=== PATIENT | female | born 1930 | race Hispanic/Latino ===

== ENCOUNTER 2016-10-10 06:30 | Emergency (ER) | payer MEDICARE ==
[2016-10-10 06:30] VITALS: BMI 17.2
[2016-10-10 06:54] VITALS: TEMP 98; O2SAT 96
[2016-10-10] MEDS ORDERED: Iohexol 240 (50 ml) ONE (07:42)
--- NOTE | 2016-10-10 07:53 | C.PDOC ---
History Of Present Illness 86-year-old female, presents to the emergency department with complaints of dysfunctional peg tube. Patient reports her peg tube came out at 02:00 this morning. Last use late evening. No other associated symptoms. All other Hx limited due to dementia. POOR HISTORIAN DUE TO DEMENTIA PS TUBE CAME OUT @ 0200, LAST USE LATE EVENING. NO OTHER ASSOC SX EXAM NAD NONTOXIC ABD +PEG OS, NO FLUID DC NONTEND. ABD NONTEND SOFT NO R/G NEURO AO2, DEMENTIA Time Seen by Provider: 10/10/16 07:11 Chief Complaint (Nursing): Medical Clearance History Per: Patient History/Exam Limitations: no limitations Onset/Duration Of Symptoms: Days Current Symptoms Are (Timing): Still Present Severity: Moderate Past Medical History Reviewed: Historical Data, Nursing Documentation, Vital Signs Vital Signs: Last Vital Signs Temp 98 F 10/10/16 06:48 Pulse 94 H 10/10/16 06:48 Resp 14 10/10/16 06:48 BP 166/81 H 10/10/16 06:48 Pulse Ox 96 10/10/16 08:08 - Medical History PMH: Anxiety, Arthritis, Bronchitis, CAD, Cardia Arrhythmia, CHF, COPD, Diabetes , GERD (esophageal stricture), HTN, Hypercholesterolemia, Osteoporosis, Pneumonia, Rheumatoid Arthritis Denies: Hepatitis, HIV, Chronic Kidney Disease, Seizures, Sexually Transmitted Disease Surgical History: CABG (12/16/1991), Carotid Endarterectomy (06/13/05), Coronary Stent, Pacemaker - [facility] Procedures CHANGE OTHER DEVICE IN ABDOMINAL WALL, EXTERNAL APPROACH (08/03/15) CONTR CEREBR ARTERIOGRAM (06/13/05) CONTRAST AORTOGRAM (06/13/05) CONTRAST ARTERIOGRAM NEC (05/23/12) CORONAR ARTERIOGR-2 CATH (05/23/12) ENDOSC POLYPECTOMY OF LG INTEST (06/28/14) ENTERAL INFUSION OF CONCENTRATED NUT. SUBSTANCES (10/01/14) HEAD & NECK ENDARTER NEC (06/13/05) INJECT ANTICOAGULANT (06/13/05) INSERT PACE, SINGL HAYLEY IN CHEST SUBCU/FASCIA, OPEN (03/05/16) INSERTION OF ENDOTRACHEAL AIRWAY INTO TRACHEA, VIA OPENING (03/05/16) INSERTION OF INFUSION DEV INTO SUP VENA CAVA, PERC APPROACH (03/05/16) INSERTION OF ONE VASCULAR STENT (05/23/12) INSERTION OF PACEMAKER LEAD INTO R VENTRICLE, PERC APPROACH (03/05/16) INSRT OF DRUG-ELUTING CORON ARTERY STENTS(S) (05/23/12) INTRODUCTION OF NUTRITIONAL INTO UP GI, VIA OPENING (03/05/16) INTRODUCTION OF VASOPRESSOR INTO CENTRAL VEIN, PERC APPROACH (03/05/16) LEFT HEART CARDIAC CATH (05/23/12) LT HEART ANGIOCARDIOGRAM (05/23/12) PACKED CELL TRANSFUSION (06/28/14) PERCUTANEOUS TRANSLUMINAL CORONARY ANGIOPLASTY [PTCA] (05/23/12) PERCUTANEOUS [ENDOSCOPIC] GASTROSTOMY [PEG] (10/01/14) PERFORMANCE OF CARDIAC PACING, CONTINUOUS (03/05/16) PROCEDURE ON SINGLE VESSEL (05/23/12) REPLACE GASTROSTOMY TUBE (02/09/15) RESPIRATORY VENTILATION, 24-96 CONSECUTIVE HOURS (03/05/16) Family History: States: Unknown Family Hx - Social History Hx Tobacco Use: No Hx Alcohol Use: No Hx Substance Use: No - Immunization History Hx Tetanus Toxoid Vaccination: No Hx Influenza Vaccination: No Hx Pneumococcal Vaccination: No Review Of Systems Except As Marked, All Systems Reviewed And Found Negative. Constitutional: Negative for: Fever, Chills Respiratory: Negative for: Shortness of Breath Gastrointestinal: Negative for: Vomiting Skin: Negative for: Rash Neurological: Negative for: Headache Physical Exam - Physical Exam Appears: Non-toxic, No Acute Distress Skin: Warm, Dry, No Rash Head: Atraumatic, Normacephalic Eye(s): bilateral: Normal Inspection, PERRL Nose: Normal Oral Mucosa: Moist Lips: Normal Appearing Neck: Normal ROM Cardiovascular: Rhythm Regular Respiratory: Normal Breath Sounds, No Accessory Muscle Use Gastrointestinal/Abdominal: No Tenderness, No Guarding, No Rebound, Other (+PEG OS, NO FLUID DC NONTEND. ABD NONTEND SOFT NO R/G) Extremity: Normal ROM Neurological/Psych: Other (DEMENTIA. AOX2) ED Course And Treatment O2 Sat by Pulse Oximetry: 96 - Other Rad ABD X-Ray: Interpreted by Me (+GASTROGRAFFIN IN STOMACH) Progress - Re-Evaluation Re-evaluation Note: 10/10/16 08:08 PER OLD ER RECORDS, REPLACED W TONYA 20F IN 05/2016 - Data Reviewed Data Reviewed: Diagnostic imaging, Old records Disposition Counseled Patient/Family Regarding: Studies Performed, Diagnosis, Need For Followup - Disposition Referrals: Luis Manuel Patel MD [Staff Provider] - Disposition: HOME/ ROUTINE Disposition Time: 08:07 Condition: IMPROVED Instructions: How to Use and Care for Your PEG Tube (ED) - Clinical Impression Clinical Impression: PEG tube malfunction - Scribe Statement The provider has reviewed the documentation as recorded by the Scribe Christiana Lorenzo All medical record entries made by the Scribe were at my direction and personally dictated by me. I have reviewed the chart and agree that the record accurately reflects my personal performance of the history, physical exam, medical decision making, and the department course for this patient. I have also personally directed, reviewed, and agree with the discharge instructions and disposition. PROCEDURES - Feeding Tube Replacement Type of Tube: gastrostomy Insertion Site Prior to Procedure: clean Tube Used for Reinsertion: Gregory (20) Armenian Tube Size (F): 20 Balloon Size (mis): 10 Verification of Placement: KUB, gastrografin injection Tube Secured by: tape/dressing Patient Tolerated Procedure: well
[2016-10-10 08:27] VITALS: BP 160/78; PULSE 84; RESP 18
[2016-10-10] MEDS ORDERED: Iohexol 240 (50 ml) PO ONE (08:32)
--- NOTE | 2016-10-10 09:17 | RAD ---
HISTORY: peg replace COMPARISON: No prior. FINDINGS: BOWEL: The gastrostomy tube terminates in the gastric antrum. Contrast material is noted in the stomach. No evidence of extraluminal contrast. Bowel gas pattern is nonspecific. BONES: There is diffuse bone demineralization. 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 OTHER FINDINGS: Atherosclerotic vascular calcifications are present. IMPRESSION: Optimal position of the gastrostomy tube terminating in the gastric antrum.
== END 2016-10-10 09:14 | disposition home or self-care (01) ==
LOC: C.ER 06:30
DX: K94.23 Gastrostomy malfunction (principal); Y83.8 Other surgical procedures as the cause of abnormal reaction of the patient, or of later complication, without mention of misadventure at the time of the procedure

== ENCOUNTER 2016-10-11 22:00 | Emergency (ER) | payer MEDICARE ==
[2016-10-11 22:00] VITALS: BMI 17.2
[2016-10-11 22:26] VITALS: TEMP 97.7
--- NOTE | 2016-10-11 23:15 | C.PDOC ---
Time Seen by Provider: 10/11/16 23:05 Chief Complaint (Nursing): Medical Clearance Past Medical History Vital Signs: Last Vital Signs Temp 97.7 F 10/11/16 22:24 Pulse 80 10/11/16 22:24 Resp 18 10/11/16 22:24 BP 148/73 10/11/16 22:24 Pulse Ox 98 10/11/16 22:24 - Medical History PMH: Anxiety, Arthritis, Bronchitis, CAD, Cardia Arrhythmia, CHF, COPD, Diabetes , GERD (esophageal stricture), HTN, Hypercholesterolemia, Osteoporosis, Pneumonia, Rheumatoid Arthritis Denies: Hepatitis, HIV, Chronic Kidney Disease, Seizures, Sexually Transmitted Disease Surgical History: CABG (12/16/1991), Carotid Endarterectomy (06/13/05), Coronary Stent, Pacemaker - [facility] Procedures CHANGE OTHER DEVICE IN ABDOMINAL WALL, EXTERNAL APPROACH (08/03/15) CONTR CEREBR ARTERIOGRAM (06/13/05) CONTRAST AORTOGRAM (06/13/05) CONTRAST ARTERIOGRAM NEC (05/23/12) CORONAR ARTERIOGR-2 CATH (05/23/12) ENDOSC POLYPECTOMY OF LG INTEST (06/28/14) ENTERAL INFUSION OF CONCENTRATED NUT. SUBSTANCES (10/01/14) HEAD & NECK ENDARTER NEC (06/13/05) INJECT ANTICOAGULANT (06/13/05) INSERT PACE, SINGL HAYLEY IN CHEST SUBCU/FASCIA, OPEN (03/05/16) INSERTION OF ENDOTRACHEAL AIRWAY INTO TRACHEA, VIA OPENING (03/05/16) INSERTION OF INFUSION DEV INTO SUP VENA CAVA, PERC APPROACH (03/05/16) INSERTION OF ONE VASCULAR STENT (05/23/12) INSERTION OF PACEMAKER LEAD INTO R VENTRICLE, PERC APPROACH (03/05/16) INSRT OF DRUG-ELUTING CORON ARTERY STENTS(S) (05/23/12) INTRODUCTION OF NUTRITIONAL INTO UP GI, VIA OPENING (03/05/16) INTRODUCTION OF VASOPRESSOR INTO CENTRAL VEIN, PERC APPROACH (03/05/16) LEFT HEART CARDIAC CATH (05/23/12) LT HEART ANGIOCARDIOGRAM (05/23/12) PACKED CELL TRANSFUSION (06/28/14) PERCUTANEOUS TRANSLUMINAL CORONARY ANGIOPLASTY [PTCA] (05/23/12) PERCUTANEOUS [ENDOSCOPIC] GASTROSTOMY [PEG] (10/01/14) PERFORMANCE OF CARDIAC PACING, CONTINUOUS (03/05/16) PROCEDURE ON SINGLE VESSEL (05/23/12) REPLACE GASTROSTOMY TUBE (02/09/15) RESPIRATORY VENTILATION, 24-96 CONSECUTIVE HOURS (03/05/16) Family History: States: Unknown Family Hx - Social History Hx Tobacco Use: No Hx Alcohol Use: No Hx Substance Use: No - Immunization History Hx Tetanus Toxoid Vaccination: No Hx Influenza Vaccination: No Hx Pneumococcal Vaccination: No ED Course And Treatment O2 Sat by Pulse Oximetry: 98
--- NOTE | 2016-10-11 23:16 | C.PDOC ---
History Of Present Illness Patient is a 86 year old female who presented to the ER with complaints of dysfunctional PEG tube. Patient states she visited the ER yesterday for similar complaint and peg tube was replaced. Denies nausea, vomiting, diarrhea, or any other associated symptoms. The tube remains in place with leaking around it. Time Seen by Provider: 10/11/16 23:05 Chief Complaint (Nursing): Medical Clearance History Per: Patient History/Exam Limitations: no limitations Onset/Duration Of Symptoms: Hrs Current Symptoms Are (Timing): Still Present Reports Recently: Seen In ED (Peg tube replacement) Past Medical History Reviewed: Historical Data, Nursing Documentation, Vital Signs Vital Signs: Last Vital Signs Temp 97.7 F 10/11/16 22:24 Pulse 80 10/11/16 22:24 Resp 18 10/11/16 22:24 BP 148/73 10/11/16 22:24 Pulse Ox 98 10/11/16 23:34 - Medical History PMH: Anxiety, Arthritis, Bronchitis, CAD, Cardia Arrhythmia, CHF, COPD, Diabetes , GERD (esophageal stricture), HTN, Hypercholesterolemia, Osteoporosis, Pneumonia, Rheumatoid Arthritis Denies: Hepatitis, HIV, Chronic Kidney Disease, Seizures, Sexually Transmitted Disease Surgical History: CABG (12/16/1991), Carotid Endarterectomy (06/13/05), Coronary Stent, Pacemaker - [facility] Procedures CHANGE OTHER DEVICE IN ABDOMINAL WALL, EXTERNAL APPROACH (08/03/15) CONTR CEREBR ARTERIOGRAM (06/13/05) CONTRAST AORTOGRAM (06/13/05) CONTRAST ARTERIOGRAM NEC (05/23/12) CORONAR ARTERIOGR-2 CATH (05/23/12) ENDOSC POLYPECTOMY OF LG INTEST (06/28/14) ENTERAL INFUSION OF CONCENTRATED NUT. SUBSTANCES (10/01/14) HEAD & NECK ENDARTER NEC (06/13/05) INJECT ANTICOAGULANT (06/13/05) INSERT PACE, SINGL HAYLEY IN CHEST SUBCU/FASCIA, OPEN (03/05/16) INSERTION OF ENDOTRACHEAL AIRWAY INTO TRACHEA, VIA OPENING (03/05/16) INSERTION OF INFUSION DEV INTO SUP VENA CAVA, PERC APPROACH (03/05/16) INSERTION OF ONE VASCULAR STENT (05/23/12) INSERTION OF PACEMAKER LEAD INTO R VENTRICLE, PERC APPROACH (03/05/16) INSRT OF DRUG-ELUTING CORON ARTERY STENTS(S) (05/23/12) INTRODUCTION OF NUTRITIONAL INTO UP GI, VIA OPENING (03/05/16) INTRODUCTION OF VASOPRESSOR INTO CENTRAL VEIN, PERC APPROACH (03/05/16) LEFT HEART CARDIAC CATH (05/23/12) LT HEART ANGIOCARDIOGRAM (05/23/12) PACKED CELL TRANSFUSION (06/28/14) PERCUTANEOUS TRANSLUMINAL CORONARY ANGIOPLASTY [PTCA] (05/23/12) PERCUTANEOUS [ENDOSCOPIC] GASTROSTOMY [PEG] (10/01/14) PERFORMANCE OF CARDIAC PACING, CONTINUOUS (03/05/16) PROCEDURE ON SINGLE VESSEL (05/23/12) REPLACE GASTROSTOMY TUBE (02/09/15) RESPIRATORY VENTILATION, 24-96 CONSECUTIVE HOURS (03/05/16) Family History: States: Unknown Family Hx - Social History Hx Tobacco Use: No Hx Alcohol Use: No Hx Substance Use: No - Immunization History Hx Tetanus Toxoid Vaccination: No Hx Influenza Vaccination: No Hx Pneumococcal Vaccination: No Review Of Systems Constitutional: Negative for: Fever, Chills Cardiovascular: Negative for: Chest Pain Respiratory: Negative for: Cough, Shortness of Breath, Wheezing Gastrointestinal: Negative for: Nausea, Vomiting, Diarrhea Physical Exam - Physical Exam Appears: Well, Non-toxic Skin: Normal Color, Warm, Dry Head: Atraumatic, Normacephalic Oral Mucosa: Moist Cardiovascular: Rhythm Regular Respiratory: Normal Breath Sounds, No Rales, No Rhonchi, No Wheezing Gastrointestinal/Abdominal: Soft, No Tenderness, No Guarding, No Rebound, Other ((+) PEG tube) Neurological/Psych: Oriented x3, Normal Speech, Normal Cognition ED Course And Treatment O2 Sat by Pulse Oximetry: 98 Progress Note: Peg tube removed easily and balloon present without sufficient air. Tube reinserted and 10 ml of sterile water instilled. Tube now secure without significant drainage around it. Disposition - Disposition Disposition: HOME/ ROUTINE Disposition Time: 23:15 Condition: IMPROVED Instructions: How to Use and Care for Your PEG Tube (ED) - Clinical Impression Clinical Impression: Gastrostomy tube dysfunction - Scribe Statement The provider has reviewed the documentation as recorded by the Scribe Alonzo Hinton All medical record entries made by the Scribe were at my direction and personally dictated by me. I have reviewed the chart and agree that the record accurately reflects my personal performance of the history, physical exam, medical decision making, and the department course for this patient. I have also personally directed, reviewed, and agree with the discharge instructions and disposition.
[2016-10-12 00:33] VITALS: BP 175/84; PULSE 100; RESP 20; O2SAT 97
== END 2016-10-12 00:59 | disposition home or self-care (01) ==
LOC: C.ER 22:00
DX: K94.23 Gastrostomy malfunction (principal)

== ENCOUNTER 2016-10-24 01:12 | Emergency (ER) | payer MEDICARE ==
[2016-10-24 01:12] VITALS: BMI 17.2
[2016-10-24 01:40] VITALS: BP 172/80; PULSE 86; TEMP 98; O2SAT 99
--- NOTE | 2016-10-24 01:58 | C.PDOC ---
History Of Present Illness 86 year old patient is brought to the ED from a custodial for gtube not functioning. Patient has been here prior to the same complaint. Patient denies any pain or other complaints at this time. Time Seen by Provider: 10/24/16 01:46 Chief Complaint (Nursing): GI Problem History Per: Patient History/Exam Limitations: no limitations Onset/Duration Of Symptoms: Other Current Symptoms Are (Timing): Still Present Severity: None Pain Scale Rating Of: 0 Recent travel outside of the [place]: No Additional History Per: Prior Records Past Medical History Reviewed: Historical Data, Nursing Documentation, Vital Signs Vital Signs: Last Vital Signs Temp 98 F 10/24/16 01:35 Pulse 86 10/24/16 01:35 Resp 16 10/24/16 02:42 BP 172/80 H 10/24/16 01:35 Pulse Ox 99 10/24/16 04:37 - Medical History PMH: Anxiety, Arthritis, Bronchitis, CAD, Cardia Arrhythmia, CHF, COPD, Diabetes , GERD (esophageal stricture), HTN, Hypercholesterolemia, Osteoporosis, Pneumonia, Rheumatoid Arthritis Surgical History: CABG (12/16/1991), Carotid Endarterectomy (06/13/05), Coronary Stent, Pacemaker - [facility] Procedures CHANGE OTHER DEVICE IN ABDOMINAL WALL, EXTERNAL APPROACH (08/03/15) CONTR CEREBR ARTERIOGRAM (06/13/05) CONTRAST AORTOGRAM (06/13/05) CONTRAST ARTERIOGRAM NEC (05/23/12) CORONAR ARTERIOGR-2 CATH (05/23/12) ENDOSC POLYPECTOMY OF LG INTEST (06/28/14) ENTERAL INFUSION OF CONCENTRATED NUT. SUBSTANCES (10/01/14) HEAD & NECK ENDARTER NEC (06/13/05) INJECT ANTICOAGULANT (06/13/05) INSERT PACE, SINGL HAYLEY IN CHEST SUBCU/FASCIA, OPEN (03/05/16) INSERTION OF ENDOTRACHEAL AIRWAY INTO TRACHEA, VIA OPENING (03/05/16) INSERTION OF INFUSION DEV INTO SUP VENA CAVA, PERC APPROACH (03/05/16) INSERTION OF ONE VASCULAR STENT (05/23/12) INSERTION OF PACEMAKER LEAD INTO R VENTRICLE, PERC APPROACH (03/05/16) INSRT OF DRUG-ELUTING CORON ARTERY STENTS(S) (05/23/12) INTRODUCTION OF NUTRITIONAL INTO UP GI, VIA OPENING (03/05/16) INTRODUCTION OF VASOPRESSOR INTO CENTRAL VEIN, PERC APPROACH (03/05/16) LEFT HEART CARDIAC CATH (05/23/12) LT HEART ANGIOCARDIOGRAM (05/23/12) PACKED CELL TRANSFUSION (06/28/14) PERCUTANEOUS TRANSLUMINAL CORONARY ANGIOPLASTY [PTCA] (05/23/12) PERCUTANEOUS [ENDOSCOPIC] GASTROSTOMY [PEG] (10/01/14) PERFORMANCE OF CARDIAC PACING, CONTINUOUS (03/05/16) PROCEDURE ON SINGLE VESSEL (05/23/12) REPLACE GASTROSTOMY TUBE (02/09/15) RESPIRATORY VENTILATION, 24-96 CONSECUTIVE HOURS (03/05/16) Family History: States: Unknown Family Hx - Social History Hx Tobacco Use: No Hx Alcohol Use: No Hx Substance Use: No - Immunization History Hx Tetanus Toxoid Vaccination: No Hx Influenza Vaccination: No Hx Pneumococcal Vaccination: No Review Of Systems Except As Marked, All Systems Reviewed And Found Negative. Constitutional: Negative for: Fever Gastrointestinal: Negative for: Vomiting, Abdominal Pain, Diarrhea Physical Exam - Physical Exam Appears: Non-toxic, No Acute Distress, Other (pleasant, inappropriate) Skin: Warm, Dry Head: Atraumatic, Normacephalic Eye(s): bilateral: Normal Inspection, PERRL, EOMI Neck: Normal ROM, Supple Chest: Symmetrical Cardiovascular: Rhythm Regular Respiratory: Normal Breath Sounds, No Rales, No Rhonchi, No Wheezing Gastrointestinal/Abdominal: Soft, No Tenderness, No Guarding, No Rebound, No Other (Gtube (genao) in LUQ which flushes normally) Back: Normal Inspection, No CVA Tenderness Extremity: Normal ROM Neurological/Psych: Oriented x3, Normal Speech, Normal Cognition Gait: Steady ED Course And Treatment O2 Sat by Pulse Oximetry: 99 (RA) Pulse Ox Interpretation: Normal Medical Decision Making Medical Decision Making: many prior evals for same. There is a genao cath in the gastrostomy tube location- pending PEG tube replacement. PEG tube functioning normally- no acute intervention needed. Disposition Doctor Will See Patient In The: Office Counseled Patient/Family Regarding: Studies Performed, Diagnosis - Disposition Referrals: Luis Manuel Patel MD [Staff Provider] - Disposition: HOME/ ROUTINE Disposition Time: 01:57 Condition: GOOD Additional Instructions: a proper feeding tube should be swapped for the genao catheter as per GI normally functioning feeding tube in place. Instructions: Tube Feeding (GEN) - Clinical Impression Clinical Impression: Complication of feeding tube - Scribe Statement The provider has reviewed the documentation as recorded by the Scribe Nadiya Dennis Provider Attestation: All medical record entries made by the Scribe were at my direction and personally dictated by me. I have reviewed the chart and agree that the record accurately reflects my personal performance of the history, physical exam, medical decision making, and the department course for this patient. I have also personally directed, reviewed, and agree with the discharge instructions and disposition.
[2016-10-24 02:47] VITALS: RESP 16
== END 2016-10-24 03:18 | disposition home or self-care (01) ==
LOC: C.ER 01:12
DX: K94.23 Gastrostomy malfunction (principal); Y84.8 Other medical procedures as the cause of abnormal reaction of the patient, or of later complication, without mention of misadventure at the time of the procedure

== ENCOUNTER 2016-11-17 15:45 | Emergency (ER) | payer MEDICARE ==
[2016-11-17 15:47] VITALS: BMI 17.2
[2016-11-17 15:56] VITALS: TEMP 98
--- NOTE | 2016-11-17 16:49 | C.PDOC ---
History Of Present Illness 86 year old female presents to the ED with complaints of leaking around her G- tube since yesterday. Patient states the G-tube was recently placed by Dr. Washington and denies abdominal pain, fever, or any other complaints at this time. Time Seen by Provider: 11/17/16 16:01 Chief Complaint (Nursing): GI Problem History Per: Patient History/Exam Limitations: no limitations Onset/Duration Of Symptoms: Days Current Symptoms Are (Timing): Still Present Severity: Mild Past Medical History Reviewed: Historical Data, Nursing Documentation, Vital Signs Vital Signs: Last Vital Signs Temp 98 F 11/17/16 15:53 Pulse 82 11/17/16 17:58 Resp 18 11/17/16 17:58 BP 168/86 H 11/17/16 17:58 Pulse Ox 99 11/17/16 17:58 - Medical History PMH: Anxiety, Arthritis, Bronchitis, CAD, Cardia Arrhythmia, CHF, COPD, Diabetes , GERD (esophageal stricture), HTN, Hypercholesterolemia, Osteoporosis, Pneumonia, Rheumatoid Arthritis Surgical History: CABG (12/16/1991), Carotid Endarterectomy (06/13/05), Coronary Stent, Pacemaker - [facility] Procedures CHANGE OTHER DEVICE IN ABDOMINAL WALL, EXTERNAL APPROACH (08/03/15) CONTR CEREBR ARTERIOGRAM (06/13/05) CONTRAST AORTOGRAM (06/13/05) CONTRAST ARTERIOGRAM NEC (05/23/12) CORONAR ARTERIOGR-2 CATH (05/23/12) ENDOSC POLYPECTOMY OF LG INTEST (06/28/14) ENTERAL INFUSION OF CONCENTRATED NUT. SUBSTANCES (10/01/14) HEAD & NECK ENDARTER NEC (06/13/05) INJECT ANTICOAGULANT (06/13/05) INSERT PACE, SINGL HAYLEY IN CHEST SUBCU/FASCIA, OPEN (03/05/16) INSERTION OF ENDOTRACHEAL AIRWAY INTO TRACHEA, VIA OPENING (03/05/16) INSERTION OF INFUSION DEV INTO SUP VENA CAVA, PERC APPROACH (03/05/16) INSERTION OF ONE VASCULAR STENT (05/23/12) INSERTION OF PACEMAKER LEAD INTO R VENTRICLE, PERC APPROACH (03/05/16) INSRT OF DRUG-ELUTING CORON ARTERY STENTS(S) (05/23/12) INTRODUCTION OF NUTRITIONAL INTO UP GI, VIA OPENING (03/05/16) INTRODUCTION OF VASOPRESSOR INTO CENTRAL VEIN, PERC APPROACH (03/05/16) LEFT HEART CARDIAC CATH (05/23/12) LT HEART ANGIOCARDIOGRAM (05/23/12) PACKED CELL TRANSFUSION (06/28/14) PERCUTANEOUS TRANSLUMINAL CORONARY ANGIOPLASTY [PTCA] (05/23/12) PERCUTANEOUS [ENDOSCOPIC] GASTROSTOMY [PEG] (10/01/14) PERFORMANCE OF CARDIAC PACING, CONTINUOUS (03/05/16) PROCEDURE ON SINGLE VESSEL (05/23/12) REPLACE GASTROSTOMY TUBE (02/09/15) RESPIRATORY VENTILATION, 24-96 CONSECUTIVE HOURS (03/05/16) Family History: States: Unknown Family Hx - Social History Hx Tobacco Use: No Hx Alcohol Use: No Hx Substance Use: No - Immunization History Hx Tetanus Toxoid Vaccination: No Hx Influenza Vaccination: No Hx Pneumococcal Vaccination: No Review Of Systems Except As Marked, All Systems Reviewed And Found Negative. Constitutional: Negative for: Fever, Chills Gastrointestinal: Positive for: Other (+Leaking around g-tube). Negative for: Nausea, Vomiting, Abdominal Pain Skin: Negative for: Rash Physical Exam - Physical Exam Appears: Non-toxic, No Acute Distress Skin: Normal Color, Warm, Dry Head: Atraumatic, Normacephalic Eye(s): bilateral: Normal Inspection Oral Mucosa: Moist Chest: Symmetrical, No Deformity Cardiovascular: Rhythm Regular, No Murmur Respiratory: Normal Breath Sounds, No Accessory Muscle Use, No Rales, No Rhonchi , No Wheezing Gastrointestinal/Abdominal: Soft, No Tenderness, No Distention, No Guarding, No Rebound, Other (+Mild leaking around g-tube. + Erythema around the stoma.) Extremity: Normal ROM Neurological/Psych: Oriented x3, Normal Speech, Normal Cognition ED Course And Treatment O2 Sat by Pulse Oximetry: 96 (Room air) Pulse Ox Interpretation: Normal Medical Decision Making Medical Decision Making: normal G-tube fxn, flushes properly, no leak d/w Dr. Renetta Rollins: tube placed by Dr. Rafy Washington- MACK due to achalasia but Dr. Mercado is following GI Many prior evals for same- Disposition Doctor Will See Patient In The: Office Counseled Patient/Family Regarding: Studies Performed, Diagnosis - Disposition Referrals: Luis Manuel Patel MD [Staff Provider] - Chris العلي MD [Staff Provider] - Disposition: HOME/ ROUTINE Disposition Time: 16:49 Condition: GOOD Additional Instructions: your G-tube is functioning normally. Please follow-up with Dr. Patel or Dr. العلي as needed. Instructions: Percutaneous Endoscopic Gastrostomy Insertion (GEN), How to Use and Care for Your PEG Tube (ED) - Clinical Impression Clinical Impression: Gastrostomy tube dysfunction - Scribe Statement The provider has reviewed the documentation as recorded by the Scribe Tomas Oneill. Provider Attestation: All medical record entries made by the Scribe were at my direction and personally dictated by me. I have reviewed the chart and agree that the record accurately reflects my personal performance of the history, physical exam, medical decision making, and the department course for this patient. I have also personally directed, reviewed, and agree with the discharge instructions and disposition.
[2016-11-17 17:59] VITALS: BP 168/86; PULSE 82; RESP 18
[2016-11-17 18:25] VITALS: O2SAT 96
== END 2016-11-17 18:14 | disposition home or self-care (01) ==
LOC: C.ER 15:45
DX: K94.23 Gastrostomy malfunction (principal)

== ENCOUNTER 2017-01-24 21:19 | Inpatient (IN) | payer MEDICARE ==
[2017-01-24 21:19] VITALS: BMI 17.2
--- NOTE | 2017-01-24 21:30 | C.PDOC ---
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 Patient denies SOB, nausea, or vomiting. Chief Complaint (Nursing): Chest Pain History Per: Patient History/Exam Limitations: no limitations Onset/Duration Of Symptoms: Hrs (1) Current Symptoms Are (Timing): Still Present Associated Symptoms: denies: Nausea, Other (SOB, Vomiting) Modifying Factors: None Exacerbating Factors: None Alleviating Factors: None Recent travel outside of the [place]: No Past Medical History Reviewed: Historical Data, Nursing Documentation, Vital Signs Vital Signs: Last Vital Signs Temp 98 F 01/24/17 21:25 Pulse 84 01/24/17 21:25 Resp 20 01/24/17 21:25 BP 122/59 L 01/24/17 21:25 Pulse Ox 97 01/24/17 22:43 - Medical History PMH: Anxiety, Arthritis, Bronchitis, CAD, Cardia Arrhythmia, CHF, COPD, Diabetes , GERD (esophageal stricture), HTN, Hypercholesterolemia, Osteoporosis, Pneumonia, Rheumatoid Arthritis Surgical History: CABG (12/16/1991), Carotid Endarterectomy (06/13/05), Coronary Stent, Pacemaker - [facility] Procedures CHANGE OTHER DEVICE IN ABDOMINAL WALL, EXTERNAL APPROACH (08/03/15) CONTR CEREBR ARTERIOGRAM (06/13/05) CONTRAST AORTOGRAM (06/13/05) CONTRAST ARTERIOGRAM NEC (05/23/12) CORONAR ARTERIOGR-2 CATH (05/23/12) ENDOSC POLYPECTOMY OF LG INTEST (06/28/14) ENTERAL INFUSION OF CONCENTRATED NUT. SUBSTANCES (10/01/14) HEAD & NECK ENDARTER NEC (06/13/05) INJECT ANTICOAGULANT (06/13/05) INSERT PACE, SINGL HAYLEY IN CHEST SUBCU/FASCIA, OPEN (03/05/16) INSERTION OF ENDOTRACHEAL AIRWAY INTO TRACHEA, VIA OPENING (03/05/16) INSERTION OF INFUSION DEV INTO SUP VENA CAVA, PERC APPROACH (03/05/16) INSERTION OF ONE VASCULAR STENT (05/23/12) INSERTION OF PACEMAKER LEAD INTO R VENTRICLE, PERC APPROACH (03/05/16) INSRT OF DRUG-ELUTING CORON ARTERY STENTS(S) (05/23/12) INTRODUCTION OF NUTRITIONAL INTO UP GI, VIA OPENING (03/05/16) INTRODUCTION OF VASOPRESSOR INTO CENTRAL VEIN, PERC APPROACH (03/05/16) LEFT HEART CARDIAC CATH (05/23/12) LT HEART ANGIOCARDIOGRAM (05/23/12) PACKED CELL TRANSFUSION (06/28/14) PERCUTANEOUS TRANSLUMINAL CORONARY ANGIOPLASTY [PTCA] (05/23/12) PERCUTANEOUS [ENDOSCOPIC] GASTROSTOMY [PEG] (10/01/14) PERFORMANCE OF CARDIAC PACING, CONTINUOUS (03/05/16) PROCEDURE ON SINGLE VESSEL (05/23/12) REPLACE GASTROSTOMY TUBE (02/09/15) RESPIRATORY VENTILATION, 24-96 CONSECUTIVE HOURS (03/05/16) Family History: States: Unknown Family Hx - Social History Hx Tobacco Use: No Hx Alcohol Use: No Hx Substance Use: No - Immunization History Hx Tetanus Toxoid Vaccination: No Hx Influenza Vaccination: No Hx Pneumococcal Vaccination: No Review Of Systems Cardiovascular: Positive for: Chest Pain Respiratory: Negative for: Shortness of Breath Gastrointestinal: Negative for: Nausea, Vomiting Physical Exam - Physical Exam Appears: Non-toxic, No Acute Distress Skin: Normal Color, Warm, Dry Head: Atraumatic, Normacephalic Oral Mucosa: Moist Chest: Symmetrical, No Tenderness Cardiovascular: Rhythm Regular, No Murmur Respiratory: Normal Breath Sounds, No Rales, No Rhonchi, No Wheezing Gastrointestinal/Abdominal: Soft, No Tenderness, Other (Gastrostomy feeding tube in place on left side with redness around opening) Neurological/Psych: Oriented x3, Normal Speech, Normal Cognition ED Course And Treatment - Laboratory Results Result Diagrams: 01/24/17 22:08 01/24/17 22:08 ECG: Interpreted By Me, Viewed By Me ECG Rhythm: Sinus Rhythm, R BBB ECG Interpretation: Abnormal Interpretation Of ECG: NSR, CRBBB with secondary ST-T changes, no sifnificant change from old tracings of 06/28/2016 Rate From EC O2 Sat by Pulse Oximetry: 97 (Room air) Pulse Ox Interpretation: Normal - Radiology CXR: Interpreted by Me, Viewed By Me CXR Interpretation: Yes: No Acute Disease. No: Infiltrates Progress Note: Blood work, CXR, and EKG ordered. Disposition Discussed With : Luis Manuel Patel Counseled Patient/Family Regarding: Diagnosis - Disposition Disposition: HOSPITALIZED Disposition Time: 23:19 Condition: STABLE - POA Present On Arrival: None - Clinical Impression Clinical Impression: Chest pain - Scribe Statement The provider has reviewed the documentation as recorded by the Scribe Alonzo Hinton All medical record entries made by the Scribe were at my direction and personally dictated by me. I have reviewed the chart and agree that the record accurately reflects my personal performance of the history, physical exam, medical decision making, and the department course for this patient. I have also personally directed, reviewed, and agree with the discharge instructions and disposition.
[2017-01-24 22:10] LABS: BASO # 0.1 K/uL (0.0-0.2); BASO % 0.8 % (0.0-2.0); EOS # 0.2 K/uL (0.0-0.7); EOS % 1.5 % (0.0-4.0); LYMPH # 1.5 K/uL (1.0-4.3); LYMPH % 9.6 % (20.0-40.0); MEAN CELL VOLUME 89.8 fL (81.0-99.0); MEAN CORPUSCULAR HEMOGLOBIN 29.5 pg (27.0-31.0); MEAN CORPUSCULAR HGB CONC 32.9 g/dL (33.0-37.0); MEAN PLATELET VOLUME 7.5 fL (7.2-11.7); MONO # 1.1 K/uL (0.0-0.8); MONO % 6.8 % (0.0-10.0); PLATELET COUNT 288 K/uL (130-400); RED CELL DISTRIBUTION WIDTH 13.4 % (11.5-14.5); WHITE BLOOD COUNT 15.6 K/uL (4.8-10.8)
[2017-01-24 22:20] LABS: CHLORIDE 87 mmol/L (98-107)
[2017-01-24 22:21] LABS: POTASSIUM 3.9 mmol/L (3.6-5.2); SODIUM 128 mmol/L (132-148)
[2017-01-24 22:23] LABS: ALKALINE PHOSPHATASE 65 U/L (38-126); ALT/SGPT 23 U/L (9-52); AST/SGOT 17 U/L (14-36); BILIRUBIN,TOTAL 0.6 mg/dL (0.2-1.3); BLOOD UREA NITROGEN 33 mg/dL (7-17); CARBON DIOXIDE 27 mmol/L (22-30); GFR AFRICAN-AMERICAN > 60; TOTAL PROTEIN 7.3 g/dL (6.3-8.3)
[2017-01-24 22:24] LABS: CALCIUM 9.8 mg/dl (8.6-10.4); GLUCOSE,RANDOM 224 mg/dL (65-105)
[2017-01-24 22:55] LABS: NEUTROPHIL 88 % (50-75); TOTAL CELLS COUNTED 100
[2017-01-25 04:39] LABS: RBC URINE 1 /hpf (0-3); URINE BACTERIA OCC (<OCC); URINE BILIRUBIN NEGATIVE (NEGATIVE); URINE BLOOD NEGATIVE (NEGATIVE); URINE COLOR Yellow (YELLOW); URINE GLUCOSE (UA) 2+ mg/dL (Normal); URINE KETONE NEGATIVE (NEGATIVE); URINE LEUKOCYTE ESTERASE 1+ Leu/uL (Negative); URINE PROTEIN NEGATIVE (NEGATIVE); URINE UROBILINOGEN NORMAL mg/dL (0.2-1.0); WBC URINE 18 /hpf (0-5)
[2017-01-25] MEDS ORDERED: Sodium Chloride 0.9% 1,000 ML IV SCH (07:15)
[2017-01-25] MEDS ORDERED: Sodium Chloride 0.9% 1,000 ML ONE (07:49)
[2017-01-25] MEDS ORDERED: (Novolin R) Insulin Human Regular 100 units/ml vial ONE (07:49)
[2017-01-25] MEDS: (Novolin R) Insulin Human Regular 100 units/ml vial SC SCH ×4 (07:50→22:13)
--- NOTE | 2017-01-25 10:37 | RAD ---
PROCEDURE: CHEST RADIOGRAPH, 1 VIEW HISTORY: chest pain COMPARISON: 06/28/2016 FINDINGS: LUNGS: Diffuse increased interstitial lung markings. Right hilar prominence. Patchy consolidative changes at the left lung base. PLEURA: No pneumothorax or pleural fluid seen. CARDIOVASCULAR: Status post median sternotomy and CABG. Left-sided pacemaker. Calcification at the aortic knob. OSSEOUS STRUCTURES: Degenerative changes in the spine and shoulders. VISUALIZED UPPER ABDOMEN: Normal. OTHER FINDINGS: None. IMPRESSION: Diffuse increased interstitial lung markings. Right hilar prominence. Patchy consolidative changes at the left lung base.
[2017-01-25] MEDS: Miconazole 2% Cream(30 gm) TOP SCH ×2 (15:00→19:34)
--- NOTE | 2017-01-25 15:57 | CP.PCM.CON ---
<Gabriel Mosqueda - Last Filed: 01/25/17 15:48> History of Present Illness - History of Present Illness History of Present Illness: Consult Note for Dr. Nova Reason for Consult: Janna chest pain 85 y/o F with PMH of CAD s/p CABG, HTN, HLD, and COPD presented to the ED initially on 01/24/17 for chest pain x 1 hour. Pt states she felt a pain in the upper left side of her chest into her left shoulder and immediately came to the hospital. Pt describes the pain as a dull pressure and did not take any medication for it at the time. Upon admission, EKG showed NSR with RBBB. Troponins negative on admission. Currently, patient is resting comfortably in her bed. Pt is accompanied by her daughter at bedside. Pt states she has no chest pain at this time and pain went away by itself. Pt states she had been compliant with home medications. Pt denies any recent trauma or falls. Pt denies chest pain, shortness of breath, nausea, vomiting, diarrhea, constipation , dysuria, fevers, chills, syncope, numbness, tingling. PMH: CAD, HTN, HLD, and COPD Surgical Hx: CABG Medication: See MAR Allergies: macrolides, fluroquinolones, fish oil, benadryl. See Chart. Review of Systems - Constitutional Constitutional: absent: Fatigue, Fever - EENT Eyes: absent: Blurred Vision, Change in Vision - Cardiovascular Cardiovascular: Chest Pain. absent: Irregular Heart Rhythm - Respiratory Respiratory: absent: Cough, Dyspnea - Gastrointestinal Gastrointestinal: absent: Abdominal Pain, Diarrhea, Vomiting - Genitourinary Genitourinary: absent: Dysuria, Hematuria - Integumentary Integumentary: absent: Changing Lesions, New Lesions - Neurological Neurological: absent: Numbness, Syncope, Tingling Past Patient History - Infectious Disease Hx of Infectious Diseases: None - Past Medical History & Family History Past Medical History?: Yes - Past Social History Smoking Status: Former Smoker - CARDIAC Hx Cardia Arrhythmia: Yes Hx Congestive Heart Failure: Yes Hx Hypercholesterolemia: Yes Hx Hypertension: Yes Hx Pacemaker: Yes - PULMONARY Hx Bronchitis: Yes Hx Chronic Obstructive Pulmonary Disease (COPD): Yes Hx Pneumonia: Yes - NEUROLOGICAL Hx Seizures: No - HEENT Hx HEENT Problems: Yes Hx Cataracts: Yes (2000 Rt.Eye,2009Left Eye) - RENAL Hx Chronic Kidney Disease: No - ENDOCRINE/METABOLIC Hx Endocrine Disorders: Yes Hx Diabetes Mellitus Type 2: Yes - HEMATOLOGICAL/ONCOLOGICAL Hx Human Immunodeficiency Virus (HIV): No - INTEGUMENTARY Hx Dermatological Problems: No - MUSCULOSKELETAL/RHEUMATOLOGICAL Hx Arthritis: Yes Hx Falls: Yes Hx Osteoporosis: Yes Hx Rheumatoid Arthritis: Yes - GASTROINTESTINAL Hx Gastrointestinal Disorders: Yes Hx Colitis: Yes Hx Gastroesophageal Reflux: Yes HX Swallowing Problems: Yes (Achalasia. 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) Hx Coronary Stent: Yes - ANESTHESIA Hx Anesthesia: Yes Hx Anesthesia Reactions: Yes Hx Malignant Hyperthermia: No Meds Allergies/Adverse Reactions: Allergies Allergy/AdvReac Type Severity Reaction Status Date / Time azithromycin [From Zithromax] Allergy Verified 01/24/17 21:31 ciprofloxacin HCl Allergy Verified 01/24/17 21:31 [From Cipro] diphenhydramine HCl Allergy Verified 01/24/17 21:31 [From Benadryl] fish oil Allergy Verified 01/24/17 21:31 iodine Allergy Verified 01/24/17 21:31 losartan potassium Allergy Verified 01/24/17 21:31 [From Cozaar] metronidazole [From Flagyl] Allergy Verified 01/24/17 21:31 nitroglycerin Allergy Verified 01/24/17 21:31 Penicillins Allergy Verified 01/24/17 21:31 sulfamethoxazole Allergy Verified 01/24/17 21:31 [From Bactrim] trimethoprim [From Bactrim] Allergy Verified 11/17/16 15:58 zolpidem Allergy Verified 11/17/16 15:58 clopidogrel bisulfate AdvReac Verified 11/17/16 15:58 [From Plavix] - Medications Medications: Current Medications Famotidine (Pepcid) 20 mg PO BID [facility] Last Admin: 01/25/17 11:46 Dose: 20 mg Sodium Chloride (Sodium Chloride 0.9%) 1,000 mls @ 75 mls/hr IV .[id number] JUDY Stop: 01/25/17 20:34 Last Admin: 01/25/17 07:55 Dose: 75 mls/hr Insulin Human Regular (Novolin R) 0 unit SC ACHS [facility] PRN Reason: Protocol Last Admin: 01/25/17 07:50 Dose: 2 unit Metoprolol Tartrate (Lopressor) 50 mg PEG BID [facility] Last Admin: 01/25/17 11:46 Dose: 50 mg Miconazole Nitrate (Miconazole 2% Cream) 0 ea TOP BID [facility] Mirtazapine (Remeron) 15 mg PO HS [facility] Quetiapine Fumarate (Seroquel) 25 mg JT BID [facility] Rosuvastatin Calcium (Crestor) 20 mg PEG HS [facility] Sitagliptin Phosphate (Januvia) 25 mg PEG DAILY [facility] Last Admin: 01/25/17 11:46 Dose: 25 mg Physical Exam - Constitutional Appears: Non-toxic, No Acute Distress - Head Exam Head Exam: ATRAUMATIC, NORMAL INSPECTION, NORMOCEPHALIC - ENT Exam ENT Exam: Mucous Membranes Moist - Respiratory Exam Respiratory Exam: Clear to Auscultation Bilateral, NORMAL BREATHING PATTERN - Cardiovascular Exam Cardiovascular Exam: RRR, +S1, +S2 - GI/Abdominal Exam GI & Abdominal Exam: Normal Bowel Sounds, Soft. absent: Tenderness - Extremities Exam Extremities exam: Negative for: calf tenderness, pedal edema - Neurological Exam Neurological exam: Alert, Oriented x3 - Skin Skin Exam: Intact, Normal Color, Warm Results - Vital Signs Recent Vital Signs: Last Vital Signs Temp 98.2 F 01/25/17 10:05 Pulse 101 H 01/25/17 10:05 Resp 20 01/25/17 10:05 BP 172/82 H 01/25/17 10:05 Pulse Ox 95 01/25/17 10:05 - Labs Result Diagrams: 01/24/17 22:08 01/24/17 22:08 Labs: Laboratory Results - last 24 hr 01/25/17 01/25/17 01/25/17 02:34 04:30 07:34 POC Glucose (mg/dL) 248 H Total Creatine Kinase < 20 L CK-MB (Mass) 0.86 Troponin I, Quant < 0.0120 Urine Color Yellow Urine Clarity Hazy Urine pH 7.0 Ur Specific Purcell 1.012 Urine Protein Negative Urine Glucose (UA) 2+ H Urine Ketones Negative Urine Blood Negative Urine Nitrate Negative Urine Bilirubin Negative Urine Urobilinogen Normal Ur Leukocyte Esterase 1+ H Urine WBC (Auto) 18 H Urine RBC (Auto) 1 Ur Squamous Epith Cells < 1 Urine Bacteria Occ H Assessment & Plan (1) Chest pain Assessment and Plan: Troponins negative x 2 EKG NSR with RBBB Currently asymptomatic Pacemaker will be interrogated Continue current medical management Status: Acute <Tabby Nova - Last Filed: 03/02/17 07:38> Results - Vital Signs Recent Vital Signs: Last Vital Signs Temp 98.0 F 01/29/17 15:30 Pulse 82 01/29/17 15:30 Resp 20 01/29/17 15:30 BP 158/84 H 01/29/17 15:30 Pulse Ox 95 01/29/17 15:30 - Labs Result Diagrams: 01/27/17 14:07 01/27/17 14:07 Attending/Attestation - Attestation I have personally seen and examined this patient.: Yes I have fully participated in the care of the patient.: Yes I have reviewed all pertinent clinical information: Yes Notes (Text): 03/02/17 07:38 pt asymptomatic will interrogate ppm
--- NOTE | 2017-01-26 06:36 | CARD ---
APPROVED REPORT EKG Measurement Heart [id number] MA [id number] <Conclusion> Normal sinus rhythm Right bundle branch block Left ventricular hypertrophy with repolarization abnormality Inferior infarct, age undetermined Abnormal ECG
[2017-01-26] MEDS: (Novolin R) Insulin Human Regular 100 units/ml vial SC SCH ×4 (08:39→21:35)
[2017-01-26] MEDS: Miconazole 2% Cream(30 gm) TOP SCH ×2 (11:12→17:54)
--- NOTE | 2017-01-26 12:10 | CP.PCM.PN ---
<Gabriel Mosqueda - Last Filed: 01/26/17 12:08> Subjective - Date & Time of Evaluation Date of Evaluation: 01/26/17 Time of Evaluation: 12:08 - Subjective Subjective: Progress Note for Dr. Nova Pt seen and examined at bedside. Pt doing well overnight with no acute events. This morning pt states she feels well with no complaints. Denies CP, SOB, N/V/ D. Objective - Vital Signs/Intake and Output Vital Signs (last 24 hours): Temp Pulse Resp BP Pulse Ox 97.7 F 99 H 18 152/76 H 97 01/26/17 07:05 01/26/17 11:09 01/26/17 07:05 01/26/17 11:09 01/26/17 07:05 Intake and Output: 01/26/17 01/26/17 06:59 18:59 Intake Total 810 Balance 810 - Medications Medications: Current Medications Famotidine (Pepcid) 20 mg PO BID [facility] Last Admin: 01/26/17 11:14 Dose: 20 mg Heparin Sodium (Porcine) (Heparin) 5,000 units SC Q12 [facility] Last Admin: 01/26/17 11:11 Dose: 5,000 units Insulin Human Regular (Novolin R) 0 unit SC ACHS [facility] PRN Reason: Protocol Last Admin: 01/26/17 08:39 Dose: 1 unit Metoprolol Tartrate (Lopressor) 50 mg PEG BID [facility] Last Admin: 01/26/17 11:10 Dose: 50 mg Miconazole Nitrate (Miconazole 2% Cream) 0 ea TOP BID [facility] Last Admin: 01/26/17 11:12 Dose: 1 applic Mirtazapine (Remeron) 15 mg PO HS [facility] Last Admin: 01/25/17 21:29 Dose: 15 mg Quetiapine Fumarate (Seroquel) 25 mg JT BID [facility] Last Admin: 01/26/17 11:10 Dose: 25 mg Rosuvastatin Calcium (Crestor) 20 mg PEG HS [facility] Last Admin: 01/25/17 21:29 Dose: 20 mg Sitagliptin Phosphate (Januvia) 25 mg PEG DAILY [facility] Last Admin: 01/26/17 11:10 Dose: 25 mg - Constitutional Appears: Well, No Acute Distress - Head Exam Head Exam: ATRAUMATIC, NORMAL INSPECTION, NORMOCEPHALIC - Respiratory Exam Respiratory Exam: Clear to Ausculation Bilateral, NORMAL BREATHING PATTERN - Cardiovascular Exam Cardiovascular Exam: RRR, +S1, +S2 - GI/Abdominal Exam GI & Abdominal Exam: Soft, Normal Bowel Sounds. absent: Tenderness - Extremities Exam Extremities Exam: absent: Calf Tenderness, Pedal Edema - Neurological Exam Neurological Exam: Alert, Awake, Oriented x3 - Skin Skin Exam: Intact, Normal Color, Warm Assessment and Plan (1) Chest pain Assessment & Plan: Pacemaker interrogated No abnormal events, pacemaker working appropriately Continue current medical management Will sign off at this time Status: Acute <Tabby Nova - Last Filed: 03/02/17 07:39> Objective - Vital Signs/Intake and Output Vital Signs (last 24 hours): Temp Pulse Resp BP Pulse Ox 98.0 F 82 20 158/84 H 95 01/29/17 15:30 01/29/17 15:30 01/29/17 15:30 01/29/17 15:30 01/29/17 15:30 - Labs Labs: 01/27/17 14:07 01/27/17 14:07 Attending/Attestation - Attestation I have personally seen and examined this patient.: Yes I have fully participated in the care of the patient.: Yes I have reviewed all pertinent clinical information, including history, physical exam and plan: Yes Notes (Text): 03/02/17 07:39 ppm appr function no events will sign off call if needed
[2017-01-27 07:06] LABS: BASO # 0.1 K/uL (0.0-0.2); BASO % 0.6 % (0.0-2.0); EOS # 0.3 K/uL (0.0-0.7); EOS % 2.3 % (0.0-4.0); HEMATOCRIT 41.1 % (34.0-47.0); LYMPH # 1.1 K/uL (1.0-4.3); LYMPH % 9.4 % (20.0-40.0); MEAN CELL VOLUME 90.5 fL (81.0-99.0); MEAN CORPUSCULAR HEMOGLOBIN 29.9 pg (27.0-31.0); MEAN PLATELET VOLUME 7.5 fL (7.2-11.7); MONO # 0.9 K/uL (0.0-0.8); MONO % 8.2 % (0.0-10.0); PLATELET COUNT 346 K/uL (130-400); RED CELL DISTRIBUTION WIDTH 13.1 % (11.5-14.5); WHITE BLOOD COUNT 11.3 K/uL (4.8-10.8)
[2017-01-27 08:08] LABS: CHLORIDE 92 mmol/L (98-107); POTASSIUM 4.6 mmol/L (3.6-5.2); SODIUM 133 mmol/L (132-148)
[2017-01-27 08:10] LABS: ALB/GLOB RATIO 0.9 (1.0-2.1); AST/SGOT 20 U/L (14-36); BILIRUBIN,TOTAL 0.5 mg/dL (0.2-1.3); CARBON DIOXIDE 28 mmol/L (22-30); GFR AFRICAN-AMERICAN > 60; TOTAL PROTEIN 8.2 g/dL (6.3-8.3)
[2017-01-27 08:11] LABS: ALKALINE PHOSPHATASE 88 U/L (38-126); ALT/SGPT 22 U/L (9-52); BLOOD UREA NITROGEN 27 mg/dL (7-17); CALCIUM 10.4 mg/dl (8.6-10.4); GLUCOSE,RANDOM 214 mg/dL (65-105)
[2017-01-27] MEDS: (Novolin R) Insulin Human Regular 100 units/ml vial SC SCH ×3 (08:29→21:43)
[2017-01-27 09:42] LABS: EOSINOPHIL 1 % (0-4); NEUTROPHIL 89 % (50-75); TOTAL CELLS COUNTED 100
[2017-01-27] MEDS: Miconazole 2% Cream(30 gm) TOP SCH (10:30)
--- NOTE | 2017-01-27 11:23 | RAD ---
PROCEDURE: Radiographs of the pelvis. HISTORY: left hip pain, possible fracture COMPARISON: 10/10/2016. FINDINGS: BONES: The pelvic ring is intact. There is no acute displaced fracture. There is diffuse bone demineralization. . JOINTS: There is severe degenerative osteoarthrosis in the left hip joint with complete loss of joint space and marginal osteophytes. There is mild degenerative osteoarthrosis in the right hip joint. The sacroiliac joints are normal. OTHER FINDINGS: There atherosclerotic vascular calcifications. IMPRESSION: No acute displaced fracture or dislocation. Please note occult fractures cannot be excluded on plain radiographs. If there is a persistent clinical concern, an MRI of the hip may be performed for further evaluation. . 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
[2017-01-27 14:20] LABS: BASO # 0.1 K/uL (0.0-0.2); BASO % 0.9 % (0.0-2.0); EOS # 0.3 K/uL (0.0-0.7); EOS % 2.4 % (0.0-4.0); HEMATOCRIT 38.1 % (34.0-47.0); LYMPH # 1.7 K/uL (1.0-4.3); LYMPH % 15.9 % (20.0-40.0); MEAN CELL VOLUME 89.7 fL (81.0-99.0); MEAN CORPUSCULAR HEMOGLOBIN 29.8 pg (27.0-31.0); MEAN CORPUSCULAR HGB CONC 33.2 g/dL (33.0-37.0); MEAN PLATELET VOLUME 7.7 fL (7.2-11.7); MONO % 9.4 % (0.0-10.0); NRBC % 0.1 % (0.0-2.0); RED CELL DISTRIBUTION WIDTH 13.1 % (11.5-14.5); WHITE BLOOD COUNT 10.9 K/uL (4.8-10.8)
[2017-01-27 14:33] LABS: CHLORIDE 92 mmol/L (98-107); POTASSIUM 4.3 mmol/L (3.6-5.2); SODIUM 131 mmol/L (132-148)
[2017-01-27 14:36] LABS: BLOOD UREA NITROGEN 28 mg/dL (7-17); CALCIUM 10.1 mg/dl (8.6-10.4); CARBON DIOXIDE 27 mmol/L (22-30); GFR AFRICAN-AMERICAN > 60; GLUCOSE,RANDOM 192 mg/dL (65-105)
[2017-01-28] MEDS: (Novolin R) Insulin Human Regular 100 units/ml vial SC SCH ×4 (08:04→21:03)
[2017-01-28] MEDS: Miconazole 2% Cream(30 gm) TOP SCH ×2 (10:16→17:50)
--- NOTE | 2017-01-28 10:23 | CT ---
PROCEDURE: CT scan of the left hip without intravenous contrast. HISTORY: Possible occult fracture, left hip pain COMPARISON: Plain radiographs from 01/26/2017 TECHNIQUE: CT scan of the left hip was performed with contiguous 2.5 mm axial slices without administration of intravenous contrast. Coronal and sagittal reformatted images were obtained. FINDINGS: There is no acute displaced fracture or bone destruction. Bone alignment is normal. There is diffuse bone demineralization. There is severe degenerative osteoarthrosis in the left hip joint with near complete loss of joint space and extensive subarticular cystic changes with marginal osteophytes. The periarticular muscles are normal. The subcutaneous tissues are normal. Limited evaluation of the pelvis reveals sigmoid diverticulosis without CT evidence for acute diverticulitis. IMPRESSION: 1. No acute displaced fracture or dislocation. 2. 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
[2017-01-28] MEDS ORDERED: Sodium Chloride 0.9% 1,000 ML IV SCH (22:15)
--- NOTE | 2017-01-28 23:21 | CP.PCM.HP ---
History of Present Illness - History of Present Illness History of Present Illness: Chief complaint: Chest pain History present illness: 86-year-old female with history of hypertension, hypercholesterolemia, CAD, cardiac to bypass grafting, diabetes, dysphagia, achalasia cardia, status post leg sepsis, bradycardia status post pacemaker. Patient came to the emergency room with a sudden onset of chest pain. The chest pain started an hour ago. To the arrival to the emergency room. Patient started noticing symptoms of chest discomfort, patient's daughter called immediately the eminence, and brought to the emergency room. In emergency room patient did not have much symptoms, the pain was subsiding, patient needed hospitalization. Past medical history: Anxiety, arthritis, bronchitis, CAD, pacemaker, congestive heart failure, COPD, diabetes, heart disease. Surgical history: Corrected bypass grafting in in 1991, carotid endarterectomy, cardiac stenting and pacemaker. Allergy: Multiple allergies including azithromycin, Cipro. Personal history: Former smoker, nonalcoholic. Family history noncontributory. Review of systems: Denies any headache, complaining of abdominal symptoms, nausea noted, status post a PEG, chest pain is improving. On examination: HEENT PERRLA, neck supple No thyromegaly was noted and no cervical adenopathy noted Chest bilateral good air entry, no wheezing or rales noted CVS regular heart sound, no murmur Abdomen soft and no organomegaly Extremities no pedal edema, no leg swelling, pedal pulses are good. Patient somewhat confused, and ileum. Labs reviewed. EKG reviewed. Assessment and recommendation: 85-year-old female with history of hypertension, hypercholesteremia, CAD, status post a cardiac to bypass grafting, diabetes, dysphagia pressure cardiac status post stent placement, bradycardia and pacemaker. Patient admitted with the acute chest pain, nonspecific. Patient will be closely monitored. Delimited. Weakness noted. Generalized. Will follow the patient Present on Admission - Present on Admission Any Indicators Present on Admission: No History of DVT/PE: No History of Uncontrolled Diabetes: No Urinary Catheter: No Decubitus Ulcer Present: No Past Patient History - Infectious Disease Hx of Infectious Diseases: None - Past Medical History & Family History Past Medical History?: Yes - Past Social History Smoking Status: Former Smoker - CARDIAC Hx Cardia Arrhythmia: Yes Hx Congestive Heart Failure: Yes Hx Hypercholesterolemia: Yes Hx Hypertension: Yes Hx Pacemaker: Yes - PULMONARY Hx Bronchitis: Yes Hx Chronic Obstructive Pulmonary Disease (COPD): Yes Hx Pneumonia: Yes - NEUROLOGICAL Hx Seizures: No - HEENT Hx HEENT Problems: Yes Hx Cataracts: Yes (2000 Rt.Eye,2009Left Eye) - RENAL Hx Chronic Kidney Disease: No - ENDOCRINE/METABOLIC Hx Endocrine Disorders: Yes Hx Diabetes Mellitus Type 2: Yes - HEMATOLOGICAL/ONCOLOGICAL Hx Human Immunodeficiency Virus (HIV): No - INTEGUMENTARY Hx Dermatological Problems: No - MUSCULOSKELETAL/RHEUMATOLOGICAL Hx Arthritis: Yes Hx Falls: Yes Hx Osteoporosis: Yes Hx Rheumatoid Arthritis: Yes - GASTROINTESTINAL Hx Gastrointestinal Disorders: Yes Hx Colitis: Yes Hx Gastroesophageal Reflux: Yes HX Swallowing Problems: Yes (Achalasia. 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) Hx Coronary Stent: Yes - ANESTHESIA Hx Anesthesia: Yes Hx Anesthesia Reactions: Yes Hx Malignant Hyperthermia: No Meds Home Medications: Home Medication List Medication Instructions Recorded Confirmed Type Heparin 5,000 units SC Q12 vial 01/29/17 Rx Allergies/Adverse Reactions: Allergies Allergy/AdvReac Type Severity Reaction Status Date / Time azithromycin [From Zithromax] Allergy Verified 01/24/17 21:31 ciprofloxacin HCl Allergy Verified 01/24/17 21:31 [From Cipro] diphenhydramine HCl Allergy Verified 01/24/17 21:31 [From Benadryl] fish oil Allergy Verified 01/24/17 21:31 iodine Allergy Verified 01/24/17 21:31 losartan potassium Allergy Verified 01/24/17 21:31 [From Cozaar] metronidazole [From Flagyl] Allergy Verified 01/24/17 21:31 nitroglycerin Allergy Verified 01/24/17 21:31 Penicillins Allergy Verified 01/24/17 21:31 sulfamethoxazole Allergy Verified 01/24/17 21:31 [From Bactrim] trimethoprim [From Bactrim] Allergy Verified 11/17/16 15:58 zolpidem Allergy Verified 11/17/16 15:58 clopidogrel bisulfate AdvReac Verified 11/17/16 15:58 [From Plavix] Results - Vital Signs Recent Vital Signs: Last Vital Signs Temp 97.6 F 01/28/17 21:17 Pulse 85 01/28/17 21:17 Resp 18 01/28/17 21:17 BP 195/91 H 01/28/17 21:17 Pulse Ox 94 L 01/28/17 16:52 - Labs Result Diagrams: 01/27/17 14:07 01/27/17 14:07 Labs: Laboratory Results - last 24 hr 01/28/17 01/28/17 01/28/17 05:31 11:40 16:12 POC Glucose (mg/dL) 230 H 186 H 205 H 01/28/17 20:56 POC Glucose (mg/dL) 185 H
--- NOTE | 2017-01-28 23:21 | CP.PCM.PN ---
Subjective - Date & Time of Evaluation Date of Evaluation: 01/26/17 Time of Evaluation: 23:21 - Subjective Subjective: Patient is currently feeling slightly better, still having some epigastric discomfort. PEG tube is on, patient is getting the feeding through that. Sugar is somewhat elevated. Leg swelling is negative. Because noted. Clinically very stable. Patient to close to monitor, physical therapy and will follow the patient Objective - Vital Signs/Intake and Output Vital Signs (last 24 hours): Temp Pulse Resp BP Pulse Ox 97.6 F 85 18 195/91 H 94 L 01/28/17 21:17 01/28/17 21:17 01/28/17 21:17 01/28/17 21:17 01/28/17 16:52 Intake and Output: 01/28/17 01/29/17 18:59 06:59 Intake Total 900 300 Balance 900 300 - Medications Medications: Current Medications Famotidine (Pepcid) 20 mg PO BID [facility] Last Admin: 01/28/17 17:40 Dose: 20 mg Insulin Human Regular (Novolin R) 0 unit SC ACHS [facility] PRN Reason: Protocol Last Admin: 01/28/17 21:03 Dose: Not Given Metoprolol Tartrate (Lopressor) 50 mg PEG BID [facility] Last Admin: 01/28/17 17:41 Dose: 50 mg Miconazole Nitrate (Miconazole 2% Cream) 0 ea TOP BID [facility] Last Admin: 01/28/17 17:50 Dose: 1 applic Mirtazapine (Remeron) 15 mg PO HS [facility] Last Admin: 01/28/17 21:03 Dose: 15 mg Quetiapine Fumarate (Seroquel) 25 mg JT BID [facility] Last Admin: 01/28/17 17:40 Dose: 25 mg Rosuvastatin Calcium (Crestor) 20 mg PEG HS [facility] Last Admin: 01/28/17 21:03 Dose: 20 mg Sitagliptin Phosphate (Januvia) 25 mg PEG DAILY [facility] Last Admin: 01/28/17 10:15 Dose: 25 mg - Labs Labs: 01/27/17 14:07 01/27/17 14:07
--- NOTE | 2017-01-28 23:22 | CP.PCM.PN ---
Subjective - Date & Time of Evaluation Date of Evaluation: 01/27/17 Time of Evaluation: 23:21 - Subjective Subjective: Patient is currently feeling slightly better, still having some epigastric discomfort. PEG tube is on, patient is getting the feeding through that. Sugar is somewhat elevated. Leg swelling is negative. Because noted. Clinically very stable. Patient to close to monitor, physical therapy and will follow the patient Objective - Vital Signs/Intake and Output Vital Signs (last 24 hours): Temp Pulse Resp BP Pulse Ox 97.6 F 85 18 195/91 H 94 L 01/28/17 21:17 01/28/17 21:17 01/28/17 21:17 01/28/17 21:17 01/28/17 16:52 Intake and Output: 01/28/17 01/29/17 18:59 06:59 Intake Total 900 300 Balance 900 300 - Medications Medications: Current Medications Famotidine (Pepcid) 20 mg PO BID [facility] Last Admin: 01/28/17 17:40 Dose: 20 mg Insulin Human Regular (Novolin R) 0 unit SC ACHS [facility] PRN Reason: Protocol Last Admin: 01/28/17 21:03 Dose: Not Given Metoprolol Tartrate (Lopressor) 50 mg PEG BID [facility] Last Admin: 01/28/17 17:41 Dose: 50 mg Miconazole Nitrate (Miconazole 2% Cream) 0 ea TOP BID [facility] Last Admin: 01/28/17 17:50 Dose: 1 applic Mirtazapine (Remeron) 15 mg PO HS [facility] Last Admin: 01/28/17 21:03 Dose: 15 mg Quetiapine Fumarate (Seroquel) 25 mg JT BID [facility] Last Admin: 01/28/17 17:40 Dose: 25 mg Rosuvastatin Calcium (Crestor) 20 mg PEG HS [facility] Last Admin: 01/28/17 21:03 Dose: 20 mg Sitagliptin Phosphate (Januvia) 25 mg PEG DAILY [facility] Last Admin: 01/28/17 10:15 Dose: 25 mg - Labs Labs: 01/27/17 14:07 01/27/17 14:07
--- NOTE | 2017-01-28 23:22 | CP.PCM.PN ---
Subjective - Date & Time of Evaluation Date of Evaluation: 01/28/17 Time of Evaluation: 23:22 - Subjective Subjective: Patient is currently feeling slightly better. Spoke to the patient's daughter today. Feeding tube is on, patient is tolerating the feeding, no chest pain. Vital signs stable. Patient is currently stable, she will be discharged tomorrow for the rehabitation possibly. Will follow the patient Objective - Vital Signs/Intake and Output Vital Signs (last 24 hours): Temp Pulse Resp BP Pulse Ox 97.6 F 85 18 195/91 H 94 L 01/28/17 21:17 01/28/17 21:17 01/28/17 21:17 01/28/17 21:17 01/28/17 16:52 Intake and Output: 01/28/17 01/29/17 18:59 06:59 Intake Total 900 300 Balance 900 300 - Medications Medications: Current Medications Famotidine (Pepcid) 20 mg PO BID [facility] Last Admin: 01/28/17 17:40 Dose: 20 mg Insulin Human Regular (Novolin R) 0 unit SC ACHS [facility] PRN Reason: Protocol Last Admin: 01/28/17 21:03 Dose: Not Given Metoprolol Tartrate (Lopressor) 50 mg PEG BID [facility] Last Admin: 01/28/17 17:41 Dose: 50 mg Miconazole Nitrate (Miconazole 2% Cream) 0 ea TOP BID [facility] Last Admin: 01/28/17 17:50 Dose: 1 applic Mirtazapine (Remeron) 15 mg PO HS [facility] Last Admin: 01/28/17 21:03 Dose: 15 mg Quetiapine Fumarate (Seroquel) 25 mg JT BID [facility] Last Admin: 01/28/17 17:40 Dose: 25 mg Rosuvastatin Calcium (Crestor) 20 mg PEG HS [facility] Last Admin: 01/28/17 21:03 Dose: 20 mg Sitagliptin Phosphate (Januvia) 25 mg PEG DAILY [facility] Last Admin: 01/28/17 10:15 Dose: 25 mg - Labs Labs: 01/27/17 14:07 01/27/17 14:07
[2017-01-29] MEDS: (Novolin R) Insulin Human Regular 100 units/ml vial SC SCH ×4 (09:10→18:28)
[2017-01-29] MEDS: Miconazole 2% Cream(30 gm) TOP SCH ×2 (11:25→18:29)
[2017-01-29 17:44] VITALS: BP 158/84; PULSE 82; RESP 20; TEMP 98; O2SAT 95
--- NOTE | 2017-01-29 19:54 | CP.PCM.DIS ---
Provider - Provider Date of Admission: 01/27/17 14:04 Attending physician: Luis Manuel Patel MD Time Spent in preparation of Discharge (in minutes): 45 Hospital Course - Lab Results Lab Results: Most Recent Lab Values WBC 10.9 K/uL (4.8-10.8) H 01/27/17 14:07 RBC 4.25 Mil/uL (3.80-5.20) 01/27/17 14:07 Hgb 12.6 g/dL (11.0-16.0) 01/27/17 14:07 Hct 38.1 % (34.0-47.0) 01/27/17 14:07 MCV 89.7 fL (81.0-99.0) 01/27/17 14:07 MCH 29.8 pg (27.0-31.0) 01/27/17 14:07 MCHC 33.2 g/dL (33.0-37.0) 01/27/17 14:07 RDW 13.1 % (11.5-14.5) 01/27/17 14:07 Plt Count 337 K/uL (130-400) 01/27/17 14:07 MPV 7.7 fL (7.2-11.7) 01/27/17 14:07 Neut % (Auto) 71.4 % (50.0-75.0) 01/27/17 14:07 Lymph % (Auto) 15.9 % (20.0-40.0) L 01/27/17 14:07 [place] % (Auto) 9.4 % (0.0-10.0) 01/27/17 14:07 Eos % (Auto) 2.4 % (0.0-4.0) 01/27/17 14:07 Baso % (Auto) 0.9 % (0.0-2.0) 01/27/17 14:07 Neut # 7.8 K/uL (1.8-7.0) H 01/27/17 14:07 Lymph # 1.7 K/uL (1.0-4.3) 01/27/17 14:07 [place] # 1.0 K/uL (0.0-0.8) H 01/27/17 14:07 Eos # 0.3 K/uL (0.0-0.7) 01/27/17 14:07 Baso # 0.1 K/uL (0.0-0.2) 01/27/17 14:07 Neutrophils % (Manual) 89 % (50-75) H 01/27/17 07:01 Lymphocytes % (Manual) 5 % (20-40) L 01/27/17 07:01 Monocytes % (Manual) 5 % (0-10) 01/27/17 07:01 Eosinophils % (Manual) 1 % (0-4) 01/27/17 07:01 Platelet Estimate Normal (NORMAL) 01/27/17 07:01 RBC Morphology Normal 01/27/17 07:01 Sodium 131 mmol/L (132-148) L 01/27/17 14:07 Potassium 4.3 mmol/L (3.6-5.2) 01/27/17 14:07 Chloride 92 mmol/L (98-107) L 01/27/17 14:07 Carbon Dioxide 27 mmol/L (22-30) 01/27/17 14:07 Anion Gap 16 (10-20) 01/27/17 14:07 BUN 28 mg/dL (7-17) H 01/27/17 14:07 Creatinine 0.7 MG/DL (0.7-1.2) 01/27/17 14:07 Est GFR ( Amer) > 60 01/27/17 14:07 Est GFR (Non-Af Amer) > 60 01/27/17 14:07 POC Glucose (mg/dL) 187 mg/dL (65-110) H 01/29/17 17:40 Random Glucose 192 mg/dL (65-105) H 01/27/17 14:07 Calcium 10.1 mg/dl (8.6-10.4) 01/27/17 14:07 Total Bilirubin 0.5 mg/dL (0.2-1.3) 01/27/17 07:01 AST 20 U/L (14-36) 01/27/17 07:01 ALT 22 U/L (9-52) 01/27/17 07:01 Alkaline Phosphatase 88 U/L (38-126) 01/27/17 07:01 Total Creatine Kinase < 20 U/L (30-135) L 01/25/17 02:34 CK-MB (Mass) 0.86 ng/mL (0.0-3.38) 01/25/17 02:34 Troponin I < 0.0120 ng/mL (0.00-0.120) 01/24/17 22:08 Troponin I, Quant < 0.0120 ng/mL (0.00-0.120) 01/25/17 02:34 Total Protein 8.2 g/dL (6.3-8.3) 01/27/17 07:01 Albumin 3.9 g/dL (3.5-5.0) 01/27/17 07:01 Globulin 4.3 gm/dL (2.2-3.9) H 01/27/17 07:01 Albumin/Globulin Ratio 0.9 (1.0-2.1) L 01/27/17 07:01 Urine Color Yellow (YELLOW) 01/25/17 04:30 Urine Clarity Hazy (Clear) 01/25/17 04:30 Urine pH 7.0 (5.0-8.0) 01/25/17 04:30 Ur Specific Igo 1.012 (1.003-1.030) 01/25/17 04:30 Urine Protein Negative mg/dL (NEGATIVE) 01/25/17 04:30 Urine Glucose (UA) 2+ mg/dL (Normal) H 01/25/17 04:30 Urine Ketones Negative mg/dL (NEGATIVE) 01/25/17 04:30 Urine Blood Negative (NEGATIVE) 01/25/17 04:30 Urine Nitrate Negative (NEGATIVE) 01/25/17 04:30 Urine Bilirubin Negative (NEGATIVE) 01/25/17 04:30 Urine Urobilinogen Normal mg/dL (0.2-1.0) 01/25/17 04:30 Ur Leukocyte Esterase 1+ Sylvie/uL (Negative) H 01/25/17 04:30 Urine WBC (Auto) 18 /hpf (0-5) H 01/25/17 04:30 Urine RBC (Auto) 1 /hpf (0-3) 01/25/17 04:30 Ur Squamous Epith Cells < 1 /hpf (0-5) 01/25/17 04:30 Urine Bacteria Occ (<OCC) H 01/25/17 04:30 - Hospital Course Hospital Course: Chief complaint: Chest pain History present illness: 81-year-old female with history of hypertension, hypercholesterolemia, CAD, cardiac to bypass grafting, diabetes, dysphagia, achalasia cardia, status post leg sepsis, bradycardia status post pacemaker. Patient came to the emergency room with a sudden onset. The chest pain started an hour ago. To the arrival to the emergency room. Patient started noticing symptoms of chest discomfort, patient's daughter called immediately the eminence , and brought to the emergency room. In emergency room patient did not have much symptoms, the pain was subsiding, patient needed hospitalization. Past medical history: Anxiety, arthritis, bronchitis, CAD, pacemaker, congestive heart failure, COPD, diabetes, heart disease. Surgical history: Corrected bypass grafting in in 1991, carotid endarterectomy, cardiac stenting and pacemaker. Allergy: Multiple allergies including azithromycin, Cipro. Personal history: Former smoker, nonalcoholic. Family history noncontributory. Review of systems: Denies any headache, complaining of abdominal symptoms, nausea noted, status post a PEG, chest pain is improving. On examination: HEENT PERRLA, neck supple No thyromegaly was noted and no cervical adenopathy noted Chest bilateral good air entry, no wheezing or rales noted CVS regular heart sound, no murmur Abdomen soft and no organomegaly Extremities no pedal edema, no leg swelling, pedal pulses are good. Patient somewhat confused, and ileum. Labs reviewed. EKG reviewed. Assessment and recommendation: 85-year-old female with history of hypertension, hypercholesteremia, CAD, status post a cardiac to bypass grafting, diabetes, dysphagia pressure cardiac status post stent placement, bradycardia and pacemaker. Patient admitted with the acute chest pain, nonspecific. Patient will be closely monitored. Delimited. Weakness noted. Generalized. Will follow the patient Patient was seen by heat treat technician. Cardiology evaluation was done. Nonspecific chest pain. Clinically patient stable. Because of the weakness and the debility, family agreed to send her to the rehabitation. Patient will be transferred to the rehabilitation today. Follow up as an outpatient. Discharge Exam - Head Exam Head Exam: ATRAUMATIC, NORMAL INSPECTION, NORMOCEPHALIC Discharge Plan - Follow Up Plan Condition: STABLE [facility] Instructions: Heart Failure (DC), Chest Pain (DC), How to Use and Care for Your PEG Tube (DC), Osteoarthritis (GEN) Additional Instructions: Discharge patient to Sub-acute rehab as per dr. Patel. pt stable.
== END 2017-01-29 21:20 | DRG 313 ==
LOC: C.ER 21:19 → C.9E 23:19 → C.5T 01-25 09:32 → OBSVTOIN 01-27 14:04
PROVIDERS: ADMIT Internal Medicine; ATTEND Internal Medicine
PROC: 4B02XSZ Measurement of Cardiac Pacemaker, External Approach (ICD-10-PCS; principal; 2017-01-26)
DX: R07.89 Other chest pain (principal); I25.10 Atherosclerotic heart disease of native coronary artery without angina pectoris; I11.0 Hypertensive heart disease with heart failure; I50.9 Heart failure, unspecified; J44.9 Chronic obstructive pulmonary disease, unspecified; E11.9 Type 2 diabetes mellitus without complications; M16.12 Unilateral primary osteoarthritis, left hip; I45.10 Unspecified right bundle-branch block; M06.9 Rheumatoid arthritis, unspecified; K21.9 Gastro-esophageal reflux disease without esophagitis; M81.0 Age-related osteoporosis without current pathological fracture; E78.5 Hyperlipidemia, unspecified; E78.00 Pure hypercholesterolemia, unspecified; Z95.0 Presence of cardiac pacemaker; Z87.01 Personal history of pneumonia (recurrent); Z87.891 Personal history of nicotine dependence; Z95.1 Presence of aortocoronary bypass graft; Z79.4 Long term (current) use of insulin; Z93.1 Gastrostomy status; Z98.42 Cataract extraction status, left eye; Z98.41 Cataract extraction status, right eye

== ENCOUNTER 2017-04-20 23:18 | Inpatient (IN) | payer MEDICARE, SELFPAY ==
[2017-04-20 23:18] VITALS: BMI 17.2
[2017-04-21] MEDS ORDERED: Morphine 4 MG/ML VIAL IV STA (00:10)
--- NOTE | 2017-04-21 00:13 | C.PDOC ---
History Of Present Illness The patient presents to the ED for evaluation of left hip pain which began after she sustained a fall at home earlier today. Patient states she was recently discharged from a rehab facility. Patient denies head injury, LOC, chest pain, palpitations, and shortness of breath. Time Seen by Provider: 04/20/17 23:40 Chief Complaint (Nursing): Lower Extremity Problem/Injury History Per: Patient History/Exam Limitations: no limitations Onset/Duration Of Symptoms: Hrs Current Symptoms Are (Timing): Still Present Severity: Moderate Pain Scale Rating Of: 5 Recent travel outside of the [place]: No Additional History Per: Patient - Hip Description Of Injury: Fell Past Medical History Reviewed: Historical Data, Nursing Documentation, Vital Signs Vital Signs: Last Vital Signs Temp 97.9 F 04/20/17 23:31 Pulse 105 H 04/21/17 01:54 Resp 20 04/21/17 01:54 BP 114/66 04/21/17 01:54 Pulse Ox 92 L 04/21/17 03:41 - Medical History PMH: Anxiety, Arthritis, Bronchitis, CAD, Cardia Arrhythmia, CHF, COPD, Diabetes , GERD (esophageal stricture), HTN, Hypercholesterolemia, Osteoporosis, Pneumonia, Rheumatoid Arthritis Surgical History: CABG (12/16/1991), Carotid Endarterectomy (06/13/05), Coronary Stent, Pacemaker - [employer] [facility] Procedures CHANGE OTHER DEVICE IN ABDOMINAL WALL, EXTERNAL APPROACH (08/03/15) CONTR CEREBR ARTERIOGRAM (06/13/05) CONTRAST AORTOGRAM (06/13/05) CONTRAST ARTERIOGRAM NEC (05/23/12) CORONAR ARTERIOGR-2 CATH (05/23/12) ENDOSC POLYPECTOMY OF LG INTEST (06/28/14) ENTERAL INFUSION OF CONCENTRATED NUT. SUBSTANCES (10/01/14) HEAD & NECK ENDARTER NEC (06/13/05) INJECT ANTICOAGULANT (06/13/05) INSERT PACE, SINGL HAYLEY IN CHEST SUBCU/FASCIA, OPEN (03/05/16) INSERTION OF ENDOTRACHEAL AIRWAY INTO TRACHEA, VIA OPENING (03/05/16) INSERTION OF INFUSION DEV INTO SUP VENA CAVA, PERC APPROACH (03/05/16) INSERTION OF ONE VASCULAR STENT (05/23/12) INSERTION OF PACEMAKER LEAD INTO R VENTRICLE, PERC APPROACH (03/05/16) INSRT OF DRUG-ELUTING CORON ARTERY STENTS(S) (05/23/12) INTRODUCTION OF NUTRITIONAL INTO UP GI, VIA OPENING (03/05/16) INTRODUCTION OF VASOPRESSOR INTO CENTRAL VEIN, PERC APPROACH (03/05/16) LEFT HEART CARDIAC CATH (05/23/12) LT HEART ANGIOCARDIOGRAM (05/23/12) MEASUREMENT OF CARDIAC PACEMAKER, EXTERNAL APPROACH (01/27/17) PACKED CELL TRANSFUSION (06/28/14) PERCUTANEOUS TRANSLUMINAL CORONARY ANGIOPLASTY [PTCA] (05/23/12) PERCUTANEOUS [ENDOSCOPIC] GASTROSTOMY [PEG] (10/01/14) PERFORMANCE OF CARDIAC PACING, CONTINUOUS (03/05/16) PROCEDURE ON SINGLE VESSEL (05/23/12) REPLACE GASTROSTOMY TUBE (02/09/15) RESPIRATORY VENTILATION, 24-96 CONSECUTIVE HOURS (03/05/16) Family History: States: Unknown Family Hx - Social History Hx Tobacco Use: No Hx Alcohol Use: No Hx Substance Use: No - Immunization History Hx Tetanus Toxoid Vaccination: No Hx Influenza Vaccination: No Hx Pneumococcal Vaccination: No Review Of Systems Cardiovascular: Negative for: Chest Pain, Palpitations Respiratory: Negative for: Cough, Shortness of Breath Gastrointestinal: Negative for: Nausea, Vomiting, Abdominal Pain Musculoskeletal: Positive for: Other (left hip pain ). Negative for: Leg Pain Skin: Negative for: Rash, Lesions, Jaundice, Bruising Neurological: Negative for: Weakness, Numbness Physical Exam - Physical Exam Appears: Non-toxic, No Acute Distress, Other (tearful) Skin: Warm, Dry Head: Normacephalic Eye(s): bilateral: Normal Inspection Oral Mucosa: Moist Neck: Supple Chest: Symmetrical, No Deformity, No Tenderness Cardiovascular: Rhythm Regular, No Murmur Respiratory: No Rales, No Rhonchi, No Wheezing Gastrointestinal/Abdominal: Soft, No Tenderness, No Guarding, No Rebound, Other (PEG tube in place ) Back: No CVA Tenderness, No Vertebral Tenderness, No Paraspinal Tenderness Extremity: Tenderness (to left hip on palpation ), Capillary Refill (less than 2 seconds ), Other (left lower extremity is mildly externally rotated ) Extremity: Left: Bony Point Tenderness (hip), Limited ROM To Joint, Bilateral: Normal Color And Temperature Pulses: Left Femoral: Normal, Left Dorsalis Pedis: Normal, Right Dorsalis Pedis : Normal Neurological/Psych: Oriented x3, Normal Speech Gait: Unable To Assess ED Course And Treatment - Laboratory Results Result Diagrams: 04/21/17 01:17 04/21/17 01:17 ECG: Interpreted By Me, Viewed By Me O2 Sat by Pulse Oximetry: 92 Pulse Ox Interpretation: Normal - Other Rad hip X-Ray: Interpreted by Me, Viewed By Me Interpretation: djd,? fx r femur neck. left no obvious fx, pelvis no fx Progress Note: labs, CXR, Left Hip XR ordered and reviewed. Patient received Morphine IV. Disposition Discussed With Dr.: Luis Manuel Patel Comment: took over the care at 5:21 AM Doctor Will See Patient In The: Hospital Counseled Patient/Family Regarding: Studies Performed, Diagnosis - Disposition Disposition: HOSPITALIZED Disposition Time: 00:10 Condition: FAIR Forms: [employer] (Chinese) - POA Present On Arrival: Falls Or Trauma, Poor Glycemic Control - Clinical Impression Clinical Impression: Uncontrolled diabetes mellitus, Left hip pain, Fall, Ambulatory dysfunction, Hyperglycemia - Scribe Statement The provider has reviewed the documentation as recorded by the Scribe (Juani Dennis) Provider Attestation: All medical record entries made by the Scribe were at my direction and personally dictated by me. I have reviewed the chart and agree that the record accurately reflects my personal performance of the history, physical exam, medical decision making, and the department course for this patient. I have also personally directed, reviewed, and agree with the discharge instructions and disposition. Decision To Admit - Pt Status Changed To: Hospital Disposition Of: Inpatient - Admit Certification Admit to Inpatient:: After my assessment, the patient will require hospitalization for at least two midnights. This is because of the severity of symptoms shown, intensity of services needed, and/or the medical risk in this patient being treated as an outpatient. - InPatient: Physician Admission Certification: I certify that this patient requires 2 or more midnights of care for the following reason:: After my assessment, the patient will require hospitalization for at least two midnights. This is because of the severity of symptoms shown, intensity of services needed, and/or the medical risk in this patient being treated as an outpatient. - . Bed Request Type: Regular Admitting Physician: Luis Manuel Patel Patient Diagnosis: Uncontrolled diabetes mellitus, Left hip pain, Fall, Ambulatory dysfunction, Hyperglycemia
[2017-04-21 01:21] LABS: BASO % 0.3 % (0.0-2.0); EOS # 0.2 K/uL (0.0-0.7); EOS % 1.3 % (0.0-4.0); HEMATOCRIT 35.2 % (34.0-47.0); LYMPH # 1.3 K/uL (1.0-4.3); LYMPH % 9.2 % (20.0-40.0); MEAN CELL VOLUME 94.4 fL (81.0-99.0); MEAN CORPUSCULAR HEMOGLOBIN 31.5 pg (27.0-31.0); MEAN CORPUSCULAR HGB CONC 33.3 g/dL (33.0-37.0); MEAN PLATELET VOLUME 8.1 fL (7.2-11.7); MONO # 1.1 K/uL (0.0-0.8); MONO % 8.1 % (0.0-10.0); NRBC % 0.1 % (0.0-2.0); PLATELET COUNT 391 K/uL (130-400); RED CELL DISTRIBUTION WIDTH 14.3 % (11.5-14.5); WHITE BLOOD COUNT 14.2 K/uL (4.8-10.8)
[2017-04-21 01:27] LABS: INR 1.1
[2017-04-21 01:30] LABS: CHLORIDE 93 mmol/L (98-107); POTASSIUM 4.8 mmol/L (3.6-5.2); SODIUM 139 mmol/L (132-148)
[2017-04-21 01:33] LABS: CARBON DIOXIDE 25 mmol/L (22-30); GFR AFRICAN-AMERICAN > 60
[2017-04-21 01:34] LABS: BLOOD UREA NITROGEN 44 mg/dL (7-17); CALCIUM 11.2 mg/dl (8.6-10.4)
[2017-04-21 01:53] LABS: GLUCOSE,RANDOM 501 mg/dL (65-105)
[2017-04-21 02:15] LABS: EOSINOPHIL 1 % (0-4); NEUTROPHIL 75 % (50-75); TOTAL CELLS COUNTED 100
[2017-04-21] MEDS ORDERED: (Novolin R) Insulin Human Regular 100 units/ml vial IV ONE (02:16)
[2017-04-21] MEDS ORDERED: Sodium Chloride 0.9% 1,000 ML IV ONE (02:16)
[2017-04-21] MEDS ORDERED: (Novolin R) Insulin Human Regular 100 units/ml vial ONE (02:30)
--- NOTE | 2017-04-21 02:32 | CT ---
EXAM: CT Pelvis Without Intravenous Contrast EXAM DATE/TIME: 04/21/2017 12:57 AM CLINICAL HISTORY: 86 years old, female; Pain; Hip pain and pelvic pain; Bilateral; Patient HX: 7-117; Additional info: Fall TECHNIQUE: Axial computed tomography images of the pelvis without intravenous contrast. All CT scans at this facility use one or more dose reduction techniques, viz.: automated exposure control; ma/kV adjustment per patient size (including targeted exams where dose is matched to indication; i.e. head); or iterative reconstruction technique. Coronal and sagittal reformatted images were created and reviewed. COMPARISON: CT - CHEST,ABDOMEN,PELVIS W/O CONT 12/20/2015 10:26:31 AM FINDINGS: There are degenerative changes in the osseous structures. Again seen are severe arthritic changes of the left hip with joint space narrowing as well as heterogeneity of the superior femoral head. The arthritic changes have worsened. There are areas of cortical irregularity in the left greater trochanter however they are unchanged. There is no acute appearing cortical disruption. No acute fractures identified. No dislocation. Vascular calcifications. Colonic diverticulosis is present. A normal appendix is identified. Tiny hyper attenuating objects in the subcutaneous fat of the medial left thigh. IMPRESSION: Chronic degenerative and arthritic changes however no evidence of acute fracture or dislocation.
--- NOTE | 2017-04-21 07:42 | RAD ---
Pelvis and bilateral hips three views History: Fall. Left hip pain. Comparison: None available. Findings: Left hip: Severe degenerative changes noted at the left hip joint space with joint space narrowing, subchondral sclerosis, and osteophytosis. Bony remodeling at the articular surface of the superior aspect of the left femoral head. No evidence for acute displaced fracture or dislocation. Prominent osteopenia. Limited evaluation of the remainder of the bony pelvis demonstrates prominent degenerative changes in the lower lumbar spine. Moderate to severe degenerative changes of the right hip with joint space narrowing and subchondral sclerosis. Prominent vascular calcifications bilaterally. Osteitis pubis. Impression: Severe degenerative changes. If pain persists, further evaluation with MRI is recommended to exclude radio occult fracture.
--- NOTE | 2017-04-21 07:53 | RAD ---
PROCEDURE: CHEST RADIOGRAPH, 1 VIEW HISTORY: Shortness of breath COMPARISON: 01/24/2017 FINDINGS: LUNGS: Moderate left pleural effusion. Moderate to severe venous congestion. Prominent confluent airspace opacity in the left mid to lower lung zone. Biapical pleural thickening with upper lobe granulomatous changes. PLEURA: As above. CARDIOVASCULAR: Status post median sternotomy and CABG. Cardiomegaly. Left-sided pacemaker. OSSEOUS STRUCTURES: No significant abnormalities. VISUALIZED UPPER ABDOMEN: Normal. OTHER FINDINGS: None. Impression: Moderate left pleural effusion. Moderate to severe venous congestion. Prominent confluent airspace opacity in the left mid to lower lung zone. Biapical pleural thickening with upper lobe granulomatous changes. Cardiomegaly.
[2017-04-21] MEDS: (Novolin R) Insulin Human Regular 100 units/ml vial SC SCH ×4 (12:34→21:16)
[2017-04-21 13:24] LABS: RBC URINE 4 /hpf (0-3); URINE BACTERIA FEW (<OCC); URINE BILIRUBIN NEGATIVE (NEGATIVE); URINE BLOOD NEGATIVE (NEGATIVE); URINE COLOR Yellow (YELLOW); URINE GLUCOSE (UA) 3+ mg/dL (Normal); URINE KETONE NEGATIVE (NEGATIVE); URINE LEUKOCYTE ESTERASE NEG Leu/uL (Negative); URINE PROTEIN NEGATIVE (NEGATIVE); URINE UROBILINOGEN NORMAL mg/dL (0.2-1.0); WBC URINE 5 /hpf (0-5)
[2017-04-21] MEDS: Lactobacillus Acidophilus 500 MU Cap PEG SCH (17:42)
[2017-04-21] MEDS ORDERED: Lactobacillus Acidophilus 500 MU Cap PEG SCH (18:00)
[2017-04-22] MEDS ORDERED: Acetaminophen 650mg/20.3ml solution UD PEG PRN (05:45)
[2017-04-22] MEDS: (Novolin R) Insulin Human Regular 100 units/ml vial SC SCH ×4 (07:41→22:24)
[2017-04-22] MEDS: Lactobacillus Acidophilus 500 MU Cap PEG SCH ×2 (10:12→18:54)
[2017-04-22] MEDS: Lidocaine 5% Patch TD SCH (13:34)
[2017-04-23] MEDS: (Novolin R) Insulin Human Regular 100 units/ml vial SC SCH ×4 (08:41→22:21)
[2017-04-23] MEDS: Lidocaine 5% Patch TD SCH (10:17)
[2017-04-23] MEDS: Lactobacillus Acidophilus 500 MU Cap PEG SCH ×2 (12:32→17:03)
[2017-04-23] MEDS: Vancomycin 125 MG/5 ML SOLN (ORAL/RECTAL) PO SCH ×3 (14:11→22:22)
--- NOTE | 2017-04-23 21:45 | CP.PCM.PN ---
Subjective - Date & Time of Evaluation Date of Evaluation: 04/23/17 Time of Evaluation: 21:45 - Subjective Subjective: History of having episodes of diarrhea today. 2 times diarrhea I started the patient on vancomycin by mouth. No pain. But confused. Vitals stable. Continue the treatment. Discussed with the family regarding the discharge plan Objective - Vital Signs/Intake and Output Vital Signs (last 24 hours): Temp Pulse Resp BP Pulse Ox 97.8 F 88 20 162/59 H 96 04/23/17 15:01 04/23/17 15:01 04/23/17 15:01 04/23/17 15:01 04/23/17 15:01 Intake and Output: 04/23/17 04/24/17 18:59 06:59 Intake Total 570 Balance 570 - Medications Medications: Current Medications Acetaminophen (Tylenol 650mg/20.3ml Solution Ud) 650 mg PEG Q6H PRN PRN Reason: Pain, Mild (1-3) Last Admin: 04/22/17 05:40 Dose: 650 mg Diltiazem HCl (Cardizem) 60 mg GT BID [facility] Last Admin: 04/23/17 17:01 Dose: 60 mg Famotidine (Pepcid) 20 mg PO BID [facility] Last Admin: 04/23/17 17:00 Dose: 20 mg Heparin Sodium (Porcine) (Heparin) 5,000 units SC Q8 [facility] Last Admin: 04/23/17 21:16 Dose: 5,000 units Insulin Human Regular (Novolin R) 0 unit SC ACHS [facility] PRN Reason: Protocol Last Admin: 04/23/17 16:58 Dose: 3 unit Isosorbide Mononitrate (Ismo) 20 mg PEG BID [facility] Last Admin: 04/22/17 10:13 Dose: 20 mg Lactobacillus Acidophilus (Bacid Acidophilus) 1 cap PEG BID [facility] Last Admin: 04/23/17 17:03 Dose: 1 cap Lidocaine (Lidoderm) 1 ea TD DAILY [facility] Last Admin: 04/23/17 10:17 Dose: 1 ea Metformin HCl (Glucophage) 500 mg PEG BID [facility] Last Admin: 04/23/17 17:01 Dose: 500 mg Metoprolol Tartrate (Lopressor) 50 mg PEG BID [facility] Last Admin: 04/23/17 17:01 Dose: 50 mg Mirtazapine (Remeron) 7.5 mg PO HS [facility] Last Admin: 04/23/17 21:30 Dose: 7.5 mg Quetiapine Fumarate (Seroquel) 25 mg PO BID [facility] Last Admin: 04/23/17 17:01 Dose: 25 mg Rosuvastatin Calcium (Crestor) 20 mg PEG HS [facility] Last Admin: 04/23/17 21:16 Dose: 20 mg Sitagliptin Phosphate (Januvia) 25 mg PEG DAILY [facility] Last Admin: 04/23/17 10:18 Dose: 25 mg Vancomycin HCl (Vancocin (Oral Or Rectal Use)) 125 mg PO QID [facility] Last Admin: 04/23/17 14:11 Dose: Not Given - Labs Labs: 04/21/17 01:17 04/21/17 01:17 PT 11.9 SECONDS (9.7-12.2) 04/21/17 01:17 INR 1.1 04/21/17 01:17 APTT 22 SECONDS (21-34) 04/21/17 01:17
--- NOTE | 2017-04-23 21:45 | CP.PCM.HP ---
History of Present Illness - History of Present Illness History of Present Illness: Chief complaint: Fall History present illness: 85-year-old female with multiple medical history admitted to the hospital after a fall. Patient was in the rehabilitation for long time. 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 Patient in the emergency room was evaluated for any fractures. No fractures was identified. Patient was admitted because of the safety Past medical history Patient has a PEG tube. Achalasia cardia. CAD COPD hypertension diabetes hypercholesteremia pacemaker placement Surgical history included coronary artery bypass grafting multiple esophageal dilatation, feeding tube Allergy unclear Medications reviewed No external bruises noted Vital signs reviewed No neck vein distention noted Chest good air entry bilaterally, no wheezing or rales noted CVS regular heart sound, no murmur noted Abdomen soft, nontender. Extremities no pedal edema Patient confused and agitated at times Labs reviewed Imaging studies reviewed Assessment and recommendation: 85-year-old female admitted to the hospital following a fall. Stable clinically. Multiple medical history reviewed Medications reviewed Physical therapy order. Patient has a bilateral knee arthritis. We'll continue the medical management. Spoke to the patient's daughter in detail Present on Admission - Present on Admission Any Indicators Present on Admission: No History of DVT/PE: No History of Uncontrolled Diabetes: No Urinary Catheter: No Decubitus Ulcer Present: No Past Patient History - Infectious Disease Hx of Infectious Diseases: None - Past Medical History & Family History Past Medical History?: Yes - Past Social History Smoking Status: Former Smoker - CARDIAC Hx Cardiac Disorders: Yes (CAD) Hx Congestive Heart Failure: Yes Hx Hypercholesterolemia: Yes Hx Hypertension: Yes - PULMONARY Hx Chronic Obstructive Pulmonary Disease (COPD): Yes - NEUROLOGICAL Hx Neurological Disorder: No Hx Seizures: No - HEENT Hx HEENT Problems: Yes Hx Cataracts: Yes (2000 Rt.Eye,2010Left Eye) - RENAL Hx Chronic Kidney Disease: No - ENDOCRINE/METABOLIC Hx Diabetes Mellitus Type 2: Yes - HEMATOLOGICAL/ONCOLOGICAL Hx Blood Disorders: No Hx Human Immunodeficiency Virus (HIV): No - INTEGUMENTARY Hx Dermatological Problems: No - MUSCULOSKELETAL/RHEUMATOLOGICAL Hx Rheumatoid Arthritis: Yes - GASTROINTESTINAL Hx Gastrointestinal Disorders: Yes Hx Colitis: Yes Hx Gastroesophageal Reflux: Yes HX Swallowing Problems: Yes (Achalasia. See HPI) Other/Comment: peg tube 2014 - GENITOURINARY/GYNECOLOGICAL Hx Genitourinary Disorders: No Hx Sexually Transmitted Disorders: No - PSYCHIATRIC Hx Psychophysiologic Disorder: Yes Hx Anxiety: Yes Hx Substance Use: No - SURGICAL HISTORY Hx Surgeries: Yes Hx Carotid Endarterectomy: Yes (06/13/05) Hx Coronary Artery Bypass Graft: Yes (12/16/1991) Hx Coronary Stent: Yes - ANESTHESIA Hx Anesthesia: Yes Hx Anesthesia Reactions: No Hx Malignant Hyperthermia: No Meds Allergies/Adverse Reactions: Allergies Allergy/AdvReac Type Severity Reaction Status Date / Time azithromycin [From Zithromax] Allergy Verified 04/20/17 23:39 ciprofloxacin HCl Allergy Verified 04/20/17 23:39 [From Cipro] diphenhydramine HCl Allergy Verified 04/20/17 23:39 [From Benadryl] fish oil Allergy Verified 04/20/17 23:39 iodine Allergy Verified 04/20/17 23:39 losartan potassium Allergy Verified 04/20/17 23:39 [From Cozaar] metronidazole [From Flagyl] Allergy Verified 04/20/17 23:39 nitroglycerin Allergy Verified 04/20/17 23:39 Penicillins Allergy Verified 04/20/17 23:39 sulfamethoxazole Allergy Verified 04/20/17 23:39 [From Bactrim] trimethoprim [From Bactrim] Allergy Verified 04/20/17 23:39 zolpidem Allergy Verified 04/20/17 23:39 clopidogrel bisulfate AdvReac Verified 04/20/17 23:39 [From Plavix] Results - Vital Signs Recent Vital Signs: Last Vital Signs Temp 97.8 F 04/23/17 15:01 Pulse 88 04/23/17 15:01 Resp 20 04/23/17 15:01 BP 162/59 H 04/23/17 15:01 Pulse Ox 96 04/23/17 15:01 - Labs Result Diagrams: 04/21/17 01:17 04/21/17 01:17 Labs: Laboratory Results - last 24 hr 04/23/17 04/23/17 04/23/17 06:41 11:12 11:58 POC Glucose (mg/dL) 247 H 345 H C. difficile Ag & Toxin 04/23/17 04/23/17 16:32 21:25 POC Glucose (mg/dL) 235 H 179 H C. difficile Ag & Toxin
[2017-04-24] MEDS: (Novolin R) Insulin Human Regular 100 units/ml vial SC SCH ×4 (08:09→22:38)
[2017-04-24] MEDS: Lidocaine 5% Patch TD SCH (10:54)
[2017-04-24] MEDS: Lactobacillus Acidophilus 500 MU Cap PEG SCH ×2 (10:54→17:33)
[2017-04-24] MEDS: Vancomycin 125 MG/5 ML SOLN (ORAL/RECTAL) PO SCH ×4 (10:57→21:23)
[2017-04-24] MEDS: Bacitracin 500 Units/gm Oint Foilpak UD TOP SCH (17:39)
--- NOTE | 2017-04-24 19:14 | CP.PCM.PN ---
Subjective - Date & Time of Evaluation Date of Evaluation: 04/24/17 Time of Evaluation: 19:14 - Subjective Subjective: pt has less diarrhea no chest pain tolereting the feeding blood sugar high continue PT Objective - Vital Signs/Intake and Output Vital Signs (last 24 hours): Temp Pulse Resp BP Pulse Ox 97.7 F 90 20 156/83 H 96 04/24/17 15:53 04/24/17 15:53 04/24/17 15:53 04/24/17 15:53 04/24/17 15:53 Intake and Output: 04/24/17 04/25/17 18:59 06:59 Intake Total 540 Balance 540 - Medications Medications: Current Medications Acetaminophen (Tylenol 650mg/20.3ml Solution Ud) 650 mg PEG Q6H PRN PRN Reason: Pain, Mild (1-3) Last Admin: 04/22/17 05:40 Dose: 650 mg Bacitracin (Bacitracin) 1 ea TOP BID [facility] Last Admin: 04/24/17 17:39 Dose: 1 ea Diltiazem HCl (Cardizem) 60 mg GT BID [facility] Last Admin: 04/24/17 17:32 Dose: 60 mg Famotidine (Pepcid) 20 mg PO BID [facility] Last Admin: 04/24/17 17:32 Dose: 20 mg Heparin Sodium (Porcine) (Heparin) 5,000 units SC Q8 [facility] Insulin Human Regular (Novolin R) 0 unit SC ACHS [facility] PRN Reason: Protocol Last Admin: 04/24/17 16:51 Dose: 3 unit Isosorbide Mononitrate (Ismo) 20 mg PEG BID [facility] Last Admin: 04/22/17 10:13 Dose: 20 mg Lactobacillus Acidophilus (Bacid Acidophilus) 1 cap PEG BID [facility] Last Admin: 04/24/17 17:33 Dose: 1 cap Lidocaine (Lidoderm) 1 ea TD DAILY [facility] Last Admin: 04/24/17 10:54 Dose: 1 ea Metformin HCl (Glucophage) 500 mg PEG BID [facility] Last Admin: 04/24/17 17:32 Dose: 500 mg Metoprolol Tartrate (Lopressor) 50 mg PEG BID [facility] Last Admin: 04/24/17 17:32 Dose: 50 mg Mirtazapine (Remeron) 7.5 mg PO HS [facility] Last Admin: 04/23/17 21:30 Dose: 7.5 mg Quetiapine Fumarate (Seroquel) 25 mg PO BID [facility] Last Admin: 04/24/17 17:32 Dose: 25 mg Rosuvastatin Calcium (Crestor) 20 mg PEG HS [facility] Last Admin: 04/23/17 21:16 Dose: 20 mg Sitagliptin Phosphate (Januvia) 25 mg PEG DAILY [facility] Last Admin: 04/24/17 10:54 Dose: 25 mg Vancomycin HCl (Vancocin (Oral Or Rectal Use)) 125 mg PO QID [facility] Last Admin: 04/24/17 17:31 Dose: 125 mg - Labs Labs: 04/21/17 01:17 04/21/17 01:17 PT 11.9 SECONDS (9.7-12.2) 04/21/17 01:17 INR 1.1 04/21/17 01:17 APTT 22 SECONDS (21-34) 04/21/17 01:17
[2017-04-25] MEDS: (Novolin R) Insulin Human Regular 100 units/ml vial SC SCH ×4 (08:45→21:55)
[2017-04-25] MEDS: Lidocaine 5% Patch TD SCH (10:21)
[2017-04-25] MEDS: Lactobacillus Acidophilus 500 MU Cap PEG SCH ×2 (10:21→18:25)
[2017-04-25] MEDS: Bacitracin 500 Units/gm Oint Foilpak UD TOP SCH ×2 (10:21→18:25)
[2017-04-25] MEDS: Vancomycin 125 MG/5 ML SOLN (ORAL/RECTAL) PO SCH ×4 (14:14→22:28)
[2017-04-25 15:24] VITALS: RESP 20
[2017-04-26] MEDS: (Novolin R) Insulin Human Regular 100 units/ml vial SC SCH ×2 (08:15→12:58)
[2017-04-26] MEDS: Vancomycin 125 MG/5 ML SOLN (ORAL/RECTAL) PO SCH (10:00)
--- NOTE | 2017-04-26 10:31 | CP.PCM.PN ---
Subjective - Date & Time of Evaluation Date of Evaluation: 04/26/17 Time of Evaluation: 10:28 - Subjective Subjective: DISCUSSED DISPO PLAN WITH DR. PORRAS. PT TO BE D/C HOME TODAY. DAUGHTER TO PICK HER UP; CM TO NOTIFY DAUGHTER OF D/C AND P/U. NO NEW RX; BACITRACIN OTC TO PEG SITE BID. TO F/U WITH DR. RAMIREZ IN THE OFFICE NEXT WEEK SOMETIME. CM ATTEMPTED TO REFER PT FOR HOME VNA AND HOME PHY THER HOWEVER THE PT BECAME VERY VULGAR AND BELIGERANT WITH STAFF AND KICKED THEM OUT OF HER ROOM WITHOUT WANTING INFORMATION FROM THE HOME CARE COMPANY. IF PT HAS A CHANGE OF HEART REGARDING HOME SERVICES, SHE CAN CONTACT DR. PORRAS'S OFFICE FOR REFERRAL. NO FURTHER ORDERS. Objective - Vital Signs/Intake and Output Vital Signs (last 24 hours): Temp Pulse Resp BP Pulse Ox 98.6 F 92 H 20 143/61 96 04/25/17 23:40 04/25/17 23:40 04/25/17 23:40 04/25/17 23:40 04/25/17 23:40 Intake and Output: 04/26/17 04/26/17 06:59 18:59 Intake Total 1286 Output Total 400 Balance 886 - Medications Medications: Current Medications Acetaminophen (Tylenol 650mg/20.3ml Solution Ud) 650 mg PEG Q6H PRN PRN Reason: Pain, Mild (1-3) Last Admin: 04/22/17 05:40 Dose: 650 mg Bacitracin (Bacitracin) 1 ea TOP BID [facility] Last Admin: 04/25/17 18:25 Dose: 1 ea Diltiazem HCl (Cardizem) 60 mg GT BID [facility] Last Admin: 04/25/17 18:25 Dose: 60 mg Famotidine (Pepcid) 20 mg PO BID [facility] Last Admin: 04/25/17 18:25 Dose: 20 mg Heparin Sodium (Porcine) (Heparin) 5,000 units SC Q8 [facility] Last Admin: 04/26/17 06:12 Dose: 5,000 units Insulin Human Regular (Novolin R) 0 unit SC ACHS [facility] PRN Reason: Protocol Last Admin: 04/25/17 21:55 Dose: Not Given Isosorbide Mononitrate (Ismo) 20 mg PEG BID [facility] Last Admin: 04/22/17 10:13 Dose: 20 mg Lactobacillus Acidophilus (Bacid Acidophilus) 1 cap PEG BID [facility] Last Admin: 04/25/17 18:25 Dose: 1 cap Lidocaine (Lidoderm) 1 ea TD DAILY [facility] Last Admin: 04/25/17 10:21 Dose: 1 ea Metformin HCl (Glucophage) 500 mg PEG BID [facility] Last Admin: 04/25/17 18:25 Dose: 500 mg Metoprolol Tartrate (Lopressor) 50 mg PEG BID [facility] Last Admin: 04/25/17 18:25 Dose: 50 mg Mirtazapine (Remeron) 7.5 mg PO HS [facility] Last Admin: 04/25/17 22:05 Dose: 7.5 mg Quetiapine Fumarate (Seroquel) 25 mg PO BID [facility] Last Admin: 04/25/17 18:25 Dose: 25 mg Rosuvastatin Calcium (Crestor) 20 mg PEG HS [facility] Last Admin: 04/25/17 22:05 Dose: 20 mg Sitagliptin Phosphate (Januvia) 25 mg PEG DAILY [facility] Last Admin: 04/25/17 10:21 Dose: 25 mg Vancomycin HCl (Vancocin (Oral Or Rectal Use)) 125 mg PO QID [facility] Last Admin: 04/25/17 22:28 Dose: 125 mg - Labs Labs: 04/21/17 01:17 04/21/17 01:17 PT 11.9 SECONDS (9.7-12.2) 04/21/17 01:17 INR 1.1 04/21/17 01:17 APTT 22 SECONDS (21-34) 04/21/17 01:17
--- NOTE | 2017-04-26 10:41 | PCM.HF ---
Heart Failure Core Measure - Heart Failure Ejection Fraction: 40 % or Greater KORINA Inhibitor Prescribed: No Contraindication/Reason for not providing: EF > 40 Beta-Rey Prescribed: None Contraindication/Reason for not providing: ON LOPRESSOR 50 MG PO BID Angiotensin II Receptor Rey Prescribed: No Contraindication/Reason for not providing: EF > 40 AnticoagulationTherapy for Atrial Fibrillation/Atrialflutter: No Contraindication/Reason for not providing: HIGH RISK FOR BLEEDING Aldosterone Antagonist Prescribed: No Contraindication/Reason for not providing: EF > 40 Hydralazine Nitrate Prescribed: No Contraindication/Reason for not providing: EF > 40 Implantable Cardioverter Defibrillator Therapy: No Contraindication/Reason for not providing: ALREADY HAS PACEMAKER; EF > 40 Cardiac Resynchronization Therapy Prescribed: No Contraindication/Reason for not providing: HAS PACEMAKER; EF > 40 - Follow up Will be discharged to: Home Follow Up Date (must be within 7 days from discharge): 05/03/17 Follow Up Time: 09:00
[2017-04-26] MEDS: Lactobacillus Acidophilus 500 MU Cap PEG SCH (11:20)
[2017-04-26] MEDS: Lidocaine 5% Patch TD SCH (11:21)
[2017-04-26] MEDS: Bacitracin 500 Units/gm Oint Foilpak UD TOP SCH (12:12)
[2017-04-26 12:15] VITALS: BP 155/73; PULSE 108; TEMP 98.1; O2SAT 95
== END 2017-04-26 13:10 | disposition home or self-care (01) | DRG 639 ==
LOC: C.ER 23:18 → C.9E 04-21 05:12 → C.6T 04-21 06:27
PROVIDERS: ADMIT Internal Medicine; ATTEND Internal Medicine
DX: E11.65 Type 2 diabetes mellitus with hyperglycemia (principal); M25.552 Pain in left hip; I11.0 Hypertensive heart disease with heart failure; I50.9 Heart failure, unspecified; J44.9 Chronic obstructive pulmonary disease, unspecified; M17.0 Bilateral primary osteoarthritis of knee; M06.9 Rheumatoid arthritis, unspecified; I25.10 Atherosclerotic heart disease of native coronary artery without angina pectoris; K21.9 Gastro-esophageal reflux disease without esophagitis; R19.7 Diarrhea, unspecified; M81.0 Age-related osteoporosis without current pathological fracture; W19.XXXA Unspecified fall, initial encounter; E78.00 Pure hypercholesterolemia, unspecified; Y92.009 Unspecified place in unspecified non-institutional (private) residence as the place of occurrence of the external cause; Z87.891 Personal history of nicotine dependence; Z93.1 Gastrostomy status; Z95.0 Presence of cardiac pacemaker; Z95.1 Presence of aortocoronary bypass graft; Z95.5 Presence of coronary angioplasty implant and graft

== ENCOUNTER 2017-07-20 13:36 | Emergency (ER) | payer MEDICARE ==
[2017-07-20 13:36] VITALS: BMI 17.2
--- NOTE | 2017-07-20 14:28 | C.PDOC ---
History Of Present Illness 86 y/o F presents with feeding tube malfunction. Patient states her daughter accidentally cut the tube. She denies pain, fever, vomiting. Patient in this ED multiple times for feeding tube replacements. Time Seen by Provider: 07/20/17 14:23 Chief Complaint (Nursing): Medical Clearance History Per: Patient History/Exam Limitations: no limitations Onset/Duration Of Symptoms: Hrs Current Symptoms Are (Timing): Still Present Recent travel outside of the [place]: No Past Medical History Reviewed: Historical Data, Nursing Documentation, Vital Signs Vital Signs: Last Vital Signs Temp 98.5 F 07/20/17 13:48 Pulse 111 H 07/20/17 13:48 Resp 18 07/20/17 13:48 BP 114/77 07/20/17 13:48 Pulse Ox 97 07/20/17 14:35 - Medical History PMH: Anxiety, Arthritis, Bronchitis, CAD, Cardia Arrhythmia, CHF, COPD, Diabetes , GERD (esophageal stricture), HTN, Hypercholesterolemia, Osteoporosis, Pneumonia, Rheumatoid Arthritis Denies: Hepatitis, HIV, Chronic Kidney Disease, Seizures, Sexually Transmitted Disease Surgical History: CABG (12/16/1991), Carotid Endarterectomy (06/13/05), Coronary Stent, Pacemaker - [facility] Procedures CHANGE OTHER DEVICE IN ABDOMINAL WALL, EXTERNAL APPROACH (08/03/15) CONTR CEREBR ARTERIOGRAM (06/13/05) CONTRAST AORTOGRAM (06/13/05) CONTRAST ARTERIOGRAM NEC (05/23/12) CORONAR ARTERIOGR-2 CATH (05/23/12) ENDOSC POLYPECTOMY OF LG INTEST (06/28/14) ENTERAL INFUSION OF CONCENTRATED NUT. SUBSTANCES (10/01/14) HEAD & NECK ENDARTER NEC (06/13/05) INJECT ANTICOAGULANT (06/13/05) INSERT PACE, SINGL HAYLEY IN CHEST SUBCU/FASCIA, OPEN (03/05/16) INSERTION OF ENDOTRACHEAL AIRWAY INTO TRACHEA, VIA OPENING (03/05/16) INSERTION OF INFUSION DEV INTO SUP VENA CAVA, PERC APPROACH (03/05/16) INSERTION OF ONE VASCULAR STENT (05/23/12) INSERTION OF PACEMAKER LEAD INTO R VENTRICLE, PERC APPROACH (03/05/16) INSRT OF DRUG-ELUTING CORON ARTERY STENTS(S) (05/23/12) INTRODUCTION OF NUTRITIONAL INTO UP GI, VIA OPENING (03/05/16) INTRODUCTION OF VASOPRESSOR INTO CENTRAL VEIN, PERC APPROACH (03/05/16) LEFT HEART CARDIAC CATH (05/23/12) LT HEART ANGIOCARDIOGRAM (05/23/12) MEASUREMENT OF CARDIAC PACEMAKER, EXTERNAL APPROACH (01/27/17) PACKED CELL TRANSFUSION (06/28/14) PERCUTANEOUS TRANSLUMINAL CORONARY ANGIOPLASTY [PTCA] (05/23/12) PERCUTANEOUS [ENDOSCOPIC] GASTROSTOMY [PEG] (10/01/14) PERFORMANCE OF CARDIAC PACING, CONTINUOUS (03/05/16) PROCEDURE ON SINGLE VESSEL (05/23/12) REPLACE GASTROSTOMY TUBE (02/09/15) RESPIRATORY VENTILATION, 24-96 CONSECUTIVE HOURS (03/05/16) Family History: States: Unknown Family Hx - Social History Hx Tobacco Use: No Hx Alcohol Use: No Hx Substance Use: No - Immunization History Hx Tetanus Toxoid Vaccination: No Hx Influenza Vaccination: No Hx Pneumococcal Vaccination: No Review Of Systems Except As Marked, All Systems Reviewed And Found Negative. Constitutional: Negative for: Fever Cardiovascular: Negative for: Chest Pain Physical Exam - Physical Exam Additional Physical Exam Comments: Constitutional: No acute distress. Head: Normocephalic. Atraumatic. Eyes: PERRL. ENT: Moist mucous membranes. Neck: Supple. Cardiovascular: Regular rate. Radial pulse 2+ bilaterally. Chest: No tenderness. Respiratory: Clear to auscultation bilaterally. GI: Soft. Nontender. Nondistended. Cut genao remains in patent ostomy. Back: No CVA tenderness. Musculoskeletal: No tenderness or swelling of extremities. Skin: No rash. Neurologic: Alert, no focal deficit. ED Course And Treatment O2 Sat by Pulse Oximetry: 97 Medical Decision Making Medical Decision Making: Genao removed, new genao inserted easily and balloon inflated. Stomach contents emerging from newly inserted tube. Jevity administered. Will discharge home. Disposition - Disposition Disposition: HOME/ ROUTINE Disposition Time: 16:16 Condition: STABLE Instructions: How to Use and Care for Your PEG Tube (ED) Forms: [facility] (Divehi) - Clinical Impression Clinical Impression: Gastrostomy tube dysfunction - Scribe Statement The provider has reviewed the documentation as recorded by the Scribe Blessing Coyle All medical record entries made by the Scribe were at my direction and personally dictated by me. I have reviewed the chart and agree that the record accurately reflects my personal performance of the history, physical exam, medical decision making, and the department course for this patient. I have also personally directed, reviewed, and agree with the discharge instructions and disposition.
[2017-07-20 17:44] VITALS: BP 113/69; PULSE 89; RESP 20; TEMP 97.9; O2SAT 96
== END 2017-07-20 17:44 | disposition home or self-care (01) ==
LOC: C.ER 13:36
DX: K94.23 Gastrostomy malfunction (principal); I10 Essential (primary) hypertension; M81.0 Age-related osteoporosis without current pathological fracture; M06.9 Rheumatoid arthritis, unspecified; I50.9 Heart failure, unspecified; I25.10 Atherosclerotic heart disease of native coronary artery without angina pectoris; J44.9 Chronic obstructive pulmonary disease, unspecified; E11.9 Type 2 diabetes mellitus without complications; E78.00 Pure hypercholesterolemia, unspecified

== ENCOUNTER 2017-07-22 10:16 | Emergency (ER) | payer MEDICARE ==
[2017-07-22 10:16] VITALS: BMI 17.2
[2017-07-22 10:39] VITALS: RESP 20
--- NOTE | 2017-07-22 10:53 | C.PDOC ---
History Of Present Illness 86 yr old female brought in via BLS, presents to the ER stating the peg tube fell out last night. Patient was seen 2 days ago for same complaint, had a genao catheter placed in the peg tube stoma. Denies nausea, vomiting, abdominal pain, weakness or numbness. Time Seen by Provider: 07/22/17 10:45 Chief Complaint (Nursing): Medical Clearance History Per: Patient History/Exam Limitations: no limitations Onset/Duration Of Symptoms: Sudden Onset (Last night) Past Medical History Reviewed: Historical Data, Nursing Documentation, Vital Signs Vital Signs: Last Vital Signs Temp 98.6 F 07/22/17 10:28 Pulse 115 H 07/22/17 10:28 Resp 20 07/22/17 10:28 BP 190/96 H 07/22/17 10:28 Pulse Ox 95 07/22/17 11:05 - Medical History PMH: Anxiety, Arthritis, Bronchitis, CAD, Cardia Arrhythmia, CHF, COPD, Diabetes , GERD (esophageal stricture), HTN, Hypercholesterolemia, Osteoporosis, Pneumonia, Rheumatoid Arthritis Surgical History: CABG (12/16/1991), Carotid Endarterectomy (06/13/05), Coronary Stent, Pacemaker - [facility] Procedures CHANGE OTHER DEVICE IN ABDOMINAL WALL, EXTERNAL APPROACH (08/03/15) CONTR CEREBR ARTERIOGRAM (06/13/05) CONTRAST AORTOGRAM (06/13/05) CONTRAST ARTERIOGRAM NEC (05/23/12) CORONAR ARTERIOGR-2 CATH (05/23/12) ENDOSC POLYPECTOMY OF LG INTEST (06/28/14) ENTERAL INFUSION OF CONCENTRATED NUT. SUBSTANCES (10/01/14) HEAD & NECK ENDARTER NEC (06/13/05) INJECT ANTICOAGULANT (06/13/05) INSERT PACE, SINGL HAYLEY IN CHEST SUBCU/FASCIA, OPEN (03/05/16) INSERTION OF ENDOTRACHEAL AIRWAY INTO TRACHEA, VIA OPENING (03/05/16) INSERTION OF INFUSION DEV INTO SUP VENA CAVA, PERC APPROACH (03/05/16) INSERTION OF ONE VASCULAR STENT (05/23/12) INSERTION OF PACEMAKER LEAD INTO R VENTRICLE, PERC APPROACH (03/05/16) INSRT OF DRUG-ELUTING CORON ARTERY STENTS(S) (05/23/12) INTRODUCTION OF NUTRITIONAL INTO UP GI, VIA OPENING (03/05/16) INTRODUCTION OF VASOPRESSOR INTO CENTRAL VEIN, PERC APPROACH (03/05/16) LEFT HEART CARDIAC CATH (05/23/12) LT HEART ANGIOCARDIOGRAM (05/23/12) MEASUREMENT OF CARDIAC PACEMAKER, EXTERNAL APPROACH (01/27/17) PACKED CELL TRANSFUSION (06/28/14) PERCUTANEOUS TRANSLUMINAL CORONARY ANGIOPLASTY [PTCA] (05/23/12) PERCUTANEOUS [ENDOSCOPIC] GASTROSTOMY [PEG] (10/01/14) PERFORMANCE OF CARDIAC PACING, CONTINUOUS (03/05/16) PROCEDURE ON SINGLE VESSEL (05/23/12) REPLACE GASTROSTOMY TUBE (02/09/15) RESPIRATORY VENTILATION, 24-96 CONSECUTIVE HOURS (03/05/16) Family History: States: No Known Family Hx - Social History Hx Tobacco Use: No Hx Alcohol Use: No Hx Substance Use: No - Immunization History Hx Tetanus Toxoid Vaccination: No Hx Influenza Vaccination: No Hx Pneumococcal Vaccination: No Review Of Systems Except As Marked, All Systems Reviewed And Found Negative. Gastrointestinal: Negative for: Nausea, Vomiting, Abdominal Pain Neurological: Negative for: Weakness, Numbness Physical Exam - Physical Exam Appears: Non-toxic, No Acute Distress Skin: Warm, Dry, No Rash Head: Atraumatic, Normacephalic Oral Mucosa: Moist Cardiovascular: Rhythm Regular, No Murmur Respiratory: Normal Breath Sounds, No Rales, No Rhonchi, No Stridor, No Wheezing Gastrointestinal/Abdominal: Soft, Other ((+) Peg tube stoma in upper abdominal. Gastric contents coming through. No surrounding erythema.) Neurological/Psych: Oriented x3, Normal Speech ED Course And Treatment O2 Sat by Pulse Oximetry: 95 (RA) Pulse Ox Interpretation: Normal Medical Decision Making Medical Decision Makinnd visit in 3 days, genao catheter placed 06/20 when PEG tube displaced. Now replaced with PEG tube. Excellent placement. no complications. Disposition Doctor Will See Patient In The: Office Counseled Patient/Family Regarding: Studies Performed, Diagnosis - Disposition Referrals: [facility] [Outside] [facility] [Outside] Disposition: HOME/ ROUTINE Disposition Time: 11:04 Condition: GOOD Additional Instructions: NEW PEG tube placed today Ready for normal function may be taped to the abdominal wall to prevent accidentally pulling it out. Follow-up with your GI specialist as usual. Instructions: How to Use and Care for Your PEG Tube (ED), Tube Feeding (GEN) Forms: [employer] (Irish) - Clinical Impression Clinical Impression: PEG tube malfunction - Scribe Statement The provider has reviewed the documentation as recorded by the Scribe Rozina Murrell Provider Attestation: All medical record entries made by the Scribe were at my direction and personally dictated by me. I have reviewed the chart and agree that the record accurately reflects my personal performance of the history, physical exam, medical decision making, and the department course for this patient. I have also personally directed, reviewed, and agree with the discharge instructions and disposition.
[2017-07-22 11:38] VITALS: BP 163/99; PULSE 114; TEMP 98.5; O2SAT 95
== END 2017-07-22 11:35 | disposition home or self-care (01) ==
LOC: C.ER 10:16
DX: K94.23 Gastrostomy malfunction (principal); Y84.8 Other medical procedures as the cause of abnormal reaction of the patient, or of later complication, without mention of misadventure at the time of the procedure

== ENCOUNTER 2017-10-11 06:20 | Observation (INO) | payer MEDICARE ==
[2017-10-11 06:20] VITALS: BMI 17.2
--- NOTE | 2017-10-11 07:20 | C.PDOC ---
History Of Present Illness 87 year old female with PMHx of DM, PEG tube and CAD presents to the ED c/o several hours of generalized weakness as well as lightheadedness. Patient states she has noticed increase frequency urinating and thirst. Patient live with her daughter who supervises her PEG tube feedings. Patient has been admitted to Dr. Dennis in the past. Patient has an overall poor hygiene. Patient denies fever, chills, cough, CP, SOB, nausea, vomit, diarrhea. Chief Complaint (Nursing): Dizziness/Lightheaded History Per: Patient History/Exam Limitations: no limitations Onset/Duration Of Symptoms: Days Current Symptoms Are (Timing): Still Present Associated Symptoms Preceding Syncopal Episode: Lightheadedness Seizure Or Post-ictal Symptoms: None Fall Associated With With Symptoms: No Recent travel outside of the [place]: No Additional History Per: Patient Past Medical History Reviewed: Historical Data, Nursing Documentation, Vital Signs Vital Signs: Last Vital Signs Temp 97 F L 10/11/17 06:27 Pulse 112 H 10/11/17 12:22 Resp 16 10/11/17 12:22 BP 136/91 H 10/11/17 12:22 Pulse Ox 96 10/11/17 13:07 - Medical History PMH: Anxiety, Arthritis, Bronchitis, CAD, Cardia Arrhythmia, CHF, COPD, Diabetes , GERD (esophageal stricture), HTN, Hypercholesterolemia, Osteoporosis, Pneumonia, Rheumatoid Arthritis Denies: Hepatitis, HIV, Chronic Kidney Disease, Seizures, Sexually Transmitted Disease Surgical History: CABG (12/16/1991), Carotid Endarterectomy (06/13/05), Coronary Stent, Pacemaker - [facility] Procedures CHANGE OTHER DEVICE IN ABDOMINAL WALL, EXTERNAL APPROACH (08/03/15) CONTR CEREBR ARTERIOGRAM (06/13/05) CONTRAST AORTOGRAM (06/13/05) CONTRAST ARTERIOGRAM NEC (05/23/12) CORONAR ARTERIOGR-2 CATH (05/23/12) ENDOSC POLYPECTOMY OF LG INTEST (06/28/14) ENTERAL INFUSION OF CONCENTRATED NUT. SUBSTANCES (10/01/14) HEAD & NECK ENDARTER NEC (06/13/05) INJECT ANTICOAGULANT (06/13/05) INSERT PACE, SINGL HAYLEY IN CHEST SUBCU/FASCIA, OPEN (03/05/16) INSERTION OF ENDOTRACHEAL AIRWAY INTO TRACHEA, VIA OPENING (03/05/16) INSERTION OF INFUSION DEV INTO SUP VENA CAVA, PERC APPROACH (03/05/16) INSERTION OF ONE VASCULAR STENT (05/23/12) INSERTION OF PACEMAKER LEAD INTO R VENTRICLE, PERC APPROACH (03/05/16) INSRT OF DRUG-ELUTING CORON ARTERY STENTS(S) (05/23/12) INTRODUCTION OF NUTRITIONAL INTO UP GI, VIA OPENING (03/05/16) INTRODUCTION OF VASOPRESSOR INTO CENTRAL VEIN, PERC APPROACH (03/05/16) LEFT HEART CARDIAC CATH (05/23/12) LT HEART ANGIOCARDIOGRAM (05/23/12) MEASUREMENT OF CARDIAC PACEMAKER, EXTERNAL APPROACH (01/27/17) PACKED CELL TRANSFUSION (06/28/14) PERCUTANEOUS TRANSLUMINAL CORONARY ANGIOPLASTY [PTCA] (05/23/12) PERCUTANEOUS [ENDOSCOPIC] GASTROSTOMY [PEG] (10/01/14) PERFORMANCE OF CARDIAC PACING, CONTINUOUS (03/05/16) PROCEDURE ON SINGLE VESSEL (05/23/12) REPLACE GASTROSTOMY TUBE (02/09/15) RESPIRATORY VENTILATION, 24-96 CONSECUTIVE HOURS (03/05/16) Family History: States: Unknown Family Hx - Social History Hx Tobacco Use: No Hx Alcohol Use: No Hx Substance Use: No - Immunization History Hx Tetanus Toxoid Vaccination: No Hx Influenza Vaccination: No Hx Pneumococcal Vaccination: No Review Of Systems Constitutional: Positive for: Weakness. Negative for: Fever, Chills Cardiovascular: Negative for: Chest Pain Respiratory: Negative for: Cough, Shortness of Breath Gastrointestinal: Negative for: Nausea, Vomiting, Abdominal Pain Genitourinary: Positive for: Frequency. Negative for: Dysuria Skin: Negative for: Rash Neurological: Positive for: Weakness. Negative for: Numbness, Headache Physical Exam - Physical Exam Appears: Non-toxic, No Acute Distress, Other (poor hygiene) Skin: Warm, Dry, Pale, Other (decreased skin turgor) Head: Atraumatic, Normacephalic Eye(s): bilateral: Normal Inspection Nose: No Discharge Oral Mucosa: Moist Neck: Normal ROM, Supple Chest: Symmetrical Cardiovascular: Rhythm Regular, No Murmur Respiratory: No Rales, No Rhonchi, Other (B/L bibasilar crackles) Gastrointestinal/Abdominal: Soft, No Tenderness, No Guarding, No Rebound, Other (PEG tube on LUQ) Extremity: Normal ROM, No Tenderness, No Swelling, Other (Extremely overgrown fingernails and toenails ) Pulses: Left Dorsalis Pedis: Normal, Right Dorsalis Pedis: Normal Neurological/Psych: Oriented x3 ED Course And Treatment - Laboratory Results Result Diagrams: 10/11/17 07:36 10/11/17 07:36 ECG: Interpreted By Me, Viewed By Me ECG Rhythm: Sinus Tachycardia, R BBB Interpretation Of ECG: Old inferior wall W[place] with Q wave on III and aVF. No old EKG for comparisson Rate From EC O2 Sat by Pulse Oximetry: 96 (ON RA) Pulse Ox Interpretation: Normal - Other Rad CXR X-Ray: Viewed By Me, Read By Radiologist Interpretation: Chest x-ray single frontal view. History: Shortness of breath. Comparison: 04/21/2017. Findings: Left-sided pacemaker. Status post median sternotomy and CABG. Cardiomegaly with calcification at the aortic knob. Biapical pleural thickening with upper lobe granulomatous changes. Right hilar prominence. Surgical clips in the left upper abdomen. Degenerative changes in the spine and shoulders. Impression: Left-sided pacemaker. Status post median sternotomy and CABG. Cardiomegaly with calcification at the aortic knob. Biapical pleural thickening with upper lobe granulomatous changes. Right hilar prominence. Surgical clips in the left upper abdomen. - CT Scan/US CT head Other Rad Studies (CT/US): Read By Radiologist, Radiology Report Reviewed CT/US Interpretation: FINDINGS: HEMORRHAGE: No intracranial hemorrhage. BRAIN : No mass effect or edema. Scattered focal lucencies in the subcortical and periventricular white matter suggestive for chronic microvascular ischemic change. Small hypodensity seen at the level of the anterior limb of the left internal capsule on series 4, image 25 which may represent a small lacunar infarct. VENTRICLES: Moderate central volume loss evidenced by disproportionate enlargement of the ventricles as compared to the sulci. CALVARIUM: Unremarkable. PARANASAL SINUSES: Unremarkable as visualized. No significant inflammatory changes. MASTOID AIR CELLS: Unremarkable as visualized. No inflammatory changes. OTHER FINDINGS: Intracranial arterial calcifications. IMPRESSION: No acute intracranial abnormality. Chronic microvascular ischemic change. Moderate central volume loss. Small hypodensity seen at the level of the anterior limb of the left internal capsule on series 4, image 25 which may represent a small lacunar infarct. If symptoms persist, consider further evaluation with MRI. VQ Scan Other Rad Studies (CT/US): Read By Radiologist, Radiology Report Reviewed CT/US Interpretation: FINDINGS: VENTILATION COMPONENT: Normal. PERFUSION COMPONENT: Heterogeneous distribution of radionuclide. No geographic, segmental , lobar abnormalities apparent on the present examination. Photon deficient lesion corresponds to the battery pack of the pacemaker. IMPRESSION: Low probability ventilation perfusion scan for pulmonary embolism. Progress Note: Upon attempted discharge of pt,she states she cannot even shrimp picker her head off the pillow,began screaming incoherently.Daughter states "how can you send her home like this".Discussed case with Dr Mai who agrees to admit pt to hospitalist service for observation Medical Decision Making Medical Decision Making: Impression: dehydration Plan: * CT head * Labs * CXR * Blood culture * Urine culture * UA On attempted D/C after speaking with Dr. Patel patient became combative and aggressive. Disposition Discussed With : Luis Manuel Patel - Disposition Disposition: HOME/ ROUTINE - Scribe Statement The provider has reviewed the documentation as recorded by the Scribe Roberto Sherwood All medical record entries made by the Scribe were at my direction and personally dictated by me. I have reviewed the chart and agree that the record accurately reflects my personal performance of the history, physical exam, medical decision making, and the department course for this patient. I have also personally directed, reviewed, and agree with the discharge instructions and disposition.
[2017-10-11 07:49] LABS: BASO # 0.1 K/uL (0.0-0.2); BASO % 0.9 % (0.0-2.0); EOS # 0.2 K/uL (0.0-0.7); EOS % 2.3 % (0.0-4.0); HEMOGLOBIN 12.2 g/dL (11.0-16.0); LYMPH # 2.5 K/uL (1.0-4.3); LYMPH % 24.2 % (20.0-40.0); MEAN CELL VOLUME 92.2 fL (81.0-99.0); MEAN CORPUSCULAR HEMOGLOBIN 31.8 pg (27.0-31.0); MEAN CORPUSCULAR HGB CONC 34.5 g/dL (33.0-37.0); MEAN PLATELET VOLUME 8.2 fL (7.2-11.7); MONO # 0.7 K/uL (0.0-0.8); MONO % 7.2 % (0.0-10.0); NEUT # 6.6 K/uL (1.8-7.0); NEUT % 65.4 % (50.0-75.0); NRBC % 0.2 % (0.0-2.0); RBC 3.84 Mil/uL (3.80-5.20); WHITE BLOOD COUNT 10.1 K/uL (4.8-10.8)
[2017-10-11 07:58] LABS: ALBUMIN 4.4 g/dL (3.5-5.0); CALCIUM 10.1 mg/dl (8.6-10.4); GFR AFRICAN-AMERICAN > 60; GFR NON-AFRICAN AMERICAN > 60; LIPASE 146 U/L (23-300)
[2017-10-11 08:01] LABS: ALT/SGPT 18 U/L (9-52); AST/SGOT 29 U/L (14-36); BLOOD UREA NITROGEN 31 mg/dL (7-17)
[2017-10-11 08:07] LABS: B-TYPE NATRIURETIC PEPTIDE 66.7 pg/mL (0-900)
[2017-10-11] MEDS ORDERED: (Novolin R) Insulin Human Regular 100 units/ml vial IV ONE (08:13)
[2017-10-11 08:15] LABS: SQUAMOUS EPITHIAL 1 /hpf (0-5); URINE BACTERIA RARE (<OCC); URINE BILIRUBIN NEGATIVE (NEGATIVE); URINE BLOOD NEGATIVE (NEGATIVE); URINE CLARITY Clear (Clear); URINE COLOR Yellow (YELLOW); URINE GLUCOSE (UA) 3+ mg/dL (Normal); URINE HYALINE CAST 0-2 /lpf (0-2); URINE LEUKOCYTE ESTERASE NEG Leu/uL (Negative); URINE PROTEIN 2+ mg/dL (NEGATIVE); URINE UROBILINOGEN NORMAL mg/dL (0.2-1.0)
[2017-10-11] MEDS ORDERED: Sodium Chloride 0.9% 500 ML IV SCH (08:15)
[2017-10-11 08:30] LABS: INR 0.9; PROTHROMBIN TIME 10.4 SECONDS (9.7-12.2)
[2017-10-11] MEDS ORDERED: Sodium Chloride 0.9% 500 ML IV ONE (08:33)
--- NOTE | 2017-10-11 08:38 | CT ---
PROCEDURE: CT HEAD WITHOUT CONTRAST. HISTORY: R/O Bleed. Altered mental status. COMPARISON: 06/10/2016 TECHNIQUE: Axial computed tomography images were obtained through the head/brain without intravenous contrast. Radiation dose: Total exam DLP = 957 mGy-cm. This CT exam was performed using one or more of the following dose reduction techniques: Automated exposure control, adjustment of the mA and/or kV according to patient size, and/or use of iterative reconstruction technique. FINDINGS: HEMORRHAGE: No intracranial hemorrhage. BRAIN: No mass effect or edema. Scattered focal lucencies in the subcortical and periventricular white matter suggestive for chronic microvascular ischemic change. Small hypodensity seen at the level of the anterior limb of the left internal capsule on series 4, image 25 which may represent a small lacunar infarct. VENTRICLES: Moderate central volume loss evidenced by disproportionate enlargement of the ventricles as compared to the sulci. CALVARIUM: Unremarkable. PARANASAL SINUSES: Unremarkable as visualized. No significant inflammatory changes. MASTOID AIR CELLS: Unremarkable as visualized. No inflammatory changes. OTHER FINDINGS: Intracranial arterial calcifications. IMPRESSION: No acute intracranial abnormality. Chronic microvascular ischemic change. Moderate central volume loss. Small hypodensity seen at the level of the anterior limb of the left internal capsule on series 4, image 25 which may represent a small lacunar infarct. If symptoms persist, consider further evaluation with MRI.
[2017-10-11] MEDS ORDERED: (Novolin R) Insulin Human Regular 100 units/ml vial ONE (08:42)
--- NOTE | 2017-10-11 09:01 | RAD ---
Chest x-ray single frontal view History: Shortness of breath. Comparison: 04/21/2017 Findings: Left-sided pacemaker. Status post median sternotomy and CABG. Cardiomegaly with calcification at the aortic knob. Biapical pleural thickening with upper lobe granulomatous changes. Right hilar prominence. Surgical clips in the left upper abdomen. Degenerative changes in the spine and shoulders. Impression: Left-sided pacemaker. Status post median sternotomy and CABG. Cardiomegaly with calcification at the aortic knob. Biapical pleural thickening with upper lobe granulomatous changes. Right hilar prominence. Surgical clips in the left upper abdomen.
[2017-10-11] MEDS: Sodium Chloride 0.9% 500 ML IV SCH ×2 (09:35→12:50)
--- NOTE | 2017-10-11 11:08 | NM ---
COMPARISON: October 11, 2017. TECHNIQUE: 9.3 mCi technetium 99-m Xe-133 Gas. mCI technetium 99-m MAA administered intravenously. FINDINGS: VENTILATION COMPONENT: Normal. PERFUSION COMPONENT: Heterogeneous distribution of radionuclide. No geographic, segmental, lobar abnormalities apparent on the present examination. Photon deficient lesion corresponds to the battery pack of the pacemaker. IMPRESSION: Low probability ventilation perfusion scan for pulmonary embolism.
--- NOTE | 2017-10-11 14:26 | CP.PCM.HP ---
<Henry Lee - Last Filed: 10/11/17 15:32> History of Present Illness - History of Present Illness History of Present Illness: This is an 87 year old female with PMHx chronic vertigo, achalasia, DM, CAD, COPD, osteoarthritis who presented to the ED with complaints of dizziness over the last 2 weeks. She states that she has had vertigo for years, but it has worsened recently. She describes it as the "room is spinning." It is associated with generalized weakness and nausea. Patient takes Meclizine for her vertigo without relief. Due to her achalasia, the patient gets Jevity tube feedings and medications through her PEG tube. Patient gets feedings every 4 hours. Last February, she was admitted for an infected PEG tube and discharged to a intermediate. Since then, she has been living in a senior facility, but her daughter lives nearby and cares for her. Her daughter is responsible for all of the patients ADL's aside from toileting. The patient is also frail and does not ambulate; she has refused PT in the home and outpatient setting. She denies any history of recent falls. PMHx: DM, vertigo, CAD, Arrhythmia, COPD, Osteoarthritis, Achalasia PSHx: CABG, pacemaker insertion, endocardectomy, coronary stenting, PEG tube placement Allergies: Extensive list including sublingual nitroglycerin, cozaar, penicillin , diphenylhydramine, ciprofloxacin, azithromycin, fish oil, metronidazole, sulfamethoxazole, trimethoprim, zolpidem, clopidogrel bisulfate Social Hx: 40 pack years, denies alcohol, retired Family Hx: Father from CVD, mother from liver disease, brother from lung cancer PMD: Dr. Patel Home Medications: Metformin 500 mg PEG BID Diltiazem 60 mg GT BID Quetiapine 25 mg PEG BID Motoprolol Tartrate 75 mg PEG BED Lactobacillus Acidophilus 200 mg PEG BID Meclizine 12.5 mg PO PRN Isosorbide Mononitrate 20 mg PEG BID Famotidine 20 mg PO BID Acetaminophen 500 mg PEG Q6 PRN Crestor 5 mg daily Present on Admission - Present on Admission Any Indicators Present on Admission: No Review of Systems - Constitutional Constitutional: Weakness. absent: Chills, Fever - EENT Eyes: absent: Change in Vision Ears: absent: Decreased Hearing Nose/Mouth/Throat: absent: Nasal Congestion - Cardiovascular Cardiovascular: absent: Chest Pain - Respiratory Respiratory: absent: Dyspnea - Gastrointestinal Gastrointestinal: Nausea. absent: Abdominal Pain, Vomiting - Genitourinary Genitourinary: absent: Dysuria - Musculoskeletal Musculoskeletal: Muscle Weakness - Integumentary Integumentary: absent: Rash - Neurological Neurological: Dizziness, Weakness - Endocrine Endocrine: absent: Palpitations Past Patient History - Infectious Disease Hx of Infectious Diseases: None - Past Medical History & Family History Past Medical History?: Yes - Past Social History Smoking Status: Former Smoker - CARDIAC Hx Cardia Arrhythmia: Yes Hx Congestive Heart Failure: Yes Hx Hypercholesterolemia: Yes Hx Hypertension: Yes Hx Pacemaker: Yes - PULMONARY Hx Bronchitis: Yes Hx Chronic Obstructive Pulmonary Disease (COPD): Yes Hx Pneumonia: Yes - NEUROLOGICAL Hx Seizures: No - HEENT Hx HEENT Problems: Yes Hx Cataracts: Yes (2000 Rt.Eye,2009Left Eye) - RENAL Hx Chronic Kidney Disease: No - ENDOCRINE/METABOLIC Hx Endocrine Disorders: Yes Hx Diabetes Mellitus Type 2: Yes - HEMATOLOGICAL/ONCOLOGICAL Hx Human Immunodeficiency Virus (HIV): No - INTEGUMENTARY Hx Dermatological Problems: No - MUSCULOSKELETAL/RHEUMATOLOGICAL Hx Arthritis: Yes Hx Osteoporosis: Yes Hx Rheumatoid Arthritis: Yes - GASTROINTESTINAL Hx Gastrointestinal Disorders: Yes Hx Colitis: Yes Hx Gastroesophageal Reflux: Yes HX Swallowing Problems: Yes (Achalasia. 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) Hx Coronary Stent: Yes - ANESTHESIA Hx Anesthesia: Yes Hx Anesthesia Reactions: No Hx Malignant Hyperthermia: No Meds Allergies/Adverse Reactions: Allergies Allergy/AdvReac Type Severity Reaction Status Date / Time azithromycin [From Zithromax] Allergy Verified 04/20/17 23:39 ciprofloxacin HCl Allergy Verified 04/20/17 23:39 [From Cipro] diphenhydramine HCl Allergy Verified 04/20/17 23:39 [From Benadryl] fish oil Allergy Verified 04/20/17 23:39 iodine Allergy Verified 04/20/17 23:39 losartan potassium Allergy Verified 04/20/17 23:39 [From Cozaar] metronidazole [From Flagyl] Allergy Verified 04/20/17 23:39 nitroglycerin Allergy Verified 04/20/17 23:39 Penicillins Allergy Verified 04/20/17 23:39 sulfamethoxazole Allergy Verified 04/20/17 23:39 [From Bactrim] trimethoprim [From Bactrim] Allergy Verified 04/20/17 23:39 zolpidem Allergy Verified 04/20/17 23:39 clopidogrel bisulfate AdvReac Verified 04/20/17 23:39 [From Plavix] Physical Exam - Constitutional Appears: No Acute Distress, Chronically Ill - Head Exam Head Exam: ATRAUMATIC, NORMOCEPHALIC - Eye Exam Eye Exam: EOMI. absent: Normal appearance (pterygium left eye), PERRL - ENT Exam ENT Exam: Mucous Membranes Dry - Respiratory Exam Respiratory Exam: Clear to Auscultation Bilateral, NORMAL BREATHING PATTERN. absent: Rales, Rhonchi, Wheezes - Cardiovascular Exam Cardiovascular Exam: Tachycardia, +S1, +S2 - GI/Abdominal Exam GI & Abdominal Exam: Normal Bowel Sounds, Soft. absent: Tenderness Additional comments: PEG tube in place - Extremities Exam Extremities exam: Positive for: pedal pulses present. Negative for: pedal edema , tenderness - Neurological Exam Neurological exam: Alert, CN II-XII Intact, Oriented x3 Additional comments: Moving all four extremities. Good muscular endurance in all extremities except for the left leg, but this is chronic per patient due to deconditioning in the past. Sensations intact. - Psychiatric Exam Additional comments: Delusional type of affect - Skin Skin Exam: Dry, Pallor, Warm Results - Vital Signs Recent Vital Signs: Last Vital Signs Temp 97 F L 10/11/17 06:27 Pulse 109 H 10/11/17 14:10 Resp 16 10/11/17 14:10 BP 166/105 H 10/11/17 14:10 Pulse Ox 100 10/11/17 14:10 - Labs Result Diagrams: 10/11/17 07:36 10/11/17 07:36 Labs: Laboratory Results - last 24 hr 10/11/17 10/11/17 10/11/17 07:36 07:36 07:36 WBC 10.1 RBC 3.84 Hgb 12.2 Hct 35.4 MCV 92.2 D MCH 31.8 H MCHC 34.5 RDW 13.0 Plt Count 355 MPV 8.2 Neut % (Auto) 65.4 Lymph % (Auto) 24.2 Starr % (Auto) 7.2 Eos % (Auto) 2.3 Baso % (Auto) 0.9 Neut # (Auto) 6.6 Lymph # (Auto) 2.5 Starr # (Auto) 0.7 Eos # (Auto) 0.2 Baso # (Auto) 0.1 PT INR APTT D-Dimer, Quantitative Sodium 137 Potassium 4.6 Chloride 96 L Carbon Dioxide 25 Anion Gap 22 H BUN 31 H Creatinine 0.8 Est GFR ( Amer) > 60 Est GFR (Non-Af Amer) > 60 POC Glucose (mg/dL) Random Glucose 282 H Lactic Acid Calcium 10.1 Total Bilirubin 0.8 AST 29 ALT 18 Alkaline Phosphatase 55 Troponin I < 0.0120 NT-Pro-B Natriuret Pep 66.7 Total Protein 8.8 H Albumin 4.4 Globulin 4.3 H Albumin/Globulin Ratio 1.0 Lipase 146 Urine Color Yellow Urine Clarity Clear Urine pH 7.0 Ur Specific Mentcle 1.016 Urine Protein 2+ H Urine Glucose (UA) 3+ H Urine Ketones Negative Urine Blood Negative Urine Nitrate Negative Urine Bilirubin Negative Urine Urobilinogen Normal Ur Leukocyte Esterase Neg Urine WBC (Auto) 1 Urine RBC (Auto) 1 Ur Squamous Epith Cells 1 Urine Bacteria Rare Hyaline Casts 0-2 Serum Ketones Negative 10/11/17 10/11/17 10/11/17 07:56 08:04 08:42 WBC RBC Hgb Hct MCV MCH MCHC RDW Plt Count MPV Neut % (Auto) Lymph % (Auto) Starr % (Auto) Eos % (Auto) Baso % (Auto) Neut # (Auto) Lymph # (Auto) Starr # (Auto) Eos # (Auto) Baso # (Auto) PT 10.4 INR 0.9 APTT 26 D-Dimer, Quantitative 388 H Sodium Potassium Chloride Carbon Dioxide Anion Gap BUN Creatinine Est GFR ( Amer) Est GFR (Non-Af Amer) POC Glucose (mg/dL) 240 H Random Glucose Lactic Acid 3.2 H Calcium Total Bilirubin AST ALT Alkaline Phosphatase Troponin I NT-Pro-B Natriuret Pep Total Protein Albumin Globulin Albumin/Globulin Ratio Lipase Urine Color Urine Clarity Urine pH Ur Specific Mentcle Urine Protein Urine Glucose (UA) Urine Ketones Urine Blood Urine Nitrate Urine Bilirubin Urine Urobilinogen Ur Leukocyte Esterase Urine WBC (Auto) Urine RBC (Auto) Ur Squamous Epith Cells Urine Bacteria Hyaline Casts Serum Ketones 10/11/17 09:45 WBC RBC Hgb Hct MCV MCH MCHC RDW Plt Count MPV Neut % (Auto) Lymph % (Auto) Starr % (Auto) Eos % (Auto) Baso % (Auto) Neut # (Auto) Lymph # (Auto) Starr # (Auto) Eos # (Auto) Baso # (Auto) PT INR APTT D-Dimer, Quantitative Sodium Potassium Chloride Carbon Dioxide Anion Gap BUN Creatinine Est GFR ( Amer) Est GFR (Non-Af Amer) POC Glucose (mg/dL) 166 H Random Glucose Lactic Acid Calcium Total Bilirubin AST ALT Alkaline Phosphatase Troponin I NT-Pro-B Natriuret Pep Total Protein Albumin Globulin Albumin/Globulin Ratio Lipase Urine Color Urine Clarity Urine pH Ur Specific Mentcle Urine Protein Urine Glucose (UA) Urine Ketones Urine Blood Urine Nitrate Urine Bilirubin Urine Urobilinogen Ur Leukocyte Esterase Urine WBC (Auto) Urine RBC (Auto) Ur Squamous Epith Cells Urine Bacteria Hyaline Casts Serum Ketones Assessment & Plan - Assessment and Plan (Free Text) Plan: Vertigo Failed therapy with Meclizine Started Valium 2 mg PEG BID Dehydration Given her previous medical history, started Half NS 75 cc/hr History of CAD Resumed home Lopressor 75 mg PEG BID Resumed home Cardizem 60 mg GT BID Resumed home Isosorbide Mononitrate 20 mg PEG BID History of DM Resumed home Metformin 500 mg PEG BID Regular ISS-low dose Accuchecks ACHS History of Psychosis Resumed home Seroquel 25 mg PEG BID History of Achalasia Resumed home Jevity tube feedings 6 per day Oral medications given through PEG tube Prophylactic Measure 1:1 obs for fall prevention Heparin SC Q8 Pepcid 20 mg PEG daily Resumed home Bacid PT/OT evaluation, though patient seems to be refusing rehab options as well as outpatient and home PT Discussed with Dr. Robert Lee PGY-1 <Kofi Jones - Last Filed: 10/11/17 16:52> Results - Vital Signs Recent Vital Signs: Last Vital Signs Temp 97 F L 10/11/17 06:27 Pulse 109 H 10/11/17 14:10 Resp 16 10/11/17 14:10 BP 166/105 H 10/11/17 14:10 Pulse Ox 100 10/11/17 14:10 - Labs Result Diagrams: 10/11/17 07:36 10/11/17 07:36 Labs: Laboratory Results - last 24 hr 10/11/17 10/11/17 10/11/17 07:36 07:36 07:36 WBC 10.1 RBC 3.84 Hgb 12.2 Hct 35.4 MCV 92.2 D MCH 31.8 H MCHC 34.5 RDW 13.0 Plt Count 355 MPV 8.2 Neut % (Auto) 65.4 Lymph % (Auto) 24.2 Starr % (Auto) 7.2 Eos % (Auto) 2.3 Baso % (Auto) 0.9 Neut # (Auto) 6.6 Lymph # (Auto) 2.5 Starr # (Auto) 0.7 Eos # (Auto) 0.2 Baso # (Auto) 0.1 PT INR APTT D-Dimer, Quantitative Sodium 137 Potassium 4.6 Chloride 96 L Carbon Dioxide 25 Anion Gap 22 H BUN 31 H Creatinine 0.8 Est GFR ( Amer) > 60 Est GFR (Non-Af Amer) > 60 POC Glucose (mg/dL) Random Glucose 282 H Lactic Acid Calcium 10.1 Total Bilirubin 0.8 AST 29 ALT 18 Alkaline Phosphatase 55 Troponin I < 0.0120 NT-Pro-B Natriuret Pep 66.7 Total Protein 8.8 H Albumin 4.4 Globulin 4.3 H Albumin/Globulin Ratio 1.0 Lipase 146 Urine Color Yellow Urine Clarity Clear Urine pH 7.0 Ur Specific Mentcle 1.016 Urine Protein 2+ H Urine Glucose (UA) 3+ H Urine Ketones Negative Urine Blood Negative Urine Nitrate Negative Urine Bilirubin Negative Urine Urobilinogen Normal Ur Leukocyte Esterase Neg Urine WBC (Auto) 1 Urine RBC (Auto) 1 Ur Squamous Epith Cells 1 Urine Bacteria Rare Hyaline Casts 0-2 Serum Ketones Negative 10/11/17 10/11/17 10/11/17 07:56 08:04 08:42 WBC RBC Hgb Hct MCV MCH MCHC RDW Plt Count MPV Neut % (Auto) Lymph % (Auto) Starr % (Auto) Eos % (Auto) Baso % (Auto) Neut # (Auto) Lymph # (Auto) Starr # (Auto) Eos # (Auto) Baso # (Auto) PT 10.4 INR 0.9 APTT 26 D-Dimer, Quantitative 388 H Sodium Potassium Chloride Carbon Dioxide Anion Gap BUN Creatinine Est GFR ( Amer) Est GFR (Non-Af Amer) POC Glucose (mg/dL) 240 H Random Glucose Lactic Acid 3.2 H Calcium Total Bilirubin AST ALT Alkaline Phosphatase Troponin I NT-Pro-B Natriuret Pep Total Protein Albumin Globulin Albumin/Globulin Ratio Lipase Urine Color Urine Clarity Urine pH Ur Specific Mentcle Urine Protein Urine Glucose (UA) Urine Ketones Urine Blood Urine Nitrate Urine Bilirubin Urine Urobilinogen Ur Leukocyte Esterase Urine WBC (Auto) Urine RBC (Auto) Ur Squamous Epith Cells Urine Bacteria Hyaline Casts Serum Ketones 10/11/17 09:45 WBC RBC Hgb Hct MCV MCH MCHC RDW Plt Count MPV Neut % (Auto) Lymph % (Auto) Starr % (Auto) Eos % (Auto) Baso % (Auto) Neut # (Auto) Lymph # (Auto) Starr # (Auto) Eos # (Auto) Baso # (Auto) PT INR APTT D-Dimer, Quantitative Sodium Potassium Chloride Carbon Dioxide Anion Gap BUN Creatinine Est GFR ( Amer) Est GFR (Non-Af Amer) POC Glucose (mg/dL) 166 H Random Glucose Lactic Acid Calcium Total Bilirubin AST ALT Alkaline Phosphatase Troponin I NT-Pro-B Natriuret Pep Total Protein Albumin Globulin Albumin/Globulin Ratio Lipase Urine Color Urine Clarity Urine pH Ur Specific [place]cle Urine Protein Urine Glucose (UA) Urine Ketones Urine Blood Urine Nitrate Urine Bilirubin Urine Urobilinogen Ur Leukocyte Esterase Urine WBC (Auto) Urine RBC (Auto) Ur Squamous Epith Cells Urine Bacteria Hyaline Casts Serum Ketones Attending/Attestation - Attestation I have personally seen and examined this patient.: Yes I have fully participated in the care of the patient.: Yes I have reviewed all pertinent clinical information: Yes Notes (Text): Patient was seen and examined. History reviewed from previous admissions . spoke to the patient and her daughter at ER. patient is complaining of dizziness. She has history of vertigo on meclizine without much help. As per her daughter patient has difficulty in ambulating.Patient and her daughter was refused to get discharge from ER due to dizziness. Discussed with her primary care physician Dr Patel who recommend to admit for observation to manage her severe dizziness.We will try Valium for her Vertigo Patient refuses rehab placement. She is also not want to have home PT. We will ask for PT evaluation Discussed with the resident. i agree with the documentation of the resident's assessment and the plan
[2017-10-11] MEDS: Sodium Chloride 0.45% 1,000 ML IV SCH (16:20)
[2017-10-11] MEDS: (Novolin R) Insulin Human Regular 100 units/ml vial SC SCH ×2 (17:10→22:39)
[2017-10-11 17:21] VITALS: RESP 20
[2017-10-11] MEDS: Lactobacillus Acidophilus 500 MU Cap PEG SCH (18:55)
[2017-10-12] MEDS: Sodium Chloride 0.45% 1,000 ML IV SCH ×2 (05:44→12:01)
[2017-10-12] MEDS: (Novolin R) Insulin Human Regular 100 units/ml vial SC SCH ×3 (08:22→17:24)
[2017-10-12 08:45] LABS: BASO # 0.1 K/uL (0.0-0.2); EOS # 0.1 K/uL (0.0-0.7); HEMOGLOBIN 11.5 g/dL (11.0-16.0); LYMPH # 2.7 K/uL (1.0-4.3); LYMPH % 22.2 % (20.0-40.0); MEAN CELL VOLUME 92.4 fL (81.0-99.0); MEAN CORPUSCULAR HEMOGLOBIN 31.4 pg (27.0-31.0); MONO # 0.8 K/uL (0.0-0.8); MONO % 6.6 % (0.0-10.0); NEUT # 8.4 K/uL (1.8-7.0); NEUT % 69.2 % (50.0-75.0); RBC 3.67 Mil/uL (3.80-5.20); RED CELL DISTRIBUTION WIDTH 13.1 % (11.5-14.5); WHITE BLOOD COUNT 12.2 K/uL (4.8-10.8)
[2017-10-12 09:24] LABS: ALBUMIN 3.9 g/dL (3.5-5.0); CALCIUM 9.4 mg/dl (8.6-10.4)
--- NOTE | 2017-10-12 09:59 | CP.PCM.DIS ---
<Henry Lee S - Last Filed: 10/12/17 15:16> Provider - Provider Date of Admission: 10/11/17 12:59 Attending physician: Kofi Jones MD Primary care physician: Dr. Patel Time Spent in preparation of Discharge (in minutes): 40 Diagnosis - Discharge Diagnosis (1) Chronic vertigo Status: Acute Priority: High (2) Dehydration Status: Acute Priority: High (3) History of coronary artery disease Status: Chronic Priority: Medium (4) History of diabetes mellitus Status: Chronic Priority: Medium (5) History of psychosis Status: Chronic Priority: Medium (6) Achalasia Status: Chronic Priority: Medium Hospital Course - Lab Results Lab Results: Most Recent Lab Values WBC 12.2 K/uL (4.8-10.8) H 10/12/17 08:35 RBC 3.67 Mil/uL (3.80-5.20) L 10/12/17 08:35 Hgb 11.5 g/dL (11.0-16.0) 10/12/17 08:35 Hct 33.9 % (34.0-47.0) L 10/12/17 08:35 MCV 92.4 fL (81.0-99.0) 10/12/17 08:35 MCH 31.4 pg (27.0-31.0) H 10/12/17 08:35 MCHC 34.0 g/dL (33.0-37.0) 10/12/17 08:35 RDW 13.1 % (11.5-14.5) 10/12/17 08:35 Plt Count 339 K/uL (130-400) 10/12/17 08:35 MPV 8.0 fL (7.2-11.7) 10/12/17 08:35 Neut % (Auto) 69.2 % (50.0-75.0) 10/12/17 08:35 Lymph % (Auto) 22.2 % (20.0-40.0) 10/12/17 08:35 [place] % (Auto) 6.6 % (0.0-10.0) 10/12/17 08:35 Eos % (Auto) 1.0 % (0.0-4.0) 10/12/17 08:35 Baso % (Auto) 1.0 % (0.0-2.0) 10/12/17 08:35 Neut # (Auto) 8.4 K/uL (1.8-7.0) H 10/12/17 08:35 Lymph # (Auto) 2.7 K/uL (1.0-4.3) 10/12/17 08:35 [place] # (Auto) 0.8 K/uL (0.0-0.8) 10/12/17 08:35 Eos # (Auto) 0.1 K/uL (0.0-0.7) 10/12/17 08:35 Baso # (Auto) 0.1 K/uL (0.0-0.2) 10/12/17 08:35 PT 10.4 SECONDS (9.7-12.2) 10/11/17 08:04 INR 0.9 10/11/17 08:04 APTT 37 SECONDS (21-34) H D 10/12/17 08:35 D-Dimer, Quantitative 388 ng/mlDDU (0-243) H 10/11/17 08:04 Sodium 133 mmol/L (132-148) 10/12/17 08:35 Potassium 4.6 mmol/L (3.6-5.2) 10/12/17 08:35 Chloride 95 mmol/L (98-107) L 10/12/17 08:35 Carbon Dioxide 21 mmol/L (22-30) L 10/12/17 08:35 Anion Gap 21 (10-20) H 10/12/17 08:35 BUN 36 mg/dL (7-17) H 10/12/17 08:35 Creatinine 1.2 mg/dL (0.7-1.2) 10/12/17 08:35 Est GFR ( Amer) 52 10/12/17 08:35 Est GFR (Non-Af Amer) 43 10/12/17 08:35 POC Glucose (mg/dL) 351 mg/dL (65-110) H 10/12/17 07:31 Random Glucose 386 mg/dL (65-105) H 10/12/17 08:35 Lactic Acid 3.2 mmol/L (0.7-2.1) H 10/11/17 07:56 Calcium 9.4 mg/dl (8.6-10.4) 10/12/17 08:35 Total Bilirubin 0.8 mg/dL (0.2-1.3) 10/12/17 08:35 AST 32 U/L (14-36) 10/12/17 08:35 ALT 21 U/L (9-52) 10/12/17 08:35 Alkaline Phosphatase 66 U/L (38-126) 10/12/17 08:35 Troponin I < 0.0120 ng/mL (0.00-0.120) 10/11/17 07:36 NT-Pro-B Natriuret Pep 66.7 pg/mL (0-900) 10/11/17 07:36 Total Protein 7.6 g/dL (6.3-8.3) 10/12/17 08:35 Albumin 3.9 g/dL (3.5-5.0) 10/12/17 08:35 Globulin 3.7 gm/dL (2.2-3.9) 10/12/17 08:35 Albumin/Globulin Ratio 1.0 (1.0-2.1) 10/12/17 08:35 Lipase 146 U/L (23-300) 10/11/17 07:36 Urine Color Yellow (YELLOW) 10/11/17 07:36 Urine Clarity Clear (Clear) 10/11/17 07:36 Urine pH 7.0 (5.0-8.0) 10/11/17 07:36 Ur Specific [place] 1.016 (1.003-1.030) 10/11/17 07:36 Urine Protein 2+ mg/dL (NEGATIVE) H 10/11/17 07:36 Urine Glucose (UA) 3+ mg/dL (Normal) H 10/11/17 07:36 Urine Ketones Negative mg/dL (NEGATIVE) 10/11/17 07:36 Urine Blood Negative (NEGATIVE) 10/11/17 07:36 Urine Nitrate Negative (NEGATIVE) 10/11/17 07:36 Urine Bilirubin Negative (NEGATIVE) 10/11/17 07:36 Urine Urobilinogen Normal mg/dL (0.2-1.0) 10/11/17 07:36 Ur Leukocyte Esterase Neg Sylvie/uL (Negative) 10/11/17 07:36 Urine WBC (Auto) 1 /hpf (0-5) 10/11/17 07:36 Urine RBC (Auto) 1 /hpf (0-3) 10/11/17 07:36 Ur Squamous Epith Cells 1 /hpf (0-5) 10/11/17 07:36 Urine Bacteria Rare (<OCC) 10/11/17 07:36 Hyaline Casts 0-2 /lpf (0-2) 10/11/17 07:36 Serum Ketones Negative (NEGATIVE) 10/11/17 07:36 - Hospital Course Hospital Course: Initial note: "This is an 87 year old female with PMHx chronic vertigo, achalasia, DM, CAD, COPD, osteoarthritis who presented to the ED with complaints of dizziness over the last 2 weeks. She states that she has had vertigo for years, but it has worsened recently. She describes it as the "room is spinning." It is associated with generalized weakness and nausea. Patient takes Meclizine for her vertigo without relief. Due to her achalasia, the patient gets Jevity tube feedings and medications through her PEG tube. Patient gets feedings every 4 hours. Last February, she was admitted for an infected PEG tube and discharged to a [facility]. Since then, she has been living in a senior facility, but her daughter lives nearby and cares for her. Her daughter is responsible for all of the patients ADL's aside from toileting. The patient is also frail and does not ambulate; she has refused PT in the home and outpatient setting. She denies any history of recent falls." Hospital Course: Patient admitted under observation for dizziness due to chronic vertigo. Patient treated with Valium and dizziness has resolved on the date of discharge. Patient discharged to [facility] per daughter's ([employer] Host/Hostess) wishes with instructions to follow up with primary. This is a summary of the hospital course. For more information, refer to the medical records. Discharge Exam - Additional Findings Additional findings: - Constitutional Appears: No Acute Distress, Chronically Ill - Head Exam Head Exam: ATRAUMATIC, NORMOCEPHALIC - Eye Exam Eye Exam: EOMI. absent: Normal appearance (pterygium left eye), PERRL - ENT Exam ENT Exam: Mucous Membranes Dry - Respiratory Exam Respiratory Exam: Clear to Auscultation Bilateral, NORMAL BREATHING PATTERN. absent: Rales, Rhonchi, Wheezes - Cardiovascular Exam Cardiovascular Exam: Tachycardia, +S1, +S2 - GI/Abdominal Exam GI & Abdominal Exam: Normal Bowel Sounds, Soft. absent: Tenderness Additional comments: PEG tube in place with some excoriation over the site of insertion - Extremities Exam Extremities exam: Positive for: pedal pulses present. Negative for: pedal edema , tenderness - Back Exam Back exam: Positive for: small excoriation on the left of the sacrum - Neurological Exam Neurological exam: Alert, CN II-XII Intact Additional comments: Moving all four extremities. Good muscular endurance in all extremities except for the left leg, but this is chronic per patient due to deconditioning in the past. Sensations intact. - Psychiatric Exam Additional comments: Delusional type of affect - Skin Skin Exam: Dry, Pallor, Warm Discharge Plan - Discharge Medications Prescriptions: Bacitracin 1 ea EXT Q8H 30 Days fp - Follow Up Plan Condition: STABLE Disposition: REHAB FACILITY/REHAB UNIT Instructions: Dehydration, Adult (DC) Additional Instructions: Please follow up with your primary care physician within 1 week. Make sure to stay hydrated with plenty of water. Make sure that you change your position every 2 hours to alleviate tension off of your tailbone. Apply Bacitracin that you can purchase over the counter to the area around your PEG tube site and make sure to keep the area clean. If there are any new or worsening symptoms, please go to the nearest emergency room. Referrals: Luis Manuel Patel MD [Staff Provider] - <Kofi Jones - Last Filed: 10/12/17 15:41> Provider - Provider Date of Admission: 10/11/17 12:59 Attending physician: Kofi Jones MD Hospital Course - Lab Results Lab Results: Most Recent Lab Values WBC 12.2 K/uL (4.8-10.8) H 10/12/17 08:35 RBC 3.67 Mil/uL (3.80-5.20) L 10/12/17 08:35 Hgb 11.5 g/dL (11.0-16.0) 10/12/17 08:35 Hct 33.9 % (34.0-47.0) L 10/12/17 08:35 MCV 92.4 fL (81.0-99.0) 10/12/17 08:35 MCH 31.4 pg (27.0-31.0) H 10/12/17 08:35 MCHC 34.0 g/dL (33.0-37.0) 10/12/17 08:35 RDW 13.1 % (11.5-14.5) 10/12/17 08:35 Plt Count 339 K/uL (130-400) 10/12/17 08:35 MPV 8.0 fL (7.2-11.7) 10/12/17 08:35 Neut % (Auto) 69.2 % (50.0-75.0) 10/12/17 08:35 Lymph % (Auto) 22.2 % (20.0-40.0) 10/12/17 08:35 [place] % (Auto) 6.6 % (0.0-10.0) 10/12/17 08:35 Eos % (Auto) 1.0 % (0.0-4.0) 10/12/17 08:35 Baso % (Auto) 1.0 % (0.0-2.0) 10/12/17 08:35 Neut # (Auto) 8.4 K/uL (1.8-7.0) H 10/12/17 08:35 Lymph # (Auto) 2.7 K/uL (1.0-4.3) 10/12/17 08:35 [place] # (Auto) 0.8 K/uL (0.0-0.8) 10/12/17 08:35 Eos # (Auto) 0.1 K/uL (0.0-0.7) 10/12/17 08:35 Baso # (Auto) 0.1 K/uL (0.0-0.2) 10/12/17 08:35 PT 10.4 SECONDS (9.7-12.2) 10/11/17 08:04 INR 0.9 10/11/17 08:04 APTT 37 SECONDS (21-34) H D 10/12/17 08:35 D-Dimer, Quantitative 388 ng/mlDDU (0-243) H 10/11/17 08:04 Sodium 133 mmol/L (132-148) 10/12/17 08:35 Potassium 4.6 mmol/L (3.6-5.2) 10/12/17 08:35 Chloride 95 mmol/L (98-107) L 10/12/17 08:35 Carbon Dioxide 21 mmol/L (22-30) L 10/12/17 08:35 Anion Gap 21 (10-20) H 10/12/17 08:35 BUN 36 mg/dL (7-17) H 10/12/17 08:35 Creatinine 1.2 mg/dL (0.7-1.2) 10/12/17 08:35 Est GFR ( Amer) 52 10/12/17 08:35 Est GFR (Non-Af Amer) 43 10/12/17 08:35 POC Glucose (mg/dL) 181 mg/dL (65-110) H 10/12/17 11:23 Random Glucose 386 mg/dL (65-105) H 10/12/17 08:35 Lactic Acid 3.2 mmol/L (0.7-2.1) H 10/11/17 07:56 Calcium 9.4 mg/dl (8.6-10.4) 10/12/17 08:35 Total Bilirubin 0.8 mg/dL (0.2-1.3) 10/12/17 08:35 AST 32 U/L (14-36) 10/12/17 08:35 ALT 21 U/L (9-52) 10/12/17 08:35 Alkaline Phosphatase 66 U/L (38-126) 10/12/17 08:35 Troponin I < 0.0120 ng/mL (0.00-0.120) 10/11/17 07:36 NT-Pro-B Natriuret Pep 66.7 pg/mL (0-900) 10/11/17 07:36 Total Protein 7.6 g/dL (6.3-8.3) 10/12/17 08:35 Albumin 3.9 g/dL (3.5-5.0) 10/12/17 08:35 Globulin 3.7 gm/dL (2.2-3.9) 10/12/17 08:35 Albumin/Globulin Ratio 1.0 (1.0-2.1) 10/12/17 08:35 Lipase 146 U/L (23-300) 10/11/17 07:36 Urine Color Yellow (YELLOW) 10/11/17 07:36 Urine Clarity Clear (Clear) 10/11/17 07:36 Urine pH 7.0 (5.0-8.0) 10/11/17 07:36 Ur Specific [place] 1.016 (1.003-1.030) 10/11/17 07:36 Urine Protein 2+ mg/dL (NEGATIVE) H 10/11/17 07:36 Urine Glucose (UA) 3+ mg/dL (Normal) H 10/11/17 07:36 Urine Ketones Negative mg/dL (NEGATIVE) 10/11/17 07:36 Urine Blood Negative (NEGATIVE) 10/11/17 07:36 Urine Nitrate Negative (NEGATIVE) 10/11/17 07:36 Urine Bilirubin Negative (NEGATIVE) 10/11/17 07:36 Urine Urobilinogen Normal mg/dL (0.2-1.0) 10/11/17 07:36 Ur Leukocyte Esterase Neg [place]/uL (Negative) 10/11/17 07:36 Urine WBC (Auto) 1 /hpf (0-5) 10/11/17 07:36 Urine RBC (Auto) 1 /hpf (0-3) 10/11/17 07:36 Ur Squamous Epith Cells 1 /hpf (0-5) 10/11/17 07:36 Urine Bacteria Rare (<OCC) 10/11/17 07:36 Hyaline Casts 0-2 /lpf (0-2) 10/11/17 07:36 Serum Ketones Negative (NEGATIVE) 10/11/17 07:36 Attending/Attestation - Attestation I have personally seen and examined this patient.: Yes I have fully participated in the care of the patient.: Yes I have reviewed all pertinent clinical information, including history, physical exam and plan: Yes Notes (Text): Patient was seen and examined this morning. She states that her dizziness is better. patient was lying comfortable on bed bed during examination. Patient's daughter wanted her to go to rehab due to her decline in ambulation. patient has redness around Peg site need to be taken care at rehab. Patient came with sacral ulcer/redness stage 1 . Nursing staff should continue to turn and reposition pt q2hrs. Wound care at rehab. Patient will get benefit from rehab placement I agree with the resident's documentation of the assessment and the plan
[2017-10-12] MEDS: Lactobacillus Acidophilus 500 MU Cap PEG SCH ×2 (10:03→17:20)
[2017-10-12 16:02] VITALS: BP 128/75; PULSE 95; TEMP 98.1; O2SAT 95
== END 2017-10-12 18:07 ==
LOC: C.ER 06:20 → C.9E 12:59 → C.5S 14:15 → C.3T 15:56
PROVIDERS: ADMIT Internal Medicine; ATTEND Internal Medicine
DX: E86.0 Dehydration (principal); E11.9 Type 2 diabetes mellitus without complications; I11.0 Hypertensive heart disease with heart failure; I25.10 Atherosclerotic heart disease of native coronary artery without angina pectoris; I50.9 Heart failure, unspecified; J44.9 Chronic obstructive pulmonary disease, unspecified; K22.0 Achalasia of cardia; M06.9 Rheumatoid arthritis, unspecified; Z79.84 Long term (current) use of oral hypoglycemic drugs; Z87.891 Personal history of nicotine dependence; Z95.0 Presence of cardiac pacemaker; Z95.1 Presence of aortocoronary bypass graft; Z95.5 Presence of coronary angioplasty implant and graft
CPT/HCPCS: 36415; 70450; 71045; 78582; 80053; 81001; 82009; 82948; 83605; 83690; 83880; 84484; 85025; 85378; 85610; 85730; 87040; 87086; 97163; 97166; 97530; 99285; A9524; A9558; G0378; G8978; G8979; G8987; G8988; J1644; J7030; J7040

== ENCOUNTER 2017-11-09 20:43 | Inpatient (IN) | payer MEDICARE ==
[2017-11-09 20:55] VITALS: BMI 20.6
[2017-11-09] MEDS ORDERED: Sodium Chloride 0.9% 1,000 ML IV ONE (21:02)
--- NOTE | 2017-11-09 21:02 | C.PDOC ---
History Of Present Illness Patient sent from [facility] for increased lethargy and blood sugar. As per EMS, Patient was recently diagnosed by pneumonia. Patient has fever but no chills or diarrhea. Time Seen by Provider: 11/09/17 21:02 Chief Complaint (Nursing): High Blood Sugar History Per: EMS History/Exam Limitations: clinical condition Onset/Duration Of Symptoms: Hrs Current Symptoms Are (Timing): Still Present Severity: Severe Pain Scale Rating Of: 8 Current Diabetic Medications: Insulin Causative (Exacerbating) Factor(s): denies: Missed A Meal, Ate Less Than Normal , Accidentially Took To Much Medication, Missed Taking Medication, Recent Steroids, Recent Change In Diet Associated Infectious Symptoms: denies: Nausea, Vomiting, Diarrhea Treatment Prior To Provider Evaluation: Other (Insulin) Response To Treatment: No Response Recent travel outside of the [place]: No Additional History Per: [facility] Past Medical History Reviewed: Historical Data, Nursing Documentation, Vital Signs Vital Signs: Last Vital Signs Temp 100.6 F H 11/09/17 22:35 Pulse 104 H 11/09/17 22:35 Resp 24 11/09/17 22:35 BP 135/75 11/09/17 22:35 Pulse Ox 97 11/09/17 22:35 - Medical History PMH: Anxiety, Arthritis, Bronchitis, CAD, Cardia Arrhythmia, CHF, COPD, Diabetes , GERD (esophageal stricture), HTN, Hypercholesterolemia, Osteoporosis, Pneumonia, Rheumatoid Arthritis Surgical History: CABG (12/16/1991), Carotid Endarterectomy (06/13/05), Coronary Stent, Pacemaker - [facility] Procedures CHANGE OTHER DEVICE IN ABDOMINAL WALL, EXTERNAL APPROACH (08/03/15) CONTR CEREBR ARTERIOGRAM (06/13/05) CONTRAST AORTOGRAM (06/13/05) CONTRAST ARTERIOGRAM NEC (05/23/12) CORONAR ARTERIOGR-2 CATH (05/23/12) ENDOSC POLYPECTOMY OF LG INTEST (06/28/14) ENTERAL INFUSION OF CONCENTRATED NUT. SUBSTANCES (10/01/14) HEAD & NECK ENDARTER NEC (06/13/05) INJECT ANTICOAGULANT (06/13/05) INSERT PACE, SINGL HAYLEY IN CHEST SUBCU/FASCIA, OPEN (03/05/16) INSERTION OF ENDOTRACHEAL AIRWAY INTO TRACHEA, VIA OPENING (03/05/16) INSERTION OF INFUSION DEV INTO SUP VENA CAVA, PERC APPROACH (03/05/16) INSERTION OF ONE VASCULAR STENT (05/23/12) INSERTION OF PACEMAKER LEAD INTO R VENTRICLE, PERC APPROACH (03/05/16) INSRT OF DRUG-ELUTING CORON ARTERY STENTS(S) (05/23/12) INTRODUCTION OF NUTRITIONAL INTO UP GI, VIA OPENING (03/05/16) INTRODUCTION OF VASOPRESSOR INTO CENTRAL VEIN, PERC APPROACH (03/05/16) LEFT HEART CARDIAC CATH (05/23/12) LT HEART ANGIOCARDIOGRAM (05/23/12) MEASUREMENT OF CARDIAC PACEMAKER, EXTERNAL APPROACH (01/27/17) PACKED CELL TRANSFUSION (06/28/14) PERCUTANEOUS TRANSLUMINAL CORONARY ANGIOPLASTY [PTCA] (05/23/12) PERCUTANEOUS [ENDOSCOPIC] GASTROSTOMY [PEG] (10/01/14) PERFORMANCE OF CARDIAC PACING, CONTINUOUS (03/05/16) PROCEDURE ON SINGLE VESSEL (05/23/12) REPLACE GASTROSTOMY TUBE (02/09/15) RESPIRATORY VENTILATION, 24-96 CONSECUTIVE HOURS (03/05/16) Family History: States: No Known Family Hx - Social History Hx Tobacco Use: No Hx Alcohol Use: No Hx Substance Use: No - Immunization History Hx Tetanus Toxoid Vaccination: No Hx Influenza Vaccination: No Hx Pneumococcal Vaccination: No Review Of Systems Review Of Systems: ROS cannot be obtained secondary to pt's inabilty to answer questions. (Due to clinical condition) Physical Exam - Physical Exam Appears: Non-toxic, Other (lethargic; responds to pain ) Skin: Warm, Dry Head: Normacephalic Eye(s): bilateral: Normal Inspection Oral Mucosa: Dry Teeth: Other (Poor dentition) Neck: Trachea Midline, Supple Chest: Symmetrical, No Tenderness, Other (cabg scar, pacer in left chest) Cardiovascular: Rhythm Regular Respiratory: No Decreased Breath Sounds, No Rales, Rhonchi (Scattered), No Wheezing Gastrointestinal/Abdominal: Soft, No Tenderness, No Distention, No Guarding, No Rebound, Other (peg in place) Back: No CVA Tenderness Extremity: Normal ROM, No Tenderness, No Pedal Edema, No Deformity, No Swelling Extremity: Bilateral: Atraumatic, Normal Color And Temperature Pulses: Left Dorsalis Pedis: Normal, Right Dorsalis Pedis: Normal Neurological/Psych: Eyes Open With Command, Slow To Respond With Command Gait: Unable To Assess ED Course And Treatment - Laboratory Results Result Diagrams: 11/09/17 21:07 11/09/17 21:07 ECG: Interpreted By Me, Viewed By Me ECG Rhythm: Sinus Rhythm (102), R BBB, Nonspecific Changes (lvh) O2 Sat by Pulse Oximetry: 97 (RA) Pulse Ox Interpretation: Normal (inf lat ischemic changes) - Radiology CXR Interpretation: Yes: Infiltrates, Cardiomegaly, Other (pacer left, cabg). No: Fracture, Pnemothorax Progress Note: Administered IV fluids and Tylenol. Ordered CXR, EKG, blood work , urinalysis, and blood and urine culture. Critical Care Time - Critical Care Note Total Time (in mins): 30 Documented critical care: time excludes all time spent performing seperately billable procedures. Disposition Discussed With : Luis Manuel Patel Comment: accepted the pt on his service and took over the care at 11:14 PM Doctor Will See Patient In The: ED Counseled Patient/Family Regarding: Studies Performed, Diagnosis - Disposition Disposition: HOSPITALIZED Disposition Time: 21:02 Condition: GUARDED Forms: [employer] (Bengali) - POA Present On Arrival: Poor Glycemic Control - Clinical Impression Clinical Impression: Hyperglycemia, Sepsis, Bandemia, Pneumonia - Scribe Statement The provider has reviewed the documentation as recorded by the Scribe Aurora Cabrera All medical record entries made by the Scribe were at my direction and personally dictated by me. I have reviewed the chart and agree that the record accurately reflects my personal performance of the history, physical exam, medical decision making, and the department course for this patient. I have also personally directed, reviewed, and agree with the discharge instructions and disposition. Decision To Admit - Pt Status Changed To: Hospital Disposition Of: Inpatient - Admit Certification Admit to Inpatient:: After my assessment, the patient will require hospitalization for at least two midnights. This is because of the severity of symptoms shown, intensity of services needed, and/or the medical risk in this patient being treated as an outpatient. - InPatient: Physician Admission Certification: I certify that this patient requires 2 or more midnights of care for the following reason:: After my assessment, the patient will require hospitalization for at least two midnights. This is because of the severity of symptoms shown, intensity of services needed, and/or the medical risk in this patient being treated as an outpatient. - . Bed Request Type: Telemetry Admitting Physician: Luis Manuel Patel Patient Diagnosis: Hyperglycemia, Sepsis, Bandemia, Pneumonia
[2017-11-09 21:10] LABS: BASO % 0.2 % (0.0-2.0); LYMPH # 0.7 K/uL (1.0-4.3); LYMPH % 6.1 % (20.0-40.0); MEAN CELL VOLUME 93.3 fL (81.0-99.0); MEAN CORPUSCULAR HEMOGLOBIN 31.2 pg (27.0-31.0); MEAN CORPUSCULAR HGB CONC 33.4 g/dL (33.0-37.0); MEAN PLATELET VOLUME 8.5 fL (7.2-11.7); MONO # 0.9 K/uL (0.0-0.8); MONO % 7.3 % (0.0-10.0); NEUT # 10.2 K/uL (1.8-7.0); NEUT % 86.4 % (50.0-75.0); NRBC % 0.1 % (0.0-2.0); PLATELET COUNT 337 K/uL (130-400); RBC 4.17 Mil/uL (3.80-5.20); RED CELL DISTRIBUTION WIDTH 13.7 % (11.5-14.5); WHITE BLOOD COUNT 11.9 K/uL (4.8-10.8)
[2017-11-09] MEDS ORDERED: Gentamicin 80 mg/2mL Inj. IVPB STA (21:39)
[2017-11-09 21:49] LABS: ALB/GLOB RATIO 0.9 (1.0-2.1); ALBUMIN 4.7 g/dL (3.5-5.0); ALT/SGPT < 6 U/L (9-52); AST/SGOT 33 U/L (14-36); BLOOD UREA NITROGEN 47 mg/dL (7-17); CALCIUM 11.4 mg/dl (8.6-10.4); GFR AFRICAN-AMERICAN 57; GFR NON-AFRICAN AMERICAN 47; LIPASE 104 U/L (23-300)
[2017-11-09 21:57] LABS: ABG ALLEN TEST POS; ARTERIAL BLOOD GAS HCO3 28.5 mmol/L (21-28); ARTERIAL BLOOD GAS PCO2 41 mm/Hg (35-45); ARTERIAL BLOOD GAS PH 7.46 (7.35-7.45); ARTERIAL BLOOD GAS PO2 53 mm/Hg (80-100); ARTERIAL BLOOD GAS TCO2 30.5 mmol/L (22-28)
[2017-11-09] MEDS ORDERED: Vancomycin 1 gm/NS 200 ml 1 GM/200 ML BAG IVPB STA (21:57)
[2017-11-09] MEDS ORDERED: GENTAMICIN IVPB ONE (22:00)
[2017-11-09] MEDS ORDERED: SODIUM CHLORIDE 0.9% IVPB ONE (22:00)
[2017-11-09 22:12] LABS: SQUAMOUS EPITHIAL 22 /hpf (0-5); URINE AMORPHOUS SEDIMENT RARE /ul (<OCC); URINE BACTERIA RARE (<OCC); URINE BILIRUBIN NEGATIVE (NEGATIVE); URINE BLOOD 3+ (NEGATIVE); URINE CLARITY Hazy (Clear); URINE COLOR Yellow (YELLOW); URINE GLUCOSE (UA) 3+ mg/dL (Normal); URINE LEUKOCYTE ESTERASE NEG Leu/uL (Negative); URINE PROTEIN 1+ mg/dL (NEGATIVE); URINE UROBILINOGEN NORMAL mg/dL (0.2-1.0)
[2017-11-09 22:19] LABS: BANDS 5 % (0-2); LYMPHOCYTE 8 % (20-40); MONOCYTE 4 % (0-10); NEUTROPHIL 83 % (50-75); PLATELET ESTIMATE NORMAL (NORMAL); TOTAL CELLS COUNTED 100
--- NOTE | 2017-11-09 23:07 | CT ---
EXAM: CT Head Without Intravenous Contrast CLINICAL HISTORY: 87 years old, female; Signs and symptoms; Altered mental status/memory loss; Additional info: Change ms, lethargy TECHNIQUE: Axial computed tomography images of the head/brain without intravenous contrast. All CT scans at this facility use one or more dose reduction techniques, viz.: automated exposure control; ma/kV adjustment per patient size (including targeted exams where dose is matched to indication; i.e. head); or iterative reconstruction technique. COMPARISON: CT - HEAD W/O CONTRAST 2015-10-12 21:28 FINDINGS: Brain: Prominence of the sulci and ventricular system consistent with atrophy. Hypodensity in the white matter consistent with chronic small vessel disease. No intracranial mass, mass effect, or midline shift. No hemorrhage. Ventricles: Unremarkable. No ventriculomegaly. Bones/joints: Unremarkable. No acute fracture. Soft tissues: Unremarkable. Sinuses: Sphenoid sinus mucosal thickening. Mastoid air cells: Unremarkable as visualized. No mastoid effusion. Orbits: The patient is obliquely positioned in the gantry. IMPRESSION: No acute intracranial abnormality.
[2017-11-09] MEDS: Sodium Chloride 0.9% 1,000 ML IV SCH (23:58)
--- NOTE | 2017-11-10 08:44 | CP.PCM.HP ---
Past Patient History - Infectious Disease Hx of Infectious Diseases: None - Past Medical History & Family History Past Medical History?: Yes - Past Social History Smoking Status: Unknown If Ever Smoked - CARDIAC Hx Cardia Arrhythmia: Yes Hx Congestive Heart Failure: Yes Hx Hypercholesterolemia: Yes Hx Hypertension: Yes Hx Pacemaker: Yes - PULMONARY Hx Bronchitis: Yes Hx Chronic Obstructive Pulmonary Disease (COPD): Yes Hx Pneumonia: Yes - NEUROLOGICAL Hx Seizures: No - HEENT Hx HEENT Problems: Yes Hx Cataracts: Yes (2000 Rt.Eye,2009Left Eye) - RENAL Hx Chronic Kidney Disease: No - ENDOCRINE/METABOLIC Hx Diabetes Mellitus Type 2: Yes - HEMATOLOGICAL/ONCOLOGICAL Hx Human Immunodeficiency Virus (HIV): No - INTEGUMENTARY Hx Dermatological Problems: No - MUSCULOSKELETAL/RHEUMATOLOGICAL Hx Falls: Yes - GASTROINTESTINAL Hx Gastrointestinal Disorders: Yes Hx Colitis: Yes Hx Gastroesophageal Reflux: Yes HX Swallowing Problems: Yes (Achalasia. 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) Hx Coronary Stent: Yes - ANESTHESIA Hx Anesthesia: Yes Hx Anesthesia Reactions: No Hx Malignant Hyperthermia: No Meds Allergies/Adverse Reactions: Allergies Allergy/AdvReac Type Severity Reaction Status Date / Time azithromycin [From Zithromax] Allergy Verified 11/09/17 20:54 ciprofloxacin HCl Allergy Verified 11/09/17 20:54 [From Cipro] diphenhydramine HCl Allergy Verified 11/09/17 20:54 [From Benadryl] fish oil Allergy Verified 11/09/17 20:54 iodine Allergy Verified 11/09/17 20:54 losartan potassium Allergy Verified 11/09/17 20:54 [From Cozaar] metronidazole [From Flagyl] Allergy Verified 11/09/17 20:54 nitroglycerin Allergy Verified 11/09/17 20:54 Penicillins Allergy Verified 11/09/17 20:54 sulfamethoxazole Allergy Verified 11/09/17 20:54 [From Bactrim] trimethoprim [From Bactrim] Allergy Verified 11/09/17 20:54 zolpidem Allergy Verified 11/09/17 20:54 clopidogrel bisulfate AdvReac Verified 11/09/17 20:54 [From Plavix] Results - Vital Signs Recent Vital Signs: Last Vital Signs Temp 97.3 F L 11/10/17 07:30 Pulse 110 H 11/10/17 07:30 Resp 24 11/10/17 07:30 BP 109/76 11/10/17 07:30 Pulse Ox 96 11/10/17 07:30 - Labs Result Diagrams: 11/09/17 21:07 11/09/17 21:07 Labs: Laboratory Results - last 24 hr 11/09/17 11/09/17 11/09/17 20:49 21:07 21:07 WBC 11.9 H RBC 4.17 Hgb 13.0 Hct 38.9 MCV 93.3 MCH 31.2 H MCHC 33.4 RDW 13.7 Plt Count 337 MPV 8.5 Neut % (Auto) 86.4 H Lymph % (Auto) 6.1 L [place] % (Auto) 7.3 Eos % (Auto) 0.0 Baso % (Auto) 0.2 Neut # (Auto) 10.2 H Lymph # (Auto) 0.7 L [place] # (Auto) 0.9 H Eos # (Auto) 0.0 Baso # (Auto) 0.0 Neutrophils % (Manual) 83 H Band Neutrophils % 5 H Lymphocytes % (Manual) 8 L Monocytes % (Manual) 4 Platelet Estimate Normal Puncture Site pCO2 pO2 HCO3 ABG pH ABG Total CO2 ABG O2 Saturation ABG Base Excess Scout Test ABG Potassium A-a O2 Difference Respiratory Index Glucose Lactate Liter Flow FiO2 Crit Value Called To Crit Value Called By Crit Value Read Back Blood Gas Notified Time Sodium 146 Potassium 4.5 Chloride 97 L Carbon Dioxide 25 Anion Gap 28 H BUN 47 H Creatinine 1.1 Est GFR ( Amer) 57 Est GFR (Non-Af Amer) 47 POC Glucose (mg/dL) 418 H* Random Glucose 543 H* D Lactic Acid Calcium 11.4 H Total Bilirubin 0.7 AST 33 ALT < 6 L D Alkaline Phosphatase 70 Total Protein 10.0 H Albumin 4.7 Globulin 5.3 H Albumin/Globulin Ratio 0.9 L Lipase 104 Arterial Blood Potassium Urine Color Urine Clarity Urine pH Ur Specific [place] Urine Protein Urine Glucose (UA) Urine Ketones Urine Blood Urine Nitrate Urine Bilirubin Urine Urobilinogen Ur Leukocyte Esterase Urine WBC (Auto) Urine RBC (Auto) Ur Squamous Epith Cells Amorphous Sediment Urine Bacteria Serum Ketones Negative 11/09/17 11/09/17 11/10/17 21:50 21:57 02:46 WBC RBC Hgb Hct MCV MCH MCHC RDW Plt Count MPV Neut % (Auto) Lymph % (Auto) [place] % (Auto) Eos % (Auto) Baso % (Auto) Neut # (Auto) Lymph # (Auto) [place] # (Auto) Eos # (Auto) Baso # (Auto) Neutrophils % (Manual) Band Neutrophils % Lymphocytes % (Manual) Monocytes % (Manual) Platelet Estimate Puncture Site Rr pCO2 41 pO2 53 L HCO3 28.5 H ABG pH 7.46 H ABG Total CO2 30.5 H ABG O2 Saturation 93.0 L ABG Base Excess 4.9 H Scout Test Pos ABG Potassium 3.9 A-a O2 Difference 131.0 Respiratory Index 2.5 Glucose 443 H* D Lactate 4.5 H* Liter Flow 3.0 FiO2 33.0 Crit Value Called To Kristie gil Crit Value Called By Mr Crit Value Read Back Y Blood Gas Notified Time 2154 Sodium 146.0 Potassium Chloride 103.0 Carbon Dioxide Anion Gap BUN Creatinine Est GFR ( Amer) Est GFR (Non-Af Amer) POC Glucose (mg/dL) 194 H Random Glucose Lactic Acid Calcium Total Bilirubin AST ALT Alkaline Phosphatase Total Protein Albumin Globulin Albumin/Globulin Ratio Lipase Arterial Blood Potassium 3.9 Urine Color Yellow Urine Clarity Hazy Urine pH 5.0 Ur Specific [place] 1.029 Urine Protein 1+ H Urine Glucose (UA) 3+ H Urine Ketones Negative Urine Blood 3+ H Urine Nitrate Negative Urine Bilirubin Negative Urine Urobilinogen Normal Ur Leukocyte Esterase Neg Urine WBC (Auto) 4 Urine RBC (Auto) 10 H Ur Squamous Epith Cells 22 H Amorphous Sediment Rare H Urine Bacteria Rare Serum Ketones 11/10/17 11/10/17 04:04 06:13 WBC RBC Hgb Hct MCV MCH MCHC RDW Plt Count MPV Neut % (Auto) Lymph % (Auto) [place] % (Auto) Eos % (Auto) Baso % (Auto) Neut # (Auto) Lymph # (Auto) [place] # (Auto) Eos # (Auto) Baso # (Auto) Neutrophils % (Manual) Band Neutrophils % Lymphocytes % (Manual) Monocytes % (Manual) Platelet Estimate Puncture Site pCO2 pO2 HCO3 ABG pH ABG Total CO2 ABG O2 Saturation ABG Base Excess Scout Test ABG Potassium A-a O2 Difference Respiratory Index Glucose Lactate Liter Flow FiO2 Crit Value Called To Crit Value Called By Crit Value Read Back Blood Gas Notified Time Sodium Potassium Chloride Carbon Dioxide Anion Gap BUN Creatinine Est GFR ( Amer) Est GFR (Non-Af Amer) POC Glucose (mg/dL) 239 H Random Glucose Lactic Acid 1.8 Calcium Total Bilirubin AST ALT Alkaline Phosphatase Total Protein Albumin Globulin Albumin/Globulin Ratio Lipase Arterial Blood Potassium Urine Color Urine Clarity Urine pH Ur Specific [place] Urine Protein Urine Glucose (UA) Urine Ketones Urine Blood Urine Nitrate Urine Bilirubin Urine Urobilinogen Ur Leukocyte Esterase Urine WBC (Auto) Urine RBC (Auto) Ur Squamous Epith Cells Amorphous Sediment Urine Bacteria Serum Ketones
--- NOTE | 2017-11-10 08:46 | CP.CCUPN ---
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 Patient transferred to snf with acute respiratory distress. CODE sepsis is called in the emergency room. Patient was in severe respiratory distress in the sixth floor, immediately patient was transferred to ICU. I spoke to the patient's daughter and explained the patient's condition. Currently patient isn't tachypneic, not recorded. Hypoxia noted. Currently on FiO2 of 100% Chest bilateral diffuse rhonchi and wheezing noted. Irregular heartbeat noted. Abdominal PEG tube discharge noted Peter edema Patient is somewhat lethargic Patient's labs noted, severe hypercalcemia noted, possible dehydration percent, also elevated blood sugar, lactate is improving Assessment/recommendation: 87-year-old female with multiple medical history now admitted with a possible acute respiratory distress secondary to possible aspiration pneumonia Patient may need mechanical ventilatory support Central line Discussed with the patient's daughter in detail Condition is critical. will follow the patient. Full support CCU Objective - Vital Signs / Intake & Output Vital Signs (Last 4 hours): Vital Signs Temp Pulse Resp BP Pulse Ox 11/10/17 07:30 97.3 F L 110 H 24 109/76 96 11/10/17 06:40 114 H 20 134/84 11/10/17 06:24 184/102 H 11/10/17 05:50 139 H 20 184/102 H 100 Intake and Output (Last 8hrs): Intake & Output 11/09/17 11/10/17 11/10/17 22:59 06:59 14:59 Intake Total 510 Output Total 950 Balance -440 Weight 102 lb Intake: Intake, IV Amount 450 Left Wrist 450 Tube Feeding 60 Output: Urine 950 Urethral (Gregory) 950 Other: Voiding Method Indwelling Catheter - Medications Active Medications: Active Medications Generic Name Dose Route Start Last Admin Trade Name Freq PRN Reason Stop Dose Admin Heparin Sodium (Porcine) 5,000 units 11/10/17 06:00 11/10/17 05:21 Heparin SC 5,000 units Q8 JUDY Administration Sodium Chloride 1,000 mls @ 100 mls/hr 11/09/17 23:45 11/09/17 23:58 Sodium Chloride 0.9% IV 100 mls/hr .Q10H JUDY Administration Insulin Human Regular 0 unit 11/10/17 07:30 Novolin R SC ACHS JUDY Protocol Metoprolol Tartrate 75 mg 11/10/17 07:00 11/10/17 06:24 Lopressor PEG 75 mg Q12H JUDY Administration - Patient Studies Lab Studies: Lab Studies 11/10/17 11/10/17 11/10/17 Range/Units 06:13 04:04 02:46 WBC (4.8-10.8) K/uL RBC (3.80-5.20) Mil/uL Hgb (11.0-16.0) g/dL Hct (34.0-47.0) % MCV (81.0-99.0) fL MCH (27.0-31.0) pg MCHC (33.0-37.0) g/dL RDW (11.5-14.5) % Plt Count (130-400) K/uL MPV (7.2-11.7) fL Neut % (Auto) (50.0-75.0) % Lymph % (Auto) (20.0-40.0) % [place] % (Auto) (0.0-10.0) % Eos % (Auto) (0.0-4.0) % Baso % (Auto) (0.0-2.0) % Neut # (Auto) (1.8-7.0) K/uL Lymph # (Auto) (1.0-4.3) K/uL [place] # (Auto) (0.0-0.8) K/uL Eos # (Auto) (0.0-0.7) K/uL Baso # (Auto) (0.0-0.2) K/uL Neutrophils % (Manual) (50-75) % Band Neutrophils % (0-2) % Lymphocytes % (Manual) (20-40) % Monocytes % (Manual) (0-10) % Platelet Estimate (NORMAL) Puncture Site pCO2 (35-45) mm/Hg pO2 (80-100) mm/Hg HCO3 (21-28) mmol/L ABG pH (7.35-7.45) ABG Total CO2 (22-28) mmol/L ABG O2 Saturation (95-98) % ABG Base Excess (-2.0-3.0) mmol/L Scout Test ABG Potassium (3.6-5.2) mmol/L A-a O2 Difference mm/Hg Respiratory Index Glucose (65-105) mg/dl Lactate (0.7-2.1) mmol/L Liter Flow FiO2 % Crit Value Called To Crit Value Called By Crit Value Read Back Blood Gas Notified Time Sodium (132-148) mmol/L Potassium (3.6-5.2) mmol/L Chloride (98-107) mmol/L Carbon Dioxide (22-30) mmol/L Anion Gap (10-20) BUN (7-17) mg/dL Creatinine (0.7-1.2) mg/dL Est GFR ( Amer) Est GFR (Non-Af Amer) POC Glucose (mg/dL) 239 H 194 H (65-110) mg/dL Random Glucose (65-105) mg/dL Lactic Acid 1.8 (0.7-2.1) mmol/L Calcium (8.6-10.4) mg/dl Total Bilirubin (0.2-1.3) mg/dL AST (14-36) U/L ALT (9-52) U/L Alkaline Phosphatase (38-126) U/L Total Protein (6.3-8.3) g/dL Albumin (3.5-5.0) g/dL Globulin (2.2-3.9) gm/dL Albumin/Globulin Ratio (1.0-2.1) Lipase (23-300) U/L Arterial Blood Potassium (3.6-5.2) mmol/L Urine Color (YELLOW) Urine Clarity (Clear) Urine pH (5.0-8.0) Ur Specific [place] (1.003-1.030) Urine Protein (NEGATIVE) mg/dL Urine Glucose (UA) (Normal) mg/dL Urine Ketones (NEGATIVE) mg/dL Urine Blood (NEGATIVE) Urine Nitrate (NEGATIVE) Urine Bilirubin (NEGATIVE) Urine Urobilinogen (0.2-1.0) mg/dL Ur Leukocyte Esterase (Negative) Sylvie/uL Urine WBC (Auto) (0-5) /hpf Urine RBC (Auto) (0-3) /hpf Ur Squamous Epith Cells (0-5) /hpf Amorphous Sediment (<OCC) /ul Urine Bacteria (<OCC) Serum Ketones (NEGATIVE) 11/09/17 11/09/17 11/09/17 Range/Units 21:57 21:50 21:07 WBC (4.8-10.8) K/uL RBC (3.80-5.20) Mil/uL Hgb (11.0-16.0) g/dL Hct (34.0-47.0) % MCV (81.0-99.0) fL MCH (27.0-31.0) pg MCHC (33.0-37.0) g/dL RDW (11.5-14.5) % Plt Count (130-400) K/uL MPV (7.2-11.7) fL Neut % (Auto) (50.0-75.0) % Lymph % (Auto) (20.0-40.0) % [place] % (Auto) (0.0-10.0) % Eos % (Auto) (0.0-4.0) % Baso % (Auto) (0.0-2.0) % Neut # (Auto) (1.8-7.0) K/uL Lymph # (Auto) (1.0-4.3) K/uL [place] # (Auto) (0.0-0.8) K/uL Eos # (Auto) (0.0-0.7) K/uL Baso # (Auto) (0.0-0.2) K/uL Neutrophils % (Manual) (50-75) % Band Neutrophils % (0-2) % Lymphocytes % (Manual) (20-40) % Monocytes % (Manual) (0-10) % Platelet Estimate (NORMAL) Puncture Site Rr pCO2 41 (35-45) mm/Hg pO2 53 L (80-100) mm/Hg HCO3 28.5 H (21-28) mmol/L ABG pH 7.46 H (7.35-7.45) ABG Total CO2 30.5 H (22-28) mmol/L ABG O2 Saturation 93.0 L (95-98) % ABG Base Excess 4.9 H (-2.0-3.0) mmol/L Scout Test Pos ABG Potassium 3.9 (3.6-5.2) mmol/L A-a O2 Difference 131.0 mm/Hg Respiratory Index 2.5 Glucose 443 H* D (65-105) mg/dl Lactate 4.5 H* (0.7-2.1) mmol/L Liter Flow 3.0 FiO2 33.0 % Crit Value Called To Kristie gil Crit Value Called By Crit Value Read Back Y Blood Gas Notified Time 2154 Sodium 146.0 146 (132-148) mmol/L Potassium 4.5 (3.6-5.2) mmol/L Chloride 103.0 97 L (98-107) mmol/L Carbon Dioxide 25 (22-30) mmol/L Anion Gap 28 H (10-20) BUN 47 H (7-17) mg/dL Creatinine 1.1 (0.7-1.2) mg/dL Est GFR ( Amer) 57 Est GFR (Non-Af Amer) 47 POC Glucose (mg/dL) (65-110) mg/dL Random Glucose 543 H* D (65-105) mg/dL Lactic Acid (0.7-2.1) mmol/L Calcium 11.4 H (8.6-10.4) mg/dl Total Bilirubin 0.7 (0.2-1.3) mg/dL AST 33 (14-36) U/L ALT < 6 L D (9-52) U/L Alkaline Phosphatase 70 (38-126) U/L Total Protein 10.0 H (6.3-8.3) g/dL Albumin 4.7 (3.5-5.0) g/dL Globulin 5.3 H (2.2-3.9) gm/dL Albumin/Globulin Ratio 0.9 L (1.0-2.1) Lipase 104 (23-300) U/L Arterial Blood Potassium 3.9 (3.6-5.2) mmol/L Urine Color Yellow (YELLOW) Urine Clarity Hazy (Clear) Urine pH 5.0 (5.0-8.0) Ur Specific [place] 1.029 (1.003-1.030) Urine Protein 1+ H (NEGATIVE) mg/dL Urine Glucose (UA) 3+ H (Normal) mg/dL Urine Ketones Negative (NEGATIVE) mg/dL Urine Blood 3+ H (NEGATIVE) Urine Nitrate Negative (NEGATIVE) Urine Bilirubin Negative (NEGATIVE) Urine Urobilinogen Normal (0.2-1.0) mg/dL Ur Leukocyte Esterase Neg (Negative) Sylvie/uL Urine WBC (Auto) 4 (0-5) /hpf Urine RBC (Auto) 10 H (0-3) /hpf Ur Squamous Epith Cells 22 H (0-5) /hpf Amorphous Sediment Rare H (<OCC) /ul Urine Bacteria Rare (<OCC) Serum Ketones Negative (NEGATIVE) 11/09/17 11/09/17 Range/Units 21:07 20:49 WBC 11.9 H (4.8-10.8) K/uL RBC 4.17 (3.80-5.20) Mil/uL Hgb 13.0 (11.0-16.0) g/dL Hct 38.9 (34.0-47.0) % MCV 93.3 (81.0-99.0) fL MCH 31.2 H (27.0-31.0) pg MCHC 33.4 (33.0-37.0) g/dL RDW 13.7 (11.5-14.5) % Plt Count 337 (130-400) K/uL MPV 8.5 (7.2-11.7) fL Neut % (Auto) 86.4 H (50.0-75.0) % Lymph % (Auto) 6.1 L (20.0-40.0) % [place] % (Auto) 7.3 (0.0-10.0) % Eos % (Auto) 0.0 (0.0-4.0) % Baso % (Auto) 0.2 (0.0-2.0) % Neut # (Auto) 10.2 H (1.8-7.0) K/uL Lymph # (Auto) 0.7 L (1.0-4.3) K/uL [place] # (Auto) 0.9 H (0.0-0.8) K/uL Eos # (Auto) 0.0 (0.0-0.7) K/uL Baso # (Auto) 0.0 (0.0-0.2) K/uL Neutrophils % (Manual) 83 H (50-75) % Band Neutrophils % 5 H (0-2) % Lymphocytes % (Manual) 8 L (20-40) % Monocytes % (Manual) 4 (0-10) % Platelet Estimate Normal (NORMAL) Puncture Site pCO2 (35-45) mm/Hg pO2 (80-100) mm/Hg HCO3 (21-28) mmol/L ABG pH (7.35-7.45) ABG Total CO2 (22-28) mmol/L ABG O2 Saturation (95-98) % ABG Base Excess (-2.0-3.0) mmol/L Scout Test ABG Potassium (3.6-5.2) mmol/L A-a O2 Difference mm/Hg Respiratory Index Glucose (65-105) mg/dl Lactate (0.7-2.1) mmol/L Liter Flow FiO2 % Crit Value Called To Crit Value Called By Crit Value Read Back Blood Gas Notified Time Sodium (132-148) mmol/L Potassium (3.6-5.2) mmol/L Chloride (98-107) mmol/L Carbon Dioxide (22-30) mmol/L Anion Gap (10-20) BUN (7-17) mg/dL Creatinine (0.7-1.2) mg/dL Est GFR ( Amer) Est GFR (Non-Af Amer) POC Glucose (mg/dL) 418 H* (65-110) mg/dL Random Glucose (65-105) mg/dL Lactic Acid (0.7-2.1) mmol/L Calcium (8.6-10.4) mg/dl Total Bilirubin (0.2-1.3) mg/dL AST (14-36) U/L ALT (9-52) U/L Alkaline Phosphatase (38-126) U/L Total Protein (6.3-8.3) g/dL Albumin (3.5-5.0) g/dL Globulin (2.2-3.9) gm/dL Albumin/Globulin Ratio (1.0-2.1) Lipase (23-300) U/L Arterial Blood Potassium (3.6-5.2) mmol/L Urine Color (YELLOW) Urine Clarity (Clear) Urine pH (5.0-8.0) Ur Specific [place] (1.003-1.030) Urine Protein (NEGATIVE) mg/dL Urine Glucose (UA) (Normal) mg/dL Urine Ketones (NEGATIVE) mg/dL Urine Blood (NEGATIVE) Urine Nitrate (NEGATIVE) Urine Bilirubin (NEGATIVE) Urine Urobilinogen (0.2-1.0) mg/dL Ur Leukocyte Esterase (Negative) Sylvie/uL Urine WBC (Auto) (0-5) /hpf Urine RBC (Auto) (0-3) /hpf Ur Squamous Epith Cells (0-5) /hpf Amorphous Sediment (<OCC) /ul Urine Bacteria (<OCC) Serum Ketones (NEGATIVE) Laboratory Results - last 24 hr 11/09/17 11/09/17 11/09/17 20:49 21:07 21:07 WBC 11.9 H RBC 4.17 Hgb 13.0 Hct 38.9 MCV 93.3 MCH 31.2 H MCHC 33.4 RDW 13.7 Plt Count 337 MPV 8.5 Neut % (Auto) 86.4 H Lymph % (Auto) 6.1 L [place] % (Auto) 7.3 Eos % (Auto) 0.0 Baso % (Auto) 0.2 Neut # (Auto) 10.2 H Lymph # (Auto) 0.7 L [place] # (Auto) 0.9 H Eos # (Auto) 0.0 Baso # (Auto) 0.0 Neutrophils % (Manual) 83 H Band Neutrophils % 5 H Lymphocytes % (Manual) 8 L Monocytes % (Manual) 4 Platelet Estimate Normal Puncture Site pCO2 pO2 HCO3 ABG pH ABG Total CO2 ABG O2 Saturation ABG Base Excess Scout Test ABG Potassium A-a O2 Difference Respiratory Index Glucose Lactate Liter Flow FiO2 Crit Value Called To Crit Value Called By Crit Value Read Back Blood Gas Notified Time Sodium 146 Potassium 4.5 Chloride 97 L Carbon Dioxide 25 Anion Gap 28 H BUN 47 H Creatinine 1.1 Est GFR ( Amer) 57 Est GFR (Non-Af Amer) 47 POC Glucose (mg/dL) 418 H* Random Glucose 543 H* D Lactic Acid Calcium 11.4 H Total Bilirubin 0.7 AST 33 ALT < 6 L D Alkaline Phosphatase 70 Total Protein 10.0 H Albumin 4.7 Globulin 5.3 H Albumin/Globulin Ratio 0.9 L Lipase 104 Arterial Blood Potassium Urine Color Urine Clarity Urine pH Ur Specific [place] Urine Protein Urine Glucose (UA) Urine Ketones Urine Blood Urine Nitrate Urine Bilirubin Urine Urobilinogen Ur Leukocyte Esterase Urine WBC (Auto) Urine RBC (Auto) Ur Squamous Epith Cells Amorphous Sediment Urine Bacteria Serum Ketones Negative 11/09/17 11/09/1718 21:50 21:57 02:46 WBC RBC Hgb Hct MCV MCH MCHC RDW Plt Count MPV Neut % (Auto) Lymph % (Auto) [place] % (Auto) Eos % (Auto) Baso % (Auto) Neut # (Auto) Lymph # (Auto) [place] # (Auto) Eos # (Auto) Baso # (Auto) Neutrophils % (Manual) Band Neutrophils % Lymphocytes % (Manual) Monocytes % (Manual) Platelet Estimate Puncture Site Rr pCO2 41 pO2 53 L HCO3 28.5 H ABG pH 7.46 H ABG Total CO2 30.5 H ABG O2 Saturation 93.0 L ABG Base Excess 4.9 H Scout Test Pos ABG Potassium 3.9 A-a O2 Difference 131.0 Respiratory Index 2.5 Glucose 443 H* D Lactate 4.5 H* Liter Flow 3.0 FiO2 33.0 Crit Value Called To Kristie gil Crit Value Called By Mr Crit Value Read Back Y Blood Gas Notified Time 2155 Sodium 146.0 Potassium Chloride 103.0 Carbon Dioxide Anion Gap BUN Creatinine Est GFR ( Amer) Est GFR (Non-Af Amer) POC Glucose (mg/dL) 194 H Random Glucose Lactic Acid Calcium Total Bilirubin AST ALT Alkaline Phosphatase Total Protein Albumin Globulin Albumin/Globulin Ratio Lipase Arterial Blood Potassium 3.9 Urine Color Yellow Urine Clarity Hazy Urine pH 5.0 Ur Specific [place] 1.029 Urine Protein 1+ H Urine Glucose (UA) 3+ H Urine Ketones Negative Urine Blood 3+ H Urine Nitrate Negative Urine Bilirubin Negative Urine Urobilinogen Normal Ur Leukocyte Esterase Neg Urine WBC (Auto) 4 Urine RBC (Auto) 10 H Ur Squamous Epith Cells 22 H Amorphous Sediment Rare H Urine Bacteria Rare Serum Ketones 11/10/17 11/10/17 04:04 06:13 WBC RBC Hgb Hct MCV MCH MCHC RDW Plt Count MPV Neut % (Auto) Lymph % (Auto) [place] % (Auto) Eos % (Auto) Baso % (Auto) Neut # (Auto) Lymph # (Auto) [place] # (Auto) Eos # (Auto) Baso # (Auto) Neutrophils % (Manual) Band Neutrophils % Lymphocytes % (Manual) Monocytes % (Manual) Platelet Estimate Puncture Site pCO2 pO2 HCO3 ABG pH ABG Total CO2 ABG O2 Saturation ABG Base Excess Scout Test ABG Potassium A-a O2 Difference Respiratory Index Glucose Lactate Liter Flow FiO2 Crit Value Called To Crit Value Called By Crit Value Read Back Blood Gas Notified Time Sodium Potassium Chloride Carbon Dioxide Anion Gap BUN Creatinine Est GFR ( Amer) Est GFR (Non-Af Amer) POC Glucose (mg/dL) 239 H Random Glucose Lactic Acid 1.8 Calcium Total Bilirubin AST ALT Alkaline Phosphatase Total Protein Albumin Globulin Albumin/Globulin Ratio Lipase Arterial Blood Potassium Urine Color Urine Clarity Urine pH Ur Specific [place] Urine Protein Urine Glucose (UA) Urine Ketones Urine Blood Urine Nitrate Urine Bilirubin Urine Urobilinogen Ur Leukocyte Esterase Urine WBC (Auto) Urine RBC (Auto) Ur Squamous Epith Cells Amorphous Sediment Urine Bacteria Serum Ketones EKG/Cardiology Studies: Cardiology / EKG Studies 11/09/17 21:02 ELECTROCARDIOGRAM Stat Comment: Mode Of Transportation: BED Reason For Exam: Diabetic Isolation: Contact Fingerstick Blood Sugar Results: 293 Critical Care Progress Note - Nutrition Nutrition: Nutrition Category Date Time Status NPO Diet [DIET] Diets 11/09/17 Breakfast Active
[2017-11-10] MEDS ORDERED: Etomidate 20 mg/10ml Inj IV ONE (09:15)
[2017-11-10] MEDS: (Novolin R) Insulin Human Regular 100 units/ml vial SC SCH ×4 (09:28→17:34)
--- NOTE | 2017-11-10 09:39 | CP.PCM.PN ---
Subjective - Date & Time of Evaluation Date of Evaluation: 11/10/17 Time of Evaluation: 09:37 - Subjective Subjective: Patient become more lethargic, respiratory distress noted, decided to intubate. Spoke to the patient's a daughter already. Procedure intubation. Etomidate 10 mg IV injection given, vocal cord visualized through the laryngoscope, 7.5 size tube inserted, placed at 22 and the lips. Postintubation saturation is 100%, mild hypotension noted fluid bolus given. Hemodynamically otherwise stable now. Also for venous access and emergent triple-lumen catheter was inserted through the right internal jugular vein under sonogram guidance. Patient tolerated the procedure. X-ray ordered to follow the patient Objective - Vital Signs/Intake and Output Vital Signs (last 24 hours): Temp Pulse Resp BP Pulse Ox 97.3 F L 112 H 24 109/76 96 11/10/17 07:30 11/10/17 07:45 11/10/17 07:30 11/10/17 07:30 11/10/17 07:30 Intake and Output: 11/10/17 11/10/17 06:59 18:59 Intake Total 510 Output Total 950 Balance -440 - Medications Medications: Current Medications Albuterol/Ipratropium (Duoneb 3 Mg/0.5 Mg (3 Ml) Ud) 3 ml INH RQ6 [facility] Heparin Sodium (Porcine) (Heparin) 5,000 units SC Q8 [facility] Last Admin: 11/10/17 05:21 Dose: 5,000 units Sodium Chloride (Sodium Chloride 0.9%) 1,000 mls @ 100 mls/hr IV .Q10H [facility] Last Admin: 11/09/17 23:58 Dose: 100 mls/hr Aztreonam 1 gm/ Sodium (Chloride) 100 mls @ 200 mls/hr IVPB Q8H [facility]Y PRN Reason: Protocol Propofol (Diprivan) 1,000 mg in 100 mls @ 1.388 mls/hr IV .Q24H PRN; Protocol; 5 MCG/KG/MIN PRN Reason: TITRATE PER MD ORDER Insulin Human Regular (Novolin R) 0 unit SC ACHS [facility] PRN Reason: Protocol Last Admin: 11/10/17 09:28 Dose: Not Given Metoprolol Tartrate (Lopressor) 75 mg PEG Q12H [facility] Last Admin: 11/10/17 06:24 Dose: 75 mg - Labs Labs: 11/09/17 21:07 11/09/17 21:07
[2017-11-10] MEDS ORDERED: Sodium Chloride 0.9% 250 ML IV ONE (09:41)
[2017-11-10] MEDS: Sodium Chloride 0.9% 1,000 ML IV SCH ×3 (09:46→23:11)
[2017-11-10] MEDS: Aztreonam 1 GM in Sodium Chloride 0.9% 100 ML IVPB SCH ×2 (09:47→17:27)
[2017-11-10 10:10] LABS: ABG ALLEN TEST PO; ARTERIAL BLOOD GAS HCO3 27.7 mmol/L (21-28); ARTERIAL BLOOD GAS HEMOGLOBIN 11.8 g/dL (11.7-17.4); ARTERIAL BLOOD GAS O2 SAT 100.1 % (95-98); ARTERIAL BLOOD GAS PCO2 34 mm/Hg (35-45); ARTERIAL BLOOD GAS PO2 474 mm/Hg (80-100); ARTERIAL BLOOD GAS TCO2 27.5 mmol/L (22-28)
[2017-11-10 10:42] LABS: BASO # 0.1 K/uL (0.0-0.2); BASO % 0.3 % (0.0-2.0); HEMOGLOBIN 10.6 g/dL (11.0-16.0); LYMPH % 5.9 % (20.0-40.0); MEAN CELL VOLUME 92.6 fL (81.0-99.0); MEAN CORPUSCULAR HEMOGLOBIN 31.1 pg (27.0-31.0); MEAN CORPUSCULAR HGB CONC 33.6 g/dL (33.0-37.0); MEAN PLATELET VOLUME 8.4 fL (7.2-11.7); MONO # 1.2 K/uL (0.0-0.8); MONO % 7.3 % (0.0-10.0); NEUT # 14.1 K/uL (1.8-7.0); NEUT % 86.5 % (50.0-75.0); PLATELET COUNT 236 K/uL (130-400); RBC 3.42 Mil/uL (3.80-5.20); RED CELL DISTRIBUTION WIDTH 13.3 % (11.5-14.5); WHITE BLOOD COUNT 16.3 K/uL (4.8-10.8)
--- NOTE | 2017-11-10 10:51 | RAD ---
PROCEDURE: CHEST RADIOGRAPH, 1 VIEW HISTORY: Diabetic COMPARISON: Comparison is made to 10/11/2017 FINDINGS: LUNGS: No evidence of new infiltrate or consolidation in the lungs. PLEURA: No pneumothorax or pleural fluid seen. CARDIOVASCULAR: The cardiac silhouette is normal in size. Post cardiac surgery changes and sternotomy are again noted. Left sided single wire pacemaker or AICD is again noted in place OSSEOUS STRUCTURES: No significant abnormalities. VISUALIZED UPPER ABDOMEN: Normal. OTHER FINDINGS: None. IMPRESSION: No evidence of acute pulmonary disease or significant interval change since the previous exam.
[2017-11-10 11:00] LABS: ALBUMIN 3.5 g/dL (3.5-5.0); ALT/SGPT 20 U/L (9-52); AST/SGOT 30 U/L (14-36); BLOOD UREA NITROGEN 33 mg/dL (7-17); CALCIUM 8.8 mg/dl (8.6-10.4); GFR AFRICAN-AMERICAN > 60; GFR NON-AFRICAN AMERICAN > 60
[2017-11-10 11:29] LABS: BANDS 3 % (0-2); LYMPHOCYTE 6 % (20-40); MONOCYTE 7 % (0-10); NEUTROPHIL 84 % (50-75); PLATELET ESTIMATE NORMAL (NORMAL); TOTAL CELLS COUNTED 100
--- NOTE | 2017-11-10 12:03 | CP.PCM.CON ---
History of Present Illness - History of Present Illness History of Present Illness: INFECTIOUS DISEASE CONSULT: HPI; 87 [facility] [place] [facility] admitted for increasing lethargy and hyperglycemia. As per EMS, Patient was recently diagnosed with pneumonia. Patient has fever of 101.5 on admission on 11/09/17 but no chills or diarrhea. PT WAS TREATED FOR CODE-SEPSIS ON ADMISSION FOUND TO HAVE INCREASED LACTATE LEVEL OF 4.5 AND VANCO/GENTAMYCIN GIVEN. PRESENTLY ON IV AZACTAM AND TOLERATING.INITIAL CT HEAD -VE. PT INTUBATED THIS AM FOR INCREASING LETHARGY. INFECTIOUS DISEASE CONSULT REQUESTED BY PMD FOR SEPSIS HX OBTAINED FROM STAFF. PT HAS MULTIPLE ALLERGIES.-PCN,SULFA,FLAGYL,AZITHROMYCIN,CIPRO -[place]. PMH: Anxiety, Arthritis, Bronchitis, CAD, Cardia Arrhythmia, CHF, COPD, Diabetes , GERD (esophageal stricture), HTN, Hypercholesterolemia, Osteoporosis, Pneumonia, Rheumatoid Arthritis Surgical History: CABG (12/16/1991), Carotid Endarterectomy (06/13/05), Coronary Stent, Pacemaker - [facility] Procedures CHANGE OTHER DEVICE IN ABDOMINAL WALL, EXTERNAL APPROACH (08/03/15) CONTR CEREBR ARTERIOGRAM (06/13/05) CONTRAST AORTOGRAM (06/13/05) CONTRAST ARTERIOGRAM NEC (05/23/12) CORONAR ARTERIOGR-2 CATH (05/23/12) ENDOSC POLYPECTOMY OF LG INTEST (06/28/14) ENTERAL INFUSION OF CONCENTRATED NUT. SUBSTANCES (10/01/14) HEAD & NECK ENDARTER NEC (06/13/05) INJECT ANTICOAGULANT (06/13/05) INSERT PACE, SINGL HAYLEY IN CHEST SUBCU/FASCIA, OPEN (03/05/16) INSERTION OF ENDOTRACHEAL AIRWAY INTO TRACHEA, VIA OPENING (03/05/16) INSERTION OF INFUSION DEV INTO SUP VENA CAVA, PERC APPROACH (03/05/16) INSERTION OF ONE VASCULAR STENT (05/23/12) INSERTION OF PACEMAKER LEAD INTO R VENTRICLE, PERC APPROACH (03/05/16) INSRT OF DRUG-ELUTING CORON ARTERY STENTS(S) (05/23/12) INTRODUCTION OF NUTRITIONAL INTO UP GI, VIA OPENING (03/05/16) INTRODUCTION OF VASOPRESSOR INTO CENTRAL VEIN, PERC APPROACH (03/05/16) LEFT HEART CARDIAC CATH (05/23/12) LT HEART ANGIOCARDIOGRAM (05/23/12) MEASUREMENT OF CARDIAC PACEMAKER, EXTERNAL APPROACH (01/27/17) PACKED CELL TRANSFUSION (06/28/14) PERCUTANEOUS TRANSLUMINAL CORONARY ANGIOPLASTY [PTCA] (05/23/12) PERCUTANEOUS [ENDOSCOPIC] GASTROSTOMY [PEG] (10/01/14) PERFORMANCE OF CARDIAC PACING, CONTINUOUS (03/05/16) PROCEDURE ON SINGLE VESSEL (05/23/12) REPLACE GASTROSTOMY TUBE (02/09/15) RESPIRATORY VENTILATION, 24-96 CONSECUTIVE HOURS (03/05/16) Family History: States: No Known Family Hx - Social History Hx Tobacco Use: No Hx Alcohol Use: No Hx Substance Use: No - Immunization History Hx Tetanus Toxoid Vaccination: No Hx Influenza Vaccination: No Hx Pneumococcal Vaccination: No Review of Systems - Review of Systems Systems not reviewed;Unavailable: Intubated Past Patient History - Infectious Disease Hx of Infectious Diseases: None - Past Medical History & Family History Past Medical History?: Yes - Past Social History Smoking Status: Unknown If Ever Smoked - CARDIAC Hx Cardia Arrhythmia: Yes Hx Congestive Heart Failure: Yes Hx Hypercholesterolemia: Yes Hx Hypertension: Yes Hx Pacemaker: Yes - PULMONARY Hx Bronchitis: Yes Hx Chronic Obstructive Pulmonary Disease (COPD): Yes Hx Pneumonia: Yes - NEUROLOGICAL Hx Seizures: No - HEENT Hx HEENT Problems: Yes Hx Cataracts: Yes (2000 Rt.Eye,2009Left Eye) - RENAL Hx Chronic Kidney Disease: No - ENDOCRINE/METABOLIC Hx Diabetes Mellitus Type 2: Yes - HEMATOLOGICAL/ONCOLOGICAL Hx Human Immunodeficiency Virus (HIV): No - INTEGUMENTARY Hx Dermatological Problems: No - MUSCULOSKELETAL/RHEUMATOLOGICAL Hx Falls: Yes - GASTROINTESTINAL Hx Gastrointestinal Disorders: Yes Hx Colitis: Yes Hx Gastroesophageal Reflux: Yes HX Swallowing Problems: Yes (Achalasia. 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) Hx Coronary Stent: Yes - ANESTHESIA Hx Anesthesia: Yes Hx Anesthesia Reactions: No Hx Malignant Hyperthermia: No Meds Allergies/Adverse Reactions: Allergies Allergy/AdvReac Type Severity Reaction Status Date / Time azithromycin [From Zithromax] Allergy Verified 11/09/17 20:54 ciprofloxacin HCl Allergy Verified 11/09/17 20:54 [From Cipro] diphenhydramine HCl Allergy Verified 11/09/17 20:54 [From Benadryl] fish oil Allergy Verified 11/09/17 20:54 iodine Allergy Verified 11/09/17 20:54 losartan potassium Allergy Verified 11/09/17 20:54 [From Cozaar] metronidazole [From Flagyl] Allergy Verified 11/09/17 20:54 nitroglycerin Allergy Verified 11/09/17 20:54 Penicillins Allergy Verified 11/09/17 20:54 sulfamethoxazole Allergy Verified 11/09/17 20:54 [From Bactrim] trimethoprim [From Bactrim] Allergy Verified 11/09/17 20:54 zolpidem Allergy Verified 11/09/17 20:54 clopidogrel bisulfate AdvReac Verified 11/09/17 20:54 [From Plavix] - Medications Medications: Current Medications Acetaminophen (Tylenol 650 Mg Supp) 650 mg VA Q6 PRN PRN Reason: Fever >100.4 F Last Admin: 11/10/17 11:44 Dose: 650 mg Albuterol/Ipratropium (Duoneb 3 Mg/0.5 Mg (3 Ml) Ud) 3 ml INH RQ6 JUDY Heparin Sodium (Porcine) (Heparin) 5,000 units SC Q8 [facility] Last Admin: 11/10/17 05:21 Dose: 5,000 units Sodium Chloride (Sodium Chloride 0.9%) 1,000 mls @ 100 mls/hr IV .Q10H [facility] Last Admin: 11/10/17 09:46 Dose: 100 mls/hr Aztreonam 1 gm/ Sodium (Chloride) 100 mls @ 200 mls/hr IVPB Q8H JUDY PRN Reason: Protocol Last Admin: 11/10/17 09:47 Dose: 200 mls/hr Propofol (Diprivan) 1,000 mg in 100 mls @ 1.388 mls/hr IV .Q24H PRN; Protocol; 5 MCG/KG/MIN PRN Reason: TITRATE PER MD ORDER Vancomycin HCl 1 gm/ Sodium (Chloride) 250 mls @ 166.7 mls/hr IVPB Q24H [facility] PRN Reason: Protocol Insulin Human Regular (Novolin R) 0 unit SC ACHS JUDY PRN Reason: Protocol Last Admin: 11/10/17 11:49 Dose: 4 unit Metoprolol Tartrate (Lopressor) 75 mg PEG Q12H [facility] Last Admin: 11/10/17 06:24 Dose: 75 mg Physical Exam - Constitutional Appears: Cachectic Additional comments: ON VENTILATOR -ORALLY INTUBATED. SEDATED - Head Exam Head Exam: NORMAL INSPECTION - Eye Exam Eye Exam: PERRL - ENT Exam ENT Exam: Normal Exam - Neck Exam Neck exam: Positive for: Normal Inspection. Negative for: Lymphadenopathy - Respiratory Exam Respiratory Exam: Rhonchi (BASILAR RHONCHI RT>LT.) - Cardiovascular Exam Cardiovascular Exam: REGULAR RHYTHM, +S1, +S2 - GI/Abdominal Exam GI & Abdominal Exam: Normal Bowel Sounds, Soft. absent: Organomegaly, Tenderness (+VE GT TUBE.) - Extremities Exam Extremities exam: Positive for: pedal edema (B/L VENODYNE). Negative for: calf tenderness - Neurological Exam Neurological exam: Altered (SEDATED/INTUBATED.) - Skin Skin Exam: Dry, Normal Color, Warm Results - Vital Signs Recent Vital Signs: Last Vital Signs Temp 101.5 F H 11/10/17 10:00 Pulse 112 H 11/10/17 07:45 Resp 24 11/10/17 07:30 BP 109/76 11/10/17 07:30 Pulse Ox 96 11/10/17 07:30 - Labs Result Diagrams: 11/11/17 06:10 11/11/17 06:10 Labs: Laboratory Results - last 24 hr 11/09/17 11/09/17 11/09/17 20:49 21:07 21:07 WBC 11.9 H RBC 4.17 Hgb 13.0 Hct 38.9 MCV 93.3 MCH 31.2 H MCHC 33.4 RDW 13.7 Plt Count 337 MPV 8.5 Neut % (Auto) 86.4 H Lymph % (Auto) 6.1 L [place] % (Auto) 7.3 Eos % (Auto) 0.0 Baso % (Auto) 0.2 Neut # (Auto) 10.2 H Lymph # (Auto) 0.7 L [place] # (Auto) 0.9 H Eos # (Auto) 0.0 Baso # (Auto) 0.0 Neutrophils % (Manual) 83 H Band Neutrophils % 5 H Lymphocytes % (Manual) 8 L Monocytes % (Manual) 4 Platelet Estimate Normal RBC Morphology Puncture Site pCO2 pO2 HCO3 ABG pH ABG Total CO2 ABG O2 Saturation ABG Base Excess ABG Hemoglobin ABG Carboxyhemoglobin POC ABG HHb (Measured) ABG Methemoglobin Scout Test ABG Potassium A-a O2 Difference Respiratory Index Hgb O2 Saturation Glucose Lactate Liter Flow Vent Mode Mechanical Rate FiO2 Tidal Volume PEEP Crit Value Called To Crit Value Called By Crit Value Read Back Blood Gas Notified Time Sodium 146 Potassium 4.5 Chloride 97 L Carbon Dioxide 25 Anion Gap 28 H BUN 47 H Creatinine 1.1 Est GFR ( Amer) 57 Est GFR (Non-Af Amer) 47 POC Glucose (mg/dL) 418 H* Random Glucose 543 H* D Lactic Acid Calcium 11.4 H Phosphorus Magnesium Total Bilirubin 0.7 AST 33 ALT < 6 L D Alkaline Phosphatase 70 Total Protein 10.0 H Albumin 4.7 Globulin 5.3 H Albumin/Globulin Ratio 0.9 L Lipase 104 Arterial Blood Potassium Urine Color Urine Clarity Urine pH Ur Specific [place] Urine Protein Urine Glucose (UA) Urine Ketones Urine Blood Urine Nitrate Urine Bilirubin Urine Urobilinogen Ur Leukocyte Esterase Urine WBC (Auto) Urine RBC (Auto) Ur Squamous Epith Cells Amorphous Sediment Urine Bacteria Serum Ketones Negative 11/09/17 11/09/17 11/10/17 21:50 21:57 02:46 WBC RBC Hgb Hct MCV MCH MCHC RDW Plt Count MPV Neut % (Auto) Lymph % (Auto) [place] % (Auto) Eos % (Auto) Baso % (Auto) Neut # (Auto) Lymph # (Auto) [place] # (Auto) Eos # (Auto) Baso # (Auto) Neutrophils % (Manual) Band Neutrophils % Lymphocytes % (Manual) Monocytes % (Manual) Platelet Estimate RBC Morphology Puncture Site Rr pCO2 41 pO2 53 L HCO3 28.5 H ABG pH 7.46 H ABG Total CO2 30.5 H ABG O2 Saturation 93.0 L ABG Base Excess 4.9 H ABG Hemoglobin ABG Carboxyhemoglobin POC ABG HHb (Measured) ABG Methemoglobin Scout Test Pos ABG Potassium 3.9 A-a O2 Difference 131.0 Respiratory Index 2.5 Hgb O2 Saturation Glucose 443 H* D Lactate 4.5 H* Liter Flow 3.0 Vent Mode Mechanical Rate FiO2 33.0 Tidal Volume PEEP Crit Value Called To Kristie gil Crit Value Called By Mr Crit Value Read Back Y Blood Gas Notified Time 2155 Sodium 146.0 Potassium Chloride 103.0 Carbon Dioxide Anion Gap BUN Creatinine Est GFR ( Amer) Est GFR (Non-Af Amer) POC Glucose (mg/dL) 194 H Random Glucose Lactic Acid Calcium Phosphorus Magnesium Total Bilirubin AST ALT Alkaline Phosphatase Total Protein Albumin Globulin Albumin/Globulin Ratio Lipase Arterial Blood Potassium 3.9 Urine Color Yellow Urine Clarity Hazy Urine pH 5.0 Ur Specific [place] 1.029 Urine Protein 1+ H Urine Glucose (UA) 3+ H Urine Ketones Negative Urine Blood 3+ H Urine Nitrate Negative Urine Bilirubin Negative Urine Urobilinogen Normal Ur Leukocyte Esterase Neg Urine WBC (Auto) 4 Urine RBC (Auto) 10 H Ur Squamous Epith Cells 22 H Amorphous Sediment Rare H Urine Bacteria Rare Serum Ketones 11/10/17 11/10/17 11/10/17 04:04 06:13 10:06 WBC RBC Hgb Hct MCV MCH MCHC RDW Plt Count MPV Neut % (Auto) Lymph % (Auto) [place] % (Auto) Eos % (Auto) Baso % (Auto) Neut # (Auto) Lymph # (Auto) [place] # (Auto) Eos # (Auto) Baso # (Auto) Neutrophils % (Manual) Band Neutrophils % Lymphocytes % (Manual) Monocytes % (Manual) Platelet Estimate RBC Morphology Puncture Site Rra pCO2 34 L pO2 474 H HCO3 27.7 ABG pH 7.50 H ABG Total CO2 27.5 ABG O2 Saturation 100.1 H ABG Base Excess 3.5 H ABG Hemoglobin 11.8 ABG Carboxyhemoglobin 1.4 POC ABG HHb (Measured) -0.1 L ABG Methemoglobin 1.3 Scout Test Po ABG Potassium A-a O2 Difference 197.0 Respiratory Index 0.4 Hgb O2 Saturation 97.4 Glucose Lactate Liter Flow Vent Mode Prvc Mechanical Rate 14 FiO2 100.0 Tidal Volume 400 PEEP 5 Crit Value Called To Crit Value Called By Crit Value Read Back Blood Gas Notified Time Sodium Potassium Chloride Carbon Dioxide Anion Gap BUN Creatinine Est GFR ( Amer) Est GFR (Non-Af Amer) POC Glucose (mg/dL) 239 H Random Glucose Lactic Acid 1.8 Calcium Phosphorus Magnesium Total Bilirubin AST ALT Alkaline Phosphatase Total Protein Albumin Globulin Albumin/Globulin Ratio Lipase Arterial Blood Potassium Urine Color Urine Clarity Urine pH Ur Specific [place] Urine Protein Urine Glucose (UA) Urine Ketones Urine Blood Urine Nitrate Urine Bilirubin Urine Urobilinogen Ur Leukocyte Esterase Urine WBC (Auto) Urine RBC (Auto) Ur Squamous Epith Cells Amorphous Sediment Urine Bacteria Serum Ketones 11/10/17 11/10/17 11/10/17 10:38 10:38 11:31 WBC 16.3 H RBC 3.42 L Hgb 10.6 L D Hct 31.7 L MCV 92.6 MCH 31.1 H MCHC 33.6 RDW 13.3 Plt Count 236 D MPV 8.4 Neut % (Auto) 86.5 H Lymph % (Auto) 5.9 L [place] % (Auto) 7.3 Eos % (Auto) 0.0 Baso % (Auto) 0.3 Neut # (Auto) 14.1 H Lymph # (Auto) 1.0 [place] # (Auto) 1.2 H Eos # (Auto) 0.0 Baso # (Auto) 0.1 Neutrophils % (Manual) 84 H Band Neutrophils % 3 H Lymphocytes % (Manual) 6 L Monocytes % (Manual) 7 Platelet Estimate Normal RBC Morphology Normal Puncture Site pCO2 pO2 HCO3 ABG pH ABG Total CO2 ABG O2 Saturation ABG Base Excess ABG Hemoglobin ABG Carboxyhemoglobin POC ABG HHb (Measured) ABG Methemoglobin Scout Test ABG Potassium A-a O2 Difference Respiratory Index Hgb O2 Saturation Glucose Lactate Liter Flow Vent Mode Mechanical Rate FiO2 Tidal Volume PEEP Crit Value Called To Crit Value Called By Crit Value Read Back Blood Gas Notified Time Sodium 145 Potassium 3.9 Chloride 104 Carbon Dioxide 26 Anion Gap 19 BUN 33 H Creatinine 0.8 Est GFR ( Amer) > 60 Est GFR (Non-Af Amer) > 60 POC Glucose (mg/dL) 349 H Random Glucose 364 H Lactic Acid Calcium 8.8 Phosphorus 3.2 Magnesium 1.4 L Total Bilirubin 1.0 AST 30 ALT 20 Alkaline Phosphatase 47 Total Protein 7.1 Albumin 3.5 D Globulin 3.6 Albumin/Globulin Ratio 1.0 Lipase Arterial Blood Potassium Urine Color Urine Clarity Urine pH Ur Specific [place] Urine Protein Urine Glucose (UA) Urine Ketones Urine Blood Urine Nitrate Urine Bilirubin Urine Urobilinogen Ur Leukocyte Esterase Urine WBC (Auto) Urine RBC (Auto) Ur Squamous Epith Cells Amorphous Sediment Urine Bacteria Serum Ketones - Imaging and Cardiology CT scan - head Status: Report reviewed by me (-VE.) Assessment & Plan (1) Sepsis Status: Acute (2) Respiratory failure with hypoxia Status: Acute (3) Pneumonia Status: Acute (4) Leukocytosis Status: Acute (5) Gastrostomy tube in place Status: Acute (6) CAD (coronary artery disease) Status: Acute (7) Uncontrolled diabetes mellitus Status: Acute (8) Hx of CABG Status: Acute - Assessment and Plan (Free Text) Plan: PANCULTURE. UA/ URINE CULTURE. ESR. CRP. SPUTUM GRAM STAIN AND CULTURE. MRSA SCREEN. CONTINUE iv AZACTAM 1 G EVERY 8 HOURLY. 11/09/17. CONTINUE iv VANCOMYCIN 1 G EVERY 24 HOURLY. 11/10/17. FOLLOW-UP VANCO TROUGH LEVEL IN A.M. AND KEEP BETWEEN 10 AND 20. MONITOR RENAL FUNCTIONS CLOSELY. IV FLUIDS PER LOG SKIDDER. WILL FOLLOW ALONG WITH YOU AND MAKE FURTHER RECOMMENDATIONS NEEDED.
[2017-11-10] MEDS: Albuterol-Ipratrop 3 mg / 0.5 (3 ml) UD INH SCH ×2 (13:14→20:03)
[2017-11-10] MEDS: Vancomycin 1 gm/NS 200 ml 1 GM/200 ML BAG IVPB SCH (13:53)
[2017-11-10] MEDS ORDERED: Piperacill/Tazo 2.25gm in Dex 2.25 GM/50 ML BAG IVPB SCH (14:00)
--- NOTE | 2017-11-10 15:55 | RAD ---
HISTORY: pneumonia COMPARISON: Comparison is made to 11/10/2027 FINDINGS: LUNGS: No evidence of new infiltrate or consolidation in the lungs. PLEURA: No significant pleural effusion identified, no pneumothorax apparent. CARDIOVASCULAR: Normal. OSSEOUS STRUCTURES: No significant abnormalities. VISUALIZED UPPER ABDOMEN: Normal. OTHER FINDINGS: None. IMPRESSION: No significant interval change noted since the previous study.
[2017-11-10] MEDS: Propofol 10 mg/ml 1,000 MG/100 ML VIAL IV PRN (16:13)
[2017-11-10] MEDS: Magnesium Sulfate 1 gm in D5W 1 GM/100 ML BAG IVPB SCH ×2 (16:15→17:26)
--- NOTE | 2017-11-10 18:09 | RAD ---
HISTORY: post intubation TLC COMPARISON: Comparison is made to previous same-day exam FINDINGS: LUNGS: The patient is status post intubation. The ET tube is seen at appropriate position. Interval improvement in the lungs since the previous study. PLEURA: No significant pleural effusion identified, no pneumothorax apparent. CARDIOVASCULAR: Post cardiac surgery changes are again noted. Interval insertion of right jugular central line. OSSEOUS STRUCTURES: No significant abnormalities. VISUALIZED UPPER ABDOMEN: Normal. OTHER FINDINGS: None. IMPRESSION: Status post intubation. Appropriate position of the ETT. Status post right jugular central line insertion.
[2017-11-11] MEDS: (Novolin R) Insulin Human Regular 100 units/ml vial SC SCH ×4 (00:05→18:02)
[2017-11-11] MEDS: Aztreonam 1 GM in Sodium Chloride 0.9% 100 ML IVPB SCH ×3 (00:38→17:58)
[2017-11-11] MEDS: Albuterol-Ipratrop 3 mg / 0.5 (3 ml) UD INH SCH ×4 (02:57→20:48)
[2017-11-11] MEDS: Sodium Chloride 0.9% 1,000 ML IV SCH ×3 (05:17→16:29)
[2017-11-11 05:47] LABS: ABG ALLEN TEST POS; ARTERIAL BLOOD GAS HCO3 24.7 mmol/L (21-28); ARTERIAL BLOOD GAS HEMOGLOBIN 10.4 g/dL (11.7-17.4); ARTERIAL BLOOD GAS O2 SAT 99.5 % (95-98); ARTERIAL BLOOD GAS PCO2 37 mm/Hg (35-45); ARTERIAL BLOOD GAS PH 7.42 (7.35-7.45); ARTERIAL BLOOD GAS PO2 151 mm/Hg (80-100); ARTERIAL BLOOD GAS TCO2 25.1 mmol/L (22-28)
[2017-11-11 06:25] LABS: BASO % 0.2 % (0.0-2.0); EOS % 0.3 % (0.0-4.0); HEMOGLOBIN 9.8 g/dL (11.0-16.0); LYMPH # 1.7 K/uL (1.0-4.3); LYMPH % 11.6 % (20.0-40.0); MEAN CELL VOLUME 91.9 fL (81.0-99.0); MEAN CORPUSCULAR HGB CONC 33.7 g/dL (33.0-37.0); MEAN PLATELET VOLUME 8.2 fL (7.2-11.7); MONO # 0.8 K/uL (0.0-0.8); MONO % 5.4 % (0.0-10.0); NEUT # 11.8 K/uL (1.8-7.0); NEUT % 82.5 % (50.0-75.0); RBC 3.16 Mil/uL (3.80-5.20); RED CELL DISTRIBUTION WIDTH 13.2 % (11.5-14.5); WHITE BLOOD COUNT 14.4 K/uL (4.8-10.8)
[2017-11-11 06:30] LABS: ALB/GLOB RATIO 0.9 (1.0-2.1); ALBUMIN 3.3 g/dL (3.5-5.0); ALT/SGPT 11 U/L (9-52); AST/SGOT 29 U/L (14-36); BLOOD UREA NITROGEN 31 mg/dL (7-17); CALCIUM 8.2 mg/dl (8.6-10.4); GFR AFRICAN-AMERICAN > 60; GFR NON-AFRICAN AMERICAN > 60
--- NOTE | 2017-11-11 08:12 | CP.CCUPN ---
CCU Subjective - Physician Review Events Since Last Encounter (Free Text): 11/11/17 08:10 Events: Patient was in severe respiratory distress, intubated yesterday, placed on ventilator. Currently patient is more calm She is responding. On low-dose propofol Thick endotracheal secretions noted The culture is pending Patient again had a fever last night. Episode of tachycardia noted Today patient is more awake. She is following simple commands On examination: Vital signs stable. Fever noted Chest good air entry, wheezing noted irregular heart sounds nontender abdomen no pedal edema PEG tube around secretions thick Labs reviewed Chest x-ray and clear lungs Cultures pending Assessment and recommendation: 87-year-old female with a history of CAD, status post CABG, hypertension, diabetes, high cholesterol, COPD pacemaker. Achalasia cardia Status post PEG Admitted to the hospital with acute respiratory distress, aspiration pneumonia. Acute respiratory failure, on ventilator support Continue the bronchodilators, antibiotic, culture pending DVT GI prophylaxis Infectious disease evaluation and will follow the patient CCU Objective - Vital Signs / Intake & Output Vital Signs (Last 4 hours): Vital Signs Temp Pulse Resp BP Pulse Ox 11/11/17 08:00 88 17 99 11/11/17 07:49 88 15 155/83 H 100 11/11/17 07:43 97.7 F 11/11/17 07:00 78 14 97 11/11/17 06:51 167/81 H 11/11/17 06:49 189/72 H 11/11/17 06:22 180/78 H 11/11/17 06:00 99 H 15 89 L 11/11/17 05:50 180/78 H 11/11/17 05:00 99 H 14 95 11/11/17 04:51 164/103 H Intake and Output (Last 8hrs): Intake & Output 11/10/17 11/11/17 11/11/17 22:59 06:59 14:59 Intake Total 719.6 981.7 104.1 Output Total 285 340 45 Balance 434.6 641.7 59.1 Weight 98 lb 1.6 oz Intake: IV 50 Intake, IV Amount 719.6 931.7 104.1 Left Forearm 0 Right Medial Port 19.6 31.7 4.1 Internal Jugular Right Proximal Port 700 900 100 Internal Jugular Oral 0 Output: Urine 285 340 45 Urethral (Gregory) 285 340 45 Other: # Bowel Movements 1 - Medications Active Medications: Active Medications Generic Name Dose Route Start Last Admin Trade Name Freq PRN Reason Stop Dose Admin Acetaminophen 650 mg 11/10/17 10:52 11/10/17 11:44 Tylenol 650 Mg Supp UT 650 mg Q6 PRN Administration Fever >100.4 F Albuterol/Ipratropium 3 ml 11/10/17 14:00 11/11/17 07:31 Duoneb 3 Mg/0.5 Mg (3 Ml) Ud INH 3 ml RQ6 JUDY Administration Diltiazem HCl 30 mg 11/10/17 18:00 11/10/17 21:40 Cardizem PO 30 mg QID JUDY Administration Heparin Sodium (Porcine) 5,000 units 11/10/17 06:00 11/11/17 05:16 Heparin SC 5,000 units Q8 JUDY Administration Sodium Chloride 1,000 mls @ 100 mls/hr 11/09/17 23:45 11/11/17 05:17 Sodium Chloride 0.9% IV Not Given .Q10H JUDY Aztreonam 1 gm/ Sodium 100 mls @ 200 mls/hr 11/10/17 09:30 11/11/17 00:38 Chloride IVPB 200 mls/hr Q8H JUDY Administration Protocol Propofol 1,000 mg in 100 mls @ 1.388 mls/hr 11/10/17 09:16 11/11/17 02:00 Diprivan IV 15 mcg/kg/min .Q24H PRN 4.164 mls/hr TITRATE PER MD ORDER Titration Protocol 5 MCG/KG/MIN Vancomycin/Sodium Chloride 1 gm in 200 mls @ 133.333 mls/hr 11/10/17 13:30 13:53 Vancomycin 1 Gm/Ns 200 Ml IVPB 11/15/17 13:31 133.333 mls/hr Q24H JUDY Administration Protocol Insulin Human Regular 0 unit 11/10/17 18:00 11/11/17 06:23 Novolin R SC 2 unit Q6H JUDY Administration Protocol Metoprolol Tartrate 75 mg 11/10/17 07:00 11/11/17 06:22 Lopressor PEG 75 mg Q12H JUDY Administration - Patient Studies Lab Studies: Microbiology Studies 11/10/17 Unknown Gram Stain - Final Trachasp 11/10/17 Unknown Gram Stain - Final Peg Site Lab Studies 11/11/17 11/11/17 11/11/17 Range/Units 06:10 06:10 06:10 WBC 14.4 H (4.8-10.8) K/uL RBC 3.16 L (3.80-5.20) Mil/uL Hgb 9.8 L (11.0-16.0) g/dL Hct 29.1 L (34.0-47.0) % MCV 91.9 (81.0-99.0) fL MCH 31.0 (27.0-31.0) pg MCHC 33.7 (33.0-37.0) g/dL RDW 13.2 (11.5-14.5) % Plt Count 250 (130-400) K/uL MPV 8.2 (7.2-11.7) fL Neut % (Auto) 82.5 H (50.0-75.0) % Lymph % (Auto) 11.6 L (20.0-40.0) % Ada % (Auto) 5.4 (0.0-10.0) % Eos % (Auto) 0.3 (0.0-4.0) % Baso % (Auto) 0.2 (0.0-2.0) % Neut # (Auto) 11.8 H (1.8-7.0) K/uL Lymph # (Auto) 1.7 (1.0-4.3) K/uL Ada # (Auto) 0.8 (0.0-0.8) K/uL Eos # (Auto) 0.0 (0.0-0.7) K/uL Baso # (Auto) 0.0 (0.0-0.2) K/uL Neutrophils % (Manual) (50-75) % Band Neutrophils % (0-2) % Lymphocytes % (Manual) (20-40) % Monocytes % (Manual) (0-10) % Platelet Estimate (NORMAL) RBC Morphology Puncture Site pCO2 (35-45) mm/Hg pO2 (80-100) mm/Hg HCO3 (21-28) mmol/L ABG pH (7.35-7.45) ABG Total CO2 (22-28) mmol/L ABG O2 Saturation (95-98) % ABG Base Excess (-2.0-3.0) mmol/L ABG Hemoglobin (11.7-17.4) g/dL ABG Carboxyhemoglobin (0.5-1.5) % POC ABG HHb (Measured) (0.0-5.0) % ABG Methemoglobin (0.0-3.0) % Scout Test A-a O2 Difference mm/Hg Respiratory Index Hgb O2 Saturation (95.0-98.0) % Vent Mode Mechanical Rate FiO2 % Tidal Volume PEEP Sodium 145 (132-148) mmol/L Potassium 3.0 L (3.6-5.2) mmol/L Chloride 109 H (98-107) mmol/L Carbon Dioxide 25 (22-30) mmol/L Anion Gap 14 (10-20) BUN 31 H (7-17) mg/dL Creatinine 0.8 (0.7-1.2) mg/dL Est GFR ( Amer) > 60 Est GFR (Non-Af Amer) > 60 POC Glucose (mg/dL) (65-110) mg/dL Random Glucose 155 H (65-105) mg/dL Calcium 8.2 L (8.6-10.4) mg/dl Phosphorus 2.9 (2.5-4.5) mg/dL Magnesium 2.1 (1.6-2.3) mg/dL Total Bilirubin 0.4 (0.2-1.3) mg/dL AST 29 (14-36) U/L ALT 11 (9-52) U/L Alkaline Phosphatase 55 (38-126) U/L C-React Prot High Sens > 15.00 H (1.00-3.00) mg/L Total Protein 6.7 (6.3-8.3) g/dL Albumin 3.3 L (3.5-5.0) g/dL Globulin 3.5 (2.2-3.9) gm/dL Albumin/Globulin Ratio 0.9 L (1.0-2.1) Vancomycin Trough (5.0-10.0) ug/mL 11/11/17 11/11/17 11/11/17 Range/Units 06:10 05:59 05:18 WBC (4.8-10.8) K/uL RBC (3.80-5.20) Mil/uL Hgb (11.0-16.0) g/dL Hct (34.0-47.0) % MCV (81.0-99.0) fL MCH (27.0-31.0) pg MCHC (33.0-37.0) g/dL RDW (11.5-14.5) % Plt Count (130-400) K/uL MPV (7.2-11.7) fL Neut % (Auto) (50.0-75.0) % Lymph % (Auto) (20.0-40.0) % Ada % (Auto) (0.0-10.0) % Eos % (Auto) (0.0-4.0) % Baso % (Auto) (0.0-2.0) % Neut # (Auto) (1.8-7.0) K/uL Lymph # (Auto) (1.0-4.3) K/uL Ada # (Auto) (0.0-0.8) K/uL Eos # (Auto) (0.0-0.7) K/uL Baso # (Auto) (0.0-0.2) K/uL Neutrophils % (Manual) (50-75) % Band Neutrophils % (0-2) % Lymphocytes % (Manual) (20-40) % Monocytes % (Manual) (0-10) % Platelet Estimate (NORMAL) RBC Morphology Puncture Site R rad pCO2 37 (35-45) mm/Hg pO2 151 H (80-100) mm/Hg HCO3 24.7 (21-28) mmol/L ABG pH 7.42 (7.35-7.45) ABG Total CO2 25.1 (22-28) mmol/L ABG O2 Saturation 99.5 H (95-98) % ABG Base Excess -0.3 (-2.0-3.0) mmol/L ABG Hemoglobin 10.4 L (11.7-17.4) g/dL ABG Carboxyhemoglobin 1.5 (0.5-1.5) % POC ABG HHb (Measured) 0.5 (0.0-5.0) % ABG Methemoglobin 1.0 (0.0-3.0) % Scout Test Pos A-a O2 Difference 88.0 mm/Hg Respiratory Index 0.6 Hgb O2 Saturation 96.9 (95.0-98.0) % Vent Mode Prvc Mechanical Rate 14 FiO2 40.0 % Tidal Volume 400 PEEP 5 Sodium (132-148) mmol/L Potassium (3.6-5.2) mmol/L Chloride (98-107) mmol/L Carbon Dioxide (22-30) mmol/L Anion Gap (10-20) BUN (7-17) mg/dL Creatinine (0.7-1.2) mg/dL Est GFR ( Amer) Est GFR (Non-Af Amer) POC Glucose (mg/dL) 167 H (65-110) mg/dL Random Glucose (65-105) mg/dL Calcium (8.6-10.4) mg/dl Phosphorus (2.5-4.5) mg/dL Magnesium (1.6-2.3) mg/dL Total Bilirubin (0.2-1.3) mg/dL AST (14-36) U/L ALT (9-52) U/L Alkaline Phosphatase (38-126) U/L C-React Prot High Sens (1.00-3.00) mg/L Total Protein (6.3-8.3) g/dL Albumin (3.5-5.0) g/dL Globulin (2.2-3.9) gm/dL Albumin/Globulin Ratio (1.0-2.1) Vancomycin Trough 14.9 H (5.0-10.0) ug/mL 11/10/17 11/10/17 11/10/17 Range/Units 23:36 17:31 11:31 WBC (4.8-10.8) K/uL RBC (3.80-5.20) Mil/uL Hgb (11.0-16.0) g/dL Hct (34.0-47.0) % MCV (81.0-99.0) fL MCH (27.0-31.0) pg MCHC (33.0-37.0) g/dL RDW (11.5-14.5) % Plt Count (130-400) K/uL MPV (7.2-11.7) fL Neut % (Auto) (50.0-75.0) % Lymph % (Auto) (20.0-40.0) % Ada % (Auto) (0.0-10.0) % Eos % (Auto) (0.0-4.0) % Baso % (Auto) (0.0-2.0) % Neut # (Auto) (1.8-7.0) K/uL Lymph # (Auto) (1.0-4.3) K/uL Ada # (Auto) (0.0-0.8) K/uL Eos # (Auto) (0.0-0.7) K/uL Baso # (Auto) (0.0-0.2) K/uL Neutrophils % (Manual) (50-75) % Band Neutrophils % (0-2) % Lymphocytes % (Manual) (20-40) % Monocytes % (Manual) (0-10) % Platelet Estimate (NORMAL) RBC Morphology Puncture Site pCO2 (35-45) mm/Hg pO2 (80-100) mm/Hg HCO3 (21-28) mmol/L ABG pH (7.35-7.45) ABG Total CO2 (22-28) mmol/L ABG O2 Saturation (95-98) % ABG Base Excess (-2.0-3.0) mmol/L ABG Hemoglobin (11.7-17.4) g/dL ABG Carboxyhemoglobin (0.5-1.5) % POC ABG HHb (Measured) (0.0-5.0) % ABG Methemoglobin (0.0-3.0) % Scout Test A-a O2 Difference mm/Hg Respiratory Index Hgb O2 Saturation (95.0-98.0) % Vent Mode Mechanical Rate FiO2 % Tidal Volume PEEP Sodium (132-148) mmol/L Potassium (3.6-5.2) mmol/L Chloride (98-107) mmol/L Carbon Dioxide (22-30) mmol/L Anion Gap (10-20) BUN (7-17) mg/dL Creatinine (0.7-1.2) mg/dL Est GFR ( Amer) Est GFR (Non-Af Amer) POC Glucose (mg/dL) 147 H 280 H 349 H (65-110) mg/dL Random Glucose (65-105) mg/dL Calcium (8.6-10.4) mg/dl Phosphorus (2.5-4.5) mg/dL Magnesium (1.6-2.3) mg/dL Total Bilirubin (0.2-1.3) mg/dL AST (14-36) U/L ALT (9-52) U/L Alkaline Phosphatase (38-126) U/L C-React Prot High Sens (1.00-3.00) mg/L Total Protein (6.3-8.3) g/dL Albumin (3.5-5.0) g/dL Globulin (2.2-3.9) gm/dL Albumin/Globulin Ratio (1.0-2.1) Vancomycin Trough (5.0-10.0) ug/mL 11/10/17 11/10/17 11/10/17 Range/Units 10:38 10:38 10:06 WBC 16.3 H (4.8-10.8) K/uL RBC 3.42 L (3.80-5.20) Mil/uL Hgb 10.6 L D (11.0-16.0) g/dL Hct 31.7 L (34.0-47.0) % MCV 92.6 (81.0-99.0) fL MCH 31.1 H (27.0-31.0) pg MCHC 33.6 (33.0-37.0) g/dL RDW 13.3 (11.5-14.5) % Plt Count 236 D (130-400) K/uL MPV 8.4 (7.2-11.7) fL Neut % (Auto) 86.5 H (50.0-75.0) % Lymph % (Auto) 5.9 L (20.0-40.0) % Ada % (Auto) 7.3 (0.0-10.0) % Eos % (Auto) 0.0 (0.0-4.0) % Baso % (Auto) 0.3 (0.0-2.0) % Neut # (Auto) 14.1 H (1.8-7.0) K/uL Lymph # (Auto) 1.0 (1.0-4.3) K/uL Ada # (Auto) 1.2 H (0.0-0.8) K/uL Eos # (Auto) 0.0 (0.0-0.7) K/uL Baso # (Auto) 0.1 (0.0-0.2) K/uL Neutrophils % (Manual) 84 H (50-75) % Band Neutrophils % 3 H (0-2) % Lymphocytes % (Manual) 6 L (20-40) % Monocytes % (Manual) 7 (0-10) % Platelet Estimate Normal (NORMAL) RBC Morphology Normal Puncture Site Rra pCO2 34 L (35-45) mm/Hg pO2 474 H (80-100) mm/Hg HCO3 27.7 (21-28) mmol/L ABG pH 7.50 H (7.35-7.45) ABG Total CO2 27.5 (22-28) mmol/L ABG O2 Saturation 100.1 H (95-98) % ABG Base Excess 3.5 H (-2.0-3.0) mmol/L ABG Hemoglobin 11.8 (11.7-17.4) g/dL ABG Carboxyhemoglobin 1.4 (0.5-1.5) % POC ABG HHb (Measured) -0.1 L (0.0-5.0) % ABG Methemoglobin 1.3 (0.0-3.0) % Scout Test Po A-a O2 Difference 197.0 mm/Hg Respiratory Index 0.4 Hgb O2 Saturation 97.4 (95.0-98.0) % Vent Mode Prvc Mechanical Rate 14 FiO2 100.0 % Tidal Volume 400 PEEP 5 Sodium 145 (132-148) mmol/L Potassium 3.9 (3.6-5.2) mmol/L Chloride 104 (98-107) mmol/L Carbon Dioxide 26 (22-30) mmol/L Anion Gap 19 (10-20) BUN 33 H (7-17) mg/dL Creatinine 0.8 (0.7-1.2) mg/dL Est GFR ( Amer) > 60 Est GFR (Non-Af Amer) > 60 POC Glucose (mg/dL) (65-110) mg/dL Random Glucose 364 H (65-105) mg/dL Calcium 8.8 (8.6-10.4) mg/dl Phosphorus 3.2 (2.5-4.5) mg/dL Magnesium 1.4 L (1.6-2.3) mg/dL Total Bilirubin 1.0 (0.2-1.3) mg/dL AST 30 (14-36) U/L ALT 20 (9-52) U/L Alkaline Phosphatase 47 (38-126) U/L C-React Prot High Sens (1.00-3.00) mg/L Total Protein 7.1 (6.3-8.3) g/dL Albumin 3.5 D (3.5-5.0) g/dL Globulin 3.6 (2.2-3.9) gm/dL Albumin/Globulin Ratio 1.0 (1.0-2.1) Vancomycin Trough (5.0-10.0) ug/mL Laboratory Results - last 24 hr 11/10/17 11/10/17 11/10/17 10:06 10:38 10:38 WBC 16.3 H RBC 3.42 L Hgb 10.6 L D Hct 31.7 L MCV 92.6 MCH 31.1 H MCHC 33.6 RDW 13.3 Plt Count 236 D MPV 8.4 Neut % (Auto) 86.5 H Lymph % (Auto) 5.9 L Ada % (Auto) 7.3 Eos % (Auto) 0.0 Baso % (Auto) 0.3 Neut # (Auto) 14.1 H Lymph # (Auto) 1.0 Ada # (Auto) 1.2 H Eos # (Auto) 0.0 Baso # (Auto) 0.1 Neutrophils % (Manual) 84 H Band Neutrophils % 3 H Lymphocytes % (Manual) 6 L Monocytes % (Manual) 7 Platelet Estimate Normal RBC Morphology Normal Puncture Site Rra pCO2 34 L pO2 474 H HCO3 27.7 ABG pH 7.50 H ABG Total CO2 27.5 ABG O2 Saturation 100.1 H ABG Base Excess 3.5 H ABG Hemoglobin 11.8 ABG Carboxyhemoglobin 1.4 POC ABG HHb (Measured) -0.1 L ABG Methemoglobin 1.3 Scout Test Po A-a O2 Difference 197.0 Respiratory Index 0.4 Hgb O2 Saturation 97.4 Vent Mode Prvc Mechanical Rate 14 FiO2 100.0 Tidal Volume 400 PEEP 5 Sodium 145 Potassium 3.9 Chloride 104 Carbon Dioxide 26 Anion Gap 19 BUN 33 H Creatinine 0.8 Est GFR ( Amer) > 60 Est GFR (Non-Af Amer) > 60 POC Glucose (mg/dL) Random Glucose 364 H Calcium 8.8 Phosphorus 3.2 Magnesium 1.4 L Total Bilirubin 1.0 AST 30 ALT 20 Alkaline Phosphatase 47 C-React Prot High Sens Total Protein 7.1 Albumin 3.5 D Globulin 3.6 Albumin/Globulin Ratio 1.0 Vancomycin Trough 11/10/17 11/10/17 11/10/17 11:31 17:31 23:36 WBC RBC Hgb Hct MCV MCH MCHC RDW Plt Count MPV Neut % (Auto) Lymph % (Auto) Ada % (Auto) Eos % (Auto) Baso % (Auto) Neut # (Auto) Lymph # (Auto) Ada # (Auto) Eos # (Auto) Baso # (Auto) Neutrophils % (Manual) Band Neutrophils % Lymphocytes % (Manual) Monocytes % (Manual) Platelet Estimate RBC Morphology Puncture Site pCO2 pO2 HCO3 ABG pH ABG Total CO2 ABG O2 Saturation ABG Base Excess ABG Hemoglobin ABG Carboxyhemoglobin POC ABG HHb (Measured) ABG Methemoglobin Scout Test A-a O2 Difference Respiratory Index Hgb O2 Saturation Vent Mode Mechanical Rate FiO2 Tidal Volume PEEP Sodium Potassium Chloride Carbon Dioxide Anion Gap BUN Creatinine Est GFR ( Amer) Est GFR (Non-Af Amer) POC Glucose (mg/dL) 349 H 280 H 147 H Random Glucose Calcium Phosphorus Magnesium Total Bilirubin AST ALT Alkaline Phosphatase C-React Prot High Sens Total Protein Albumin Globulin Albumin/Globulin Ratio Vancomycin Trough 11/11/17 11/11/17 11/11/17 05:18 05:59 06:10 WBC RBC Hgb Hct MCV MCH MCHC RDW Plt Count MPV Neut % (Auto) Lymph % (Auto) Ada % (Auto) Eos % (Auto) Baso % (Auto) Neut # (Auto) Lymph # (Auto) Ada # (Auto) Eos # (Auto) Baso # (Auto) Neutrophils % (Manual) Band Neutrophils % Lymphocytes % (Manual) Monocytes % (Manual) Platelet Estimate RBC Morphology Puncture Site R rad pCO2 37 pO2 151 H HCO3 24.7 ABG pH 7.42 ABG Total CO2 25.1 ABG O2 Saturation 99.5 H ABG Base Excess -0.3 ABG Hemoglobin 10.4 L ABG Carboxyhemoglobin 1.5 POC ABG HHb (Measured) 0.5 ABG Methemoglobin 1.0 Scout Test Pos A-a O2 Difference 88.0 Respiratory Index 0.6 Hgb O2 Saturation 96.9 Vent Mode Prvc Mechanical Rate 14 FiO2 40.0 Tidal Volume 400 PEEP 5 Sodium Potassium Chloride Carbon Dioxide Anion Gap BUN Creatinine Est GFR ( Amer) Est GFR (Non-Af Amer) POC Glucose (mg/dL) 167 H Random Glucose Calcium Phosphorus Magnesium Total Bilirubin AST ALT Alkaline Phosphatase C-React Prot High Sens Total Protein Albumin Globulin Albumin/Globulin Ratio Vancomycin Trough 14.9 H 11/11/17 11/11/17 11/11/17 06:10 06:10 06:10 WBC 14.4 H RBC 3.16 L Hgb 9.8 L Hct 29.1 L MCV 91.9 MCH 31.0 MCHC 33.7 RDW 13.2 Plt Count 250 MPV 8.2 Neut % (Auto) 82.5 H Lymph % (Auto) 11.6 L Ada % (Auto) 5.4 Eos % (Auto) 0.3 Baso % (Auto) 0.2 Neut # (Auto) 11.8 H Lymph # (Auto) 1.7 Ada # (Auto) 0.8 Eos # (Auto) 0.0 Baso # (Auto) 0.0 Neutrophils % (Manual) Band Neutrophils % Lymphocytes % (Manual) Monocytes % (Manual) Platelet Estimate RBC Morphology Puncture Site pCO2 pO2 HCO3 ABG pH ABG Total CO2 ABG O2 Saturation ABG Base Excess ABG Hemoglobin ABG Carboxyhemoglobin POC ABG HHb (Measured) ABG Methemoglobin Scout Test A-a O2 Difference Respiratory Index Hgb O2 Saturation Vent Mode Mechanical Rate FiO2 Tidal Volume PEEP Sodium 145 Potassium 3.0 L Chloride 109 H Carbon Dioxide 25 Anion Gap 14 BUN 31 H Creatinine 0.8 Est GFR ( Amer) > 60 Est GFR (Non-Af Amer) > 60 POC Glucose (mg/dL) Random Glucose 155 H Calcium 8.2 L Phosphorus 2.9 Magnesium 2.1 Total Bilirubin 0.4 AST 29 ALT 11 Alkaline Phosphatase 55 C-React Prot High Sens > 15.00 H Total Protein 6.7 Albumin 3.3 L Globulin 3.5 Albumin/Globulin Ratio 0.9 L Vancomycin Trough Fingerstick Blood Sugar Results: 167 Critical Care Progress Note - Nutrition Nutrition: Nutrition Category Date Time Status NPO Diet [DIET] Diets 11/09/17 Breakfast Active
--- NOTE | 2017-11-11 09:56 | RAD ---
HISTORY: vent COMPARISON: Comparison is made to 11/10/2017 FINDINGS: LUNGS: The ET tube tip is noted 1.8 centimeter above the renata. No significant interval change in the lungs noted since the previous exam. PLEURA: No significant pleural effusion identified, no pneumothorax apparent. CARDIOVASCULAR: The cardiac silhouette is normal in size. Post cardiac surgery changes are again noted. Single wire left-sided pacemaker/ AICD is seen in place P OSSEOUS STRUCTURES: No significant abnormalities. VISUALIZED UPPER ABDOMEN: Normal. OTHER FINDINGS: Right jugular central line is noted in place P IMPRESSION: The ET tube tip is 1.8 centimeter above the renata. No significant interval change in the lungs noted since the previous study.
[2017-11-11] MEDS: Vancomycin 1 gm/NS 200 ml 1 GM/200 ML BAG IVPB SCH (13:50)
[2017-11-11] MEDS: Propofol 10 mg/ml 1,000 MG/100 ML VIAL IV PRN (14:24)
[2017-11-11] MEDS ORDERED: Fluconazole IV 200mg/100 ml NS 100 ML IVPB ONE (16:31)
[2017-11-12] MEDS: Sodium Chloride 0.9% 1,000 ML IV SCH ×4 (00:33→21:21)
[2017-11-12] MEDS: (Novolin R) Insulin Human Regular 100 units/ml vial SC SCH ×4 (00:34→18:57)
[2017-11-12] MEDS: Aztreonam 1 GM in Sodium Chloride 0.9% 100 ML IVPB SCH ×3 (00:34→17:30)
[2017-11-12] MEDS: Albuterol-Ipratrop 3 mg / 0.5 (3 ml) UD INH SCH ×4 (01:04→20:08)
[2017-11-12 05:54] LABS: ABG ALLEN TEST POS; ARTERIAL BLOOD GAS HCO3 24.9 mmol/L (21-28); ARTERIAL BLOOD GAS HEMOGLOBIN 11.1 g/dL (11.7-17.4); ARTERIAL BLOOD GAS O2 SAT 99.5 % (95-98); ARTERIAL BLOOD GAS PCO2 34 mm/Hg (35-45); ARTERIAL BLOOD GAS PH 7.45 (7.35-7.45); ARTERIAL BLOOD GAS PO2 171 mm/Hg (80-100); ARTERIAL BLOOD GAS TCO2 24.6 mmol/L (22-28)
[2017-11-12 06:04] LABS: BASO % 0.3 % (0.0-2.0); EOS % 0.1 % (0.0-4.0); HEMOGLOBIN 8.7 g/dL (11.0-16.0); LYMPH % 11.9 % (20.0-40.0); MEAN CELL VOLUME 91.6 fL (81.0-99.0); MEAN CORPUSCULAR HEMOGLOBIN 31.5 pg (27.0-31.0); MEAN CORPUSCULAR HGB CONC 34.4 g/dL (33.0-37.0); MEAN PLATELET VOLUME 8.1 fL (7.2-11.7); MONO # 0.7 K/uL (0.0-0.8); NEUT # 6.8 K/uL (1.8-7.0); NEUT % 79.7 % (50.0-75.0); NRBC % 0.1 % (0.0-2.0); RBC 2.76 Mil/uL (3.80-5.20); WHITE BLOOD COUNT 8.6 K/uL (4.8-10.8)
[2017-11-12 06:29] LABS: ALB/GLOB RATIO 0.9 (1.0-2.1); ALBUMIN 2.9 g/dL (3.5-5.0); ALT/SGPT 20 U/L (9-52); AST/SGOT 32 U/L (14-36); BLOOD UREA NITROGEN 14 mg/dL (7-17); CALCIUM 7.6 mg/dl (8.6-10.4); GFR AFRICAN-AMERICAN > 60; GFR NON-AFRICAN AMERICAN > 60
--- NOTE | 2017-11-12 08:25 | RAD ---
HISTORY: vent COMPARISON: 11/11/2017 FINDINGS: LUNGS: No active pulmonary disease. PLEURA: No significant pleural effusion identified, no pneumothorax apparent. CARDIOVASCULAR: CABG. Permanent pacemaker. ET tube unchanged. Right IJ multi lumen central venous catheter. OSSEOUS STRUCTURES: No significant abnormalities. VISUALIZED UPPER ABDOMEN: Normal. OTHER FINDINGS: None. IMPRESSION: No active disease.
[2017-11-12] MEDS: Magnesium Sulfate 1 gm in D5W 1 GM/100 ML BAG IVPB SCH ×2 (08:27→09:27)
[2017-11-12 10:35] LABS: CK-MB 0.56 ng/mL (0.0-3.38)
--- NOTE | 2017-11-12 11:56 | CP.PCM.PN ---
Subjective - Date & Time of Evaluation Date of Evaluation: 11/12/17 Time of Evaluation: 11:56 - Subjective Subjective: CHIEF COMPLAINTS TODAY : TMAX 102*, intubated arousable. secretions+ve thick greyish as per RN +VE FOLYS-output 100cc/hrly ROS. ON OBSERVATION. HEENT : N. Resp : No SOB wheezing, cough +VE THICK SECRETIONS. Cardio : No CP, PND orthopnea GI : No abd. 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 Musculoskel : N Ext. : Pedal pulses intact, no edema or calf pain Derm : N Psych : N. PE. Pt. is awake, INTUBATED, in no distress. V.S As noted in the chart Head ,ear nose,throat and eyes : Normal. Neck : Supple with normal carotids. Lungs: B/L RHONCHI Heart : S1 & S2 normal . . No murmur. S4 + Abd : Soft non tender with normal bowel sounds. Neuro : Moves all ext. with no localized deficit. Ext : No edema with intact pulses. Neg. calf tenderness Derm : No rashes or decubitus ulcer. Radiology/Labs . SPUTUM +VE staph aureus GT-EXIT SITE SECRETIONS +VE GNR/YEAST pOTASSIUM 2.7 cREATININE 0.6/bun 14. LFTS N. VANCO TROUGH 14.6 OK Asssessment : SEPSIS/LEUKOCYTOSIS ACUTE RESPIRATORY FAILURE /ASPIRATION PNEUMONIA. GT-EXIT SITE DRAINAGE. dIABETES MELLITUS. CAD/S/P CABG Plan: CONTINUE iv AZACTAM 1 G EVERY 8 HOURLY. 11/09/17. CONTINUE iv VANCOMYCIN 1 G EVERY 24 HOURLY. 11/10/17. ON iv dIFLUCAN 100 MG ONCE A DAY DAILY iv PIGGYBACK.-2DAY lOADING DOSE dIFLUCAN 200 MG GIVEN . F/U K/LFTS POTASSIUM SUPPLEMENT PER pmd. MONITOR RENAL FUNCTIONS CLOSELY. PULMONARY TOILET WEANING PER PMD. Objective - Vital Signs/Intake and Output Vital Signs (last 24 hours): Temp Pulse Resp BP Pulse Ox 99.4 F 87 14 96/44 L 99 11/12/17 04:00 11/12/17 10:53 11/12/17 10:53 11/12/17 10:53 11/12/17 10:53 Intake and Output: 11/12/17 11/12/17 06:59 18:59 Intake Total 1408.9 647.7 Output Total 1245 330 Balance 163.9 317.7 - Medications Medications: Current Medications Acetaminophen (Tylenol 650 Mg Supp) 650 mg IA Q6 PRN PRN Reason: Fever >100.4 F Last Admin: 11/11/17 16:28 Dose: 650 mg Albuterol/Ipratropium (Duoneb 3 Mg/0.5 Mg (3 Ml) Ud) 3 ml INH RQ6 [facility] Last Admin: 11/12/17 07:45 Dose: 3 ml Diltiazem HCl (Cardizem) 30 mg PO QID [facility] Last Admin: 11/12/17 10:20 Dose: 30 mg Famotidine (Pepcid) 20 mg IVP DAILY [facility] Last Admin: 11/12/17 10:20 Dose: 20 mg Heparin Sodium (Porcine) (Heparin) 5,000 units SC Q8 [facility] Last Admin: 11/12/17 05:03 Dose: 5,000 units Sodium Chloride (Sodium Chloride 0.9%) 1,000 mls @ 100 mls/hr IV .Q10H [facility] Last Admin: 11/12/17 04:24 Dose: Not Given Aztreonam 1 gm/ Sodium (Chloride) 100 mls @ 200 mls/hr IVPB Q8H [facility] PRN Reason: Protocol Last Admin: 11/12/17 09:41 Dose: 200 mls/hr Propofol (Diprivan) 1,000 mg in 100 mls @ 1.388 mls/hr IV .Q24H PRN; Protocol; 5 MCG/KG/MIN PRN Reason: TITRATE PER MD ORDER Last Titration: 11/12/17 10:45 Dose: 10 mcg/kg/min, 2.776 mls/hr Vancomycin/Sodium Chloride (Vancomycin 1 Gm/Ns 200 Ml) 1 gm in 200 mls @ 133.333 mls/hr IVPB Q24H [facility] PRN Reason: Protocol Stop: 11/15/17 13:31 Last Admin: 11/11/17 13:50 Dose: 133.333 mls/hr Potassium Chloride (Potassium Chloride 20 Meq/100 Ml) 20 meq in 100 mls @ 50 mls/hr IVPB ONCE ONE Stop: 11/12/17 13:29 Last Admin: 11/12/17 10:33 Dose: 50 mls/hr Potassium Chloride (Potassium Chloride 20 Meq/100 Ml) 20 meq in 100 mls @ 50 mls/hr IVPB ONCE ONE Stop: 11/12/17 15:29 Fluconazole 100 mg/ (Miscellaneous) 50 mls @ 100 mls/hr IVPB DAILY [facility] PRN Reason: Protocol Insulin Human Regular (Novolin R) 0 unit SC Q6H [facility] PRN Reason: Protocol Last Admin: 11/12/17 06:13 Dose: Not Given Metoprolol Tartrate (Lopressor) 75 mg PEG Q12H [facility] Last Admin: 11/12/17 06:03 Dose: 75 mg Mupirocin (Bactroban Ointment) 0 gm TOP BID [facility] Last Admin: 11/12/17 11:53 Dose: 1 applic Nystatin (Nystop Topical Powder) 0 gm TOP TID [facility] - Labs Labs: 11/12/17 05:56 11/12/17 05:56 Assessment and Plan (1) Sepsis Status: Acute (2) Respiratory failure with hypoxia Status: Acute (3) Pneumonia Status: Acute (4) Leukocytosis Status: Acute (5) Gastrostomy tube in place Status: Acute (6) CAD (coronary artery disease) Status: Acute (7) Uncontrolled diabetes mellitus Status: Acute (8) Hx of CABG Status: Acute
[2017-11-12] MEDS: Nystatin 100,000 Units/gm Topical Pow(15 gm) TOP SCH ×2 (13:42→18:59)
[2017-11-12] MEDS: Vancomycin 1 gm/NS 200 ml 1 GM/200 ML BAG IVPB SCH (13:43)
[2017-11-12] MEDS: Propofol 10 mg/ml 1,000 MG/100 ML VIAL IV PRN (13:57)
[2017-11-12] MEDS: Fluconazole IV 100mg/50 ml NS 50 ML IVPB SCH (14:14)
--- NOTE | 2017-11-12 18:50 | CP.CCUPN ---
CCU Subjective - Physician Review Subjective (Free Text): 11/12/17 18:43 Patient seen and examined. Patient is intubated and sedated. Failed CPAP trial this morning. CCU Objective - Vital Signs / Intake & Output Intake and Output (Last 8hrs): Intake & Output 11/12/17 11/12/17 11/12/17 06:59 14:59 22:59 Intake Total 992.5 662.7 Output Total 970 330 Balance 22.5 332.7 Weight 208 lb Intake: IV 50 50 Intake, IV Amount 942.5 612.7 Left Hand 400 Right Medial Port 42.5 12.7 Internal Jugular Right Proximal Port 900 200 Internal Jugular Output: Urine 970 330 Urethral (Gregory) 970 330 - Physical Exam Physical Exam Limitations: Positive for: Altered Mental Status Head: Positive for: Atraumatic, Normocephalic Pupils: Positive for: PERRL Conjunctiva: Positive for: Normal Mouth: Positive for: Dry Respiratory/Chest: Positive for: Decreased Breath Sounds Cardiovascular: Positive for: Normal S1, S2, Tachycardic Abdomen: Positive for: Distention, Normal Bowel Sounds, Feeding Tubes (PEG tube) , Other (excoriations around PEG tube) Upper Extremity: Positive for: Normal Inspection Lower Extremity: Positive for: Normal Inspection Skin: Positive for: Warm, Dry - Medications Active Medications: Active Medications Generic Name Dose Route Start Last Admin Trade Name Freq PRN Reason Stop Dose Admin Acetaminophen 650 mg 11/10/17 10:52 11/11/17 16:28 Tylenol 650 Mg Supp HI 650 mg Q6 PRN Administration Fever >100.4 F Albuterol/Ipratropium 3 ml 11/10/17 14:00 11/12/17 13:40 Duoneb 3 Mg/0.5 Mg (3 Ml) Ud INH 3 ml RQ6 JUDY Administration Diltiazem HCl 30 mg 11/10/17 18:00 11/12/17 13:57 Cardizem PO 30 mg QID JUDY Administration Famotidine 20 mg 11/12/17 10:15 11/12/17 10:20 Pepcid IVP 20 mg DAILY JUDY Administration Heparin Sodium (Porcine) 5,000 units 11/10/17 06:00 11/12/17 13:52 Heparin SC 5,000 units Q8 JUDY Administration Sodium Chloride 1,000 mls @ 100 mls/hr 11/09/17 23:45 11/12/17 13:41 Sodium Chloride 0.9% IV 100 mls/hr .Q10H JUDY Administration Aztreonam 1 gm/ Sodium 100 mls @ 200 mls/hr 11/10/17 09:30 11/12/17 09:41 Chloride IVPB 200 mls/hr Q8H JUDY Administration Protocol Propofol 1,000 mg in 100 mls @ 1.388 mls/hr 11/10/17 09:16 11/12/17 13:57 Diprivan IV 10 mcg/kg/min .Q24H PRN 2.776 mls/hr TITRATE PER MD ORDER Administration Protocol 5 MCG/KG/MIN Vancomycin/Sodium Chloride 1 gm in 200 mls @ 133.333 mls/hr 11/10/17 13:30 13:43 Vancomycin 1 Gm/Ns 200 Ml IVPB 11/15/17 13:31 133.333 mls/hr Q24H JUDY Administration Protocol Fluconazole 50 mls @ 100 mls/hr 11/12/17 13:00 11/12/17 14:14 Diflucan Iv 100 Mg/50 Ml Ns IVPB 100 mls/hr DAILY JUDY Administration Protocol Insulin Human Regular 0 unit 11/10/17 18:00 11/12/17 13:15 Novolin R SC 2 unit Q6H JUDY Administration Protocol Metoprolol Tartrate 75 mg 11/10/17 07:00 11/12/17 06:03 Lopressor PEG 75 mg Q12H JUDY Administration Mupirocin 0 gm 11/12/17 10:15 11/12/17 11:53 Bactroban Ointment TOP 1 applic BID JUDY Administration Nystatin 0 gm 11/12/17 14:00 11/12/17 13:42 Nystop Topical Powder TOP 1 applic TID JUDY Administration - Patient Studies Lab Studies: Microbiology Studies 11/11/17 16:45 Blood Culture - Preliminary Blood-Thru Central Line NO GROWTH AFTER 24 HOURS 11/11/17 17:00 Blood Culture - Preliminary Blood-Thru Central Line NO GROWTH AFTER 24 HOURS 11/10/17 Unknown Gram Stain - Final Peg Site Wound Culture - Preliminary Gram Negative Sal Yeast Species 11/11/17 Unknown Urine Culture - Final Urine,Gregory No Growth (<1,000 CFU/ML) 11/11/17 17:00 Gram Stain - Final Trachasp Sputum Culture - Preliminary Gram Positive Cocci 11/09/17 21:00 Blood Culture - Preliminary Blood NO GROWTH AFTER 48 HOURS 11/09/17 21:30 Blood Culture - Preliminary Blood NO GROWTH AFTER 48 HOURS 11/10/17 Unknown Gram Stain - Final Trachasp Sputum Culture - Final Staphylococcus Aureus 11/10/17 17:22 MRSA Culture (Admit) - Final Naris MRSA NOT DETECTED Lab Studies 11/12/17 11/12/17 11/12/17 Range/Units 18:01 11:35 05:56 WBC (4.8-10.8) K/uL RBC (3.80-5.20) Mil/uL Hgb (11.0-16.0) g/dL Hct (34.0-47.0) % MCV (81.0-99.0) fL MCH (27.0-31.0) pg MCHC (33.0-37.0) g/dL RDW (11.5-14.5) % Plt Count (130-400) K/uL MPV (7.2-11.7) fL Neut % (Auto) (50.0-75.0) % Lymph % (Auto) (20.0-40.0) % [place] % (Auto) (0.0-10.0) % Eos % (Auto) (0.0-4.0) % Baso % (Auto) (0.0-2.0) % Neut # (Auto) (1.8-7.0) K/uL Lymph # (Auto) (1.0-4.3) K/uL [place] # (Auto) (0.0-0.8) K/uL Eos # (Auto) (0.0-0.7) K/uL Baso # (Auto) (0.0-0.2) K/uL Puncture Site pCO2 (35-45) mm/Hg pO2 (80-100) mm/Hg HCO3 (21-28) mmol/L ABG pH (7.35-7.45) ABG Total CO2 (22-28) mmol/L ABG O2 Saturation (95-98) % ABG Base Excess (-2.0-3.0) mmol/L ABG Hemoglobin (11.7-17.4) g/dL ABG Carboxyhemoglobin (0.5-1.5) % POC ABG HHb (Measured) (0.0-5.0) % ABG Methemoglobin (0.0-3.0) % Scout Test A-a O2 Difference mm/Hg Respiratory Index Hgb O2 Saturation (95.0-98.0) % Vent Mode Mechanical Rate FiO2 % Tidal Volume PEEP Sodium 138 (132-148) mmol/L Potassium 2.7 L (3.6-5.2) mmol/L Chloride 101 (98-107) mmol/L Carbon Dioxide 23 (22-30) mmol/L Anion Gap 17 (10-20) BUN 14 (7-17) mg/dL Creatinine 0.6 L (0.7-1.2) mg/dL Est GFR ( Amer) > 60 Est GFR (Non-Af Amer) > 60 POC Glucose (mg/dL) 184 H 186 H (65-110) mg/dL Random Glucose 107 H (65-105) mg/dL Calcium 7.6 L (8.6-10.4) mg/dl Phosphorus 2.4 L (2.5-4.5) mg/dL Magnesium 1.4 L (1.6-2.3) mg/dL Total Bilirubin 0.5 (0.2-1.3) mg/dL AST 32 (14-36) U/L ALT 20 (9-52) U/L Alkaline Phosphatase 47 (38-126) U/L Total Creatine Kinase 152 H (30-135) U/L CK-MB (Mass) 0.56 (0.0-3.38) ng/mL Troponin I 0.0870 (0.00-0.120) ng/mL Total Protein 6.1 L (6.3-8.3) g/dL Albumin 2.9 L (3.5-5.0) g/dL Globulin 3.2 (2.2-3.9) gm/dL Albumin/Globulin Ratio 0.9 L (1.0-2.1) 11/12/17 11/12/17 11/12/17 Range/Units 05:56 05:42 05:21 WBC 8.6 (4.8-10.8) K/uL RBC 2.76 L (3.80-5.20) Mil/uL Hgb 8.7 L (11.0-16.0) g/dL Hct 25.3 L (34.0-47.0) % MCV 91.6 (81.0-99.0) fL MCH 31.5 H (27.0-31.0) pg MCHC 34.4 (33.0-37.0) g/dL RDW 13.0 (11.5-14.5) % Plt Count 208 (130-400) K/uL MPV 8.1 (7.2-11.7) fL Neut % (Auto) 79.7 H (50.0-75.0) % Lymph % (Auto) 11.9 L (20.0-40.0) % [place] % (Auto) 8.0 (0.0-10.0) % Eos % (Auto) 0.1 (0.0-4.0) % Baso % (Auto) 0.3 (0.0-2.0) % Neut # (Auto) 6.8 (1.8-7.0) K/uL Lymph # (Auto) 1.0 (1.0-4.3) K/uL [place] # (Auto) 0.7 (0.0-0.8) K/uL Eos # (Auto) 0.0 (0.0-0.7) K/uL Baso # (Auto) 0.0 (0.0-0.2) K/uL Puncture Site R rad pCO2 34 L (35-45) mm/Hg pO2 171 H (80-100) mm/Hg HCO3 24.9 (21-28) mmol/L ABG pH 7.45 (7.35-7.45) ABG Total CO2 24.6 (22-28) mmol/L ABG O2 Saturation 99.5 H (95-98) % ABG Base Excess 0 (-2.0-3.0) mmol/L ABG Hemoglobin 11.1 L (11.7-17.4) g/dL ABG Carboxyhemoglobin 1.5 (0.5-1.5) % POC ABG HHb (Measured) 0.5 (0.0-5.0) % ABG Methemoglobin 1.3 (0.0-3.0) % Scout Test Pos A-a O2 Difference 72.0 mm/Hg Respiratory Index 0.4 Hgb O2 Saturation 96.7 (95.0-98.0) % Vent Mode Prvc Mechanical Rate 14 FiO2 40.0 % Tidal Volume 400 PEEP 5 Sodium (132-148) mmol/L Potassium (3.6-5.2) mmol/L Chloride (98-107) mmol/L Carbon Dioxide (22-30) mmol/L Anion Gap (10-20) BUN (7-17) mg/dL Creatinine (0.7-1.2) mg/dL Est GFR ( Amer) Est GFR (Non-Af Amer) POC Glucose (mg/dL) 122 H (65-110) mg/dL Random Glucose (65-105) mg/dL Calcium (8.6-10.4) mg/dl Phosphorus (2.5-4.5) mg/dL Magnesium (1.6-2.3) mg/dL Total Bilirubin (0.2-1.3) mg/dL AST (14-36) U/L ALT (9-52) U/L Alkaline Phosphatase (38-126) U/L Total Creatine Kinase (30-135) U/L CK-MB (Mass) (0.0-3.38) ng/mL Troponin I (0.00-0.120) ng/mL Total Protein (6.3-8.3) g/dL Albumin (3.5-5.0) g/dL Globulin (2.2-3.9) gm/dL Albumin/Globulin Ratio (1.0-2.1) 11/11/17 11/09/17 Range/Units 23:39 23:52 WBC (4.8-10.8) K/uL RBC (3.80-5.20) Mil/uL Hgb (11.0-16.0) g/dL Hct (34.0-47.0) % MCV (81.0-99.0) fL MCH (27.0-31.0) pg MCHC (33.0-37.0) g/dL RDW (11.5-14.5) % Plt Count (130-400) K/uL MPV (7.2-11.7) fL Neut % (Auto) (50.0-75.0) % Lymph % (Auto) (20.0-40.0) % [place] % (Auto) (0.0-10.0) % Eos % (Auto) (0.0-4.0) % Baso % (Auto) (0.0-2.0) % Neut # (Auto) (1.8-7.0) K/uL Lymph # (Auto) (1.0-4.3) K/uL [place] # (Auto) (0.0-0.8) K/uL Eos # (Auto) (0.0-0.7) K/uL Baso # (Auto) (0.0-0.2) K/uL Puncture Site pCO2 (35-45) mm/Hg pO2 (80-100) mm/Hg HCO3 (21-28) mmol/L ABG pH (7.35-7.45) ABG Total CO2 (22-28) mmol/L ABG O2 Saturation (95-98) % ABG Base Excess (-2.0-3.0) mmol/L ABG Hemoglobin (11.7-17.4) g/dL ABG Carboxyhemoglobin (0.5-1.5) % POC ABG HHb (Measured) (0.0-5.0) % ABG Methemoglobin (0.0-3.0) % Scout Test A-a O2 Difference mm/Hg Respiratory Index Hgb O2 Saturation (95.0-98.0) % Vent Mode Mechanical Rate FiO2 % Tidal Volume PEEP Sodium (132-148) mmol/L Potassium (3.6-5.2) mmol/L Chloride (98-107) mmol/L Carbon Dioxide (22-30) mmol/L Anion Gap (10-20) BUN (7-17) mg/dL Creatinine (0.7-1.2) mg/dL Est GFR ( Amer) Est GFR (Non-Af Amer) POC Glucose (mg/dL) 130 H 293 H (65-110) mg/dL Random Glucose (65-105) mg/dL Calcium (8.6-10.4) mg/dl Phosphorus (2.5-4.5) mg/dL Magnesium (1.6-2.3) mg/dL Total Bilirubin (0.2-1.3) mg/dL AST (14-36) U/L ALT (9-52) U/L Alkaline Phosphatase (38-126) U/L Total Creatine Kinase (30-135) U/L CK-MB (Mass) (0.0-3.38) ng/mL Troponin I (0.00-0.120) ng/mL Total Protein (6.3-8.3) g/dL Albumin (3.5-5.0) g/dL Globulin (2.2-3.9) gm/dL Albumin/Globulin Ratio (1.0-2.1) Laboratory Results - last 24 hr 11/09/17 11/11/17 11/12/17 23:52 23:39 05:21 WBC RBC Hgb Hct MCV MCH MCHC RDW Plt Count MPV Neut % (Auto) Lymph % (Auto) [place] % (Auto) Eos % (Auto) Baso % (Auto) Neut # (Auto) Lymph # (Auto) [place] # (Auto) Eos # (Auto) Baso # (Auto) Puncture Site pCO2 pO2 HCO3 ABG pH ABG Total CO2 ABG O2 Saturation ABG Base Excess ABG Hemoglobin ABG Carboxyhemoglobin POC ABG HHb (Measured) ABG Methemoglobin Scout Test A-a O2 Difference Respiratory Index Hgb O2 Saturation Vent Mode Mechanical Rate FiO2 Tidal Volume PEEP Sodium Potassium Chloride Carbon Dioxide Anion Gap BUN Creatinine Est GFR ( Amer) Est GFR (Non-Af Amer) POC Glucose (mg/dL) 293 H 130 H 122 H Random Glucose Calcium Phosphorus Magnesium Total Bilirubin AST ALT Alkaline Phosphatase Total Creatine Kinase CK-MB (Mass) Troponin I Total Protein Albumin Globulin Albumin/Globulin Ratio 11/12/17 11/12/17 11/12/17 05:42 05:56 05:56 WBC 8.6 RBC 2.76 L Hgb 8.7 L Hct 25.3 L MCV 91.6 MCH 31.5 H MCHC 34.4 RDW 13.0 Plt Count 208 MPV 8.1 Neut % (Auto) 79.7 H Lymph % (Auto) 11.9 L [place] % (Auto) 8.0 Eos % (Auto) 0.1 Baso % (Auto) 0.3 Neut # (Auto) 6.8 Lymph # (Auto) 1.0 [place] # (Auto) 0.7 Eos # (Auto) 0.0 Baso # (Auto) 0.0 Puncture Site R rad pCO2 34 L pO2 171 H HCO3 24.9 ABG pH 7.45 ABG Total CO2 24.6 ABG O2 Saturation 99.5 H ABG Base Excess 0 ABG Hemoglobin 11.1 L ABG Carboxyhemoglobin 1.5 POC ABG HHb (Measured) 0.5 ABG Methemoglobin 1.3 Scout Test Pos A-a O2 Difference 72.0 Respiratory Index 0.4 Hgb O2 Saturation 96.7 Vent Mode Prvc Mechanical Rate 14 FiO2 40.0 Tidal Volume 400 PEEP 5 Sodium 138 Potassium 2.7 L Chloride 101 Carbon Dioxide 23 Anion Gap 17 BUN 14 Creatinine 0.6 L Est GFR ( Amer) > 60 Est GFR (Non-Af Amer) > 60 POC Glucose (mg/dL) Random Glucose 107 H Calcium 7.6 L Phosphorus 2.4 L Magnesium 1.4 L Total Bilirubin 0.5 AST 32 ALT 20 Alkaline Phosphatase 47 Total Creatine Kinase 152 H CK-MB (Mass) 0.56 Troponin I 0.0870 Total Protein 6.1 L Albumin 2.9 L Globulin 3.2 Albumin/Globulin Ratio 0.9 L 11/12/17 11/12/17 11:35 18:01 WBC RBC Hgb Hct MCV MCH MCHC RDW Plt Count MPV Neut % (Auto) Lymph % (Auto) [place] % (Auto) Eos % (Auto) Baso % (Auto) Neut # (Auto) Lymph # (Auto) [place] # (Auto) Eos # (Auto) Baso # (Auto) Puncture Site pCO2 pO2 HCO3 ABG pH ABG Total CO2 ABG O2 Saturation ABG Base Excess ABG Hemoglobin ABG Carboxyhemoglobin POC ABG HHb (Measured) ABG Methemoglobin Scout Test A-a O2 Difference Respiratory Index Hgb O2 Saturation Vent Mode Mechanical Rate FiO2 Tidal Volume PEEP Sodium Potassium Chloride Carbon Dioxide Anion Gap BUN Creatinine Est GFR ( Amer) Est GFR (Non-Af Amer) POC Glucose (mg/dL) 186 H 184 H Random Glucose Calcium Phosphorus Magnesium Total Bilirubin AST ALT Alkaline Phosphatase Total Creatine Kinase CK-MB (Mass) Troponin I Total Protein Albumin Globulin Albumin/Globulin Ratio Fingerstick Blood Sugar Results: 186 Critical Care Progress Note - Nutrition Nutrition: Nutrition Category Date Time Status NPO Diet [DIET] Diets 11/09/17 Breakfast Active Assessment/Plan - Assessment and Plan (Free Text) Assessment: This is an 87 year old female with PMHx achalasia, DM, CAD, COPD, osteoarthritis who presented from the intermediate for altered mental status and shortness of breath. Patient intubated and sedated. Neuro Intubated and sedated on Diprivan Cardio Cardizem 30 mg PEG QID Lopressor 75 mg PEG Q12H Pulm Vented GI Tube feeds Infectious Diseases Vancomycin 1 gm Q24H Aztreonam 1 gm Q8H Fluconazole IV daily Bactroban for PEG site excoriations Nystatin topical Prophylaxis Heparin SC Q8 Pepcid 20 mg IV daily Discussed with Dr. Patel
--- NOTE | 2017-11-12 20:36 | CARD ---
APPROVED REPORT EKG Measurement Heart [id number] <Conclusion> Sinus tachycardia Possible Left atrial enlargement Right bundle branch block Left ventricular hypertrophy Inferior infarct, age undetermined T wave abnormality, consider lateral ischemia Abnormal ECG
--- NOTE | 2017-11-12 22:19 | CP.PCM.CON ---
History of Present Illness - History of Present Illness History of Present Illness: Patient seen and evaluated On Mechanical ventilation for Respiratory failure Review Of Systems Review Of Systems: ROS cannot be obtained secondary to pt's inabilty to answer questions. (Due to clinical condition) Physical Exam - Physical Exam Appears: Non-toxic, Other (lethargic; responds to pain ) Skin: Warm, Dry Head: Normacephalic Eye(s): bilateral: Normal Inspection Oral Mucosa: Dry Teeth: Other (Poor dentition) Neck: Trachea Midline, Supple Chest: Symmetrical, No Tenderness, Other (cabg scar, pacer in left chest) Cardiovascular: Rhythm Regular Respiratory: No Decreased Breath Sounds, No Rales, Rhonchi (Scattered), No Wheezing Gastrointestinal/Abdominal: Soft, No Tenderness, No Distention, No Guarding, No Rebound, Other (peg in place) Back: No CVA Tenderness Extremity: Normal ROM, No Tenderness, No Pedal Edema, No Deformity, No Swelling Extremity: Bilateral: Atraumatic, Normal Color And Temperature Pulses: Left Dorsalis Pedis: Normal, Right Dorsalis Pedis: Normal Neurological/Psych: Eyes Open With Command, Slow To Respond With Command Gait: Unable To Assess Past Patient History - Infectious Disease Hx of Infectious Diseases: None - Past Medical History & Family History Past Medical History?: Yes - Past Social History Smoking Status: Unknown If Ever Smoked - CARDIAC Hx Cardia Arrhythmia: Yes Hx Congestive Heart Failure: Yes Hx Hypercholesterolemia: Yes Hx Hypertension: Yes Hx Pacemaker: Yes - PULMONARY Hx Bronchitis: Yes Hx Chronic Obstructive Pulmonary Disease (COPD): Yes Hx Pneumonia: Yes - NEUROLOGICAL Hx Seizures: No - HEENT Hx HEENT Problems: Yes Hx Cataracts: Yes (2000 Rt.Eye,2009Left Eye) - RENAL Hx Chronic Kidney Disease: No - ENDOCRINE/METABOLIC Hx Diabetes Mellitus Type 2: Yes - HEMATOLOGICAL/ONCOLOGICAL Hx Human Immunodeficiency Virus (HIV): No - INTEGUMENTARY Hx Dermatological Problems: No - MUSCULOSKELETAL/RHEUMATOLOGICAL Hx Falls: Yes - GASTROINTESTINAL Hx Gastrointestinal Disorders: Yes Hx Colitis: Yes Hx Gastroesophageal Reflux: Yes HX Swallowing Problems: Yes (Achalasia. 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) Hx Coronary Stent: Yes - ANESTHESIA Hx Anesthesia: Yes Hx Anesthesia Reactions: No Hx Malignant Hyperthermia: No Meds Allergies/Adverse Reactions: Allergies Allergy/AdvReac Type Severity Reaction Status Date / Time azithromycin [From Zithromax] Allergy Verified 11/09/17 20:54 ciprofloxacin HCl Allergy Verified 11/09/17 20:54 [From Cipro] diphenhydramine HCl Allergy Verified 11/09/17 20:54 [From Benadryl] fish oil Allergy Verified 11/09/17 20:54 iodine Allergy Verified 11/09/17 20:54 losartan potassium Allergy Verified 11/09/17 20:54 [From Cozaar] metronidazole [From Flagyl] Allergy Verified 11/09/17 20:54 nitroglycerin Allergy Verified 11/09/17 20:54 Penicillins Allergy Verified 11/09/17 20:54 sulfamethoxazole Allergy Verified 11/09/17 20:54 [From Bactrim] trimethoprim [From Bactrim] Allergy Verified 11/09/17 20:54 zolpidem Allergy Verified 11/09/17 20:54 clopidogrel bisulfate AdvReac Verified 11/09/17 20:54 [From Plavix] - Medications Medications: Current Medications Acetaminophen (Tylenol 650 Mg Supp) 650 mg WI Q6 PRN PRN Reason: Fever >100.4 F Last Admin: 11/11/17 16:28 Dose: 650 mg Albuterol/Ipratropium (Duoneb 3 Mg/0.5 Mg (3 Ml) Ud) 3 ml INH RQ6 [facility] Last Admin: 11/12/17 20:08 Dose: 3 ml Diltiazem HCl (Cardizem) 30 mg PO QID [facility] Last Admin: 11/12/17 21:20 Dose: 30 mg Famotidine (Pepcid) 20 mg IVP DAILY [facility] Last Admin: 11/12/17 10:20 Dose: 20 mg Heparin Sodium (Porcine) (Heparin) 5,000 units SC Q8 [facility] Last Admin: 11/12/17 21:21 Dose: 5,000 units Sodium Chloride (Sodium Chloride 0.9%) 1,000 mls @ 100 mls/hr IV .Q10H [facility] Last Admin: 11/12/17 21:21 Dose: Not Given Aztreonam 1 gm/ Sodium (Chloride) 100 mls @ 200 mls/hr IVPB Q8H JUDY PRN Reason: Protocol Last Admin: 11/12/17 17:30 Dose: 200 mls/hr Propofol (Diprivan) 1,000 mg in 100 mls @ 1.388 mls/hr IV .Q24H PRN; Protocol; 5 MCG/KG/MIN PRN Reason: TITRATE PER MD ORDER Last Titration: 11/12/17 19:28 Dose: 15 mcg/kg/min, 4.164 mls/hr Vancomycin/Sodium Chloride (Vancomycin 1 Gm/Ns 200 Ml) 1 gm in 200 mls @ 133.333 mls/hr IVPB Q24H JUDY PRN Reason: Protocol Stop: 11/15/17 13:31 Last Admin: 11/12/17 13:43 Dose: 133.333 mls/hr Fluconazole (Diflucan Iv 100 Mg/50 Ml Ns) 50 mls @ 100 mls/hr IVPB DAILY JUDY PRN Reason: Protocol Last Admin: 11/12/17 14:14 Dose: 100 mls/hr Insulin Human Regular (Novolin R) 0 unit SC Q6H JUDY PRN Reason: Protocol Last Admin: 11/12/17 18:57 Dose: 2 unit Metoprolol Tartrate (Lopressor) 75 mg PEG Q12H JUDY Last Admin: 11/12/17 18:59 Dose: 75 mg Mupirocin (Bactroban Ointment) 0 gm TOP BID [facility] Last Admin: 11/12/17 18:53 Dose: 1 applic Nystatin (Nystop Topical Powder) 0 gm TOP TID [facility] Last Admin: 11/12/17 18:59 Dose: 1 applic Results - Vital Signs Recent Vital Signs: Last Vital Signs Temp 97.9 F 11/12/17 20:00 Pulse 91 H 11/12/17 21:00 Resp 14 11/12/17 21:00 BP 176/70 H 11/12/17 20:55 Pulse Ox 97 11/12/17 21:00 - Labs Result Diagrams: 11/12/17 05:56 11/12/17 05:56 Labs: Laboratory Results - last 24 hr 11/09/17 11/11/17 11/12/17 23:52 23:39 05:21 WBC RBC Hgb Hct MCV MCH MCHC RDW Plt Count MPV Neut % (Auto) Lymph % (Auto) [place] % (Auto) Eos % (Auto) Baso % (Auto) Neut # (Auto) Lymph # (Auto) [place] # (Auto) Eos # (Auto) Baso # (Auto) Puncture Site pCO2 pO2 HCO3 ABG pH ABG Total CO2 ABG O2 Saturation ABG Base Excess ABG Hemoglobin ABG Carboxyhemoglobin POC ABG HHb (Measured) ABG Methemoglobin Scout Test A-a O2 Difference Respiratory Index Hgb O2 Saturation Vent Mode Mechanical Rate FiO2 Tidal Volume PEEP Sodium Potassium Chloride Carbon Dioxide Anion Gap BUN Creatinine Est GFR ( Amer) Est GFR (Non-Af Amer) POC Glucose (mg/dL) 293 H 130 H 122 H Random Glucose Calcium Phosphorus Magnesium Total Bilirubin AST ALT Alkaline Phosphatase Total Creatine Kinase CK-MB (Mass) Troponin I Total Protein Albumin Globulin Albumin/Globulin Ratio 11/12/17 11/12/17 11/12/17 05:42 05:56 05:56 WBC 8.6 RBC 2.76 L Hgb 8.7 L Hct 25.3 L MCV 91.6 MCH 31.5 H MCHC 34.4 RDW 13.0 Plt Count 208 MPV 8.1 Neut % (Auto) 79.7 H Lymph % (Auto) 11.9 L [place] % (Auto) 8.0 Eos % (Auto) 0.1 Baso % (Auto) 0.3 Neut # (Auto) 6.8 Lymph # (Auto) 1.0 [place] # (Auto) 0.7 Eos # (Auto) 0.0 Baso # (Auto) 0.0 Puncture Site R rad pCO2 34 L pO2 171 H HCO3 24.9 ABG pH 7.45 ABG Total CO2 24.6 ABG O2 Saturation 99.5 H ABG Base Excess 0 ABG Hemoglobin 11.1 L ABG Carboxyhemoglobin 1.5 POC ABG HHb (Measured) 0.5 ABG Methemoglobin 1.3 Scout Test Pos A-a O2 Difference 72.0 Respiratory Index 0.4 Hgb O2 Saturation 96.7 Vent Mode Prvc Mechanical Rate 14 FiO2 40.0 Tidal Volume 400 PEEP 5 Sodium 138 Potassium 2.7 L Chloride 101 Carbon Dioxide 23 Anion Gap 17 BUN 14 Creatinine 0.6 L Est GFR ( Amer) > 60 Est GFR (Non-Af Amer) > 60 POC Glucose (mg/dL) Random Glucose 107 H Calcium 7.6 L Phosphorus 2.4 L Magnesium 1.4 L Total Bilirubin 0.5 AST 32 ALT 20 Alkaline Phosphatase 47 Total Creatine Kinase 152 H CK-MB (Mass) 0.56 Troponin I 0.0870 Total Protein 6.1 L Albumin 2.9 L Globulin 3.2 Albumin/Globulin Ratio 0.9 L 11/12/17 11/12/17 11:35 18:01 WBC RBC Hgb Hct MCV MCH MCHC RDW Plt Count MPV Neut % (Auto) Lymph % (Auto) [place] % (Auto) Eos % (Auto) Baso % (Auto) Neut # (Auto) Lymph # (Auto) [place] # (Auto) Eos # (Auto) Baso # (Auto) Puncture Site pCO2 pO2 HCO3 ABG pH ABG Total CO2 ABG O2 Saturation ABG Base Excess ABG Hemoglobin ABG Carboxyhemoglobin POC ABG HHb (Measured) ABG Methemoglobin Scout Test A-a O2 Difference Respiratory Index Hgb O2 Saturation Vent Mode Mechanical Rate FiO2 Tidal Volume PEEP Sodium Potassium Chloride Carbon Dioxide Anion Gap BUN Creatinine Est GFR ( Amer) Est GFR (Non-Af Amer) POC Glucose (mg/dL) 186 H 184 H Random Glucose Calcium Phosphorus Magnesium Total Bilirubin AST ALT Alkaline Phosphatase Total Creatine Kinase CK-MB (Mass) Troponin I Total Protein Albumin Globulin Albumin/Globulin Ratio Assessment & Plan - Assessment and Plan (Free Text) Assessment: This is an 87 year old female with PMHx achalasia, DM, CAD, COPD, osteoarthritis who presented from the intermediate for altered mental status and shortness of breath. Patient intubated and sedated. Neuro Intubated and sedated on Diprivan Cardio Hx of CAD Cardizem 30 mg PEG QID Lopressor 75 mg PEG Q12H Pulm Vented GI Tube feeds Infectious Diseases Vancomycin 1 gm Q24H Aztreonam 1 gm Q8H Fluconazole IV daily Bactroban for PEG site excoriations Nystatin topical Prophylaxis Heparin SC Q8 Pepcid 20 mg IV daily
[2017-11-13] MEDS: Aztreonam 1 GM in Sodium Chloride 0.9% 100 ML IVPB SCH ×3 (00:33→16:45)
[2017-11-13] MEDS: (Novolin R) Insulin Human Regular 100 units/ml vial SC SCH ×4 (00:34→17:57)
[2017-11-13] MEDS: Albuterol-Ipratrop 3 mg / 0.5 (3 ml) UD INH SCH ×4 (01:38→20:22)
[2017-11-13] MEDS: Sodium Chloride 0.9% 1,000 ML IV SCH ×2 (03:23→07:46)
[2017-11-13 05:08] LABS: ABG ALLEN TEST POS; ARTERIAL BLOOD GAS HCO3 22.8 mmol/L (21-28); ARTERIAL BLOOD GAS HEMOGLOBIN 8.4 g/dL (11.7-17.4); ARTERIAL BLOOD GAS O2 SAT 99.5 % (95-98); ARTERIAL BLOOD GAS PCO2 36 mm/Hg (35-45); ARTERIAL BLOOD GAS PH 7.39 (7.35-7.45); ARTERIAL BLOOD GAS PO2 174 mm/Hg (80-100); ARTERIAL BLOOD GAS TCO2 22.9 mmol/L (22-28)
[2017-11-13 06:23] LABS: BASO % 0.4 % (0.0-2.0); EOS # 0.1 K/uL (0.0-0.7); HEMOGLOBIN 8.3 g/dL (11.0-16.0); LYMPH # 1.1 K/uL (1.0-4.3); LYMPH % 17.4 % (20.0-40.0); MEAN CELL VOLUME 91.6 fL (81.0-99.0); MEAN CORPUSCULAR HEMOGLOBIN 31.3 pg (27.0-31.0); MEAN CORPUSCULAR HGB CONC 34.2 g/dL (33.0-37.0); MEAN PLATELET VOLUME 8.3 fL (7.2-11.7); MONO # 0.5 K/uL (0.0-0.8); MONO % 7.9 % (0.0-10.0); NEUT # 4.5 K/uL (1.8-7.0); NEUT % 73.3 % (50.0-75.0); RBC 2.65 Mil/uL (3.80-5.20); RED CELL DISTRIBUTION WIDTH 13.1 % (11.5-14.5); WHITE BLOOD COUNT 6.2 K/uL (4.8-10.8)
[2017-11-13 06:47] LABS: CK-MB 0.47 ng/mL (0.0-3.38)
[2017-11-13 06:51] LABS: ALB/GLOB RATIO 0.8 (1.0-2.1); ALBUMIN 2.7 g/dL (3.5-5.0); ALT/SGPT 43 U/L (9-52); AST/SGOT 78 U/L (14-36); BLOOD UREA NITROGEN 12 mg/dL (7-17); CALCIUM 7.7 mg/dl (8.6-10.4); GFR AFRICAN-AMERICAN > 60; GFR NON-AFRICAN AMERICAN > 60
[2017-11-13] MEDS: Nystatin 100,000 Units/gm Topical Pow(15 gm) TOP SCH ×3 (09:08→17:56)
[2017-11-13] MEDS: Fluconazole IV 100mg/50 ml NS 50 ML IVPB SCH (09:08)
[2017-11-13] MEDS: Propofol 10 mg/ml 1,000 MG/100 ML VIAL IV PRN ×2 (09:10→22:35)
[2017-11-13] MEDS ORDERED: Potassium & Sodium Phosphate PEG ONE (10:18)
--- NOTE | 2017-11-13 10:30 | RAD ---
Chest x-ray single frontal view History: Ventilator. Comparison: 11/12/2017 Findings: Low lying endotracheal tube approximately 6 millimeters above the renata. Retraction approximately 1 centimeter would be helpful. Right-sided central venous catheter tip extending to the right atrium. Left-sided pacemaker. Biapical pleural thickening with upper lobe granulomatous changes. Status post median sternotomy and CABG. Coronary stent in place. Right hilar prominence. Patchy consolidative changes in the right infrahilar region and left suprahilar region. Diffuse increased interstitial lung markings. Scattered nodular densities in both lung driscoll. More confluent nodular density at the right costophrenic angle. Calcification at the aortic knob. Degenerative changes in the spine and shoulders. Impression: Low lying endotracheal tube approximately 6 millimeters above the renata. Retraction approximately 1 centimeter would be helpful. Right-sided central venous catheter tip extending to the right atrium. Left-sided pacemaker. Biapical pleural thickening with upper lobe granulomatous changes. Status post median sternotomy and CABG. Coronary stent in place. Right hilar prominence. Patchy consolidative changes in the right infrahilar region and left suprahilar region. Diffuse increased interstitial lung markings. Scattered nodular densities in both lung driscoll. More confluent nodular density at the right costophrenic angle. Calcification at the aortic knob.
--- NOTE | 2017-11-13 12:42 | CP.CCUPN ---
<Henry Lee - Last Filed: 11/13/17 12:39> CCU Subjective - Physician Review Subjective (Free Text): 11/12/17 18:43 Patient seen and examined. Patient is intubated and sedated. Failed CPAP trial this morning. 11/13/17 12:40 Patient seen and examined. Intubated and sedated. Tolerated CPAP for almost two hours today however was breathing rapidly soon after. CCU Objective - Vital Signs / Intake & Output Vital Signs (Last 4 hours): Vital Signs Pulse Resp BP Pulse Ox 11/13/17 11:00 90 30 H 100 11/13/17 10:49 84 28 H 143/68 100 11/13/17 10:00 84 14 100 11/13/17 09:49 86 14 140/66 100 11/13/17 09:00 88 14 99 11/13/17 08:49 88 14 143/68 100 Intake and Output (Last 8hrs): Intake & Output 11/12/17 11/13/17 11/13/17 22:59 06:59 14:59 Intake Total 688.2 1251.9 676.4 Output Total 740 940 290 Balance -51.8 311.9 386.4 Weight 101 lb Intake: IV 60 40 Intake, IV Amount 438.2 936.9 366.4 Right Distal Port 400 900 350 Internal Jugular Right Medial Port 38.2 36.9 16.4 Internal Jugular Right Proximal Port 0 Internal Jugular Oral 130 Tube Feeding 190 315 140 Output: Urine 740 940 290 Urethral (Gregory) 740 940 290 Other: # Bowel Movements 1 0 - Physical Exam Head: Positive for: Atraumatic, Normocephalic Pupils: Positive for: PERRL Conjunctiva: Positive for: Normal Mouth: Positive for: Dry Respiratory/Chest: Positive for: Decreased Breath Sounds Cardiovascular: Positive for: Normal S1, S2, Tachycardic Abdomen: Positive for: Distention, Normal Bowel Sounds, Feeding Tubes (PEG tube) , Other (excoriations around PEG tube) Upper Extremity: Positive for: Normal Inspection Lower Extremity: Positive for: Normal Inspection Skin: Positive for: Warm, Dry - Medications Active Medications: Active Medications Generic Name Dose Route Start Last Admin Trade Name Freq PRN Reason Stop Dose Admin Acetaminophen 650 mg 11/10/17 10:52 11/11/17 16:28 Tylenol 650 Mg Supp [place] 650 mg Q6 PRN Administration Fever >100.4 F Albuterol/Ipratropium 3 ml 11/10/17 14:00 11/13/17 07:34 Duoneb 3 Mg/0.5 Mg (3 Ml) Ud INH 3 ml RQ6 JUDY Administration Diltiazem HCl 30 mg 11/10/17 18:00 11/13/17 09:08 Cardizem PO 30 mg QID JUDY Administration Famotidine 20 mg 11/12/17 10:15 11/13/17 09:08 Pepcid IVP 20 mg DAILY JUDY Administration Heparin Sodium (Porcine) 5,000 units 11/10/17 06:00 11/13/17 05:18 Heparin SC 5,000 units Q8 JUDY Administration Sodium Chloride 1,000 mls @ 100 mls/hr 11/09/17 23:45 11/13/17 07:46 Sodium Chloride 0.9% IV Not Given .Q10H JUDY Aztreonam 1 gm/ Sodium 100 mls @ 200 mls/hr 11/10/17 09:30 11/13/17 09:09 Chloride IVPB 200 mls/hr Q8H JUDY Administration Protocol Propofol 1,000 mg in 100 mls @ 1.388 mls/hr 11/10/17 09:16 11/13/17 09:10 Diprivan IV 15 mcg/kg/min .Q24H PRN 4.164 mls/hr TITRATE PER MD ORDER Administration Protocol 5 MCG/KG/MIN Vancomycin/Sodium Chloride 1 gm in 200 mls @ 133.333 mls/hr 11/10/17 13:30 13:43 Vancomycin 1 Gm/Ns 200 Ml IVPB 11/15/17 13:31 133.333 mls/hr Q24H JUDY Administration Protocol Fluconazole 50 mls @ 100 mls/hr 11/12/17 13:00 11/13/17 09:08 Diflucan Iv 100 Mg/50 Ml Ns IVPB 100 mls/hr DAILY JUDY Administration Protocol Insulin Human Regular 0 unit 11/10/17 18:00 11/13/17 11:45 Novolin R SC 4 unit Q6H JUDY Administration Protocol Metoprolol Tartrate 75 mg 11/10/17 07:00 11/13/17 06:09 Lopressor PEG 75 mg Q12H JUDY Administration Mupirocin 0 gm 11/12/17 10:15 11/13/17 09:08 Bactroban Ointment TOP 1 applic BID JUDY Administration Nystatin 0 gm 11/12/17 14:00 11/13/17 09:08 Nystop Topical Powder TOP 1 applic TID JUDY Administration - Patient Studies Lab Studies: Microbiology Studies 11/11/17 17:00 Gram Stain - Final Trachasp Sputum Culture - Final Staphylococcus Aureus 11/10/17 Unknown Gram Stain - Final Peg Site Wound Culture - Final Klebsiella Pneumoniae Ssp Pneu Yamile Albicans 11/09/17 21:00 Blood Culture - Preliminary Blood NO GROWTH AFTER 3 DAYS 11/09/17 21:30 Blood Culture - Preliminary Blood NO GROWTH AFTER 3 DAYS 11/11/17 16:45 Blood Culture - Preliminary Blood-Thru Central Line NO GROWTH AFTER 24 HOURS 11/11/17 17:00 Blood Culture - Preliminary Blood-Thru Central Line NO GROWTH AFTER 24 HOURS 11/11/17 Unknown Urine Culture - Final Urine,Gregory No Growth (<1,000 CFU/ML) 11/10/17 Unknown Gram Stain - Final Trachasp Sputum Culture - Final Staphylococcus Aureus Lab Studies 11/13/17 11/13/17 11/13/17 Range/Units 11:37 06:14 06:12 WBC 6.2 (4.8-10.8) K/uL RBC 2.65 L (3.80-5.20) Mil/uL Hgb 8.3 L (11.0-16.0) g/dL Hct 24.3 L (34.0-47.0) % MCV 91.6 (81.0-99.0) fL MCH 31.3 H (27.0-31.0) pg MCHC 34.2 (33.0-37.0) g/dL RDW 13.1 (11.5-14.5) % Plt Count 225 (130-400) K/uL MPV 8.3 (7.2-11.7) fL Neut % (Auto) 73.3 (50.0-75.0) % Lymph % (Auto) 17.4 L (20.0-40.0) % Banner % (Auto) 7.9 (0.0-10.0) % Eos % (Auto) 1.0 (0.0-4.0) % Baso % (Auto) 0.4 (0.0-2.0) % Neut # (Auto) 4.5 (1.8-7.0) K/uL Lymph # (Auto) 1.1 (1.0-4.3) K/uL Banner # (Auto) 0.5 (0.0-0.8) K/uL Eos # (Auto) 0.1 (0.0-0.7) K/uL Baso # (Auto) 0.0 (0.0-0.2) K/uL Puncture Site pCO2 (35-45) mm/Hg pO2 (80-100) mm/Hg HCO3 (21-28) mmol/L ABG pH (7.35-7.45) ABG Total CO2 (22-28) mmol/L ABG O2 Saturation (95-98) % ABG Base Excess (-2.0-3.0) mmol/L ABG Hemoglobin (11.7-17.4) g/dL ABG Carboxyhemoglobin (0.5-1.5) % POC ABG HHb (Measured) (0.0-5.0) % ABG Methemoglobin (0.0-3.0) % Scout Test A-a O2 Difference mm/Hg Respiratory Index Hgb O2 Saturation (95.0-98.0) % Vent Mode Mechanical Rate FiO2 % Tidal Volume PEEP Sodium 141 (132-148) mmol/L Potassium 3.7 (3.6-5.2) mmol/L Chloride 108 H (98-107) mmol/L Carbon Dioxide 23 (22-30) mmol/L Anion Gap 13 (10-20) BUN 12 (7-17) mg/dL Creatinine 0.6 L (0.7-1.2) mg/dL Est GFR ( Amer) > 60 Est GFR (Non-Af Amer) > 60 POC Glucose (mg/dL) 221 H (65-110) mg/dL Random Glucose 124 H (65-105) mg/dL Calcium 7.7 L (8.6-10.4) mg/dl Phosphorus 1.8 L (2.5-4.5) mg/dL Magnesium 2.1 (1.6-2.3) mg/dL Total Bilirubin 0.2 (0.2-1.3) mg/dL AST 78 H D (14-36) U/L ALT 43 (9-52) U/L Alkaline Phosphatase 56 (38-126) U/L Total Creatine Kinase 80 (30-135) U/L CK-MB (Mass) 0.47 (0.0-3.38) ng/mL Troponin I 0.0400 (0.00-0.120) ng/mL Total Protein 6.1 L (6.3-8.3) g/dL Albumin 2.7 L (3.5-5.0) g/dL Globulin 3.4 (2.2-3.9) gm/dL Albumin/Globulin Ratio 0.8 L (1.0-2.1) 11/13/17 11/13/17 11/13/17 Range/Units 04:59 04:40 00:26 WBC (4.8-10.8) K/uL RBC (3.80-5.20) Mil/uL Hgb (11.0-16.0) g/dL Hct (34.0-47.0) % MCV (81.0-99.0) fL MCH (27.0-31.0) pg MCHC (33.0-37.0) g/dL RDW (11.5-14.5) % Plt Count (130-400) K/uL MPV (7.2-11.7) fL Neut % (Auto) (50.0-75.0) % Lymph % (Auto) (20.0-40.0) % Banner % (Auto) (0.0-10.0) % Eos % (Auto) (0.0-4.0) % Baso % (Auto) (0.0-2.0) % Neut # (Auto) (1.8-7.0) K/uL Lymph # (Auto) (1.0-4.3) K/uL Banner # (Auto) (0.0-0.8) K/uL Eos # (Auto) (0.0-0.7) K/uL Baso # (Auto) (0.0-0.2) K/uL Puncture Site Rr pCO2 36 (35-45) mm/Hg pO2 174 H (80-100) mm/Hg HCO3 22.8 (21-28) mmol/L ABG pH 7.39 (7.35-7.45) ABG Total CO2 22.9 (22-28) mmol/L ABG O2 Saturation 99.5 H (95-98) % ABG Base Excess -2.8 L (-2.0-3.0) mmol/L ABG Hemoglobin 8.4 L (11.7-17.4) g/dL ABG Carboxyhemoglobin 1.4 (0.5-1.5) % POC ABG HHb (Measured) 0.5 (0.0-5.0) % ABG Methemoglobin 1.2 (0.0-3.0) % Scout Test Pos A-a O2 Difference 66.0 mm/Hg Respiratory Index 0.4 Hgb O2 Saturation 97.0 (95.0-98.0) % Vent Mode Prvc Mechanical Rate 14 FiO2 40.0 % Tidal Volume 400 PEEP 5 Sodium (132-148) mmol/L Potassium (3.6-5.2) mmol/L Chloride (98-107) mmol/L Carbon Dioxide (22-30) mmol/L Anion Gap (10-20) BUN (7-17) mg/dL Creatinine (0.7-1.2) mg/dL Est GFR ( Amer) Est GFR (Non-Af Amer) POC Glucose (mg/dL) 140 H 214 H (65-110) mg/dL Random Glucose (65-105) mg/dL Calcium (8.6-10.4) mg/dl Phosphorus (2.5-4.5) mg/dL Magnesium (1.6-2.3) mg/dL Total Bilirubin (0.2-1.3) mg/dL AST (14-36) U/L ALT (9-52) U/L Alkaline Phosphatase (38-126) U/L Total Creatine Kinase (30-135) U/L CK-MB (Mass) (0.0-3.38) ng/mL Troponin I (0.00-0.120) ng/mL Total Protein (6.3-8.3) g/dL Albumin (3.5-5.0) g/dL Globulin (2.2-3.9) gm/dL Albumin/Globulin Ratio (1.0-2.1) 04/16/18 Range/Units 18:01 WBC (4.8-10.8) K/uL RBC (3.80-5.20) Mil/uL Hgb (11.0-16.0) g/dL Hct (34.0-47.0) % MCV (81.0-99.0) fL MCH (27.0-31.0) pg MCHC (33.0-37.0) g/dL RDW (11.5-14.5) % Plt Count (130-400) K/uL MPV (7.2-11.7) fL Neut % (Auto) (50.0-75.0) % Lymph % (Auto) (20.0-40.0) % Banner % (Auto) (0.0-10.0) % Eos % (Auto) (0.0-4.0) % Baso % (Auto) (0.0-2.0) % Neut # (Auto) (1.8-7.0) K/uL Lymph # (Auto) (1.0-4.3) K/uL Banner # (Auto) (0.0-0.8) K/uL Eos # (Auto) (0.0-0.7) K/uL Baso # (Auto) (0.0-0.2) K/uL Puncture Site pCO2 (35-45) mm/Hg pO2 (80-100) mm/Hg HCO3 (21-28) mmol/L ABG pH (7.35-7.45) ABG Total CO2 (22-28) mmol/L ABG O2 Saturation (95-98) % ABG Base Excess (-2.0-3.0) mmol/L ABG Hemoglobin (11.7-17.4) g/dL ABG Carboxyhemoglobin (0.5-1.5) % POC ABG HHb (Measured) (0.0-5.0) % ABG Methemoglobin (0.0-3.0) % Scout Test A-a O2 Difference mm/Hg Respiratory Index Hgb O2 Saturation (95.0-98.0) % Vent Mode Mechanical Rate FiO2 % Tidal Volume PEEP Sodium (132-148) mmol/L Potassium (3.6-5.2) mmol/L Chloride (98-107) mmol/L Carbon Dioxide (22-30) mmol/L Anion Gap (10-20) BUN (7-17) mg/dL Creatinine (0.7-1.2) mg/dL Est GFR ( Amer) Est GFR (Non-Af Amer) POC Glucose (mg/dL) 184 H (65-110) mg/dL Random Glucose (65-105) mg/dL Calcium (8.6-10.4) mg/dl Phosphorus (2.5-4.5) mg/dL Magnesium (1.6-2.3) mg/dL Total Bilirubin (0.2-1.3) mg/dL AST (14-36) U/L ALT (9-52) U/L Alkaline Phosphatase (38-126) U/L Total Creatine Kinase (30-135) U/L CK-MB (Mass) (0.0-3.38) ng/mL Troponin I (0.00-0.120) ng/mL Total Protein (6.3-8.3) g/dL Albumin (3.5-5.0) g/dL Globulin (2.2-3.9) gm/dL Albumin/Globulin Ratio (1.0-2.1) Laboratory Results - last 24 hr 11/12/17 11/13/17 11/13/17 18:01 00:26 04:40 WBC RBC Hgb Hct MCV MCH MCHC RDW Plt Count MPV Neut % (Auto) Lymph % (Auto) Banner % (Auto) Eos % (Auto) Baso % (Auto) Neut # (Auto) Lymph # (Auto) Banner # (Auto) Eos # (Auto) Baso # (Auto) Puncture Site pCO2 pO2 HCO3 ABG pH ABG Total CO2 ABG O2 Saturation ABG Base Excess ABG Hemoglobin ABG Carboxyhemoglobin POC ABG HHb (Measured) ABG Methemoglobin Scout Test A-a O2 Difference Respiratory Index Hgb O2 Saturation Vent Mode Mechanical Rate FiO2 Tidal Volume PEEP Sodium Potassium Chloride Carbon Dioxide Anion Gap BUN Creatinine Est GFR ( Amer) Est GFR (Non-Af Amer) POC Glucose (mg/dL) 184 H 214 H 140 H Random Glucose Calcium Phosphorus Magnesium Total Bilirubin AST ALT Alkaline Phosphatase Total Creatine Kinase CK-MB (Mass) Troponin I Total Protein Albumin Globulin Albumin/Globulin Ratio 11/13/17 11/13/17 11/13/17 04:59 06:12 06:14 WBC 6.2 RBC 2.65 L Hgb 8.3 L Hct 24.3 L MCV 91.6 MCH 31.3 H MCHC 34.2 RDW 13.1 Plt Count 225 MPV 8.3 Neut % (Auto) 73.3 Lymph % (Auto) 17.4 L Banner % (Auto) 7.9 Eos % (Auto) 1.0 Baso % (Auto) 0.4 Neut # (Auto) 4.5 Lymph # (Auto) 1.1 Banner # (Auto) 0.5 Eos # (Auto) 0.1 Baso # (Auto) 0.0 Puncture Site Rr pCO2 36 pO2 174 H HCO3 22.8 ABG pH 7.39 ABG Total CO2 22.9 ABG O2 Saturation 99.5 H ABG Base Excess -2.8 L ABG Hemoglobin 8.4 L ABG Carboxyhemoglobin 1.4 POC ABG HHb (Measured) 0.5 ABG Methemoglobin 1.2 Scout Test Pos A-a O2 Difference 66.0 Respiratory Index 0.4 Hgb O2 Saturation 97.0 Vent Mode Prvc Mechanical Rate 14 FiO2 40.0 Tidal Volume 400 PEEP 5 Sodium 141 Potassium 3.7 Chloride 108 H Carbon Dioxide 23 Anion Gap 13 BUN 12 Creatinine 0.6 L Est GFR ( Amer) > 60 Est GFR (Non-Af Amer) > 60 POC Glucose (mg/dL) Random Glucose 124 H Calcium 7.7 L Phosphorus 1.8 L Magnesium 2.1 Total Bilirubin 0.2 AST 78 H D ALT 43 Alkaline Phosphatase 56 Total Creatine Kinase 80 CK-MB (Mass) 0.47 Troponin I 0.0400 Total Protein 6.1 L Albumin 2.7 L Globulin 3.4 Albumin/Globulin Ratio 0.8 L 11/13/17 11:37 WBC RBC Hgb Hct MCV MCH MCHC RDW Plt Count MPV Neut % (Auto) Lymph % (Auto) Banner % (Auto) Eos % (Auto) Baso % (Auto) Neut # (Auto) Lymph # (Auto) Banner # (Auto) Eos # (Auto) Baso # (Auto) Puncture Site pCO2 pO2 HCO3 ABG pH ABG Total CO2 ABG O2 Saturation ABG Base Excess ABG Hemoglobin ABG Carboxyhemoglobin POC ABG HHb (Measured) ABG Methemoglobin Scout Test A-a O2 Difference Respiratory Index Hgb O2 Saturation Vent Mode Mechanical Rate FiO2 Tidal Volume PEEP Sodium Potassium Chloride Carbon Dioxide Anion Gap BUN Creatinine Est GFR ( Amer) Est GFR (Non-Af Amer) POC Glucose (mg/dL) 221 H Random Glucose Calcium Phosphorus Magnesium Total Bilirubin AST ALT Alkaline Phosphatase Total Creatine Kinase CK-MB (Mass) Troponin I Total Protein Albumin Globulin Albumin/Globulin Ratio Fingerstick Blood Sugar Results: 221 Critical Care Progress Note - Nutrition Nutrition: Nutrition Category Date Time Status NPO Diet [DIET] Diets 11/09/17 Breakfast Active Assessment/Plan - Assessment and Plan (Free Text) Assessment: This is an 87 year old female with PMHx achalasia, DM, CAD, COPD, osteoarthritis who [facility] from [facility] for altered mental status and shortness of breath. Patient intubated and sedated. Neuro Intubated and sedated on Diprivan Cardio Cardizem 30 mg PEG QID Lopressor 75 mg PEG Q12H Pulm Vented Will continue to try to wean the patient off of ventilation GI Tube feeds Infectious Diseases Vancomycin 1 gm Q24H Aztreonam 1 gm Q8H Fluconazole IV daily Bactroban for PEG site excoriations Nystatin topical Prophylaxis Heparin SC Q8 Pepcid 20 mg IV daily Discussed with Dr. Watt <Christopher Watt S - Last Filed: 11/13/17 16:40> CCU Objective - Vital Signs / Intake & Output Vital Signs (Last 4 hours): Vital Signs Temp Pulse Resp BP Pulse Ox 11/13/17 16:00 99.4 F 100 H 18 88 L 11/13/17 15:49 102 H 17 127/67 94 L 11/13/17 15:00 101 H 15 100 11/13/17 14:49 95 H 16 129/69 94 L 11/13/17 14:00 86 14 93 L 11/13/17 13:49 79 14 140/65 95 11/13/17 13:00 83 15 95 11/13/17 12:49 91 H 19 134/68 97 Intake and Output (Last 8hrs): Intake & Output 11/13/17 11/13/17 11/13/17 06:59 14:59 22:59 Intake Total 1251.9 1228.7 183.8 Output Total 940 510 130 Balance 311.9 718.7 53.8 Weight 101 lb Intake: IV 95 Intake, IV Amount 936.9 678.7 113.8 Right Distal Port 900 650 100 Internal Jugular Right Medial Port 36.9 28.7 13.8 Internal Jugular Right Proximal Port 0 Internal Jugular Oral 210 Tube Feeding 315 245 70 Output: Urine 940 510 130 Urethral (Gregory) 940 510 130 Other: # Bowel Movements 1 0 1 - Medications Active Medications: Active Medications Generic Name Dose Route Start Last Admin Trade Name Freq PRN Reason Stop Dose Admin Acetaminophen 650 mg 11/10/17 10:52 11/11/17 16:28 Tylenol 650 Mg Supp [place] 650 mg Q6 PRN Administration Fever >100.4 F Albuterol/Ipratropium 3 ml 11/10/17 14:00 11/13/17 13:45 Duoneb 3 Mg/0.5 Mg (3 Ml) Ud INH 3 ml RQ6 JUDY Administration Diltiazem HCl 30 mg 11/10/17 18:00 11/13/17 13:23 Cardizem PO 30 mg QID JUDY Administration Famotidine 20 mg 11/12/17 10:15 11/13/17 09:08 Pepcid IVP 20 mg DAILY JUDY Administration Heparin Sodium (Porcine) 5,000 units 11/10/17 06:00 11/13/17 13:23 Heparin SC 5,000 units Q8 JUDY Administration Aztreonam 1 gm/ Sodium 100 mls @ 200 mls/hr 11/10/17 09:30 11/13/17 09:09 Chloride IVPB 200 mls/hr Q8H JUDY Administration Protocol Propofol 1,000 mg in 100 mls @ 1.388 mls/hr 11/10/17 09:16 11/13/17 14:45 Diprivan IV 35 mcg/kg/min .Q24H PRN 9.716 mls/hr TITRATE PER MD ORDER Titration Protocol 5 MCG/KG/MIN Vancomycin/Sodium Chloride 1 gm in 200 mls @ 133.333 mls/hr 11/10/17 13:30 12:43 Vancomycin 1 Gm/Ns 200 Ml IVPB 11/15/17 13:31 133.333 mls/hr Q24H JUDY Administration Protocol Fluconazole 50 mls @ 100 mls/hr 11/12/17 13:00 11/13/17 09:08 Diflucan Iv 100 Mg/50 Ml Ns IVPB 100 mls/hr DAILY JUDY Administration Protocol Insulin Human Regular 0 unit 04/14/18 18:00 11/13/17 11:45 Novolin R SC 4 unit Q6H JUDY Administration Protocol Lorazepam 1 mg 11/13/17 16:06 Ativan IVP Q3H PRN Anxiety Metoprolol Tartrate 75 mg 11/10/17 07:00 11/13/17 06:09 Lopressor PEG 75 mg Q12H JUDY Administration Mupirocin 0 gm 11/12/17 10:15 11/13/17 09:08 Bactroban Ointment TOP 1 applic BID JUDY Administration Nystatin 0 gm 11/12/17 14:00 11/13/17 13:24 Nystop Topical Powder TOP 1 applic TID JUDY Administration - Patient Studies Lab Studies: Microbiology Studies 11/11/17 17:00 Gram Stain - Final Trachasp Sputum Culture - Final Staphylococcus Aureus 11/10/17 Unknown Gram Stain - Final Peg Site Wound Culture - Final Klebsiella Pneumoniae Ssp Pneu Yamile Albicans 11/09/17 21:00 Blood Culture - Preliminary Blood NO GROWTH AFTER 3 DAYS 11/09/17 21:30 Blood Culture - Preliminary Blood NO GROWTH AFTER 3 DAYS 11/11/17 16:45 Blood Culture - Preliminary Blood-Thru Central Line NO GROWTH AFTER 24 HOURS 11/11/17 17:00 Blood Culture - Preliminary Blood-Thru Central Line NO GROWTH AFTER 24 HOURS 11/11/17 Unknown Urine Culture - Final Urine,Gregory No Growth (<1,000 CFU/ML) Lab Studies 11/13/17 11/13/17 11/13/17 Range/Units 11:37 06:14 06:12 WBC 6.2 (4.8-10.8) K/uL RBC 2.65 L (3.80-5.20) Mil/uL Hgb 8.3 L (11.0-16.0) g/dL Hct 24.3 L (34.0-47.0) % MCV 91.6 (81.0-99.0) fL MCH 31.3 H (27.0-31.0) pg MCHC 34.2 (33.0-37.0) g/dL RDW 13.1 (11.5-14.5) % Plt Count 225 (130-400) K/uL MPV 8.3 (7.2-11.7) fL Neut % (Auto) 73.3 (50.0-75.0) % Lymph % (Auto) 17.4 L (20.0-40.0) % Banner % (Auto) 7.9 (0.0-10.0) % Eos % (Auto) 1.0 (0.0-4.0) % Baso % (Auto) 0.4 (0.0-2.0) % Neut # (Auto) 4.5 (1.8-7.0) K/uL Lymph # (Auto) 1.1 (1.0-4.3) K/uL Banner # (Auto) 0.5 (0.0-0.8) K/uL Eos # (Auto) 0.1 (0.0-0.7) K/uL Baso # (Auto) 0.0 (0.0-0.2) K/uL Puncture Site pCO2 (35-45) mm/Hg pO2 (80-100) mm/Hg HCO3 (21-28) mmol/L ABG pH (7.35-7.45) ABG Total CO2 (22-28) mmol/L ABG O2 Saturation (95-98) % ABG Base Excess (-2.0-3.0) mmol/L ABG Hemoglobin (11.7-17.4) g/dL ABG Carboxyhemoglobin (0.5-1.5) % POC ABG HHb (Measured) (0.0-5.0) % ABG Methemoglobin (0.0-3.0) % Scout Test A-a O2 Difference mm/Hg Respiratory Index Hgb O2 Saturation (95.0-98.0) % Vent Mode Mechanical Rate FiO2 % Tidal Volume PEEP Sodium 141 (132-148) mmol/L Potassium 3.7 (3.6-5.2) mmol/L Chloride 108 H (98-107) mmol/L Carbon Dioxide 23 (22-30) mmol/L Anion Gap 13 (10-20) BUN 12 (7-17) mg/dL Creatinine 0.6 L (0.7-1.2) mg/dL Est GFR ( Amer) > 60 Est GFR (Non-Af Amer) > 60 POC Glucose (mg/dL) 221 H (65-110) mg/dL Random Glucose 124 H (65-105) mg/dL Calcium 7.7 L (8.6-10.4) mg/dl Phosphorus 1.8 L (2.5-4.5) mg/dL Magnesium 2.1 (1.6-2.3) mg/dL Total Bilirubin 0.2 (0.2-1.3) mg/dL AST 78 H D (14-36) U/L ALT 43 (9-52) U/L Alkaline Phosphatase 56 (38-126) U/L Total Creatine Kinase 80 (30-135) U/L CK-MB (Mass) 0.47 (0.0-3.38) ng/mL Troponin I 0.0400 (0.00-0.120) ng/mL Total Protein 6.1 L (6.3-8.3) g/dL Albumin 2.7 L (3.5-5.0) g/dL Globulin 3.4 (2.2-3.9) gm/dL Albumin/Globulin Ratio 0.8 L (1.0-2.1) 11/13/17 11/13/17 11/13/17 Range/Units 04:59 04:40 00:26 WBC (4.8-10.8) K/uL RBC (3.80-5.20) Mil/uL Hgb (11.0-16.0) g/dL Hct (34.0-47.0) % MCV (81.0-99.0) fL MCH (27.0-31.0) pg MCHC (33.0-37.0) g/dL RDW (11.5-14.5) % Plt Count (130-400) K/uL MPV (7.2-11.7) fL Neut % (Auto) (50.0-75.0) % Lymph % (Auto) (20.0-40.0) % Banner % (Auto) (0.0-10.0) % Eos % (Auto) (0.0-4.0) % Baso % (Auto) (0.0-2.0) % Neut # (Auto) (1.8-7.0) K/uL Lymph # (Auto) (1.0-4.3) K/uL Banner # (Auto) (0.0-0.8) K/uL Eos # (Auto) (0.0-0.7) K/uL Baso # (Auto) (0.0-0.2) K/uL Puncture Site Rr pCO2 36 (35-45) mm/Hg pO2 174 H (80-100) mm/Hg HCO3 22.8 (21-28) mmol/L ABG pH 7.39 (7.35-7.45) ABG Total CO2 22.9 (22-28) mmol/L ABG O2 Saturation 99.5 H (95-98) % ABG Base Excess -2.8 L (-2.0-3.0) mmol/L ABG Hemoglobin 8.4 L (11.7-17.4) g/dL ABG Carboxyhemoglobin 1.4 (0.5-1.5) % POC ABG HHb (Measured) 0.5 (0.0-5.0) % ABG Methemoglobin 1.2 (0.0-3.0) % Scout Test Pos A-a O2 Difference 66.0 mm/Hg Respiratory Index 0.4 Hgb O2 Saturation 97.0 (95.0-98.0) % Vent Mode Prvc Mechanical Rate 14 FiO2 40.0 % Tidal Volume 400 PEEP 5 Sodium (132-148) mmol/L Potassium (3.6-5.2) mmol/L Chloride (98-107) mmol/L Carbon Dioxide (22-30) mmol/L Anion Gap (10-20) BUN (7-17) mg/dL Creatinine (0.7-1.2) mg/dL Est GFR ( Amer) Est GFR (Non-Af Amer) POC Glucose (mg/dL) 140 H 214 H (65-110) mg/dL Random Glucose (65-105) mg/dL Calcium (8.6-10.4) mg/dl Phosphorus (2.5-4.5) mg/dL Magnesium (1.6-2.3) mg/dL Total Bilirubin (0.2-1.3) mg/dL AST (14-36) U/L ALT (9-52) U/L Alkaline Phosphatase (38-126) U/L Total Creatine Kinase (30-135) U/L CK-MB (Mass) (0.0-3.38) ng/mL Troponin I (0.00-0.120) ng/mL Total Protein (6.3-8.3) g/dL Albumin (3.5-5.0) g/dL Globulin (2.2-3.9) gm/dL Albumin/Globulin Ratio (1.0-2.1) / Range/Units 18:01 WBC (4.8-10.8) K/uL RBC (3.80-5.20) Mil/uL Hgb (11.0-16.0) g/dL Hct (34.0-47.0) % MCV (81.0-99.0) fL MCH (27.0-31.0) pg MCHC (33.0-37.0) g/dL RDW (11.5-14.5) % Plt Count (130-400) K/uL MPV (7.2-11.7) fL Neut % (Auto) (50.0-75.0) % Lymph % (Auto) (20.0-40.0) % Banner % (Auto) (0.0-10.0) % Eos % (Auto) (0.0-4.0) % Baso % (Auto) (0.0-2.0) % Neut # (Auto) (1.8-7.0) K/uL Lymph # (Auto) (1.0-4.3) K/uL Banner # (Auto) (0.0-0.8) K/uL Eos # (Auto) (0.0-0.7) K/uL Baso # (Auto) (0.0-0.2) K/uL Puncture Site pCO2 (35-45) mm/Hg pO2 (80-100) mm/Hg HCO3 (21-28) mmol/L ABG pH (7.35-7.45) ABG Total CO2 (22-28) mmol/L ABG O2 Saturation (95-98) % ABG Base Excess (-2.0-3.0) mmol/L ABG Hemoglobin (11.7-17.4) g/dL ABG Carboxyhemoglobin (0.5-1.5) % POC ABG HHb (Measured) (0.0-5.0) % ABG Methemoglobin (0.0-3.0) % Scout Test A-a O2 Difference mm/Hg Respiratory Index Hgb O2 Saturation (95.0-98.0) % Vent Mode Mechanical Rate FiO2 % Tidal Volume PEEP Sodium (132-148) mmol/L Potassium (3.6-5.2) mmol/L Chloride (98-107) mmol/L Carbon Dioxide (22-30) mmol/L Anion Gap (10-20) BUN (7-17) mg/dL Creatinine (0.7-1.2) mg/dL Est GFR ( Amer) Est GFR (Non-Af Amer) POC Glucose (mg/dL) 184 H (65-110) mg/dL Random Glucose (65-105) mg/dL Calcium (8.6-10.4) mg/dl Phosphorus (2.5-4.5) mg/dL Magnesium (1.6-2.3) mg/dL Total Bilirubin (0.2-1.3) mg/dL AST (14-36) U/L ALT (9-52) U/L Alkaline Phosphatase (38-126) U/L Total Creatine Kinase (30-135) U/L CK-MB (Mass) (0.0-3.38) ng/mL Troponin I (0.00-0.120) ng/mL Total Protein (6.3-8.3) g/dL Albumin (3.5-5.0) g/dL Globulin (2.2-3.9) gm/dL Albumin/Globulin Ratio (1.0-2.1) Laboratory Results - last 24 hr 11/12/17 11/13/17 11/13/17 18:01 00:26 04:40 WBC RBC Hgb Hct MCV MCH MCHC RDW Plt Count MPV Neut % (Auto) Lymph % (Auto) Banner % (Auto) Eos % (Auto) Baso % (Auto) Neut # (Auto) Lymph # (Auto) Banner # (Auto) Eos # (Auto) Baso # (Auto) Puncture Site pCO2 pO2 HCO3 ABG pH ABG Total CO2 ABG O2 Saturation ABG Base Excess ABG Hemoglobin ABG Carboxyhemoglobin POC ABG HHb (Measured) ABG Methemoglobin Scout Test A-a O2 Difference Respiratory Index Hgb O2 Saturation Vent Mode Mechanical Rate FiO2 Tidal Volume PEEP Sodium Potassium Chloride Carbon Dioxide Anion Gap BUN Creatinine Est GFR ( Amer) Est GFR (Non-Af Amer) POC Glucose (mg/dL) 184 H 214 H 140 H Random Glucose Calcium Phosphorus Magnesium Total Bilirubin AST ALT Alkaline Phosphatase Total Creatine Kinase CK-MB (Mass) Troponin I Total Protein Albumin Globulin Albumin/Globulin Ratio 11/13/17 11/13/17 11/13/17 04:59 06:12 06:14 WBC 6.2 RBC 2.65 L Hgb 8.3 L Hct 24.3 L MCV 91.6 MCH 31.3 H MCHC 34.2 RDW 13.1 Plt Count 225 MPV 8.3 Neut % (Auto) 73.3 Lymph % (Auto) 17.4 L Banner % (Auto) 7.9 Eos % (Auto) 1.0 Baso % (Auto) 0.4 Neut # (Auto) 4.5 Lymph # (Auto) 1.1 Banner # (Auto) 0.5 Eos # (Auto) 0.1 Baso # (Auto) 0.0 Puncture Site Rr pCO2 36 pO2 174 H HCO3 22.8 ABG pH 7.39 ABG Total CO2 22.9 ABG O2 Saturation 99.5 H ABG Base Excess -2.8 L ABG Hemoglobin 8.4 L ABG Carboxyhemoglobin 1.4 POC ABG HHb (Measured) 0.5 ABG Methemoglobin 1.2 Scout Test Pos A-a O2 Difference 66.0 Respiratory Index 0.4 Hgb O2 Saturation 97.0 Vent Mode Prvc Mechanical Rate 14 FiO2 40.0 Tidal Volume 400 PEEP 5 Sodium 141 Potassium 3.7 Chloride 108 H Carbon Dioxide 23 Anion Gap 13 BUN 12 Creatinine 0.6 L Est GFR ( Amer) > 60 Est GFR (Non-Af Amer) > 60 POC Glucose (mg/dL) Random Glucose 124 H Calcium 7.7 L Phosphorus 1.8 L Magnesium 2.1 Total Bilirubin 0.2 AST 78 H D ALT 43 Alkaline Phosphatase 56 Total Creatine Kinase 80 CK-MB (Mass) 0.47 Troponin I 0.0400 Total Protein 6.1 L Albumin 2.7 L Globulin 3.4 Albumin/Globulin Ratio 0.8 L 11/13/17 11:37 WBC RBC Hgb Hct MCV MCH MCHC RDW Plt Count MPV Neut % (Auto) Lymph % (Auto) Banner % (Auto) Eos % (Auto) Baso % (Auto) Neut # (Auto) Lymph # (Auto) Banner # (Auto) Eos # (Auto) Baso # (Auto) Puncture Site pCO2 pO2 HCO3 ABG pH ABG Total CO2 ABG O2 Saturation ABG Base Excess ABG Hemoglobin ABG Carboxyhemoglobin POC ABG HHb (Measured) ABG Methemoglobin Scout Test A-a O2 Difference Respiratory Index Hgb O2 Saturation Vent Mode Mechanical Rate FiO2 Tidal Volume PEEP Sodium Potassium Chloride Carbon Dioxide Anion Gap BUN Creatinine Est GFR ( Amer) Est GFR (Non-Af Amer) POC Glucose (mg/dL) 221 H Random Glucose Calcium Phosphorus Magnesium Total Bilirubin AST ALT Alkaline Phosphatase Total Creatine Kinase CK-MB (Mass) Troponin I Total Protein Albumin Globulin Albumin/Globulin Ratio Critical Care Progress Note - Nutrition Nutrition: Nutrition Category Date Time Status NPO Diet [DIET] Diets 11/09/17 Breakfast Active Attending/Attestation - Attestation I have personally seen and examined this patient.: Yes I have fully participated in the care of the patient.: Yes I have reviewed all pertinent clinical information: Yes Notes (Text): 11/13/17 16:11 patient seen and examined in the intensive care unit. Case discussed with house staff in the morning rounds. Patient tolerated CPAP for 2 hours and then became tachypneic Continue steroids and nebulizer treatment Continue antibiotics Continue weaning
[2017-11-13] MEDS: Vancomycin 1 gm/NS 200 ml 1 GM/200 ML BAG IVPB SCH (12:43)
--- NOTE | 2017-11-13 12:54 | CP.PCM.CON ---
History of Present Illness - History of Present Illness History of Present Illness: Palliative consult requested by Doctor Shukri for goals of care discussion Patient is a 87 yo lady, known to me from previous multiple admissions. Patient was transferred from [place] where she was found to be lethargc and with elevated blood sugar. On admission to ED patient underwent severe acute respiratory distress and was intubated and transferred to ICU for further care. Patient was found to have sputum infection, Gram + Cocci and Staph. IV antibiotics initialed. PMH: recent pneumonia, anxiety, CAD, multiple MIs, dysphagia, PEG. Soc. Hx: , [place] resident, has a daughter who is very close to her Fam. Hx; unobtainable from the patient. Review of Systems - Review of Systems All systems: reviewed and no additional remarkable complaints except Review of Systems: ROS obtained from nursing. Per nursing, patient remained on FiO2 100 % Past Patient History - Infectious Disease Hx of Infectious Diseases: None - Past Medical History & Family History Past Medical History?: Yes - Past Social History Smoking Status: Unknown If Ever Smoked - CARDIAC Hx Cardia Arrhythmia: Yes Hx Congestive Heart Failure: Yes Hx Hypercholesterolemia: Yes Hx Hypertension: Yes Hx Pacemaker: Yes - PULMONARY Hx Bronchitis: Yes Hx Chronic Obstructive Pulmonary Disease (COPD): Yes Hx Pneumonia: Yes - NEUROLOGICAL Hx Seizures: No - HEENT Hx HEENT Problems: Yes Hx Cataracts: Yes (2000 Rt.Eye,2009Left Eye) - RENAL Hx Chronic Kidney Disease: No - ENDOCRINE/METABOLIC Hx Diabetes Mellitus Type 2: Yes - HEMATOLOGICAL/ONCOLOGICAL Hx Human Immunodeficiency Virus (HIV): No - INTEGUMENTARY Hx Dermatological Problems: No - MUSCULOSKELETAL/RHEUMATOLOGICAL Hx Falls: Yes - GASTROINTESTINAL Hx Gastrointestinal Disorders: Yes Hx Colitis: Yes Hx Gastroesophageal Reflux: Yes HX Swallowing Problems: Yes (Achalasia. 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) Hx Coronary Stent: Yes - ANESTHESIA Hx Anesthesia: Yes Hx Anesthesia Reactions: No Hx Malignant Hyperthermia: No Meds Allergies/Adverse Reactions: Allergies Allergy/AdvReac Type Severity Reaction Status Date / Time azithromycin [From Zithromax] Allergy Verified 11/09/17 20:54 ciprofloxacin HCl Allergy Verified 11/09/17 20:54 [From Cipro] diphenhydramine HCl Allergy Verified 11/09/17 20:54 [From Benadryl] fish oil Allergy Verified 11/09/17 20:54 iodine Allergy Verified 11/09/17 20:54 losartan potassium Allergy Verified 11/09/17 20:54 [From Cozaar] metronidazole [From Flagyl] Allergy Verified 11/09/17 20:54 nitroglycerin Allergy Verified 11/09/17 20:54 Penicillins Allergy Verified 11/09/17 20:54 sulfamethoxazole Allergy Verified 11/09/17 20:54 [From Bactrim] trimethoprim [From Bactrim] Allergy Verified 11/09/17 20:54 zolpidem Allergy Verified 11/09/17 20:54 clopidogrel bisulfate AdvReac Verified 11/09/17 20:54 [From Plavix] - Medications Medications: Current Medications Acetaminophen (Tylenol 650 Mg Supp) [address] Q6 PRN PRN Reason: Fever >100.4 F Last Admin: 11/11/17 16:28 Dose: 650 mg Albuterol/Ipratropium (Duoneb 3 Mg/0.5 Mg (3 Ml) Ud) 3 ml INH RQ6 [facility] Last Admin: 11/13/17 07:34 Dose: 3 ml Diltiazem HCl (Cardizem) 30 mg PO QID [facility] Last Admin: 11/13/17 09:08 Dose: 30 mg Famotidine (Pepcid) 20 mg IVP DAILY [facility] Last Admin: 11/13/17 09:08 Dose: 20 mg Heparin Sodium (Porcine) (Heparin) 5,000 units SC Q8 [facility] Last Admin: 11/13/17 05:18 Dose: 5,000 units Sodium Chloride (Sodium Chloride 0.9%) 1,000 mls @ 100 mls/hr IV .Q10H [facility] Last Admin: 11/13/17 07:46 Dose: Not Given Aztreonam 1 gm/ Sodium (Chloride) 100 mls @ 200 mls/hr IVPB Q8H [facility] PRN Reason: Protocol Last Admin: 11/13/17 09:09 Dose: 200 mls/hr Propofol (Diprivan) 1,000 mg in 100 mls @ 1.388 mls/hr IV .Q24H PRN; Protocol; 5 MCG/KG/MIN PRN Reason: TITRATE PER MD ORDER Last Admin: 11/13/17 09:10 Dose: 15 mcg/kg/min, 4.164 mls/hr Vancomycin/Sodium Chloride (Vancomycin 1 Gm/Ns 200 Ml) 1 gm in 200 mls @ 133.333 mls/hr IVPB Q24H [facility] PRN Reason: Protocol Stop: 11/15/17 13:31 Last Admin: 11/13/17 12:43 Dose: 133.333 mls/hr Fluconazole (Diflucan Iv 100 Mg/50 Ml Ns) 50 mls @ 100 mls/hr IVPB DAILY [facility] PRN Reason: Protocol Last Admin: 11/13/17 09:08 Dose: 100 mls/hr Insulin Human Regular (Novolin R) 0 unit SC Q6H [facility] PRN Reason: Protocol Last Admin: 11/13/17 11:45 Dose: 4 unit Metoprolol Tartrate (Lopressor) 75 mg PEG Q12H [facility] Last Admin: 11/13/17 06:09 Dose: 75 mg Mupirocin (Bactroban Ointment) 0 gm TOP BID [facility] Last Admin: 11/13/17 09:08 Dose: 1 applic Nystatin (Nystop Topical Powder) 0 gm TOP TID [facility] Last Admin: 11/13/17 09:08 Dose: 1 applic Physical Exam - Constitutional Appears: In Acute Distress, Chronically Ill - Head Exam Head Exam: ATRAUMATIC, NORMAL INSPECTION, NORMOCEPHALIC - Eye Exam Eye Exam: Normal appearance Pupil Exam: PERRL - ENT Exam ENT Exam: Mucous Membranes Dry Additional comments: ETT - Neck Exam Neck exam: Positive for: Normal Inspection - Respiratory Exam Respiratory Exam: Decreased Breath Sounds Additional comments: On MV support - Cardiovascular Exam Cardiovascular Exam: Tachycardia, REGULAR RHYTHM - GI/Abdominal Exam GI & Abdominal Exam: Normal Bowel Sounds Additional comments: PEG - Rectal Exam Rectal Exam: Deferred - Extremities Exam Extremities exam: Positive for: normal inspection - Back Exam Additional comments: sacral wound - Neurological Exam Neurological exam: Motor Sensory Deficit - Psychiatric Exam Psychiatric exam: Flat Affect - Skin Skin Exam: Pallor Results - Vital Signs Recent Vital Signs: Last Vital Signs Temp 98.6 F 11/13/17 12:00 Pulse 87 11/13/17 12:00 Resp 14 11/13/17 12:00 BP 132/75 11/13/17 11:49 Pulse Ox 95 11/13/17 12:00 - Labs Result Diagrams: 11/13/17 06:12 11/13/17 06:14 Labs: Laboratory Results - last 24 hr 11/12/17 11/13/17 11/13/17 18:01 00:26 04:40 WBC RBC Hgb Hct MCV MCH MCHC RDW Plt Count MPV Neut % (Auto) Lymph % (Auto) [place] % (Auto) Eos % (Auto) Baso % (Auto) Neut # (Auto) Lymph # (Auto) [place] # (Auto) Eos # (Auto) Baso # (Auto) Puncture Site pCO2 pO2 HCO3 ABG pH ABG Total CO2 ABG O2 Saturation ABG Base Excess ABG Hemoglobin ABG Carboxyhemoglobin POC ABG HHb (Measured) ABG Methemoglobin Scout Test A-a O2 Difference Respiratory Index Hgb O2 Saturation Vent Mode Mechanical Rate FiO2 Tidal Volume PEEP Sodium Potassium Chloride Carbon Dioxide Anion Gap BUN Creatinine Est GFR ( Amer) Est GFR (Non-Af Amer) POC Glucose (mg/dL) 184 H 214 H 140 H Random Glucose Calcium Phosphorus Magnesium Total Bilirubin AST ALT Alkaline Phosphatase Total Creatine Kinase CK-MB (Mass) Troponin I Total Protein Albumin Globulin Albumin/Globulin Ratio 11/13/17 11/13/17 11/13/17 04:59 06:12 06:14 WBC 6.2 RBC 2.65 L Hgb 8.3 L Hct 24.3 L MCV 91.6 MCH 31.3 H MCHC 34.2 RDW 13.1 Plt Count 225 MPV 8.3 Neut % (Auto) 73.3 Lymph % (Auto) 17.4 L [place] % (Auto) 7.9 Eos % (Auto) 1.0 Baso % (Auto) 0.4 Neut # (Auto) 4.5 Lymph # (Auto) 1.1 [place] # (Auto) 0.5 Eos # (Auto) 0.1 Baso # (Auto) 0.0 Puncture Site Rr pCO2 36 pO2 174 H HCO3 22.8 ABG pH 7.39 ABG Total CO2 22.9 ABG O2 Saturation 99.5 H ABG Base Excess -2.8 L ABG Hemoglobin 8.4 L ABG Carboxyhemoglobin 1.4 POC ABG HHb (Measured) 0.5 ABG Methemoglobin 1.2 Scout Test Pos A-a O2 Difference 66.0 Respiratory Index 0.4 Hgb O2 Saturation 97.0 Vent Mode Prvc Mechanical Rate 14 FiO2 40.0 Tidal Volume 400 PEEP 5 Sodium 141 Potassium 3.7 Chloride 108 H Carbon Dioxide 23 Anion Gap 13 BUN 12 Creatinine 0.6 L Est GFR ( Amer) > 60 Est GFR (Non-Af Amer) > 60 POC Glucose (mg/dL) Random Glucose 124 H Calcium 7.7 L Phosphorus 1.8 L Magnesium 2.1 Total Bilirubin 0.2 AST 78 H D ALT 43 Alkaline Phosphatase 56 Total Creatine Kinase 80 CK-MB (Mass) 0.47 Troponin I 0.0400 Total Protein 6.1 L Albumin 2.7 L Globulin 3.4 Albumin/Globulin Ratio 0.8 L 11/13/17 11:37 WBC RBC Hgb Hct MCV MCH MCHC RDW Plt Count MPV Neut % (Auto) Lymph % (Auto) [place] % (Auto) Eos % (Auto) Baso % (Auto) Neut # (Auto) Lymph # (Auto) [place] # (Auto) Eos # (Auto) Baso # (Auto) Puncture Site pCO2 pO2 HCO3 ABG pH ABG Total CO2 ABG O2 Saturation ABG Base Excess ABG Hemoglobin ABG Carboxyhemoglobin POC ABG HHb (Measured) ABG Methemoglobin Scout Test A-a O2 Difference Respiratory Index Hgb O2 Saturation Vent Mode Mechanical Rate FiO2 Tidal Volume PEEP Sodium Potassium Chloride Carbon Dioxide Anion Gap BUN Creatinine Est GFR ( Amer) Est GFR (Non-Af Amer) POC Glucose (mg/dL) 221 H Random Glucose Calcium Phosphorus Magnesium Total Bilirubin AST ALT Alkaline Phosphatase Total Creatine Kinase CK-MB (Mass) Troponin I Total Protein Albumin Globulin Albumin/Globulin Ratio Assessment & Plan - Assessment and Plan (Free Text) Assessment: Full Code, there is no advance directive on chart, PPS 10% I reviewed medical records, all diagnostic studies, examined patient in the bed. Patient is sedated and intubated, unresponsive to stimuli. CT head negative. Skin is pale, Hb 8.3, down from 8.7. Left buttock pressure sore, Wound care on board. FiO2 100 %, breath sounds diminished, mild secretion from the trach. CXR negative. Sputum C&S positive, IV antibiotics on board. PEG in place. There is excoriaton around PEG, Bactroban on board topically.Novolin for blood sugar control. BP 140 / 66, afebrile. K tigist to 3.7 from 2.7. Total protein and Albumin low I have seen this patient many times in the past due to her fragile health and multiple readmission. The Code status was always brought as a subject and each time patient was determined to have her life prolonged regardess of quality of life and possible suffering. Her daughter was supportive of patient. Patient has not signed any Advance Directive /POLST with me. I called patient's daughter today and left voicemail, asking for family meeting. Impression * This is acutely ill patient with very complex PMH * S/P intubation due to severe acute respiratory distress * Moderate Hypokalemia * Sputum infection * Anemia * Infected pressure sore * Patient unable to advocate for herself, has no Advance Directive and had requested Full Code in the past. Suggestion * Correct electrolyte imbalance; protein supplement to assist with wound healing ; correct Albumin * Monitor H&H * IV antibiotics for sputum and wound infection * Promote skin integrity, turn and reposition * Full Code This will be very difficult discussion about Advance Care planing as patient was always determined to undergo all possible agressive interventions to support life, regardless of quality of life issues. I will meet with daughter and revisit the same topic.
--- NOTE | 2017-11-13 16:16 | CP.PCM.PN ---
Subjective - Date & Time of Evaluation Date of Evaluation: 11/13/17 Time of Evaluation: 16:16 - Subjective Subjective: CHIEF COMPLAINTS TODAY : intubated, tmax 99.4 sedated secretions+ve thick +VE FOLYS- ROS. ON OBSERVATION. HEENT : N. Resp : No SOB wheezing, cough +VE THICK SECRETIONS. Cardio : No CP, PND orthopnea GI : No abd. Pain, n/v [employer] : No headache , focal deficit. Musculoskel : N Ext. : Pedal pulses intact, no edema or calf pain Derm : N Psych : N. PE. Pt. is awake, INTUBATED, in no distress. V.S As noted in the chart Head ,ear nose,throat and eyes : Normal. Neck : Supple with normal carotids. Lungs: B/L RHONCHI Heart : S1 & S2 normal . . No murmur. S4 + Abd : Soft non tender with normal bowel sounds. Neuro : Moves all ext. with no localized deficit. Ext : No edema with intact pulses. Neg. calf tenderness Derm : No rashes or decubitus ulcer. Radiology/Labs . SPUTUM +VE staph aureus MSSA GT-EXIT SITE SECRETIONS +VE kLEBSIELLA PNEUMONIAE/Farheen ALBICANS. LFTS N. VANCO TROUGH 14.6 OK Asssessment : SEPSIS/LEUKOCYTOSIS ACUTE RESPIRATORY FAILURE /ASPIRATION PNEUMONIA. GT-EXIT SITE DRAINAGE. dIABETES MELLITUS. CAD/S/P CABG Plan: CONTINUE iv AZACTAM 1 G EVERY 8 HOURLY. 11/09/17. CONTINUE iv VANCOMYCIN 1 G EVERY 24 HOURLY. 11/10/17. ON iv dIFLUCAN 100 MG ONCE A DAY DAILY iv PIGGYBACK.-2DAY lOADING DOSE dIFLUCAN 200 MG GIVEN . F/U K/LFTS POTASSIUM SUPPLEMENT PER pmd. MONITOR RENAL FUNCTIONS CLOSELY. PULMONARY TOILET WEANING PER PMD. Objective - Vital Signs/Intake and Output Vital Signs (last 24 hours): Temp Pulse Resp BP Pulse Ox 99.4 F 100 H 18 127/67 95 11/13/17 16:00 11/13/17 16:00 11/13/17 16:00 11/13/17 15:49 11/13/17 16:00 Intake and Output: 11/13/17 11/13/17 06:59 18:59 Intake Total 1705.1 1412.5 Output Total 1380 640 Balance 325.1 772.5 - Medications Medications: Current Medications Acetaminophen (Tylenol 650 Mg Supp) 650 mg [place] Q6 PRN PRN Reason: Fever >100.4 F Last Admin: 11/11/17 16:28 Dose: 650 mg Albuterol/Ipratropium (Duoneb 3 Mg/0.5 Mg (3 Ml) Ud) 3 ml INH RQ6 [facility] Last Admin: 11/13/17 13:45 Dose: 3 ml Diltiazem HCl (Cardizem) 30 mg PO QID [facility] Last Admin: 11/13/17 13:23 Dose: 30 mg Famotidine (Pepcid) 20 mg IVP DAILY [facility] Last Admin: 11/13/17 09:08 Dose: 20 mg Heparin Sodium (Porcine) (Heparin) 5,000 units SC Q8 [facility] Last Admin: 11/13/17 13:23 Dose: 5,000 units Aztreonam 1 gm/ Sodium (Chloride) 100 mls @ 200 mls/hr IVPB Q8H [facility] PRN Reason: Protocol Last Admin: 11/13/17 09:09 Dose: 200 mls/hr Propofol (Diprivan) 1,000 mg in 100 mls @ 1.388 mls/hr IV .Q24H PRN; Protocol; 5 MCG/KG/MIN PRN Reason: TITRATE PER MD ORDER Last Titration: 11/13/17 14:45 Dose: 35 mcg/kg/min, 9.716 mls/hr Vancomycin/Sodium Chloride (Vancomycin 1 Gm/Ns 200 Ml) 1 gm in 200 mls @ 133.333 mls/hr IVPB Q24H [facility] PRN Reason: Protocol Stop: 11/15/17 13:31 Last Admin: 11/13/17 12:43 Dose: 133.333 mls/hr Fluconazole (Diflucan Iv 100 Mg/50 Ml Ns) 50 mls @ 100 mls/hr IVPB DAILY [facility] PRN Reason: Protocol Last Admin: 11/13/17 09:08 Dose: 100 mls/hr Insulin Human Regular (Novolin R) 0 unit SC Q6H [facility] PRN Reason: Protocol Last Admin: 11/13/17 11:45 Dose: 4 unit Lorazepam (Ativan) 1 mg IVP Q3H PRN PRN Reason: Anxiety Last Admin: 11/13/17 16:15 Dose: 1 mg Metoprolol Tartrate (Lopressor) 75 mg PEG Q12H [facility] Last Admin: 11/13/17 06:09 Dose: 75 mg Mupirocin (Bactroban Ointment) 0 gm TOP BID [facility] Last Admin: 11/13/17 09:08 Dose: 1 applic Nystatin (Nystop Topical Powder) 0 gm TOP TID [facility] Last Admin: 11/13/17 13:24 Dose: 1 applic - Labs Labs: 11/13/17 06:12 11/13/17 06:14 Assessment and Plan (1) Sepsis Status: Acute (2) Respiratory failure with hypoxia Status: Acute (3) Pneumonia Status: Acute (4) Leukocytosis Status: Acute (5) Gastrostomy tube in place Status: Acute (6) CAD (coronary artery disease) Status: Acute (7) Uncontrolled diabetes mellitus Status: Acute (8) Hx of CABG Status: Acute
--- NOTE | 2017-11-13 23:03 | CP.PCM.PN ---
Subjective - Date & Time of Evaluation Date of Evaluation: 11/13/17 Time of Evaluation: 22:14 - Subjective Subjective: pt is on vent unable to extubate no distress no new fever vitals stable labs noted spoke to pt daughter will continue current treatment Objective - Vital Signs/Intake and Output Vital Signs (last 24 hours): Temp Pulse Resp BP Pulse Ox 98.4 F 88 13 103/49 L 100 11/13/17 20:00 11/13/17 22:49 11/13/17 22:49 11/13/17 22:49 11/13/17 22:49 Intake and Output: 11/13/17 11/14/17 18:59 06:59 Intake Total 1719.9 272.0 Output Total 1000 380 Balance 719.9 -108.0 - Medications Medications: Current Medications Acetaminophen (Tylenol 650 Mg Supp) 650 mg [place] Q6 PRN PRN Reason: Fever >100.4 F Last Admin: 11/11/17 16:28 Dose: 650 mg Albuterol/Ipratropium (Duoneb 3 Mg/0.5 Mg (3 Ml) Ud) 3 ml INH RQ6 [facility] Last Admin: 11/13/17 20:22 Dose: 3 ml Diltiazem HCl (Cardizem) 30 mg PO QID [facility] Last Admin: 11/13/17 21:56 Dose: 30 mg Famotidine (Pepcid) 20 mg IVP DAILY [facility] Last Admin: 11/13/17 09:08 Dose: 20 mg Heparin Sodium (Porcine) (Heparin) 5,000 units SC Q8 [facility] Last Admin: 11/13/17 21:56 Dose: 5,000 units Aztreonam 1 gm/ Sodium (Chloride) 100 mls @ 200 mls/hr IVPB Q8H [facility] PRN Reason: Protocol Last Admin: 11/13/17 16:45 Dose: 200 mls/hr Propofol (Diprivan) 1,000 mg in 100 mls @ 1.388 mls/hr IV .Q24H PRN; Protocol; 5 MCG/KG/MIN PRN Reason: TITRATE PER MD ORDER Last Admin: 11/13/17 22:35 Dose: 20 mcg/kg/min, 5.552 mls/hr Vancomycin/Sodium Chloride (Vancomycin 1 Gm/Ns 200 Ml) 1 gm in 200 mls @ 133.333 mls/hr IVPB Q24H [facility] PRN Reason: Protocol Stop: 11/15/17 13:31 Last Admin: 11/13/17 12:43 Dose: 133.333 mls/hr Fluconazole (Diflucan Iv 100 Mg/50 Ml Ns) 50 mls @ 100 mls/hr IVPB DAILY [facility] PRN Reason: Protocol Last Admin: 11/13/17 09:08 Dose: 100 mls/hr Insulin Human Regular (Novolin R) 0 unit SC Q6H [facility] PRN Reason: Protocol Last Admin: 11/13/17 17:57 Dose: 2 unit Lorazepam (Ativan) 1 mg IVP Q3H PRN PRN Reason: Anxiety Last Admin: 11/13/17 16:15 Dose: 1 mg Metoprolol Tartrate (Lopressor) 75 mg PEG Q12H [facility] Last Admin: 11/13/17 18:00 Dose: 75 mg Mupirocin (Bactroban Ointment) 0 gm TOP BID [facility] Last Admin: 11/13/17 17:57 Dose: 1 applic Nystatin (Nystop Topical Powder) 0 gm TOP TID [facility] Last Admin: 11/13/17 17:56 Dose: 1 applic - Labs Labs: 11/13/17 06:12 11/13/17 06:14
--- NOTE | 2017-11-13 23:37 | CP.PCM.PN ---
Subjective - Date & Time of Evaluation Date of Evaluation: 11/13/17 Time of Evaluation: 13:05 - Subjective Subjective: Patient seen and evaluated No new cardiac events noted Objective - Vital Signs/Intake and Output Vital Signs (last 24 hours): Temp Pulse Resp BP Pulse Ox 98.4 F 93 H 17 103/49 L 92 L 11/13/17 20:00 11/13/17 23:00 11/13/17 23:00 11/13/17 22:49 11/13/17 23:00 Intake and Output: 11/13/17 11/14/17 18:59 06:59 Intake Total 1719.9 312.5 Output Total 1000 460 Balance 719.9 -147.5 - Medications Medications: Current Medications Acetaminophen (Tylenol 650 Mg Supp) 650 mg [place] Q6 PRN PRN Reason: Fever >100.4 F Last Admin: 11/11/17 16:28 Dose: 650 mg Albuterol/Ipratropium (Duoneb 3 Mg/0.5 Mg (3 Ml) Ud) 3 ml INH RQ6 [facility] Last Admin: 11/13/17 20:22 Dose: 3 ml Diltiazem HCl (Cardizem) 30 mg PO QID [facility] Last Admin: 11/13/17 21:56 Dose: 30 mg Famotidine (Pepcid) 20 mg IVP DAILY [facility] Last Admin: 11/13/17 09:08 Dose: 20 mg Heparin Sodium (Porcine) (Heparin) 5,000 units SC Q8 [facility] Last Admin: 11/13/17 21:56 Dose: 5,000 units Aztreonam 1 gm/ Sodium (Chloride) 100 mls @ 200 mls/hr IVPB Q8H [facility] PRN Reason: Protocol Last Admin: 11/13/17 16:45 Dose: 200 mls/hr Propofol (Diprivan) 1,000 mg in 100 mls @ 1.388 mls/hr IV .Q24H PRN; Protocol; 5 MCG/KG/MIN PRN Reason: TITRATE PER MD ORDER Last Admin: 11/13/17 22:35 Dose: 20 mcg/kg/min, 5.552 mls/hr Vancomycin/Sodium Chloride (Vancomycin 1 Gm/Ns 200 Ml) 1 gm in 200 mls @ 133.333 mls/hr IVPB Q24H [facility] PRN Reason: Protocol Stop: 11/15/17 13:31 Last Admin: 11/13/17 12:43 Dose: 133.333 mls/hr Fluconazole (Diflucan Iv 100 Mg/50 Ml Ns) 50 mls @ 100 mls/hr IVPB DAILY [facility] PRN Reason: Protocol Last Admin: 11/13/17 09:08 Dose: 100 mls/hr Insulin Human Regular (Novolin R) 0 unit SC Q6H [facility] PRN Reason: Protocol Last Admin: 11/13/17 17:57 Dose: 2 unit Lorazepam (Ativan) 1 mg IVP Q3H PRN PRN Reason: Anxiety Last Admin: 11/13/17 16:15 Dose: 1 mg Metoprolol Tartrate (Lopressor) 75 mg PEG Q12H [facility] Last Admin: 11/13/17 18:00 Dose: 75 mg Mupirocin (Bactroban Ointment) 0 gm TOP BID [facility] Last Admin: 11/13/17 17:57 Dose: 1 applic Nystatin (Nystop Topical Powder) 0 gm TOP TID [facility] Last Admin: 11/13/17 17:56 Dose: 1 applic - Labs Labs: 11/13/17 06:12 11/13/17 06:14
[2017-11-14] MEDS: Aztreonam 1 GM in Sodium Chloride 0.9% 100 ML IVPB SCH ×3 (01:11→17:54)
[2017-11-14] MEDS: Albuterol-Ipratrop 3 mg / 0.5 (3 ml) UD INH SCH ×4 (01:32→19:45)
[2017-11-14] MEDS ORDERED: Metoprolol 1 mg/ml Inj IVP ONE (01:39)
[2017-11-14 06:07] LABS: ARTERIAL BLOOD GAS HCO3 16.8 mmol/L (21-28); ARTERIAL BLOOD GAS HEMOGLOBIN 12.3 g/dL (11.7-17.4); ARTERIAL BLOOD GAS O2 SAT 98.9 % (95-98); ARTERIAL BLOOD GAS PCO2 31 mm/Hg (35-45); ARTERIAL BLOOD GAS PH 7.29 (7.35-7.45); ARTERIAL BLOOD GAS PO2 281 mm/Hg (80-100); ARTERIAL BLOOD GAS TCO2 15.9 mmol/L (22-28)
[2017-11-14] MEDS: (Novolin R) Insulin Human Regular 100 units/ml vial SC SCH ×4 (06:08→17:55)
[2017-11-14 06:14] LABS: BASO # 0.1 K/uL (0.0-0.2); BASO % 0.6 % (0.0-2.0); EOS # 0.2 K/uL (0.0-0.7); EOS % 2.3 % (0.0-4.0); HEMOGLOBIN 9.2 g/dL (11.0-16.0); LYMPH # 1.5 K/uL (1.0-4.3); LYMPH % 17.5 % (20.0-40.0); MEAN CELL VOLUME 91.2 fL (81.0-99.0); MEAN CORPUSCULAR HEMOGLOBIN 32.4 pg (27.0-31.0); MEAN CORPUSCULAR HGB CONC 35.5 g/dL (33.0-37.0); MONO # 1.1 K/uL (0.0-0.8); MONO % 13.1 % (0.0-10.0); NEUT # 5.8 K/uL (1.8-7.0); NEUT % 66.5 % (50.0-75.0); NRBC % 0.1 % (0.0-2.0); PLATELET COUNT 262 K/uL (130-400); RBC 2.84 Mil/uL (3.80-5.20); RED CELL DISTRIBUTION WIDTH 13.1 % (11.5-14.5); WHITE BLOOD COUNT 8.7 K/uL (4.8-10.8)
[2017-11-14 06:40] LABS: ALB/GLOB RATIO 0.9 (1.0-2.1); ALT/SGPT 63 U/L (9-52); AST/SGOT 74 U/L (14-36); BLOOD UREA NITROGEN 10 mg/dL (7-17); CALCIUM 8.2 mg/dl (8.6-10.4); GFR AFRICAN-AMERICAN > 60; GFR NON-AFRICAN AMERICAN > 60
[2017-11-14] MEDS ORDERED: Magnesium Sulfate 1 gm in D5W 1 GM/100 ML BAG IVPB ONE (08:00)
--- NOTE | 2017-11-14 08:42 | RAD ---
PROCEDURE: CHEST RADIOGRAPH, 1 VIEW HISTORY: R/o Pneumonia COMPARISON: None available. FINDINGS: LUNGS: Low lung volumes. Stable chronic prominence of the bilateral interstitial markings with superimposed pulmonary vascular congestion outside. Bibasilar atelectasis. PLEURA: No pneumothorax or pleural fluid seen. CARDIOVASCULAR: Left subclavian access pacemaker redemonstrated. Prior sternotomy with sternal wires and surgical clips redemonstrated. Atherosclerotic aortic calcifications. Cardiomediastinal silhouette within normal limits. OSSEOUS STRUCTURES: Unchanged. VISUALIZED UPPER ABDOMEN: Normal. OTHER FINDINGS: Right internal jugular access central venous catheter, unchanged. Endotracheal tube, unchanged. . IMPRESSION: Low lung volumes. Bibasilar atelectasis. Stable tubes and lines. No significant interval change.
[2017-11-14] MEDS: Nystatin 100,000 Units/gm Topical Pow(15 gm) TOP SCH ×3 (09:04→17:55)
[2017-11-14 09:19] LABS: ANISOCYTOSIS SLIGHT; BANDS 2 % (0-2); BASOPHIL 1 % (0-2); EOSINOPHIL 1 % (0-4); HYPOCHROMIC SLIGHT; LYMPHOCYTE 15 % (20-40); MONOCYTE 7 % (0-10); MYELOCYTE 4 % (0-0); NEUTROPHIL 70 % (50-75); PLATELET ESTIMATE NORMAL (NORMAL); POIKILOCYTOSIS SLIGHT; TOTAL CELLS COUNTED 100
[2017-11-14 09:22] LABS: POLYCHROMIC SLIGHT; TARGET CELLS SLIGHT
[2017-11-14] MEDS: Propofol 10 mg/ml 1,000 MG/100 ML VIAL IV PRN ×2 (09:22→23:09)
[2017-11-14] MEDS ORDERED: Potassium & Sodium Phosphate PEG ONE (10:30)
[2017-11-14] MEDS: Fluconazole IV 100mg/50 ml NS 50 ML IVPB SCH (10:41)
--- NOTE | 2017-11-14 11:05 | CP.CCUPN ---
<Henry Lee S - Last Filed: 11/14/17 10:59> CCU Subjective - Physician Review Subjective (Free Text): 11/12/17 18:43 Patient seen and examined. Patient is intubated and sedated. Failed CPAP trial this morning. 11/13/17 12:40 Patient seen and examined. Intubated and sedated. Tolerated CPAP for almost two hours today however was breathing rapidly soon after. 11/14/17 10:59 Patient seen and examined. She is intubated and sedated. Patient was unable to tolerate CPAP trial today. CCU Objective - Vital Signs / Intake & Output Vital Signs (Last 4 hours): Vital Signs Temp Pulse Resp BP Pulse Ox 11/14/17 10:15 86 14 176/92 H 92 L 11/14/17 10:00 82 14 100 11/14/17 09:02 79 14 161/68 H 98 11/14/17 09:01 83 18 153/68 H 11/14/17 09:00 83 14 156/70 H 100 11/14/17 08:59 82 14 134/65 100 11/14/17 08:58 82 14 113/62 100 11/14/17 08:49 83 14 138/65 100 11/14/17 08:00 98.2 F 90 14 96 11/14/17 07:49 90 14 95/41 L 100 11/14/17 07:45 137/59 L 11/14/17 07:00 92 H 14 100 Intake and Output (Last 8hrs): Intake & Output 11/13/17 11/14/17 11/14/17 22:59 06:59 14:59 Intake Total 763.2 539.7 728.9 Output Total 740 790 230 Balance 23.2 -250.3 498.9 Weight 101 lb 10.13 oz Intake: IV 45 74.3 55.7 Intake, IV Amount 248.2 185.4 333.2 Right Distal Port 200 100 300 Internal Jugular Right Medial Port 48.2 85.4 33.2 Internal Jugular Oral 100 200 Tube Feeding 280 280 140 Other 90 Output: Urine 740 790 230 Urethral (Gregory) 740 790 230 Other: # Bowel Movements 1 0 - Physical Exam Head: Positive for: Atraumatic, Normocephalic Pupils: Positive for: PERRL Conjunctiva: Positive for: Normal Mouth: Positive for: Dry Respiratory/Chest: Positive for: Decreased Breath Sounds, Other (vented) Cardiovascular: Positive for: Normal S1, S2, Tachycardic Abdomen: Positive for: Distention, Normal Bowel Sounds, Feeding Tubes (PEG tube) , Other (excoriations around PEG tube) Upper Extremity: Positive for: Normal Inspection Lower Extremity: Positive for: Normal Inspection Skin: Positive for: Warm, Dry Psychiatric: Positive for: Other (intubated/sedated) - Medications Active Medications: Active Medications Generic Name Dose Route Start Last Admin Trade Name Freq PRN Reason Stop Dose Admin Acetaminophen 650 mg 11/10/17 10:52 11/11/17 16:28 Tylenol 650 Mg Supp SD 650 mg Q6 PRN Administration Fever >100.4 F Albuterol/Ipratropium 3 ml 11/10/17 14:00 11/14/17 08:16 Duoneb 3 Mg/0.5 Mg (3 Ml) Ud INH 3 ml RQ6 JUDY Administration Diltiazem HCl 30 mg 11/10/17 18:00 11/14/17 09:03 Cardizem PO 30 mg QID JUDY Administration Famotidine 20 mg 11/12/17 10:15 11/14/17 09:21 Pepcid IVP 20 mg DAILY JUDY Administration Heparin Sodium (Porcine) 5,000 units 11/10/17 06:00 11/14/17 05:04 Heparin SC 5,000 units Q8 JUDY Administration Aztreonam 1 gm/ Sodium 100 mls @ 200 mls/hr 11/10/17 09:30 11/14/17 08:52 Chloride IVPB 200 mls/hr Q8H JUDY Administration Protocol Propofol 1,000 mg in 100 mls @ 1.388 mls/hr 11/10/17 09:16 11/14/17 10:12 Diprivan IV 20 mcg/kg/min .Q24H PRN 5.552 mls/hr TITRATE PER MD ORDER Titration Protocol 5 MCG/KG/MIN Vancomycin/Sodium Chloride 1 gm in 200 mls @ 133.333 mls/hr 11/10/17 13:30 12:43 Vancomycin 1 Gm/Ns 200 Ml IVPB 11/15/17 13:31 133.333 mls/hr Q24H JUDY Administration Protocol Fluconazole 50 mls @ 100 mls/hr 11/12/17 13:00 11/14/17 10:41 Diflucan Iv 100 Mg/50 Ml Ns IVPB 100 mls/hr DAILY JUDY Administration Protocol Insulin Human Regular 0 unit 11/10/17 18:00 11/14/17 06:08 Novolin R SC 4 unit Q6H JUDY Administration Protocol Lorazepam 1 mg 11/13/17 16:06 11/14/17 00:10 Ativan IVP 1 mg Q3H PRN Administration Anxiety Metoprolol Tartrate 75 mg 11/10/17 07:00 11/14/17 07:45 Lopressor PEG 75 mg Q12H JUDY Administration Mupirocin 0 gm 11/12/17 10:15 11/14/17 09:04 Bactroban Ointment TOP 1 applic BID JUDY Administration Nystatin 0 gm 11/12/17 14:00 11/14/17 09:04 Nystop Topical Powder TOP 1 applic TID JUDY Administration - Patient Studies Lab Studies: Microbiology Studies 11/09/17 21:00 Blood Culture - Preliminary Blood NO GROWTH AFTER 4 DAYS 11/09/17 21:30 Blood Culture - Preliminary Blood NO GROWTH AFTER 4 DAYS 11/11/17 16:45 Blood Culture - Preliminary Blood-Thru Central Line NO GROWTH AFTER 48 HOURS 11/11/17 17:00 Blood Culture - Preliminary Blood-Thru Central Line NO GROWTH AFTER 48 HOURS 11/11/17 17:00 Gram Stain - Final Trachasp Sputum Culture - Final Staphylococcus Aureus 11/10/17 Unknown Gram Stain - Final Peg Site Wound Culture - Final Klebsiella Pneumoniae Ssp Pneu Yamile Albicans Lab Studies 11/14/17 11/14/17 11/14/17 Range/Units 06:04 06:04 06:04 WBC 8.7 (4.8-10.8) K/uL RBC 2.84 L (3.80-5.20) Mil/uL Hgb 9.2 L (11.0-16.0) g/dL Hct 25.9 L (34.0-47.0) % MCV 91.2 (81.0-99.0) fL MCH 32.4 H (27.0-31.0) pg MCHC 35.5 (33.0-37.0) g/dL RDW 13.1 (11.5-14.5) % Plt Count 262 (130-400) K/uL MPV 8.0 (7.2-11.7) fL Neut % (Auto) 66.5 (50.0-75.0) % Lymph % (Auto) 17.5 L (20.0-40.0) % [place] % (Auto) 13.1 H (0.0-10.0) % Eos % (Auto) 2.3 (0.0-4.0) % Baso % (Auto) 0.6 (0.0-2.0) % Neut # (Auto) 5.8 (1.8-7.0) K/uL Lymph # (Auto) 1.5 (1.0-4.3) K/uL [place] # (Auto) 1.1 H (0.0-0.8) K/uL Eos # (Auto) 0.2 (0.0-0.7) K/uL Baso # (Auto) 0.1 (0.0-0.2) K/uL Neutrophils % (Manual) 70 (50-75) % Band Neutrophils % 2 (0-2) % Lymphocytes % (Manual) 15 L (20-40) % Monocytes % (Manual) 7 (0-10) % Eosinophils % (Manual) 1 (0-4) % Basophils % (Manual) 1 (0-2) % Myelocytes % 4 H (0-0) % Platelet Estimate Normal (NORMAL) Polychromasia Slight Hypochromasia (manual) Slight Poikilocytosis (manual Slight Anisocytosis (manual) Slight Target Cells Slight Puncture Site pCO2 (35-45) mm/Hg pO2 (80-100) mm/Hg HCO3 (21-28) mmol/L ABG pH (7.35-7.45) ABG Total CO2 (22-28) mmol/L ABG O2 Saturation (95-98) % ABG Base Excess (-2.0-3.0) mmol/L ABG Hemoglobin (11.7-17.4) g/dL ABG Carboxyhemoglobin (0.5-1.5) % POC ABG HHb (Measured) (0.0-5.0) % ABG Methemoglobin (0.0-3.0) % Scout Test A-a O2 Difference mm/Hg Respiratory Index Hgb O2 Saturation (95.0-98.0) % Vent Mode Mechanical Rate FiO2 % Tidal Volume PEEP Sodium 142 (132-148) mmol/L Potassium 3.4 L (3.6-5.2) mmol/L Chloride 104 (98-107) mmol/L Carbon Dioxide 24 (22-30) mmol/L Anion Gap 17 (10-20) BUN 10 (7-17) mg/dL Creatinine 0.6 L (0.7-1.2) mg/dL Est GFR ( Amer) > 60 Est GFR (Non-Af Amer) > 60 POC Glucose (mg/dL) 239 H (65-110) mg/dL Random Glucose 202 H (65-105) mg/dL Calcium 8.2 L (8.6-10.4) mg/dl Phosphorus 2.3 L (2.5-4.5) mg/dL Magnesium 1.7 (1.6-2.3) mg/dL Total Bilirubin 0.4 (0.2-1.3) mg/dL AST 74 H (14-36) U/L ALT 63 H D (9-52) U/L Alkaline Phosphatase 70 (38-126) U/L Total Protein 6.5 (6.3-8.3) g/dL Albumin 3.0 L (3.5-5.0) g/dL Globulin 3.5 (2.2-3.9) gm/dL Albumin/Globulin Ratio 0.9 L (1.0-2.1) 11/14/17 11/13/17 11/13/17 Range/Units 05:19 23:49 17:39 WBC (4.8-10.8) K/uL RBC (3.80-5.20) Mil/uL Hgb (11.0-16.0) g/dL Hct (34.0-47.0) % MCV (81.0-99.0) fL MCH (27.0-31.0) pg MCHC (33.0-37.0) g/dL RDW (11.5-14.5) % Plt Count (130-400) K/uL MPV (7.2-11.7) fL Neut % (Auto) (50.0-75.0) % Lymph % (Auto) (20.0-40.0) % [place] % (Auto) (0.0-10.0) % Eos % (Auto) (0.0-4.0) % Baso % (Auto) (0.0-2.0) % Neut # (Auto) (1.8-7.0) K/uL Lymph # (Auto) (1.0-4.3) K/uL [place] # (Auto) (0.0-0.8) K/uL Eos # (Auto) (0.0-0.7) K/uL Baso # (Auto) (0.0-0.2) K/uL Neutrophils % (Manual) (50-75) % Band Neutrophils % (0-2) % Lymphocytes % (Manual) (20-40) % Monocytes % (Manual) (0-10) % Eosinophils % (Manual) (0-4) % Basophils % (Manual) (0-2) % Myelocytes % (0-0) % Platelet Estimate (NORMAL) Polychromasia Hypochromasia (manual) Poikilocytosis (manual Anisocytosis (manual) Target Cells Puncture Site R brac pCO2 31 L (35-45) mm/Hg pO2 281 H (80-100) mm/Hg HCO3 16.8 L (21-28) mmol/L ABG pH 7.29 L (7.35-7.45) ABG Total CO2 15.9 L (22-28) mmol/L ABG O2 Saturation 98.9 H (95-98) % ABG Base Excess -10.5 L (-2.0-3.0) mmol/L ABG Hemoglobin 12.3 (11.7-17.4) g/dL ABG Carboxyhemoglobin 0.7 (0.5-1.5) % POC ABG HHb (Measured) 1.1 (0.0-5.0) % ABG Methemoglobin 0.5 (0.0-3.0) % Scout Test Na A-a O2 Difference -35.0 mm/Hg Respiratory Index -0.1 Hgb O2 Saturation 97.8 (95.0-98.0) % Vent Mode Prvc Mechanical Rate 14 FiO2 40.0 % Tidal Volume 40 PEEP 5 Sodium (132-148) mmol/L Potassium (3.6-5.2) mmol/L Chloride (98-107) mmol/L Carbon Dioxide (22-30) mmol/L Anion Gap (10-20) BUN (7-17) mg/dL Creatinine (0.7-1.2) mg/dL Est GFR ( Amer) Est GFR (Non-Af Amer) POC Glucose (mg/dL) 190 H 184 H (65-110) mg/dL Random Glucose (65-105) mg/dL Calcium (8.6-10.4) mg/dl Phosphorus (2.5-4.5) mg/dL Magnesium (1.6-2.3) mg/dL Total Bilirubin (0.2-1.3) mg/dL AST (14-36) U/L ALT (9-52) U/L Alkaline Phosphatase (38-126) U/L Total Protein (6.3-8.3) g/dL Albumin (3.5-5.0) g/dL Globulin (2.2-3.9) gm/dL Albumin/Globulin Ratio (1.0-2.1) //18 Range/Units 11:37 WBC (4.8-10.8) K/uL RBC (3.80-5.20) Mil/uL Hgb (11.0-16.0) g/dL Hct (34.0-47.0) % MCV (81.0-99.0) fL MCH (27.0-31.0) pg MCHC (33.0-37.0) g/dL RDW (11.5-14.5) % Plt Count (130-400) K/uL MPV (7.2-11.7) fL Neut % (Auto) (50.0-75.0) % Lymph % (Auto) (20.0-40.0) % [place] % (Auto) (0.0-10.0) % Eos % (Auto) (0.0-4.0) % Baso % (Auto) (0.0-2.0) % Neut # (Auto) (1.8-7.0) K/uL Lymph # (Auto) (1.0-4.3) K/uL [place] # (Auto) (0.0-0.8) K/uL Eos # (Auto) (0.0-0.7) K/uL Baso # (Auto) (0.0-0.2) K/uL Neutrophils % (Manual) (50-75) % Band Neutrophils % (0-2) % Lymphocytes % (Manual) (20-40) % Monocytes % (Manual) (0-10) % Eosinophils % (Manual) (0-4) % Basophils % (Manual) (0-2) % Myelocytes % (0-0) % Platelet Estimate (NORMAL) Polychromasia Hypochromasia (manual) Poikilocytosis (manual Anisocytosis (manual) Target Cells Puncture Site pCO2 (35-45) mm/Hg pO2 (80-100) mm/Hg HCO3 (21-28) mmol/L ABG pH (7.35-7.45) ABG Total CO2 (22-28) mmol/L ABG O2 Saturation (95-98) % ABG Base Excess (-2.0-3.0) mmol/L ABG Hemoglobin (11.7-17.4) g/dL ABG Carboxyhemoglobin (0.5-1.5) % POC ABG HHb (Measured) (0.0-5.0) % ABG Methemoglobin (0.0-3.0) % Scout Test A-a O2 Difference mm/Hg Respiratory Index Hgb O2 Saturation (95.0-98.0) % Vent Mode Mechanical Rate FiO2 % Tidal Volume PEEP Sodium (132-148) mmol/L Potassium (3.6-5.2) mmol/L Chloride (98-107) mmol/L Carbon Dioxide (22-30) mmol/L Anion Gap (10-20) BUN (7-17) mg/dL Creatinine (0.7-1.2) mg/dL Est GFR ( Amer) Est GFR (Non-Af Amer) POC Glucose (mg/dL) 221 H (65-110) mg/dL Random Glucose (65-105) mg/dL Calcium (8.6-10.4) mg/dl Phosphorus (2.5-4.5) mg/dL Magnesium (1.6-2.3) mg/dL Total Bilirubin (0.2-1.3) mg/dL AST (14-36) U/L ALT (9-52) U/L Alkaline Phosphatase (38-126) U/L Total Protein (6.3-8.3) g/dL Albumin (3.5-5.0) g/dL Globulin (2.2-3.9) gm/dL Albumin/Globulin Ratio (1.0-2.1) Laboratory Results - last 24 hr 11/13/17 11/13/17 11/13/17 11:37 17:39 23:49 WBC RBC Hgb Hct MCV MCH MCHC RDW Plt Count MPV Neut % (Auto) Lymph % (Auto) [place] % (Auto) Eos % (Auto) Baso % (Auto) Neut # (Auto) Lymph # (Auto) [place] # (Auto) Eos # (Auto) Baso # (Auto) Neutrophils % (Manual) Band Neutrophils % Lymphocytes % (Manual) Monocytes % (Manual) Eosinophils % (Manual) Basophils % (Manual) Myelocytes % Platelet Estimate Polychromasia Hypochromasia (manual) Poikilocytosis (manual Anisocytosis (manual) Target Cells Puncture Site pCO2 pO2 HCO3 ABG pH ABG Total CO2 ABG O2 Saturation ABG Base Excess ABG Hemoglobin ABG Carboxyhemoglobin POC ABG HHb (Measured) ABG Methemoglobin Scout Test A-a O2 Difference Respiratory Index Hgb O2 Saturation Vent Mode Mechanical Rate FiO2 Tidal Volume PEEP Sodium Potassium Chloride Carbon Dioxide Anion Gap BUN Creatinine Est GFR ( Amer) Est GFR (Non-Af Amer) POC Glucose (mg/dL) 221 H 184 H 190 H Random Glucose Calcium Phosphorus Magnesium Total Bilirubin AST ALT Alkaline Phosphatase Total Protein Albumin Globulin Albumin/Globulin Ratio 11/14/17 11/14/17 11/14/17 05:19 06:04 06:04 WBC 8.7 RBC 2.84 L Hgb 9.2 L Hct 25.9 L MCV 91.2 MCH 32.4 H MCHC 35.5 RDW 13.1 Plt Count 262 MPV 8.0 Neut % (Auto) 66.5 Lymph % (Auto) 17.5 L [place] % (Auto) 13.1 H Eos % (Auto) 2.3 Baso % (Auto) 0.6 Neut # (Auto) 5.8 Lymph # (Auto) 1.5 [place] # (Auto) 1.1 H Eos # (Auto) 0.2 Baso # (Auto) 0.1 Neutrophils % (Manual) 70 Band Neutrophils % 2 Lymphocytes % (Manual) 15 L Monocytes % (Manual) 7 Eosinophils % (Manual) 1 Basophils % (Manual) 1 Myelocytes % 4 H Platelet Estimate Normal Polychromasia Slight Hypochromasia (manual) Slight Poikilocytosis (manual Slight Anisocytosis (manual) Slight Target Cells Slight Puncture Site R brac pCO2 31 L pO2 281 H HCO3 16.8 L ABG pH 7.29 L ABG Total CO2 15.9 L ABG O2 Saturation 98.9 H ABG Base Excess -10.5 L ABG Hemoglobin 12.3 ABG Carboxyhemoglobin 0.7 POC ABG HHb (Measured) 1.1 ABG Methemoglobin 0.5 Scout Test Na A-a O2 Difference -35.0 Respiratory Index -0.1 Hgb O2 Saturation 97.8 Vent Mode Prvc Mechanical Rate 14 FiO2 40.0 Tidal Volume 40 PEEP 5 Sodium 142 Potassium 3.4 L Chloride 104 Carbon Dioxide 24 Anion Gap 17 BUN 10 Creatinine 0.6 L Est GFR ( Amer) > 60 Est GFR (Non-Af Amer) > 60 POC Glucose (mg/dL) Random Glucose 202 H Calcium 8.2 L Phosphorus 2.3 L Magnesium 1.7 Total Bilirubin 0.4 AST 74 H ALT 63 H D Alkaline Phosphatase 70 Total Protein 6.5 Albumin 3.0 L Globulin 3.5 Albumin/Globulin Ratio 0.9 L 11/14/17 06:04 WBC RBC Hgb Hct MCV MCH MCHC RDW Plt Count MPV Neut % (Auto) Lymph % (Auto) [place] % (Auto) Eos % (Auto) Baso % (Auto) Neut # (Auto) Lymph # (Auto) [place] # (Auto) Eos # (Auto) Baso # (Auto) Neutrophils % (Manual) Band Neutrophils % Lymphocytes % (Manual) Monocytes % (Manual) Eosinophils % (Manual) Basophils % (Manual) Myelocytes % Platelet Estimate Polychromasia Hypochromasia (manual) Poikilocytosis (manual Anisocytosis (manual) Target Cells Puncture Site pCO2 pO2 HCO3 ABG pH ABG Total CO2 ABG O2 Saturation ABG Base Excess ABG Hemoglobin ABG Carboxyhemoglobin POC ABG HHb (Measured) ABG Methemoglobin Scout Test A-a O2 Difference Respiratory Index Hgb O2 Saturation Vent Mode Mechanical Rate FiO2 Tidal Volume PEEP Sodium Potassium Chloride Carbon Dioxide Anion Gap BUN Creatinine Est GFR ( Amer) Est GFR (Non-Af Amer) POC Glucose (mg/dL) 239 H Random Glucose Calcium Phosphorus Magnesium Total Bilirubin AST ALT Alkaline Phosphatase Total Protein Albumin Globulin Albumin/Globulin Ratio Fingerstick Blood Sugar Results: 190 Critical Care Progress Note - Nutrition Nutrition: Nutrition Category Date Time Status NPO Diet [DIET] Diets 11/09/17 Breakfast Active Assessment/Plan - Assessment and Plan (Free Text) Assessment: This is an 87 year old female with PMHx achalasia, DM, CAD, COPD, osteoarthritis [facility] altered [facility] status and shortness of breath. Patient intubated and sedated. Neuro Intubated and sedated on Diprivan Cardio Cardizem 30 mg PEG QID Lopressor 75 mg PEG Q12H Pulm Vented Failed weaning trial today Will continue to try to wean the patient off of ventilation GI Tube feeds Endocrine Regular ISS Q6H Accuchecks Q6H Infectious Diseases Vancomycin 1 gm Q24H Aztreonam 1 gm Q8H Fluconazole IV daily Bactroban for PEG site excoriations Nystatin topical Prophylaxis Heparin SC Q8 Pepcid 20 mg IV daily Disposition: Failed CPAP trial. Discussed with Dr. Watt <Christopher Watt - Last Filed: 11/14/17 18:03> CCU Objective - Vital Signs / Intake & Output Vital Signs (Last 4 hours): Vital Signs Temp Pulse Resp BP Pulse Ox 11/14/17 17:00 108 H 19 95 11/14/17 16:49 112 H 18 161/86 H 96 11/14/17 16:22 103 H 15 149/77 100 11/14/17 16:00 98.0 F 100 11/14/17 15:19 98 H 14 147/65 100 11/14/17 15:09 107 H 14 92 L 11/14/17 14:27 88 13 158/78 H 100 Intake and Output (Last 8hrs): Intake & Output 11/14/17 11/14/17 11/14/17 06:59 14:59 22:59 Intake Total 539.7 1090.9 271.5 Output Total 790 400 130 Balance -250.3 690.9 141.5 Weight 101 lb 10.13 oz Intake: IV 74.3 55.7 Intake, IV Amount 185.4 555.2 16.5 Right Distal Port 100 500 0 Internal Jugular Right Medial Port 85.4 55.2 16.5 Internal Jugular Oral 200 150 Tube Feeding 280 280 105 Output: Urine 790 400 130 Urethral (Gregory) 790 400 130 Other: # Bowel Movements 0 0 - Medications Active Medications: Active Medications Generic Name Dose Route Start Last Admin Trade Name Freq PRN Reason Stop Dose Admin Acetaminophen 650 mg 11/10/17 10:52 11/11/17 16:28 Tylenol 650 Mg Supp SD 650 mg Q6 PRN Administration Fever >100.4 F Albuterol/Ipratropium 3 ml 11/10/17 14:00 11/14/17 13:21 Duoneb 3 Mg/0.5 Mg (3 Ml) Ud INH 3 ml RQ6 JUDY Administration Diltiazem HCl 30 mg 11/10/17 18:00 11/14/17 17:54 Cardizem PO 30 mg QID JUDY Administration Famotidine 20 mg 11/12/17 10:15 11/14/17 09:21 Pepcid IVP 20 mg DAILY JUDY Administration Heparin Sodium (Porcine) 5,000 units 11/10/17 06:00 11/14/17 14:48 Heparin SC 5,000 units Q8 JUDY Administration Aztreonam 1 gm/ Sodium 100 mls @ 200 mls/hr 11/10/17 09:30 11/14/17 17:54 Chloride IVPB 200 mls/hr Q8H JUDY Administration Protocol Propofol 1,000 mg in 100 mls @ 1.388 mls/hr 11/10/17 09:16 11/14/17 10:12 Diprivan IV 20 mcg/kg/min .Q24H PRN 5.552 mls/hr TITRATE PER MD ORDER Titration Protocol 5 MCG/KG/MIN Vancomycin/Sodium Chloride 1 gm in 200 mls @ 133.333 mls/hr 11/10/17 13:30 13:30 Vancomycin 1 Gm/Ns 200 Ml IVPB 11/15/17 13:31 133.333 mls/hr Q24H JUDY Administration Protocol Fluconazole 50 mls @ 100 mls/hr 11/12/17 13:00 11/14/17 10:41 Diflucan Iv 100 Mg/50 Ml Ns IVPB 100 mls/hr DAILY JUDY Administration Protocol Insulin Human Regular 0 unit 11/10/17 18:00 11/14/17 17:55 Novolin R SC 4 unit Q6H JUDY Administration Protocol Lorazepam 1 mg 11/13/17 16:06 11/14/17 15:47 Ativan IVP 1 mg Q3H PRN Administration Anxiety Metoprolol Tartrate 75 mg 11/10/17 07:00 11/14/17 07:45 Lopressor PEG 75 mg Q12H JUDY Administration Mupirocin 0 gm 11/12/17 10:15 11/14/17 17:55 Bactroban Ointment TOP 1 applic BID JUDY Administration Nystatin 0 gm 11/12/17 14:00 11/14/17 17:55 Nystop Topical Powder TOP 1 applic TID JUDY Administration - Patient Studies Lab Studies: Microbiology Studies 11/11/17 16:45 Blood Culture - Preliminary Blood-Thru Central Line NO GROWTH AFTER 3 DAYS 11/11/17 17:00 Blood Culture - Preliminary Blood-Thru Central Line NO GROWTH AFTER 3 DAYS 11/09/17 21:00 Blood Culture - Preliminary Blood NO GROWTH AFTER 4 DAYS 11/09/17 21:30 Blood Culture - Preliminary Blood NO GROWTH AFTER 4 DAYS Lab Studies 11/14/17 11/14/17 11/14/17 Range/Units 17:37 15:56 12:08 WBC (4.8-10.8) K/uL RBC (3.80-5.20) Mil/uL Hgb (11.0-16.0) g/dL Hct (34.0-47.0) % MCV (81.0-99.0) fL MCH (27.0-31.0) pg MCHC (33.0-37.0) g/dL RDW (11.5-14.5) % Plt Count (130-400) K/uL MPV (7.2-11.7) fL Neut % (Auto) (50.0-75.0) % Lymph % (Auto) (20.0-40.0) % [place] % (Auto) (0.0-10.0) % Eos % (Auto) (0.0-4.0) % Baso % (Auto) (0.0-2.0) % Neut # (Auto) (1.8-7.0) K/uL Lymph # (Auto) (1.0-4.3) K/uL [place] # (Auto) (0.0-0.8) K/uL Eos # (Auto) (0.0-0.7) K/uL Baso # (Auto) (0.0-0.2) K/uL Neutrophils % (Manual) (50-75) % Band Neutrophils % (0-2) % Lymphocytes % (Manual) (20-40) % Monocytes % (Manual) (0-10) % Eosinophils % (Manual) (0-4) % Basophils % (Manual) (0-2) % Myelocytes % (0-0) % Platelet Estimate (NORMAL) Polychromasia Hypochromasia (manual) Poikilocytosis (manual Anisocytosis (manual) Target Cells Puncture Site pCO2 (35-45) mm/Hg pO2 (80-100) mm/Hg HCO3 (21-28) mmol/L ABG pH (7.35-7.45) ABG Total CO2 (22-28) mmol/L ABG O2 Saturation (95-98) % ABG Base Excess (-2.0-3.0) mmol/L ABG Hemoglobin (11.7-17.4) g/dL ABG Carboxyhemoglobin (0.5-1.5) % POC ABG HHb (Measured) (0.0-5.0) % ABG Methemoglobin (0.0-3.0) % Scout Test A-a O2 Difference mm/Hg Respiratory Index Hgb O2 Saturation (95.0-98.0) % Vent Mode Mechanical Rate FiO2 % Tidal Volume PEEP Sodium (132-148) mmol/L Potassium (3.6-5.2) mmol/L Chloride (98-107) mmol/L Carbon Dioxide (22-30) mmol/L Anion Gap (10-20) BUN (7-17) mg/dL Creatinine (0.7-1.2) mg/dL Est GFR ( Amer) Est GFR (Non-Af Amer) POC Glucose (mg/dL) 218 H (65-110) mg/dL Random Glucose (65-105) mg/dL Calcium (8.6-10.4) mg/dl Phosphorus (2.5-4.5) mg/dL Magnesium (1.6-2.3) mg/dL Total Bilirubin (0.2-1.3) mg/dL AST (14-36) U/L ALT (9-52) U/L Alkaline Phosphatase (38-126) U/L Total Protein (6.3-8.3) g/dL Albumin (3.5-5.0) g/dL Globulin (2.2-3.9) gm/dL Albumin/Globulin Ratio (1.0-2.1) Vancomycin Peak 29.7 L (30.0-40.0) ug/mL Vancomycin Trough 10.7 H (5.0-10.0) ug/mL 11/14/17 11/14/17 11/14/17 Range/Units 11:13 06:04 06:04 WBC (4.8-10.8) K/uL RBC (3.80-5.20) Mil/uL Hgb (11.0-16.0) g/dL Hct (34.0-47.0) % MCV (81.0-99.0) fL MCH (27.0-31.0) pg MCHC (33.0-37.0) g/dL RDW (11.5-14.5) % Plt Count (130-400) K/uL MPV (7.2-11.7) fL Neut % (Auto) (50.0-75.0) % Lymph % (Auto) (20.0-40.0) % [place] % (Auto) (0.0-10.0) % Eos % (Auto) (0.0-4.0) % Baso % (Auto) (0.0-2.0) % Neut # (Auto) (1.8-7.0) K/uL Lymph # (Auto) (1.0-4.3) K/uL [place] # (Auto) (0.0-0.8) K/uL Eos # (Auto) (0.0-0.7) K/uL Baso # (Auto) (0.0-0.2) K/uL Neutrophils % (Manual) (50-75) % Band Neutrophils % (0-2) % Lymphocytes % (Manual) (20-40) % Monocytes % (Manual) (0-10) % Eosinophils % (Manual) (0-4) % Basophils % (Manual) (0-2) % Myelocytes % (0-0) % Platelet Estimate (NORMAL) Polychromasia Hypochromasia (manual) Poikilocytosis (manual Anisocytosis (manual) Target Cells Puncture Site pCO2 (35-45) mm/Hg pO2 (80-100) mm/Hg HCO3 (21-28) mmol/L ABG pH (7.35-7.45) ABG Total CO2 (22-28) mmol/L ABG O2 Saturation (95-98) % ABG Base Excess (-2.0-3.0) mmol/L ABG Hemoglobin (11.7-17.4) g/dL ABG Carboxyhemoglobin (0.5-1.5) % POC ABG HHb (Measured) (0.0-5.0) % ABG Methemoglobin (0.0-3.0) % Scout Test A-a O2 Difference mm/Hg Respiratory Index Hgb O2 Saturation (95.0-98.0) % Vent Mode Mechanical Rate FiO2 % Tidal Volume PEEP Sodium 142 (132-148) mmol/L Potassium 3.4 L (3.6-5.2) mmol/L Chloride 104 (98-107) mmol/L Carbon Dioxide 24 (22-30) mmol/L Anion Gap 17 (10-20) BUN 10 (7-17) mg/dL Creatinine 0.6 L (0.7-1.2) mg/dL Est GFR ( Amer) > 60 Est GFR (Non-Af Amer) > 60 POC Glucose (mg/dL) 218 H 239 H (65-110) mg/dL Random Glucose 202 H (65-105) mg/dL Calcium 8.2 L (8.6-10.4) mg/dl Phosphorus 2.3 L (2.5-4.5) mg/dL Magnesium 1.7 (1.6-2.3) mg/dL Total Bilirubin 0.4 (0.2-1.3) mg/dL AST 74 H (14-36) U/L ALT 63 H D (9-52) U/L Alkaline Phosphatase 70 (38-126) U/L Total Protein 6.5 (6.3-8.3) g/dL Albumin 3.0 L (3.5-5.0) g/dL Globulin 3.5 (2.2-3.9) gm/dL Albumin/Globulin Ratio 0.9 L (1.0-2.1) Vancomycin Peak (30.0-40.0) ug/mL Vancomycin Trough (5.0-10.0) ug/mL 11/14/17 11/14/17 11/13/17 Range/Units 06:04 05:19 23:49 WBC 8.7 (4.8-10.8) K/uL RBC 2.84 L (3.80-5.20) Mil/uL Hgb 9.2 L (11.0-16.0) g/dL Hct 25.9 L (34.0-47.0) % MCV 91.2 (81.0-99.0) fL MCH 32.4 H (27.0-31.0) pg MCHC 35.5 (33.0-37.0) g/dL RDW 13.1 (11.5-14.5) % Plt Count 262 (130-400) K/uL MPV 8.0 (7.2-11.7) fL Neut % (Auto) 66.5 (50.0-75.0) % Lymph % (Auto) 17.5 L (20.0-40.0) % [place] % (Auto) 13.1 H (0.0-10.0) % Eos % (Auto) 2.3 (0.0-4.0) % Baso % (Auto) 0.6 (0.0-2.0) % Neut # (Auto) 5.8 (1.8-7.0) K/uL Lymph # (Auto) 1.5 (1.0-4.3) K/uL [place] # (Auto) 1.1 H (0.0-0.8) K/uL Eos # (Auto) 0.2 (0.0-0.7) K/uL Baso # (Auto) 0.1 (0.0-0.2) K/uL Neutrophils % (Manual) 70 (50-75) % Band Neutrophils % 2 (0-2) % Lymphocytes % (Manual) 15 L (20-40) % Monocytes % (Manual) 7 (0-10) % Eosinophils % (Manual) 1 (0-4) % Basophils % (Manual) 1 (0-2) % Myelocytes % 4 H (0-0) % Platelet Estimate Normal (NORMAL) Polychromasia Slight Hypochromasia (manual) Slight Poikilocytosis (manual Slight Anisocytosis (manual) Slight Target Cells Slight Puncture Site R brac pCO2 31 L (35-45) mm/Hg pO2 281 H (80-100) mm/Hg HCO3 16.8 L (21-28) mmol/L ABG pH 7.29 L (7.35-7.45) ABG Total CO2 15.9 L (22-28) mmol/L ABG O2 Saturation 98.9 H (95-98) % ABG Base Excess -10.5 L (-2.0-3.0) mmol/L ABG Hemoglobin 12.3 (11.7-17.4) g/dL ABG Carboxyhemoglobin 0.7 (0.5-1.5) % POC ABG HHb (Measured) 1.1 (0.0-5.0) % ABG Methemoglobin 0.5 (0.0-3.0) % Scout Test Na A-a O2 Difference -35.0 mm/Hg Respiratory Index -0.1 Hgb O2 Saturation 97.8 (95.0-98.0) % Vent Mode Prvc Mechanical Rate 14 FiO2 40.0 % Tidal Volume 40 PEEP 5 Sodium (132-148) mmol/L Potassium (3.6-5.2) mmol/L Chloride (98-107) mmol/L Carbon Dioxide (22-30) mmol/L Anion Gap (10-20) BUN (7-17) mg/dL Creatinine (0.7-1.2) mg/dL Est GFR ( Amer) Est GFR (Non-Af Amer) POC Glucose (mg/dL) 190 H (65-110) mg/dL Random Glucose (65-105) mg/dL Calcium (8.6-10.4) mg/dl Phosphorus (2.5-4.5) mg/dL Magnesium (1.6-2.3) mg/dL Total Bilirubin (0.2-1.3) mg/dL AST (14-36) U/L ALT (9-52) U/L Alkaline Phosphatase (38-126) U/L Total Protein (6.3-8.3) g/dL Albumin (3.5-5.0) g/dL Globulin (2.2-3.9) gm/dL Albumin/Globulin Ratio (1.0-2.1) Vancomycin Peak (30.0-40.0) ug/mL Vancomycin Trough (5.0-10.0) ug/mL Laboratory Results - last 24 hr 11/13/17 11/14/17 11/14/17 23:49 05:19 06:04 WBC 8.7 RBC 2.84 L Hgb 9.2 L Hct 25.9 L MCV 91.2 MCH 32.4 H MCHC 35.5 RDW 13.1 Plt Count 262 MPV 8.0 Neut % (Auto) 66.5 Lymph % (Auto) 17.5 L [place] % (Auto) 13.1 H Eos % (Auto) 2.3 Baso % (Auto) 0.6 Neut # (Auto) 5.8 Lymph # (Auto) 1.5 [place] # (Auto) 1.1 H Eos # (Auto) 0.2 Baso # (Auto) 0.1 Neutrophils % (Manual) 70 Band Neutrophils % 2 Lymphocytes % (Manual) 15 L Monocytes % (Manual) 7 Eosinophils % (Manual) 1 Basophils % (Manual) 1 Myelocytes % 4 H Platelet Estimate Normal Polychromasia Slight Hypochromasia (manual) Slight Poikilocytosis (manual Slight Anisocytosis (manual) Slight Target Cells Slight Puncture Site R brac pCO2 31 L pO2 281 H HCO3 16.8 L ABG pH 7.29 L ABG Total CO2 15.9 L ABG O2 Saturation 98.9 H ABG Base Excess -10.5 L ABG Hemoglobin 12.3 ABG Carboxyhemoglobin 0.7 POC ABG HHb (Measured) 1.1 ABG Methemoglobin 0.5 Scout Test Na A-a O2 Difference -35.0 Respiratory Index -0.1 Hgb O2 Saturation 97.8 Vent Mode Prvc Mechanical Rate 14 FiO2 40.0 Tidal Volume 40 PEEP 5 Sodium Potassium Chloride Carbon Dioxide Anion Gap BUN Creatinine Est GFR ( Amer) Est GFR (Non-Af Amer) POC Glucose (mg/dL) 190 H Random Glucose Calcium Phosphorus Magnesium Total Bilirubin AST ALT Alkaline Phosphatase Total Protein Albumin Globulin Albumin/Globulin Ratio Vancomycin Peak Vancomycin Trough 11/14/17 11/14/17 11/14/17 06:04 06:04 11:13 WBC RBC Hgb Hct MCV MCH MCHC RDW Plt Count MPV Neut % (Auto) Lymph % (Auto) [place] % (Auto) Eos % (Auto) Baso % (Auto) Neut # (Auto) Lymph # (Auto) [place] # (Auto) Eos # (Auto) Baso # (Auto) Neutrophils % (Manual) Band Neutrophils % Lymphocytes % (Manual) Monocytes % (Manual) Eosinophils % (Manual) Basophils % (Manual) Myelocytes % Platelet Estimate Polychromasia Hypochromasia (manual) Poikilocytosis (manual Anisocytosis (manual) Target Cells Puncture Site pCO2 pO2 HCO3 ABG pH ABG Total CO2 ABG O2 Saturation ABG Base Excess ABG Hemoglobin ABG Carboxyhemoglobin POC ABG HHb (Measured) ABG Methemoglobin Scout Test A-a O2 Difference Respiratory Index Hgb O2 Saturation Vent Mode Mechanical Rate FiO2 Tidal Volume PEEP Sodium 142 Potassium 3.4 L Chloride 104 Carbon Dioxide 24 Anion Gap 17 BUN 10 Creatinine 0.6 L Est GFR ( Amer) > 60 Est GFR (Non-Af Amer) > 60 POC Glucose (mg/dL) 239 H 218 H Random Glucose 202 H Calcium 8.2 L Phosphorus 2.3 L Magnesium 1.7 Total Bilirubin 0.4 AST 74 H ALT 63 H D Alkaline Phosphatase 70 Total Protein 6.5 Albumin 3.0 L Globulin 3.5 Albumin/Globulin Ratio 0.9 L Vancomycin Peak Vancomycin Trough 11/14/17 11/14/17 11/14/17 12:08 15:56 17:37 WBC RBC Hgb Hct MCV MCH MCHC RDW Plt Count MPV Neut % (Auto) Lymph % (Auto) [place] % (Auto) Eos % (Auto) Baso % (Auto) Neut # (Auto) Lymph # (Auto) [place] # (Auto) Eos # (Auto) Baso # (Auto) Neutrophils % (Manual) Band Neutrophils % Lymphocytes % (Manual) Monocytes % (Manual) Eosinophils % (Manual) Basophils % (Manual) Myelocytes % Platelet Estimate Polychromasia Hypochromasia (manual) Poikilocytosis (manual Anisocytosis (manual) Target Cells Puncture Site pCO2 pO2 HCO3 ABG pH ABG Total CO2 ABG O2 Saturation ABG Base Excess ABG Hemoglobin ABG Carboxyhemoglobin POC ABG HHb (Measured) ABG Methemoglobin Scout Test A-a O2 Difference Respiratory Index Hgb O2 Saturation Vent Mode Mechanical Rate FiO2 Tidal Volume PEEP Sodium Potassium Chloride Carbon Dioxide Anion Gap BUN Creatinine Est GFR ( Amer) Est GFR (Non-Af Amer) POC Glucose (mg/dL) 218 H Random Glucose Calcium Phosphorus Magnesium Total Bilirubin AST ALT Alkaline Phosphatase Total Protein Albumin Globulin Albumin/Globulin Ratio Vancomycin Peak 29.7 L Vancomycin Trough 10.7 H Critical Care Progress Note - Nutrition Nutrition: Nutrition Category Date Time Status NPO Diet [DIET] Diets 11/09/17 Breakfast Active Attending/Attestation - Attestation I have personally seen and examined this patient.: Yes I have fully participated in the care of the patient.: Yes I have reviewed all pertinent clinical information: Yes Notes (Text): 11/14/17 18:01 patient seen and examined in the intensive care unit. Patient did not tolerate CPAP trial Continue ventilatory support Continue IV steroids Continue feeding Possible trach
--- NOTE | 2017-11-14 12:18 | CP.PCM.PN ---
<Leonard Lopez - Last Filed: 11/14/17 17:48> Subjective - Date & Time of Evaluation Date of Evaluation: 11/14/17 Time of Evaluation: 12:15 - Subjective Subjective: PGY-[address] Fernandez's Cardiology service Pt seen and examined at bedside. Nursing reports no acute events overnight. Pt on Mechanical ventilation for Respiratory failure. ROS cannot be obtained secondary to pt's inabilty to answer questions. Objective - Vital Signs/Intake and Output Vital Signs (last 24 hours): Temp Pulse Resp BP Pulse Ox 98.2 F 84 14 135/59 L 100 11/14/17 08:00 11/14/17 11:37 11/14/17 11:37 11/14/17 11:37 11/14/17 11:37 Intake and Output: 11/14/17 11/14/17 06:59 18:59 Intake Total 811.7 769.4 Output Total 1170 270 Balance -358.3 499.4 - Medications Medications: Current Medications Acetaminophen (Tylenol 650 Mg Supp) 650 mg MN Q6 PRN PRN Reason: Fever >100.4 F Last Admin: 11/11/17 16:28 Dose: 650 mg Albuterol/Ipratropium (Duoneb 3 Mg/0.5 Mg (3 Ml) Ud) 3 ml INH RQ6 [facility] Last Admin: 11/14/17 08:16 Dose: 3 ml Diltiazem HCl (Cardizem) 30 mg PO QID [facility] Last Admin: 11/14/17 09:03 Dose: 30 mg Famotidine (Pepcid) 20 mg IVP DAILY [facility] Last Admin: 11/14/17 09:21 Dose: 20 mg Heparin Sodium (Porcine) (Heparin) 5,000 units SC Q8 [facility] Last Admin: 11/14/17 05:04 Dose: 5,000 units Aztreonam 1 gm/ Sodium (Chloride) 100 mls @ 200 mls/hr IVPB Q8H [facility] PRN Reason: Protocol Last Admin: 11/14/17 08:52 Dose: 200 mls/hr Propofol (Diprivan) 1,000 mg in 100 mls @ 1.388 mls/hr IV .Q24H PRN; Protocol; 5 MCG/KG/MIN PRN Reason: TITRATE PER MD ORDER Last Titration: 11/14/17 10:12 Dose: 20 mcg/kg/min, 5.552 mls/hr Vancomycin/Sodium Chloride (Vancomycin 1 Gm/Ns 200 Ml) 1 gm in 200 mls @ 133.333 mls/hr IVPB Q24H [facility] PRN Reason: Protocol Stop: 11/15/17 13:31 Last Admin: 11/13/17 12:43 Dose: 133.333 mls/hr Fluconazole (Diflucan Iv 100 Mg/50 Ml Ns) 50 mls @ 100 mls/hr IVPB DAILY [facility] PRN Reason: Protocol Last Admin: 11/14/17 10:41 Dose: 100 mls/hr Insulin Human Regular (Novolin R) 0 unit SC Q6H [facility] PRN Reason: Protocol Last Admin: 11/14/17 11:24 Dose: 4 unit Lorazepam (Ativan) 1 mg IVP Q3H PRN PRN Reason: Anxiety Last Admin: 11/14/17 00:10 Dose: 1 mg Metoprolol Tartrate (Lopressor) 75 mg PEG Q12H [facility] Last Admin: 11/14/17 07:45 Dose: 75 mg Mupirocin (Bactroban Ointment) 0 gm TOP BID [facility] Last Admin: 11/14/17 09:04 Dose: 1 applic Nystatin (Nystop Topical Powder) 0 gm TOP TID [facility] Last Admin: 11/14/17 09:04 Dose: 1 applic - Labs Labs: 11/14/17 06:04 11/14/17 06:04 - Constitutional Appears: Chronically Ill - Head Exam Head Exam: ATRAUMATIC, NORMAL INSPECTION - Eye Exam Eye Exam: EOMI, PERRL - ENT Exam ENT Exam: Mucous Membranes Dry - Respiratory Exam Respiratory Exam: Clear to Ausculation Bilateral Additional comments: ON MV - Cardiovascular Exam Cardiovascular Exam: REGULAR RHYTHM, +S1, +S2 - GI/Abdominal Exam GI & Abdominal Exam: Soft, Normal Bowel Sounds Additional comments: PEG tube - Extremities Exam Extremities Exam: Normal Capillary Refill, Normal Inspection - Back Exam Back Exam: absent: CVA tenderness (L), CVA tenderness (R) - Neurological Exam Neurological Exam: Altered Additional comments: intubated/sedated - Skin Skin Exam: Intact Assessment and Plan - Assessment and Plan (Free Text) Plan: Hx of CAD/HTN SVT/afib on this admission Hx coronary artery bypass grafting Cardizem 30 mg PEG QID Lopressor 75 mg PEG Q12H No cardiac events. RSR on cardiac monitoring. Will continue to monitor Leonard Lopez PGY-[address] Fernandez <Loc Fernandez - Last Filed: 11/14/17 22:04> Objective - Vital Signs/Intake and Output Vital Signs (last 24 hours): Temp Pulse Resp BP Pulse Ox 99.2 F 116 H 21 195/93 H 94 L 11/14/17 20:00 11/14/17 21:00 11/14/17 21:00 11/14/17 20:55 11/14/17 21:00 Intake and Output: 11/14/17 11/15/17 18:59 06:59 Intake Total 1602.9 121.5 Output Total 900 500 Balance 702.9 -378.5 - Medications Medications: Current Medications Acetaminophen (Tylenol 650 Mg Supp) 650 mg MN Q6 PRN PRN Reason: Fever >100.4 F Last Admin: 11/11/17 16:28 Dose: 650 mg Albuterol/Ipratropium (Duoneb 3 Mg/0.5 Mg (3 Ml) Ud) 3 ml INH RQ6 [facility] Last Admin: 11/14/17 19:45 Dose: 3 ml Diltiazem HCl (Cardizem) 30 mg PO QID [facility] Last Admin: 11/14/17 21:59 Dose: 30 mg Famotidine (Pepcid) 20 mg IVP DAILY [facility] Last Admin: 11/14/17 09:21 Dose: 20 mg Heparin Sodium (Porcine) (Heparin) 5,000 units SC Q8 [facility] Last Admin: 11/14/17 21:58 Dose: 5,000 units Aztreonam 1 gm/ Sodium (Chloride) 100 mls @ 200 mls/hr IVPB Q8H [facility] PRN Reason: Protocol Last Admin: 11/14/17 17:54 Dose: 200 mls/hr Propofol (Diprivan) 1,000 mg in 100 mls @ 1.388 mls/hr IV .Q24H PRN; Protocol; 5 MCG/KG/MIN PRN Reason: TITRATE PER MD ORDER Last Titration: 11/14/17 10:12 Dose: 20 mcg/kg/min, 5.552 mls/hr Vancomycin/Sodium Chloride (Vancomycin 1 Gm/Ns 200 Ml) 1 gm in 200 mls @ 133.333 mls/hr IVPB Q24H [facility] PRN Reason: Protocol Stop: 11/15/17 13:31 Last Admin: 11/14/17 13:30 Dose: 133.333 mls/hr Fluconazole (Diflucan Iv 100 Mg/50 Ml Ns) 50 mls @ 100 mls/hr IVPB DAILY [facility] PRN Reason: Protocol Last Admin: 11/14/17 10:41 Dose: 100 mls/hr Insulin Human Regular (Novolin R) 0 unit SC Q6H [facility] PRN Reason: Protocol Last Admin: 11/14/17 17:55 Dose: 4 unit Lorazepam (Ativan) 1 mg IVP Q3H PRN PRN Reason: Anxiety Last Admin: 11/14/17 15:47 Dose: 1 mg Metoprolol Tartrate (Lopressor) 75 mg PEG Q12H [facility] Last Admin: 11/14/17 18:05 Dose: 75 mg Mupirocin (Bactroban Ointment) 0 gm TOP BID [facility] Last Admin: 11/14/17 17:55 Dose: 1 applic Nystatin (Nystop Topical Powder) 0 gm TOP TID [facility] Last Admin: 11/14/17 17:55 Dose: 1 applic - Labs Labs: 11/14/17 06:04 11/14/17 06:04 Assessment and Plan - Assessment and Plan (Free Text) Plan: Patient seen and evaluated personally by me Plan of care d/w the medical bill processor and as documented
[2017-11-14] MEDS: Vancomycin 1 gm/NS 200 ml 1 GM/200 ML BAG IVPB SCH (13:30)
--- NOTE | 2017-11-14 13:41 | CARD ---
APPROVED REPORT EXAM: Two-dimensional and M-mode echocardiogram with Doppler and color Doppler. Other Information Quality : GoodRhythm : INDICATION Atrial Fibrillation Cardiac Disease: CAD RISK FACTORS Hypertension Diabetes 2D DIMENSIONS IVSd1.2 (0.7-1.1cm)LVDd3.3 (3.9-5.9cm) PWd1.4 (0.7-1.1cm)LVDs1.7 (2.5-4.0cm) FS (%) 47.8 %LVEF (%)75.0 (>50%) M-Mode DIMENSIONS Left Atrium (MM)3.52 (2.5-4.0cm)Aortic Root3.11 (2.2-3.7cm) Aortic Cusp Exc.1.39 (1.5-2.0cm) Mitral Valve MV E Qyuyekit197.8cm/sMV A Tcrpcxvy633.6cm/sE/A ratio0.8 TDI E/Lateral E'0.0E/Medial E'0.0 Tricuspid Valve TR Peak Amncrlmv355mm/sTR Peak Gr.27mmHg LEFT VENTRICLE The left ventricle is normal size. There is mild concentric left ventricular hypertrophy. The left ventricular function is normal. The left ventricular ejection fraction is within the normal range. No regional wall motion abnormalities noted. 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 There is no ventricular septal defect visualized. There is no left ventricular aneurysm. There is no mass noted in the left ventricle. RIGHT VENTRICLE The right ventricle is normal size. There is normal right ventricular wall thickness. The right ventricular systolic function is normal. ATRIA The left atrium size is normal. The right atrium size is normal. The interatrial septum is intact with no evidence for an atrial septal defect. AORTIC VALVE The aortic valve is normal in structure and function. No aortic regurgitation is present. There is no aortic valvular stenosis. There is no aortic valvular vegetation. MITRAL VALVE The mitral valve is normal in structure and function. Mitral annular calcification is moderate. There is no evidence of mitral valve prolapse. There is no mitral valve stenosis. Mitral regurgitation is mild. TRICUSPID VALVE The tricuspid valve is normal in structure and function. There is mild tricuspid regurgitation. Right ventricular systolic pressure is estimated at less than 30 mmHg. There is no tricuspid valve prolapse or vegetation. There is no tricuspid valve stenosis. PULMONIC VALVE The pulmonary valve is normal in structure and function. There is no pulmonic valvular regurgitation. There is no pulmonic valvular stenosis. GREAT VESSELS The aortic root is normal in size. The ascending aorta is normal in size. The pulmonary artery is normal. The IVC is normal in size and collapses >50% with inspiration. PERICARDIAL EFFUSION The pericardium appears normal. There is no pleural effusion. <Conclusion> There is mild concentric left ventricular hypertrophy. The left ventricular function is normal. The left ventricular ejection fraction is within the normal range. No regional wall motion abnormalities noted. Mitral regurgitation is mild.
--- NOTE | 2017-11-14 14:07 | CP.PCM.PN ---
Subjective - Date & Time of Evaluation Date of Evaluation: 11/14/17 Time of Evaluation: 14:06 - Subjective Subjective: CHIEF COMPLAINTS TODAY : intubated, tmax 99.4 sedated. unable to tolerate CPAP today secretions+ve thick +VE FOLYS- ROS. ON OBSERVATION. HEENT : N. Resp : No SOB wheezing, cough +VE THICK SECRETIONS. Cardio : No CP, PND orthopnea GI : No abd. 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 Musculoskel : N Ext. : Pedal pulses intact, no edema or calf pain Derm : N Psych : N. PE. Pt. is, INTUBATED, in no distress. V.S As noted in the chart Head ,ear nose,throat and eyes : Normal. Neck : Supple with normal carotids. Lungs: B/L RHONCHI Heart : S1 & S2 normal . . No murmur. S4 + Abd : Soft non tender with normal bowel sounds. Neuro : Moves all ext. with no localized deficit. Ext : No edema with intact pulses. Neg. calf tenderness Derm : No rashes or decubitus ulcer. Radiology/Labs . SPUTUM +VE staph aureus MSSA GT-EXIT SITE SECRETIONS +VE kLEBSIELLA PNEUMONIAE/Farheen ALBICANS. LFTS N. VANCO TROUGH 14.6 OK Asssessment : SEPSIS/LEUKOCYTOSIS ACUTE RESPIRATORY FAILURE /ASPIRATION PNEUMONIA. GT-EXIT SITE DRAINAGE. dIABETES MELLITUS. CAD/S/P CABG Plan: CONTINUE iv AZACTAM 1 G EVERY 8 HOURLY. 11/09/17. CONTINUE iv VANCOMYCIN 1 G EVERY 24 HOURLY. 11/10/17. ON iv dIFLUCAN 100 MG ONCE A DAY DAILY iv PIGGYBACK.-2DAY lOADING DOSE dIFLUCAN 200 MG GIVEN . F/U K/LFTS POTASSIUM SUPPLEMENT PER pmd. MONITOR RENAL FUNCTIONS CLOSELY. PULMONARY TOILET WEANING PER PMD. Objective - Vital Signs/Intake and Output Vital Signs (last 24 hours): Temp Pulse Resp BP Pulse Ox 97.4 F L 76 14 128/53 L 100 11/14/17 12:00 11/14/17 12:49 11/14/17 12:49 11/14/17 12:49 11/14/17 12:49 Intake and Output: 11/14/17 11/14/17 06:59 18:59 Intake Total 811.7 809.9 Output Total 1170 310 Balance -358.3 499.9 - Medications Medications: Current Medications Acetaminophen (Tylenol 650 Mg Supp) 650 mg IN Q6 PRN PRN Reason: Fever >100.4 F Last Admin: 11/11/17 16:28 Dose: 650 mg Albuterol/Ipratropium (Duoneb 3 Mg/0.5 Mg (3 Ml) Ud) 3 ml INH RQ6 [facility] Last Admin: 11/14/17 13:21 Dose: 3 ml Diltiazem HCl (Cardizem) 30 mg PO QID [facility] Last Admin: 11/14/17 09:03 Dose: 30 mg Famotidine (Pepcid) 20 mg IVP DAILY [facility] Last Admin: 11/14/17 09:21 Dose: 20 mg Heparin Sodium (Porcine) (Heparin) 5,000 units SC Q8 [facility] Last Admin: 11/14/17 05:04 Dose: 5,000 units Aztreonam 1 gm/ Sodium (Chloride) 100 mls @ 200 mls/hr IVPB Q8H [facility] PRN Reason: Protocol Last Admin: 11/14/17 08:52 Dose: 200 mls/hr Propofol (Diprivan) 1,000 mg in 100 mls @ 1.388 mls/hr IV .Q24H PRN; Protocol; 5 MCG/KG/MIN PRN Reason: TITRATE PER MD ORDER Last Titration: 11/14/17 10:12 Dose: 20 mcg/kg/min, 5.552 mls/hr Vancomycin/Sodium Chloride (Vancomycin 1 Gm/Ns 200 Ml) 1 gm in 200 mls @ 133.333 mls/hr IVPB Q24H [facility] PRN Reason: Protocol Stop: 11/15/17 13:31 Last Admin: 11/14/17 13:30 Dose: 133.333 mls/hr Fluconazole (Diflucan Iv 100 Mg/50 Ml Ns) 50 mls @ 100 mls/hr IVPB DAILY [facility] PRN Reason: Protocol Last Admin: 11/14/17 10:41 Dose: 100 mls/hr Insulin Human Regular (Novolin R) 0 unit SC Q6H [facility] PRN Reason: Protocol Last Admin: 11/14/17 11:24 Dose: 4 unit Lorazepam (Ativan) 1 mg IVP Q3H PRN PRN Reason: Anxiety Last Admin: 11/14/17 00:10 Dose: 1 mg Metoprolol Tartrate (Lopressor) 75 mg PEG Q12H [facility] Last Admin: 11/14/17 07:45 Dose: 75 mg Mupirocin (Bactroban Ointment) 0 gm TOP BID [facility] Last Admin: 11/14/17 09:04 Dose: 1 applic Nystatin (Nystop Topical Powder) 0 gm TOP TID [facility] Last Admin: 11/14/17 09:04 Dose: 1 applic - Labs Labs: 11/14/17 06:04 11/14/17 06:04 Assessment and Plan (1) Sepsis Status: Acute (2) Respiratory failure with hypoxia Status: Acute (3) Pneumonia Status: Acute (4) Leukocytosis Status: Acute (5) Gastrostomy tube in place Status: Acute (6) CAD (coronary artery disease) Status: Acute (7) Uncontrolled diabetes mellitus Status: Acute (8) Hx of CABG Status: Acute
[2017-11-15] MEDS: (Novolin R) Insulin Human Regular 100 units/ml vial SC SCH ×4 (00:15→18:35)
[2017-11-15] MEDS: Aztreonam 1 GM in Sodium Chloride 0.9% 100 ML IVPB SCH ×3 (00:40→17:18)
[2017-11-15] MEDS: Albuterol-Ipratrop 3 mg / 0.5 (3 ml) UD INH SCH ×3 (02:00→20:01)
[2017-11-15 05:16] LABS: ABG ALLEN TEST POS; ARTERIAL BLOOD GAS HCO3 27.7 mmol/L (21-28); ARTERIAL BLOOD GAS HEMOGLOBIN 8.8 g/dL (11.7-17.4); ARTERIAL BLOOD GAS O2 SAT 99.5 % (95-98); ARTERIAL BLOOD GAS PCO2 39 mm/Hg (35-45); ARTERIAL BLOOD GAS PH 7.46 (7.35-7.45); ARTERIAL BLOOD GAS PO2 155 mm/Hg (80-100); ARTERIAL BLOOD GAS TCO2 28.9 mmol/L (22-28)
[2017-11-15 06:03] LABS: BASO # 0.1 K/uL (0.0-0.2); BASO % 0.5 % (0.0-2.0); EOS # 0.2 K/uL (0.0-0.7); EOS % 1.5 % (0.0-4.0); LYMPH # 1.6 K/uL (1.0-4.3); LYMPH % 12.6 % (20.0-40.0); MEAN CELL VOLUME 90.7 fL (81.0-99.0); MEAN CORPUSCULAR HEMOGLOBIN 31.5 pg (27.0-31.0); MEAN CORPUSCULAR HGB CONC 34.7 g/dL (33.0-37.0); MEAN PLATELET VOLUME 7.7 fL (7.2-11.7); MONO # 1.4 K/uL (0.0-0.8); NEUT # 9.2 K/uL (1.8-7.0); NEUT % 74.4 % (50.0-75.0); NRBC % 0.2 % (0.0-2.0); RBC 2.85 Mil/uL (3.80-5.20); RED CELL DISTRIBUTION WIDTH 13.1 % (11.5-14.5); WHITE BLOOD COUNT 12.4 K/uL (4.8-10.8)
[2017-11-15 06:20] LABS: ALB/GLOB RATIO 0.8 (1.0-2.1); ALBUMIN 3.3 g/dL (3.5-5.0); ALT/SGPT 66 U/L (9-52); AST/SGOT 67 U/L (14-36); BLOOD UREA NITROGEN 11 mg/dL (7-17); CALCIUM 8.7 mg/dl (8.6-10.4); GFR AFRICAN-AMERICAN > 60; GFR NON-AFRICAN AMERICAN > 60
[2017-11-15] MEDS ORDERED: Potassium Chloride 20 mEq/15 ml LIQ UD PEG ONE (08:30)
--- NOTE | 2017-11-15 09:20 | RAD ---
HISTORY: Pt vented COMPARISON: Chest x-ray 11/14/2017 TECHNIQUE: Chest one view . FINDINGS: LUNGS: Stable appearance of chronic bilateral interstitial markings. Endotracheal tube tip is 1.6 cm above the renata, consider repositioning. PLEURA: No pleural effusion is identified. CARDIOVASCULAR: Heart size is within normal limits. Coronary vascular stent noted.Atherosclerotic calcifications noted of the aorta.There is a single lead left-sided pacemaker/AICD with lead tip overlying the region of the right ventricle. Mediastinal surgical clips noted. Stable right-sided central venous line with tip overlying the region of the distal SVC/right atrium. OSSEOUS STRUCTURES: There are median sternotomy wires. VISUALIZED UPPER ABDOMEN: Unremarkable. OTHER FINDINGS: None. IMPRESSION: Endotracheal tube tip 1.6 cm above the renata, consider repositioning. Additional findings as above.
[2017-11-15] MEDS: Fluconazole IV 100mg/50 ml NS 50 ML IVPB SCH (09:47)
[2017-11-15] MEDS: Nystatin 100,000 Units/gm Topical Pow(15 gm) TOP SCH ×3 (09:48→17:18)
[2017-11-15] MEDS: Pantoprazole 40 mg EC Tab PO SCH (11:56)
--- NOTE | 2017-11-15 12:43 | CP.CCUPN ---
<Henry Lee - Last Filed: 11/15/17 12:40> CCU Subjective - Physician Review Subjective (Free Text): 11/12/17 18:43 Patient seen and examined. Patient is intubated and sedated. Failed CPAP trial this morning. 11/13/17 12:40 Patient seen and examined. Intubated and sedated. Tolerated CPAP for almost two hours today however was breathing rapidly soon after. 11/14/17 10:59 Patient seen and examined. She is intubated and sedated. Patient was unable to tolerate CPAP trial today. 11/15/17 12:40 Patient seen and examined. Patient still intubated and sedated. Sedation was removed. Diuretics started in order to assist in weaning the patient off of ventilation. CCU Objective - Vital Signs / Intake & Output Vital Signs (Last 4 hours): Vital Signs Pulse Resp BP Pulse Ox 11/15/17 12:11 125/70 11/15/17 10:36 90 14 81/42 L 99 11/15/17 10:10 104 H 14 191/79 H 100 11/15/17 09:15 103 H 14 189/81 H 100 11/15/17 08:49 94 H 14 96/50 L 100 Intake and Output (Last 8hrs): Intake & Output 11/14/17 11/15/17 11/15/17 22:59 06:59 14:59 Intake Total 794.0 420.1 288.7 Output Total 1040 960 145 Balance -246.0 -539.9 143.7 Weight 102 lb Intake: IV 70 50 20 Intake, IV Amount 144.0 55.1 163.7 Right Distal Port 100 150 Internal Jugular Right Medial Port 44.0 55.1 13.7 Internal Jugular Oral 250 Tube Feeding 280 315 105 Other 50 Output: Urine 1040 960 145 Urethral (Gregory) 1040 960 145 Other: # Bowel Movements 1 - Physical Exam Physical Exam Limitations: Positive for: Altered Mental Status (intubated/ sedated) Head: Positive for: Atraumatic, Normocephalic Pupils: Positive for: PERRL Conjunctiva: Positive for: Normal Mouth: Positive for: Dry, Other (endotracheal tube in place) Neck: Positive for: Other (Right IJ TLC in place) Respiratory/Chest: Positive for: Decreased Breath Sounds, Other (vented) Cardiovascular: Positive for: Normal S1, S2, Tachycardic Abdomen: Positive for: Distention (but soft), Normal Bowel Sounds, Feeding Tubes (PEG tube), Other (excoriations around PEG tube) Upper Extremity: Positive for: Normal Inspection Lower Extremity: Positive for: Normal Inspection Skin: Positive for: Warm, Dry - Medications Active Medications: Active Medications Generic Name Dose Route Start Last Admin Trade Name Freq PRN Reason Stop Dose Admin Acetaminophen 650 mg 11/10/17 10:52 11/11/17 16:28 Tylenol 650 Mg Supp AL 650 mg Q6 PRN Administration Fever >100.4 F Albuterol/Ipratropium 3 ml 11/10/17 14:00 11/15/17 07:15 Duoneb 3 Mg/0.5 Mg (3 Ml) Ud INH 3 ml RQ6 JUDY Administration Furosemide 40 mg 11/15/17 11:15 11/15/17 12:11 Lasix IVP 40 mg Q12 JUDY Administration Heparin Sodium (Porcine) 5,000 units 11/10/17 06:00 11/15/17 05:49 Heparin SC 5,000 units Q8 JUDY Administration Aztreonam 1 gm/ Sodium 100 mls @ 200 mls/hr 11/10/17 09:30 11/15/17 09:02 Chloride IVPB 200 mls/hr Q8H JUDY Administration Protocol Vancomycin/Sodium Chloride 1 gm in 200 mls @ 133.333 mls/hr 11/10/17 13:30 13:30 Vancomycin 1 Gm/Ns 200 Ml IVPB 11/15/17 13:31 133.333 mls/hr Q24H JUDY Administration Protocol Fluconazole 50 mls @ 100 mls/hr 11/12/17 13:00 11/15/17 09:47 Diflucan Iv 100 Mg/50 Ml Ns IVPB 100 mls/hr DAILY JUDY Administration Protocol Insulin Human Regular 0 unit 11/10/17 18:00 11/15/17 12:06 Novolin R SC 4 unit Q6H JUDY Administration Protocol Lorazepam 1 mg 11/13/17 16:06 11/15/17 06:13 Ativan IVP 1 mg Q3H PRN Administration Anxiety Mupirocin 0 gm 11/12/17 10:15 11/15/17 09:47 Bactroban Ointment TOP 1 applic BID JUDY Administration Nystatin 0 gm 11/12/17 14:00 11/15/17 09:48 Nystop Topical Powder TOP 1 applic TID JUDY Administration Pantoprazole Sodium 40 mg 11/15/17 11:15 11/15/17 11:56 Protonix Ec Tab PO Not Given DAILY JUDY - Patient Studies Lab Studies: Microbiology Studies 11/09/17 21:00 Blood Culture - Final Blood NO GROWTH AFTER 5 DAYS Gram Stain - Final TEST NOT PERFORMED 11/09/17 21:30 Blood Culture - Final Blood NO GROWTH AFTER 5 DAYS Gram Stain - Final TEST NOT PERFORMED 11/11/17 16:45 Blood Culture - Preliminary Blood-Thru Central Line NO GROWTH AFTER 3 DAYS 11/11/17 17:00 Blood Culture - Preliminary Blood-Thru Central Line NO GROWTH AFTER 3 DAYS Lab Studies 11/15/17 11/15/17 11/15/17 Range/Units 11:21 05:53 05:53 WBC 12.4 H (4.8-10.8) K/uL RBC 2.85 L (3.80-5.20) Mil/uL Hgb 9.0 L (11.0-16.0) g/dL Hct 25.9 L (34.0-47.0) % MCV 90.7 (81.0-99.0) fL MCH 31.5 H (27.0-31.0) pg MCHC 34.7 (33.0-37.0) g/dL RDW 13.1 (11.5-14.5) % Plt Count 335 (130-400) K/uL MPV 7.7 (7.2-11.7) fL Neut % (Auto) 74.4 (50.0-75.0) % Lymph % (Auto) 12.6 L (20.0-40.0) % Taylor % (Auto) 11.0 H (0.0-10.0) % Eos % (Auto) 1.5 (0.0-4.0) % Baso % (Auto) 0.5 (0.0-2.0) % Neut # (Auto) 9.2 H (1.8-7.0) K/uL Lymph # (Auto) 1.6 (1.0-4.3) K/uL Taylor # (Auto) 1.4 H (0.0-0.8) K/uL Eos # (Auto) 0.2 (0.0-0.7) K/uL Baso # (Auto) 0.1 (0.0-0.2) K/uL Puncture Site pCO2 (35-45) mm/Hg pO2 (80-100) mm/Hg HCO3 (21-28) mmol/L ABG pH (7.35-7.45) ABG Total CO2 (22-28) mmol/L ABG O2 Saturation (95-98) % ABG Base Excess (-2.0-3.0) mmol/L ABG Hemoglobin (11.7-17.4) g/dL ABG Carboxyhemoglobin (0.5-1.5) % POC ABG HHb (Measured) (0.0-5.0) % ABG Methemoglobin (0.0-3.0) % Scout Test A-a O2 Difference mm/Hg Respiratory Index Hgb O2 Saturation (95.0-98.0) % Vent Mode Mechanical Rate FiO2 % Tidal Volume PEEP Sodium 141 (132-148) mmol/L Potassium 3.4 L (3.6-5.2) mmol/L Chloride 100 (98-107) mmol/L Carbon Dioxide 28 (22-30) mmol/L Anion Gap 16 (10-20) BUN 11 (7-17) mg/dL Creatinine 0.6 L (0.7-1.2) mg/dL Est GFR ( Amer) > 60 Est GFR (Non-Af Amer) > 60 POC Glucose (mg/dL) 245 H (65-110) mg/dL Random Glucose 218 H (65-105) mg/dL Calcium 8.7 (8.6-10.4) mg/dl Phosphorus 3.0 (2.5-4.5) mg/dL Magnesium 1.8 (1.6-2.3) mg/dL Total Bilirubin 0.5 (0.2-1.3) mg/dL AST 67 H (14-36) U/L ALT 66 H (9-52) U/L Alkaline Phosphatase 80 (38-126) U/L Total Protein 7.4 (6.3-8.3) g/dL Albumin 3.3 L (3.5-5.0) g/dL Globulin 4.0 H (2.2-3.9) gm/dL Albumin/Globulin Ratio 0.8 L (1.0-2.1) Vancomycin Peak (30.0-40.0) ug/mL Vancomycin Trough (5.0-10.0) ug/mL 11/15/17 11/15/17 11/14/17 Range/Units 05:33 05:08 23:30 WBC (4.8-10.8) K/uL RBC (3.80-5.20) Mil/uL Hgb (11.0-16.0) g/dL Hct (34.0-47.0) % MCV (81.0-99.0) fL MCH (27.0-31.0) pg MCHC (33.0-37.0) g/dL RDW (11.5-14.5) % Plt Count (130-400) K/uL MPV (7.2-11.7) fL Neut % (Auto) (50.0-75.0) % Lymph % (Auto) (20.0-40.0) % Taylor % (Auto) (0.0-10.0) % Eos % (Auto) (0.0-4.0) % Baso % (Auto) (0.0-2.0) % Neut # (Auto) (1.8-7.0) K/uL Lymph # (Auto) (1.0-4.3) K/uL Taylor # (Auto) (0.0-0.8) K/uL Eos # (Auto) (0.0-0.7) K/uL Baso # (Auto) (0.0-0.2) K/uL Puncture Site Rr pCO2 39 (35-45) mm/Hg pO2 155 H (80-100) mm/Hg HCO3 27.7 (21-28) mmol/L ABG pH 7.46 H (7.35-7.45) ABG Total CO2 28.9 H (22-28) mmol/L ABG O2 Saturation 99.5 H (95-98) % ABG Base Excess 3.6 H (-2.0-3.0) mmol/L ABG Hemoglobin 8.8 L (11.7-17.4) g/dL ABG Carboxyhemoglobin 1.5 (0.5-1.5) % POC ABG HHb (Measured) 0.5 (0.0-5.0) % ABG Methemoglobin 1.4 (0.0-3.0) % Scout Test Pos A-a O2 Difference 81.0 mm/Hg Respiratory Index 0.5 Hgb O2 Saturation 96.6 (95.0-98.0) % Vent Mode Prvc Mechanical Rate 14 FiO2 40.0 % Tidal Volume 400 PEEP 5 Sodium (132-148) mmol/L Potassium (3.6-5.2) mmol/L Chloride (98-107) mmol/L Carbon Dioxide (22-30) mmol/L Anion Gap (10-20) BUN (7-17) mg/dL Creatinine (0.7-1.2) mg/dL Est GFR ( Amer) Est GFR (Non-Af Amer) POC Glucose (mg/dL) 245 H 237 H (65-110) mg/dL Random Glucose (65-105) mg/dL Calcium (8.6-10.4) mg/dl Phosphorus (2.5-4.5) mg/dL Magnesium (1.6-2.3) mg/dL Total Bilirubin (0.2-1.3) mg/dL AST (14-36) U/L ALT (9-52) U/L Alkaline Phosphatase (38-126) U/L Total Protein (6.3-8.3) g/dL Albumin (3.5-5.0) g/dL Globulin (2.2-3.9) gm/dL Albumin/Globulin Ratio (1.0-2.1) Vancomycin Peak (30.0-40.0) ug/mL Vancomycin Trough (5.0-10.0) ug/mL 11/14/17 11/14/17 11/14/17 Range/Units 17:37 15:56 12:08 WBC (4.8-10.8) K/uL RBC (3.80-5.20) Mil/uL Hgb (11.0-16.0) g/dL Hct (34.0-47.0) % MCV (81.0-99.0) fL MCH (27.0-31.0) pg MCHC (33.0-37.0) g/dL RDW (11.5-14.5) % Plt Count (130-400) K/uL MPV (7.2-11.7) fL Neut % (Auto) (50.0-75.0) % Lymph % (Auto) (20.0-40.0) % Taylor % (Auto) (0.0-10.0) % Eos % (Auto) (0.0-4.0) % Baso % (Auto) (0.0-2.0) % Neut # (Auto) (1.8-7.0) K/uL Lymph # (Auto) (1.0-4.3) K/uL Taylor # (Auto) (0.0-0.8) K/uL Eos # (Auto) (0.0-0.7) K/uL Baso # (Auto) (0.0-0.2) K/uL Puncture Site pCO2 (35-45) mm/Hg pO2 (80-100) mm/Hg HCO3 (21-28) mmol/L ABG pH (7.35-7.45) ABG Total CO2 (22-28) mmol/L ABG O2 Saturation (95-98) % ABG Base Excess (-2.0-3.0) mmol/L ABG Hemoglobin (11.7-17.4) g/dL ABG Carboxyhemoglobin (0.5-1.5) % POC ABG HHb (Measured) (0.0-5.0) % ABG Methemoglobin (0.0-3.0) % Scout Test A-a O2 Difference mm/Hg Respiratory Index Hgb O2 Saturation (95.0-98.0) % Vent Mode Mechanical Rate FiO2 % Tidal Volume PEEP Sodium (132-148) mmol/L Potassium (3.6-5.2) mmol/L Chloride (98-107) mmol/L Carbon Dioxide (22-30) mmol/L Anion Gap (10-20) BUN (7-17) mg/dL Creatinine (0.7-1.2) mg/dL Est GFR ( Amer) Est GFR (Non-Af Amer) POC Glucose (mg/dL) 218 H (65-110) mg/dL Random Glucose (65-105) mg/dL Calcium (8.6-10.4) mg/dl Phosphorus (2.5-4.5) mg/dL Magnesium (1.6-2.3) mg/dL Total Bilirubin (0.2-1.3) mg/dL AST (14-36) U/L ALT (9-52) U/L Alkaline Phosphatase (38-126) U/L Total Protein (6.3-8.3) g/dL Albumin (3.5-5.0) g/dL Globulin (2.2-3.9) gm/dL Albumin/Globulin Ratio (1.0-2.1) Vancomycin Peak 29.7 L (30.0-40.0) ug/mL Vancomycin Trough 10.7 H (5.0-10.0) ug/mL Laboratory Results - last 24 hr 11/14/17 11/14/17 11/14/17 12:08 15:56 17:37 WBC RBC Hgb Hct MCV MCH MCHC RDW Plt Count MPV Neut % (Auto) Lymph % (Auto) Taylor % (Auto) Eos % (Auto) Baso % (Auto) Neut # (Auto) Lymph # (Auto) Taylor # (Auto) Eos # (Auto) Baso # (Auto) Puncture Site pCO2 pO2 HCO3 ABG pH ABG Total CO2 ABG O2 Saturation ABG Base Excess ABG Hemoglobin ABG Carboxyhemoglobin POC ABG HHb (Measured) ABG Methemoglobin Scout Test A-a O2 Difference Respiratory Index Hgb O2 Saturation Vent Mode Mechanical Rate FiO2 Tidal Volume PEEP Sodium Potassium Chloride Carbon Dioxide Anion Gap BUN Creatinine Est GFR ( Amer) Est GFR (Non-Af Amer) POC Glucose (mg/dL) 218 H Random Glucose Calcium Phosphorus Magnesium Total Bilirubin AST ALT Alkaline Phosphatase Total Protein Albumin Globulin Albumin/Globulin Ratio Vancomycin Peak 29.7 L Vancomycin Trough 10.7 H 11/14/17 11/15/17 11/15/17 23:30 05:08 05:33 WBC RBC Hgb Hct MCV MCH MCHC RDW Plt Count MPV Neut % (Auto) Lymph % (Auto) Taylor % (Auto) Eos % (Auto) Baso % (Auto) Neut # (Auto) Lymph # (Auto) Taylor # (Auto) Eos # (Auto) Baso # (Auto) Puncture Site Rr pCO2 39 pO2 155 H HCO3 27.7 ABG pH 7.46 H ABG Total CO2 28.9 H ABG O2 Saturation 99.5 H ABG Base Excess 3.6 H ABG Hemoglobin 8.8 L ABG Carboxyhemoglobin 1.5 POC ABG HHb (Measured) 0.5 ABG Methemoglobin 1.4 Scout Test Pos A-a O2 Difference 81.0 Respiratory Index 0.5 Hgb O2 Saturation 96.6 Vent Mode Prvc Mechanical Rate 14 FiO2 40.0 Tidal Volume 400 PEEP 5 Sodium Potassium Chloride Carbon Dioxide Anion Gap BUN Creatinine Est GFR ( Amer) Est GFR (Non-Af Amer) POC Glucose (mg/dL) 237 H 245 H Random Glucose Calcium Phosphorus Magnesium Total Bilirubin AST ALT Alkaline Phosphatase Total Protein Albumin Globulin Albumin/Globulin Ratio Vancomycin Peak Vancomycin Trough 11/15/17 11/15/17 11/15/17 05:53 05:53 11:21 WBC 12.4 H RBC 2.85 L Hgb 9.0 L Hct 25.9 L MCV 90.7 MCH 31.5 H MCHC 34.7 RDW 13.1 Plt Count 335 MPV 7.7 Neut % (Auto) 74.4 Lymph % (Auto) 12.6 L Taylor % (Auto) 11.0 H Eos % (Auto) 1.5 Baso % (Auto) 0.5 Neut # (Auto) 9.2 H Lymph # (Auto) 1.6 Taylor # (Auto) 1.4 H Eos # (Auto) 0.2 Baso # (Auto) 0.1 Puncture Site pCO2 pO2 HCO3 ABG pH ABG Total CO2 ABG O2 Saturation ABG Base Excess ABG Hemoglobin ABG Carboxyhemoglobin POC ABG HHb (Measured) ABG Methemoglobin Scout Test A-a O2 Difference Respiratory Index Hgb O2 Saturation Vent Mode Mechanical Rate FiO2 Tidal Volume PEEP Sodium 141 Potassium 3.4 L Chloride 100 Carbon Dioxide 28 Anion Gap 16 BUN 11 Creatinine 0.6 L Est GFR ( Amer) > 60 Est GFR (Non-Af Amer) > 60 POC Glucose (mg/dL) 245 H Random Glucose 218 H Calcium 8.7 Phosphorus 3.0 Magnesium 1.8 Total Bilirubin 0.5 AST 67 H ALT 66 H Alkaline Phosphatase 80 Total Protein 7.4 Albumin 3.3 L Globulin 4.0 H Albumin/Globulin Ratio 0.8 L Vancomycin Peak Vancomycin Trough Fingerstick Blood Sugar Results: 245 Critical Care Progress Note - Nutrition Nutrition: Nutrition Category Date Time Status NPO Diet [DIET] Diets 11/09/17 Breakfast Active Assessment/Plan - Assessment and Plan (Free Text) Assessment: This is an 87 year old female with PMHx achalasia, DM, CAD, COPD, osteoarthritis who presented from the correction for altered mental status and shortness of breath. Patient intubated and sedated. Neuro Intubated and sedated however Diprivan now discontinued Cardio Patient is off of her home medications while she is sedated If heart rate increases, IV rate control agent will be implemented as needed Pulm Vented Will continue to try to wean the patient off of ventilation Will diurese with IV Lasix 40 mg Q12H to assist in weaning the patient GI Tube feeds at goal rate Endocrine Regular ISS Q6H Accuchecks Q6H Renal Positive fluid balance Good urine output Infectious Diseases Vancomycin 1 gm Q24H Aztreonam 1 gm Q8H Fluconazole IV daily Bactroban for PEG site excoriations Nystatin topical Prophylaxis Heparin SC Q8 Pepcid 20 mg PEG daily Discussed with Dr. Anderson <Travon Anderson - Last Filed: 11/15/17 15:47> CCU Objective - Vital Signs / Intake & Output Vital Signs (Last 4 hours): Vital Signs BP 11/15/17 12:11 125/70 Intake and Output (Last 8hrs): Intake & Output 11/15/17 11/15/17 11/15/17 06:59 14:59 22:59 Intake Total 420.1 288.7 Output Total 960 145 Balance -539.9 143.7 Weight 102 lb Intake: IV 50 20 Intake, IV Amount 55.1 163.7 Right Distal Port 150 Internal Jugular Right Medial Port 55.1 13.7 Internal Jugular Tube Feeding 315 105 Output: Urine 960 145 Urethral (Gregory) 960 145 - Medications Active Medications: Active Medications Generic Name Dose Route Start Last Admin Trade Name Freq PRN Reason Stop Dose Admin Acetaminophen 650 mg 11/10/17 10:52 11/11/17 16:28 Tylenol 650 Mg Supp AL 650 mg Q6 PRN Administration Fever >100.4 F Albuterol/Ipratropium 3 ml 11/10/17 14:00 11/15/17 07:15 Duoneb 3 Mg/0.5 Mg (3 Ml) Ud INH 3 ml RQ6 JUDY Administration Heparin Sodium (Porcine) 5,000 units 11/10/17 06:00 11/15/17 13:31 Heparin SC 5,000 units Q8 JUDY Administration Aztreonam 1 gm/ Sodium 100 mls @ 200 mls/hr 11/10/17 09:30 11/15/17 09:02 Chloride IVPB 200 mls/hr Q8H JUDY Administration Protocol Fluconazole 50 mls @ 100 mls/hr 11/12/17 13:00 11/15/17 09:47 Diflucan Iv 100 Mg/50 Ml Ns IVPB 100 mls/hr DAILY JUDY Administration Protocol Insulin Glargine 10 unit 11/15/17 22:00 Lantus SC HS JUDY Insulin Human Regular 0 unit 11/10/17 18:00 11/15/17 12:06 Novolin R SC 4 unit Q6H [facility] Administration Protocol Lorazepam 0.5 mg 11/16/17 07:00 Ativan IVP Q12 JUDY Mupirocin 0 gm 11/12/17 10:15 11/15/17 09:47 Bactroban Ointment TOP 1 applic BID JUDY Administration Nystatin 0 gm 11/12/17 14:00 11/15/17 13:44 Nystop Topical Powder TOP 1 applic TID JUDY Administration Pantoprazole Sodium 40 mg 11/15/17 11:15 11/15/17 11:56 Protonix Ec Tab PO Not Given DAILY [facility] - Patient Studies Lab Studies: Microbiology Studies 11/09/17 21:00 Blood Culture - Final Blood NO GROWTH AFTER 5 DAYS Gram Stain - Final TEST NOT PERFORMED 11/09/17 21:30 Blood Culture - Final Blood NO GROWTH AFTER 5 DAYS Gram Stain - Final TEST NOT PERFORMED 11/11/17 16:45 Blood Culture - Preliminary Blood-Thru Central Line NO GROWTH AFTER 3 DAYS 11/11/17 17:00 Blood Culture - Preliminary Blood-Thru Central Line NO GROWTH AFTER 3 DAYS Lab Studies 11/15/17 11/15/17 11/15/17 Range/Units 11:21 05:53 05:53 WBC 12.4 H (4.8-10.8) K/uL RBC 2.85 L (3.80-5.20) Mil/uL Hgb 9.0 L (11.0-16.0) g/dL Hct 25.9 L (34.0-47.0) % MCV 90.7 (81.0-99.0) fL MCH 31.5 H (27.0-31.0) pg MCHC 34.7 (33.0-37.0) g/dL RDW 13.1 (11.5-14.5) % Plt Count 335 (130-400) K/uL MPV 7.7 (7.2-11.7) fL Neut % (Auto) 74.4 (50.0-75.0) % Lymph % (Auto) 12.6 L (20.0-40.0) % Taylor % (Auto) 11.0 H (0.0-10.0) % Eos % (Auto) 1.5 (0.0-4.0) % Baso % (Auto) 0.5 (0.0-2.0) % Neut # (Auto) 9.2 H (1.8-7.0) K/uL Lymph # (Auto) 1.6 (1.0-4.3) K/uL Taylor # (Auto) 1.4 H (0.0-0.8) K/uL Eos # (Auto) 0.2 (0.0-0.7) K/uL Baso # (Auto) 0.1 (0.0-0.2) K/uL Puncture Site pCO2 (35-45) mm/Hg pO2 (80-100) mm/Hg HCO3 (21-28) mmol/L ABG pH (7.35-7.45) ABG Total CO2 (22-28) mmol/L ABG O2 Saturation (95-98) % ABG Base Excess (-2.0-3.0) mmol/L ABG Hemoglobin (11.7-17.4) g/dL ABG Carboxyhemoglobin (0.5-1.5) % POC ABG HHb (Measured) (0.0-5.0) % ABG Methemoglobin (0.0-3.0) % Scout Test A-a O2 Difference mm/Hg Respiratory Index Hgb O2 Saturation (95.0-98.0) % Vent Mode Mechanical Rate FiO2 % Tidal Volume PEEP Sodium 141 (132-148) mmol/L Potassium 3.4 L (3.6-5.2) mmol/L Chloride 100 (98-107) mmol/L Carbon Dioxide 28 (22-30) mmol/L Anion Gap 16 (10-20) BUN 11 (7-17) mg/dL Creatinine 0.6 L (0.7-1.2) mg/dL Est GFR ( Amer) > 60 Est GFR (Non-Af Amer) > 60 POC Glucose (mg/dL) 245 H (65-110) mg/dL Random Glucose 218 H (65-105) mg/dL Calcium 8.7 (8.6-10.4) mg/dl Phosphorus 3.0 (2.5-4.5) mg/dL Magnesium 1.8 (1.6-2.3) mg/dL Total Bilirubin 0.5 (0.2-1.3) mg/dL AST 67 H (14-36) U/L ALT 66 H (9-52) U/L Alkaline Phosphatase 80 (38-126) U/L Total Protein 7.4 (6.3-8.3) g/dL Albumin 3.3 L (3.5-5.0) g/dL Globulin 4.0 H (2.2-3.9) gm/dL Albumin/Globulin Ratio 0.8 L (1.0-2.1) Vancomycin Peak (30.0-40.0) ug/mL 11/15/17 11/15/17 11/14/17 Range/Units 05:33 05:08 23:30 WBC (4.8-10.8) K/uL RBC (3.80-5.20) Mil/uL Hgb (11.0-16.0) g/dL Hct (34.0-47.0) % MCV (81.0-99.0) fL MCH (27.0-31.0) pg MCHC (33.0-37.0) g/dL RDW (11.5-14.5) % Plt Count (130-400) K/uL MPV (7.2-11.7) fL Neut % (Auto) (50.0-75.0) % Lymph % (Auto) (20.0-40.0) % Taylor % (Auto) (0.0-10.0) % Eos % (Auto) (0.0-4.0) % Baso % (Auto) (0.0-2.0) % Neut # (Auto) (1.8-7.0) K/uL Lymph # (Auto) (1.0-4.3) K/uL Taylor # (Auto) (0.0-0.8) K/uL Eos # (Auto) (0.0-0.7) K/uL Baso # (Auto) (0.0-0.2) K/uL Puncture Site Rr pCO2 39 (35-45) mm/Hg pO2 155 H (80-100) mm/Hg HCO3 27.7 (21-28) mmol/L ABG pH 7.46 H (7.35-7.45) ABG Total CO2 28.9 H (22-28) mmol/L ABG O2 Saturation 99.5 H (95-98) % ABG Base Excess 3.6 H (-2.0-3.0) mmol/L ABG Hemoglobin 8.8 L (11.7-17.4) g/dL ABG Carboxyhemoglobin 1.5 (0.5-1.5) % POC ABG HHb (Measured) 0.5 (0.0-5.0) % ABG Methemoglobin 1.4 (0.0-3.0) % Scout Test Pos A-a O2 Difference 81.0 mm/Hg Respiratory Index 0.5 Hgb O2 Saturation 96.6 (95.0-98.0) % Vent Mode Prvc Mechanical Rate 14 FiO2 40.0 % Tidal Volume 400 PEEP 5 Sodium (132-148) mmol/L Potassium (3.6-5.2) mmol/L Chloride (98-107) mmol/L Carbon Dioxide (22-30) mmol/L Anion Gap (10-20) BUN (7-17) mg/dL Creatinine (0.7-1.2) mg/dL Est GFR ( Amer) Est GFR (Non-Af Amer) POC Glucose (mg/dL) 245 H 237 H (65-110) mg/dL Random Glucose (65-105) mg/dL Calcium (8.6-10.4) mg/dl Phosphorus (2.5-4.5) mg/dL Magnesium (1.6-2.3) mg/dL Total Bilirubin (0.2-1.3) mg/dL AST (14-36) U/L ALT (9-52) U/L Alkaline Phosphatase (38-126) U/L Total Protein (6.3-8.3) g/dL Albumin (3.5-5.0) g/dL Globulin (2.2-3.9) gm/dL Albumin/Globulin Ratio (1.0-2.1) Vancomycin Peak (30.0-40.0) ug/mL 11/14/17 11/14/17 Range/Units 17:37 15:56 WBC (4.8-10.8) K/uL RBC (3.80-5.20) Mil/uL Hgb (11.0-16.0) g/dL Hct (34.0-47.0) % MCV (81.0-99.0) fL MCH (27.0-31.0) pg MCHC (33.0-37.0) g/dL RDW (11.5-14.5) % Plt Count (130-400) K/uL MPV (7.2-11.7) fL Neut % (Auto) (50.0-75.0) % Lymph % (Auto) (20.0-40.0) % Taylor % (Auto) (0.0-10.0) % Eos % (Auto) (0.0-4.0) % Baso % (Auto) (0.0-2.0) % Neut # (Auto) (1.8-7.0) K/uL Lymph # (Auto) (1.0-4.3) K/uL Taylor # (Auto) (0.0-0.8) K/uL Eos # (Auto) (0.0-0.7) K/uL Baso # (Auto) (0.0-0.2) K/uL Puncture Site pCO2 (35-45) mm/Hg pO2 (80-100) mm/Hg HCO3 (21-28) mmol/L ABG pH (7.35-7.45) ABG Total CO2 (22-28) mmol/L ABG O2 Saturation (95-98) % ABG Base Excess (-2.0-3.0) mmol/L ABG Hemoglobin (11.7-17.4) g/dL ABG Carboxyhemoglobin (0.5-1.5) % POC ABG HHb (Measured) (0.0-5.0) % ABG Methemoglobin (0.0-3.0) % Scout Test A-a O2 Difference mm/Hg Respiratory Index Hgb O2 Saturation (95.0-98.0) % Vent Mode Mechanical Rate FiO2 % Tidal Volume PEEP Sodium (132-148) mmol/L Potassium (3.6-5.2) mmol/L Chloride (98-107) mmol/L Carbon Dioxide (22-30) mmol/L Anion Gap (10-20) BUN (7-17) mg/dL Creatinine (0.7-1.2) mg/dL Est GFR ( Amer) Est GFR (Non-Af Amer) POC Glucose (mg/dL) 218 H (65-110) mg/dL Random Glucose (65-105) mg/dL Calcium (8.6-10.4) mg/dl Phosphorus (2.5-4.5) mg/dL Magnesium (1.6-2.3) mg/dL Total Bilirubin (0.2-1.3) mg/dL AST (14-36) U/L ALT (9-52) U/L Alkaline Phosphatase (38-126) U/L Total Protein (6.3-8.3) g/dL Albumin (3.5-5.0) g/dL Globulin (2.2-3.9) gm/dL Albumin/Globulin Ratio (1.0-2.1) Vancomycin Peak 29.7 L (30.0-40.0) ug/mL Laboratory Results - last 24 hr 11/14/17 11/14/17 11/14/17 15:56 17:37 23:30 WBC RBC Hgb Hct MCV MCH MCHC RDW Plt Count MPV Neut % (Auto) Lymph % (Auto) Taylor % (Auto) Eos % (Auto) Baso % (Auto) Neut # (Auto) Lymph # (Auto) Taylor # (Auto) Eos # (Auto) Baso # (Auto) Puncture Site pCO2 pO2 HCO3 ABG pH ABG Total CO2 ABG O2 Saturation ABG Base Excess ABG Hemoglobin ABG Carboxyhemoglobin POC ABG HHb (Measured) ABG Methemoglobin Scout Test A-a O2 Difference Respiratory Index Hgb O2 Saturation Vent Mode Mechanical Rate FiO2 Tidal Volume PEEP Sodium Potassium Chloride Carbon Dioxide Anion Gap BUN Creatinine Est GFR ( Amer) Est GFR (Non-Af Amer) POC Glucose (mg/dL) 218 H 237 H Random Glucose Calcium Phosphorus Magnesium Total Bilirubin AST ALT Alkaline Phosphatase Total Protein Albumin Globulin Albumin/Globulin Ratio Vancomycin Peak 29.7 L 11/15/17 11/15/17 11/15/17 05:08 05:33 05:53 WBC 12.4 H RBC 2.85 L Hgb 9.0 L Hct 25.9 L MCV 90.7 MCH 31.5 H MCHC 34.7 RDW 13.1 Plt Count 335 MPV 7.7 Neut % (Auto) 74.4 Lymph % (Auto) 12.6 L Taylor % (Auto) 11.0 H Eos % (Auto) 1.5 Baso % (Auto) 0.5 Neut # (Auto) 9.2 H Lymph # (Auto) 1.6 Taylor # (Auto) 1.4 H Eos # (Auto) 0.2 Baso # (Auto) 0.1 Puncture Site Rr pCO2 39 pO2 155 H HCO3 27.7 ABG pH 7.46 H ABG Total CO2 28.9 H ABG O2 Saturation 99.5 H ABG Base Excess 3.6 H ABG Hemoglobin 8.8 L ABG Carboxyhemoglobin 1.5 POC ABG HHb (Measured) 0.5 ABG Methemoglobin 1.4 Scout Test Pos A-a O2 Difference 81.0 Respiratory Index 0.5 Hgb O2 Saturation 96.6 Vent Mode Prvc Mechanical Rate 14 FiO2 40.0 Tidal Volume 400 PEEP 5 Sodium Potassium Chloride Carbon Dioxide Anion Gap BUN Creatinine Est GFR ( Amer) Est GFR (Non-Af Amer) POC Glucose (mg/dL) 245 H Random Glucose Calcium Phosphorus Magnesium Total Bilirubin AST ALT Alkaline Phosphatase Total Protein Albumin Globulin Albumin/Globulin Ratio Vancomycin Peak 11/15/17 11/15/17 05:53 11:21 WBC RBC Hgb Hct MCV MCH MCHC RDW Plt Count MPV Neut % (Auto) Lymph % (Auto) Taylor % (Auto) Eos % (Auto) Baso % (Auto) Neut # (Auto) Lymph # (Auto) Taylor # (Auto) Eos # (Auto) Baso # (Auto) Puncture Site pCO2 pO2 HCO3 ABG pH ABG Total CO2 ABG O2 Saturation ABG Base Excess ABG Hemoglobin ABG Carboxyhemoglobin POC ABG HHb (Measured) ABG Methemoglobin Scout Test A-a O2 Difference Respiratory Index Hgb O2 Saturation Vent Mode Mechanical Rate FiO2 Tidal Volume PEEP Sodium 141 Potassium 3.4 L Chloride 100 Carbon Dioxide 28 Anion Gap 16 BUN 11 Creatinine 0.6 L Est GFR ( Amer) > 60 Est GFR (Non-Af Amer) > 60 POC Glucose (mg/dL) 245 H Random Glucose 218 H Calcium 8.7 Phosphorus 3.0 Magnesium 1.8 Total Bilirubin 0.5 AST 67 H ALT 66 H Alkaline Phosphatase 80 Total Protein 7.4 Albumin 3.3 L Globulin 4.0 H Albumin/Globulin Ratio 0.8 L Vancomycin Peak Critical Care Progress Note - Nutrition Nutrition: Nutrition Category Date Time Status NPO Diet [DIET] Diets 11/09/17 Breakfast Active Attending/Attestation - Attestation I have personally seen and examined this patient.: Yes I have fully participated in the care of the patient.: Yes I have reviewed all pertinent clinical information: Yes Notes (Text): 11/15/17 15:32 I have seen and examined the patient. Medical records, lab studies, and imaging were reviewed by me and a management plan was formulated on multidisciplinary rounds with resident Dr. Lee. I agree with their documented assessment and plan. Patient is critically ill and has a guarded prognosis. She has been failing PS trials. Will aggressively diurese to improve pulmonary mechanics and hopefully improve chances of extubation. Stopping oral anti-hypertensives as she is having periods of hypotension. Will use short acting IV lopressor prn. Critical Care Time 35 minutes. Multi-disciplinary rounds were performed with house staff, nursing, speech therapy, respiratory therapy, pharmacy and nutrition with integrated input from the primary team/attending and other consulting services. The documented time is cumulative and includes review of patient data/exams/labs/chart review and examination of the patient on rounds and throughout the day; time is exclusive of any procedures or teaching time.
[2017-11-15] MEDS: Vancomycin 1 gm/NS 200 ml 1 GM/200 ML BAG IVPB SCH (13:32)
[2017-11-15] MEDS ORDERED: Metoprolol 1 mg/ml Inj IVP PRN (16:42)
[2017-11-15] MEDS ORDERED: Enalaprilat 2.5 MG/2 ML IV ONE (18:23)
[2017-11-15] MEDS ORDERED: Labetalol 25mg/5ml Syringe IVP STA ×2 (18:50→18:51)
--- NOTE | 2017-11-15 20:22 | CP.PCM.CON ---
History of Present Illness - History of Present Illness History of Present Illness: General Surgery - 87yo F w/ hx of HTN, HL, CAD, CABG, COPD, Achalasia s/p PEG, who was [facility] for [facility] distress. She was admitted to the ICU with concerns for aspiration pneumonia. She was intubated and has been unable to be weaned of the vent as of yet. Her PEG tube has been functioning well with her tube feeds since admission, however today nursing noted some drainage coming from around the site and stopped the tube feeds. Surgery was consulted for the leaking PEG tube. Review of Systems - Review of Systems Systems not reviewed;Unavailable: Intubated Past Patient History - Infectious Disease Hx of Infectious Diseases: None - Past Medical History & Family History Past Medical History?: Yes - Past Social History Smoking Status: Unknown If Ever Smoked - CARDIAC Hx Cardia Arrhythmia: Yes Hx Congestive Heart Failure: Yes Hx Hypercholesterolemia: Yes Hx Hypertension: Yes Hx Pacemaker: Yes - PULMONARY Hx Bronchitis: Yes Hx Chronic Obstructive Pulmonary Disease (COPD): Yes Hx Pneumonia: Yes - NEUROLOGICAL Hx Seizures: No - HEENT Hx HEENT Problems: Yes Hx Cataracts: Yes (2000 Rt.Eye,2009Le Eye) - RENAL Hx Chronic Kidney Disease: No - ENDOCRINE/METABOLIC Hx Diabetes Mellitus Type 2: Yes - HEMATOLOGICAL/ONCOLOGICAL Hx Human Immunodeficiency Virus (HIV): No - INTEGUMENTARY Hx Dermatological Problems: No - MUSCULOSKELETAL/RHEUMATOLOGICAL Hx Falls: Yes - GASTROINTESTINAL Hx Gastrointestinal Disorders: Yes Hx Colitis: Yes Hx Gastroesophageal Reflux: Yes HX Swallowing Problems: Yes (Achalasia. 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) Hx Coronary Stent: Yes - ANESTHESIA Hx Anesthesia: Yes Hx Anesthesia Reactions: No Hx Malignant Hyperthermia: No Meds Allergies/Adverse Reactions: Allergies Allergy/AdvReac Type Severity Reaction Status Date / Time azithromycin [From Zithromax] Allergy Verified 11/09/17 20:54 ciprofloxacin HCl Allergy Verified 11/09/17 20:54 [From Cipro] diphenhydramine HCl Allergy Verified 11/09/17 20:54 [From Benadryl] fish oil Allergy Verified 11/09/17 20:54 iodine Allergy Verified 11/09/17 20:54 losartan potassium Allergy Verified 11/09/17 20:54 [From Cozaar] metronidazole [From Flagyl] Allergy Verified 11/09/17 20:54 nitroglycerin Allergy Verified 11/09/17 20:54 Penicillins Allergy Verified 11/09/17 20:54 sulfamethoxazole Allergy Verified 11/09/17 20:54 [From Bactrim] trimethoprim [From Bactrim] Allergy Verified 11/09/17 20:54 zolpidem Allergy Verified 11/09/17 20:54 clopidogrel bisulfate AdvReac Verified 11/09/17 20:54 [From Plavix] - Medications Medications: Current Medications Acetaminophen (Tylenol 650 Mg Supp) 650 mg [place] Q6 PRN PRN Reason: Fever >100.4 F Last Admin: 11/11/17 16:28 Dose: 650 mg Albuterol/Ipratropium (Duoneb 3 Mg/0.5 Mg (3 Ml) Ud) 3 ml INH RQ6 [facility] Last Admin: 11/15/17 20:01 Dose: 3 ml Diltiazem HCl (Cardizem) 30 mg PO QID [facility] Heparin Sodium (Porcine) (Heparin) 5,000 units SC Q8 [facility] Last Admin: 11/15/17 13:31 Dose: 5,000 units Aztreonam 1 gm/ Sodium (Chloride) 100 mls @ 200 mls/hr IVPB Q8H [facility] PRN Reason: Protocol Last Admin: 11/15/17 17:18 Dose: 200 mls/hr Fluconazole (Diflucan Iv 100 Mg/50 Ml Ns) 50 mls @ 100 mls/hr IVPB DAILY [facility] PRN Reason: Protocol Last Admin: 11/15/17 09:47 Dose: 100 mls/hr Insulin Glargine (Lantus) 10 unit SC HS [facility] Insulin Human Regular (Novolin R) 0 unit SC Q6H [facility] PRN Reason: Protocol Last Admin: 11/15/17 18:35 Dose: 6 unit Isosorbide Mononitrate (Ismo) 10 mg PO BID [facility] Lorazepam (Ativan) 0.5 mg IVP Q12 [facility] Losartan Potassium (Cozaar) 50 mg PO DAILY [facility] Metoprolol Tartrate (Lopressor) 5 mg IVP Q6H PRN PRN Reason: Heart Rate <100 Last Admin: 11/15/17 16:54 Dose: 5 mg Mupirocin (Bactroban Ointment) 0 gm TOP BID [facility] Last Admin: 11/15/17 17:18 Dose: 1 applic Nystatin (Nystop Topical Powder) 0 gm TOP TID [facility] Last Admin: 11/15/17 17:18 Dose: 1 applic Pantoprazole Sodium (Protonix Ec Tab) 40 mg PO DAILY [facility] Last Admin: 11/15/17 11:56 Dose: Not Given Physical Exam - Constitutional Appears: No Acute Distress - Head Exam Head Exam: ATRAUMATIC, NORMOCEPHALIC - Respiratory Exam Additional comments: Intubated, on Vent - GI/Abdominal Exam GI & Abdominal Exam: Soft. absent: Distended, Guarding, Rebound, Tenderness Additional comments: PEG tube in good position with some erythema and excoriation around the tube, Bumper replaced into position against the skin and clean dressing applied. No drainage noted at time of exam. - Neurological Exam Additional comments: sedated - Skin Skin Exam: Dry, Intact Results - Vital Signs Recent Vital Signs: Last Vital Signs Temp 98.5 F 11/15/17 16:00 Pulse 103 H 11/15/17 19:11 Resp 15 11/15/17 19:11 BP 169/100 H 11/15/17 19:11 Pulse Ox 99 11/15/17 19:11 - Labs Result Diagrams: 11/15/17 05:53 11/15/17 05:53 Labs: Laboratory Results - last 24 hr 11/14/17 11/15/17 11/15/17 23:30 05:08 05:33 WBC RBC Hgb Hct MCV MCH MCHC RDW Plt Count MPV Neut % (Auto) Lymph % (Auto) Rose[place] % (Auto) Eos % (Auto) Baso % (Auto) Neut # (Auto) Lymph # (Auto) [place] # (Auto) Eos # (Auto) Baso # (Auto) Puncture Site Rr pCO2 39 pO2 155 H HCO3 27.7 ABG pH 7.46 H ABG Total CO2 28.9 H ABG O2 Saturation 99.5 H ABG Base Excess 3.6 H ABG Hemoglobin 8.8 L ABG Carboxyhemoglobin 1.5 POC ABG HHb (Measured) 0.5 ABG Methemoglobin 1.4 Scout Test Pos A-a O2 Difference 81.0 Respiratory Index 0.5 Hgb O2 Saturation 96.6 Vent Mode Prvc Mechanical Rate 14 FiO2 40.0 Tidal Volume 400 PEEP 5 Sodium Potassium Chloride Carbon Dioxide Anion Gap BUN Creatinine Est GFR ( Amer) Est GFR (Non-Af Amer) POC Glucose (mg/dL) 237 H 245 H Random Glucose Calcium Phosphorus Magnesium Total Bilirubin AST ALT Alkaline Phosphatase Total Protein Albumin Globulin Albumin/Globulin Ratio 11/15/17 11/15/17 11/15/17 05:53 05:53 11:21 WBC 12.4 H RBC 2.85 L Hgb 9.0 L Hct 25.9 L MCV 90.7 MCH 31.5 H MCHC 34.7 RDW 13.1 Plt Count 335 MPV 7.7 Neut % (Auto) 74.4 Lymph % (Auto) 12.6 L Rosebud % (Auto) 11.0 H Eos % (Auto) 1.5 Baso % (Auto) 0.5 Neut # (Auto) 9.2 H Lymph # (Auto) 1.6 Rosebud # (Auto) 1.4 H Eos # (Auto) 0.2 Baso # (Auto) 0.1 Puncture Site pCO2 pO2 HCO3 ABG pH ABG Total CO2 ABG O2 Saturation ABG Base Excess ABG Hemoglobin ABG Carboxyhemoglobin POC ABG HHb (Measured) ABG Methemoglobin Scout Test A-a O2 Difference Respiratory Index Hgb O2 Saturation Vent Mode Mechanical Rate FiO2 Tidal Volume PEEP Sodium 141 Potassium 3.4 L Chloride 100 Carbon Dioxide 28 Anion Gap 16 BUN 11 Creatinine 0.6 L Est GFR ( Amer) > 60 Est GFR (Non-Af Amer) > 60 POC Glucose (mg/dL) 245 H Random Glucose 218 H Calcium 8.7 Phosphorus 3.0 Magnesium 1.8 Total Bilirubin 0.5 AST 67 H ALT 66 H Alkaline Phosphatase 80 Total Protein 7.4 Albumin 3.3 L Globulin 4.0 H Albumin/Globulin Ratio 0.8 L 11/15/17 17:53 WBC RBC Hgb Hct MCV MCH MCHC RDW Plt Count MPV Neut % (Auto) Lymph % (Auto) Rosebud % (Auto) Eos % (Auto) Baso % (Auto) Neut # (Auto) Lymph # (Auto) Rosebud # (Auto) Eos # (Auto) Baso # (Auto) Puncture Site pCO2 pO2 HCO3 ABG pH ABG Total CO2 ABG O2 Saturation ABG Base Excess ABG Hemoglobin ABG Carboxyhemoglobin POC ABG HHb (Measured) ABG Methemoglobin Scout Test A-a O2 Difference Respiratory Index Hgb O2 Saturation Vent Mode Mechanical Rate FiO2 Tidal Volume PEEP Sodium Potassium Chloride Carbon Dioxide Anion Gap BUN Creatinine Est GFR ( Amer) Est GFR (Non-Af Amer) POC Glucose (mg/dL) 278 H Random Glucose Calcium Phosphorus Magnesium Total Bilirubin AST ALT Alkaline Phosphatase Total Protein Albumin Globulin Albumin/Globulin Ratio Assessment & Plan - Assessment and Plan (Free Text) Assessment: 87 yo F w/ extensive medical hx including Achalasia, admitted for Respiratory distress, Surgery consulted for leaking PEG tube -No leakage noted at this time -Re-start tube feeds -If leakage reoccurs can place colostomy bag around the site -Wound care referral for excoriation around the tube -Will monitor DW
[2017-11-15] MEDS ORDERED: Dexmedetomidine Hydrochloride 200 MCG in Sodium Chloride 0.9% 48 ML IV PRN (20:56)
[2017-11-15] MEDS: (Lantus) Insulin Glargine, Recombinant SC SCH (21:47)
--- NOTE | 2017-11-15 22:03 | CP.PCM.PN ---
Subjective - Date & Time of Evaluation Date of Evaluation: 11/15/17 Time of Evaluation: 10:05 - Subjective Subjective: Pt seen and examined at bedside. Nursing reports no acute events overnight. Pt on Mechanical ventilation for Respiratory failure. ROS cannot be obtained secondary to pt's inabilty to answer questions. Physical Examination - Constitutional Appears: Chronically Ill - Head Exam Head Exam: ATRAUMATIC, NORMAL INSPECTION - Eye Exam Eye Exam: EOMI, PERRL - ENT Exam ENT Exam: Mucous Membranes Dry - Respiratory Exam Respiratory Exam: Clear to Ausculation Bilateral Additional comments: ON MV - Cardiovascular Exam Cardiovascular Exam: REGULAR RHYTHM, +S1, +S2 - GI/Abdominal Exam GI & Abdominal Exam: Soft, Normal Bowel Sounds Additional comments: PEG tube - Extremities Exam Extremities Exam: Normal Capillary Refill, Normal Inspection - Back Exam Back Exam: absent: CVA tenderness (L), CVA tenderness (R) - Neurological Exam Neurological Exam: Altered Additional comments: intubated/sedated - Skin Skin Exam: Intact Objective - Vital Signs/Intake and Output Vital Signs (last 24 hours): Temp Pulse Resp BP Pulse Ox 98.5 F 115 H 14 167/81 H 99 11/15/17 20:00 11/15/17 21:36 11/15/17 21:36 11/15/17 21:37 11/15/17 21:36 Intake and Output: 11/15/17 11/16/17 18:59 06:59 Intake Total 871.5 35 Output Total 1649 300 Balance -777.5 -265 - Medications Medications: Current Medications Acetaminophen (Tylenol 650 Mg Supp) 650 mg [place] Q6 PRN PRN Reason: Fever >100.4 F Last Admin: 11/11/17 16:28 Dose: 650 mg Albuterol/Ipratropium (Duoneb 3 Mg/0.5 Mg (3 Ml) Ud) 3 ml INH RQ6 [facility] Last Admin: 11/15/17 20:01 Dose: 3 ml Diltiazem HCl (Cardizem) 30 mg PO QID [facility] Last Admin: 11/15/17 21:46 Dose: 30 mg Heparin Sodium (Porcine) (Heparin) 5,000 units SC Q8 [facility] Last Admin: 11/15/17 21:46 Dose: 5,000 units Aztreonam 1 gm/ Sodium (Chloride) 100 mls @ 200 mls/hr IVPB Q8H [facility] PRN Reason: Protocol Last Admin: 11/15/17 17:18 Dose: 200 mls/hr Fluconazole (Diflucan Iv 100 Mg/50 Ml Ns) 50 mls @ 100 mls/hr IVPB DAILY [facility] PRN Reason: Protocol Last Admin: 11/15/17 09:47 Dose: 100 mls/hr Dexmedetomidine HCl 200 mcg/ (Sodium Chloride) 50 mls @ 2.31 mls/hr IV TITR PRN ; Protocol; 0.2 MCG/KG/HR PRN Reason: Agitation Last Admin: 11/15/17 21:46 Dose: 0.2 mcg/kg/hr, 2.31 mls/hr Insulin Glargine (Lantus) 10 unit SC HS [facility] Last Admin: 11/15/17 21:47 Dose: 10 units Insulin Human Regular (Novolin R) 0 unit SC Q6H [facility] PRN Reason: Protocol Last Admin: 11/15/17 18:35 Dose: 6 unit Isosorbide Mononitrate (Ismo) 10 mg PO BID [facility] Last Admin: 11/15/17 21:46 Dose: 10 mg Losartan Potassium (Cozaar) 50 mg PO DAILY [facility] Metoprolol Tartrate (Lopressor) 5 mg IVP Q6H PRN PRN Reason: Heart Rate <100 Last Admin: 11/15/17 16:54 Dose: 5 mg Mupirocin (Bactroban Ointment) 0 gm TOP BID [facility] Last Admin: 11/15/17 17:18 Dose: 1 applic Nystatin (Nystop Topical Powder) 0 gm TOP TID [facility] Last Admin: 11/15/17 17:18 Dose: 1 applic Pantoprazole Sodium (Protonix Ec Tab) 40 mg PO DAILY [facility] Last Admin: 11/15/17 11:56 Dose: Not Given - Labs Labs: 11/15/17 05:53 11/15/17 05:53 Assessment and Plan - Assessment and Plan (Free Text) Assessment: This is an 87 year old female with PMHx achalasia, DM, CAD, COPD, osteoarthritis who presented from the shelter for altered mental status and shortness of breath. Patient intubated and sedated. Neuro Intubated and sedated however Diprivan now discontinued Cardio Patient is off of her home medications while she is sedated If heart rate increases, IV rate control agent will be implemented as needed Pulm Vented Will continue to try to wean the patient off of ventilation Will diurese with IV Lasix 40 mg Q12H to assist in weaning the patient GI Tube feeds at goal rate Endocrine Regular ISS Q6H Accuchecks Q6H Renal Positive fluid balance Good urine output Infectious Diseases Vancomycin 1 gm Q24H Aztreonam 1 gm Q8H Fluconazole IV daily Bactroban for PEG site excoriations Nystatin topical Prophylaxis Heparin SC Q8 Pepcid 20 mg PEG daily
--- NOTE | 2017-11-15 22:20 | CP.PCM.PN ---
Subjective - Date & Time of Evaluation Date of Evaluation: 11/14/17 Time of Evaluation: 22:15 - Subjective Subjective: pt is continue on vent unable to tolerate on cpap spoke family no fever thick mucous noted continue supportive care on antibiotic on vent Objective - Vital Signs/Intake and Output Vital Signs (last 24 hours): Temp Pulse Resp BP Pulse Ox 98.5 F 115 H 14 167/81 H 99 11/15/17 20:00 11/15/17 21:36 11/15/17 21:36 11/15/17 21:37 11/15/17 21:36 Intake and Output: 11/15/17 11/16/17 18:59 06:59 Intake Total 871.5 35 Output Total 1649 300 Balance -777.5 -265 - Medications Medications: Current Medications Acetaminophen (Tylenol 650 Mg Supp) 650 mg [place] Q6 PRN PRN Reason: Fever >100.4 F Last Admin: 11/11/17 16:28 Dose: 650 mg Albuterol/Ipratropium (Duoneb 3 Mg/0.5 Mg (3 Ml) Ud) 3 ml INH RQ6 [facility] Last Admin: 11/15/17 20:01 Dose: 3 ml Diltiazem HCl (Cardizem) 30 mg PO QID [facility] Last Admin: 11/15/17 21:46 Dose: 30 mg Heparin Sodium (Porcine) (Heparin) 5,000 units SC Q8 [facility] Last Admin: 11/15/17 21:46 Dose: 5,000 units Aztreonam 1 gm/ Sodium (Chloride) 100 mls @ 200 mls/hr IVPB Q8H [facility] PRN Reason: Protocol Last Admin: 11/15/17 17:18 Dose: 200 mls/hr Fluconazole (Diflucan Iv 100 Mg/50 Ml Ns) 50 mls @ 100 mls/hr IVPB DAILY [facility] PRN Reason: Protocol Last Admin: 11/15/17 09:47 Dose: 100 mls/hr Dexmedetomidine HCl 200 mcg/ (Sodium Chloride) 50 mls @ 2.31 mls/hr IV TITR PRN ; Protocol; 0.2 MCG/KG/HR PRN Reason: Agitation Last Admin: 11/15/17 21:46 Dose: 0.2 mcg/kg/hr, 2.31 mls/hr Insulin Glargine (Lantus) 10 unit SC HS [facility] Last Admin: 11/15/17 21:47 Dose: 10 units Insulin Human Regular (Novolin R) 0 unit SC Q6H [facility] PRN Reason: Protocol Last Admin: 11/15/17 18:35 Dose: 6 unit Isosorbide Mononitrate (Ismo) 10 mg PO BID [facility] Last Admin: 11/15/17 21:46 Dose: 10 mg Losartan Potassium (Cozaar) 50 mg PO DAILY [facility] Metoprolol Tartrate (Lopressor) 5 mg IVP Q6H PRN PRN Reason: Heart Rate <100 Last Admin: 11/15/17 16:54 Dose: 5 mg Mupirocin (Bactroban Ointment) 0 gm TOP BID [facility] Last Admin: 11/15/17 17:18 Dose: 1 applic Nystatin (Nystop Topical Powder) 0 gm TOP TID [facility] Last Admin: 11/15/17 17:18 Dose: 1 applic Pantoprazole Sodium (Protonix Ec Tab) 40 mg PO DAILY [facility] Last Admin: 11/15/17 11:56 Dose: Not Given - Labs Labs: 11/15/17 05:53 11/15/17 05:53
--- NOTE | 2017-11-15 22:27 | CP.PCM.PN ---
Subjective - Date & Time of Evaluation Date of Evaluation: 11/15/17 Time of Evaluation: 22:25 - Subjective Subjective: pt is responding to stimuli on vent more drowsy and unable to do weaning good will start on precedex and plan to wean in am culture negative on antibiotic will f/u ct chest will f/u spoke to pt daughter and explained pt condition Objective - Vital Signs/Intake and Output Vital Signs (last 24 hours): Temp Pulse Resp BP Pulse Ox 98.5 F 115 H 14 167/81 H 99 11/15/17 20:00 11/15/17 21:36 11/15/17 21:36 11/15/17 21:37 11/15/17 21:36 Intake and Output: 11/15/17 11/16/17 18:59 06:59 Intake Total 871.5 35 Output Total 1649 300 Balance -777.5 -265 - Medications Medications: Current Medications Acetaminophen (Tylenol 650 Mg Supp) 650 mg [place] Q6 PRN PRN Reason: Fever >100.4 F Last Admin: 11/11/17 16:28 Dose: 650 mg Albuterol/Ipratropium (Duoneb 3 Mg/0.5 Mg (3 Ml) Ud) 3 ml INH RQ6 [facility] Last Admin: 11/15/17 20:01 Dose: 3 ml Diltiazem HCl (Cardizem) 30 mg PO QID [facility] Last Admin: 11/15/17 21:46 Dose: 30 mg Heparin Sodium (Porcine) (Heparin) 5,000 units SC Q8 [facility] Last Admin: 11/15/17 21:46 Dose: 5,000 units Aztreonam 1 gm/ Sodium (Chloride) 100 mls @ 200 mls/hr IVPB Q8H [facility] PRN Reason: Protocol Last Admin: 11/15/17 17:18 Dose: 200 mls/hr Fluconazole (Diflucan Iv 100 Mg/50 Ml Ns) 50 mls @ 100 mls/hr IVPB DAILY [facility] PRN Reason: Protocol Last Admin: 11/15/17 09:47 Dose: 100 mls/hr Dexmedetomidine HCl 200 mcg/ (Sodium Chloride) 50 mls @ 2.31 mls/hr IV TITR PRN ; Protocol; 0.2 MCG/KG/HR PRN Reason: Agitation Last Admin: 11/15/17 21:46 Dose: 0.2 mcg/kg/hr, 2.31 mls/hr Insulin Glargine (Lantus) 10 unit SC [facility] Last Admin: 11/15/17 21:47 Dose: 10 units Insulin Human Regular (Novolin R) 0 unit SC Q6H [facility] PRN Reason: Protocol Last Admin: 11/15/17 18:35 Dose: 6 unit Isosorbide Mononitrate (Ismo) 20 mg PO BID [facility] Losartan Potassium (Cozaar) 50 mg PO DAILY [facility] Metoprolol Tartrate (Lopressor) 5 mg IVP Q6H PRN PRN Reason: Heart Rate <100 Last Admin: 11/15/17 16:54 Dose: 5 mg Mupirocin (Bactroban Ointment) 0 gm TOP BID [facility] Last Admin: 11/15/17 17:18 Dose: 1 applic Nystatin (Nystop Topical Powder) 0 gm TOP TID [facility] Last Admin: 11/15/17 17:18 Dose: 1 applic Pantoprazole Sodium (Protonix Ec Tab) 40 mg PO DAILY [facility] Last Admin: 11/15/17 11:56 Dose: Not Given - Labs Labs: 11/15/17 05:53 11/15/17 05:53
[2017-11-16] MEDS: (Novolin R) Insulin Human Regular 100 units/ml vial SC SCH ×4 (00:03→17:59)
[2017-11-16] MEDS: Aztreonam 1 GM in Sodium Chloride 0.9% 100 ML IVPB SCH ×3 (01:15→18:02)
[2017-11-16] MEDS: Albuterol-Ipratrop 3 mg / 0.5 (3 ml) UD INH SCH ×4 (01:58→20:42)
[2017-11-16 05:55] LABS: ABG ALLEN TEST POS; ARTERIAL BLOOD GAS HCO3 30.1 mmol/L (21-28); ARTERIAL BLOOD GAS HEMOGLOBIN 8.1 g/dL (11.7-17.4); ARTERIAL BLOOD GAS O2 SAT 99.5 % (95-98); ARTERIAL BLOOD GAS PCO2 40 mm/Hg (35-45); ARTERIAL BLOOD GAS PH 7.49 (7.35-7.45); ARTERIAL BLOOD GAS PO2 136 mm/Hg (80-100); ARTERIAL BLOOD GAS TCO2 31.7 mmol/L (22-28)
[2017-11-16 06:23] LABS: BASO % 0.4 % (0.0-2.0); EOS # 0.2 K/uL (0.0-0.7); EOS % 1.8 % (0.0-4.0); LYMPH # 1.5 K/uL (1.0-4.3); LYMPH % 13.4 % (20.0-40.0); MEAN CELL VOLUME 90.5 fL (81.0-99.0); MEAN CORPUSCULAR HEMOGLOBIN 30.8 pg (27.0-31.0); MEAN CORPUSCULAR HGB CONC 34.1 g/dL (33.0-37.0); MEAN PLATELET VOLUME 7.7 fL (7.2-11.7); MONO # 0.9 K/uL (0.0-0.8); MONO % 7.9 % (0.0-10.0); NEUT # 8.7 K/uL (1.8-7.0); NEUT % 76.5 % (50.0-75.0); NRBC % 0.4 % (0.0-2.0); RBC 2.58 Mil/uL (3.80-5.20); WHITE BLOOD COUNT 11.4 K/uL (4.8-10.8)
[2017-11-16 06:42] LABS: ALB/GLOB RATIO 0.9 (1.0-2.1); ALBUMIN 3.2 g/dL (3.5-5.0); ALT/SGPT 47 U/L (9-52); AST/SGOT 36 U/L (14-36); BLOOD UREA NITROGEN 21 mg/dL (7-17); CALCIUM 8.1 mg/dl (8.6-10.4); GFR AFRICAN-AMERICAN > 60; GFR NON-AFRICAN AMERICAN 59
[2017-11-16] MEDS ORDERED: Magnesium Sulfate 1 gm in D5W 1 GM/100 ML BAG IVPB ONE (08:00)
--- NOTE | 2017-11-16 08:37 | CT ---
PROCEDURE: CT Chest without contrast HISTORY: lung collapse and pneumonia COMPARISON: 05/23/2016 CT thorax 11/14/2017, 11/15/2017 serial chest radiographs TECHNIQUE: Contiguous axial images were obtained through the chest without intravenous contrast enhancement. Sagittal and coronal reconstructions were performed. Radiation dose (DLP): 0.5 0.61 mGy-cm. This CT exam was performed using one or more of the following dose reduction techniques: Automated exposure control, adjustment of the mA and/or kV according to patient size, and/or use of iterative reconstruction technique. FINDINGS: LUNGS: Clear lungs. Visualized airway clear. MEDIASTINUM: Unremarkable thoracic aorta. No aneurysm. Normal sized heart. Main pulmonary artery unremarkable. No vascular congestion. No lymphadenopathy. PLEURA: No pleural fluid. No pneumothorax. BONES: No fracture. No destructive lesion. UPPER ABDOMEN: Grossly unremarkable. OTHER FINDINGS: It esophagus similar to that seen previously. Endotracheal tube in satisfactory position. Venous access catheter in satisfactory position. IMPRESSION: No active pulmonary disease. Chronic changes identified
--- NOTE | 2017-11-16 09:15 | CP.PCM.PN ---
Subjective - Date & Time of Evaluation Date of Evaluation: 11/16/17 Time of Evaluation: 07:00 - Subjective Subjective: General surgery progress note for Dr. Augusto Kelsey, PGY-1 Pt S & E at bedside. Pt intubated, sedated, not arousable to verbal or tactile stimuli. PEG tube with tube feeds running. Objective - Vital Signs/Intake and Output Vital Signs (last 24 hours): Temp Pulse Resp BP Pulse Ox 97.6 F 118 H 19 165/93 H 100 11/16/17 08:00 11/16/17 08:45 11/16/17 08:45 11/16/17 08:45 11/16/17 08:45 Intake and Output: 11/16/17 11/16/17 06:59 18:59 Intake Total 732.3 206 Output Total 1000 51 Balance -267.7 155 - Medications Medications: Current Medications Acetaminophen (Tylenol 650 Mg Supp) 650 mg [place] Q6 PRN PRN Reason: Fever >100.4 F Last Admin: 11/11/17 16:28 Dose: 650 mg Albuterol/Ipratropium (Duoneb 3 Mg/0.5 Mg (3 Ml) Ud) 3 ml INH RQ6 [facility] Last Admin: 11/16/17 07:18 Dose: 3 ml Carvedilol (Coreg) 3.125 mg PO BID [facility] Diltiazem HCl (Cardizem) 30 mg PO QID [facility] Last Admin: 11/15/17 21:46 Dose: 30 mg Heparin Sodium (Porcine) (Heparin) 5,000 units SC Q8 [facility] Last Admin: 11/16/17 06:09 Dose: 5,000 units Aztreonam 1 gm/ Sodium (Chloride) 100 mls @ 200 mls/hr IVPB Q8H [facility] PRN Reason: Protocol Last Admin: 11/16/17 01:15 Dose: 200 mls/hr Fluconazole (Diflucan Iv 100 Mg/50 Ml Ns) 50 mls @ 100 mls/hr IVPB DAILY [facility] PRN Reason: Protocol Last Admin: 11/15/17 09:47 Dose: 100 mls/hr Dexmedetomidine HCl 200 mcg/ (Sodium Chloride) 50 mls @ 2.31 mls/hr IV TITR PRN ; Protocol; 0.2 MCG/KG/HR PRN Reason: Agitation Last Titration: 11/16/17 07:08 Dose: 0 mcg/kg/hr, 0 mls/hr Insulin Glargine (Lantus) 10 unit SC HS [facility] Last Admin: 11/15/17 21:47 Dose: 10 units Insulin Human Regular (Novolin R) 0 unit SC Q6H [facility] PRN Reason: Protocol Last Admin: 11/16/17 06:09 Dose: 6 unit Isosorbide Mononitrate (Ismo) 20 mg PO BID [facility] Losartan Potassium (Cozaar) 50 mg PO DAILY [facility] Metoprolol Tartrate (Lopressor) 5 mg IVP Q6H PRN PRN Reason: Heart Rate <100 Last Admin: 11/15/17 16:54 Dose: 5 mg Mupirocin (Bactroban Ointment) 0 gm TOP BID [facility] Last Admin: 11/15/17 17:18 Dose: 1 applic Nystatin (Nystop Topical Powder) 0 gm TOP TID [facility] Last Admin: 11/15/17 17:18 Dose: 1 applic Pantoprazole Sodium (Protonix Ec Tab) 40 mg PO DAILY [facility] Last Admin: 11/15/17 11:56 Dose: Not Given - Labs Labs: 11/16/17 06:15 11/16/17 06:15 - Constitutional Appears: Non-toxic, No Acute Distress - Head Exam Head Exam: ATRAUMATIC, NORMAL INSPECTION, NORMOCEPHALIC - Eye Exam Eye Exam: absent: EOMI (does not open eyes to stimuli) - ENT Exam ENT Exam: Mucous Membranes Dry (poor dentition) Additional comments: ET tube in place - Neck Exam Additional comments: RIJ in place - Respiratory Exam Respiratory Exam: NORMAL BREATHING PATTERN (on mech vent) - Cardiovascular Exam Cardiovascular Exam: REGULAR RHYTHM, +S1, +S2 - GI/Abdominal Exam GI & Abdominal Exam: Soft. absent: Distended, Firm, Guarding Additional comments: PEG tube in place- tube feeds running. PEG tube insertion site with minimal feed leak, erythema surrounding insertion site - Extremities Exam Extremities Exam: Normal Inspection - Neurological Exam Neurological Exam: absent: Alert, Awake, Oriented x3 Additional comments: intubated - Psychiatric Exam Additional comments: intubated, not sedated, unarousable - Skin Skin Exam: Dry, Intact, Normal Color, Warm Assessment and Plan - Assessment and Plan (Free Text) Assessment: 87F w/extensive PMH including achalasia in ICU for respiratory failure, consulted for leaking PEG tube Plan: Ok to continue tube feeds Wound care nurse for ostomy care No surgical intervention at this time Maalox to PEG tube insertion site of skin Secure flange close to skin Further mgmt as per primary, ICU and consult teams Please re-consult if trach needed CR[facility] attending Laure, PGY-1
--- NOTE | 2017-11-16 09:30 | RAD ---
Chest x-ray single frontal view History: Ventilator. Comparison: 11/15/2017 Findings: Low lying endotracheal tube approximately 5 millimeters above the renata. Retraction approximately 1.5 centimeters is recommended. Right-sided venous catheter tip extending to the right atrium. Biapical pleural thickening with upper lobe granulomatous changes. Prominent diffuse increased interstitial lung markings. Right hilar prominence. Status post median sternotomy and CABG. Left-sided pacemaker. Calcification at the aortic knob. Degenerative changes in the spine and shoulders. Trace bilateral pleural effusions. Surgical clips in the upper abdomen. Impression: Low lying endotracheal tube approximately 5 millimeters above the renata. Retraction approximately 1.5 centimeters is recommended. Right-sided venous catheter tip extending to the right atrium. Biapical pleural thickening with upper lobe granulomatous changes. Prominent diffuse increased interstitial lung markings. Right hilar prominence. Status post median sternotomy and CABG. Left-sided pacemaker. Calcification at the aortic knob. Degenerative changes in the spine and shoulders. Trace bilateral pleural effusions. Surgical clips in the upper abdomen.
[2017-11-16] MEDS ORDERED: Aluminum Hydroxide/Magnesium Hydroxide Susp (30 mL) PO PRN (10:04)
[2017-11-16] MEDS: Nystatin 100,000 Units/gm Topical Pow(15 gm) TOP SCH ×3 (10:05→18:01)
[2017-11-16] MEDS ORDERED: Aluminum Hydroxide/Magnesium Hydroxide Susp (30 mL) TOP PRN (10:15)
[2017-11-16] MEDS ORDERED: Labetalol 25mg/5ml Syringe IV PRN (10:15)
[2017-11-16] MEDS: Pantoprazole 40 mg Susp UD PO SCH (10:40)
[2017-11-16] MEDS: Fluconazole IV 100mg/50 ml NS 50 ML IVPB SCH (10:41)
[2017-11-16] MEDS: MethylPREDNISolone 40 mg Vial IV SCH ×2 (10:47→17:59)
--- NOTE | 2017-11-16 13:15 | CP.CCUPN ---
<Henry Lee S - Last Filed: 11/16/17 13:10> CCU Subjective - Physician Review Subjective (Free Text): 11/12/17 18:43 Patient seen and examined. Patient is intubated and sedated. Failed CPAP trial this morning. 11/13/17 12:40 Patient seen and examined. Intubated and sedated. Tolerated CPAP for almost two hours today however was breathing rapidly soon after. 11/14/17 10:59 Patient seen and examined. She is intubated and sedated. Patient was unable to tolerate CPAP trial today. 11/15/17 12:40 Patient seen and examined. Patient still intubated and sedated. Sedation was removed. Diuretics started in order to assist in weaning the patient off of ventilation. 11/16/17 13:10 Patient seen and examined. Intubated. Failed weaning trial this morning. Reviewing the I/O, patient has negative fluid balance at the moment. Continuing diuresis to aid in extubation. CCU Objective - Vital Signs / Intake & Output Vital Signs (Last 4 hours): Vital Signs Pulse Resp BP Pulse Ox 11/16/17 11:41 97 H 16 101/57 L 100 11/16/17 11:10 93 H 16 93/52 L 11/16/17 10:40 92 H 16 89/46 L 11/16/17 10:10 91 H 16 89/46 L 100 11/16/17 09:57 110 H 20 108/56 L 100 11/16/17 09:50 96 H 14 75/34 L 100 Intake and Output (Last 8hrs): Intake & Output 11/15/17 11/16/17 11/16/17 22:59 06:59 14:59 Intake Total 372.3 600.0 426 Output Total 1152 600 83 Balance -779.7 0 343 Weight 102 lb Intake: IV 25 1 Intake, IV Amount 102.3 115.0 250 Right Distal Port 100 Internal Jugular Right Medial Port 100 250 Internal Jugular Right Proximal Port 2.3 15.0 Internal Jugular Tube Feeding 210 280 175 Other 60 180 Output: Urine 1152 600 83 Urethral (Gregory) 1152 600 83 Other: # Bowel Movements 0 - Physical Exam Head: Positive for: Atraumatic, Normocephalic Pupils: Positive for: PERRL Conjunctiva: Positive for: Normal Mouth: Positive for: Dry, Other (endotracheal tube in place) Neck: Positive for: Other (Right IJ TLC in place) Respiratory/Chest: Positive for: Decreased Breath Sounds, Other (vented) Cardiovascular: Positive for: Normal S1, S2, Tachycardic Abdomen: Positive for: Distention (but soft), Normal Bowel Sounds, Feeding Tubes (PEG tube), Other (excoriations around PEG tube) Upper Extremity: Positive for: Normal Inspection Lower Extremity: Positive for: Normal Inspection Skin: Positive for: Warm, Dry Psychiatric: Positive for: Other (intubated/sedated) - Medications Active Medications: Active Medications Generic Name Dose Route Start Last Admin Trade Name Freq PRN Reason Stop Dose Admin Acetaminophen 650 mg 11/10/17 10:52 11/11/17 16:28 Tylenol 650 Mg Supp UT 650 mg Q6 PRN Administration Fever >100.4 F Al Hydrox/Mg Hydrox/Simethicone 30 ml 11/16/17 10:15 Maalox 30 Ml TOP Q6H PRN Other Albuterol/Ipratropium 3 ml 11/10/17 14:00 11/16/17 07:18 Duoneb 3 Mg/0.5 Mg (3 Ml) Ud INH 3 ml RQ6 JUDY Administration Furosemide 40 mg 11/16/17 10:30 11/16/17 10:40 Lasix IVP 40 mg Q12H JUDY Administration Heparin Sodium (Porcine) 5,000 units 11/10/17 06:00 11/16/17 06:09 Heparin SC 5,000 units Q8 JUDY Administration Aztreonam 1 gm/ Sodium 100 mls @ 200 mls/hr 11/10/17 09:30 11/16/17 10:03 Chloride IVPB 200 mls/hr Q8H JUDY Administration Protocol Fluconazole 50 mls @ 100 mls/hr 11/12/17 13:00 11/16/17 10:41 Diflucan Iv 100 Mg/50 Ml Ns IVPB 100 mls/hr DAILY JUDY Administration Protocol Vancomycin/Sodium Chloride 1 gm in 200 mls @ 133 mls/hr 11/16/17 13:00 Vancomycin 1 Gm/Ns 200 Ml IVPB 11/21/17 13:01 Q12H JUDY Protocol Insulin Glargine 10 unit 11/15/17 22:00 11/15/17 21:47 Lantus SC 10 units HS JUDY Administration Insulin Human Regular 0 unit 11/10/17 18:00 11/16/17 11:46 Novolin R SC 8 unit Q6H JUDY Administration Protocol Labetalol HCl 20 mg 11/16/17 10:15 Trandate IV Q6H PRN SBP>160 or HR>110 Methylprednisolone 40 mg 11/16/17 10:30 11/16/17 10:47 Solu-Medrol IV 40 mg Q8H JUDY Administration Mupirocin 0 gm 11/12/17 10:15 11/16/17 10:05 Bactroban Ointment TOP 1 applic BID JUDY Administration Nystatin 0 gm 11/12/17 14:00 11/16/17 10:05 Nystop Topical Powder TOP 1 applic TID JUDY Administration Pantoprazole Sodium 40 mg 11/16/17 10:45 11/16/17 10:40 Protonix Susp PO 40 mg 0600 JUDY Administration - Patient Studies Lab Studies: Microbiology Studies 11/15/17 Unknown Gram Stain - Final Trachasp 11/11/17 16:45 Blood Culture - Preliminary Blood-Thru Central Line NO GROWTH AFTER 4 DAYS 11/11/17 17:00 Blood Culture - Preliminary Blood-Thru Central Line NO GROWTH AFTER 4 DAYS 11/09/17 21:00 Blood Culture - Final Blood NO GROWTH AFTER 5 DAYS Gram Stain - Final TEST NOT PERFORMED 11/09/17 21:30 Blood Culture - Final Blood NO GROWTH AFTER 5 DAYS Gram Stain - Final TEST NOT PERFORMED Lab Studies 11/16/17 11/16/17 11/16/17 Range/Units 12:26 11:22 06:15 WBC (4.8-10.8) K/uL RBC (3.80-5.20) Mil/uL Hgb (11.0-16.0) g/dL Hct (34.0-47.0) % MCV (81.0-99.0) fL MCH (27.0-31.0) pg MCHC (33.0-37.0) g/dL RDW (11.5-14.5) % Plt Count (130-400) K/uL MPV (7.2-11.7) fL Neut % (Auto) (50.0-75.0) % Lymph % (Auto) (20.0-40.0) % Mclean % (Auto) (0.0-10.0) % Eos % (Auto) (0.0-4.0) % Baso % (Auto) (0.0-2.0) % Neut # (Auto) (1.8-7.0) K/uL Lymph # (Auto) (1.0-4.3) K/uL Mclean # (Auto) (0.0-0.8) K/uL Eos # (Auto) (0.0-0.7) K/uL Baso # (Auto) (0.0-0.2) K/uL Puncture Site pCO2 (35-45) mm/Hg pO2 (80-100) mm/Hg HCO3 (21-28) mmol/L ABG pH (7.35-7.45) ABG Total CO2 (22-28) mmol/L ABG O2 Saturation (95-98) % ABG Base Excess (-2.0-3.0) mmol/L ABG Hemoglobin (11.7-17.4) g/dL ABG Carboxyhemoglobin (0.5-1.5) % POC ABG HHb (Measured) (0.0-5.0) % ABG Methemoglobin (0.0-3.0) % Scout Test A-a O2 Difference mm/Hg Respiratory Index Hgb O2 Saturation (95.0-98.0) % Vent Mode Mechanical Rate FiO2 % Tidal Volume PEEP Sodium 141 (132-148) mmol/L Potassium 3.7 (3.6-5.2) mmol/L Chloride 97 L (98-107) mmol/L Carbon Dioxide 29 (22-30) mmol/L Anion Gap 19 (10-20) BUN 21 H (7-17) mg/dL Creatinine 0.9 (0.7-1.2) mg/dL Est GFR ( Amer) > 60 Est GFR (Non-Af Amer) 59 POC Glucose (mg/dL) 302 H (65-110) mg/dL Random Glucose 260 H (65-105) mg/dL Calcium 8.1 L (8.6-10.4) mg/dl Phosphorus 3.6 (2.5-4.5) mg/dL Magnesium 1.6 (1.6-2.3) mg/dL Total Bilirubin 0.4 (0.2-1.3) mg/dL AST 36 D (14-36) U/L ALT 47 (9-52) U/L Alkaline Phosphatase 64 (38-126) U/L Total Protein 6.7 (6.3-8.3) g/dL Albumin 3.2 L (3.5-5.0) g/dL Globulin 3.6 (2.2-3.9) gm/dL Albumin/Globulin Ratio 0.9 L (1.0-2.1) Vancomycin Trough 17.1 H (5.0-10.0) ug/mL 11/16/17 11/16/17 11/16/17 Range/Units 06:15 06:04 05:25 WBC 11.4 H (4.8-10.8) K/uL RBC 2.58 L (3.80-5.20) Mil/uL Hgb 8.0 L (11.0-16.0) g/dL Hct 23.4 L (34.0-47.0) % MCV 90.5 (81.0-99.0) fL MCH 30.8 (27.0-31.0) pg MCHC 34.1 (33.0-37.0) g/dL RDW 13.0 (11.5-14.5) % Plt Count 363 (130-400) K/uL MPV 7.7 (7.2-11.7) fL Neut % (Auto) 76.5 H (50.0-75.0) % Lymph % (Auto) 13.4 L (20.0-40.0) % Mclean % (Auto) 7.9 (0.0-10.0) % Eos % (Auto) 1.8 (0.0-4.0) % Baso % (Auto) 0.4 (0.0-2.0) % Neut # (Auto) 8.7 H (1.8-7.0) K/uL Lymph # (Auto) 1.5 (1.0-4.3) K/uL Mclean # (Auto) 0.9 H (0.0-0.8) K/uL Eos # (Auto) 0.2 (0.0-0.7) K/uL Baso # (Auto) 0.0 (0.0-0.2) K/uL Puncture Site Rr pCO2 40 (35-45) mm/Hg pO2 136 H (80-100) mm/Hg HCO3 30.1 H (21-28) mmol/L ABG pH 7.49 H (7.35-7.45) ABG Total CO2 31.7 H (22-28) mmol/L ABG O2 Saturation 99.5 H (95-98) % ABG Base Excess 6.6 H (-2.0-3.0) mmol/L ABG Hemoglobin 8.1 L (11.7-17.4) g/dL ABG Carboxyhemoglobin 1.6 H (0.5-1.5) % POC ABG HHb (Measured) 0.5 (0.0-5.0) % ABG Methemoglobin 0.9 (0.0-3.0) % Scout Test Pos A-a O2 Difference 99.0 mm/Hg Respiratory Index 0.7 Hgb O2 Saturation 97.0 (95.0-98.0) % Vent Mode Prvc Mechanical Rate 14 FiO2 40.0 % Tidal Volume 400 PEEP 5 Sodium (132-148) mmol/L Potassium (3.6-5.2) mmol/L Chloride (98-107) mmol/L Carbon Dioxide (22-30) mmol/L Anion Gap (10-20) BUN (7-17) mg/dL Creatinine (0.7-1.2) mg/dL Est GFR ( Amer) Est GFR (Non-Af Amer) POC Glucose (mg/dL) 299 H (65-110) mg/dL Random Glucose (65-105) mg/dL Calcium (8.6-10.4) mg/dl Phosphorus (2.5-4.5) mg/dL Magnesium (1.6-2.3) mg/dL Total Bilirubin (0.2-1.3) mg/dL AST (14-36) U/L ALT (9-52) U/L Alkaline Phosphatase (38-126) U/L Total Protein (6.3-8.3) g/dL Albumin (3.5-5.0) g/dL Globulin (2.2-3.9) gm/dL Albumin/Globulin Ratio (1.0-2.1) Vancomycin Trough (5.0-10.0) ug/mL 11/15/17 11/15/17 Range/Units 23:47 17:53 WBC (4.8-10.8) K/uL RBC (3.80-5.20) Mil/uL Hgb (11.0-16.0) g/dL Hct (34.0-47.0) % MCV (81.0-99.0) fL MCH (27.0-31.0) pg MCHC (33.0-37.0) g/dL RDW (11.5-14.5) % Plt Count (130-400) K/uL MPV (7.2-11.7) fL Neut % (Auto) (50.0-75.0) % Lymph % (Auto) (20.0-40.0) % Mclean % (Auto) (0.0-10.0) % Eos % (Auto) (0.0-4.0) % Baso % (Auto) (0.0-2.0) % Neut # (Auto) (1.8-7.0) K/uL Lymph # (Auto) (1.0-4.3) K/uL Mclean # (Auto) (0.0-0.8) K/uL Eos # (Auto) (0.0-0.7) K/uL Baso # (Auto) (0.0-0.2) K/uL Puncture Site pCO2 (35-45) mm/Hg pO2 (80-100) mm/Hg HCO3 (21-28) mmol/L ABG pH (7.35-7.45) ABG Total CO2 (22-28) mmol/L ABG O2 Saturation (95-98) % ABG Base Excess (-2.0-3.0) mmol/L ABG Hemoglobin (11.7-17.4) g/dL ABG Carboxyhemoglobin (0.5-1.5) % POC ABG HHb (Measured) (0.0-5.0) % ABG Methemoglobin (0.0-3.0) % Scout Test A-a O2 Difference mm/Hg Respiratory Index Hgb O2 Saturation (95.0-98.0) % Vent Mode Mechanical Rate FiO2 % Tidal Volume PEEP Sodium (132-148) mmol/L Potassium (3.6-5.2) mmol/L Chloride (98-107) mmol/L Carbon Dioxide (22-30) mmol/L Anion Gap (10-20) BUN (7-17) mg/dL Creatinine (0.7-1.2) mg/dL Est GFR ( Amer) Est GFR (Non-Af Amer) POC Glucose (mg/dL) 199 H 278 H (65-110) mg/dL Random Glucose (65-105) mg/dL Calcium (8.6-10.4) mg/dl Phosphorus (2.5-4.5) mg/dL Magnesium (1.6-2.3) mg/dL Total Bilirubin (0.2-1.3) mg/dL AST (14-36) U/L ALT (9-52) U/L Alkaline Phosphatase (38-126) U/L Total Protein (6.3-8.3) g/dL Albumin (3.5-5.0) g/dL Globulin (2.2-3.9) gm/dL Albumin/Globulin Ratio (1.0-2.1) Vancomycin Trough (5.0-10.0) ug/mL Laboratory Results - last 24 hr 11/15/17 11/15/17 11/16/17 17:53 23:47 05:25 WBC RBC Hgb Hct MCV MCH MCHC RDW Plt Count MPV Neut % (Auto) Lymph % (Auto) Mclean % (Auto) Eos % (Auto) Baso % (Auto) Neut # (Auto) Lymph # (Auto) Mclean # (Auto) Eos # (Auto) Baso # (Auto) Puncture Site Rr pCO2 40 pO2 136 H HCO3 30.1 H ABG pH 7.49 H ABG Total CO2 31.7 H ABG O2 Saturation 99.5 H ABG Base Excess 6.6 H ABG Hemoglobin 8.1 L ABG Carboxyhemoglobin 1.6 H POC ABG HHb (Measured) 0.5 ABG Methemoglobin 0.9 Scout Test Pos A-a O2 Difference 99.0 Respiratory Index 0.7 Hgb O2 Saturation 97.0 Vent Mode Prvc Mechanical Rate 14 FiO2 40.0 Tidal Volume 400 PEEP 5 Sodium Potassium Chloride Carbon Dioxide Anion Gap BUN Creatinine Est GFR ( Amer) Est GFR (Non-Af Amer) POC Glucose (mg/dL) 278 H 199 H Random Glucose Calcium Phosphorus Magnesium Total Bilirubin AST ALT Alkaline Phosphatase Total Protein Albumin Globulin Albumin/Globulin Ratio Vancomycin Trough 11/16/17 11/16/17 11/16/17 06:04 06:15 06:15 WBC 11.4 H RBC 2.58 L Hgb 8.0 L Hct 23.4 L MCV 90.5 MCH 30.8 MCHC 34.1 RDW 13.0 Plt Count 363 MPV 7.7 Neut % (Auto) 76.5 H Lymph % (Auto) 13.4 L Mclean % (Auto) 7.9 Eos % (Auto) 1.8 Baso % (Auto) 0.4 Neut # (Auto) 8.7 H Lymph # (Auto) 1.5 Mclean # (Auto) 0.9 H Eos # (Auto) 0.2 Baso # (Auto) 0.0 Puncture Site pCO2 pO2 HCO3 ABG pH ABG Total CO2 ABG O2 Saturation ABG Base Excess ABG Hemoglobin ABG Carboxyhemoglobin POC ABG HHb (Measured) ABG Methemoglobin Scout Test A-a O2 Difference Respiratory Index Hgb O2 Saturation Vent Mode Mechanical Rate FiO2 Tidal Volume PEEP Sodium 141 Potassium 3.7 Chloride 97 L Carbon Dioxide 29 Anion Gap 19 BUN 21 H Creatinine 0.9 Est GFR ( Amer) > 60 Est GFR (Non-Af Amer) 59 POC Glucose (mg/dL) 299 H Random Glucose 260 H Calcium 8.1 L Phosphorus 3.6 Magnesium 1.6 Total Bilirubin 0.4 AST 36 D ALT 47 Alkaline Phosphatase 64 Total Protein 6.7 Albumin 3.2 L Globulin 3.6 Albumin/Globulin Ratio 0.9 L Vancomycin Trough 11/16/17 11/16/17 11:22 12:26 WBC RBC Hgb Hct MCV MCH MCHC RDW Plt Count MPV Neut % (Auto) Lymph % (Auto) Mclean % (Auto) Eos % (Auto) Baso % (Auto) Neut # (Auto) Lymph # (Auto) Mclean # (Auto) Eos # (Auto) Baso # (Auto) Puncture Site pCO2 pO2 HCO3 ABG pH ABG Total CO2 ABG O2 Saturation ABG Base Excess ABG Hemoglobin ABG Carboxyhemoglobin POC ABG HHb (Measured) ABG Methemoglobin Scout Test A-a O2 Difference Respiratory Index Hgb O2 Saturation Vent Mode Mechanical Rate FiO2 Tidal Volume PEEP Sodium Potassium Chloride Carbon Dioxide Anion Gap BUN Creatinine Est GFR ( Amer) Est GFR (Non-Af Amer) POC Glucose (mg/dL) 302 H Random Glucose Calcium Phosphorus Magnesium Total Bilirubin AST ALT Alkaline Phosphatase Total Protein Albumin Globulin Albumin/Globulin Ratio Vancomycin Trough 17.1 H Fingerstick Blood Sugar Results: 302 Critical Care Progress Note - Nutrition Nutrition: Nutrition Category Date Time Status NPO Diet [DIET] Diets 11/09/17 Breakfast Active Assessment/Plan - Assessment and Plan (Free Text) Assessment: This is an 87 year old female with PMHx achalasia, DM, CAD, COPD, osteoarthritis who presented from the residential for altered mental status and shortness of breath. Patient intubated and sedated. Patient being treated for MSSA pneumonia and Klebsiella PEG site infection. Patient has failed multiple weaning trials. Diuresing patient to aid in weaning. If weaning continues failing, tracheostomy will need to be considered. Neuro Intubated and now off of sedation Cardio Assessments: Labile blood pressure and heart rate, History of CAD Patient is off of her home medications while she is sedated Labetalol 20 mg IV prn SBP>160 or HR>110 Pulm Assessment: MSSA pneumonia, ventilator dependent respiratory failure, History of COPD Vented Will continue to try to wean the patient off of ventilation Lasix 40 mg IV Q12H to assist in weaning the patient Solumedrol 40 mg IV Q8H GI Tube feeds at goal rate Endocrine Assessment: DM Regular ISS Q6H Accuchecks Q6H Renal Negative fluid balance Good urine output Continue diuresis Infectious Diseases Assessments: MSSA pneumonia and Klebsiella PEG site infection Vancomycin 1 gm Q24H Aztreonam 1 gm Q8H Fluconazole IV daily Bactroban for PEG site excoriations Nystatin topical Prophylaxis Heparin SC Q8 Protonix 40 mg suspension PEG daily Per surgery, no need for intervention for PEG site leak--secure flange close to skin Discussed with Dr. Anderson <Travon Anderson - Last Filed: 11/16/17 15:48> CCU Objective - Vital Signs / Intake & Output Vital Signs (Last 4 hours): Vital Signs Temp Pulse Resp BP Pulse Ox 11/16/17 13:11 109 H 17 155/73 H 96 11/16/17 12:40 94 H 16 85/44 L 99 11/16/17 12:11 112 H 14 99/56 L 99 11/16/17 12:00 97.4 F L 11/16/17 11:41 97 H 16 101/57 L 100 11/16/17 11:10 93 H 16 93/52 L Intake and Output (Last 8hrs): Intake & Output 11/16/17 11/16/17 11/16/17 06:59 14:59 22:59 Intake Total 600.0 496 Output Total 600 449 Balance 0 47 Weight 102 lb Intake: IV 25 1 Intake, IV Amount 115.0 250 Right Medial Port 100 250 Internal Jugular Right Proximal Port 15.0 Internal Jugular Tube Feeding 280 245 Other 180 Output: Urine 600 449 Urethral (Gregory) 600 449 - Medications Active Medications: Active Medications Generic Name Dose Route Start Last Admin Trade Name Freq PRN Reason Stop Dose Admin Acetaminophen 650 mg 11/10/17 10:52 11/11/17 16:28 Tylenol 650 Mg Supp UT 650 mg Q6 PRN Administration Fever >100.4 F Al Hydrox/Mg Hydrox/Simethicone 30 ml 11/16/17 10:15 Maalox 30 Ml TOP Q6H PRN Other Albuterol/Ipratropium 3 ml 11/10/17 14:00 11/16/17 13:24 Duoneb 3 Mg/0.5 Mg (3 Ml) Ud INH 3 ml RQ6 JUDY Administration Furosemide 40 mg 11/16/17 10:30 11/16/17 10:40 Lasix IVP 40 mg Q12H JUDY Administration Heparin Sodium (Porcine) 5,000 units 11/10/17 06:00 11/16/17 14:15 Heparin SC 5,000 units Q8 JUDY Administration Aztreonam 1 gm/ Sodium 100 mls @ 200 mls/hr 11/10/17 09:30 11/16/17 10:03 Chloride IVPB 200 mls/hr Q8H JUDY Administration Protocol Fluconazole 50 mls @ 100 mls/hr 11/12/17 13:00 11/16/17 10:41 Diflucan Iv 100 Mg/50 Ml Ns IVPB 100 mls/hr DAILY JUDY Administration Protocol Vancomycin/Sodium Chloride 1 gm in 200 mls @ 133 mls/hr 11/16/17 13:00 14:55 Vancomycin 1 Gm/Ns 200 Ml IVPB 11/21/17 13:01 Not Given Q12H JUDY Protocol Insulin Glargine 10 unit 11/15/17 22:00 11/15/17 21:47 Lantus SC 10 units HS JUDY Administration Insulin Human Regular 0 unit 11/10/17 18:00 11/16/17 11:46 Novolin R SC 8 unit Q6H JUDY Administration Protocol Labetalol HCl 20 mg 11/16/17 10:15 11/16/17 14:39 Trandate IV 20 mg Q6H PRN Administration SBP>160 or HR>110 Methylprednisolone 40 mg 11/16/17 10:30 11/16/17 10:47 Solu-Medrol IV 40 mg Q8H JUDY Administration Mupirocin 0 gm 11/12/17 10:15 11/16/17 10:05 Bactroban Ointment TOP 1 applic BID JUDY Administration Nystatin 0 gm 11/12/17 14:00 11/16/17 14:30 Nystop Topical Powder TOP 1 applic TID JUDY Administration Pantoprazole Sodium 40 mg 11/16/17 10:45 11/16/17 10:40 Protonix Susp PO 40 mg 0600 JUDY Administration - Patient Studies Lab Studies: Microbiology Studies 11/15/17 Unknown Gram Stain - Final Trachasp Sputum Culture - Preliminary Gram Positive Cocci 11/11/17 16:45 Blood Culture - Preliminary Blood-Thru Central Line NO GROWTH AFTER 4 DAYS 11/11/17 17:00 Blood Culture - Preliminary Blood-Thru Central Line NO GROWTH AFTER 4 DAYS Lab Studies 11/16/17 11/16/17 11/16/17 Range/Units 12:26 11:22 06:15 WBC (4.8-10.8) K/uL RBC (3.80-5.20) Mil/uL Hgb (11.0-16.0) g/dL Hct (34.0-47.0) % MCV (81.0-99.0) fL MCH (27.0-31.0) pg MCHC (33.0-37.0) g/dL RDW (11.5-14.5) % Plt Count (130-400) K/uL MPV (7.2-11.7) fL Neut % (Auto) (50.0-75.0) % Lymph % (Auto) (20.0-40.0) % Mclean % (Auto) (0.0-10.0) % Eos % (Auto) (0.0-4.0) % Baso % (Auto) (0.0-2.0) % Neut # (Auto) (1.8-7.0) K/uL Lymph # (Auto) (1.0-4.3) K/uL Mclean # (Auto) (0.0-0.8) K/uL Eos # (Auto) (0.0-0.7) K/uL Baso # (Auto) (0.0-0.2) K/uL Puncture Site pCO2 (35-45) mm/Hg pO2 (80-100) mm/Hg HCO3 (21-28) mmol/L ABG pH (7.35-7.45) ABG Total CO2 (22-28) mmol/L ABG O2 Saturation (95-98) % ABG Base Excess (-2.0-3.0) mmol/L ABG Hemoglobin (11.7-17.4) g/dL ABG Carboxyhemoglobin (0.5-1.5) % POC ABG HHb (Measured) (0.0-5.0) % ABG Methemoglobin (0.0-3.0) % Scout Test A-a O2 Difference mm/Hg Respiratory Index Hgb O2 Saturation (95.0-98.0) % Vent Mode Mechanical Rate FiO2 % Tidal Volume PEEP Sodium 141 (132-148) mmol/L Potassium 3.7 (3.6-5.2) mmol/L Chloride 97 L (98-107) mmol/L Carbon Dioxide 29 (22-30) mmol/L Anion Gap 19 (10-20) BUN 21 H (7-17) mg/dL Creatinine 0.9 (0.7-1.2) mg/dL Est GFR ( Amer) > 60 Est GFR (Non-Af Amer) 59 POC Glucose (mg/dL) 302 H (65-110) mg/dL Random Glucose 260 H (65-105) mg/dL Calcium 8.1 L (8.6-10.4) mg/dl Phosphorus 3.6 (2.5-4.5) mg/dL Magnesium 1.6 (1.6-2.3) mg/dL Total Bilirubin 0.4 (0.2-1.3) mg/dL AST 36 D (14-36) U/L ALT 47 (9-52) U/L Alkaline Phosphatase 64 (38-126) U/L Total Protein 6.7 (6.3-8.3) g/dL Albumin 3.2 L (3.5-5.0) g/dL Globulin 3.6 (2.2-3.9) gm/dL Albumin/Globulin Ratio 0.9 L (1.0-2.1) Vancomycin Trough 17.1 H (5.0-10.0) ug/mL 11/16/17 11/16/17 11/16/17 Range/Units 06:15 06:04 05:25 WBC 11.4 H (4.8-10.8) K/uL RBC 2.58 L (3.80-5.20) Mil/uL Hgb 8.0 L (11.0-16.0) g/dL Hct 23.4 L (34.0-47.0) % MCV 90.5 (81.0-99.0) fL MCH 30.8 (27.0-31.0) pg MCHC 34.1 (33.0-37.0) g/dL RDW 13.0 (11.5-14.5) % Plt Count 363 (130-400) K/uL MPV 7.7 (7.2-11.7) fL Neut % (Auto) 76.5 H (50.0-75.0) % Lymph % (Auto) 13.4 L (20.0-40.0) % Mclean % (Auto) 7.9 (0.0-10.0) % Eos % (Auto) 1.8 (0.0-4.0) % Baso % (Auto) 0.4 (0.0-2.0) % Neut # (Auto) 8.7 H (1.8-7.0) K/uL Lymph # (Auto) 1.5 (1.0-4.3) K/uL Mclean # (Auto) 0.9 H (0.0-0.8) K/uL Eos # (Auto) 0.2 (0.0-0.7) K/uL Baso # (Auto) 0.0 (0.0-0.2) K/uL Puncture Site Rr pCO2 40 (35-45) mm/Hg pO2 136 H (80-100) mm/Hg HCO3 30.1 H (21-28) mmol/L ABG pH 7.49 H (7.35-7.45) ABG Total CO2 31.7 H (22-28) mmol/L ABG O2 Saturation 99.5 H (95-98) % ABG Base Excess 6.6 H (-2.0-3.0) mmol/L ABG Hemoglobin 8.1 L (11.7-17.4) g/dL ABG Carboxyhemoglobin 1.6 H (0.5-1.5) % POC ABG HHb (Measured) 0.5 (0.0-5.0) % ABG Methemoglobin 0.9 (0.0-3.0) % Scout Test Pos A-a O2 Difference 99.0 mm/Hg Respiratory Index 0.7 Hgb O2 Saturation 97.0 (95.0-98.0) % Vent Mode Prvc Mechanical Rate 14 FiO2 40.0 % Tidal Volume 400 PEEP 5 Sodium (132-148) mmol/L Potassium (3.6-5.2) mmol/L Chloride (98-107) mmol/L Carbon Dioxide (22-30) mmol/L Anion Gap (10-20) BUN (7-17) mg/dL Creatinine (0.7-1.2) mg/dL Est GFR ( Amer) Est GFR (Non-Af Amer) POC Glucose (mg/dL) 299 H (65-110) mg/dL Random Glucose (65-105) mg/dL Calcium (8.6-10.4) mg/dl Phosphorus (2.5-4.5) mg/dL Magnesium (1.6-2.3) mg/dL Total Bilirubin (0.2-1.3) mg/dL AST (14-36) U/L ALT (9-52) U/L Alkaline Phosphatase (38-126) U/L Total Protein (6.3-8.3) g/dL Albumin (3.5-5.0) g/dL Globulin (2.2-3.9) gm/dL Albumin/Globulin Ratio (1.0-2.1) Vancomycin Trough (5.0-10.0) ug/mL 11/15/17 11/15/17 Range/Units 23:47 17:53 WBC (4.8-10.8) K/uL RBC (3.80-5.20) Mil/uL Hgb (11.0-16.0) g/dL Hct (34.0-47.0) % MCV (81.0-99.0) fL MCH (27.0-31.0) pg MCHC (33.0-37.0) g/dL RDW (11.5-14.5) % Plt Count (130-400) K/uL MPV (7.2-11.7) fL Neut % (Auto) (50.0-75.0) % Lymph % (Auto) (20.0-40.0) % Mclean % (Auto) (0.0-10.0) % Eos % (Auto) (0.0-4.0) % Baso % (Auto) (0.0-2.0) % Neut # (Auto) (1.8-7.0) K/uL Lymph # (Auto) (1.0-4.3) K/uL Mclean # (Auto) (0.0-0.8) K/uL Eos # (Auto) (0.0-0.7) K/uL Baso # (Auto) (0.0-0.2) K/uL Puncture Site pCO2 (35-45) mm/Hg pO2 (80-100) mm/Hg HCO3 (21-28) mmol/L ABG pH (7.35-7.45) ABG Total CO2 (22-28) mmol/L ABG O2 Saturation (95-98) % ABG Base Excess (-2.0-3.0) mmol/L ABG Hemoglobin (11.7-17.4) g/dL ABG Carboxyhemoglobin (0.5-1.5) % POC ABG HHb (Measured) (0.0-5.0) % ABG Methemoglobin (0.0-3.0) % Scout Test A-a O2 Difference mm/Hg Respiratory Index Hgb O2 Saturation (95.0-98.0) % Vent Mode Mechanical Rate FiO2 % Tidal Volume PEEP Sodium (132-148) mmol/L Potassium (3.6-5.2) mmol/L Chloride (98-107) mmol/L Carbon Dioxide (22-30) mmol/L Anion Gap (10-20) BUN (7-17) mg/dL Creatinine (0.7-1.2) mg/dL Est GFR ( Amer) Est GFR (Non-Af Amer) POC Glucose (mg/dL) 199 H 278 H (65-110) mg/dL Random Glucose (65-105) mg/dL Calcium (8.6-10.4) mg/dl Phosphorus (2.5-4.5) mg/dL Magnesium (1.6-2.3) mg/dL Total Bilirubin (0.2-1.3) mg/dL AST (14-36) U/L ALT (9-52) U/L Alkaline Phosphatase (38-126) U/L Total Protein (6.3-8.3) g/dL Albumin (3.5-5.0) g/dL Globulin (2.2-3.9) gm/dL Albumin/Globulin Ratio (1.0-2.1) Vancomycin Trough (5.0-10.0) ug/mL Laboratory Results - last 24 hr 11/15/17 11/15/17 11/16/17 17:53 23:47 05:25 WBC RBC Hgb Hct MCV MCH MCHC RDW Plt Count MPV Neut % (Auto) Lymph % (Auto) Mclean % (Auto) Eos % (Auto) Baso % (Auto) Neut # (Auto) Lymph # (Auto) Mclean # (Auto) Eos # (Auto) Baso # (Auto) Puncture Site Rr pCO2 40 pO2 136 H HCO3 30.1 H ABG pH 7.49 H ABG Total CO2 31.7 H ABG O2 Saturation 99.5 H ABG Base Excess 6.6 H ABG Hemoglobin 8.1 L ABG Carboxyhemoglobin 1.6 H POC ABG HHb (Measured) 0.5 ABG Methemoglobin 0.9 Scout Test Pos A-a O2 Difference 99.0 Respiratory Index 0.7 Hgb O2 Saturation 97.0 Vent Mode Prvc Mechanical Rate 14 FiO2 40.0 Tidal Volume 400 PEEP 5 Sodium Potassium Chloride Carbon Dioxide Anion Gap BUN Creatinine Est GFR ( Amer) Est GFR (Non-Af Amer) POC Glucose (mg/dL) 278 H 199 H Random Glucose Calcium Phosphorus Magnesium Total Bilirubin AST ALT Alkaline Phosphatase Total Protein Albumin Globulin Albumin/Globulin Ratio Vancomycin Trough 11/16/17 11/16/17 11/16/17 06:04 06:15 06:15 WBC 11.4 H RBC 2.58 L Hgb 8.0 L Hct 23.4 L MCV 90.5 MCH 30.8 MCHC 34.1 RDW 13.0 Plt Count 363 MPV 7.7 Neut % (Auto) 76.5 H Lymph % (Auto) 13.4 L Mclean % (Auto) 7.9 Eos % (Auto) 1.8 Baso % (Auto) 0.4 Neut # (Auto) 8.7 H Lymph # (Auto) 1.5 Mclean # (Auto) 0.9 H Eos # (Auto) 0.2 Baso # (Auto) 0.0 Puncture Site pCO2 pO2 HCO3 ABG pH ABG Total CO2 ABG O2 Saturation ABG Base Excess ABG Hemoglobin ABG Carboxyhemoglobin POC ABG HHb (Measured) ABG Methemoglobin Scout Test A-a O2 Difference Respiratory Index Hgb O2 Saturation Vent Mode Mechanical Rate FiO2 Tidal Volume PEEP Sodium 141 Potassium 3.7 Chloride 97 L Carbon Dioxide 29 Anion Gap 19 BUN 21 H Creatinine 0.9 Est GFR ( Amer) > 60 Est GFR (Non-Af Amer) 59 POC Glucose (mg/dL) 299 H Random Glucose 260 H Calcium 8.1 L Phosphorus 3.6 Magnesium 1.6 Total Bilirubin 0.4 AST 36 D ALT 47 Alkaline Phosphatase 64 Total Protein 6.7 Albumin 3.2 L Globulin 3.6 Albumin/Globulin Ratio 0.9 L Vancomycin Trough 11/16/17 11/16/17 11:22 12:26 WBC RBC Hgb Hct MCV M[facility] RDW Plt Count MPV Neut % (Auto) Lymph % (Auto) Mclean % (Auto) Eos % (Auto) Baso % (Auto) Neut # (Auto) Lymph # (Auto) Mclean # (Auto) Eos # (Auto) Baso # (Auto) Puncture Site pCO2 pO2 HCO3 ABG pH ABG Total CO2 ABG O2 Saturation ABG Base Excess ABG Hemoglobin ABG Carboxyhemoglobin POC ABG HHb (Measured) ABG Methemoglobin Scout Test A-a O2 Difference Respiratory Index Hgb O2 Saturation Vent Mode Mechanical Rate FiO2 Tidal Volume PEEP Sodium Potassium Chloride Carbon Dioxide Anion Gap BUN Creatinine Est GFR ( Amer) Est GFR (Non-Af Amer) POC Glucose (mg/dL) 302 H Random Glucose Calcium Phosphorus Magnesium Total Bilirubin AST ALT Alkaline Phosphatase Total Protein Albumin Globulin Albumin/Globulin Ratio Vancomycin Trough 17.1 H Critical Care Progress Note - Nutrition Nutrition: Nutrition Category Date Time Status NPO Diet [DIET] Diets 11/09/17 Breakfast Active Attending/Attestation - Attestation I have personally seen and examined this patient.: Yes I have fully participated in the care of the patient.: Yes I have reviewed all pertinent clinical information: Yes Notes (Text): 11/16/17 15:00 I have seen and examined the patient. Medical records, lab studies, and imaging were reviewed by me and a management plan was formulated on multidisciplinary rounds with resident Dr. Lee. I agree with their documented assessment and plan. Patient is still failing PS trials, continue diuresis. all sedation held. patient very weak and deconditioned. Will continue weaning trials, but there is a high probability she will need a trach. Critical Care Time 35 minutes. Multi-disciplinary rounds were performed with house staff, nursing, speech therapy, respiratory therapy, pharmacy and nutrition with integrated input from the primary team/attending and other consulting services. The documented time is cumulative and includes review of patient data/exams/labs/chart review and examination of the patient on rounds and throughout the day; time is exclusive of any procedures or teaching time.
[2017-11-16] MEDS: Vancomycin 1 gm/NS 200 ml 1 GM/200 ML BAG IVPB SCH (14:55)
[2017-11-16] MEDS ORDERED: Labetalol 25mg/5ml Syringe IVP ONE (17:15)
[2017-11-16] MEDS: Pantoprazole 40 mg EC Tab PO SCH (19:47)
--- NOTE | 2017-11-16 19:54 | CP.PCM.PN ---
Subjective - Date & Time of Evaluation Date of Evaluation: 11/16/17 Time of Evaluation: 19:54 - Subjective Subjective: CHIEF COMPLAINTS TODAY : intubated, tmax 98.4 sedated. unable to tolerate CPAP today secretions+ve thick +VE FOLYS- ROS. ON OBSERVATION. HEENT : N. Resp : No SOB wheezing, cough +VE THICK SECRETIONS. Cardio : No CP, PND orthopnea GI : No abd. Pain, n/v ESTIMATION MANAGER : No headache , focal deficit. Musculoskel : N Ext. : Pedal pulses intact, no edema or calf pain Derm : N Psych : N. PE. Pt. is, INTUBATED, in no distress. V.S As noted in the chart Head ,ear nose,throat and eyes : Normal. Neck : Supple with normal carotids. Lungs: B/L RHONCHI Heart : S1 & S2 normal . . No murmur. S4 + Abd : Soft non tender with normal bowel sounds.+VE PEG FEEDS Neuro : Moves all ext. with no localized deficit. Ext : No edema with intact pulses. Neg. calf tenderness Derm : No rashes or decubitus ulcer. Radiology/Labs . SPUTUM +VE staph aureus MSSA GT-EXIT SITE SECRETIONS +VE kLEBSIELLA PNEUMONIAE/Farheen ALBICANS. LFTS N. VANCO TROUGH 14.6 OK Asssessment : SEPSIS/LEUKOCYTOSIS ACUTE RESPIRATORY FAILURE /ASPIRATION PNEUMONIA. GT-EXIT SITE DRAINAGE. dIABETES MELLITUS. CAD/S/P CABG Plan: CONTINUE iv AZACTAM 1 G EVERY 8 HOURLY. 11/09/17. CONTINUE iv VANCOMYCIN 1 G EVERY 24 HOURLY. 11/10/17. ON iv dIFLUCAN 100 MG ONCE A DAY DAILY iv PIGGYBACK.-DAY 5 lOADING DOSE dIFLUCAN 200 MG GIVEN . F/U K/LFTS POTASSIUM SUPPLEMENT PER pmd. MONITOR RENAL FUNCTIONS CLOSELY. PULMONARY TOILET WEANING PER PMD. Objective - Vital Signs/Intake and Output Vital Signs (last 24 hours): Temp Pulse Resp BP Pulse Ox 97.4 F L 124 H 19 146/81 98 11/16/17 12:00 11/16/17 19:41 11/16/17 19:41 11/16/17 19:41 11/16/17 19:41 Intake and Output: 11/16/17 11/17/17 18:59 06:59 Intake Total 771 Output Total 1299 Balance -528 - Medications Medications: Current Medications Acetaminophen (Tylenol 650 Mg Supp) 650 mg ID Q6 PRN PRN Reason: Fever >100.4 F Last Admin: 11/11/17 16:28 Dose: 650 mg Al Hydrox/Mg Hydrox/Simethicone (Maalox 30 Ml) 30 ml TOP Q6H PRN PRN Reason: Other Albuterol/Ipratropium (Duoneb 3 Mg/0.5 Mg (3 Ml) Ud) 3 ml INH RQ6 [facility] Last Admin: 11/16/17 13:24 Dose: 3 ml Furosemide (Lasix) 40 mg IVP Q12H [facility] Last Admin: 11/16/17 10:40 Dose: 40 mg Heparin Sodium (Porcine) (Heparin) 5,000 units SC Q8 [facility] Last Admin: 11/16/17 14:15 Dose: 5,000 units Hydralazine HCl (Apresoline) 10 mg IVP Q6H PRN PRN Reason: Systolic Blood Pressure Aztreonam 1 gm/ Sodium (Chloride) 100 mls @ 200 mls/hr IVPB Q8H [facility] PRN Reason: Protocol Last Admin: 11/16/17 18:02 Dose: 200 mls/hr Fluconazole (Diflucan Iv 100 Mg/50 Ml Ns) 50 mls @ 100 mls/hr IVPB DAILY [facility] PRN Reason: Protocol Last Admin: 11/16/17 10:41 Dose: 100 mls/hr Vancomycin/Sodium Chloride (Vancomycin 1 Gm/Ns 200 Ml) 1 gm in 200 mls @ 133 mls/hr IVPB Q12H [facility] PRN Reason: Protocol Stop: 11/21/17 13:01 Last Admin: 11/16/17 14:55 Dose: Not Given Insulin Glargine (Lantus) 10 unit SC HS [facility] Last Admin: 11/15/17 21:47 Dose: 10 units Insulin Human Regular (Novolin R) 0 unit SC Q6H [facility] PRN Reason: Protocol Last Admin: 11/16/17 17:59 Dose: 8 unit Methylprednisolone (Solu-Medrol) 40 mg IV Q8H [facility] Last Admin: 11/16/17 17:59 Dose: 40 mg Metoprolol Tartrate (Lopressor) 5 mg IVP Q6H [facility] Mupirocin (Bactroban Ointment) 0 gm TOP BID [facility] Last Admin: 11/16/17 18:00 Dose: 1 applic Nystatin (Nystop Topical Powder) 0 gm TOP TID [facility] Last Admin: 11/16/17 18:01 Dose: 1 applic Pantoprazole Sodium (Protonix Susp) 40 mg PO 0600 [facility] Last Admin: 11/16/17 10:40 Dose: 40 mg - Labs Labs: 11/16/17 06:15 11/16/17 06:15 Assessment and Plan (1) Sepsis Status: Acute (2) Respiratory failure with hypoxia Status: Acute (3) Pneumonia Status: Acute (4) Leukocytosis Status: Acute (5) Gastrostomy tube in place Status: Acute (6) CAD (coronary artery disease) Status: Acute (7) Uncontrolled diabetes mellitus Status: Acute (8) Hx of CABG Status: Acute
[2017-11-16] MEDS: Metoprolol 1 mg/ml Inj IVP SCH (20:00)
[2017-11-16] MEDS: (Lantus) Insulin Glargine, Recombinant SC SCH (21:42)
[2017-11-16] MEDS ORDERED: MethylPREDNISolone 40 mg Vial IV SCH ×2 (22:00→23:15)
--- NOTE | 2017-11-16 22:00 | CP.PCM.PN ---
Subjective - Date & Time of Evaluation Date of Evaluation: 11/16/17 Time of Evaluation: 21:57 - Subjective Subjective: attempted to wean today but not ready still tachy spoke to pt daughter will f/u Objective - Vital Signs/Intake and Output Vital Signs (last 24 hours): Temp Pulse Resp BP Pulse Ox 98.5 F 124 H 19 146/81 98 11/16/17 16:00 11/16/17 19:41 11/16/17 19:41 11/16/17 19:41 11/16/17 19:41 Intake and Output: 11/16/17 11/17/17 18:59 06:59 Intake Total 771 35 Output Total 1299 Balance -528 35 - Medications Medications: Current Medications Acetaminophen (Tylenol 650 Mg Supp) 650 mg NM Q6 PRN PRN Reason: Fever >100.4 F Last Admin: 11/11/17 16:28 Dose: 650 mg Al Hydrox/Mg Hydrox/Simethicone (Maalox 30 Ml) 30 ml TOP Q6H PRN PRN Reason: Other Albuterol/Ipratropium (Duoneb 3 Mg/0.5 Mg (3 Ml) Ud) 3 ml INH RQ6 [facility] Last Admin: 11/16/17 20:42 Dose: 3 ml Furosemide (Lasix) 40 mg IVP Q12H [facility] Last Admin: 11/16/17 10:40 Dose: 40 mg Heparin Sodium (Porcine) (Heparin) 5,000 units SC Q8 [facility] Last Admin: 11/16/17 14:15 Dose: 5,000 units Hydralazine HCl (Apresoline) 10 mg IVP Q6H PRN PRN Reason: Systolic Blood Pressure Aztreonam 1 gm/ Sodium (Chloride) 100 mls @ 200 mls/hr IVPB Q8H [facility] PRN Reason: Protocol Last Admin: 11/16/17 18:02 Dose: 200 mls/hr Fluconazole (Diflucan Iv 100 Mg/50 Ml Ns) 50 mls @ 100 mls/hr IVPB DAILY [facility] PRN Reason: Protocol Last Admin: 11/16/17 10:41 Dose: 100 mls/hr Vancomycin/Sodium Chloride (Vancomycin 1 Gm/Ns 200 Ml) 1 gm in 200 mls @ 133 mls/hr IVPB Q12H [facility] PRN Reason: Protocol Stop: 11/21/17 13:01 Last Admin: 11/16/17 14:55 Dose: Not Given Insulin Glargine (Lantus) 10 unit SC HS [facility] Last Admin: 11/15/17 21:47 Dose: 10 units Insulin Human Regular (Novolin R) 0 unit SC Q6H [facility] PRN Reason: Protocol Last Admin: 11/16/17 17:59 Dose: 8 unit Methylprednisolone (Solu-Medrol) 40 mg IV Q8H [facility] Last Admin: 11/16/17 17:59 Dose: 40 mg Metoprolol Tartrate (Lopressor) 5 mg IVP Q6H [facility] Last Admin: 11/16/17 20:00 Dose: 5 mg Mupirocin (Bactroban Ointment) 0 gm TOP BID [facility] Last Admin: 11/16/17 18:00 Dose: 1 applic Nystatin (Nystop Topical Powder) 0 gm TOP TID [facility] Last Admin: 11/16/17 18:01 Dose: 1 applic Pantoprazole Sodium (Protonix Susp) 40 mg PO 0600 [facility] Last Admin: 11/16/17 10:40 Dose: 40 mg - Labs Labs: 11/16/17 06:15 11/16/17 06:15
[2017-11-16] MEDS ORDERED: Dexmedetomidine Hydrochloride 200 MCG in Sodium Chloride 0.9% 48 ML IV PRN (23:08)
[2017-11-17] MEDS: Vancomycin 1 gm/NS 200 ml 1 GM/200 ML BAG IVPB SCH (00:02)
[2017-11-17] MEDS: Albuterol-Ipratrop 3 mg / 0.5 (3 ml) UD INH SCH ×4 (01:10→19:38)
[2017-11-17] MEDS: Aztreonam 1 GM in Sodium Chloride 0.9% 100 ML IVPB SCH ×3 (01:45→17:06)
[2017-11-17] MEDS: Metoprolol 1 mg/ml Inj IVP SCH ×4 (01:46→20:31)
[2017-11-17 04:38] LABS: ARTERIAL BLOOD GAS HCO3 29.2 mmol/L (21-28); ARTERIAL BLOOD GAS HEMOGLOBIN 8.8 g/dL (11.7-17.4); ARTERIAL BLOOD GAS O2 SAT 99.5 % (95-98); ARTERIAL BLOOD GAS PCO2 32 mm/Hg (35-45); ARTERIAL BLOOD GAS PH 7.55 (7.35-7.45); ARTERIAL BLOOD GAS PO2 168 mm/Hg (80-100)
[2017-11-17] MEDS: (Novolin R) Insulin Human Regular 100 units/ml vial SC SCH ×4 (06:01→18:22)
[2017-11-17] MEDS: MethylPREDNISolone 40 mg Vial IV SCH ×2 (06:02→17:06)
[2017-11-17] MEDS: Pantoprazole 40 mg Susp UD PO SCH (06:05)
[2017-11-17 06:28] LABS: BASO % 0.2 % (0.0-2.0); HEMOGLOBIN 8.2 g/dL (11.0-16.0); LYMPH # 0.9 K/uL (1.0-4.3); MEAN CELL VOLUME 91.1 fL (81.0-99.0); MEAN CORPUSCULAR HEMOGLOBIN 31.4 pg (27.0-31.0); MEAN CORPUSCULAR HGB CONC 34.5 g/dL (33.0-37.0); MEAN PLATELET VOLUME 7.4 fL (7.2-11.7); MONO # 0.7 K/uL (0.0-0.8); MONO % 6.1 % (0.0-10.0); NEUT # 10.1 K/uL (1.8-7.0); NEUT % 85.7 % (50.0-75.0); NRBC % 0.2 % (0.0-2.0); PLATELET COUNT 427 K/uL (130-400); RBC 2.61 Mil/uL (3.80-5.20); RED CELL DISTRIBUTION WIDTH 12.9 % (11.5-14.5); WHITE BLOOD COUNT 11.8 K/uL (4.8-10.8)
[2017-11-17 06:54] LABS: ALB/GLOB RATIO 0.9 (1.0-2.1); ALBUMIN 3.5 g/dL (3.5-5.0); ALT/SGPT 34 U/L (9-52); AST/SGOT 26 U/L (14-36); BLOOD UREA NITROGEN 39 mg/dL (7-17); CALCIUM 8.9 mg/dl (8.6-10.4); GFR AFRICAN-AMERICAN > 60; GFR NON-AFRICAN AMERICAN 59
--- NOTE | 2017-11-17 08:28 | RAD ---
HISTORY: Respiratory insufficiency COMPARISON: Portable chest 11/16/2017. FINDINGS: Endotracheal tube appears somewhat retracted now terminating proxy 1.5 cm above the renata. Right center venous line is unchanged in position with unipolar pacemaker again evident. LUNGS: Interstitial pattern remains somewhat diffusely increased. Borderline left infrahilar patchy atelectasis or infiltrate. . PLEURA: No significant pleural effusion identified, no pneumothorax apparent. CARDIOVASCULAR: Cardiomediastinal silhouette is stable with sternotomy again noted, coronary stent and post CABG changes as well. No pulmonary vascular congestion. OSSEOUS STRUCTURES: No significant abnormalities. VISUALIZED UPPER ABDOMEN: Left ophelia abdominal tubing, possible gastrostomy or jejunostomy tube. OTHER FINDINGS: None. IMPRESSION: Borderline left infrahilar patchy atelectasis or infiltrate. Bilateral pulmonary reticular changes appear stable.
[2017-11-17 09:12] LABS: BANDS 7 % (0-2); BASOPHIL 1 % (0-2); LYMPHOCYTE 7 % (20-40); METAMYELOCYTE 5 % (0-0); MONOCYTE 4 % (0-10); MYELOCYTE 3 % (0-0); NEUTROPHIL 73 % (50-75); NUCLEATED RED BLOOD CELL 1 % (0-0); PLATELET ESTIMATE SLIGHTLY INCREASED (NORMAL); TOTAL CELLS COUNTED 100
[2017-11-17 09:13] LABS: ANISOCYTOSIS SLIGHT; GIANT PLATELETS PRESENT; HYPOCHROMIC SLIGHT; LARGE PLATELETS PRESENT; POLYCHROMIC SLIGHT; TOXIC GRANULATION PRESENT
--- NOTE | 2017-11-17 10:15 | CP.PCM.PN ---
Subjective - Date & Time of Evaluation Date of Evaluation: 11/16/17 Time of Evaluation: 17:05 - Subjective Subjective: Patient seen and evaluated Intubated and sedated Physical Examination - Constitutional Appears: Non-toxic, No Acute Distress - Head Exam Head Exam: ATRAUMATIC, NORMAL INSPECTION, NORMOCEPHALIC - Eye Exam Eye Exam: absent: EOMI (does not open eyes to stimuli) - ENT Exam ENT Exam: Mucous Membranes Dry (poor dentition) Additional comments: ET tube in place - Neck Exam Additional comments: RIJ in place - Respiratory Exam Respiratory Exam: NORMAL BREATHING PATTERN (on mech vent) - Cardiovascular Exam Cardiovascular Exam: REGULAR RHYTHM, +S1, +S2 - GI/Abdominal Exam GI & Abdominal Exam: Soft. absent: Distended, Firm, Guarding Additional comments: PEG tube in place- tube feeds running. PEG tube insertion site with minimal feed leak, erythema surrounding insertion site - Extremities Exam Extremities Exam: Normal Inspection - Neurological Exam Neurological Exam: absent: Alert, Awake, Oriented x3 Additional comments: intubated - Psychiatric Exam Additional comments: intubated, not sedated, unarousable - Skin Skin Exam: Dry, Intact, Normal Color, Warm Objective - Vital Signs/Intake and Output Vital Signs (last 24 hours): Temp Pulse Resp BP Pulse Ox 97.6 F 108 H 16 95/45 L 99 11/17/17 04:00 11/17/17 08:11 11/17/17 08:11 11/17/17 08:11 11/17/17 08:11 Intake and Output: 11/17/17 11/17/17 06:59 18:59 Intake Total 785.4 76.8 Output Total 1765 115 Balance -979.6 -38.2 - Medications Medications: Current Medications Acetaminophen (Tylenol 650 Mg Supp) 650 mg [place] Q6 PRN PRN Reason: Fever >100.4 F Last Admin: 11/11/17 16:28 Dose: 650 mg Al Hydrox/Mg Hydrox/Simethicone (Maalox 30 Ml) 30 ml TOP Q6H PRN PRN Reason: Other Albuterol/Ipratropium (Duoneb 3 Mg/0.5 Mg (3 Ml) Ud) 3 ml INH RQ6 [facility] Last Admin: 11/17/17 07:20 Dose: 3 ml Furosemide (Lasix) 40 mg IVP Q12H [facility] Last Admin: 11/16/17 21:41 Dose: 40 mg Heparin Sodium (Porcine) (Heparin) 5,000 units SC Q8 [facility] Last Admin: 11/17/17 06:06 Dose: 5,000 units Hydralazine HCl (Apresoline) 10 mg IVP Q6H PRN PRN Reason: Systolic Blood Pressure Last Admin: 11/16/17 22:40 Dose: 10 mg Aztreonam 1 gm/ Sodium (Chloride) 100 mls @ 200 mls/hr IVPB Q8H [facility] PRN Reason: Protocol Last Admin: 11/17/17 08:44 Dose: 200 mls/hr Fluconazole (Diflucan Iv 100 Mg/50 Ml Ns) 50 mls @ 100 mls/hr IVPB DAILY [facility] PRN Reason: Protocol Last Admin: 11/16/17 10:41 Dose: 100 mls/hr Vancomycin/Sodium Chloride (Vancomycin 1 Gm/Ns 200 Ml) 1 gm in 200 mls @ 133 mls/hr IVPB Q12H [facility] PRN Reason: Protocol Stop: 11/21/17 13:01 Last Admin: 11/17/17 00:02 Dose: 133 mls/hr Dexmedetomidine HCl 200 mcg/ (Sodium Chloride) 50 mls @ 2.31 mls/hr IV TITR PRN ; Protocol; 0.2 MCG/KG/HR PRN Reason: Sedation Last Titration: 11/17/17 07:00 Dose: 0 mcg/kg/hr, 0 mls/hr Insulin Glargine (Lantus) 10 unit SC HS [facility] Last Admin: 11/16/17 21:42 Dose: 10 units Insulin Human Regular (Novolin R) 0 unit SC Q6H [facility] PRN Reason: Protocol Last Admin: 11/17/17 06:01 Dose: 8 unit Methylprednisolone (Solu-Medrol) 20 mg IV Q12H [facility] Last Admin: 11/17/17 06:02 Dose: 20 mg Metoprolol Tartrate (Lopressor) 5 mg IVP Q6H [facility] Last Admin: 11/17/17 08:44 Dose: 5 mg Mupirocin (Bactroban Ointment) 0 gm TOP BID [facility] Last Admin: 11/16/17 18:00 Dose: 1 applic Nystatin (Nystop Topical Powder) 0 gm TOP TID [facility] Last Admin: 11/16/17 18:01 Dose: 1 applic Pantoprazole Sodium (Protonix Susp) 40 mg PO 0600 [facility] Last Admin: 11/17/17 06:05 Dose: 40 mg - Labs Labs: 11/17/17 06:18 11/17/17 06:18 Assessment and Plan - Assessment and Plan (Free Text) Assessment: This is an 87 year old female with PMHx achalasia, DM, CAD, COPD, osteoarthritis who presented from the intermediate for altered mental status and shortness of breath. Patient intubated and sedated. Patient being treated for MSSA pneumonia and Klebsiella PEG site infection. Patient has failed multiple weaning trials. Diuresing patient to aid in weaning. If weaning continues failing, tracheostomy will need to be considered. Neuro Intubated and now off of sedation Cardio Assessments: Labile blood pressure and heart rate, History of CAD Patient is off of her home medications while she is sedated Labetalol 20 mg IV prn SBP>160 or HR>110 Pulm Assessment: MSSA pneumonia, ventilator dependent respiratory failure, History of COPD Vented Will continue to try to wean the patient off of ventilation Lasix 40 mg IV Q12H to assist in weaning the patient Solumedrol 40 mg IV Q8H GI Tube feeds at goal rate Endocrine Assessment: DM Regular ISS Q6H Accuchecks Q6H Renal Negative fluid balance Good urine output Continue diuresis Infectious Diseases Assessments: MSSA pneumonia and Klebsiella PEG site infection Vancomycin 1 gm Q24H Aztreonam 1 gm Q8H Fluconazole IV daily Bactroban for PEG site excoriations Nystatin topical Prophylaxis Heparin SC Q8 Protonix 40 mg suspension PEG daily Per surgery, no need for intervention for PEG site leak--secure flange close to skin
[2017-11-17] MEDS: Fluconazole IV 100mg/50 ml NS 50 ML IVPB SCH (10:20)
[2017-11-17] MEDS: Nystatin 100,000 Units/gm Topical Pow(15 gm) TOP SCH ×3 (10:21→17:05)
--- NOTE | 2017-11-17 15:12 | CP.CCUPN ---
CCU Subjective - Physician Review Events Since Last Encounter (Free Text): 11/17/17 15:11 very weak, barely responsive. CCU Objective - Vital Signs / Intake & Output Vital Signs (Last 4 hours): Vital Signs Pulse Resp BP Pulse Ox 11/17/17 11:41 128 H 22 136/63 99 Intake and Output (Last 8hrs): Intake & Output 11/17/17 11/17/17 11/17/17 06:59 14:59 22:59 Intake Total 645.4 76.8 Output Total 1390 115 Balance -744.6 -38.2 Weight 101 lb 13.6 oz Intake: IV 33.5 4.5 Intake, IV Amount 331.9 2.3 Right Distal Port 31.9 2.3 Internal Jugular Right Medial Port 300 Internal Jugular Tube Feeding 280 70 Output: Urine 1390 115 Urethral (Genao) 1390 115 Other: # Bowel Movements 0 0 - Physical Exam Head: Positive for: Atraumatic, Normocephalic Pupils: Positive for: PERRL Conjunctiva: Positive for: Normal Mouth: Positive for: Dry, Other (endotracheal tube in place) Neck: Positive for: Other (Right IJ TLC in place) Respiratory/Chest: Positive for: Decreased Breath Sounds, Other (vented) Cardiovascular: Positive for: Normal S1, S2, Tachycardic Abdomen: Positive for: Distention (but soft), Normal Bowel Sounds, Feeding Tubes (PEG tube), Other (excoriations around PEG tube) Upper Extremity: Positive for: Normal Inspection Lower Extremity: Positive for: Normal Inspection Skin: Positive for: Warm, Dry Psychiatric: Positive for: Alert, Other (intubated/sedated) - Medications Active Medications: Active Medications Generic Name Dose Route Start Last Admin Trade Name Freq PRN Reason Stop Dose Admin Acetaminophen 650 mg 11/10/17 10:52 11/11/17 16:28 Tylenol 650 Mg Supp NV 650 mg Q6 PRN Administration Fever >100.4 F Al Hydrox/Mg Hydrox/Simethicone 30 ml 11/16/17 10:15 Maalox 30 Ml TOP Q6H PRN Other Albuterol/Ipratropium 3 ml 11/10/17 14:00 11/17/17 07:20 Duoneb 3 Mg/0.5 Mg (3 Ml) Ud INH 3 ml RQ6 JUDY Administration Heparin Sodium (Porcine) 5,000 units 04/14/18 06:00 11/17/17 13:19 Heparin SC 5,000 units Q8 JUDY Administration Hydralazine HCl 10 mg 11/16/17 18:54 11/17/17 10:46 Apresoline IVP 10 mg Q6H PRN Administration Systolic Blood Pressure Aztreonam 1 gm/ Sodium 100 mls @ 200 mls/hr 11/10/17 09:30 11/17/17 08:44 Chloride IVPB 200 mls/hr Q8H JUDY Administration Protocol Fluconazole 50 mls @ 100 mls/hr 11/12/17 13:00 11/17/17 10:20 Diflucan Iv 100 Mg/50 Ml Ns IVPB 100 mls/hr DAILY [facility] Administration Protocol Vancomycin/Sodium Chloride 1 gm in 200 mls @ 133 mls/hr 11/16/17 13:00 00:02 Vancomycin 1 Gm/Ns 200 Ml IVPB 11/21/17 13:01 133 mls/hr Q12H JUDY Administration Protocol Insulin Glargine 15 unit 11/17/17 22:00 Lantus SC HS JUDY Insulin Human Regular 0 unit 11/10/17 18:00 11/17/17 13:18 Novolin R SC 10 unit Q6H [facility] Administration Protocol Methylprednisolone 20 mg 11/17/17 06:00 11/17/17 06:02 Solu-Medrol IV 20 mg Q12H JUDY Administration Metoprolol Tartrate 5 mg 11/16/17 20:00 11/17/17 13:19 Lopressor IVP 5 mg Q6H JUDY Administration Mupirocin 0 gm 11/12/17 10:15 11/17/17 10:21 Bactroban Ointment TOP 1 applic BID JUDY Administration Nystatin 0 gm 11/12/17 14:00 11/17/17 14:42 Nystop Topical Powder TOP 1 applic TID JUDY Administration Pantoprazole Sodium 40 mg 11/16/17 10:45 11/17/17 06:05 Protonix Susp PO 40 mg 0600 JUDY Administration - Patient Studies Lab Studies: Microbiology Studies 11/15/17 Unknown Gram Stain - Final Trachasp Sputum Culture - Final Staphylococcus Aureus 11/11/17 16:45 Blood Culture - Final Blood-Thru Central Line NO GROWTH AFTER 5 DAYS Gram Stain - Final TEST NOT PERFORMED 11/11/17 17:00 Blood Culture - Final Blood-Thru Central Line NO GROWTH AFTER 5 DAYS Gram Stain - Final TEST NOT PERFORMED Lab Studies 11/17/17 11/17/17 11/17/17 Range/Units 11:54 06:18 06:18 WBC 11.8 H (4.8-10.8) K/uL RBC 2.61 L (3.80-5.20) Mil/uL Hgb 8.2 L (11.0-16.0) g/dL Hct 23.7 L (34.0-47.0) % MCV 91.1 (81.0-99.0) fL MCH 31.4 H (27.0-31.0) pg MCHC 34.5 (33.0-37.0) g/dL RDW 12.9 (11.5-14.5) % Plt Count 427 H (130-400) K/uL MPV 7.4 (7.2-11.7) fL Neut % (Auto) 85.7 H (50.0-75.0) % Lymph % (Auto) 8.0 L (20.0-40.0) % [place] % (Auto) 6.1 (0.0-10.0) % Eos % (Auto) 0.0 (0.0-4.0) % Baso % (Auto) 0.2 (0.0-2.0) % Neut # (Auto) 10.1 H (1.8-7.0) K/uL Lymph # (Auto) 0.9 L (1.0-4.3) K/uL [place] # (Auto) 0.7 (0.0-0.8) K/uL Eos # (Auto) 0.0 (0.0-0.7) K/uL Baso # (Auto) 0.0 (0.0-0.2) K/uL Neutrophils % (Manual) 73 (50-75) % Band Neutrophils % 7 H (0-2) % Lymphocytes % (Manual) 7 L (20-40) % Monocytes % (Manual) 4 (0-10) % Basophils % (Manual) 1 (0-2) % Metamyelocytes % 5 H (0-0) % Myelocytes % 3 H (0-0) % Nucleated RBC % 1 H (0-0) % Toxic Granulation Present Platelet Estimate Slightly increased H (NORMAL) Large Platelets Present Giant Platelets Present Polychromasia Slight Hypochromasia (manual) Slight Anisocytosis (manual) Slight Puncture Site pCO2 (35-45) mm/Hg pO2 (80-100) mm/Hg HCO3 (21-28) mmol/L ABG pH (7.35-7.45) ABG Total CO2 (22-28) mmol/L ABG O2 Saturation (95-98) % ABG Base Excess (-2.0-3.0) mmol/L ABG Hemoglobin (11.7-17.4) g/dL ABG Carboxyhemoglobin (0.5-1.5) % POC ABG HHb (Measured) (0.0-5.0) % ABG Methemoglobin (0.0-3.0) % Scout Test A-a O2 Difference mm/Hg Respiratory Index Hgb O2 Saturation (95.0-98.0) % Vent Mode Mechanical Rate FiO2 % Tidal Volume PEEP Sodium 143 (132-148) mmol/L Potassium 3.8 (3.6-5.2) mmol/L Chloride 99 (98-107) mmol/L Carbon Dioxide 28 (22-30) mmol/L Anion Gap 19 (10-20) BUN 39 H (7-17) mg/dL Creatinine 0.9 (0.7-1.2) mg/dL Est GFR ( Amer) > 60 Est GFR (Non-Af Amer) 59 POC Glucose (mg/dL) 359 H (65-110) mg/dL Random Glucose 316 H (65-105) mg/dL Calcium 8.9 (8.6-10.4) mg/dl Phosphorus 2.7 (2.5-4.5) mg/dL Magnesium 2.2 (1.6-2.3) mg/dL Total Bilirubin 0.4 (0.2-1.3) mg/dL AST 26 (14-36) U/L ALT 34 (9-52) U/L Alkaline Phosphatase 69 (38-126) U/L Total Protein 7.3 (6.3-8.3) g/dL Albumin 3.5 (3.5-5.0) g/dL Globulin 3.8 (2.2-3.9) gm/dL Albumin/Globulin Ratio 0.9 L (1.0-2.1) 11/17/17 11/17/17 11/16/17 Range/Units 05:41 04:30 23:41 WBC (4.8-10.8) K/uL RBC (3.80-5.20) Mil/uL Hgb (11.0-16.0) g/dL Hct (34.0-47.0) % MCV (81.0-99.0) fL MCH (27.0-31.0) pg MCHC (33.0-37.0) g/dL RDW (11.5-14.5) % Plt Count (130-400) K/uL MPV (7.2-11.7) fL Neut % (Auto) (50.0-75.0) % Lymph % (Auto) (20.0-40.0) % [place] % (Auto) (0.0-10.0) % Eos % (Auto) (0.0-4.0) % Baso % (Auto) (0.0-2.0) % Neut # (Auto) (1.8-7.0) K/uL Lymph # (Auto) (1.0-4.3) K/uL [place] # (Auto) (0.0-0.8) K/uL Eos # (Auto) (0.0-0.7) K/uL Baso # (Auto) (0.0-0.2) K/uL Neutrophils % (Manual) (50-75) % Band Neutrophils % (0-2) % Lymphocytes % (Manual) (20-40) % Monocytes % (Manual) (0-10) % Basophils % (Manual) (0-2) % Metamyelocytes % (0-0) % Myelocytes % (0-0) % Nucleated RBC % (0-0) % Toxic Granulation Platelet Estimate (NORMAL) Large Platelets Giant Platelets Polychromasia Hypochromasia (manual) Anisocytosis (manual) Puncture Site Rb pCO2 32 L (35-45) mm/Hg pO2 168 H (80-100) mm/Hg HCO3 29.2 H (21-28) mmol/L ABG pH 7.55 H (7.35-7.45) ABG Total CO2 29.0 H (22-28) mmol/L ABG O2 Saturation 99.5 H (95-98) % ABG Base Excess 5.5 H (-2.0-3.0) mmol/L ABG Hemoglobin 8.8 L (11.7-17.4) g/dL ABG Carboxyhemoglobin 1.6 H (0.5-1.5) % POC ABG HHb (Measured) 0.5 (0.0-5.0) % ABG Methemoglobin 1.0 (0.0-3.0) % Scout Test Na A-a O2 Difference 77.0 mm/Hg Respiratory Index 0.5 Hgb O2 Saturation 96.8 (95.0-98.0) % Vent Mode Prvc Mechanical Rate 16 FiO2 40.0 % Tidal Volume 400 PEEP 5 Sodium (132-148) mmol/L Potassium (3.6-5.2) mmol/L Chloride (98-107) mmol/L Carbon Dioxide (22-30) mmol/L Anion Gap (10-20) BUN (7-17) mg/dL Creatinine (0.7-1.2) mg/dL Est GFR ( Amer) Est GFR (Non-Af Amer) POC Glucose (mg/dL) 348 H 357 H (65-110) mg/dL Random Glucose (65-105) mg/dL Calcium (8.6-10.4) mg/dl Phosphorus (2.5-4.5) mg/dL Magnesium (1.6-2.3) mg/dL Total Bilirubin (0.2-1.3) mg/dL AST (14-36) U/L ALT (9-52) U/L Alkaline Phosphatase (38-126) U/L Total Protein (6.3-8.3) g/dL Albumin (3.5-5.0) g/dL Globulin (2.2-3.9) gm/dL Albumin/Globulin Ratio (1.0-2.1) 11/16/17 Range/Units 17:53 WBC (4.8-10.8) K/uL RBC (3.80-5.20) Mil/uL Hgb (11.0-16.0) g/dL Hct (34.0-47.0) % MCV (81.0-99.0) fL MCH (27.0-31.0) pg MCHC (33.0-37.0) g/dL RDW (11.5-14.5) % Plt Count (130-400) K/uL MPV (7.2-11.7) fL Neut % (Auto) (50.0-75.0) % Lymph % (Auto) (20.0-40.0) % [place] % (Auto) (0.0-10.0) % Eos % (Auto) (0.0-4.0) % Baso % (Auto) (0.0-2.0) % Neut # (Auto) (1.8-7.0) K/uL Lymph # (Auto) (1.0-4.3) K/uL [place] # (Auto) (0.0-0.8) K/uL Eos # (Auto) (0.0-0.7) K/uL Baso # (Auto) (0.0-0.2) K/uL Neutrophils % (Manual) (50-75) % Band Neutrophils % (0-2) % Lymphocytes % (Manual) (20-40) % Monocytes % (Manual) (0-10) % Basophils % (Manual) (0-2) % Metamyelocytes % (0-0) % Myelocytes % (0-0) % Nucleated RBC % (0-0) % Toxic Granulation Platelet Estimate (NORMAL) Large Platelets Giant Platelets Polychromasia Hypochromasia (manual) Anisocytosis (manual) Puncture Site pCO2 (35-45) mm/Hg pO2 (80-100) mm/Hg HCO3 (21-28) mmol/L ABG pH (7.35-7.45) ABG Total CO2 (22-28) mmol/L ABG O2 Saturation (95-98) % ABG Base Excess (-2.0-3.0) mmol/L ABG Hemoglobin (11.7-17.4) g/dL ABG Carboxyhemoglobin (0.5-1.5) % POC ABG HHb (Measured) (0.0-5.0) % ABG Methemoglobin (0.0-3.0) % Scout Test A-a O2 Difference mm/Hg Respiratory Index Hgb O2 Saturation (95.0-98.0) % Vent Mode Mechanical Rate FiO2 % Tidal Volume PEEP Sodium (132-148) mmol/L Potassium (3.6-5.2) mmol/L Chloride (98-107) mmol/L Carbon Dioxide (22-30) mmol/L Anion Gap (10-20) BUN (7-17) mg/dL Creatinine (0.7-1.2) mg/dL Est GFR ( Amer) Est GFR (Non-Af Amer) POC Glucose (mg/dL) 325 H (65-110) mg/dL Random Glucose (65-105) mg/dL Calcium (8.6-10.4) mg/dl Phosphorus (2.5-4.5) mg/dL Magnesium (1.6-2.3) mg/dL Total Bilirubin (0.2-1.3) mg/dL AST (14-36) U/L ALT (9-52) U/L Alkaline Phosphatase (38-126) U/L Total Protein (6.3-8.3) g/dL Albumin (3.5-5.0) g/dL Globulin (2.2-3.9) gm/dL Albumin/Globulin Ratio (1.0-2.1) Laboratory Results - last 24 hr 11/16/17 11/16/17 11/17/17 17:53 23:41 04:30 WBC RBC Hgb Hct MCV MCH MCHC RDW Plt Count MPV Neut % (Auto) Lymph % (Auto) [place] % (Auto) Eos % (Auto) Baso % (Auto) Neut # (Auto) Lymph # (Auto) [place] # (Auto) Eos # (Auto) Baso # (Auto) Neutrophils % (Manual) Band Neutrophils % Lymphocytes % (Manual) Monocytes % (Manual) Basophils % (Manual) Metamyelocytes % Myelocytes % Nucleated RBC % Toxic Granulation Platelet Estimate Large Platelets Giant Platelets Polychromasia Hypochromasia (manual) Anisocytosis (manual) Puncture Site Rb pCO2 32 L pO2 168 H HCO3 29.2 H ABG pH 7.55 H ABG Total CO2 29.0 H ABG O2 Saturation 99.5 H ABG Base Excess 5.5 H ABG Hemoglobin 8.8 L ABG Carboxyhemoglobin 1.6 H POC ABG HHb (Measured) 0.5 ABG Methemoglobin 1.0 Scout Test Na A-a O2 Difference 77.0 Respiratory Index 0.5 Hgb O2 Saturation 96.8 Vent Mode Prvc Mechanical Rate 16 FiO2 40.0 Tidal Volume 400 PEEP 5 Sodium Potassium Chloride Carbon Dioxide Anion Gap BUN Creatinine Est GFR ( Amer) Est GFR (Non-Af Amer) POC Glucose (mg/dL) 325 H 357 H Random Glucose Calcium Phosphorus Magnesium Total Bilirubin AST ALT Alkaline Phosphatase Total Protein Albumin Globulin Albumin/Globulin Ratio 11/17/17 11/17/17 11/17/17 05:41 06:18 06:18 WBC 11.8 H RBC 2.61 L Hgb 8.2 L Hct 23.7 L MCV 91.1 MCH 31.4 H MCHC 34.5 RDW 12.9 Plt Count 427 H MPV 7.4 Neut % (Auto) 85.7 H Lymph % (Auto) 8.0 L [place] % (Auto) 6.1 Eos % (Auto) 0.0 Baso % (Auto) 0.2 Neut # (Auto) 10.1 H Lymph # (Auto) 0.9 L [place] # (Auto) 0.7 Eos # (Auto) 0.0 Baso # (Auto) 0.0 Neutrophils % (Manual) 73 Band Neutrophils % 7 H Lymphocytes % (Manual) 7 L Monocytes % (Manual) 4 Basophils % (Manual) 1 Metamyelocytes % 5 H Myelocytes % 3 H Nucleated RBC % 1 H Toxic Granulation Present Platelet Estimate Slightly increased H Large Platelets Present Giant Platelets Present Polychromasia Slight Hypochromasia (manual) Slight Anisocytosis (manual) Slight Puncture Site pCO2 pO2 HCO3 ABG pH ABG Total CO2 ABG O2 Saturation ABG Base Excess ABG Hemoglobin ABG Carboxyhemoglobin POC ABG HHb (Measured) ABG Methemoglobin Scout Test A-a O2 Difference Respiratory Index Hgb O2 Saturation Vent Mode Mechanical Rate FiO2 Tidal Volume PEEP Sodium 143 Potassium 3.8 Chloride 99 Carbon Dioxide 28 Anion Gap 19 BUN 39 H Creatinine 0.9 Est GFR ( Amer) > 60 Est GFR (Non-Af Amer) 59 POC Glucose (mg/dL) 348 H Random Glucose 316 H Calcium 8.9 Phosphorus 2.7 Magnesium 2.2 Total Bilirubin 0.4 AST 26 ALT 34 Alkaline Phosphatase 69 Total Protein 7.3 Albumin 3.5 Globulin 3.8 Albumin/Globulin Ratio 0.9 L 11/17/17 11:54 WBC RBC Hgb Hct MCV MCH MCHC RDW Plt Count MPV Neut % (Auto) Lymph % (Auto) [place] % (Auto) Eos % (Auto) Baso % (Auto) Neut # (Auto) Lymph # (Auto) [place] # (Auto) Eos # (Auto) Baso # (Auto) Neutrophils % (Manual) Band Neutrophils % Lymphocytes % (Manual) Monocytes % (Manual) Basophils % (Manual) Metamyelocytes % Myelocytes % Nucleated RBC % Toxic Granulation Platelet Estimate Large Platelets Giant Platelets Polychromasia Hypochromasia (manual) Anisocytosis (manual) Puncture Site pCO2 pO2 HCO3 ABG pH ABG Total CO2 ABG O2 Saturation ABG Base Excess ABG Hemoglobin ABG Carboxyhemoglobin POC ABG HHb (Measured) ABG Methemoglobin Scout Test A-a O2 Difference Respiratory Index Hgb O2 Saturation Vent Mode Mechanical Rate FiO2 Tidal Volume PEEP Sodium Potassium Chloride Carbon Dioxide Anion Gap BUN Creatinine Est GFR ( Amer) Est GFR (Non-Af Amer) POC Glucose (mg/dL) 359 H Random Glucose Calcium Phosphorus Magnesium Total Bilirubin AST ALT Alkaline Phosphatase Total Protein Albumin Globulin Albumin/Globulin Ratio EKG/Cardiology Studies: Cardiology / EKG Studies 11/16/17 18:18 EKG [ELECTROCARDIOGRAM] Stat Comment: Mode Of Transportation: Reason For Exam: Tachycardia Isolation: Contact Fingerstick Blood Sugar Results: 359 Review of Systems - Review of Systems Systems not reviewed;Unavailable: Intubated Critical Care Progress Note - Nutrition Nutrition: Nutrition Category Date Time Status NPO Diet [DIET] Diets 11/09/17 Breakfast Active Assessment/Plan (1) Respiratory failure with hypoxia Assessment and plan: 87yo F. PMHx achalasia, DM, CAD, COPD, osteoarthritis p/w acute respiratory failure secondary to suspected aspiration pneumonia requiring intubation. Neuro: alert, but weak and barely responsive. Pulm: acute respiratory failure, secondary to COPD exacerbation with initially suspected aspiration. Patient has now been intubated for a prolonged time period and is failing PS trials. Will most likely need a trach. COPD continue methylprednisolone. CV: hemodynamically labile, with overall high blood pressures, but occasional drop in blood pressure to systolic 70's. Using prn IV hydralazine pushes and IV lopressor RTC for tachycardia. Hem: anemia of chronic disease. Renal: no acute issues, urine output wnl. stopped diuresis. Endo: DM type 2, RISS for coverage. GI: NPO, [email or web address] ID: [email or web address] from infected PEG site, continue Aztreonam (Klebsiella pneumonia), Vancomycin (MRSA +), and Fluconazole (Yamile). DVT proph - heparin sq GI proph - protonix genao for strict I/O's during acute illness Code status - full code Critical Care Time spent 35 minutes Multi-disciplinary rounds were performed with house staff, nursing, speech therapy, respiratory therapy, pharmacy and nutrition with integrated input from the primary team/attending and other consulting services. The documented time is cumulative and includes review of patient data/exams/labs/chart review and examination of the patient on rounds and throughout the day; time is exclusive of any procedures or teaching time. Current Visit: Yes Status: Acute
[2017-11-17] MEDS: (Lantus) Insulin Glargine, Recombinant SC SCH (21:14)
[2017-11-17] MEDS ORDERED: (Lantus) Insulin Glargine, Recombinant SC ONE (22:16)
--- NOTE | 2017-11-17 23:31 | CP.PCM.PN ---
Subjective - Date & Time of Evaluation Date of Evaluation: 11/17/17 Time of Evaluation: 13:05 - Subjective Subjective: Patient seen and evaluated Intubated and sedated Physical Examination - Constitutional Appears: Non-toxic, No Acute Distress - Head Exam Head Exam: ATRAUMATIC, NORMAL INSPECTION, NORMOCEPHALIC - Eye Exam Eye Exam: absent: EOMI (does not open eyes to stimuli) - ENT Exam ENT Exam: Mucous Membranes Dry (poor dentition) Additional comments: ET tube in place - Neck Exam Additional comments: RIJ in place - Respiratory Exam Respiratory Exam: NORMAL BREATHING PATTERN (on mech vent) - Cardiovascular Exam Cardiovascular Exam: REGULAR RHYTHM, +S1, +S2 - GI/Abdominal Exam GI & Abdominal Exam: Soft. absent: Distended, Firm, Guarding Additional comments: PEG tube in place- tube feeds running. PEG tube insertion site with minimal feed leak, erythema surrounding insertion site - Extremities Exam Extremities Exam: Normal Inspection - Neurological Exam Neurological Exam: absent: Alert, Awake, Oriented x3 Additional comments: intubated - Psychiatric Exam Additional comments: intubated, not sedated, unarousable - Skin Skin Exam: Dry, Intact, Normal Color, Warm Objective - Vital Signs/Intake and Output Vital Signs (last 24 hours): Temp Pulse Resp BP Pulse Ox 99 F 119 H 21 150/81 99 11/17/17 21:43 11/17/17 20:42 11/17/17 20:42 11/17/17 20:11 11/17/17 20:42 Intake and Output: 11/17/17 11/18/17 18:59 06:59 Intake Total 676.8 35 Output Total 595 Balance 81.8 35 - Medications Medications: Current Medications Acetaminophen (Tylenol 650 Mg Supp) 650 mg DC Q6 PRN PRN Reason: Fever >100.4 F Last Admin: 11/17/17 20:43 Dose: 650 mg Al Hydrox/Mg Hydrox/Simethicone (Maalox 30 Ml) 30 ml TOP Q6H PRN PRN Reason: Other Albuterol/Ipratropium (Duoneb 3 Mg/0.5 Mg (3 Ml) Ud) 3 ml INH RQ6 JUDY Last Admin: 11/17/17 19:38 Dose: 3 ml Heparin Sodium (Porcine) (Heparin) 5,000 units SC Q8 JUDY Last Admin: 11/17/17 21:14 Dose: 5,000 units Hydralazine HCl (Apresoline) 10 mg IVP Q6H PRN PRN Reason: Systolic Blood Pressure Last Admin: 11/17/17 17:14 Dose: 10 mg Aztreonam 1 gm/ Sodium (Chloride) 100 mls @ 200 mls/hr IVPB Q8H JUDY PRN Reason: Protocol Last Admin: 11/17/17 17:06 Dose: 200 mls/hr Fluconazole (Diflucan Iv 100 Mg/50 Ml Ns) 50 mls @ 100 mls/hr IVPB DAILY JUDY PRN Reason: Protocol Last Admin: 11/17/17 10:20 Dose: 100 mls/hr Vancomycin/Sodium Chloride (Vancomycin 1 Gm/Ns 200 Ml) 1 gm in 200 mls @ 133 mls/hr IVPB Q12H JUDY PRN Reason: Protocol Stop: 11/21/17 13:01 Last Admin: 11/17/17 00:02 Dose: 133 mls/hr Insulin Glargine (Lantus) 15 unit SC [facility] Last Admin: 11/17/17 21:14 Dose: 15 units Insulin Human Regular (Novolin R) 0 unit SC Q6H JUDY PRN Reason: Protocol Last Admin: 11/17/17 18:22 Dose: 6 unit Methylprednisolone (Solu-Medrol) 20 mg IV Q12H [facility] Last Admin: 11/17/17 17:06 Dose: 20 mg Metoprolol Tartrate (Lopressor) 5 mg IVP Q6H [facility] Last Admin: 11/17/17 20:31 Dose: 5 mg Mupirocin (Bactroban Ointment) 0 gm TOP BID [facility] Last Admin: 11/17/17 17:05 Dose: 1 applic Nystatin (Nystop Topical Powder) 0 gm TOP TID [facility] Last Admin: 11/17/17 17:05 Dose: 1 applic Pantoprazole Sodium (Protonix Susp) 40 mg PO 0600 [facility] Last Admin: 11/17/17 06:05 Dose: 40 mg Verapamil HCl (Verapamil Inj) 2.5 mg IVP Q4H PRN PRN Reason: Heart rate Last Admin: 11/17/17 22:57 Dose: 2.5 mg - Labs Labs: 11/17/17 06:18 11/17/17 06:18 Assessment and Plan - Assessment and Plan (Free Text) Assessment: This is an 87 year old female with PMHx achalasia, DM, CAD, COPD, osteoarthritis who presented from the care home for altered mental status and shortness of breath. Patient intubated and sedated. Patient being treated for MSSA pneumonia and Klebsiella PEG site infection. Patient has failed multiple weaning trials. Diuresing patient to aid in weaning. If weaning continues failing, tracheostomy will need to be considered. Neuro Intubated and now off of sedation Cardio Assessments: Labile blood pressure and heart rate, History of CAD Patient is off of her home medications while she is sedated Labetalol 20 mg IV prn SBP>160 or HR>110 Pulm Assessment: MSSA pneumonia, ventilator dependent respiratory failure, History of COPD Vented Will continue to try to wean the patient off of ventilation Lasix 40 mg IV Q12H to assist in weaning the patient Solumedrol 40 mg IV Q8H GI Tube feeds at goal rate Endocrine Assessment: DM Regular ISS Q6H Accuchecks Q6H Renal Negative fluid balance Good urine output Continue diuresis Infectious Diseases Assessments: MSSA pneumonia and Klebsiella PEG site infection Vancomycin 1 gm Q24H Aztreonam 1 gm Q8H Fluconazole IV daily Bactroban for PEG site excoriations Nystatin topical Prophylaxis Heparin SC Q8 Protonix 40 mg suspension PEG daily Per surgery, no need for intervention for PEG site leak--secure flange close to skin
--- NOTE | 2017-11-17 23:53 | CP.PCM.PN ---
Subjective - Date & Time of Evaluation Date of Evaluation: 11/17/17 Time of Evaluation: 23:53 - Subjective Subjective: CHIEF COMPLAINTS TODAY : intubated, LOW GRADE TEMP sedated. unable to tolerate CPAP today secretions+ve thick +VE FOLYS- ROS. ON OBSERVATION. HEENT : N. Resp : No SOB wheezing, cough +VE THICK SECRETIONS. Cardio : No CP, PND orthopnea GI : No abd. 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 Musculoskel : N Ext. : Pedal pulses intact, no edema or calf pain Derm : N Psych : N. PE. Pt. is, INTUBATED, in no distress. V.S As noted in the chart Head ,ear nose,throat and eyes : Normal. Neck : Supple with normal carotids. Lungs: B/L RHONCHI Heart : S1 & S2 normal . . No murmur. S4 + Abd : Soft non tender with normal bowel sounds.+VE PEG FEEDS Neuro : Moves all ext. with no localized deficit. Ext : No edema with intact pulses. Neg. calf tenderness Derm : No rashes or decubitus ulcer. Radiology/Labs . SPUTUM +VE staph aureus MSSA GT-EXIT SITE SECRETIONS +VE kLEBSIELLA PNEUMONIAE/Farheen ALBICANS. LFTS N. VANCO TROUGH 17.1 ON 11/16 Asssessment : SEPSIS/LEUKOCYTOSIS ACUTE RESPIRATORY FAILURE /ASPIRATION PNEUMONIA. GT-EXIT SITE DRAINAGE. dIABETES MELLITUS. CAD/S/P CABG Plan: CONTINUE iv AZACTAM 1 G EVERY 8 HOURLY. 11/09/17. CONTINUE iv VANCOMYCIN 1 G EVERY 24 HOURLY. 11/10/17. ON iv dIFLUCAN 100 MG ONCE A DAY DAILY iv PIGGYBACK.-DAY 5 lOADING DOSE dIFLUCAN 200 MG GIVEN . F/U K/LFTS POTASSIUM SUPPLEMENT PER pmd. MONITOR RENAL FUNCTIONS CLOSELY. PULMONARY TOILET WEANING PER PMD. Objective - Vital Signs/Intake and Output Vital Signs (last 24 hours): Temp Pulse Resp BP Pulse Ox 99 F 119 H 21 150/81 99 11/17/17 21:43 11/17/17 20:42 11/17/17 20:42 11/17/17 20:11 11/17/17 20:42 Intake and Output: 11/17/17 11/18/17 18:59 06:59 Intake Total 676.8 35 Output Total 595 Balance 81.8 35 - Medications Medications: Current Medications Acetaminophen (Tylenol 650 Mg Supp) 650 mg VT Q6 PRN PRN Reason: Fever >100.4 F Last Admin: 11/17/17 20:43 Dose: 650 mg Al Hydrox/Mg Hydrox/Simethicone (Maalox 30 Ml) 30 ml TOP Q6H PRN PRN Reason: Other Albuterol/Ipratropium (Duoneb 3 Mg/0.5 Mg (3 Ml) Ud) 3 ml INH RQ6 [facility] Last Admin: 11/17/17 19:38 Dose: 3 ml Heparin Sodium (Porcine) (Heparin) 5,000 units SC Q8 JUDY Last Admin: 11/17/17 21:14 Dose: 5,000 units Hydralazine HCl (Apresoline) 10 mg IVP Q6H PRN PRN Reason: Systolic Blood Pressure Last Admin: 11/17/17 17:14 Dose: 10 mg Aztreonam 1 gm/ Sodium (Chloride) 100 mls @ 200 mls/hr IVPB Q8H JUDY PRN Reason: Protocol Last Admin: 11/17/17 17:06 Dose: 200 mls/hr Fluconazole (Diflucan Iv 100 Mg/50 Ml Ns) 50 mls @ 100 mls/hr IVPB DAILY JUDY PRN Reason: Protocol Last Admin: 11/17/17 10:20 Dose: 100 mls/hr Vancomycin/Sodium Chloride (Vancomycin 1 Gm/Ns 200 Ml) 1 gm in 200 mls @ 133 mls/hr IVPB Q12H JUDY PRN Reason: Protocol Stop: 11/21/17 13:01 Last Admin: 11/17/17 00:02 Dose: 133 mls/hr Insulin Glargine (Lantus) 15 unit SC HS [facility] Last Admin: 11/17/17 21:14 Dose: 15 units Insulin Human Regular (Novolin R) 0 unit SC Q6H JUDY PRN Reason: Protocol Last Admin: 11/17/17 18:22 Dose: 6 unit Methylprednisolone (Solu-Medrol) 20 mg IV Q12H [facility] Last Admin: 11/17/17 17:06 Dose: 20 mg Metoprolol Tartrate (Lopressor) 5 mg IVP Q6H [facility] Last Admin: 11/17/17 20:31 Dose: 5 mg Mupirocin (Bactroban Ointment) 0 gm TOP BID [facility] Last Admin: 11/17/17 17:05 Dose: 1 applic Nystatin (Nystop Topical Powder) 0 gm TOP TID [facility] Last Admin: 11/17/17 17:05 Dose: 1 applic Pantoprazole Sodium (Protonix Susp) 40 mg PO 0600 [facility] Last Admin: 11/17/17 06:05 Dose: 40 mg Verapamil HCl (Verapamil Inj) 2.5 mg IVP Q4H PRN PRN Reason: Heart rate Last Admin: 11/17/17 22:57 Dose: 2.5 mg - Labs Labs: 11/17/17 06:18 11/17/17 06:18 Assessment and Plan (1) Sepsis Status: Acute (2) Respiratory failure with hypoxia Status: Acute (3) Pneumonia Status: Acute (4) Leukocytosis Status: Acute (5) Gastrostomy tube in place Status: Acute (6) CAD (coronary artery disease) Status: Acute (7) Uncontrolled diabetes mellitus Status: Acute (8) Hx of CABG Status: Acute
[2017-11-18] MEDS: (Novolin R) Insulin Human Regular 100 units/ml vial SC SCH ×5 (00:48→23:40)
[2017-11-18] MEDS: Aztreonam 1 GM in Sodium Chloride 0.9% 100 ML IVPB SCH ×3 (01:01→18:21)
[2017-11-18] MEDS: Metoprolol 1 mg/ml Inj IVP SCH ×4 (01:04→20:36)
[2017-11-18] MEDS: Albuterol-Ipratrop 3 mg / 0.5 (3 ml) UD INH SCH ×4 (01:13→19:38)
[2017-11-18 06:01] LABS: ABG ALLEN TEST POS; ARTERIAL BLOOD GAS HCO3 33.8 mmol/L (21-28); ARTERIAL BLOOD GAS HEMOGLOBIN 8.4 g/dL (11.7-17.4); ARTERIAL BLOOD GAS O2 SAT 99.8 % (95-98); ARTERIAL BLOOD GAS PCO2 42 mm/Hg (35-45); ARTERIAL BLOOD GAS PH 7.53 (7.35-7.45); ARTERIAL BLOOD GAS PO2 180 mm/Hg (80-100); ARTERIAL BLOOD GAS TCO2 36.4 mmol/L (22-28)
[2017-11-18] MEDS: Pantoprazole 40 mg Susp UD PO SCH (06:24)
[2017-11-18] MEDS: MethylPREDNISolone 40 mg Vial IV SCH ×2 (06:24→18:26)
[2017-11-18 07:28] LABS: BASO # 0.1 K/uL (0.0-0.2); BASO % 0.3 % (0.0-2.0); HEMOGLOBIN 8.7 g/dL (11.0-16.0); LYMPH # 1.6 K/uL (1.0-4.3); LYMPH % 9.2 % (20.0-40.0); MEAN CELL VOLUME 92.8 fL (81.0-99.0); MEAN CORPUSCULAR HEMOGLOBIN 31.2 pg (27.0-31.0); MEAN CORPUSCULAR HGB CONC 33.6 g/dL (33.0-37.0); MEAN PLATELET VOLUME 7.5 fL (7.2-11.7); MONO % 11.5 % (0.0-10.0); NEUT # 13.5 K/uL (1.8-7.0); NRBC % 0.2 % (0.0-2.0); RED CELL DISTRIBUTION WIDTH 13.6 % (11.5-14.5); WHITE BLOOD COUNT 17.2 K/uL (4.8-10.8)
[2017-11-18 07:43] LABS: BLOOD UREA NITROGEN 51 mg/dL (7-17); GFR AFRICAN-AMERICAN > 60; GFR NON-AFRICAN AMERICAN 59
[2017-11-18 07:44] LABS: ALB/GLOB RATIO 0.9 (1.0-2.1); ALT/SGPT 26 U/L (9-52); AST/SGOT 30 U/L (14-36)
[2017-11-18 07:45] LABS: PLATELET COUNT 542 K/uL (130-400)
--- NOTE | 2017-11-18 08:15 | RAD ---
HISTORY: intubated COMPARISON: Portable chest 11/17/2017. FINDINGS: Endotracheal tube, right central venous line and pacemaker again identified. LUNGS: Trace patchy atelectasis or infiltrate is again seen the left infrahilar space. Interstitial markings less apparent bilaterally. PLEURA: No significant pleural effusion identified, no pneumothorax apparent. CARDIOVASCULAR: Normal. OSSEOUS STRUCTURES: No significant abnormalities. VISUALIZED UPPER ABDOMEN: Normal. OTHER FINDINGS: None. IMPRESSION: Limited left infrahilar patchy density unchanged with diminishing interstitial pattern bilaterally.
[2017-11-18] MEDS: Nystatin 100,000 Units/gm Topical Pow(15 gm) TOP SCH ×3 (09:39→18:29)
[2017-11-18] MEDS: Fluconazole IV 100mg/50 ml NS 50 ML IVPB SCH (09:45)
[2017-11-18] MEDS: Vancomycin 1 GM in Sodium Chloride 0.9% 200 ML IVPB SCH (10:54)
[2017-11-18 11:33] LABS: BANDS 1 % (0-2); LYMPHOCYTE 7 % (20-40); METAMYELOCYTE 3 % (0-0); MONOCYTE 12 % (0-10); MYELOCYTE 3 % (0-0); NEUTROPHIL 74 % (50-75); TOTAL CELLS COUNTED 100
[2017-11-18 11:34] LABS: ANISOCYTOSIS SLIGHT; LARGE PLATELETS PRESENT; PLATELET ESTIMATE INCREASED (NORMAL)
[2017-11-18 11:35] LABS: HYPOCHROMIC SLIGHT; POLYCHROMIC SLIGHT
[2017-11-18 11:36] LABS: TOXIC GRANULATION PRESENT
--- NOTE | 2017-11-18 14:23 | CP.CCUPN ---
CCU Subjective - Physician Review Events Since Last Encounter (Free Text): 11/18/17 14:19 alert, weak, deconditioned, barely follows commands. CCU Objective - Vital Signs / Intake & Output Intake and Output (Last 8hrs): Intake & Output 11/17/17 11/18/17 11/18/17 22:59 06:59 14:59 Intake Total 380 440 695 Output Total 580 450 488 Balance -200 -10 207 Weight 101 lb 3.2 oz Intake: Intake, IV Amount 100 100 450 Right Distal Port 100 100 350 Internal Jugular Right Medial Port 100 Internal Jugular Tube Feeding 280 280 245 Other 60 Output: Urine 580 450 488 Urethral (Genao) 580 450 488 Other: # Bowel Movements 0 0 0 - Physical Exam Head: Positive for: Atraumatic, Normocephalic Pupils: Positive for: PERRL Conjunctiva: Positive for: Normal Mouth: Positive for: Dry, Other (endotracheal tube in place) Neck: Positive for: Other (Right IJ TLC in place) Respiratory/Chest: Positive for: Decreased Breath Sounds, Other (vented) Cardiovascular: Positive for: Normal S1, S2, Tachycardic Abdomen: Positive for: Distention (but soft), Normal Bowel Sounds, Feeding Tubes (PEG tube), Other (excoriations around PEG tube) Upper Extremity: Positive for: Normal Inspection Lower Extremity: Positive for: Normal Inspection Skin: Positive for: Warm, Dry Psychiatric: Positive for: Alert, Other (intubated/sedated) - Medications Active Medications: Active Medications Generic Name Dose Route Start Last Admin Trade Name Freq PRN Reason Stop Dose Admin Acetaminophen 650 mg 11/10/17 10:52 11/17/17 20:43 Tylenol 650 Mg Supp [place] 650 mg Q6 PRN Administration Fever >100.4 F Acetazolamide 500 mg 11/18/17 11:30 11/18/17 12:24 Diamox 500 Mg Inj IV 11/18/17 23:31 500 mg Q12H JUDY Administration Al Hydrox/Mg Hydrox/Simethicone 30 ml 11/16/17 10:15 Maalox 30 Ml TOP Q6H PRN Other Albuterol/Ipratropium 3 ml 11/10/17 14:00 11/18/17 08:05 Duoneb 3 Mg/0.5 Mg (3 Ml) Ud INH 3 ml RQ6 JUDY Administration Heparin Sodium (Porcine) 5,000 units 11/10/17 06:00 11/18/17 06:24 Heparin SC 5,000 units Q8 JUDY Administration Hydralazine HCl 10 mg 11/16/17 18:54 11/18/17 10:59 Apresoline IVP 10 mg Q6H PRN Administration Systolic Blood Pressure Aztreonam 1 gm/ Sodium 100 mls @ 200 mls/hr 11/10/17 09:30 11/18/17 08:49 Chloride IVPB 200 mls/hr Q8H JUDY Administration Protocol Fluconazole 50 mls @ 100 mls/hr 11/12/17 13:00 11/18/17 09:45 Diflucan Iv 100 Mg/50 Ml Ns IVPB 100 mls/hr DAILY JUDY Administration Protocol Vancomycin HCl 1 gm/ Sodium 200 mls @ 166.7 mls/hr 11/18/17 10:00 11/18/17 10 :54 Chloride IVPB 166.7 mls/hr Q24H JUDY Administration Protocol Insulin Glargine 15 unit 11/17/17 22:00 11/17/17 21:14 Lantus SC 15 units HS JUDY Administration Insulin Human Regular 0 unit 11/10/17 18:00 11/18/17 12:02 Novolin R SC 10 unit Q6H JUDY Administration Protocol Isosorbide Mononitrate 20 mg 11/18/17 12:00 11/18/17 12:27 Ismo PO 20 mg DAILY JUDY Administration Methylprednisolone 20 mg 11/17/17 06:00 11/18/17 06:24 Solu-Medrol IV 20 mg Q12H JUDY Administration Metoprolol Tartrate 5 mg 11/16/17 20:00 11/18/17 08:49 Lopressor IVP 5 mg Q6H JUDY Administration Mupirocin 0 gm 11/12/17 10:15 11/18/17 09:39 Bactroban Ointment TOP 1 applic BID JUDY Administration Nystatin 0 gm 11/12/17 14:00 11/18/17 09:39 Nystop Topical Powder TOP 1 applic TID JUDY Administration Pantoprazole Sodium 40 mg 11/16/17 10:45 11/18/17 06:24 Protonix Susp PO 40 mg 0600 JUDY Administration Verapamil HCl 2.5 mg 11/17/17 22:19 11/18/17 09:40 Verapamil Inj IVP 2.5 mg Q4H PRN Administration Heart rate - Patient Studies Lab Studies: Microbiology Studies 11/15/17 Unknown Gram Stain - Final Trachasp Sputum Culture - Final Staphylococcus Aureus Lab Studies 11/18/17 11/18/17 11/18/17 Range/Units 11:30 07:25 07:25 WBC 17.2 H (4.8-10.8) K/uL RBC 2.80 L (3.80-5.20) Mil/uL Hgb 8.7 L (11.0-16.0) g/dL Hct 25.9 L (34.0-47.0) % MCV 92.8 (81.0-99.0) fL MCH 31.2 H (27.0-31.0) pg MCHC 33.6 (33.0-37.0) g/dL RDW 13.6 (11.5-14.5) % Plt Count 542 H D (130-400) K/uL MPV 7.5 (7.2-11.7) fL Neut % (Auto) 79.0 H (50.0-75.0) % Lymph % (Auto) 9.2 L (20.0-40.0) % [place] % (Auto) 11.5 H (0.0-10.0) % Eos % (Auto) 0.0 (0.0-4.0) % Baso % (Auto) 0.3 (0.0-2.0) % Neut # (Auto) 13.5 H (1.8-7.0) K/uL Lymph # (Auto) 1.6 (1.0-4.3) K/uL [place] # (Auto) 2.0 H (0.0-0.8) K/uL Eos # (Auto) 0.0 (0.0-0.7) K/uL Baso # (Auto) 0.1 (0.0-0.2) K/uL Neutrophils % (Manual) 74 (50-75) % Band Neutrophils % 1 (0-2) % Lymphocytes % (Manual) 7 L (20-40) % Monocytes % (Manual) 12 H (0-10) % Metamyelocytes % 3 H (0-0) % Myelocytes % 3 H (0-0) % Toxic Granulation Present Platelet Estimate Increased H (NORMAL) Large Platelets Present Polychromasia Slight Hypochromasia (manual) Slight Basophilic Stippling Slight Anisocytosis (manual) Slight Puncture Site pCO2 (35-45) mm/Hg pO2 (80-100) mm/Hg HCO3 (21-28) mmol/L ABG pH (7.35-7.45) ABG Total CO2 (22-28) mmol/L ABG O2 Saturation (95-98) % ABG Base Excess (-2.0-3.0) mmol/L ABG Hemoglobin (11.7-17.4) g/dL ABG Carboxyhemoglobin (0.5-1.5) % POC ABG HHb (Measured) (0.0-5.0) % ABG Methemoglobin (0.0-3.0) % Scout Test A-a O2 Difference mm/Hg Respiratory Index Hgb O2 Saturation (95.0-98.0) % Vent Mode Mechanical Rate FiO2 % Tidal Volume PEEP Pressure Support Sodium 152 H (132-148) mmol/L Potassium 3.3 L (3.6-5.2) mmol/L Chloride 106 (98-107) mmol/L Carbon Dioxide 30 (22-30) mmol/L Anion Gap 19 (10-20) BUN 51 H (7-17) mg/dL Creatinine 0.9 (0.7-1.2) mg/dL Est GFR ( Amer) > 60 Est GFR (Non-Af Amer) 59 POC Glucose (mg/dL) 365 H (65-110) mg/dL Random Glucose 216 H (65-105) mg/dL Calcium 10.0 (8.6-10.4) mg/dl Phosphorus 2.9 (2.5-4.5) mg/dL Magnesium 2.7 H (1.6-2.3) mg/dL Total Bilirubin 0.5 (0.2-1.3) mg/dL AST 30 (14-36) U/L ALT 26 (9-52) U/L Alkaline Phosphatase 77 (38-126) U/L Total Protein 8.3 (6.3-8.3) g/dL Albumin 4.0 (3.5-5.0) g/dL Globulin 4.3 H (2.2-3.9) gm/dL Albumin/Globulin Ratio 0.9 L (1.0-2.1) 11/18/17 11/18/17 11/18/17 Range/Units 06:44 05:45 00:11 WBC (4.8-10.8) K/uL RBC (3.80-5.20) Mil/uL Hgb (11.0-16.0) g/dL Hct (34.0-47.0) % MCV (81.0-99.0) fL MCH (27.0-31.0) pg MCHC (33.0-37.0) g/dL RDW (11.5-14.5) % Plt Count (130-400) K/uL MPV (7.2-11.7) fL Neut % (Auto) (50.0-75.0) % Lymph % (Auto) (20.0-40.0) % [place] % (Auto) (0.0-10.0) % Eos % (Auto) (0.0-4.0) % Baso % (Auto) (0.0-2.0) % Neut # (Auto) (1.8-7.0) K/uL Lymph # (Auto) (1.0-4.3) K/uL [place] # (Auto) (0.0-0.8) K/uL Eos # (Auto) (0.0-0.7) K/uL Baso # (Auto) (0.0-0.2) K/uL Neutrophils % (Manual) (50-75) % Band Neutrophils % (0-2) % Lymphocytes % (Manual) (20-40) % Monocytes % (Manual) (0-10) % Metamyelocytes % (0-0) % Myelocytes % (0-0) % Toxic Granulation Platelet Estimate (NORMAL) Large Platelets Polychromasia Hypochromasia (manual) Basophilic Stippling Anisocytosis (manual) Puncture Site Rradial pCO2 42 (35-45) mm/Hg pO2 180 H (80-100) mm/Hg HCO3 33.8 H (21-28) mmol/L ABG pH 7.53 H (7.35-7.45) ABG Total CO2 36.4 H (22-28) mmol/L ABG O2 Saturation 99.8 H (95-98) % ABG Base Excess 11.3 H (-2.0-3.0) mmol/L ABG Hemoglobin 8.4 L (11.7-17.4) g/dL ABG Carboxyhemoglobin 1.9 H (0.5-1.5) % POC ABG HHb (Measured) 0.2 (0.0-5.0) % ABG Methemoglobin 1.0 (0.0-3.0) % Scout Test Pos A-a O2 Difference 53.0 mm/Hg Respiratory Index 0.3 Hgb O2 Saturation 96.9 (95.0-98.0) % Vent Mode Simv/ps Mechanical Rate 10 FiO2 40.0 % Tidal Volume 400 PEEP 5 Pressure Support 15 Sodium (132-148) mmol/L Potassium (3.6-5.2) mmol/L Chloride (98-107) mmol/L Carbon Dioxide (22-30) mmol/L Anion Gap (10-20) BUN (7-17) mg/dL Creatinine (0.7-1.2) mg/dL Est GFR ( Amer) Est GFR (Non-Af Amer) POC Glucose (mg/dL) 196 H 355 H (65-110) mg/dL Random Glucose (65-105) mg/dL Calcium (8.6-10.4) mg/dl Phosphorus (2.5-4.5) mg/dL Magnesium (1.6-2.3) mg/dL Total Bilirubin (0.2-1.3) mg/dL AST (14-36) U/L ALT (9-52) U/L Alkaline Phosphatase (38-126) U/L Total Protein (6.3-8.3) g/dL Albumin (3.5-5.0) g/dL Globulin (2.2-3.9) gm/dL Albumin/Globulin Ratio (1.0-2.1) 11/17/17 Range/Units 17:45 WBC (4.8-10.8) K/uL RBC (3.80-5.20) Mil/uL Hgb (11.0-16.0) g/dL Hct (34.0-47.0) % MCV (81.0-99.0) fL MCH (27.0-31.0) pg MCHC (33.0-37.0) g/dL RDW (11.5-14.5) % Plt Count (130-400) K/uL MPV (7.2-11.7) fL Neut % (Auto) (50.0-75.0) % Lymph % (Auto) (20.0-40.0) % [place] % (Auto) (0.0-10.0) % Eos % (Auto) (0.0-4.0) % Baso % (Auto) (0.0-2.0) % Neut # (Auto) (1.8-7.0) K/uL Lymph # (Auto) (1.0-4.3) K/uL [place] # (Auto) (0.0-0.8) K/uL Eos # (Auto) (0.0-0.7) K/uL Baso # (Auto) (0.0-0.2) K/uL Neutrophils % (Manual) (50-75) % Band Neutrophils % (0-2) % Lymphocytes % (Manual) (20-40) % Monocytes % (Manual) (0-10) % Metamyelocytes % (0-0) % Myelocytes % (0-0) % Toxic Granulation Platelet Estimate (NORMAL) Large Platelets Polychromasia Hypochromasia (manual) Basophilic Stippling Anisocytosis (manual) Puncture Site pCO2 (35-45) mm/Hg pO2 (80-100) mm/Hg HCO3 (21-28) mmol/L ABG pH (7.35-7.45) ABG Total CO2 (22-28) mmol/L ABG O2 Saturation (95-98) % ABG Base Excess (-2.0-3.0) mmol/L ABG Hemoglobin (11.7-17.4) g/dL ABG Carboxyhemoglobin (0.5-1.5) % POC ABG HHb (Measured) (0.0-5.0) % ABG Methemoglobin (0.0-3.0) % Scout Test A-a O2 Difference mm/Hg Respiratory Index Hgb O2 Saturation (95.0-98.0) % Vent Mode Mechanical Rate FiO2 % Tidal Volume PEEP Pressure Support Sodium (132-148) mmol/L Potassium (3.6-5.2) mmol/L Chloride (98-107) mmol/L Carbon Dioxide (22-30) mmol/L Anion Gap (10-20) BUN (7-17) mg/dL Creatinine (0.7-1.2) mg/dL Est GFR ( Amer) Est GFR (Non-Af Amer) POC Glucose (mg/dL) 299 H (65-110) mg/dL Random Glucose (65-105) mg/dL Calcium (8.6-10.4) mg/dl Phosphorus (2.5-4.5) mg/dL Magnesium (1.6-2.3) mg/dL Total Bilirubin (0.2-1.3) mg/dL AST (14-36) U/L ALT (9-52) U/L Alkaline Phosphatase (38-126) U/L Total Protein (6.3-8.3) g/dL Albumin (3.5-5.0) g/dL Globulin (2.2-3.9) gm/dL Albumin/Globulin Ratio (1.0-2.1) Laboratory Results - last 24 hr 11/17/17 11/18/17 11/18/17 17:45 00:11 05:45 WBC RBC Hgb Hct MCV MCH MCHC RDW Plt Count MPV Neut % (Auto) Lymph % (Auto) [place] % (Auto) Eos % (Auto) Baso % (Auto) Neut # (Auto) Lymph # (Auto) [place] # (Auto) Eos # (Auto) Baso # (Auto) Neutrophils % (Manual) Band Neutrophils % Lymphocytes % (Manual) Monocytes % (Manual) Metamyelocytes % Myelocytes % Toxic Granulation Platelet Estimate Large Platelets Polychromasia Hypochromasia (manual) Basophilic Stippling Anisocytosis (manual) Puncture Site Rradial pCO2 42 pO2 180 H HCO3 33.8 H ABG pH 7.53 H ABG Total CO2 36.4 H ABG O2 Saturation 99.8 H ABG Base Excess 11.3 H ABG Hemoglobin 8.4 L ABG Carboxyhemoglobin 1.9 H POC ABG HHb (Measured) 0.2 ABG Methemoglobin 1.0 Scout Test Pos A-a O2 Difference 53.0 Respiratory Index 0.3 Hgb O2 Saturation 96.9 Vent Mode Simv/ps Mechanical Rate 10 FiO2 40.0 Tidal Volume 400 PEEP 5 Pressure Support 15 Sodium Potassium Chloride Carbon Dioxide Anion Gap BUN Creatinine Est GFR ( Amer) Est GFR (Non-Af Amer) POC Glucose (mg/dL) 299 H 355 H Random Glucose Calcium Phosphorus Magnesium Total Bilirubin AST ALT Alkaline Phosphatase Total Protein Albumin Globulin Albumin/Globulin Ratio 11/18/17 11/18/17 11/18/17 06:44 07:25 07:25 WBC 17.2 H RBC 2.80 L Hgb 8.7 L Hct 25.9 L MCV 92.8 MCH 31.2 H MCHC 33.6 RDW 13.6 Plt Count 542 H D MPV 7.5 Neut % (Auto) 79.0 H Lymph % (Auto) 9.2 L [place] % (Auto) 11.5 H Eos % (Auto) 0.0 Baso % (Auto) 0.3 Neut # (Auto) 13.5 H Lymph # (Auto) 1.6 [place] # (Auto) 2.0 H Eos # (Auto) 0.0 Baso # (Auto) 0.1 Neutrophils % (Manual) 74 Band Neutrophils % 1 Lymphocytes % (Manual) 7 L Monocytes % (Manual) 12 H Metamyelocytes % 3 H Myelocytes % 3 H Toxic Granulation Present Platelet Estimate Increased H Large Platelets Present Polychromasia Slight Hypochromasia (manual) Slight Basophilic Stippling Slight Anisocytosis (manual) Slight Puncture Site pCO2 pO2 HCO3 ABG pH ABG Total CO2 ABG O2 Saturation ABG Base Excess ABG Hemoglobin ABG Carboxyhemoglobin POC ABG HHb (Measured) ABG Methemoglobin Scout Test A-a O2 Difference Respiratory Index Hgb O2 Saturation Vent Mode Mechanical Rate FiO2 Tidal Volume PEEP Pressure Support Sodium 152 H Potassium 3.3 L Chloride 106 Carbon Dioxide 30 Anion Gap 19 BUN 51 H Creatinine 0.9 Est GFR ( Amer) > 60 Est GFR (Non-Af Amer) 59 POC Glucose (mg/dL) 196 H Random Glucose 216 H Calcium 10.0 Phosphorus 2.9 Magnesium 2.7 H Total Bilirubin 0.5 AST 30 ALT 26 Alkaline Phosphatase 77 Total Protein 8.3 Albumin 4.0 Globulin 4.3 H Albumin/Globulin Ratio 0.9 L 11/18/17 11:30 WBC RBC Hgb Hct MCV MCH MCHC RDW Plt Count MPV Neut % (Auto) Lymph % (Auto) [place] % (Auto) Eos % (Auto) Baso % (Auto) Neut # (Auto) Lymph # (Auto) [place] # (Auto) Eos # (Auto) Baso # (Auto) Neutrophils % (Manual) Band Neutrophils % Lymphocytes % (Manual) Monocytes % (Manual) Metamyelocytes % Myelocytes % Toxic Granulation Platelet Estimate Large Platelets Polychromasia Hypochromasia (manual) Basophilic Stippling Anisocytosis (manual) Puncture Site pCO2 pO2 HCO3 ABG pH ABG Total CO2 ABG O2 Saturation ABG Base Excess ABG Hemoglobin ABG Carboxyhemoglobin POC ABG HHb (Measured) ABG Methemoglobin Scout Test A-a O2 Difference Respiratory Index Hgb O2 Saturation Vent Mode Mechanical Rate FiO2 Tidal Volume PEEP Pressure Support Sodium Potassium Chloride Carbon Dioxide Anion Gap BUN Creatinine Est GFR ( Amer) Est GFR (Non-Af Amer) POC Glucose (mg/dL) 365 H Random Glucose Calcium Phosphorus Magnesium Total Bilirubin AST ALT Alkaline Phosphatase Total Protein Albumin Globulin Albumin/Globulin Ratio EKG/Cardiology Studies: Cardiology / EKG Studies 11/18/17 13:22 EKG [ELECTROCARDIOGRAM] Stat Comment: Mode Of Transportation: Reason For Exam: Pacemaker abnormality Isolation: Contact 11/18/17 13:33 EKG [ELECTROCARDIOGRAM] Stat Comment: Mode Of Transportation: Reason For Exam: Pacemaker abnormality Isolation: Contact Fingerstick Blood Sugar Results: 365 Review of Systems - Review of Systems Systems not reviewed;Unavailable: Intubated Critical Care Progress Note - Nutrition Nutrition: Nutrition Category Date Time Status NPO Diet [DIET] Diets 11/09/17 Breakfast Active Assessment/Plan (1) Respiratory failure with hypoxia Assessment and plan: 87yo F. PMHx achalasia, DM, CAD, COPD, osteoarthritis p/w acute respiratory failure secondary to suspected aspiration pneumonia requiring intubation. Neuro: alert, but weak and barely responsive. Pulm: acute respiratory failure, secondary to COPD exacerbation with initially suspected aspiration. Patient has now been intubated for a prolonged time period tolerated PS for 3 hours today, with many periods of apnea in between. Will most likely need a trach. COPD continue methylprednisolone. CV: HTN, no longer having severe episodes of hypotension, restarting oral Isosorbide Mononitrate daily. Using prn IV hydralazine pushes and IV lopressor RTC for tachycardia. Hem: anemia of chronic disease. Renal: no acute issues, urine output wnl. metabolic alkalosis from diuresis, Acetazolamide x 2 doses. Hypernatremia from diuresis, 1 dose of HCTZ. Endo: DM type 2, RISS for coverage. GI: NPO, [email or web address] ID: sepsis from infected PEG site, continue Aztreonam (Klebsiella pneumonia), Vancomycin (MRSA +), and Fluconazole ([place]amile). DVT proph - heparin sq GI proph - protonix genao for strict I/O's during acute illness Code status - full code Critical Care Time spent 35 minutes Multi-disciplinary rounds were performed with house staff, nursing, speech therapy, respiratory therapy, pharmacy and nutrition with integrated input from the primary team/attending and other consulting services. The documented time is cumulative and includes review of patient data/exams/labs/chart review and examination of the patient on rounds and throughout the day; time is exclusive of any procedures or teaching time. Current Visit: Yes Status: Acute
--- NOTE | 2017-11-18 20:49 | CP.PCM.PN ---
Subjective - Date & Time of Evaluation Date of Evaluation: 11/18/17 Time of Evaluation: 18:00 - Subjective Subjective: Pt seen and evaluated Intubated. Earlier telemetry events noted. Not in distress. Objective - Vital Signs/Intake and Output Vital Signs (last 24 hours): Temp Pulse Resp BP Pulse Ox 98.6 F 129 H 24 135/77 99 11/18/17 16:00 11/18/17 19:43 11/18/17 19:43 11/18/17 19:43 11/18/17 19:43 Intake and Output: 11/18/17 11/19/17 18:59 06:59 Intake Total 970 35 Output Total 848 Balance 122 35 - Medications Medications: Current Medications Acetaminophen (Tylenol 650 Mg Supp) 650 mg MD Q6 PRN PRN Reason: Fever >100.4 F Last Admin: 11/17/17 20:43 Dose: 650 mg Acetazolamide (Diamox 500 Mg Inj) 500 mg IV Q12H [facility] Stop: 11/18/17 23:31 Last Admin: 11/18/17 12:24 Dose: 500 mg Al Hydrox/Mg Hydrox/Simethicone (Maalox 30 Ml) 30 ml TOP Q6H PRN PRN Reason: Other Albuterol/Ipratropium (Duoneb 3 Mg/0.5 Mg (3 Ml) Ud) 3 ml INH RQ6 JDUY Last Admin: 11/18/17 19:38 Dose: 3 ml Heparin Sodium (Porcine) (Heparin) 5,000 units SC Q8 JUDY Last Admin: 11/18/17 15:22 Dose: 5,000 units Hydralazine HCl (Apresoline) 10 mg IVP Q6H PRN PRN Reason: Systolic Blood Pressure Last Admin: 11/18/17 10:59 Dose: 10 mg Aztreonam 1 gm/ Sodium (Chloride) 100 mls @ 200 mls/hr IVPB Q8H JUDY PRN Reason: Protocol Last Admin: 11/18/17 18:21 Dose: 200 mls/hr Fluconazole (Diflucan Iv 100 Mg/50 Ml Ns) 50 mls @ 100 mls/hr IVPB DAILY JUDY PRN Reason: Protocol Last Admin: 11/18/17 09:45 Dose: 100 mls/hr Vancomycin HCl 1 gm/ Sodium (Chloride) 200 mls @ 166.7 mls/hr IVPB Q24H [facility] PRN Reason: Protocol Last Admin: 11/18/17 10:54 Dose: 166.7 mls/hr Insulin Glargine (Lantus) 15 unit SC HS [facility] Last Admin: 11/17/17 21:14 Dose: 15 units Insulin Human Regular (Novolin R) 0 unit SC Q6H [facility] PRN Reason: Protocol Last Admin: 11/18/17 18:23 Dose: 8 unit Isosorbide Mononitrate (Ismo) 20 mg PO DAILY [facility] Last Admin: 11/18/17 12:27 Dose: 20 mg Methylprednisolone (Solu-Medrol) 20 mg IV Q12H [facility] Last Admin: 11/18/17 18:26 Dose: 20 mg Metoprolol Tartrate (Lopressor) 5 mg IVP Q6H [facility] Last Admin: 11/18/17 20:36 Dose: 5 mg Modafinil (Provigil) 100 mg PO DAILY [facility] Last Admin: 11/18/17 15:22 Dose: 100 mg Mupirocin (Bactroban Ointment) 0 gm TOP BID [facility] Last Admin: 11/18/17 18:29 Dose: 1 applic Nystatin (Nystop Topical Powder) 0 gm TOP TID [facility] Last Admin: 11/18/17 18:29 Dose: 1 applic Pantoprazole Sodium (Protonix Susp) 40 mg PO 0600 [facility] Last Admin: 11/18/17 06:24 Dose: 40 mg Verapamil HCl (Verapamil Inj) 2.5 mg IVP Q4H PRN PRN Reason: Heart rate Last Admin: 11/18/17 18:29 Dose: 2.5 mg - Labs Labs: 11/18/17 07:25 11/18/17 07:25 - Constitutional Appears: Non-toxic - Head Exam Head Exam: ATRAUMATIC - Eye Exam Additional comments: unable is intubated . - ENT Exam ENT Exam: Mucous Membranes Moist - Neck Exam Neck Exam: Normal Inspection - Respiratory Exam Respiratory Exam: Decreased Breath Sounds - Cardiovascular Exam Cardiovascular Exam: REGULAR RHYTHM, +S1, +S2 - GI/Abdominal Exam GI & Abdominal Exam: Soft, Normal Bowel Sounds - Extremities Exam Extremities Exam: absent: Pedal Edema - Neurological Exam Additional comments: intubated - Skin Skin Exam: Dry, Warm Assessment and Plan - Assessment and Plan (Free Text) Assessment: 1. Respiratory failure. 2. History of CAD. 3. HTN 4. Pneumonia 5. Cardiac arrythmias Plan: 1. Cardiac point of view continue Metoprolol, Aspirin and Heparin subcu. 2. No further recommendation at this time.
[2017-11-18] MEDS: (Lantus) Insulin Glargine, Recombinant SC SCH (22:30)
[2017-11-19] MEDS ORDERED: metroNIDAZOLE IV 250mg/50 ml 250 MG/50 ML BAG IVPB SCH
[2017-11-19] MEDS: Aztreonam 1 GM in Sodium Chloride 0.9% 100 ML IVPB SCH ×3 (01:30→17:15)
[2017-11-19] MEDS: Albuterol-Ipratrop 3 mg / 0.5 (3 ml) UD INH SCH ×4 (01:41→21:07)
[2017-11-19] MEDS: Metoprolol 1 mg/ml Inj IVP SCH ×2 (02:00→07:54)
[2017-11-19] MEDS: MethylPREDNISolone 40 mg Vial IV SCH (05:45)
[2017-11-19] MEDS: Pantoprazole 40 mg Susp UD PO SCH (05:48)
[2017-11-19 05:55] LABS: ABG ALLEN TEST POS; ARTERIAL BLOOD GAS HCO3 29.2 mmol/L (21-28); ARTERIAL BLOOD GAS HEMOGLOBIN 8.8 g/dL (11.7-17.4); ARTERIAL BLOOD GAS O2 SAT 99.4 % (95-98); ARTERIAL BLOOD GAS PCO2 46 mm/Hg (35-45); ARTERIAL BLOOD GAS PH 7.43 (7.35-7.45); ARTERIAL BLOOD GAS PO2 187 mm/Hg (80-100); ARTERIAL BLOOD GAS TCO2 31.9 mmol/L (22-28)
[2017-11-19 06:28] LABS: BASO % 0.1 % (0.0-2.0); HEMOGLOBIN 8.7 g/dL (11.0-16.0); LYMPH # 1.2 K/uL (1.0-4.3); LYMPH % 8.7 % (20.0-40.0); MEAN CELL VOLUME 96.1 fL (81.0-99.0); MEAN CORPUSCULAR HEMOGLOBIN 31.5 pg (27.0-31.0); MEAN CORPUSCULAR HGB CONC 32.8 g/dL (33.0-37.0); MEAN PLATELET VOLUME 7.9 fL (7.2-11.7); MONO # 1.7 K/uL (0.0-0.8); NEUT % 79.2 % (50.0-75.0); NRBC % 0.1 % (0.0-2.0); PLATELET COUNT 562 K/uL (130-400); RBC 2.75 Mil/uL (3.80-5.20); RED CELL DISTRIBUTION WIDTH 14.3 % (11.5-14.5); WHITE BLOOD COUNT 13.9 K/uL (4.8-10.8)
[2017-11-19] MEDS: (Novolin R) Insulin Human Regular 100 units/ml vial SC SCH ×3 (06:42→17:35)
[2017-11-19 06:46] LABS: ALB/GLOB RATIO 0.9 (1.0-2.1); ALBUMIN 3.8 g/dL (3.5-5.0); CALCIUM 9.6 mg/dl (8.6-10.4)
--- NOTE | 2017-11-19 07:59 | RAD ---
Chest x-ray single frontal view History: Follow-up. Comparison: 11/18/2017 Findings: Endotracheal tube extending into midthoracic trachea. Other lines and tubes stable. Left-sided pacemaker. Status post median sternotomy CABG. Calcification at the aortic knob. Surgical clips the left upper abdomen. Mild venous congestion. Biapical pleural thickening with upper lobe granulomatous changes. Right hilar prominence. Degenerative changes spine and shoulders. Impression: Mild venous congestion. Biapical pleural thickening with upper lobe granulomatous changes. Right hilar prominence.
[2017-11-19] MEDS ORDERED: Potassium Chloride 20 mEq/15 ml LIQ UD PEG ONE (08:00)
[2017-11-19 08:17] LABS: BANDS 5 % (0-2); HYPOCHROMIC SLIGHT; LYMPHOCYTE 4 % (20-40); MONOCYTE 5 % (0-10); NEUTROPHIL 86 % (50-75); NUCLEATED RED BLOOD CELL 1 % (0-0); PLATELET ESTIMATE INCREASED (NORMAL); TOTAL CELLS COUNTED 100
[2017-11-19 08:18] LABS: POLYCHROMIC SLIGHT; TEARDROP CELLS SLIGHT
[2017-11-19] MEDS: Fluconazole IV 100mg/50 ml NS 50 ML IVPB SCH (09:35)
[2017-11-19] MEDS: Vancomycin 1 GM in Sodium Chloride 0.9% 200 ML IVPB SCH (09:39)
[2017-11-19] MEDS: Nystatin 100,000 Units/gm Topical Pow(15 gm) TOP SCH ×3 (09:46→17:17)
--- NOTE | 2017-11-19 11:53 | CP.CCUPN ---
CCU Subjective - Physician Review Subjective (Free Text): 11/19/17 11:43 Patient seen and examined. Patient is intubated but off of sedation. She is very lethargic and unable to follow commands. CCU Objective - Vital Signs / Intake & Output Vital Signs (Last 4 hours): Vital Signs Temp Pulse Resp BP Pulse Ox 11/19/17 11:00 102 H 16 100 11/19/17 10:00 110 H 11 L 100 11/19/17 09:00 118 H 19 100 11/19/17 08:00 100.1 F H 105 H 10 L 164/84 H 100 11/19/17 07:55 120 H 10 L 164/84 H 100 Intake and Output (Last 8hrs): Intake & Output 11/18/17 11/19/17 11/19/17 22:59 06:59 14:59 Intake Total 380 430 390 Output Total 413 415 40 Balance -33 15 350 Weight 103 lb Intake: Intake, IV Amount 100 100 250 Right Distal Port 100 100 250 Internal Jugular Tube Feeding 280 280 140 Other 50 Output: Urine 413 415 40 Urethral (Gregory) 413 415 40 Other: # Bowel Movements 0 - Physical Exam Head: Positive for: Atraumatic, Normocephalic Pupils: Positive for: PERRL Conjunctiva: Positive for: Normal Mouth: Positive for: Dry, Other (endotracheal tube in place) Neck: Positive for: Other (Right IJ TLC in place) Respiratory/Chest: Positive for: Decreased Breath Sounds, Other (vented) Cardiovascular: Positive for: Normal S1, S2, Tachycardic Abdomen: Positive for: Distention (but soft), Normal Bowel Sounds, Feeding Tubes (PEG tube), Other (excoriations around PEG tube) Upper Extremity: Positive for: Normal Inspection Lower Extremity: Positive for: Normal Inspection Skin: Positive for: Warm, Dry Psychiatric: Positive for: Lethargic - Medications Active Medications: Active Medications Generic Name Dose Route Start Last Admin Trade Name Freq PRN Reason Stop Dose Admin Acetaminophen 650 mg 11/10/17 10:52 11/17/17 20:43 Tylenol 650 Mg Supp CO 650 mg Q6 PRN Administration Fever >100.4 F Al Hydrox/Mg Hydrox/Simethicone 30 ml 11/16/17 10:15 Maalox 30 Ml TOP Q6H PRN Other Albuterol/Ipratropium 3 ml 11/10/17 14:00 11/19/17 08:21 Duoneb 3 Mg/0.5 Mg (3 Ml) Ud INH 3 ml RQ6 JUDY Administration Heparin Sodium (Porcine) 5,000 units 11/10/17 06:00 11/19/17 05:46 Heparin SC 5,000 units Q8 JUDY Administration Hydralazine HCl 10 mg 11/16/17 18:54 11/18/17 10:59 Apresoline IVP 10 mg Q6H PRN Administration Systolic Blood Pressure Aztreonam 1 gm/ Sodium 100 mls @ 200 mls/hr 11/10/17 09:30 11/19/17 09:38 Chloride IVPB 200 mls/hr Q8H JUDY Administration Protocol Fluconazole 50 mls @ 100 mls/hr 11/12/17 13:00 11/19/17 09:35 Diflucan Iv 100 Mg/50 Ml Ns IVPB 100 mls/hr DAILY JUDY Administration Protocol Vancomycin HCl 1 gm/ Sodium 200 mls @ 166.7 mls/hr 11/18/17 10:00 11/19/17 09 :39 Chloride IVPB 166.7 mls/hr Q24H JUDY Administration Protocol Insulin Glargine 15 unit 11/17/17 22:00 11/18/17 22:30 Lantus SC 15 units HS JUDY Administration Insulin Human Regular 0 unit 11/10/17 18:00 11/19/17 06:42 Novolin R SC 8 unit Q6H JUDY Administration Protocol Isosorbide Mononitrate 20 mg 11/18/17 12:00 11/19/17 09:45 Ismo PO 20 mg DAILY JUDY Administration Methylprednisolone 20 mg 11/20/17 10:00 Solu-Medrol IV 11/22/17 10:01 DAILY [facility] Metoprolol Tartrate 50 mg 11/19/17 18:00 Lopressor PO BID JUDY Modafinil 100 mg 11/18/17 15:00 11/19/17 09:43 Provigil PO 100 mg DAILY [facility] Administration Mupirocin 0 gm 11/12/17 10:15 11/19/17 09:46 Bactroban Ointment TOP 1 applic BID JUDY Administration Nystatin 0 gm 11/12/17 14:00 11/19/17 09:46 Nystop Topical Powder TOP 1 applic TID JUDY Administration Pantoprazole Sodium 40 mg 11/16/17 10:45 11/19/17 05:48 Protonix Susp PO 40 mg 0600 JUDY Administration Verapamil HCl 2.5 mg 11/17/17 22:19 11/18/17 18:29 Verapamil Inj IVP 2.5 mg Q4H PRN Administration Heart rate - Patient Studies Lab Studies: Lab Studies 11/19/17 11/19/17 11/19/17 Range/Units 11:21 06:30 06:01 WBC (4.8-10.8) K/uL RBC (3.80-5.20) Mil/uL Hgb (11.0-16.0) g/dL Hct (34.0-47.0) % MCV (81.0-99.0) fL MCH (27.0-31.0) pg MCHC (33.0-37.0) g/dL RDW (11.5-14.5) % Plt Count (130-400) K/uL MPV (7.2-11.7) fL Neut % (Auto) (50.0-75.0) % Lymph % (Auto) (20.0-40.0) % Foster % (Auto) (0.0-10.0) % Eos % (Auto) (0.0-4.0) % Baso % (Auto) (0.0-2.0) % Neut # (Auto) (1.8-7.0) K/uL Lymph # (Auto) (1.0-4.3) K/uL Foster # (Auto) (0.0-0.8) K/uL Eos # (Auto) (0.0-0.7) K/uL Baso # (Auto) (0.0-0.2) K/uL Neutrophils % (Manual) (50-75) % Band Neutrophils % (0-2) % Lymphocytes % (Manual) (20-40) % Monocytes % (Manual) (0-10) % Nucleated RBC % (0-0) % Platelet Estimate (NORMAL) Polychromasia Hypochromasia (manual) Tear Drop Cells Puncture Site pCO2 (35-45) mm/Hg pO2 (80-100) mm/Hg HCO3 (21-28) mmol/L ABG pH (7.35-7.45) ABG Total CO2 (22-28) mmol/L ABG O2 Saturation (95-98) % ABG Base Excess (-2.0-3.0) mmol/L ABG Hemoglobin (11.7-17.4) g/dL ABG Carboxyhemoglobin (0.5-1.5) % POC ABG HHb (Measured) (0.0-5.0) % ABG Methemoglobin (0.0-3.0) % Scout Test A-a O2 Difference mm/Hg Respiratory Index Hgb O2 Saturation (95.0-98.0) % Vent Mode Mechanical Rate FiO2 % Tidal Volume PEEP Sodium 153 H (132-148) mmol/L Potassium 3.5 L (3.6-5.2) mmol/L Chloride 112 H (98-107) mmol/L Carbon Dioxide 26 (22-30) mmol/L Anion Gap 20 (10-20) BUN 53 H (7-17) mg/dL Creatinine 1.2 (0.7-1.2) mg/dL Est GFR ( Amer) 52 Est GFR (Non-Af Amer) 43 POC Glucose (mg/dL) 291 H 321 H (65-110) mg/dL Random Glucose 335 H (65-105) mg/dL Calcium 9.6 (8.6-10.4) mg/dl Phosphorus 3.6 (2.5-4.5) mg/dL Magnesium 2.7 H (1.6-2.3) mg/dL Total Bilirubin 0.6 (0.2-1.3) mg/dL AST 35 (14-36) U/L ALT 26 (9-52) U/L Alkaline Phosphatase 73 (38-126) U/L Total Protein 7.9 (6.3-8.3) g/dL Albumin 3.8 (3.5-5.0) g/dL Globulin 4.1 H (2.2-3.9) gm/dL Albumin/Globulin Ratio 0.9 L (1.0-2.1) 11/19/17 11/19/17 11/18/17 Range/Units 06:01 05:40 23:33 WBC 13.9 H (4.8-10.8) K/uL RBC 2.75 L (3.80-5.20) Mil/uL Hgb 8.7 L (11.0-16.0) g/dL Hct 26.5 L (34.0-47.0) % MCV 96.1 D (81.0-99.0) fL MCH 31.5 H (27.0-31.0) pg MCHC 32.8 L (33.0-37.0) g/dL RDW 14.3 (11.5-14.5) % Plt Count 562 H (130-400) K/uL MPV 7.9 (7.2-11.7) fL Neut % (Auto) 79.2 H (50.0-75.0) % Lymph % (Auto) 8.7 L (20.0-40.0) % Foster % (Auto) 12.0 H (0.0-10.0) % Eos % (Auto) 0.0 (0.0-4.0) % Baso % (Auto) 0.1 (0.0-2.0) % Neut # (Auto) 11.0 H (1.8-7.0) K/uL Lymph # (Auto) 1.2 (1.0-4.3) K/uL Foster # (Auto) 1.7 H (0.0-0.8) K/uL Eos # (Auto) 0.0 (0.0-0.7) K/uL Baso # (Auto) 0.0 (0.0-0.2) K/uL Neutrophils % (Manual) 86 H (50-75) % Band Neutrophils % 5 H (0-2) % Lymphocytes % (Manual) 4 L (20-40) % Monocytes % (Manual) 5 (0-10) % Nucleated RBC % 1 H (0-0) % Platelet Estimate Increased H (NORMAL) Polychromasia Slight Hypochromasia (manual) Slight Tear Drop Cells Slight Puncture Site R rad pCO2 46 H (35-45) mm/Hg pO2 187 H (80-100) mm/Hg HCO3 29.2 H (21-28) mmol/L ABG pH 7.43 (7.35-7.45) ABG Total CO2 31.9 H (22-28) mmol/L ABG O2 Saturation 99.4 H (95-98) % ABG Base Excess 5.5 H (-2.0-3.0) mmol/L ABG Hemoglobin 8.8 L (11.7-17.4) g/dL ABG Carboxyhemoglobin 1.8 H (0.5-1.5) % POC ABG HHb (Measured) 0.6 (0.0-5.0) % ABG Methemoglobin 2.0 (0.0-3.0) % Scout Test Pos A-a O2 Difference 41.0 mm/Hg Respiratory Index 0.2 Hgb O2 Saturation 95.6 (95.0-98.0) % Vent Mode Prvc Mechanical Rate 10 FiO2 40.0 % Tidal Volume 400 PEEP 5 Sodium (132-148) mmol/L Potassium (3.6-5.2) mmol/L Chloride (98-107) mmol/L Carbon Dioxide (22-30) mmol/L Anion Gap (10-20) BUN (7-17) mg/dL Creatinine (0.7-1.2) mg/dL Est GFR ( Amer) Est GFR (Non-Af Amer) POC Glucose (mg/dL) 361 H (65-110) mg/dL Random Glucose (65-105) mg/dL Calcium (8.6-10.4) mg/dl Phosphorus (2.5-4.5) mg/dL Magnesium (1.6-2.3) mg/dL Total Bilirubin (0.2-1.3) mg/dL AST (14-36) U/L ALT (9-52) U/L Alkaline Phosphatase (38-126) U/L Total Protein (6.3-8.3) g/dL Albumin (3.5-5.0) g/dL Globulin (2.2-3.9) gm/dL Albumin/Globulin Ratio (1.0-2.1) 11/18/17 Range/Units 17:40 WBC (4.8-10.8) K/uL RBC (3.80-5.20) Mil/uL Hgb (11.0-16.0) g/dL Hct (34.0-47.0) % MCV (81.0-99.0) fL MCH (27.0-31.0) pg MCHC (33.0-37.0) g/dL RDW (11.5-14.5) % Plt Count (130-400) K/uL MPV (7.2-11.7) fL Neut % (Auto) (50.0-75.0) % Lymph % (Auto) (20.0-40.0) % Foster % (Auto) (0.0-10.0) % Eos % (Auto) (0.0-4.0) % Baso % (Auto) (0.0-2.0) % Neut # (Auto) (1.8-7.0) K/uL Lymph # (Auto) (1.0-4.3) K/uL Foster # (Auto) (0.0-0.8) K/uL Eos # (Auto) (0.0-0.7) K/uL Baso # (Auto) (0.0-0.2) K/uL Neutrophils % (Manual) (50-75) % Band Neutrophils % (0-2) % Lymphocytes % (Manual) (20-40) % Monocytes % (Manual) (0-10) % Nucleated RBC % (0-0) % Platelet Estimate (NORMAL) Polychromasia Hypochromasia (manual) Tear Drop Cells Puncture Site pCO2 (35-45) mm/Hg pO2 (80-100) mm/Hg HCO3 (21-28) mmol/L ABG pH (7.35-7.45) ABG Total CO2 (22-28) mmol/L ABG O2 Saturation (95-98) % ABG Base Excess (-2.0-3.0) mmol/L ABG Hemoglobin (11.7-17.4) g/dL ABG Carboxyhemoglobin (0.5-1.5) % POC ABG HHb (Measured) (0.0-5.0) % ABG Methemoglobin (0.0-3.0) % Scout Test A-a O2 Difference mm/Hg Respiratory Index Hgb O2 Saturation (95.0-98.0) % Vent Mode Mechanical Rate FiO2 % Tidal Volume PEEP Sodium (132-148) mmol/L Potassium (3.6-5.2) mmol/L Chloride (98-107) mmol/L Carbon Dioxide (22-30) mmol/L Anion Gap (10-20) BUN (7-17) mg/dL Creatinine (0.7-1.2) mg/dL Est GFR ( Amer) Est GFR (Non-Af Amer) POC Glucose (mg/dL) 321 H (65-110) mg/dL Random Glucose (65-105) mg/dL Calcium (8.6-10.4) mg/dl Phosphorus (2.5-4.5) mg/dL Magnesium (1.6-2.3) mg/dL Total Bilirubin (0.2-1.3) mg/dL AST (14-36) U/L ALT (9-52) U/L Alkaline Phosphatase (38-126) U/L Total Protein (6.3-8.3) g/dL Albumin (3.5-5.0) g/dL Globulin (2.2-3.9) gm/dL Albumin/Globulin Ratio (1.0-2.1) Laboratory Results - last 24 hr 11/18/17 11/18/17 11/19/17 17:40 23:33 05:40 WBC RBC Hgb Hct MCV MCH MCHC RDW Plt Count MPV Neut % (Auto) Lymph % (Auto) Foster % (Auto) Eos % (Auto) Baso % (Auto) Neut # (Auto) Lymph # (Auto) Foster # (Auto) Eos # (Auto) Baso # (Auto) Neutrophils % (Manual) Band Neutrophils % Lymphocytes % (Manual) Monocytes % (Manual) Nucleated RBC % Platelet Estimate Polychromasia Hypochromasia (manual) Tear Drop Cells Puncture Site R rad pCO2 46 H pO2 187 H HCO3 29.2 H ABG pH 7.43 ABG Total CO2 31.9 H ABG O2 Saturation 99.4 H ABG Base Excess 5.5 H ABG Hemoglobin 8.8 L ABG Carboxyhemoglobin 1.8 H POC ABG HHb (Measured) 0.6 ABG Methemoglobin 2.0 Scout Test Pos A-a O2 Difference 41.0 Respiratory Index 0.2 Hgb O2 Saturation 95.6 Vent Mode Prvc Mechanical Rate 10 FiO2 40.0 Tidal Volume 400 PEEP 5 Sodium Potassium Chloride Carbon Dioxide Anion Gap BUN Creatinine Est GFR ( Amer) Est GFR (Non-Af Amer) POC Glucose (mg/dL) 321 H 361 H Random Glucose Calcium Phosphorus Magnesium Total Bilirubin AST ALT Alkaline Phosphatase Total Protein Albumin Globulin Albumin/Globulin Ratio 11/19/17 11/19/17 11/19/17 06:01 06:01 06:30 WBC 13.9 H RBC 2.75 L Hgb 8.7 L Hct 26.5 L MCV 96.1 D MCH 31.5 H MCHC 32.8 L RDW 14.3 Plt Count 562 H MPV 7.9 Neut % (Auto) 79.2 H Lymph % (Auto) 8.7 L Foster % (Auto) 12.0 H Eos % (Auto) 0.0 Baso % (Auto) 0.1 Neut # (Auto) 11.0 H Lymph # (Auto) 1.2 Foster # (Auto) 1.7 H Eos # (Auto) 0.0 Baso # (Auto) 0.0 Neutrophils % (Manual) 86 H Band Neutrophils % 5 H Lymphocytes % (Manual) 4 L Monocytes % (Manual) 5 Nucleated RBC % 1 H Platelet Estimate Increased H Polychromasia Slight Hypochromasia (manual) Slight Tear Drop Cells Slight Puncture Site pCO2 pO2 HCO3 ABG pH ABG Total CO2 ABG O2 Saturation ABG Base Excess ABG Hemoglobin ABG Carboxyhemoglobin POC ABG HHb (Measured) ABG Methemoglobin Scout Test A-a O2 Difference Respiratory Index Hgb O2 Saturation Vent Mode Mechanical Rate FiO2 Tidal Volume PEEP Sodium 153 H Potassium 3.5 L Chloride 112 H Carbon Dioxide 26 Anion Gap 20 BUN 53 H Creatinine 1.2 Est GFR ( Amer) 52 Est GFR (Non-Af Amer) 43 POC Glucose (mg/dL) 321 H Random Glucose 335 H Calcium 9.6 Phosphorus 3.6 Magnesium 2.7 H Total Bilirubin 0.6 AST 35 ALT 26 Alkaline Phosphatase 73 Total Protein 7.9 Albumin 3.8 Globulin 4.1 H Albumin/Globulin Ratio 0.9 L 11/19/17 11:21 WBC RBC Hgb Hct MCV MCH MCHC RDW Plt Count MPV Neut % (Auto) Lymph % (Auto) Foster % (Auto) Eos % (Auto) Baso % (Auto) Neut # (Auto) Lymph # (Auto) Foster # (Auto) Eos # (Auto) Baso # (Auto) Neutrophils % (Manual) Band Neutrophils % Lymphocytes % (Manual) Monocytes % (Manual) Nucleated RBC % Platelet Estimate Polychromasia Hypochromasia (manual) Tear Drop Cells Puncture Site pCO2 pO2 HCO3 ABG pH ABG Total CO2 ABG O2 Saturation ABG Base Excess ABG Hemoglobin ABG Carboxyhemoglobin POC ABG HHb (Measured) ABG Methemoglobin Scout Test A-a O2 Difference Respiratory Index Hgb O2 Saturation Vent Mode Mechanical Rate FiO2 Tidal Volume PEEP Sodium Potassium Chloride Carbon Dioxide Anion Gap BUN Creatinine Est GFR ( Amer) Est GFR (Non-Af Amer) POC Glucose (mg/dL) 291 H Random Glucose Calcium Phosphorus Magnesium Total Bilirubin AST ALT Alkaline Phosphatase Total Protein Albumin Globulin Albumin/Globulin Ratio EKG/Cardiology Studies: Cardiology / EKG Studies 11/18/17 13:22 EKG [ELECTROCARDIOGRAM] Stat Comment: Mode Of Transportation: Reason For Exam: Pacemaker abnormality Isolation: Contact 11/18/17 13:33 EKG [ELECTROCARDIOGRAM] Stat Comment: Mode Of Transportation: Reason For Exam: Pacemaker abnormality Isolation: Contact Fingerstick Blood Sugar Results: 321 Critical Care Progress Note - Nutrition Nutrition: Nutrition Category Date Time Status NPO Diet [DIET] Diets 11/09/17 Breakfast Active Assessment/Plan - Assessment and Plan (Free Text) Assessment: This is an 87 year old female with PMHx achalasia, DM, CAD, COPD, osteoarthritis who presented from the long-term for altered mental status and shortness of breath. Patient intubated and sedated. Patient being treated for MSSA pneumonia and Klebsiella PEG site infection. Patient has failed multiple weaning trials. Diuresing patient to aid in weaning. Since she keeps failing weaning trials, tracheostomy will need to be considered. Neuro Intubated and now off of sedation Cardio Assessments: Labile blood pressure and heart rate, History of CAD Patient is off of her home medications while she is sedated Lopressor 50 mg PO BID Verapamil 2.5 mg IV Q4 prn elevated HR Hydralazine 10 mg IV Q6 prn elevated SBP Pulm Assessment: MSSA pneumonia, ventilator dependent respiratory failure, History of COPD Vented Continually fails weaning trials Solumedrol 20 mg IV daily Duoneb Q6H Plan for eventual trach GI Tube feeds at goal rate Endocrine Assessment: DM Regular ISS Q6H Accuchecks Q6H Lantus 15 units SC HS Renal Good urine output Infectious Diseases Assessments: MSSA pneumonia and Klebsiella PEG site infection Vancomycin 1 gm Q24H Aztreonam 1 gm Q8H Fluconazole IV daily Bactroban for PEG site excoriations Nystatin topical Prophylaxis Heparin SC Q8 Protonix 40 mg suspension PEG daily Per surgery, no need for intervention for PEG site leak--secure flange close to skin Discussed with Dr. Patel
--- NOTE | 2017-11-19 18:21 | CARD ---
APPROVED REPORT EKG Measurement Heart [id number] <Conclusion> Sinus tachycardia with frequent premature ventricular complexes Right bundle branch block T wave abnormality, consider lateral ischemia Abnormal ECG
--- NOTE | 2017-11-19 18:22 | CARD ---
APPROVED REPORT EKG Measurement Heart [id number] <Conclusion> Sinus tachycardia with frequent ventricular-paced complexes Marked ST abnormality, possible septal subendocardial injury Abnormal ECG
--- NOTE | 2017-11-19 18:43 | CP.PCM.PN ---
Subjective - Date & Time of Evaluation Date of Evaluation: 11/19/17 Time of Evaluation: 18:43 - Subjective Subjective: CHIEF COMPLAINTS TODAY : SPIKED A FEVER 102.3, STILL intubated, LETHARGIC OFF SEDATION +VE FOLYS- ROS. ON OBSERVATION.DOES NOT FOLLOW COMMANDS HEENT : N. Resp : No SOB wheezing, cough +VE THICK SECRETIONS. Cardio : No CP, PND orthopnea GI : No abd. 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 Musculoskel : N Ext. : Pedal pulses intact, no edema or calf pain Derm : N Psych : N. PE. Pt. is, INTUBATED, in no distress. V.S As noted in the chart Head ,ear nose,throat and eyes : Normal. Neck : Supple with normal carotids. Lungs: B/L RHONCHI Heart : S1 & S2 normal . . No murmur. S4 + Abd : Soft non tender with normal bowel sounds.+VE PEG FEEDS +VE GT EXIT SITE DRAINAGE. Neuro : Moves all ext. with no localized deficit. Ext : No edema with intact pulses. Neg. calf tenderness Derm : No rashes or decubitus ulcer. Radiology/Labs . SPUTUM +VE staph aureus MSSA GT-EXIT SITE SECRETIONS +VE kLEBSIELLA PNEUMONIAE/Farheen ALBICANS. wbc 13.9-IMPROVING CREAT 1.2/bun 53 LFTS N. VANCO TROUGH 17.1 ON 11/16 Asssessment : SEPSIS/FEVER SOURCE R/O GT EXIT SITE INFECTION R/O UTI ACUTE RESPIRATORY FAILURE /ASPIRATION PNEUMONIA. GT-EXIT SITE DRAINAGE. dIABETES MELLITUS. CAD/S/P CABG Plan: PANCULTURES ADD iv fLAGYL 250 EVERY 8 HOURLY 11/19/17 CONTINUE iv AZACTAM 1 G EVERY 8 HOURLY. 11/09/17. CONTINUE iv VANCOMYCIN 1 G EVERY 24 HOURLY. 11/10/17. ON iv dIFLUCAN 100 MG ONCE A DAY DAILY iv PIGGYBACK.-DAY 5 lOADING DOSE dIFLUCAN 200 MG GIVEN . MONITOR RENAL FUNCTIONS CLOSELY. PULMONARY TOILET WEANING PER PMD. Objective - Vital Signs/Intake and Output Vital Signs (last 24 hours): Temp Pulse Resp BP Pulse Ox 100.5 F H 112 H 15 156/71 H 99 11/19/17 16:00 11/19/17 18:00 11/19/17 18:00 11/19/17 18:00 11/19/17 18:00 Intake and Output: 11/19/17 11/19/17 06:59 18:59 Intake Total 570 1070 Output Total 540 470 Balance 30 600 - Medications Medications: Current Medications Acetaminophen (Tylenol 650 Mg Supp) 650 mg OR Q6 PRN PRN Reason: Fever >100.4 F Last Admin: 11/17/17 20:43 Dose: 650 mg Al Hydrox/Mg Hydrox/Simethicone (Maalox 30 Ml) 30 ml TOP Q6H PRN PRN Reason: Other Albuterol/Ipratropium (Duoneb 3 Mg/0.5 Mg (3 Ml) Ud) 3 ml INH RQ6 REPLACED BY [facility] Last Admin: 11/19/17 13:33 Dose: 3 ml Heparin Sodium (Porcine) (Heparin) 5,000 units SC Q8 REPLACED BY [facility] Last Admin: 11/19/17 14:00 Dose: 5,000 units Aztreonam 1 gm/ Sodium (Chloride) 100 mls @ 200 mls/hr IVPB Q8H JUDY PRN Reason: Protocol Last Admin: 11/19/17 17:15 Dose: 200 mls/hr Fluconazole (Diflucan Iv 100 Mg/50 Ml Ns) 50 mls @ 100 mls/hr IVPB DAILY JUDY PRN Reason: Protocol Last Admin: 11/19/17 09:35 Dose: 100 mls/hr Vancomycin HCl 1 gm/ Sodium (Chloride) 200 mls @ 166.7 mls/hr IVPB Q24H JUDY PRN Reason: Protocol Last Admin: 11/19/17 09:39 Dose: 166.7 mls/hr Insulin Glargine (Lantus) 15 unit SC HS REPLACED BY [facility] Last Admin: 11/18/17 22:30 Dose: 15 units Insulin Human Regular (Novolin R) 0 unit SC Q6H JUDY PRN Reason: Protocol Last Admin: 11/19/17 17:35 Dose: 10 unit Isosorbide Mononitrate (Ismo) 20 mg PO DAILY REPLACED BY [facility] Last Admin: 11/19/17 09:45 Dose: 20 mg Methylprednisolone (Solu-Medrol) 20 mg IV DAILY REPLACED BY [facility] Stop: 11/22/17 10:01 Metoprolol Tartrate (Lopressor) 50 mg PO BID REPLACED BY [facility] Last Admin: 11/19/17 17:16 Dose: 50 mg Modafinil (Provigil) 100 mg PO DAILY REPLACED BY [facility] Last Admin: 11/19/17 09:43 Dose: 100 mg Mupirocin (Bactroban Ointment) 0 gm TOP BID REPLACED BY [facility] Last Admin: 11/19/17 17:14 Dose: Not Given Nystatin (Nystop Topical Powder) 0 gm TOP TID REPLACED BY [facility] Last Admin: 11/19/17 17:17 Dose: 1 applic Pantoprazole Sodium (Protonix Susp) 40 mg PO 0600 REPLACED BY [facility] Last Admin: 11/19/17 05:48 Dose: 40 mg Verapamil HCl (Verapamil Inj) 2.5 mg IVP Q4H PRN PRN Reason: Heart rate Last Admin: 11/19/17 15:29 Dose: 2.5 mg - Labs Labs: 11/19/17 06:01 11/19/17 06:01 Assessment and Plan (1) Sepsis Status: Acute (2) Respiratory failure with hypoxia Status: Acute (3) Pneumonia Status: Acute (4) Leukocytosis Status: Acute (5) Gastrostomy tube in place Status: Acute (6) CAD (coronary artery disease) Status: Acute (7) Uncontrolled diabetes mellitus Status: Acute (8) Hx of CABG Status: Acute
[2017-11-19] MEDS: (Lantus) Insulin Glargine, Recombinant SC SCH (21:47)
--- NOTE | 2017-11-19 23:47 | CP.PCM.PN ---
Subjective - Date & Time of Evaluation Date of Evaluation: 11/19/17 Time of Evaluation: 07:20 Objective - Vital Signs/Intake and Output Vital Signs (last 24 hours): Temp Pulse Resp BP Pulse Ox 102.3 F H 107 H 16 164/76 H 100 11/19/17 21:33 11/19/17 23:00 11/19/17 23:00 11/19/17 23:00 11/19/17 23:00 Intake and Output: 11/19/17 11/20/17 18:59 06:59 Intake Total 1070 210 Output Total 470 240 Balance 600 -30 - Medications Medications: Current Medications Acetaminophen (Tylenol 650 Mg Supp) 650 mg AL Q6 PRN PRN Reason: Fever >100.4 F Last Admin: 11/19/17 21:33 Dose: 650 mg Al Hydrox/Mg Hydrox/Simethicone (Maalox 30 Ml) 30 ml TOP Q6H PRN PRN Reason: Other Albuterol/Ipratropium (Duoneb 3 Mg/0.5 Mg (3 Ml) Ud) 3 ml INH RQ6 JUDY Last Admin: 11/19/17 21:07 Dose: 3 ml Heparin Sodium (Porcine) (Heparin) 5,000 units SC Q8 JUDY Last Admin: 11/19/17 21:47 Dose: 5,000 units Aztreonam 1 gm/ Sodium (Chloride) 100 mls @ 200 mls/hr IVPB Q8H JUDY PRN Reason: Protocol Last Admin: 11/19/17 17:15 Dose: 200 mls/hr Fluconazole (Diflucan Iv 100 Mg/50 Ml Ns) 50 mls @ 100 mls/hr IVPB DAILY JUDY PRN Reason: Protocol Last Admin: 11/19/17 09:35 Dose: 100 mls/hr Vancomycin HCl 1 gm/ Sodium (Chloride) 200 mls @ 166.7 mls/hr IVPB Q24H JUDY PRN Reason: Protocol Last Admin: 11/19/17 09:39 Dose: 166.7 mls/hr Metronidazole (Flagyl) 250 mg in 50 mls @ 100 mls/hr IVPB Q8H JUDY PRN Reason: Protocol Stop: 11/25/17 00:01 Insulin Glargine (Lantus) 15 unit SC HS [facility] Last Admin: 11/19/17 21:47 Dose: 15 units Insulin Human Regular (Novolin R) 0 unit SC Q6H JDUY PRN Reason: Protocol Last Admin: 11/19/17 17:35 Dose: 10 unit Isosorbide Mononitrate (Ismo) 20 mg PO DAILY [facility] Last Admin: 11/19/17 09:45 Dose: 20 mg Methylprednisolone (Solu-Medrol) 20 mg IV DAILY [facility] Stop: 11/22/17 10:01 Metoprolol Tartrate (Lopressor) 50 mg PO BID [facility] Last Admin: 11/19/17 17:16 Dose: 50 mg Modafinil (Provigil) 100 mg PO DAILY [facility] Last Admin: 11/19/17 09:43 Dose: 100 mg Mupirocin (Bactroban Ointment) 0 gm TOP BID [facility] Last Admin: 11/19/17 17:14 Dose: Not Given Nystatin (Nystop Topical Powder) 0 gm TOP TID [facility] Last Admin: 11/19/17 17:17 Dose: 1 applic Pantoprazole Sodium (Protonix Susp) 40 mg PO 0600 [facility] Last Admin: 11/19/17 05:48 Dose: 40 mg Verapamil HCl (Verapamil Inj) 2.5 mg IVP Q4H PRN PRN Reason: Heart rate Last Admin: 11/19/17 19:53 Dose: 2.5 mg - Labs Labs: 11/19/17 06:01 11/19/17 06:01
[2017-11-20] MEDS: (Novolin R) Insulin Human Regular 100 units/ml vial SC SCH ×4 (00:25→18:16)
[2017-11-20] MEDS ORDERED: (Novolin R) Insulin Human Regular 100 units/ml vial SC SCH (00:28)
[2017-11-20] MEDS: Aztreonam 1 GM in Sodium Chloride 0.9% 100 ML IVPB SCH ×3 (00:37→16:33)
[2017-11-20] MEDS: Albuterol-Ipratrop 3 mg / 0.5 (3 ml) UD INH SCH ×4 (02:58→20:09)
[2017-11-20] MEDS: Pantoprazole 40 mg Susp UD PO SCH (05:23)
[2017-11-20 05:55] LABS: ABG ALLEN TEST POS; ARTERIAL BLOOD GAS HCO3 27.7 mmol/L (21-28); ARTERIAL BLOOD GAS HEMOGLOBIN 8.4 g/dL (11.7-17.4); ARTERIAL BLOOD GAS O2 SAT 99.6 % (95-98); ARTERIAL BLOOD GAS PCO2 40 mm/Hg (35-45); ARTERIAL BLOOD GAS PH 7.45 (7.35-7.45); ARTERIAL BLOOD GAS PO2 165 mm/Hg (80-100)
[2017-11-20 06:13] LABS: BASO # 0.1 K/uL (0.0-0.2); BASO % 0.4 % (0.0-2.0); HEMOGLOBIN 8.6 g/dL (11.0-16.0); LYMPH # 1.9 K/uL (1.0-4.3); LYMPH % 13.2 % (20.0-40.0); MEAN CELL VOLUME 96.1 fL (81.0-99.0); MEAN CORPUSCULAR HEMOGLOBIN 32.4 pg (27.0-31.0); MEAN CORPUSCULAR HGB CONC 33.8 g/dL (33.0-37.0); MEAN PLATELET VOLUME 7.9 fL (7.2-11.7); MONO # 1.4 K/uL (0.0-0.8); MONO % 9.7 % (0.0-10.0); NEUT # 11.2 K/uL (1.8-7.0); NEUT % 76.7 % (50.0-75.0); NRBC % 0.3 % (0.0-2.0); RBC 2.64 Mil/uL (3.80-5.20); RED CELL DISTRIBUTION WIDTH 14.1 % (11.5-14.5); WHITE BLOOD COUNT 14.6 K/uL (4.8-10.8)
[2017-11-20 06:39] LABS: ALBUMIN 3.4 g/dL (3.5-5.0); CALCIUM 9.7 mg/dl (8.6-10.4)
[2017-11-20] MEDS ORDERED: Potassium Chloride 20 mEq/15 ml LIQ UD PEG ONE (08:00)
--- NOTE | 2017-11-20 08:51 | CP.CCUPN ---
<Henry Lee - Last Filed: 11/20/17 10:34> CCU Subjective - Physician Review Subjective (Free Text): 11/19/17 11:43 Patient seen and examined. Patient is intubated but off of sedation. She is very lethargic and unable to follow commands. 11/20/17 08:48 Patient seen and examined. Patient is still lethargic and unable to follow commands. CCU Objective - Vital Signs / Intake & Output Vital Signs (Last 4 hours): Vital Signs Temp Pulse Resp BP Pulse Ox 11/20/17 08:00 99.1 F 94 H 4 L 158/74 H 99 11/20/17 07:00 109 H 14 126/60 99 Intake and Output (Last 8hrs): Intake & Output 11/19/17 11/20/17 11/20/17 22:59 06:59 14:59 Intake Total 415 530 70 Output Total 350 480 Balance 65 50 70 Weight 96 lb 6.4 oz Intake: Intake, IV Amount 150 Right Distal Port 150 Internal Jugular Tube Feeding 315 280 70 Other 100 100 Output: Urine 350 480 Urethral (Gregory) 350 480 Other: # Bowel Movements 1 1 - Physical Exam Head: Positive for: Atraumatic, Normocephalic Pupils: Positive for: PERRL Conjunctiva: Positive for: Normal Mouth: Positive for: Dry, Other (endotracheal tube in place) Neck: Positive for: Other (Right IJ TLC in place) Respiratory/Chest: Positive for: Decreased Breath Sounds, Other (vented) Cardiovascular: Positive for: Normal S1, S2, Tachycardic Abdomen: Positive for: Distention (but soft), Normal Bowel Sounds, Feeding Tubes (PEG tube), Other (excoriations around PEG tube) Upper Extremity: Positive for: Normal Inspection Lower Extremity: Positive for: Normal Inspection Skin: Positive for: Warm, Dry Psychiatric: Positive for: Lethargic - Medications Active Medications: Active Medications Generic Name Dose Route Start Last Admin Trade Name Freq PRN Reason Stop Dose Admin Acetaminophen 650 mg 11/10/17 10:52 11/19/17 21:33 Tylenol 650 Mg Supp OR 650 mg Q6 PRN Administration Fever >100.4 F Al Hydrox/Mg Hydrox/Simethicone 30 ml 11/16/17 10:15 Maalox 30 Ml TOP Q6H PRN Other Albuterol/Ipratropium 3 ml 04/14/18 14:00 11/20/17 07:26 Duoneb 3 Mg/0.5 Mg (3 Ml) Ud INH 3 ml RQ6 JUDY Administration Heparin Sodium (Porcine) 5,000 units 11/10/17 06:00 11/20/17 05:23 Heparin SC 5,000 units Q8 JUDY Administration Aztreonam 1 gm/ Sodium 100 mls @ 200 mls/hr 11/10/17 09:30 11/20/17 08:42 Chloride IVPB 200 mls/hr Q8H JUDY Administration Protocol Fluconazole 50 mls @ 100 mls/hr 11/12/17 13:00 11/19/17 09:35 Diflucan Iv 100 Mg/50 Ml Ns IVPB 100 mls/hr DAILY JUDY Administration Protocol Vancomycin HCl 1 gm/ Sodium 200 mls @ 166.7 mls/hr 11/18/17 10:00 11/19/17 09 :39 Chloride IVPB 166.7 mls/hr Q24H JUDY Administration Protocol Metronidazole 250 mg in 50 mls @ 100 mls/hr 11/20/17 00:00 11/20/17 00:00 Flagyl IVPB 11/25/17 00:01 100 mls/hr Q8H JUDY Administration Protocol Insulin Glargine 15 unit 11/17/17 22:00 11/19/17 21:47 Lantus SC 15 units HS JUDY Administration Insulin Human Regular 0 unit 11/20/17 06:00 11/20/17 06:17 Novolin R SC 8 unit Q6H JUDY Administration Protocol Isosorbide Mononitrate 20 mg 11/18/17 12:00 11/19/17 09:45 Ismo PO 20 mg DAILY JUDY Administration Methylprednisolone 20 mg 11/20/17 10:00 Solu-Medrol IV 11/22/17 10:01 DAILY [facility] Metoprolol Tartrate 50 mg 11/19/17 18:00 11/19/17 17:16 Lopressor PO 50 mg BID JUDY Administration Modafinil 100 mg 11/18/17 15:00 11/19/17 09:43 Provigil PO 100 mg DAILY JUDY Administration Mupirocin 0 gm 11/12/17 10:15 11/19/17 17:14 Bactroban Ointment TOP Not Given BID [facility] Nystatin 0 gm 11/12/17 14:00 11/19/17 17:17 Nystop Topical Powder TOP 1 applic TID JUDY Administration Pantoprazole Sodium 40 mg 11/16/17 10:45 11/20/17 05:23 Protonix Susp PO 40 mg 0600 JUDY Administration Verapamil HCl 2.5 mg 11/17/17 22:19 11/19/17 19:53 Verapamil Inj IVP 2.5 mg Q4H PRN Administration Heart rate - Patient Studies Lab Studies: Lab Studies 11/20/17 11/20/17 11/20/17 Range/Units 06:07 06:06 05:26 WBC 14.6 H (4.8-10.8) K/uL RBC 2.64 L (3.80-5.20) Mil/uL Hgb 8.6 L (11.0-16.0) g/dL Hct 25.4 L (34.0-47.0) % MCV 96.1 (81.0-99.0) fL MCH 32.4 H (27.0-31.0) pg MCHC 33.8 (33.0-37.0) g/dL RDW 14.1 (11.5-14.5) % Plt Count 530 H (130-400) K/uL MPV 7.9 (7.2-11.7) fL Neut % (Auto) 76.7 H (50.0-75.0) % Lymph % (Auto) 13.2 L (20.0-40.0) % [place] % (Auto) 9.7 (0.0-10.0) % Eos % (Auto) 0.0 (0.0-4.0) % Baso % (Auto) 0.4 (0.0-2.0) % Neut # (Auto) 11.2 H (1.8-7.0) K/uL Lymph # (Auto) 1.9 (1.0-4.3) K/uL [place] # (Auto) 1.4 H (0.0-0.8) K/uL Eos # (Auto) 0.0 (0.0-0.7) K/uL Baso # (Auto) 0.1 (0.0-0.2) K/uL Puncture Site R rad pCO2 40 (35-45) mm/Hg pO2 165 H (80-100) mm/Hg HCO3 27.7 (21-28) mmol/L ABG pH 7.45 (7.35-7.45) ABG Total CO2 29.0 H (22-28) mmol/L ABG O2 Saturation 99.6 H (95-98) % ABG Base Excess 3.5 H (-2.0-3.0) mmol/L ABG Hemoglobin 8.4 L (11.7-17.4) g/dL ABG Carboxyhemoglobin 1.8 H (0.5-1.5) % POC ABG HHb (Measured) 0.4 (0.0-5.0) % ABG Methemoglobin 1.3 (0.0-3.0) % Scout Test Pos A-a O2 Difference 70.0 mm/Hg Respiratory Index 0.4 Hgb O2 Saturation 96.6 (95.0-98.0) % Vent Mode Prvc Mechanical Rate 16 FiO2 40.0 % Tidal Volume 400 PEEP 5 Sodium 156 H (132-148) mmol/L Potassium 3.2 L (3.6-5.2) mmol/L Chloride 118 H (98-107) mmol/L Carbon Dioxide 25 (22-30) mmol/L Anion Gap 16 (10-20) BUN 60 H (7-17) mg/dL Creatinine 1.1 (0.7-1.2) mg/dL Est GFR ( Amer) 57 Est GFR (Non-Af Amer) 47 POC Glucose (mg/dL) (65-110) mg/dL Random Glucose 304 H (65-105) mg/dL Calcium 9.7 (8.6-10.4) mg/dl Phosphorus 2.6 (2.5-4.5) mg/dL Magnesium 2.7 H (1.6-2.3) mg/dL Total Bilirubin 0.4 (0.2-1.3) mg/dL AST 51 H D (14-36) U/L ALT 45 (9-52) U/L Alkaline Phosphatase 70 (38-126) U/L Total Protein 7.1 (6.3-8.3) g/dL Albumin 3.4 L (3.5-5.0) g/dL Globulin 3.6 (2.2-3.9) gm/dL Albumin/Globulin Ratio 1.0 (1.0-2.1) 11/20/17 11/19/17 11/19/17 Range/Units 05:18 23:40 17:33 WBC (4.8-10.8) K/uL RBC (3.80-5.20) Mil/uL Hgb (11.0-16.0) g/dL Hct (34.0-47.0) % MCV (81.0-99.0) fL MCH (27.0-31.0) pg MCHC (33.0-37.0) g/dL RDW (11.5-14.5) % Plt Count (130-400) K/uL MPV (7.2-11.7) fL Neut % (Auto) (50.0-75.0) % Lymph % (Auto) (20.0-40.0) % [place] % (Auto) (0.0-10.0) % Eos % (Auto) (0.0-4.0) % Baso % (Auto) (0.0-2.0) % Neut # (Auto) (1.8-7.0) K/uL Lymph # (Auto) (1.0-4.3) K/uL [place] # (Auto) (0.0-0.8) K/uL Eos # (Auto) (0.0-0.7) K/uL Baso # (Auto) (0.0-0.2) K/uL Puncture Site pCO2 (35-45) mm/Hg pO2 (80-100) mm/Hg HCO3 (21-28) mmol/L ABG pH (7.35-7.45) ABG Total CO2 (22-28) mmol/L ABG O2 Saturation (95-98) % ABG Base Excess (-2.0-3.0) mmol/L ABG Hemoglobin (11.7-17.4) g/dL ABG Carboxyhemoglobin (0.5-1.5) % POC ABG HHb (Measured) (0.0-5.0) % ABG Methemoglobin (0.0-3.0) % Scout Test A-a O2 Difference mm/Hg Respiratory Index Hgb O2 Saturation (95.0-98.0) % Vent Mode Mechanical Rate FiO2 % Tidal Volume PEEP Sodium (132-148) mmol/L Potassium (3.6-5.2) mmol/L Chloride (98-107) mmol/L Carbon Dioxide (22-30) mmol/L Anion Gap (10-20) BUN (7-17) mg/dL Creatinine (0.7-1.2) mg/dL Est GFR ( Amer) Est GFR (Non-Af Amer) POC Glucose (mg/dL) 342 H 293 H 355 H (65-110) mg/dL Random Glucose (65-105) mg/dL Calcium (8.6-10.4) mg/dl Phosphorus (2.5-4.5) mg/dL Magnesium (1.6-2.3) mg/dL Total Bilirubin (0.2-1.3) mg/dL AST (14-36) U/L ALT (9-52) U/L Alkaline Phosphatase (38-126) U/L Total Protein (6.3-8.3) g/dL Albumin (3.5-5.0) g/dL Globulin (2.2-3.9) gm/dL Albumin/Globulin Ratio (1.0-2.1) 11/19/17 Range/Units 11:21 WBC (4.8-10.8) K/uL RBC (3.80-5.20) Mil/uL Hgb (11.0-16.0) g/dL Hct (34.0-47.0) % MCV (81.0-99.0) fL MCH (27.0-31.0) pg MCHC (33.0-37.0) g/dL RDW (11.5-14.5) % Plt Count (130-400) K/uL MPV (7.2-11.7) fL Neut % (Auto) (50.0-75.0) % Lymph % (Auto) (20.0-40.0) % [place] % (Auto) (0.0-10.0) % Eos % (Auto) (0.0-4.0) % Baso % (Auto) (0.0-2.0) % Neut # (Auto) (1.8-7.0) K/uL Lymph # (Auto) (1.0-4.3) K/uL [place] # (Auto) (0.0-0.8) K/uL Eos # (Auto) (0.0-0.7) K/uL Baso # (Auto) (0.0-0.2) K/uL Puncture Site pCO2 (35-45) mm/Hg pO2 (80-100) mm/Hg HCO3 (21-28) mmol/L ABG pH (7.35-7.45) ABG Total CO2 (22-28) mmol/L ABG O2 Saturation (95-98) % ABG Base Excess (-2.0-3.0) mmol/L ABG Hemoglobin (11.7-17.4) g/dL ABG Carboxyhemoglobin (0.5-1.5) % POC ABG HHb (Measured) (0.0-5.0) % ABG Methemoglobin (0.0-3.0) % Scout Test A-a O2 Difference mm/Hg Respiratory Index Hgb O2 Saturation (95.0-98.0) % Vent Mode Mechanical Rate FiO2 % Tidal Volume PEEP Sodium (132-148) mmol/L Potassium (3.6-5.2) mmol/L Chloride (98-107) mmol/L Carbon Dioxide (22-30) mmol/L Anion Gap (10-20) BUN (7-17) mg/dL Creatinine (0.7-1.2) mg/dL Est GFR ( Amer) Est GFR (Non-Af Amer) POC Glucose (mg/dL) 291 H (65-110) mg/dL Random Glucose (65-105) mg/dL Calcium (8.6-10.4) mg/dl Phosphorus (2.5-4.5) mg/dL Magnesium (1.6-2.3) mg/dL Total Bilirubin (0.2-1.3) mg/dL AST (14-36) U/L ALT (9-52) U/L Alkaline Phosphatase (38-126) U/L Total Protein (6.3-8.3) g/dL Albumin (3.5-5.0) g/dL Globulin (2.2-3.9) gm/dL Albumin/Globulin Ratio (1.0-2.1) Laboratory Results - last 24 hr 11/19/17 11/19/17 11/19/17 11:21 17:33 23:40 WBC RBC Hgb Hct MCV MCH MCHC RDW Plt Count MPV Neut % (Auto) Lymph % (Auto) [place] % (Auto) Eos % (Auto) Baso % (Auto) Neut # (Auto) Lymph # (Auto) [place] # (Auto) Eos # (Auto) Baso # (Auto) Puncture Site pCO2 pO2 HCO3 ABG pH ABG Total CO2 ABG O2 Saturation ABG Base Excess ABG Hemoglobin ABG Carboxyhemoglobin POC ABG HHb (Measured) ABG Methemoglobin Scout Test A-a O2 Difference Respiratory Index Hgb O2 Saturation Vent Mode Mechanical Rate FiO2 Tidal Volume PEEP Sodium Potassium Chloride Carbon Dioxide Anion Gap BUN Creatinine Est GFR ( Amer) Est GFR (Non-Af Amer) POC Glucose (mg/dL) 291 H 355 H 293 H Random Glucose Calcium Phosphorus Magnesium Total Bilirubin AST ALT Alkaline Phosphatase Total Protein Albumin Globulin Albumin/Globulin Ratio 11/20/17 11/20/17 11/20/17 05:18 05:26 06:06 WBC 14.6 H RBC 2.64 L Hgb 8.6 L Hct 25.4 L MCV 96.1 MCH 32.4 H MCHC 33.8 RDW 14.1 Plt Count 530 H MPV 7.9 Neut % (Auto) 76.7 H Lymph % (Auto) 13.2 L [place] % (Auto) 9.7 Eos % (Auto) 0.0 Baso % (Auto) 0.4 Neut # (Auto) 11.2 H Lymph # (Auto) 1.9 [place] # (Auto) 1.4 H Eos # (Auto) 0.0 Baso # (Auto) 0.1 Puncture Site R rad pCO2 40 pO2 165 H HCO3 27.7 ABG pH 7.45 ABG Total CO2 29.0 H ABG O2 Saturation 99.6 H ABG Base Excess 3.5 H ABG Hemoglobin 8.4 L ABG Carboxyhemoglobin 1.8 H POC ABG HHb (Measured) 0.4 ABG Methemoglobin 1.3 Scout Test Pos A-a O2 Difference 70.0 Respiratory Index 0.4 Hgb O2 Saturation 96.6 Vent Mode Prvc Mechanical Rate 16 FiO2 40.0 Tidal Volume 400 PEEP 5 Sodium Potassium Chloride Carbon Dioxide Anion Gap BUN Creatinine Est GFR ( Amer) Est GFR (Non-Af Amer) POC Glucose (mg/dL) 342 H Random Glucose Calcium Phosphorus Magnesium Total Bilirubin AST ALT Alkaline Phosphatase Total Protein Albumin Globulin Albumin/Globulin Ratio 11/20/17 06:07 WBC RBC Hgb Hct MCV MCH MCHC RDW Plt Count MPV Neut % (Auto) Lymph % (Auto) [place] % (Auto) Eos % (Auto) Baso % (Auto) Neut # (Auto) Lymph # (Auto) [place] # (Auto) Eos # (Auto) Baso # (Auto) Puncture Site pCO2 pO2 HCO3 ABG pH ABG Total CO2 ABG O2 Saturation ABG Base Excess ABG Hemoglobin ABG Carboxyhemoglobin POC ABG HHb (Measured) ABG Methemoglobin Scout Test A-a O2 Difference Respiratory Index Hgb O2 Saturation Vent Mode Mechanical Rate FiO2 Tidal Volume PEEP Sodium 156 H Potassium 3.2 L Chloride 118 H Carbon Dioxide 25 Anion Gap 16 BUN 60 H Creatinine 1.1 Est GFR ( Amer) 57 Est GFR (Non-Af Amer) 47 POC Glucose (mg/dL) Random Glucose 304 H Calcium 9.7 Phosphorus 2.6 Magnesium 2.7 H Total Bilirubin 0.4 AST 51 H D ALT 45 Alkaline Phosphatase 70 Total Protein 7.1 Albumin 3.4 L Globulin 3.6 Albumin/Globulin Ratio 1.0 Fingerstick Blood Sugar Results: 342 Critical Care Progress Note - Nutrition Nutrition: Nutrition Category Date Time Status NPO Diet [DIET] Diets 11/09/17 Breakfast Active Assessment/Plan - Assessment and Plan (Free Text) Assessment: This is an 87 year old female with PMHx achalasia, DM, CAD, COPD, osteoarthritis who presented from the intermediate for altered mental status and shortness of breath. Patient intubated and sedated. Patient being treated for MSSA pneumonia and Klebsiella PEG site infection. Patient has failed multiple weaning trials. Diuresing patient to aid in weaning. Since she keeps failing weaning trials, tracheostomy planned for tomorrow. Neuro Intubated and now off of sedation Cardio Assessments: Labile blood pressure and heart rate, History of CAD Patient is off of her home medications while she is sedated Lopressor 50 mg PO BID Verapamil 2.5 mg IV Q4 prn elevated HR Pulm Assessment: MSSA pneumonia, ventilator dependent respiratory failure, History of COPD Vented Continually fails weaning trials Solumedrol 20 mg IV daily Duoneb Q6H Plan for eventual trach GI Tube feeds at goal rate Endocrine Assessment: DM Regular ISS Q6H Accuchecks Q6H Lantus 15 units SC HS Renal Good urine output Infectious Diseases Assessments: MSSA pneumonia and Klebsiella PEG site infection Vancomycin 1 gm Q24H Aztreonam 1 gm Q8H Fluconazole IV daily Bactroban for PEG site excoriations Nystatin topical Prophylaxis Heparin SC Q8 Protonix 40 mg suspension PEG daily Per surgery, no need for intervention for PEG site leak--secure flange close to skin Discussed with Dr. Watt <Christopher Watt - Last Filed: 11/20/17 14:49> CCU Objective - Vital Signs / Intake & Output Vital Signs (Last 4 hours): Vital Signs Temp Pulse Resp BP Pulse Ox 11/20/17 13:00 115 H 13 149/84 99 11/20/17 12:00 98.8 F 116 H 15 144/78 99 11/20/17 11:00 114 H 15 144/78 98 Intake and Output (Last 8hrs): Intake & Output 11/19/17 11/20/17 11/20/17 22:59 06:59 14:59 Intake Total 415 530 895 Output Total 350 480 Balance 65 50 895 Weight 96 lb 6.4 oz Intake: Intake, IV Amount 150 450 Right Distal Port 150 450 Internal Jugular Tube Feeding 315 280 245 Other 100 100 200 Output: Urine 350 480 Urethral (Gregory) 350 480 Other: # Bowel Movements 1 1 - Medications Active Medications: Active Medications Generic Name Dose Route Start Last Admin Trade Name Freq PRN Reason Stop Dose Admin Acetaminophen 650 mg 11/10/17 10:52 11/19/17 21:33 Tylenol 650 Mg Supp OR 650 mg Q6 PRN Administration Fever >100.4 F Al Hydrox/Mg Hydrox/Simethicone 30 ml 11/16/17 10:15 Maalox 30 Ml TOP Q6H PRN Other Albuterol/Ipratropium 3 ml 11/10/17 14:00 11/20/17 13:53 Duoneb 3 Mg/0.5 Mg (3 Ml) Ud INH 3 ml RQ6 JUDY Administration Heparin Sodium (Porcine) 5,000 units 11/10/17 06:00 11/20/17 13:18 Heparin SC 5,000 units Q8 JUDY Administration Aztreonam 1 gm/ Sodium 100 mls @ 200 mls/hr 11/10/17 09:30 11/20/17 08:42 Chloride IVPB 200 mls/hr Q8H JUDY Administration Protocol Fluconazole 50 mls @ 100 mls/hr 11/12/17 13:00 11/20/17 09:17 Diflucan Iv 100 Mg/50 Ml Ns IVPB 100 mls/hr DAILY JUDY Administration Protocol Vancomycin HCl 1 gm/ Sodium 200 mls @ 166.7 mls/hr 11/18/17 10:00 11/20/17 09 :15 Chloride IVPB 166.7 mls/hr Q24H JUDY Administration Protocol Metronidazole 250 mg in 50 mls @ 100 mls/hr 11/20/17 00:00 11/20/17 09:00 Flagyl IVPB 11/25/17 00:01 100 mls/hr Q8H JUDY Administration Protocol Insulin Glargine 15 unit 11/17/17 22:00 11/19/17 21:47 Lantus SC 15 units HS JUDY Administration Insulin Human Regular 0 unit 11/20/17 06:00 11/20/17 13:00 Novolin R SC 4 unit Q6H JUDY Administration Protocol Isosorbide Mononitrate 20 mg 11/18/17 12:00 11/20/17 09:21 Ismo PO 20 mg DAILY JUDY Administration Methylprednisolone 20 mg 11/20/17 10:00 11/20/17 09:20 Solu-Medrol IV 11/22/17 10:01 20 mg DAILY JUDY Administration Metoprolol Tartrate 50 mg 11/19/17 18:00 11/20/17 09:22 Lopressor PO 50 mg BID JUDY Administration Modafinil 100 mg 11/18/17 15:00 11/20/17 09:20 Provigil PO 100 mg DAILY JUDY Administration Mupirocin 0 gm 11/12/17 10:15 11/20/17 09:16 Bactroban Ointment TOP 1 applic BID JUDY Administration Nystatin 0 gm 11/12/17 14:00 11/20/17 13:19 Nystop Topical Powder TOP 1 applic TID JUDY Administration Pantoprazole Sodium 40 mg 11/16/17 10:45 11/20/17 05:23 Protonix Susp PO 40 mg 0600 JUDY Administration Verapamil HCl 2.5 mg 11/17/17 22:19 11/19/17 19:53 Verapamil Inj IVP 2.5 mg Q4H PRN Administration Heart rate - Patient Studies Lab Studies: Lab Studies 11/20/17 11/20/17 11/20/17 Range/Units 11:42 06:07 06:06 WBC 14.6 H (4.8-10.8) K/uL RBC 2.64 L (3.80-5.20) Mil/uL Hgb 8.6 L (11.0-16.0) g/dL Hct 25.4 L (34.0-47.0) % MCV 96.1 (81.0-99.0) fL MCH 32.4 H (27.0-31.0) pg MCHC 33.8 (33.0-37.0) g/dL RDW 14.1 (11.5-14.5) % Plt Count 530 H (130-400) K/uL MPV 7.9 (7.2-11.7) fL Neut % (Auto) 76.7 H (50.0-75.0) % Lymph % (Auto) 13.2 L (20.0-40.0) % [place] % (Auto) 9.7 (0.0-10.0) % Eos % (Auto) 0.0 (0.0-4.0) % Baso % (Auto) 0.4 (0.0-2.0) % Neut # (Auto) 11.2 H (1.8-7.0) K/uL Lymph # (Auto) 1.9 (1.0-4.3) K/uL [place] # (Auto) 1.4 H (0.0-0.8) K/uL Eos # (Auto) 0.0 (0.0-0.7) K/uL Baso # (Auto) 0.1 (0.0-0.2) K/uL Puncture Site pCO2 (35-45) mm/Hg pO2 (80-100) mm/Hg HCO3 (21-28) mmol/L ABG pH (7.35-7.45) ABG Total CO2 (22-28) mmol/L ABG O2 Saturation (95-98) % ABG Base Excess (-2.0-3.0) mmol/L ABG Hemoglobin (11.7-17.4) g/dL ABG Carboxyhemoglobin (0.5-1.5) % POC ABG HHb (Measured) (0.0-5.0) % ABG Methemoglobin (0.0-3.0) % Scout Test A-a O2 Difference mm/Hg Respiratory Index Hgb O2 Saturation (95.0-98.0) % Vent Mode Mechanical Rate FiO2 % Tidal Volume PEEP Sodium 156 H (132-148) mmol/L Potassium 3.2 L (3.6-5.2) mmol/L Chloride 118 H (98-107) mmol/L Carbon Dioxide 25 (22-30) mmol/L Anion Gap 16 (10-20) BUN 60 H (7-17) mg/dL Creatinine 1.1 (0.7-1.2) mg/dL Est GFR ( Amer) 57 Est GFR (Non-Af Amer) 47 POC Glucose (mg/dL) 235 H (65-110) mg/dL Random Glucose 304 H (65-105) mg/dL Calcium 9.7 (8.6-10.4) mg/dl Phosphorus 2.6 (2.5-4.5) mg/dL Magnesium 2.7 H (1.6-2.3) mg/dL Total Bilirubin 0.4 (0.2-1.3) mg/dL AST 51 H D (14-36) U/L ALT 45 (9-52) U/L Alkaline Phosphatase 70 (38-126) U/L Total Protein 7.1 (6.3-8.3) g/dL Albumin 3.4 L (3.5-5.0) g/dL Globulin 3.6 (2.2-3.9) gm/dL Albumin/Globulin Ratio 1.0 (1.0-2.1) 11/20/17 11/20/17 11/19/17 Range/Units 05:26 05:18 23:40 WBC (4.8-10.8) K/uL RBC (3.80-5.20) Mil/uL Hgb (11.0-16.0) g/dL Hct (34.0-47.0) % MCV (81.0-99.0) fL MCH (27.0-31.0) pg MCHC (33.0-37.0) g/dL RDW (11.5-14.5) % Plt Count (130-400) K/uL MPV (7.2-11.7) fL Neut % (Auto) (50.0-75.0) % Lymph % (Auto) (20.0-40.0) % [place] % (Auto) (0.0-10.0) % Eos % (Auto) (0.0-4.0) % Baso % (Auto) (0.0-2.0) % Neut # (Auto) (1.8-7.0) K/uL Lymph # (Auto) (1.0-4.3) K/uL [place] # (Auto) (0.0-0.8) K/uL Eos # (Auto) (0.0-0.7) K/uL Baso # (Auto) (0.0-0.2) K/uL Puncture Site R rad pCO2 40 (35-45) mm/Hg pO2 165 H (80-100) mm/Hg HCO3 27.7 (21-28) mmol/L ABG pH 7.45 (7.35-7.45) ABG Total CO2 29.0 H (22-28) mmol/L ABG O2 Saturation 99.6 H (95-98) % ABG Base Excess 3.5 H (-2.0-3.0) mmol/L ABG Hemoglobin 8.4 L (11.7-17.4) g/dL ABG Carboxyhemoglobin 1.8 H (0.5-1.5) % POC ABG HHb (Measured) 0.4 (0.0-5.0) % ABG Methemoglobin 1.3 (0.0-3.0) % Scout Test Pos A-a O2 Difference 70.0 mm/Hg Respiratory Index 0.4 Hgb O2 Saturation 96.6 (95.0-98.0) % Vent Mode Prvc Mechanical Rate 16 FiO2 40.0 % Tidal Volume 400 PEEP 5 Sodium (132-148) mmol/L Potassium (3.6-5.2) mmol/L Chloride (98-107) mmol/L Carbon Dioxide (22-30) mmol/L Anion Gap (10-20) BUN (7-17) mg/dL Creatinine (0.7-1.2) mg/dL Est GFR ( Amer) Est GFR (Non-Af Amer) POC Glucose (mg/dL) 342 H 293 H (65-110) mg/dL Random Glucose (65-105) mg/dL Calcium (8.6-10.4) mg/dl Phosphorus (2.5-4.5) mg/dL Magnesium (1.6-2.3) mg/dL Total Bilirubin (0.2-1.3) mg/dL AST (14-36) U/L ALT (9-52) U/L Alkaline Phosphatase (38-126) U/L Total Protein (6.3-8.3) g/dL Albumin (3.5-5.0) g/dL Globulin (2.2-3.9) gm/dL Albumin/Globulin Ratio (1.0-2.1) 11/19/17 Range/Units 17:33 WBC (4.8-10.8) K/uL RBC (3.80-5.20) Mil/uL Hgb (11.0-16.0) g/dL Hct (34.0-47.0) % MCV (81.0-99.0) fL MCH (27.0-31.0) pg MCHC (33.0-37.0) g/dL RDW (11.5-14.5) % Plt Count (130-400) K/uL MPV (7.2-11.7) fL Neut % (Auto) (50.0-75.0) % Lymph % (Auto) (20.0-40.0) % [place] % (Auto) (0.0-10.0) % Eos % (Auto) (0.0-4.0) % Baso % (Auto) (0.0-2.0) % Neut # (Auto) (1.8-7.0) K/uL Lymph # (Auto) (1.0-4.3) K/uL [place] # (Auto) (0.0-0.8) K/uL Eos # (Auto) (0.0-0.7) K/uL Baso # (Auto) (0.0-0.2) K/uL Puncture Site pCO2 (35-45) mm/Hg pO2 (80-100) mm/Hg HCO3 (21-28) mmol/L ABG pH (7.35-7.45) ABG Total CO2 (22-28) mmol/L ABG O2 Saturation (95-98) % ABG Base Excess (-2.0-3.0) mmol/L ABG Hemoglobin (11.7-17.4) g/dL ABG Carboxyhemoglobin (0.5-1.5) % POC ABG HHb (Measured) (0.0-5.0) % ABG Methemoglobin (0.0-3.0) % Scout Test A-a O2 Difference mm/Hg Respiratory Index Hgb O2 Saturation (95.0-98.0) % Vent Mode Mechanical Rate FiO2 % Tidal Volume PEEP Sodium (132-148) mmol/L Potassium (3.6-5.2) mmol/L Chloride (98-107) mmol/L Carbon Dioxide (22-30) mmol/L Anion Gap (10-20) BUN (7-17) mg/dL Creatinine (0.7-1.2) mg/dL Est GFR ( Amer) Est GFR (Non-Af Amer) POC Glucose (mg/dL) 355 H (65-110) mg/dL Random Glucose (65-105) mg/dL Calcium (8.6-10.4) mg/dl Phosphorus (2.5-4.5) mg/dL Magnesium (1.6-2.3) mg/dL Total Bilirubin (0.2-1.3) mg/dL AST (14-36) U/L ALT (9-52) U/L Alkaline Phosphatase (38-126) U/L Total Protein (6.3-8.3) g/dL Albumin (3.5-5.0) g/dL Globulin (2.2-3.9) gm/dL Albumin/Globulin Ratio (1.0-2.1) Laboratory Results - last 24 hr 11/19/17 11/19/17 11/20/17 17:33 23:40 05:18 WBC RBC Hgb Hct MCV MCH MCHC RDW Plt Count MPV Neut % (Auto) Lymph % (Auto) [place] % (Auto) Eos % (Auto) Baso % (Auto) Neut # (Auto) Lymph # (Auto) [place] # (Auto) Eos # (Auto) Baso # (Auto) Puncture Site pCO2 pO2 HCO3 ABG pH ABG Total CO2 ABG O2 Saturation ABG Base Excess ABG Hemoglobin ABG Carboxyhemoglobin POC ABG HHb (Measured) ABG Methemoglobin Scout Test A-a O2 Difference Respiratory Index Hgb O2 Saturation Vent Mode Mechanical Rate FiO2 Tidal Volume PEEP Sodium Potassium Chloride Carbon Dioxide Anion Gap BUN Creatinine Est GFR ( Amer) Est GFR (Non-Af Amer) POC Glucose (mg/dL) 355 H 293 H 342 H Random Glucose Calcium Phosphorus Magnesium Total Bilirubin AST ALT Alkaline Phosphatase Total Protein Albumin Globulin Albumin/Globulin Ratio 11/20/17 11/20/17 11/20/17 05:26 06:06 06:07 WBC 14.6 H RBC 2.64 L Hgb 8.6 L Hct 25.4 L MCV 96.1 MCH 32.4 H MCHC 33.8 RDW 14.1 Plt Count 530 H MPV 7.9 Neut % (Auto) 76.7 H Lymph % (Auto) 13.2 L [place] % (Auto) 9.7 Eos % (Auto) 0.0 Baso % (Auto) 0.4 Neut # (Auto) 11.2 H Lymph # (Auto) 1.9 [place] # (Auto) 1.4 H Eos # (Auto) 0.0 Baso # (Auto) 0.1 Puncture Site R rad pCO2 40 pO2 165 H HCO3 27.7 ABG pH 7.45 ABG Total CO2 29.0 H ABG O2 Saturation 99.6 H ABG Base Excess 3.5 H ABG Hemoglobin 8.4 L ABG Carboxyhemoglobin 1.8 H POC ABG HHb (Measured) 0.4 ABG Methemoglobin 1.3 Scout Test Pos A-a O2 Difference 70.0 Respiratory Index 0.4 Hgb O2 Saturation 96.6 Vent Mode Prvc Mechanical Rate 16 FiO2 40.0 Tidal Volume 400 PEEP 5 Sodium 156 H Potassium 3.2 L Chloride 118 H Carbon Dioxide 25 Anion Gap 16 BUN 60 H Creatinine 1.1 Est GFR ( Amer) 57 Est GFR (Non-Af Amer) 47 POC Glucose (mg/dL) Random Glucose 304 H Calcium 9.7 Phosphorus 2.6 Magnesium 2.7 H Total Bilirubin 0.4 AST 51 H D ALT 45 Alkaline Phosphatase 70 Total Protein 7.1 Albumin 3.4 L Globulin 3.6 Albumin/Globulin Ratio 1.0 11/20/17 11:42 WBC RBC Hgb Hct MCV MCH MCHC RDW Plt Count MPV Neut % (Auto) Lymph % (Auto) [place] % (Auto) Eos % (Auto) Baso % (Auto) Neut # (Auto) Lymph # (Auto) [place] # (Auto) Eos # (Auto) Baso # (Auto) Puncture Site pCO2 pO2 HCO3 ABG pH ABG Total CO2 ABG O2 Saturation ABG Base Excess ABG Hemoglobin ABG Carboxyhemoglobin POC ABG HHb (Measured) ABG Methemoglobin Scout Test A-a O2 Difference Respiratory Index Hgb O2 Saturation Vent Mode Mechanical Rate FiO2 Tidal Volume PEEP Sodium Potassium Chloride Carbon Dioxide Anion Gap BUN Creatinine Est GFR ( Amer) Est GFR (Non-Af Amer) POC Glucose (mg/dL) 235 H Random Glucose Calcium Phosphorus Magnesium Total Bilirubin AST ALT Alkaline Phosphatase Total Protein Albumin Globulin Albumin/Globulin Ratio Critical Care Progress Note - Nutrition Nutrition: Nutrition Category Date Time Status NPO Diet [DIET] Diets 11/09/17 Breakfast Active Attending/Attestation - Attestation I have personally seen and examined this patient.: Yes I have fully participated in the care of the patient.: Yes I have reviewed all pertinent clinical information: Yes Notes (Text): 11/20/17 14:48 patient seen and examined in the intensive care unit. Case discussed with house staff in the morning around Tolerating IMV mode Continue steroids and nebulizer treatment Continue antibiotics Possible trach tomorrow
[2017-11-20] MEDS: metroNIDAZOLE IV 250mg/50 ml 250 MG/50 ML BAG IVPB SCH ×3 (09:00→15:06)
[2017-11-20] MEDS: Vancomycin 1 GM in Sodium Chloride 0.9% 200 ML IVPB SCH (09:15)
[2017-11-20] MEDS: Nystatin 100,000 Units/gm Topical Pow(15 gm) TOP SCH ×3 (09:16→17:11)
[2017-11-20] MEDS: Fluconazole IV 100mg/50 ml NS 50 ML IVPB SCH (09:17)
[2017-11-20] MEDS ORDERED: MethylPREDNISolone 40 mg Vial IV SCH (10:00)
--- NOTE | 2017-11-20 10:25 | RAD ---
HISTORY: intubated COMPARISON: Portable chest 11/19/2017. FINDINGS: Endotracheal tube and right center venous line unchanged in position with permanent pacemaker again evident. LUNGS: No acute infiltrate identified bilaterally. Limited biapical pleural thickening with a right sided granulomatous changes again evident. PLEURA: Trace right pleural effusion noted. None is seen at the left. There is no pneumothorax identified bilaterally. CARDIOVASCULAR: Post CABG pattern again evident with cardiac size remaining normal. Borderline pulmonary venous congestion. OSSEOUS STRUCTURES: No significant abnormalities. VISUALIZED UPPER ABDOMEN: Surgical clips left upper quadrant abdomen again evident. OTHER FINDINGS: None IMPRESSION: Borderline pulmonary venous congestion. No acute infiltrate bilaterally. Trace right pleural effusion identified.
--- NOTE | 2017-11-20 13:15 | CP.PCM.PN ---
Subjective - Date & Time of Evaluation Date of Evaluation: 11/20/17 Time of Evaluation: 13:13 - Subjective Subjective: General surgery consult note for Dr. Tye Kelsey, PGY-1 Pt S & E at bedside. ROS unobtainable due to acuity of situation, history as per EMR. Pt intubated, not sedated. Originally admitted from shelter with sepsis 2/ 2 pneumonia as code sepsis. Pt intubated for respiratory failure, unable to meet criteria for extubation. Pt continuing to require mechanical ventilation. Pt's family desires all interventions to be done for patient. On Mechanical vent : PRVC TV 400 RR 10 PEEP 5 FiO2 40%. PMH: HTN, HL, CAD, CABG, COPD, Achalasia s/p PEG PSH: PEG tube, CABG, pace maker, CEA, cardiac stents All: Azithromycin, Cipro, Benadryl, Fish oil, PCN, Nitroglycerin, Bactrim, Zlpidem, Plavix, Flagyl, Cozaar SH: lives at shelter Objective - Vital Signs/Intake and Output Vital Signs (last 24 hours): Temp Pulse Resp BP Pulse Ox 99.1 F 114 H 15 144/78 98 11/20/17 08:00 11/20/17 11:00 11/20/17 11:00 11/20/17 11:00 11/20/17 11:00 Intake and Output: 11/20/17 11/20/17 06:59 18:59 Intake Total 705 525 Output Total 660 Balance 45 525 - Medications Medications: Current Medications Acetaminophen (Tylenol 650 Mg Supp) 650 mg FL Q6 PRN PRN Reason: Fever >100.4 F Last Admin: 11/19/17 21:33 Dose: 650 mg Al Hydrox/Mg Hydrox/Simethicone (Maalox 30 Ml) 30 ml TOP Q6H PRN PRN Reason: Other Albuterol/Ipratropium (Duoneb 3 Mg/0.5 Mg (3 Ml) Ud) 3 ml INH RQ6 [facility] Last Admin: 11/20/17 07:26 Dose: 3 ml Heparin Sodium (Porcine) (Heparin) 5,000 units SC Q8 [facility] Last Admin: 11/20/17 05:23 Dose: 5,000 units Aztreonam 1 gm/ Sodium (Chloride) 100 mls @ 200 mls/hr IVPB Q8H [facility] PRN Reason: Protocol Last Admin: 11/20/17 08:42 Dose: 200 mls/hr Fluconazole (Diflucan Iv 100 Mg/50 Ml Ns) 50 mls @ 100 mls/hr IVPB DAILY [facility] PRN Reason: Protocol Last Admin: 11/20/17 09:17 Dose: 100 mls/hr Vancomycin HCl 1 gm/ Sodium (Chloride) 200 mls @ 166.7 mls/hr IVPB Q24H [facility] PRN Reason: Protocol Last Admin: 11/20/17 09:15 Dose: 166.7 mls/hr Metronidazole (Flagyl) 250 mg in 50 mls @ 100 mls/hr IVPB Q8H [facility] PRN Reason: Protocol Stop: 11/25/17 00:01 Last Admin: 11/20/17 09:00 Dose: 100 mls/hr Insulin Glargine (Lantus) 15 unit SC [facility] Last Admin: 11/19/17 21:47 Dose: 15 units Insulin Human Regular (Novolin R) 0 unit SC Q6H [facility] PRN Reason: Protocol Last Admin: 11/20/17 06:17 Dose: 8 unit Isosorbide Mononitrate (Ismo) 20 mg PO DAILY [facility] Last Admin: 11/20/17 09:21 Dose: 20 mg Methylprednisolone (Solu-Medrol) 20 mg IV DAILY [facility] Stop: 11/22/17 10:01 Last Admin: 11/20/17 09:20 Dose: 20 mg Metoprolol Tartrate (Lopressor) 50 mg PO BID [facility] Last Admin: 11/20/17 09:22 Dose: 50 mg Modafinil (Provigil) 100 mg PO DAILY [facility] Last Admin: 11/20/17 09:20 Dose: 100 mg Mupirocin (Bactroban Ointment) 0 gm TOP BID [facility] Last Admin: 11/20/17 09:16 Dose: 1 applic Nystatin (Nystop Topical Powder) 0 gm TOP TID [facility] Last Admin: 11/20/17 09:16 Dose: 1 applic Pantoprazole Sodium (Protonix Susp) 40 mg PO 0600 [facility] Last Admin: 11/20/17 05:23 Dose: 40 mg Verapamil HCl (Verapamil Inj) 2.5 mg IVP Q4H PRN PRN Reason: Heart rate Last Admin: 11/19/17 19:53 Dose: 2.5 mg - Labs Labs: 11/20/17 06:06 11/20/17 06:07 - Constitutional Appears: Non-toxic, No Acute Distress - Head Exam Head Exam: ATRAUMATIC, NORMAL INSPECTION, NORMOCEPHALIC - Eye Exam Eye Exam: absent: EOMI - ENT Exam ENT Exam: Mucous Membranes Dry Additional comments: ET in place - Respiratory Exam Respiratory Exam: NORMAL BREATHING PATTERN (on mech vent) - Cardiovascular Exam Cardiovascular Exam: REGULAR RHYTHM, +S1, +S2 - GI/Abdominal Exam GI & Abdominal Exam: Soft (PEG tube in place). absent: Distended, Firm, Guarding, Rigid - Extremities Exam Additional comments: airboots in place - Neurological Exam Neurological Exam: absent: Alert, Awake, Oriented x3 Additional comments: intubated - Skin Skin Exam: Dry, Intact, Normal Color, Warm
--- NOTE | 2017-11-20 15:14 | CP.PCM.CON ---
<Bree Kelsey - Last Filed: 11/20/17 17:34> History of Present Illness - History of Present Illness History of Present Illness: General surgery consult note for Dr. Tye Kelsey, PGY-1 Pt S & E at bedside. ROS unobtainable due to acuity of situation, history as per EMR. Pt intubated, not sedated. Originally admitted from shelter with sepsis 2/ 2 pneumonia as code sepsis. Pt intubated for respiratory failure, unable to meet criteria for extubation. Pt continuing to require mechanical ventilation. Pt's family desires all interventions to be done for patient. On Mechanical vent : PRVC TV 400 RR 10 PEEP 5 FiO2 40%. PMH: HTN, HL, CAD, CABG, COPD, Achalasia s/p PEG PSH: PEG tube, CABG, pace maker, CEA, cardiac stents All: Azithromycin, Cipro, Benadryl, Fish oil, PCN, Nitroglycerin, Bactrim, Zlpidem, Plavix, Flagyl, Cozaar SH: lives at shelter Review of Systems - Review of Systems Systems not reviewed;Unavailable: Intubated All systems: reviewed and no additional remarkable complaints except Past Patient History - Infectious Disease Hx of Infectious Diseases: None - Past Medical History & Family History Past Medical History?: Yes - Past Social History Smoking Status: Unknown If Ever Smoked - CARDIAC Hx Cardia Arrhythmia: Yes Hx Congestive Heart Failure: Yes Hx Hypercholesterolemia: Yes Hx Hypertension: Yes Hx Pacemaker: Yes - PULMONARY Hx Bronchitis: Yes Hx Chronic Obstructive Pulmonary Disease (COPD): Yes Hx Pneumonia: Yes - NEUROLOGICAL Hx Seizures: No - HEENT Hx HEENT Problems: Yes Hx Cataracts: Yes (2000 Rt.Eye,2009Left Eye) - RENAL Hx Chronic Kidney Disease: No - ENDOCRINE/METABOLIC Hx Diabetes Mellitus Type 2: Yes - HEMATOLOGICAL/ONCOLOGICAL Hx Human Immunodeficiency Virus (HIV): No - INTEGUMENTARY Hx Dermatological Problems: No - MUSCULOSKELETAL/RHEUMATOLOGICAL Hx Falls: Yes - GASTROINTESTINAL Hx Gastrointestinal Disorders: Yes Hx Colitis: Yes Hx Gastroesophageal Reflux: Yes HX Swallowing Problems: Yes (Achalasia. 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) Hx Coronary Stent: Yes - ANESTHESIA Hx Anesthesia: Yes Hx Anesthesia Reactions: No Hx Malignant Hyperthermia: No Meds Home Medications: Home Medication List Medication Instructions Recorded Confirmed Type Acetaminophen [Tylenol 650 mg Supp] 650 mg SD Q6 PRN sup 11/23/17 Rx Albuterol/Ipratropium [Duoneb 3 3 ml INH RQ6 neb 11/23/17 Rx mg/0.5 mg (3 ml) UD] Aztreonam [Azactam] 1 gm IVPB Q8H vial 11/23/17 Rx Heparin 5,000 units SC Q8 vial 11/23/17 Rx Insulin Glargine, Recombina 15 unit SC HS unit 11/23/17 Rx [Lantus] Insulin Human Regular [Novolin R] 0 unit SC Q6H unit 11/23/17 Rx Isosorbide Mononitrate [Ismo] 20 mg PO DAILY tab 11/23/17 Rx Metoprolol Tartrate [Lopressor] 50 mg PO BID tab 11/23/17 Rx Mupirocin 2% Ointment [Bactroban 1 bu TOP BID tube 11/23/17 Rx Ointment] Pantoprazole [Protonix Susp] 40 mg PO 0600 packet 11/23/17 Rx Saccharomyces Boulardi [Florastor] 250 mg PO TID cap 11/23/17 Rx Vancomycin [Vancomycin Inj] 1 gm IVPB Q24H vial 11/23/17 Rx Allergies/Adverse Reactions: Allergies Allergy/AdvReac Type Severity Reaction Status Date / Time iodine Allergy REDNESS Verified 11/21/17 15:22 Penicillins Allergy ANGIOEDEMA Verified 11/21/17 15:22 clopidogrel [From Plavix] AdvReac HEADACHE Verified 11/21/17 15:22 losartan [From Cozaar] AdvReac DIZZINESS Verified 11/21/17 15:22 nitroglycerin AdvReac DIZZINESS Verified 11/21/17 15:22 - Medications Medications: Current Medications Acetaminophen (Tylenol 650 Mg Supp) 650 mg SD Q6 PRN PRN Reason: Fever >100.4 F Last Admin: 11/19/17 21:33 Dose: 650 mg Al Hydrox/Mg Hydrox/Simethicone (Maalox 30 Ml) 30 ml TOP Q6H PRN PRN Reason: Other Albuterol/Ipratropium (Duoneb 3 Mg/0.5 Mg (3 Ml) Ud) 3 ml INH RQ6 [facility] Last Admin: 11/20/17 13:53 Dose: 3 ml Heparin Sodium (Porcine) (Heparin) 5,000 units SC Q8 [facility] Last Admin: 11/20/17 13:18 Dose: 5,000 units Aztreonam 1 gm/ Sodium (Chloride) 100 mls @ 200 mls/hr IVPB Q8H [facility] PRN Reason: Protocol Last Admin: 11/20/17 08:42 Dose: 200 mls/hr Fluconazole (Diflucan Iv 100 Mg/50 Ml Ns) 50 mls @ 100 mls/hr IVPB DAILY [facility] PRN Reason: Protocol Last Admin: 11/20/17 09:17 Dose: 100 mls/hr Vancomycin HCl 1 gm/ Sodium (Chloride) 200 mls @ 166.7 mls/hr IVPB Q24H [facility] PRN Reason: Protocol Last Admin: 11/20/17 09:15 Dose: 166.7 mls/hr Metronidazole (Flagyl) 250 mg in 50 mls @ 100 mls/hr IVPB Q8H [facility] PRN Reason: Protocol Stop: 11/25/17 00:01 Last Admin: 11/20/17 15:06 Dose: 100 mls/hr Insulin Glargine (Lantus) 15 unit SC HS [facility] Last Admin: 11/19/17 21:47 Dose: 15 units Insulin Human Regular (Novolin R) 0 unit SC Q6H [facility] PRN Reason: Protocol Last Admin: 11/20/17 13:00 Dose: 4 unit Isosorbide Mononitrate (Ismo) 20 mg PO DAILY [facility] Last Admin: 11/20/17 09:21 Dose: 20 mg Methylprednisolone (Solu-Medrol) 20 mg IV DAILY [facility] Stop: 11/22/17 10:01 Last Admin: 11/20/17 09:20 Dose: 20 mg Metoprolol Tartrate (Lopressor) 50 mg PO BID [facility] Last Admin: 11/20/17 09:22 Dose: 50 mg Modafinil (Provigil) 100 mg PO DAILY [facility] Last Admin: 11/20/17 09:20 Dose: 100 mg Mupirocin (Bactroban Ointment) 0 gm TOP BID [facility] Last Admin: 11/20/17 09:16 Dose: 1 applic Nystatin (Nystop Topical Powder) 0 gm TOP TID [facility] Last Admin: 11/20/17 13:19 Dose: 1 applic Pantoprazole Sodium (Protonix Susp) 40 mg PO 0600 [facility] Last Admin: 11/20/17 05:23 Dose: 40 mg Verapamil HCl (Verapamil Inj) 2.5 mg IVP Q4H PRN PRN Reason: Heart rate Last Admin: 11/20/17 15:03 Dose: 2.5 mg Physical Exam - Constitutional Appears: Non-toxic, No Acute Distress, Chronically Ill - Head Exam Head Exam: ATRAUMATIC, NORMAL INSPECTION, NORMOCEPHALIC - Eye Exam Eye Exam: EOMI - ENT Exam ENT Exam: Mucous Membranes Dry. absent: Normal Exam (poor dentition) - Neck Exam Additional comments: RIJ TLC in place - Respiratory Exam Respiratory Exam: NORMAL BREATHING PATTERN (on mech vent) - Cardiovascular Exam Cardiovascular Exam: Tachycardia, +S1, +S2 - GI/Abdominal Exam GI & Abdominal Exam: Soft. absent: Distended Additional comments: PEG tube in place, no drainage, dressing clean/dry/intact - Extremities Exam Extremities exam: Positive for: normal inspection (airboots in place, SCDs in place) - Neurological Exam Additional comments: Intubated, does not follow simple commands, withdraws to toxic stimuli - Psychiatric Exam Additional comments: unable to assess- intubated - Skin Skin Exam: Dry, Intact, Normal Color, Warm Results - Vital Signs Recent Vital Signs: Last Vital Signs Temp 98.8 F 11/20/17 12:00 Pulse 115 H 11/20/17 13:00 Resp 13 11/20/17 13:00 BP 149/84 11/20/17 13:00 Pulse Ox 99 11/20/17 13:00 - Labs Result Diagrams: 11/20/17 06:06 11/20/17 06:07 Labs: Laboratory Results - last 24 hr 11/19/17 11/19/17 11/20/17 17:33 23:40 05:18 WBC RBC Hgb Hct MCV MCH MCHC RDW Plt Count MPV Neut % (Auto) Lymph % (Auto) Mckean % (Auto) Eos % (Auto) Baso % (Auto) Neut # (Auto) Lymph # (Auto) Mckean # (Auto) Eos # (Auto) Baso # (Auto) Puncture Site pCO2 pO2 HCO3 ABG pH ABG Total CO2 ABG O2 Saturation ABG Base Excess ABG Hemoglobin ABG Carboxyhemoglobin POC ABG HHb (Measured) ABG Methemoglobin Scout Test A-a O2 Difference Respiratory Index Hgb O2 Saturation Vent Mode Mechanical Rate FiO2 Tidal Volume PEEP Sodium Potassium Chloride Carbon Dioxide Anion Gap BUN Creatinine Est GFR ( Amer) Est GFR (Non-Af Amer) POC Glucose (mg/dL) 355 H 293 H 342 H Random Glucose Calcium Phosphorus Magnesium Total Bilirubin AST ALT Alkaline Phosphatase Total Protein Albumin Globulin Albumin/Globulin Ratio 11/20/17 11/20/17 11/20/17 05:26 06:06 06:07 WBC 14.6 H RBC 2.64 L Hgb 8.6 L Hct 25.4 L MCV 96.1 MCH 32.4 H MCHC 33.8 RDW 14.1 Plt Count 530 H MPV 7.9 Neut % (Auto) 76.7 H Lymph % (Auto) 13.2 L Mckean % (Auto) 9.7 Eos % (Auto) 0.0 Baso % (Auto) 0.4 Neut # (Auto) 11.2 H Lymph # (Auto) 1.9 Mckean # (Auto) 1.4 H Eos # (Auto) 0.0 Baso # (Auto) 0.1 Puncture Site R rad pCO2 40 pO2 165 H HCO3 27.7 ABG pH 7.45 ABG Total CO2 29.0 H ABG O2 Saturation 99.6 H ABG Base Excess 3.5 H ABG Hemoglobin 8.4 L ABG Carboxyhemoglobin 1.8 H POC ABG HHb (Measured) 0.4 ABG Methemoglobin 1.3 Scout Test Pos A-a O2 Difference 70.0 Respiratory Index 0.4 Hgb O2 Saturation 96.6 Vent Mode Prvc Mechanical Rate 16 FiO2 40.0 Tidal Volume 400 PEEP 5 Sodium 156 H Potassium 3.2 L Chloride 118 H Carbon Dioxide 25 Anion Gap 16 BUN 60 H Creatinine 1.1 Est GFR ( Amer) 57 Est GFR (Non-Af Amer) 47 POC Glucose (mg/dL) Random Glucose 304 H Calcium 9.7 Phosphorus 2.6 Magnesium 2.7 H Total Bilirubin 0.4 AST 51 H D ALT 45 Alkaline Phosphatase 70 Total Protein 7.1 Albumin 3.4 L Globulin 3.6 Albumin/Globulin Ratio 1.0 11/20/17 11:42 WBC RBC Hgb Hct MCV MCH MCHC RDW Plt Count MPV Neut % (Auto) Lymph % (Auto) Mckean % (Auto) Eos % (Auto) Baso % (Auto) Neut # (Auto) Lymph # (Auto) Mckean # (Auto) Eos # (Auto) Baso # (Auto) Puncture Site pCO2 pO2 HCO3 ABG pH ABG Total CO2 ABG O2 Saturation ABG Base Excess ABG Hemoglobin ABG Carboxyhemoglobin POC ABG HHb (Measured) ABG Methemoglobin Scout Test A-a O2 Difference Respiratory Index Hgb O2 Saturation Vent Mode Mechanical Rate FiO2 Tidal Volume PEEP Sodium Potassium Chloride Carbon Dioxide Anion Gap BUN Creatinine Est GFR ( Amer) Est GFR (Non-Af Amer) POC Glucose (mg/dL) 235 H Random Glucose Calcium Phosphorus Magnesium Total Bilirubin AST ALT Alkaline Phosphatase Total Protein Albumin Globulin Albumin/Globulin Ratio Assessment & Plan - Assessment and Plan (Free Text) Assessment: 87F w/PMH sig for HTN, HL, CAD, CABG, COPD, Achalasia s/p PEG consulted for respiratory failure requiring detention mechanical ventilation Plan: Plan for OR for percutaneous trach tomorrow Hold Anticoagulation at MN Hold Tube feeds at MN Consent in chart Further mgmt as per primary team DW attending Laure, PGY-1 - Date & Time Date: 11/20/17 Time: 13:30 <Guilherme Kidd - Last Filed: 11/24/17 19:22> Results - Vital Signs Recent Vital Signs: Last Vital Signs Temp 98.7 F 11/23/17 16:00 Pulse 99 H 11/23/17 19:02 Resp 14 11/23/17 19:02 BP 151/63 H 11/23/17 19:02 Pulse Ox 99 11/23/17 19:02 - Labs Result Diagrams: 11/23/17 05:48 11/23/17 05:49 Attending/Attestation - Attestation I have personally seen and examined this patient.: Yes I have fully participated in the care of the patient.: Yes I have reviewed all pertinent clinical information: Yes Notes (Text): Pt was seen and examined at bedside Agree with above note and assessment Pt with VDRF and Pneumonia Unable to wean from ventilator Vent setting reviewed OR for Perc trach tomorrow Consent IV antibiotics c/w current mx Plan d.w primary team in detail
[2017-11-20] MEDS ORDERED: Potassium Phosphate 15 MMOLE in Sodium Chloride 0.9% 250 ML IVPB ONE (15:50)
[2017-11-20] MEDS ORDERED: Potassium Phosphate 15 MMOLE in Dextrose 5% In Water 250 ML IVPB ONE (16:00)
--- NOTE | 2017-11-20 20:45 | CP.PCM.PN ---
Subjective - Date & Time of Evaluation Date of Evaluation: 11/20/17 Time of Evaluation: 16:10 - Subjective Subjective: Patient seen and examined. Patient is still lethargic and unable to follow commands. Physical Examination - Physical Exam Head: Positive for: Atraumatic, Normocephalic Pupils: Positive for: PERRL Conjunctiva: Positive for: Normal Mouth: Positive for: Dry, Other (endotracheal tube in place) Neck: Positive for: Other (Right IJ TLC in place) Respiratory/Chest: Positive for: Decreased Breath Sounds, Other (vented) Cardiovascular: Positive for: Normal S1, S2, Tachycardic Abdomen: Positive for: Distention (but soft), Normal Bowel Sounds, Feeding Tubes (PEG tube), Other (excoriations around PEG tube) Upper Extremity: Positive for: Normal Inspection Lower Extremity: Positive for: Normal Inspection Skin: Positive for: Warm, Dry Psychiatric: Positive for: Lethargic Objective - Vital Signs/Intake and Output Vital Signs (last 24 hours): Temp Pulse Resp BP Pulse Ox 98.7 F 113 H 18 173/87 H 99 11/20/17 16:00 11/20/17 19:00 11/20/17 19:00 11/20/17 19:00 11/20/17 19:00 Intake and Output: 11/20/17 11/21/17 18:59 06:59 Intake Total 1520 70 Output Total 530 90 Balance 990 -20 - Medications Medications: Current Medications Acetaminophen (Tylenol 650 Mg Supp) 650 mg [place] Q6 PRN PRN Reason: Fever >100.4 F Last Admin: 11/19/17 21:33 Dose: 650 mg Al Hydrox/Mg Hydrox/Simethicone (Maalox 30 Ml) 30 ml TOP Q6H PRN PRN Reason: Other Albuterol/Ipratropium (Duoneb 3 Mg/0.5 Mg (3 Ml) Ud) 3 ml INH RQ6 [facility] Last Admin: 11/20/17 20:09 Dose: 3 ml Heparin Sodium (Porcine) (Heparin) 5,000 units SC Q8 [facility] Last Admin: 11/20/17 13:18 Dose: 5,000 units Aztreonam 1 gm/ Sodium (Chloride) 100 mls @ 200 mls/hr IVPB Q8H [facility] PRN Reason: Protocol Last Admin: 11/20/17 16:33 Dose: 200 mls/hr Fluconazole (Diflucan Iv 100 Mg/50 Ml Ns) 50 mls @ 100 mls/hr IVPB DAILY [facility] PRN Reason: Protocol Last Admin: 11/20/17 09:17 Dose: 100 mls/hr Vancomycin HCl 1 gm/ Sodium (Chloride) 200 mls @ 166.7 mls/hr IVPB Q24H [facility] PRN Reason: Protocol Last Admin: 11/20/17 09:15 Dose: 166.7 mls/hr Metronidazole (Flagyl) 250 mg in 50 mls @ 100 mls/hr IVPB Q8H [facility] PRN Reason: Protocol Stop: 11/25/17 00:01 Last Admin: 11/20/17 15:06 Dose: 100 mls/hr Potassium Phosphate 15 mmole/ (Dextrose) 255 mls @ 42.5 mls/hr IVPB ONCE ONE Stop: 11/20/17 21:59 Last Admin: 11/20/17 16:39 Dose: 42.5 mls/hr Insulin Glargine (Lantus) 15 unit SC [facility] Last Admin: 11/19/17 21:47 Dose: 15 units Insulin Human Regular (Novolin R) 0 unit SC Q6H [facility] PRN Reason: Protocol Last Admin: 11/20/17 18:16 Dose: 8 unit Isosorbide Mononitrate (Ismo) 20 mg PO DAILY [facility] Last Admin: 11/20/17 09:21 Dose: 20 mg Methylprednisolone (Solu-Medrol) 20 mg IV DAILY [facility] Stop: 11/22/17 10:01 Last Admin: 11/20/17 09:20 Dose: 20 mg Metoprolol Tartrate (Lopressor) 50 mg PO BID [facility] Last Admin: 11/20/17 17:13 Dose: 50 mg Modafinil (Provigil) 100 mg PO DAILY [facility] Last Admin: 11/20/17 09:20 Dose: 100 mg Mupirocin (Bactroban Ointment) 0 gm TOP BID [facility] Last Admin: 11/20/17 17:11 Dose: 1 applic Nystatin (Nystop Topical Powder) 0 gm TOP TID [facility] Last Admin: 11/20/17 17:11 Dose: 1 applic Pantoprazole Sodium (Protonix Susp) 40 mg PO 0600 [facility] Last Admin: 11/20/17 05:23 Dose: 40 mg Verapamil HCl (Verapamil Inj) 2.5 mg IVP Q4H PRN PRN Reason: Heart rate Last Admin: 11/20/17 15:03 Dose: 2.5 mg - Labs Labs: 11/20/17 06:06 11/20/17 06:07 Assessment and Plan - Assessment and Plan (Free Text) Assessment: This is an 87 year old female with PMHx achalasia, DM, CAD, COPD, osteoarthritis who presented from the custodial for altered mental status and shortness of breath. Patient intubated and sedated. Patient being treated for MSSA pneumonia and Klebsiella PEG site infection. Patient has failed multiple weaning trials. Diuresing patient to aid in weaning. Since she keeps failing weaning trials, tracheostomy planned for tomorrow. Neuro Intubated and now off of sedation Cardio Assessments: Labile blood pressure and heart rate, History of CAD Patient is off of her home medications while she is sedated Lopressor 50 mg PO BID Verapamil 2.5 mg IV Q4 prn elevated HR Pulm Assessment: MSSA pneumonia, ventilator dependent respiratory failure, History of COPD Vented Continually fails weaning trials Solumedrol 20 mg IV daily Duoneb Q6H Plan for eventual trach GI Tube feeds at goal rate Endocrine Assessment: DM Regular ISS Q6H Accuchecks Q6H Lantus 15 units SC HS Renal Good urine output Infectious Diseases Assessments: MSSA pneumonia and Klebsiella PEG site infection Vancomycin 1 gm Q24H Aztreonam 1 gm Q8H Fluconazole IV daily Bactroban for PEG site excoriations Nystatin topical Prophylaxis Heparin SC Q8 Protonix 40 mg suspension PEG daily Per surgery, no need for intervention for PEG site leak--secure flange close to skin
--- NOTE | 2017-11-20 21:42 | CP.PCM.PN ---
Subjective - Date & Time of Evaluation Date of Evaluation: 11/20/17 Time of Evaluation: 21:41 - Subjective Subjective: pt is doing ok unable to extubate needed trach planned spoke to pt daughter vitals stable labs showing high Na free water on vanco will f/u Objective - Vital Signs/Intake and Output Vital Signs (last 24 hours): Temp Pulse Resp BP Pulse Ox 98.7 F 113 H 18 173/87 H 99 11/20/17 16:00 11/20/17 19:00 11/20/17 19:00 11/20/17 19:00 11/20/17 19:00 Intake and Output: 11/20/17 11/21/17 18:59 06:59 Intake Total 1520 70 Output Total 530 90 Balance 990 -20 - Medications Medications: Current Medications Acetaminophen (Tylenol 650 Mg Supp) 650 mg DE Q6 PRN PRN Reason: Fever >100.4 F Last Admin: 11/19/17 21:33 Dose: 650 mg Al Hydrox/Mg Hydrox/Simethicone (Maalox 30 Ml) 30 ml TOP Q6H PRN PRN Reason: Other Albuterol/Ipratropium (Duoneb 3 Mg/0.5 Mg (3 Ml) Ud) 3 ml INH RQ6 [facility] Last Admin: 11/20/17 20:09 Dose: 3 ml Heparin Sodium (Porcine) (Heparin) 5,000 units SC Q8 [facility] Last Admin: 11/20/17 13:18 Dose: 5,000 units Aztreonam 1 gm/ Sodium (Chloride) 100 mls @ 200 mls/hr IVPB Q8H [facility] PRN Reason: Protocol Last Admin: 11/20/17 16:33 Dose: 200 mls/hr Fluconazole (Diflucan Iv 100 Mg/50 Ml Ns) 50 mls @ 100 mls/hr IVPB DAILY [facility] PRN Reason: Protocol Last Admin: 11/20/17 09:17 Dose: 100 mls/hr Vancomycin HCl 1 gm/ Sodium (Chloride) 200 mls @ 166.7 mls/hr IVPB Q24H [facility] PRN Reason: Protocol Last Admin: 11/20/17 09:15 Dose: 166.7 mls/hr Metronidazole (Flagyl) 250 mg in 50 mls @ 100 mls/hr IVPB Q8H [facility] PRN Reason: Protocol Stop: 11/25/17 00:01 Last Admin: 11/20/17 15:06 Dose: 100 mls/hr Potassium Phosphate 15 mmole/ (Dextrose) 255 mls @ 42.5 mls/hr IVPB ONCE ONE Stop: 11/20/17 21:59 Last Admin: 11/20/17 16:39 Dose: 42.5 mls/hr Insulin Glargine (Lantus) 15 unit SC HS [facility] Last Admin: 11/19/17 21:47 Dose: 15 units Insulin Human Regular (Novolin R) 0 unit SC Q6H [facility] PRN Reason: Protocol Last Admin: 11/20/17 18:16 Dose: 8 unit Isosorbide Mononitrate (Ismo) 20 mg PO DAILY [facility] Last Admin: 11/20/17 09:21 Dose: 20 mg Metoprolol Tartrate (Lopressor) 50 mg PO BID [facility] Last Admin: 11/20/17 17:13 Dose: 50 mg Mupirocin (Bactroban Ointment) 0 gm TOP BID [facility] Last Admin: 11/20/17 17:11 Dose: 1 applic Nystatin (Nystop Topical Powder) 0 gm TOP TID [facility] Last Admin: 11/20/17 17:11 Dose: 1 applic Pantoprazole Sodium (Protonix Susp) 40 mg PO 0600 [facility] Last Admin: 11/20/17 05:23 Dose: 40 mg - Labs Labs: 11/20/17 06:06 11/20/17 06:07
[2017-11-20] MEDS: (Lantus) Insulin Glargine, Recombinant SC SCH ×2 (21:53→22:00)
[2017-11-20] MEDS ORDERED: (Lantus) Insulin Glargine, Recombinant SC ONE (22:38)
--- NOTE | 2017-11-20 22:58 | CARD ---
APPROVED REPORT EKG Measurement Heart [id number] <Conclusion> Sinus tachycardia Inferior-posterior infarct, age undetermined ST & T wave abnormality, consider lateral ischemia Abnormal ECG
[2017-11-21] MEDS: (Novolin R) Insulin Human Regular 100 units/ml vial SC SCH ×4 (00:37→17:46)
[2017-11-21] MEDS: Aztreonam 1 GM in Sodium Chloride 0.9% 100 ML IVPB SCH ×3 (00:38→17:44)
[2017-11-21] MEDS: Albuterol-Ipratrop 3 mg / 0.5 (3 ml) UD INH SCH ×4 (01:31→19:42)
[2017-11-21 05:13] LABS: ABG ALLEN TEST POS; ARTERIAL BLOOD GAS HCO3 27.5 mmol/L (21-28); ARTERIAL BLOOD GAS HEMOGLOBIN 9.1 g/dL (11.7-17.4); ARTERIAL BLOOD GAS O2 SAT 99.9 % (95-98); ARTERIAL BLOOD GAS PCO2 35 mm/Hg (35-45); ARTERIAL BLOOD GAS PH 7.49 (7.35-7.45); ARTERIAL BLOOD GAS PO2 188 mm/Hg (80-100); ARTERIAL BLOOD GAS TCO2 27.8 mmol/L (22-28)
[2017-11-21] MEDS: Pantoprazole 40 mg Susp UD PO SCH (06:00)
[2017-11-21 06:39] LABS: BASO # 0.1 K/uL (0.0-0.2); BASO % 0.4 % (0.0-2.0); EOS % 0.2 % (0.0-4.0); HEMOGLOBIN 9.3 g/dL (11.0-16.0); LYMPH # 2.5 K/uL (1.0-4.3); LYMPH % 16.4 % (20.0-40.0); MEAN CELL VOLUME 95.9 fL (81.0-99.0); MEAN CORPUSCULAR HEMOGLOBIN 31.4 pg (27.0-31.0); MEAN CORPUSCULAR HGB CONC 32.8 g/dL (33.0-37.0); MEAN PLATELET VOLUME 7.9 fL (7.2-11.7); MONO # 1.4 K/uL (0.0-0.8); MONO % 9.2 % (0.0-10.0); NEUT # 11.4 K/uL (1.8-7.0); NEUT % 73.8 % (50.0-75.0); NRBC % 0.4 % (0.0-2.0); RBC 2.95 Mil/uL (3.80-5.20); RED CELL DISTRIBUTION WIDTH 14.7 % (11.5-14.5); WHITE BLOOD COUNT 15.5 K/uL (4.8-10.8)
[2017-11-21 06:51] LABS: ALBUMIN 3.6 g/dL (3.5-5.0); ALT/SGPT 32 U/L (9-52); AST/SGOT 24 U/L (14-36); BLOOD UREA NITROGEN 51 mg/dL (7-17); CALCIUM 9.7 mg/dl (8.6-10.4); GFR AFRICAN-AMERICAN > 60; GFR NON-AFRICAN AMERICAN 59
[2017-11-21 06:54] LABS: INR 1.1; PROTHROMBIN TIME 12.8 SECONDS (9.7-12.2)
--- NOTE | 2017-11-21 08:52 | CP.CCUPN ---
<Henry Lee - Last Filed: 11/21/17 15:24> CCU Subjective - Physician Review Subjective (Free Text): 11/19/17 11:43 Patient seen and examined. Patient is intubated but off of sedation. She is very lethargic and unable to follow commands. 11/20/17 08:48 Patient seen and examined. Patient is still lethargic and unable to follow commands. 11/21/17 08:50 Patient seen and examined. Patient remains lethargic. She is for tracheostomy placement later today. CCU Objective - Vital Signs / Intake & Output Vital Signs (Last 4 hours): Vital Signs Pulse Resp BP Pulse Ox 11/21/17 07:00 102 H 11 L 122/66 98 11/21/17 06:00 99 H 12 165/60 H 97 11/21/17 05:00 113 H 16 143/71 99 Intake and Output (Last 8hrs): Intake & Output 11/20/17 11/21/17 11/21/17 22:59 06:59 14:59 Intake Total 930 220 0 Output Total 555 735 100 Balance 375 -515 -100 Intake: Intake, IV Amount 250 150 Right Distal Port 250 150 Internal Jugular Tube Feeding 280 70 0 Other 400 Output: Urine 555 735 100 Urethral (Gregory) 555 735 100 - Physical Exam Head: Positive for: Atraumatic, Normocephalic Pupils: Positive for: PERRL Conjunctiva: Positive for: Normal Mouth: Positive for: Dry, Other (endotracheal tube in place) Neck: Positive for: Other (Right IJ TLC in place) Respiratory/Chest: Positive for: Decreased Breath Sounds, Other (vented) Cardiovascular: Positive for: Normal S1, S2, Tachycardic Abdomen: Positive for: Distention (but soft), Normal Bowel Sounds, Feeding Tubes (PEG tube), Other (excoriations around PEG tube) Upper Extremity: Positive for: Normal Inspection Lower Extremity: Positive for: Normal Inspection Skin: Positive for: Warm, Dry Psychiatric: Positive for: Lethargic - Medications Active Medications: Active Medications Generic Name Dose Route Start Last Admin Trade Name Freq PRN Reason Stop Dose Admin Acetaminophen 650 mg 11/10/17 10:52 11/19/17 21:33 Tylenol 650 Mg Supp NC 650 mg Q6 PRN Administration Fever >100.4 F Al Hydrox/Mg Hydrox/Simethicone 30 ml 11/16/17 10:15 Maalox 30 Ml TOP Q6H PRN Other Albuterol/Ipratropium 3 ml 11/10/17 14:00 11/21/17 07:27 Duoneb 3 Mg/0.5 Mg (3 Ml) Ud INH 3 ml RQ6 JUDY Administration Heparin Sodium (Porcine) 5,000 units 11/10/17 06:00 11/20/17 21:52 Heparin SC 5,000 units Q8 JUDY Administration Aztreonam 1 gm/ Sodium 100 mls @ 200 mls/hr 11/10/17 09:30 11/21/17 00:38 Chloride IVPB 200 mls/hr Q8H JUDY Administration Protocol Fluconazole 50 mls @ 100 mls/hr 11/12/17 13:00 11/20/17 09:17 Diflucan Iv 100 Mg/50 Ml Ns IVPB 100 mls/hr DAILY JUDY Administration Protocol Vancomycin HCl 1 gm/ Sodium 200 mls @ 166.7 mls/hr 11/18/17 10:00 11/20/17 09 :15 Chloride IVPB 166.7 mls/hr Q24H JUDY Administration Protocol Metronidazole 250 mg in 50 mls @ 100 mls/hr 11/20/17 00:00 11/21/17 00:00 Flagyl IVPB 11/25/17 00:01 100 mls/hr Q8H JUDY Administration Protocol Insulin Glargine 15 unit 11/21/17 22:00 Lantus SC HS [facility] Insulin Human Regular 0 unit 11/20/17 06:00 11/21/17 00:37 Novolin R SC 1 unit Q6H JUDY Administration Protocol Isosorbide Mononitrate 20 mg 11/18/17 12:00 11/20/17 09:21 Ismo PO 20 mg DAILY JUDY Administration Metoprolol Tartrate 50 mg 11/19/17 18:00 11/20/17 17:13 Lopressor PO 50 mg BID JUDY Administration Mupirocin 0 gm 11/12/17 10:15 11/20/17 17:11 Bactroban Ointment TOP 1 applic BID JUDY Administration Nystatin 0 gm 11/12/17 14:00 11/20/17 17:11 Nystop Topical Powder TOP 1 applic TID JUDY Administration Pantoprazole Sodium 40 mg 11/16/17 10:45 11/21/17 06:00 Protonix Susp PO Not Given 0600 [facility] Saccharomyces Boulardii 250 mg 11/21/17 10:00 Florastor PO TID [facility] - Patient Studies Lab Studies: Microbiology Studies 11/19/17 23:07 Gram Stain - Preliminary Abdomen 11/19/17 22:00 Blood Culture - Preliminary Blood-Venous NO GROWTH AFTER 24 HOURS 11/19/17 21:30 Blood Culture - Preliminary Blood-Venous NO GROWTH AFTER 24 HOURS Lab Studies 11/21/17 11/21/17 11/21/17 Range/Units 06:28 06:28 06:28 WBC 15.5 H (4.8-10.8) K/uL RBC 2.95 L (3.80-5.20) Mil/uL Hgb 9.3 L (11.0-16.0) g/dL Hct 28.3 L (34.0-47.0) % MCV 95.9 (81.0-99.0) fL MCH 31.4 H (27.0-31.0) pg MCHC 32.8 L (33.0-37.0) g/dL RDW 14.7 H (11.5-14.5) % Plt Count 594 H (130-400) K/uL MPV 7.9 (7.2-11.7) fL Neut % (Auto) 73.8 (50.0-75.0) % Lymph % (Auto) 16.4 L (20.0-40.0) % [place] % (Auto) 9.2 (0.0-10.0) % Eos % (Auto) 0.2 (0.0-4.0) % Baso % (Auto) 0.4 (0.0-2.0) % Neut # (Auto) 11.4 H (1.8-7.0) K/uL Lymph # (Auto) 2.5 (1.0-4.3) K/uL [place] # (Auto) 1.4 H (0.0-0.8) K/uL Eos # (Auto) 0.0 (0.0-0.7) K/uL Baso # (Auto) 0.1 (0.0-0.2) K/uL PT 12.8 H (9.7-12.2) SECONDS INR 1.1 APTT 25 (21-34) SECONDS Puncture Site pCO2 (35-45) mm/Hg pO2 (80-100) mm/Hg HCO3 (21-28) mmol/L ABG pH (7.35-7.45) ABG Total CO2 (22-28) mmol/L ABG O2 Saturation (95-98) % ABG Base Excess (-2.0-3.0) mmol/L ABG Hemoglobin (11.7-17.4) g/dL ABG Carboxyhemoglobin (0.5-1.5) % POC ABG HHb (Measured) (0.0-5.0) % ABG Methemoglobin (0.0-3.0) % Scout Test A-a O2 Difference mm/Hg Respiratory Index Hgb O2 Saturation (95.0-98.0) % Vent Mode Mechanical Rate FiO2 % Tidal Volume PEEP Pressure Support Sodium 158 H (132-148) mmol/L Potassium 4.6 (3.6-5.2) mmol/L Chloride 119 H (98-107) mmol/L Carbon Dioxide 24 (22-30) mmol/L Anion Gap 20 (10-20) BUN 51 H (7-17) mg/dL Creatinine 0.9 (0.7-1.2) mg/dL Est GFR ( Amer) > 60 Est GFR (Non-Af Amer) 59 POC Glucose (mg/dL) (65-110) mg/dL Random Glucose 238 H (65-105) mg/dL Calcium 9.7 (8.6-10.4) mg/dl Phosphorus 3.2 (2.5-4.5) mg/dL Magnesium 2.5 H (1.6-2.3) mg/dL Total Bilirubin 0.6 (0.2-1.3) mg/dL AST 24 (14-36) U/L ALT 32 (9-52) U/L Alkaline Phosphatase 70 (38-126) U/L Total Protein 7.4 (6.3-8.3) g/dL Albumin 3.6 (3.5-5.0) g/dL Globulin 3.8 (2.2-3.9) gm/dL Albumin/Globulin Ratio 1.0 (1.0-2.1) 04/25/18 04/25/18 04/24/18 Range/Units 05:43 05:00 23:37 WBC (4.8-10.8) K/uL RBC (3.80-5.20) Mil/uL Hgb (11.0-16.0) g/dL Hct (34.0-47.0) % MCV (81.0-99.0) fL MCH (27.0-31.0) pg MCHC (33.0-37.0) g/dL RDW (11.5-14.5) % Plt Count (130-400) K/uL MPV (7.2-11.7) fL Neut % (Auto) (50.0-75.0) % Lymph % (Auto) (20.0-40.0) % [place] % (Auto) (0.0-10.0) % Eos % (Auto) (0.0-4.0) % Baso % (Auto) (0.0-2.0) % Neut # (Auto) (1.8-7.0) K/uL Lymph # (Auto) (1.0-4.3) K/uL [place] # (Auto) (0.0-0.8) K/uL Eos # (Auto) (0.0-0.7) K/uL Baso # (Auto) (0.0-0.2) K/uL PT (9.7-12.2) SECONDS INR APTT (21-34) SECONDS Puncture Site Rr pCO2 35 (35-45) mm/Hg pO2 188 H (80-100) mm/Hg HCO3 27.5 (21-28) mmol/L ABG pH 7.49 H (7.35-7.45) ABG Total CO2 27.8 (22-28) mmol/L ABG O2 Saturation 99.9 H (95-98) % ABG Base Excess 3.3 H (-2.0-3.0) mmol/L ABG Hemoglobin 9.1 L (11.7-17.4) g/dL ABG Carboxyhemoglobin 2.0 H (0.5-1.5) % POC ABG HHb (Measured) 0.1 (0.0-5.0) % ABG Methemoglobin 1.4 (0.0-3.0) % Scout Test Pos A-a O2 Difference 53.0 mm/Hg Respiratory Index 0.3 Hgb O2 Saturation 96.5 (95.0-98.0) % Vent Mode Simv/ps Mechanical Rate 12 FiO2 40.0 % Tidal Volume 400 PEEP 5 Pressure Support 15 Sodium (132-148) mmol/L Potassium (3.6-5.2) mmol/L Chloride (98-107) mmol/L Carbon Dioxide (22-30) mmol/L Anion Gap (10-20) BUN (7-17) mg/dL Creatinine (0.7-1.2) mg/dL Est GFR ( Amer) Est GFR (Non-Af Amer) POC Glucose (mg/dL) 249 H 371 H (65-110) mg/dL Random Glucose (65-105) mg/dL Calcium (8.6-10.4) mg/dl Phosphorus (2.5-4.5) mg/dL Magnesium (1.6-2.3) mg/dL Total Bilirubin (0.2-1.3) mg/dL AST (14-36) U/L ALT (9-52) U/L Alkaline Phosphatase (38-126) U/L Total Protein (6.3-8.3) g/dL Albumin (3.5-5.0) g/dL Globulin (2.2-3.9) gm/dL Albumin/Globulin Ratio (1.0-2.1) 11/20/17 11/20/17 Range/Units 17:35 11:42 WBC (4.8-10.8) K/uL RBC (3.80-5.20) Mil/uL Hgb (11.0-16.0) g/dL Hct (34.0-47.0) % MCV (81.0-99.0) fL MCH (27.0-31.0) pg MCHC (33.0-37.0) g/dL RDW (11.5-14.5) % Plt Count (130-400) K/uL MPV (7.2-11.7) fL Neut % (Auto) (50.0-75.0) % Lymph % (Auto) (20.0-40.0) % [place] % (Auto) (0.0-10.0) % Eos % (Auto) (0.0-4.0) % Baso % (Auto) (0.0-2.0) % Neut # (Auto) (1.8-7.0) K/uL Lymph # (Auto) (1.0-4.3) K/uL [place] # (Auto) (0.0-0.8) K/uL Eos # (Auto) (0.0-0.7) K/uL Baso # (Auto) (0.0-0.2) K/uL PT (9.7-12.2) SECONDS INR APTT (21-34) SECONDS Puncture Site pCO2 (35-45) mm/Hg pO2 (80-100) mm/Hg HCO3 (21-28) mmol/L ABG pH (7.35-7.45) ABG Total CO2 (22-28) mmol/L ABG O2 Saturation (95-98) % ABG Base Excess (-2.0-3.0) mmol/L ABG Hemoglobin (11.7-17.4) g/dL ABG Carboxyhemoglobin (0.5-1.5) % POC ABG HHb (Measured) (0.0-5.0) % ABG Methemoglobin (0.0-3.0) % Scout Test A-a O2 Difference mm/Hg Respiratory Index Hgb O2 Saturation (95.0-98.0) % Vent Mode Mechanical Rate FiO2 % Tidal Volume PEEP Pressure Support Sodium (132-148) mmol/L Potassium (3.6-5.2) mmol/L Chloride (98-107) mmol/L Carbon Dioxide (22-30) mmol/L Anion Gap (10-20) BUN (7-17) mg/dL Creatinine (0.7-1.2) mg/dL Est GFR ( Amer) Est GFR (Non-Af Amer) POC Glucose (mg/dL) 328 H 235 H (65-110) mg/dL Random Glucose (65-105) mg/dL Calcium (8.6-10.4) mg/dl Phosphorus (2.5-4.5) mg/dL Magnesium (1.6-2.3) mg/dL Total Bilirubin (0.2-1.3) mg/dL AST (14-36) U/L ALT (9-52) U/L Alkaline Phosphatase (38-126) U/L Total Protein (6.3-8.3) g/dL Albumin (3.5-5.0) g/dL Globulin (2.2-3.9) gm/dL Albumin/Globulin Ratio (1.0-2.1) Laboratory Results - last 24 hr 11/20/17 11/20/17 11/20/17 11:42 17:35 23:37 WBC RBC Hgb Hct MCV MCH MCHC RDW Plt Count MPV Neut % (Auto) Lymph % (Auto) [place] % (Auto) Eos % (Auto) Baso % (Auto) Neut # (Auto) Lymph # (Auto) [place] # (Auto) Eos # (Auto) Baso # (Auto) PT INR APTT Puncture Site pCO2 pO2 HCO3 ABG pH ABG Total CO2 ABG O2 Saturation ABG Base Excess ABG Hemoglobin ABG Carboxyhemoglobin POC ABG HHb (Measured) ABG Methemoglobin Scout Test A-a O2 Difference Respiratory Index Hgb O2 Saturation Vent Mode Mechanical Rate FiO2 Tidal Volume PEEP Pressure Support Sodium Potassium Chloride Carbon Dioxide Anion Gap BUN Creatinine Est GFR ( Amer) Est GFR (Non-Af Amer) POC Glucose (mg/dL) 235 H 328 H 371 H Random Glucose Calcium Phosphorus Magnesium Total Bilirubin AST ALT Alkaline Phosphatase Total Protein Albumin Globulin Albumin/Globulin Ratio 11/21/17 11/21/17 11/21/17 05:00 05:43 06:28 WBC 15.5 H RBC 2.95 L Hgb 9.3 L Hct 28.3 L MCV 95.9 MCH 31.4 H MCHC 32.8 L RDW 14.7 H Plt Count 594 H MPV 7.9 Neut % (Auto) 73.8 Lymph % (Auto) 16.4 L [place] % (Auto) 9.2 Eos % (Auto) 0.2 Baso % (Auto) 0.4 Neut # (Auto) 11.4 H Lymph # (Auto) 2.5 [place] # (Auto) 1.4 H Eos # (Auto) 0.0 Baso # (Auto) 0.1 PT INR APTT Puncture Site Rr pCO2 35 pO2 188 H HCO3 27.5 ABG pH 7.49 H ABG Total CO2 27.8 ABG O2 Saturation 99.9 H ABG Base Excess 3.3 H ABG Hemoglobin 9.1 L ABG Carboxyhemoglobin 2.0 H POC ABG HHb (Measured) 0.1 ABG Methemoglobin 1.4 Scout Test Pos A-a O2 Difference 53.0 Respiratory Index 0.3 Hgb O2 Saturation 96.5 Vent Mode Simv/ps Mechanical Rate 12 FiO2 40.0 Tidal Volume 400 PEEP 5 Pressure Support 15 Sodium Potassium Chloride Carbon Dioxide Anion Gap BUN Creatinine Est GFR ( Amer) Est GFR (Non-Af Amer) POC Glucose (mg/dL) 249 H Random Glucose Calcium Phosphorus Magnesium Total Bilirubin AST ALT Alkaline Phosphatase Total Protein Albumin Globulin Albumin/Globulin Ratio 11/21/17 11/21/17 06:28 06:28 WBC RBC Hgb Hct MCV MCH MCHC RDW Plt Count MPV Neut % (Auto) Lymph % (Auto) [place] % (Auto) Eos % (Auto) Baso % (Auto) Neut # (Auto) Lymph # (Auto) [place] # (Auto) Eos # (Auto) Baso # (Auto) PT 12.8 H INR 1.1 APTT 25 Puncture Site pCO2 pO2 HCO3 ABG pH ABG Total CO2 ABG O2 Saturation ABG Base Excess ABG Hemoglobin ABG Carboxyhemoglobin POC ABG HHb (Measured) ABG Methemoglobin Scout Test A-a O2 Difference Respiratory Index Hgb O2 Saturation Vent Mode Mechanical Rate FiO2 Tidal Volume PEEP Pressure Support Sodium 158 H Potassium 4.6 Chloride 119 H Carbon Dioxide 24 Anion Gap 20 BUN 51 H Creatinine 0.9 Est GFR ( Amer) > 60 Est GFR (Non-Af Amer) 59 POC Glucose (mg/dL) Random Glucose 238 H Calcium 9.7 Phosphorus 3.2 Magnesium 2.5 H Total Bilirubin 0.6 AST 24 ALT 32 Alkaline Phosphatase 70 Total Protein 7.4 Albumin 3.6 Globulin 3.8 Albumin/Globulin Ratio 1.0 Fingerstick Blood Sugar Results: 371 Critical Care Progress Note - Nutrition Nutrition: Nutrition Category Date Time Status NPO Diet [DIET] Diets 11/21/17 Breakfast Active Assessment/Plan - Assessment and Plan (Free Text) Assessment: This is an 87 year old female with PMHx achalasia, DM, CAD, COPD, osteoarthritis who presented from the half-way for altered mental status and shortness of breath. Patient intubated and sedated. Patient being treated for MSSA pneumonia and Klebsiella PEG site infection. Patient has failed multiple weaning trials. Since she keeps failing weaning trials, tracheostomy planned for today. Patient initially hypotensive post procedure but responded to fluid boluses Neuro Intubated and now off of sedation Cardio Assessments: Labile blood pressure and heart rate, History of CAD Patient is off of her home medications while she is sedated Lopressor 50 mg PO BID Verapamil 2.5 mg IV Q4 prn elevated HR Pulm Assessment: MSSA pneumonia, ventilator dependent respiratory failure, History of COPD Vented Continually fails weaning trials Solumedrol 20 mg IV daily Duoneb Q6H Trach placed on 11/21/17 GI Tube feeds at goal rate Endocrine Assessment: DM Regular ISS Q6H Accuchecks Q6H Lantus 15 units SC HS Renal Good urine output Infectious Diseases Assessments: MSSA pneumonia and Klebsiella PEG site infection Vancomycin 1 gm Q24H Aztreonam 1 gm Q8H Fluconazole IV daily Bactroban for PEG site excoriations Nystatin topical Prophylaxis Heparin SC Q8 Protonix 40 mg suspension PEG daily Per surgery, no need for intervention for PEG site leak--secure flange close to skin Discussed with Dr. Watt <Christopher Watt S - Last Filed: 11/21/17 15:45> CCU Objective - Vital Signs / Intake & Output Vital Signs (Last 4 hours): Vital Signs Pulse Resp BP Pulse Ox 11/21/17 15:18 99 H 10 L 111/78 98 11/21/17 15:03 97 H 17 141/68 100 11/21/17 15:00 98 H 12 100 11/21/17 14:48 97 H 10 L 169/74 H 100 11/21/17 14:44 96 H 12 167/75 H 100 11/21/17 14:33 86 12 85/38 L 100 11/21/17 14:18 88 12 110/46 L 100 11/21/17 14:04 92 H 11 L 160/77 H 100 11/21/17 14:00 87 11 L 100 11/21/17 13:49 80 12 121/51 L 100 11/21/17 13:33 78 12 100/41 L 100 11/21/17 13:18 77 12 117/47 L 100 11/21/17 13:03 80 12 110/44 L 100 11/21/17 13:00 77 12 100 11/21/17 12:48 77 12 116/54 L 100 11/21/17 12:46 87 10 L 133/61 100 11/21/17 12:40 77 12 69/45 L 99 11/21/17 12:33 75 12 72/36 L 99 11/21/17 12:18 77 12 88/40 L 99 11/21/17 12:09 79 12 96/44 L 99 11/21/17 12:03 78 12 74/38 L 99 11/21/17 12:00 80 12 99 11/21/17 11:49 77 13 76/34 L 98 11/21/17 11:47 77 12 74/36 L 99 Intake and Output (Last 8hrs): Intake & Output 11/21/17 11/21/17 11/21/17 06:59 14:59 22:59 Intake Total 220 1320 35 Output Total 735 250 50 Balance -515 1070 -15 Intake: IV 50 Intake, IV Amount 150 1200 Right Distal Port 150 200 Internal Jugular Right Medial Port 1000 Internal Jugular Oral 0 Tube Feeding 70 70 35 Output: Urine 735 250 50 Urethral (Gregory) 735 250 50 - Medications Active Medications: Active Medications Generic Name Dose Route Start Last Admin Trade Name Freq PRN Reason Stop Dose Admin Acetaminophen 650 mg 11/10/17 10:52 11/19/17 21:33 Tylenol 650 Mg Supp NC 650 mg Q6 PRN Administration Fever >100.4 F Al Hydrox/Mg Hydrox/Simethicone 30 ml 11/16/17 10:15 Maalox 30 Ml TOP Q6H PRN Other Albuterol/Ipratropium 3 ml 11/10/17 14:00 11/21/17 13:45 Duoneb 3 Mg/0.5 Mg (3 Ml) Ud INH 3 ml RQ6 JUDY Administration Heparin Sodium (Porcine) 5,000 units 11/10/17 06:00 11/20/17 21:52 Heparin SC 5,000 units Q8 JUDY Administration Aztreonam 1 gm/ Sodium 100 mls @ 200 mls/hr 11/10/17 09:30 11/21/17 09:21 Chloride IVPB 200 mls/hr Q8H JUDY Administration Protocol Fluconazole 50 mls @ 100 mls/hr 11/12/17 13:00 11/21/17 10:35 Diflucan Iv 100 Mg/50 Ml Ns IVPB 100 mls/hr DAILY JUDY Administration Protocol Vancomycin HCl 1 gm/ Sodium 200 mls @ 166.7 mls/hr 11/18/17 10:00 11/21/17 10 :36 Chloride IVPB 166.7 mls/hr Q24H [facility] Administration Protocol Metronidazole 250 mg in 50 mls @ 100 mls/hr 11/20/17 00:00 11/21/17 12:04 Flagyl IVPB 11/25/17 00:01 Not Given Q8H [facility] Protocol Insulin Glargine 15 unit 11/21/17 22:00 Lantus SC HS [facility] Insulin Human Regular 0 unit 11/20/17 06:00 11/21/17 12:02 Novolin R SC Not Given Q6H [facility] Protocol Isosorbide Mononitrate 20 mg 11/18/17 12:00 11/21/17 09:24 Ismo PO Not Given DAILY [facility] Metoprolol Tartrate 50 mg 11/19/17 18:00 11/21/17 09:23 Lopressor PO 50 mg BID [facility] Administration Mupirocin 0 gm 11/12/17 10:15 11/21/17 09:26 Bactroban Ointment TOP 1 applic BID [facility] Administration Nystatin 0 gm 11/12/17 14:00 11/21/17 09:25 Nystop Topical Powder TOP 1 applic TID [facility] Administration Pantoprazole Sodium 40 mg 11/16/17 10:45 11/21/17 06:00 Protonix Susp PO Not Given 0600 [facility] Saccharomyces Boulardii 250 mg 11/21/17 10:00 11/21/17 09:24 Florastor PO Not Given TID [facility] - Patient Studies Lab Studies: Microbiology Studies 11/19/17 23:07 Gram Stain - Final Abdomen Wound Culture - Preliminary Gram Negative Sal 11/19/17 22:00 Blood Culture - Preliminary Blood-Venous NO GROWTH AFTER 24 HOURS 11/19/17 21:30 Blood Culture - Preliminary Blood-Venous NO GROWTH AFTER 24 HOURS Lab Studies 11/21/17 11/21/17 11/21/17 Range/Units 06:28 06:28 06:28 WBC 15.5 H (4.8-10.8) K/uL RBC 2.95 L (3.80-5.20) Mil/uL Hgb 9.3 L (11.0-16.0) g/dL Hct 28.3 L (34.0-47.0) % MCV 95.9 (81.0-99.0) fL MCH 31.4 H (27.0-31.0) pg MCHC 32.8 L (33.0-37.0) g/dL RDW 14.7 H (11.5-14.5) % Plt Count 594 H (130-400) K/uL MPV 7.9 (7.2-11.7) fL Neut % (Auto) 73.8 (50.0-75.0) % Lymph % (Auto) 16.4 L (20.0-40.0) % [place] % (Auto) 9.2 (0.0-10.0) % Eos % (Auto) 0.2 (0.0-4.0) % Baso % (Auto) 0.4 (0.0-2.0) % Neut # (Auto) 11.4 H (1.8-7.0) K/uL Lymph # (Auto) 2.5 (1.0-4.3) K/uL [place] # (Auto) 1.4 H (0.0-0.8) K/uL Eos # (Auto) 0.0 (0.0-0.7) K/uL Baso # (Auto) 0.1 (0.0-0.2) K/uL PT 12.8 H (9.7-12.2) SECONDS INR 1.1 APTT 25 (21-34) SECONDS Puncture Site pCO2 (35-45) mm/Hg pO2 (80-100) mm/Hg HCO3 (21-28) mmol/L ABG pH (7.35-7.45) ABG Total CO2 (22-28) mmol/L ABG O2 Saturation (95-98) % ABG Base Excess (-2.0-3.0) mmol/L ABG Hemoglobin (11.7-17.4) g/dL ABG Carboxyhemoglobin (0.5-1.5) % POC ABG HHb (Measured) (0.0-5.0) % ABG Methemoglobin (0.0-3.0) % Scout Test A-a O2 Difference mm/Hg Respiratory Index Hgb O2 Saturation (95.0-98.0) % Vent Mode Mechanical Rate FiO2 % Tidal Volume PEEP Pressure Support Sodium 158 H (132-148) mmol/L Potassium 4.6 (3.6-5.2) mmol/L Chloride 119 H (98-107) mmol/L Carbon Dioxide 24 (22-30) mmol/L Anion Gap 20 (10-20) BUN 51 H (7-17) mg/dL Creatinine 0.9 (0.7-1.2) mg/dL Est GFR ( Amer) > 60 Est GFR (Non-Af Amer) 59 POC Glucose (mg/dL) (65-110) mg/dL Random Glucose 238 H (65-105) mg/dL Calcium 9.7 (8.6-10.4) mg/dl Phosphorus 3.2 (2.5-4.5) mg/dL Magnesium 2.5 H (1.6-2.3) mg/dL Total Bilirubin 0.6 (0.2-1.3) mg/dL AST 24 (14-36) U/L ALT 32 (9-52) U/L Alkaline Phosphatase 70 (38-126) U/L Total Protein 7.4 (6.3-8.3) g/dL Albumin 3.6 (3.5-5.0) g/dL Globulin 3.8 (2.2-3.9) gm/dL Albumin/Globulin Ratio 1.0 (1.0-2.1) 11/21/17 11/21/17 11/20/17 Range/Units 05:43 05:00 23:37 WBC (4.8-10.8) K/uL RBC (3.80-5.20) Mil/uL Hgb (11.0-16.0) g/dL Hct (34.0-47.0) % MCV (81.0-99.0) fL MCH (27.0-31.0) pg MCHC (33.0-37.0) g/dL RDW (11.5-14.5) % Plt Count (130-400) K/uL MPV (7.2-11.7) fL Neut % (Auto) (50.0-75.0) % Lymph % (Auto) (20.0-40.0) % [place] % (Auto) (0.0-10.0) % Eos % (Auto) (0.0-4.0) % Baso % (Auto) (0.0-2.0) % Neut # (Auto) (1.8-7.0) K/uL Lymph # (Auto) (1.0-4.3) K/uL [place] # (Auto) (0.0-0.8) K/uL Eos # (Auto) (0.0-0.7) K/uL Baso # (Auto) (0.0-0.2) K/uL PT (9.7-12.2) SECONDS INR APTT (21-34) SECONDS Puncture Site Rr pCO2 35 (35-45) mm/Hg pO2 188 H (80-100) mm/Hg HCO3 27.5 (21-28) mmol/L ABG pH 7.49 H (7.35-7.45) ABG Total CO2 27.8 (22-28) mmol/L ABG O2 Saturation 99.9 H (95-98) % ABG Base Excess 3.3 H (-2.0-3.0) mmol/L ABG Hemoglobin 9.1 L (11.7-17.4) g/dL ABG Carboxyhemoglobin 2.0 H (0.5-1.5) % POC ABG HHb (Measured) 0.1 (0.0-5.0) % ABG Methemoglobin 1.4 (0.0-3.0) % Scout Test Pos A-a O2 Difference 53.0 mm/Hg Respiratory Index 0.3 Hgb O2 Saturation 96.5 (95.0-98.0) % Vent Mode Simv/ps Mechanical Rate 12 FiO2 40.0 % Tidal Volume 400 PEEP 5 Pressure Support 15 Sodium (132-148) mmol/L Potassium (3.6-5.2) mmol/L Chloride (98-107) mmol/L Carbon Dioxide (22-30) mmol/L Anion Gap (10-20) BUN (7-17) mg/dL Creatinine (0.7-1.2) mg/dL Est GFR ( Amer) Est GFR (Non-Af Amer) POC Glucose (mg/dL) 249 H 371 H (65-110) mg/dL Random Glucose (65-105) mg/dL Calcium (8.6-10.4) mg/dl Phosphorus (2.5-4.5) mg/dL Magnesium (1.6-2.3) mg/dL Total Bilirubin (0.2-1.3) mg/dL AST (14-36) U/L ALT (9-52) U/L Alkaline Phosphatase (38-126) U/L Total Protein (6.3-8.3) g/dL Albumin (3.5-5.0) g/dL Globulin (2.2-3.9) gm/dL Albumin/Globulin Ratio (1.0-2.1) //18 Range/Units 17:35 WBC (4.8-10.8) K/uL RBC (3.80-5.20) Mil/uL Hgb (11.0-16.0) g/dL Hct (34.0-47.0) % MCV (81.0-99.0) fL MCH (27.0-31.0) pg MCHC (33.0-37.0) g/dL RDW (11.5-14.5) % Plt Count (130-400) K/uL MPV (7.2-11.7) fL Neut % (Auto) (50.0-75.0) % Lymph % (Auto) (20.0-40.0) % [place] % (Auto) (0.0-10.0) % Eos % (Auto) (0.0-4.0) % Baso % (Auto) (0.0-2.0) % Neut # (Auto) (1.8-7.0) K/uL Lymph # (Auto) (1.0-4.3) K/uL [place] # (Auto) (0.0-0.8) K/uL Eos # (Auto) (0.0-0.7) K/uL Baso # (Auto) (0.0-0.2) K/uL PT (9.7-12.2) SECONDS INR APTT (21-34) SECONDS Puncture Site pCO2 (35-45) mm/Hg pO2 (80-100) mm/Hg HCO3 (21-28) mmol/L ABG pH (7.35-7.45) ABG Total CO2 (22-28) mmol/L ABG O2 Saturation (95-98) % ABG Base Excess (-2.0-3.0) mmol/L ABG Hemoglobin (11.7-17.4) g/dL ABG Carboxyhemoglobin (0.5-1.5) % POC ABG HHb (Measured) (0.0-5.0) % ABG Methemoglobin (0.0-3.0) % Scout Test A-a O2 Difference mm/Hg Respiratory Index Hgb O2 Saturation (95.0-98.0) % Vent Mode Mechanical Rate FiO2 % Tidal Volume PEEP Pressure Support Sodium (132-148) mmol/L Potassium (3.6-5.2) mmol/L Chloride (98-107) mmol/L Carbon Dioxide (22-30) mmol/L Anion Gap (10-20) BUN (7-17) mg/dL Creatinine (0.7-1.2) mg/dL Est GFR ( Amer) Est GFR (Non-Af Amer) POC Glucose (mg/dL) 328 H (65-110) mg/dL Random Glucose (65-105) mg/dL Calcium (8.6-10.4) mg/dl Phosphorus (2.5-4.5) mg/dL Magnesium (1.6-2.3) mg/dL Total Bilirubin (0.2-1.3) mg/dL AST (14-36) U/L ALT (9-52) U/L Alkaline Phosphatase (38-126) U/L Total Protein (6.3-8.3) g/dL Albumin (3.5-5.0) g/dL Globulin (2.2-3.9) gm/dL Albumin/Globulin Ratio (1.0-2.1) Laboratory Results - last 24 hr 11/20/17 11/20/17 11/21/17 17:35 23:37 05:00 WBC RBC Hgb Hct MCV MCH MCHC RDW Plt Count MPV Neut % (Auto) Lymph % (Auto) [place] % (Auto) Eos % (Auto) Baso % (Auto) Neut # (Auto) Lymph # (Auto) [place] # (Auto) Eos # (Auto) Baso # (Auto) PT INR APTT Puncture Site Rr pCO2 35 pO2 188 H HCO3 27.5 ABG pH 7.49 H ABG Total CO2 27.8 ABG O2 Saturation 99.9 H ABG Base Excess 3.3 H ABG Hemoglobin 9.1 L ABG Carboxyhemoglobin 2.0 H POC ABG HHb (Measured) 0.1 ABG Methemoglobin 1.4 Scout Test Pos A-a O2 Difference 53.0 Respiratory Index 0.3 Hgb O2 Saturation 96.5 Vent Mode Simv/ps Mechanical Rate 12 FiO2 40.0 Tidal Volume 400 PEEP 5 Pressure Support 15 Sodium Potassium Chloride Carbon Dioxide Anion Gap BUN Creatinine Est GFR ( Amer) Est GFR (Non-Af Amer) POC Glucose (mg/dL) 328 H 371 H Random Glucose Calcium Phosphorus Magnesium Total Bilirubin AST ALT Alkaline Phosphatase Total Protein Albumin Globulin Albumin/Globulin Ratio 11/21/17 11/21/17 11/21/17 05:43 06:28 06:28 WBC 15.5 H RBC 2.95 L Hgb 9.3 L Hct 28.3 L MCV 95.9 MCH 31.4 H MCHC 32.8 L RDW 14.7 H Plt Count 594 H MPV 7.9 Neut % (Auto) 73.8 Lymph % (Auto) 16.4 L [place] % (Auto) 9.2 Eos % (Auto) 0.2 Baso % (Auto) 0.4 Neut # (Auto) 11.4 H Lymph # (Auto) 2.5 [place] # (Auto) 1.4 H Eos # (Auto) 0.0 Baso # (Auto) 0.1 PT INR APTT Puncture Site pCO2 pO2 HCO3 ABG pH ABG Total CO2 ABG O2 Saturation ABG Base Excess ABG Hemoglobin ABG Carboxyhemoglobin POC ABG HHb (Measured) ABG Methemoglobin Scout Test A-a O2 Difference Respiratory Index Hgb O2 Saturation Vent Mode Mechanical Rate FiO2 Tidal Volume PEEP Pressure Support Sodium 158 H Potassium 4.6 Chloride 119 H Carbon Dioxide 24 Anion Gap 20 BUN 51 H Creatinine 0.9 Est GFR ( Amer) > 60 Est GFR (Non-Af Amer) 59 POC Glucose (mg/dL) 249 H Random Glucose 238 H Calcium 9.7 Phosphorus 3.2 Magnesium 2.5 H Total Bilirubin 0.6 AST 24 ALT 32 Alkaline Phosphatase 70 Total Protein 7.4 Albumin 3.6 Globulin 3.8 Albumin/Globulin Ratio 1.0 11/21/17 06:28 WBC RBC Hgb Hct MCV MCH MCHC RDW Plt Count MPV Neut % (Auto) Lymph % (Auto) [place] % (Auto) Eos % (Auto) Baso % (Auto) Neut # (Auto) Lymph # (Auto) [place] # (Auto) Eos # (Auto) Baso # (Auto) PT 12.8 H INR 1.1 APTT 25 Puncture Site pCO2 pO2 HCO3 ABG pH ABG Total CO2 ABG O2 Saturation ABG Base Excess ABG Hemoglobin ABG Carboxyhemoglobin POC ABG HHb (Measured) ABG Methemoglobin Scout Test A-a O2 Difference Respiratory Index Hgb O2 Saturation Vent Mode Mechanical Rate FiO2 Tidal Volume PEEP Pressure Support Sodium Potassium Chloride Carbon Dioxide Anion Gap BUN Creatinine Est GFR ( Amer) Est GFR (Non-Af Amer) POC Glucose (mg/dL) Random Glucose Calcium Phosphorus Magnesium Total Bilirubin AST ALT Alkaline Phosphatase Total Protein Albumin Globulin Albumin/Globulin Ratio Critical Care Progress Note - Nutrition Nutrition: Nutrition Category Date Time Status NPO Diet [DIET] Diets 11/21/17 Breakfast Active Attending/Attestation - Attestation I have personally seen and examined this patient.: Yes I have fully participated in the care of the patient.: Yes I have reviewed all pertinent clinical information: Yes Notes (Text): 11/21/17 15:44 patient seen and examined in the intensive care unit. Case discussed with house staff in the morning around Status post tracheostomy after patient failed CPAP trial multiple times Continue steroids and nebulizer treat Continue antibiotics Continue weaning
[2017-11-21] MEDS: Saccharomyces Boulardi 250 mg Cap PO SCH ×3 (09:24→17:44)
[2017-11-21] MEDS: Nystatin 100,000 Units/gm Topical Pow(15 gm) TOP SCH ×3 (09:25→17:49)
--- NOTE | 2017-11-21 10:24 | RAD ---
PROCEDURE: CHEST RADIOGRAPH, 1 VIEW HISTORY: Follow-up COMPARISON: 11/20/2017. FINDINGS: The endotracheal tube terminates 3 cm proximal to the renata. The right IJV line terminates at the cavoatrial junction. LUNGS: The lungs are well inflated and clear. There is mild pulmonary venous congestion. PLEURA: No pneumothorax or pleural fluid seen. CARDIOVASCULAR: The heart is normal in size. Status post CABG. There is stable position of left-sided unipolar transvenous permanent pacing device. OSSEOUS STRUCTURES: No significant abnormalities. VISUALIZED UPPER ABDOMEN: Normal. OTHER FINDINGS: None. IMPRESSION: No acute findings. Stable position of support line and tube.
[2017-11-21] MEDS: Fluconazole IV 100mg/50 ml NS 50 ML IVPB SCH (10:35)
[2017-11-21] MEDS: Vancomycin 1 GM in Sodium Chloride 0.9% 200 ML IVPB SCH (10:36)
[2017-11-21] MEDS ORDERED: Bupivacaine HCl 0.25% PF (30 ml) Inj ONE (10:40)
[2017-11-21] MEDS ORDERED: Lidocaine/Epinephrine 1% 1:100000 10 ML IJ ONE (10:42)
--- NOTE | 2017-11-21 11:59 | PCM.SURG1 ---
Surgeon's Initial Post Op Note - Surgeon's Notes Surgeon: Dr. Kidd Stone Derrickman And Rigger: RADHA Yang; Sabrina Osorio, PGY2 Pre-Operative Diagnosis: Respiratory distress requiring mechanical ventilation Operative Findings: normal anatomy, tracheostomy tube in appropriate position with end tidal CO2 return Post-Operative Diagnosis: same Operation Performed: percutaneous tracheostomy tube placement Specimen/Specimens Removed: none Estimated Blood Loss: EBL {In ML}: 1 Date of Surgery/Procedure: 11/21/17 Time of Surgery/Procedure: 11:00
[2017-11-21] MEDS: metroNIDAZOLE IV 250mg/50 ml 250 MG/50 ML BAG IVPB SCH ×3 (12:04→16:00)
--- NOTE | 2017-11-21 12:41 | RAD ---
HISTORY: s/p tracheostomy insertion COMPARISON: 11/21/2017. FINDINGS: There has been interval tracheostomy. The right IJV line terminates in the SVC. LUNGS: No active pulmonary disease. PLEURA: No significant pleural effusion identified, no pneumothorax apparent. CARDIOVASCULAR: The heart is normal in size. There is stable position of left-sided unipolar permanent pacing device. Status post CABG. Atherosclerotic aortic arch calcifications are present. OSSEOUS STRUCTURES: No significant abnormalities. VISUALIZED UPPER ABDOMEN: Normal. OTHER FINDINGS: None. IMPRESSION: Interval tracheostomy. No acute findings.
[2017-11-21] MEDS ORDERED: Sodium Chloride 0.9% 500 ML IV ONE (14:38)
--- NOTE | 2017-11-21 19:51 | CP.PCM.PN ---
<Leonard Lopez - Last Filed: 11/21/17 19:45> Subjective - Date & Time of Evaluation Date of Evaluation: 11/21/17 Time of Evaluation: 19:46 - Subjective Subjective: PGY-[address] Fernandez's cardiology service: Pt seen and examined at bedside. Nursing reports no acute events overnight. Pt for tracheostomy placement today. Objective - Vital Signs/Intake and Output Vital Signs (last 24 hours): Temp Pulse Resp BP Pulse Ox 99.0 F 83 12 77/41 L 99 11/21/17 16:00 11/21/17 17:03 11/21/17 17:03 11/21/17 17:03 11/21/17 17:03 Intake and Output: 11/21/17 11/22/17 18:59 06:59 Intake Total 1610 Output Total 450 Balance 1160 - Medications Medications: Current Medications Acetaminophen (Tylenol 650 Mg Supp) 650 mg [place] Q6 PRN PRN Reason: Fever >100.4 F Last Admin: 11/19/17 21:33 Dose: 650 mg Al Hydrox/Mg Hydrox/Simethicone (Maalox 30 Ml) 30 ml TOP Q6H PRN PRN Reason: Other Albuterol/Ipratropium (Duoneb 3 Mg/0.5 Mg (3 Ml) Ud) 3 ml INH RQ6 [facility] Last Admin: 11/21/17 19:42 Dose: 3 ml Heparin Sodium (Porcine) (Heparin) 5,000 units SC Q8 [facility] Last Admin: 11/21/17 13:43 Dose: 5,000 units Aztreonam 1 gm/ Sodium (Chloride) 100 mls @ 200 mls/hr IVPB Q8H [facility] PRN Reason: Protocol Last Admin: 11/21/17 17:44 Dose: 200 mls/hr Fluconazole (Diflucan Iv 100 Mg/50 Ml Ns) 50 mls @ 100 mls/hr IVPB DAILY [facility] PRN Reason: Protocol Last Admin: 11/21/17 10:35 Dose: 100 mls/hr Vancomycin HCl 1 gm/ Sodium (Chloride) 200 mls @ 166.7 mls/hr IVPB Q24H [facility] PRN Reason: Protocol Last Admin: 11/21/17 10:36 Dose: 166.7 mls/hr Metronidazole (Flagyl) 250 mg in 50 mls @ 100 mls/hr IVPB Q8H [facility] PRN Reason: Protocol Stop: 11/25/17 00:01 Last Admin: 11/21/17 16:00 Dose: 100 mls/hr Insulin Glargine (Lantus) 15 unit SC HS [facility] Insulin Human Regular (Novolin R) 0 unit SC Q6H [facility] PRN Reason: Protocol Last Admin: 11/21/17 17:46 Dose: 6 unit Isosorbide Mononitrate (Ismo) 20 mg PO DAILY [facility] Last Admin: 11/21/17 09:24 Dose: Not Given Metoprolol Tartrate (Lopressor) 50 mg PO BID [facility] Last Admin: 11/21/17 17:44 Dose: 50 mg Mupirocin (Bactroban Ointment) 0 gm TOP BID [facility] Last Admin: 11/21/17 17:47 Dose: Not Given Nystatin (Nystop Topical Powder) 0 gm TOP TID [facility] Last Admin: 11/21/17 17:49 Dose: 1 applic Pantoprazole Sodium (Protonix Susp) 40 mg PO 0600 [facility] Last Admin: 11/21/17 06:00 Dose: Not Given Saccharomyces Boulardii (Florastor) 250 mg PO TID [facility] Last Admin: 11/21/17 17:44 Dose: 250 mg - Labs Labs: 11/21/17 06:28 11/21/17 06:28 PT 12.8 SECONDS (9.7-12.2) H 11/21/17 06:28 INR 1.1 11/21/17 06:28 APTT 25 SECONDS (21-34) 11/21/17 06:28 - Additional Findings Additional findings: - Constitutional Appears: Chronically Ill - Head Exam Head Exam: ATRAUMATIC, NORMAL INSPECTION - Eye Exam Eye Exam: EOMI, PERRL - ENT Exam ENT Exam: Mucous Membranes Dry - Rt IJ TLC in place, ET tube - Respiratory Exam Respiratory Exam: Clear to Ausculation Bilateral Additional comments: ON MV - Cardiovascular Exam Cardiovascular Exam: REGULAR RHYTHM, +S1, +S2 - GI/Abdominal Exam GI & Abdominal Exam: Soft, Normal Bowel Sounds Additional comments: PEG tube - erythema around tube, no discharge - Extremities Exam Extremities Exam: Normal Capillary Refill, Normal Inspection - Back Exam Back Exam: absent: CVA tenderness (L), CVA tenderness (R) - Neurological Exam Neurological Exam: Altered Additional comments: intubated - Skin Skin Exam: Intact Assessment and Plan - Assessment and Plan (Free Text) Plan: Hx of CAD/HTN Labile BP today SVT/afib on this admission Hx coronary artery bypass grafting Lopressor 50 mg PO BID Isosorbide Mononitrate 20mg PO daily Verapamil 2.5 mg IV Q4 prn elevated HR No cardiac events. RSR on cardiac monitoring. Will continue to monitor Leonard Lopez PGY-[address] Fernandez <Loc Fernandez - Last Filed: 11/21/17 22:23> Objective - Vital Signs/Intake and Output Vital Signs (last 24 hours): Temp Pulse Resp BP Pulse Ox 99.2 F 115 H 12 143/85 99 11/21/17 20:00 11/21/17 21:19 11/21/17 21:19 11/21/17 21:19 11/21/17 21:19 Intake and Output: 11/21/17 11/22/17 18:59 06:59 Intake Total 1610 105 Output Total 450 300 Balance 1160 -195 - Medications Medications: Current Medications Acetaminophen (Tylenol 650 Mg Supp) 650 mg [place] Q6 PRN PRN Reason: Fever >100.4 F Last Admin: 11/19/17 21:33 Dose: 650 mg Al Hydrox/Mg Hydrox/Simethicone (Maalox 30 Ml) 30 ml TOP Q6H PRN PRN Reason: Other Albuterol/Ipratropium (Duoneb 3 Mg/0.5 Mg (3 Ml) Ud) 3 ml INH RQ6 [facility] Last Admin: 11/21/17 19:42 Dose: 3 ml Heparin Sodium (Porcine) (Heparin) 5,000 units SC Q8 [facility] Last Admin: 11/21/17 21:49 Dose: Not Given Aztreonam 1 gm/ Sodium (Chloride) 100 mls @ 200 mls/hr IVPB Q8H [facility] PRN Reason: Protocol Last Admin: 11/21/17 17:44 Dose: 200 mls/hr Fluconazole (Diflucan Iv 100 Mg/50 Ml Ns) 50 mls @ 100 mls/hr IVPB DAILY [facility] PRN Reason: Protocol Last Admin: 11/21/17 10:35 Dose: 100 mls/hr Vancomycin HCl 1 gm/ Sodium (Chloride) 200 mls @ 166.7 mls/hr IVPB Q24H [facility] PRN Reason: Protocol Last Admin: 11/21/17 10:36 Dose: 166.7 mls/hr Metronidazole (Flagyl) 250 mg in 50 mls @ 100 mls/hr IVPB Q8H [facility] PRN Reason: Protocol Stop: 11/25/17 00:01 Last Admin: 11/21/17 16:00 Dose: 100 mls/hr Insulin Glargine (Lantus) 15 unit SC HS [facility] Last Admin: 11/21/17 21:56 Dose: 15 units Insulin Human Regular (Novolin R) 0 unit SC Q6H [facility] PRN Reason: Protocol Last Admin: 11/21/17 17:46 Dose: 6 unit Isosorbide Mononitrate (Ismo) 20 mg PO DAILY [facility] Last Admin: 11/21/17 09:24 Dose: Not Given Metoprolol Tartrate (Lopressor) 50 mg PO BID [facility] Last Admin: 11/21/17 17:44 Dose: 50 mg Mupirocin (Bactroban Ointment) 0 gm TOP BID [facility] Last Admin: 11/21/17 17:47 Dose: Not Given Nystatin (Nystop Topical Powder) 0 gm TOP TID [facility] Last Admin: 11/21/17 17:49 Dose: 1 applic Pantoprazole Sodium (Protonix Susp) 40 mg PO 0600 [facility] Last Admin: 11/21/17 06:00 Dose: Not Given Saccharomyces Boulardii (Florastor) 250 mg PO TID [facility] Last Admin: 11/21/17 17:44 Dose: 250 mg - Labs Labs: 11/21/17 06:28 11/21/17 06:28 PT 12.8 SECONDS (9.7-12.2) H 11/21/17 06:28 INR 1.1 11/21/17 06:28 APTT 25 SECONDS (21-34) 11/21/17 06:28 Assessment and Plan - Assessment and Plan (Free Text) Plan: Patient seen and evaluated personally by me Plan of care d/w the medical clerical assistant and as documented
[2017-11-21] MEDS: (Lantus) Insulin Glargine, Recombinant SC SCH (21:56)
--- NOTE | 2017-11-21 22:22 | CP.PCM.PN ---
Subjective - Date & Time of Evaluation Date of Evaluation: 11/21/17 Time of Evaluation: 22:22 - Subjective Subjective: CHIEF COMPLAINTS TODAY : S/P TRACHEOSTOMY TODAY. MORE AWAKE ROS. ON OBSERVATION.DOES NOT FOLLOW COMMANDS HEENT : N. Resp : No SOB wheezing, cough +VE THICK SECRETIONS. Cardio : No CP, PND orthopnea GI : No abd. Pain, n/v INCIDENT RESPONSE COORDINATOR : No headache , focal deficit. Musculoskel : N Ext. : Pedal pulses intact, no edema or calf pain Derm : N Psych : N. PE. Pt. is, INTUBATED, in no distress.S/P TRACH TODAY 11/21/17 V.S As noted in the chart Head ,ear nose,throat and eyes : Normal. Neck : Supple with normal carotids. Lungs: B/L RHONCHI Heart : S1 & S2 normal . . No murmur. S4 + Abd : Soft non tender with normal bowel sounds.+VE PEG FEEDS +VE GT EXIT SITE DRAINAGE. Neuro : Moves all ext. with no localized deficit. Ext : No edema with intact pulses. Neg. calf tenderness Derm : No rashes or decubitus ulcer. Radiology/Labs . SPUTUM +VE staph aureus MSSA GT-EXIT SITE SECRETIONS +VE kLEBSIELLA PNEUMONIAE/Farheen ALBICANS. wbc 15.6 CREAT 0.6 LFTS N. VANCO TROUGH 17.1 ON 11/16 Asssessment : SEPSIS/FEVER SOURCE R/O GT EXIT SITE INFECTION R/O UTI ACUTE RESPIRATORY FAILURE /ASPIRATION PNEUMONIA. GT-EXIT SITE DRAINAGE. dIABETES MELLITUS. CAD/S/P CABG Plan: PANCULTURES ADD iv fLAGYL 250 EVERY 8 HOURLY 11/19/17 CONTINUE iv AZACTAM 1 G EVERY 8 HOURLY. 11/09/17. CONTINUE iv VANCOMYCIN 1 G EVERY 24 HOURLY. 11/10/17. ON iv dIFLUCAN 100 MG ONCE A DAY DAILY iv PIGGYBACK.-DAY 5 lOADING DOSE dIFLUCAN 200 MG GIVEN . MONITOR RENAL FUNCTIONS CLOSELY. PULMONARY TOILET Objective - Vital Signs/Intake and Output Vital Signs (last 24 hours): Temp Pulse Resp BP Pulse Ox 99.2 F 115 H 12 143/85 99 11/21/17 20:00 11/21/17 21:19 11/21/17 21:19 11/21/17 21:19 11/21/17 21:19 Intake and Output: 11/21/17 11/22/17 18:59 06:59 Intake Total 1610 105 Output Total 450 300 Balance 1160 -195 - Medications Medications: Current Medications Acetaminophen (Tylenol 650 Mg Supp) 650 mg [place] Q6 PRN PRN Reason: Fever >100.4 F Last Admin: 11/19/17 21:33 Dose: 650 mg Al Hydrox/Mg Hydrox/Simethicone (Maalox 30 Ml) 30 ml TOP Q6H PRN PRN Reason: Other Albuterol/Ipratropium (Duoneb 3 Mg/0.5 Mg (3 Ml) Ud) 3 ml INH RQ6 [facility] Last Admin: 11/21/17 19:42 Dose: 3 ml Heparin Sodium (Porcine) (Heparin) 5,000 units SC Q8 [facility] Last Admin: 11/21/17 21:49 Dose: Not Given Aztreonam 1 gm/ Sodium (Chloride) 100 mls @ 200 mls/hr IVPB Q8H [facility] PRN Reason: Protocol Last Admin: 11/21/17 17:44 Dose: 200 mls/hr Fluconazole (Diflucan Iv 100 Mg/50 Ml Ns) 50 mls @ 100 mls/hr IVPB DAILY [facility] PRN Reason: Protocol Last Admin: 11/21/17 10:35 Dose: 100 mls/hr Vancomycin HCl 1 gm/ Sodium (Chloride) 200 mls @ 166.7 mls/hr IVPB Q24H [facility] PRN Reason: Protocol Last Admin: 11/21/17 10:36 Dose: 166.7 mls/hr Metronidazole (Flagyl) 250 mg in 50 mls @ 100 mls/hr IVPB Q8H [facility] PRN Reason: Protocol Stop: 11/25/17 00:01 Last Admin: 11/21/17 16:00 Dose: 100 mls/hr Insulin Glargine (Lantus) 15 unit SC HS [facility] Last Admin: 11/21/17 21:56 Dose: 15 units Insulin Human Regular (Novolin R) 0 unit SC Q6H [facility] PRN Reason: Protocol Last Admin: 11/21/17 17:46 Dose: 6 unit Isosorbide Mononitrate (Ismo) 20 mg PO DAILY [facility] Last Admin: 11/21/17 09:24 Dose: Not Given Metoprolol Tartrate (Lopressor) 50 mg PO BID [facility] Last Admin: 11/21/17 17:44 Dose: 50 mg Mupirocin (Bactroban Ointment) 0 gm TOP BID [facility] Last Admin: 11/21/17 17:47 Dose: Not Given Nystatin (Nystop Topical Powder) 0 gm TOP TID [facility] Last Admin: 11/21/17 17:49 Dose: 1 applic Pantoprazole Sodium (Protonix Susp) 40 mg PO 0600 [facility] Last Admin: 11/21/17 06:00 Dose: Not Given Saccharomyces Boulardii (Florastor) 250 mg PO TID [facility] Last Admin: 11/21/17 17:44 Dose: 250 mg - Labs Labs: 11/21/17 06:28 11/21/17 06:28 PT 12.8 SECONDS (9.7-12.2) H 11/21/17 06:28 INR 1.1 11/21/17 06:28 APTT 25 SECONDS (21-34) 11/21/17 06:28 Assessment and Plan (1) Sepsis Status: Acute (2) Respiratory failure with hypoxia Status: Acute (3) Pneumonia Status: Acute (4) Leukocytosis Status: Acute (5) Gastrostomy tube in place Status: Acute (6) CAD (coronary artery disease) Status: Acute (7) Uncontrolled diabetes mellitus Status: Acute (8) Hx of CABG Status: Acute
--- NOTE | 2017-11-21 22:24 | OP ---
PROCEDURE DATE: 11/21/2017 PREOPERATIVE DIAGNOSES: 1. Ventilator-dependent respiratory failure. 2. Pneumonia. 3. Unable to wean from the ventilator. POSTOPERATIVE DIAGNOSES: 1. Ventilator-dependent respiratory failure. 2. Pneumonia. 3. Unable to wean from the ventilator. PROCEDURE DONE: 1. Percutaneous tracheostomy. 2. Bronchoscopy intraoperative. SURGEON: The procedure was done by Guilherme alejandre MD. MANAGER SURGERY: RADHA Beasley; and Sabrina Osorio, PGY-2 resident. ANESTHESIA: General endotracheal tube anesthesia. ESTIMATED BLOOD LOSS: Around 10 mL. DRAINS: None. PATHOLOGY: None. COMPLICATIONS: None. INTRAOPERATIVE FINDINGS: The patient had some mucous secretion of the trachea as well as right main bronchus that was suctioned out. DESCRIPTION OF PROCEDURE: On intraoperative steps, this is an 87-year-old female who was diagnosed with vent-dependent respiratory failure, and the patient was intubated, and the patient's family was consented for percutaneous tracheostomy. The patient was brought to the OR, placed supine on the operating table. After induction of the anesthesia, the neck was prepped and draped in usual sterile fashion. The first bronchoscopy was done and the suctioning of the trachea as well as the ET tube was done, and then under bronchoscopy guidance, the small incision was made in the lower part of the neck, and the trachea was identified. The needle was introduced under bronchoscopy guidance, and a guide wire was placed. The trach was dilated with gradual dilatation and #8 tracheostomy tube was placed, and after that, the tube was connected to the ventilator machine and the end tidal CO2 was identified, and the tracheostomy tube was secured to the skin, and the balloon was inflated and dry sterile dressing was applied. The patient tolerated the procedure well. The patient was extubated, and the patient was sent to the ICU for further treatment. Extubated means, the ET tube was taken out, the tracheostomy tube was kept in, and the patient tolerated the procedure well. Count of instrument and gauze was correct. There was no apparent complication. Guilherme Kidd MD [facility] # [id number] MTDD
[2017-11-22] MEDS: (Novolin R) Insulin Human Regular 100 units/ml vial SC SCH ×4 (00:45→18:15)
[2017-11-22] MEDS: Aztreonam 1 GM in Sodium Chloride 0.9% 100 ML IVPB SCH ×2 (01:10→09:10)
[2017-11-22] MEDS: Albuterol-Ipratrop 3 mg / 0.5 (3 ml) UD INH SCH ×4 (01:20→19:54)
[2017-11-22] MEDS: Pantoprazole 40 mg Susp UD PO SCH (05:59)
[2017-11-22 06:55] LABS: ALBUMIN 3.3 g/dL (3.5-5.0); ALT/SGPT 30 U/L (9-52); AST/SGOT 19 U/L (14-36); BLOOD UREA NITROGEN 47 mg/dL (7-17); CALCIUM 9.6 mg/dl (8.6-10.4); GFR AFRICAN-AMERICAN > 60; GFR NON-AFRICAN AMERICAN 59
[2017-11-22 06:56] LABS: BASO % 0.3 % (0.0-2.0); EOS # 0.2 K/uL (0.0-0.7); EOS % 1.5 % (0.0-4.0); HEMOGLOBIN 8.6 g/dL (11.0-16.0); MEAN CELL VOLUME 96.9 fL (81.0-99.0); MEAN CORPUSCULAR HEMOGLOBIN 31.7 pg (27.0-31.0); MEAN CORPUSCULAR HGB CONC 32.7 g/dL (33.0-37.0); MEAN PLATELET VOLUME 8.4 fL (7.2-11.7); MONO # 0.9 K/uL (0.0-0.8); MONO % 5.8 % (0.0-10.0); NEUT # 12.1 K/uL (1.8-7.0); NEUT % 79.4 % (50.0-75.0); NRBC % 0.1 % (0.0-2.0); RBC 2.73 Mil/uL (3.80-5.20); RED CELL DISTRIBUTION WIDTH 14.8 % (11.5-14.5); WHITE BLOOD COUNT 15.3 K/uL (4.8-10.8)
[2017-11-22] MEDS: metroNIDAZOLE IV 250mg/50 ml 250 MG/50 ML BAG IVPB SCH ×3 (08:20→16:05)
[2017-11-22] MEDS: Nystatin 100,000 Units/gm Topical Pow(15 gm) TOP SCH ×3 (09:08→18:08)
--- NOTE | 2017-11-22 09:49 | CP.PCM.PN ---
<Alaina Benoit - Last Filed: 11/22/17 09:47> Subjective - Date & Time of Evaluation Date of Evaluation: 11/22/17 Time of Evaluation: 09:47 - Subjective Subjective: General Surgery - DR. Kidd Pt S&E. MISA. Pt is currently on CPAP, off sedation, awakens to verbal stimuli. Trach site c/d/i with no bleeding. No Fevers/Chills. Objective - Vital Signs/Intake and Output Vital Signs (last 24 hours): Temp Pulse Resp BP Pulse Ox 99.1 F 106 H 23 148/42 L 99 11/22/17 08:00 11/22/17 09:00 11/22/17 09:00 11/22/17 08:37 11/22/17 09:00 Intake and Output: 11/22/17 11/22/17 06:59 18:59 Intake Total 770 120 Output Total 800 Balance -30 120 - Medications Medications: Current Medications Acetaminophen (Tylenol 650 Mg Supp) 650 mg [place] Q6 PRN PRN Reason: Fever >100.4 F Last Admin: 11/19/17 21:33 Dose: 650 mg Al Hydrox/Mg Hydrox/Simethicone (Maalox 30 Ml) 30 ml TOP Q6H PRN PRN Reason: Other Albuterol/Ipratropium (Duoneb 3 Mg/0.5 Mg (3 Ml) Ud) 3 ml INH RQ6 [facility] Last Admin: 11/22/17 07:42 Dose: 3 ml Heparin Sodium (Porcine) (Heparin) 5,000 units SC Q8 [facility] Last Admin: 11/22/17 05:59 Dose: 5,000 units Aztreonam 1 gm/ Sodium (Chloride) 100 mls @ 200 mls/hr IVPB Q8H [facility] PRN Reason: Protocol Last Admin: 11/22/17 01:10 Dose: 200 mls/hr Fluconazole (Diflucan Iv 100 Mg/50 Ml Ns) 50 mls @ 100 mls/hr IVPB DAILY [facility] PRN Reason: Protocol Last Admin: 11/21/17 10:35 Dose: 100 mls/hr Vancomycin HCl 1 gm/ Sodium (Chloride) 200 mls @ 166.7 mls/hr IVPB Q24H [facility] PRN Reason: Protocol Last Admin: 11/21/17 10:36 Dose: 166.7 mls/hr Metronidazole (Flagyl) 250 mg in 50 mls @ 100 mls/hr IVPB Q8H [facility] PRN Reason: Protocol Stop: 11/25/17 00:01 Last Admin: 11/22/17 00:00 Dose: 100 mls/hr Insulin Glargine (Lantus) 15 unit SC HS [facility] Last Admin: 11/21/17 21:56 Dose: 15 units Insulin Human Regular (Novolin R) 0 unit SC Q6H [facility] PRN Reason: Protocol Last Admin: 11/22/17 05:58 Dose: 6 unit Isosorbide Mononitrate (Ismo) 20 mg PO DAILY [facility] Last Admin: 11/21/17 09:24 Dose: Not Given Metoprolol Tartrate (Lopressor) 50 mg PO BID [facility] Last Admin: 11/21/17 17:44 Dose: 50 mg Mupirocin (Bactroban Ointment) 0 gm TOP BID [facility] Last Admin: 11/21/17 17:47 Dose: Not Given Nystatin (Nystop Topical Powder) 0 gm TOP TID [facility] Last Admin: 11/21/17 17:49 Dose: 1 applic Pantoprazole Sodium (Protonix Susp) 40 mg PO 0600 [facility] Last Admin: 11/22/17 05:59 Dose: 40 mg Saccharomyces Boulardii (Florastor) 250 mg PO TID [facility] Last Admin: 11/21/17 17:44 Dose: 250 mg - Labs Labs: 11/22/17 06:28 11/22/17 06:30 PT 12.8 SECONDS (9.7-12.2) H 11/21/17 06:28 INR 1.1 11/21/17 06:28 APTT 25 SECONDS (21-34) 11/21/17 06:28 - Constitutional Appears: No Acute Distress - Head Exam Head Exam: ATRAUMATIC, NORMAL INSPECTION, NORMOCEPHALIC - Respiratory Exam Respiratory Exam: NORMAL BREATHING PATTERN. absent: Respiratory Distress Additional comments: Trach midline, no bleeding or leak - Neurological Exam Neurological Exam: Awake - Skin Skin Exam: Dry, Intact Assessment and Plan - Assessment and Plan (Free Text) Assessment: 87F w/ respiratory failure, S/P perc trach, POD 1 Plan: -Trach site looks good -Continue weaning off vent -Surgery will sign off -Remove sutures in [address] Kidd <Guilherme Kidd - Last Filed: 11/24/17 19:25> Objective - Vital Signs/Intake and Output Vital Signs (last 24 hours): Temp Pulse Resp BP Pulse Ox 98.7 F 99 H 14 151/63 H 99 11/23/17 16:00 11/23/17 19:02 11/23/17 19:02 11/23/17 19:02 11/23/17 19:02 - Labs Labs: 11/23/17 05:48 11/23/17 05:49 PT 12.8 SECONDS (9.7-12.2) H 11/21/17 06:28 INR 1.1 11/21/17 06:28 APTT 25 SECONDS (21-34) 11/21/17 06:28 Attending/Attestation - Attestation I have personally seen and examined this patient.: Yes I have fully participated in the care of the patient.: Yes I have reviewed all pertinent clinical information, including history, physical exam and plan: Yes Notes (Text): Pt was seen and examined at bedside Agree with above note and assessment Pt is s/p Perc Trach and Bronchoscopy Local wound care c/w current mx Plan d.w primary team in detail
[2017-11-22] MEDS: Saccharomyces Boulardi 250 mg Cap PO SCH ×3 (10:11→18:11)
[2017-11-22] MEDS: Vancomycin 1 GM in Sodium Chloride 0.9% 200 ML IVPB SCH (10:12)
[2017-11-22] MEDS: Fluconazole IV 100mg/50 ml NS 50 ML IVPB SCH (10:15)
--- NOTE | 2017-11-22 13:04 | CP.CCUPN ---
<Henry Lee - Last Filed: 11/22/17 12:59> CCU Subjective - Physician Review Subjective (Free Text): 11/19/17 11:43 Patient seen and examined. Patient is intubated but off of sedation. She is very lethargic and unable to follow commands. 11/20/17 08:48 Patient seen and examined. Patient is still lethargic and unable to follow commands. 11/21/17 08:50 Patient seen and examined. Patient remains lethargic. She is for tracheostomy placement later today. 11/22/17 12:59 Patient seen and examined. Patient has periods of apnea and was placed on pressure support. CCU Objective - Vital Signs / Intake & Output Vital Signs (Last 4 hours): Vital Signs Pulse Resp Pulse Ox 11/22/17 09:00 106 H 23 99 Intake and Output (Last 8hrs): Intake & Output 11/21/17 11/22/17 11/22/17 22:59 06:59 14:59 Intake Total 630 430 120 Output Total 500 500 Balance 130 -70 120 Intake: Intake, IV Amount 150 150 50 Right Distal Port 150 150 50 Internal Jugular Tube Feeding 280 280 70 Other 200 Output: Urine 500 500 Condom 500 Urethral (Gregory) 500 - Physical Exam Head: Positive for: Atraumatic, Normocephalic Pupils: Positive for: PERRL Conjunctiva: Positive for: Normal Mouth: Positive for: Dry, Other (endotracheal tube in place) Neck: Positive for: Other (Right IJ TLC in place) Respiratory/Chest: Positive for: Decreased Breath Sounds, Other (vented) Cardiovascular: Positive for: Normal S1, S2, Tachycardic Abdomen: Positive for: Distention (but soft), Normal Bowel Sounds, Feeding Tubes (PEG tube), Other (excoriations around PEG tube) Upper Extremity: Positive for: Normal Inspection Lower Extremity: Positive for: Normal Inspection Skin: Positive for: Warm, Dry Psychiatric: Positive for: Lethargic - Medications Active Medications: Active Medications Generic Name Dose Route Start Last Admin Trade Name Freq PRN Reason Stop Dose Admin Acetaminophen 650 mg 11/10/17 10:52 11/19/17 21:33 Tylenol 650 Mg Supp AL 650 mg Q6 PRN Administration Fever >100.4 F Albuterol/Ipratropium 3 ml 11/10/17 14:00 11/22/17 07:42 Duoneb 3 Mg/0.5 Mg (3 Ml) Ud INH 3 ml RQ6 [facility] Administration Heparin Sodium (Porcine) 5,000 units 11/10/17 06:00 11/22/17 05:59 Heparin SC 5,000 units Q8 JUDY Administration Fluconazole 50 mls @ 100 mls/hr 11/12/17 13:00 11/21/17 10:35 Diflucan Iv 100 Mg/50 Ml Ns IVPB 100 mls/hr DAILY [facility] Administration Protocol Vancomycin HCl 1 gm/ Sodium 200 mls @ 166.7 mls/hr 11/18/17 10:00 11/21/17 10 :36 Chloride IVPB 166.7 mls/hr Q24H [facility] Administration Protocol Metronidazole 250 mg in 50 mls @ 100 mls/hr 11/20/17 00:00 11/22/17 00:00 Flagyl IVPB 11/25/17 00:01 100 mls/hr Q8H JUDY Administration Protocol Gentamicin Sulfate 80 mg/ 102 mls @ 100 mls/hr 11/22/17 12:15 Sodium Chloride IVPB 11/26/17 13:17 Q24H JUDY Protocol Insulin Glargine 15 unit 11/21/17 22:00 11/21/17 21:56 Lantus SC 15 units HS JUDY Administration Insulin Human Regular 0 unit 11/20/17 06:00 11/22/17 05:58 Novolin R SC 6 unit Q6H [facility]Y Administration Protocol Isosorbide Mononitrate 20 mg 11/18/17 12:00 11/21/17 09:24 Ismo PO Not Given DAILY [facility] Metoprolol Tartrate 50 mg 11/19/17 18:00 11/21/17 17:44 Lopressor PO 50 mg BID JUDY Administration Mupirocin 0 gm 11/12/17 10:15 11/21/17 17:47 Bactroban Ointment TOP Not Given BID [facility] Nystatin 0 gm 11/12/17 14:00 11/21/17 17:49 Nystop Topical Powder TOP 1 applic TID JUDY Administration Pantoprazole Sodium 40 mg 11/16/17 10:45 11/22/17 05:59 Protonix Susp PO 40 mg 0600 JUDY Administration Saccharomyces Boulardii 250 mg 11/21/17 10:00 11/21/17 17:44 Florastor PO 250 mg TID JUDY Administration - Patient Studies Lab Studies: Microbiology Studies 11/19/17 22:30 Urine Culture - Final Urine,Catheterized No Growth (<1,000 CFU/ML) 11/19/17 23:07 Gram Stain - Final Abdomen Wound Culture - Final Klebsiella Pneumoniae Ssp Pneu Coagulase Neg Staphylococcus 11/19/17 22:00 Blood Culture - Preliminary Blood-Venous NO GROWTH AFTER 48 HOURS 11/19/17 21:30 Blood Culture - Preliminary Blood-Venous NO GROWTH AFTER 48 HOURS Lab Studies 11/22/17 11/22/17 11/22/17 Range/Units 11:36 06:30 06:28 WBC 15.3 H (4.8-10.8) K/uL RBC 2.73 L (3.80-5.20) Mil/uL Hgb 8.6 L (11.0-16.0) g/dL Hct 26.4 L (34.0-47.0) % MCV 96.9 (81.0-99.0) fL MCH 31.7 H (27.0-31.0) pg MCHC 32.7 L (33.0-37.0) g/dL RDW 14.8 H (11.5-14.5) % Plt Count 484 H D (130-400) K/uL MPV 8.4 (7.2-11.7) fL Neut % (Auto) 79.4 H (50.0-75.0) % Lymph % (Auto) 13.0 L (20.0-40.0) % [place] % (Auto) 5.8 (0.0-10.0) % Eos % (Auto) 1.5 (0.0-4.0) % Baso % (Auto) 0.3 (0.0-2.0) % Neut # (Auto) 12.1 H (1.8-7.0) K/uL Lymph # (Auto) 2.0 (1.0-4.3) K/uL [place] # (Auto) 0.9 H (0.0-0.8) K/uL Eos # (Auto) 0.2 (0.0-0.7) K/uL Baso # (Auto) 0.0 (0.0-0.2) K/uL Sodium 159 H (132-148) mmol/L Potassium 3.9 (3.6-5.2) mmol/L Chloride 121 H (98-107) mmol/L Carbon Dioxide 25 (22-30) mmol/L Anion Gap 18 (10-20) BUN 47 H (7-17) mg/dL Creatinine 0.9 (0.7-1.2) mg/dL Est GFR ( Amer) > 60 Est GFR (Non-Af Amer) 59 POC Glucose (mg/dL) 172 H (65-110) mg/dL Random Glucose 245 H (65-105) mg/dL Calcium 9.6 (8.6-10.4) mg/dl Phosphorus 3.3 (2.5-4.5) mg/dL Magnesium 2.5 H (1.6-2.3) mg/dL Total Bilirubin 0.5 (0.2-1.3) mg/dL AST 19 (14-36) U/L ALT 30 (9-52) U/L Alkaline Phosphatase 61 (38-126) U/L Total Protein 6.7 (6.3-8.3) g/dL Albumin 3.3 L (3.5-5.0) g/dL Globulin 3.3 (2.2-3.9) gm/dL Albumin/Globulin Ratio 1.0 (1.0-2.1) 11/22/17 11/22/17 11/21/17 Range/Units 05:15 00:14 17:36 WBC (4.8-10.8) K/uL RBC (3.80-5.20) Mil/uL Hgb (11.0-16.0) g/dL Hct (34.0-47.0) % MCV (81.0-99.0) fL MCH (27.0-31.0) pg MCHC (33.0-37.0) g/dL RDW (11.5-14.5) % Plt Count (130-400) K/uL MPV (7.2-11.7) fL Neut % (Auto) (50.0-75.0) % Lymph % (Auto) (20.0-40.0) % [place] % (Auto) (0.0-10.0) % Eos % (Auto) (0.0-4.0) % Baso % (Auto) (0.0-2.0) % Neut # (Auto) (1.8-7.0) K/uL Lymph # (Auto) (1.0-4.3) K/uL [place] # (Auto) (0.0-0.8) K/uL Eos # (Auto) (0.0-0.7) K/uL Baso # (Auto) (0.0-0.2) K/uL Sodium (132-148) mmol/L Potassium (3.6-5.2) mmol/L Chloride (98-107) mmol/L Carbon Dioxide (22-30) mmol/L Anion Gap (10-20) BUN (7-17) mg/dL Creatinine (0.7-1.2) mg/dL Est GFR ( Amer) Est GFR (Non-Af Amer) POC Glucose (mg/dL) 255 H 378 H 281 H (65-110) mg/dL Random Glucose (65-105) mg/dL Calcium (8.6-10.4) mg/dl Phosphorus (2.5-4.5) mg/dL Magnesium (1.6-2.3) mg/dL Total Bilirubin (0.2-1.3) mg/dL AST (14-36) U/L ALT (9-52) U/L Alkaline Phosphatase (38-126) U/L Total Protein (6.3-8.3) g/dL Albumin (3.5-5.0) g/dL Globulin (2.2-3.9) gm/dL Albumin/Globulin Ratio (1.0-2.1) 11/21/17 Range/Units 12:20 WBC (4.8-10.8) K/uL RBC (3.80-5.20) Mil/uL Hgb (11.0-16.0) g/dL Hct (34.0-47.0) % MCV (81.0-99.0) fL MCH (27.0-31.0) pg MCHC (33.0-37.0) g/dL RDW (11.5-14.5) % Plt Count (130-400) K/uL MPV (7.2-11.7) fL Neut % (Auto) (50.0-75.0) % Lymph % (Auto) (20.0-40.0) % [place] % (Auto) (0.0-10.0) % Eos % (Auto) (0.0-4.0) % Baso % (Auto) (0.0-2.0) % Neut # (Auto) (1.8-7.0) K/uL Lymph # (Auto) (1.0-4.3) K/uL [place] # (Auto) (0.0-0.8) K/uL Eos # (Auto) (0.0-0.7) K/uL Baso # (Auto) (0.0-0.2) K/uL Sodium (132-148) mmol/L Potassium (3.6-5.2) mmol/L Chloride (98-107) mmol/L Carbon Dioxide (22-30) mmol/L Anion Gap (10-20) BUN (7-17) mg/dL Creatinine (0.7-1.2) mg/dL Est GFR ( Amer) Est GFR (Non-Af Amer) POC Glucose (mg/dL) 281 H (65-110) mg/dL Random Glucose (65-105) mg/dL Calcium (8.6-10.4) mg/dl Phosphorus (2.5-4.5) mg/dL Magnesium (1.6-2.3) mg/dL Total Bilirubin (0.2-1.3) mg/dL AST (14-36) U/L ALT (9-52) U/L Alkaline Phosphatase (38-126) U/L Total Protein (6.3-8.3) g/dL Albumin (3.5-5.0) g/dL Globulin (2.2-3.9) gm/dL Albumin/Globulin Ratio (1.0-2.1) Laboratory Results - last 24 hr 11/21/17 11/21/17 11/22/17 12:20 17:36 00:14 WBC RBC Hgb Hct MCV MCH MCHC RDW Plt Count MPV Neut % (Auto) Lymph % (Auto) [place] % (Auto) Eos % (Auto) Baso % (Auto) Neut # (Auto) Lymph # (Auto) [place] # (Auto) Eos # (Auto) Baso # (Auto) Sodium Potassium Chloride Carbon Dioxide Anion Gap BUN Creatinine Est GFR ( Amer) Est GFR (Non-Af Amer) POC Glucose (mg/dL) 281 H 281 H 378 H Random Glucose Calcium Phosphorus Magnesium Total Bilirubin AST ALT Alkaline Phosphatase Total Protein Albumin Globulin Albumin/Globulin Ratio 11/22/17 11/22/17 11/22/17 05:15 06:28 06:30 WBC 15.3 H RBC 2.73 L Hgb 8.6 L Hct 26.4 L MCV 96.9 MCH 31.7 H MCHC 32.7 L RDW 14.8 H Plt Count 484 H D MPV 8.4 Neut % (Auto) 79.4 H Lymph % (Auto) 13.0 L [place] % (Auto) 5.8 Eos % (Auto) 1.5 Baso % (Auto) 0.3 Neut # (Auto) 12.1 H Lymph # (Auto) 2.0 [place] # (Auto) 0.9 H Eos # (Auto) 0.2 Baso # (Auto) 0.0 Sodium 159 H Potassium 3.9 Chloride 121 H Carbon Dioxide 25 Anion Gap 18 BUN 47 H Creatinine 0.9 Est GFR ( Amer) > 60 Est GFR (Non-Af Amer) 59 POC Glucose (mg/dL) 255 H Random Glucose 245 H Calcium 9.6 Phosphorus 3.3 Magnesium 2.5 H Total Bilirubin 0.5 AST 19 ALT 30 Alkaline Phosphatase 61 Total Protein 6.7 Albumin 3.3 L Globulin 3.3 Albumin/Globulin Ratio 1.0 11/22/17 11:36 WBC RBC Hgb Hct MCV MCH MCHC RDW Plt Count MPV Neut % (Auto) Lymph % (Auto) [place] % (Auto) Eos % (Auto) Baso % (Auto) Neut # (Auto) Lymph # (Auto) [place] # (Auto) Eos # (Auto) Baso # (Auto) Sodium Potassium Chloride Carbon Dioxide Anion Gap BUN Creatinine Est GFR ( Amer) Est GFR (Non-Af Amer) POC Glucose (mg/dL) 172 H Random Glucose Calcium Phosphorus Magnesium Total Bilirubin AST ALT Alkaline Phosphatase Total Protein Albumin Globulin Albumin/Globulin Ratio Fingerstick Blood Sugar Results: 255 Critical Care Progress Note - Nutrition Nutrition: Nutrition Category Date Time Status NPO Diet [DIET] Diets 11/21/17 Breakfast Active Assessment/Plan - Assessment and Plan (Free Text) Assessment: This is an 87 year old female with PMHx achalasia, DM, CAD, COPD, osteoarthritis who presented from the skilled nursing for altered mental status and shortness of breath. Patient intubated and sedated. Patient being treated for MSSA pneumonia and Klebsiella PEG site infection. Patient has failed multiple weaning trials. Since she keeps failing weaning trials, tracheostomy done on 11/21/17. Neuro Intubated and now off of sedation Cardio Assessments: Labile blood pressure and heart rate, History of CAD Lopressor 50 mg PO BID Isosorbide Mononitrate 20 mg PO daily Verapamil 2.5 mg IV Q4 prn elevated HR Pulm Assessment: MSSA pneumonia, ventilator dependent respiratory failure, History of COPD Vented Continually fails weaning trials Solumedrol 20 mg IV daily Duoneb Q6H Trach placed on 11/21/17 GI Tube feeds at goal rate Endocrine Assessment: DM Regular ISS Q6H Accuchecks Q6H Lantus 15 units SC HS Renal Good urine output Infectious Diseases Assessments: MSSA pneumonia and Klebsiella PEG site infection Vancomycin 1 gm Q24H Fluconazole IV daily Bactroban for PEG site excoriations Nystatin topical Reculture of PEG site re-grew Klebsiella. ID ordered for 5 doses of Gentamicin 80 mg IV Q24H Prophylaxis Heparin SC Q8 Protonix 40 mg suspension PEG daily Per surgery, no need for intervention for PEG site leak--secure flange close to skin Discussed with Dr. Josiah Dennis <Srinath Dennis - Last Filed: 11/24/17 17:03> CCU Objective - Patient Studies Lab Studies: Microbiology Studies 11/19/17 22:00 Blood Culture - Preliminary Blood-Venous NO GROWTH AFTER 4 DAYS 11/19/17 21:30 Blood Culture - Preliminary Blood-Venous NO GROWTH AFTER 4 DAYS Lab Studies 11/23/17 Range/Units 17:11 POC Glucose (mg/dL) 248 H (65-110) mg/dL Laboratory Results - last 24 hr 11/23/17 17:11 POC Glucose (mg/dL) 248 H Assessment/Plan - Assessment and Plan (Free Text) Plan: Above resident note reviewed and verified. Patient s/p trach /peg with MSSA infection being treated broadly. -continue rx as per ID -continue CPAP trials daily -continue Rx as per Dr. Colin
[2017-11-22] MEDS: (Lantus) Insulin Glargine, Recombinant SC SCH (21:47)
[2017-11-23] MEDS: (Novolin R) Insulin Human Regular 100 units/ml vial SC SCH ×4 (00:19→17:15)
[2017-11-23] MEDS: metroNIDAZOLE IV 250mg/50 ml 250 MG/50 ML BAG IVPB SCH ×3 (00:20→16:05)
[2017-11-23] MEDS: Albuterol-Ipratrop 3 mg / 0.5 (3 ml) UD INH SCH ×3 (01:04→14:00)
[2017-11-23] MEDS: Pantoprazole 40 mg Susp UD PO SCH (05:37)
[2017-11-23 05:58] LABS: BASO # 0.1 K/uL (0.0-0.2); BASO % 0.9 % (0.0-2.0); EOS # 0.4 K/uL (0.0-0.7); EOS % 3.3 % (0.0-4.0); HEMOGLOBIN 8.6 g/dL (11.0-16.0); LYMPH # 1.8 K/uL (1.0-4.3); MEAN CELL VOLUME 96.7 fL (81.0-99.0); MEAN CORPUSCULAR HEMOGLOBIN 33.4 pg (27.0-31.0); MEAN CORPUSCULAR HGB CONC 34.6 g/dL (33.0-37.0); MEAN PLATELET VOLUME 8.4 fL (7.2-11.7); MONO # 0.7 K/uL (0.0-0.8); MONO % 6.2 % (0.0-10.0); NEUT # 7.8 K/uL (1.8-7.0); NEUT % 72.6 % (50.0-75.0); RBC 2.58 Mil/uL (3.80-5.20); RED CELL DISTRIBUTION WIDTH 14.1 % (11.5-14.5); WHITE BLOOD COUNT 10.7 K/uL (4.8-10.8)
[2017-11-23 06:41] LABS: ALB/GLOB RATIO 0.9 (1.0-2.1); ALBUMIN 3.1 g/dL (3.5-5.0); ALT/SGPT 23 U/L (9-52); AST/SGOT 17 U/L (14-36); BLOOD UREA NITROGEN 40 mg/dL (7-17); CALCIUM 10.1 mg/dl (8.6-10.4); GFR AFRICAN-AMERICAN > 60; GFR NON-AFRICAN AMERICAN 59
--- NOTE | 2017-11-23 07:36 | CP.PCM.PN ---
Subjective - Date & Time of Evaluation Date of Evaluation: 11/22/17 Time of Evaluation: 18:30 - Subjective Subjective: Pt seen and examined at bedside. No new events noted Physical examination - Additional Findings Additional findings: - Constitutional Appears: Chronically Ill - Head Exam Head Exam: ATRAUMATIC, NORMAL INSPECTION - Eye Exam Eye Exam: EOMI, PERRL - ENT Exam ENT Exam: Mucous Membranes Dry - Rt IJ TLC in place, ET tube - Respiratory Exam Respiratory Exam: Clear to Ausculation Bilateral Additional comments: ON MV - Cardiovascular Exam Cardiovascular Exam: REGULAR RHYTHM, +S1, +S2 - GI/Abdominal Exam GI & Abdominal Exam: Soft, Normal Bowel Sounds Additional comments: PEG tube - erythema around tube, no discharge - Extremities Exam Extremities Exam: Normal Capillary Refill, Normal Inspection - Back Exam Back Exam: absent: CVA tenderness (L), CVA tenderness (R) - Neurological Exam Neurological Exam: Altered Additional comments: intubated - Skin Skin Exam: Intact Objective - Vital Signs/Intake and Output Vital Signs (last 24 hours): Temp Pulse Resp BP Pulse Ox 99 F 109 H 12 161/76 H 100 11/23/17 04:00 11/23/17 07:00 11/23/17 07:00 11/23/17 06:36 11/23/17 07:00 Intake and Output: 11/23/17 11/23/17 06:59 18:59 Intake Total 870 35 Output Total 300 Balance 570 35 - Medications Medications: Current Medications Acetaminophen (Tylenol 650 Mg Supp) [address] Q6 PRN PRN Reason: Fever >100.4 F Last Admin: 11/19/17 21:33 Dose: 650 mg Albuterol/Ipratropium (Duoneb 3 Mg/0.5 Mg (3 Ml) Ud) 3 ml INH RQ6 [facility] Last Admin: 11/23/17 01:04 Dose: 3 ml Heparin Sodium (Porcine) (Heparin) 5,000 units SC Q8 [facility] Last Admin: 11/23/17 05:37 Dose: 5,000 units Fluconazole (Diflucan Iv 100 Mg/50 Ml Ns) 50 mls @ 100 mls/hr IVPB DAILY [facility] PRN Reason: Protocol Last Admin: 11/22/17 10:15 Dose: 100 mls/hr Vancomycin HCl 1 gm/ Sodium (Chloride) 200 mls @ 166.7 mls/hr IVPB Q24H [facility] PRN Reason: Protocol Last Admin: 11/22/17 10:12 Dose: 166.7 mls/hr Metronidazole (Flagyl) 250 mg in 50 mls @ 100 mls/hr IVPB Q8H [facility] PRN Reason: Protocol Stop: 11/25/17 00:01 Last Admin: 11/23/17 00:20 Dose: 100 mls/hr Gentamicin Sulfate 80 mg/ (Sodium Chloride) 102 mls @ 100 mls/hr IVPB Q24H [facility] PRN Reason: Protocol Stop: 11/26/17 13:17 Last Admin: 11/22/17 13:35 Dose: 100 mls/hr Insulin Glargine (Lantus) 15 unit SC HS [facility] Last Admin: 11/22/17 21:47 Dose: 15 units Insulin Human Regular (Novolin R) 0 unit SC Q6H [facility] PRN Reason: Protocol Last Admin: 11/23/17 05:37 Dose: 4 unit Isosorbide Mononitrate (Ismo) 20 mg PO DAILY [facility] Last Admin: 11/22/17 10:11 Dose: 20 mg Metoprolol Tartrate (Lopressor) 50 mg PO BID [facility] Last Admin: 11/22/17 18:13 Dose: 50 mg Mupirocin (Bactroban Ointment) 0 gm TOP BID [facility] Last Admin: 11/22/17 18:09 Dose: Not Given Nystatin (Nystop Topical Powder) 0 gm TOP TID [facility] Last Admin: 11/22/17 18:08 Dose: 1 applic Pantoprazole Sodium (Protonix Susp) 40 mg PO 0600 [facility] Last Admin: 11/23/17 05:37 Dose: 40 mg Saccharomyces Boulardii (Florastor) 250 mg PO TID [facility] Last Admin: 11/22/17 18:11 Dose: 250 mg - Labs Labs: 11/23/17 05:48 11/23/17 05:49 PT 12.8 SECONDS (9.7-12.2) H 11/21/17 06:28 INR 1.1 11/21/17 06:28 APTT 25 SECONDS (21-34) 11/21/17 06:28 Assessment and Plan - Assessment and Plan (Free Text) Assessment: This is an 87 year old female with PMHx achalasia, DM, CAD, COPD, osteoarthritis who presented from the intermediate for altered mental status and shortness of breath. Patient intubated and sedated. Patient being treated for MSSA pneumonia and Klebsiella PEG site infection. Patient has failed multiple weaning trials. Since she keeps failing weaning trials, tracheostomy planned for today. Patient initially hypotensive post procedure but responded to fluid boluses Neuro Intubated and now off of sedation Cardio Assessments: Labile blood pressure and heart rate, History of CAD Patient is off of her home medications while she is sedated Lopressor 50 mg PO BID Verapamil 2.5 mg IV Q4 prn elevated HR Pulm Assessment: MSSA pneumonia, ventilator dependent respiratory failure, History of COPD Vented Continually fails weaning trials Solumedrol 20 mg IV daily Duoneb Q6H Trach placed on 11/21/17 GI Tube feeds at goal rate Endocrine Assessment: DM Regular ISS Q6H Accuchecks Q6H Lantus 15 units SC HS Renal Good urine output Infectious Diseases Assessments: MSSA pneumonia and Klebsiella PEG site infection Vancomycin 1 gm Q24H Aztreonam 1 gm Q8H Fluconazole IV daily Bactroban for PEG site excoriations Nystatin topical Prophylaxis Heparin SC Q8 Protonix 40 mg suspension PEG daily Per surgery, no need for intervention for PEG site leak--secure flange close to skin
[2017-11-23] MEDS: Saccharomyces Boulardi 250 mg Cap PO SCH ×3 (09:26→17:18)
[2017-11-23] MEDS: Fluconazole IV 100mg/50 ml NS 50 ML IVPB SCH (09:27)
[2017-11-23] MEDS: Nystatin 100,000 Units/gm Topical Pow(15 gm) TOP SCH ×3 (09:27→17:19)
[2017-11-23] MEDS: Vancomycin 1 GM in Sodium Chloride 0.9% 200 ML IVPB SCH (09:28)
--- NOTE | 2017-11-23 10:00 | CP.PCM.PN ---
<Leonard Lopez - Last Filed: 11/23/17 20:36> Subjective - Date & Time of Evaluation Date of Evaluation: 11/23/17 Time of Evaluation: 09:58 - Subjective Subjective: PGY-[address] Fernandez's cardiology service: Pt seen and examined at bedside. Nursing reports no acute events overnight. ROS unavailable. For LTACH today. Objective - Vital Signs/Intake and Output Vital Signs (last 24 hours): Temp Pulse Resp BP Pulse Ox 98.9 F 112 H 20 131/67 100 11/23/17 08:00 11/23/17 08:01 11/23/17 08:01 11/23/17 08:01 11/23/17 08:00 Intake and Output: 11/23/17 11/23/17 06:59 18:59 Intake Total 870 370 Output Total 300 Balance 570 370 - Medications Medications: Current Medications Acetaminophen (Tylenol 650 Mg Supp) 650 mg [place] Q6 PRN PRN Reason: Fever >100.4 F Last Admin: 11/19/17 21:33 Dose: 650 mg Albuterol/Ipratropium (Duoneb 3 Mg/0.5 Mg (3 Ml) Ud) 3 ml INH RQ6 [facility] Last Admin: 11/23/17 08:07 Dose: 3 ml Heparin Sodium (Porcine) (Heparin) 5,000 units SC Q8 [facility] Last Admin: 11/23/17 05:37 Dose: 5,000 units Fluconazole (Diflucan Iv 100 Mg/50 Ml Ns) 50 mls @ 100 mls/hr IVPB DAILY [facility] PRN Reason: Protocol Last Admin: 11/23/17 09:27 Dose: 100 mls/hr Vancomycin HCl 1 gm/ Sodium (Chloride) 200 mls @ 166.7 mls/hr IVPB Q24H [facility] PRN Reason: Protocol Last Admin: 11/23/17 09:28 Dose: 166.7 mls/hr Metronidazole (Flagyl) 250 mg in 50 mls @ 100 mls/hr IVPB Q8H [facility] PRN Reason: Protocol Stop: 11/25/17 00:01 Last Admin: 11/23/17 08:13 Dose: 100 mls/hr Gentamicin Sulfate 80 mg/ (Sodium Chloride) 102 mls @ 100 mls/hr IVPB Q24H [facility] PRN Reason: Protocol Stop: 11/26/17 13:17 Last Admin: 11/22/17 13:35 Dose: 100 mls/hr Sodium Chloride (Sodium Chloride 0.45%) 500 mls @ 75 mls/hr IV .Q6H40M [facility] Insulin Glargine (Lantus) 15 unit SC HS [facility] Last Admin: 11/22/17 21:47 Dose: 15 units Insulin Human Regular (Novolin R) 0 unit SC Q6H [facility] PRN Reason: Protocol Last Admin: 11/23/17 05:37 Dose: 4 unit Isosorbide Mononitrate (Ismo) 20 mg PO DAILY [facility] Last Admin: 11/22/17 10:11 Dose: 20 mg Metoprolol Tartrate (Lopressor) 50 mg PO BID [facility] Last Admin: 11/23/17 09:26 Dose: 50 mg Mupirocin (Bactroban Ointment) 0 gm TOP BID [facility] Last Admin: 11/22/17 18:09 Dose: Not Given Nystatin (Nystop Topical Powder) 0 gm TOP TID [facility] Last Admin: 11/23/17 09:27 Dose: 1 applic Pantoprazole Sodium (Protonix Susp) 40 mg PO 0600 [facility] Last Admin: 11/23/17 05:37 Dose: 40 mg Saccharomyces Boulardii (Florastor) 250 mg PO TID [facility] Last Admin: 11/23/17 09:26 Dose: 250 mg - Labs Labs: 11/23/17 05:48 11/23/17 05:49 PT 12.8 SECONDS (9.7-12.2) H 11/21/17 06:28 INR 1.1 11/21/17 06:28 APTT 25 SECONDS (21-34) 11/21/17 06:28 - Additional Findings Additional findings: - Constitutional Appears: Chronically Ill - Head Exam Head Exam: ATRAUMATIC, NORMAL INSPECTION - Eye Exam Eye Exam: EOMI, PERRL - ENT Exam ENT Exam: Mucous Membranes Dry - Rt IJ TLC in place, ET tube - Respiratory Exam Respiratory Exam: Clear to Ausculation Bilateral Additional comments: ON MV - Cardiovascular Exam Cardiovascular Exam: REGULAR RHYTHM, +S1, +S2 - GI/Abdominal Exam GI & Abdominal Exam: Soft, Normal Bowel Sounds Additional comments: PEG tube - erythema around tube, no discharge - Extremities Exam Extremities Exam: Normal Capillary Refill, Normal Inspection - Back Exam Back Exam: absent: CVA tenderness (L), CVA tenderness (R) - Neurological Exam Neurological Exam: Altered Additional comments: intubated - Skin Skin Exam: Intact Assessment and Plan - Assessment and Plan (Free Text) Plan: Hx of CAD/HTN SVT/afib on this admission Hx coronary artery bypass grafting Lopressor 50 mg PO BID Isosorbide Mononitrate 20mg PO daily Verapamil 2.5 mg IV Q4 prn elevated HR No cardiac events. RSR on cardiac monitoring. Will continue to monitor Leonadr Lopez PGY-[address] Fernandez <Loc Fernandez - Last Filed: 11/24/17 06:24> Subjective - Subjective Subjective: Patient seen and evaluated personally by ak Plan of care d/w the medical chemist and as documented Objective - Vital Signs/Intake and Output Vital Signs (last 24 hours): Temp Pulse Resp BP Pulse Ox 98.7 F 99 H 14 151/63 H 99 11/23/17 16:00 11/23/17 19:02 11/23/17 19:02 11/23/17 19:02 11/23/17 19:02 Intake and Output: 11/23/17 11/24/17 18:59 06:59 Intake Total 1758 260 Output Total 250 Balance 1508 260 - Labs Labs: 11/23/17 05:48 11/23/17 05:49 PT 12.8 SECONDS (9.7-12.2) H 11/21/17 06:28 INR 1.1 11/21/17 06:28 APTT 25 SECONDS (21-34) 11/21/17 06:28
--- NOTE | 2017-11-23 11:29 | CP.CCUPN ---
<Henry Lee - Last Filed: 11/23/17 11:24> CCU Subjective - Physician Review Subjective (Free Text): 11/19/17 11:43 Patient seen and examined. Patient is intubated but off of sedation. She is very lethargic and unable to follow commands. 11/20/17 08:48 Patient seen and examined. Patient is still lethargic and unable to follow commands. 11/21/17 08:50 Patient seen and examined. Patient remains lethargic. She is for tracheostomy placement later today. 11/22/17 12:59 Patient seen and examined. Patient has periods of apnea and was placed on pressure support. 11/23/17 11:24 Patient seen and examined. Patient is being prepared for LTACH. CCU Objective - Vital Signs / Intake & Output Vital Signs (Last 4 hours): Vital Signs Temp Pulse Resp BP Pulse Ox 11/23/17 11:00 89 11 L 99 11/23/17 10:02 96 H 15 158/75 H 99 11/23/17 09:04 109 H 10 L 141/88 96 11/23/17 08:01 112 H 20 131/67 11/23/17 08:00 98.9 F 113 H 13 99 11/23/17 07:36 113 H 11 L 162/79 H 100 Intake and Output (Last 8hrs): Intake & Output 11/22/17 11/23/17 11/23/17 22:59 06:59 14:59 Intake Total 330 730 370 Output Total 200 300 Balance 130 430 370 Intake: Intake, IV Amount 50 50 50 Right Distal Port 50 Internal Jugular Right Medial Port 50 Internal Jugular Right Proximal Port 50 Internal Jugular Tube Feeding 280 280 70 Other 400 250 Output: Urine 200 300 Condom 200 300 Other: # Bowel Movements 0 1 - Physical Exam Head: Positive for: Atraumatic, Normocephalic Pupils: Positive for: PERRL Conjunctiva: Positive for: Normal Mouth: Positive for: Dry Neck: Positive for: Trachea Midline, Other (Right IJ TLC in place) Respiratory/Chest: Positive for: Decreased Breath Sounds Cardiovascular: Positive for: Normal S1, S2, Tachycardic Abdomen: Positive for: Distention (but soft), Normal Bowel Sounds, Feeding Tubes (PEG tube), Other (excoriations around PEG tube) Upper Extremity: Positive for: Normal Inspection Lower Extremity: Positive for: Normal Inspection Skin: Positive for: Warm, Dry Psychiatric: Positive for: Lethargic - Medications Active Medications: Active Medications Generic Name Dose Route Start Last Admin Trade Name Freq PRN Reason Stop Dose Admin Acetaminophen 650 mg 11/10/17 10:52 11/19/17 21:33 Tylenol 650 Mg Supp NM 650 mg Q6 PRN Administration Fever >100.4 F Albuterol/Ipratropium 3 ml 11/10/17 14:00 11/23/17 08:07 Duoneb 3 Mg/0.5 Mg (3 Ml) Ud INH 3 ml RQ6 JUDY Administration Heparin Sodium (Porcine) 5,000 units 11/10/17 06:00 11/23/17 05:37 Heparin SC 5,000 units Q8 JUDY Administration Fluconazole 50 mls @ 100 mls/hr 11/12/17 13:00 11/23/17 09:27 Diflucan Iv 100 Mg/50 Ml Ns IVPB 100 mls/hr DAILY JUDY Administration Protocol Vancomycin HCl 1 gm/ Sodium 200 mls @ 166.7 mls/hr 11/18/17 10:00 11/23/17 09 :28 Chloride IVPB 166.7 mls/hr Q24H JUDY Administration Protocol Metronidazole 250 mg in 50 mls @ 100 mls/hr 11/20/17 00:00 11/23/17 08:13 Flagyl IVPB 11/25/17 00:01 100 mls/hr Q8H JUDY Administration Protocol Gentamicin Sulfate 80 mg/ 102 mls @ 100 mls/hr 11/22/17 12:15 11/22/17 13:35 Sodium Chloride IVPB 11/26/17 13:17 100 mls/hr Q24H JUDY Administration Protocol Sodium Chloride 500 mls @ 75 mls/hr 11/23/17 10:00 11/23/17 10:31 Sodium Chloride 0.45% IV 75 mls/hr .[id number] JUDY Administration Insulin Glargine 15 unit 11/21/17 22:00 11/22/17 21:47 Lantus SC 15 units HS JUDY Administration Insulin Human Regular 0 unit 11/20/17 06:00 11/23/17 05:37 Novolin R SC 4 unit Q6H JUDY Administration Protocol Isosorbide Mononitrate 20 mg 11/18/17 12:00 11/23/17 10:29 Ismo PO 20 mg DAILY JUDY Administration Metoprolol Tartrate 50 mg 11/19/17 18:00 11/23/17 09:26 Lopressor PO 50 mg BID JUDY Administration Mupirocin 0 gm 11/12/17 10:15 11/22/17 18:09 Bactroban Ointment TOP Not Given BID JUDY Nystatin 0 gm 11/12/17 14:00 11/23/17 09:27 Nystop Topical Powder TOP 1 applic TID JUDY Administration Pantoprazole Sodium 40 mg 11/16/17 10:45 11/23/17 05:37 Protonix Susp PO 40 mg 0600 JUDY Administration Saccharomyces Boulardii 250 mg 11/21/17 10:00 11/23/17 09:26 Florastor PO 250 mg TID JUDY Administration - Patient Studies Lab Studies: Microbiology Studies 11/19/17 23:07 Gram Stain - Final Abdomen Wound Culture - Final Klebsiella Pneumoniae Ssp Pneu Coagulase Neg Staphylococcus 11/19/17 22:00 Blood Culture - Preliminary Blood-Venous NO GROWTH AFTER 3 DAYS 11/19/17 21:30 Blood Culture - Preliminary Blood-Venous NO GROWTH AFTER 3 DAYS 11/19/17 22:30 Urine Culture - Final Urine,Catheterized No Growth (<1,000 CFU/ML) Lab Studies 11/23/17 11/23/17 11/23/17 Range/Units 05:49 05:49 05:48 WBC 10.7 (4.8-10.8) K/uL RBC 2.58 L (3.80-5.20) Mil/uL Hgb 8.6 L (11.0-16.0) g/dL Hct 24.9 L (34.0-47.0) % MCV 96.7 (81.0-99.0) fL MCH 33.4 H (27.0-31.0) pg MCHC 34.6 (33.0-37.0) g/dL RDW 14.1 (11.5-14.5) % Plt Count 450 H (130-400) K/uL MPV 8.4 (7.2-11.7) fL Neut % (Auto) 72.6 (50.0-75.0) % Lymph % (Auto) 17.0 L (20.0-40.0) % [place] % (Auto) 6.2 (0.0-10.0) % Eos % (Auto) 3.3 (0.0-4.0) % Baso % (Auto) 0.9 (0.0-2.0) % Neut # (Auto) 7.8 H (1.8-7.0) K/uL Lymph # (Auto) 1.8 (1.0-4.3) K/uL [place] # (Auto) 0.7 (0.0-0.8) K/uL Eos # (Auto) 0.4 (0.0-0.7) K/uL Baso # (Auto) 0.1 (0.0-0.2) K/uL Sodium 161 H* (132-148) mmol/L Potassium 3.7 (3.6-5.2) mmol/L Chloride 121 H (98-107) mmol/L Carbon Dioxide 28 (22-30) mmol/L Anion Gap 16 (10-20) BUN 40 H (7-17) mg/dL Creatinine 0.9 (0.7-1.2) mg/dL Est GFR ( Amer) > 60 Est GFR (Non-Af Amer) 59 POC Glucose (mg/dL) (65-110) mg/dL Random Glucose 216 H (65-105) mg/dL Calcium 10.1 (8.6-10.4) mg/dl Phosphorus 3.6 (2.5-4.5) mg/dL Magnesium 2.6 H (1.6-2.3) mg/dL Total Bilirubin 0.5 (0.2-1.3) mg/dL AST 17 (14-36) U/L ALT 23 (9-52) U/L Alkaline Phosphatase 56 (38-126) U/L Total Protein 6.4 (6.3-8.3) g/dL Albumin 3.1 L (3.5-5.0) g/dL Globulin 3.3 (2.2-3.9) gm/dL Albumin/Globulin Ratio 0.9 L (1.0-2.1) Vancomycin Trough 20.8 H (5.0-10.0) ug/mL 11/23/17 11/22/17 11/22/17 Range/Units 05:25 23:34 17:37 WBC (4.8-10.8) K/uL RBC (3.80-5.20) Mil/uL Hgb (11.0-16.0) g/dL Hct (34.0-47.0) % MCV (81.0-99.0) fL MCH (27.0-31.0) pg MCHC (33.0-37.0) g/dL RDW (11.5-14.5) % Plt Count (130-400) K/uL MPV (7.2-11.7) fL Neut % (Auto) (50.0-75.0) % Lymph % (Auto) (20.0-40.0) % [place] % (Auto) (0.0-10.0) % Eos % (Auto) (0.0-4.0) % Baso % (Auto) (0.0-2.0) % Neut # (Auto) (1.8-7.0) K/uL Lymph # (Auto) (1.0-4.3) K/uL [place] # (Auto) (0.0-0.8) K/uL Eos # (Auto) (0.0-0.7) K/uL Baso # (Auto) (0.0-0.2) K/uL Sodium (132-148) mmol/L Potassium (3.6-5.2) mmol/L Chloride (98-107) mmol/L Carbon Dioxide (22-30) mmol/L Anion Gap (10-20) BUN (7-17) mg/dL Creatinine (0.7-1.2) mg/dL Est GFR ( Amer) Est GFR (Non-Af Amer) POC Glucose (mg/dL) 220 H 341 H 281 H (65-110) mg/dL Random Glucose (65-105) mg/dL Calcium (8.6-10.4) mg/dl Phosphorus (2.5-4.5) mg/dL Magnesium (1.6-2.3) mg/dL Total Bilirubin (0.2-1.3) mg/dL AST (14-36) U/L ALT (9-52) U/L Alkaline Phosphatase (38-126) U/L Total Protein (6.3-8.3) g/dL Albumin (3.5-5.0) g/dL Globulin (2.2-3.9) gm/dL Albumin/Globulin Ratio (1.0-2.1) Vancomycin Trough (5.0-10.0) ug/mL 11/22/17 Range/Units 11:36 WBC (4.8-10.8) K/uL RBC (3.80-5.20) Mil/uL Hgb (11.0-16.0) g/dL Hct (34.0-47.0) % MCV (81.0-99.0) fL MCH (27.0-31.0) pg MCHC (33.0-37.0) g/dL RDW (11.5-14.5) % Plt Count (130-400) K/uL MPV (7.2-11.7) fL Neut % (Auto) (50.0-75.0) % Lymph % (Auto) (20.0-40.0) % [place] % (Auto) (0.0-10.0) % Eos % (Auto) (0.0-4.0) % Baso % (Auto) (0.0-2.0) % Neut # (Auto) (1.8-7.0) K/uL Lymph # (Auto) (1.0-4.3) K/uL [place] # (Auto) (0.0-0.8) K/uL Eos # (Auto) (0.0-0.7) K/uL Baso # (Auto) (0.0-0.2) K/uL Sodium (132-148) mmol/L Potassium (3.6-5.2) mmol/L Chloride (98-107) mmol/L Carbon Dioxide (22-30) mmol/L Anion Gap (10-20) BUN (7-17) mg/dL Creatinine (0.7-1.2) mg/dL Est GFR ( Amer) Est GFR (Non-Af Amer) POC Glucose (mg/dL) 172 H (65-110) mg/dL Random Glucose (65-105) mg/dL Calcium (8.6-10.4) mg/dl Phosphorus (2.5-4.5) mg/dL Magnesium (1.6-2.3) mg/dL Total Bilirubin (0.2-1.3) mg/dL AST (14-36) U/L ALT (9-52) U/L Alkaline Phosphatase (38-126) U/L Total Protein (6.3-8.3) g/dL Albumin (3.5-5.0) g/dL Globulin (2.2-3.9) gm/dL Albumin/Globulin Ratio (1.0-2.1) Vancomycin Trough (5.0-10.0) ug/mL Laboratory Results - last 24 hr 11/22/17 11/22/17 11/22/17 11:36 17:37 23:34 WBC RBC Hgb Hct MCV MCH MCHC RDW Plt Count MPV Neut % (Auto) Lymph % (Auto) [place] % (Auto) Eos % (Auto) Baso % (Auto) Neut # (Auto) Lymph # (Auto) [place] # (Auto) Eos # (Auto) Baso # (Auto) Sodium Potassium Chloride Carbon Dioxide Anion Gap BUN Creatinine Est GFR ( Amer) Est GFR (Non-Af Amer) POC Glucose (mg/dL) 172 H 281 H 341 H Random Glucose Calcium Phosphorus Magnesium Total Bilirubin AST ALT Alkaline Phosphatase Total Protein Albumin Globulin Albumin/Globulin Ratio Vancomycin Trough 11/23/17 11/23/17 11/23/17 05:25 05:48 05:49 WBC 10.7 RBC 2.58 L Hgb 8.6 L Hct 24.9 L MCV 96.7 MCH 33.4 H MCHC 34.6 RDW 14.1 Plt Count 450 H MPV 8.4 Neut % (Auto) 72.6 Lymph % (Auto) 17.0 L [place] % (Auto) 6.2 Eos % (Auto) 3.3 Baso % (Auto) 0.9 Neut # (Auto) 7.8 H Lymph # (Auto) 1.8 [place] # (Auto) 0.7 Eos # (Auto) 0.4 Baso # (Auto) 0.1 Sodium Potassium Chloride Carbon Dioxide Anion Gap BUN Creatinine Est GFR ( Amer) Est GFR (Non-Af Amer) POC Glucose (mg/dL) 220 H Random Glucose Calcium Phosphorus Magnesium Total Bilirubin AST ALT Alkaline Phosphatase Total Protein Albumin Globulin Albumin/Globulin Ratio Vancomycin Trough 20.8 H 11/23/17 05:49 WBC RBC Hgb Hct MCV MCH MCHC RDW Plt Count MPV Neut % (Auto) Lymph % (Auto) [place] % (Auto) Eos % (Auto) Baso % (Auto) Neut # (Auto) Lymph # (Auto) [place] # (Auto) Eos # (Auto) Baso # (Auto) Sodium 161 H* Potassium 3.7 Chloride 121 H Carbon Dioxide 28 Anion Gap 16 BUN 40 H Creatinine 0.9 Est GFR ( Amer) > 60 Est GFR (Non-Af Amer) 59 POC Glucose (mg/dL) Random Glucose 216 H Calcium 10.1 Phosphorus 3.6 Magnesium 2.6 H Total Bilirubin 0.5 AST 17 ALT 23 Alkaline Phosphatase 56 Total Protein 6.4 Albumin 3.1 L Globulin 3.3 Albumin/Globulin Ratio 0.9 L Vancomycin Trough Fingerstick Blood Sugar Results: 255 Assessment/Plan - Assessment and Plan (Free Text) Assessment: This is an 87 year old female with PMHx achalasia, DM, CAD, COPD, osteoarthritis who presented from the care home for altered mental status and shortness of breath. Patient intubated and sedated. Patient being treated for MSSA pneumonia and Klebsiella PEG site infection. Patient has failed multiple weaning trials. Since she keeps failing weaning trials, tracheostomy done on 11/21/17. PICC line placed today and central line was removed. Primary is working on sending the patient to LTACH. Neuro Intubated and now off of sedation Cardio Assessments: Labile blood pressure and heart rate, History of CAD Lopressor 50 mg PO BID Isosorbide Mononitrate 20 mg PO daily Verapamil 2.5 mg IV Q4 prn elevated HR Pulm Assessment: MSSA pneumonia, ventilator dependent respiratory failure, History of COPD Vented Continually fails weaning trials Solumedrol 20 mg IV daily Duoneb Q6H Trach placed on 11/21/17 GI Tube feeds at goal rate Endocrine Assessment: DM Regular ISS Q6H Accuchecks Q6H Lantus 15 units SC HS Renal Good urine output Free water 250 cc Q4H Infectious Diseases Assessments: MSSA pneumonia and Klebsiella PEG site infection Vancomycin 1 gm Q24H Fluconazole IV daily Bactroban for PEG site excoriations Nystatin topical Reculture of PEG site re-grew Klebsiella. ID ordered for 5 doses of Gentamicin 80 mg IV Q24H Prophylaxis Heparin SC Q8 Protonix 40 mg suspension PEG daily Per surgery, no need for intervention for PEG site leak--secure flange close to skin Discussed with Dr. Josiah Dennis <Srinath Dennis - Last Filed: 11/24/17 17:05> CCU Objective - Patient Studies Lab Studies: Microbiology Studies 11/19/17 22:00 Blood Culture - Preliminary Blood-Venous NO GROWTH AFTER 4 DAYS 11/19/17 21:30 Blood Culture - Preliminary Blood-Venous NO GROWTH AFTER 4 DAYS Lab Studies 11/23/17 Range/Units 17:11 POC Glucose (mg/dL) 248 H (65-110) mg/dL Laboratory Results - last 24 hr 11/23/17 17:11 POC Glucose (mg/dL) 248 H Assessment/Plan - Assessment and Plan (Free Text) Assessment: Patient seen and examined at bedside with above resident. [facility] - Date & Time Date: 11/23/17 Time: 17:05
--- NOTE | 2017-11-23 11:29 | RAD ---
HISTORY: verify right PICC COMPARISON: 11/21/2017 FINDINGS: LUNGS: No active pulmonary disease. PLEURA: No significant pleural effusion identified, no pneumothorax apparent. CARDIOVASCULAR: Normal heart size. CABG. Sternotomy wires. Tracheostomy tube. Permanent pacemaker. Right IJ multi lumen central venous catheter, unchanged. Right PICC catheter, new since prior. PICC catheter appears to terminate in the region of the superior vena cava. Evaluation somewhat limited by superimposition of internal jugular central venous catheter. OSSEOUS STRUCTURES: No significant abnormalities. VISUALIZED UPPER ABDOMEN: Normal. OTHER FINDINGS: None. IMPRESSION: New right PICC catheter. Otherwise no change.
[2017-11-23 19:55] VITALS: BP 151/63; PULSE 99; RESP 14; TEMP 98.7; O2SAT 99
== END 2017-11-23 19:54 | DRG 4 ==
LOC: C.ER 20:43 → C.9E 23:11 → C.6T 23:49 → C.9I 11-10 07:50
PROVIDERS: ADMIT Internal Medicine; ATTEND Internal Medicine
PROC: 5A1955Z Respiratory Ventilation, Greater than 96 Consecutive Hours (ICD-10-PCS; 2017-11-09)
PROC: 0BH17EZ Insertion of Endotracheal Airway into Trachea, Via Natural or Artificial Opening (ICD-10-PCS; 2017-11-09)
PROC: 0BJ08ZZ Inspection of Tracheobronchial Tree, Via Natural or Artificial Opening Endoscopic (ICD-10-PCS; 2017-11-21)
PROC: 02HV33Z Insertion of Infusion Device into Superior Vena Cava, Percutaneous Approach (ICD-10-PCS; 2017-11-21)
PROC: 0B113F4 Bypass Trachea to Cutaneous with Tracheostomy Device, Percutaneous Approach (ICD-10-PCS; principal; 2017-11-21 11:15)
DX: A41.02 Sepsis due to Methicillin resistant Staphylococcus aureus (principal); J15.0 Pneumonia due to Klebsiella pneumoniae; J15.211 Pneumonia due to Methicillin susceptible Staphylococcus aureus; J96.01 Acute respiratory failure with hypoxia; J44.0 Chronic obstructive pulmonary disease with (acute) lower respiratory infection; J44.1 Chronic obstructive pulmonary disease with (acute) exacerbation; K94.22 Gastrostomy infection; E87.0 Hyperosmolality and hypernatremia; E87.3 Alkalosis; Z99.11 Dependence on respirator [ventilator] status; Z68.1 Body mass index [BMI] 19.9 or less, adult; K22.0 Achalasia of cardia; I25.10 Atherosclerotic heart disease of native coronary artery without angina pectoris; I11.0 Hypertensive heart disease with heart failure; I50.9 Heart failure, unspecified; I49.9 Cardiac arrhythmia, unspecified; K21.9 Gastro-esophageal reflux disease without esophagitis; Z95.0 Presence of cardiac pacemaker; Z95.1 Presence of aortocoronary bypass graft; Z95.5 Presence of coronary angioplasty implant and graft; E78.5 Hyperlipidemia, unspecified; E83.52 Hypercalcemia; L89.329 Pressure ulcer of left buttock, unspecified stage; D63.8 Anemia in other chronic diseases classified elsewhere; E11.65 Type 2 diabetes mellitus with hyperglycemia; Z79.4 Long term (current) use of insulin; M06.9 Rheumatoid arthritis, unspecified

== ENCOUNTER 2018-03-11 18:39 | Inpatient (IN) | payer MEDICARE ==
[2018-03-11 18:53] VITALS: BMI 19.0
[2018-03-11] MEDS ORDERED: Sodium Chloride 0.9% 1,000 ML IV ONE ×2 (19:24→21:41)
--- NOTE | 2018-03-11 19:25 | C.PDOC ---
History Of Present Illness 87 y/o female sent from [facility] for high blood sugar, last received 14 units of insulin at 5pm. Patient's blood sugar level in the emergency department was 454. Denies fever, chills, nausea, or vomiting. Time Seen by Provider: 03/11/18 19:24 Chief Complaint (Nursing): High Blood Sugar History Per: Patient History/Exam Limitations: no limitations Onset/Duration Of Symptoms: Hrs Current Symptoms Are (Timing): Still Present Severity: Moderate Pain Scale Rating Of: 4 Current Diabetic Medications: Insulin Causative (Exacerbating) Factor(s): Other (Not known) Associated Infectious Symptoms: denies: Nausea, Vomiting, Other (Fever, chills) Treatment Prior To Provider Evaluation: Other (insulin) Response To Treatment: Other (fair response) Recent travel outside of the [place]: No Additional History Per: Long Term Past Medical History Reviewed: Historical Data, Nursing Documentation, Vital Signs Vital Signs: Last Vital Signs Temp 98.3 F 03/11/18 18:53 Pulse 114 H 03/11/18 18:53 Resp 30 H 03/11/18 18:53 BP 109/70 03/11/18 18:53 Pulse Ox 96 03/11/18 21:45 - Medical History PMH: Anxiety, Arthritis, Bronchitis, CAD, Cardia Arrhythmia, CHF, COPD, Diabetes , GERD (esophageal stricture), HTN, Hypercholesterolemia, Osteoporosis, Pneumonia, Rheumatoid Arthritis Denies: Hepatitis, HIV, Chronic Kidney Disease, Seizures, Sexually Transmitted Disease Surgical History: CABG (12/16/1991), Carotid Endarterectomy (06/13/05), Coronary Stent, Pacemaker - [facility] Procedures BYPASS TRACHEA TO CUTANEOUS WITH TRACH DEV, PERC APPROACH (11/09/17) CHANGE OTHER DEVICE IN ABDOMINAL WALL, EXTERNAL APPROACH (08/03/15) CONTR CEREBR ARTERIOGRAM (06/13/05) CONTRAST AORTOGRAM (06/13/05) CONTRAST ARTERIOGRAM NEC (05/23/12) CORONAR ARTERIOGR-2 CATH (05/23/12) ENDOSC POLYPECTOMY OF LG INTEST (06/28/14) ENTERAL INFUSION OF CONCENTRATED NUT. SUBSTANCES (10/01/14) HEAD & NECK ENDARTER NEC (06/13/05) INJECT ANTICOAGULANT (06/13/05) INSERT PACE, SINGL HAYLEY IN CHEST SUBCU/FASCIA, OPEN (03/05/16) INSERTION OF ENDOTRACHEAL AIRWAY INTO TRACHEA, VIA OPENING (11/09/17) INSERTION OF INFUSION DEV INTO SUP VENA CAVA, PERC APPROACH (11/09/17) INSERTION OF ONE VASCULAR STENT (05/23/12) INSERTION OF PACEMAKER LEAD INTO R VENTRICLE, PERC APPROACH (03/05/16) INSPECTION OF TRACHEOBRONCHIAL TREE, ENDO (11/09/17) INSRT OF DRUG-ELUTING CORON ARTERY STENTS(S) (05/23/12) INTRODUCTION OF NUTRITIONAL INTO UP GI, VIA OPENING (03/05/16) INTRODUCTION OF VASOPRESSOR INTO CENTRAL VEIN, PERC APPROACH (03/05/16) LEFT HEART CARDIAC CATH (05/23/12) LT HEART ANGIOCARDIOGRAM (05/23/12) MEASUREMENT OF CARDIAC PACEMAKER, EXTERNAL APPROACH (01/27/17) PACKED CELL TRANSFUSION (06/28/14) PERCUTANEOUS TRANSLUMINAL CORONARY ANGIOPLASTY [PTCA] (05/23/12) PERCUTANEOUS [ENDOSCOPIC] GASTROSTOMY [PEG] (10/01/14) PERFORMANCE OF CARDIAC PACING, CONTINUOUS (03/05/16) PROCEDURE ON SINGLE VESSEL (05/23/12) REPLACE GASTROSTOMY TUBE (02/09/15) RESPIRATORY VENTILATION, 24-96 CONSECUTIVE HOURS (03/05/16) RESPIRATORY VENTILATION, GREATER THAN 96 CONSECUTIVE HOURS (11/09/17) Family History: States: No Known Family Hx - Social History Hx Tobacco Use: No Hx Alcohol Use: No Hx Substance Use: No - Immunization History Hx Tetanus Toxoid Vaccination: No Hx Influenza Vaccination: No Hx Pneumococcal Vaccination: No Review Of Systems Constitutional: Negative for: Fever, Chills Eyes: Negative for: Vision Change ENT: Negative for: Throat Pain Cardiovascular: Negative for: Chest Pain, Palpitations Respiratory: Negative for: Cough, Shortness of Breath Gastrointestinal: Negative for: Nausea, Vomiting, Diarrhea Genitourinary: Negative for: Dysuria Musculoskeletal: Negative for: Back Pain Skin: Negative for: Rash Neurological: Negative for: Weakness, Numbness Psych: Negative for: Anxiety Physical Exam - Physical Exam Appears: Non-toxic Skin: Warm, Dry Head: Normacephalic Eye(s): bilateral: Normal Inspection Oral Mucosa: Dry Teeth: Edentulous Neck: Trachea Midline, Supple, Other (Tracheostomy scar) Chest: No Tenderness, Other (CABG scar; pacemaker left chest) Cardiovascular: Rhythm Regular Respiratory: No Rales, No Rhonchi, No Wheezing Gastrointestinal/Abdominal: Soft, No Tenderness, No Distention, No Guarding, Other (peg in place. Some coffe ground around the peg site) Rectal: No Heme Positive, Maroon Stool, No Hemorrhoids Back: No CVA Tenderness Extremity: Normal ROM Extremity: Bilateral: Atraumatic, Normal Color And Temperature, Normal ROM Pulses: Left Dorsalis Pedis: Normal, Right Dorsalis Pedis: Normal Neurological/Psych: Oriented x3 Gait: Unable To Assess ED Course And Treatment - Laboratory Results Result Diagrams: 03/11/18 19:30 03/11/18 19:30 ECG: Interpreted By Me, Viewed By Me ECG Rhythm: Sinus Rhythm (109), R BBB, Nonspecific Changes (ischemic lat changes ) O2 Sat by Pulse Oximetry: 96 (RA) Pulse Ox Interpretation: Normal - Radiology CXR: Interpreted by Me, Viewed By Me Progress Note: Blood works, ECG, and chest x-ray ordered. Novolin, protonix, IV fluids, and vancomycin administered. Disposition Discussed With : Rick Dennis Comment: accepted the pt on his service and took over the care at 10:08PM Doctor Will See Patient In The: Hospital Counseled Patient/Family Regarding: Studies Performed, Diagnosis - Disposition Disposition: HOSPITALIZED Disposition Time: 19:25 Condition: FAIR Forms: [facility] (Thai) - POA Present On Arrival: Poor Glycemic Control - Clinical Impression Clinical Impression: Uncontrolled diabetes mellitus, Gastrostomy tube in place, Hyperglycemia, Upper GI bleed - Scribe Statement The provider has reviewed the documentation as recorded by the Erin Rose Provider Attestation: All medical record entries made by the [place]ibsuzy were at my direction and personally dictated by me. I have reviewed the chart and agree that the record accurately reflects my personal performance of the history, physical exam, medical decision making, and the department course for this patient. I have also personally directed, reviewed, and agree with the discharge instructions and disposition. Decision To Admit - Pt Status Changed To: Hospital Disposition Of: Inpatient - Admit Certification Admit to Inpatient:: After my assessment, the patient will require hospitalization for at least two midnights. This is because of the severity of symptoms shown, intensity of services needed, and/or the medical risk in this patient being treated as an outpatient. - InPatient: Physician Admission Certification: I certify that this patient requires 2 or more midnights of care for the following reason:: After my assessment, the patient will require hospitalization for at least two midnights. This is because of the severity of symptoms shown, intensity of services needed, and/or the medical risk in this patient being treated as an outpatient. - . Bed Request Type: Telemetry Admitting Physician: Rick Dennis Patient Diagnosis: Uncontrolled diabetes mellitus, Gastrostomy tube in place, Hyperglycemia, Upper GI bleed
[2018-03-11 19:35] LABS: BASO # 0.2 K/uL (0.0-0.2); BASO % 1.4 % (0.0-2.0); EOS # 0.1 K/uL (0.0-0.7); EOS % 0.4 % (0.0-4.0); LYMPH # 2.1 K/uL (1.0-4.3); LYMPH % 13.2 % (20.0-40.0); MEAN CORPUSCULAR HEMOGLOBIN 31.6 pg (27.0-31.0); MEAN CORPUSCULAR HGB CONC 33.4 g/dL (33.0-37.0); MEAN PLATELET VOLUME 8.1 fL (7.2-11.7); MONO # 0.8 K/uL (0.0-0.8); MONO % 5.3 % (0.0-10.0); NEUT # 12.8 K/uL (1.8-7.0); NEUT % 79.7 % (50.0-75.0); NRBC % 0.1 % (0.0-2.0); RBC 4.66 Mil/uL (3.80-5.20); RED CELL DISTRIBUTION WIDTH 16.8 % (11.5-14.5)
[2018-03-11 19:39] LABS: HEMOGLOBIN 14.7 g/dL (11.0-16.0); MEAN CELL VOLUME 94.5 fL (81.0-99.0); WHITE BLOOD COUNT 16.1 K/uL (4.8-10.8)
[2018-03-11] MEDS ORDERED: Sodium Chloride 0.9% 1,000 ML ONE (19:40)
[2018-03-11 19:43] LABS: VENOUS BLOOD GAS BASE EXCESS 1.2 mmol/L (0.0-2.0); VENOUS BLOOD GAS PCO2 41 mmHg (40-60); VENOUS BLOOD GAS PO2 50 mm/Hg (30-55); VENOUS BLOOD PH 7.41 (7.32-7.43)
[2018-03-11 20:05] LABS: ALB/GLOB RATIO 0.9 (1.0-2.1); ALBUMIN 4.7 g/dL (3.5-5.0); ALT/SGPT 13 U/L (9-52); AST/SGOT 38 U/L (14-36); BLOOD UREA NITROGEN 54 mg/dL (7-17); CALCIUM 11.8 mg/dl (8.6-10.4); GFR NON-AFRICAN AMERICAN 59; LIPASE 139 U/L (23-300)
[2018-03-11] MEDS ORDERED: (Novolin R) Insulin Human Regular 100 units/ml vial IV ONE (20:07)
[2018-03-11] MEDS ORDERED: (Novolin R) Insulin Human Regular 100 units/ml vial ONE (20:35)
[2018-03-11] MEDS ORDERED: Vancomycin 1 GM 1 GM/250 ML BAG IVPB SCH (21:30)
[2018-03-11] MEDS ORDERED: Vancomycin 1 GM 1 GM/250 ML BAG IVPB ONE (21:45)
[2018-03-11] MEDS ORDERED: Pantoprazole 80 MG in Sodium Chloride 0.9% 100 ML IVP SCH (22:15)
[2018-03-11 22:45] LABS: URINE BACTERIA RARE (<OCC); URINE BILIRUBIN NEGATIVE (NEGATIVE); URINE BLOOD NEGATIVE (NEGATIVE); URINE CLARITY Hazy (Clear); URINE COLOR Yellow (YELLOW); URINE GLUCOSE (UA) 3+ mg/dL (Normal); URINE HYALINE CAST >20 /lpf (0-2); URINE LEUKOCYTE ESTERASE NEG Leu/uL (Negative); URINE PROTEIN 2+ mg/dL (NEGATIVE); URINE UROBILINOGEN NORMAL mg/dL (0.2-1.0)
[2018-03-12] MEDS ORDERED: Azithromycin 500mg/250ML NS 500 MG/250 ML BAG IVPB SCH (00:45)
--- NOTE | 2018-03-12 07:29 | CP.PCM.PN ---
Subjective - Date & Time of Evaluation Date of Evaluation: 03/12/18 Time of Evaluation: 07:29 - Subjective Subjective: PGY2 Medicine Note for Dr. Trent Dennis Patient seen and examined this morning at bedside. Patient was admitted overnight for hyperglycemia, GI bleed (coffee ground emesis around peg site) and sepsis. Patient is feeling much this morning. She is currently receiving a breathing treatment and states that her breathing is greatly improved. She has no complaints stating she feels well. She has no complaints at this time. Denies fevers, chills, nausea, vomiting, diarrhea, constipation, chest pain, SOB , abdominal pain, dysuria, numbness or tingling. Objective - Vital Signs/Intake and Output Vital Signs (last 24 hours): Temp Pulse Resp BP Pulse Ox 98.3 F 100 H 20 126/68 99 03/12/18 04:15 03/12/18 04:15 03/12/18 04:15 03/12/18 04:15 03/12/18 04:15 Intake and Output: 03/12/18 03/12/18 06:59 18:59 Output Total 200 Balance -200 - Medications Medications: Current Medications Acetaminophen (Tylenol 650 Mg Supp) 650 mg MI Q6 PRN PRN Reason: Fever >100.4 F Albuterol/Ipratropium (Duoneb 3 Mg/0.5 Mg (3 Ml) Ud) 3 ml INH RQ6 JUDY Heparin Sodium (Porcine) (Heparin) 5,000 units SC Q8 JUDY Last Admin: 03/12/18 06:32 Dose: 5,000 units Pantoprazole Sodium 80 mg/ (Sodium Chloride) 100 mls @ 10 mls/hr IVP .Q10H JUDY PRN Reason: 8 MG/HR Last Admin: 03/12/18 02:53 Dose: 10 mls/hr Azithromycin (Zithromax 500mg In Ns Addvantage) 500 mg in 250 mls @ 167 mls/hr IVPB Q24H JUDY PRN Reason: Protocol Last Admin: 03/12/18 02:54 Dose: 167 mls/hr Insulin Aspart (Novolog) 0 unit SC QID JUDY PRN Reason: Protocol Insulin Glargine (Lantus) 15 unit SC HS JUDY Isosorbide Mononitrate (Ismo) 20 mg PO DAILY JUDY Meclizine HCl (Antivert) 12.5 mg PO Q12 PRN PRN Reason: vertigo Metoprolol Tartrate (Lopressor) 50 mg PO BID JUDY Pantoprazole Sodium (Protonix Inj) 40 mg IVP DAILY JUDY Pneumococcal Polyvalent Vaccine (Pneumovax 23 Vaccine) 0.5 ml IM .ONCE ONE Stop: 03/14/18 11:01 - Labs Labs: 03/11/18 19:30 03/11/18 19:30 - Constitutional Appears: Non-toxic, No Acute Distress - Head Exam Head Exam: ATRAUMATIC, NORMOCEPHALIC - Eye Exam Eye Exam: Normal appearance - ENT Exam ENT Exam: Mucous Membranes Moist - Neck Exam Neck Exam: Full ROM. absent: Lymphadenopathy, Tenderness Additional comments: Tracheostomy scar - Respiratory Exam Respiratory Exam: Clear to Ausculation Bilateral, NORMAL BREATHING PATTERN. absent: Accessory Muscle Use, Rales, Rhonchi, Wheezes, Respiratory Distress - Cardiovascular Exam Cardiovascular Exam: REGULAR RHYTHM, +S1, +S2 - GI/Abdominal Exam GI & Abdominal Exam: Soft, Normal Bowel Sounds. absent: Distended, Firm, Guarding, Rigid, Tenderness Additional comments: PEG in place, no coffee ground emesis noted. - Extremities Exam Extremities Exam: absent: Calf Tenderness, Pedal Edema Additional comments: 3rd and 4th digit on right hand, nails broken and distal tips erythematous - Neurological Exam Neurological Exam: Alert, Awake, CN II-XII Intact, Oriented x3 - Psychiatric Exam Psychiatric exam: Normal Affect, Normal Mood - Skin Skin Exam: Dry, Warm Assessment and Plan - Assessment and Plan (Free Text) Plan: Sepsis afebrile CXR: no acute disease Blood Cultures pending Urine culture pending UA: protein 2+, Glucose 3+ VBG: pH 7.41, lactate 7.8 repeat lactic acid 4.1 Azithromycin 500mg IVPB q24h Duonebs 3mL INH q6h Tylenol 65mg MI q6h prn Hyperglycemia/DM upon admission 454 - improving Regular ISS-low dose Lantus 15units SC HS Accuchecks ACHS GI Bleed (resolved) GI consulted, Dr. Dumas * No plans for endoscopic evaluation at this time * Continue tube feeds * Continue PPI therapy * No indication of GI bleed at this time Vertigo Resumed home Meclizine 12.5mg PEG q12h prn Dehydration Given her previous medical history, started Half NS 75 cc/hr History of CAD Resumed home Metoprolol Tart 50mg PEG BID Resumed home Isosorbide Mononitrate 20 mg PEG daily History of Achalasia Resumed home Jevity tube feedings 6 per day Oral medications given through PEG tube Prophylactic Care Protonix 40mg IVP daily Heparin 5,000 units SC q8h All medical management per Dr. Trent Dennis
[2018-03-12] MEDS: Albuterol-Ipratrop 3 mg / 0.5 (3 ml) UD INH SCH ×3 (07:36→20:20)
[2018-03-12 07:37] LABS: BASO # 0.1 K/uL (0.0-0.2); BASO % 0.6 % (0.0-2.0); EOS # 0.3 K/uL (0.0-0.7); EOS % 2.3 % (0.0-4.0); LYMPH # 2.3 K/uL (1.0-4.3); LYMPH % 18.1 % (20.0-40.0); MEAN CELL VOLUME 92.9 fL (81.0-99.0); MEAN CORPUSCULAR HEMOGLOBIN 30.8 pg (27.0-31.0); MEAN CORPUSCULAR HGB CONC 33.2 g/dL (33.0-37.0); MEAN PLATELET VOLUME 8.3 fL (7.2-11.7); MONO # 1.2 K/uL (0.0-0.8); MONO % 9.1 % (0.0-10.0); NEUT % 69.9 % (50.0-75.0); NRBC % 0.1 % (0.0-2.0); RBC 3.88 Mil/uL (3.80-5.20); RED CELL DISTRIBUTION WIDTH 16.5 % (11.5-14.5); WHITE BLOOD COUNT 12.9 K/uL (4.8-10.8)
[2018-03-12] MEDS: (Novolog) Insulin Aspart, Recombinant 100 u/ml 10 ml vial SC SCH ×4 (08:11→21:34)
--- NOTE | 2018-03-12 09:29 | CP.PCM.CON ---
<Jackson Rodriguez - Last Filed: 03/12/18 09:26> History of Present Illness - History of Present Illness History of Present Illness: PGY-4 GI Fellow Initial Consult Note Pt is a 82 yo WF with h/o DM, CAD, COPD, Vertigo, Diverticulosis, Achalasia s/p PEG who was sent in by skilled nursing for elevated blood sugars, ultimately admitted for that and concerns for sepsis and UGI Bleed after report of 1x coffee ground emesis at skilled nursing. GI consulted for concerns of GI Bleed. The patient unable to provide much history due to possible dementia (oriented x 2) and hard of hearing; therefore the following information mostly obtained from chart review and hospital staff. What little that this author was able to communicate with patient was that she states that she is doing OK at the moment without any complaints. When asked about hematemesis, she denied any nausea or vomiting. There seems to be some dried blood on her lips which she attributes to biting her tongue due to nerves. She also reports that she believes her bowel movements have been brown lately. Nursing later confirmed brown BMs overnight. Per chart review, a path report on 06/29/14 documented a CSPY with diverticulosis with 1 hyperplastic polyp. Unable to obtain full ROS due to clinical condition MHx: Achalasia, Diverticulosis, 1 hyperplastic polyp, DM, vertigo, CAD, Arrhythmia, COPD, Osteoarthritis SHx: CABG, pacemaker insertion, endocardectomy, coronary stenting, PEG tube placement Meds: Reviewed in [facility] Social Hx: 40 pack years, denies alcohol, retired Family Hx: Mother from liver disease Allergies: Extensive list including sublingual nitroglycerin, cozaar, penicillin , diphenylhydramine, ciprofloxacin, azithromycin, fish oil, metronidazole, sulfamethoxazole, trimethoprim, zolpidem, clopidogrel bisulfate Past Patient History - Infectious Disease Hx of Infectious Diseases: None - Past Medical History & Family History Past Medical History?: Yes - Past Social History Smoking Status: Never Smoked - CARDIAC Hx Cardia Arrhythmia: Yes Hx Congestive Heart Failure: Yes Hx Hypercholesterolemia: Yes Hx Hypertension: Yes Hx Pacemaker: Yes - PULMONARY Hx Bronchitis: Yes Hx Chronic Obstructive Pulmonary Disease (COPD): Yes Hx Pneumonia: Yes Other/Comment: Tracheostomy Scar. - NEUROLOGICAL Hx Seizures: No - HEENT Hx HEENT Problems: Yes Hx Cataracts: Yes (2000 Rt.Eye,2010Left Eye) - RENAL Hx Chronic Kidney Disease: No - ENDOCRINE/METABOLIC Hx Diabetes Mellitus Type 2: Yes - HEMATOLOGICAL/ONCOLOGICAL Hx Human Immunodeficiency Virus (HIV): No - INTEGUMENTARY Hx Dermatological Problems: No - MUSCULOSKELETAL/RHEUMATOLOGICAL Hx Falls: Yes - GASTROINTESTINAL Hx Gastrointestinal Disorders: Yes Hx Colitis: Yes Hx Gastroesophageal Reflux: Yes HX Swallowing Problems: Yes (Achalasia. 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) Hx Coronary Stent: Yes - ANESTHESIA Hx Anesthesia: Yes Hx Anesthesia Reactions: No Hx Malignant Hyperthermia: No Meds Allergies/Adverse Reactions: Allergies Allergy/AdvReac Type Severity Reaction Status Date / Time iodine Allergy REDNESS Verified 03/11/18 18:52 Penicillins Allergy ANGIOEDEMA Verified 03/11/18 18:52 clopidogrel [From Plavix] AdvReac HEADACHE Verified 03/11/18 18:52 losartan [From Cozaar] AdvReac DIZZINESS Verified 03/11/18 18:52 nitroglycerin AdvReac DIZZINESS Verified 03/11/18 18:52 - Medications Medications: Current Medications Acetaminophen (Tylenol 650 Mg Supp) 650 mg SC Q6 PRN PRN Reason: Fever >100.4 F Albuterol/Ipratropium (Duoneb 3 Mg/0.5 Mg (3 Ml) Ud) 3 ml INH RQ6 JUDY Last Admin: 03/12/18 07:36 Dose: 3 ml Heparin Sodium (Porcine) (Heparin) 5,000 units SC Q8 JUDY Last Admin: 03/12/18 06:32 Dose: 5,000 units Azithromycin (Zithromax 500mg In Ns Addvantage) 500 mg in 250 mls @ 167 mls/hr IVPB Q24H JUDY PRN Reason: Protocol Last Admin: 03/12/18 02:54 Dose: 167 mls/hr Insulin Aspart (Novolog) 0 unit SC ACHS JUDY PRN Reason: Protocol Last Admin: 03/12/18 08:11 Dose: 6 units Insulin Glargine (Lantus) 15 unit SC HS [facility] Isosorbide Mononitrate (Ismo) 20 mg PO DAILY JUDY Meclizine HCl (Antivert) 12.5 mg PO Q12 PRN PRN Reason: vertigo Metoprolol Tartrate (Lopressor) 50 mg PO BID [facility] Pantoprazole Sodium (Protonix Inj) 40 mg IVP DAILY [facility] Pneumococcal Polyvalent Vaccine (Pneumovax 23 Vaccine) 0.5 ml IM .ONCE ONE Stop: 03/14/18 11:01 Physical Exam - Constitutional Appears: No Acute Distress, Cachectic, Chronically Ill - Head Exam Head Exam: ATRAUMATIC, NORMAL INSPECTION - Eye Exam Eye Exam: EOMI. absent: Conjunctival injection, Scleral icterus - ENT Exam ENT Exam: Mucous Membranes Dry Additional comments: dried dark blood on lips - Respiratory Exam Respiratory Exam: Clear to Auscultation Bilateral, NORMAL BREATHING PATTERN. absent: Accessory Muscle Use, Wheezes - Cardiovascular Exam Cardiovascular Exam: REGULAR RHYTHM, RRR. absent: Bradycardia, Tachycardia - GI/Abdominal Exam GI & Abdominal Exam: Normal Bowel Sounds, Soft. absent: Bruit, Diminished Bowel Sounds, Distended, Firm, Guarding, Hernia, Hyperactive Bowel Sounds, Hypoactive Bowel Sounds, Mass, Organomegaly, Pulsatile Mass, Rebound, Rigid, Tenderness Additional comments: PEG in place in RUQ with TF running - Rectal Exam Rectal Exam: NORMAL INSPECTION Additional comments: Light brown stool on SHLOMO - Extremities Exam Extremities exam: Positive for: normal inspection. Negative for: pedal edema - Neurological Exam Neurological exam: Alert Additional comments: Ox2 - Psychiatric Exam Psychiatric exam: Normal Affect, Normal Mood - Skin Skin Exam: Normal Color, Warm Results - Vital Signs Recent Vital Signs: Last Vital Signs Temp 97.9 F 03/12/18 07:00 Pulse 114 H 03/12/18 08:00 Resp 20 03/12/18 07:00 BP 149/83 03/12/18 07:00 Pulse Ox 94 L 03/12/18 07:00 - Labs Result Diagrams: 03/12/18 07:09 03/11/18 19:30 Labs: Laboratory Results - last 24 hr 03/11/18 03/11/18 03/11/18 18:49 19:30 19:30 WBC 16.1 H D RBC 4.66 Hgb 14.7 D Hct 44.1 MCV 94.5 D MCH 31.6 H MCHC 33.4 RDW 16.8 H Plt Count 411 H MPV 8.1 Neut % (Auto) 79.7 H Lymph % (Auto) 13.2 L [place] % (Auto) 5.3 Eos % (Auto) 0.4 Baso % (Auto) 1.4 Neut # (Auto) 12.8 H Lymph # (Auto) 2.1 [place] # (Auto) 0.8 Eos # (Auto) 0.1 Baso # (Auto) 0.2 pO2 VBG pH VBG pCO2 VBG HCO3 VBG Total CO2 VBG O2 Sat (Calc) VBG Base Excess VBG Potassium Glucose Lactate Crit Value Called To Crit Value Called By Crit Value Read Back Blood Gas Notified Time Sodium 140 Potassium 4.8 Chloride 98 Carbon Dioxide 18 L Anion Gap 29 H BUN 54 H Creatinine 0.9 Est GFR ( Amer) > 60 Est GFR (Non-Af Amer) 59 POC Glucose (mg/dL) 454 H* Random Glucose 557 H* D Lactic Acid Calcium 11.8 H Total Bilirubin 1.0 AST 38 H D ALT 13 Alkaline Phosphatase 105 Total Protein 9.6 H Albumin 4.7 Globulin 4.9 H Albumin/Globulin Ratio 0.9 L Lipase 139 Venous Blood Potassium Urine Color Urine Clarity Urine pH Ur Specific [place] Urine Protein Urine Glucose (UA) Urine Ketones Urine Blood Urine Nitrate Urine Bilirubin Urine Urobilinogen Ur Leukocyte Esterase Urine WBC (Auto) Urine RBC (Auto) Urine Bacteria Hyaline Casts Stool Occult Blood 03/11/18 03/11/18 03/11/18 19:36 20:45 21:14 WBC RBC Hgb Hct MCV MCH MCHC RDW Plt Count MPV Neut % (Auto) Lymph % (Auto) Isabel[place] % (Auto) Eos % (Auto) Baso % (Auto) Neut # (Auto) Lymph # (Auto) [place] # (Auto) Eos # (Auto) Baso # (Auto) pO2 50 VBG pH 7.41 VBG pCO2 41 VBG HCO3 25.5 VBG Total CO2 27.3 VBG O2 Sat (Calc) 90.1 H VBG Base Excess 1.2 VBG Potassium 4.7 Glucose 582 H* D Lactate 7.8 H* Crit Value 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 , 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 Crit Value Called By Ban Crit Value Read Back Y Blood Gas Notified Time 1942 Sodium 144.0 Potassium Chloride 100.0 Carbon Dioxide Anion Gap BUN Creatinine Est GFR ( Amer) Est GFR (Non-Af Amer) POC Glucose (mg/dL) 330 H Random Glucose Lactic Acid Calcium Total Bilirubin AST ALT Alkaline Phosphatase Total Protein Albumin Globulin Albumin/Globulin Ratio Lipase Venous Blood Potassium 4.7 Urine Color Urine Clarity Urine pH Ur Specific [place] Urine Protein Urine Glucose (UA) Urine Ketones Urine Blood Urine Nitrate Urine Bilirubin Urine Urobilinogen Ur Leukocyte Esterase Urine WBC (Auto) Urine RBC (Auto) Urine Bacteria Hyaline Casts Stool Occult Blood Negative 03/11/18 03/12/18 03/12/18 22:19 00:12 06:31 WBC RBC Hgb Hct MCV MCH MCHC RDW Plt Count MPV Neut % (Auto) Lymph % (Auto) [place] % (Auto) Eos % (Auto) Baso % (Auto) Neut # (Auto) Lymph # (Auto) [place] # (Auto) Eos # (Auto) Baso # (Auto) pO2 VBG pH VBG pCO2 VBG HCO3 VBG Total CO2 VBG O2 Sat (Calc) VBG Base Excess VBG Potassium Glucose Lactate Crit Value Called To Crit Value Called By Crit Value Read Back Blood Gas Notified Time Sodium Potassium Chloride Carbon Dioxide Anion Gap BUN Creatinine Est GFR ( Amer) Est GFR (Non-Af Amer) POC Glucose (mg/dL) 280 H Random Glucose Lactic Acid 4.1 H* Calcium Total Bilirubin AST ALT Alkaline Phosphatase Total Protein Albumin Globulin Albumin/Globulin Ratio Lipase Venous Blood Potassium Urine Color Yellow Urine Clarity Hazy Urine pH 5.0 Ur Specific [place] 1.025 Urine Protein 2+ H Urine Glucose (UA) 3+ H Urine Ketones Negative Urine Blood Negative Urine Nitrate Negative Urine Bilirubin Negative Urine Urobilinogen Normal Ur Leukocyte Esterase Neg Urine WBC (Auto) 3 Urine RBC (Auto) < 1 Urine Bacteria Rare Hyaline Casts >20 H Stool Occult Blood 03/12/18 07:09 WBC 12.9 H RBC 3.88 Hgb 12.0 D Hct 36.0 MCV 92.9 MCH 30.8 MCHC 33.2 RDW 16.5 H Plt Count 295 D MPV 8.3 Neut % (Auto) 69.9 Lymph % (Auto) 18.1 L [place] % (Auto) 9.1 Eos % (Auto) 2.3 Baso % (Auto) 0.6 Neut # (Auto) 9.0 H Lymph # (Auto) 2.3 [place] # (Auto) 1.2 H Eos # (Auto) 0.3 Baso # (Auto) 0.1 pO2 VBG pH VBG pCO2 VBG HCO3 VBG Total CO2 VBG O2 Sat (Calc) VBG Base Excess VBG Potassium Glucose Lactate Crit Value Called To Crit Value Called By Crit Value Read Back Blood Gas Notified Time Sodium Potassium Chloride Carbon Dioxide Anion Gap BUN Creatinine Est GFR ( Amer) Est GFR (Non-Af Amer) POC Glucose (mg/dL) Random Glucose Lactic Acid Calcium Total Bilirubin AST ALT Alkaline Phosphatase Total Protein Albumin Globulin Albumin/Globulin Ratio Lipase Venous Blood Potassium Urine Color Urine Clarity Urine pH Ur Specific [place] Urine Protein Urine Glucose (UA) Urine Ketones Urine Blood Urine Nitrate Urine Bilirubin Urine Urobilinogen Ur Leukocyte Esterase Urine WBC (Auto) Urine RBC (Auto) Urine Bacteria Hyaline Casts Stool Occult Blood Assessment & Plan - Assessment and Plan (Free Text) Assessment: 87 yo WF with h/o Achalasia, Diverticulosis, DM, CAD sent in from skilled nursing for hyperglycemia with a reports of 1x episode coffee-ground emesis. # Upper GI Bleed: No signs of at this time. Perhaps a transient episode of hematemesis at [place] due to patient biting lips and tongue per patient report. Pt and nursing deny any hematemsis, melena nor hematochezia. Rectal with brown stool and occult negative. Hgb above last baseline. # H/o Diverticulosis # Achalasia s/p PEG Plan: - Cont PPI IV Daily - DCed PPI gtt - Cont tube feeds - No plans for endoscopic evaluation at this time Thank you for the consult. Pt seen and examined with Dr. Dumas. <Titus Dumas Y - Last Filed: 03/12/18 09:48> Meds - Medications Medications: Current Medications Acetaminophen (Tylenol 650 Mg Supp) 650 mg SC Q6 PRN PRN Reason: Fever >100.4 F Albuterol/Ipratropium (Duoneb 3 Mg/0.5 Mg (3 Ml) Ud) 3 ml INH RQ6 JUDY Last Admin: 03/12/18 07:36 Dose: 3 ml Heparin Sodium (Porcine) (Heparin) 5,000 units SC Q8 JUDY Last Admin: 03/12/18 06:32 Dose: 5,000 units Azithromycin (Zithromax 500mg In Ns Addvantage) 500 mg in 250 mls @ 167 mls/hr IVPB Q24H JUDY PRN Reason: Protocol Last Admin: 03/12/18 02:54 Dose: 167 mls/hr Insulin Aspart (Novolog) 0 unit SC ACHS JUDY PRN Reason: Protocol Last Admin: 03/12/18 08:11 Dose: 6 units Insulin Glargine (Lantus) 15 unit SC HS JUDY Isosorbide Mononitrate (Ismo) 20 mg PO DAILY JUDY Meclizine HCl (Antivert) 12.5 mg PO Q12 PRN PRN Reason: vertigo Metoprolol Tartrate (Lopressor) 50 mg PO BID JUDY Pantoprazole Sodium (Protonix Inj) 40 mg IVP DAILY JUDY Pneumococcal Polyvalent Vaccine (Pneumovax 23 Vaccine) 0.5 ml IM .ONCE ONE Stop: 03/14/18 11:01 Results - Vital Signs Recent Vital Signs: Last Vital Signs Temp 97.9 F 03/12/18 07:00 Pulse 114 H 03/12/18 08:00 Resp 20 03/12/18 07:00 BP 149/83 03/12/18 07:00 Pulse Ox 94 L 03/12/18 07:00 - Labs Result Diagrams: 03/12/18 07:09 03/11/18 19:30 Labs: Laboratory Results - last 24 hr 03/11/18 03/11/18 03/11/18 18:49 19:30 19:30 WBC 16.1 H D RBC 4.66 Hgb 14.7 D Hct 44.1 MCV 94.5 D MCH 31.6 H MCHC 33.4 RDW 16.8 H Plt Count 411 H MPV 8.1 Neut % (Auto) 79.7 H Lymph % (Auto) 13.2 L [place] % (Auto) 5.3 Eos % (Auto) 0.4 Baso % (Auto) 1.4 Neut # (Auto) 12.8 H Lymph # (Auto) 2.1 [place] # (Auto) 0.8 Eos # (Auto) 0.1 Baso # (Auto) 0.2 pO2 VBG pH VBG pCO2 VBG HCO3 VBG Total CO2 VBG O2 Sat (Calc) VBG Base Excess VBG Potassium Glucose Lactate Crit Value Called To Crit Value Called By Crit Value Read Back Blood Gas Notified Time Sodium 140 Potassium 4.8 Chloride 98 Carbon Dioxide 18 L Anion Gap 29 H BUN 54 H Creatinine 0.9 Est GFR ( Amer) > 60 Est GFR (Non-Af Amer) 59 POC Glucose (mg/dL) 454 H* Random Glucose 557 H* D Lactic Acid Calcium 11.8 H Total Bilirubin 1.0 AST 38 H D ALT 13 Alkaline Phosphatase 105 Total Protein 9.6 H Albumin 4.7 Globulin 4.9 H Albumin/Globulin Ratio 0.9 L Lipase 139 Venous Blood Potassium Urine Color Urine Clarity Urine pH Ur Specific [place] Urine Protein Urine Glucose (UA) Urine Ketones Urine Blood Urine Nitrate Urine Bilirubin Urine Urobilinogen Ur Leukocyte Esterase Urine WBC (Auto) Urine RBC (Auto) Urine Bacteria Hyaline Casts Stool Occult Blood 03/11/18 03/11/18 03/11/18 19:36 20:45 21:14 WBC RBC Hgb Hct MCV MCH MCHC RDW Plt Count MPV Neut % (Auto) Lymph % (Auto) [place] % (Auto) Eos % (Auto) Baso % (Auto) Neut # (Auto) Lymph # (Auto) [place] # (Auto) Eos # (Auto) Baso # (Auto) pO2 50 VBG pH 7.41 VBG pCO2 41 VBG HCO3 25.5 VBG Total CO2 27.3 VBG O2 Sat (Calc) 90.1 H VBG Base Excess 1.2 VBG Potassium 4.7 Glucose 582 H* D Lactate 7.8 H* Crit Value Called To Alondra marina rn er Crit Value Called By Ban Crit Value Read Back Y Blood Gas Notified Time 1942 Sodium 144.0 Potassium Chloride 100.0 Carbon Dioxide Anion Gap BUN Creatinine Est GFR ( Amer) Est GFR (Non-Af Amer) POC Glucose (mg/dL) 330 H Random Glucose Lactic Acid Calcium Total Bilirubin AST ALT Alkaline Phosphatase Total Protein Albumin Globulin Albumin/Globulin Ratio Lipase Venous Blood Potassium 4.7 Urine Color Urine Clarity Urine pH Ur Specific [place] Urine Protein Urine Glucose (UA) Urine Ketones Urine Blood Urine Nitrate Urine Bilirubin Urine Urobilinogen Ur Leukocyte Esterase Urine WBC (Auto) Urine RBC (Auto) Urine Bacteria Hyaline Casts Stool Occult Blood Negative 03/11/18 03/12/18 03/12/18 22:19 00:12 06:31 WBC RBC Hgb Hct MCV MCH MCHC RDW Plt Count MPV Neut % (Auto) Lymph % (Auto) [place] % (Auto) Eos % (Auto) Baso % (Auto) Neut # (Auto) Lymph # (Auto) [place] # (Auto) Eos # (Auto) Baso # (Auto) pO2 VBG pH VBG pCO2 VBG HCO3 VBG Total CO2 VBG O2 Sat (Calc) VBG Base Excess VBG Potassium Glucose Lactate Crit Value Called To Crit Value Called By Crit Value Read Back Blood Gas Notified Time Sodium Potassium Chloride Carbon Dioxide Anion Gap BUN Creatinine Est GFR ( Amer) Est GFR (Non-Af Amer) POC Glucose (mg/dL) 280 H Random Glucose Lactic Acid 4.1 H* Calcium Total Bilirubin AST ALT Alkaline Phosphatase Total Protein Albumin Globulin Albumin/Globulin Ratio Lipase Venous Blood Potassium Urine Color Yellow Urine Clarity Hazy Urine pH 5.0 Ur Specific [place] 1.025 Urine Protein 2+ H Urine Glucose (UA) 3+ H Urine Ketones Negative Urine Blood Negative Urine Nitrate Negative Urine Bilirubin Negative Urine Urobilinogen Normal Ur Leukocyte Esterase Neg Urine WBC (Auto) 3 Urine RBC (Auto) < 1 Urine Bacteria Rare Hyaline Casts >20 H Stool Occult Blood 03/12/18 07:09 WBC 12.9 H RBC 3.88 Hgb 12.0 D Hct 36.0 MCV 92.9 MCH 30.8 MCHC 33.2 RDW 16.5 H Plt Count 295 D MPV 8.3 Neut % (Auto) 69.9 Lymph % (Auto) 18.1 L [place] % (Auto) 9.1 Eos % (Auto) 2.3 Baso % (Auto) 0.6 Neut # (Auto) 9.0 H Lymph # (Auto) 2.3 [place] # (Auto) 1.2 H Eos # (Auto) 0.3 Baso # (Auto) 0.1 pO2 VBG pH VBG pCO2 VBG HCO3 VBG Total CO2 VBG O2 Sat (Calc) VBG Base Excess VBG Potassium Glucose Lactate Crit Value Called To Crit Value Called By Crit Value Read Back Blood Gas Notified Time Sodium Potassium Chloride Carbon Dioxide Anion Gap BUN Creatinine Est GFR ( Amer) Est GFR (Non-Af Amer) POC Glucose (mg/dL) Random Glucose Lactic Acid Calcium Total Bilirubin AST ALT Alkaline Phosphatase Total Protein Albumin Globulin Albumin/Globulin Ratio Lipase Venous Blood Potassium Urine Color Urine Clarity Urine pH Ur Specific [place] Urine Protein Urine Glucose (UA) Urine Ketones Urine Blood Urine Nitrate Urine Bilirubin Urine Urobilinogen Ur Leukocyte Esterase Urine WBC (Auto) Urine RBC (Auto) Urine Bacteria Hyaline Casts Stool Occult Blood Attending/Attestation - Attestation I have personally seen and examined this patient.: Yes I have fully participated in the care of the patient.: Yes I have reviewed all pertinent clinical information: Yes Notes (Text): 03/12/18 09:42 I have seen and examined patient with GI fellow. Agree with above documentation with the following additions. In brief, this is an 87 year old female with history of DM, COPD, CAD, achalasia s/p PEG, dementia who was sent from nursing facility for evaluation of hyperglycemia and episode of coffee ground emesis which happened yesterday. Patient is only partially able to participate in conversation due to underlying dementia. Additional information obtained via chart review, discussion with nursing staff and patient family members. She reports one episode of dark emesis yesterday but denies associated abdominal pain, fever/chills, weight loss, rectal bleeding, or change in bowel habits. She has been tolerating tube feeding without any difficulty and denies melena. She does report biting her tongue recently due to feeling nervous. She had a colonoscopy in 2013 which showed diverticulosis and hyperplastic polyp. Review of vitals from today shows tachycardia. DM - uncontrolled COPD CAD Achalasia s/p PEG Dementia Vomiting - resolved - Continue with tube feeding as tolerated - H/H stable, continue to monitor. Rectal exam performed today shows light brown stool without palpable lesions. - Continue with PPI therapy - Anti-emetic therapy PRN - Continue with antibiotic therapy, infectious workup as per medical team - Currently no planned GI intervention, will sign off case. Please reconsult as necessary, thank you.
--- NOTE | 2018-03-12 10:08 | RAD ---
Chest x-ray single frontal view History: Diabetic. Comparison: 10/11/2017 Findings: Biapical pleural thickening with upper lobe granulomatous changes. Diffuse increased interstitial lung markings. Bilateral hilar prominence. Mild patchy increased markings at the right lung base laterally. Status post median sternotomy and CABG. Left-sided pacemaker. Degenerative changes in the spine and shoulders. Surgical clips in the upper abdomen. Impression: Biapical pleural thickening with upper lobe granulomatous changes. Diffuse increased interstitial lung markings. Bilateral hilar prominence. Mild patchy increased markings at the right lung base laterally. Status post median sternotomy and CABG. Left-sided pacemaker. Degenerative changes in the spine and shoulders. Surgical clips in the upper abdomen.
--- NOTE | 2018-03-12 11:59 | CARD ---
APPROVED REPORT Date of service: 03/11/2018 EKG Measurement Heart [id number] <Conclusion> Sinus tachycardia Right bundle branch block Voltage criteria for left ventricular hypertrophy Inferior infarct, age undetermined T wave abnormality, consider lateral ischemia Abnormal ECG
--- NOTE | 2018-03-12 21:07 | CP.PCM.HP ---
History of Present Illness - History of Present Illness History of Present Illness: Chief complaint: Elevated blood sugar HPI: 87-year-old female with a history of hypertension COPD CAD, CABG, hypercholesterolemia, osteoporosis, history of pneumonia, history of tracheostomy following aspiration pneumonitis. patient's daughter called me yesterday evening, her mother is not doing well, in the half-way her blood sugar noted to be extremely elevated, and she was becoming more lethargic so she she is arranging to take her to the hospital. Patient last night in the emergency room was evaluated, initially admitted to Dr. Dennis's service. Family requested today, and as I know this patient family requested to take care of her. The patient is being transferred to my service today in the evening time. I examined the patient. She was complaining of minimal S will be. But she is feeling okay. Cough noted. More awake and responding. Patient has a feeding tube. But significant redness, and excoriation around the tube noted. No vomiting. Patient in the past had a significant achalasia cardia, following that because of the esophageal stricture patient underwent gastrostomy tube. But gastrostomy tube had a multiple times the problems, frequent infection. Upon arrival patient was having significantly elevated blood sugar level, and the elevated lactate noted. Patient was given IV fluids and admitted to the hospital. Past medical history as noted above Surgical history CABG, status post a tracheostomy, PEG tube, multiple esophageal dilatation followed by Botox injection for achalasia cardia. Allergy as noted above Personal history: Ex-smoker. Patient is currently in half-way placement Review of system: Noted from the chart. Patient is responding well. But some respiratory distress noted. Abdominal distention minimally noted. Excoriation around the tube noted. Tracheostomy site healing On examination: Vital signs: Initial tachycardia and tachypnea noted. Currently patient has a heartbeat of 115. Blood pressure 132/78 saturation is 98% cannula Chest bilateral good air entry, expiratory wheezing noted irregular heart sound , nontender abdomen, edema negative Patient has a right hand nail changes. Patient's labs showing dehydration symptoms. Elevated calcium level noted. CBC improvement in the WBC noted. Lactate also elevated. chest x-ray showing no evidence of any acute changes. Assessment and recommendation: Patient is a 87-year-old female with a history of COPD, CAD, CABG, history of stent multiple times, aspiration pneumonia pneumonitis, status post a tracheostomy. Patient is on PEG tube. Admitted now with the severe lactic acidosis. Acute hypercalcemia Elevated BUN Most likely symptoms related to severe dehydration, and underlying uncontrolled diabetes. Patient will need continuous IV hydration. Underlying sepsis cannot be ruled out. Most likely patient has a PEG tube in foot site infection. Infectious disease evaluation may be needed. IV hydration. Glucose control. We will continue to monitor. I spoke to the patient's daughter. Will follow-up the patient DVT and GI prophylaxis Present on Admission - Present on Admission Any Indicators Present on Admission: No History of DVT/PE: No History of Uncontrolled Diabetes: No Urinary Catheter: No Decubitus Ulcer Present: No Past Patient History - Infectious Disease Hx of Infectious Diseases: None - Past Medical History & Family History Past Medical History?: Yes - Past Social History Smoking Status: Never Smoked - CARDIAC Hx Cardia Arrhythmia: Yes Hx Congestive Heart Failure: Yes Hx Hypercholesterolemia: Yes Hx Hypertension: Yes Hx Pacemaker: Yes - PULMONARY Hx Bronchitis: Yes Hx Chronic Obstructive Pulmonary Disease (COPD): Yes Hx Pneumonia: Yes Other/Comment: Tracheostomy Scar. - NEUROLOGICAL Hx Seizures: No - HEENT Hx HEENT Problems: Yes Hx Cataracts: Yes (2000 Rt.Eye,2009Left Eye) - RENAL Hx Chronic Kidney Disease: No - ENDOCRINE/METABOLIC Hx Diabetes Mellitus Type 2: Yes - HEMATOLOGICAL/ONCOLOGICAL Hx Human Immunodeficiency Virus (HIV): No - INTEGUMENTARY Hx Dermatological Problems: No - MUSCULOSKELETAL/RHEUMATOLOGICAL Hx Falls: Yes - GASTROINTESTINAL Hx Gastrointestinal Disorders: Yes Hx Colitis: Yes Hx Gastroesophageal Reflux: Yes HX Swallowing Problems: Yes (Achalasia. 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) Hx Coronary Stent: Yes - ANESTHESIA Hx Anesthesia: Yes Hx Anesthesia Reactions: No Hx Malignant Hyperthermia: No Meds Allergies/Adverse Reactions: Allergies Allergy/AdvReac Type Severity Reaction Status Date / Time iodine Allergy REDNESS Verified 03/11/18 18:52 Penicillins Allergy ANGIOEDEMA Verified 03/11/18 18:52 clopidogrel [From Plavix] AdvReac HEADACHE Verified 03/11/18 18:52 losartan [From Cozaar] AdvReac DIZZINESS Verified 03/11/18 18:52 nitroglycerin AdvReac DIZZINESS Verified 03/11/18 18:52 Results - Vital Signs Recent Vital Signs: Last Vital Signs Temp 98.1 F 03/12/18 15:00 Pulse 115 H 03/12/18 17:32 Resp 20 03/12/18 15:00 BP 135/78 03/12/18 17:32 Pulse Ox 98 03/12/18 15:00 - Labs Result Diagrams: 03/12/18 07:09 03/11/18 19:30 Labs: Laboratory Results - last 24 hr 03/11/18 03/11/18 03/11/18 20:45 21:14 22:19 WBC RBC Hgb Hct MCV MCH MCHC RDW Plt Count MPV Neut % (Auto) Lymph % (Auto) [place] % (Auto) Eos % (Auto) Baso % (Auto) Neut # (Auto) Lymph # (Auto) [place] # (Auto) Eos # (Auto) Baso # (Auto) POC Glucose (mg/dL) 330 H Lactic Acid Urine Color Yellow Urine Clarity Hazy Urine pH 5.0 Ur Specific [place] 1.025 Urine Protein 2+ H Urine Glucose (UA) 3+ H Urine Ketones Negative Urine Blood Negative Urine Nitrate Negative Urine Bilirubin Negative Urine Urobilinogen Normal Ur Leukocyte Esterase Neg Urine WBC (Auto) 3 Urine RBC (Auto) < 1 Urine Bacteria Rare Hyaline Casts >20 H Stool Occult Blood Negative 03/12/18 03/12/18 03/12/18 00:12 06:31 07:09 WBC 12.9 H RBC 3.88 Hgb 12.0 D Hct 36.0 MCV 92.9 MCH 30.8 MCHC 33.2 RDW 16.5 H Plt Count 295 D MPV 8.3 Neut % (Auto) 69.9 Lymph % (Auto) 18.1 L [place] % (Auto) 9.1 Eos % (Auto) 2.3 Baso % (Auto) 0.6 Neut # (Auto) 9.0 H Lymph # (Auto) 2.3 [place] # (Auto) 1.2 H Eos # (Auto) 0.3 Baso # (Auto) 0.1 POC Glucose (mg/dL) 280 H Lactic Acid 4.1 H* Urine Color Urine Clarity Urine pH Ur Specific [place] Urine Protein Urine Glucose (UA) Urine Ketones Urine Blood Urine Nitrate Urine Bilirubin Urine Urobilinogen Ur Leukocyte Esterase Urine WBC (Auto) Urine RBC (Auto) Urine Bacteria Hyaline Casts Stool Occult Blood 03/12/18 03/12/18 11:18 16:46 WBC RBC Hgb Hct MCV MCH MCHC RDW Plt Count MPV Neut % (Auto) Lymph % (Auto) [place] % (Auto) Eos % (Auto) Baso % (Auto) Neut # (Auto) Lymph # (Auto) [place] # (Auto) Eos # (Auto) Baso # (Auto) POC Glucose (mg/dL) 345 H 360 H Lactic Acid Urine Color Urine Clarity Urine pH Ur Specific [place] Urine Protein Urine Glucose (UA) Urine Ketones Urine Blood Urine Nitrate Urine Bilirubin Urine Urobilinogen Ur Leukocyte Esterase Urine WBC (Auto) Urine RBC (Auto) Urine Bacteria Hyaline Casts Stool Occult Blood
[2018-03-12] MEDS: (Lantus) Insulin Glargine, Recombinant SC SCH (21:34)
[2018-03-12] MEDS: Sodium Chloride 0.9% 1,000 ML IV SCH (21:35)
[2018-03-12 22:19] LABS: ALB/GLOB RATIO 1.1 (1.0-2.1); ALBUMIN 3.6 g/dL (3.5-5.0); ALT/SGPT 18 U/L (9-52); AST/SGOT 19 U/L (14-36); BLOOD UREA NITROGEN 56 mg/dL (7-17); CALCIUM 9.8 mg/dl (8.6-10.4); GFR NON-AFRICAN AMERICAN > 60
[2018-03-13] MEDS: Albuterol-Ipratrop 3 mg / 0.5 (3 ml) UD INH SCH ×4 (01:22→19:52)
[2018-03-13 08:18] LABS: BASO # 0.1 K/uL (0.0-0.2); BASO % 0.9 % (0.0-2.0); EOS # 0.2 K/uL (0.0-0.7); EOS % 1.7 % (0.0-4.0); HEMOGLOBIN 12.7 g/dL (11.0-16.0); LYMPH # 2.3 K/uL (1.0-4.3); LYMPH % 16.2 % (20.0-40.0); MEAN CELL VOLUME 93.8 fL (81.0-99.0); MEAN CORPUSCULAR HEMOGLOBIN 33.3 pg (27.0-31.0); MEAN CORPUSCULAR HGB CONC 35.5 g/dL (33.0-37.0); MEAN PLATELET VOLUME 8.5 fL (7.2-11.7); MONO % 7.1 % (0.0-10.0); NEUT # 10.5 K/uL (1.8-7.0); NEUT % 74.1 % (50.0-75.0); NRBC % 0.1 % (0.0-2.0); RBC 3.81 Mil/uL (3.80-5.20); RED CELL DISTRIBUTION WIDTH 16.7 % (11.5-14.5); WHITE BLOOD COUNT 14.1 K/uL (4.8-10.8)
[2018-03-13] MEDS: (Novolog) Insulin Aspart, Recombinant 100 u/ml 10 ml vial SC SCH ×4 (08:23→21:58)
--- NOTE | 2018-03-13 08:27 | CP.PCM.CON ---
History of Present Illness - History of Present Illness History of Present Illness: dictated Past Patient History - Infectious Disease Hx of Infectious Diseases: None - Past Medical History & Family History Past Medical History?: Yes - Past Social History Smoking Status: Never Smoked - CARDIAC Hx Cardia Arrhythmia: Yes Hx Congestive Heart Failure: Yes Hx Hypercholesterolemia: Yes Hx Hypertension: Yes Hx Pacemaker: Yes - PULMONARY Hx Bronchitis: Yes Hx Chronic Obstructive Pulmonary Disease (COPD): Yes Hx Pneumonia: Yes Other/Comment: Tracheostomy Scar. - NEUROLOGICAL Hx Seizures: No - HEENT Hx HEENT Problems: Yes Hx Cataracts: Yes (2000 Rt.Eye,2009Le Eye) - RENAL Hx Chronic Kidney Disease: No - ENDOCRINE/METABOLIC Hx Diabetes Mellitus Type 2: Yes - HEMATOLOGICAL/ONCOLOGICAL Hx Human Immunodeficiency Virus (HIV): No - INTEGUMENTARY Hx Dermatological Problems: No - MUSCULOSKELETAL/RHEUMATOLOGICAL Hx Falls: Yes - GASTROINTESTINAL Hx Gastrointestinal Disorders: Yes Hx Colitis: Yes Hx Gastroesophageal Reflux: Yes HX Swallowing Problems: Yes (Achalasia. 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) Hx Coronary Stent: Yes - ANESTHESIA Hx Anesthesia: Yes Hx Anesthesia Reactions: No Hx Malignant Hyperthermia: No Meds Allergies/Adverse Reactions: Allergies Allergy/AdvReac Type Severity Reaction Status Date / Time iodine Allergy REDNESS Verified 03/11/18 18:52 Penicillins Allergy ANGIOEDEMA Verified 03/11/18 18:52 clopidogrel [From Plavix] AdvReac HEADACHE Verified 03/11/18 18:52 losartan [From Cozaar] AdvReac DIZZINESS Verified 03/11/18 18:52 nitroglycerin AdvReac DIZZINESS Verified 03/11/18 18:52 - Medications Medications: Current Medications Acetaminophen (Tylenol 650 Mg Supp) 650 mg VT Q6 PRN PRN Reason: Fever >100.4 F Albuterol/Ipratropium (Duoneb 3 Mg/0.5 Mg (3 Ml) Ud) 3 ml INH RQ6 [facility] Last Admin: 03/13/18 07:15 Dose: 3 ml Aspirin (Ecotrin) 81 mg PO DAILY [facility] Heparin Sodium (Porcine) (Heparin) 5,000 units SC Q8 [facility] Last Admin: 03/13/18 07:05 Dose: 5,000 units Tigecycline 50 mg/ Sodium (Chloride) 100 mls @ 100 mls/hr IVPB Q12H [facility] PRN Reason: Protocol Last Admin: 03/13/18 00:34 Dose: 100 mls/hr Sodium Chloride (Sodium Chloride 0.9%) 1,000 mls @ 75 mls/hr IV [id number] [facility] Last Admin: 03/12/18 21:35 Dose: 75 mls/hr Insulin Aspart (Novolog) 0 unit SC [facility] PRN Reason: Protocol Last Admin: 03/13/18 08:23 Dose: 4 units Insulin Glargine (Lantus) 15 unit SC [facility] Last Admin: 03/12/18 21:34 Dose: 15 units Isosorbide Mononitrate (Ismo) 20 mg PO DAILY [facility] Last Admin: 03/12/18 10:40 Dose: 20 mg Metoprolol Tartrate (Lopressor) 50 mg PO BID [facility] Last Admin: 03/12/18 17:31 Dose: 50 mg Pantoprazole Sodium (Protonix Inj) 40 mg IVP DAILY [facility] Last Admin: 03/12/18 10:39 Dose: 40 mg Pneumococcal Polyvalent Vaccine (Pneumovax 23 Vaccine) 0.5 ml IM .ONCE ONE Stop: 03/14/18 11:01 Rosuvastatin Calcium (Crestor) 10 mg PO [facility] Last Admin: 03/12/18 21:34 Dose: 10 mg Results - Vital Signs Recent Vital Signs: Last Vital Signs Temp 98.0 F 03/12/18 23:25 Pulse 100 H 03/13/18 00:00 Resp 20 03/12/18 23:25 BP 115/64 03/12/18 23:25 Pulse Ox 98 03/12/18 23:25 - Labs Result Diagrams: 03/13/18 08:02 03/13/18 08:02 Labs: Laboratory Results - last 24 hr 03/12/18 03/12/18 03/12/18 11:18 16:46 21:21 WBC RBC Hgb Hct MCV MCH MCHC RDW Plt Count MPV Neut % (Auto) Lymph % (Auto) [place] % (Auto) Eos % (Auto) Baso % (Auto) Neut # (Auto) Lymph # (Auto) [place] # (Auto) Eos # (Auto) Baso # (Auto) Sodium Potassium Chloride Carbon Dioxide Anion Gap BUN Creatinine Est GFR ( Amer) Est GFR (Non-Af Amer) POC Glucose (mg/dL) 345 H 360 H 330 H Random Glucose Calcium Phosphorus Magnesium Total Bilirubin AST ALT Alkaline Phosphatase Total Protein Albumin Globulin Albumin/Globulin Ratio 03/12/18 03/13/18 03/13/18 22:03 01:50 06:20 WBC RBC Hgb Hct MCV MCH MCHC RDW Plt Count MPV Neut % (Auto) Lymph % (Auto) [place] % (Auto) Eos % (Auto) Baso % (Auto) Neut # (Auto) Lymph # (Auto) [place] # (Auto) Eos # (Auto) Baso # (Auto) Sodium 145 Potassium 4.5 Chloride 110 H Carbon Dioxide 30 Anion Gap 10 BUN 56 H Creatinine 0.6 L Est GFR ( Amer) > 60 Est GFR (Non-Af Amer) > 60 POC Glucose (mg/dL) 186 H 220 H Random Glucose 305 H Calcium 9.8 Phosphorus 2.8 Magnesium 2.2 Total Bilirubin 0.4 AST 19 ALT 18 Alkaline Phosphatase 90 Total Protein 6.9 Albumin 3.6 Globulin 3.3 Albumin/Globulin Ratio 1.1 03/13/18 08:02 WBC 14.1 H RBC 3.81 Hgb 12.7 Hct 35.7 MCV 93.8 MCH 33.3 H MCHC 35.5 RDW 16.7 H Plt Count 315 MPV 8.5 Neut % (Auto) 74.1 Lymph % (Auto) 16.2 L [place] % (Auto) 7.1 Eos % (Auto) 1.7 Baso % (Auto) 0.9 Neut # (Auto) 10.5 H Lymph # (Auto) 2.3 [place] # (Auto) 1.0 H Eos # (Auto) 0.2 Baso # (Auto) 0.1 Sodium Potassium Chloride Carbon Dioxide Anion Gap BUN Creatinine Est GFR ( Amer) Est GFR (Non-Af Amer) POC Glucose (mg/dL) Random Glucose Calcium Phosphorus Magnesium Total Bilirubin AST ALT Alkaline Phosphatase Total Protein Albumin Globulin Albumin/Globulin Ratio
[2018-03-13 08:42] LABS: ALBUMIN 3.7 g/dL (3.5-5.0); ALT/SGPT 18 U/L (9-52); AST/SGOT 18 U/L (14-36); BLOOD UREA NITROGEN 52 mg/dL (7-17); CALCIUM 9.7 mg/dl (8.6-10.4); GFR NON-AFRICAN AMERICAN > 60
[2018-03-13] MEDS: Vancomycin 1 gm/NS 200 ml 1 GM/200 ML BAG IVPB SCH (09:50)
[2018-03-13] MEDS: Sodium Chloride 0.9% 1,000 ML IV SCH ×2 (10:39→11:54)
[2018-03-13] MEDS: Sodium Chloride 0.45% 1,000 ML IV SCH (11:20)
[2018-03-13] MEDS: (Lantus) Insulin Glargine, Recombinant SC SCH (22:11)
[2018-03-14] MEDS: Sodium Chloride 0.45% 1,000 ML IV SCH ×3 (00:38→16:44)
[2018-03-14] MEDS: Albuterol-Ipratrop 3 mg / 0.5 (3 ml) UD INH SCH ×4 (01:34→19:36)
[2018-03-14 06:22] LABS: BASO % 0.2 % (0.0-2.0); EOS # 0.4 K/uL (0.0-0.7); EOS % 2.9 % (0.0-4.0); HEMOGLOBIN 12.3 g/dL (11.0-16.0); LYMPH # 3.2 K/uL (1.0-4.3); LYMPH % 25.1 % (20.0-40.0); MEAN CELL VOLUME 93.7 fL (81.0-99.0); MEAN CORPUSCULAR HEMOGLOBIN 33.9 pg (27.0-31.0); MEAN CORPUSCULAR HGB CONC 36.1 g/dL (33.0-37.0); MEAN PLATELET VOLUME 8.5 fL (7.2-11.7); NEUT # 8.2 K/uL (1.8-7.0); NEUT % 63.8 % (50.0-75.0); NRBC % 0.1 % (0.0-2.0); RBC 3.64 Mil/uL (3.80-5.20); RED CELL DISTRIBUTION WIDTH 16.4 % (11.5-14.5); WHITE BLOOD COUNT 12.9 K/uL (4.8-10.8)
[2018-03-14 06:50] LABS: ALB/GLOB RATIO 1.2 (1.0-2.1); ALBUMIN 3.4 g/dL (3.5-5.0); ALT/SGPT 21 U/L (9-52); AST/SGOT 22 U/L (14-36); BLOOD UREA NITROGEN 45 mg/dL (7-17); CALCIUM 9.1 mg/dl (8.6-10.4); GFR NON-AFRICAN AMERICAN > 60
--- NOTE | 2018-03-14 07:54 | CON ---
Copied To: Val Jones MD Attending MD: Val Jones MD DATE: 03/13/2018 INFECTIOUS DISEASE CONSULT REQUESTING PHYSICIAN: Jesse Dennis MD and Luis Manuel Patel MD. HISTORY OF PRESENT ILLNESS: This patient is an 87-year-old female. She comes from the detention. She has history of diabetes and she has coronary artery disease, COPD, vertigo, diverticulosis, achalasia, and she was transferred from the detention with history of pneumonia, also history of trach following an aspiration pneumonitis in the past, comes in with high sugars and I was asked to give antibiotics, and she has multiple drug allergies. She came in here with sugars of 500 plus and she was lethargic. She was also having bleeding around her GT tube site. She also had blood blackish in her mouth and she had this dressing just in the neck which may be the old site of tracheostomy. The patient was arousable, but not able to give much history. So, most of the history is taken from the chart. She also has a significant history of achalasia and esophageal stricture and has a GT tube and the GT tube site had redness and swelling and infection present and she also was septic, came in with sepsis syndrome as her lactate was high and patient is admitted with IV fluids. ALLERGIES: SHE IS ALLERGIC TO IODINE, PENICILLIN, CLOPIDOGREL, LOSARTAN, AND NITROFURANTOIN. This hospital does not have any Avelox or Levaquin. MEDICATIONS: On the formulary except Cipro medication are; Tylenol, albuterol, and heparin. She was on Zithromax. She received a dose of vancomycin. She is on insulin in the detention, Lantus, isosorbide, meclizine, metoprolol, and pantoprazole. PAST MEDICAL HISTORY: As above dictated that she has diabetes insulin-dependent, coronary artery disease, COPD, vertigo, diverticulosis, achalasia, status post PEG. She also used to have a trach. She has esophageal stricture and she was admitted here with GI bleeding and had one coffee ground emesis at detention. She has esophageal stricture and she has been seen by GI. Past medical history is significant for pneumonia. She never smoked. She has cardiac arrhythmia, congestive heart failure, hypercholesterolemia, hypertension, pacemaker. Pulmonary; history of bronchitis, history of COPD, history of pneumonia present. She has a tracheostomy scar. She has no history of seizures. She has no history of kidney issues. She has no HIV. Hematologically, she has a skin infection around the GT tube site at this time. She has a history of fall, history of GI disorders, and history of colitis in the past, history of gastroesophageal reflux disease. She also has swallowing problems, had achalasia, that is why she has a PEG from 2015. There is no or [employer]ILDING [employer] problems. She has no psych issues. PAST SURGICAL HISTORY: Surgical history of carotid endarterectomy on 06/13/2005. She also had coronary artery bypass graft, which was in November 1991, has a coronary stent, has had anesthesia and she all these allergies. With iodine, she gets redness. With penicillin, she has history of angioedema. Plavix, she has headaches. Losartan causes dizziness. Nitroglycerin causes dizziness. PHYSICAL EXAMINATION: GENERAL: She is a thin, cachectic female. VITAL SIGNS: I find her temperature is 98, heart rate of 105, blood pressure 115/64, and respirations are 20. HEENT: She opens her eyes, but she seems to be not able to communicate. She is ill-looking. Head is atraumatic and normocephalic. Mouth has dry totally oral mucosa. There are no teeth present. SKIN: Warm to touch. NECK: Supple. There is a tracheostomy scar there. There is no lymphadenopathy. LUNGS: No wheezing, no rhonchi, no rales present. HEART: S1 and S2 are regular. No murmurs appreciated. ABDOMEN: Has a PEG tube, which appears to have redness around the PEG tube site and has some coffee-ground vomitus around the PEG site also. EXTREMITIES: No edema. No cyanosis. LABORATORY DATA: She has a white count of 14.1 today. She had white count of 12.9 yesterday, hemoglobin 12, hematocrit 36, and platelet count is 295 yesterday. Today; it is 14.1, hemoglobin 12.7, hematocrit 35.7, and platelet count is 315. So, white count has increased. We will reevaluate the antibiotics. Sodium is 145, potassium 4.5, chloride 110, carbon dioxide is 30, BUN is 56, creatinine is 0.6, and anion gap is 10. Her sugars are down to 220 today and I want to see her lactic acid. Blood gases; she came with the lactate level of 7.8, it needs to be repeated. We need lactate level stat which is done at 4 o' clock is pending at this time. She is on Tygacil. I would get a wound culture from the [facility], I have wound culture, which is pending at this time. Blood cultures x2 are negative. Chest x-ray shows diffuse increased interstitial lung markings, bilateral hilar prominence, mild patchy increased markings at the right lung base laterally, status post median sternotomy, CABG, left-sided pacemaker, degenerative changes in the spine and shoulder, and surgical clips in the upper abdomen. ASSESSMENT AND PLAN: So, at this time, she is already on Tygacil and white count is increasing. She has a gastrostomy tube site infection with hyperglycemia and will follow Gastroenterology recommendations. At this time, I will add vancomycin to Tygacil and continue the medication and we will follow. Val Jones MD
[2018-03-14] MEDS: (Novolog) Insulin Aspart, Recombinant 100 u/ml 10 ml vial SC SCH ×4 (08:29→22:07)
[2018-03-14] MEDS: Vancomycin 1 gm/NS 200 ml 1 GM/200 ML BAG IVPB SCH (10:05)
[2018-03-14] MEDS ORDERED: Pneumococcal 23-Valent Vaccine IM ONE ×2 (11:00→12:15)
[2018-03-14] MEDS: Bacitracin/Neomycin/Polymyxin Oint(30GM) TOP SCH (19:09)
--- NOTE | 2018-03-14 21:23 | CP.PCM.PN ---
Subjective - Date & Time of Evaluation Date of Evaluation: 03/14/18 Time of Evaluation: 18:30 - Subjective Subjective: dictated Objective - Vital Signs/Intake and Output Vital Signs (last 24 hours): Temp Pulse Resp BP Pulse Ox 97.3 F L 82 20 113/64 99 03/14/18 15:00 03/14/18 18:45 03/14/18 18:45 03/14/18 18:45 03/14/18 18:45 Intake and Output: 03/14/18 03/15/18 18:59 06:59 Intake Total 600 Output Total 450 400 Balance 150 -400 - Medications Medications: Current Medications Acetaminophen (Tylenol 650 Mg Supp) 650 mg HI Q6 PRN PRN Reason: Fever >100.4 F Albuterol/Ipratropium (Duoneb 3 Mg/0.5 Mg (3 Ml) Ud) 3 ml INH RQ6 [facility] Last Admin: 03/14/18 19:36 Dose: 3 ml Aspirin (Ecotrin) 81 mg PO DAILY [facility] Last Admin: 03/14/18 10:04 Dose: 81 mg Diltiazem HCl (Cardizem) 30 mg PO QID [facility] Last Admin: 03/14/18 18:57 Dose: 30 mg Heparin Sodium (Porcine) (Heparin) 5,000 units SC Q8 [facility] Last Admin: 03/14/18 13:30 Dose: 5,000 units Tigecycline 50 mg/ Sodium (Chloride) 100 mls @ 100 mls/hr IVPB Q12H [facility] PRN Reason: Protocol Last Admin: 03/14/18 11:53 Dose: 100 mls/hr Vancomycin/Sodium Chloride (Vancomycin 1 Gm/Ns 200 Ml) 1 gm in 200 mls @ 166.7 mls/hr IVPB Q24H [facility] PRN Reason: Protocol Stop: 03/18/18 09:31 Last Admin: 03/14/18 10:05 Dose: 166.7 mls/hr Insulin Aspart (Novolog) 0 unit SC [facility] PRN Reason: Protocol Last Admin: 03/14/18 17:30 Dose: 6 units Insulin Glargine (Lantus) 15 unit SC HS [facility] Last Admin: 03/13/18 22:11 Dose: 15 units Isosorbide Mononitrate (Imdur) 60 mg PO DAILY [facility] Last Admin: 03/14/18 10:05 Dose: 60 mg Metoprolol Tartrate (Lopressor) 50 mg PO BID [facility] Last Admin: 03/14/18 18:57 Dose: 50 mg Mupirocin (Bactroban Ointment) 0 gm TOP BID [facility] Last Admin: 03/14/18 19:00 Dose: 1 applic Neomycin/Polymyxin/Bacitracin (Neosporin Triple Antibiotic Oint) 0 gm TOP Q24H [facility] Last Admin: 03/14/18 19:09 Dose: 1 applic Pantoprazole Sodium (Protonix Inj) 40 mg IVP DAILY [facility] Last Admin: 03/14/18 10:05 Dose: 40 mg Rosuvastatin Calcium (Crestor) 10 mg PO HS [facility] Last Admin: 03/13/18 22:09 Dose: 10 mg - Labs Labs: 03/14/18 06:13 03/14/18 06:13
[2018-03-14] MEDS: (Lantus) Insulin Glargine, Recombinant SC SCH (22:03)
[2018-03-15] MEDS: Albuterol-Ipratrop 3 mg / 0.5 (3 ml) UD INH SCH ×4 (01:17→19:51)
--- NOTE | 2018-03-15 06:23 | PN ---
Copied To: Val Jones MD Attending MD: Val Jones MD DATE: 03/14/2018 SUBJECTIVE: Patient was seen today in the evening. She was very drowsy. I tried to wake her up and she would not get up, but seem like she was in deep sleep or sedated. PHYSICAL EXAMINATION: VITAL SIGNS: T-max is 97.3, pulse 73, blood pressure is 98/58, respirations are 20. HEENT: Head is atraumatic and normocephalic. NECK: Supple. LUNGS: Have decreased breath sounds bilaterally. HEART: S1 and S2 regular. ABDOMEN: Soft. PEG tube has redness and this morning the wound care nurse called me and he wanted to put redeem and I told him to go ahead with that and I would follow the cultures to see what antibiotic to place or to change them. EXTREMITIES: Have no edema and she is a very cachectic female and short female. LABORATORY DATA: White count is 12.9, hemoglobin 12.3, hematocrit 34.1, platelet count is 277. BUN is 45, creatinine 0.5, and sodium is 141, it is okay and the wound cultures came out. Urine culture has Klebsiella, GPCs, and yeast and Klebsiella is however, very sensitive to ertapenem, but we do not have ertapenem. It is sensitive to meropenem and it is sensitive to Bactrim and PATIENT IS ALLERGIC TO PENICILLIN, IODINE, LOSARTAN, AND NITROGLYCERIN and she is actually on vanco and Tygacil. At this time, vanco and Tygacil . So, at this time she is only on Tygacil and vancomycin. SINCE SHE IS ALLERGIC TO PENICILLIN, I will place her on Merrem tomorrow morning and or I can find if this E. coli is sensitive to Tygacil from the pharmacy tomorrow and decide from that. But, at this time I will continue present treatment and will follow and also we will add Diflucan if it is not there. We will follow. Patient came in with sepsis and has GT tube site infection and if this infection does not go away with this, then she may need to have holding of the feeding and she may need total rest to the area and may need a new site for PEG. We will start the antibiotics at this time and we will discuss the plan with the attending. Val Jones MD [facility] # [id number]
[2018-03-15] MEDS: (Novolog) Insulin Aspart, Recombinant 100 u/ml 10 ml vial SC SCH ×4 (08:36→21:42)
[2018-03-15 08:50] LABS: ALB/GLOB RATIO 1.1 (1.0-2.1); ALBUMIN 3.2 g/dL (3.5-5.0); CALCIUM 8.8 mg/dl (8.6-10.4); GFR NON-AFRICAN AMERICAN > 60
[2018-03-15 08:53] LABS: BASO # 0.1 K/uL (0.0-0.2); BASO % 0.9 % (0.0-2.0); EOS # 0.4 K/uL (0.0-0.7); HEMOGLOBIN 11.1 g/dL (11.0-16.0); LYMPH % 18.3 % (20.0-40.0); MEAN CORPUSCULAR HEMOGLOBIN 31.5 pg (27.0-31.0); MEAN CORPUSCULAR HGB CONC 33.5 g/dL (33.0-37.0); MEAN PLATELET VOLUME 8.8 fL (7.2-11.7); MONO # 0.9 K/uL (0.0-0.8); MONO % 8.2 % (0.0-10.0); NEUT # 7.3 K/uL (1.8-7.0); NEUT % 68.6 % (50.0-75.0); NRBC % 0.2 % (0.0-2.0); RBC 3.52 Mil/uL (3.80-5.20); RED CELL DISTRIBUTION WIDTH 16.2 % (11.5-14.5); WHITE BLOOD COUNT 10.7 K/uL (4.8-10.8)
[2018-03-15 08:56] LABS: ALT/SGPT 19 U/L (9-52); AST/SGOT 19 U/L (14-36); BLOOD UREA NITROGEN 37 mg/dL (7-17)
[2018-03-15] MEDS: Fluconazole IV 100mg/50 ml NS 50 ML IVPB SCH (09:37)
[2018-03-15] MEDS: Vancomycin 1 gm/NS 200 ml 1 GM/200 ML BAG IVPB SCH (09:37)
[2018-03-15] MEDS: Bacitracin/Neomycin/Polymyxin Oint(30GM) TOP SCH (16:14)
[2018-03-15] MEDS: (Lantus) Insulin Glargine, Recombinant SC SCH (21:54)
[2018-03-16] MEDS: Albuterol-Ipratrop 3 mg / 0.5 (3 ml) UD INH SCH ×4 (01:55→21:14)
[2018-03-16] MEDS: (Novolog) Insulin Aspart, Recombinant 100 u/ml 10 ml vial SC SCH ×4 (08:08→21:26)
[2018-03-16] MEDS: Pantoprazole 40 mg Susp UD PO SCH (09:16)
[2018-03-16] MEDS: Vancomycin 1 gm/NS 200 ml 1 GM/200 ML BAG IVPB SCH (09:17)
[2018-03-16] MEDS: Fluconazole IV 100mg/50 ml NS 50 ML IVPB SCH (10:44)
--- NOTE | 2018-03-16 14:02 | CP.PCM.PN ---
Subjective - Date & Time of Evaluation Date of Evaluation: 03/13/18 Time of Evaluation: 14:02 - Subjective Subjective: Patient is still feeling some vague. Coughing still noted. PEG tube site is excoriated. Clinical examination is remarkable for bilateral wheezing. No bedsore noted. Is currently receiving IV fluid. Also receiving PEG tube feeding. We will continue the current treatment. Antibiotic as per the infectious disease. We will follow the patient Objective - Vital Signs/Intake and Output Vital Signs (last 24 hours): Temp Pulse Resp BP Pulse Ox 97.7 F 88 20 111/67 94 L 03/16/18 07:40 03/16/18 08:37 03/16/18 07:40 03/16/18 07:40 03/16/18 07:40 Intake and Output: 03/16/18 03/16/18 06:59 18:59 Output Total 850 Balance -850 - Medications Medications: Current Medications Acetaminophen (Tylenol 650 Mg Supp) 650 mg [place] Q6 PRN PRN Reason: Fever >100.4 F Albuterol/Ipratropium (Duoneb 3 Mg/0.5 Mg (3 Ml) Ud) 3 ml INH RQ6 [facility] Last Admin: 03/16/18 13:52 Dose: Not Given Aspirin (Aspirin Chewable) 81 mg PO DAILY [facility] Last Admin: 03/16/18 09:16 Dose: 81 mg Diltiazem HCl (Cardizem) 30 mg PO QID [facility] Last Admin: 03/16/18 13:32 Dose: 30 mg Heparin Sodium (Porcine) (Heparin) 5,000 units SC Q12 [facility] Last Admin: 03/16/18 09:16 Dose: 5,000 units Tigecycline 50 mg/ Sodium (Chloride) 100 mls @ 100 mls/hr IVPB Q12H [facility] PRN Reason: Protocol Last Admin: 03/16/18 11:57 Dose: 100 mls/hr Vancomycin/Sodium Chloride (Vancomycin 1 Gm/Ns 200 Ml) 1 gm in 200 mls @ 166.7 mls/hr IVPB Q24H [facility] PRN Reason: Protocol Stop: 03/18/18 09:31 Last Admin: 03/16/18 09:17 Dose: 166.7 mls/hr Fluconazole (Diflucan Iv 100 Mg/50 Ml Ns) 50 mls @ 100 mls/hr IVPB DAILY [facility] PRN Reason: Protocol Last Admin: 03/16/18 10:44 Dose: 100 mls/hr Insulin Aspart (Novolog) 0 unit SC ACHS [facility] PRN Reason: Protocol Last Admin: 03/16/18 12:28 Dose: 4 units Insulin Glargine (Lantus) 15 unit SC HS [facility] Last Admin: 03/15/18 21:54 Dose: 15 units Isosorbide Mononitrate (Imdur) 60 mg PO DAILY [facility] Last Admin: 03/14/18 10:05 Dose: 60 mg Metoprolol Tartrate (Lopressor) 50 mg PO BID [facility] Last Admin: 03/16/18 09:17 Dose: Not Given Mupirocin (Bactroban Ointment) 0 gm TOP BID [facility] Last Admin: 03/16/18 09:17 Dose: 1 applic Neomycin/Polymyxin/Bacitracin (Neosporin Triple Antibiotic Oint) 0 gm TOP Q24H [facility] Last Admin: 03/15/18 16:14 Dose: 1 applic Pantoprazole Sodium (Protonix Susp) 40 mg PO DAILY [facility] Last Admin: 03/16/18 09:16 Dose: 40 mg Rosuvastatin Calcium (Crestor) 10 mg PO HS [facility] Last Admin: 03/15/18 21:55 Dose: 10 mg - Labs Labs: 03/15/18 08:18 03/15/18 08:18
--- NOTE | 2018-03-16 14:03 | CP.PCM.PN ---
Subjective - Date & Time of Evaluation Date of Evaluation: 03/15/18 Time of Evaluation: 14:03 - Subjective Subjective: Patient is feeling much better. She denies any chest pain or shortness of breath, cough noted. Leg swelling negative. Tolerating the feeding Vital signs stable otherwise Clinical examination is unremarkable Labs reviewed Will continue the current treatment. On antibiotic. Continue the physical exercise and therapy. Will follow the patient Objective - Vital Signs/Intake and Output Vital Signs (last 24 hours): Temp Pulse Resp BP Pulse Ox 97.7 F 88 20 111/67 94 L 03/16/18 07:40 03/16/18 08:37 03/16/18 07:40 03/16/18 07:40 03/16/18 07:40 Intake and Output: 03/16/18 03/16/18 06:59 18:59 Output Total 850 Balance -850 - Medications Medications: Current Medications Acetaminophen (Tylenol 650 Mg Supp) 650 mg [place] Q6 PRN PRN Reason: Fever >100.4 F Albuterol/Ipratropium (Duoneb 3 Mg/0.5 Mg (3 Ml) Ud) 3 ml INH RQ6 [facility] Last Admin: 03/16/18 13:52 Dose: Not Given Aspirin (Aspirin Chewable) 81 mg PO DAILY [facility] Last Admin: 03/16/18 09:16 Dose: 81 mg Diltiazem HCl (Cardizem) 30 mg PO QID [facility] Last Admin: 03/16/18 13:32 Dose: 30 mg Heparin Sodium (Porcine) (Heparin) 5,000 units SC Q12 [facility] Last Admin: 03/16/18 09:16 Dose: 5,000 units Tigecycline 50 mg/ Sodium (Chloride) 100 mls @ 100 mls/hr IVPB Q12H [facility] PRN Reason: Protocol Last Admin: 03/16/18 11:57 Dose: 100 mls/hr Vancomycin/Sodium Chloride (Vancomycin 1 Gm/Ns 200 Ml) 1 gm in 200 mls @ 166.7 mls/hr IVPB Q24H [facility] PRN Reason: Protocol Stop: 03/18/18 09:31 Last Admin: 03/16/18 09:17 Dose: 166.7 mls/hr Fluconazole (Diflucan Iv 100 Mg/50 Ml Ns) 50 mls @ 100 mls/hr IVPB DAILY [facility] PRN Reason: Protocol Last Admin: 03/16/18 10:44 Dose: 100 mls/hr Insulin Aspart (Novolog) 0 unit SC [facility] PRN Reason: Protocol Last Admin: 03/16/18 12:28 Dose: 4 units Insulin Glargine (Lantus) 15 unit SC [facility] Last Admin: 03/15/18 21:54 Dose: 15 units Isosorbide Mononitrate (Imdur) 60 mg PO DAILY [facility] Last Admin: 03/14/18 10:05 Dose: 60 mg Metoprolol Tartrate (Lopressor) 50 mg PO BID [facility] Last Admin: 03/16/18 09:17 Dose: Not Given Mupirocin (Bactroban Ointment) 0 gm TOP BID [facility] Last Admin: 03/16/18 09:17 Dose: 1 applic Neomycin/Polymyxin/Bacitracin (Neosporin Triple Antibiotic Oint) 0 gm TOP Q24H [facility] Last Admin: 03/15/18 16:14 Dose: 1 applic Pantoprazole Sodium (Protonix Susp) 40 mg PO DAILY [facility] Last Admin: 03/16/18 09:16 Dose: 40 mg Rosuvastatin Calcium (Crestor) 10 mg PO [facility] Last Admin: 03/15/18 21:55 Dose: 10 mg - Labs Labs: 03/15/18 08:18 03/15/18 08:18
--- NOTE | 2018-03-16 14:03 | CP.PCM.PN ---
Subjective - Date & Time of Evaluation Date of Evaluation: 03/14/18 Time of Evaluation: 14:02 - Subjective Subjective: Patient is feeling much better. Tolerating the feeding no No fever Significant improvement in the blood test noted. Blood pressure stable. Medication adjusted. We will continue the current treatment. Currently receiving intravenous IV antibiotic for possible sepsis, uncontrolled diabetes. We will follow the patient Objective - Vital Signs/Intake and Output Vital Signs (last 24 hours): Temp Pulse Resp BP Pulse Ox 97.7 F 88 20 111/67 94 L 03/16/18 07:40 03/16/18 08:37 03/16/18 07:40 03/16/18 07:40 03/16/18 07:40 Intake and Output: 03/16/18 03/16/18 06:59 18:59 Output Total 850 Balance -850 - Medications Medications: Current Medications Acetaminophen (Tylenol 650 Mg Supp) 650 mg [place] Q6 PRN PRN Reason: Fever >100.4 F Albuterol/Ipratropium (Duoneb 3 Mg/0.5 Mg (3 Ml) Ud) 3 ml INH RQ6 [facility] Last Admin: 03/16/18 13:52 Dose: Not Given Aspirin (Aspirin Chewable) 81 mg PO DAILY [facility] Last Admin: 03/16/18 09:16 Dose: 81 mg Diltiazem HCl (Cardizem) 30 mg PO QID [facility] Last Admin: 03/16/18 13:32 Dose: 30 mg Heparin Sodium (Porcine) (Heparin) 5,000 units SC Q12 [facility] Last Admin: 03/16/18 09:16 Dose: 5,000 units Tigecycline 50 mg/ Sodium (Chloride) 100 mls @ 100 mls/hr IVPB Q12H [facility] PRN Reason: Protocol Last Admin: 03/16/18 11:57 Dose: 100 mls/hr Vancomycin/Sodium Chloride (Vancomycin 1 Gm/Ns 200 Ml) 1 gm in 200 mls @ 166.7 mls/hr IVPB Q24H [facility] PRN Reason: Protocol Stop: 03/18/18 09:31 Last Admin: 03/16/18 09:17 Dose: 166.7 mls/hr Fluconazole (Diflucan Iv 100 Mg/50 Ml Ns) 50 mls @ 100 mls/hr IVPB DAILY [facility] PRN Reason: Protocol Last Admin: 08/18/18 10:44 Dose: 100 mls/hr Insulin Aspart (Novolog) 0 unit SC [facility] PRN Reason: Protocol Last Admin: 03/16/18 12:28 Dose: 4 units Insulin Glargine (Lantus) 15 unit SC [facility] Last Admin: 03/15/18 21:54 Dose: 15 units Isosorbide Mononitrate (Imdur) 60 mg PO DAILY [facility] Last Admin: 03/14/18 10:05 Dose: 60 mg Metoprolol Tartrate (Lopressor) 50 mg PO BID [facility] Last Admin: 03/16/18 09:17 Dose: Not Given Mupirocin (Bactroban Ointment) 0 gm TOP BID [facility] Last Admin: 03/16/18 09:17 Dose: 1 applic Neomycin/Polymyxin/Bacitracin (Neosporin Triple Antibiotic Oint) 0 gm TOP Q24H [facility] Last Admin: 03/15/18 16:14 Dose: 1 applic Pantoprazole Sodium (Protonix Susp) 40 mg PO DAILY [facility] Last Admin: 03/16/18 09:16 Dose: 40 mg Rosuvastatin Calcium (Crestor) 10 mg PO [facility] Last Admin: 03/15/18 21:55 Dose: 10 mg - Labs Labs: 03/15/18 08:18 03/15/18 08:18
--- NOTE | 2018-03-16 14:05 | CP.PCM.PN ---
Subjective - Date & Time of Evaluation Date of Evaluation: 03/16/18 Time of Evaluation: 14:04 - Subjective Subjective: Patient is currently feeling better today. She is feeling no cough. No wheezing noted. Denies any fever or chills. Tolerating the GI bleeding Clinical examination unremarkable. PEG tube wound is slightly better We will continue the current antibiotic. On PEG tube feeding. Glucose control. Discontinue IV fluid. Possible discharge plan on Sunday Objective - Vital Signs/Intake and Output Vital Signs (last 24 hours): Temp Pulse Resp BP Pulse Ox 97.7 F 88 20 111/67 94 L 03/16/18 07:40 03/16/18 08:37 03/16/18 07:40 03/16/18 07:40 03/16/18 07:40 Intake and Output: 03/16/18 03/16/18 06:59 18:59 Output Total 850 Balance -850 - Medications Medications: Current Medications Acetaminophen (Tylenol 650 Mg Supp) 650 mg [place] Q6 PRN PRN Reason: Fever >100.4 F Albuterol/Ipratropium (Duoneb 3 Mg/0.5 Mg (3 Ml) Ud) 3 ml INH RQ6 [facility] Last Admin: 03/16/18 13:52 Dose: Not Given Aspirin (Aspirin Chewable) 81 mg PO DAILY [facility] Last Admin: 03/16/18 09:16 Dose: 81 mg Diltiazem HCl (Cardizem) 30 mg PO QID [facility] Last Admin: 03/16/18 13:32 Dose: 30 mg Heparin Sodium (Porcine) (Heparin) 5,000 units SC Q12 [facility] Last Admin: 03/16/18 09:16 Dose: 5,000 units Tigecycline 50 mg/ Sodium (Chloride) 100 mls @ 100 mls/hr IVPB Q12H [facility] PRN Reason: Protocol Last Admin: 03/16/18 11:57 Dose: 100 mls/hr Vancomycin/Sodium Chloride (Vancomycin 1 Gm/Ns 200 Ml) 1 gm in 200 mls @ 166.7 mls/hr IVPB Q24H [facility] PRN Reason: Protocol Stop: 03/18/18 09:31 Last Admin: 03/16/18 09:17 Dose: 166.7 mls/hr Fluconazole (Diflucan Iv 100 Mg/50 Ml Ns) 50 mls @ 100 mls/hr IVPB DAILY [facility] PRN Reason: Protocol Last Admin: 03/16/18 10:44 Dose: 100 mls/hr Insulin Aspart (Novolog) 0 unit SC [facility] PRN Reason: Protocol Last Admin: 03/16/18 12:28 Dose: 4 units Insulin Glargine (Lantus) 15 unit SC HS [facility] Last Admin: 03/15/18 21:54 Dose: 15 units Isosorbide Mononitrate (Imdur) 60 mg PO DAILY [facility] Last Admin: 03/14/18 10:05 Dose: 60 mg Metoprolol Tartrate (Lopressor) 50 mg PO BID [facility] Last Admin: 03/16/18 09:17 Dose: Not Given Mupirocin (Bactroban Ointment) 0 gm TOP BID [facility] Last Admin: 03/16/18 09:17 Dose: 1 applic Neomycin/Polymyxin/Bacitracin (Neosporin Triple Antibiotic Oint) 0 gm TOP Q24H [facility] Last Admin: 03/15/18 16:14 Dose: 1 applic Pantoprazole Sodium (Protonix Susp) 40 mg PO DAILY [facility] Last Admin: 03/16/18 09:16 Dose: 40 mg Rosuvastatin Calcium (Crestor) 10 mg PO HS [facility] Last Admin: 03/15/18 21:55 Dose: 10 mg - Labs Labs: 03/15/18 08:18 03/15/18 08:18
[2018-03-16] MEDS: Bacitracin/Neomycin/Polymyxin Oint(30GM) TOP SCH (17:33)
--- NOTE | 2018-03-16 19:01 | CP.PCM.PN ---
Subjective - Date & Time of Evaluation Date of Evaluation: 03/16/18 Time of Evaluation: 14:15 - Subjective Subjective: dictated Objective - Vital Signs/Intake and Output Vital Signs (last 24 hours): Temp Pulse Resp BP Pulse Ox 97.5 F L 86 18 135/81 100 03/16/18 15:00 03/16/18 16:00 03/16/18 15:00 03/16/18 15:00 03/16/18 15:00 - Medications Medications: Current Medications Acetaminophen (Tylenol 650 Mg Supp) 650 mg [place] Q6 PRN PRN Reason: Fever >100.4 F Albuterol/Ipratropium (Duoneb 3 Mg/0.5 Mg (3 Ml) Ud) 3 ml INH RQ6 [facility] Last Admin: 03/16/18 13:52 Dose: Not Given Aspirin (Aspirin Chewable) 81 mg PO DAILY [facility] Last Admin: 03/16/18 09:16 Dose: 81 mg Diltiazem HCl (Cardizem) 30 mg PO QID [facility] Last Admin: 03/16/18 17:28 Dose: 30 mg Heparin Sodium (Porcine) (Heparin) 5,000 units SC Q12 [facility] Last Admin: 03/16/18 09:16 Dose: 5,000 units Tigecycline 50 mg/ Sodium (Chloride) 100 mls @ 100 mls/hr IVPB Q12H [facility] PRN Reason: Protocol Last Admin: 03/16/18 11:57 Dose: 100 mls/hr Vancomycin/Sodium Chloride (Vancomycin 1 Gm/Ns 200 Ml) 1 gm in 200 mls @ 166.7 mls/hr IVPB Q24H [facility] PRN Reason: Protocol Stop: 03/18/18 09:31 Last Admin: 03/16/18 09:17 Dose: 166.7 mls/hr Micafungin Sodium 100 mg/ (Sodium Chloride) 100 mls @ 100 mls/hr IV Q24H [facility] PRN Reason: Protocol Insulin Aspart (Novolog) 0 unit SC ACHS [facility] PRN Reason: Protocol Last Admin: 03/16/18 17:29 Dose: 4 units Insulin Glargine (Lantus) 15 unit SC HS [facility] Last Admin: 03/15/18 21:54 Dose: 15 units Isosorbide Mononitrate (Imdur) 60 mg PO DAILY [facility] Last Admin: 03/14/18 10:05 Dose: 60 mg Metoprolol Tartrate (Lopressor) 50 mg PO BID [facility] Last Admin: 03/16/18 17:28 Dose: 50 mg Mupirocin (Bactroban Ointment) 0 gm TOP BID [facility] Last Admin: 03/16/18 17:33 Dose: 1 applic Neomycin/Polymyxin/Bacitracin (Neosporin Triple Antibiotic Oint) 0 gm TOP Q24H [facility] Last Admin: 03/16/18 17:33 Dose: 1 applic Pantoprazole Sodium (Protonix Susp) 40 mg PO DAILY [facility] Last Admin: 03/16/18 09:16 Dose: 40 mg Rosuvastatin Calcium (Crestor) 10 mg PO HS [facility] Last Admin: 03/15/18 21:55 Dose: 10 mg - Labs Labs: 03/15/18 08:18 03/15/18 08:18
--- NOTE | 2018-03-16 19:55 | PN ---
Copied To: Val Jones MD Attending MD: Val Jones MD DATE: 03/16/2018 SUBJECTIVE: Patient was seen today. She was very alert. She says she is feeling better and she was and she says her daughter just left. PHYSICAL EXAMINATION: VITAL SIGNS: T-max was 97.5, pulse 84, blood pressure 135/81, and respirations are 18. HEAD: Atraumatic. NECK: Supple. LUNGS: Clear. No crackles or rales present. HEART: S1, S2 is regular. ABDOMEN: The PEG tube site was with a dressing. There is still redness but there is no leakage, no bleeding from the site. Slightly improved but not totally and still has redness localized there. Abdomen is otherwise soft and nontender. Bowel sounds are present. EXTREMITIES: No edema. 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 So, at this time, patient is on meropenem. Patient is slightly better. She came in with gastrostomy tube infection and sepsis and she is getting neomycin to the wound and she remains on Tygacil, vancomycin, and is on Mycamine now. She was on Diflucan until this morning. We will continue these and see how she is doing on Sunday. Then, we will decide about further plan. We will follow. Val Jones MD
[2018-03-16] MEDS: (Lantus) Insulin Glargine, Recombinant SC SCH (21:19)
[2018-03-16] MEDS: Micafungin 100 MG in Sodium Chloride 0.9% 100 ML IV SCH (21:22)
[2018-03-17] MEDS: Albuterol-Ipratrop 3 mg / 0.5 (3 ml) UD INH SCH ×3 (01:27→20:01)
[2018-03-17] MEDS: (Novolog) Insulin Aspart, Recombinant 100 u/ml 10 ml vial SC SCH ×4 (07:59→22:44)
[2018-03-17] MEDS: Pantoprazole 40 mg Susp UD PO SCH (11:05)
[2018-03-17] MEDS: Vancomycin 1 gm/NS 200 ml 1 GM/200 ML BAG IVPB SCH (11:07)
[2018-03-17] MEDS: Bacitracin/Neomycin/Polymyxin Oint(30GM) TOP SCH (18:37)
--- NOTE | 2018-03-17 21:36 | CP.PCM.PN ---
Subjective - Date & Time of Evaluation Date of Evaluation: 03/17/18 Time of Evaluation: 21:35 - Subjective Subjective: sleeping now comfortable doing ok less cough will continue antibiotic Objective - Vital Signs/Intake and Output Vital Signs (last 24 hours): Temp Pulse Resp BP Pulse Ox 97.5 F L 70 20 138/65 100 03/17/18 16:00 03/17/18 16:00 03/17/18 16:00 03/17/18 16:00 03/17/18 16:00 Intake and Output: 03/17/18 03/18/18 18:59 06:59 Output Total 600 Balance -600 - Medications Medications: Current Medications Acetaminophen (Tylenol 650 Mg Supp) 650 mg [place] Q6 PRN PRN Reason: Fever >100.4 F Albuterol/Ipratropium (Duoneb 3 Mg/0.5 Mg (3 Ml) Ud) 3 ml INH RQ6 [facility] Aspirin (Aspirin Chewable) 81 mg PO DAILY [facility] Last Admin: 03/17/18 11:05 Dose: 81 mg Diltiazem HCl (Cardizem) 30 mg PO QID [facility] Last Admin: 03/17/18 18:36 Dose: 30 mg Heparin Sodium (Porcine) (Heparin) 5,000 units SC Q12 [facility] Last Admin: 03/17/18 11:05 Dose: 5,000 units Tigecycline 50 mg/ Sodium (Chloride) 100 mls @ 100 mls/hr IVPB Q12H [facility] PRN Reason: Protocol Last Admin: 03/17/18 12:31 Dose: 100 mls/hr Vancomycin/Sodium Chloride (Vancomycin 1 Gm/Ns 200 Ml) 1 gm in 200 mls @ 166.7 mls/hr IVPB Q24H [facility] PRN Reason: Protocol Stop: 03/18/18 09:31 Last Admin: 03/17/18 11:07 Dose: 166.7 mls/hr Micafungin Sodium 100 mg/ (Sodium Chloride) 100 mls @ 100 mls/hr IV Q24H [facility] PRN Reason: Protocol Last Admin: 03/16/18 21:22 Dose: 100 mls/hr Insulin Aspart (Novolog) 0 unit SC ACHS [facility] PRN Reason: Protocol Last Admin: 03/17/18 18:37 Dose: 4 units Insulin Glargine (Lantus) 15 unit SC HS [facility] Last Admin: 03/16/18 21:19 Dose: 15 units Isosorbide Mononitrate (Imdur) 60 mg PO DAILY [facility] Last Admin: 03/14/18 10:05 Dose: 60 mg Metoprolol Tartrate (Lopressor) 50 mg PO BID [facility] Last Admin: 03/17/18 18:36 Dose: 50 mg Mupirocin (Bactroban Ointment) 0 gm TOP BID [facility] Last Admin: 03/17/18 18:38 Dose: 1 applic Neomycin/Polymyxin/Bacitracin (Neosporin Triple Antibiotic Oint) 0 gm TOP Q24H [facility] Last Admin: 03/17/18 18:37 Dose: 1 applic Pantoprazole Sodium (Protonix Susp) 40 mg PO DAILY [facility] Last Admin: 03/17/18 11:05 Dose: 40 mg Rosuvastatin Calcium (Crestor) 10 mg PO HS [facility] Last Admin: 03/16/18 21:19 Dose: 10 mg - Labs Labs: 03/15/18 08:18 03/15/18 08:18
[2018-03-17] MEDS: (Lantus) Insulin Glargine, Recombinant SC SCH (22:32)
[2018-03-17] MEDS: Micafungin 100 MG in Sodium Chloride 0.9% 100 ML IV SCH (22:37)
[2018-03-18] MEDS: Albuterol-Ipratrop 3 mg / 0.5 (3 ml) UD INH SCH ×4 (01:34→19:43)
[2018-03-18 07:20] LABS: BASO # 0.2 K/uL (0.0-0.2); EOS # 0.6 K/uL (0.0-0.7)
[2018-03-18 08:00] LABS: ALB/GLOB RATIO 0.9 (1.0-2.1); ALBUMIN 3.3 g/dL (3.5-5.0); ALT/SGPT 14 U/L (9-52); AST/SGOT 56 U/L (14-36); BLOOD UREA NITROGEN 34 mg/dL (7-17); CALCIUM 9.2 mg/dl (8.6-10.4); GFR NON-AFRICAN AMERICAN > 60
[2018-03-18 08:08] LABS: BASO % 1.3 % (0.0-2.0); EOS % 4.7 % (0.0-4.0); HEMOGLOBIN 12.6 g/dL (11.0-16.0); LYMPH # 2.4 K/uL (1.0-4.3); MEAN CELL VOLUME 92.4 fL (81.0-99.0); MEAN CORPUSCULAR HEMOGLOBIN 30.4 pg (27.0-31.0); MEAN PLATELET VOLUME 10.1 fL (7.2-11.7); MONO # 0.9 K/uL (0.0-0.8); NEUT # 8.5 K/uL (1.8-7.0); NRBC % 0.7 % (0.0-2.0); RBC 4.14 Mil/uL (3.80-5.20); WHITE BLOOD COUNT 12.5 K/uL (4.8-10.8)
[2018-03-18] MEDS: Pantoprazole 40 mg Susp UD PO SCH (09:28)
[2018-03-18] MEDS: Vancomycin 1 gm/NS 200 ml 1 GM/200 ML BAG IVPB SCH (09:28)
[2018-03-18] MEDS: (Novolog) Insulin Aspart, Recombinant 100 u/ml 10 ml vial SC SCH ×4 (09:29→21:31)
[2018-03-18] MEDS: Bacitracin/Neomycin/Polymyxin Oint(30GM) TOP SCH (18:02)
--- NOTE | 2018-03-18 20:52 | CP.PCM.PN ---
Subjective - Date & Time of Evaluation Date of Evaluation: 03/18/18 Time of Evaluation: 17:55 - Subjective Subjective: dictated Objective - Vital Signs/Intake and Output Vital Signs (last 24 hours): Temp Pulse Resp BP Pulse Ox 97.4 F L 79 18 153/82 H 98 03/18/18 16:00 03/18/18 16:00 03/18/18 16:00 03/18/18 16:00 03/18/18 16:00 - Medications Medications: Current Medications Acetaminophen (Tylenol 650 Mg Supp) 650 mg [place] Q6 PRN PRN Reason: Fever >100.4 F Albuterol/Ipratropium (Duoneb 3 Mg/0.5 Mg (3 Ml) Ud) 3 ml INH RQ6 [facility] Last Admin: 03/18/18 19:43 Dose: 3 ml Aspirin (Aspirin Chewable) 81 mg PO DAILY [facility] Last Admin: 03/18/18 09:29 Dose: 81 mg Diltiazem HCl (Cardizem) 30 mg PO QID [facility] Last Admin: 03/18/18 18:02 Dose: 30 mg Heparin Sodium (Porcine) (Heparin) 5,000 units SC Q12 [facility] Last Admin: 03/18/18 09:28 Dose: 5,000 units Tigecycline 50 mg/ Sodium (Chloride) 100 mls @ 100 mls/hr IVPB Q12H [facility] PRN Reason: Protocol Last Admin: 03/18/18 12:17 Dose: 100 mls/hr Micafungin Sodium 100 mg/ (Sodium Chloride) 100 mls @ 100 mls/hr IV Q24H [facility] PRN Reason: Protocol Last Admin: 03/17/18 22:37 Dose: 100 mls/hr Insulin Aspart (Novolog) 0 unit SC ACHS [facility] PRN Reason: Protocol Last Admin: 03/18/18 17:26 Dose: Not Given Insulin Glargine (Lantus) 15 unit SC HS [facility] Last Admin: 03/17/18 22:32 Dose: 15 units Isosorbide Mononitrate (Imdur) 60 mg PO DAILY [facility] Last Admin: 03/14/18 10:05 Dose: 60 mg Metoprolol Tartrate (Lopressor) 50 mg PO BID [facility] Last Admin: 03/18/18 18:02 Dose: 50 mg Mupirocin (Bactroban Ointment) 0 gm TOP BID [facility] Last Admin: 03/18/18 18:03 Dose: 1 applic Neomycin/Polymyxin/Bacitracin (Neosporin Triple Antibiotic Oint) 0 gm TOP Q24H [facility] Last Admin: 03/18/18 18:02 Dose: 1 applic Pantoprazole Sodium (Protonix Susp) 40 mg PO DAILY [facility] Last Admin: 03/18/18 09:28 Dose: 40 mg Rosuvastatin Calcium (Crestor) 10 mg PO HS [facility] Last Admin: 03/17/18 22:32 Dose: 10 mg - Labs Labs: 03/18/18 07:07 03/18/18 07:07
[2018-03-18] MEDS: Micafungin 100 MG in Sodium Chloride 0.9% 100 ML IV SCH (20:58)
[2018-03-18] MEDS: (Lantus) Insulin Glargine, Recombinant SC SCH ×2 (21:31→21:38)
--- NOTE | 2018-03-19 02:09 | PN ---
Copied To: Val Jones MD Attending MD: Val Jones MD DATE: 03/18/2018 SUBJECTIVE: The patient remains awake, alert. She follows simple commands. I went to see her today, and she is afebrile. They want to send her back to rehab. PHYSICAL EXAMINATION: VITAL SIGNS: T-max is 97.4, blood pressure 153/82, respirations are 18, heart rate is 79. HEENT: Head is atraumatic, normocephalic. NECK: Supple. LUNGS: Clear. HEART: S1, S2 are regular. ABDOMEN: Soft. PEG tube site appeared with redness, there is no drainage, but the redness has not improved much. ASSESSMENT AND PLAN: She has been getting vancomycin, Tygacil, and micafungin here, and plan is to discharge her, but I am not sure if her gastrostomy tube will improve. If it does not, then they may have to stop the feeding and make another gastrostomy hole and keep her on total parenteral nutrition for some time. Plan was discussed with the primary and he says that he had been very acutely ill in the past and may not be able to take the whole endeavor. At this time, the culture showed Klebsiella, Enterococcus and Yamile. I will put her on Cipro and Diflucan. She can probably go back to the correction. Val Jones MD
[2018-03-19] MEDS: Albuterol-Ipratrop 3 mg / 0.5 (3 ml) UD INH SCH ×4 (02:42→20:37)
[2018-03-19] MEDS: (Novolog) Insulin Aspart, Recombinant 100 u/ml 10 ml vial SC SCH ×4 (08:06→21:37)
[2018-03-19] MEDS: Pantoprazole 40 mg Susp UD PO SCH (10:13)
[2018-03-19] MEDS: Bacitracin/Neomycin/Polymyxin Oint(30GM) TOP SCH (17:36)
--- NOTE | 2018-03-19 20:52 | CP.PCM.PN ---
Subjective - Date & Time of Evaluation Date of Evaluation: 03/18/18 Time of Evaluation: 20:51 - Subjective Subjective: Patient is currently feeling well. Awake and responding, complaining of some pain abdominal area Elevated sugar noted Clicker examination is remarkable for bilaterally wheezing Regular heart sound Edema in the legs Labs normal otherwise. Continue the current treatment. Will get ID follow-up for possible discharge plan Objective - Vital Signs/Intake and Output Vital Signs (last 24 hours): Temp Pulse Resp BP Pulse Ox 97.5 F L 78 20 105/64 97 03/19/18 16:00 03/19/18 16:00 03/19/18 16:00 03/19/18 16:00 03/19/18 16:00 Intake and Output: 03/19/18 03/20/18 18:59 06:59 Output Total 200 Balance -200 - Medications Medications: Current Medications Acetaminophen (Tylenol 650 Mg Supp) 650 mg [place] Q6 PRN PRN Reason: Fever >100.4 F Albuterol/Ipratropium (Duoneb 3 Mg/0.5 Mg (3 Ml) Ud) 3 ml INH RQ6 [facility] Last Admin: 03/19/18 20:37 Dose: Not Given Aspirin (Aspirin Chewable) 81 mg PO DAILY [facility] Last Admin: 03/19/18 10:13 Dose: 81 mg Ciprofloxacin (Cipro) 250 mg PO BID [facility] PRN Reason: Protocol Last Admin: 03/19/18 17:34 Dose: 250 mg Diltiazem HCl (Cardizem) 30 mg PO QID [facility] Last Admin: 03/19/18 17:34 Dose: 30 mg Fluconazole (Diflucan) 100 mg PO DAILY [facility] PRN Reason: Protocol Last Admin: 03/19/18 10:14 Dose: 100 mg Insulin Aspart (Novolog) 0 unit SC ACHS [facility] PRN Reason: Protocol Last Admin: 03/19/18 11:39 Dose: 4 units Insulin Glargine (Lantus) 15 unit SC HS [facility] Last Admin: 03/18/18 21:38 Dose: 15 units Isosorbide Mononitrate (Imdur) 60 mg PO DAILY [facility] Last Admin: 03/14/18 10:05 Dose: 60 mg Metoprolol Tartrate (Lopressor) 50 mg PO BID [facility] Last Admin: 03/19/18 17:34 Dose: 50 mg Mupirocin (Bactroban Ointment) 0 gm TOP BID [facility] Last Admin: 03/19/18 17:36 Dose: 1 applic Neomycin/Polymyxin/Bacitracin (Neosporin Triple Antibiotic Oint) 0 gm TOP Q24H [facility] Last Admin: 03/19/18 17:36 Dose: 1 applic Pantoprazole Sodium (Protonix Susp) 40 mg PO DAILY [facility] Last Admin: 03/19/18 10:13 Dose: 40 mg Rosuvastatin Calcium (Crestor) 10 mg PO HS [facility] Last Admin: 03/18/18 21:32 Dose: 10 mg - Labs Labs: 03/18/18 07:07 03/18/18 07:07
--- NOTE | 2018-03-19 20:53 | CP.PCM.PN ---
Subjective - Date & Time of Evaluation Date of Evaluation: 03/19/18 Time of Evaluation: 20:52 - Subjective Subjective: Patient is currently awake and responding. Weakness noted. Less cough Clinical examination is vital signs stable Will continue the current treatment. Check the labs tomorrow. Possible discharge plan tomorrow Objective - Vital Signs/Intake and Output Vital Signs (last 24 hours): Temp Pulse Resp BP Pulse Ox 97.5 F L 78 20 105/64 97 03/19/18 16:00 03/19/18 16:00 03/19/18 16:00 03/19/18 16:00 03/19/18 16:00 Intake and Output: 03/19/18 03/20/18 18:59 06:59 Output Total 200 Balance -200 - Medications Medications: Current Medications Acetaminophen (Tylenol 650 Mg Supp) 650 mg [place] Q6 PRN PRN Reason: Fever >100.4 F Albuterol/Ipratropium (Duoneb 3 Mg/0.5 Mg (3 Ml) Ud) 3 ml INH RQ6 [facility] Last Admin: 03/19/18 20:37 Dose: Not Given Aspirin (Aspirin Chewable) 81 mg PO DAILY [facility] Last Admin: 03/19/18 10:13 Dose: 81 mg Ciprofloxacin (Cipro) 250 mg PO BID [facility] PRN Reason: Protocol Last Admin: 03/19/18 17:34 Dose: 250 mg Diltiazem HCl (Cardizem) 30 mg PO QID [facility] Last Admin: 03/19/18 17:34 Dose: 30 mg Fluconazole (Diflucan) 100 mg PO DAILY [facility] PRN Reason: Protocol Last Admin: 03/19/18 10:14 Dose: 100 mg Insulin Aspart (Novolog) 0 unit SC ACHS [facility] PRN Reason: Protocol Last Admin: 03/19/18 11:39 Dose: 4 units Insulin Glargine (Lantus) 15 unit SC HS [facility] Last Admin: 03/18/18 21:38 Dose: 15 units Isosorbide Mononitrate (Imdur) 60 mg PO DAILY [facility] Last Admin: 03/14/18 10:05 Dose: 60 mg Metoprolol Tartrate (Lopressor) 50 mg PO BID [facility] Last Admin: 03/19/18 17:34 Dose: 50 mg Mupirocin (Bactroban Ointment) 0 gm TOP BID [facility] Last Admin: 03/19/18 17:36 Dose: 1 applic Neomycin/Polymyxin/Bacitracin (Neosporin Triple Antibiotic Oint) 0 gm TOP Q24H [facility] Last Admin: 03/19/18 17:36 Dose: 1 applic Pantoprazole Sodium (Protonix Susp) 40 mg PO DAILY [facility] Last Admin: 03/19/18 10:13 Dose: 40 mg Rosuvastatin Calcium (Crestor) 10 mg PO HS [facility] Last Admin: 03/18/18 21:32 Dose: 10 mg - Labs Labs: 03/18/18 07:07 03/18/18 07:07
[2018-03-19] MEDS: (Lantus) Insulin Glargine, Recombinant SC SCH (21:21)
--- NOTE | 2018-03-19 21:39 | CP.PCM.PN ---
Subjective - Date & Time of Evaluation Date of Evaluation: 03/19/18 Time of Evaluation: 14:20 - Subjective Subjective: dictated Objective - Vital Signs/Intake and Output Vital Signs (last 24 hours): Temp Pulse Resp BP Pulse Ox 97.5 F L 78 20 105/64 97 03/19/18 16:00 03/19/18 16:00 03/19/18 16:00 03/19/18 16:00 03/19/18 16:00 Intake and Output: 03/19/18 03/20/18 18:59 06:59 Output Total 200 Balance -200 - Medications Medications: Current Medications Acetaminophen (Tylenol 650 Mg Supp) 650 mg [place] Q6 PRN PRN Reason: Fever >100.4 F Albuterol/Ipratropium (Duoneb 3 Mg/0.5 Mg (3 Ml) Ud) 3 ml INH RQ6 [facility] Last Admin: 03/19/18 20:37 Dose: Not Given Aspirin (Aspirin Chewable) 81 mg PO DAILY [facility] Last Admin: 03/19/18 10:13 Dose: 81 mg Ciprofloxacin (Cipro) 250 mg PO BID [facility] PRN Reason: Protocol Last Admin: 03/19/18 17:34 Dose: 250 mg Diltiazem HCl (Cardizem) 30 mg PO QID [facility] Last Admin: 03/19/18 21:21 Dose: 30 mg Fluconazole (Diflucan) 100 mg PO DAILY [facility] PRN Reason: Protocol Last Admin: 03/19/18 10:14 Dose: 100 mg Insulin Aspart (Novolog) 0 unit SC ACHS [facility] PRN Reason: Protocol Last Admin: 03/19/18 21:37 Dose: Not Given Insulin Glargine (Lantus) 15 unit SC HS [facility] Last Admin: 03/19/18 21:21 Dose: 15 units Isosorbide Mononitrate (Imdur) 60 mg PO DAILY [facility] Last Admin: 03/14/18 10:05 Dose: 60 mg Metoprolol Tartrate (Lopressor) 50 mg PO BID [facility] Last Admin: 03/19/18 17:34 Dose: 50 mg Mupirocin (Bactroban Ointment) 0 gm TOP BID [facility] Last Admin: 03/19/18 17:36 Dose: 1 applic Neomycin/Polymyxin/Bacitracin (Neosporin Triple Antibiotic Oint) 0 gm TOP Q24H [facility] Last Admin: 03/19/18 17:36 Dose: 1 applic Pantoprazole Sodium (Protonix Susp) 40 mg PO DAILY [facility] Last Admin: 03/19/18 10:13 Dose: 40 mg Rosuvastatin Calcium (Crestor) 10 mg PO HS [facility] Last Admin: 03/19/18 21:21 Dose: 10 mg - Labs Labs: 03/18/18 07:07 03/18/18 07:07
[2018-03-20] MEDS: Albuterol-Ipratrop 3 mg / 0.5 (3 ml) UD INH SCH ×4 (01:22→19:55)
--- NOTE | 2018-03-20 03:15 | PN ---
Copied To: Val Jones MD Attending MD: Val Jones MD DATE: 03/19/2018 SUBJECTIVE: The patient was seen today. She was awake, alert. She did not give any complaints. Her daughter was at the bedside and I told her that her infection in the tube will take time to heal and it may not heal as there is always liquid going through and can cause infection and inflammation. At this time I had switched over her to oral antibiotics so that she could go back to the rehab, and she wants Dr. Patel to take care of the patient. The patient remains on oral antibiotics, fluconazole and Cipro 250 b.i.d., and she is on mupirocin to the chest tube site along with the Neosporin triple antibiotic cream. I think, I am going to add Lotrimin cream; so to continue that at this time, and I would give Diflucan p.o. and then we will follow. The patient has a GT tube site infection, and she is very weak and frail. She has history of esophageal diseases and is going to go to rehab for further oral antibiotics. Val Jones MD
[2018-03-20 08:04] LABS: ALB/GLOB RATIO 0.9 (1.0-2.1); ALBUMIN 2.9 g/dL (3.5-5.0); ALT/SGPT 33 U/L (9-52); AST/SGOT 20 U/L (14-36); BLOOD UREA NITROGEN 26 mg/dL (7-17); CALCIUM 9.4 mg/dl (8.6-10.4); GFR NON-AFRICAN AMERICAN > 60
[2018-03-20] MEDS: (Novolog) Insulin Aspart, Recombinant 100 u/ml 10 ml vial SC SCH ×4 (08:05→23:00)
[2018-03-20] MEDS: Pantoprazole 40 mg Susp UD PO SCH (10:15)
[2018-03-20] MEDS: Bacitracin/Neomycin/Polymyxin Oint(30GM) TOP SCH ×2 (10:18→17:30)
[2018-03-20 12:04] LABS: BASO # 0.1 K/uL (0.0-0.2); BASO % 0.8 % (0.0-2.0); EOS # 0.5 K/uL (0.0-0.7); EOS % 4.3 % (0.0-4.0); HEMOGLOBIN 12.8 g/dL (11.0-16.0); LYMPH % 18.1 % (20.0-40.0); MEAN CELL VOLUME 91.6 fL (81.0-99.0); MEAN CORPUSCULAR HEMOGLOBIN 31.8 pg (27.0-31.0); MEAN CORPUSCULAR HGB CONC 34.8 g/dL (33.0-37.0); MEAN PLATELET VOLUME 9.1 fL (7.2-11.7); MONO # 1.2 K/uL (0.0-0.8); MONO % 11.1 % (0.0-10.0); NEUT # 7.3 K/uL (1.8-7.0); NEUT % 65.7 % (50.0-75.0); NRBC % 0.2 % (0.0-2.0); RBC 4.02 Mil/uL (3.80-5.20)
[2018-03-20] MEDS: (Lantus) Insulin Glargine, Recombinant SC SCH (22:47)
[2018-03-21] MEDS: Albuterol-Ipratrop 3 mg / 0.5 (3 ml) UD INH SCH ×4 (01:39→19:25)
--- NOTE | 2018-03-21 04:14 | PN ---
Copied To: Val Jones MD Attending MD: Val Jones MD DATE: 03/20/2018 SUBJECTIVE: The patient says she is feeling better. PHYSICAL EXAMINATION: VITAL SIGNS: The patient's T-max is 97.4, pulse is 87, blood pressure is 121/73, and respirations are 20. HEENT: Head is atraumatic and normocephalic. NECK: Supple. LUNGS: Have occasional rhonchi. HEART: S1, S2 present. ABDOMEN: She has a PEG-tube which has a dressing at this time. I did not open at this time, and she is getting treatment with IV antibiotics. EXTREMITIES: Have no edema. She did have a Gregory catheter at this time. Labs were noted. Today, labs show white count is 11, hemoglobin 12.8, hematocrit 36.8, platelet count is 260, BUN is 26, and creatinine 0.6. She is on Cipro as well as fluconazole and we were treating GT tube site infection, and she is on mupirocin to the wound, and we will follow. Micro sauceda, her wound culture grew Klebsiella, enterococcus, and Yamile lusitaniae. I am hoping it would heal. Otherwise, it will need a separate hole for the gastrostomy tube. We will follow until the patient is here. Val Jones MD
[2018-03-21] MEDS: (Novolog) Insulin Aspart, Recombinant 100 u/ml 10 ml vial SC SCH ×4 (07:59→22:50)
[2018-03-21 08:24] LABS: HEMOGLOBIN 12.5 g/dL (11.0-16.0); MEAN CELL VOLUME 91.4 fL (81.0-99.0); MEAN CORPUSCULAR HEMOGLOBIN 31.6 pg (27.0-31.0); MEAN CORPUSCULAR HGB CONC 34.6 g/dL (33.0-37.0); MEAN PLATELET VOLUME 8.2 fL (7.2-11.7); RBC 3.95 Mil/uL (3.80-5.20); RED CELL DISTRIBUTION WIDTH 15.9 % (11.5-14.5); WHITE BLOOD COUNT 10.7 K/uL (4.8-10.8)
[2018-03-21 08:46] LABS: BLOOD UREA NITROGEN 19 mg/dL (7-17); CALCIUM 9.2 mg/dl (8.6-10.4); GFR NON-AFRICAN AMERICAN > 60
[2018-03-21] MEDS ORDERED: Sodium Chloride 0.9% 1,000 ML IV SCH (09:00)
[2018-03-21] MEDS: Pantoprazole 40 mg Susp UD PO SCH (10:55)
[2018-03-21] MEDS ORDERED: Acetaminophen 650mg/20.3ml solution UD PO PRN (16:19)
[2018-03-21 17:14] LABS: BLOOD UREA NITROGEN 17 mg/dL (7-17); CALCIUM 10.1 mg/dl (8.6-10.4); GFR NON-AFRICAN AMERICAN > 60
[2018-03-21] MEDS: Bacitracin/Neomycin/Polymyxin Oint(30GM) TOP SCH (17:29)
[2018-03-21] MEDS: (Lantus) Insulin Glargine, Recombinant SC SCH (22:50)
[2018-03-22 00:46] VITALS: O2SAT 100
[2018-03-22] MEDS: Albuterol-Ipratrop 3 mg / 0.5 (3 ml) UD INH SCH ×3 (01:42→13:38)
[2018-03-22 07:56] VITALS: RESP 18
[2018-03-22] MEDS: (Novolog) Insulin Aspart, Recombinant 100 u/ml 10 ml vial SC SCH ×3 (08:16→17:21)
[2018-03-22] MEDS: Pantoprazole 40 mg Susp UD PO SCH (10:14)
--- NOTE | 2018-03-22 14:52 | CP.PCM.PN ---
Subjective - Date & Time of Evaluation Date of Evaluation: 03/22/18 Time of Evaluation: 14:49 - Subjective Subjective: OK PER DR. PORRAS TO D/C TO [facility] TODAY. ALL D/C PAPERWORK UPDATED. HANSEN TO BE REMOVED PRIOR TO D/C. SW TO ARRANGE TRANSPORTATION. NO FURTHER ORDERS. -CONTACT ATTENDING PHYSICIAN FOR ADMITTING ORDERS. -CONTINUE ALL MEDICATIONS PER THE MED REC FORM. -PER DR. ROWE (ID), CONTINUE THE FOLLOWIN) CIPRO 250 MG PO BID X10 DAYS (STARTED ON 03/20/18 AND LAST DOSE TO BE GIVEN ON 03/29/18) AND DIFLUCAN 100 MG PO DAILY X10 DAYS (STARTED ON 03/20/18 AND LAST DOSE TO BE GIVEN ON 03/29/18). 2) REPEAT CBC AND CMP EVERY 3 DAYS (START ON 03/21/18)---NOTIFY ATTENDING OF RESULTS. -CONTINUE PEG SITE CARE PER ATTENDING ORDERS. -FOR FURTHER ORDERS, QUESTIONS, CALL ATTENDING. Objective - Vital Signs/Intake and Output Vital Signs (last 24 hours): Temp Pulse Resp BP Pulse Ox 97.8 F 90 18 141/80 100 03/22/18 07:00 03/22/18 07:00 03/22/18 07:00 03/22/18 07:00 03/22/18 07:00 Intake and Output: 03/22/18 03/22/18 06:59 18:59 Intake Total 1340 Output Total 1500 Balance -160 - Medications Medications: Current Medications Acetaminophen (Tylenol 650mg/20.3ml Solution Ud) 650 mg PO Q4H PRN PRN Reason: Headache Last Admin: 03/21/18 17:27 Dose: 650 mg Albuterol/Ipratropium (Duoneb 3 Mg/0.5 Mg (3 Ml) Ud) 3 ml INH RQ6 [facility] Last Admin: 03/22/18 13:38 Dose: 3 ml Aspirin (Aspirin Chewable) 81 mg PO DAILY [facility] Last Admin: 03/22/18 10:13 Dose: 81 mg Ciprofloxacin (Cipro) 250 mg PO BID [facility] PRN Reason: Protocol Last Admin: 03/22/18 10:13 Dose: 250 mg Diltiazem HCl (Cardizem) 30 mg PO QID [facility] Last Admin: 03/22/18 14:28 Dose: 30 mg Fluconazole (Diflucan) 100 mg PO DAILY [facility] PRN Reason: Protocol Last Admin: 03/22/18 10:13 Dose: 100 mg Insulin Aspart (Novolog) 0 unit SC [facility] PRN Reason: Protocol Last Admin: 03/22/18 11:53 Dose: 6 units Insulin Glargine (Lantus) 15 unit SC [facility] Last Admin: 03/21/18 22:50 Dose: Not Given Isosorbide Mononitrate (Imdur) 60 mg PO DAILY [facility] Last Admin: 03/14/18 10:05 Dose: 60 mg Metoprolol Tartrate (Lopressor) 50 mg PO BID [facility] Last Admin: 03/22/18 10:14 Dose: 50 mg Mupirocin (Bactroban Ointment) 0 gm TOP BID [facility] Last Admin: 03/22/18 10:14 Dose: 1 applic Neomycin/Polymyxin/Bacitracin (Neosporin Triple Antibiotic Oint) 0 gm TOP Q24H [facility] Last Admin: 03/21/18 17:29 Dose: 1 applic Pantoprazole Sodium (Protonix Susp) 40 mg PO DAILY [facility] Last Admin: 03/22/18 10:14 Dose: 40 mg Rosuvastatin Calcium (Crestor) 10 mg PO [facility] Last Admin: 03/21/18 22:50 Dose: Not Given - Labs Labs: 03/21/18 08:14 03/21/18 16:50
[2018-03-22 17:19] VITALS: BP 149/77; PULSE 97; TEMP 97.9
--- NOTE | 2018-04-01 21:16 | CP.PCM.DIS ---
Provider - Provider Date of Admission: 03/11/18 22:02 Attending physician: Luis Manuel Patel MD Hospital Course - Lab Results Lab Results: Micro Results 03/11/18 21:00 Blood-Venous Blood Culture - Final NO GROWTH AFTER 5 DAYS 03/11/18 21:00 Blood-Venous Gram Stain - Final TEST NOT PERFORMED 03/11/18 20:30 Blood-Venous Blood Culture - Final NO GROWTH AFTER 5 DAYS 03/11/18 20:30 Blood-Venous Gram Stain - Final TEST NOT PERFORMED 03/12/18 19:14 Peg Site Gram Stain - Final 03/12/18 19:14 Peg Site Wound Culture - Final Klebsiella Ozaenae Enterococcus Faecalis Yamile Lusitaniae 03/11/18 22:02 Urine,Catheterized Urine Culture - Final No Growth (<1,000 CFU/ML) Most Recent Lab Values WBC 10.7 K/uL (4.8-10.8) 03/21/18 08:14 RBC 3.95 Mil/uL (3.80-5.20) 03/21/18 08:14 Hgb 12.5 g/dL (11.0-16.0) 03/21/18 08:14 Hct 36.1 % (34.0-47.0) 03/21/18 08:14 MCV 91.4 fL (81.0-99.0) 03/21/18 08:14 MCH 31.6 pg (27.0-31.0) H 03/21/18 08:14 MCHC 34.6 g/dL (33.0-37.0) 03/21/18 08:14 RDW 15.9 % (11.5-14.5) H 03/21/18 08:14 Plt Count 280 K/uL (130-400) 03/21/18 08:14 MPV 8.2 fL (7.2-11.7) 03/21/18 08:14 Neut % (Auto) 65.7 % (50.0-75.0) 03/20/18 11:47 Lymph % (Auto) 18.1 % (20.0-40.0) L 03/20/18 11:47 [place] % (Auto) 11.1 % (0.0-10.0) H 03/20/18 11:47 Eos % (Auto) 4.3 % (0.0-4.0) H 03/20/18 11:47 Baso % (Auto) 0.8 % (0.0-2.0) 03/20/18 11:47 Neut # (Auto) 7.3 K/uL (1.8-7.0) H 03/20/18 11:47 Lymph # (Auto) 2.0 K/uL (1.0-4.3) 03/20/18 11:47 [place] # (Auto) 1.2 K/uL (0.0-0.8) H 03/20/18 11:47 Eos # (Auto) 0.5 K/uL (0.0-0.7) 03/20/18 11:47 Baso # (Auto) 0.1 K/uL (0.0-0.2) 03/20/18 11:47 pO2 50 mm/Hg (30-55) 03/11/18 19:36 VBG pH 7.41 (7.32-7.43) 03/11/18 19:36 VBG pCO2 41 mmHg (40-60) 03/11/18 19:36 VBG HCO3 25.5 mmol/L 03/11/18 19:36 VBG Total CO2 27.3 mmol/L (22-28) 03/11/18 19:36 VBG O2 Sat (Calc) 90.1 % (40-65) H 03/11/18 19:36 VBG Base Excess 1.2 mmol/L (0.0-2.0) 03/11/18 19:36 VBG Potassium 4.7 mmol/L (3.6-5.2) 03/11/18 19:36 Sodium 144.0 mmol/l (132-148) 03/11/18 19:36 Chloride 100.0 mmol/L (98-107) 03/11/18 19:36 Glucose 582 mg/dl (65-105) H* D 03/11/18 19:36 Lactate 7.8 mmol/L (0.7-2.1) H* 03/11/18 19:36 Crit Value Called To Alondra marina rn er 03/11/18 19:36 Crit Value Called By Ban 03/11/18 19:36 Crit Value Read Back Y 03/11/18 19:36 Blood Gas Notified Time 194203/11/18 19:36 Sodium 133 mmol/L (132-148) 03/21/18 16:50 Potassium 5.0 mmol/L (3.6-5.2) 03/21/18 16:50 Chloride 95 mmol/L (98-107) L 03/21/18 16:50 Carbon Dioxide 31 mmol/L (22-30) H 03/21/18 16:50 Anion Gap 12 (10-20) 03/21/18 16:50 BUN 17 mg/dL (7-17) 03/21/18 16:50 Creatinine 0.6 mg/dL (0.7-1.2) L 03/21/18 16:50 Est GFR ( Amer) > 60 03/21/18 16:50 Est GFR (Non-Af Amer) > 60 03/21/18 16:50 POC Glucose (mg/dL) 321 mg/dL (65-110) H 03/22/18 16:15 Random Glucose 192 mg/dL (65-105) H 03/21/18 16:50 Lactic Acid 2.1 mmol/L (0.7-2.1) 03/13/18 08:02 Calcium 10.1 mg/dl (8.6-10.4) 03/21/18 16:50 Phosphorus 3.1 mg/dL (2.5-4.5) 03/20/18 07:44 Magnesium 1.6 mg/dL (1.6-2.3) 03/20/18 07:44 Total Bilirubin 0.8 mg/dL (0.2-1.3) 03/20/18 07:44 AST 20 U/L (14-36) 03/20/18 07:44 ALT 33 U/L (9-52) 03/20/18 07:44 Alkaline Phosphatase 111 U/L (38-126) 03/20/18 07:44 Total Protein 6.1 g/dL (6.3-8.3) L 03/20/18 07:44 Albumin 2.9 g/dL (3.5-5.0) L 03/20/18 07:44 Globulin 3.2 gm/dL (2.2-3.9) 03/20/18 07:44 Albumin/Globulin Ratio 0.9 (1.0-2.1) L 03/20/18 07:44 Lipase 139 U/L (23-300) 03/11/18 19:30 Venous Blood Potassium 4.7 mmol/L (3.6-5.2) 03/11/18 19:36 Urine Color Yellow (YELLOW) 03/11/18 22:19 Urine Clarity Hazy (Clear) 03/11/18 22:19 Urine pH 5.0 (5.0-8.0) 03/11/18 22:19 Ur Specific [place] 1.025 (1.003-1.030) 03/11/18 22:19 Urine Protein 2+ mg/dL (NEGATIVE) H 03/11/18 22:19 Urine Glucose (UA) 3+ mg/dL (Normal) H 03/11/18 22:19 Urine Ketones Negative mg/dL (NEGATIVE) 03/11/18 22:19 Urine Blood Negative (NEGATIVE) 03/11/18 22:19 Urine Nitrate Negative (NEGATIVE) 03/11/18 22:19 Urine Bilirubin Negative (NEGATIVE) 03/11/18 22:19 Urine Urobilinogen Normal mg/dL (0.2-1.0) 03/11/18 22:19 Ur Leukocyte Esterase Neg [place]/uL (Negative) 03/11/18 22:19 Urine WBC (Auto) 3 /hpf (0-5) 03/11/18:19 Urine RBC (Auto) < 1 /hpf (0-3) 03/11/18 22:19 Urine Bacteria Rare (<OCC) 03/11/18 22:19 Hyaline Casts >20 /lpf (0-2) H 03/11/18 22:19 Stool Occult Blood Negative (NEGATIVE) 03/11/18 20:45 - Hospital Course Hospital Course: 87-year-old female with a history of hypertension COPD CAD, CABG, hypercholesterolemia, osteoporosis, history of pneumonia, history of tracheostomy following aspiration pneumonitis. patient's daughter called me yesterday evening, her mother is not doing well, in the group home her blood sugar noted to be extremely elevated, and she was becoming more lethargic so she she is arranging to take her to the hospital. Patient last night in the emergency room was evaluated, initially admitted to Dr. Dennis's service. Family requested today, and as I know this patient family requested to take care of her. The patient is being transferred to my service today in the evening time. I examined the patient. She was complaining of minimal S will be. But she is feeling okay. Cough noted. More awake and responding. Patient has a feeding tube. But significant redness, and excoriation around the tube noted. No vomiting. Patient in the past had a significant achalasia cardia, following that because of the esophageal stricture patient underwent gastrostomy tube. But gastrostomy tube had a multiple times the problems, frequent infection. Upon arrival patient was having significantly elevated blood sugar level, and the elevated lactate noted. Patient was given IV fluids and admitted to the hospital. Past medical history as noted above Surgical history CABG, status post a tracheostomy, PEG tube, multiple esophageal dilatation followed by Botox injection for achalasia cardia. Allergy as noted above Personal history: Ex-smoker. Patient is currently in group home placement Review of system: Noted from the chart. Patient is responding well. But some respiratory distress noted. Abdominal distention minimally noted. Excoriation around the tube noted. Tracheostomy site healing On examination: Vital signs: Initial tachycardia and tachypnea noted. Currently patient has a heartbeat of 115. Blood pressure 132/78 saturation is 98% cannula Chest bilateral good air entry, expiratory wheezing noted irregular heart sound , nontender abdomen, edema negative Patient has a right hand nail changes. Patient's labs showing dehydration symptoms. Elevated calcium level noted. CBC improvement in the WBC noted. Lactate also elevated. chest x-ray showing no evidence of any acute changes. Assessment and recommendation: Patient is a 87-year-old female with a history of COPD, CAD, CABG, history of stent multiple times, aspiration pneumonia pneumonitis, status post a tracheostomy. Patient is on PEG tube. Admitted now with the severe lactic acidosis. Acute hypercalcemia Elevated BUN Most likely symptoms related to severe dehydration, and underlying uncontrolled diabetes. Patient will need continuous IV hydration. Underlying sepsis cannot be ruled out. Most likely patient has a PEG tube in foot site infection. Infectious disease evaluation may be needed. IV hydration. Glucose control. We will continue to monitor. I spoke to the patient's daughter. Will follow-up the patient DVT and GI prophylaxis Discharge Exam - Head Exam Head Exam: ATRAUMATIC, NORMOCEPHALIC Discharge Plan - Follow Up Plan Condition: FAIR Disposition: REHAB FACILITY/REHAB UNIT Instructions: Heart Failure, Adult (DC), Gastrointestinal Bleeding (DC), Hyperglycemia, Adult (DC), Gastrostomy, Permanent and Temporary (DC) Additional Instructions: -CONTACT ATTENDING PHYSICIAN FOR ADMITTING ORDERS. -CONTINUE ALL MEDICATIONS PER THE MED REC FORM. -PER DR. ROWE (ID), CONTINUE THE FOLLOWIN) CIPRO 250 MG PO BID X10 DAYS (STARTED ON 03/20/18 AND LAST DOSE TO BE GIVEN ON 03/29/18) AND DIFLUCAN 100 MG PO DAILY X10 DAYS (STARTED ON 03/20/18 AND LAST DOSE TO BE GIVEN ON 03/29/18). 2) REPEAT CBC AND CMP EVERY 3 DAYS (START ON 03/21/18)---NOTIFY ATTENDING OF RESULTS. -CONTINUE PEG SITE CARE PER ATTENDING ORDERS. -FOR FURTHER ORDERS, QUESTIONS, CALL ATTENDING. Referrals: Luis Manuel Patel MD [Staff Provider] - Val Rowe MD [Staff Provider] -
== END 2018-03-22 17:43 | DRG 872 ==
LOC: C.ER 18:39 → C.9E 22:02 → C.6T 22:37 → C.9E 22:41 → C.5S 22:53 → C.9E 22:53 → C.6T 03-12 01:38
PROVIDERS: ADMIT Internal Medicine; ATTEND Internal Medicine
DX: A41.9 Sepsis, unspecified organism (principal); E87.2 Acidosis; K92.2 Gastrointestinal hemorrhage, unspecified; K94.22 Gastrostomy infection; E11.65 Type 2 diabetes mellitus with hyperglycemia; E83.52 Hypercalcemia; E86.0 Dehydration; I11.0 Hypertensive heart disease with heart failure; I25.10 Atherosclerotic heart disease of native coronary artery without angina pectoris; I50.9 Heart failure, unspecified; J44.9 Chronic obstructive pulmonary disease, unspecified; K21.9 Gastro-esophageal reflux disease without esophagitis; M06.9 Rheumatoid arthritis, unspecified; Z79.4 Long term (current) use of insulin; Z87.891 Personal history of nicotine dependence; Z93.0 Tracheostomy status; Z95.0 Presence of cardiac pacemaker; Z95.1 Presence of aortocoronary bypass graft; Z95.5 Presence of coronary angioplasty implant and graft; F03.90 Unspecified dementia, unspecified severity, without behavioral disturbance, psychotic disturbance, mood disturbance, and anxiety

== ENCOUNTER 2018-05-07 08:24 | Inpatient (IN) | payer MEDICARE ==
[2018-05-07 08:24] VITALS: BMI 19.0
[2018-05-07 09:03] LABS: BASO # 0.2 K/uL (0.0-0.2); BASO % 1.1 % (0.0-2.0); EOS % 0.2 % (0.0-4.0); HEMOGLOBIN 11.4 g/dL (11.0-16.0); LYMPH # 2.8 K/uL (1.0-4.3); LYMPH % 12.4 % (20.0-40.0); MEAN CORPUSCULAR HEMOGLOBIN 31.9 pg (27.0-31.0); MEAN CORPUSCULAR HGB CONC 32.1 g/dL (33.0-37.0); MEAN PLATELET VOLUME 8.5 fL (7.2-11.7); MONO # 1.2 K/uL (0.0-0.8); MONO % 5.4 % (0.0-10.0); NEUT # 17.9 K/uL (1.8-7.0); NEUT % 80.9 % (50.0-75.0); RBC 3.57 Mil/uL (3.80-5.20); RED CELL DISTRIBUTION WIDTH 15.7 % (11.5-14.5)
[2018-05-07 09:04] LABS: VENOUS BLOOD GAS BASE EXCESS -0.7 mmol/L (0.0-2.0); VENOUS BLOOD GAS PCO2 40 mmHg (40-60); VENOUS BLOOD GAS PO2 34 mm/Hg (30-55); VENOUS BLOOD PH 7.39 (7.32-7.43)
[2018-05-07 09:05] LABS: WHITE BLOOD COUNT 22.2 K/uL (4.8-10.8)
[2018-05-07 09:06] LABS: MEAN CELL VOLUME 99.4 fL (81.0-99.0)
[2018-05-07] MEDS ORDERED: Sodium Chloride 0.9% 1,000 ML IV ONE ×2 (09:06→09:07)
[2018-05-07] MEDS ORDERED: Vancomycin 1 gm/NS 200 ml 1 GM/200 ML BAG IVPB STA (09:12)
[2018-05-07] MEDS ORDERED: Aztreonam 2 GM in Sodium Chloride 0.9% 100 ML IVPB STA (09:12)
[2018-05-07] MEDS ORDERED: Insulin Human Regular 100 UNIT in Sodium Chloride 0.9% 99 ML IV SCH ×2 (09:15→11:10)
[2018-05-07 09:53] LABS: URINE BILIRUBIN NEGATIVE (NEGATIVE); URINE BLOOD NEGATIVE (NEGATIVE); URINE CLARITY Clear (Clear); URINE COLOR Yellow (YELLOW); URINE GLUCOSE (UA) 3+ mg/dL (Normal); URINE LEUKOCYTE ESTERASE NEG Leu/uL (Negative); URINE PROTEIN NEGATIVE (NEGATIVE); URINE UROBILINOGEN NORMAL mg/dL (0.2-1.0)
[2018-05-07 09:54] LABS: ALBUMIN 4.2 g/dL (3.5-5.0); BLOOD UREA NITROGEN 77 mg/dL (7-17); CALCIUM 10.6 mg/dl (8.6-10.4); GFR NON-AFRICAN AMERICAN 53
[2018-05-07 09:55] LABS: ALB/GLOB RATIO 1.3 (1.0-2.1); ALT/SGPT 13 U/L (9-52); AST/SGOT 35 U/L (14-36)
--- NOTE | 2018-05-07 10:35 | RAD ---
Date of service: 05/07/2018 HISTORY: Sepsis Patient COMPARISON: 03/11/2018 FINDINGS: LUNGS: No active pulmonary disease. PLEURA: No significant pleural effusion identified, no pneumothorax apparent. CARDIOVASCULAR: CABG. Permanent pacemaker. OSSEOUS STRUCTURES: No significant abnormalities. VISUALIZED UPPER ABDOMEN: Normal. OTHER FINDINGS: None. IMPRESSION: No active disease.
--- NOTE | 2018-05-07 10:45 | C.PDOC ---
History Of Present Illness 87-year-old female, PMHx includes Anxiety, Arthritis, Bronchitis, CAD, Cardia Arrhythmia, CHF, COPD, Diabetes, GERD (esophageal stricture), HTN, Hypercholesterolemia, Osteoporosis, Pneumonia, and Rheumatoid Arthritis, is brought to the emergency department by EMS with complaints of altered mental status. As per EMS, pts family noted pt to be lethargic and progressively altered over the past week, pt brought home from senior living one week ago. All other Hx limited due to clinical condition. PMD Luis Manuel Patel MD. Time Seen by Provider: 05/07/18 08:35 Chief Complaint (Nursing): Altered Mental Status History Per: EMS History/Exam Limitations: Clinical Condition Past Medical History Reviewed: Historical Data, Nursing Documentation, Vital Signs Vital Signs: Last Vital Signs Temp 100.8 F H 05/07/18 08:41 Pulse 129 H 05/07/18 10:20 Resp 22 05/07/18 10:20 BP 129/60 05/07/18 10:20 Pulse Ox 99 05/07/18 10:20 - Medical History PMH: Anxiety, Arthritis, Bronchitis, CAD, Cardia Arrhythmia, CHF, COPD, Diabetes, GERD (esophageal stricture), HTN, Hypercholesterolemia, Osteoporosis, Pneumonia, Rheumatoid Arthritis Surgical History: CABG (12/16/1991), Carotid Endarterectomy (06/13/05), Coronary Stent, Pacemaker - [facility] Procedures BYPASS TRACHEA TO CUTANEOUS WITH TRACH DEV, PERC APPROACH (11/09/17) CHANGE OTHER DEVICE IN ABDOMINAL WALL, EXTERNAL APPROACH (08/03/15) CONTR CEREBR ARTERIOGRAM (06/13/05) CONTRAST AORTOGRAM (06/13/05) CONTRAST ARTERIOGRAM NEC (05/23/12) CORONAR ARTERIOGR-2 CATH (05/23/12) ENDOSC POLYPECTOMY OF LG INTEST (06/28/14) ENTERAL INFUSION OF CONCENTRATED NUT. SUBSTANCES (10/01/14) HEAD & NECK ENDARTER NEC (06/13/05) INJECT ANTICOAGULANT (06/13/05) INSERT PACE, SINGL HAYLEY IN CHEST SUBCU/FASCIA, OPEN (03/05/16) INSERTION OF ENDOTRACHEAL AIRWAY INTO TRACHEA, VIA OPENING (11/09/17) INSERTION OF INFUSION DEV INTO SUP VENA CAVA, PERC APPROACH (11/09/17) INSERTION OF ONE VASCULAR STENT (05/23/12) INSERTION OF PACEMAKER LEAD INTO R VENTRICLE, PERC APPROACH (03/05/16) INSPECTION OF TRACHEOBRONCHIAL TREE, ENDO (11/09/17) INSRT OF DRUG-ELUTING CORON ARTERY STENTS(S) (05/23/12) INTRODUCTION OF NUTRITIONAL INTO UP GI, VIA OPENING (03/05/16) INTRODUCTION OF VASOPRESSOR INTO CENTRAL VEIN, PERC APPROACH (03/05/16) LEFT HEART CARDIAC CATH (05/23/12) LT HEART ANGIOCARDIOGRAM (05/23/12) MEASUREMENT OF CARDIAC PACEMAKER, EXTERNAL APPROACH (01/27/17) PACKED CELL TRANSFUSION (06/28/14) PERCUTANEOUS TRANSLUMINAL CORONARY ANGIOPLASTY [PTCA] (05/23/12) PERCUTANEOUS [ENDOSCOPIC] GASTROSTOMY [PEG] (10/01/14) PERFORMANCE OF CARDIAC PACING, CONTINUOUS (03/05/16) PROCEDURE ON SINGLE VESSEL (05/23/12) REPLACE GASTROSTOMY TUBE (02/09/15) RESPIRATORY VENTILATION, 24-96 CONSECUTIVE HOURS (03/05/16) RESPIRATORY VENTILATION, GREATER THAN 96 CONSECUTIVE HOURS (11/09/17) Family History: States: No Known Family Hx - Social History Hx Tobacco Use: No Hx Alcohol Use: No Hx Substance Use: No - Immunization History Hx Tetanus Toxoid Vaccination: No Hx Influenza Vaccination: No Hx Pneumococcal Vaccination: No Review Of Systems Review Of Systems: ROS cannot be obtained secondary to pt's inabilty to answer questions. Physical Exam - Physical Exam Appears: Other (Lethargic) Skin: Warm, Dry Head: Atraumatic Eye(s): bilateral: Other (Opens eyes spontaneously) Nose: Normal Oral Mucosa: Moist Cardiovascular: Rhythm Regular, No Murmur Respiratory: Normal Breath Sounds, No Accessory Muscle Use Gastrointestinal/Abdominal: Other (G-Tube LUQ) Extremity: Other (moving all extremities spontaneously) Neurological/Psych: Other (moaning, lethargic) ED Course And Treatment - Laboratory Results Result Diagrams: 05/08/18 10:06 05/08/18 06:20 ECG: Interpreted By Me, Viewed By Me ECG Rhythm: Sinus Tachycardia, R BBB (Incomplete) ECG Interpretation: No Acute Changes Rate From EC O2 Sat by Pulse Oximetry: 99 Pulse Ox Interpretation: Normal (RA) Critical Care Time - Critical Care Note Total Time (in mins): 30 Documented critical care: time excludes all time spent performing seperately billable procedures. Medical Decision Making Medical Decision Making: Plan: * Bloodwork * CT Head * Azactam, Novolin, IVF, Vancomycin * EKG * Blood/Urine cultures * UA * Reassess and Disposition * Labs including blood cultures obtained. Leukocytosis and lactic acidosis noted. 2L NS bolus as well as vancomycin and aztreonam for empiric therapy ordered. Code sepsis called at 0922. Marked hyperglycemia also noted, with elevated beta-hydroxybutyrate however pH is normal. Insulin gtt at 6u/hr started for probable DKA. Case discussed with Dr. Anderson for ICU admission. He would like CT head, which was ordered. Patient admitted to D. Dr. Patel with ICU consult. Patient continued to be tachycardic to the 130-140's, however BP stable at 120's systolic. No improvement in mental status. Disposition - Disposition Disposition: HOSPITALIZED Disposition Time: 10:45 Condition: GUARDED - Clinical Impression Clinical Impression: Sepsis, Diabetic ketoacidosis, Altered mental status - Scribe Statement The provider has reviewed the documentation as recorded by the Scribe (Christiana Lroenzo) Provider Attestation: All medical record entries made by the Scribe were at my direction and personally dictated by me. I have reviewed the chart and agree that the record accurately reflects my personal performance of the history, physical exam, medical decision making, and the department course for this patient. I have also personally directed, reviewed, and agree with the discharge instructions and disposition.
[2018-05-07] MEDS ORDERED: Dextrose 50% SYRINGE Inj (50 ml) IV PRN (11:11)
[2018-05-07] MEDS ORDERED: Glucagon Recombinant 1 mg Inj IM PRN (11:11)
--- NOTE | 2018-05-07 11:37 | CT ---
Date of service: 05/07/2018 PROCEDURE: CT HEAD WITHOUT CONTRAST. HISTORY: altered mental status COMPARISON: 11/09/2017 TECHNIQUE: Axial computed tomography images were obtained through the head/brain without intravenous contrast. Radiation dose: Total exam DLP = 1036.67 mGy-cm. This CT exam was performed using one or more of the following dose reduction techniques: Automated exposure control, adjustment of the mA and/or kV according to patient size, and/or use of iterative reconstruction technique. FINDINGS: HEMORRHAGE: No intracranial hemorrhage. BRAIN: No mass effect or edema. Moderate patchy and confluent periventricular and deep/subcortical white matter lucency consistent with chronic microvascular ischemic change. No evidence of acute infarct. VENTRICLES: Unremarkable. No hydrocephalus. CALVARIUM: Unremarkable. PARANASAL SINUSES: Mild chronic frontal, ethmoid and sphenoid sinusitis. MASTOID AIR CELLS: Unremarkable as visualized. No inflammatory changes. OTHER FINDINGS: None. IMPRESSION: No intracranial mass, hemorrhage or evidence of acute infarct. Moderate chronic white matter ischemic change. Mild chronic paranasal sinusitis.
[2018-05-07] MEDS: Sodium Chloride 0.9% 1,000 ML IV SCH ×2 (14:57→22:23)
--- NOTE | 2018-05-07 17:23 | CP.PCM.CON ---
<Geovani Moser L - Last Filed: 05/07/18 18:14> History of Present Illness - History of Present Illness History of Present Illness: Critical Care Consult Note Patient is an 87 year old female with past medical history HTN, CHF, CAD, COPD, T2DM, tracheostomy following aspiration pneumonitis, presenting with altered mental status. Patient was noted to be increasingly lethargic over the past week after being brought home from snf. Patient has been admitted to [facility] ICU in the past for respiratory failure. Patient was found to be septic with blood glucose level of 465 and so ICU was consulted. In ED, patient was given 2 gm aztreonam, 1 gm vancomycin, 2 L NS boluses. History was obtained from prior records as patient is a poor historian. PMH: anxiety, rheumatoid arthritis, CAD, cardiac arrhythmia, CHF, COPD, T2DM, GERD (esophageal stricture), HTN, hypercholesterolemia, osteoporosis PSH: CABG (1991), carotid endarterectomy (2004), coronary stent, pacemaker Social: former smoker. Allergies: iodine, penicillins, clopidogrel, losartan, nitroglycerin PMD: Dr. Patel Review of Systems - Review of Systems Systems not reviewed;Unavailable: Altered Mental Status Past Patient History - Infectious Disease Hx of Infectious Diseases: None - Past Medical History & Family History Past Medical History?: Yes - Past Social History Smoking Status: Former Smoker - CARDIAC Hx Cardia Arrhythmia: Yes Hx Congestive Heart Failure: Yes Hx Hypercholesterolemia: Yes Hx Hypertension: Yes Hx Pacemaker: Yes - PULMONARY Hx Bronchitis: Yes Hx Chronic Obstructive Pulmonary Disease (COPD): Yes Hx Pneumonia: Yes - NEUROLOGICAL Hx Seizures: No Other/Comment: CONFUSION - HEENT Hx HEENT Problems: Yes Hx Cataracts: Yes (2000 Rt.Eye,2009Left Eye) - RENAL Hx Chronic Kidney Disease: No - ENDOCRINE/METABOLIC Hx Diabetes Mellitus Type 2: Yes - HEMATOLOGICAL/ONCOLOGICAL Hx Human Immunodeficiency Virus (HIV): No - INTEGUMENTARY Hx Dermatological Problems: No Other/Comment: MACERATED PEG SITE. LEFT BUTTOCK PRESSURE ULCER. JACEK. HEEL DISCOLORATION - MUSCULOSKELETAL/RHEUMATOLOGICAL Hx Arthritis: Yes Hx Osteoporosis: Yes Hx Rheumatoid Arthritis: Yes - GASTROINTESTINAL Hx Gastrointestinal Disorders: Yes Hx Colitis: Yes Hx Gastroesophageal Reflux: Yes HX Swallowing Problems: Yes (Achalasia. 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) Hx Coronary Stent: Yes - ANESTHESIA Hx Anesthesia: Yes Hx Anesthesia Reactions: No Hx Malignant Hyperthermia: No Meds Allergies/Adverse Reactions: Allergies Allergy/AdvReac Type Severity Reaction Status Date / Time iodine Allergy REDNESS Verified 05/07/18 08:50 Penicillins Allergy ANGIOEDEMA Verified 05/07/18 08:45 clopidogrel [From Plavix] AdvReac HEADACHE Verified 05/07/18 08:45 losartan [From Cozaar] AdvReac DIZZINESS Verified 05/07/18 08:45 nitroglycerin AdvReac DIZZINESS Verified 05/07/18 08:45 - Medications Medications: Current Medications Dextrose (Dextrose 50% Inj) 0 ml IV STAT PRN; Protocol PRN Reason: Hypoglycemia Protocol Dextrose (Glutose 15) 0 gm PO ONCE PRN; Protocol PRN Reason: Hypoglycemia Protocol Glucagon (Glucagen Diagnostic Kit) 0 mg IM STAT PRN; Protocol PRN Reason: Hypoglycemia Protocol Insulin Human Regular 100 unit (/ Sodium Chloride) 100 mls @ 8 mls/hr IV .[id number] ON LICENSE OF [facility]; Protocol Last Titration: 05/07/18 14:58 Dose: 4 units/hr, 4 mls/hr Dextrose (Dextrose 5% In Water 1000 Ml) 1,000 mls @ 0 mls/hr IV .Q0M PRN; Protocol PRN Reason: Hypoglycemia Protocol Sodium Chloride (Sodium Chloride 0.9%) 1,000 mls @ 125 mls/hr IV .Q8H ON LICENSE OF [facility] Last Admin: 05/07/18 14:57 Dose: 125 mls/hr Physical Exam - Constitutional Appears: No Acute Distress - Head Exam Head Exam: ATRAUMATIC, NORMOCEPHALIC - Eye Exam Eye Exam: EOMI, Normal appearance, PERRL - ENT Exam ENT Exam: Mucous Membranes Moist, Normal Exam - Respiratory Exam Respiratory Exam: Clear to Auscultation Bilateral, NORMAL BREATHING PATTERN. absent: Rhonchi, Wheezes, Respiratory Distress - Cardiovascular Exam Cardiovascular Exam: Tachycardia, REGULAR RHYTHM, +S1, +S2 - GI/Abdominal Exam GI & Abdominal Exam: Normal Bowel Sounds, Soft. absent: Rebound, Tenderness - Extremities Exam Extremities exam: Positive for: normal capillary refill, normal inspection. Negative for: calf tenderness, pedal edema - Neurological Exam Neurological exam: Alert, Altered Additional comments: difficult to assess as patient is lethargic - Skin Skin Exam: Dry, Intact, Normal Color Results - Vital Signs Recent Vital Signs: Last Vital Signs Temp 97.3 F L 05/07/18 16:00 Pulse 138 H 05/07/18 16:10 Resp 34 H 05/07/18 16:10 BP 159/74 H 05/07/18 15:52 Pulse Ox 100 05/07/18 16:10 - Labs Result Diagrams: 05/07/18 08:52 05/07/18 09:21 Labs: Laboratory Results - last 24 hr 05/07/18 05/07/18 05/07/18 08:27 08:52 09:00 WBC 22.2 H D RBC 3.57 L Hgb 11.4 Hct 35.5 MCV 99.4 H D MCH 31.9 H MCHC 32.1 L RDW 15.7 H Plt Count 465 H D MPV 8.5 Neut % (Auto) 80.9 H Lymph % (Auto) 12.4 L Floyd % (Auto) 5.4 Eos % (Auto) 0.2 Baso % (Auto) 1.1 Neut # (Auto) 17.9 H Lymph # (Auto) 2.8 Floyd # (Auto) 1.2 H Eos # (Auto) 0.0 Baso # (Auto) 0.2 Differential Comment pO2 34 VBG pH 7.39 VBG pCO2 40 VBG HCO3 23.5 VBG Total CO2 25.4 VBG O2 Sat (Calc) 63.8 VBG Base Excess -0.7 L VBG Potassium 8.5 H* A-a O2 Difference 66.0 Sodium 135.0 Chloride 100.0 Glucose > 750 H* D Lactate 7.6 H* FiO2 21.0 Crit Value Called To Er Crit Value Called By Александр Crit Value Read Back Y Blood Gas Notified Time 904 Potassium Carbon Dioxide Anion Gap BUN Creatinine Est GFR ( Amer) Est GFR (Non-Af Amer) POC Glucose (mg/dL) > 500 H* Random Glucose Lactic Acid Calcium Phosphorus Total Bilirubin AST ALT Alkaline Phosphatase Troponin I Total Protein Albumin Globulin Albumin/Globulin Ratio Venous Blood Potassium 8.5 H* Urine Color Urine Clarity Urine pH Ur Specific [place] Urine Protein Urine Glucose (UA) Urine Ketones Urine Blood Urine Nitrate Urine Bilirubin Urine Urobilinogen Ur Leukocyte Esterase Urine WBC (Auto) Urine RBC (Auto) B-Hydroxybutyrate 05/07/18 05/07/18 05/07/18 09:21 09:43 11:06 WBC RBC Hgb Hct MCV MCH MCHC RDW Plt Count MPV Neut % (Auto) Lymph % (Auto) Floyd % (Auto) Eos % (Auto) Baso % (Auto) Neut # (Auto) Lymph # (Auto) Floyd # (Auto) Eos # (Auto) Baso # (Auto) Differential Comment pO2 VBG pH VBG pCO2 VBG HCO3 VBG Total CO2 VBG O2 Sat (Calc) VBG Base Excess VBG Potassium A-a O2 Difference Sodium 137 Chloride 96 L Glucose Lactate FiO2 Crit Value Called To Crit Value Called By Crit Value Read Back Blood Gas Notified Time Potassium 7.0 H* D Carbon Dioxide 18 L Anion Gap 30 H BUN 77 H Creatinine 1.0 Est GFR ( Amer) > 60 Est GFR (Non-Af Amer) 53 POC Glucose (mg/dL) > 500 H* Random Glucose 936 H* D Lactic Acid Calcium 10.6 H Phosphorus 5.7 H Total Bilirubin 0.9 AST 35 ALT 13 Alkaline Phosphatase 79 Troponin I 0.0200 Total Protein 7.4 Albumin 4.2 Globulin 3.2 Albumin/Globulin Ratio 1.3 Venous Blood Potassium Urine Color Yellow Urine Clarity Clear Urine pH 5.0 Ur Specific [place] 1.025 Urine Protein Negative Urine Glucose (UA) 3+ H Urine Ketones Negative Urine Blood Negative Urine Nitrate Negative Urine Bilirubin Negative Urine Urobilinogen Normal Ur Leukocyte Esterase Neg Urine WBC (Auto) 1 Urine RBC (Auto) 1 B-Hydroxybutyrate 1.23 H 05/07/18 05/07/18 05/07/18 12:11 13:16 14:07 WBC RBC Hgb Hct MCV MCH MCHC RDW Plt Count MPV Neut % (Auto) Lymph % (Auto) Floyd % (Auto) Eos % (Auto) Baso % (Auto) Neut # (Auto) Lymph # (Auto) Floyd # (Auto) Eos # (Auto) Baso # (Auto) Differential Comment pO2 VBG pH VBG pCO2 VBG HCO3 VBG Total CO2 VBG O2 Sat (Calc) VBG Base Excess VBG Potassium A-a O2 Difference Sodium Chloride Glucose Lactate FiO2 Crit Value Called To Crit Value Called By Crit Value Read Back Blood Gas Notified Time Potassium Carbon Dioxide Anion Gap BUN Creatinine Est GFR ( Amer) Est GFR (Non-Af Amer) POC Glucose (mg/dL) 464 H* 385 H Random Glucose Lactic Acid 2.0 Calcium Phosphorus Total Bilirubin AST ALT Alkaline Phosphatase Troponin I Total Protein Albumin Globulin Albumin/Globulin Ratio Venous Blood Potassium Urine Color Urine Clarity Urine pH Ur Specific [place] Urine Protein Urine Glucose (UA) Urine Ketones Urine Blood Urine Nitrate Urine Bilirubin Urine Urobilinogen Ur Leukocyte Esterase Urine WBC (Auto) Urine RBC (Auto) B-Hydroxybutyrate 05/07/18 14:57 WBC RBC Hgb Hct MCV MCH MCHC RDW Plt Count MPV Neut % (Auto) Lymph % (Auto) Floyd % (Auto) Eos % (Auto) Baso % (Auto) Neut # (Auto) Lymph # (Auto) Floyd # (Auto) Eos # (Auto) Baso # (Auto) Differential Comment pO2 VBG pH VBG pCO2 VBG HCO3 VBG Total CO2 VBG O2 Sat (Calc) VBG Base Excess VBG Potassium A-a O2 Difference Sodium Chloride Glucose Lactate FiO2 Crit Value Called To Crit Value Called By Crit Value Read Back Blood Gas Notified Time Potassium Carbon Dioxide Anion Gap BUN Creatinine Est GFR ( Amer) Est GFR (Non-Af Amer) POC Glucose (mg/dL) 293 H Random Glucose Lactic Acid Calcium Phosphorus Total Bilirubin AST ALT Alkaline Phosphatase Troponin I Total Protein Albumin Globulin Albumin/Globulin Ratio Venous Blood Potassium Urine Color Urine Clarity Urine pH Ur Specific [place] Urine Protein Urine Glucose (UA) Urine Ketones Urine Blood Urine Nitrate Urine Bilirubin Urine Urobilinogen Ur Leukocyte Esterase Urine WBC (Auto) Urine RBC (Auto) B-Hydroxybutyrate Assessment & Plan - Assessment and Plan (Free Text) Assessment: Patient is an 87 year old female with past medical history HTN, CHF, CAD, COPD, T2DM, tracheostomy following aspiration pneumonitis, presenting with altered mental status and found to be septic and hyperglycemic. Plan: Neuro: - alert, however is lethargic Cardio: - no pressors indicated at this time Pulm: - nasal cannula as tolerated GI: - swallow eval Endo: - insulin drip - NS at 125 ccs/hr Renal: - no acute issues ID: - Febrile, tachycardic, and tachypneic in ED - Given 2 gm aztreonam and 1 gm vancomycin - Followup blood, wound, urine cultures PPX: Lovenox 40 mg SC daily, no GI prophylaxis indicated at this time Case reviewed and discussed with attending physician Dr. Monica Moser PGY-1 - Date & Time Date: 05/07/18 Time: 12:00 <Travon Anderson - Last Filed: 05/07/18 18:18> Meds - Medications Medications: Current Medications Dextrose (Dextrose 50% Inj) 0 ml IV STAT PRN; Protocol PRN Reason: Hypoglycemia Protocol Dextrose (Glutose 15) 0 gm PO ONCE PRN; Protocol PRN Reason: Hypoglycemia Protocol Enoxaparin Sodium (Lovenox) 40 mg SC DAILY JUDY Glucagon (Glucagen Diagnostic Kit) 0 mg IM STAT PRN; Protocol PRN Reason: Hypoglycemia Protocol Insulin Human Regular 100 unit (/ Sodium Chloride) 100 mls @ 8 mls/hr IV .[id number] JUDY; Protocol Last Titration: 05/07/18 17:22 Dose: 2 units/hr, 2 mls/hr Dextrose (Dextrose 5% In Water 1000 Ml) 1,000 mls @ 0 mls/hr IV .Q0M PRN; Protocol PRN Reason: Hypoglycemia Protocol Sodium Chloride (Sodium Chloride 0.9%) 1,000 mls @ 125 mls/hr IV .Q8H JUDY Last Admin: 05/07/18 14:57 Dose: 125 mls/hr Results - Vital Signs Recent Vital Signs: Last Vital Signs Temp 97.3 F L 05/07/18 16:00 Pulse 135 H 05/07/18 17:20 Resp 36 H 05/07/18 17:20 BP 165/76 H 05/07/18 16:52 Pulse Ox 100 05/07/18 16:10 - Labs Result Diagrams: 05/07/18 08:52 05/07/18 09:21 Labs: Laboratory Results - last 24 hr 05/07/18 05/07/18 05/07/18 08:27 08:52 09:00 WBC 22.2 H D RBC 3.57 L Hgb 11.4 Hct 35.5 MCV 99.4 H D MCH 31.9 H MCHC 32.1 L RDW 15.7 H Plt Count 465 H D MPV 8.5 Neut % (Auto) 80.9 H Lymph % (Auto) 12.4 L Floyd % (Auto) 5.4 Eos % (Auto) 0.2 Baso % (Auto) 1.1 Neut # (Auto) 17.9 H Lymph # (Auto) 2.8 Floyd # (Auto) 1.2 H Eos # (Auto) 0.0 Baso # (Auto) 0.2 Differential Comment pO2 34 VBG pH 7.39 VBG pCO2 40 VBG HCO3 23.5 VBG Total CO2 25.4 VBG O2 Sat (Calc) 63.8 VBG Base Excess -0.7 L VBG Potassium 8.5 H* A-a O2 Difference 66.0 Sodium 135.0 Chloride 100.0 Glucose > 750 H* D Lactate 7.6 H* FiO2 21.0 Crit Value Called To Er Crit Value Called By Александр Crit Value Read Back Y Blood Gas Notified Time 904 Potassium Carbon Dioxide Anion Gap BUN Creatinine Est GFR ( Amer) Est GFR (Non-Af Amer) POC Glucose (mg/dL) > 500 H* Random Glucose Lactic Acid Calcium Phosphorus Total Bilirubin AST ALT Alkaline Phosphatase Troponin I Total Protein Albumin Globulin Albumin/Globulin Ratio Venous Blood Potassium 8.5 H* Urine Color Urine Clarity Urine pH Ur Specific [place] Urine Protein Urine Glucose (UA) Urine Ketones Urine Blood Urine Nitrate Urine Bilirubin Urine Urobilinogen Ur Leukocyte Esterase Urine WBC (Auto) Urine RBC (Auto) B-Hydroxybutyrate 05/07/18 05/07/18 05/07/18 09:21 09:43 11:06 WBC RBC Hgb Hct MCV MCH MCHC RDW Plt Count MPV Neut % (Auto) Lymph % (Auto) Floyd % (Auto) Eos % (Auto) Baso % (Auto) Neut # (Auto) Lymph # (Auto) Floyd # (Auto) Eos # (Auto) Baso # (Auto) Differential Comment pO2 VBG pH VBG pCO2 VBG HCO3 VBG Total CO2 VBG O2 Sat (Calc) VBG Base Excess VBG Potassium A-a O2 Difference Sodium 137 Chloride 96 L Glucose Lactate FiO2 Crit Value Called To Crit Value Called By Crit Value Read Back Blood Gas Notified Time Potassium 7.0 H* D Carbon Dioxide 18 L Anion Gap 30 H BUN 77 H Creatinine 1.0 Est GFR ( Amer) > 60 Est GFR (Non-Af Amer) 53 POC Glucose (mg/dL) > 500 H* Random Glucose 936 H* D Lactic Acid Calcium 10.6 H Phosphorus 5.7 H Total Bilirubin 0.9 AST 35 ALT 13 Alkaline Phosphatase 79 Troponin I 0.0200 Total Protein 7.4 Albumin 4.2 Globulin 3.2 Albumin/Globulin Ratio 1.3 Venous Blood Potassium Urine Color Yellow Urine Clarity Clear Urine pH 5.0 Ur Specific [place] 1.025 Urine Protein Negative Urine Glucose (UA) 3+ H Urine Ketones Negative Urine Blood Negative Urine Nitrate Negative Urine Bilirubin Negative Urine Urobilinogen Normal Ur Leukocyte Esterase Neg Urine WBC (Auto) 1 Urine RBC (Auto) 1 B-Hydroxybutyrate 1.23 H 05/07/18 05/07/18 05/07/18 12:11 13:16 14:07 WBC RBC Hgb Hct MCV MCH MCHC RDW Plt Count MPV Neut % (Auto) Lymph % (Auto) Floyd % (Auto) Eos % (Auto) Baso % (Auto) Neut # (Auto) Lymph # (Auto) Floyd # (Auto) Eos # (Auto) Baso # (Auto) Differential Comment pO2 VBG pH VBG pCO2 VBG HCO3 VBG Total CO2 VBG O2 Sat (Calc) VBG Base Excess VBG Potassium A-a O2 Difference Sodium Chloride Glucose Lactate FiO2 Crit Value Called To Crit Value Called By Crit Value Read Back Blood Gas Notified Time Potassium Carbon Dioxide Anion Gap BUN Creatinine Est GFR ( Amer) Est GFR (Non-Af Amer) POC Glucose (mg/dL) 464 H* 385 H Random Glucose Lactic Acid 2.0 Calcium Phosphorus Total Bilirubin AST ALT Alkaline Phosphatase Troponin I Total Protein Albumin Globulin Albumin/Globulin Ratio Venous Blood Potassium Urine Color Urine Clarity Urine pH Ur Specific [place] Urine Protein Urine Glucose (UA) Urine Ketones Urine Blood Urine Nitrate Urine Bilirubin Urine Urobilinogen Ur Leukocyte Esterase Urine WBC (Auto) Urine RBC (Auto) B-Hydroxybutyrate 05/07/18 05/07/18 05/07/18 14:57 16:35 17:21 WBC RBC Hgb Hct MCV MCH MCHC RDW Plt Count MPV Neut % (Auto) Lymph % (Auto) Floyd % (Auto) Eos % (Auto) Baso % (Auto) Neut # (Auto) Lymph # (Auto) Floyd # (Auto) Eos # (Auto) Baso # (Auto) Differential Comment pO2 VBG pH VBG pCO2 VBG HCO3 VBG Total CO2 VBG O2 Sat (Calc) VBG Base Excess VBG Potassium A-a O2 Difference Sodium Chloride Glucose Lactate FiO2 Crit Value Called To Crit Value Called By Crit Value Read Back Blood Gas Notified Time Potassium Carbon Dioxide Anion Gap BUN Creatinine Est GFR ( Amer) Est GFR (Non-Af Amer) POC Glucose (mg/dL) 293 H 205 H 163 H Random Glucose Lactic Acid Calcium Phosphorus Total Bilirubin AST ALT Alkaline Phosphatase Troponin I Total Protein Albumin Globulin Albumin/Globulin Ratio Venous Blood Potassium Urine Color Urine Clarity Urine pH Ur Specific [place] Urine Protein Urine Glucose (UA) Urine Ketones Urine Blood Urine Nitrate Urine Bilirubin Urine Urobilinogen Ur Leukocyte Esterase Urine WBC (Auto) Urine RBC (Auto) B-Hydroxybutyrate Attending/Attestation - Attestation I have personally seen and examined this patient.: Yes I have fully participated in the care of the patient.: Yes I have reviewed all pertinent clinical information: Yes Notes (Text): 05/07/18 18:15 I have seen and examined the patient. Medical records, lab studies, and imaging were reviewed by me and a management plan was formulated on multidisciplinary rounds with resident Dr. Moser. I agree with their documented assessment and plan. Patient is in severe DKA with lactic acidosis and leukocytosis, started on insulin drip, q4h bmp's. Unlikely sepsis as no suspected source. Critical Care Time 35 minutes. Multi-disciplinary rounds were performed with house staff, nursing, speech therapy, respiratory therapy, pharmacy and nutrition with integrated input from the primary team/attending and other consulting services. The documented time is cumulative and includes review of patient data/exams/labs/chart review and examination of the patient on rounds and throughout the day; time is exclusive of any procedures or teaching time. 05/07/18 18:17 05/07/18 18:18
--- NOTE | 2018-05-07 17:57 | PCM.SEPTIC ---
<Geovani Moser L - Last Filed: 05/07/18 18:10> Sepsis Progress Note - Reassessment Type Date of Evaluation: 05/07/18 Time of Evaluation: 14:00 Reassessment Type: Non-invasive reassessment - Non Invasive Reassessment Were the most recent vital sign reviewed: Yes Vital Sign (Latest): Temp Pulse Resp BP Pulse Ox 97.3 F L 135 H 36 H 165/76 H 100 05/07/18 16:00 05/07/18 17:20 05/07/18 17:20 05/07/18 16:52 05/07/18 16:10 Cardiovascular: Yes: Regular Rate, Rhythm, Tachycardia Respiratory: Yes: Normal Breath Sounds. No: Rales, Rhonchi, Wheezing, Respiratory Distress Capillary Refill: Normal (Less than 2 sec) Pulses: Normal Radial, Normal Dorsalis Pedis, Normal Posterior Tibialis Skin: Normal Color, Dry, Pale <Travon Anderson - Last Filed: 05/07/18 18:19> Sepsis Progress Note - Non Invasive Reassessment Vital Sign (Latest): Temp Pulse Resp BP Pulse Ox 97.3 F L 135 H 36 H 165/76 H 100 05/07/18 16:00 05/07/18 17:20 05/07/18 17:20 05/07/18 16:52 05/07/18 16:10 Attending/Attestation - Attestation I have personally seen and examined this patient.: Yes I have fully participated in the care of the patient.: Yes I have reviewed all pertinent clinical information, including history, physical exam and plan: Yes
[2018-05-07 18:54] LABS: BLOOD UREA NITROGEN 79 mg/dL (7-17); CALCIUM 10.1 mg/dl (8.6-10.4); GFR NON-AFRICAN AMERICAN > 60
[2018-05-07] MEDS ORDERED: (Lantus) Insulin Glargine, Recombinant SC STA (19:43)
--- NOTE | 2018-05-07 21:16 | CP.PCM.CON ---
History of Present Illness - History of Present Illness History of Present Illness: Reason For Consultation: Tachycardia Patient is an 87 year old female with past medical history HTN, CHF, CAD, COPD, T2DM, tracheostomy following aspiration pneumonitis, presenting with altered mental status. Patient was noted to be increasingly lethargic over the past week after [facility]. Patient has been admitted to [facility] ICU in the past for respiratory failure. Patient was found to be septic with bl ood glucose level of 465 In ED, patient was given 2 gm aztreonam, 1 gm vancomycin, 2 L NS boluses. History was obtained from prior records as patient is a poor historian. PMH: anxiety, rheumatoid arthritis, CAD, cardiac arrhythmia, CHF, COPD, T2DM, GERD (esophageal stricture), HTN, hypercholesterolemia, osteoporosis PSH: CABG (1991), carotid endarterectomy (2004), coronary stent, pacemaker Social: former smoker. Allergies: iodine, penicillins, clopidogrel, losartan, nitroglycerin PMD: Dr. Patel Review of Systems - Review of Systems Systems not reviewed;Unavailable: Altered Mental Status Physical Exam - Constitutional Appears: No Acute Distress - Head Exam Head Exam: ATRAUMATIC, NORMOCEPHALIC - Eye Exam Eye Exam: EOMI, Normal appearance, PERRL - ENT Exam ENT Exam: Mucous Membranes Moist, Normal Exam - Respiratory Exam Respiratory Exam: Clear to Auscultation Bilateral, NORMAL BREATHING PATTERN. absent: Rhonchi, Wheezes, Respiratory Distress - Cardiovascular Exam Cardiovascular Exam: Tachycardia, REGULAR RHYTHM, +S1, +S2 - GI/Abdominal Exam GI & Abdominal Exam: Normal Bowel Sounds, Soft. absent: Rebound, Tenderness - Extremities Exam Extremities exam: Positive for: normal capillary refill, normal inspection. Negative for: calf tenderness, pedal edema - Neurological Exam Neurological exam: Alert, Altered Additional comments: difficult to assess as patient is lethargic - Skin Skin Exam: Dry, Intact, Normal Color Assessment & Plan - Assessment and Plan (Free Text) Assessment: Patient is an 87 year old female with past medical history HTN, CHF, CAD, COPD, T2DM, tracheostomy following aspiration pneumonitis, presenting with altered mental status and found to be septic and hyperglycemic. Plan: Neuro: - alert, however is lethargic Cardio: - no pressors indicated at this time Pulm: - nasal cannula as tolerated GI: - swallow eval Endo: - insulin drip - NS at 125 ccs/hr Renal: - no acute issues ID: - Febrile, tachycardic, and tachypneic in ED - Given 2 gm aztreonam and 1 gm vancomycin - Followup blood, wound, urine cultures PPX: Lovenox 40 mg SC daily, no GI prophylaxis indicated at this time Tachycardia most likely secondary to sepsis, dehydration and metobolic reasons Treat sepsis, hyperglycemia and dehydration Check ECHO Past Patient History - Infectious Disease Hx of Infectious Diseases: None - Past Medical History & Family History Past Medical History?: Yes - Past Social History Smoking Status: Former Smoker - CARDIAC Hx Cardia Arrhythmia: Yes Hx Congestive Heart Failure: Yes Hx Hypercholesterolemia: Yes Hx Hypertension: Yes Hx Pacemaker: Yes - PULMONARY Hx Bronchitis: Yes Hx Chronic Obstructive Pulmonary Disease (COPD): Yes Hx Pneumonia: Yes - NEUROLOGICAL Hx Seizures: No Other/Comment: CONFUSION - HEENT Hx HEENT Problems: Yes Hx Cataracts: Yes (2000 Rt.Eye,2009Left Eye) - RENAL Hx Chronic Kidney Disease: No - ENDOCRINE/METABOLIC Hx Diabetes Mellitus Type 2: Yes - HEMATOLOGICAL/ONCOLOGICAL Hx Human Immunodeficiency Virus (HIV): No - INTEGUMENTARY Hx Dermatological Problems: No Other/Comment: MACERATED PEG SITE. LEFT BUTTOCK PRESSURE ULCER. JACEK. HEEL DISCOLORATION - MUSCULOSKELETAL/RHEUMATOLOGICAL Hx Arthritis: Yes Hx Osteoporosis: Yes Hx Rheumatoid Arthritis: Yes - GASTROINTESTINAL Hx Gastrointestinal Disorders: Yes Hx Colitis: Yes Hx Gastroesophageal Reflux: Yes HX Swallowing Problems: Yes (Achalasia. 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) Hx Coronary Stent: Yes - ANESTHESIA Hx Anesthesia: Yes Hx Anesthesia Reactions: No Hx Malignant Hyperthermia: No Meds Allergies/Adverse Reactions: Allergies Allergy/AdvReac Type Severity Reaction Status Date / Time iodine Allergy REDNESS Verified 05/07/18 08:50 Penicillins Allergy ANGIOEDEMA Verified 05/07/18 08:45 clopidogrel [From Plavix] AdvReac HEADACHE Verified 05/07/18 08:45 losartan [From Cozaar] AdvReac DIZZINESS Verified 05/07/18 08:45 nitroglycerin AdvReac DIZZINESS Verified 05/07/18 08:45 - Medications Medications: Current Medications Dextrose (Dextrose 50% Inj) 0 ml IV STAT PRN; Protocol PRN Reason: Hypoglycemia Protocol Dextrose (Glutose 15) 0 gm PO ONCE PRN; Protocol PRN Reason: Hypoglycemia Protocol Enoxaparin Sodium (Lovenox) 40 mg SC DAILY [facility] Glucagon (Glucagen Diagnostic Kit) 0 mg IM STAT PRN; Protocol PRN Reason: Hypoglycemia Protocol Insulin Human Regular 100 unit (/ Sodium Chloride) 100 mls @ 8 mls/hr IV .[id number] JUDY; Protocol Last Titration: 05/07/18 19:09 Dose: 0 units/hr, 0 mls/hr Dextrose (Dextrose 5% In Water 1000 Ml) 1,000 mls @ 0 mls/hr IV .Q0M PRN; Protocol PRN Reason: Hypoglycemia Protocol Sodium Chloride (Sodium Chloride 0.9%) 1,000 mls @ 125 mls/hr IV .Q8H JUDY Last Admin: 05/07/18 14:57 Dose: 125 mls/hr Metoprolol Tartrate (Lopressor) 50 mg PO Q12 JUDY Results - Vital Signs Recent Vital Signs: Last Vital Signs Temp 98.2 F 05/07/18 20:00 Pulse 135 H 05/07/18 21:00 Resp 29 H 05/07/18 21:00 BP 149/67 05/07/18 20:52 Pulse Ox 100 05/07/18 21:00 - Labs Result Diagrams: 05/07/18 08:52 05/07/18 18:19 Labs: Laboratory Results - last 24 hr 05/07/18 05/07/18 05/07/18 08:27 08:52 09:00 WBC 22.2 H D RBC 3.57 L Hgb 11.4 Hct 35.5 MCV 99.4 H D MCH 31.9 H MCHC 32.1 L RDW 15.7 H Plt Count 465 H D MPV 8.5 Neut % (Auto) 80.9 H Lymph % (Auto) 12.4 L [place] % (Auto) 5.4 Eos % (Auto) 0.2 Baso % (Auto) 1.1 Neut # (Auto) 17.9 H Lymph # (Auto) 2.8 [place] # (Auto) 1.2 H Eos # (Auto) 0.0 Baso # (Auto) 0.2 Differential Comment pO2 34 VBG pH 7.39 VBG pCO2 40 VBG HCO3 23.5 VBG Total CO2 25.4 VBG O2 Sat (Calc) 63.8 VBG Base Excess -0.7 L VBG Potassium 8.5 H* A-a O2 Difference 66.0 Sodium 135.0 Chloride 100.0 Glucose > 750 H* D Lactate 7.6 H* FiO2 21.0 Crit Value Called To Er Crit Value Called By Александр Crit Value Read Back Y Blood Gas Notified Time 904 Potassium Carbon Dioxide Anion Gap BUN Creatinine Est GFR ( Amer) Est GFR (Non-Af Amer) POC Glucose (mg/dL) > 500 H* Random Glucose Lactic Acid Calcium Phosphorus Total Bilirubin AST ALT Alkaline Phosphatase Troponin I Total Protein Albumin Globulin Albumin/Globulin Ratio Venous Blood Potassium 8.5 H* Urine Color Urine Clarity Urine pH Ur Specific [place] Urine Protein Urine Glucose (UA) Urine Ketones Urine Blood Urine Nitrate Urine Bilirubin Urine Urobilinogen Ur Leukocyte Esterase Urine WBC (Auto) Urine RBC (Auto) B-Hydroxybutyrate 05/07/18 05/07/18 05/07/18 09:21 09:43 11:06 WBC RBC Hgb Hct MCV MCH MCHC RDW Plt Count MPV Neut % (Auto) Lymph % (Auto) [place] % (Auto) Eos % (Auto) Baso % (Auto) Neut # (Auto) Lymph # (Auto) [place] # (Auto) Eos # (Auto) Baso # (Auto) Differential Comment pO2 VBG pH VBG pCO2 VBG HCO3 VBG Total CO2 VBG O2 Sat (Calc) VBG Base Excess VBG Potassium A-a O2 Difference Sodium 137 Chloride 96 L Glucose Lactate FiO2 Crit Value Called To Crit Value Called By Crit Value Read Back Blood Gas Notified Time Potassium 7.0 H* D Carbon Dioxide 18 L Anion Gap 30 H BUN 77 H Creatinine 1.0 Est GFR ( Amer) > 60 Est GFR (Non-Af Amer) 53 POC Glucose (mg/dL) > 500 H* Random Glucose 936 H* D Lactic Acid Calcium 10.6 H Phosphorus 5.7 H Total Bilirubin 0.9 AST 35 ALT 13 Alkaline Phosphatase 79 Troponin I 0.0200 Total Protein 7.4 Albumin 4.2 Globulin 3.2 Albumin/Globulin Ratio 1.3 Venous Blood Potassium Urine Color Yellow Urine Clarity Clear Urine pH 5.0 Ur Specific [place] 1.025 Urine Protein Negative Urine Glucose (UA) 3+ H Urine Ketones Negative Urine Blood Negative Urine Nitrate Negative Urine Bilirubin Negative Urine Urobilinogen Normal Ur Leukocyte Esterase Neg Urine WBC (Auto) 1 Urine RBC (Auto) 1 B-Hydroxybutyrate 1.23 H 05/07/18 05/07/18 05/07/18 12:11 13:16 14:07 WBC RBC Hgb Hct MCV MCH MCHC RDW Plt Count MPV Neut % (Auto) Lymph % (Auto) [place] % (Auto) Eos % (Auto) Baso % (Auto) Neut # (Auto) Lymph # (Auto) [place] # (Auto) Eos # (Auto) Baso # (Auto) Differential Comment pO2 VBG pH VBG pCO2 VBG HCO3 VBG Total CO2 VBG O2 Sat (Calc) VBG Base Excess VBG Potassium A-a O2 Difference Sodium Chloride Glucose Lactate FiO2 Crit Value Called To Crit Value Called By Crit Value Read Back Blood Gas Notified Time Potassium Carbon Dioxide Anion Gap BUN Creatinine Est GFR ( Amer) Est GFR (Non-Af Amer) POC Glucose (mg/dL) 464 H* 385 H Random Glucose Lactic Acid 2.0 Calcium Phosphorus Total Bilirubin AST ALT Alkaline Phosphatase Troponin I Total Protein Albumin Globulin Albumin/Globulin Ratio Venous Blood Potassium Urine Color Urine Clarity Urine pH Ur Specific [place] Urine Protein Urine Glucose (UA) Urine Ketones Urine Blood Urine Nitrate Urine Bilirubin Urine Urobilinogen Ur Leukocyte Esterase Urine WBC (Auto) Urine RBC (Auto) B-Hydroxybutyrate 05/07/18 05/07/18 05/07/18 14:57 16:35 17:21 WBC RBC Hgb Hct MCV MCH MCHC RDW Plt Count MPV Neut % (Auto) Lymph % (Auto) [place] % (Auto) Eos % (Auto) Baso % (Auto) Neut # (Auto) Lymph # (Auto) [place] # (Auto) Eos # (Auto) Baso # (Auto) Differential Comment pO2 VBG pH VBG pCO2 VBG HCO3 VBG Total CO2 VBG O2 Sat (Calc) VBG Base Excess VBG Potassium A-a O2 Difference Sodium Chloride Glucose Lactate FiO2 Crit Value Called To Crit Value Called By Crit Value Read Back Blood Gas Notified Time Potassium Carbon Dioxide Anion Gap BUN Creatinine Est GFR ( Amer) Est GFR (Non-Af Amer) POC Glucose (mg/dL) 293 H 205 H 163 H Random Glucose Lactic Acid Calcium Phosphorus Total Bilirubin AST ALT Alkaline Phosphatase Troponin I Total Protein Albumin Globulin Albumin/Globulin Ratio Venous Blood Potassium Urine Color Urine Clarity Urine pH Ur Specific [place] Urine Protein Urine Glucose (UA) Urine Ketones Urine Blood Urine Nitrate Urine Bilirubin Urine Urobilinogen Ur Leukocyte Esterase Urine WBC (Auto) Urine RBC (Auto) B-Hydroxybutyrate 05/07/18 18:19 WBC RBC Hgb Hct MCV MCH MCHC RDW Plt Count MPV Neut % (Auto) Lymph % (Auto) [place] % (Auto) Eos % (Auto) Baso % (Auto) Neut # (Auto) Lymph # (Auto) [place] # (Auto) Eos # (Auto) Baso # (Auto) Differential Comment pO2 VBG pH VBG pCO2 VBG HCO3 VBG Total CO2 VBG O2 Sat (Calc) VBG Base Excess VBG Potassium A-a O2 Difference Sodium 150 H Chloride 114 H Glucose Lactate FiO2 Crit Value Called To Crit Value Called By Crit Value Read Back Blood Gas Notified Time Potassium 4.4 Carbon Dioxide 22 Anion Gap 18 BUN 79 H Creatinine 0.7 Est GFR ( Amer) > 60 Est GFR (Non-Af Amer) > 60 POC Glucose (mg/dL) Random Glucose 168 H Lactic Acid Calcium 10.1 Phosphorus Total Bilirubin AST ALT Alkaline Phosphatase Troponin I Total Protein Albumin Globulin Albumin/Globulin Ratio Venous Blood Potassium Urine Color Urine Clarity Urine pH Ur Specific [place] Urine Protein Urine Glucose (UA) Urine Ketones Urine Blood Urine Nitrate Urine Bilirubin Urine Urobilinogen Ur Leukocyte Esterase Urine WBC (Auto) Urine RBC (Auto) B-Hydroxybutyrate
[2018-05-07] MEDS ORDERED: Albuterol-Ipratrop 3 mg / 0.5 (3 ml) UD INH PRN (21:18)
[2018-05-07] MEDS: Aztreonam 1 GM in Sodium Chloride 0.9% 100 ML IVPB SCH (22:33)
[2018-05-08] MEDS ORDERED: (Novolog) Insulin Aspart, Recombinant 100 u/ml 10 ml vial SC SCH
[2018-05-08] MEDS: (Novolog) Insulin Aspart, Recombinant 100 u/ml 10 ml vial SC SCH ×4 (00:06→18:54)
[2018-05-08] MEDS: Aztreonam 1 GM in Sodium Chloride 0.9% 100 ML IVPB SCH ×3 (05:55→22:06)
[2018-05-08] MEDS: Pantoprazole 40 mg Susp UD PO SCH (06:13)
[2018-05-08] MEDS: Sodium Chloride 0.9% 1,000 ML IV SCH ×2 (06:14→18:54)
[2018-05-08 06:29] LABS: BASO # 0.1 K/uL (0.0-0.2); BASO % 0.7 % (0.0-2.0); EOS # 0.1 K/uL (0.0-0.7); EOS % 0.3 % (0.0-4.0); LYMPH % 14.3 % (20.0-40.0); MEAN CORPUSCULAR HEMOGLOBIN 31.4 pg (27.0-31.0); MEAN CORPUSCULAR HGB CONC 32.7 g/dL (33.0-37.0); MONO # 1.9 K/uL (0.0-0.8); MONO % 9.2 % (0.0-10.0); NEUT # 15.7 K/uL (1.8-7.0); NEUT % 75.5 % (50.0-75.0); NRBC % 0.2 % (0.0-2.0); RBC 2.58 Mil/uL (3.80-5.20); WHITE BLOOD COUNT 20.8 K/uL (4.8-10.8)
[2018-05-08 06:47] LABS: HEMOGLOBIN 8.1 g/dL (11.0-16.0)
[2018-05-08 06:48] LABS: ALB/GLOB RATIO 1.2 (1.0-2.1); ALBUMIN 3.1 g/dL (3.5-5.0); ALT/SGPT 20 U/L (9-52); AST/SGOT 17 U/L (14-36); BLOOD UREA NITROGEN 65 mg/dL (7-17); CALCIUM 9.5 mg/dl (8.6-10.4); GFR NON-AFRICAN AMERICAN > 60
[2018-05-08] MEDS ORDERED: Enoxaparin 40 mg Syringe SC SCH (10:00)
[2018-05-08 10:17] LABS: BASO # 0.2 K/uL (0.0-0.2); BASO % 0.8 % (0.0-2.0); EOS # 0.1 K/uL (0.0-0.7); EOS % 0.4 % (0.0-4.0); HEMOGLOBIN 8.2 g/dL (11.0-16.0); LYMPH # 2.7 K/uL (1.0-4.3); LYMPH % 13.4 % (20.0-40.0); MEAN CORPUSCULAR HEMOGLOBIN 32.4 pg (27.0-31.0); MEAN PLATELET VOLUME 7.8 fL (7.2-11.7); MONO # 1.8 K/uL (0.0-0.8); MONO % 9.1 % (0.0-10.0); NEUT # 15.5 K/uL (1.8-7.0); NEUT % 76.3 % (50.0-75.0); NRBC % 0.2 % (0.0-2.0); RBC 2.52 Mil/uL (3.80-5.20); RED CELL DISTRIBUTION WIDTH 15.6 % (11.5-14.5); WHITE BLOOD COUNT 20.4 K/uL (4.8-10.8)
[2018-05-08 10:20] LABS: MEAN CELL VOLUME 98.2 fL (81.0-99.0)
--- NOTE | 2018-05-08 16:28 | CARD ---
APPROVED REPORT Date of service: 05/07/2018 EKG Measurement Heart [id number] <Conclusion> Sinus tachycardia Right bundle branch block, plus right ventricular hypertrophy Misplaced V4 to V6 leads Inferior infarct, age undetermined can not be excluded versus RBBB Please repeat Abnormal ECG
[2018-05-09] MEDS: (Novolog) Insulin Aspart, Recombinant 100 u/ml 10 ml vial SC SCH ×2 (00:29→06:25)
[2018-05-09] MEDS: Sodium Chloride 0.9% 1,000 ML IV SCH ×2 (01:17→06:45)
[2018-05-09] MEDS: Pantoprazole 40 mg Susp UD PO SCH (05:45)
[2018-05-09] MEDS: Aztreonam 1 GM in Sodium Chloride 0.9% 100 ML IVPB SCH ×2 (05:45→13:36)
[2018-05-09] MEDS ORDERED: Sodium Bicarbonate (8.4%) 50 Meq Syringe IVP ONE ×2 (06:00→06:20)
[2018-05-09] MEDS ORDERED: Sodium Bicarbonate (8.4%) 50 Meq Syringe ONE ×2 (06:20→06:48)
--- NOTE | 2018-05-09 06:21 | PCM.RRT ---
Addendum entered and electronically signed by Luis Manuel Patel MD 05/25/18 11:54: Suddenly patient's condition got worse. She become lethargic. Response was called. Patient was intubated without any problem. Tolerated intubation. Also started having rectal bleeding. Immediate Lumen catheter was inserted. As an emergency. Blood started. Spoke to the patient's family. Overall prognosis very poor Very high lactate level noted, likely hemorrhagic shock Original Note: [employer] Nurses Assessment - Ventilator Settings Ventilator Tidal Volume Settin I.Reason for [employer] - A) Acute Change in Patient: (Select all that apply): Staff member or family is worried about patient - Neurological Status (Select all that apply): absent: Responsive, Follows Commands Other (Please specify): non responsive - Respiratory Oxygen Delivery Method: BiPAP @% - Constitutional Additional Comments: obtunded, non repsonsive - Head Head Exam: ATRAUMATIC, NORMOCEPHALIC - Respiratory Exam Respiratory Exam: Rhonchi. absent: Clear to Ausculation Bilateral, Rales, Wheezes, NORMAL BREATHING PATTERN Additional comments: spontaneous breathing pattern, rhonchi in b/l lung driscoll - Cardiovascular Exam Cardiovascular Exam: +S1, +S2 - GI/Abdominal Exam GI & Abdominal Exam: Soft, Normal Bowel Sounds. absent: Distended, Tenderness - Neurological Exam Neurological Exam: absent: Alert, Awake Additional exam: non responsive - Extremities Exam Extremities Exam: Normal Inspection Plan - Assessment of Findings&Treatment Plan 87 yo F with PMH CHF was being washed down by nursing staff when Code Blue was called due to spontaneous respirations. Pt was noted to not breathing on her own. Lung sounds were spontaneous with non rebreather. Pulse was appreciated. Pt was nonresponsive. Pt was intubated and put on bipap. Pt was given IV fluid NS bolus. ABG was drawn. Vitals: HR 102, BP 86/53, RR 28 on bipap
[2018-05-09 06:43] LABS: ARTERIAL BLOOD GAS O2 SAT 99.9 % (95-98); ARTERIAL BLOOD GAS PCO2 17 mm/Hg (35-45); ARTERIAL BLOOD GAS PH 7.12 (7.35-7.45); ARTERIAL BLOOD GAS PO2 411 mm/Hg (80-100)
[2018-05-09 06:51] LABS: BASO # 0.1 K/uL (0.0-0.2); BASO % 0.4 % (0.0-2.0); EOS % 0.1 % (0.0-4.0); LYMPH % 20.1 % (20.0-40.0); MEAN CELL VOLUME 112.6 fL (81.0-99.0); MEAN CORPUSCULAR HEMOGLOBIN 31.8 pg (27.0-31.0); MEAN CORPUSCULAR HGB CONC 28.2 g/dL (33.0-37.0); MEAN PLATELET VOLUME 8.4 fL (7.2-11.7); MONO # 0.9 K/uL (0.0-0.8); MONO % 4.4 % (0.0-10.0); NEUT # 14.9 K/uL (1.8-7.0); NRBC % 2.8 % (0.0-2.0); RBC 1.37 Mil/uL (3.80-5.20); RED CELL DISTRIBUTION WIDTH 17.2 % (11.5-14.5); WHITE BLOOD COUNT 19.8 K/uL (4.8-10.8)
[2018-05-09] MEDS ORDERED: Sodium Chloride 0.9% 1,000 ML IV ONE (06:57)
[2018-05-09 07:01] LABS: HEMOGLOBIN 4.4 g/dL (11.0-16.0)
[2018-05-09 07:26] LABS: CALCIUM 9.1 mg/dl (8.6-10.4)
[2018-05-09 07:27] LABS: ALB/GLOB RATIO 1.2 (1.0-2.1); ALBUMIN 2.5 g/dL (3.5-5.0)
[2018-05-09] MEDS ORDERED: Insulin Human Regular 100 UNIT in Sodium Chloride 0.9% 99 ML IV PRN (07:30)
[2018-05-09] MEDS ORDERED: Pantoprazole 80 MG in Sodium Chloride 0.9% 100 ML IVP ONE (08:00)
[2018-05-09] MEDS: Pantoprazole 80 MG in Sodium Chloride 0.9% 100 ML IVPB SCH ×2 (08:45→16:39)
--- NOTE | 2018-05-09 09:14 | RAD ---
Date of service: 05/09/2018 HISTORY: ETT COMPARISON: 05/07/2018 FINDINGS: The endotracheal tube terminates at the renata. The right IJV line terminates in the SVC. LUNGS: The lungs are clear. PLEURA: No significant pleural effusion identified, no pneumothorax apparent. CARDIOVASCULAR: The heart is normal in size. Status post CABG of left-sided AICD. OSSEOUS STRUCTURES: No significant abnormalities. VISUALIZED UPPER ABDOMEN: Normal. OTHER FINDINGS: None. IMPRESSION: Endotracheal tube is low in position and terminates at the renata. Repositioning is advised. Right IJV line terminates in the SVC. No acute findings.
--- NOTE | 2018-05-09 09:34 | CP.PCM.CON ---
History of Present Illness - History of Present Illness History of Present Illness: Surgery progress note for Dr. Black Consulted for: GI bleed Patient intubated and sedated, no family at bedside. H&P gleaned from chart and ICU Pt is an 87F with extensive PMH who presented to the ER from [facility] for altered mental status and elevated glucose. Patient was admitted for DKA/sepsis workup. This AM patient was found to be apneic and was intubated and had a large melenic stool. Hgb was found to be 4.4, patient became hypotensive, was given a fluid bolus challenge, 2 units PRBC, 2 units of FFP and started on levophed. Pt currently hemodynamically stable, but had a second large melenic BM. Patient has a history of blood thinner use but has not documentation of recent use. PMH: CAD, RA, CHF, COPD, DM2, CKD, GERD, HTN, HLD PSH: CABG, CEA, gastrostomy tube, coronary artery stents, pacemaker ALL: iodine, pcn, plavix, losartan, nitrogylcerine Review of Systems - Review of Systems Systems not reviewed;Unavailable: Altered Mental Status Past Patient History - Infectious Disease Hx of Infectious Diseases: None - Past Medical History & Family History Past Medical History?: Yes - Past Social History Smoking Status: Former Smoker - CARDIAC Hx Cardia Arrhythmia: Yes Hx Congestive Heart Failure: Yes Hx Hypercholesterolemia: Yes Hx Hypertension: Yes Hx Pacemaker: Yes - PULMONARY Hx Bronchitis: Yes Hx Chronic Obstructive Pulmonary Disease (COPD): Yes Hx Pneumonia: Yes - NEUROLOGICAL Hx Seizures: No Other/Comment: CONFUSION - HEENT Hx HEENT Problems: Yes Hx Cataracts: Yes (2000 Rt.Eye,2009Left Eye) - RENAL Hx Chronic Kidney Disease: No - ENDOCRINE/METABOLIC Hx Diabetes Mellitus Type 2: Yes - HEMATOLOGICAL/ONCOLOGICAL Hx Human Immunodeficiency Virus (HIV): No - INTEGUMENTARY Hx Dermatological Problems: No Other/Comment: MACERATED PEG SITE. LEFT BUTTOCK PRESSURE ULCER. JACEK. HEEL DISCOLORATION - MUSCULOSKELETAL/RHEUMATOLOGICAL Hx Arthritis: Yes Hx Osteoporosis: Yes Hx Rheumatoid Arthritis: Yes - GASTROINTESTINAL Hx Gastrointestinal Disorders: Yes Hx Colitis: Yes Hx Gastroesophageal Reflux: Yes HX Swallowing Problems: Yes (Achalasia. 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) Hx Coronary Stent: Yes - ANESTHESIA Hx Anesthesia: Yes Hx Anesthesia Reactions: No Hx Malignant Hyperthermia: No Meds Allergies/Adverse Reactions: Allergies Allergy/AdvReac Type Severity Reaction Status Date / Time iodine Allergy REDNESS Verified 05/07/18 08:50 Penicillins Allergy ANGIOEDEMA Verified 05/07/18 08:45 clopidogrel [From Plavix] AdvReac HEADACHE Verified 05/07/18 08:45 losartan [From Cozaar] AdvReac DIZZINESS Verified 05/07/18 08:45 nitroglycerin AdvReac DIZZINESS Verified 05/07/18 08:45 - Medications Medications: Current Medications Albuterol/Ipratropium (Duoneb 3 Mg/0.5 Mg (3 Ml) Ud) 3 ml INH RQ6 PRN PRN Reason: Cough Aspirin (Aspirin Chewable) 81 mg PO DAILY JUDY Dextrose (Dextrose 50% Inj) 0 ml IV STAT PRN; Protocol PRN Reason: Hypoglycemia Protocol Dextrose (Glutose 15) 0 gm PO ONCE PRN; Protocol PRN Reason: Hypoglycemia Protocol Enoxaparin Sodium (Lovenox) 40 mg SC DAILY JUDY Glucagon (Glucagen Diagnostic Kit) 0 mg IM STAT PRN; Protocol PRN Reason: Hypoglycemia Protocol Dextrose (Dextrose 5% In Water 1000 Ml) 1,000 mls @ 0 mls/hr IV .Q0M PRN; Protocol PRN Reason: Hypoglycemia Protocol Sodium Chloride (Sodium Chloride 0.9%) 1,000 mls @ 125 mls/hr IV .Q8H JUDY Last Admin: 05/09/18 06:45 Dose: Not Given Aztreonam 1 gm/ Sodium (Chloride) 100 mls @ 100 mls/hr IVPB Q8H JUDY; Protocol Stop: 05/10/18 22:01 Last Admin: 05/09/18 05:45 Dose: 100 mls/hr Norepinephrine Bitartrate 4 mg (/ Sodium Chloride) 250 mls @ 37.5 mls/hr IV .Q6H40M PRN; Protocol PRN Reason: TITRATE PER MD ORDER Last Titration: 05/09/18 07:30 Dose: 8 mcg/min, 30 mls/hr Sodium Bicarbonate 150 meq/ (Sodium Chloride) 1,150 mls @ 50 mls/hr IV .Q23H JUDY Last Admin: 05/09/18 08:17 Dose: 50 mls/hr Insulin Human Regular 100 unit (/ Sodium Chloride) 100 mls @ 2 mls/hr IV .Q24H PRN; Protocol PRN Reason: FOLLOW PROTOCOL Last Titration: 05/09/18 09:05 Dose: 7 units/hr, 7 mls/hr Pantoprazole Sodium 80 mg/ (Sodium Chloride) 100 mls @ 10 mls/hr IVPB .Q10H JUDY Last Admin: 05/09/18 08:45 Dose: 10 mls/hr Insulin Aspart (Novolog) 0 unit SC Q6 JUDY; Protocol Last Admin: 05/09/18 06:25 Dose: 10 u Mupirocin (Bactroban Ointment) 0 gm TOP BID [facility] Last Admin: 05/08/18 18:51 Dose: 1 applic Rosuvastatin Calcium (Crestor) 10 mg PO HS [facility] Last Admin: 05/08/18 22:06 Dose: 10 mg Physical Exam - Constitutional Appears: Non-toxic, No Acute Distress Additional comments: sedated - Head Exam Head Exam: ATRAUMATIC, NORMOCEPHALIC - Eye Exam Eye Exam: Normal appearance. 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 absent: Distended, Tenderness Additional comments: large melenic stool present in the bed, gastrostomy tube flushed with ,minimal clear fluid and dark green particle return, gastrostomy tube with excoriated skin surrounding insertion site, jiang/yellow fluid drainage. rubber hub of gastrostomy tube not flush with the skin. - Extremities Exam Extremities exam: Negative for: calf tenderness, pedal edema - Neurological Exam Neurological exam: Altered Additional comments: sedated - Psychiatric Exam Additional comments: sedated - Skin Skin Exam: Dry, Pallor, Warm Results - Vital Signs Recent Vital Signs: Last Vital Signs Temp 95.9 F L 05/09/18 08:31 Pulse 104 H 05/09/18 09:16 Resp 24 05/09/18 09:16 BP 99/29 L 05/09/18 09:16 Pulse Ox 100 05/09/18 09:16 - Labs Result Diagrams: 05/09/18 10:11 05/09/18 11:42 Labs: Laboratory Results - last 24 hr 05/08/18 05/08/18 05/08/18 10:06 10:06 11:34 WBC 20.4 H RBC 2.52 L Hgb 8.2 L Hct 24.8 L MCV 98.2 D MCH 32.4 H MCHC 33.0 RDW 15.6 H Plt Count 348 MPV 7.8 Neut % (Auto) 76.3 H Lymph % (Auto) 13.4 L [place] % (Auto) 9.1 Eos % (Auto) 0.4 Baso % (Auto) 0.8 Neut # (Auto) 15.5 H Lymph # (Auto) 2.7 [place] # (Auto) 1.8 H Eos # (Auto) 0.1 Baso # (Auto) 0.2 Puncture Site pCO2 pO2 HCO3 ABG pH ABG Total CO2 ABG O2 Saturation ABG Base Excess Scout Test ABG Potassium A-a O2 Difference Respiratory Index Sodium Chloride Glucose Lactate Vent Mode Mechanical Rate FiO2 Tidal Volume PEEP Crit Value Called To Crit Value Called By Crit Value Read Back Blood Gas Notified Time Potassium Carbon Dioxide Anion Gap BUN Creatinine Est GFR ( Amer) Est GFR (Non-Af Amer) POC Glucose (mg/dL) 304 H Random Glucose Lactic Acid Calcium Phosphorus Magnesium Total Bilirubin AST ALT Alkaline Phosphatase Total Protein Albumin Globulin Albumin/Globulin Ratio Arterial Blood Potassium Blood Type A POSITIVE Antibody Screen Negative 05/08/18 05/08/18 05/09/18 17:47 23:25 06:13 WBC RBC Hgb Hct MCV MCH MCHC RDW Plt Count MPV Neut % (Auto) Lymph % (Auto) [place] % (Auto) Eos % (Auto) Baso % (Auto) Neut # (Auto) Lymph # (Auto) [place] # (Auto) Eos # (Auto) Baso # (Auto) Puncture Site pCO2 pO2 HCO3 ABG pH ABG Total CO2 ABG O2 Saturation ABG Base Excess Scout Test ABG Potassium A-a O2 Difference Respiratory Index Sodium Chloride Glucose Lactate Vent Mode Mechanical Rate FiO2 Tidal Volume PEEP Crit Value Called To Crit Value Called By Crit Value Read Back Blood Gas Notified Time Potassium Carbon Dioxide Anion Gap BUN Creatinine Est GFR ( Amer) Est GFR (Non-Af Amer) POC Glucose (mg/dL) 343 H 322 H > 500 H* Random Glucose Lactic Acid Calcium Phosphorus Magnesium Total Bilirubin AST ALT Alkaline Phosphatase Total Protein Albumin Globulin Albumin/Globulin Ratio Arterial Blood Potassium Blood Type Antibody Screen 05/09/18 05/09/18 05/09/18 06:15 06:20 06:38 WBC 19.8 H RBC 1.37 L Hgb 4.4 L* D Hct 15.5 L MCV 112.6 H D MCH 31.8 H MCHC 28.2 L RDW 17.2 H Plt Count 315 MPV 8.4 Neut % (Auto) 75.0 Lymph % (Auto) 20.1 [place] % (Auto) 4.4 Eos % (Auto) 0.1 Baso % (Auto) 0.4 Neut # (Auto) 14.9 H Lymph # (Auto) 4.0 [place] # (Auto) 0.9 H Eos # (Auto) 0.0 Baso # (Auto) 0.1 Puncture Site Rt fem pCO2 17 L* pO2 411 H HCO3 8.0 L* ABG pH 7.12 L* ABG Total CO2 6.0 L ABG O2 Saturation 99.9 H ABG Base Excess -21.8 L Scout Test Na ABG Potassium 7.5 H* A-a O2 Difference 281.0 Respiratory Index 0.7 Sodium 155.0 H Chloride 125.0 H Glucose 544 H* D Lactate > 20.0 H* Vent Mode Prvc Mechanical Rate 20 FiO2 100.0 Tidal Volume 450 PEEP 5 Crit Value Called To Dr mg Crit Value Called By Martin rodriguez/rt Crit Value Read Back Y Blood Gas Notified Time 645 Potassium Carbon Dioxide Anion Gap BUN Creatinine Est GFR ( Amer) Est GFR (Non-Af Amer) POC Glucose (mg/dL) > 500 H* Random Glucose Lactic Acid Calcium Phosphorus Magnesium Total Bilirubin AST ALT Alkaline Phosphatase Total Protein Albumin Globulin Albumin/Globulin Ratio Arterial Blood Potassium 7.5 H* Blood Type Antibody Screen 05/09/18 05/09/18 05/09/18 06:38 06:38 08:22 WBC RBC Hgb Hct MCV MCH MCHC RDW Plt Count MPV Neut % (Auto) Lymph % (Auto) [place] % (Auto) Eos % (Auto) Baso % (Auto) Neut # (Auto) Lymph # (Auto) [place] # (Auto) Eos # (Auto) Baso # (Auto) Puncture Site pCO2 pO2 HCO3 ABG pH ABG Total CO2 ABG O2 Saturation ABG Base Excess Scout Test ABG Potassium A-a O2 Difference Respiratory Index Sodium 161 H* Chloride 124 H Glucose Lactate Vent Mode Mechanical Rate FiO2 Tidal Volume PEEP Crit Value Called To Crit Value Called By Crit Value Read Back Blood Gas Notified Time Potassium 7.2 H* D Carbon Dioxide 8 L* D Anion Gap 36 H BUN 46 H Creatinine 1.1 Est GFR ( Amer) 57 Est GFR (Non-Af Amer) 47 POC Glucose (mg/dL) 471 H* Random Glucose 545 H* D Lactic Acid 20.4 H* Calcium 9.1 Phosphorus 6.7 H Magnesium 2.9 H Total Bilirubin 0.4 AST 139 H D ALT 65 H D Alkaline Phosphatase 61 Total Protein 4.5 L Albumin 2.5 L Globulin 2.0 L Albumin/Globulin Ratio 1.2 Arterial Blood Potassium Blood Type Antibody Screen Assessment & Plan - Assessment and Plan (Free Text) Assessment: 87F with GI bleed Plan: Trend H/H, transfuse as needed--if patient requires further transfusions, consider 1:1:1 PRBC, FFP, and platelets F/U GI--F/U EGD today Recommend IR consult if patient is unstable or source of bleed unidentifiable with endoscopy Continue current management per ICU Protonix PRN pain medication NPO No plans for general surgery at this time--will be on hand if bleed does not resolve and there is an identifiable source of the bleed not managed by GI/IR Discussed with Dr. Wayne Osorio, PGY2
[2018-05-09 09:50] LABS: INR 1.7; PROTHROMBIN TIME 18.4 SECONDS (9.7-12.2)
--- NOTE | 2018-05-09 09:50 | RAD ---
Date of service: 05/09/2018 HISTORY: vent COMPARISON: 05/09/2018 at 6:44 a.m. FINDINGS: Endotracheal tube terminates 1.4 cm proximal to the renata. The right IJV line terminates in the SVC. Stable position of left-sided AICD. LUNGS: The lungs are well inflated and clear. PLEURA: No significant pleural effusion identified, no pneumothorax apparent. CARDIOVASCULAR: The heart is normal in size. Atherosclerotic aortic arch calcifications are present. Status post CABG. OSSEOUS STRUCTURES: Within normal limits for the patient's age. There is levoscoliosis in the lumbar spine. VISUALIZED UPPER ABDOMEN: Normal. OTHER FINDINGS: None. IMPRESSION: Endotracheal tube terminates 1.4 cm proximal to the renata. No acute findings.
[2018-05-09 10:18] LABS: MEAN CORPUSCULAR HEMOGLOBIN 29.5 pg (27.0-31.0); MEAN PLATELET VOLUME 8.1 fL (7.2-11.7); RBC 3.66 Mil/uL (3.80-5.20); RED CELL DISTRIBUTION WIDTH 19.4 % (11.5-14.5); WHITE BLOOD COUNT 29.1 K/uL (4.8-10.8)
[2018-05-09 10:21] LABS: HEMOGLOBIN 10.8 g/dL (11.0-16.0)
[2018-05-09 10:22] LABS: MEAN CELL VOLUME 92.2 fL (81.0-99.0)
--- NOTE | 2018-05-09 10:22 | CP.PCM.PN ---
Subjective - Date & Time of Evaluation Date of Evaluation: 05/08/18 Time of Evaluation: 20:47 - Subjective Subjective: Patient suddenly developed acute respiratory insufficiency. Acute drop in blood pressure and also bradycardia. Immediately patient was intubated. Patient also had a severe shock. Likely was having severe hemorrhagic shock. Started on intravenous IV fluids. Blood transfusion. Spoke to the family. Immediate [place] TLC was also inserted without any competition. Objective - Vital Signs/Intake and Output Vital Signs (last 24 hours): Temp Pulse Resp BP Pulse Ox 96.6 F L 107 H 22 122/67 100 05/09/18 10:05 05/09/18 10:05 05/09/18 10:05 05/09/18 10:05 05/09/18 09:16 Intake and Output: 05/09/18 05/09/18 06:59 18:59 Intake Total 1990 670 Output Total 900 Balance 1090 670 - Medications Medications: Current Medications Albuterol/Ipratropium (Duoneb 3 Mg/0.5 Mg (3 Ml) Ud) 3 ml INH RQ6 PRN PRN Reason: Cough Aspirin (Aspirin Chewable) 81 mg PO DAILY JUDY Dextrose (Dextrose 50% Inj) 0 ml IV STAT PRN; Protocol PRN Reason: Hypoglycemia Protocol Dextrose (Glutose 15) 0 gm PO ONCE PRN; Protocol PRN Reason: Hypoglycemia Protocol Enoxaparin Sodium (Lovenox) 40 mg SC DAILY JUDY Glucagon (Glucagen Diagnostic Kit) 0 mg IM STAT PRN; Protocol PRN Reason: Hypoglycemia Protocol Dextrose (Dextrose 5% In Water 1000 Ml) 1,000 mls @ 0 mls/hr IV .Q0M PRN; Protocol PRN Reason: Hypoglycemia Protocol Sodium Chloride (Sodium Chloride 0.9%) 1,000 mls @ 125 mls/hr IV .Q8H JUDY Last Admin: 05/09/18 06:45 Dose: Not Given Aztreonam 1 gm/ Sodium (Chloride) 100 mls @ 100 mls/hr IVPB Q8H JUDY; Protocol Stop: 05/10/18 22:01 Last Admin: 05/09/18 05:45 Dose: 100 mls/hr Norepinephrine Bitartrate 4 mg (/ Sodium Chloride) 250 mls @ 37.5 mls/hr IV .Q6H40M PRN; Protocol PRN Reason: TITRATE PER MD ORDER Last Titration: 05/09/18 07:30 Dose: 8 mcg/min, 30 mls/hr Sodium Bicarbonate 150 meq/ (Sodium Chloride) 1,150 mls @ 50 mls/hr IV .Q23H JUDY Last Admin: 05/09/18 08:17 Dose: 50 mls/hr Insulin Human Regular 100 unit (/ Sodium Chloride) 100 mls @ 2 mls/hr IV .Q24H PRN; Protocol PRN Reason: FOLLOW PROTOCOL Last Titration: 05/09/18 09:05 Dose: 7 units/hr, 7 mls/hr Pantoprazole Sodium 80 mg/ (Sodium Chloride) 100 mls @ 10 mls/hr IVPB .Q10H JUDY Last Admin: 05/09/18 08:45 Dose: 10 mls/hr Insulin Aspart (Novolog) 0 unit SC Q6 JUDY; Protocol Last Admin: 05/09/18 06:25 Dose: 10 u Mupirocin (Bactroban Ointment) 0 gm TOP BID JUDY Last Admin: 05/08/18 18:51 Dose: 1 applic Rosuvastatin Calcium (Crestor) 10 mg PO HS JUDY Last Admin: 05/08/18 22:06 Dose: 10 mg Sodium Polystyrene Sulfonate (Kayexalate Susp) 30 gm GT ONCE ONE Stop: 05/09/18 10:31 - Labs Labs: 05/09/18 06:38 05/09/18 06:38 PT 18.4 SECONDS (9.7-12.2) H 05/09/18 09:10 INR 1.7 05/09/18 09:10 APTT 22 SECONDS (21-34) 05/09/18 09:10
--- NOTE | 2018-05-09 10:22 | CP.PCM.HP ---
History of Present Illness - History of Present Illness History of Present Illness: Patient is an 87 year old female with past medical history HTN, CHF, CAD, COPD, T2DM, tracheostomy following aspiration pneumonitis, presenting with altered mental status. Patient was noted to be increasingly lethargic over the past week after being brought home from [facility]. Patient has been admitted to [facility] ICU in the past for respiratory failure. Patient was found to be septic with blood glucose level of 465 and so ICU was consulted. In ED, patient was given 2 gm aztreonam, 1 gm vancomycin, 2 L NS boluses. History was obtained from prior records as patient is a poor historian. PMH: anxiety, rheumatoid arthritis, CAD, cardiac arrhythmia, CHF, COPD, T2DM, GERD (esophageal stricture), HTN, hypercholesterolemia, osteoporosis PSH: CABG (1991), carotid endarterectomy (2004), coronary stent, pacemaker Social: former smoker. Allergies: iodine, penicillins, clopidogrel, losartan, nitroglycerin Present on Admission - Present on Admission Any Indicators Present on Admission: No History of DVT/PE: No History of Uncontrolled Diabetes: No Urinary Catheter: No Decubitus Ulcer Present: No Past Patient History - Infectious Disease Hx of Infectious Diseases: None - Past Medical History & Family History Past Medical History?: Yes - Past Social History Smoking Status: Former Smoker - CARDIAC Hx Cardia Arrhythmia: Yes Hx Congestive Heart Failure: Yes Hx Hypercholesterolemia: Yes Hx Hypertension: Yes Hx Pacemaker: Yes - PULMONARY Hx Bronchitis: Yes Hx Chronic Obstructive Pulmonary Disease (COPD): Yes Hx Pneumonia: Yes - NEUROLOGICAL Hx Seizures: No Other/Comment: CONFUSION - HEENT Hx HEENT Problems: Yes Hx Cataracts: Yes (2000 Rt.Eye,2009Left Eye) - RENAL Hx Chronic Kidney Disease: No - ENDOCRINE/METABOLIC Hx Diabetes Mellitus Type 2: Yes - HEMATOLOGICAL/ONCOLOGICAL Hx Human Immunodeficiency Virus (HIV): No - INTEGUMENTARY Hx Dermatological Problems: No Other/Comment: MACERATED PEG SITE. LEFT BUTTOCK PRESSURE ULCER. JACEK. HEEL DISCOLORATION - MUSCULOSKELETAL/RHEUMATOLOGICAL Hx Arthritis: Yes Hx Osteoporosis: Yes Hx Rheumatoid Arthritis: Yes - GASTROINTESTINAL Hx Gastrointestinal Disorders: Yes Hx Colitis: Yes Hx Gastroesophageal Reflux: Yes HX Swallowing Problems: Yes (Achalasia. 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) Hx Coronary Stent: Yes - ANESTHESIA Hx Anesthesia: Yes Hx Anesthesia Reactions: No Hx Malignant Hyperthermia: No Meds Allergies/Adverse Reactions: Allergies Allergy/AdvReac Type Severity Reaction Status Date / Time iodine Allergy REDNESS Verified 05/07/18 08:50 Penicillins Allergy ANGIOEDEMA Verified 05/07/18 08:45 clopidogrel [From Plavix] AdvReac HEADACHE Verified 05/07/18 08:45 losartan [From Cozaar] AdvReac DIZZINESS Verified 05/07/18 08:45 nitroglycerin AdvReac DIZZINESS Verified 05/07/18 08:45 Results - Vital Signs Recent Vital Signs: Last Vital Signs Temp 96.6 F L 05/09/18 10:05 Pulse 107 H 05/09/18 10:05 Resp 22 05/09/18 10:05 BP 122/67 05/09/18 10:05 Pulse Ox 100 05/09/18 09:16 - Labs Result Diagrams: 05/21/18 06:46 05/21/18 06:46 Labs: Laboratory Results - last 24 hr 05/08/18 05/08/18 05/08/18 10:06 11:34 17:47 WBC RBC Hgb Hct MCV MCH MCHC RDW Plt Count MPV Neut % (Auto) Lymph % (Auto) [place] % (Auto) Eos % (Auto) Baso % (Auto) Neut # (Auto) Lymph # (Auto) [place] # (Auto) Eos # (Auto) Baso # (Auto) PT INR APTT Puncture Site pCO2 pO2 HCO3 ABG pH ABG Total CO2 ABG O2 Saturation ABG Base Excess Scout Test ABG Potassium A-a O2 Difference Respiratory Index Sodium Chloride Glucose Lactate Vent Mode Mechanical Rate FiO2 Tidal Volume PEEP Crit Value Called To Crit Value Called By Crit Value Read Back Blood Gas Notified Time Potassium Carbon Dioxide Anion Gap BUN Creatinine Est GFR ( Amer) Est GFR (Non-Af Amer) POC Glucose (mg/dL) 304 H 343 H Random Glucose Lactic Acid Calcium Phosphorus Magnesium Total Bilirubin AST ALT Alkaline Phosphatase Total Protein Albumin Globulin Albumin/Globulin Ratio Arterial Blood Potassium Blood Type A POSITIVE Antibody Screen Negative 05/08/18 05/09/18 05/09/18 23:25 06:13 06:15 WBC RBC Hgb Hct MCV MCH MCHC RDW Plt Count MPV Neut % (Auto) Lymph % (Auto) [place] % (Auto) Eos % (Auto) Baso % (Auto) Neut # (Auto) Lymph # (Auto) [place] # (Auto) Eos # (Auto) Baso # (Auto) PT INR APTT Puncture Site pCO2 pO2 HCO3 ABG pH ABG Total CO2 ABG O2 Saturation ABG Base Excess Scout Test ABG Potassium A-a O2 Difference Respiratory Index Sodium Chloride Glucose Lactate Vent Mode Mechanical Rate FiO2 Tidal Volume PEEP Crit Value Called To Crit Value Called By Crit Value Read Back Blood Gas Notified Time Potassium Carbon Dioxide Anion Gap BUN Creatinine Est GFR ( Amer) Est GFR (Non-Af Amer) POC Glucose (mg/dL) 322 H > 500 H* > 500 H* Random Glucose Lactic Acid Calcium Phosphorus Magnesium Total Bilirubin AST ALT Alkaline Phosphatase Total Protein Albumin Globulin Albumin/Globulin Ratio Arterial Blood Potassium Blood Type Antibody Screen 05/09/18 05/09/18 05/09/18 06:20 06:38 06:38 WBC 19.8 H RBC 1.37 L Hgb 4.4 L* D Hct 15.5 L MCV 112.6 H D MCH 31.8 H MCHC 28.2 L RDW 17.2 H Plt Count 315 MPV 8.4 Neut % (Auto) 75.0 Lymph % (Auto) 20.1 [place] % (Auto) 4.4 Eos % (Auto) 0.1 Baso % (Auto) 0.4 Neut # (Auto) 14.9 H Lymph # (Auto) 4.0 [place] # (Auto) 0.9 H Eos # (Auto) 0.0 Baso # (Auto) 0.1 PT INR APTT Puncture Site Rt fem pCO2 17 L* pO2 411 H HCO3 8.0 L* ABG pH 7.12 L* ABG Total CO2 6.0 L ABG O2 Saturation 99.9 H ABG Base Excess -21.8 L Scout Test Na ABG Potassium 7.5 H* A-a O2 Difference 281.0 Respiratory Index 0.7 Sodium 155.0 H 161 H* Chloride 125.0 H 124 H Glucose 544 H* D Lactate > 20.0 H* Vent Mode Prvc Mechanical Rate 20 FiO2 100.0 Tidal Volume 450 PEEP 5 Crit Value Called To Dr mg Crit Value Called By Martin rodriguez/rt Crit Value Read Back Y Blood Gas Notified Time 645 Potassium 7.2 H* D Carbon Dioxide 8 L* D Anion Gap 36 H BUN 46 H Creatinine 1.1 Est GFR ( Amer) 57 Est GFR (Non-Af Amer) 47 POC Glucose (mg/dL) Random Glucose 545 H* D Lactic Acid Calcium 9.1 Phosphorus 6.7 H Magnesium 2.9 H Total Bilirubin 0.4 AST 139 H D ALT 65 H D Alkaline Phosphatase 61 Total Protein 4.5 L Albumin 2.5 L Globulin 2.0 L Albumin/Globulin Ratio 1.2 Arterial Blood Potassium 7.5 H* Blood Type Antibody Screen 05/09/18 05/09/18 05/09/18 06:38 08:22 09:10 WBC RBC Hgb Hct MCV MCH MCHC RDW Plt Count MPV Neut % (Auto) Lymph % (Auto) [place] % (Auto) Eos % (Auto) Baso % (Auto) Neut # (Auto) Lymph # (Auto) [place] # (Auto) Eos # (Auto) Baso # (Auto) PT 18.4 H INR 1.7 APTT 22 Puncture Site pCO2 pO2 HCO3 ABG pH ABG Total CO2 ABG O2 Saturation ABG Base Excess Scout Test ABG Potassium A-a O2 Difference Respiratory Index Sodium Chloride Glucose Lactate Vent Mode Mechanical Rate FiO2 Tidal Volume PEEP Crit Value Called To Crit Value Called By Crit Value Read Back Blood Gas Notified Time Potassium Carbon Dioxide Anion Gap BUN Creatinine Est GFR ( Amer) Est GFR (Non-Af Amer) POC Glucose (mg/dL) 471 H* Random Glucose Lactic Acid 20.4 H* Calcium Phosphorus Magnesium Total Bilirubin AST ALT Alkaline Phosphatase Total Protein Albumin Globulin Albumin/Globulin Ratio Arterial Blood Potassium Blood Type Antibody Screen 05/09/18 05/09/18 05/09/18 09:19 09:59 10:07 WBC RBC Hgb Hct MCV MCH MCHC RDW Plt Count MPV Neut % (Auto) Lymph % (Auto) [place] % (Auto) Eos % (Auto) Baso % (Auto) Neut # (Auto) Lymph # (Auto) [place] # (Auto) Eos # (Auto) Baso # (Auto) PT INR APTT Puncture Site pCO2 pO2 HCO3 ABG pH ABG Total CO2 ABG O2 Saturation ABG Base Excess Scout Test ABG Potassium A-a O2 Difference Respiratory Index Sodium Chloride Glucose Lactate Vent Mode Mechanical Rate FiO2 Tidal Volume PEEP Crit Value Called To Crit Value Called By Crit Value Read Back Blood Gas Notified Time Potassium Carbon Dioxide Anion Gap BUN Creatinine Est GFR ( Amer) Est GFR (Non-Af Amer) POC Glucose (mg/dL) 433 H* 438 H* 410 H* Random Glucose Lactic Acid Calcium Phosphorus Magnesium Total Bilirubin AST ALT Alkaline Phosphatase Total Protein Albumin Globulin Albumin/Globulin Ratio Arterial Blood Potassium Blood Type Antibody Screen Assessment & Plan - Assessment and Plan (Free Text) Assessment: Assessment: Patient is an 87 year old female with past medical history HTN, CHF, CAD, COPD, T2DM, tracheostomy following aspiration pneumonitis, presenting with altered mental status and found to be septic and hyperglycemic. Plan: Neuro: - alert, however is lethargic Cardio: - no pressors indicated at this time Pulm: - nasal cannula as tolerated GI: - swallow eval Endo: - insulin drip - NS at 125 ccs/hr Renal: - no acute issues ID: - Febrile, tachycardic, and tachypneic in ED - Given 2 gm aztreonam and 1 gm vancomycin - Followup blood, wound, urine cultures PPX: Lovenox 40 mg SC daily, no GI prophylaxis indicated at this time
[2018-05-09] MEDS ORDERED: Sod Polystyrene Sulf 15 gm/60 ml Susp GT ONE (10:30)
[2018-05-09] MEDS ORDERED: Sodium Bicarbonate 8.4% 150 MEQ in Dextrose 5% In Water 1,000 ML IV SCH (10:45)
[2018-05-09] MEDS ORDERED: Sod Polystyrene Sulf 15 gm/60 ml Susp PO ONE (11:00)
--- NOTE | 2018-05-09 11:11 | CP.PCM.CON ---
History of Present Illness - History of Present Illness History of Present Illness: I was first notified about pt a 7 am 05/09/18. 87 yo female h/o arrhthmia, CHF, CAD, HTN, OA, CPD, DM, NANCY, esoph achalasia, s/p aspiration and Trach and PEG placement, now presents to with sepsis and AMS. Intubated. Developed melena over night. Became hypotensive. PEG tube lavage shows no blood PMH- Achalasia, failed botox and dialtations in past. 2014- GIBleed- colonosocpy felt that bleed was from RIGHT SIDED DIVERTICULOSIS. Also removed polyp at that time. Review of Systems - Review of Systems Systems not reviewed;Unavailable: Altered Mental Status - Constitutional Constitutional: Fatigue - Cardiovascular Cardiovascular: Dyspnea - Gastrointestinal Gastrointestinal: Dysphagia, Melena. absent: Hematemesis - Genitourinary Genitourinary: absent: Hematuria - Musculoskeletal Musculoskeletal: absent: Muscle Cramps - Integumentary Integumentary: absent: Rash, Jaundice - Neurological Neurological: absent: Convulsions Past Patient History - Infectious Disease Hx of Infectious Diseases: None - Past Medical History & Family History Past Medical History?: Yes - Past Social History Smoking Status: Former Smoker - CARDIAC Hx Cardia Arrhythmia: Yes Hx Congestive Heart Failure: Yes Hx Hypercholesterolemia: Yes Hx Hypertension: Yes Hx Pacemaker: Yes - PULMONARY Hx Bronchitis: Yes Hx Chronic Obstructive Pulmonary Disease (COPD): Yes Hx Pneumonia: Yes - NEUROLOGICAL Hx Seizures: No Other/Comment: CONFUSION - HEENT Hx HEENT Problems: Yes Hx Cataracts: Yes (2000 Rt.Eye,2009Left Eye) - RENAL Hx Chronic Kidney Disease: No - ENDOCRINE/METABOLIC Hx Diabetes Mellitus Type 2: Yes - HEMATOLOGICAL/ONCOLOGICAL Hx Human Immunodeficiency Virus (HIV): No - INTEGUMENTARY Hx Dermatological Problems: No Other/Comment: MACERATED PEG SITE. LEFT BUTTOCK PRESSURE ULCER. JACEK. HEEL DISCOLORATION - MUSCULOSKELETAL/RHEUMATOLOGICAL Hx Arthritis: Yes Hx Osteoporosis: Yes Hx Rheumatoid Arthritis: Yes - GASTROINTESTINAL Hx Gastrointestinal Disorders: Yes Hx Colitis: Yes Hx Gastroesophageal Reflux: Yes HX Swallowing Problems: Yes (Achalasia. 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) Hx Coronary Stent: Yes - ANESTHESIA Hx Anesthesia: Yes Hx Anesthesia Reactions: No Hx Malignant Hyperthermia: No Meds Allergies/Adverse Reactions: Allergies Allergy/AdvReac Type Severity Reaction Status Date / Time iodine Allergy REDNESS Verified 05/07/18 08:50 Penicillins Allergy ANGIOEDEMA Verified 05/07/18 08:45 clopidogrel [From Plavix] AdvReac HEADACHE Verified 05/07/18 08:45 losartan [From Cozaar] AdvReac DIZZINESS Verified 05/07/18 08:45 nitroglycerin AdvReac DIZZINESS Verified 05/07/18 08:45 - Medications Medications: Current Medications Albuterol/Ipratropium (Duoneb 3 Mg/0.5 Mg (3 Ml) Ud) 3 ml INH RQ6 PRN PRN Reason: Cough Aspirin (Aspirin Chewable) 81 mg PO DAILY JUDY Dextrose (Dextrose 50% Inj) 0 ml IV STAT PRN; Protocol PRN Reason: Hypoglycemia Protocol Dextrose (Glutose 15) 0 gm PO ONCE PRN; Protocol PRN Reason: Hypoglycemia Protocol Enoxaparin Sodium (Lovenox) 40 mg SC DAILY JUDY Glucagon (Glucagen Diagnostic Kit) 0 mg IM STAT PRN; Protocol PRN Reason: Hypoglycemia Protocol Dextrose (Dextrose 5% In Water 1000 Ml) 1,000 mls @ 0 mls/hr IV .Q0M PRN; Pro tocol PRN Reason: Hypoglycemia Protocol Sodium Chloride (Sodium Chloride 0.9%) 1,000 mls @ 125 mls/hr IV .Q8H JUDY Last Admin: 05/09/18 06:45 Dose: Not Given Aztreonam 1 gm/ Sodium (Chloride) 100 mls @ 100 mls/hr IVPB Q8H JUDY; Protocol Stop: 05/10/18 22:01 Last Admin: 05/09/18 05:45 Dose: 100 mls/hr Norepinephrine Bitartrate 4 mg (/ Sodium Chloride) 250 mls @ 37.5 mls/hr IV .Q6H40M PRN; Protocol PRN Reason: TITRATE PER MD ORDER Last Titration: 05/09/18 07:30 Dose: 8 mcg/min, 30 mls/hr Insulin Human Regular 100 unit (/ Sodium Chloride) 100 mls @ 2 mls/hr IV .Q24H PRN; Protocol PRN Reason: FOLLOW PROTOCOL Last Titration: 05/09/18 09:05 Dose: 7 units/hr, 7 mls/hr Pantoprazole Sodium 80 mg/ (Sodium Chloride) 100 mls @ 10 mls/hr IVPB .Q10H JUDY Last Admin: 05/09/18 08:45 Dose: 10 mls/hr Sodium Bicarbonate 150 meq/ (Dextrose) 1,150 mls @ 75 mls/hr IV .[id number] REPLACED BY [facility] Insulin Aspart (Novolog) 0 unit SC Q6 JUDY; Protocol Last Admin: 05/09/18 06:25 Dose: 10 u Mupirocin (Bactroban Ointment) 0 gm TOP BID JUDY Last Admin: 05/08/18 18:51 Dose: 1 applic Rosuvastatin Calcium (Crestor) 10 mg PO HS REPLACED BY [facility] Last Admin: 05/08/18 22:06 Dose: 10 mg Physical Exam - Constitutional Appears: Confused, Chronically Ill - Respiratory Exam Respiratory Exam: Rhonchi - Cardiovascular Exam Cardiovascular Exam: Tachycardia - GI/Abdominal Exam GI & Abdominal Exam: Normal Bowel Sounds, Soft. absent: Distended, Guarding, Mass, Rebound, Tenderness Additional comments: PEG in place. - Neurological Exam Additional comments: Intubated. responds - Psychiatric Exam Additional comments: can not be evaluated Results - Vital Signs Recent Vital Signs: Last Vital Signs Temp 97.4 F L 05/09/18 11:02 Pulse 117 H 05/09/18 11:02 Resp 20 05/09/18 11:02 BP 135/63 05/09/18 11:02 Pulse Ox 100 05/09/18 11:02 - Labs Result Diagrams: 05/09/18 10:11 05/09/18 06:38 Labs: Laboratory Results - last 24 hr 05/08/18 05/08/18 05/08/18 10:06 11:34 17:47 WBC RBC Hgb Hct MCV MCH MCHC RDW Plt Count MPV Neut % (Auto) Lymph % (Auto) Charlton % (Auto) Eos % (Auto) Baso % (Auto) Neut # (Auto) Lymph # (Auto) Charlton # (Auto) Eos # (Auto) Baso # (Auto) PT INR APTT Puncture Site pCO2 pO2 HCO3 ABG pH ABG Total CO2 ABG O2 Saturation ABG Base Excess Scout Test ABG Potassium A-a O2 Difference Respiratory Index Sodium Chloride Glucose Lactate Vent Mode Mechanical Rate FiO2 Tidal Volume PEEP Crit Value Called To Crit Value Called By Crit Value Read Back Blood Gas Notified Time Potassium Carbon Dioxide Anion Gap BUN Creatinine Est GFR ( Amer) Est GFR (Non-Af Amer) POC Glucose (mg/dL) 304 H 343 H Random Glucose Lactic Acid Calcium Phosphorus Magnesium Total Bilirubin AST ALT Alkaline Phosphatase Total Protein Albumin Globulin Albumin/Globulin Ratio Arterial Blood Potassium Blood Type A POSITIVE Antibody Screen Negative 05/08/18 05/09/18 05/09/18 23:25 06:13 06:15 WBC RBC Hgb Hct MCV MCH MCHC RDW Plt Count MPV Neut % (Auto) Lymph % (Auto) Charlton % (Auto) Eos % (Auto) Baso % (Auto) Neut # (Auto) Lymph # (Auto) Charlton # (Auto) Eos # (Auto) Baso # (Auto) PT INR APTT Puncture Site pCO2 pO2 HCO3 ABG pH ABG Total CO2 ABG O2 Saturation ABG Base Excess Scout Test ABG Potassium A-a O2 Difference Respiratory Index Sodium Chloride Glucose Lactate Vent Mode Mechanical Rate FiO2 Tidal Volume PEEP Crit Value Called To Crit Value Called By Crit Value Read Back Blood Gas Notified Time Potassium Carbon Dioxide Anion Gap BUN Creatinine Est GFR ( Amer) Est GFR (Non-Af Amer) POC Glucose (mg/dL) 322 H > 500 H* > 500 H* Random Glucose Lactic Acid Calcium Phosphorus Magnesium Total Bilirubin AST ALT Alkaline Phosphatase Total Protein Albumin Globulin Albumin/Globulin Ratio Arterial Blood Potassium Blood Type Antibody Screen 05/09/18 05/09/18 05/09/18 06:20 06:38 06:38 WBC 19.8 H RBC 1.37 L Hgb 4.4 L* D Hct 15.5 L MCV 112.6 H D MCH 31.8 H MCHC 28.2 L RDW 17.2 H Plt Count 315 MPV 8.4 Neut % (Auto) 75.0 Lymph % (Auto) 20.1 Charlton % (Auto) 4.4 Eos % (Auto) 0.1 Baso % (Auto) 0.4 Neut # (Auto) 14.9 H Lymph # (Auto) 4.0 Charlton # (Auto) 0.9 H Eos # (Auto) 0.0 Baso # (Auto) 0.1 PT INR APTT Puncture Site Rt fem pCO2 17 L* pO2 411 H HCO3 8.0 L* ABG pH 7.12 L* ABG Total CO2 6.0 L ABG O2 Saturation 99.9 H ABG Base Excess -21.8 L [place] Test Na ABG Potassium 7.5 H* A-a O2 Difference 281.0 Respiratory Index 0.7 Sodium 155.0 H 161 H* Chloride 125.0 H 124 H Glucose 544 H* D Lactate > 20.0 H* Vent Mode Prvc Mechanical Rate 20 FiO2 100.0 Tidal Volume 450 PEEP 5 Crit Value Called To Dr mg Crit Value Called By Martin [email or web address] Crit Value Read Back Y Blood Gas Notified Time 645 Potassium 7.2 H* D Carbon Dioxide 8 L* D Anion Gap 36 H BUN 46 H Creatinine 1.1 Est GFR ( Amer) 57 Est GFR (Non-Af Amer) 47 POC Glucose (mg/dL) Random Glucose 545 H* D Lactic Acid Calcium 9.1 Phosphorus 6.7 H Magnesium 2.9 H Total Bilirubin 0.4 AST 139 H D ALT 65 H D Alkaline Phosphatase 61 Total Protein 4.5 L Albumin 2.5 L Globulin 2.0 L Albumin/Globulin Ratio 1.2 Arterial Blood Potassium 7.5 H* Blood Type Antibody Screen 05/09/18 05/09/18 05/09/18 06:38 08:22 09:10 WBC RBC Hgb Hct MCV MCH MCHC RDW Plt Count MPV Neut % (Auto) Lymph % (Auto) Charlton % (Auto) Eos % (Auto) Baso % (Auto) Neut # (Auto) Lymph # (Auto) Charlton # (Auto) Eos # (Auto) Baso # (Auto) PT 18.4 H INR 1.7 APTT 22 Puncture Site pCO2 pO2 HCO3 ABG pH ABG Total CO2 ABG O2 Saturation ABG Base Excess Scout Test ABG Potassium A-a O2 Difference Respiratory Index Sodium Chloride Glucose Lactate Vent Mode Mechanical Rate FiO2 Tidal Volume PEEP Crit Value Called To Crit Value Called By Crit Value Read Back Blood Gas Notified Time Potassium Carbon Dioxide Anion Gap BUN Creatinine Est GFR ( Amer) Est GFR (Non-Af Amer) POC Glucose (mg/dL) 471 H* Random Glucose Lactic Acid 20.4 H* Calcium Phosphorus Magnesium Total Bilirubin AST ALT Alkaline Phosphatase Total Protein Albumin Globulin Albumin/Globulin Ratio Arterial Blood Potassium Blood Type Antibody Screen 05/09/18 05/09/18 05/09/18 09:19 09:59 10:07 WBC RBC Hgb Hct MCV MCH MCHC RDW Plt Count MPV Neut % (Auto) Lymph % (Auto) Charlton % (Auto) Eos % (Auto) Baso % (Auto) Neut # (Auto) Lymph # (Auto) [place] # (Auto) Eos # (Auto) Baso # (Auto) PT INR APTT Puncture Site pCO2 pO2 HCO3 ABG pH ABG Total CO2 ABG O2 Saturation ABG Base Excess Scout Test ABG Potassium A-a O2 Difference Respiratory Index Sodium Chloride Glucose Lactate Vent Mode Mechanical Rate FiO2 Tidal Volume PEEP Crit Value Called To Crit Value Called By Crit Value Read Back Blood Gas Notified Time Potassium Carbon Dioxide Anion Gap BUN Creatinine Est GFR ( Amer) Est GFR (Non-Af Amer) POC Glucose (mg/dL) 433 H* 438 H* 410 H* Random Glucose Lactic Acid Calcium Phosphorus Magnesium Total Bilirubin AST ALT Alkaline Phosphatase Total Protein Albumin Globulin Albumin/Globulin Ratio Arterial Blood Potassium Blood Type Antibody Screen 05/09/18 10:11 WBC 29.1 H RBC 3.66 L Hgb 10.8 L D Hct 33.8 L MCV 92.2 D MCH 29.5 MCHC 32.0 L RDW 19.4 H Plt Count 215 D MPV 8.1 Neut % (Auto) Lymph % (Auto) Charl[place] % (Auto) Eos % (Auto) Baso % (Auto) Neut # (Auto) Lymph # (Auto) [place] # (Auto) Eos # (Auto) Baso # (Auto) PT INR APTT Puncture Site pCO2 pO2 HCO3 ABG pH ABG Total CO2 ABG O2 Saturation ABG Base Excess Scout Test ABG Potassium A-a O2 Difference Respiratory Index Sodium Chloride Glucose Lactate Vent Mode Mechanical Rate FiO2 Tidal Volume PEEP Crit Value Called To Crit Value Called By Crit Value Read Back Blood Gas Notified Time Potassium Carbon Dioxide Anion Gap BUN Creatinine Est GFR ( Amer) Est GFR (Non-Af Amer) POC Glucose (mg/dL) Random Glucose Lactic Acid Calcium Phosphorus Magnesium Total Bilirubin AST ALT Alkaline Phosphatase Total Protein Albumin Globulin Albumin/Globulin Ratio Arterial Blood Potassium Blood Type Antibody Screen Assessment & Plan (1) Altered mental status Status: Acute (2) Sepsis Status: Acute (3) Anxiety Status: Acute (4) CAD (coronary artery disease) Status: Acute (5) Diabetes 1.5, managed as type 2 Status: Acute (6) Esophageal stricture Assessment and Plan: achalasia Status: Acute (7) Achalasia Status: Chronic Priority: Medium (8) Diabetes Status: Chronic (9) Anemia Status: Acute (10) GI bleed Assessment and Plan: Consider UPPEr GI source- ulcer, avm, vs lower- divertic. Had RB and diverticulosis 2013. At that time, it was thought that bleeding was from right sided diverticulosis. Rec- NPO, PPI, transfuse. EGD. Consider angiogram, colonsocopy. Seen by surgery team. Check K+ Status: Acute
[2018-05-09] MEDS ORDERED: Propofol 10 mg/ml Inj (20 ML) ONE (11:38)
[2018-05-09] MEDS ORDERED: Midazolam 2 MG/2 ML VIAL ONE (11:38)
[2018-05-09] MEDS ORDERED: Phenylephrine 10 mg/ml Inj ONE (11:39)
[2018-05-09] MEDS ORDERED: Sodium Chloride 0.9% 250 ML IV ONE (11:45)
[2018-05-09 12:09] LABS: ALB/GLOB RATIO 1.3 (1.0-2.1); ALBUMIN 3.1 g/dL (3.5-5.0); CALCIUM 9.2 mg/dl (8.6-10.4)
--- NOTE | 2018-05-09 12:12 | PCM.IRP ---
History of Present Illness - History of Present Illness History of Present Illness: IR asked to evaluate Pt for angiogram and embolization for GI bleed. Pt will require a CT angiogram to document location of active bleeding prior to embolization. Embolizatin also carries risk of bowel infarction. This should be considered with other options have failed, i.e transfusion, endoscopy. Will continue to follow. Objective - Vital Signs/Intake and Output Vital Signs (last 24 hours): Vital Signs - 24 hr 05/08/18 05/08/18 05/08/18 12:52 13:00 13:52 Temperature Pulse Rate 115 H 105 H 117 H Respiratory 31 H 19 10 L Rate Blood Pressure 132/44 L 144/54 L O2 Sat by Pulse 89 L Oximetry 05/08/18 05/08/18 05/08/18 14:00 14:52 15:00 Temperature 98.1 F Pulse Rate 115 H 117 H 109 H Respiratory 29 H 14 25 H Rate Blood Pressure 135/45 L O2 Sat by Pulse Oximetry 05/08/18 05/08/18 05/08/18 15:52 16:00 16:52 Temperature Pulse Rate 113 H 118 H 115 H Respiratory 29 H 15 28 H Rate Blood Pressure 139/47 L 136/48 L O2 Sat by Pulse Oximetry 05/08/18 05/08/18 05/08/18 17:00 17:52 18:00 Temperature Pulse Rate 117 H 119 H 116 H Respiratory 23 38 H 27 H Rate Blood Pressure 143/61 O2 Sat by Pulse Oximetry 05/08/18 05/08/18 05/08/18 18:30 18:52 19:00 Temperature Pulse Rate 120 H 122 H 120 H Respiratory 45 H 40 H Rate Blood Pressure 131/55 L O2 Sat by Pulse Oximetry 05/08/18 05/08/18 05/08/18 19:47 20:00 20:19 Temperature 98.8 F Pulse Rate 121 H 124 H Respiratory 30 H 25 H Rate Blood Pressure 136/54 L O2 Sat by Pulse 100 100 Oximetry 05/08/18 05/08/18 05/08/18 21:00 23:00 23:49 Temperature Pulse Rate 121 H 101 H 106 H Respiratory 37 H 21 15 Rate Blood Pressure 119/47 L O2 Sat by Pulse 100 100 100 Oximetry 05/09/18 05/09/18 05/09/18 00:00 01:00 02:00 Temperature 98.7 F Pulse Rate 105 H 109 H 110 H Respiratory 23 19 Rate Blood Pressure 119/47 L O2 Sat by Pulse 100 100 Oximetry 05/09/18 05/09/18 05/09/18 03:00 03:48 04:00 Temperature 98.2 F Pulse Rate 111 H 112 H 112 H Respiratory 56 H 55 H 50 H Rate Blood Pressure 123/45 L 123/45 L O2 Sat by Pulse 100 100 100 Oximetry 05/09/18 05/09/18 05/09/18 06:05 06:15 07:00 Temperature Pulse Rate 101 H 102 H 97 H Respiratory 13 20 20 Rate Blood Pressure 83/56 L 73/50 L 87/22 L O2 Sat by Pulse 74 L 93 L 95 Oximetry 05/09/18 05/09/18 05/09/18 07:02 07:17 07:25 Temperature 96.6 F L 96.1 F L Pulse Rate 97 H 95 H 98 H Respiratory 25 H 28 H 28 H Rate Blood Pressure 87/22 L 89/31 L 67/33 L O2 Sat by Pulse 75 L 95 Oximetry 05/09/18 05/09/18 05/09/18 07:28 07:32 07:34 Temperature 95.8 F L Pulse Rate 96 H 95 H 95 H Respiratory 19 30 H 30 H Rate Blood Pressure 67/33 L 89/31 L 89/31 L O2 Sat by Pulse 95 Oximetry 05/09/18 05/09/18 05/09/18 07:44 07:47 07:49 Temperature 96.1 F L Pulse Rate 94 H 96 H 94 H Respiratory 30 H 24 30 H Rate Blood Pressure 120/33 L 130/40 L 130/40 L O2 Sat by Pulse 99 94 L Oximetry 05/09/18 05/09/18 05/09/18 08:00 08:07 08:15 Temperature 96.2 F L 96 F L Pulse Rate 95 H 97 H 99 H Respiratory 30 H 25 H 29 H Rate Blood Pressure 143/41 L 143/41 L 143/41 L O2 Sat by Pulse 96 100 100 Oximetry 05/09/18 05/09/18 05/09/18 08:30 08:31 08:32 Temperature 95.8 F L 95.9 F L Pulse Rate 101 H 101 H 100 H Respiratory 29 H 27 H 29 H Rate Blood Pressure 149/32 L 98/43 L 149/32 L O2 Sat by Pulse 100 100 Oximetry 05/09/18 05/09/18 05/09/18 08:45 08:46 08:47 Temperature 96.1 F L Pulse Rate 100 H 99 H 101 H Respiratory 25 H 27 H 26 H Rate Blood Pressure 99/29 L 98/43 L O2 Sat by Pulse 100 100 Oximetry 05/09/18 05/09/18 05/09/18 09:00 09:01 09:15 Temperature Pulse Rate 102 H 102 H 104 H Respiratory 26 H 26 H 19 Rate Blood Pressure 105/37 L O2 Sat by Pulse 100 100 100 Oximetry 05/09/18 05/09/18 05/09/18 09:16 09:37 10:05 Temperature 96.2 F L 96.6 F L 96.6 F L Pulse Rate 104 H 106 H 107 H Respiratory 24 29 H 22 Rate Blood Pressure 99/29 L 105/49 L 122/67 O2 Sat by Pulse 100 Oximetry 05/09/18 05/09/18 05/09/18 10:52 11:02 11:15 Temperature 97.1 F L 97.4 F L 96.1 F L Pulse Rate 107 H 117 H 119 H Respiratory 22 20 20 Rate Blood Pressure 125/50 L 135/63 128/68 O2 Sat by Pulse 100 100 100 Oximetry Intake and Output (last 12 hours): Intake & Output 05/08/18 05/09/18 05/09/18 18:59 06:59 18:59 Intake Total 995 1990 670 Output Total 1100 900 Balance -105 1090 670 Weight 102 lb 9.6 oz Intake: IV 20 Intake, IV Amount 675 1550 Cardizem Drip 40 Left Wrist 625 1550 left wrist piggyback 10 Tube Feeding 320 440 Blood Product 650 Red Blood Cells Cpd As1 325 Lr Unit [id number] Red Blood Cells Cpd As1 325 Lr Unit [id number] Output: Urine 1100 900 Urine, Voided 1100 900 Other: # Bowel Movements 1 - Medications Medications: Current Medications Albuterol/Ipratropium (Duoneb 3 Mg/0.5 Mg (3 Ml) Ud) 3 ml INH RQ6 PRN PRN Reason: Cough Aspirin (Aspirin Chewable) 81 mg PO DAILY JUDY Dextrose (Dextrose 50% Inj) 0 ml IV STAT PRN; Protocol PRN Reason: Hypoglycemia Protocol Dextrose (Glutose 15) 0 gm PO ONCE PRN; Protocol PRN Reason: Hypoglycemia Protocol Enoxaparin Sodium (Lovenox) 40 mg SC DAILY JUDY Glucagon (Glucagen Diagnostic Kit) 0 mg IM STAT PRN; Protocol PRN Reason: Hypoglycemia Protocol Dextrose (Dextrose 5% In Water 1000 Ml) 1,000 mls @ 0 mls/hr IV .Q0M PRN; Protocol PRN Reason: Hypoglycemia Protocol Sodium Chloride (Sodium Chloride 0.9%) 1,000 mls @ 125 mls/hr IV .Q8H JUDY Last Admin: 05/09/18 06:45 Dose: Not Given Aztreonam 1 gm/ Sodium (Chloride) 100 mls @ 100 mls/hr IVPB Q8H JUDY; Protocol Stop: 05/10/18 22:01 Last Admin: 05/09/18 05:45 Dose: 100 mls/hr Norepinephrine Bitartrate 4 mg (/ Sodium Chloride) 250 mls @ 37.5 mls/hr IV .Q6H40M PRN; Protocol PRN Reason: TITRATE PER MD ORDER Last Titration: 05/09/18 07:30 Dose: 8 mcg/min, 30 mls/hr Insulin Human Regular 100 unit (/ Sodium Chloride) 100 mls @ 2 mls/hr IV .Q24H PRN; Protocol PRN Reason: FOLLOW PROTOCOL Last Titration: 05/09/18 09:05 Dose: 7 units/hr, 7 mls/hr Pantoprazole Sodium 80 mg/ (Sodium Chloride) 100 mls @ 10 mls/hr IVPB .Q10H JUDY Last Admin: 05/09/18 08:45 Dose: 10 mls/hr Sodium Bicarbonate 150 meq/ (Dextrose) 1,150 mls @ 75 mls/hr IV .[id number] JUDY Insulin Aspart (Novolog) 0 unit SC Q6 JUDY; Protocol Last Admin: 05/09/18 06:25 Dose: 10 u Mupirocin (Bactroban Ointment) 0 gm TOP BID JUDY Last Admin: 05/08/18 18:51 Dose: 1 applic Rosuvastatin Calcium (Crestor) 10 mg PO HS JUDY Last Admin: 05/08/18 22:06 Dose: 10 mg - Labs Labs (last 24 hours): Laboratory Results - last 24 hr 05/08/18 05/08/18 05/08/18 10:06 17:47 23:25 WBC RBC Hgb Hct MCV MCH MCHC RDW Plt Count MPV Neut % (Auto) Lymph % (Auto) [place] % (Auto) Eos % (Auto) Baso % (Auto) Neut # (Auto) Lymph # (Auto) [place] # (Auto) Eos # (Auto) Baso # (Auto) PT INR APTT Puncture Site pCO2 pO2 HCO3 ABG pH ABG Total CO2 ABG O2 Saturation ABG Base Excess Scout Test ABG Potassium A-a O2 Difference Respiratory Index Sodium Chloride Glucose Lactate Vent Mode Mechanical Rate FiO2 Tidal Volume PEEP Crit Value Called To Crit Value Called By Crit Value Read Back Blood Gas Notified Time Potassium Carbon Dioxide Anion Gap BUN Creatinine Est GFR ( Amer) Est GFR (Non-Af Amer) POC Glucose (mg/dL) 343 H 322 H Random Glucose Lactic Acid Calcium Phosphorus Magnesium Total Bilirubin AST ALT Alkaline Phosphatase Total Protein Albumin Globulin Albumin/Globulin Ratio Arterial Blood Potassium Blood Type A POSITIVE Antibody Screen Negative 05/09/18 05/09/18 05/09/18 06:13 06:15 06:20 WBC RBC Hgb Hct MCV MCH MCHC RDW Plt Count MPV Neut % (Auto) Lymph % (Auto) [place] % (Auto) Eos % (Auto) Baso % (Auto) Neut # (Auto) Lymph # (Auto) [place] # (Auto) Eos # (Auto) Baso # (Auto) PT INR APTT Puncture Site Rt fem pCO2 17 L* pO2 411 H HCO3 8.0 L* ABG pH 7.12 L* ABG Total CO2 6.0 L ABG O2 Saturation 99.9 H ABG Base Excess -21.8 L Scout Test Na ABG Potassium 7.5 H* A-a O2 Difference 281.0 Respiratory Index 0.7 Sodium 155.0 H Chloride 125.0 H Glucose 544 H* D Lactate > 20.0 H* Vent Mode Prvc Mechanical Rate 20 FiO2 100.0 Tidal Volume 450 PEEP 5 Crit Value Called To Dr mg Crit Value Called By Martin [email or web address] Crit Value Read Back Y Blood Gas Notified Time 645 Potassium Carbon Dioxide Anion Gap BUN Creatinine Est GFR ( Amer) Est GFR (Non-Af Amer) POC Glucose (mg/dL) > 500 H* > 500 H* Random Glucose Lactic Acid Calcium Phosphorus Magnesium Total Bilirubin AST ALT Alkaline Phosphatase Total Protein Albumin Globulin Albumin/Globulin Ratio Arterial Blood Potassium 7.5 H* Blood Type Antibody Screen 05/09/18 05/09/18 05/09/18 06:38 06:38 06:38 WBC 19.8 H RBC 1.37 L Hgb 4.4 L* D Hct 15.5 L MCV 112.6 H D MCH 31.8 H MCHC 28.2 L RDW 17.2 H Plt Count 315 MPV 8.4 Neut % (Auto) 75.0 Lymph % (Auto) 20.1 [place] % (Auto) 4.4 Eos % (Auto) 0.1 Baso % (Auto) 0.4 Neut # (Auto) 14.9 H Lymph # (Auto) 4.0 [place] # (Auto) 0.9 H Eos # (Auto) 0.0 Baso # (Auto) 0.1 PT INR APTT Puncture Site pCO2 pO2 HCO3 ABG pH ABG Total CO2 ABG O2 Saturation ABG Base Excess Scout Test ABG Potassium A-a O2 Difference Respiratory Index Sodium 161 H* Chloride 124 H Glucose Lactate Vent Mode Mechanical Rate FiO2 Tidal Volume PEEP Crit Value Called To Crit Value Called By Crit Value Read Back Blood Gas Notified Time Potassium 7.2 H* D Carbon Dioxide 8 L* D Anion Gap 36 H BUN 46 H Creatinine 1.1 Est GFR ( Amer) 57 Est GFR (Non-Af Amer) 47 POC Glucose (mg/dL) Random Glucose 545 H* D Lactic Acid 20.4 H* Calcium 9.1 Phosphorus 6.7 H Magnesium 2.9 H Total Bilirubin 0.4 AST 139 H D ALT 65 H D Alkaline Phosphatase 61 Total Protein 4.5 L Albumin 2.5 L Globulin 2.0 L Albumin/Globulin Ratio 1.2 Arterial Blood Potassium Blood Type Antibody Screen 05/09/18 05/09/18 05/09/18 08:22 09:10 09:19 WBC RBC Hgb Hct MCV MCH MCHC RDW Plt Count MPV Neut % (Auto) Lymph % (Auto) [place] % (Auto) Eos % (Auto) Baso % (Auto) Neut # (Auto) Lymph # (Auto) [place] # (Auto) Eos # (Auto) Baso # (Auto) PT 18.4 H INR 1.7 APTT 22 Puncture Site pCO2 pO2 HCO3 ABG pH ABG Total CO2 ABG O2 Saturation ABG Base Excess Scout Test ABG Potassium A-a O2 Difference Respiratory Index Sodium Chloride Glucose Lactate Vent Mode Mechanical Rate FiO2 Tidal Volume PEEP Crit Value Called To Crit Value Called By Crit Value Read Back Blood Gas Notified Time Potassium Carbon Dioxide Anion Gap BUN Creatinine Est GFR ( Amer) Est GFR (Non-Af Amer) POC Glucose (mg/dL) 471 H* 433 H* Random Glucose Lactic Acid Calcium Phosphorus Magnesium Total Bilirubin AST ALT Alkaline Phosphatase Total Protein Albumin Globulin Albumin/Globulin Ratio Arterial Blood Potassium Blood Type Antibody Screen 05/09/18 05/09/18 05/09/18 09:59 10:07 10:11 WBC 29.1 H RBC 3.66 L Hgb 10.8 L D Hct 33.8 L MCV 92.2 D MCH 29.5 MCHC 32.0 L RDW 19.4 H Plt Count 215 D MPV 8.1 Neut % (Auto) Lymph % (Auto) [place] % (Auto) Eos % (Auto) Baso % (Auto) Neut # (Auto) Lymph # (Auto) [place] # (Auto) Eos # (Auto) Baso # (Auto) PT INR APTT Puncture Site pCO2 pO2 HCO3 ABG pH ABG Total CO2 ABG O2 Saturation ABG Base Excess Scout Test ABG Potassium A-a O2 Difference Respiratory Index Sodium Chloride Glucose Lactate Vent Mode Mechanical Rate FiO2 Tidal Volume PEEP Crit Value Called To Crit Value Called By Crit Value Read Back Blood Gas Notified Time Potassium Carbon Dioxide Anion Gap BUN Creatinine Est GFR ( Amer) Est GFR (Non-Af Amer) POC Glucose (mg/dL) 438 H* 410 H* Random Glucose Lactic Acid Calcium Phosphorus Magnesium Total Bilirubin AST ALT Alkaline Phosphatase Total Protein Albumin Globulin Albumin/Globulin Ratio Arterial Blood Potassium Blood Type Antibody Screen 05/09/18 11:42 WBC RBC Hgb Hct MCV MCH MCHC RDW Plt Count MPV Neut % (Auto) Lymph % (Auto) [place] % (Auto) Eos % (Auto) Baso % (Auto) Neut # (Auto) Lymph # (Auto) [place] # (Auto) Eos # (Auto) Baso # (Auto) PT INR APTT Puncture Site pCO2 pO2 HCO3 ABG pH ABG Total CO2 ABG O2 Saturation ABG Base Excess Scout Test ABG Potassium A-a O2 Difference Respiratory Index Sodium 161 H* Chloride 123 H Glucose Lactate Vent Mode Mechanical Rate FiO2 Tidal Volume PEEP Crit Value Called To Crit Value Called By Crit Value Read Back Blood Gas Notified Time Potassium 5.4 H Carbon Dioxide 16 L Anion Gap 27 H BUN 57 H Creatinine 1.1 Est GFR ( Amer) 57 Est GFR (Non-Af Amer) 47 POC Glucose (mg/dL) Random Glucose 413 H* D Lactic Acid Calcium 9.2 Phosphorus 5.5 H Magnesium 2.5 H Total Bilirubin 0.7 AST ALT Alkaline Phosphatase 79 Total Protein 5.5 L Albumin 3.1 L D Globulin 2.5 Albumin/Globulin Ratio 1.3 Arterial Blood Potassium Blood Type Antibody Screen
--- NOTE | 2018-05-09 12:42 | CP.CCUPN ---
<EriDylon - Last Filed: 05/09/18 15:38> CCU Subjective - Physician Review Subjective (Free Text): 05/09/18 12:40 Pt seen and examined at bedside. Pt unable to provide ROS, pt is unresponsive. Pt had 2 large dark sticky stools per nursing. Pt was intubated and transfused: 4 PRBCs, 2 FFPs, 2 Platelets today CCU Objective - Vital Signs / Intake & Output Vital Signs (Last 4 hours): Vital Signs Temp Pulse Resp BP Pulse Ox 05/09/18 11:45 121 H 19 133/94 H 100 05/09/18 11:15 96.1 F L 119 H 20 128/68 100 05/09/18 11:02 97.4 F L 117 H 20 135/63 100 05/09/18 10:52 97.1 F L 107 H 22 125/50 L 100 05/09/18 10:05 96.6 F L 107 H 22 122/67 05/09/18 09:37 96.6 F L 106 H 29 H 105/49 L 05/09/18 09:16 96.2 F L 104 H 24 99/29 L 100 05/09/18 09:15 104 H 19 100 05/09/18 09:01 102 H 26 H 105/37 L 100 05/09/18 09:00 102 H 26 H 100 05/09/18 08:47 101 H 26 H 98/43 L 100 05/09/18 08:46 96.1 F L 99 H 27 H 99/29 L 05/09/18 08:45 100 H 25 H 100 Intake and Output (Last 8hrs): Intake & Output 05/08/18 05/09/18 05/09/18 22:59 06:59 14:59 Intake Total 500 1865 685 Output Total 1100 900 Balance -600 965 685 Weight 102 lb 9.6 oz Intake: IV 35 Intake, IV Amount 260 1425 Cardizem Drip 10 Left Wrist 250 1425 Tube Feeding 240 440 Blood Product 650 Red Blood Cells Cpd As1 325 Lr Unit [id number] Red Blood Cells Cpd As1 325 Lr Unit [id number] Output: Urine 1100 900 Urine, Voided 1100 900 Other: # Bowel Movements 1 - Medications Active Medications: Active Medications Generic Name Dose Route Start Last Admin Trade Name Freq PRN Reason Stop Dose Admin Albuterol/Ipratropium 3 ml 05/07/18 21:18 Duoneb 3 Mg/0.5 Mg (3 Ml) Ud INH RQ6 PRN Cough Dextrose 0 ml 05/07/18 11:11 Dextrose 50% Inj IV STAT PRN Hypoglycemia Protocol Protocol Dextrose 0 gm 05/07/18 11:11 Glutose 15 PO ONCE PRN Hypoglycemia Protocol Protocol Glucagon 0 mg 05/07/18 11:11 Glucagen Diagnostic Kit IM STAT PRN Hypoglycemia Protocol Protocol Dextrose 1,000 mls @ 0 mls/hr 05/07/18 11:11 Dextrose 5% In Water 1000 Ml IV .Q0M PRN Hypoglycemia Protocol Protocol Per Protocol Aztreonam 1 gm/ Sodium 100 mls @ 100 mls/hr 05/07/18 22:00 05/09/18 05:45 Chloride IVPB 05/10/18 22:01 100 mls/hr Q8H JUDY Administration Protocol Norepinephrine Bitartrate 4 mg 250 mls @ 37.5 mls/hr 05/09/18 06:44 05/09/18 07:30 / Sodium Chloride IV 8 mcg/min .Q6H40M PRN 30 mls/hr TITRATE PER MD ORDER Titration Protocol 10 MCG/MIN Insulin Human Regular 100 unit 100 mls @ 2 mls/hr 05/09/18 07:30 05/09/18 12:14 / Sodium Chloride IV 6 units/hr .Q24H PRN 6 mls/hr FOLLOW PROTOCOL Titration Protocol Pantoprazole Sodium 80 mg/ 100 mls @ 10 mls/hr 05/09/18 08:30 05/09/18 08:45 Sodium Chloride IVPB 10 mls/hr .Q10H JUDY Administration 8 MG/HR Mupirocin 0 gm 05/08/18 10:00 05/08/18 18:51 Bactroban Ointment TOP 1 applic BID JUDY Administration Rosuvastatin Calcium 10 mg 05/07/18 22:00 05/08/18 22:06 Crestor PO 10 mg HS JUDY Administration - Patient Studies Lab Studies: Microbiology Studies 05/07/18 09:01 Blood Culture - Preliminary Blood NO GROWTH AFTER 48 HOURS 05/07/18 11:46 Gram Stain - Final Peg Site Wound Culture - Final Klebsiella Pneumoniae Ssp Pneu 05/07/18 17:55 Blood Culture - Preliminary Blood NO GROWTH AFTER 24 HOURS 05/07/18 11:46 MRSA Culture (Admit) - Final Naris MRSA NOT DETECTED Lab Studies 05/09/18 05/09/18 05/09/18 Range/Units 12:13 11:42 11:05 WBC (4.8-10.8) K/uL RBC (3.80-5.20) Mil/uL Hgb (11.0-16.0) g/dL Hct (34.0-47.0) % MCV (81.0-99.0) fL MCH (27.0-31.0) pg MCHC (33.0-37.0) g/dL RDW (11.5-14.5) % Plt Count (130-400) K/uL MPV (7.2-11.7) fL Neut % (Auto) (50.0-75.0) % Lymph % (Auto) (20.0-40.0) % [place] % (Auto) (0.0-10.0) % Eos % (Auto) (0.0-4.0) % Baso % (Auto) (0.0-2.0) % Neut # (Auto) (1.8-7.0) K/uL Lymph # (Auto) (1.0-4.3) K/uL [place] # (Auto) (0.0-0.8) K/uL Eos # (Auto) (0.0-0.7) K/uL Baso # (Auto) (0.0-0.2) K/uL PT (9.7-12.2) SECONDS INR APTT (21-34) SECONDS Puncture Site pCO2 (35-45) mm/Hg pO2 (80-100) mm/Hg HCO3 (21-28) mmol/L ABG pH (7.35-7.45) ABG Total CO2 (22-28) mmol/L ABG O2 Saturation (95-98) % ABG Base Excess (-2.0-3.0) mmol/L Scout Test ABG Potassium (3.6-5.2) mmol/L A-a O2 Difference mm/Hg Respiratory Index Sodium 161 H* (132-148) mmol/l Chloride 123 H (98-107) mmol/L Glucose (65-105) mg/dl Lactate (0.7-2.1) mmol/L Vent Mode Mechanical Rate FiO2 % Tidal Volume PEEP Crit Value Called To Crit Value Called By Crit Value Read Back Blood Gas Notified Time Potassium 5.4 H (3.6-5.2) mmol/L Carbon Dioxide 16 L (22-30) mmol/L Anion Gap 27 H (10-20) BUN 57 H (7-17) mg/dL Creatinine 1.1 (0.7-1.2) mg/dL Est GFR ( Amer) 57 Est GFR (Non-Af Amer) 47 POC Glucose (mg/dL) 396 H 418 H* (65-110) mg/dL Random Glucose 413 H* D (65-105) mg/dL Lactic Acid (0.7-2.1) mmol/L Calcium 9.2 (8.6-10.4) mg/dl Phosphorus 5.5 H (2.5-4.5) mg/dL Magnesium 2.5 H (1.6-2.3) mg/dL Total Bilirubin 0.7 (0.2-1.3) mg/dL AST 1721 H (14-36) U/L ALT 1077 H (9-52) U/L Alkaline Phosphatase 79 (38-126) U/L Total Protein 5.5 L (6.3-8.3) g/dL Albumin 3.1 L D (3.5-5.0) g/dL Globulin 2.5 (2.2-3.9) gm/dL Albumin/Globulin Ratio 1.3 (1.0-2.1) Arterial Blood Potassium (3.6-5.2) mmol/L Blood Type Antibody Screen 05/09/18 05/09/18 05/09/18 Range/Units 10:11 10:07 09:59 WBC 29.1 H (4.8-10.8) K/uL RBC 3.66 L (3.80-5.20) Mil/uL Hgb 10.8 L D (11.0-16.0) g/dL Hct 33.8 L (34.0-47.0) % MCV 92.2 D (81.0-99.0) fL MCH 29.5 (27.0-31.0) pg MCHC 32.0 L (33.0-37.0) g/dL RDW 19.4 H (11.5-14.5) % Plt Count 215 D (130-400) K/uL MPV 8.1 (7.2-11.7) fL Neut % (Auto) (50.0-75.0) % Lymph % (Auto) (20.0-40.0) % [place] % (Auto) (0.0-10.0) % Eos % (Auto) (0.0-4.0) % Baso % (Auto) (0.0-2.0) % Neut # (Auto) (1.8-7.0) K/uL Lymph # (Auto) (1.0-4.3) K/uL [place] # (Auto) (0.0-0.8) K/uL Eos # (Auto) (0.0-0.7) K/uL Baso # (Auto) (0.0-0.2) K/uL PT (9.7-12.2) SECONDS INR APTT (21-34) SECONDS Puncture Site pCO2 (35-45) mm/Hg pO2 (80-100) mm/Hg HCO3 (21-28) mmol/L ABG pH (7.35-7.45) ABG Total CO2 (22-28) mmol/L ABG O2 Saturation (95-98) % ABG Base Excess (-2.0-3.0) mmol/L Scout Test ABG Potassium (3.6-5.2) mmol/L A-a O2 Difference mm/Hg Respiratory Index Sodium (132-148) mmol/l Chloride (98-107) mmol/L Glucose (65-105) mg/dl Lactate (0.7-2.1) mmol/L Vent Mode Mechanical Rate FiO2 % Tidal Volume PEEP Crit Value Called To Crit Value Called By Crit Value Read Back Blood Gas Notified Time Potassium (3.6-5.2) mmol/L Carbon Dioxide (22-30) mmol/L Anion Gap (10-20) BUN (7-17) mg/dL Creatinine (0.7-1.2) mg/dL Est GFR ( Amer) Est GFR (Non-Af Amer) POC Glucose (mg/dL) 410 H* 438 H* (65-110) mg/dL Random Glucose (65-105) mg/dL Lactic Acid (0.7-2.1) mmol/L Calcium (8.6-10.4) mg/dl Phosphorus (2.5-4.5) mg/dL Magnesium (1.6-2.3) mg/dL Total Bilirubin (0.2-1.3) mg/dL AST (14-36) U/L ALT (9-52) U/L Alkaline Phosphatase (38-126) U/L Total Protein (6.3-8.3) g/dL Albumin (3.5-5.0) g/dL Globulin (2.2-3.9) gm/dL Albumin/Globulin Ratio (1.0-2.1) Arterial Blood Potassium (3.6-5.2) mmol/L Blood Type Antibody Screen 05/09/18 05/09/18 05/09/18 Range/Units 09:19 09:10 08:22 WBC (4.8-10.8) K/uL RBC (3.80-5.20) Mil/uL Hgb (11.0-16.0) g/dL Hct (34.0-47.0) % MCV (81.0-99.0) fL MCH (27.0-31.0) pg MCHC (33.0-37.0) g/dL RDW (11.5-14.5) % Plt Count (130-400) K/uL MPV (7.2-11.7) fL Neut % (Auto) (50.0-75.0) % Lymph % (Auto) (20.0-40.0) % [place] % (Auto) (0.0-10.0) % Eos % (Auto) (0.0-4.0) % Baso % (Auto) (0.0-2.0) % Neut # (Auto) (1.8-7.0) K/uL Lymph # (Auto) (1.0-4.3) K/uL [place] # (Auto) (0.0-0.8) K/uL Eos # (Auto) (0.0-0.7) K/uL Baso # (Auto) (0.0-0.2) K/uL PT 18.4 H (9.7-12.2) SECONDS INR 1.7 APTT 22 (21-34) SECONDS Puncture Site pCO2 (35-45) mm/Hg pO2 (80-100) mm/Hg HCO3 (21-28) mmol/L ABG pH (7.35-7.45) ABG Total CO2 (22-28) mmol/L ABG O2 Saturation (95-98) % ABG Base Excess (-2.0-3.0) mmol/L Scout Test ABG Potassium (3.6-5.2) mmol/L A-a O2 Difference mm/Hg Respiratory Index Sodium (132-148) mmol/l Chloride (98-107) mmol/L Glucose (65-105) mg/dl Lactate (0.7-2.1) mmol/L Vent Mode Mechanical Rate FiO2 % Tidal Volume PEEP Crit Value Called To Crit Value Called By Crit Value Read Back Blood Gas Notified Time Potassium (3.6-5.2) mmol/L Carbon Dioxide (22-30) mmol/L Anion Gap (10-20) BUN (7-17) mg/dL Creatinine (0.7-1.2) mg/dL Est GFR ( Amer) Est GFR (Non-Af Amer) POC Glucose (mg/dL) 433 H* 471 H* (65-110) mg/dL Random Glucose (65-105) mg/dL Lactic Acid (0.7-2.1) mmol/L Calcium (8.6-10.4) mg/dl Phosphorus (2.5-4.5) mg/dL Magnesium (1.6-2.3) mg/dL Total Bilirubin (0.2-1.3) mg/dL AST (14-36) U/L ALT (9-52) U/L Alkaline Phosphatase (38-126) U/L Total Protein (6.3-8.3) g/dL Albumin (3.5-5.0) g/dL Globulin (2.2-3.9) gm/dL Albumin/Globulin Ratio (1.0-2.1) Arterial Blood Potassium (3.6-5.2) mmol/L Blood Type Antibody Screen 05/09/18 05/09/18 05/09/18 Range/Units 06:38 06:38 06:38 WBC 19.8 H (4.8-10.8) K/uL RBC 1.37 L (3.80-5.20) Mil/uL Hgb 4.4 L* D (11.0-16.0) g/dL Hct 15.5 L (34.0-47.0) % MCV 112.6 H D (81.0-99.0) fL MCH 31.8 H (27.0-31.0) pg MCHC 28.2 L (33.0-37.0) g/dL RDW 17.2 H (11.5-14.5) % Plt Count 315 (130-400) K/uL MPV 8.4 (7.2-11.7) fL Neut % (Auto) 75.0 (50.0-75.0) % Lymph % (Auto) 20.1 (20.0-40.0) % [place] % (Auto) 4.4 (0.0-10.0) % Eos % (Auto) 0.1 (0.0-4.0) % Baso % (Auto) 0.4 (0.0-2.0) % Neut # (Auto) 14.9 H (1.8-7.0) K/uL Lymph # (Auto) 4.0 (1.0-4.3) K/uL [place] # (Auto) 0.9 H (0.0-0.8) K/uL Eos # (Auto) 0.0 (0.0-0.7) K/uL Baso # (Auto) 0.1 (0.0-0.2) K/uL PT (9.7-12.2) SECONDS INR APTT (21-34) SECONDS Puncture Site pCO2 (35-45) mm/Hg pO2 (80-100) mm/Hg HCO3 (21-28) mmol/L ABG pH (7.35-7.45) ABG Total CO2 (22-28) mmol/L ABG O2 Saturation (95-98) % ABG Base Excess (-2.0-3.0) mmol/L Scout Test ABG Potassium (3.6-5.2) mmol/L A-a O2 Difference mm/Hg Respiratory Index Sodium 161 H* (132-148) mmol/l Chloride 124 H (98-107) mmol/L Glucose (65-105) mg/dl Lactate (0.7-2.1) mmol/L Vent Mode Mechanical Rate FiO2 % Tidal Volume PEEP Crit Value Called To Crit Value Called By Crit Value Read Back Blood Gas Notified Time Potassium 7.2 H* D (3.6-5.2) mmol/L Carbon Dioxide 8 L* D (22-30) mmol/L Anion Gap 36 H (10-20) BUN 46 H (7-17) mg/dL Creatinine 1.1 (0.7-1.2) mg/dL Est GFR ( Amer) 57 Est GFR (Non-Af Amer) 47 POC Glucose (mg/dL) (65-110) mg/dL Random Glucose 545 H* D (65-105) mg/dL Lactic Acid 20.4 H* (0.7-2.1) mmol/L Calcium 9.1 (8.6-10.4) mg/dl Phosphorus 6.7 H (2.5-4.5) mg/dL Magnesium 2.9 H (1.6-2.3) mg/dL Total Bilirubin 0.4 (0.2-1.3) mg/dL AST 139 H D (14-36) U/L ALT 65 H D (9-52) U/L Alkaline Phosphatase 61 (38-126) U/L Total Protein 4.5 L (6.3-8.3) g/dL Albumin 2.5 L (3.5-5.0) g/dL Globulin 2.0 L (2.2-3.9) gm/dL Albumin/Globulin Ratio 1.2 (1.0-2.1) Arterial Blood Potassium (3.6-5.2) mmol/L Blood Type Antibody Screen 05/09/18 05/09/18 05/09/18 Range/Units 06:20 06:15 06:13 WBC (4.8-10.8) K/uL RBC (3.80-5.20) Mil/uL Hgb (11.0-16.0) g/dL Hct (34.0-47.0) % MCV (81.0-99.0) fL MCH (27.0-31.0) pg MCHC (33.0-37.0) g/dL RDW (11.5-14.5) % Plt Count (130-400) K/uL MPV (7.2-11.7) fL Neut % (Auto) (50.0-75.0) % Lymph % (Auto) (20.0-40.0) % [place] % (Auto) (0.0-10.0) % Eos % (Auto) (0.0-4.0) % Baso % (Auto) (0.0-2.0) % Neut # (Auto) (1.8-7.0) K/uL Lymph # (Auto) (1.0-4.3) K/uL [place] # (Auto) (0.0-0.8) K/uL Eos # (Auto) (0.0-0.7) K/uL Baso # (Auto) (0.0-0.2) K/uL PT (9.7-12.2) SECONDS INR APTT (21-34) SECONDS Puncture Site Rt fem pCO2 17 L* (35-45) mm/Hg pO2 411 H (80-100) mm/Hg HCO3 8.0 L* (21-28) mmol/L ABG pH 7.12 L* (7.35-7.45) ABG Total CO2 6.0 L (22-28) mmol/L ABG O2 Saturation 99.9 H (95-98) % ABG Base Excess -21.8 L (-2.0-3.0) mmol/L Scout Test Na ABG Potassium 7.5 H* (3.6-5.2) mmol/L A-a O2 Difference 281.0 mm/Hg Respiratory Index 0.7 Sodium 155.0 H (132-148) mmol/l Chloride 125.0 H (98-107) mmol/L Glucose 544 H* D (65-105) mg/dl Lactate > 20.0 H* (0.7-2.1) mmol/L Vent Mode Prvc Mechanical Rate 20 FiO2 100.0 % Tidal Volume 450 PEEP 5 Crit Value Called To Dr mg Crit Value Called By Martin rodriguez/rt Crit Value Read Back Y Blood Gas Notified Time 645 Potassium (3.6-5.2) mmol/L Carbon Dioxide (22-30) mmol/L Anion Gap (10-20) BUN (7-17) mg/dL Creatinine (0.7-1.2) mg/dL Est GFR ( Amer) Est GFR (Non-Af Amer) POC Glucose (mg/dL) > 500 H* > 500 H* (65-110) mg/dL Random Glucose (65-105) mg/dL Lactic Acid (0.7-2.1) mmol/L Calcium (8.6-10.4) mg/dl Phosphorus (2.5-4.5) mg/dL Magnesium (1.6-2.3) mg/dL Total Bilirubin (0.2-1.3) mg/dL AST (14-36) U/L ALT (9-52) U/L Alkaline Phosphatase (38-126) U/L Total Protein (6.3-8.3) g/dL Albumin (3.5-5.0) g/dL Globulin (2.2-3.9) gm/dL Albumin/Globulin Ratio (1.0-2.1) Arterial Blood Potassium 7.5 H* (3.6-5.2) mmol/L Blood Type Antibody Screen 05/08/18 05/08/18 05/08/18 Range/Units 23:25 17:47 10:06 WBC (4.8-10.8) K/uL RBC (3.80-5.20) Mil/uL Hgb (11.0-16.0) g/dL Hct (34.0-47.0) % MCV (81.0-99.0) fL MCH (27.0-31.0) pg MCHC (33.0-37.0) g/dL RDW (11.5-14.5) % Plt Count (130-400) K/uL MPV (7.2-11.7) fL Neut % (Auto) (50.0-75.0) % Lymph % (Auto) (20.0-40.0) % [place] % (Auto) (0.0-10.0) % Eos % (Auto) (0.0-4.0) % Baso % (Auto) (0.0-2.0) % Neut # (Auto) (1.8-7.0) K/uL Lymph # (Auto) (1.0-4.3) K/uL [place] # (Auto) (0.0-0.8) K/uL Eos # (Auto) (0.0-0.7) K/uL Baso # (Auto) (0.0-0.2) K/uL PT (9.7-12.2) SECONDS INR APTT (21-34) SECONDS Puncture Site pCO2 (35-45) mm/Hg pO2 (80-100) mm/Hg HCO3 (21-28) mmol/L ABG pH (7.35-7.45) ABG Total CO2 (22-28) mmol/L ABG O2 Saturation (95-98) % ABG Base Excess (-2.0-3.0) mmol/L Scout Test ABG Potassium (3.6-5.2) mmol/L A-a O2 Difference mm/Hg Respiratory Index Sodium (132-148) mmol/l Chloride (98-107) mmol/L Glucose (65-105) mg/dl Lactate (0.7-2.1) mmol/L Vent Mode Mechanical Rate FiO2 % Tidal Volume PEEP Crit Value Called To Crit Value Called By Crit Value Read Back Blood Gas Notified Time Potassium (3.6-5.2) mmol/L Carbon Dioxide (22-30) mmol/L Anion Gap (10-20) BUN (7-17) mg/dL Creatinine (0.7-1.2) mg/dL Est GFR ( Amer) Est GFR (Non-Af Amer) POC Glucose (mg/dL) 322 H 343 H (65-110) mg/dL Random Glucose (65-105) mg/dL Lactic Acid (0.7-2.1) mmol/L Calcium (8.6-10.4) mg/dl Phosphorus (2.5-4.5) mg/dL Magnesium (1.6-2.3) mg/dL Total Bilirubin (0.2-1.3) mg/dL AST (14-36) U/L ALT (9-52) U/L Alkaline Phosphatase (38-126) U/L Total Protein (6.3-8.3) g/dL Albumin (3.5-5.0) g/dL Globulin (2.2-3.9) gm/dL Albumin/Globulin Ratio (1.0-2.1) Arterial Blood Potassium (3.6-5.2) mmol/L Blood Type A POSITIVE Antibody Screen Negative Laboratory Results - last 24 hr 10/05/1605/08/18 05/08/18 10:06 17:47 23:25 WBC RBC Hgb Hct MCV MCH MCHC RDW Plt Count MPV Neut % (Auto) Lymph % (Auto) [place] % (Auto) Eos % (Auto) Baso % (Auto) Neut # (Auto) Lymph # (Auto) [place] # (Auto) Eos # (Auto) Baso # (Auto) PT INR APTT Puncture Site pCO2 pO2 HCO3 ABG pH ABG Total CO2 ABG O2 Saturation ABG Base Excess Scout Test ABG Potassium A-a O2 Difference Respiratory Index Sodium Chloride Glucose Lactate Vent Mode Mechanical Rate FiO2 Tidal Volume PEEP Crit Value Called To Crit Value Called By Crit Value Read Back Blood Gas Notified Time Potassium Carbon Dioxide Anion Gap BUN Creatinine Est GFR ( Amer) Est GFR (Non-Af Amer) POC Glucose (mg/dL) 343 H 322 H Random Glucose Lactic Acid Calcium Phosphorus Magnesium Total Bilirubin AST ALT Alkaline Phosphatase Total Protein Albumin Globulin Albumin/Globulin Ratio Arterial Blood Potassium Blood Type A POSITIVE Antibody Screen Negative 05/09/18 05/09/18 05/09/18 06:13 06:15 06:20 WBC RBC Hgb Hct MCV MCH MCHC RDW Plt Count MPV Neut % (Auto) Lymph % (Auto) [place] % (Auto) Eos % (Auto) Baso % (Auto) Neut # (Auto) Lymph # (Auto) [place] # (Auto) Eos # (Auto) Baso # (Auto) PT INR APTT Puncture Site Rt fem pCO2 17 L* pO2 411 H HCO3 8.0 L* ABG pH 7.12 L* ABG Total CO2 6.0 L ABG O2 Saturation 99.9 H ABG Base Excess -21.8 L Scout Test Na ABG Potassium 7.5 H* A-a O2 Difference 281.0 Respiratory Index 0.7 Sodium 155.0 H Chloride 125.0 H Glucose 544 H* D Lactate > 20.0 H* Vent Mode Prvc Mechanical Rate 20 FiO2 100.0 Tidal Volume 450 PEEP 5 Crit Value Called To Dr mg Crit Value Called By Martin rodriguez/rt Crit Value Read Back Y Blood Gas Notified Time 645 Potassium Carbon Dioxide Anion Gap BUN Creatinine Est GFR ( Amer) Est GFR (Non-Af Amer) POC Glucose (mg/dL) > 500 H* > 500 H* Random Glucose Lactic Acid Calcium Phosphorus Magnesium Total Bilirubin AST ALT Alkaline Phosphatase Total Protein Albumin Globulin Albumin/Globulin Ratio Arterial Blood Potassium 7.5 H* Blood Type Antibody Screen 05/09/18 05/09/18 05/09/18 06:38 06:38 06:38 WBC 19.8 H RBC 1.37 L Hgb 4.4 L* D Hct 15.5 L MCV 112.6 H D MCH 31.8 H MCHC 28.2 L RDW 17.2 H Plt Count 315 MPV 8.4 Neut % (Auto) 75.0 Lymph % (Auto) 20.1 [place] % (Auto) 4.4 Eos % (Auto) 0.1 Baso % (Auto) 0.4 Neut # (Auto) 14.9 H Lymph # (Auto) 4.0 [place] # (Auto) 0.9 H Eos # (Auto) 0.0 Baso # (Auto) 0.1 PT INR APTT Puncture Site pCO2 pO2 HCO3 ABG pH ABG Total CO2 ABG O2 Saturation ABG Base Excess Scout Test ABG Potassium A-a O2 Difference Respiratory Index Sodium 161 H* Chloride 124 H Glucose Lactate Vent Mode Mechanical Rate FiO2 Tidal Volume PEEP Crit Value Called To Crit Value Called By Crit Value Read Back Blood Gas Notified Time Potassium 7.2 H* D Carbon Dioxide 8 L* D Anion Gap 36 H BUN 46 H Creatinine 1.1 Est GFR ( Amer) 57 Est GFR (Non-Af Amer) 47 POC Glucose (mg/dL) Random Glucose 545 H* D Lactic Acid 20.4 H* Calcium 9.1 Phosphorus 6.7 H Magnesium 2.9 H Total Bilirubin 0.4 AST 139 H D ALT 65 H D Alkaline Phosphatase 61 Total Protein 4.5 L Albumin 2.5 L Globulin 2.0 L Albumin/Globulin Ratio 1.2 Arterial Blood Potassium Blood Type Antibody Screen 05/09/18 05/09/18 05/09/18 08:22 09:10 09:19 WBC RBC Hgb Hct MCV MCH MCHC RDW Plt Count MPV Neut % (Auto) Lymph % (Auto) [place] % (Auto) Eos % (Auto) Baso % (Auto) Neut # (Auto) Lymph # (Auto) [place] # (Auto) Eos # (Auto) Baso # (Auto) PT 18.4 H INR 1.7 APTT 22 Puncture Site pCO2 pO2 HCO3 ABG pH ABG Total CO2 ABG O2 Saturation ABG Base Excess Scout Test ABG Potassium A-a O2 Difference Respiratory Index Sodium Chloride Glucose Lactate Vent Mode Mechanical Rate FiO2 Tidal Volume PEEP Crit Value Called To Crit Value Called By Crit Value Read Back Blood Gas Notified Time Potassium Carbon Dioxide Anion Gap BUN Creatinine Est GFR ( Amer) Est GFR (Non-Af Amer) POC Glucose (mg/dL) 471 H* 433 H* Random Glucose Lactic Acid Calcium Phosphorus Magnesium Total Bilirubin AST ALT Alkaline Phosphatase Total Protein Albumin Globulin Albumin/Globulin Ratio Arterial Blood Potassium Blood Type Antibody Screen 05/09/18 05/09/18 05/09/18 09:59 10:07 10:11 WBC 29.1 H RBC 3.66 L Hgb 10.8 L D Hct 33.8 L MCV 92.2 D MCH 29.5 MCHC 32.0 L RDW 19.4 H Plt Count 215 D MPV 8.1 Neut % (Auto) Lymph % (Auto) [place] % (Auto) Eos % (Auto) Baso % (Auto) Neut # (Auto) Lymph # (Auto) [place] # (Auto) Eos # (Auto) Baso # (Auto) PT INR APTT Puncture Site pCO2 pO2 HCO3 ABG pH ABG Total CO2 ABG O2 Saturation ABG Base Excess Scout Test ABG Potassium A-a O2 Difference Respiratory Index Sodium Chloride Glucose Lactate Vent Mode Mechanical Rate FiO2 Tidal Volume PEEP Crit Value Called To Crit Value Called By Crit Value Read Back Blood Gas Notified Time Potassium Carbon Dioxide Anion Gap BUN Creatinine Est GFR ( Amer) Est GFR (Non-Af Amer) POC Glucose (mg/dL) 438 H* 410 H* Random Glucose Lactic Acid Calcium Phosphorus Magnesium Total Bilirubin AST ALT Alkaline Phosphatase Total Protein Albumin Globulin Albumin/Globulin Ratio Arterial Blood Potassium Blood Type Antibody Screen 05/09/18 05/09/18 05/09/18 11:05 11:42 12:13 WBC RBC Hgb Hct MCV MCH MCHC RDW Plt Count MPV Neut % (Auto) Lymph % (Auto) [place] % (Auto) Eos % (Auto) Baso % (Auto) Neut # (Auto) Lymph # (Auto) [place] # (Auto) Eos # (Auto) Baso # (Auto) PT INR APTT Puncture Site pCO2 pO2 HCO3 ABG pH ABG Total CO2 ABG O2 Saturation ABG Base Excess Scout Test ABG Potassium A-a O2 Difference Respiratory Index Sodium 161 H* Chloride 123 H Glucose Lactate Vent Mode Mechanical Rate FiO2 Tidal Volume PEEP Crit Value Called To Crit Value Called By Crit Value Read Back Blood Gas Notified Time Potassium 5.4 H Carbon Dioxide 16 L Anion Gap 27 H BUN 57 H Creatinine 1.1 Est GFR ( Amer) 57 Est GFR (Non-Af Amer) 47 POC Glucose (mg/dL) 418 H* 396 H Random Glucose 413 H* D Lactic Acid Calcium 9.2 Phosphorus 5.5 H Magnesium 2.5 H Total Bilirubin 0.7 AST 1721 H ALT 1077 H Alkaline Phosphatase 79 Total Protein 5.5 L Albumin 3.1 L D Globulin 2.5 Albumin/Globulin Ratio 1.3 Arterial Blood Potassium Blood Type Antibody Screen EKG/Cardiology Studies: Cardiology / EKG Studies 05/09/18 09:06 EKG [ELECTROCARDIOGRAM] Stat Comment: Mode Of Transportation: PORTABLE Reason For Exam: Post code Blue Fingerstick Blood Sugar Results: 410 Critical Care Progress Note - Nutrition Nutrition: Nutrition Category Date Time Status NPO Diet [DIET] Diets 05/07/18 Breakfast Active Assessment/Plan - Assessment and Plan (Free Text) Assessment: Patient is an 87 year old female with past medical history HTN, CHF, CAD, COPD, T2DM, tracheostomy following aspiration pneumonitis, presenting with altered mental status and found to be septic and hyperglycemic. Plan: Neuro: Anoxic brain injury -pupils unreactive -CT head when stable -EEG and Neuro eval when stable - intuabted unresponsive Cardio: - likely Hypovolemic Shock - Pt Hypotensive this AM - Fluid ressucitation to keep CVP between 8-12 - tittrate pressors and keep MAP >65 Risk of CAD/ Type 2 NM -trops elevate .34, follow serial -f/u EKG and Echo -not a candidate for anticoag - achieve Hg >10 Pulm: Hypoxic respiratory failure - maintain ventillation to keep spO2 - intubated vent settings : R 20 TV 400 PEEP 5 fiO2 70 GI: Acute blood loss anemia - melanous stools x 2 - Transfusion of 4 PRBCs, 2 FFPs, 2 Platelets - Monitor with serial CBC f/u 9pm this evening - PTX drip @ 8 w/ bolus of 80mg - Dr Dye recommending CT angio to localize bleed for embolization - Dr Black consulted and aware of case Transaminitis - shock liver likley cause - monitor LFTs - avoid hep toxic drugs Endo: Metabolic Acidosis - Gluc >400 - Elevated lactate - DKA likely - insulin drip - NS at 125 ccs/hr - change to 1/2 ns when gluc <250 - monitor CMP Mag Phos and beta hydroxy every 6 hrs - f.u A1C and TSH Renal: Acute Renal Failure - Cr 1.1 - retaining 350ml on last scan - minial urine output today - monitor to keep at 0.5ml/kg/hr ID: Septic Shock - Febrile, tachycardic, and tachypneic in ED - Given 2 gm aztreonam and Flagy/ 500 q 8 adding Vanco for gram pos - check CDiff is diarrhea - AM Lactate >20, f/u afternoon Lactate DVT PPX SCDs not candidate for anticoag IV PTX prognosis guarded, d/w with daughter <Srinath Dennis - Last Filed: 05/11/18 11:42> CCU Subjective - Physician Review Critical Care Time Spent (in minutes): 45 CCU Objective - Vital Signs / Intake & Output Vital Signs (Last 4 hours): Vital Signs Temp Pulse Resp BP Pulse Ox 05/11/18 11:00 87 25 H 99 05/11/18 10:12 99 H 16 163/63 H 100 05/11/18 10:01 107 H 17 172/85 H 100 05/11/18 10:00 104 H 21 96 05/11/18 09:53 105 H 16 178/81 H 100 05/11/18 09:02 88 16 100 05/11/18 09:00 89 16 100 05/11/18 08:01 102 H 20 173/87 H 99 05/11/18 08:00 98 F 97 H 16 100 Intake and Output (Last 8hrs): Intake & Output 05/10/18 05/11/18 05/11/18 22:59 06:59 14:59 Intake Total 730 790 475 Output Total 550 600 Balance 180 190 475 Weight 101 lb Intake: Intake, IV Amount 730 730 475 Right Distal Port 80 80 50 Internal Jugular Right Proximal Port 650 650 425 Internal Jugular Other 60 Output: Urine 550 600 Urine, Voided 550 600 Emesis 0 Other: # Voids Urine, Voided 0 0 0 # Bowel Movements 1 1 0 - Medications Active Medications: Active Medications Generic Name Dose Route Start Last Admin Trade Name Freq PRN Reason Stop Dose Admin Albuterol/Ipratropium 3 ml 05/07/18 21:18 Duoneb 3 Mg/0.5 Mg (3 Ml) Ud INH RQ6 PRN Cough Dextrose 0 ml 05/07/18 11:11 Dextrose 50% Inj IV STAT PRN Hypoglycemia Protocol Protocol Dextrose 0 gm 05/07/18 11:11 Glutose 15 PO ONCE PRN Hypoglycemia Protocol Protocol Glucagon 0 mg 05/07/18 11:11 Glucagen Diagnostic Kit IM STAT PRN Hypoglycemia Protocol Protocol Dextrose 1,000 mls @ 0 mls/hr 05/07/18 11:11 Dextrose 5% In Water 1000 Ml IV .Q0M PRN Hypoglycemia Protocol Protocol Per Protocol Pantoprazole Sodium 80 mg/ 100 mls @ 10 mls/hr 05/09/18 08:30 05/11/18 10:42 Sodium Chloride IVPB 10 mls/hr .Q10H JUDY Administration 8 MG/HR Metronidazole 500 mg in 100 mls @ 100 mls/hr 05/09/18 14:00 05/11/18 06:24 Flagyl IVPB 100 mls/hr Q8H JUDY Administration Protocol Ciprofloxacin 100 mls @ 67 mls/hr 05/09/18 17:00 05/11/18 04:53 Cipro 200mg/100ml D5w IVPB 67 mls/hr Q12H JUDY Administration Protocol Potassium Chloride 20 meq in 100 mls @ 50 mls/hr 05/11/18 10:18 05/11/18 10:42 Potassium Chloride 20 Meq/100 Ml IVPB 05/11/18 12:17 50 mls/hr ONCE ONE Administration Potassium Chloride 20 meq in 100 mls @ 50 mls/hr 05/11/18 11:20 05/11/18 10:42 Potassium Chloride 20 Meq/100 Ml IVPB 05/11/18 13:19 50 mls/hr ONCE ONE Administration Insulin Aspart 0 unit 05/10/18 08:15 05/11/18 07:56 Novolog SC 2 u Q4 JUDY Administration Protocol Neomycin/Polymyxin/Bacitracin 0 gm 05/10/18 10:00 05/10/18 17:51 Neosporin Triple Antibiotic Oint TOP 1 applic BID JUDY Administration Nystatin 1 applic 05/09/18 18:00 05/11/18 10:36 Nystop Topical Powder TOP 1 applic BID JUDY Administration Rosuvastatin Calcium 10 mg 05/07/18 22:00 05/10/18 22:00 Crestor PO Not Given HS JUDY Verapamil HCl 2.5 mg 05/09/18 17:48 05/11/18 06:26 Verapamil Inj IVP 2.5 mg Q4 PRN Administration Heart rate - Patient Studies Lab Studies: Microbiology Studies 05/07/18 09:01 Blood Culture - Preliminary Blood NO GROWTH AFTER 4 DAYS 05/07/18 17:55 Blood Culture - Preliminary Blood NO GROWTH AFTER 3 DAYS Lab Studies 05/11/18 05/11/18 05/11/18 Range/Units 07:24 06:36 06:36 WBC (4.8-10.8) K/uL RBC (3.80-5.20) Mil/uL Hgb (11.0-16.0) g/dL Hct (34.0-47.0) % MCV (81.0-99.0) fL MCH (27.0-31.0) pg MCHC (33.0-37.0) g/dL RDW (11.5-14.5) % Plt Count (130-400) K/uL MPV (7.2-11.7) fL Neut % (Auto) (50.0-75.0) % Lymph % (Auto) (20.0-40.0) % [place] % (Auto) (0.0-10.0) % Eos % (Auto) (0.0-4.0) % Baso % (Auto) (0.0-2.0) % Neut # (Auto) (1.8-7.0) K/uL Lymph # (Auto) (1.0-4.3) K/uL [place] # (Auto) (0.0-0.8) K/uL Eos # (Auto) (0.0-0.7) K/uL Baso # (Auto) (0.0-0.2) K/uL Neutrophils % (Manual) (50-75) % Band Neutrophils % (0-2) % Lymphocytes % (Manual) (20-40) % Monocytes % (Manual) (0-10) % Eosinophils % (Manual) (0-4) % Nucleated RBC % (0-0) % Toxic Granulation Platelet Estimate (NORMAL) Large Platelets Polychromasia Hypochromasia (manual) Poikilocytosis (manual Anisocytosis (manual) Ovalocytes Sushil Cells APTT (21-34) SECONDS Puncture Site pCO2 (35-45) mm/Hg pO2 (80-100) mm/Hg HCO3 (21-28) mmol/L ABG pH (7.35-7.45) ABG Total CO2 (22-28) mmol/L ABG O2 Saturation (95-98) % ABG Base Excess (-2.0-3.0) mmol/L ABG Hemoglobin (11.7-17.4) g/dL ABG Carboxyhemoglobin (0.5-1.5) % POC ABG HHb (Measured) (0.0-5.0) % ABG Methemoglobin (0.0-3.0) % Scout Test A-a O2 Difference mm/Hg Respiratory Index Hgb O2 Saturation (95.0-98.0) % Vent Mode Mechanical Rate FiO2 % Tidal Volume PEEP Sodium 158 H (132-148) mmol/L Potassium 3.4 L (3.6-5.2) mmol/L Chloride 124 H (98-107) mmol/L Carbon Dioxide 24 (22-30) mmol/L Anion Gap 12 (10-20) BUN 29 H (7-17) mg/dL Creatinine 1.0 (0.7-1.2) mg/dL Est GFR ( Amer) > 60 Est GFR (Non-Af Amer) 53 POC Glucose (mg/dL) 170 H (65-110) mg/dL Random Glucose 123 H (65-105) mg/dL Calcium 8.8 (8.6-10.4) mg/dl Phosphorus 2.3 L (2.5-4.5) mg/dL Magnesium 1.8 (1.6-2.3) mg/dL Total Bilirubin 0.8 (0.2-1.3) mg/dL AST 704 H (14-36) U/L ALT 931 H (9-52) U/L Alkaline Phosphatase 72 (38-126) U/L Total Protein 5.4 L (6.3-8.3) g/dL Albumin 2.9 L D (3.5-5.0) g/dL Globulin 2.5 (2.2-3.9) gm/dL Albumin/Globulin Ratio 1.1 (1.0-2.1) Random Vancomycin 8.0 ug/mL 05/11/18 05/11/18 05/11/18 Range/Units 06:36 05:27 04:12 WBC 17.8 H (4.8-10.8) K/uL RBC 4.02 (3.80-5.20) Mil/uL Hgb 12.0 (11.0-16.0) g/dL Hct 35.3 (34.0-47.0) % MCV 87.9 (81.0-99.0) fL MCH 30.0 (27.0-31.0) pg MCHC 34.1 (33.0-37.0) g/dL RDW 18.2 H (11.5-14.5) % Plt Count 135 (130-400) K/uL MPV 8.6 (7.2-11.7) fL Neut % (Auto) 86.5 H (50.0-75.0) % Lymph % (Auto) 8.3 L (20.0-40.0) % [place] % (Auto) 4.2 (0.0-10.0) % Eos % (Auto) 0.7 (0.0-4.0) % Baso % (Auto) 0.3 (0.0-2.0) % Neut # (Auto) 15.4 H (1.8-7.0) K/uL Lymph # (Auto) 1.5 (1.0-4.3) K/uL [place] # (Auto) 0.7 (0.0-0.8) K/uL Eos # (Auto) 0.1 (0.0-0.7) K/uL Baso # (Auto) 0.1 (0.0-0.2) K/uL Neutrophils % (Manual) 76 H (50-75) % Band Neutrophils % 12 H* (0-2) % Lymphocytes % (Manual) 7 L (20-40) % Monocytes % (Manual) 3 (0-10) % Eosinophils % (Manual) 2 (0-4) % Nucleated RBC % (0-0) % Toxic Granulation Present Platelet Estimate Normal (NORMAL) Large Platelets Present Polychromasia Slight Hypochromasia (manual) Slight Poikilocytosis (manual Slight Anisocytosis (manual) Moderate Ovalocytes Slight [place] Cells Slight APTT (21-34) SECONDS Puncture Site R bra pCO2 32 L (35-45) mm/Hg pO2 166 H (80-100) mm/Hg HCO3 24.6 (21-28) mmol/L ABG pH 7.46 H (7.35-7.45) ABG Total CO2 23.8 (22-28) mmol/L ABG O2 Saturation 99.2 H (95-98) % ABG Base Excess -0.4 (-2.0-3.0) mmol/L ABG Hemoglobin 12.1 (11.7-17.4) g/dL ABG Carboxyhemoglobin 1.3 (0.5-1.5) % POC ABG HHb (Measured) 0.8 (0.0-5.0) % ABG Methemoglobin 1.3 (0.0-3.0) % Scout Test Na A-a O2 Difference 151.0 mm/Hg Respiratory Index 0.9 Hgb O2 Saturation 96.6 (95.0-98.0) % Vent Mode Prvc Mechanical Rate 16 FiO2 50.0 % Tidal Volume 400 PEEP 5 Sodium (132-148) mmol/L Potassium (3.6-5.2) mmol/L Chloride (98-107) mmol/L Carbon Dioxide (22-30) mmol/L Anion Gap (10-20) BUN (7-17) mg/dL Creatinine (0.7-1.2) mg/dL Est GFR ( Amer) Est GFR (Non-Af Amer) POC Glucose (mg/dL) 127 H (65-110) mg/dL Random Glucose (65-105) mg/dL Calcium (8.6-10.4) mg/dl Phosphorus (2.5-4.5) mg/dL Magnesium (1.6-2.3) mg/dL Total Bilirubin (0.2-1.3) mg/dL AST (14-36) U/L ALT (9-52) U/L Alkaline Phosphatase (38-126) U/L Total Protein (6.3-8.3) g/dL Albumin (3.5-5.0) g/dL Globulin (2.2-3.9) gm/dL Albumin/Globulin Ratio (1.0-2.1) Random Vancomycin ug/mL 05/10/18 05/10/18 05/10/18 Range/Units 23:41 23:10 23:10 WBC (4.8-10.8) K/uL RBC (3.80-5.20) Mil/uL Hgb (11.0-16.0) g/dL Hct (34.0-47.0) % MCV (81.0-99.0) fL MCH (27.0-31.0) pg MCHC (33.0-37.0) g/dL RDW (11.5-14.5) % Plt Count (130-400) K/uL MPV (7.2-11.7) fL Neut % (Auto) (50.0-75.0) % Lymph % (Auto) (20.0-40.0) % [place] % (Auto) (0.0-10.0) % Eos % (Auto) (0.0-4.0) % Baso % (Auto) (0.0-2.0) % Neut # (Auto) (1.8-7.0) K/uL Lymph # (Auto) (1.0-4.3) K/uL [place] # (Auto) (0.0-0.8) K/uL Eos # (Auto) (0.0-0.7) K/uL Baso # (Auto) (0.0-0.2) K/uL Neutrophils % (Manual) (50-75) % Band Neutrophils % (0-2) % Lymphocytes % (Manual) (20-40) % Monocytes % (Manual) (0-10) % Eosinophils % (Manual) (0-4) % Nucleated RBC % (0-0) % Toxic Granulation Platelet Estimate (NORMAL) Large Platelets Polychromasia Hypochromasia (manual) Poikilocytosis (manual Anisocytosis (manual) Ovalocytes Sushil Cells APTT 25 (21-34) SECONDS Puncture Site pCO2 (35-45) mm/Hg pO2 (80-100) mm/Hg HCO3 (21-28) mmol/L ABG pH (7.35-7.45) ABG Total CO2 (22-28) mmol/L ABG O2 Saturation (95-98) % ABG Base Excess (-2.0-3.0) mmol/L ABG Hemoglobin (11.7-17.4) g/dL ABG Carboxyhemoglobin (0.5-1.5) % POC ABG HHb (Measured) (0.0-5.0) % ABG Methemoglobin (0.0-3.0) % Scout Test A-a O2 Difference mm/Hg Respiratory Index Hgb O2 Saturation (95.0-98.0) % Vent Mode Mechanical Rate FiO2 % Tidal Volume PEEP Sodium 158 H (132-148) mmol/L Potassium 3.0 L (3.6-5.2) mmol/L Chloride 126 H (98-107) mmol/L Carbon Dioxide 23 (22-30) mmol/L Anion Gap 12 (10-20) BUN 35 H (7-17) mg/dL Creatinine 1.1 (0.7-1.2) mg/dL Est GFR ( Amer) 57 Est GFR (Non-Af Amer) 47 POC Glucose (mg/dL) 172 H (65-110) mg/dL Random Glucose 137 H (65-105) mg/dL Calcium 8.4 L (8.6-10.4) mg/dl Phosphorus 2.8 (2.5-4.5) mg/dL Magnesium 1.8 (1.6-2.3) mg/dL Total Bilirubin 0.8 (0.2-1.3) mg/dL AST 804 H D (14-36) U/L ALT 868 H D (9-52) U/L Alkaline Phosphatase 60 (38-126) U/L Total Protein 4.8 L (6.3-8.3) g/dL Albumin 2.4 L (3.5-5.0) g/dL Globulin 2.3 (2.2-3.9) gm/dL Albumin/Globulin Ratio 1.0 (1.0-2.1) Random Vancomycin ug/mL 05/10/18 05/10/18 05/10/18 Range/Units 23:10 19:30 15:42 WBC 15.0 H (4.8-10.8) K/uL RBC 3.76 L (3.80-5.20) Mil/uL Hgb 11.1 (11.0-16.0) g/dL Hct 32.9 L (34.0-47.0) % MCV 87.4 (81.0-99.0) fL MCH 29.6 (27.0-31.0) pg MCHC 33.8 (33.0-37.0) g/dL RDW 17.7 H (11.5-14.5) % Plt Count 123 L (130-400) K/uL MPV 8.2 (7.2-11.7) fL Neut % (Auto) 86.2 H (50.0-75.0) % Lymph % (Auto) 7.7 L (20.0-40.0) % [place] % (Auto) 4.9 (0.0-10.0) % Eos % (Auto) 0.8 (0.0-4.0) % Baso % (Auto) 0.4 (0.0-2.0) % Neut # (Auto) 12.9 H (1.8-7.0) K/uL Lymph # (Auto) 1.2 (1.0-4.3) K/uL [place] # (Auto) 0.7 (0.0-0.8) K/uL Eos # (Auto) 0.1 (0.0-0.7) K/uL Baso # (Auto) 0.1 (0.0-0.2) K/uL Neutrophils % (Manual) 77 H (50-75) % Band Neutrophils % 16 H* (0-2) % Lymphocytes % (Manual) 5 L (20-40) % Monocytes % (Manual) 2 (0-10) % Eosinophils % (Manual) (0-4) % Nucleated RBC % 1 H (0-0) % Toxic Granulation Platelet Estimate Slightly decreased L (NORMAL) Large Platelets Polychromasia Hypochromasia (manual) Poikilocytosis (manual Slight Anisocytosis (manual) Slight Ovalocytes [place] Cells APTT (21-34) SECONDS Puncture Site pCO2 (35-45) mm/Hg pO2 (80-100) mm/Hg HCO3 (21-28) mmol/L ABG pH (7.35-7.45) ABG Total CO2 (22-28) mmol/L ABG O2 Saturation (95-98) % ABG Base Excess (-2.0-3.0) mmol/L ABG Hemoglobin (11.7-17.4) g/dL ABG Carboxyhemoglobin (0.5-1.5) % POC ABG HHb (Measured) (0.0-5.0) % ABG Methemoglobin (0.0-3.0) % Scout Test A-a O2 Difference mm/Hg Respiratory Index Hgb O2 Saturation (95.0-98.0) % Vent Mode Mechanical Rate FiO2 % Tidal Volume PEEP Sodium (132-148) mmol/L Potassium (3.6-5.2) mmol/L Chloride (98-107) mmol/L Carbon Dioxide (22-30) mmol/L Anion Gap (10-20) BUN (7-17) mg/dL Creatinine (0.7-1.2) mg/dL Est GFR ( Amer) Est GFR (Non-Af Amer) POC Glucose (mg/dL) 126 H 153 H (65-110) mg/dL Random Glucose (65-105) mg/dL Calcium (8.6-10.4) mg/dl Phosphorus (2.5-4.5) mg/dL Magnesium (1.6-2.3) mg/dL Total Bilirubin (0.2-1.3) mg/dL AST (14-36) U/L ALT (9-52) U/L Alkaline Phosphatase (38-126) U/L Total Protein (6.3-8.3) g/dL Albumin (3.5-5.0) g/dL Globulin (2.2-3.9) gm/dL Albumin/Globulin Ratio (1.0-2.1) Random Vancomycin ug/mL 05/10/18 Range/Units 11:55 WBC (4.8-10.8) K/uL RBC (3.80-5.20) Mil/uL Hgb (11.0-16.0) g/dL Hct (34.0-47.0) % MCV (81.0-99.0) fL MCH (27.0-31.0) pg MCHC (33.0-37.0) g/dL RDW (11.5-14.5) % Plt Count (130-400) K/uL MPV (7.2-11.7) fL Neut % (Auto) (50.0-75.0) % Lymph % (Auto) (20.0-40.0) % [place] % (Auto) (0.0-10.0) % Eos % (Auto) (0.0-4.0) % Baso % (Auto) (0.0-2.0) % Neut # (Auto) (1.8-7.0) K/uL Lymph # (Auto) (1.0-4.3) K/uL [place] # (Auto) (0.0-0.8) K/uL Eos # (Auto) (0.0-0.7) K/uL Baso # (Auto) (0.0-0.2) K/uL Neutrophils % (Manual) (50-75) % Band Neutrophils % (0-2) % Lymphocytes % (Manual) (20-40) % Monocytes % (Manual) (0-10) % Eosinophils % (Manual) (0-4) % Nucleated RBC % (0-0) % Toxic Granulation Platelet Estimate (NORMAL) Large Platelets Polychromasia Hypochromasia (manual) Poikilocytosis (manual Anisocytosis (manual) Ovalocytes [place] Cells APTT (21-34) SECONDS Puncture Site pCO2 (35-45) mm/Hg pO2 (80-100) mm/Hg HCO3 (21-28) mmol/L ABG pH (7.35-7.45) ABG Total CO2 (22-28) mmol/L ABG O2 Saturation (95-98) % ABG Base Excess (-2.0-3.0) mmol/L ABG Hemoglobin (11.7-17.4) g/dL ABG Carboxyhemoglobin (0.5-1.5) % POC ABG HHb (Measured) (0.0-5.0) % ABG Methemoglobin (0.0-3.0) % Scout Test A-a O2 Difference mm/Hg Respiratory Index Hgb O2 Saturation (95.0-98.0) % Vent Mode Mechanical Rate FiO2 % Tidal Volume PEEP Sodium (132-148) mmol/L Potassium (3.6-5.2) mmol/L Chloride (98-107) mmol/L Carbon Dioxide (22-30) mmol/L Anion Gap (10-20) BUN (7-17) mg/dL Creatinine (0.7-1.2) mg/dL Est GFR ( Amer) Est GFR (Non-Af Amer) POC Glucose (mg/dL) 173 H (65-110) mg/dL Random Glucose (65-105) mg/dL Calcium (8.6-10.4) mg/dl Phosphorus (2.5-4.5) mg/dL Magnesium (1.6-2.3) mg/dL Total Bilirubin (0.2-1.3) mg/dL AST (14-36) U/L ALT (9-52) U/L Alkaline Phosphatase (38-126) U/L Total Protein (6.3-8.3) g/dL Albumin (3.5-5.0) g/dL Globulin (2.2-3.9) gm/dL Albumin/Globulin Ratio (1.0-2.1) Random Vancomycin ug/mL Laboratory Results - last 24 hr 05/10/18 05/10/18 05/10/18 11:55 15:42 19:30 WBC RBC Hgb Hct MCV MCH MCHC RDW Plt Count MPV Neut % (Auto) Lymph % (Auto) [place] % (Auto) Eos % (Auto) Baso % (Auto) Neut # (Auto) Lymph # (Auto) [place] # (Auto) Eos # (Auto) Baso # (Auto) Neutrophils % (Manual) Band Neutrophils % Lymphocytes % (Manual) Monocytes % (Manual) Eosinophils % (Manual) Nucleated RBC % Toxic Granulation Platelet Estimate Large Platelets Polychromasia Hypochromasia (manual) Poikilocytosis (manual Anisocytosis (manual) Ovalocytes [place]den Cells APTT Puncture Site pCO2 pO2 HCO3 ABG pH ABG Total CO2 ABG O2 Saturation ABG Base Excess ABG Hemoglobin ABG Carboxyhemoglobin POC ABG HHb (Measured) ABG Methemoglobin Scout Test A-a O2 Difference Respiratory Index Hgb O2 Saturation Vent Mode Mechanical Rate FiO2 Tidal Volume PEEP Sodium Potassium Chloride Carbon Dioxide Anion Gap BUN Creatinine Est GFR ( Amer) Est GFR (Non-Af Amer) POC Glucose (mg/dL) 173 H 153 H 126 H Random Glucose Calcium Phosphorus Magnesium Total Bilirubin AST ALT Alkaline Phosphatase Total Protein Albumin Globulin Albumin/Globulin Ratio Random Vancomycin 05/10/18 05/10/18 05/10/18 23:10 23:10 23:10 WBC 15.0 H RBC 3.76 L Hgb 11.1 Hct 32.9 L MCV 87.4 MCH 29.6 MCHC 33.8 RDW 17.7 H Plt Count 123 L MPV 8.2 Neut % (Auto) 86.2 H Lymph % (Auto) 7.7 L [place] % (Auto) 4.9 Eos % (Auto) 0.8 Baso % (Auto) 0.4 Neut # (Auto) 12.9 H Lymph # (Auto) 1.2 [place] # (Auto) 0.7 Eos # (Auto) 0.1 Baso # (Auto) 0.1 Neutrophils % (Manual) 77 H Band Neutrophils % 16 H* Lymphocytes % (Manual) 5 L Monocytes % (Manual) 2 Eosinophils % (Manual) Nucleated RBC % 1 H Toxic Granulation Platelet Estimate Slightly decreased L Large Platelets Polychromasia Hypochromasia (manual) Poikilocytosis (manual Slight Anisocytosis (manual) Slight Ovalocytes Sushil Cells APTT 25 Puncture Site pCO2 pO2 HCO3 ABG pH ABG Total CO2 ABG O2 Saturation ABG Base Excess ABG Hemoglobin ABG Carboxyhemoglobin POC ABG HHb (Measured) ABG Methemoglobin Scout Test A-a O2 Difference Respiratory Index Hgb O2 Saturation Vent Mode Mechanical Rate FiO2 Tidal Volume PEEP Sodium 158 H Potassium 3.0 L Chloride 126 H Carbon Dioxide 23 Anion Gap 12 BUN 35 H Creatinine 1.1 Est GFR ( Amer) 57 Est GFR (Non-Af Amer) 47 POC Glucose (mg/dL) Random Glucose 137 H Calcium 8.4 L Phosphorus 2.8 Magnesium 1.8 Total Bilirubin 0.8 AST 804 H D ALT 868 H D Alkaline Phosphatase 60 Total Protein 4.8 L Albumin 2.4 L Globulin 2.3 Albumin/Globulin Ratio 1.0 Random Vancomycin 05/10/18 05/11/18 05/11/18 23:41 04:12 05:27 WBC RBC Hgb Hct MCV MCH MCHC RDW Plt Count MPV Neut % (Auto) Lymph % (Auto) [place] % (Auto) Eos % (Auto) Baso % (Auto) Neut # (Auto) Lymph # (Auto) [place] # (Auto) Eos # (Auto) Baso # (Auto) Neutrophils % (Manual) Band Neutrophils % Lymphocytes % (Manual) Monocytes % (Manual) Eosinophils % (Manual) Nucleated RBC % Toxic Granulation Platelet Estimate Large Platelets Polychromasia Hypochromasia (manual) Poikilocytosis (manual Anisocytosis (manual) Ovalocytes Belden Cells APTT Puncture Site R bra pCO2 32 L pO2 166 H HCO3 24.6 ABG pH 7.46 H ABG Total CO2 23.8 ABG O2 Saturation 99.2 H ABG Base Excess -0.4 ABG Hemoglobin 12.1 ABG Carboxyhemoglobin 1.3 POC ABG HHb (Measured) 0.8 ABG Methemoglobin 1.3 Scout Test Na A-a O2 Difference 151.0 Respiratory Index 0.9 Hgb O2 Saturation 96.6 Vent Mode Prvc Mechanical Rate 16 FiO2 50.0 Tidal Volume 400 PEEP 5 Sodium Potassium Chloride Carbon Dioxide Anion Gap BUN Creatinine Est GFR ( Amer) Est GFR (Non-Af Amer) POC Glucose (mg/dL) 172 H 127 H Random Glucose Calcium Phosphorus Magnesium Total Bilirubin AST ALT Alkaline Phosphatase Total Protein Albumin Globulin Albumin/Globulin Ratio Random Vancomycin 05/11/18 05/11/18 05/11/18 06:36 06:36 06:36 WBC 17.8 H RBC 4.02 Hgb 12.0 Hct 35.3 MCV 87.9 MCH 30.0 MCHC 34.1 RDW 18.2 H Plt Count 135 MPV 8.6 Neut % (Auto) 86.5 H Lymph % (Auto) 8.3 L [place] % (Auto) 4.2 Eos % (Auto) 0.7 Baso % (Auto) 0.3 Neut # (Auto) 15.4 H Lymph # (Auto) 1.5 [place] # (Auto) 0.7 Eos # (Auto) 0.1 Baso # (Auto) 0.1 Neutrophils % (Manual) 76 H Band Neutrophils % 12 H* Lymphocytes % (Manual) 7 L Monocytes % (Manual) 3 Eosinophils % (Manual) 2 Nucleated RBC % Toxic Granulation Present Platelet Estimate Normal Large Platelets Present Polychromasia Slight Hypochromasia (manual) Slight Poikilocytosis (manual Slight Anisocytosis (manual) Moderate Ovalocytes Slight [place]den Cells Slight APTT Puncture Site pCO2 pO2 HCO3 ABG pH ABG Total CO2 ABG O2 Saturation ABG Base Excess ABG Hemoglobin ABG Carboxyhemoglobin POC ABG HHb (Measured) ABG Methemoglobin Scout Test A-a O2 Difference Respiratory Index Hgb O2 Saturation Vent Mode Mechanical Rate FiO2 Tidal Volume PEEP Sodium 158 H Potassium 3.4 L Chloride 124 H Carbon Dioxide 24 Anion Gap 12 BUN 29 H Creatinine 1.0 Est GFR ( Amer) > 60 Est GFR (Non-Af Amer) 53 POC Glucose (mg/dL) Random Glucose 123 H Calcium 8.8 Phosphorus 2.3 L Magnesium 1.8 Total Bilirubin 0.8 AST 704 H ALT 931 H Alkaline Phosphatase 72 Total Protein 5.4 L Albumin 2.9 L D Globulin 2.5 Albumin/Globulin Ratio 1.1 Random Vancomycin 8.0 05/11/18 07:24 WBC RBC Hgb Hct MCV MCH MCHC RDW Plt Count MPV Neut % (Auto) Lymph % (Auto) [place] % (Auto) Eos % (Auto) Baso % (Auto) Neut # (Auto) Lymph # (Auto) [place] # (Auto) Eos # (Auto) Baso # (Auto) Neutrophils % (Manual) Band Neutrophils % Lymphocytes % (Manual) Monocytes % (Manual) Eosinophils % (Manual) Nucleated RBC % Toxic Granulation Platelet Estimate Large Platelets Polychromasia Hypochromasia (manual) Poikilocytosis (manual Anisocytosis (manual) Ovalocytes Sushil Cells APTT Puncture Site pCO2 pO2 HCO3 ABG pH ABG Total CO2 ABG O2 Saturation ABG Base Excess ABG Hemoglobin ABG Carboxyhemoglobin POC ABG HHb (Measured) ABG Methemoglobin Scout Test A-a O2 Difference Respiratory Index Hgb O2 Saturation Vent Mode Mechanical Rate FiO2 Tidal Volume PEEP Sodium Potassium Chloride Carbon Dioxide Anion Gap BUN Creatinine Est GFR ( Amer) Est GFR (Non-Af Amer) POC Glucose (mg/dL) 170 H Random Glucose Calcium Phosphorus Magnesium Total Bilirubin AST ALT Alkaline Phosphatase Total Protein Albumin Globulin Albumin/Globulin Ratio Random Vancomycin Critical Care Progress Note - Nutrition Nutrition: Nutrition Category Date Time Status NPO Diet [DIET] Diets 05/09/18 Breakfast Active Assessment/Plan - Assessment and Plan (Free Text) Plan: Patient seen and examined at bedside. Patient intubated on pressors. ROS limited as patient intubated vitals reviewed labs reveiwed allergies reviewed medications reviewed A/P -Anion Gap metabolic acidosis: lactic high,check beta-hydroxybutyrate, serial lactic/BHB check, continue IV insulin ggt, monitor renal function to keep U/O >0.5 ml/kg/hr -Hypoxic respiratory failure: continue ventilation to keep SPO2 >92 and pH b/w 7.35-7.45, continue bronchodilators -Septic shock: source likely abdomen, banks culture, start broad spectrum abx, currently on aztreonam add flagyl and vanco ([facility] coverage), check CT abd/pelvis, check C. diff if diarhes -At risk of CAD: suspect type II myocardial infarction, check trops, EKG and echo, continue pressors to keep MAP >65 -Transminitis: suspect shock liver, avoid hepatotoxic drugs, monitor lfts, and INR -coagulopathy: IV vitamin K -Gi bleed;suspect large source of bleeding, transfuse to keep Hb/hct near 10/30, continue IV protonix -dvt ppx scds -pud rx protonix -Prognosis guarded as multiple diagnostic tests pending. Patient remains critical cc time 45 minutes - Date & Time Date: 05/09/18 Time: 18:00
[2018-05-09 13:48] LABS: TROPONIN I 0.345 ng/mL (0.00-0.120)
[2018-05-09] MEDS: metroNIDAZOLE IV 500 mg/100 ml 500 MG/100 ML BAG IVPB SCH ×2 (14:30→21:30)
[2018-05-09] MEDS ORDERED: Phytonadione 10 mg/ml Inj (Adult) IV STA (16:08)
--- NOTE | 2018-05-09 16:17 | CP.PCM.CON ---
History of Present Illness - History of Present Illness History of Present Illness: dictated Past Patient History - Infectious Disease Hx of Infectious Diseases: None - Past Medical History & Family History Past Medical History?: Yes - Past Social History Smoking Status: Former Smoker - CARDIAC Hx Cardia Arrhythmia: Yes Hx Congestive Heart Failure: Yes Hx Hypercholesterolemia: Yes Hx Hypertension: Yes Hx Pacemaker: Yes - PULMONARY Hx Bronchitis: Yes Hx Chronic Obstructive Pulmonary Disease (COPD): Yes Hx Pneumonia: Yes - NEUROLOGICAL Hx Seizures: No Other/Comment: CONFUSION - HEENT Hx HEENT Problems: Yes Hx Cataracts: Yes (2000 Rt.Eye,2009Left Eye) - RENAL Hx Chronic Kidney Disease: No - ENDOCRINE/METABOLIC Hx Diabetes Mellitus Type 2: Yes - HEMATOLOGICAL/ONCOLOGICAL Hx Human Immunodeficiency Virus (HIV): No - INTEGUMENTARY Hx Dermatological Problems: No Other/Comment: MACERATED PEG SITE. LEFT BUTTOCK PRESSURE ULCER. JACEK. HEEL DISCOLORATION - MUSCULOSKELETAL/RHEUMATOLOGICAL Hx Arthritis: Yes Hx Osteoporosis: Yes Hx Rheumatoid Arthritis: Yes - GASTROINTESTINAL Hx Gastrointestinal Disorders: Yes Hx Colitis: Yes Hx Gastroesophageal Reflux: Yes HX Swallowing Problems: Yes (Achalasia. 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) Hx Coronary Stent: Yes - ANESTHESIA Hx Anesthesia: Yes Hx Anesthesia Reactions: No Hx Malignant Hyperthermia: No Meds Allergies/Adverse Reactions: Allergies Allergy/AdvReac Type Severity Reaction Status Date / Time iodine Allergy REDNESS Verified 05/07/18 08:50 Penicillins Allergy ANGIOEDEMA Verified 05/07/18 08:45 clopidogrel [From Plavix] AdvReac HEADACHE Verified 05/07/18 08:45 losartan [From Cozaar] AdvReac DIZZINESS Verified 05/07/18 08:45 nitroglycerin AdvReac DIZZINESS Verified 05/07/18 08:45 - Medications Medications: Current Medications Albuterol/Ipratropium (Duoneb 3 Mg/0.5 Mg (3 Ml) Ud) 3 ml INH RQ6 PRN PRN Reason: Cough Dextrose (Dextrose 50% Inj) 0 ml IV STAT PRN; Protocol PRN Reason: Hypoglycemia Protocol Dextrose (Glutose 15) 0 gm PO ONCE PRN; Protocol PRN Reason: Hypoglycemia Protocol Glucagon (Glucagen Diagnostic Kit) 0 mg IM STAT PRN; Protocol PRN Reason: Hypoglycemia Protocol Dextrose (Dextrose 5% In Water 1000 Ml) 1,000 mls @ 0 mls/hr IV .Q0M PRN; Protocol PRN Reason: Hypoglycemia Protocol Norepinephrine Bitartrate 4 mg (/ Sodium Chloride) 250 mls @ 37.5 mls/hr IV .Q6H40M PRN; Protocol PRN Reason: TITRATE PER MD ORDER Last Titration: 05/09/18 13:24 Dose: 3 mcg/min, 11.25 mls/hr Insulin Human Regular 100 unit (/ Sodium Chloride) 100 mls @ 2 mls/hr IV .Q24H PRN; Protocol PRN Reason: FOLLOW PROTOCOL Last Titration: 05/09/18 13:25 Dose: 5 units/hr, 5 mls/hr Pantoprazole Sodium 80 mg/ (Sodium Chloride) 100 mls @ 10 mls/hr IVPB .Q10H [facility]Y Last Admin: 05/09/18 08:45 Dose: 10 mls/hr Metronidazole (Flagyl) 500 mg in 100 mls @ 100 mls/hr IVPB Q8H [facility]; Protocol Last Admin: 05/09/18 14:30 Dose: 100 mls/hr Vancomycin/Sodium Chloride (Vancomycin 1 Gm/Ns 200 Ml) 1 gm in 200 mls @ 133 mls/hr IVPB ONCE ONE; Protocol Stop: 05/09/18 18:30 Ciprofloxacin (Cipro 200mg/100ml D5w) 100 mls @ 67 mls/hr IVPB Q12H JUD[facility]; Protocol Mupirocin (Bactroban Ointment) 0 gm TOP BID JUDY Last Admin: 05/09/18 12:00 Dose: 1 applic Nystatin (Nystop Topical Powder) 1 applic TOP BID JUDY Rosuvastatin Calcium (Crestor) 10 mg PO HS JUDY Last Admin: 05/08/18 22:06 Dose: 10 mg Results - Vital Signs Recent Vital Signs: Last Vital Signs Temp 97.3 F L 05/09/18 15:15 Pulse 128 H 05/09/18 15:15 Resp 19 05/09/18 15:15 BP 166/69 H 05/09/18 15:15 Pulse Ox 100 05/09/18 14:00 - Labs Result Diagrams: 05/09/18 10:11 05/09/18 11:42 Labs: Laboratory Results - last 24 hr 05/08/18 05/08/18 05/08/18 10:06 17:47 23:25 WBC RBC Hgb Hct MCV MCH MCHC RDW Plt Count MPV Neut % (Auto) Lymph % (Auto) Boundary % (Auto) Eos % (Auto) Baso % (Auto) Neut # (Auto) Lymph # (Auto) Boundary # (Auto) Eos # (Auto) Baso # (Auto) PT INR APTT Puncture Site pCO2 pO2 HCO3 ABG pH ABG Total CO2 ABG O2 Saturation ABG Base Excess Scout Test ABG Potassium A-a O2 Difference Respiratory Index Sodium Chloride Glucose Lactate Vent Mode Mechanical Rate FiO2 Tidal Volume PEEP Crit Value Called To Crit Value Called By Crit Value Read Back Blood Gas Notified Time Potassium Carbon Dioxide Anion Gap BUN Creatinine Est GFR ( Amer) Est GFR (Non-Af Amer) POC Glucose (mg/dL) 343 H 322 H Random Glucose Lactic Acid Calcium Phosphorus Magnesium Total Bilirubin AST ALT Alkaline Phosphatase Troponin I Total Protein Albumin Globulin Albumin/Globulin Ratio Arterial Blood Potassium B-Hydroxybutyrate Blood Type A POSITIVE Antibody Screen Negative 05/09/18 05/09/18 05/09/18 06:13 06:15 06:20 WBC RBC Hgb Hct MCV MCH MCHC RDW Plt Count MPV Neut % (Auto) Lymph % (Auto) Boundary % (Auto) Eos % (Auto) Baso % (Auto) Neut # (Auto) Lymph # (Auto) Boundary # (Auto) Eos # (Auto) Baso # (Auto) PT INR APTT Puncture Site Rt fem pCO2 17 L* pO2 411 H HCO3 8.0 L* ABG pH 7.12 L* ABG Total CO2 6.0 L ABG O2 Saturation 99.9 H ABG Base Excess -21.8 L Scout Test Na ABG Potassium 7.5 H* A-a O2 Difference 281.0 Respiratory Index 0.7 Sodium 155.0 H Chloride 125.0 H Glucose 544 H* D Lactate > 20.0 H* Vent Mode Prvc Mechanical Rate 20 FiO2 100.0 Tidal Volume 450 PEEP 5 Crit Value Called To Dr mg Crit Value Called By Martin [email or web address]/rt Crit Value Read Back Y Blood Gas Notified Time 645 Potassium Carbon Dioxide Anion Gap BUN Creatinine Est GFR ( Amer) Est GFR (Non-Af Amer) POC Glucose (mg/dL) > 500 H* > 500 H* Random Glucose Lactic Acid Calcium Phosphorus Magnesium Total Bilirubin AST ALT Alkaline Phosphatase Troponin I Total Protein Albumin Globulin Albumin/Globulin Ratio Arterial Blood Potassium 7.5 H* B-Hydroxybutyrate Blood Type Antibody Screen 05/09/18 05/09/18 05/09/18 06:38 06:38 06:38 WBC 19.8 H RBC 1.37 L Hgb 4.4 L* D Hct 15.5 L MCV 112.6 H D MCH 31.8 H MCHC 28.2 L RDW 17.2 H Plt Count 315 MPV 8.4 Neut % (Auto) 75.0 Lymph % (Auto) 20.1 Boundary % (Auto) 4.4 Eos % (Auto) 0.1 Baso % (Auto) 0.4 Neut # (Auto) 14.9 H Lymph # (Auto) 4.0 Boundary # (Auto) 0.9 H Eos # (Auto) 0.0 Baso # (Auto) 0.1 PT INR APTT Puncture Site pCO2 pO2 HCO3 ABG pH ABG Total CO2 ABG O2 Saturation ABG Base Excess Scout Test ABG Potassium A-a O2 Difference Respiratory Index Sodium 161 H* Chloride 124 H Glucose Lactate Vent Mode Mechanical Rate FiO2 Tidal Volume PEEP Crit Value Called To Crit Value Called By Crit Value Read Back Blood Gas Notified Time Potassium 7.2 H* D Carbon Dioxide 8 L* D Anion Gap 36 H BUN 46 H Creatinine 1.1 Est GFR ( Amer) 57 Est GFR (Non-Af Amer) 47 POC Glucose (mg/dL) Random Glucose 545 H* D Lactic Acid 20.4 H* Calcium 9.1 Phosphorus 6.7 H Magnesium 2.9 H Total Bilirubin 0.4 AST 139 H D ALT 65 H D Alkaline Phosphatase 61 Troponin I Total Protein 4.5 L Albumin 2.5 L Globulin 2.0 L Albumin/Globulin Ratio 1.2 Arterial Blood Potassium B-Hydroxybutyrate Blood Type Antibody Screen 05/09/18 05/09/18 05/09/18 08:22 09:10 09:19 WBC RBC Hgb Hct MCV MCH MCHC RDW Plt Count MPV Neut % (Auto) Lymph % (Auto) Boundary % (Auto) Eos % (Auto) Baso % (Auto) Neut # (Auto) Lymph # (Auto) Boundary # (Auto) Eos # (Auto) Baso # (Auto) PT 18.4 H INR 1.7 APTT 22 Puncture Site pCO2 pO2 HCO3 ABG pH ABG Total CO2 ABG O2 Saturation ABG Base Excess Scout Test ABG Potassium A-a O2 Difference Respiratory Index Sodium Chloride Glucose Lactate Vent Mode Mechanical Rate FiO2 Tidal Volume PEEP Crit Value Called To Crit Value Called By Crit Value Read Back Blood Gas Notified Time Potassium Carbon Dioxide Anion Gap BUN Creatinine Est GFR ( Amer) Est GFR (Non-Af Amer) POC Glucose (mg/dL) 471 H* 433 H* Random Glucose Lactic Acid Calcium Phosphorus Magnesium Total Bilirubin AST ALT Alkaline Phosphatase Troponin I Total Protein Albumin Globulin Albumin/Globulin Ratio Arterial Blood Potassium B-Hydroxybutyrate Blood Type Antibody Screen 05/09/18 05/09/18 05/09/18 09:59 10:07 10:11 WBC 29.1 H RBC 3.66 L Hgb 10.8 L D Hct 33.8 L MCV 92.2 D MCH 29.5 MCHC 32.0 L RDW 19.4 H Plt Count 215 D MPV 8.1 Neut % (Auto) Lymph % (Auto) Boundary % (Auto) Eos % (Auto) Baso % (Auto) Neut # (Auto) Lymph # (Auto) Boundary # (Auto) Eos # (Auto) Baso # (Auto) PT INR APTT Puncture Site pCO2 pO2 HCO3 ABG pH ABG Total CO2 ABG O2 Saturation ABG Base Excess Scout Test ABG Potassium A-a O2 Difference Respiratory Index Sodium Chloride Glucose Lactate Vent Mode Mechanical Rate FiO2 Tidal Volume PEEP Crit Value Called To Crit Value Called By Crit Value Read Back Blood Gas Notified Time Potassium Carbon Dioxide Anion Gap BUN Creatinine Est GFR ( Amer) Est GFR (Non-Af Amer) POC Glucose (mg/dL) 438 H* 410 H* Random Glucose Lactic Acid Calcium Phosphorus Magnesium Total Bilirubin AST ALT Alkaline Phosphatase Troponin I Total Protein Albumin Globulin Albumin/Globulin Ratio Arterial Blood Potassium B-Hydroxybutyrate Blood Type Antibody Screen 05/09/18 05/09/18 05/09/18 11:05 11:42 12:13 WBC RBC Hgb Hct MCV MCH MCHC RDW Plt Count MPV Neut % (Auto) Lymph % (Auto) Boundary % (Auto) Eos % (Auto) Baso % (Auto) Neut # (Auto) Lymph # (Auto) Boundary # (Auto) Eos # (Auto) Baso # (Auto) PT INR APTT Puncture Site pCO2 pO2 HCO3 ABG pH ABG Total CO2 ABG O2 Saturation ABG Base Excess Scout Test ABG Potassium A-a O2 Difference Respiratory Index Sodium 161 H* Chloride 123 H Glucose Lactate Vent Mode Mechanical Rate FiO2 Tidal Volume PEEP Crit Value Called To Crit Value Called By Crit Value Read Back Blood Gas Notified Time Potassium 5.4 H Carbon Dioxide 16 L Anion Gap 27 H BUN 57 H Creatinine 1.1 Est GFR ( Amer) 57 Est GFR (Non-Af Amer) 47 POC Glucose (mg/dL) 418 H* 396 H Random Glucose 413 H* D Lactic Acid Calcium 9.2 Phosphorus 5.5 H Magnesium 2.5 H Total Bilirubin 0.7 AST 1721 H ALT 1077 H Alkaline Phosphatase 79 Troponin I 0.3450 H* Total Protein 5.5 L Albumin 3.1 L D Globulin 2.5 Albumin/Globulin Ratio 1.3 Arterial Blood Potassium B-Hydroxybutyrate Blood Type Antibody Screen 05/09/18 05/09/18 05/09/18 13:14 13:33 13:33 WBC RBC Hgb Hct MCV MCH MCHC RDW Plt Count MPV Neut % (Auto) Lymph % (Auto) Boundary % (Auto) Eos % (Auto) Baso % (Auto) Neut # (Auto) Lymph # (Auto) Boundary # (Auto) Eos # (Auto) Baso # (Auto) PT INR APTT Puncture Site pCO2 pO2 HCO3 ABG pH ABG Total CO2 ABG O2 Saturation ABG Base Excess Scout Test ABG Potassium A-a O2 Difference Respiratory Index Sodium Chloride Glucose Lactate Vent Mode Mechanical Rate FiO2 Tidal Volume PEEP Crit Value Called To Crit Value Called By Crit Value Read Back Blood Gas Notified Time Potassium Carbon Dioxide Anion Gap BUN Creatinine Est GFR ( Amer) Est GFR (Non-Af Amer) POC Glucose (mg/dL) 349 H Random Glucose Lactic Acid 4.3 H* Calcium Phosphorus Magnesium Total Bilirubin AST ALT Alkaline Phosphatase Troponin I Total Protein Albumin Globulin Albumin/Globulin Ratio Arterial Blood Potassium B-Hydroxybutyrate 0.50 H Blood Type Antibody Screen 05/09/18 05/09/18 14:12 14:22 WBC RBC Hgb Hct MCV MCH MCHC RDW Plt Count MPV Neut % (Auto) Lymph % (Auto) Boundary % (Auto) Eos % (Auto) Baso % (Auto) Neut # (Auto) Lymph # (Auto) Boundary # (Auto) Eos # (Auto) Baso # (Auto) PT INR APTT Puncture Site pCO2 pO2 HCO3 ABG pH ABG Total CO2 ABG O2 Saturation ABG Base Excess Scout Test ABG Potassium A-a O2 Difference Respiratory Index Sodium Chloride Glucose Lactate 3.9 H Vent Mode Mechanical Rate FiO2 Tidal Volume PEEP Crit Value Called To Crit Value Called By Crit Value Read Back Blood Gas Notified Time Potassium Carbon Dioxide Anion Gap BUN Creatinine Est GFR ( Amer) Est GFR (Non-Af Amer) POC Glucose (mg/dL) 307 H Random Glucose Lactic Acid Calcium Phosphorus Magnesium Total Bilirubin AST ALT Alkaline Phosphatase Troponin I Total Protein Albumin Globulin Albumin/Globulin Ratio Arterial Blood Potassium B-Hydroxybutyrate Blood Type Antibody Screen
[2018-05-09] MEDS: Ciprofloxacin 200mg/100ml D5W 100 ML IVPB SCH (16:53)
[2018-05-09] MEDS ORDERED: Vancomycin 1 gm/NS 200 ml 1 GM/200 ML BAG IVPB ONE (17:00)
[2018-05-09 21:37] LABS: BASO # 0.1 K/uL (0.0-0.2); BASO % 0.3 % (0.0-2.0); EOS % 0.1 % (0.0-4.0); LYMPH % 16.7 % (20.0-40.0); MEAN CELL VOLUME 85.5 fL (81.0-99.0); MEAN CORPUSCULAR HEMOGLOBIN 29.2 pg (27.0-31.0); MEAN CORPUSCULAR HGB CONC 34.1 g/dL (33.0-37.0); MEAN PLATELET VOLUME 7.9 fL (7.2-11.7); MONO # 0.9 K/uL (0.0-0.8); NEUT # 14.1 K/uL (1.8-7.0); NEUT % 77.9 % (50.0-75.0); RBC 4.47 Mil/uL (3.80-5.20); RED CELL DISTRIBUTION WIDTH 17.1 % (11.5-14.5)
[2018-05-09 21:40] LABS: PLATELET COUNT 118 K/uL (130-400)
[2018-05-09 22:55] LABS: BANDS 20 % (0-2); LYMPHOCYTE 14 % (20-40); MONOCYTE 4 % (0-10); NEUTROPHIL 62 % (50-75); NUCLEATED RED BLOOD CELL 3 % (0-0); PLATELET ESTIMATE SLIGHTLY DECREASED (NORMAL); TOTAL CELLS COUNTED 100
--- NOTE | 2018-05-09 23:11 | CP.PCM.PN ---
Subjective - Date & Time of Evaluation Date of Evaluation: 05/08/18 Time of Evaluation: 08:20 - Subjective Subjective: Patient seen and evaluated in ICU No new events noted Objective - Vital Signs/Intake and Output Vital Signs (last 24 hours): Temp Pulse Resp BP Pulse Ox 98.4 F 116 H 20 192/79 H 100 05/09/18 20:00 05/09/18 21:47 05/09/18 21:47 05/09/18 21:47 05/09/18 21:47 Intake and Output: 05/09/18 05/10/18 18:59 06:59 Intake Total 4205.2 498.8 Output Total 1 Balance 4205.2 497.8 - Medications Medications: Current Medications Albuterol/Ipratropium (Duoneb 3 Mg/0.5 Mg (3 Ml) Ud) 3 ml INH RQ6 PRN PRN Reason: Cough Dextrose (Dextrose 50% Inj) 0 ml IV STAT PRN; Protocol PRN Reason: Hypoglycemia Protocol Dextrose (Glutose 15) 0 gm PO ONCE PRN; Protocol PRN Reason: Hypoglycemia Protocol Glucagon (Glucagen Diagnostic Kit) 0 mg IM STAT PRN; Protocol PRN Reason: Hypoglycemia Protocol Dextrose (Dextrose 5% In Water 1000 Ml) 1,000 mls @ 0 mls/hr IV .Q0M PRN; Miranda col PRN Reason: Hypoglycemia Protocol Norepinephrine Bitartrate 4 mg (/ Sodium Chloride) 250 mls @ 37.5 mls/hr IV .Q6H40M PRN; Protocol PRN Reason: TITRATE PER MD ORDER Last Titration: 05/09/18 19:00 Dose: 0 mcg/min, 0 mls/hr Insulin Human Regular 100 unit (/ Sodium Chloride) 100 mls @ 2 mls/hr IV .Q24H PRN; Protocol PRN Reason: FOLLOW PROTOCOL Last Titration: 05/09/18 21:00 Dose: 2 units/hr, 2 mls/hr Pantoprazole Sodium 80 mg/ (Sodium Chloride) 100 mls @ 10 mls/hr IVPB .Q10H [facility] Last Admin: 05/09/18 16:39 Dose: 10 mls/hr Metronidazole (Flagyl) 500 mg in 100 mls @ 100 mls/hr IVPB Q8H [facility]; Protocol Last Admin: 05/09/18 21:30 Dose: 100 mls/hr Ciprofloxacin (Cipro 200mg/100ml D5w) 100 mls @ 67 mls/hr IVPB Q12H [facility]; Protocol Last Admin: 05/09/18 16:53 Dose: 67 mls/hr Neomycin/Polymyxin/Bacitracin (Neosporin Triple Antibiotic Oint) 0 gm TOP BID JUDY Nystatin (Nystop Topical Powder) 1 applic TOP BID JUDY Last Admin: 05/09/18 17:59 Dose: 1 applic Rosuvastatin Calcium (Crestor) 10 mg PO HS JUDY Last Admin: 05/09/18 21:25 Dose: Not Given Verapamil HCl (Verapamil Inj) 2.5 mg IVP Q4 PRN PRN Reason: Heart rate - Labs Labs: 05/09/18 21:16 05/09/18 11:42 PT 18.4 SECONDS (9.7-12.2) H 05/09/18 09:10 INR 1.7 05/09/18 09:10 APTT 22 SECONDS (21-34) 05/09/18 09:10
--- NOTE | 2018-05-09 23:13 | CP.PCM.PN ---
Subjective - Date & Time of Evaluation Date of Evaluation: 05/09/18 Time of Evaluation: 18:15 - Subjective Subjective: Patient seen and evaluated Unresponsive On ventilator Objective - Vital Signs/Intake and Output Vital Signs (last 24 hours): Temp Pulse Resp BP Pulse Ox 98.4 F 116 H 20 192/79 H 100 05/09/18 20:00 05/09/18 21:47 05/09/18 21:47 05/09/18 21:47 05/09/18 21:47 Intake and Output: 05/09/18 05/10/18 18:59 06:59 Intake Total 4205.2 498.8 Output Total 1 Balance 4205.2 497.8 - Medications Medications: Current Medications Albuterol/Ipratropium (Duoneb 3 Mg/0.5 Mg (3 Ml) Ud) 3 ml INH RQ6 PRN PRN Reason: Cough Dextrose (Dextrose 50% Inj) 0 ml IV STAT PRN; Protocol PRN Reason: Hypoglycemia Protocol Dextrose (Glutose 15) 0 gm PO ONCE PRN; Protocol PRN Reason: Hypoglycemia Protocol Glucagon (Glucagen Diagnostic Kit) 0 mg IM STAT PRN; Protocol PRN Reason: Hypoglycemia Protocol Dextrose (Dextrose 5% In Water 1000 Ml) 1,000 mls @ 0 mls/hr IV .Q0M PRN; Miranda col PRN Reason: Hypoglycemia Protocol Norepinephrine Bitartrate 4 mg (/ Sodium Chloride) 250 mls @ 37.5 mls/hr IV .Q6H40M PRN; Protocol PRN Reason: TITRATE PER MD ORDER Last Titration: 05/09/18 19:00 Dose: 0 mcg/min, 0 mls/hr Insulin Human Regular 100 unit (/ Sodium Chloride) 100 mls @ 2 mls/hr IV .Q24H PRN; Protocol PRN Reason: FOLLOW PROTOCOL Last Titration: 05/09/18 21:00 Dose: 2 units/hr, 2 mls/hr Pantoprazole Sodium 80 mg/ (Sodium Chloride) 100 mls @ 10 mls/hr IVPB .Q10H JUDY Last Admin: 05/09/18 16:39 Dose: 10 mls/hr Metronidazole (Flagyl) 500 mg in 100 mls @ 100 mls/hr IVPB Q8H [facility]; Protocol Last Admin: 05/09/18 21:30 Dose: 100 mls/hr Ciprofloxacin (Cipro 200mg/100ml D5w) 100 mls @ 67 mls/hr IVPB Q12H [facility]; Protocol Last Admin: 05/09/18 16:53 Dose: 67 mls/hr Neomycin/Polymyxin/Bacitracin (Neosporin Triple Antibiotic Oint) 0 gm TOP BID JUDY Nystatin (Nystop Topical Powder) 1 applic TOP BID JUDY Last Admin: 05/09/18 17:59 Dose: 1 applic Rosuvastatin Calcium (Crestor) 10 mg PO HS JUDY Last Admin: 05/09/18 21:25 Dose: Not Given Verapamil HCl (Verapamil Inj) 2.5 mg IVP Q4 PRN PRN Reason: Heart rate - Labs Labs: 05/09/18 21:16 05/09/18 11:42 PT 18.4 SECONDS (9.7-12.2) H 05/09/18 09:10 INR 1.7 05/09/18 09:10 APTT 22 SECONDS (21-34) 05/09/18 09:10 Assessment and Plan - Assessment and Plan (Free Text) Assessment: Patient is an 87 year old female with past medical history HTN, CHF, CAD, COPD, T2DM, tracheostomy following aspiration pneumonitis, presenting with altered mental status and found to be septic and hyperglycemic. Plan: Neuro: Anoxic brain injury -pupils unreactive -CT head when stable -EEG and Neuro eval when stable - intuabted unresponsive Cardio: - likely Hypovolemic Shock - Pt Hypotensive this AM - Fluid ressucitation to keep CVP between 8-12 - tittrate pressors and keep MAP >65 Risk of CAD/ Type 2 RI -trops elevate .34, follow serial -f/u EKG and Echo -not a candidate for anticoag - achieve Hg >10 Pulm: Hypoxic respiratory failure - maintain ventillation to keep spO2 - intubated vent settings : R 20 TV 400 PEEP 5 fiO2 70 GI: Acute blood loss anemia - melanous stools x 2 - Transfusion of 4 PRBCs, 2 FFPs, 2 Platelets - Monitor with serial CBC f/u 9pm this evening - PTX drip @ 8 w/ bolus of 80mg - Dr Dye recommending CT angio to localize bleed for embolization - Dr Black consulted and aware of case Transaminitis - shock liver likley cause - monitor LFTs - avoid hep toxic drugs Endo: Metabolic Acidosis - Gluc >400 - Elevated lactate - DKA likely - insulin drip - NS at 125 ccs/hr - change to 1/2 ns when gluc <250 - monitor CMP Mag Phos and beta hydroxy every 6 hrs - f.u A1C and TSH Renal: Acute Renal Failure - Cr 1.1 - retaining 350ml on last scan - minial urine output today - monitor to keep at 0.5ml/kg/hr ID: Septic Shock - Febrile, tachycardic, and tachypneic in ED - Given 2 gm aztreonam and Flagy/ 500 q 8 adding Vanco for gram pos - check CDiff is diarrhea - AM Lactate >20, f/u afternoon Lactate DVT PPX SCDs not candidate for anticoag IV PTX prognosis guarded, d/w with daughter
[2018-05-10] MEDS: Pantoprazole 80 MG in Sodium Chloride 0.9% 100 ML IVPB SCH ×3 (02:53→14:19)
[2018-05-10] MEDS: Ciprofloxacin 200mg/100ml D5W 100 ML IVPB SCH ×2 (04:33→16:15)
[2018-05-10 04:44] LABS: ABG ALLEN TEST MA; ARTERIAL BLOOD GAS HEMOGLOBIN 12.7 g/dL (11.7-17.4); ARTERIAL BLOOD GAS O2 SAT 99.3 % (95-98); ARTERIAL BLOOD GAS PCO2 16 mm/Hg (35-45); ARTERIAL BLOOD GAS PH 7.59 (7.35-7.45); ARTERIAL BLOOD GAS PO2 232 mm/Hg (80-100); ARTERIAL BLOOD GAS TCO2 15.9 mmol/L (22-28)
[2018-05-10] MEDS: metroNIDAZOLE IV 500 mg/100 ml 500 MG/100 ML BAG IVPB SCH ×3 (05:01→21:31)
[2018-05-10 06:17] LABS: BASO % 0.2 % (0.0-2.0); HEMOGLOBIN 12.9 g/dL (11.0-16.0); LYMPH # 1.2 K/uL (1.0-4.3); LYMPH % 7.8 % (20.0-40.0); MEAN CELL VOLUME 87.5 fL (81.0-99.0); MEAN CORPUSCULAR HEMOGLOBIN 29.1 pg (27.0-31.0); MEAN CORPUSCULAR HGB CONC 33.2 g/dL (33.0-37.0); MEAN PLATELET VOLUME 8.4 fL (7.2-11.7); MONO # 0.5 K/uL (0.0-0.8); MONO % 3.3 % (0.0-10.0); NEUT # 14.2 K/uL (1.8-7.0); NEUT % 88.7 % (50.0-75.0); NRBC % 3.5 % (0.0-2.0); PLATELET COUNT 129 K/uL (130-400); RBC 4.44 Mil/uL (3.80-5.20); RED CELL DISTRIBUTION WIDTH 17.5 % (11.5-14.5); WHITE BLOOD COUNT 16.1 K/uL (4.8-10.8)
[2018-05-10 06:33] LABS: ALB/GLOB RATIO 1.1 (1.0-2.1); ALBUMIN 2.7 g/dL (3.5-5.0); CALCIUM 8.9 mg/dl (8.6-10.4)
[2018-05-10] MEDS: Sodium Chloride 0.45% 1,000 ML IV SCH ×2 (06:50→20:23)
[2018-05-10] MEDS: (Novolog) Insulin Aspart, Recombinant 100 u/ml 10 ml vial SC SCH ×4 (08:00→20:00)
--- NOTE | 2018-05-10 08:02 | CP.PCM.PN ---
Subjective - Date & Time of Evaluation Date of Evaluation: 05/10/18 Time of Evaluation: 07:00 - Subjective Subjective: Surgery progress note for Dr. Black Pt seen and examined this AM. patient had one small melenic stool overnight per the nursing notes. Pt is stuporific and non-responsive but does not have any grimace upon abdominal exam. Objective - Vital Signs/Intake and Output Vital Signs (last 24 hours): Temp Pulse Resp BP Pulse Ox 98.4 F 112 H 20 154/70 H 100 05/10/18 04:00 05/10/18 06:00 05/10/18 06:00 05/10/18 05:48 05/10/18 06:00 Intake and Output: 05/10/18 05/10/18 06:59 18:59 Intake Total 802.8 Output Total 2 Balance 800.8 - Medications Medications: Current Medications Albuterol/Ipratropium (Duoneb 3 Mg/0.5 Mg (3 Ml) Ud) 3 ml INH RQ6 PRN PRN Reason: Cough Dextrose (Dextrose 50% Inj) 0 ml IV STAT PRN; Protocol PRN Reason: Hypoglycemia Protocol Dextrose (Glutose 15) 0 gm PO ONCE PRN; Protocol PRN Reason: Hypoglycemia Protocol Glucagon (Glucagen Diagnostic Kit) 0 mg IM STAT PRN; Protocol PRN Reason: Hypoglycemia Protocol Dextrose (Dextrose 5% In Water 1000 Ml) 1,000 mls @ 0 mls/hr IV .Q0M PRN; Protocol PRN Reason: Hypoglycemia Protocol Norepinephrine Bitartrate 4 mg (/ Sodium Chloride) 250 mls @ 37.5 mls/hr IV .Q6H40M PRN; Protocol PRN Reason: TITRATE PER MD ORDER Last Titration: 05/09/18 19:00 Dose: 0 mcg/min, 0 mls/hr Insulin Human Regular 100 unit (/ Sodium Chloride) 100 mls @ 2 mls/hr IV .Q24H PRN; Protocol PRN Reason: FOLLOW PROTOCOL Last Titration: 05/10/18 04:00 Dose: 2 units/hr, 2 mls/hr Pantoprazole Sodium 80 mg/ (Sodium Chloride) 100 mls @ 10 mls/hr IVPB .Q10H [facility]Y Last Admin: 05/10/18 04:34 Dose: Not Given Metronidazole (Flagyl) 500 mg in 100 mls @ 100 mls/hr IVPB Q8H [facility]; Protocol Last Admin: 05/10/18 05:01 Dose: 100 mls/hr Ciprofloxacin (Cipro 200mg/100ml D5w) 100 mls @ 67 mls/hr IVPB Q12H JUDY; Pro tocol Last Admin: 05/10/18 04:33 Dose: 67 mls/hr Sodium Chloride (Sodium Chloride 0.45%) 1,000 mls @ 75 mls/hr IV .[id number] [facility] Last Admin: 05/10/18 06:50 Dose: 75 mls/hr Potassium Chloride (Potassium Chloride 20 Meq/100 Ml) 20 meq in 100 mls @ 50 mls/hr IVPB ONCE ONE Stop: 05/10/18 08:37 Last Admin: 05/10/18 06:50 Dose: 50 mls/hr Neomycin/Polymyxin/Bacitracin (Neosporin Triple Antibiotic Oint) 0 gm TOP BID [facility] Nystatin (Nystop Topical Powder) 1 applic TOP BID [facility] Last Admin: 05/09/18 17:59 Dose: 1 applic Rosuvastatin Calcium (Crestor) 10 mg PO HS JUDY Last Admin: 05/09/18 21:25 Dose: Not Given Verapamil HCl (Verapamil Inj) 2.5 mg IVP Q4 PRN PRN Reason: Heart rate - Labs Labs: 05/10/18 06:08 05/10/18 06:08 PT 18.4 SECONDS (9.7-12.2) H 05/09/18 09:10 INR 1.7 05/09/18 09:10 APTT 22 SECONDS (21-34) 05/09/18 09:10 - Constitutional Appears: Well, Non-toxic, No Acute Distress - Head Exam Head Exam: ATRAUMATIC, NORMOCEPHALIC - Eye Exam Eye Exam: Normal appearance. absent: Conjunctival injection, Scleral icterus - ENT Exam ENT Exam: Mucous Membranes Moist, Normal Oropharynx - Respiratory Exam Respiratory Exam: NORMAL BREATHING PATTERN. absent: Accessory Muscle Use, Respiratory Distress - GI/Abdominal Exam GI & Abdominal Exam: Soft. absent: Distended Additional comments: gastrostomy tube in correct position, excoriation of the skin improved - Extremities Exam Extremities Exam: absent: Calf Tenderness, Pedal Edema - Neurological Exam Neurological Exam: Altered - Psychiatric Exam Additional comments: unresponsive - Skin Skin Exam: Dry, Normal Color, Warm Assessment and Plan - Assessment and Plan (Free Text) Assessment: 87F with bleeding duodenal ulcer Plan: Trend H/H, transfuse as needed--wnl today Continue to monitor for melena protonix drip F/U GI recs supplement electrolytes as needed No further surgical intervention indicated at this time--will continue to monitor Discussed with Dr. Wayne Osorio, PGY2
--- NOTE | 2018-05-10 08:13 | CON ---
DATE: 05/09/2018 HISTORY OF PRESENT ILLNESS: Angelica Guerra was here from 03/11/2018 to 03/22/2018 in the past. This patient was recently admitted on 05/07/2018. She has a past medical history of hypertension, CHF, coronary artery disease, COPD, and diabetes type 2. She had a tracheostomy done for aspiration pneumonia, presented with altered mental status. She was increasingly getting lethargic after she went home from a snf. She has had in the past respiratory failure, now comes in with a sugar of 465. She is intubated and sedated at this time. She is receiving blood transfusion as she had a big BM, GI bleed. Dr. Dye is following. She has a duodenal ulcer, I am told by the nurse. She was in the ED, given 2 g Azactam, vancomycin and was given boluses. This was on 05/07/2018. The patient is receiving blood transfusion right now, still remains intubated, today is 05/09/2018. I am asked to see her because of increasing white count. PAST MEDICAL HISTORY: Significant for rheumatoid arthritis, coronary artery disease, cardiac arrhythmia, CHF, COPD, diabetes type 2, GERD, esophageal stricture, hypertension, hypercholesterolemia, and osteoporosis. SOCIAL HISTORY: She is a former smoker. ALLERGIES: SHE HAS ALLERGIES ALSO TO IODINE, PENICILLIN, PLAVIX, LOSARTAN, AND NITROGLYCERIN. Her PMD is Dr. Patel. PAST SURGICAL HISTORY: Significant for CABG in 1991, carotid endarterectomy in 2014, coronary stent, pacemaker also present. REVIEW OF SYSTEMS: Unable to obtain, but she has a past medical history of cardiac arrhythmias, congestive heart failure, hypercholesterolemia, hypertension and pacemaker. Pulmonary sauceda, she does have a history of COPD. Pulmonary, she has bronchitis in the past, COPD. She had respiratory failure, recently with tracheostomy. Had pneumonia. Neurologically, no seizures. She does not have kidney issues. She has a history of cataract surgeries in both eyes. No HIV disease. Dermatological, she has a PEG site redness and cellulitis. She also has a left buttock ulcer, bilateral heel discolorations. She has musculoskeletal rheumatoid arthritis present, history of osteoporosis, arthritis. GI sauceda, she has a history of gastritis, colitis, reflux disease, achalasia, and PEG tube was in 2014. , no issues. Psych, she has a history of anxiety. No substance abuse. Surgical, carotid endarterectomy, coronary artery bypass, coronary stent, and she has had anesthesia for that and has multiple penicillins with angioedema. MEDICATIONS: At this time, we started her on vancomycin, Cipro, and Flagyl. She is also on DuoNeb. She is on dextrose, glucagon is saving it for anything. She is on norepinephrine. Nystatin powder topically has been applied. Pantoprazole, calcium, and verapamil. PHYSICAL EXAMINATION: GENERAL: I find she is lethargic. Her face appears swollen and so does have generalized body. VITAL SIGNS: T-max is 99, heart rate of 122, respirations are on the vent of 20, blood pressure is 133/63. She remains lethargic, having transfusion done. NECK: Supple. LUNGS: Clear. No rhonchi, no wheezing present. HEART: S1 and S2, tachycardic. ABDOMEN: She has a PEG tube site which has some cellulitis present and some drainage from the GT tube site. Culture came out positive for Klebsiella. Abdomen is otherwise soft and nontender. EXTREMITIES: Remain with edema and right now edematous. NEUROLOGIC: She is lethargic. LABORATORY DATA: Labs show white count is 29.1, hemoglobin 7.8 now, she came with a hemoglobin of 4.4, hematocrit 15.5 and platelets of 215. Part of this could be because of bleeding. The white count went up. INR is 1.7 right now. ABG was 7.12. Her sugar was 544. She had hyperglycemia with severe DKA. Lactic acid was 20.4 and it was 4.3, and we are monitoring every 4 hours, it is 2.6. She is in ICU. Troponin was also mildly positive, 0.34. Beta-hydroxybutyrate 0.50. She had blood cultures which were negative. Urine cultures negative. Wound cultures, Klebsiella which is sensitive to Cipro. ASSESSMENT AND PLAN: At this time with the gastrostomy tube, we are putting nystatin powder. We will put with Neosporin. We will add Neosporin to it. Neosporin ointment topically along with the powder. The patient remains with acute respiratory failure, severe anemia because of acute blood loss, recent respiratory failure, arthritis with severe acidosis. We will follow and we will continue present antibiotics at this time. Val Jones MD [facility] # [id number]
--- NOTE | 2018-05-10 08:20 | RAD ---
Date of service: 05/10/2018 HISTORY: vent COMPARISON: 05/09/2018. FINDINGS: Endotracheal tube terminates 1 cm proximal to the renata. The right IJV line terminates in the SVC. LUNGS: The lungs are clear. PLEURA: No significant pleural effusion identified, no pneumothorax apparent. CARDIOVASCULAR: The heart is normal in size. Status post CABG Atherosclerotic aortic arch calcifications are present. OSSEOUS STRUCTURES: No significant abnormalities. VISUALIZED UPPER ABDOMEN: Normal. OTHER FINDINGS: None. IMPRESSION: No acute findings. No interval change.
[2018-05-10] MEDS ORDERED: Potassium Phosphate 15 MMOLE in Sodium Chloride 0.9% 250 ML IVPB SCH (08:45)
[2018-05-10 09:00] LABS: BANDS 26 % (0-2); LYMPHOCYTE 4 % (20-40); METAMYELOCYTE 1 % (0-0); MONOCYTE 2 % (0-10); NEUTROPHIL 67 % (50-75); NUCLEATED RED BLOOD CELL 4 % (0-0); TOTAL CELLS COUNTED 100
[2018-05-10 09:01] LABS: ANISOCYTOSIS MODERATE; HYPOCHROMIC SLIGHT; PLATELET ESTIMATE NORMAL (NORMAL); POLYCHROMIC SLIGHT; TOXIC GRANULATION PRESENT
[2018-05-10] MEDS: Bacitracin/Neomycin/Polymyxin Oint(30GM) TOP SCH ×2 (09:31→17:51)
[2018-05-10] MEDS ORDERED: Potassium Phosphate 15 MMOLE in Sodium Chloride 0.9% 250 ML IVPB ONE (09:58)
[2018-05-10] MEDS ORDERED: Pneumococcal 23-Valent Vaccine IM ONE (10:00)
--- NOTE | 2018-05-10 11:44 | CP.PCM.PN ---
Subjective - Date & Time of Evaluation Date of Evaluation: 05/10/18 Time of Evaluation: 11:38 - Subjective Subjective: In ICU, on vent, off pressors. Tachycardic and hypertensive. + melena but Hgb stable. Bleeding DU treated endoscopically yesterday. Numerous electrolyte disturbances being addressed by ICU medical team. Elevated transaminases, from ischemic hepatopathy Objective - Vital Signs/Intake and Output Vital Signs (last 24 hours): Temp Pulse Resp BP Pulse Ox 98.9 F 120 H 17 147/64 100 05/10/18 08:00 05/10/18 09:00 05/10/18 09:00 05/10/18 08:48 05/10/18 09:00 Intake and Output: 05/10/18 05/10/18 06:59 18:59 Intake Total 802.8 170 Output Total 2 1 Balance 800.8 169 - Medications Medications: Current Medications Albuterol/Ipratropium (Duoneb 3 Mg/0.5 Mg (3 Ml) Ud) 3 ml INH RQ6 PRN PRN Reason: Cough Dextrose (Dextrose 50% Inj) 0 ml IV STAT PRN; Protocol PRN Reason: Hypoglycemia Protocol Dextrose (Glutose 15) 0 gm PO ONCE PRN; Protocol PRN Reason: Hypoglycemia Protocol Glucagon (Glucagen Diagnostic Kit) 0 mg IM STAT PRN; Protocol PRN Reason: Hypoglycemia Protocol Dextrose (Dextrose 5% In Water 1000 Ml) 1,000 mls @ 0 mls/hr IV .Q0M PRN; Protocol PRN Reason: Hypoglycemia Protocol Norepinephrine Bitartrate 4 mg (/ Sodium Chloride) 250 mls @ 37.5 mls/hr IV .Q6H40M PRN; Protocol PRN Reason: TITRATE PER MD ORDER Last Titration: 05/09/18 19:00 Dose: 0 mcg/min, 0 mls/hr Pantoprazole Sodium 80 mg/ (Sodium Chloride) 100 mls @ 10 mls/hr IVPB .Q10H JUDY Last Admin: 05/10/18 04:34 Dose: Not Given Metronidazole (Flagyl) 500 mg in 100 mls @ 100 mls/hr IVPB Q8H JUDY; Protocol Last Admin: 05/10/18 05:01 Dose: 100 mls/hr Ciprofloxacin (Cipro 200mg/100ml D5w) 100 mls @ 67 mls/hr IVPB Q12H JUDY; Protocol Last Admin: 05/10/18 04:33 Dose: 67 mls/hr Sodium Chloride (Sodium Chloride 0.45%) 1,000 mls @ 75 mls/hr IV .[id number] [facility] Last Admin: 05/10/18 06:50 Dose: 75 mls/hr Potassium Phosphate 15 mmole/ (Sodium Chloride) 255 mls @ 42.5 mls/hr IVPB ONCE ONE Stop: 05/10/18 15:57 Insulin Aspart (Novolog) 0 unit SC Q4 [facility]; Protocol Last Admin: 05/10/18 08:00 Dose: Not Given Neomycin/Polymyxin/Bacitracin (Neosporin Triple Antibiotic Oint) 0 gm TOP BID [facility] Last Admin: 05/10/18 09:31 Dose: 1 applic Nystatin (Nystop Topical Powder) 1 applic TOP BID [facility] Last Admin: 05/10/18 09:19 Dose: 1 applic Rosuvastatin Calcium (Crestor) 10 mg PO HS [facility] Last Admin: 05/09/18 21:25 Dose: Not Given Verapamil HCl (Verapamil Inj) 2.5 mg IVP Q4 PRN PRN Reason: Heart rate - Labs Labs: 05/10/18 06:08 05/10/18 06:08 PT 18.4 SECONDS (9.7-12.2) H 05/09/18 09:10 INR 1.7 05/09/18 09:10 APTT 22 SECONDS (21-34) 05/09/18 09:10 - Constitutional Appears: Chronically Ill - Respiratory Exam Respiratory Exam: Clear to Ausculation Bilateral - Cardiovascular Exam Cardiovascular Exam: Tachycardia - GI/Abdominal Exam GI & Abdominal Exam: Soft. absent: Tenderness Assessment and Plan (1) Diabetic ketoacidosis Status: Acute (2) GI bleed Assessment & Plan: Stable. DU. Continue Protonix drip and NPO Monitor Hgb Status: Acute (3) Sepsis Status: Acute (4) Electrolyte abnormality Status: Acute (5) Ischemic hepatitis Assessment & Plan: Due to hypotension Recovery is anticipated with spiritism of hemodynamic stability Monitor Liver chemistries Status: Acute
--- NOTE | 2018-05-10 13:53 | CP.PCM.CON ---
History of Present Illness - History of Present Illness History of Present Illness: Palliative care requested by Doctor Eri for goals of care discussion Patient is a 87 yo lady with multiple admissions to this hospital due to complex chronic condition. This time patient was admitted with lethargy and AMS X 1 w ak chin. Upon admission CT head was Negative acute findings. Patient was found with infected sacral wound and some skin excoriation to PEG tube insertion. C&S from sacral wound positive Klebsiela. Flagyl and Cipro on board. Per nursing, patient had melena stool X 1. WBC 16.1, Hb 12.9, Platelts 129, band nutrophils 20, Na 162 On 05/09/18 patient was noted unresponsive and [facility] called; patient intubated and transferred to ICU. PMH: PEG, S/P trach, COPD, CABG, GERD, RA Soc. Hx: lives at home with daughter Reynaldo. Hx: denied by daughter Review of Systems - Review of Systems All systems: reviewed and no additional remarkable complaints except Review of Systems: ROS unobtained from patient due to intubation and sedation. ROS obtained from nursing. Per nursing patient is off pressors, and remains stuporic. Past Patient History - Infectious Disease Hx of Infectious Diseases: None - Past Medical History & Family History Past Medical History?: Yes - Past Social History Smoking Status: Former Smoker - CARDIAC Hx Cardia Arrhythmia: Yes Hx Congestive Heart Failure: Yes Hx Hypercholesterolemia: Yes Hx Hypertension: Yes Hx Pacemaker: Yes - PULMONARY Hx Bronchitis: Yes Hx Chronic Obstructive Pulmonary Disease (COPD): Yes Hx Pneumonia: Yes - NEUROLOGICAL Hx Seizures: No Other/Comment: CONFUSION - HEENT Hx HEENT Problems: Yes Hx Cataracts: Yes (2000 Rt.Eye,2009Left Eye) - RENAL Hx Chronic Kidney Disease: No - ENDOCRINE/METABOLIC Hx Diabetes Mellitus Type 2: Yes - HEMATOLOGICAL/ONCOLOGICAL Hx Human Immunodeficiency Virus (HIV): No - INTEGUMENTARY Hx Dermatological Problems: No Other/Comment: MACERATED PEG SITE. LEFT BUTTOCK PRESSURE ULCER. JACEK. HEEL DISCOLORATION - MUSCULOSKELETAL/RHEUMATOLOGICAL Hx Arthritis: Yes Hx Osteoporosis: Yes Hx Rheumatoid Arthritis: Yes - GASTROINTESTINAL Hx Gastrointestinal Disorders: Yes Hx Colitis: Yes Hx Gastroesophageal Reflux: Yes HX Swallowing Problems: Yes (Achalasia. 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) Hx Coronary Stent: Yes - ANESTHESIA Hx Anesthesia: Yes Hx Anesthesia Reactions: No Hx Malignant Hyperthermia: No Meds Allergies/Adverse Reactions: Allergies Allergy/AdvReac Type Severity Reaction Status Date / Time iodine Allergy REDNESS Verified 05/07/18 08:50 Penicillins Allergy ANGIOEDEMA Verified 05/07/18 08:45 clopidogrel [From Plavix] AdvReac HEADACHE Verified 05/07/18 08:45 losartan [From Cozaar] AdvReac DIZZINESS Verified 05/07/18 08:45 nitroglycerin AdvReac DIZZINESS Verified 05/07/18 08:45 - Medications Medications: Current Medications Albuterol/Ipratropium (Duoneb 3 Mg/0.5 Mg (3 Ml) Ud) 3 ml INH RQ6 PRN PRN Reason: Cough Dextrose (Dextrose 50% Inj) 0 ml IV STAT PRN; Protocol PRN Reason: Hypoglycemia Protocol Dextrose (Glutose 15) 0 gm PO ONCE PRN; Protocol PRN Reason: Hypoglycemia Protocol Glucagon (Glucagen Diagnostic Kit) 0 mg IM STAT PRN; Protocol PRN Reason: Hypoglycemia Protocol Dextrose (Dextrose 5% In Water 1000 Ml) 1,000 mls @ 0 mls/hr IV .Q0M PRN; Protocol PRN Reason: Hypoglycemia Protocol Norepinephrine Bitartrate 4 mg (/ Sodium Chloride) 250 mls @ 37.5 mls/hr IV .Q6H40M PRN; Protocol PRN Reason: TITRATE PER MD ORDER Last Titration: 05/09/18 19:00 Dose: 0 mcg/min, 0 mls/hr Pantoprazole Sodium 80 mg/ (Sodium Chloride) 100 mls @ 10 mls/hr IVPB .Q10H UJDY Last Admin: 05/10/18 04:34 Dose: Not Given Metronidazole (Flagyl) 500 mg in 100 mls @ 100 mls/hr IVPB Q8H JUDY; Protocol Last Admin: 05/10/18 05:01 Dose: 100 mls/hr Ciprofloxacin (Cipro 200mg/100ml D5w) 100 mls @ 67 mls/hr IVPB Q12H JUDY; Protocol Last Admin: 05/10/18 04:33 Dose: 67 mls/hr Sodium Chloride (Sodium Chloride 0.45%) 1,000 mls @ 75 mls/hr IV .[id number] [facility] Last Admin: 05/10/18 06:50 Dose: 75 mls/hr Potassium Phosphate 15 mmole/ (Sodium Chloride) 255 mls @ 42.5 mls/hr IVPB ONCE ONE Stop: 05/10/18 15:57 Last Admin: 05/10/18 11:38 Dose: 42.5 mls/hr Insulin Aspart (Novolog) 0 unit SC Q4 [facility]; Protocol Last Admin: 05/10/18 12:46 Dose: 2 u Neomycin/Polymyxin/Bacitracin (Neosporin Triple Antibiotic Oint) 0 gm TOP BID [facility] Last Admin: 05/10/18 09:31 Dose: 1 applic Nystatin (Nystop Topical Powder) 1 applic TOP BID [facility] Last Admin: 05/10/18 09:19 Dose: 1 applic Rosuvastatin Calcium (Crestor) 10 mg PO HS [facility] Last Admin: 05/09/18 21:25 Dose: Not Given Verapamil HCl (Verapamil Inj) 2.5 mg IVP Q4 PRN PRN Reason: Heart rate Physical Exam - Constitutional Appears: In Acute Distress, Chronically Ill - Head Exam Head Exam: ATRAUMATIC, NORMAL INSPECTION, NORMOCEPHALIC - Eye Exam Eye Exam: EOMI, Normal appearance, PERRL Pupil Exam: NORMAL ACCOMODATION, PERRL - ENT Exam Additional comments: intubated - Neck Exam Neck exam: Positive for: Normal Inspection - Respiratory Exam Respiratory Exam: Respiratory Distress - Cardiovascular Exam Cardiovascular Exam: Tachycardia - GI/Abdominal Exam Additional comments: PEG - Rectal Exam Rectal Exam: Deferred - Extremities Exam Extremities exam: Positive for: normal inspection - Back Exam Back exam: NORMAL INSPECTION Additional comments: sacral pressure sore - Neurological Exam Neurological exam: Motor Sensory Deficit - Psychiatric Exam Psychiatric exam: Flat Affect - Skin Skin Exam: Pallor Results - Vital Signs Recent Vital Signs: Last Vital Signs Temp 98.3 F 05/10/18 12:00 Pulse 122 H 05/10/18 12:11 Resp 18 05/10/18 12:11 BP 133/61 05/10/18 10:48 Pulse Ox 100 05/10/18 12:11 - Labs Result Diagrams: 05/10/18 06:08 05/10/18 06:08 Labs: Laboratory Results - last 24 hr 05/08/18 05/09/18 05/09/18 10:06 11:42 13:14 WBC RBC Hgb Hct MCV MCH MCHC RDW Plt Count MPV Neut % (Auto) Lymph % (Auto) Cloud % (Auto) Eos % (Auto) Baso % (Auto) Neut # (Auto) Lymph # (Auto) Cloud # (Auto) Eos # (Auto) Baso # (Auto) Neutrophils % (Manual) Band Neutrophils % Lymphocytes % (Manual) Monocytes % (Manual) Metamyelocytes % Nucleated RBC % Toxic Granulation Platelet Estimate Polychromasia Hypochromasia (manual) Anisocytosis (manual) Fibrinogen Puncture Site pCO2 pO2 HCO3 ABG pH ABG Total CO2 ABG O2 Saturation ABG Base Excess ABG Hemoglobin ABG Carboxyhemoglobin POC ABG HHb (Measured) ABG Methemoglobin Scout Test A-a O2 Difference Respiratory Index Hgb O2 Saturation Lactate Vent Mode Mechanical Rate FiO2 Tidal Volume PEEP Crit Value Called To Crit Value Called By Crit Value Read Back Blood Gas Notified Time Sodium Potassium Chloride Carbon Dioxide Anion Gap BUN Creatinine Est GFR ( Amer) Est GFR (Non-Af Amer) POC Glucose (mg/dL) 349 H Random Glucose Hemoglobin A1c Lactic Acid Calcium Phosphorus Magnesium Total Bilirubin AST ALT Alkaline Phosphatase Troponin I 0.3450 H* Total Protein Albumin Globulin Albumin/Globulin Ratio TSH 3rd Generation Random Vancomycin B-Hydroxybutyrate Blood Type A POSITIVE Antibody Screen Negative 05/09/18 05/09/18 05/09/18 13:33 13:33 14:12 WBC RBC Hgb Hct MCV MCH MCHC RDW Plt Count MPV Neut % (Auto) Lymph % (Auto) Cloud % (Auto) Eos % (Auto) Baso % (Auto) Neut # (Auto) Lymph # (Auto) Cloud # (Auto) Eos # (Auto) Baso # (Auto) Neutrophils % (Manual) Band Neutrophils % Lymphocytes % (Manual) Monocytes % (Manual) Metamyelocytes % Nucleated RBC % Toxic Granulation Platelet Estimate Polychromasia Hypochromasia (manual) Anisocytosis (manual) Fibrinogen Puncture Site pCO2 pO2 HCO3 ABG pH ABG Total CO2 ABG O2 Saturation ABG Base Excess ABG Hemoglobin ABG Carboxyhemoglobin POC ABG HHb (Measured) ABG Methemoglobin Scout Test A-a O2 Difference Respiratory Index Hgb O2 Saturation Lactate Vent Mode Mechanical Rate FiO2 Tidal Volume PEEP Crit Value Called To Crit Value Called By Crit Value Read Back Blood Gas Notified Time Sodium Potassium Chloride Carbon Dioxide Anion Gap BUN Creatinine Est GFR ( Amer) Est GFR (Non-Af Amer) POC Glucose (mg/dL) 307 H Random Glucose Hemoglobin A1c Lactic Acid 4.3 H* Calcium Phosphorus Magnesium Total Bilirubin AST ALT Alkaline Phosphatase Troponin I Total Protein Albumin Globulin Albumin/Globulin Ratio TSH 3rd Generation Random Vancomycin B-Hydroxybutyrate 0.50 H Blood Type Antibody Screen 05/09/18 05/09/18 05/09/18 14:22 16:13 17:11 WBC RBC Hgb Hct MCV MCH MCHC RDW Plt Count MPV Neut % (Auto) Lymph % (Auto) Cloud % (Auto) Eos % (Auto) Baso % (Auto) Neut # (Auto) Lymph # (Auto) Cloud # (Auto) Eos # (Auto) Baso # (Auto) Neutrophils % (Manual) Band Neutrophils % Lymphocytes % (Manual) Monocytes % (Manual) Metamyelocytes % Nucleated RBC % Toxic Granulation Platelet Estimate Polychromasia Hypochromasia (manual) Anisocytosis (manual) Fibrinogen Puncture Site pCO2 pO2 HCO3 ABG pH ABG Total CO2 ABG O2 Saturation ABG Base Excess ABG Hemoglobin ABG Carboxyhemoglobin POC ABG HHb (Measured) ABG Methemoglobin Scout Test A-a O2 Difference Respiratory Index Hgb O2 Saturation Lactate 3.9 H Vent Mode Mechanical Rate FiO2 Tidal Volume PEEP Crit Value Called To Crit Value Called By Crit Value Read Back Blood Gas Notified Time Sodium Potassium Chloride Carbon Dioxide Anion Gap BUN Creatinine Est GFR ( Amer) Est GFR (Non-Af Amer) POC Glucose (mg/dL) 216 H Random Glucose Hemoglobin A1c Lactic Acid 2.6 H Calcium Phosphorus Magnesium Total Bilirubin AST ALT Alkaline Phosphatase Troponin I Total Protein Albumin Globulin Albumin/Globulin Ratio TSH 3rd Generation Random Vancomycin B-Hydroxybutyrate Blood Type Antibody Screen 05/09/18 05/09/18 05/09/18 17:11 17:15 18:02 WBC RBC Hgb Hct MCV MCH MCHC RDW Plt Count MPV Neut % (Auto) Lymph % (Auto) Cloud % (Auto) Eos % (Auto) Baso % (Auto) Neut # (Auto) Lymph # (Auto) Cloud # (Auto) Eos # (Auto) Baso # (Auto) Neutrophils % (Manual) Band Neutrophils % Lymphocytes % (Manual) Monocytes % (Manual) Metamyelocytes % Nucleated RBC % Toxic Granulation Platelet Estimate Polychromasia Hypochromasia (manual) Anisocytosis (manual) Fibrinogen 218 Puncture Site pCO2 pO2 HCO3 ABG pH ABG Total CO2 ABG O2 Saturation ABG Base Excess ABG Hemoglobin ABG Carboxyhemoglobin POC ABG HHb (Measured) ABG Methemoglobin Scout Test A-a O2 Difference Respiratory Index Hgb O2 Saturation Lactate Vent Mode Mechanical Rate FiO2 Tidal Volume PEEP Crit Value Called To Crit Value Called By Crit Value Read Back Blood Gas Notified Time Sodium Potassium Chloride Carbon Dioxide Anion Gap BUN Creatinine Est GFR ( Amer) Est GFR (Non-Af Amer) POC Glucose (mg/dL) 174 H 155 H Random Glucose Hemoglobin A1c Lactic Acid Calcium Phosphorus Magnesium Total Bilirubin AST ALT Alkaline Phosphatase Troponin I Total Protein Albumin Globulin Albumin/Globulin Ratio TSH 3rd Generation Random Vancomycin B-Hydroxybutyrate Blood Type Antibody Screen 05/09/18 05/09/18 05/09/18 19:12 20:19 21:15 WBC RBC Hgb Hct MCV MCH MCHC RDW Plt Count MPV Neut % (Auto) Lymph % (Auto) Cloud % (Auto) Eos % (Auto) Baso % (Auto) Neut # (Auto) Lymph # (Auto) Cloud # (Auto) Eos # (Auto) Baso # (Auto) Neutrophils % (Manual) Band Neutrophils % Lymphocytes % (Manual) Monocytes % (Manual) Metamyelocytes % Nucleated RBC % Toxic Granulation Platelet Estimate Polychromasia Hypochromasia (manual) Anisocytosis (manual) Fibrinogen Puncture Site pCO2 pO2 HCO3 ABG pH ABG Total CO2 ABG O2 Saturation ABG Base Excess ABG Hemoglobin ABG Carboxyhemoglobin POC ABG HHb (Measured) ABG Methemoglobin Scout Test A-a O2 Difference Respiratory Index Hgb O2 Saturation Lactate Vent Mode Mechanical Rate FiO2 Tidal Volume PEEP Crit Value Called To Crit Value Called By Crit Value Read Back Blood Gas Notified Time Sodium Potassium Chloride Carbon Dioxide Anion Gap BUN Creatinine Est GFR ( Amer) Est GFR (Non-Af Amer) POC Glucose (mg/dL) 151 H 144 H 159 H Random Glucose Hemoglobin A1c Lactic Acid Calcium Phosphorus Magnesium Total Bilirubin AST ALT Alkaline Phosphatase Troponin I Total Protein Albumin Globulin Albumin/Globulin Ratio TSH 3rd Generation Random Vancomycin B-Hydroxybutyrate Blood Type Antibody Screen 05/09/18 05/09/18 05/09/18 21:16 21:16 22:16 WBC 18.0 H RBC 4.47 Hgb 13.0 D Hct 38.2 MCV 85.5 D MCH 29.2 MCHC 34.1 RDW 17.1 H Plt Count 118 L D MPV 7.9 Neut % (Auto) 77.9 H Lymph % (Auto) 16.7 L Cloud % (Auto) 5.0 Eos % (Auto) 0.1 Baso % (Auto) 0.3 Neut # (Auto) 14.1 H Lymph # (Auto) 3.0 Cloud # (Auto) 0.9 H Eos # (Auto) 0.0 Baso # (Auto) 0.1 Neutrophils % (Manual) 62 Band Neutrophils % 20 H* Lymphocytes % (Manual) 14 L Monocytes % (Manual) 4 Metamyelocytes % Nucleated RBC % 3 H Toxic Granulation Platelet Estimate Slightly decreased L Polychromasia Hypochromasia (manual) Anisocytosis (manual) Fibrinogen Puncture Site pCO2 pO2 HCO3 ABG pH ABG Total CO2 ABG O2 Saturation ABG Base Excess ABG Hemoglobin ABG Carboxyhemoglobin POC ABG HHb (Measured) ABG Methemoglobin Scout Test A-a O2 Difference Respiratory Index Hgb O2 Saturation Lactate Vent Mode Mechanical Rate FiO2 Tidal Volume PEEP Crit Value Called To Crit Value Called By Crit Value Read Back Blood Gas Notified Time Sodium Potassium Chloride Carbon Dioxide Anion Gap BUN Creatinine Est GFR ( Amer) Est GFR (Non-Af Amer) POC Glucose (mg/dL) 152 H Random Glucose Hemoglobin A1c Lactic Acid 1.9 Calcium Phosphorus Magnesium Total Bilirubin AST ALT Alkaline Phosphatase Troponin I Total Protein Albumin Globulin Albumin/Globulin Ratio TSH 3rd Generation Random Vancomycin B-Hydroxybutyrate Blood Type Antibody Screen 05/09/18 05/09/18 05/10/18 23:06 23:57 00:57 WBC RBC Hgb Hct MCV MCH MCHC RDW Plt Count MPV Neut % (Auto) Lymph % (Auto) Cloud % (Auto) Eos % (Auto) Baso % (Auto) Neut # (Auto) Lymph # (Auto) Cloud # (Auto) Eos # (Auto) Baso # (Auto) Neutrophils % (Manual) Band Neutrophils % Lymphocytes % (Manual) Monocytes % (Manual) Metamyelocytes % Nucleated RBC % Toxic Granulation Platelet Estimate Polychromasia Hypochromasia (manual) Anisocytosis (manual) Fibrinogen Puncture Site pCO2 pO2 HCO3 ABG pH ABG Total CO2 ABG O2 Saturation ABG Base Excess ABG Hemoglobin ABG Carboxyhemoglobin POC ABG HHb (Measured) ABG Methemoglobin Scout Test A-a O2 Difference Respiratory Index Hgb O2 Saturation Lactate Vent Mode Mechanical Rate FiO2 Tidal Volume PEEP Crit Value Called To Crit Value Called By Crit Value Read Back Blood Gas Notified Time Sodium Potassium Chloride Carbon Dioxide Anion Gap BUN Creatinine Est GFR ( Amer) Est GFR (Non-Af Amer) POC Glucose (mg/dL) 152 H 120 H 128 H Random Glucose Hemoglobin A1c Lactic Acid Calcium Phosphorus Magnesium Total Bilirubin AST ALT Alkaline Phosphatase Troponin I Total Protein Albumin Globulin Albumin/Globulin Ratio TSH 3rd Generation Random Vancomycin B-Hydroxybutyrate Blood Type Antibody Screen 05/10/18 05/10/18 05/10/18 02:02 03:08 04:09 WBC RBC Hgb Hct MCV MCH MCHC RDW Plt Count MPV Neut % (Auto) Lymph % (Auto) Cloud % (Auto) Eos % (Auto) Baso % (Auto) Neut # (Auto) Lymph # (Auto) Cloud # (Auto) Eos # (Auto) Baso # (Auto) Neutrophils % (Manual) Band Neutrophils % Lymphocytes % (Manual) Monocytes % (Manual) Metamyelocytes % Nucleated RBC % Toxic Granulation Platelet Estimate Polychromasia Hypochromasia (manual) Anisocytosis (manual) Fibrinogen Puncture Site pCO2 pO2 HCO3 ABG pH ABG Total CO2 ABG O2 Saturation ABG Base Excess ABG Hemoglobin ABG Carboxyhemoglobin POC ABG HHb (Measured) ABG Methemoglobin Scout Test A-a O2 Difference Respiratory Index Hgb O2 Saturation Lactate Vent Mode Mechanical Rate FiO2 Tidal Volume PEEP Crit Value Called To Crit Value Called By Crit Value Read Back Blood Gas Notified Time Sodium Potassium Chloride Carbon Dioxide Anion Gap BUN Creatinine Est GFR ( Amer) Est GFR (Non-Af Amer) POC Glucose (mg/dL) 142 H 146 H 173 H Random Glucose Hemoglobin A1c Lactic Acid Calcium Phosphorus Magnesium Total Bilirubin AST ALT Alkaline Phosphatase Troponin I Total Protein Albumin Globulin Albumin/Globulin Ratio TSH 3rd Generation Random Vancomycin B-Hydroxybutyrate Blood Type Antibody Screen 05/10/18 05/10/18 05/10/18 04:40 05:07 06:05 WBC RBC Hgb Hct MCV MCH MCHC RDW Plt Count MPV Neut % (Auto) Lymph % (Auto) Cloud % (Auto) Eos % (Auto) Baso % (Auto) Neut # (Auto) Lymph # (Auto) Cloud # (Auto) Eos # (Auto) Baso # (Auto) Neutrophils % (Manual) Band Neutrophils % Lymphocytes % (Manual) Monocytes % (Manual) Metamyelocytes % Nucleated RBC % Toxic Granulation Platelet Estimate Polychromasia Hypochromasia (manual) Anisocytosis (manual) Fibrinogen Puncture Site Rb pCO2 16 L* pO2 232 H HCO3 22.0 ABG pH 7.59 H ABG Total CO2 15.9 L ABG O2 Saturation 99.3 H ABG Base Excess -3.7 L ABG Hemoglobin 12.7 ABG Carboxyhemoglobin 1.0 POC ABG HHb (Measured) 0.7 ABG Methemoglobin 1.2 Scout Test Ma A-a O2 Difference 176.0 Respiratory Index 0.8 Hgb O2 Saturation 97.1 Lactate Vent Mode Prvc Mechanical Rate 20 FiO2 60.0 Tidal Volume 450 PEEP 5 Crit Value Called To Murali garcia/rn Crit Value Called By Martin [email or web address]/rt Crit Value Read Back Y Blood Gas Notified Time 445 Sodium Potassium Chloride Carbon Dioxide Anion Gap BUN Creatinine Est GFR ( Amer) Est GFR (Non-Af Amer) POC Glucose (mg/dL) 170 H 139 H Random Glucose Hemoglobin A1c Lactic Acid Calcium Phosphorus Magnesium Total Bilirubin AST ALT Alkaline Phosphatase Troponin I Total Protein Albumin Globulin Albumin/Globulin Ratio TSH 3rd Generation Random Vancomycin B-Hydroxybutyrate Blood Type Antibody Screen 05/10/18 05/10/18 05/10/18 06:08 06:08 06:08 WBC 16.1 H RBC 4.44 Hgb 12.9 Hct 38.8 MCV 87.5 D MCH 29.1 MCHC 33.2 RDW 17.5 H Plt Count 129 L MPV 8.4 Neut % (Auto) 88.7 H Lymph % (Auto) 7.8 L Cloud % (Auto) 3.3 Eos % (Auto) 0.0 Baso % (Auto) 0.2 Neut # (Auto) 14.2 H Lymph # (Auto) 1.2 Cloud # (Auto) 0.5 Eos # (Auto) 0.0 Baso # (Auto) 0.0 Neutrophils % (Manual) 67 Band Neutrophils % 26 H* Lymphocytes % (Manual) 4 L Monocytes % (Manual) 2 Metamyelocytes % 1 H Nucleated RBC % 4 H Toxic Granulation Present Platelet Estimate Normal Polychromasia Slight Hypochromasia (manual) Slight Anisocytosis (manual) Moderate Fibrinogen Puncture Site pCO2 pO2 HCO3 ABG pH ABG Total CO2 ABG O2 Saturation ABG Base Excess ABG Hemoglobin ABG Carboxyhemoglobin POC ABG HHb (Measured) ABG Methemoglobin Scout Test A-a O2 Difference Respiratory Index Hgb O2 Saturation Lactate Vent Mode Mechanical Rate FiO2 Tidal Volume PEEP Crit Value Called To Crit Value Called By Crit Value Read Back Blood Gas Notified Time Sodium 162 H* Potassium 2.6 L Chloride 129 H Carbon Dioxide 21 L Anion Gap 14 BUN 53 H Creatinine 1.2 Est GFR ( Amer) 52 Est GFR (Non-Af Amer) 43 POC Glucose (mg/dL) Random Glucose 167 H Hemoglobin A1c 6.5 D Lactic Acid Calcium 8.9 Phosphorus 2.4 L Magnesium 2.1 Total Bilirubin 0.8 AST 1929 H ALT 1271 H Alkaline Phosphatase 71 Troponin I Total Protein 5.0 L Albumin 2.7 L Globulin 2.4 Albumin/Globulin Ratio 1.1 TSH 3rd Generation 0.29 L Random Vancomycin B-Hydroxybutyrate Blood Type Antibody Screen 05/10/18 05/10/18 05/10/18 06:08 06:56 07:17 WBC RBC Hgb Hct MCV MCH MCHC RDW Plt Count MPV Neut % (Auto) Lymph % (Auto) Cloud % (Auto) Eos % (Auto) Baso % (Auto) Neut # (Auto) Lymph # (Auto) Cloud # (Auto) Eos # (Auto) Baso # (Auto) Neutrophils % (Manual) Band Neutrophils % Lymphocytes % (Manual) Monocytes % (Manual) Metamyelocytes % Nucleated RBC % Toxic Granulation Platelet Estimate Polychromasia Hypochromasia (manual) Anisocytosis (manual) Fibrinogen Puncture Site pCO2 pO2 HCO3 ABG pH ABG Total CO2 ABG O2 Saturation ABG Base Excess ABG Hemoglobin ABG Carboxyhemoglobin POC ABG HHb (Measured) ABG Methemoglobin Scout Test A-a O2 Difference Respiratory Index Hgb O2 Saturation Lactate Vent Mode Mechanical Rate FiO2 Tidal Volume PEEP Crit Value Called To Crit Value Called By Crit Value Read Back Blood Gas Notified Time Sodium Potassium Chloride Carbon Dioxide Anion Gap BUN Creatinine Est GFR ( Amer) Est GFR (Non-Af Amer) POC Glucose (mg/dL) 138 H 132 H Random Glucose Hemoglobin A1c Lactic Acid Calcium Phosphorus Magnesium Total Bilirubin AST ALT Alkaline Phosphatase Troponin I Total Protein Albumin Globulin Albumin/Globulin Ratio TSH 3rd Generation Random Vancomycin 15.9 B-Hydroxybutyrate Blood Type Antibody Screen 05/10/18 05/10/18 08:07 11:55 WBC RBC Hgb Hct MCV MCH MCHC RDW Plt Count MPV Neut % (Auto) Lymph % (Auto) Cloud % (Auto) Eos % (Auto) Baso % (Auto) Neut # (Auto) Lymph # (Auto) Cloud # (Auto) Eos # (Auto) Baso # (Auto) Neutrophils % (Manual) Band Neutrophils % Lymphocytes % (Manual) Monocytes % (Manual) Metamyelocytes % Nucleated RBC % Toxic Granulation Platelet Estimate Polychromasia Hypochromasia (manual) Anisocytosis (manual) Fibrinogen Puncture Site pCO2 pO2 HCO3 ABG pH ABG Total CO2 ABG O2 Saturation ABG Base Excess ABG Hemoglobin ABG Carboxyhemoglobin POC ABG HHb (Measured) ABG Methemoglobin Scout Test A-a O2 Difference Respiratory Index Hgb O2 Saturation Lactate Vent Mode Mechanical Rate FiO2 Tidal Volume PEEP Crit Value Called To Crit Value Called By Crit Value Read Back Blood Gas Notified Time Sodium Potassium Chloride Carbon Dioxide Anion Gap BUN Creatinine Est GFR ( Amer) Est GFR (Non-Af Amer) POC Glucose (mg/dL) 140 H 173 H Random Glucose Hemoglobin A1c Lactic Acid Calcium Phosphorus Magnesium Total Bilirubin AST ALT Alkaline Phosphatase Troponin I Total Protein Albumin Globulin Albumin/Globulin Ratio TSH 3rd Generation Random Vancomycin B-Hydroxybutyrate Blood Type Antibody Screen Assessment & Plan - Assessment and Plan (Free Text) Assessment: Palliative consult Full Code, there is no Advance directive on chart, PPS 10% I reviewed medical records, all diagnostic studies, examined patient in the bed Patient is intubated, not sedated, reacts to tactile stimuli rajat, unable to fallow simple commends.Patient is not breathing over vent. Skin is pale. There is excoriation around PEG tube, area is moist. Sacral pressure sore covered with dressing. Patient is tachycardic. BP maintained without pressors and controlled with BP meds. There is nospntaneos movements of extremities. Patient is max assistance with care. Goals of care discussed with daughter at bed side. I reviewed patient's clinical presentation and elicited her understanding of situation. The daughter stated being happy that the mother is not using pressors any more. She hopes her mother will recover " as she did so many times til now". Daughter was not aware what really triggered changes in her mother's condition but admits noticing sacral wound, and says did not know what to do with it. I eductaed daughter on S/S of infection and made her aware of Klebsela infection in wound and action we took. I further elicited daughter's expectations and suggested that her mother's condition was very complex due to significant medical Hx. The daughter did not seem to fully understand how severely ill her mother was ; she said she needed her mother with her . I acknowledged it and suggested that at some point in life we all need to think of end of life. I discussed patient's respiratory status. The daughter was very clear that would like her mother to be given trach if she was not weanable. ( patient had trach until recently and was weaned off, tracheostomy closed up). Impression * Chronically ill lady in acute respiratory distress * AMS * infected sacral pressure sore * Patient's daughter advocates for patient * patient's daughter is requesting all agressive measures to support life including tracheostomy if needed * Daughter requests Full Code Suggestion * Continue MV support * Promote skin integrity, clean skin around PEG Q shift with NaCl , apply Bicitracin and cover with gauze. Keep skin dry * Wound care consult for sacral pressure sore * Tracheostomy if patient should need prolonged assistance from MV * Full Code Palliative care will continue to fallow up with patent and her daughter and offer support. Advance care planing time 30 min
--- NOTE | 2018-05-10 15:38 | CARD ---
APPROVED REPORT Date of service: 05/09/2018 EKG Measurement Heart [id number] [id number] <Conclusion> Sinus tachycardia with short [place] ST & T wave abnormality, consider anterolateral ischemia ? RBBB Abnormal ECG
--- NOTE | 2018-05-10 16:40 | CP.CCUPN ---
<Geovani Moser L - Last Filed: 05/10/18 17:29> CCU Subjective - Physician Review Subjective (Free Text): Critical Care Progress Note Patient examined at bedside. Patient is s/p intubation and unable to provide history. Critical Care Time Spent (in minutes): 35 CCU Objective - Vital Signs / Intake & Output Vital Signs (Last 4 hours): Vital Signs Temp Pulse Resp BP Pulse Ox 05/10/18 16:23 186/92 H 05/10/18 16:22 120 H 16 100 05/10/18 16:01 119 H 16 185/89 H 100 05/10/18 16:00 97.9 F 119 H 23 99 05/10/18 15:58 115 H 16 99 05/10/18 15:56 118 H 20 99 05/10/18 15:55 118 H 17 99 05/10/18 15:49 115 H 16 188/96 H 99 05/10/18 15:00 97 H 16 100 05/10/18 14:49 102 H 16 121/53 L 100 05/10/18 14:00 113 H 16 100 05/10/18 13:00 100 H 16 100 05/10/18 12:48 104 H 16 143/58 L 100 Intake and Output (Last 8hrs): Intake & Output 05/10/18 05/10/18 05/10/18 06:59 14:59 22:59 Intake Total 304 872 195 Output Total 1 1 300 Balance 303 871 -105 Weight 100 lb Intake: IV 6 Intake, IV Amount 298 872 195 Right Distal Port 90 70 20 Internal Jugular Right Proximal Port Int 8 252 Jug Y SITE Right Proximal Port 550 175 Internal Jugular Right medial Port Y site 200 Output: Urine 300 Urine, Voided 300 Stool 1 Urine/Stool Mix 1 Emesis 0 0 Oral Regurgitation 0 Other: # Voids Urine, Voided 0 0 # Bowel Movements 0 0 - Physical Exam Head: Positive for: Atraumatic, Normocephalic Pupils: Positive for: PERRL Extroacular Muscles: Positive for: EOMI Conjunctiva: Positive for: Normal Mouth: Positive for: Moist Mucous Membranes Respiratory/Chest: Positive for: Clear to Auscultation, Good Air Exchange Cardiovascular: Positive for: Regular Rate and Rhythm, Normal S1, S2 Abdomen: Positive for: Normal Bowel Sounds. Negative for: Tenderness, Distention Upper Extremity: Positive for: Normal Inspection. Negative for: Cyanosis, Edema Lower Extremity: Positive for: Normal Inspection, NORMAL PULSES. Negative for: Edema Skin: Positive for: Warm, Dry, Normal Color - Medications Active Medications: Active Medications Generic Name Dose Route Start Last Admin Trade Name Freq PRN Reason Stop Dose Admin Albuterol/Ipratropium 3 ml 05/07/18 21:18 Duoneb 3 Mg/0.5 Mg (3 Ml) Ud INH RQ6 PRN Cough Dextrose 0 ml 05/07/18 11:11 Dextrose 50% Inj IV STAT PRN Hypoglycemia Protocol Protocol Dextrose 0 gm 05/07/18 11:11 Glutose 15 PO ONCE PRN Hypoglycemia Protocol Protocol Glucagon 0 mg 05/07/18 11:11 Glucagen Diagnostic Kit IM STAT PRN Hypoglycemia Protocol Protocol Dextrose 1,000 mls @ 0 mls/hr 05/07/18 11:11 Dextrose 5% In Water 1000 Ml IV .Q0M PRN Hypoglycemia Protocol Protocol Per Protocol Norepinephrine Bitartrate 4 mg 250 mls @ 37.5 mls/hr 05/09/18 06:44 05/09/18 19:00 / Sodium Chloride IV 0 mcg/min .Q6H40M PRN 0 mls/hr TITRATE PER MD ORDER Titration Protocol 10 MCG/MIN Pantoprazole Sodium 80 mg/ 100 mls @ 10 mls/hr 05/09/18 08:30 05/10/18 14:19 Sodium Chloride IVPB 10 mls/hr .Q10H JUDY Administration 8 MG/HR Metronidazole 500 mg in 100 mls @ 100 mls/hr 05/09/18 14:00 05/10/18 14:20 Flagyl IVPB 100 mls/hr Q8H JUDY Administration Protocol Ciprofloxacin 100 mls @ 67 mls/hr 05/09/18 17:00 05/10/18 16:15 Cipro 200mg/100ml D5w IVPB 67 mls/hr Q12H JUDY Administration Protocol Sodium Chloride 1,000 mls @ 75 mls/hr 05/10/18 06:45 05/10/18 06:50 Sodium Chloride 0.45% IV 75 mls/hr .[id number] JUDY Administration Insulin Aspart 0 unit 05/10/18 08:15 05/10/18 16:15 Novolog SC 2 u Q4 JUYD Administration Protocol Neomycin/Polymyxin/Bacitracin 0 gm 05/10/18 10:00 05/10/18 09:31 Neosporin Triple Antibiotic Oint TOP 1 applic BID JUDY Administration Nystatin 1 applic 05/09/18 18:00 05/10/18 09:19 Nystop Topical Powder TOP 1 applic BID JUDY Administration Rosuvastatin Calcium 10 mg 05/07/18 22:00 05/09/18 21:25 Crestor PO Not Given HS JUDY Verapamil HCl 2.5 mg 05/09/18 17:48 Verapamil Inj IVP Q4 PRN Heart rate - Patient Studies Lab Studies: Microbiology Studies 05/07/18 09:01 Blood Culture - Preliminary Blood NO GROWTH AFTER 3 DAYS 05/07/18 17:55 Blood Culture - Preliminary Blood NO GROWTH AFTER 48 HOURS Lab Studies 05/10/18 05/10/18 05/10/18 Range/Units 15:42 11:55 08:07 WBC (4.8-10.8) K/uL RBC (3.80-5.20) Mil/uL Hgb (11.0-16.0) g/dL Hct (34.0-47.0) % MCV (81.0-99.0) fL MCH (27.0-31.0) pg MCHC (33.0-37.0) g/dL RDW (11.5-14.5) % Plt Count (130-400) K/uL MPV (7.2-11.7) fL Neut % (Auto) (50.0-75.0) % Lymph % (Auto) (20.0-40.0) % [place] % (Auto) (0.0-10.0) % Eos % (Auto) (0.0-4.0) % Baso % (Auto) (0.0-2.0) % Neut # (Auto) (1.8-7.0) K/uL Lymph # (Auto) (1.0-4.3) K/uL [place] # (Auto) (0.0-0.8) K/uL Eos # (Auto) (0.0-0.7) K/uL Baso # (Auto) (0.0-0.2) K/uL Neutrophils % (Manual) (50-75) % Band Neutrophils % (0-2) % Lymphocytes % (Manual) (20-40) % Monocytes % (Manual) (0-10) % Metamyelocytes % (0-0) % Nucleated RBC % (0-0) % Toxic Granulation Platelet Estimate (NORMAL) Polychromasia Hypochromasia (manual) Anisocytosis (manual) Fibrinogen (200-400) mg/dL Puncture Site pCO2 (35-45) mm/Hg pO2 (80-100) mm/Hg HCO3 (21-28) mmol/L ABG pH (7.35-7.45) ABG Total CO2 (22-28) mmol/L ABG O2 Saturation (95-98) % ABG Base Excess (-2.0-3.0) mmol/L ABG Hemoglobin (11.7-17.4) g/dL ABG Carboxyhemoglobin (0.5-1.5) % POC ABG HHb (Measured) (0.0-5.0) % ABG Methemoglobin (0.0-3.0) % Scout Test A-a O2 Difference mm/Hg Respiratory Index Hgb O2 Saturation (95.0-98.0) % Vent Mode Mechanical Rate FiO2 % Tidal Volume PEEP Crit Value Called To Crit Value Called By Crit Value Read Back Blood Gas Notified Time Sodium (132-148) mmol/L Potassium (3.6-5.2) mmol/L Chloride (98-107) mmol/L Carbon Dioxide (22-30) mmol/L Anion Gap (10-20) BUN (7-17) mg/dL Creatinine (0.7-1.2) mg/dL Est GFR ( Amer) Est GFR (Non-Af Amer) POC Glucose (mg/dL) 153 H 173 H 140 H (65-110) mg/dL Random Glucose (65-105) mg/dL Hemoglobin A1c (4.2-6.5) % Lactic Acid (0.7-2.1) mmol/L Calcium (8.6-10.4) mg/dl Phosphorus (2.5-4.5) mg/dL Magnesium (1.6-2.3) mg/dL Total Bilirubin (0.2-1.3) mg/dL AST (14-36) U/L ALT (9-52) U/L Alkaline Phosphatase (38-126) U/L Total Protein (6.3-8.3) g/dL Albumin (3.5-5.0) g/dL Globulin (2.2-3.9) gm/dL Albumin/Globulin Ratio (1.0-2.1) TSH 3rd Generation (0.46-4.68) mIU/L Random Vancomycin ug/mL Blood Type Antibody Screen 05/10/18 05/10/18 05/10/18 Range/Units 07:17 06:56 06:08 WBC (4.8-10.8) K/uL RBC (3.80-5.20) Mil/uL Hgb (11.0-16.0) g/dL Hct (34.0-47.0) % MCV (81.0-99.0) fL MCH (27.0-31.0) pg MCHC (33.0-37.0) g/dL RDW (11.5-14.5) % Plt Count (130-400) K/uL MPV (7.2-11.7) fL Neut % (Auto) (50.0-75.0) % Lymph % (Auto) (20.0-40.0) % [place] % (Auto) (0.0-10.0) % Eos % (Auto) (0.0-4.0) % Baso % (Auto) (0.0-2.0) % Neut # (Auto) (1.8-7.0) K/uL Lymph # (Auto) (1.0-4.3) K/uL [place] # (Auto) (0.0-0.8) K/uL Eos # (Auto) (0.0-0.7) K/uL Baso # (Auto) (0.0-0.2) K/uL Neutrophils % (Manual) (50-75) % Band Neutrophils % (0-2) % Lymphocytes % (Manual) (20-40) % Monocytes % (Manual) (0-10) % Metamyelocytes % (0-0) % Nucleated RBC % (0-0) % Toxic Granulation Platelet Estimate (NORMAL) Polychromasia Hypochromasia (manual) Anisocytosis (manual) Fibrinogen (200-400) mg/dL Puncture Site pCO2 (35-45) mm/Hg pO2 (80-100) mm/Hg HCO3 (21-28) mmol/L ABG pH (7.35-7.45) ABG Total CO2 (22-28) mmol/L ABG O2 Saturation (95-98) % ABG Base Excess (-2.0-3.0) mmol/L ABG Hemoglobin (11.7-17.4) g/dL ABG Carboxyhemoglobin (0.5-1.5) % POC ABG HHb (Measured) (0.0-5.0) % ABG Methemoglobin (0.0-3.0) % Scout Test A-a O2 Difference mm/Hg Respiratory Index Hgb O2 Saturation (95.0-98.0) % Vent Mode Mechanical Rate FiO2 % Tidal Volume PEEP Crit Value Called To Crit Value Called By Crit Value Read Back Blood Gas Notified Time Sodium (132-148) mmol/L Potassium (3.6-5.2) mmol/L Chloride (98-107) mmol/L Carbon Dioxide (22-30) mmol/L Anion Gap (10-20) BUN (7-17) mg/dL Creatinine (0.7-1.2) mg/dL Est GFR ( Amer) Est GFR (Non-Af Amer) POC Glucose (mg/dL) 132 H 138 H (65-110) mg/dL Random Glucose (65-105) mg/dL Hemoglobin A1c (4.2-6.5) % Lactic Acid (0.7-2.1) mmol/L Calcium (8.6-10.4) mg/dl Phosphorus (2.5-4.5) mg/dL Magnesium (1.6-2.3) mg/dL Total Bilirubin (0.2-1.3) mg/dL AST (14-36) U/L ALT (9-52) U/L Alkaline Phosphatase (38-126) U/L Total Protein (6.3-8.3) g/dL Albumin (3.5-5.0) g/dL Globulin (2.2-3.9) gm/dL Albumin/Globulin Ratio (1.0-2.1) TSH 3rd Generation (0.46-4.68) mIU/L Random Vancomycin 15.9 ug/mL Blood Type Antibody Screen 05/10/18 05/10/18 05/10/18 Range/Units 06:08 06:08 06:08 WBC 16.1 H (4.8-10.8) K/uL RBC 4.44 (3.80-5.20) Mil/uL Hgb 12.9 (11.0-16.0) g/dL Hct 38.8 (34.0-47.0) % MCV 87.5 D (81.0-99.0) fL MCH 29.1 (27.0-31.0) pg MCHC 33.2 (33.0-37.0) g/dL RDW 17.5 H (11.5-14.5) % Plt Count 129 L (130-400) K/uL MPV 8.4 (7.2-11.7) fL Neut % (Auto) 88.7 H (50.0-75.0) % Lymph % (Auto) 7.8 L (20.0-40.0) % [place] % (Auto) 3.3 (0.0-10.0) % Eos % (Auto) 0.0 (0.0-4.0) % Baso % (Auto) 0.2 (0.0-2.0) % Neut # (Auto) 14.2 H (1.8-7.0) K/uL Lymph # (Auto) 1.2 (1.0-4.3) K/uL [place] # (Auto) 0.5 (0.0-0.8) K/uL Eos # (Auto) 0.0 (0.0-0.7) K/uL Baso # (Auto) 0.0 (0.0-0.2) K/uL Neutrophils % (Manual) 67 (50-75) % Band Neutrophils % 26 H* (0-2) % Lymphocytes % (Manual) 4 L (20-40) % Monocytes % (Manual) 2 (0-10) % Metamyelocytes % 1 H (0-0) % Nucleated RBC % 4 H (0-0) % Toxic Granulation Present Platelet Estimate Normal (NORMAL) Polychromasia Slight Hypochromasia (manual) Slight Anisocytosis (manual) Moderate Fibrinogen (200-400) mg/dL Puncture Site pCO2 (35-45) mm/Hg pO2 (80-100) mm/Hg HCO3 (21-28) mmol/L ABG pH (7.35-7.45) ABG Total CO2 (22-28) mmol/L ABG O2 Saturation (95-98) % ABG Base Excess (-2.0-3.0) mmol/L ABG Hemoglobin (11.7-17.4) g/dL ABG Carboxyhemoglobin (0.5-1.5) % POC ABG HHb (Measured) (0.0-5.0) % ABG Methemoglobin (0.0-3.0) % Scout Test A-a O2 Difference mm/Hg Respiratory Index Hgb O2 Saturation (95.0-98.0) % Vent Mode Mechanical Rate FiO2 % Tidal Volume PEEP Crit Value Called To Crit Value Called By Crit Value Read Back Blood Gas Notified Time Sodium 162 H* (132-148) mmol/L Potassium 2.6 L (3.6-5.2) mmol/L Chloride 129 H (98-107) mmol/L Carbon Dioxide 21 L (22-30) mmol/L Anion Gap 14 (10-20) BUN 53 H (7-17) mg/dL Creatinine 1.2 (0.7-1.2) mg/dL Est GFR ( Amer) 52 Est GFR (Non-Af Amer) 43 POC Glucose (mg/dL) (65-110) mg/dL Random Glucose 167 H (65-105) mg/dL Hemoglobin A1c 6.5 D (4.2-6.5) % Lactic Acid (0.7-2.1) mmol/L Calcium 8.9 (8.6-10.4) mg/dl Phosphorus 2.4 L (2.5-4.5) mg/dL Magnesium 2.1 (1.6-2.3) mg/dL Total Bilirubin 0.8 (0.2-1.3) mg/dL AST 1929 H (14-36) U/L ALT 1271 H (9-52) U/L Alkaline Phosphatase 71 (38-126) U/L Total Protein 5.0 L (6.3-8.3) g/dL Albumin 2.7 L (3.5-5.0) g/dL Globulin 2.4 (2.2-3.9) gm/dL Albumin/Globulin Ratio 1.1 (1.0-2.1) TSH 3rd Generation 0.29 L (0.46-4.68) mIU/L Random Vancomycin ug/mL Blood Type Antibody Screen 05/10/18 05/10/18 05/10/18 Range/Units 06:05 05:07 04:40 WBC (4.8-10.8) K/uL RBC (3.80-5.20) Mil/uL Hgb (11.0-16.0) g/dL Hct (34.0-47.0) % MCV (81.0-99.0) fL MCH (27.0-31.0) pg MCHC (33.0-37.0) g/dL RDW (11.5-14.5) % Plt Count (130-400) K/uL MPV (7.2-11.7) fL Neut % (Auto) (50.0-75.0) % Lymph % (Auto) (20.0-40.0) % [place] % (Auto) (0.0-10.0) % Eos % (Auto) (0.0-4.0) % Baso % (Auto) (0.0-2.0) % Neut # (Auto) (1.8-7.0) K/uL Lymph # (Auto) (1.0-4.3) K/uL [place] # (Auto) (0.0-0.8) K/uL Eos # (Auto) (0.0-0.7) K/uL Baso # (Auto) (0.0-0.2) K/uL Neutrophils % (Manual) (50-75) % Band Neutrophils % (0-2) % Lymphocytes % (Manual) (20-40) % Monocytes % (Manual) (0-10) % Metamyelocytes % (0-0) % Nucleated RBC % (0-0) % Toxic Granulation Platelet Estimate (NORMAL) Polychromasia Hypochromasia (manual) Anisocytosis (manual) Fibrinogen (200-400) mg/dL Puncture Site Rb pCO2 16 L* (35-45) mm/Hg pO2 232 H (80-100) mm/Hg HCO3 22.0 (21-28) mmol/L ABG pH 7.59 H (7.35-7.45) ABG Total CO2 15.9 L (22-28) mmol/L ABG O2 Saturation 99.3 H (95-98) % ABG Base Excess -3.7 L (-2.0-3.0) mmol/L ABG Hemoglobin 12.7 (11.7-17.4) g/dL ABG Carboxyhemoglobin 1.0 (0.5-1.5) % POC ABG HHb (Measured) 0.7 (0.0-5.0) % ABG Methemoglobin 1.2 (0.0-3.0) % Scout Test Ma A-a O2 Difference 176.0 mm/Hg Respiratory Index 0.8 Hgb O2 Saturation 97.1 (95.0-98.0) % Vent Mode Prvc Mechanical Rate 20 FiO2 60.0 % Tidal Volume 450 PEEP 5 Crit Value Called To Murali garcia/rn Crit Value Called By Martin rodriguez/rt Crit Value Read Back Y Blood Gas Notified Time 445 Sodium (132-148) mmol/L Potassium (3.6-5.2) mmol/L Chloride (98-107) mmol/L Carbon Dioxide (22-30) mmol/L Anion Gap (10-20) BUN (7-17) mg/dL Creatinine (0.7-1.2) mg/dL Est GFR ( Amer) Est GFR (Non-Af Amer) POC Glucose (mg/dL) 139 H 170 H (65-110) mg/dL Random Glucose (65-105) mg/dL Hemoglobin A1c (4.2-6.5) % Lactic Acid (0.7-2.1) mmol/L Calcium (8.6-10.4) mg/dl Phosphorus (2.5-4.5) mg/dL Magnesium (1.6-2.3) mg/dL Total Bilirubin (0.2-1.3) mg/dL AST (14-36) U/L ALT (9-52) U/L Alkaline Phosphatase (38-126) U/L Total Protein (6.3-8.3) g/dL Albumin (3.5-5.0) g/dL Globulin (2.2-3.9) gm/dL Albumin/Globulin Ratio (1.0-2.1) TSH 3rd Generation (0.46-4.68) mIU/L Random Vancomycin ug/mL Blood Type Antibody Screen 05/10/18 05/10/18 05/10/18 Range/Units 04:09 03:08 02:02 WBC (4.8-10.8) K/uL RBC (3.80-5.20) Mil/uL Hgb (11.0-16.0) g/dL Hct (34.0-47.0) % MCV (81.0-99.0) fL MCH (27.0-31.0) pg MCHC (33.0-37.0) g/dL RDW (11.5-14.5) % Plt Count (130-400) K/uL MPV (7.2-11.7) fL Neut % (Auto) (50.0-75.0) % Lymph % (Auto) (20.0-40.0) % [place] % (Auto) (0.0-10.0) % Eos % (Auto) (0.0-4.0) % Baso % (Auto) (0.0-2.0) % Neut # (Auto) (1.8-7.0) K/uL Lymph # (Auto) (1.0-4.3) K/uL [place] # (Auto) (0.0-0.8) K/uL Eos # (Auto) (0.0-0.7) K/uL Baso # (Auto) (0.0-0.2) K/uL Neutrophils % (Manual) (50-75) % Band Neutrophils % (0-2) % Lymphocytes % (Manual) (20-40) % Monocytes % (Manual) (0-10) % Metamyelocytes % (0-0) % Nucleated RBC % (0-0) % Toxic Granulation Platelet Estimate (NORMAL) Polychromasia Hypochromasia (manual) Anisocytosis (manual) Fibrinogen (200-400) mg/dL Puncture Site pCO2 (35-45) mm/Hg pO2 (80-100) mm/Hg HCO3 (21-28) mmol/L ABG pH (7.35-7.45) ABG Total CO2 (22-28) mmol/L ABG O2 Saturation (95-98) % ABG Base Excess (-2.0-3.0) mmol/L ABG Hemoglobin (11.7-17.4) g/dL ABG Carboxyhemoglobin (0.5-1.5) % POC ABG HHb (Measured) (0.0-5.0) % ABG Methemoglobin (0.0-3.0) % Scout Test A-a O2 Difference mm/Hg Respiratory Index Hgb O2 Saturation (95.0-98.0) % Vent Mode Mechanical Rate FiO2 % Tidal Volume PEEP Crit Value Called To Crit Value Called By Crit Value Read Back Blood Gas Notified Time Sodium (132-148) mmol/L Potassium (3.6-5.2) mmol/L Chloride (98-107) mmol/L Carbon Dioxide (22-30) mmol/L Anion Gap (10-20) BUN (7-17) mg/dL Creatinine (0.7-1.2) mg/dL Est GFR ( Amer) Est GFR (Non-Af Amer) POC Glucose (mg/dL) 173 H 146 H 142 H (65-110) mg/dL Random Glucose (65-105) mg/dL Hemoglobin A1c (4.2-6.5) % Lactic Acid (0.7-2.1) mmol/L Calcium (8.6-10.4) mg/dl Phosphorus (2.5-4.5) mg/dL Magnesium (1.6-2.3) mg/dL Total Bilirubin (0.2-1.3) mg/dL AST (14-36) U/L ALT (9-52) U/L Alkaline Phosphatase (38-126) U/L Total Protein (6.3-8.3) g/dL Albumin (3.5-5.0) g/dL Globulin (2.2-3.9) gm/dL Albumin/Globulin Ratio (1.0-2.1) TSH 3rd Generation (0.46-4.68) mIU/L Random Vancomycin ug/mL Blood Type Antibody Screen 05/10/18 05/09/18 05/09/18 Range/Units 00:57 23:57 23:06 WBC (4.8-10.8) K/uL RBC (3.80-5.20) Mil/uL Hgb (11.0-16.0) g/dL Hct (34.0-47.0) % MCV (81.0-99.0) fL MCH (27.0-31.0) pg MCHC (33.0-37.0) g/dL RDW (11.5-14.5) % Plt Count (130-400) K/uL MPV (7.2-11.7) fL Neut % (Auto) (50.0-75.0) % Lymph % (Auto) (20.0-40.0) % [place] % (Auto) (0.0-10.0) % Eos % (Auto) (0.0-4.0) % Baso % (Auto) (0.0-2.0) % Neut # (Auto) (1.8-7.0) K/uL Lymph # (Auto) (1.0-4.3) K/uL [place] # (Auto) (0.0-0.8) K/uL Eos # (Auto) (0.0-0.7) K/uL Baso # (Auto) (0.0-0.2) K/uL Neutrophils % (Manual) (50-75) % Band Neutrophils % (0-2) % Lymphocytes % (Manual) (20-40) % Monocytes % (Manual) (0-10) % Metamyelocytes % (0-0) % Nucleated RBC % (0-0) % Toxic Granulation Platelet Estimate (NORMAL) Polychromasia Hypochromasia (manual) Anisocytosis (manual) Fibrinogen (200-400) mg/dL Puncture Site pCO2 (35-45) mm/Hg pO2 (80-100) mm/Hg HCO3 (21-28) mmol/L ABG pH (7.35-7.45) ABG Total CO2 (22-28) mmol/L ABG O2 Saturation (95-98) % ABG Base Excess (-2.0-3.0) mmol/L ABG Hemoglobin (11.7-17.4) g/dL ABG Carboxyhemoglobin (0.5-1.5) % POC ABG HHb (Measured) (0.0-5.0) % ABG Methemoglobin (0.0-3.0) % Scout Test A-a O2 Difference mm/Hg Respiratory Index Hgb O2 Saturation (95.0-98.0) % Vent Mode Mechanical Rate FiO2 % Tidal Volume PEEP Crit Value Called To Crit Value Called By Crit Value Read Back Blood Gas Notified Time Sodium (132-148) mmol/L Potassium (3.6-5.2) mmol/L Chloride (98-107) mmol/L Carbon Dioxide (22-30) mmol/L Anion Gap (10-20) BUN (7-17) mg/dL Creatinine (0.7-1.2) mg/dL Est GFR ( Amer) Est GFR (Non-Af Amer) POC Glucose (mg/dL) 128 H 120 H 152 H (65-110) mg/dL Random Glucose (65-105) mg/dL Hemoglobin A1c (4.2-6.5) % Lactic Acid (0.7-2.1) mmol/L Calcium (8.6-10.4) mg/dl Phosphorus (2.5-4.5) mg/dL Magnesium (1.6-2.3) mg/dL Total Bilirubin (0.2-1.3) mg/dL AST (14-36) U/L ALT (9-52) U/L Alkaline Phosphatase (38-126) U/L Total Protein (6.3-8.3) g/dL Albumin (3.5-5.0) g/dL Globulin (2.2-3.9) gm/dL Albumin/Globulin Ratio (1.0-2.1) TSH 3rd Generation (0.46-4.68) mIU/L Random Vancomycin ug/mL Blood Type Antibody Screen 05/09/18 05/09/18 05/09/18 Range/Units 22:16 21:16 21:16 WBC 18.0 H (4.8-10.8) K/uL RBC 4.47 (3.80-5.20) Mil/uL Hgb 13.0 D (11.0-16.0) g/dL Hct 38.2 (34.0-47.0) % MCV 85.5 D (81.0-99.0) fL MCH 29.2 (27.0-31.0) pg MCHC 34.1 (33.0-37.0) g/dL RDW 17.1 H (11.5-14.5) % Plt Count 118 L D (130-400) K/uL MPV 7.9 (7.2-11.7) fL Neut % (Auto) 77.9 H (50.0-75.0) % Lymph % (Auto) 16.7 L (20.0-40.0) % [place] % (Auto) 5.0 (0.0-10.0) % Eos % (Auto) 0.1 (0.0-4.0) % Baso % (Auto) 0.3 (0.0-2.0) % Neut # (Auto) 14.1 H (1.8-7.0) K/uL Lymph # (Auto) 3.0 (1.0-4.3) K/uL [place] # (Auto) 0.9 H (0.0-0.8) K/uL Eos # (Auto) 0.0 (0.0-0.7) K/uL Baso # (Auto) 0.1 (0.0-0.2) K/uL Neutrophils % (Manual) 62 (50-75) % Band Neutrophils % 20 H* (0-2) % Lymphocytes % (Manual) 14 L (20-40) % Monocytes % (Manual) 4 (0-10) % Metamyelocytes % (0-0) % Nucleated RBC % 3 H (0-0) % Toxic Granulation Platelet Estimate Slightly decreased L (NORMAL) Polychromasia Hypochromasia (manual) Anisocytosis (manual) Fibrinogen (200-400) mg/dL Puncture Site pCO2 (35-45) mm/Hg pO2 (80-100) mm/Hg HCO3 (21-28) mmol/L ABG pH (7.35-7.45) ABG Total CO2 (22-28) mmol/L ABG O2 Saturation (95-98) % ABG Base Excess (-2.0-3.0) mmol/L ABG Hemoglobin (11.7-17.4) g/dL ABG Carboxyhemoglobin (0.5-1.5) % POC ABG HHb (Measured) (0.0-5.0) % ABG Methemoglobin (0.0-3.0) % Scout Test A-a O2 Difference mm/Hg Respiratory Index Hgb O2 Saturation (95.0-98.0) % Vent Mode Mechanical Rate FiO2 % Tidal Volume PEEP Crit Value Called To Crit Value Called By Crit Value Read Back Blood Gas Notified Time Sodium (132-148) mmol/L Potassium (3.6-5.2) mmol/L Chloride (98-107) mmol/L Carbon Dioxide (22-30) mmol/L Anion Gap (10-20) BUN (7-17) mg/dL Creatinine (0.7-1.2) mg/dL Est GFR ( Amer) Est GFR (Non-Af Amer) POC Glucose (mg/dL) 152 H (65-110) mg/dL Random Glucose (65-105) mg/dL Hemoglobin A1c (4.2-6.5) % Lactic Acid 1.9 (0.7-2.1) mmol/L Calcium (8.6-10.4) mg/dl Phosphorus (2.5-4.5) mg/dL Magnesium (1.6-2.3) mg/dL Total Bilirubin (0.2-1.3) mg/dL AST (14-36) U/L ALT (9-52) U/L Alkaline Phosphatase (38-126) U/L Total Protein (6.3-8.3) g/dL Albumin (3.5-5.0) g/dL Globulin (2.2-3.9) gm/dL Albumin/Globulin Ratio (1.0-2.1) TSH 3rd Generation (0.46-4.68) mIU/L Random Vancomycin ug/mL Blood Type Antibody Screen 05/09/18 05/09/18 05/09/18 Range/Units 21:15 20:19 19:12 WBC (4.8-10.8) K/uL RBC (3.80-5.20) Mil/uL Hgb (11.0-16.0) g/dL Hct (34.0-47.0) % MCV (81.0-99.0) fL MCH (27.0-31.0) pg MCHC (33.0-37.0) g/dL RDW (11.5-14.5) % Plt Count (130-400) K/uL MPV (7.2-11.7) fL Neut % (Auto) (50.0-75.0) % Lymph % (Auto) (20.0-40.0) % [place] % (Auto) (0.0-10.0) % Eos % (Auto) (0.0-4.0) % Baso % (Auto) (0.0-2.0) % Neut # (Auto) (1.8-7.0) K/uL Lymph # (Auto) (1.0-4.3) K/uL [place] # (Auto) (0.0-0.8) K/uL Eos # (Auto) (0.0-0.7) K/uL Baso # (Auto) (0.0-0.2) K/uL Neutrophils % (Manual) (50-75) % Band Neutrophils % (0-2) % Lymphocytes % (Manual) (20-40) % Monocytes % (Manual) (0-10) % Metamyelocytes % (0-0) % Nucleated RBC % (0-0) % Toxic Granulation Platelet Estimate (NORMAL) Polychromasia Hypochromasia (manual) Anisocytosis (manual) Fibrinogen (200-400) mg/dL Puncture Site pCO2 (35-45) mm/Hg pO2 (80-100) mm/Hg HCO3 (21-28) mmol/L ABG pH (7.35-7.45) ABG Total CO2 (22-28) mmol/L ABG O2 Saturation (95-98) % ABG Base Excess (-2.0-3.0) mmol/L ABG Hemoglobin (11.7-17.4) g/dL ABG Carboxyhemoglobin (0.5-1.5) % POC ABG HHb (Measured) (0.0-5.0) % ABG Methemoglobin (0.0-3.0) % Scout Test A-a O2 Difference mm/Hg Respiratory Index Hgb O2 Saturation (95.0-98.0) % Vent Mode Mechanical Rate FiO2 % Tidal Volume PEEP Crit Value Called To Crit Value Called By Crit Value Read Back Blood Gas Notified Time Sodium (132-148) mmol/L Potassium (3.6-5.2) mmol/L Chloride (98-107) mmol/L Carbon Dioxide (22-30) mmol/L Anion Gap (10-20) BUN (7-17) mg/dL Creatinine (0.7-1.2) mg/dL Est GFR ( Amer) Est GFR (Non-Af Amer) POC Glucose (mg/dL) 159 H 144 H 151 H (65-110) mg/dL Random Glucose (65-105) mg/dL Hemoglobin A1c (4.2-6.5) % Lactic Acid (0.7-2.1) mmol/L Calcium (8.6-10.4) mg/dl Phosphorus (2.5-4.5) mg/dL Magnesium (1.6-2.3) mg/dL Total Bilirubin (0.2-1.3) mg/dL AST (14-36) U/L ALT (9-52) U/L Alkaline Phosphatase (38-126) U/L Total Protein (6.3-8.3) g/dL Albumin (3.5-5.0) g/dL Globulin (2.2-3.9) gm/dL Albumin/Globulin Ratio (1.0-2.1) TSH 3rd Generation (0.46-4.68) mIU/L Random Vancomycin ug/mL Blood Type Antibody Screen 05/09/18 05/09/18 05/09/18 Range/Units 18:02 17:15 17:11 WBC (4.8-10.8) K/uL RBC (3.80-5.20) Mil/uL Hgb (11.0-16.0) g/dL Hct (34.0-47.0) % MCV (81.0-99.0) fL MCH (27.0-31.0) pg MCHC (33.0-37.0) g/dL RDW (11.5-14.5) % Plt Count (130-400) K/uL MPV (7.2-11.7) fL Neut % (Auto) (50.0-75.0) % Lymph % (Auto) (20.0-40.0) % [place] % (Auto) (0.0-10.0) % Eos % (Auto) (0.0-4.0) % Baso % (Auto) (0.0-2.0) % Neut # (Auto) (1.8-7.0) K/uL Lymph # (Auto) (1.0-4.3) K/uL [place] # (Auto) (0.0-0.8) K/uL Eos # (Auto) (0.0-0.7) K/uL Baso # (Auto) (0.0-0.2) K/uL Neutrophils % (Manual) (50-75) % Band Neutrophils % (0-2) % Lymphocytes % (Manual) (20-40) % Monocytes % (Manual) (0-10) % Metamyelocytes % (0-0) % Nucleated RBC % (0-0) % Toxic Granulation Platelet Estimate (NORMAL) Polychromasia Hypochromasia (manual) Anisocytosis (manual) Fibrinogen 218 (200-400) mg/dL Puncture Site pCO2 (35-45) mm/Hg pO2 (80-100) mm/Hg HCO3 (21-28) mmol/L ABG pH (7.35-7.45) ABG Total CO2 (22-28) mmol/L ABG O2 Saturation (95-98) % ABG Base Excess (-2.0-3.0) mmol/L ABG Hemoglobin (11.7-17.4) g/dL ABG Carboxyhemoglobin (0.5-1.5) % POC ABG HHb (Measured) (0.0-5.0) % ABG Methemoglobin (0.0-3.0) % Scout Test A-a O2 Difference mm/Hg Respiratory Index Hgb O2 Saturation (95.0-98.0) % Vent Mode Mechanical Rate FiO2 % Tidal Volume PEEP Crit Value Called To Crit Value Called By Crit Value Read Back Blood Gas Notified Time Sodium (132-148) mmol/L Potassium (3.6-5.2) mmol/L Chloride (98-107) mmol/L Carbon Dioxide (22-30) mmol/L Anion Gap (10-20) BUN (7-17) mg/dL Creatinine (0.7-1.2) mg/dL Est GFR ( Amer) Est GFR (Non-Af Amer) POC Glucose (mg/dL) 155 H 174 H (65-110) mg/dL Random Glucose (65-105) mg/dL Hemoglobin A1c (4.2-6.5) % Lactic Acid (0.7-2.1) mmol/L Calcium (8.6-10.4) mg/dl Phosphorus (2.5-4.5) mg/dL Magnesium (1.6-2.3) mg/dL Total Bilirubin (0.2-1.3) mg/dL AST (14-36) U/L ALT (9-52) U/L Alkaline Phosphatase (38-126) U/L Total Protein (6.3-8.3) g/dL Albumin (3.5-5.0) g/dL Globulin (2.2-3.9) gm/dL Albumin/Globulin Ratio (1.0-2.1) TSH 3rd Generation (0.46-4.68) mIU/L Random Vancomycin ug/mL Blood Type Antibody Screen 05/09/18 05/08/18 Range/Units 17:11 10:06 WBC (4.8-10.8) K/uL RBC (3.80-5.20) Mil/uL Hgb (11.0-16.0) g/dL Hct (34.0-47.0) % MCV (81.0-99.0) fL MCH (27.0-31.0) pg MCHC (33.0-37.0) g/dL RDW (11.5-14.5) % Plt Count (130-400) K/uL MPV (7.2-11.7) fL Neut % (Auto) (50.0-75.0) % Lymph % (Auto) (20.0-40.0) % [place] % (Auto) (0.0-10.0) % Eos % (Auto) (0.0-4.0) % Baso % (Auto) (0.0-2.0) % Neut # (Auto) (1.8-7.0) K/uL Lymph # (Auto) (1.0-4.3) K/uL [place] # (Auto) (0.0-0.8) K/uL Eos # (Auto) (0.0-0.7) K/uL Baso # (Auto) (0.0-0.2) K/uL Neutrophils % (Manual) (50-75) % Band Neutrophils % (0-2) % Lymphocytes % (Manual) (20-40) % Monocytes % (Manual) (0-10) % Metamyelocytes % (0-0) % Nucleated RBC % (0-0) % Toxic Granulation Platelet Estimate (NORMAL) Polychromasia Hypochromasia (manual) Anisocytosis (manual) Fibrinogen (200-400) mg/dL Puncture Site pCO2 (35-45) mm/Hg pO2 (80-100) mm/Hg HCO3 (21-28) mmol/L ABG pH (7.35-7.45) ABG Total CO2 (22-28) mmol/L ABG O2 Saturation (95-98) % ABG Base Excess (-2.0-3.0) mmol/L ABG Hemoglobin (11.7-17.4) g/dL ABG Carboxyhemoglobin (0.5-1.5) % POC ABG HHb (Measured) (0.0-5.0) % ABG Methemoglobin (0.0-3.0) % Scout Test A-a O2 Difference mm/Hg Respiratory Index Hgb O2 Saturation (95.0-98.0) % Vent Mode Mechanical Rate FiO2 % Tidal Volume PEEP Crit Value Called To Crit Value Called By Crit Value Read Back Blood Gas Notified Time Sodium (132-148) mmol/L Potassium (3.6-5.2) mmol/L Chloride (98-107) mmol/L Carbon Dioxide (22-30) mmol/L Anion Gap (10-20) BUN (7-17) mg/dL Creatinine (0.7-1.2) mg/dL Est GFR ( Amer) Est GFR (Non-Af Amer) POC Glucose (mg/dL) (65-110) mg/dL Random Glucose (65-105) mg/dL Hemoglobin A1c (4.2-6.5) % Lactic Acid 2.6 H (0.7-2.1) mmol/L Calcium (8.6-10.4) mg/dl Phosphorus (2.5-4.5) mg/dL Magnesium (1.6-2.3) mg/dL Total Bilirubin (0.2-1.3) mg/dL AST (14-36) U/L ALT (9-52) U/L Alkaline Phosphatase (38-126) U/L Total Protein (6.3-8.3) g/dL Albumin (3.5-5.0) g/dL Globulin (2.2-3.9) gm/dL Albumin/Globulin Ratio (1.0-2.1) TSH 3rd Generation (0.46-4.68) mIU/L Random Vancomycin ug/mL Blood Type A POSITIVE Antibody Screen Negative Laboratory Results - last 24 hr 05/08/18 05/09/18 05/09/18 10:06 17:11 17:11 WBC RBC Hgb Hct MCV MCH MCHC RDW Plt Count MPV Neut % (Auto) Lymph % (Auto) [place] % (Auto) Eos % (Auto) Baso % (Auto) Neut # (Auto) Lymph # (Auto) [place] # (Auto) Eos # (Auto) Baso # (Auto) Neutrophils % (Manual) Band Neutrophils % Lymphocytes % (Manual) Monocytes % (Manual) Metamyelocytes % Nucleated RBC % Toxic Granulation Platelet Estimate Polychromasia Hypochromasia (manual) Anisocytosis (manual) Fibrinogen 218 Puncture Site pCO2 pO2 HCO3 ABG pH ABG Total CO2 ABG O2 Saturation ABG Base Excess ABG Hemoglobin ABG Carboxyhemoglobin POC ABG HHb (Measured) ABG Methemoglobin Scout Test A-a O2 Difference Respiratory Index Hgb O2 Saturation Vent Mode Mechanical Rate FiO2 Tidal Volume PEEP Crit Value Called To Crit Value Called By Crit Value Read Back Blood Gas Notified Time Sodium Potassium Chloride Carbon Dioxide Anion Gap BUN Creatinine Est GFR ( Amer) Est GFR (Non-Af Amer) POC Glucose (mg/dL) Random Glucose Hemoglobin A1c Lactic Acid 2.6 H Calcium Phosphorus Magnesium Total Bilirubin AST ALT Alkaline Phosphatase Total Protein Albumin Globulin Albumin/Globulin Ratio TSH 3rd Generation Random Vancomycin Blood Type A POSITIVE Antibody Screen Negative 05/09/18 05/09/18 05/09/18 17:15 18:02 19:12 WBC RBC Hgb Hct MCV MCH MCHC RDW Plt Count MPV Neut % (Auto) Lymph % (Auto) [place] % (Auto) Eos % (Auto) Baso % (Auto) Neut # (Auto) Lymph # (Auto) [place] # (Auto) Eos # (Auto) Baso # (Auto) Neutrophils % (Manual) Band Neutrophils % Lymphocytes % (Manual) Monocytes % (Manual) Metamyelocytes % Nucleated RBC % Toxic Granulation Platelet Estimate Polychromasia Hypochromasia (manual) Anisocytosis (manual) Fibrinogen Puncture Site pCO2 pO2 HCO3 ABG pH ABG Total CO2 ABG O2 Saturation ABG Base Excess ABG Hemoglobin ABG Carboxyhemoglobin POC ABG HHb (Measured) ABG Methemoglobin Scout Test A-a O2 Difference Respiratory Index Hgb O2 Saturation Vent Mode Mechanical Rate FiO2 Tidal Volume PEEP Crit Value Called To Crit Value Called By Crit Value Read Back Blood Gas Notified Time Sodium Potassium Chloride Carbon Dioxide Anion Gap BUN Creatinine Est GFR ( Amer) Est GFR (Non-Af Amer) POC Glucose (mg/dL) 174 H 155 H 151 H Random Glucose Hemoglobin A1c Lactic Acid Calcium Phosphorus Magnesium Total Bilirubin AST ALT Alkaline Phosphatase Total Protein Albumin Globulin Albumin/Globulin Ratio TSH 3rd Generation Random Vancomycin Blood Type Antibody Screen 05/09/18 05/09/18 05/09/18 20:19 21:15 21:16 WBC RBC Hgb Hct MCV MCH MCHC RDW Plt Count MPV Neut % (Auto) Lymph % (Auto) [place] % (Auto) Eos % (Auto) Baso % (Auto) Neut # (Auto) Lymph # (Auto) [place] # (Auto) Eos # (Auto) Baso # (Auto) Neutrophils % (Manual) Band Neutrophils % Lymphocytes % (Manual) Monocytes % (Manual) Metamyelocytes % Nucleated RBC % Toxic Granulation Platelet Estimate Polychromasia Hypochromasia (manual) Anisocytosis (manual) Fibrinogen Puncture Site pCO2 pO2 HCO3 ABG pH ABG Total CO2 ABG O2 Saturation ABG Base Excess ABG Hemoglobin ABG Carboxyhemoglobin POC ABG HHb (Measured) ABG Methemoglobin Scout Test A-a O2 Difference Respiratory Index Hgb O2 Saturation Vent Mode Mechanical Rate FiO2 Tidal Volume PEEP Crit Value Called To Crit Value Called By Crit Value Read Back Blood Gas Notified Time Sodium Potassium Chloride Carbon Dioxide Anion Gap BUN Creatinine Est GFR ( Amer) Est GFR (Non-Af Amer) POC Glucose (mg/dL) 144 H 159 H Random Glucose Hemoglobin A1c Lactic Acid 1.9 Calcium Phosphorus Magnesium Total Bilirubin AST ALT Alkaline Phosphatase Total Protein Albumin Globulin Albumin/Globulin Ratio TSH 3rd Generation Random Vancomycin Blood Type Antibody Screen 05/09/18 05/09/18 05/09/18 21:16 22:16 23:06 WBC 18.0 H RBC 4.47 Hgb 13.0 D Hct 38.2 MCV 85.5 D MCH 29.2 MCHC 34.1 RDW 17.1 H Plt Count 118 L D MPV 7.9 Neut % (Auto) 77.9 H Lymph % (Auto) 16.7 L [place] % (Auto) 5.0 Eos % (Auto) 0.1 Baso % (Auto) 0.3 Neut # (Auto) 14.1 H Lymph # (Auto) 3.0 [place] # (Auto) 0.9 H Eos # (Auto) 0.0 Baso # (Auto) 0.1 Neutrophils % (Manual) 62 Band Neutrophils % 20 H* Lymphocytes % (Manual) 14 L Monocytes % (Manual) 4 Metamyelocytes % Nucleated RBC % 3 H Toxic Granulation Platelet Estimate Slightly decreased L Polychromasia Hypochromasia (manual) Anisocytosis (manual) Fibrinogen Puncture Site pCO2 pO2 HCO3 ABG pH ABG Total CO2 ABG O2 Saturation ABG Base Excess ABG Hemoglobin ABG Carboxyhemoglobin POC ABG HHb (Measured) ABG Methemoglobin Scout Test A-a O2 Difference Respiratory Index Hgb O2 Saturation Vent Mode Mechanical Rate FiO2 Tidal Volume PEEP Crit Value Called To Crit Value Called By Crit Value Read Back Blood Gas Notified Time Sodium Potassium Chloride Carbon Dioxide Anion Gap BUN Creatinine Est GFR ( Amer) Est GFR (Non-Af Amer) POC Glucose (mg/dL) 152 H 152 H Random Glucose Hemoglobin A1c Lactic Acid Calcium Phosphorus Magnesium Total Bilirubin AST ALT Alkaline Phosphatase Total Protein Albumin Globulin Albumin/Globulin Ratio TSH 3rd Generation Random Vancomycin Blood Type Antibody Screen 05/09/18 05/10/18 05/10/18 23:57 00:57 02:02 WBC RBC Hgb Hct MCV MCH MCHC RDW Plt Count MPV Neut % (Auto) Lymph % (Auto) [place] % (Auto) Eos % (Auto) Baso % (Auto) Neut # (Auto) Lymph # (Auto) [place] # (Auto) Eos # (Auto) Baso # (Auto) Neutrophils % (Manual) Band Neutrophils % Lymphocytes % (Manual) Monocytes % (Manual) Metamyelocytes % Nucleated RBC % Toxic Granulation Platelet Estimate Polychromasia Hypochromasia (manual) Anisocytosis (manual) Fibrinogen Puncture Site pCO2 pO2 HCO3 ABG pH ABG Total CO2 ABG O2 Saturation ABG Base Excess ABG Hemoglobin ABG Carboxyhemoglobin POC ABG HHb (Measured) ABG Methemoglobin Scout Test A-a O2 Difference Respiratory Index Hgb O2 Saturation Vent Mode Mechanical Rate FiO2 Tidal Volume PEEP Crit Value Called To Crit Value Called By Crit Value Read Back Blood Gas Notified Time Sodium Potassium Chloride Carbon Dioxide Anion Gap BUN Creatinine Est GFR ( Amer) Est GFR (Non-Af Amer) POC Glucose (mg/dL) 120 H 128 H 142 H Random Glucose Hemoglobin A1c Lactic Acid Calcium Phosphorus Magnesium Total Bilirubin AST ALT Alkaline Phosphatase Total Protein Albumin Globulin Albumin/Globulin Ratio TSH 3rd Generation Random Vancomycin Blood Type Antibody Screen 05/10/18 05/10/18 05/10/18 03:08 04:09 04:40 WBC RBC Hgb Hct MCV MCH MCHC RDW Plt Count MPV Neut % (Auto) Lymph % (Auto) [place] % (Auto) Eos % (Auto) Baso % (Auto) Neut # (Auto) Lymph # (Auto) [place] # (Auto) Eos # (Auto) Baso # (Auto) Neutrophils % (Manual) Band Neutrophils % Lymphocytes % (Manual) Monocytes % (Manual) Metamyelocytes % Nucleated RBC % Toxic Granulation Platelet Estimate Polychromasia Hypochromasia (manual) Anisocytosis (manual) Fibrinogen Puncture Site Rb pCO2 16 L* pO2 232 H HCO3 22.0 ABG pH 7.59 H ABG Total CO2 15.9 L ABG O2 Saturation 99.3 H ABG Base Excess -3.7 L ABG Hemoglobin 12.7 ABG Carboxyhemoglobin 1.0 POC ABG HHb (Measured) 0.7 ABG Methemoglobin 1.2 Scout Test Ma A-a O2 Difference 176.0 Respiratory Index 0.8 Hgb O2 Saturation 97.1 Vent Mode Prvc Mechanical Rate 20 FiO2 60.0 Tidal Volume 450 PEEP 5 Crit Value Called To Murali garcia/rn Crit Value Called By Martin [email or web address] Crit Value Read Back Y Blood Gas Notified Time 445 Sodium Potassium Chloride Carbon Dioxide Anion Gap BUN Creatinine Est GFR ( Amer) Est GFR (Non-Af Amer) POC Glucose (mg/dL) 146 H 173 H Random Glucose Hemoglobin A1c Lactic Acid Calcium Phosphorus Magnesium Total Bilirubin AST ALT Alkaline Phosphatase Total Protein Albumin Globulin Albumin/Globulin Ratio TSH 3rd Generation Random Vancomycin Blood Type Antibody Screen 05/10/18 05/10/18 05/10/18 05:07 06:05 06:08 WBC 16.1 H RBC 4.44 Hgb 12.9 Hct 38.8 MCV 87.5 D MCH 29.1 MCHC 33.2 RDW 17.5 H Plt Count 129 L MPV 8.4 Neut % (Auto) 88.7 H Lymph % (Auto) 7.8 L [place] % (Auto) 3.3 Eos % (Auto) 0.0 Baso % (Auto) 0.2 Neut # (Auto) 14.2 H Lymph # (Auto) 1.2 [place] # (Auto) 0.5 Eos # (Auto) 0.0 Baso # (Auto) 0.0 Neutrophils % (Manual) 67 Band Neutrophils % 26 H* Lymphocytes % (Manual) 4 L Monocytes % (Manual) 2 Metamyelocytes % 1 H Nucleated RBC % 4 H Toxic Granulation Present Platelet Estimate Normal Polychromasia Slight Hypochromasia (manual) Slight Anisocytosis (manual) Moderate Fibrinogen Puncture Site pCO2 pO2 HCO3 ABG pH ABG Total CO2 ABG O2 Saturation ABG Base Excess ABG Hemoglobin ABG Carboxyhemoglobin POC ABG HHb (Measured) ABG Methemoglobin Scout Test A-a O2 Difference Respiratory Index Hgb O2 Saturation Vent Mode Mechanical Rate FiO2 Tidal Volume PEEP Crit Value Called To Crit Value Called By Crit Value Read Back Blood Gas Notified Time Sodium Potassium Chloride Carbon Dioxide Anion Gap BUN Creatinine Est GFR ( Amer) Est GFR (Non-Af Amer) POC Glucose (mg/dL) 170 H 139 H Random Glucose Hemoglobin A1c Lactic Acid Calcium Phosphorus Magnesium Total Bilirubin AST ALT Alkaline Phosphatase Total Protein Albumin Globulin Albumin/Globulin Ratio TSH 3rd Generation Random Vancomycin Blood Type Antibody Screen 05/10/18 05/10/18 05/10/18 06:08 06:08 06:08 WBC RBC Hgb Hct MCV MCH MCHC RDW Plt Count MPV Neut % (Auto) Lymph % (Auto) [place] % (Auto) Eos % (Auto) Baso % (Auto) Neut # (Auto) Lymph # (Auto) [place] # (Auto) Eos # (Auto) Baso # (Auto) Neutrophils % (Manual) Band Neutrophils % Lymphocytes % (Manual) Monocytes % (Manual) Metamyelocytes % Nucleated RBC % Toxic Granulation Platelet Estimate Polychromasia Hypochromasia (manual) Anisocytosis (manual) Fibrinogen Puncture Site pCO2 pO2 HCO3 ABG pH ABG Total CO2 ABG O2 Saturation ABG Base Excess ABG Hemoglobin ABG Carboxyhemoglobin POC ABG HHb (Measured) ABG Methemoglobin Scout Test A-a O2 Difference Respiratory Index Hgb O2 Saturation Vent Mode Mechanical Rate FiO2 Tidal Volume PEEP Crit Value Called To Crit Value Called By Crit Value Read Back Blood Gas Notified Time Sodium 162 H* Potassium 2.6 L Chloride 129 H Carbon Dioxide 21 L Anion Gap 14 BUN 53 H Creatinine 1.2 Est GFR ( Amer) 52 Est GFR (Non-Af Amer) 43 POC Glucose (mg/dL) Random Glucose 167 H Hemoglobin A1c 6.5 D Lactic Acid Calcium 8.9 Phosphorus 2.4 L Magnesium 2.1 Total Bilirubin 0.8 AST 1929 H ALT 1271 H Alkaline Phosphatase 71 Total Protein 5.0 L Albumin 2.7 L Globulin 2.4 Albumin/Globulin Ratio 1.1 TSH 3rd Generation 0.29 L Random Vancomycin 15.9 Blood Type Antibody Screen 05/10/18 05/10/18 05/10/18 06:56 07:17 08:07 WBC RBC Hgb Hct MCV MCH MCHC RDW Plt Count MPV Neut % (Auto) Lymph % (Auto) [place] % (Auto) Eos % (Auto) Baso % (Auto) Neut # (Auto) Lymph # (Auto) [place] # (Auto) Eos # (Auto) Baso # (Auto) Neutrophils % (Manual) Band Neutrophils % Lymphocytes % (Manual) Monocytes % (Manual) Metamyelocytes % Nucleated RBC % Toxic Granulation Platelet Estimate Polychromasia Hypochromasia (manual) Anisocytosis (manual) Fibrinogen Puncture Site pCO2 pO2 HCO3 ABG pH ABG Total CO2 ABG O2 Saturation ABG Base Excess ABG Hemoglobin ABG Carboxyhemoglobin POC ABG HHb (Measured) ABG Methemoglobin Scout Test A-a O2 Difference Respiratory Index Hgb O2 Saturation Vent Mode Mechanical Rate FiO2 Tidal Volume PEEP Crit Value Called To Crit Value Called By Crit Value Read Back Blood Gas Notified Time Sodium Potassium Chloride Carbon Dioxide Anion Gap BUN Creatinine Est GFR ( Amer) Est GFR (Non-Af Amer) POC Glucose (mg/dL) 138 H 132 H 140 H Random Glucose Hemoglobin A1c Lactic Acid Calcium Phosphorus Magnesium Total Bilirubin AST ALT Alkaline Phosphatase Total Protein Albumin Globulin Albumin/Globulin Ratio TSH 3rd Generation Random Vancomycin Blood Type Antibody Screen 05/10/18 05/10/18 11:55 15:42 WBC RBC Hgb Hct MCV MCH MCHC RDW Plt Count MPV Neut % (Auto) Lymph % (Auto) [place] % (Auto) Eos % (Auto) Baso % (Auto) Neut # (Auto) Lymph # (Auto) [place] # (Auto) Eos # (Auto) Baso # (Auto) Neutrophils % (Manual) Band Neutrophils % Lymphocytes % (Manual) Monocytes % (Manual) Metamyelocytes % Nucleated RBC % Toxic Granulation Platelet Estimate Polychromasia Hypochromasia (manual) Anisocytosis (manual) Fibrinogen Puncture Site pCO2 pO2 HCO3 ABG pH ABG Total CO2 ABG O2 Saturation ABG Base Excess ABG Hemoglobin ABG Carboxyhemoglobin POC ABG HHb (Measured) ABG Methemoglobin Scout Test A-a O2 Difference Respiratory Index Hgb O2 Saturation Vent Mode Mechanical Rate FiO2 Tidal Volume PEEP Crit Value Called To Crit Value Called By Crit Value Read Back Blood Gas Notified Time Sodium Potassium Chloride Carbon Dioxide Anion Gap BUN Creatinine Est GFR ( Amer) Est GFR (Non-Af Amer) POC Glucose (mg/dL) 173 H 153 H Random Glucose Hemoglobin A1c Lactic Acid Calcium Phosphorus Magnesium Total Bilirubin AST ALT Alkaline Phosphatase Total Protein Albumin Globulin Albumin/Globulin Ratio TSH 3rd Generation Random Vancomycin Blood Type Antibody Screen Fingerstick Blood Sugar Results: 153 Review of Systems - Review of Systems Systems not reviewed;Unavailable: Intubated Critical Care Progress Note - Nutrition Nutrition: Nutrition Category Date Time Status NPO Diet [DIET] Diets 05/09/18 Breakfast Active Assessment/Plan - Assessment and Plan (Free Text) Assessment: Patient is an 87 year old female with past medical history HTN, CHF, CAD, COPD, T2DM, tracheostomy following aspiration pneumonitis, presenting with altered mental status and found to be septic and hyperglycemic. Intubated 05/09. Plan: Neuro: Anoxic brain injury - CT head when stable - EEG and Neuro eval when stable - intubated, unresponsive Cardio: - likely hypovolemic shock - fluid resucitation to keep CVP between 8-12 - off pressors Risk of CAD/ Type 2 MA - trops elevate .34, follow serial - f/u EKG and Echo - not a candidate for anticoag - achieve Hg >10 Pulm: Hypoxic respiratory failure - keep SpO2>92% - s/p intubation GI: Acute blood loss anemia - Hgb stable - PTX drip @ 8 w/ bolus of 80mg - Dr Dye recommending CT angio to localize bleed for embolization - Dr Black consulted. Appreciate recs. - transaminitis likely due to shock liver - monitor LFTs, avoid hepatotoxic drugs Endo: Metabolic Acidosis - likely due to DKA - insulin drip discontinued - Hgba1c 6.5, TSH 0.29 (low) Renal: Acute Renal Failure - minimal urine output today - monitor to keep at 0.5ml/kg/hr ID: Septic shock - Febrile, tachycardic, and tachypneic in ED - Given 2 gm aztreonam and Flagy/ 500 q 8 adding Vanco for gram pos - check CDiff is diarrhea PPX: SCDs, Protonix Case discussed and reviewed with Dr. Shukri Moser PGY-1 - Date & Time Date: 05/10/18 Time: 08:00 <Christopher Watt - Last Filed: 05/10/18 18:15> CCU Objective - Vital Signs / Intake & Output Vital Signs (Last 4 hours): Vital Signs Temp Pulse Resp BP Pulse Ox 05/10/18 17:49 99/40 L 05/10/18 17:48 99 H 16 100 05/10/18 17:00 121 H 16 100 05/10/18 16:52 112 H 16 175/66 H 100 05/10/18 16:48 118 H 19 100 05/10/18 16:27 119 H 21 100 05/10/18 16:23 121 H 20 186/92 H 100 05/10/18 16:22 120 H 16 100 05/10/18 16:01 119 H 16 185/89 H 100 05/10/18 16:00 97.9 F 119 H 23 99 05/10/18 15:58 115 H 16 99 05/10/18 15:56 118 H 20 99 05/10/18 15:55 118 H 17 99 05/10/18 15:49 115 H 16 188/96 H 99 05/10/18 15:00 97 H 16 100 05/10/18 14:49 102 H 16 121/53 L 100 Intake and Output (Last 8hrs): Intake & Output 05/10/18 05/10/18 05/10/18 06:59 14:59 22:59 Intake Total 304 872 280 Output Total 1 1 350 Balance 303 871 -70 Weight 100 lb Intake: IV 6 Intake, IV Amount 298 872 280 Right Distal Port 90 70 30 Internal Jugular Right Proximal Port Int 8 252 Jug Y SITE Right Proximal Port 550 250 Internal Jugular Right medial Port Y site 200 Output: Urine 350 Urine, Voided 350 Stool 1 Urine/Stool Mix 1 Emesis 0 0 Oral Regurgitation 0 Other: # Voids Urine, Voided 0 0 # Bowel Movements 0 0 - Medications Active Medications: Active Medications Generic Name Dose Route Start Last Admin Trade Name Freq PRN Reason Stop Dose Admin Albuterol/Ipratropium 3 ml 05/07/18 21:18 Duoneb 3 Mg/0.5 Mg (3 Ml) Ud INH RQ6 PRN Cough Dextrose 0 ml 05/07/18 11:11 Dextrose 50% Inj IV STAT PRN Hypoglycemia Protocol Protocol Dextrose 0 gm 05/07/18 11:11 Glutose 15 PO ONCE PRN Hypoglycemia Protocol Protocol Glucagon 0 mg 05/07/18 11:11 Glucagen Diagnostic Kit IM STAT PRN Hypoglycemia Protocol Protocol Dextrose 1,000 mls @ 0 mls/hr 05/07/18 11:11 Dextrose 5% In Water 1000 Ml IV .Q0M PRN Hypoglycemia Protocol Protocol Per Protocol Norepinephrine Bitartrate 4 mg 250 mls @ 37.5 mls/hr 05/09/18 06:44 05/09/18 19:00 / Sodium Chloride IV 0 mcg/min .Q6H40M PRN 0 mls/hr TITRATE PER MD ORDER Titration Protocol 10 MCG/MIN Pantoprazole Sodium 80 mg/ 100 mls @ 10 mls/hr 05/09/18 08:30 05/10/18 14:19 Sodium Chloride IVPB 10 mls/hr .Q10H JUDY Administration 8 MG/HR Metronidazole 500 mg in 100 mls @ 100 mls/hr 05/09/18 14:00 05/10/18 14:20 Flagyl IVPB 100 mls/hr Q8H JUDY Administration Protocol Ciprofloxacin 100 mls @ 67 mls/hr 05/09/18 17:00 05/10/18 16:15 Cipro 200mg/100ml D5w IVPB 67 mls/hr Q12H JUDY Administration Protocol Sodium Chloride 1,000 mls @ 75 mls/hr 05/10/18 06:45 05/10/18 06:50 Sodium Chloride 0.45% IV 75 mls/hr .[id number] JUDY Administration Insulin Aspart 0 unit 05/10/18 08:15 05/10/18 16:15 Novolog SC 2 u Q4 JUDY Administration Protocol Neomycin/Polymyxin/Bacitracin 0 gm 05/10/18 10:00 05/10/18 17:51 Neosporin Triple Antibiotic Oint TOP 1 applic BID JUDY Administration Nystatin 1 applic 05/09/18 18:00 05/10/18 17:51 Nystop Topical Powder TOP 1 applic BID JUDY Administration Rosuvastatin Calcium 10 mg 05/07/18 22:00 05/09/18 21:25 Crestor PO Not Given HS JUDY Verapamil HCl 2.5 mg 05/09/18 17:48 Verapamil Inj IVP Q4 PRN Heart rate - Patient Studies Lab Studies: Microbiology Studies 05/07/18 17:55 Blood Culture - Preliminary Blood NO GROWTH AFTER 3 DAYS 05/07/18 09:01 Blood Culture - Preliminary Blood NO GROWTH AFTER 3 DAYS Lab Studies 05/10/18 05/10/18 05/10/18 Range/Units 15:42 11:55 08:07 WBC (4.8-10.8) K/uL RBC (3.80-5.20) Mil/uL Hgb (11.0-16.0) g/dL Hct (34.0-47.0) % MCV (81.0-99.0) fL MCH (27.0-31.0) pg MCHC (33.0-37.0) g/dL RDW (11.5-14.5) % Plt Count (130-400) K/uL MPV (7.2-11.7) fL Neut % (Auto) (50.0-75.0) % Lymph % (Auto) (20.0-40.0) % [place] % (Auto) (0.0-10.0) % Eos % (Auto) (0.0-4.0) % Baso % (Auto) (0.0-2.0) % Neut # (Auto) (1.8-7.0) K/uL Lymph # (Auto) (1.0-4.3) K/uL [place] # (Auto) (0.0-0.8) K/uL Eos # (Auto) (0.0-0.7) K/uL Baso # (Auto) (0.0-0.2) K/uL Neutrophils % (Manual) (50-75) % Band Neutrophils % (0-2) % Lymphocytes % (Manual) (20-40) % Monocytes % (Manual) (0-10) % Metamyelocytes % (0-0) % Nucleated RBC % (0-0) % Toxic Granulation Platelet Estimate (NORMAL) Polychromasia Hypochromasia (manual) Anisocytosis (manual) Puncture Site pCO2 (35-45) mm/Hg pO2 (80-100) mm/Hg HCO3 (21-28) mmol/L ABG pH (7.35-7.45) ABG Total CO2 (22-28) mmol/L ABG O2 Saturation (95-98) % ABG Base Excess (-2.0-3.0) mmol/L ABG Hemoglobin (11.7-17.4) g/dL ABG Carboxyhemoglobin (0.5-1.5) % POC ABG HHb (Measured) (0.0-5.0) % ABG Methemoglobin (0.0-3.0) % Scout Test A-a O2 Difference mm/Hg Respiratory Index Hgb O2 Saturation (95.0-98.0) % Vent Mode Mechanical Rate FiO2 % Tidal Volume PEEP Crit Value Called To Crit Value Called By Crit Value Read Back Blood Gas Notified Time Sodium (132-148) mmol/L Potassium (3.6-5.2) mmol/L Chloride (98-107) mmol/L Carbon Dioxide (22-30) mmol/L Anion Gap (10-20) BUN (7-17) mg/dL Creatinine (0.7-1.2) mg/dL Est GFR ( Amer) Est GFR (Non-Af Amer) POC Glucose (mg/dL) 153 H 173 H 140 H (65-110) mg/dL Random Glucose (65-105) mg/dL Hemoglobin A1c (4.2-6.5) % Lactic Acid (0.7-2.1) mmol/L Calcium (8.6-10.4) mg/dl Phosphorus (2.5-4.5) mg/dL Magnesium (1.6-2.3) mg/dL Total Bilirubin (0.2-1.3) mg/dL AST (14-36) U/L ALT (9-52) U/L Alkaline Phosphatase (38-126) U/L Total Protein (6.3-8.3) g/dL Albumin (3.5-5.0) g/dL Globulin (2.2-3.9) gm/dL Albumin/Globulin Ratio (1.0-2.1) TSH 3rd Generation (0.46-4.68) mIU/L Random Vancomycin ug/mL 05/10/18 05/10/18 05/10/18 Range/Units 07:17 06:56 06:08 WBC (4.8-10.8) K/uL RBC (3.80-5.20) Mil/uL Hgb (11.0-16.0) g/dL Hct (34.0-47.0) % MCV (81.0-99.0) fL MCH (27.0-31.0) pg MCHC (33.0-37.0) g/dL RDW (11.5-14.5) % Plt Count (130-400) K/uL MPV (7.2-11.7) fL Neut % (Auto) (50.0-75.0) % Lymph % (Auto) (20.0-40.0) % [place] % (Auto) (0.0-10.0) % Eos % (Auto) (0.0-4.0) % Baso % (Auto) (0.0-2.0) % Neut # (Auto) (1.8-7.0) K/uL Lymph # (Auto) (1.0-4.3) K/uL [place] # (Auto) (0.0-0.8) K/uL Eos # (Auto) (0.0-0.7) K/uL Baso # (Auto) (0.0-0.2) K/uL Neutrophils % (Manual) (50-75) % Band Neutrophils % (0-2) % Lymphocytes % (Manual) (20-40) % Monocytes % (Manual) (0-10) % Metamyelocytes % (0-0) % Nucleated RBC % (0-0) % Toxic Granulation Platelet Estimate (NORMAL) Polychromasia Hypochromasia (manual) Anisocytosis (manual) Puncture Site pCO2 (35-45) mm/Hg pO2 (80-100) mm/Hg HCO3 (21-28) mmol/L ABG pH (7.35-7.45) ABG Total CO2 (22-28) mmol/L ABG O2 Saturation (95-98) % ABG Base Excess (-2.0-3.0) mmol/L ABG Hemoglobin (11.7-17.4) g/dL ABG Carboxyhemoglobin (0.5-1.5) % POC ABG HHb (Measured) (0.0-5.0) % ABG Methemoglobin (0.0-3.0) % Scout Test A-a O2 Difference mm/Hg Respiratory Index Hgb O2 Saturation (95.0-98.0) % Vent Mode Mechanical Rate FiO2 % Tidal Volume PEEP Crit Value Called To Crit Value Called By Crit Value Read Back Blood Gas Notified Time Sodium (132-148) mmol/L Potassium (3.6-5.2) mmol/L Chloride (98-107) mmol/L Carbon Dioxide (22-30) mmol/L Anion Gap (10-20) BUN (7-17) mg/dL Creatinine (0.7-1.2) mg/dL Est GFR ( Amer) Est GFR (Non-Af Amer) POC Glucose (mg/dL) 132 H 138 H (65-110) mg/dL Random Glucose (65-105) mg/dL Hemoglobin A1c (4.2-6.5) % Lactic Acid (0.7-2.1) mmol/L Calcium (8.6-10.4) mg/dl Phosphorus (2.5-4.5) mg/dL Magnesium (1.6-2.3) mg/dL Total Bilirubin (0.2-1.3) mg/dL AST (14-36) U/L ALT (9-52) U/L Alkaline Phosphatase (38-126) U/L Total Protein (6.3-8.3) g/dL Albumin (3.5-5.0) g/dL Globulin (2.2-3.9) gm/dL Albumin/Globulin Ratio (1.0-2.1) TSH 3rd Generation (0.46-4.68) mIU/L Random Vancomycin 15.9 ug/mL 05/10/18 05/10/18 05/10/18 Range/Units 06:08 06:08 06:08 WBC 16.1 H (4.8-10.8) K/uL RBC 4.44 (3.80-5.20) Mil/uL Hgb 12.9 (11.0-16.0) g/dL Hct 38.8 (34.0-47.0) % MCV 87.5 D (81.0-99.0) fL MCH 29.1 (27.0-31.0) pg MCHC 33.2 (33.0-37.0) g/dL RDW 17.5 H (11.5-14.5) % Plt Count 129 L (130-400) K/uL MPV 8.4 (7.2-11.7) fL Neut % (Auto) 88.7 H (50.0-75.0) % Lymph % (Auto) 7.8 L (20.0-40.0) % [place] % (Auto) 3.3 (0.0-10.0) % Eos % (Auto) 0.0 (0.0-4.0) % Baso % (Auto) 0.2 (0.0-2.0) % Neut # (Auto) 14.2 H (1.8-7.0) K/uL Lymph # (Auto) 1.2 (1.0-4.3) K/uL [place] # (Auto) 0.5 (0.0-0.8) K/uL Eos # (Auto) 0.0 (0.0-0.7) K/uL Baso # (Auto) 0.0 (0.0-0.2) K/uL Neutrophils % (Manual) 67 (50-75) % Band Neutrophils % 26 H* (0-2) % Lymphocytes % (Manual) 4 L (20-40) % Monocytes % (Manual) 2 (0-10) % Metamyelocytes % 1 H (0-0) % Nucleated RBC % 4 H (0-0) % Toxic Granulation Present Platelet Estimate Normal (NORMAL) Polychromasia Slight Hypochromasia (manual) Slight Anisocytosis (manual) Moderate Puncture Site pCO2 (35-45) mm/Hg pO2 (80-100) mm/Hg HCO3 (21-28) mmol/L ABG pH (7.35-7.45) ABG Total CO2 (22-28) mmol/L ABG O2 Saturation (95-98) % ABG Base Excess (-2.0-3.0) mmol/L ABG Hemoglobin (11.7-17.4) g/dL ABG Carboxyhemoglobin (0.5-1.5) % POC ABG HHb (Measured) (0.0-5.0) % ABG Methemoglobin (0.0-3.0) % Scout Test A-a O2 Difference mm/Hg Respiratory Index Hgb O2 Saturation (95.0-98.0) % Vent Mode Mechanical Rate FiO2 % Tidal Volume PEEP Crit Value Called To Crit Value Called By Crit Value Read Back Blood Gas Notified Time Sodium 162 H* (132-148) mmol/L Potassium 2.6 L (3.6-5.2) mmol/L Chloride 129 H (98-107) mmol/L Carbon Dioxide 21 L (22-30) mmol/L Anion Gap 14 (10-20) BUN 53 H (7-17) mg/dL Creatinine 1.2 (0.7-1.2) mg/dL Est GFR ( Amer) 52 Est GFR (Non-Af Amer) 43 POC Glucose (mg/dL) (65-110) mg/dL Random Glucose 167 H (65-105) mg/dL Hemoglobin A1c 6.5 D (4.2-6.5) % Lactic Acid (0.7-2.1) mmol/L Calcium 8.9 (8.6-10.4) mg/dl Phosphorus 2.4 L (2.5-4.5) mg/dL Magnesium 2.1 (1.6-2.3) mg/dL Total Bilirubin 0.8 (0.2-1.3) mg/dL AST 1929 H (14-36) U/L ALT 1271 H (9-52) U/L Alkaline Phosphatase 71 (38-126) U/L Total Protein 5.0 L (6.3-8.3) g/dL Albumin 2.7 L (3.5-5.0) g/dL Globulin 2.4 (2.2-3.9) gm/dL Albumin/Globulin Ratio 1.1 (1.0-2.1) TSH 3rd Generation 0.29 L (0.46-4.68) mIU/L Random Vancomycin ug/mL 05/10/18 05/10/18 05/10/18 Range/Units 06:05 05:07 04:40 WBC (4.8-10.8) K/uL RBC (3.80-5.20) Mil/uL Hgb (11.0-16.0) g/dL Hct (34.0-47.0) % MCV (81.0-99.0) fL MCH (27.0-31.0) pg MCHC (33.0-37.0) g/dL RDW (11.5-14.5) % Plt Count (130-400) K/uL MPV (7.2-11.7) fL Neut % (Auto) (50.0-75.0) % Lymph % (Auto) (20.0-40.0) % [place] % (Auto) (0.0-10.0) % Eos % (Auto) (0.0-4.0) % Baso % (Auto) (0.0-2.0) % Neut # (Auto) (1.8-7.0) K/uL Lymph # (Auto) (1.0-4.3) K/uL [place] # (Auto) (0.0-0.8) K/uL Eos # (Auto) (0.0-0.7) K/uL Baso # (Auto) (0.0-0.2) K/uL Neutrophils % (Manual) (50-75) % Band Neutrophils % (0-2) % Lymphocytes % (Manual) (20-40) % Monocytes % (Manual) (0-10) % Metamyelocytes % (0-0) % Nucleated RBC % (0-0) % Toxic Granulation Platelet Estimate (NORMAL) Polychromasia Hypochromasia (manual) Anisocytosis (manual) Puncture Site Rb pCO2 16 L* (35-45) mm/Hg pO2 232 H (80-100) mm/Hg HCO3 22.0 (21-28) mmol/L ABG pH 7.59 H (7.35-7.45) ABG Total CO2 15.9 L (22-28) mmol/L ABG O2 Saturation 99.3 H (95-98) % ABG Base Excess -3.7 L (-2.0-3.0) mmol/L ABG Hemoglobin 12.7 (11.7-17.4) g/dL ABG Carboxyhemoglobin 1.0 (0.5-1.5) % POC ABG HHb (Measured) 0.7 (0.0-5.0) % ABG Methemoglobin 1.2 (0.0-3.0) % Scout Test Ma A-a O2 Difference 176.0 mm/Hg Respiratory Index 0.8 Hgb O2 Saturation 97.1 (95.0-98.0) % Vent Mode Prvc Mechanical Rate 20 FiO2 60.0 % Tidal Volume 450 PEEP 5 Crit Value Called To Murali garcia/rn Crit Value Called By Martin rodriguez/rt Crit Value Read Back Y Blood Gas Notified Time 445 Sodium (132-148) mmol/L Potassium (3.6-5.2) mmol/L Chloride (98-107) mmol/L Carbon Dioxide (22-30) mmol/L Anion Gap (10-20) BUN (7-17) mg/dL Creatinine (0.7-1.2) mg/dL Est GFR ( Amer) Est GFR (Non-Af Amer) POC Glucose (mg/dL) 139 H 170 H (65-110) mg/dL Random Glucose (65-105) mg/dL Hemoglobin A1c (4.2-6.5) % Lactic Acid (0.7-2.1) mmol/L Calcium (8.6-10.4) mg/dl Phosphorus (2.5-4.5) mg/dL Magnesium (1.6-2.3) mg/dL Total Bilirubin (0.2-1.3) mg/dL AST (14-36) U/L ALT (9-52) U/L Alkaline Phosphatase (38-126) U/L Total Protein (6.3-8.3) g/dL Albumin (3.5-5.0) g/dL Globulin (2.2-3.9) gm/dL Albumin/Globulin Ratio (1.0-2.1) TSH 3rd Generation (0.46-4.68) mIU/L Random Vancomycin ug/mL 05/10/18 05/10/18 05/10/18 Range/Units 04:09 03:08 02:02 WBC (4.8-10.8) K/uL RBC (3.80-5.20) Mil/uL Hgb (11.0-16.0) g/dL Hct (34.0-47.0) % MCV (81.0-99.0) fL MCH (27.0-31.0) pg MCHC (33.0-37.0) g/dL RDW (11.5-14.5) % Plt Count (130-400) K/uL MPV (7.2-11.7) fL Neut % (Auto) (50.0-75.0) % Lymph % (Auto) (20.0-40.0) % [place] % (Auto) (0.0-10.0) % Eos % (Auto) (0.0-4.0) % Baso % (Auto) (0.0-2.0) % Neut # (Auto) (1.8-7.0) K/uL Lymph # (Auto) (1.0-4.3) K/uL [place] # (Auto) (0.0-0.8) K/uL Eos # (Auto) (0.0-0.7) K/uL Baso # (Auto) (0.0-0.2) K/uL Neutrophils % (Manual) (50-75) % Band Neutrophils % (0-2) % Lymphocytes % (Manual) (20-40) % Monocytes % (Manual) (0-10) % Metamyelocytes % (0-0) % Nucleated RBC % (0-0) % Toxic Granulation Platelet Estimate (NORMAL) Polychromasia Hypochromasia (manual) Anisocytosis (manual) Puncture Site pCO2 (35-45) mm/Hg pO2 (80-100) mm/Hg HCO3 (21-28) mmol/L ABG pH (7.35-7.45) ABG Total CO2 (22-28) mmol/L ABG O2 Saturation (95-98) % ABG Base Excess (-2.0-3.0) mmol/L ABG Hemoglobin (11.7-17.4) g/dL ABG Carboxyhemoglobin (0.5-1.5) % POC ABG HHb (Measured) (0.0-5.0) % ABG Methemoglobin (0.0-3.0) % Scout Test A-a O2 Difference mm/Hg Respiratory Index Hgb O2 Saturation (95.0-98.0) % Vent Mode Mechanical Rate FiO2 % Tidal Volume PEEP Crit Value Called To Crit Value Called By Crit Value Read Back Blood Gas Notified Time Sodium (132-148) mmol/L Potassium (3.6-5.2) mmol/L Chloride (98-107) mmol/L Carbon Dioxide (22-30) mmol/L Anion Gap (10-20) BUN (7-17) mg/dL Creatinine (0.7-1.2) mg/dL Est GFR ( Amer) Est GFR (Non-Af Amer) POC Glucose (mg/dL) 173 H 146 H 142 H (65-110) mg/dL Random Glucose (65-105) mg/dL Hemoglobin A1c (4.2-6.5) % Lactic Acid (0.7-2.1) mmol/L Calcium (8.6-10.4) mg/dl Phosphorus (2.5-4.5) mg/dL Magnesium (1.6-2.3) mg/dL Total Bilirubin (0.2-1.3) mg/dL AST (14-36) U/L ALT (9-52) U/L Alkaline Phosphatase (38-126) U/L Total Protein (6.3-8.3) g/dL Albumin (3.5-5.0) g/dL Globulin (2.2-3.9) gm/dL Albumin/Globulin Ratio (1.0-2.1) TSH 3rd Generation (0.46-4.68) mIU/L Random Vancomycin ug/mL 05/10/18 05/09/18 05/09/18 Range/Units 00:57 23:57 23:06 WBC (4.8-10.8) K/uL RBC (3.80-5.20) Mil/uL Hgb (11.0-16.0) g/dL Hct (34.0-47.0) % MCV (81.0-99.0) fL MCH (27.0-31.0) pg MCHC (33.0-37.0) g/dL RDW (11.5-14.5) % Plt Count (130-400) K/uL MPV (7.2-11.7) fL Neut % (Auto) (50.0-75.0) % Lymph % (Auto) (20.0-40.0) % [place] % (Auto) (0.0-10.0) % Eos % (Auto) (0.0-4.0) % Baso % (Auto) (0.0-2.0) % Neut # (Auto) (1.8-7.0) K/uL Lymph # (Auto) (1.0-4.3) K/uL [place] # (Auto) (0.0-0.8) K/uL Eos # (Auto) (0.0-0.7) K/uL Baso # (Auto) (0.0-0.2) K/uL Neutrophils % (Manual) (50-75) % Band Neutrophils % (0-2) % Lymphocytes % (Manual) (20-40) % Monocytes % (Manual) (0-10) % Metamyelocytes % (0-0) % Nucleated RBC % (0-0) % Toxic Granulation Platelet Estimate (NORMAL) Polychromasia Hypochromasia (manual) Anisocytosis (manual) Puncture Site pCO2 (35-45) mm/Hg pO2 (80-100) mm/Hg HCO3 (21-28) mmol/L ABG pH (7.35-7.45) ABG Total CO2 (22-28) mmol/L ABG O2 Saturation (95-98) % ABG Base Excess (-2.0-3.0) mmol/L ABG Hemoglobin (11.7-17.4) g/dL ABG Carboxyhemoglobin (0.5-1.5) % POC ABG HHb (Measured) (0.0-5.0) % ABG Methemoglobin (0.0-3.0) % Scout Test A-a O2 Difference mm/Hg Respiratory Index Hgb O2 Saturation (95.0-98.0) % Vent Mode Mechanical Rate FiO2 % Tidal Volume PEEP Crit Value Called To Crit Value Called By Crit Value Read Back Blood Gas Notified Time Sodium (132-148) mmol/L Potassium (3.6-5.2) mmol/L Chloride (98-107) mmol/L Carbon Dioxide (22-30) mmol/L Anion Gap (10-20) BUN (7-17) mg/dL Creatinine (0.7-1.2) mg/dL Est GFR ( Amer) Est GFR (Non-Af Amer) POC Glucose (mg/dL) 128 H 120 H 152 H (65-110) mg/dL Random Glucose (65-105) mg/dL Hemoglobin A1c (4.2-6.5) % Lactic Acid (0.7-2.1) mmol/L Calcium (8.6-10.4) mg/dl Phosphorus (2.5-4.5) mg/dL Magnesium (1.6-2.3) mg/dL Total Bilirubin (0.2-1.3) mg/dL AST (14-36) U/L ALT (9-52) U/L Alkaline Phosphatase (38-126) U/L Total Protein (6.3-8.3) g/dL Albumin (3.5-5.0) g/dL Globulin (2.2-3.9) gm/dL Albumin/Globulin Ratio (1.0-2.1) TSH 3rd Generation (0.46-4.68) mIU/L Random Vancomycin ug/mL 05/09/18 05/09/18 05/09/18 Range/Units 22:16 21:16 21:16 WBC 18.0 H (4.8-10.8) K/uL RBC 4.47 (3.80-5.20) Mil/uL Hgb 13.0 D (11.0-16.0) g/dL Hct 38.2 (34.0-47.0) % MCV 85.5 D (81.0-99.0) fL MCH 29.2 (27.0-31.0) pg MCHC 34.1 (33.0-37.0) g/dL RDW 17.1 H (11.5-14.5) % Plt Count 118 L D (130-400) K/uL MPV 7.9 (7.2-11.7) fL Neut % (Auto) 77.9 H (50.0-75.0) % Lymph % (Auto) 16.7 L (20.0-40.0) % [place] % (Auto) 5.0 (0.0-10.0) % Eos % (Auto) 0.1 (0.0-4.0) % Baso % (Auto) 0.3 (0.0-2.0) % Neut # (Auto) 14.1 H (1.8-7.0) K/uL Lymph # (Auto) 3.0 (1.0-4.3) K/uL [place] # (Auto) 0.9 H (0.0-0.8) K/uL Eos # (Auto) 0.0 (0.0-0.7) K/uL Baso # (Auto) 0.1 (0.0-0.2) K/uL Neutrophils % (Manual) 62 (50-75) % Band Neutrophils % 20 H* (0-2) % Lymphocytes % (Manual) 14 L (20-40) % Monocytes % (Manual) 4 (0-10) % Metamyelocytes % (0-0) % Nucleated RBC % 3 H (0-0) % Toxic Granulation Platelet Estimate Slightly decreased L (NORMAL) Polychromasia Hypochromasia (manual) Anisocytosis (manual) Puncture Site pCO2 (35-45) mm/Hg pO2 (80-100) mm/Hg HCO3 (21-28) mmol/L ABG pH (7.35-7.45) ABG Total CO2 (22-28) mmol/L ABG O2 Saturation (95-98) % ABG Base Excess (-2.0-3.0) mmol/L ABG Hemoglobin (11.7-17.4) g/dL ABG Carboxyhemoglobin (0.5-1.5) % POC ABG HHb (Measured) (0.0-5.0) % ABG Methemoglobin (0.0-3.0) % Scout Test A-a O2 Difference mm/Hg Respiratory Index Hgb O2 Saturation (95.0-98.0) % Vent Mode Mechanical Rate FiO2 % Tidal Volume PEEP Crit Value Called To Crit Value Called By Crit Value Read Back Blood Gas Notified Time Sodium (132-148) mmol/L Potassium (3.6-5.2) mmol/L Chloride (98-107) mmol/L Carbon Dioxide (22-30) mmol/L Anion Gap (10-20) BUN (7-17) mg/dL Creatinine (0.7-1.2) mg/dL Est GFR ( Amer) Est GFR (Non-Af Amer) POC Glucose (mg/dL) 152 H (65-110) mg/dL Random Glucose (65-105) mg/dL Hemoglobin A1c (4.2-6.5) % Lactic Acid 1.9 (0.7-2.1) mmol/L Calcium (8.6-10.4) mg/dl Phosphorus (2.5-4.5) mg/dL Magnesium (1.6-2.3) mg/dL Total Bilirubin (0.2-1.3) mg/dL AST (14-36) U/L ALT (9-52) U/L Alkaline Phosphatase (38-126) U/L Total Protein (6.3-8.3) g/dL Albumin (3.5-5.0) g/dL Globulin (2.2-3.9) gm/dL Albumin/Globulin Ratio (1.0-2.1) TSH 3rd Generation (0.46-4.68) mIU/L Random Vancomycin ug/mL 05/09/18 05/09/18 05/09/18 Range/Units 21:15 20:19 19:12 WBC (4.8-10.8) K/uL RBC (3.80-5.20) Mil/uL Hgb (11.0-16.0) g/dL Hct (34.0-47.0) % MCV (81.0-99.0) fL MCH (27.0-31.0) pg MCHC (33.0-37.0) g/dL RDW (11.5-14.5) % Plt Count (130-400) K/uL MPV (7.2-11.7) fL Neut % (Auto) (50.0-75.0) % Lymph % (Auto) (20.0-40.0) % [place] % (Auto) (0.0-10.0) % Eos % (Auto) (0.0-4.0) % Baso % (Auto) (0.0-2.0) % Neut # (Auto) (1.8-7.0) K/uL Lymph # (Auto) (1.0-4.3) K/uL [place] # (Auto) (0.0-0.8) K/uL Eos # (Auto) (0.0-0.7) K/uL Baso # (Auto) (0.0-0.2) K/uL Neutrophils % (Manual) (50-75) % Band Neutrophils % (0-2) % Lymphocytes % (Manual) (20-40) % Monocytes % (Manual) (0-10) % Metamyelocytes % (0-0) % Nucleated RBC % (0-0) % Toxic Granulation Platelet Estimate (NORMAL) Polychromasia Hypochromasia (manual) Anisocytosis (manual) Puncture Site pCO2 (35-45) mm/Hg pO2 (80-100) mm/Hg HCO3 (21-28) mmol/L ABG pH (7.35-7.45) ABG Total CO2 (22-28) mmol/L ABG O2 Saturation (95-98) % ABG Base Excess (-2.0-3.0) mmol/L ABG Hemoglobin (11.7-17.4) g/dL ABG Carboxyhemoglobin (0.5-1.5) % POC ABG HHb (Measured) (0.0-5.0) % ABG Methemoglobin (0.0-3.0) % Scout Test A-a O2 Difference mm/Hg Respiratory Index Hgb O2 Saturation (95.0-98.0) % Vent Mode Mechanical Rate FiO2 % Tidal Volume PEEP Crit Value Called To Crit Value Called By Crit Value Read Back Blood Gas Notified Time Sodium (132-148) mmol/L Potassium (3.6-5.2) mmol/L Chloride (98-107) mmol/L Carbon Dioxide (22-30) mmol/L Anion Gap (10-20) BUN (7-17) mg/dL Creatinine (0.7-1.2) mg/dL Est GFR ( Amer) Est GFR (Non-Af Amer) POC Glucose (mg/dL) 159 H 144 H 151 H (65-110) mg/dL Random Glucose (65-105) mg/dL Hemoglobin A1c (4.2-6.5) % Lactic Acid (0.7-2.1) mmol/L Calcium (8.6-10.4) mg/dl Phosphorus (2.5-4.5) mg/dL Magnesium (1.6-2.3) mg/dL Total Bilirubin (0.2-1.3) mg/dL AST (14-36) U/L ALT (9-52) U/L Alkaline Phosphatase (38-126) U/L Total Protein (6.3-8.3) g/dL Albumin (3.5-5.0) g/dL Globulin (2.2-3.9) gm/dL Albumin/Globulin Ratio (1.0-2.1) TSH 3rd Generation (0.46-4.68) mIU/L Random Vancomycin ug/mL Laboratory Results - last 24 hr 05/09/18 05/09/18 05/09/18 19:12 20:19 21:15 WBC RBC Hgb Hct MCV MCH MCHC RDW Plt Count MPV Neut % (Auto) Lymph % (Auto) [place] % (Auto) Eos % (Auto) Baso % (Auto) Neut # (Auto) Lymph # (Auto) [place] # (Auto) Eos # (Auto) Baso # (Auto) Neutrophils % (Manual) Band Neutrophils % Lymphocytes % (Manual) Monocytes % (Manual) Metamyelocytes % Nucleated RBC % Toxic Granulation Platelet Estimate Polychromasia Hypochromasia (manual) Anisocytosis (manual) Puncture Site pCO2 pO2 HCO3 ABG pH ABG Total CO2 ABG O2 Saturation ABG Base Excess ABG Hemoglobin ABG Carboxyhemoglobin POC ABG HHb (Measured) ABG Methemoglobin Scout Test A-a O2 Difference Respiratory Index Hgb O2 Saturation Vent Mode Mechanical Rate FiO2 Tidal Volume PEEP Crit Value Called To Crit Value Called By Crit Value Read Back Blood Gas Notified Time Sodium Potassium Chloride Carbon Dioxide Anion Gap BUN Creatinine Est GFR ( Amer) Est GFR (Non-Af Amer) POC Glucose (mg/dL) 151 H 144 H 159 H Random Glucose Hemoglobin A1c Lactic Acid Calcium Phosphorus Magnesium Total Bilirubin AST ALT Alkaline Phosphatase Total Protein Albumin Globulin Albumin/Globulin Ratio TSH 3rd Generation Random Vancomycin 05/09/18 05/09/18 05/09/18 21:16 21:16 22:16 WBC 18.0 H RBC 4.47 Hgb 13.0 D Hct 38.2 MCV 85.5 D MCH 29.2 MCHC 34.1 RDW 17.1 H Plt Count 118 L D MPV 7.9 Neut % (Auto) 77.9 H Lymph % (Auto) 16.7 L [place] % (Auto) 5.0 Eos % (Auto) 0.1 Baso % (Auto) 0.3 Neut # (Auto) 14.1 H Lymph # (Auto) 3.0 [place] # (Auto) 0.9 H Eos # (Auto) 0.0 Baso # (Auto) 0.1 Neutrophils % (Manual) 62 Band Neutrophils % 20 H* Lymphocytes % (Manual) 14 L Monocytes % (Manual) 4 Metamyelocytes % Nucleated RBC % 3 H Toxic Granulation Platelet Estimate Slightly decreased L Polychromasia Hypochromasia (manual) Anisocytosis (manual) Puncture Site pCO2 pO2 HCO3 ABG pH ABG Total CO2 ABG O2 Saturation ABG Base Excess ABG Hemoglobin ABG Carboxyhemoglobin POC ABG HHb (Measured) ABG Methemoglobin Scout Test A-a O2 Difference Respiratory Index Hgb O2 Saturation Vent Mode Mechanical Rate FiO2 Tidal Volume PEEP Crit Value Called To Crit Value Called By Crit Value Read Back Blood Gas Notified Time Sodium Potassium Chloride Carbon Dioxide Anion Gap BUN Creatinine Est GFR ( Amer) Est GFR (Non-Af Amer) POC Glucose (mg/dL) 152 H Random Glucose Hemoglobin A1c Lactic Acid 1.9 Calcium Phosphorus Magnesium Total Bilirubin AST ALT Alkaline Phosphatase Total Protein Albumin Globulin Albumin/Globulin Ratio TSH 3rd Generation Random Vancomycin 05/09/18 05/09/18 05/10/18 23:06 23:57 00:57 WBC RBC Hgb Hct MCV MCH MCHC RDW Plt Count MPV Neut % (Auto) Lymph % (Auto) [place] % (Auto) Eos % (Auto) Baso % (Auto) Neut # (Auto) Lymph # (Auto) [place] # (Auto) Eos # (Auto) Baso # (Auto) Neutrophils % (Manual) Band Neutrophils % Lymphocytes % (Manual) Monocytes % (Manual) Metamyelocytes % Nucleated RBC % Toxic Granulation Platelet Estimate Polychromasia Hypochromasia (manual) Anisocytosis (manual) Puncture Site pCO2 pO2 HCO3 ABG pH ABG Total CO2 ABG O2 Saturation ABG Base Excess ABG Hemoglobin ABG Carboxyhemoglobin POC ABG HHb (Measured) ABG Methemoglobin Scout Test A-a O2 Difference Respiratory Index Hgb O2 Saturation Vent Mode Mechanical Rate FiO2 Tidal Volume PEEP Crit Value Called To Crit Value Called By Crit Value Read Back Blood Gas Notified Time Sodium Potassium Chloride Carbon Dioxide Anion Gap BUN Creatinine Est GFR ( Amer) Est GFR (Non-Af Amer) POC Glucose (mg/dL) 152 H 120 H 128 H Random Glucose Hemoglobin A1c Lactic Acid Calcium Phosphorus Magnesium Total Bilirubin AST ALT Alkaline Phosphatase Total Protein Albumin Globulin Albumin/Globulin Ratio TSH 3rd Generation Random Vancomycin 05/10/18 05/10/18 05/10/18 02:02 03:08 04:09 WBC RBC Hgb Hct MCV MCH MCHC RDW Plt Count MPV Neut % (Auto) Lymph % (Auto) [place] % (Auto) Eos % (Auto) Baso % (Auto) Neut # (Auto) Lymph # (Auto) [place] # (Auto) Eos # (Auto) Baso # (Auto) Neutrophils % (Manual) Band Neutrophils % Lymphocytes % (Manual) Monocytes % (Manual) Metamyelocytes % Nucleated RBC % Toxic Granulation Platelet Estimate Polychromasia Hypochromasia (manual) Anisocytosis (manual) Puncture Site pCO2 pO2 HCO3 ABG pH ABG Total CO2 ABG O2 Saturation ABG Base Excess ABG Hemoglobin ABG Carboxyhemoglobin POC ABG HHb (Measured) ABG Methemoglobin Scout Test A-a O2 Difference Respiratory Index Hgb O2 Saturation Vent Mode Mechanical Rate FiO2 Tidal Volume PEEP Crit Value Called To Crit Value Called By Crit Value Read Back Blood Gas Notified Time Sodium Potassium Chloride Carbon Dioxide Anion Gap BUN Creatinine Est GFR ( Amer) Est GFR (Non-Af Amer) POC Glucose (mg/dL) 142 H 146 H 173 H Random Glucose Hemoglobin A1c Lactic Acid Calcium Phosphorus Magnesium Total Bilirubin AST ALT Alkaline Phosphatase Total Protein Albumin Globulin Albumin/Globulin Ratio TSH 3rd Generation Random Vancomycin 05/10/18 05/10/18 05/10/18 04:40 05:07 06:05 WBC RBC Hgb Hct MCV MCH MCHC RDW Plt Count MPV Neut % (Auto) Lymph % (Auto) [place] % (Auto) Eos % (Auto) Baso % (Auto) Neut # (Auto) Lymph # (Auto) [place] # (Auto) Eos # (Auto) Baso # (Auto) Neutrophils % (Manual) Band Neutrophils % Lymphocytes % (Manual) Monocytes % (Manual) Metamyelocytes % Nucleated RBC % Toxic Granulation Platelet Estimate Polychromasia Hypochromasia (manual) Anisocytosis (manual) Puncture Site Rb pCO2 16 L* pO2 232 H HCO3 22.0 ABG pH 7.59 H ABG Total CO2 15.9 L ABG O2 Saturation 99.3 H ABG Base Excess -3.7 L ABG Hemoglobin 12.7 ABG Carboxyhemoglobin 1.0 POC ABG HHb (Measured) 0.7 ABG Methemoglobin 1.2 Scout Test Ma A-a O2 Difference 176.0 Respiratory Index 0.8 Hgb O2 Saturation 97.1 Vent Mode Prvc Mechanical Rate 20 FiO2 60.0 Tidal Volume 450 PEEP 5 Crit Value Called To Murali garcia/rn Crit Value Called By Martin rodriguez/rt Crit Value Read Back Y Blood Gas Notified Time 445 Sodium Potassium Chloride Carbon Dioxide Anion Gap BUN Creatinine Est GFR ( Amer) Est GFR (Non-Af Amer) POC Glucose (mg/dL) 170 H 139 H Random Glucose Hemoglobin A1c Lactic Acid Calcium Phosphorus Magnesium Total Bilirubin AST ALT Alkaline Phosphatase Total Protein Albumin Globulin Albumin/Globulin Ratio TSH 3rd Generation Random Vancomycin 05/10/18 05/10/18 05/10/18 06:08 06:08 06:08 WBC 16.1 H RBC 4.44 Hgb 12.9 Hct 38.8 MCV 87.5 D MCH 29.1 MCHC 33.2 RDW 17.5 H Plt Count 129 L MPV 8.4 Neut % (Auto) 88.7 H Lymph % (Auto) 7.8 L [place] % (Auto) 3.3 Eos % (Auto) 0.0 Baso % (Auto) 0.2 Neut # (Auto) 14.2 H Lymph # (Auto) 1.2 [place] # (Auto) 0.5 Eos # (Auto) 0.0 Baso # (Auto) 0.0 Neutrophils % (Manual) 67 Band Neutrophils % 26 H* Lymphocytes % (Manual) 4 L Monocytes % (Manual) 2 Metamyelocytes % 1 H Nucleated RBC % 4 H Toxic Granulation Present Platelet Estimate Normal Polychromasia Slight Hypochromasia (manual) Slight Anisocytosis (manual) Moderate Puncture Site pCO2 pO2 HCO3 ABG pH ABG Total CO2 ABG O2 Saturation ABG Base Excess ABG Hemoglobin ABG Carboxyhemoglobin POC ABG HHb (Measured) ABG Methemoglobin Scout Test A-a O2 Difference Respiratory Index Hgb O2 Saturation Vent Mode Mechanical Rate FiO2 Tidal Volume PEEP Crit Value Called To Crit Value Called By Crit Value Read Back Blood Gas Notified Time Sodium 162 H* Potassium 2.6 L Chloride 129 H Carbon Dioxide 21 L Anion Gap 14 BUN 53 H Creatinine 1.2 Est GFR ( Amer) 52 Est GFR (Non-Af Amer) 43 POC Glucose (mg/dL) Random Glucose 167 H Hemoglobin A1c 6.5 D Lactic Acid Calcium 8.9 Phosphorus 2.4 L Magnesium 2.1 Total Bilirubin 0.8 AST 1929 H ALT 1271 H Alkaline Phosphatase 71 Total Protein 5.0 L Albumin 2.7 L Globulin 2.4 Albumin/Globulin Ratio 1.1 TSH 3rd Generation 0.29 L Random Vancomycin 05/10/18 05/10/18 05/10/18 06:08 06:56 07:17 WBC RBC Hgb Hct MCV MCH MCHC RDW Plt Count MPV Neut % (Auto) Lymph % (Auto) [place] % (Auto) Eos % (Auto) Baso % (Auto) Neut # (Auto) Lymph # (Auto) [place] # (Auto) Eos # (Auto) Baso # (Auto) Neutrophils % (Manual) Band Neutrophils % Lymphocytes % (Manual) Monocytes % (Manual) Metamyelocytes % Nucleated RBC % Toxic Granulation Platelet Estimate Polychromasia Hypochromasia (manual) Anisocytosis (manual) Puncture Site pCO2 pO2 HCO3 ABG pH ABG Total CO2 ABG O2 Saturation ABG Base Excess ABG Hemoglobin ABG Carboxyhemoglobin POC ABG HHb (Measured) ABG Methemoglobin Scout Test A-a O2 Difference Respiratory Index Hgb O2 Saturation Vent Mode Mechanical Rate FiO2 Tidal Volume PEEP Crit Value Called To Crit Value Called By Crit Value Read Back Blood Gas Notified Time Sodium Potassium Chloride Carbon Dioxide Anion Gap BUN Creatinine Est GFR ( Amer) Est GFR (Non-Af Amer) POC Glucose (mg/dL) 138 H 132 H Random Glucose Hemoglobin A1c Lactic Acid Calcium Phosphorus Magnesium Total Bilirubin AST ALT Alkaline Phosphatase Total Protein Albumin Globulin Albumin/Globulin Ratio TSH 3rd Generation Random Vancomycin 15.9 05/10/18 05/10/18 05/10/18 08:07 11:55 15:42 WBC RBC Hgb Hct MCV MCH MCHC RDW Plt Count MPV Neut % (Auto) Lymph % (Auto) [place] % (Auto) Eos % (Auto) Baso % (Auto) Neut # (Auto) Lymph # (Auto) [place] # (Auto) Eos # (Auto) Baso # (Auto) Neutrophils % (Manual) Band Neutrophils % Lymphocytes % (Manual) Monocytes % (Manual) Metamyelocytes % Nucleated RBC % Toxic Granulation Platelet Estimate Polychromasia Hypochromasia (manual) Anisocytosis (manual) Puncture Site pCO2 pO2 HCO3 ABG pH ABG Total CO2 ABG O2 Saturation ABG Base Excess ABG Hemoglobin ABG Carboxyhemoglobin POC ABG HHb (Measured) ABG Methemoglobin Scout Test A-a O2 Difference Respiratory Index Hgb O2 Saturation Vent Mode Mechanical Rate FiO2 Tidal Volume PEEP Crit Value Called To Crit Value Called By Crit Value Read Back Blood Gas Notified Time Sodium Potassium Chloride Carbon Dioxide Anion Gap BUN Creatinine Est GFR ( Amer) Est GFR (Non-Af Amer) POC Glucose (mg/dL) 140 H 173 H 153 H Random Glucose Hemoglobin A1c Lactic Acid Calcium Phosphorus Magnesium Total Bilirubin AST ALT Alkaline Phosphatase Total Protein Albumin Globulin Albumin/Globulin Ratio TSH 3rd Generation Random Vancomycin Critical Care Progress Note - Nutrition Nutrition: Nutrition Category Date Time Status NPO Diet [DIET] Diets 05/09/18 Breakfast Active Attending/Attestation - Attestation I have personally seen and examined this patient.: Yes I have fully participated in the care of the patient.: Yes I have reviewed all pertinent clinical information: Yes Notes (Text): 05/10/18 18:14 patient seen and examined in the intensive care unit. remained intubated on ventilatory support No active bleeding Follow-up CBC Continue present treatment
--- NOTE | 2018-05-10 19:20 | CP.PCM.PN ---
Subjective - Date & Time of Evaluation Date of Evaluation: 05/10/18 Time of Evaluation: 15:00 - Subjective Subjective: dictated Objective - Vital Signs/Intake and Output Vital Signs (last 24 hours): Temp Pulse Resp BP Pulse Ox 97.9 F 98 H 16 190/99 H 100 05/10/18 16:00 05/10/18 19:00 05/10/18 19:00 05/10/18 18:48 05/10/18 19:00 Intake and Output: 05/10/18 05/11/18 18:59 06:59 Intake Total 1237 85 Output Total 351 0 Balance 886 85 - Medications Medications: Current Medications Albuterol/Ipratropium (Duoneb 3 Mg/0.5 Mg (3 Ml) Ud) 3 ml INH RQ6 PRN PRN Reason: Cough Dextrose (Dextrose 50% Inj) 0 ml IV STAT PRN; Protocol PRN Reason: Hypoglycemia Protocol Dextrose (Glutose 15) 0 gm PO ONCE PRN; Protocol PRN Reason: Hypoglycemia Protocol Glucagon (Glucagen Diagnostic Kit) 0 mg IM STAT PRN; Protocol PRN Reason: Hypoglycemia Protocol Dextrose (Dextrose 5% In Water 1000 Ml) 1,000 mls @ 0 mls/hr IV .Q0M PRN; Protocol PRN Reason: Hypoglycemia Protocol Norepinephrine Bitartrate 4 mg (/ Sodium Chloride) 250 mls @ 37.5 mls/hr IV .Q6H40M PRN; Protocol PRN Reason: TITRATE PER MD ORDER Last Titration: 05/09/18 19:00 Dose: 0 mcg/min, 0 mls/hr Pantoprazole Sodium 80 mg/ (Sodium Chloride) 100 mls @ 10 mls/hr IVPB .Q10H [facility] Last Admin: 05/10/18 14:19 Dose: 10 mls/hr Metronidazole (Flagyl) 500 mg in 100 mls @ 100 mls/hr IVPB Q8H [facility]; Protocol Last Admin: 05/10/18 14:20 Dose: 100 mls/hr Ciprofloxacin (Cipro 200mg/100ml D5w) 100 mls @ 67 mls/hr IVPB Q12H [facility]; Protocol Last Admin: 05/10/18 16:15 Dose: 67 mls/hr Sodium Chloride (Sodium Chloride 0.45%) 1,000 mls @ 75 mls/hr IV .[id number] [facility] Last Admin: 05/10/18 06:50 Dose: 75 mls/hr Insulin Aspart (Novolog) 0 unit SC Q4 [facility]; Protocol Last Admin: 05/10/18 16:15 Dose: 2 u Neomycin/Polymyxin/Bacitracin (Neosporin Triple Antibiotic Oint) 0 gm TOP BID [facility] Last Admin: 05/10/18 17:51 Dose: 1 applic Nystatin (Nystop Topical Powder) 1 applic TOP BID [facility] Last Admin: 05/10/18 17:51 Dose: 1 applic Rosuvastatin Calcium (Crestor) 10 mg PO HS [facility] Last Admin: 05/09/18 21:25 Dose: Not Given Verapamil HCl (Verapamil Inj) 2.5 mg IVP Q4 PRN PRN Reason: Heart rate - Labs Labs: 05/10/18 06:08 05/10/18 06:08 PT 18.4 SECONDS (9.7-12.2) H 05/09/18 09:10 INR 1.7 05/09/18 09:10 APTT 22 SECONDS (21-34) 05/09/18 09:10
--- NOTE | 2018-05-10 21:18 | CP.PCM.PN ---
Subjective - Date & Time of Evaluation Date of Evaluation: 05/10/18 Time of Evaluation: 09:15 - Subjective Subjective: Patient seen and evaluated Unresponsive Anoxic encephalopathy Poor prognosis Objective - Vital Signs/Intake and Output Vital Signs (last 24 hours): Temp Pulse Resp BP Pulse Ox 97.9 F 98 H 16 190/99 H 100 05/10/18 16:00 05/10/18 19:00 05/10/18 19:00 05/10/18 18:48 05/10/18 19:00 Intake and Output: 05/10/18 05/11/18 18:59 06:59 Intake Total 1237 85 Output Total 351 0 Balance 886 85 - Medications Medications: Current Medications Albuterol/Ipratropium (Duoneb 3 Mg/0.5 Mg (3 Ml) Ud) 3 ml INH RQ6 PRN PRN Reason: Cough Dextrose (Dextrose 50% Inj) 0 ml IV STAT PRN; Protocol PRN Reason: Hypoglycemia Protocol Dextrose (Glutose 15) 0 gm PO ONCE PRN; Protocol PRN Reason: Hypoglycemia Protocol Glucagon (Glucagen Diagnostic Kit) 0 mg IM STAT PRN; Protocol PRN Reason: Hypoglycemia Protocol Dextrose (Dextrose 5% In Water 1000 Ml) 1,000 mls @ 0 mls/hr IV .Q0M PRN; Protocol PRN Reason: Hypoglycemia Protocol Norepinephrine Bitartrate 4 mg (/ Sodium Chloride) 250 mls @ 37.5 mls/hr IV .Q6H40M PRN; Protocol PRN Reason: TITRATE PER MD ORDER Last Titration: 05/09/18 19:00 Dose: 0 mcg/min, 0 mls/hr Pantoprazole Sodium 80 mg/ (Sodium Chloride) 100 mls @ 10 mls/hr IVPB .Q10H [facility] Last Admin: 05/10/18 14:19 Dose: 10 mls/hr Metronidazole (Flagyl) 500 mg in 100 mls @ 100 mls/hr IVPB Q8H [facility]; Protocol Last Admin: 05/10/18 14:20 Dose: 100 mls/hr Ciprofloxacin (Cipro 200mg/100ml D5w) 100 mls @ 67 mls/hr IVPB Q12H [facility]; Protocol Last Admin: 05/10/18 16:15 Dose: 67 mls/hr Sodium Chloride (Sodium Chloride 0.45%) 1,000 mls @ 75 mls/hr IV .[id number] [facility] Last Admin: 05/10/18 20:23 Dose: Not Given Insulin Aspart (Novolog) 0 unit SC Q4 [facility]; Protocol Last Admin: 05/10/18 16:15 Dose: 2 u Neomycin/Polymyxin/Bacitracin (Neosporin Triple Antibiotic Oint) 0 gm TOP BID [facility] Last Admin: 05/10/18 17:51 Dose: 1 applic Nystatin (Nystop Topical Powder) 1 applic TOP BID [facility] Last Admin: 05/10/18 17:51 Dose: 1 applic Rosuvastatin Calcium (Crestor) 10 mg PO HS [facility] Last Admin: 05/09/18 21:25 Dose: Not Given Verapamil HCl (Verapamil Inj) 2.5 mg IVP Q4 PRN PRN Reason: Heart rate - Labs Labs: 05/10/18 06:08 05/10/18 06:08 PT 18.4 SECONDS (9.7-12.2) H 05/09/18 09:10 INR 1.7 05/09/18 09:10 APTT 22 SECONDS (21-34) 05/09/18 09:10
--- NOTE | 2018-05-10 22:52 | PN ---
DATE: 05/10/2018 SUBJECTIVE: The patient was seen yesterday, and I dictated the consult. The patient still remains in the ICU. She is intubated, appears comatosed and appears edematous. Her daughter was at the bedside. She is concerned. The nurse told me that the bandemia has increased, and the patient's daughter seems like wants everything to be done. The patient is, however, off pressors. She still remains tachycardic and hypertensive, and she has a duodenal ulcer, and she came in with severe anemia of hemoglobin 4 and received transfusions. PHYSICAL EXAMINATION: VITAL SIGNS: T-max is 97.9, heart rate of 115, saturations 100%. She is on a ventilator with 50% and respiratory rate is on the ventilator. HEENT: Head is puffy. She has a TLC on the right IJ, and she had a tracheostomy in the past, but right now, she does not have one. NECK: Supple. LUNGS: There are decreased breath sounds bilaterally. HEART: S1, S2 are tachycardic. ABDOMEN: Soft, nontender. The gastrostomy tube site appears with redness, but we have applied powders and the cream, so it is covered with that and she is off the feedings. EXTREMITIES: Remain with edema. LABORATORY DATA: Labs are noted. Labs show white count today is 16.1, hemoglobin 12.9, hematocrit 38.8, platelet count is 129 which is better than yesterday. However, bands are supposed to be increased to 26, but at this time, I will continue present treatment. ASSESSMENT AND PLAN: She is on vancomycin, Cipro as well as Flagyl. Her LFTs are very high and probably had ischemia due to ischemic hepatitis at this time, and her TSH is also low 0.29, so maybe she is on a higher dose of Synthroid. Her random level today was 15.9, and the patient is on vancomycin, Cipro as well as Flagyl, and with respiratory failure. We will follow. Actually, we did not give vancomycin today because the random was 15.9, so we will see how it remains tomorrow and repeat vancomycin level tomorrow. Sadhna Robert, MD
[2018-05-10 23:15] LABS: BASO # 0.1 K/uL (0.0-0.2); BASO % 0.4 % (0.0-2.0); EOS # 0.1 K/uL (0.0-0.7); EOS % 0.8 % (0.0-4.0); HEMOGLOBIN 11.1 g/dL (11.0-16.0); LYMPH # 1.2 K/uL (1.0-4.3); LYMPH % 7.7 % (20.0-40.0); MEAN CELL VOLUME 87.4 fL (81.0-99.0); MEAN CORPUSCULAR HEMOGLOBIN 29.6 pg (27.0-31.0); MEAN CORPUSCULAR HGB CONC 33.8 g/dL (33.0-37.0); MEAN PLATELET VOLUME 8.2 fL (7.2-11.7); MONO # 0.7 K/uL (0.0-0.8); MONO % 4.9 % (0.0-10.0); NEUT # 12.9 K/uL (1.8-7.0); NEUT % 86.2 % (50.0-75.0); NRBC % 1.2 % (0.0-2.0); PLATELET COUNT 123 K/uL (130-400); RBC 3.76 Mil/uL (3.80-5.20); RED CELL DISTRIBUTION WIDTH 17.7 % (11.5-14.5)
[2018-05-10 23:27] LABS: ALBUMIN 2.4 g/dL (3.5-5.0); CALCIUM 8.4 mg/dl (8.6-10.4)
[2018-05-10 23:52] LABS: BANDS 16 % (0-2); LYMPHOCYTE 5 % (20-40); MONOCYTE 2 % (0-10); NEUTROPHIL 77 % (50-75); NUCLEATED RED BLOOD CELL 1 % (0-0); PLATELET ESTIMATE SLIGHTLY DECREASED (NORMAL); TOTAL CELLS COUNTED 100
[2018-05-10 23:53] LABS: ANISOCYTOSIS SLIGHT; POIKILOCYTOSIS SLIGHT
[2018-05-11] MEDS: (Novolog) Insulin Aspart, Recombinant 100 u/ml 10 ml vial SC SCH ×6 (00:49→23:55)
[2018-05-11] MEDS: Pantoprazole 80 MG in Sodium Chloride 0.9% 100 ML IVPB SCH ×4 (00:53→23:48)
[2018-05-11] MEDS: Sodium Chloride 0.45% 1,000 ML IV SCH ×2 (00:58→09:47)
[2018-05-11] MEDS ORDERED: Potassium Chloride 20 mEq/15 ml LIQ UD PO STA (01:05)
[2018-05-11] MEDS: Ciprofloxacin 200mg/100ml D5W 100 ML IVPB SCH ×2 (04:53→17:02)
[2018-05-11 05:46] LABS: ARTERIAL BLOOD GAS HCO3 24.6 mmol/L (21-28); ARTERIAL BLOOD GAS HEMOGLOBIN 12.1 g/dL (11.7-17.4); ARTERIAL BLOOD GAS O2 SAT 99.2 % (95-98); ARTERIAL BLOOD GAS PCO2 32 mm/Hg (35-45); ARTERIAL BLOOD GAS PH 7.46 (7.35-7.45); ARTERIAL BLOOD GAS PO2 166 mm/Hg (80-100); ARTERIAL BLOOD GAS TCO2 23.8 mmol/L (22-28)
[2018-05-11] MEDS: metroNIDAZOLE IV 500 mg/100 ml 500 MG/100 ML BAG IVPB SCH ×3 (06:24→21:58)
[2018-05-11 06:46] LABS: BASO # 0.1 K/uL (0.0-0.2); BASO % 0.3 % (0.0-2.0); EOS # 0.1 K/uL (0.0-0.7); EOS % 0.7 % (0.0-4.0); LYMPH # 1.5 K/uL (1.0-4.3); LYMPH % 8.3 % (20.0-40.0); MEAN CELL VOLUME 87.9 fL (81.0-99.0); MEAN CORPUSCULAR HGB CONC 34.1 g/dL (33.0-37.0); MEAN PLATELET VOLUME 8.6 fL (7.2-11.7); MONO # 0.7 K/uL (0.0-0.8); MONO % 4.2 % (0.0-10.0); NEUT # 15.4 K/uL (1.8-7.0); NEUT % 86.5 % (50.0-75.0); NRBC % 1.3 % (0.0-2.0); PLATELET COUNT 135 K/uL (130-400); RBC 4.02 Mil/uL (3.80-5.20); RED CELL DISTRIBUTION WIDTH 18.2 % (11.5-14.5); WHITE BLOOD COUNT 17.8 K/uL (4.8-10.8)
[2018-05-11 07:05] LABS: ALB/GLOB RATIO 1.1 (1.0-2.1); ALBUMIN 2.9 g/dL (3.5-5.0); ALT/SGPT 931 U/L (9-52); AST/SGOT 704 U/L (14-36); BLOOD UREA NITROGEN 29 mg/dL (7-17); CALCIUM 8.8 mg/dl (8.6-10.4); GFR NON-AFRICAN AMERICAN 53
[2018-05-11] MEDS: Bacitracin/Neomycin/Polymyxin Oint(30GM) TOP SCH ×2 (10:00→17:03)
[2018-05-11 10:07] LABS: BANDS 12 % (0-2); EOSINOPHIL 2 % (0-4); LYMPHOCYTE 7 % (20-40); MONOCYTE 3 % (0-10); NEUTROPHIL 76 % (50-75); TOTAL CELLS COUNTED 100
[2018-05-11 10:08] LABS: ANISOCYTOSIS MODERATE; BURR CELLS SLIGHT; HYPOCHROMIC SLIGHT; PLATELET ESTIMATE NORMAL (NORMAL); POIKILOCYTOSIS SLIGHT; POLYCHROMIC SLIGHT
[2018-05-11 10:09] LABS: OVALOCYTES SLIGHT; TOXIC GRANULATION PRESENT
[2018-05-11 10:10] LABS: LARGE PLATELETS PRESENT
[2018-05-11] MEDS ORDERED: Labetalol 25mg/5ml Syringe IVP STA (10:13)
--- NOTE | 2018-05-11 10:17 | RAD ---
HISTORY: s/p intubation COMPARISON: Chest x-ray performed 05/10/18 TECHNIQUE: Chest, one view. FINDINGS: Endotracheal tube terminates approximately 2.3 cm above the renata. Right IJ approach central venous catheter extends the cavoatrial junction. LUNGS: Hypoinflation. Patchy right upper lobe infiltrate. Please note that chest x-ray has limited sensitivity for the detection of pulmonary masses. PLEURA: No significant pleural effusion identified. No definite pneumothorax . CARDIOVASCULAR: Single lead left-sided pacemaker. Heart size appears within normal limits. Dense coronary artery calcification. OSSEOUS STRUCTURES: Osseous demineralization. Scoliosis. Multilevel degenerative changes. VISUALIZED UPPER ABDOMEN: Unremarkable. OTHER FINDINGS: None. IMPRESSION: Endotracheal tube terminates approximately 2.3 cm above the renata. Right IJ approach central venous catheter extends the cavoatrial junction. Patchy right upper lobe infiltrate.
[2018-05-11] MEDS ORDERED: Labetalol 25mg/5ml Syringe IVP ONE (10:45)
--- NOTE | 2018-05-11 11:24 | CP.PCM.PN ---
Subjective - Date & Time of Evaluation Date of Evaluation: 05/11/18 Time of Evaluation: 11:10 - Subjective Subjective: f/u GI bleed No more bleeding. No Rb, hematemesis, hemoptysis, SZ, tremor. More alert Objective - Vital Signs/Intake and Output Vital Signs (last 24 hours): Temp Pulse Resp BP Pulse Ox 98 F 87 25 H 163/63 H 99 05/11/18 08:00 05/11/18 11:00 05/11/18 11:00 05/11/18 10:12 05/11/18 11:00 Intake and Output: 05/11/18 05/11/18 06:59 18:59 Intake Total 1155 475 Output Total 800 Balance 355 475 - Medications Medications: Current Medications Albuterol/Ipratropium (Duoneb 3 Mg/0.5 Mg (3 Ml) Ud) 3 ml INH RQ6 PRN PRN Reason: Cough Dextrose (Dextrose 50% Inj) 0 ml IV STAT PRN; Protocol PRN Reason: Hypoglycemia Protocol Dextrose (Glutose 15) 0 gm PO ONCE PRN; Protocol PRN Reason: Hypoglycemia Protocol Glucagon (Glucagen Diagnostic Kit) 0 mg IM STAT PRN; Protocol PRN Reason: Hypoglycemia Protocol Dextrose (Dextrose 5% In Water 1000 Ml) 1,000 mls @ 0 mls/hr IV .Q0M PRN; Protocol PRN Reason: Hypoglycemia Protocol Pantoprazole Sodium 80 mg/ (Sodium Chloride) 100 mls @ 10 mls/hr IVPB .Q10H [facility] Last Admin: 05/11/18 10:42 Dose: 10 mls/hr Metronidazole (Flagyl) 500 mg in 100 mls @ 100 mls/hr IVPB Q8H [facility]; Protocol Last Admin: 05/11/18 06:24 Dose: 100 mls/hr Ciprofloxacin (Cipro 200mg/100ml D5w) 100 mls @ 67 mls/hr IVPB Q12H [facility]; Protocol Last Admin: 05/11/18 04:53 Dose: 67 mls/hr Potassium Chloride (Potassium Chloride 20 Meq/100 Ml) 20 meq in 100 mls @ 50 mls/hr IVPB ONCE ONE Stop: 05/11/18 12:17 Last Admin: 05/11/18 10:42 Dose: 50 mls/hr Potassium Chloride (Potassium Chloride 20 Meq/100 Ml) 20 meq in 100 mls @ 50 mls/hr IVPB ONCE ONE Stop: 05/11/18 13:19 Last Admin: 05/11/18 10:42 Dose: 50 mls/hr Insulin Aspart (Novolog) 0 unit SC Q4 [facility]; Protocol Last Admin: 05/11/18 07:56 Dose: 2 u Neomycin/Polymyxin/Bacitracin (Neosporin Triple Antibiotic Oint) 0 gm TOP BID [facility] Last Admin: 05/10/18 17:51 Dose: 1 applic Nystatin (Nystop Topical Powder) 1 applic TOP BID [facility] Last Admin: 05/11/18 10:36 Dose: 1 applic Rosuvastatin Calcium (Crestor) 10 mg PO HS [facility] Last Admin: 05/10/18 22:00 Dose: Not Given Verapamil HCl (Verapamil Inj) 2.5 mg IVP Q4 PRN PRN Reason: Heart rate Last Admin: 05/11/18 06:26 Dose: 2.5 mg - Labs Labs: 05/11/18 06:36 05/11/18 06:36 PT 18.4 SECONDS (9.7-12.2) H 05/09/18 09:10 INR 1.7 05/09/18 09:10 APTT 25 SECONDS (21-34) 05/10/18 23:10 - Constitutional Appears: Chronically Ill - Respiratory Exam Respiratory Exam: Rhonchi Additional comments: intubated - Cardiovascular Exam Cardiovascular Exam: RRR - GI/Abdominal Exam GI & Abdominal Exam: Soft, Normal Bowel Sounds. absent: Guarding, Tenderness, Mass, Rebound Additional comments: intubated - Neurological Exam Neurological Exam: Awake. absent: Oriented x3 Assessment and Plan (1) Altered mental status Status: Acute (2) Sepsis Status: Acute (3) Anxiety Status: Acute (4) CAD (coronary artery disease) Status: Acute (5) Diabetes 1.5, managed as type 2 Status: Acute (6) Esophageal stricture Assessment & Plan: Achalasia Status: Acute (7) Achalasia Status: Chronic (8) Diabetes Status: Chronic (9) Anemia Status: Acute (10) GI bleed Assessment & Plan: bleeding DU- s/p therapeutic endoscopy with gold probe cauetery. Bleeding has stopped. Rec- PPI, avoid anticoagulants, check Hb, check LFTs Status: Acute (11) Elevated transaminase level Assessment & Plan: shock level from hypotension Status: Acute
--- NOTE | 2018-05-11 11:25 | CP.CCUPN ---
<Chema Thornton - Last Filed: 05/11/18 21:20> CCU Subjective - Physician Review Subjective (Free Text): 05/11/18 21:23 Patient seen and examined at bedside in the ICU. No acute events reported overnight. Today, off all sedation, waking up, following basic commands. Will trial PS/CPAP today to assess for suitability for extubation. Remains on protonix drip, no reported melanotic movements or helen blood per rectum. CCU Objective - Vital Signs / Intake & Output Vital Signs (Last 4 hours): Vital Signs Temp Pulse Resp BP Pulse Ox 05/11/18 11:00 87 25 H 99 05/11/18 10:12 99 H 16 163/63 H 100 05/11/18 10:01 107 H 17 172/85 H 100 05/11/18 10:00 104 H 21 96 05/11/18 09:53 105 H 16 178/81 H 100 05/11/18 09:02 88 16 100 05/11/18 09:00 89 16 100 05/11/18 08:01 102 H 20 173/87 H 99 05/11/18 08:00 98 F 97 H 16 100 Intake and Output (Last 8hrs): Intake & Output 05/10/18 05/11/18 05/11/18 22:59 06:59 14:59 Intake Total 730 790 475 Output Total 550 600 Balance 180 190 475 Weight 45.813 kg Intake: Intake, IV Amount 730 730 475 Right Distal Port 80 80 50 Internal Jugular Right Proximal Port 650 650 425 Internal Jugular Other 60 Output: Urine 550 600 Urine, Voided 550 600 Emesis 0 Other: # Voids Urine, Voided 0 0 0 # Bowel Movements 1 1 0 - Physical Exam Head: Positive for: Atraumatic, Normocephalic Pupils: Negative for: Pinpoint Extroacular Muscles: Positive for: EOMI Conjunctiva: Positive for: Normal. Negative for: Injected, Icteric Mouth: Positive for: Moist Mucous Membranes, Other (ETT in place). Negative for: Dry Nose (External): Positive for: Atraumatic. Negative for: Abrasion, Contusion, Laceration Nose (Internal): Positive for: No Active Bleeding. Negative for: Epistaxis Neck: Positive for: Normal Range of Motion, Trachea Midline. Negative for: JVD Respiratory/Chest: Positive for: Clear to Auscultation, Good Air Exchange, Other (intubated and ventilated on PRVC mode, tolerating well and overbreathing the vent). Negative for: Accessory Muscle Use, Wheezes, Rales, Rhonchi Cardiovascular: Positive for: Regular Rate and Rhythm, Normal S1, S2, Peripheal Pulses Present (+2 radials). Negative for: Irregular Rhythm, Tachycardic, Bradycardic Abdomen: Positive for: Normal Bowel Sounds. Negative for: Tenderness, Distention Upper Extremity: Positive for: Normal Inspection, NORMAL PULSES. Negative for: Cyanosis, Edema Lower Extremity: Positive for: Normal Inspection, NORMAL PULSES (+1 dorsalis pedis bilaterally). Negative for: Edema Neurological: Positive for: GCS=15, Other (lethargic/somnolent but easily arousable, remains awake and alert after arousal for some time before returning to somnolence, following simple commands, tracking staff within room) Skin: Positive for: Warm, Dry, Normal Color Psychiatric: Positive for: Other (somnolent but arousable, awake and alert for up to an hour before returning to somnolence, intubated so non-verbal and unable to fully assess mental status) - Medications Active Medications: Active Medications Generic Name Dose Route Start Last Admin Trade Name Freq PRN Reason Stop Dose Admin Albuterol/Ipratropium 3 ml 05/07/18 21:18 Duoneb 3 Mg/0.5 Mg (3 Ml) Ud INH RQ6 PRN Cough Dextrose 0 ml 05/07/18 11:11 Dextrose 50% Inj IV STAT PRN Hypoglycemia Protocol Protocol Dextrose 0 gm 05/07/18 11:11 Glutose 15 PO ONCE PRN Hypoglycemia Protocol Protocol Glucagon 0 mg 05/07/18 11:11 Glucagen Diagnostic Kit IM STAT PRN Hypoglycemia Protocol Protocol Dextrose 1,000 mls @ 0 mls/hr 05/07/18 11:11 Dextrose 5% In Water 1000 Ml IV .Q0M PRN Hypoglycemia Protocol Protocol Per Protocol Pantoprazole Sodium 80 mg/ 100 mls @ 10 mls/hr 05/09/18 08:30 05/11/18 10:42 Sodium Chloride IVPB 10 mls/hr .Q10H JUDY Administration 8 MG/HR Metronidazole 500 mg in 100 mls @ 100 mls/hr 05/09/18 14:00 05/11/18 06:24 Flagyl IVPB 100 mls/hr Q8H JUDY Administration Protocol Ciprofloxacin 100 mls @ 67 mls/hr 05/09/18 17:00 05/11/18 04:53 Cipro 200mg/100ml D5w IVPB 67 mls/hr Q12H JUDY Administration Protocol Potassium Chloride 20 meq in 100 mls @ 50 mls/hr 05/11/18 10:18 05/11/18 10:42 Potassium Chloride 20 Meq/100 Ml IVPB 05/11/18 12:17 50 mls/hr ONCE ONE Administration Potassium Chloride 20 meq in 100 mls @ 50 mls/hr 05/11/18 11:20 05/11/18 10:42 Potassium Chloride 20 Meq/100 Ml IVPB 05/11/18 13:19 50 mls/hr ONCE ONE Administration Insulin Aspart 0 unit 05/10/18 08:15 05/11/18 07:56 Novolog SC 2 u Q4 JUDY Administration Protocol Neomycin/Polymyxin/Bacitracin 0 gm 05/10/18 10:00 05/10/18 17:51 Neosporin Triple Antibiotic Oint TOP 1 applic BID JUDY Administration Nystatin 1 applic 05/09/18 18:00 05/11/18 10:36 Nystop Topical Powder TOP 1 applic BID JUDY Administration Rosuvastatin Calcium 10 mg 05/07/18 22:00 05/10/18 22:00 Crestor PO Not Given HS JUDY Verapamil HCl 2.5 mg 05/09/18 17:48 05/11/18 06:26 Verapamil Inj IVP 2.5 mg Q4 PRN Administration Heart rate - Patient Studies Lab Studies: Microbiology Studies 05/07/18 09:01 Blood Culture - Preliminary Blood NO GROWTH AFTER 4 DAYS 05/07/18 17:55 Blood Culture - Preliminary Blood NO GROWTH AFTER 3 DAYS Lab Studies 05/11/18 05/11/18 05/11/18 Range/Units 07:24 06:36 06:36 WBC (4.8-10.8) K/uL RBC (3.80-5.20) Mil/uL Hgb (11.0-16.0) g/dL Hct (34.0-47.0) % MCV (81.0-99.0) fL MCH (27.0-31.0) pg MCHC (33.0-37.0) g/dL RDW (11.5-14.5) % Plt Count (130-400) K/uL MPV (7.2-11.7) fL Neut % (Auto) (50.0-75.0) % Lymph % (Auto) (20.0-40.0) % [place] % (Auto) (0.0-10.0) % Eos % (Auto) (0.0-4.0) % Baso % (Auto) (0.0-2.0) % Neut # (Auto) (1.8-7.0) K/uL Lymph # (Auto) (1.0-4.3) K/uL [place] # (Auto) (0.0-0.8) K/uL Eos # (Auto) (0.0-0.7) K/uL Baso # (Auto) (0.0-0.2) K/uL Neutrophils % (Manual) (50-75) % Band Neutrophils % (0-2) % Lymphocytes % (Manual) (20-40) % Monocytes % (Manual) (0-10) % Eosinophils % (Manual) (0-4) % Nucleated RBC % (0-0) % Toxic Granulation Platelet Estimate (NORMAL) Large Platelets Polychromasia Hypochromasia (manual) Poikilocytosis (manual Anisocytosis (manual) Ovalocytes Sushil Cells APTT (21-34) SECONDS Puncture Site pCO2 (35-45) mm/Hg pO2 (80-100) mm/Hg HCO3 (21-28) mmol/L ABG pH (7.35-7.45) ABG Total CO2 (22-28) mmol/L ABG O2 Saturation (95-98) % ABG Base Excess (-2.0-3.0) mmol/L ABG Hemoglobin (11.7-17.4) g/dL ABG Carboxyhemoglobin (0.5-1.5) % POC ABG HHb (Measured) (0.0-5.0) % ABG Methemoglobin (0.0-3.0) % Scout Test A-a O2 Difference mm/Hg Respiratory Index Hgb O2 Saturation (95.0-98.0) % Vent Mode Mechanical Rate FiO2 % Tidal Volume PEEP Sodium 158 H (132-148) mmol/L Potassium 3.4 L (3.6-5.2) mmol/L Chloride 124 H (98-107) mmol/L Carbon Dioxide 24 (22-30) mmol/L Anion Gap 12 (10-20) BUN 29 H (7-17) mg/dL Creatinine 1.0 (0.7-1.2) mg/dL Est GFR ( Amer) > 60 Est GFR (Non-Af Amer) 53 POC Glucose (mg/dL) 170 H (65-110) mg/dL Random Glucose 123 H (65-105) mg/dL Calcium 8.8 (8.6-10.4) mg/dl Phosphorus 2.3 L (2.5-4.5) mg/dL Magnesium 1.8 (1.6-2.3) mg/dL Total Bilirubin 0.8 (0.2-1.3) mg/dL AST 704 H (14-36) U/L ALT 931 H (9-52) U/L Alkaline Phosphatase 72 (38-126) U/L Total Protein 5.4 L (6.3-8.3) g/dL Albumin 2.9 L D (3.5-5.0) g/dL Globulin 2.5 (2.2-3.9) gm/dL Albumin/Globulin Ratio 1.1 (1.0-2.1) Random Vancomycin 8.0 ug/mL 05/11/18 05/11/18 05/11/18 Range/Units 06:36 05:27 04:12 WBC 17.8 H (4.8-10.8) K/uL RBC 4.02 (3.80-5.20) Mil/uL Hgb 12.0 (11.0-16.0) g/dL Hct 35.3 (34.0-47.0) % MCV 87.9 (81.0-99.0) fL MCH 30.0 (27.0-31.0) pg MCHC 34.1 (33.0-37.0) g/dL RDW 18.2 H (11.5-14.5) % Plt Count 135 (130-400) K/uL MPV 8.6 (7.2-11.7) fL Neut % (Auto) 86.5 H (50.0-75.0) % Lymph % (Auto) 8.3 L (20.0-40.0) % [place] % (Auto) 4.2 (0.0-10.0) % Eos % (Auto) 0.7 (0.0-4.0) % Baso % (Auto) 0.3 (0.0-2.0) % Neut # (Auto) 15.4 H (1.8-7.0) K/uL Lymph # (Auto) 1.5 (1.0-4.3) K/uL [place] # (Auto) 0.7 (0.0-0.8) K/uL Eos # (Auto) 0.1 (0.0-0.7) K/uL Baso # (Auto) 0.1 (0.0-0.2) K/uL Neutrophils % (Manual) 76 H (50-75) % Band Neutrophils % 12 H* (0-2) % Lymphocytes % (Manual) 7 L (20-40) % Monocytes % (Manual) 3 (0-10) % Eosinophils % (Manual) 2 (0-4) % Nucleated RBC % (0-0) % Toxic Granulation Present Platelet Estimate Normal (NORMAL) Large Platelets Present Polychromasia Slight Hypochromasia (manual) Slight Poikilocytosis (manual Slight Anisocytosis (manual) Moderate Ovalocytes Slight Sushil Cells Slight APTT (21-34) SECONDS Puncture Site R bra pCO2 32 L (35-45) mm/Hg pO2 166 H (80-100) mm/Hg HCO3 24.6 (21-28) mmol/L ABG pH 7.46 H (7.35-7.45) ABG Total CO2 23.8 (22-28) mmol/L ABG O2 Saturation 99.2 H (95-98) % ABG Base Excess -0.4 (-2.0-3.0) mmol/L ABG Hemoglobin 12.1 (11.7-17.4) g/dL ABG Carboxyhemoglobin 1.3 (0.5-1.5) % POC ABG HHb (Measured) 0.8 (0.0-5.0) % ABG Methemoglobin 1.3 (0.0-3.0) % Scout Test Na A-a O2 Difference 151.0 mm/Hg Respiratory Index 0.9 Hgb O2 Saturation 96.6 (95.0-98.0) % Vent Mode Prvc Mechanical Rate 16 FiO2 50.0 % Tidal Volume 400 PEEP 5 Sodium (132-148) mmol/L Potassium (3.6-5.2) mmol/L Chloride (98-107) mmol/L Carbon Dioxide (22-30) mmol/L Anion Gap (10-20) BUN (7-17) mg/dL Creatinine (0.7-1.2) mg/dL Est GFR ( Amer) Est GFR (Non-Af Amer) POC Glucose (mg/dL) 127 H (65-110) mg/dL Random Glucose (65-105) mg/dL Calcium (8.6-10.4) mg/dl Phosphorus (2.5-4.5) mg/dL Magnesium (1.6-2.3) mg/dL Total Bilirubin (0.2-1.3) mg/dL AST (14-36) U/L ALT (9-52) U/L Alkaline Phosphatase (38-126) U/L Total Protein (6.3-8.3) g/dL Albumin (3.5-5.0) g/dL Globulin (2.2-3.9) gm/dL Albumin/Globulin Ratio (1.0-2.1) Random Vancomycin ug/mL 05/10/18 05/10/18 05/10/18 Range/Units 23:41 23:10 23:10 WBC (4.8-10.8) K/uL RBC (3.80-5.20) Mil/uL Hgb (11.0-16.0) g/dL Hct (34.0-47.0) % MCV (81.0-99.0) fL MCH (27.0-31.0) pg MCHC (33.0-37.0) g/dL RDW (11.5-14.5) % Plt Count (130-400) K/uL MPV (7.2-11.7) fL Neut % (Auto) (50.0-75.0) % Lymph % (Auto) (20.0-40.0) % [place] % (Auto) (0.0-10.0) % Eos % (Auto) (0.0-4.0) % Baso % (Auto) (0.0-2.0) % Neut # (Auto) (1.8-7.0) K/uL Lymph # (Auto) (1.0-4.3) K/uL [place] # (Auto) (0.0-0.8) K/uL Eos # (Auto) (0.0-0.7) K/uL Baso # (Auto) (0.0-0.2) K/uL Neutrophils % (Manual) (50-75) % Band Neutrophils % (0-2) % Lymphocytes % (Manual) (20-40) % Monocytes % (Manual) (0-10) % Eosinophils % (Manual) (0-4) % Nucleated RBC % (0-0) % Toxic Granulation Platelet Estimate (NORMAL) Large Platelets Polychromasia Hypochromasia (manual) Poikilocytosis (manual Anisocytosis (manual) Ovalocytes Sushil Cells APTT 25 (21-34) SECONDS Puncture Site pCO2 (35-45) mm/Hg pO2 (80-100) mm/Hg HCO3 (21-28) mmol/L ABG pH (7.35-7.45) ABG Total CO2 (22-28) mmol/L ABG O2 Saturation (95-98) % ABG Base Excess (-2.0-3.0) mmol/L ABG Hemoglobin (11.7-17.4) g/dL ABG Carboxyhemoglobin (0.5-1.5) % POC ABG HHb (Measured) (0.0-5.0) % ABG Methemoglobin (0.0-3.0) % Scout Test A-a O2 Difference mm/Hg Respiratory Index Hgb O2 Saturation (95.0-98.0) % Vent Mode Mechanical Rate FiO2 % Tidal Volume PEEP Sodium 158 H (132-148) mmol/L Potassium 3.0 L (3.6-5.2) mmol/L Chloride 126 H (98-107) mmol/L Carbon Dioxide 23 (22-30) mmol/L Anion Gap 12 (10-20) BUN 35 H (7-17) mg/dL Creatinine 1.1 (0.7-1.2) mg/dL Est GFR ( Amer) 57 Est GFR (Non-Af Amer) 47 POC Glucose (mg/dL) 172 H (65-110) mg/dL Random Glucose 137 H (65-105) mg/dL Calcium 8.4 L (8.6-10.4) mg/dl Phosphorus 2.8 (2.5-4.5) mg/dL Magnesium 1.8 (1.6-2.3) mg/dL Total Bilirubin 0.8 (0.2-1.3) mg/dL AST 804 H D (14-36) U/L ALT 868 H D (9-52) U/L Alkaline Phosphatase 60 (38-126) U/L Total Protein 4.8 L (6.3-8.3) g/dL Albumin 2.4 L (3.5-5.0) g/dL Globulin 2.3 (2.2-3.9) gm/dL Albumin/Globulin Ratio 1.0 (1.0-2.1) Random Vancomycin ug/mL 05/10/18 05/10/18 05/10/18 Range/Units 23:10 19:30 15:42 WBC 15.0 H (4.8-10.8) K/uL RBC 3.76 L (3.80-5.20) Mil/uL Hgb 11.1 (11.0-16.0) g/dL Hct 32.9 L (34.0-47.0) % MCV 87.4 (81.0-99.0) fL MCH 29.6 (27.0-31.0) pg MCHC 33.8 (33.0-37.0) g/dL RDW 17.7 H (11.5-14.5) % Plt Count 123 L (130-400) K/uL MPV 8.2 (7.2-11.7) fL Neut % (Auto) 86.2 H (50.0-75.0) % Lymph % (Auto) 7.7 L (20.0-40.0) % [place] % (Auto) 4.9 (0.0-10.0) % Eos % (Auto) 0.8 (0.0-4.0) % Baso % (Auto) 0.4 (0.0-2.0) % Neut # (Auto) 12.9 H (1.8-7.0) K/uL Lymph # (Auto) 1.2 (1.0-4.3) K/uL [place] # (Auto) 0.7 (0.0-0.8) K/uL Eos # (Auto) 0.1 (0.0-0.7) K/uL Baso # (Auto) 0.1 (0.0-0.2) K/uL Neutrophils % (Manual) 77 H (50-75) % Band Neutrophils % 16 H* (0-2) % Lymphocytes % (Manual) 5 L (20-40) % Monocytes % (Manual) 2 (0-10) % Eosinophils % (Manual) (0-4) % Nucleated RBC % 1 H (0-0) % Toxic Granulation Platelet Estimate Slightly decreased L (NORMAL) Large Platelets Polychromasia Hypochromasia (manual) Poikilocytosis (manual Slight Anisocytosis (manual) Slight Ovalocytes Sushil Cells APTT (21-34) SECONDS Puncture Site pCO2 (35-45) mm/Hg pO2 (80-100) mm/Hg HCO3 (21-28) mmol/L ABG pH (7.35-7.45) ABG Total CO2 (22-28) mmol/L ABG O2 Saturation (95-98) % ABG Base Excess (-2.0-3.0) mmol/L ABG Hemoglobin (11.7-17.4) g/dL ABG Carboxyhemoglobin (0.5-1.5) % POC ABG HHb (Measured) (0.0-5.0) % ABG Methemoglobin (0.0-3.0) % Scout Test A-a O2 Difference mm/Hg Respiratory Index Hgb O2 Saturation (95.0-98.0) % Vent Mode Mechanical Rate FiO2 % Tidal Volume PEEP Sodium (132-148) mmol/L Potassium (3.6-5.2) mmol/L Chloride (98-107) mmol/L Carbon Dioxide (22-30) mmol/L Anion Gap (10-20) BUN (7-17) mg/dL Creatinine (0.7-1.2) mg/dL Est GFR ( Amer) Est GFR (Non-Af Amer) POC Glucose (mg/dL) 126 H 153 H (65-110) mg/dL Random Glucose (65-105) mg/dL Calcium (8.6-10.4) mg/dl Phosphorus (2.5-4.5) mg/dL Magnesium (1.6-2.3) mg/dL Total Bilirubin (0.2-1.3) mg/dL AST (14-36) U/L ALT (9-52) U/L Alkaline Phosphatase (38-126) U/L Total Protein (6.3-8.3) g/dL Albumin (3.5-5.0) g/dL Globulin (2.2-3.9) gm/dL Albumin/Globulin Ratio (1.0-2.1) Random Vancomycin ug/mL 05/10/18 Range/Units 11:55 WBC (4.8-10.8) K/uL RBC (3.80-5.20) Mil/uL Hgb (11.0-16.0) g/dL Hct (34.0-47.0) % MCV (81.0-99.0) fL MCH (27.0-31.0) pg MCHC (33.0-37.0) g/dL RDW (11.5-14.5) % Plt Count (130-400) K/uL MPV (7.2-11.7) fL Neut % (Auto) (50.0-75.0) % Lymph % (Auto) (20.0-40.0) % [place] % (Auto) (0.0-10.0) % Eos % (Auto) (0.0-4.0) % Baso % (Auto) (0.0-2.0) % Neut # (Auto) (1.8-7.0) K/uL Lymph # (Auto) (1.0-4.3) K/uL [place] # (Auto) (0.0-0.8) K/uL Eos # (Auto) (0.0-0.7) K/uL Baso # (Auto) (0.0-0.2) K/uL Neutrophils % (Manual) (50-75) % Band Neutrophils % (0-2) % Lymphocytes % (Manual) (20-40) % Monocytes % (Manual) (0-10) % Eosinophils % (Manual) (0-4) % Nucleated RBC % (0-0) % Toxic Granulation Platelet Estimate (NORMAL) Large Platelets Polychromasia Hypochromasia (manual) Poikilocytosis (manual Anisocytosis (manual) Ovalocytes Sushil Cells APTT (21-34) SECONDS Puncture Site pCO2 (35-45) mm/Hg pO2 (80-100) mm/Hg HCO3 (21-28) mmol/L ABG pH (7.35-7.45) ABG Total CO2 (22-28) mmol/L ABG O2 Saturation (95-98) % ABG Base Excess (-2.0-3.0) mmol/L ABG Hemoglobin (11.7-17.4) g/dL ABG Carboxyhemoglobin (0.5-1.5) % POC ABG HHb (Measured) (0.0-5.0) % ABG Methemoglobin (0.0-3.0) % Scout Test A-a O2 Difference mm/Hg Respiratory Index Hgb O2 Saturation (95.0-98.0) % Vent Mode Mechanical Rate FiO2 % Tidal Volume PEEP Sodium (132-148) mmol/L Potassium (3.6-5.2) mmol/L Chloride (98-107) mmol/L Carbon Dioxide (22-30) mmol/L Anion Gap (10-20) BUN (7-17) mg/dL Creatinine (0.7-1.2) mg/dL Est GFR ( Amer) Est GFR (Non-Af Amer) POC Glucose (mg/dL) 173 H (65-110) mg/dL Random Glucose (65-105) mg/dL Calcium (8.6-10.4) mg/dl Phosphorus (2.5-4.5) mg/dL Magnesium (1.6-2.3) mg/dL Total Bilirubin (0.2-1.3) mg/dL AST (14-36) U/L ALT (9-52) U/L Alkaline Phosphatase (38-126) U/L Total Protein (6.3-8.3) g/dL Albumin (3.5-5.0) g/dL Globulin (2.2-3.9) gm/dL Albumin/Globulin Ratio (1.0-2.1) Random Vancomycin ug/mL Laboratory Results - last 24 hr 05/10/18 05/10/18 05/10/18 11:55 15:42 19:30 WBC RBC Hgb Hct MCV MCH MCHC RDW Plt Count MPV Neut % (Auto) Lymph % (Auto) [place] % (Auto) Eos % (Auto) Baso % (Auto) Neut # (Auto) Lymph # (Auto) [place] # (Auto) Eos # (Auto) Baso # (Auto) Neutrophils % (Manual) Band Neutrophils % Lymphocytes % (Manual) Monocytes % (Manual) Eosinophils % (Manual) Nucleated RBC % Toxic Granulation Platelet Estimate Large Platelets Polychromasia Hypochromasia (manual) Poikilocytosis (manual Anisocytosis (manual) Ovalocytes Sushil Cells APTT Puncture Site pCO2 pO2 HCO3 ABG pH ABG Total CO2 ABG O2 Saturation ABG Base Excess ABG Hemoglobin ABG Carboxyhemoglobin POC ABG HHb (Measured) ABG Methemoglobin Scout Test A-a O2 Difference Respiratory Index Hgb O2 Saturation Vent Mode Mechanical Rate FiO2 Tidal Volume PEEP Sodium Potassium Chloride Carbon Dioxide Anion Gap BUN Creatinine Est GFR ( Amer) Est GFR (Non-Af Amer) POC Glucose (mg/dL) 173 H 153 H 126 H Random Glucose Calcium Phosphorus Magnesium Total Bilirubin AST ALT Alkaline Phosphatase Total Protein Albumin Globulin Albumin/Globulin Ratio Random Vancomycin 05/10/18 05/10/18 05/10/18 23:10 23:10 23:10 WBC 15.0 H RBC 3.76 L Hgb 11.1 Hct 32.9 L MCV 87.4 MCH 29.6 MCHC 33.8 RDW 17.7 H Plt Count 123 L MPV 8.2 Neut % (Auto) 86.2 H Lymph % (Auto) 7.7 L [place] % (Auto) 4.9 Eos % (Auto) 0.8 Baso % (Auto) 0.4 Neut # (Auto) 12.9 H Lymph # (Auto) 1.2 [place] # (Auto) 0.7 Eos # (Auto) 0.1 Baso # (Auto) 0.1 Neutrophils % (Manual) 77 H Band Neutrophils % 16 H* Lymphocytes % (Manual) 5 L Monocytes % (Manual) 2 Eosinophils % (Manual) Nucleated RBC % 1 H Toxic Granulation Platelet Estimate Slightly decreased L Large Platelets Polychromasia Hypochromasia (manual) Poikilocytosis (manual Slight Anisocytosis (manual) Slight Ovalocytes Fenton Cells APTT 25 Puncture Site pCO2 pO2 HCO3 ABG pH ABG Total CO2 ABG O2 Saturation ABG Base Excess ABG Hemoglobin ABG Carboxyhemoglobin POC ABG HHb (Measured) ABG Methemoglobin Scout Test A-a O2 Difference Respiratory Index Hgb O2 Saturation Vent Mode Mechanical Rate FiO2 Tidal Volume PEEP Sodium 158 H Potassium 3.0 L Chloride 126 H Carbon Dioxide 23 Anion Gap 12 BUN 35 H Creatinine 1.1 Est GFR ( Amer) 57 Est GFR (Non-Af Amer) 47 POC Glucose (mg/dL) Random Glucose 137 H Calcium 8.4 L Phosphorus 2.8 Magnesium 1.8 Total Bilirubin 0.8 AST 804 H D ALT 868 H D Alkaline Phosphatase 60 Total Protein 4.8 L Albumin 2.4 L Globulin 2.3 Albumin/Globulin Ratio 1.0 Random Vancomycin 05/10/18 05/11/18 05/11/18 23:41 04:12 05:27 WBC RBC Hgb Hct MCV MCH MCHC RDW Plt Count MPV Neut % (Auto) Lymph % (Auto) [place] % (Auto) Eos % (Auto) Baso % (Auto) Neut # (Auto) Lymph # (Auto) [place] # (Auto) Eos # (Auto) Baso # (Auto) Neutrophils % (Manual) Band Neutrophils % Lymphocytes % (Manual) Monocytes % (Manual) Eosinophils % (Manual) Nucleated RBC % Toxic Granulation Platelet Estimate Large Platelets Polychromasia Hypochromasia (manual) Poikilocytosis (manual Anisocytosis (manual) Ovalocytes Fenton Cells APTT Puncture Site R bra pCO2 32 L pO2 166 H HCO3 24.6 ABG pH 7.46 H ABG Total CO2 23.8 ABG O2 Saturation 99.2 H ABG Base Excess -0.4 ABG Hemoglobin 12.1 ABG Carboxyhemoglobin 1.3 POC ABG HHb (Measured) 0.8 ABG Methemoglobin 1.3 Scout Test Na A-a O2 Difference 151.0 Respiratory Index 0.9 Hgb O2 Saturation 96.6 Vent Mode Prvc Mechanical Rate 16 FiO2 50.0 Tidal Volume 400 PEEP 5 Sodium Potassium Chloride Carbon Dioxide Anion Gap BUN Creatinine Est GFR ( Amer) Est GFR (Non-Af Amer) POC Glucose (mg/dL) 172 H 127 H Random Glucose Calcium Phosphorus Magnesium Total Bilirubin AST ALT Alkaline Phosphatase Total Protein Albumin Globulin Albumin/Globulin Ratio Random Vancomycin 05/11/18 05/11/18 05/11/18 06:36 06:36 06:36 WBC 17.8 H RBC 4.02 Hgb 12.0 Hct 35.3 MCV 87.9 MCH 30.0 MCHC 34.1 RDW 18.2 H Plt Count 135 MPV 8.6 Neut % (Auto) 86.5 H Lymph % (Auto) 8.3 L [place] % (Auto) 4.2 Eos % (Auto) 0.7 Baso % (Auto) 0.3 Neut # (Auto) 15.4 H Lymph # (Auto) 1.5 [place] # (Auto) 0.7 Eos # (Auto) 0.1 Baso # (Auto) 0.1 Neutrophils % (Manual) 76 H Band Neutrophils % 12 H* Lymphocytes % (Manual) 7 L Monocytes % (Manual) 3 Eosinophils % (Manual) 2 Nucleated RBC % Toxic Granulation Present Platelet Estimate Normal Large Platelets Present Polychromasia Slight Hypochromasia (manual) Slight Poikilocytosis (manual Slight Anisocytosis (manual) Moderate Ovalocytes Slight Sushil Cells Slight APTT Puncture Site pCO2 pO2 HCO3 ABG pH ABG Total CO2 ABG O2 Saturation ABG Base Excess ABG Hemoglobin ABG Carboxyhemoglobin POC ABG HHb (Measured) ABG Methemoglobin Scout Test A-a O2 Difference Respiratory Index Hgb O2 Saturation Vent Mode Mechanical Rate FiO2 Tidal Volume PEEP Sodium 158 H Potassium 3.4 L Chloride 124 H Carbon Dioxide 24 Anion Gap 12 BUN 29 H Creatinine 1.0 Est GFR ( Amer) > 60 Est GFR (Non-Af Amer) 53 POC Glucose (mg/dL) Random Glucose 123 H Calcium 8.8 Phosphorus 2.3 L Magnesium 1.8 Total Bilirubin 0.8 AST 704 H ALT 931 H Alkaline Phosphatase 72 Total Protein 5.4 L Albumin 2.9 L D Globulin 2.5 Albumin/Globulin Ratio 1.1 Random Vancomycin 8.0 05/11/18 07:24 WBC RBC Hgb Hct MCV MCH MCHC RDW Plt Count MPV Neut % (Auto) Lymph % (Auto) [place] % (Auto) Eos % (Auto) Baso % (Auto) Neut # (Auto) Lymph # (Auto) [place] # (Auto) Eos # (Auto) Baso # (Auto) Neutrophils % (Manual) Band Neutrophils % Lymphocytes % (Manual) Monocytes % (Manual) Eosinophils % (Manual) Nucleated RBC % Toxic Granulation Platelet Estimate Large Platelets Polychromasia Hypochromasia (manual) Poikilocytosis (manual Anisocytosis (manual) Ovalocytes Fenton Cells APTT Puncture Site pCO2 pO2 HCO3 ABG pH ABG Total CO2 ABG O2 Saturation ABG Base Excess ABG Hemoglobin ABG Carboxyhemoglobin POC ABG HHb (Measured) ABG Methemoglobin Scout Test A-a O2 Difference Respiratory Index Hgb O2 Saturation Vent Mode Mechanical Rate FiO2 Tidal Volume PEEP Sodium Potassium Chloride Carbon Dioxide Anion Gap BUN Creatinine Est GFR ( Amer) Est GFR (Non-Af Amer) POC Glucose (mg/dL) 170 H Random Glucose Calcium Phosphorus Magnesium Total Bilirubin AST ALT Alkaline Phosphatase Total Protein Albumin Globulin Albumin/Globulin Ratio Random Vancomycin Fingerstick Blood Sugar Results: 170 Review of Systems - Review of Systems Systems not reviewed;Unavailable: Intubated Critical Care Progress Note - Nutrition Nutrition: Nutrition Category Date Time Status NPO Diet [DIET] Diets 05/09/18 Breakfast Active Assessment/Plan - Assessment and Plan (Free Text) Assessment: This is an 87 year old female with past medical history HTN, CHF, CAD, COPD, and DM2 who presented with altered mental status and was found to be septic and hyperglycemic. Admitted to ICU for sepsis/septic shock requiring pressors and s/p intubation. Currently off pressors and sedation, awake and alert, following simple commands, pending CPAP/PS trial to determine if can be extubated. Plan: Neuro: - intubated but off sedation, waking up and following simple commands - Anoxic brain injury, pending CT head and EEG when stable - maintain normothermia Cardio: - pressures improved, maintaining MAP > 65, now off pressors hypertensive this AM, limited options due to multiple antiHTN med allergies, given labetalol IV x1, will monitor BP - fluid resucitation to keep CVP between 8-12 - Risk of CAD/Type 2 [place] - trops elevated at 0.34, repeat trop pending - most recent EKG and prior EKGs reviewed, last EKG notable for ST depressions in I, aVL, V2-6, sinus tachy to 105, and prolonged QTc HR 80's-110's this AM continue PRN verapamil for tachycardia - not a candidate for anticoag due to GI bleed Pulm: - Hypoxic respiratory failure s/p intubation - ABG today reviewed and compared to prior, notable for improved resp alkalosis/metabolic acidosis - CXR today reviewed and compared to prior, notable for increased patchiness of RUL, possible infiltrate - Tolerated PS/CPAP trial well initially, but when falling back asleep, poor volumes, so not safe to extubate at this time, will trial again tomorrow GI: - S/p Acute blood loss anemia 2/2 GI bleed, now stable - Hgb stable at 12 (was 11.1. 12.9 prior to that) - remains on protonix drip - Dr Dye recommending CT angio to localize bleed for embolization - Dr Black consulted, appreciate recs; GI bleed stabilized, no active bleeding, no indication for surgery at this time - transaminitis likely due to shock liver, continues to improve - monitor LFTs, avoid hepatotoxic drugs Endo: - Metabolic Acidosis, likely due to DKA - insulin drip discontinued - Hgba1c 6.5, TSH 0.29 (low) Renal: - Acute Renal Failure likely 2/2 septic shock, Cr remains 1 - approximately 1L UOP in last 24 hrs, goal is 0.5ml/kg/hr - monitor and replete electrolytes as needed ID: - Septic shock on arrival (Febrile, tachycardic, tachypneic, pressors required) - Currently on Cipro for abx as per ID Dispo: ICU, tolerating PS well, pending repeat trial tomorrow for possible extubation FEN: NPO, Tube feeds Access: Peripheral IVs, TLC, ETT, NGT Consults: ID, GI, Surg, Cardio, IR, Palliative Ppx: Protonix drip covers for GI, SCDs for DVT (avoid AC given GI bleed) Code Status: unknown, so defaults to FULL Patient seen, reviewed, and discussed with attending, Dr. Josiah Dennis <Srinath Dennis - Last Filed: 05/16/18 19:32> CCU Objective - Vital Signs / Intake & Output Vital Signs (Last 4 hours): Vital Signs Temp Pulse Resp BP Pulse Ox 05/16/18 19:00 130/55 L 05/16/18 18:59 76 27 H 100 05/16/18 18:00 87 21 136/61 100 05/16/18 17:00 97 H 30 H 135/62 99 05/16/18 16:00 99.0 F 95 H 24 144/70 100 Intake and Output (Last 8hrs): Intake & Output 05/16/18 05/16/18 05/16/18 06:59 14:59 22:59 Intake Total 515.0 480 400 Output Total 300 101 101 Balance 215.0 379 299 Weight 104 lb 11.2 oz Intake: Intake, IV Amount 100.0 100 Right Proximal Port 100.0 100 Internal Jugular Tube Feeding 415 480 300 Output: Urine 300 100 100 Urine, Voided 300 100 100 Urine/Stool Mix 1 1 Other: # Voids Urine, Voided 0 0 # Bowel Movements 0 1 - Medications Active Medications: Active Medications Generic Name Dose Route Start Last Admin Trade Name Freq PRN Reason Stop Dose Admin Albuterol/Ipratropium 3 ml 05/07/18 21:18 05/11/18 15:30 Duoneb 3 Mg/0.5 Mg (3 Ml) Ud INH 3 ml RQ6 PRN Administration Cough Albuterol/Ipratropium 3 ml 05/11/18 20:00 05/16/18 19:12 Duoneb 3 Mg/0.5 Mg (3 Ml) Ud INH 3 ml RQ6 JUDY Administration Diltiazem HCl 30 mg 05/12/18 10:00 05/16/18 17:41 Cardizem PO 30 mg QID JUDY Administration Ciprofloxacin 100 mls @ 67 mls/hr 05/09/18 17:00 05/16/18 16:04 Cipro 200mg/100ml D5w IVPB 67 mls/hr Q12H JUDY Administration Protocol Vancomycin/Sodium Chloride 1 gm in 200 mls @ 133.333 mls/hr 05/11/18 19:30 05/14/18 18:37 Vancomycin 1 Gm/Ns 200 Ml IVPB 05/16/18 19:31 133.333 mls/hr Q24H JUDY Administration Protocol Insulin Aspart 0 unit 05/12/18 00:00 05/16/18 19:20 Novolog SC 8 units Q6 JUDY Administration Protocol Metoprolol Tartrate 50 mg 05/12/18 10:00 05/16/18 17:41 Lopressor PO 50 mg BID JUDY Administration Neomycin/Polymyxin/Bacitracin 0 gm 05/10/18 10:00 05/16/18 17:42 Neosporin Triple Antibiotic Oint TOP 1 applic BID JUDY Administration Nystatin 1 applic 05/09/18 18:00 05/16/18 17:42 Nystop Topical Powder TOP 1 applic BID JUDY Administration Pantoprazole Sodium 40 mg 05/13/18 07:45 05/16/18 06:46 Protonix Inj IVP 40 mg Q12H JUDY Administration Rosuvastatin Calcium 10 mg 05/07/18 22:00 05/15/18 22:00 Crestor PO 10 mg HS JUDY Administration - Patient Studies Lab Studies: Microbiology Studies 05/15/18 Unknown Gram Stain - Final Sputum Lab Studies 05/16/18 05/16/18 05/16/18 Range/Units 06:11 06:11 05:28 WBC 10.6 (4.8-10.8) K/uL RBC 3.39 L (3.80-5.20) Mil/uL Hgb 10.3 L (11.0-16.0) g/dL Hct 30.3 L (34.0-47.0) % MCV 89.2 (81.0-99.0) fL MCH 30.4 (27.0-31.0) pg MCHC 34.1 (33.0-37.0) g/dL RDW 17.7 H (11.5-14.5) % Plt Count 231 (130-400) K/uL MPV 8.5 (7.2-11.7) fL Neut % (Auto) 75.6 H (50.0-75.0) % Lymph % (Auto) 11.2 L (20.0-40.0) % [place] % (Auto) 9.5 (0.0-10.0) % Eos % (Auto) 3.1 (0.0-4.0) % Baso % (Auto) 0.6 (0.0-2.0) % Neut # (Auto) 8.0 H (1.8-7.0) K/uL Lymph # (Auto) 1.2 (1.0-4.3) K/uL [place] # (Auto) 1.0 H (0.0-0.8) K/uL Eos # (Auto) 0.3 (0.0-0.7) K/uL Baso # (Auto) 0.1 (0.0-0.2) K/uL Puncture Site pCO2 (35-45) mm/Hg pO2 (80-100) mm/Hg HCO3 (21-28) mmol/L ABG pH (7.35-7.45) ABG Total CO2 (22-28) mmol/L ABG O2 Saturation (95-98) % ABG Base Excess (-2.0-3.0) mmol/L ABG Hemoglobin (11.7-17.4) g/dL ABG Carboxyhemoglobin (0.5-1.5) % POC ABG HHb (Measured) (0.0-5.0) % ABG Methemoglobin (0.0-3.0) % Scout Test A-a O2 Difference mm/Hg Respiratory Index Hgb O2 Saturation (95.0-98.0) % Vent Mode Mechanical Rate FiO2 % Tidal Volume PEEP Sodium 142 (132-148) mmol/L Potassium 3.8 (3.6-5.2) mmol/L Chloride 107 (98-107) mmol/L Carbon Dioxide 26 (22-30) mmol/L Anion Gap 12 (10-20) BUN 19 H (7-17) mg/dL Creatinine 0.8 (0.7-1.2) mg/dL Est GFR ( Amer) > 60 Est GFR (Non-Af Amer) > 60 POC Glucose (mg/dL) 231 H (65-110) mg/dL Random Glucose 237 H (65-105) mg/dL Calcium 9.1 (8.6-10.4) mg/dl Phosphorus 2.8 (2.5-4.5) mg/dL Magnesium 1.8 (1.6-2.3) mg/dL Total Bilirubin 0.4 (0.2-1.3) mg/dL AST 18 (14-36) U/L ALT 89 H D (9-52) U/L Alkaline Phosphatase 63 (38-126) U/L Total Protein 5.7 L (6.3-8.3) g/dL Albumin 3.0 L (3.5-5.0) g/dL Globulin 2.7 (2.2-3.9) gm/dL Albumin/Globulin Ratio 1.1 (1.0-2.1) 05/16/18 05/15/18 05/15/18 Range/Units 04:30 23:50 11:24 WBC (4.8-10.8) K/uL RBC (3.80-5.20) Mil/uL Hgb (11.0-16.0) g/dL Hct (34.0-47.0) % MCV (81.0-99.0) fL MCH (27.0-31.0) pg MCHC (33.0-37.0) g/dL RDW (11.5-14.5) % Plt Count (130-400) K/uL MPV (7.2-11.7) fL Neut % (Auto) (50.0-75.0) % Lymph % (Auto) (20.0-40.0) % [place] % (Auto) (0.0-10.0) % Eos % (Auto) (0.0-4.0) % Baso % (Auto) (0.0-2.0) % Neut # (Auto) (1.8-7.0) K/uL Lymph # (Auto) (1.0-4.3) K/uL [place] # (Auto) (0.0-0.8) K/uL Eos # (Auto) (0.0-0.7) K/uL Baso # (Auto) (0.0-0.2) K/uL Puncture Site Rr pCO2 30 L (35-45) mm/Hg pO2 144 H (80-100) mm/Hg HCO3 26.7 (21-28) mmol/L ABG pH 7.52 H (7.35-7.45) ABG Total CO2 25.4 (22-28) mmol/L ABG O2 Saturation 99.0 H (95-98) % ABG Base Excess 2.3 (-2.0-3.0) mmol/L ABG Hemoglobin 12.2 (11.7-17.4) g/dL ABG Carboxyhemoglobin 1.7 H (0.5-1.5) % POC ABG HHb (Measured) 1.0 (0.0-5.0) % ABG Methemoglobin 1.5 (0.0-3.0) % Scout Test Pos A-a O2 Difference 32.0 mm/Hg Respiratory Index 0.2 Hgb O2 Saturation 95.8 (95.0-98.0) % Vent Mode Prvc Mechanical Rate 16 FiO2 30.0 % Tidal Volume 400 PEEP 5 Sodium (132-148) mmol/L Potassium (3.6-5.2) mmol/L Chloride (98-107) mmol/L Carbon Dioxide (22-30) mmol/L Anion Gap (10-20) BUN (7-17) mg/dL Creatinine (0.7-1.2) mg/dL Est GFR ( Amer) Est GFR (Non-Af Amer) POC Glucose (mg/dL) 259 H 251 H (65-110) mg/dL Random Glucose (65-105) mg/dL Calcium (8.6-10.4) mg/dl Phosphorus (2.5-4.5) mg/dL Magnesium (1.6-2.3) mg/dL Total Bilirubin (0.2-1.3) mg/dL AST (14-36) U/L ALT (9-52) U/L Alkaline Phosphatase (38-126) U/L Total Protein (6.3-8.3) g/dL Albumin (3.5-5.0) g/dL Globulin (2.2-3.9) gm/dL Albumin/Globulin Ratio (1.0-2.1) Laboratory Results - last 24 hr 05/15/18 05/15/18 05/16/18 11:24 23:50 04:30 WBC RBC Hgb Hct MCV MCH MCHC RDW Plt Count MPV Neut % (Auto) Lymph % (Auto) [place] % (Auto) Eos % (Auto) Baso % (Auto) Neut # (Auto) Lymph # (Auto) [place] # (Auto) Eos # (Auto) Baso # (Auto) Puncture Site Rr pCO2 30 L pO2 144 H HCO3 26.7 ABG pH 7.52 H ABG Total CO2 25.4 ABG O2 Saturation 99.0 H ABG Base Excess 2.3 ABG Hemoglobin 12.2 ABG Carboxyhemoglobin 1.7 H POC ABG HHb (Measured) 1.0 ABG Methemoglobin 1.5 Scout Test Pos A-a O2 Difference 32.0 Respiratory Index 0.2 Hgb O2 Saturation 95.8 Vent Mode Prvc Mechanical Rate 16 FiO2 30.0 Tidal Volume 400 PEEP 5 Sodium Potassium Chloride Carbon Dioxide Anion Gap BUN Creatinine Est GFR ( Amer) Est GFR (Non-Af Amer) POC Glucose (mg/dL) 251 H 259 H Random Glucose Calcium Phosphorus Magnesium Total Bilirubin AST ALT Alkaline Phosphatase Total Protein Albumin Globulin Albumin/Globulin Ratio 05/16/18 05/16/18 05/16/18 05:28 06:11 06:11 WBC 10.6 RBC 3.39 L Hgb 10.3 L Hct 30.3 L MCV 89.2 MCH 30.4 MCHC 34.1 RDW 17.7 H Plt Count 231 MPV 8.5 Neut % (Auto) 75.6 H Lymph % (Auto) 11.2 L [place] % (Auto) 9.5 Eos % (Auto) 3.1 Baso % (Auto) 0.6 Neut # (Auto) 8.0 H Lymph # (Auto) 1.2 [place] # (Auto) 1.0 H Eos # (Auto) 0.3 Baso # (Auto) 0.1 Puncture Site pCO2 pO2 HCO3 ABG pH ABG Total CO2 ABG O2 Saturation ABG Base Excess ABG Hemoglobin ABG Carboxyhemoglobin POC ABG HHb (Measured) ABG Methemoglobin Scout Test A-a O2 Difference Respiratory Index Hgb O2 Saturation Vent Mode Mechanical Rate FiO2 Tidal Volume PEEP Sodium 142 Potassium 3.8 Chloride 107 Carbon Dioxide 26 Anion Gap 12 BUN 19 H Creatinine 0.8 Est GFR ( Amer) > 60 Est GFR (Non-Af Amer) > 60 POC Glucose (mg/dL) 231 H Random Glucose 237 H Calcium 9.1 Phosphorus 2.8 Magnesium 1.8 Total Bilirubin 0.4 AST 18 ALT 89 H D Alkaline Phosphatase 63 Total Protein 5.7 L Albumin 3.0 L Globulin 2.7 Albumin/Globulin Ratio 1.1 Critical Care Progress Note - Nutrition Nutrition: Nutrition Category Date Time Status NPO Diet [DIET] Diets 05/09/18 Breakfast Active Assessment/Plan - Assessment and Plan (Free Text) Plan: Above patient seen and examined at bedside. 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 - Date & Time Date: 05/11/18 Time: 20:00
--- NOTE | 2018-05-11 13:31 | CP.PCM.PN ---
Subjective - Date & Time of Evaluation Date of Evaluation: 05/11/18 Time of Evaluation: 10:00 - Subjective Subjective: Surgery progress note for Dr. Black Patient seen and examined at bedside. patient had no further bloody bowel movements and hemodynamics and hemoglobin are stable this AM. patient more alert and able to answer yes or no to questions, denies any pain. Objective - Vital Signs/Intake and Output Vital Signs (last 24 hours): Temp Pulse Resp BP Pulse Ox 98.5 F 96 H 30 H 127/70 100 05/11/18 12:00 05/11/18 12:01 05/11/18 12:01 05/11/18 12:01 05/11/18 12:01 Intake and Output: 05/11/18 05/11/18 06:59 18:59 Intake Total 1155 485 Output Total 800 Balance 355 485 - Medications Medications: Current Medications Albuterol/Ipratropium (Duoneb 3 Mg/0.5 Mg (3 Ml) Ud) 3 ml INH RQ6 PRN PRN Reason: Cough Dextrose (Dextrose 50% Inj) 0 ml IV STAT PRN; Protocol PRN Reason: Hypoglycemia Protocol Dextrose (Glutose 15) 0 gm PO ONCE PRN; Protocol PRN Reason: Hypoglycemia Protocol Glucagon (Glucagen Diagnostic Kit) 0 mg IM STAT PRN; Protocol PRN Reason: Hypoglycemia Protocol Dextrose (Dextrose 5% In Water 1000 Ml) 1,000 mls @ 0 mls/hr IV .Q0M PRN; Protocol PRN Reason: Hypoglycemia Protocol Pantoprazole Sodium 80 mg/ (Sodium Chloride) 100 mls @ 10 mls/hr IVPB .Q10H JUDY Last Admin: 05/11/18 10:42 Dose: 10 mls/hr Metronidazole (Flagyl) 500 mg in 100 mls @ 100 mls/hr IVPB Q8H JUDY; Protocol Last Admin: 05/11/18 13:03 Dose: 100 mls/hr Ciprofloxacin (Cipro 200mg/100ml D5w) 100 mls @ 67 mls/hr IVPB Q12H JUDY; Protocol Last Admin: 05/11/18 04:53 Dose: 67 mls/hr Insulin Aspart (Novolog) 0 unit SC Q4 JUDY; Protocol Last Admin: 05/11/18 12:00 Dose: Not Given Neomycin/Polymyxin/Bacitracin (Neosporin Triple Antibiotic Oint) 0 gm TOP BID [facility] Last Admin: 05/11/18 10:00 Dose: Not Given Nystatin (Nystop Topical Powder) 1 applic TOP BID [facility] Last Admin: 05/11/18 10:36 Dose: 1 applic Rosuvastatin Calcium (Crestor) 10 mg PO HS [facility] Last Admin: 05/10/18 22:00 Dose: Not Given Verapamil HCl (Verapamil Inj) 2.5 mg IVP Q4 PRN PRN Reason: Heart rate Last Admin: 05/11/18 06:26 Dose: 2.5 mg - Labs Labs: 05/11/18 06:36 05/11/18 06:36 PT 18.4 SECONDS (9.7-12.2) H 05/09/18 09:10 INR 1.7 05/09/18 09:10 APTT 25 SECONDS (21-34) 05/10/18 23:10 - Constitutional Appears: Well, Non-toxic, No Acute Distress - Head Exam Head Exam: ATRAUMATIC, NORMOCEPHALIC - Eye Exam Eye Exam: Normal appearance. absent: Conjunctival injection, Scleral icterus - ENT Exam ENT Exam: Mucous Membranes Moist, Normal Oropharynx - Respiratory Exam Respiratory Exam: absent: Accessory Muscle Use, Respiratory Distress Additional comments: mechanically ventilated - Cardiovascular Exam Cardiovascular Exam: Tachycardia - GI/Abdominal Exam GI & Abdominal Exam: Soft. absent: Distended, Tenderness - Extremities Exam Extremities Exam: absent: Calf Tenderness, Pedal Edema, Tenderness - Neurological Exam Neurological Exam: Alert, Awake - Psychiatric Exam Psychiatric exam: Normal Affect, Normal Mood - Skin Skin Exam: Dry, Normal Color, Warm Assessment and Plan - Assessment and Plan (Free Text) Assessment: 87F with bleeding duodenal ulcer s/p EGD with cautery Plan: no general surgery intervention indicated at this time--patient hgb is stable with no sign of continued GI bleed F/U GI recs continue protonix Reach out to surgical team for any further questions or concerns Discussed with Dr. Black, who agrees with above Sabrina Osorio, PGY2
--- NOTE | 2018-05-11 17:02 | CT ---
PROCEDURE: CT Abdomen and Pelvis without Oral or IV contrast. HISTORY: sepsis, evaluate intra-abdominal infection COMPARISON: Chest x-ray performed 05/11/18 TECHNIQUE: Contiguous axial images of the abdomen and pelvis. No oral or IV contrast administered. Coronal and Sagittal reformats generated and reviewed. Radiation dose: Total exam DLP = 891.62 mGy-cm. This CT exam was performed using one or more of the following dose reduction techniques: Automated exposure control, adjustment of the mA and/or kV according to patient size, and/or use of iterative reconstruction technique. FINDINGS: There is limited evaluation of the solid organs without the administration of IV contrast. LOWER THORAX: Bibasilar [id number]-right infiltrates/atelectasis. Interstitial chronic markings. Cardiomegaly. Dense coronary artery calcifications. Partially imaged pacer wires. Median sternotomy wires. LIVER: Unremarkable unenhanced appearance. GALLBLADDER AND BILE DUCTS: Gallbladder distension with faint increased density along the dependent portion of the wall either calcification or layering tiny sludge/gallstones. PANCREAS: Pancreatic atrophy. SPLEEN: Unremarkable unenhanced appearance. ADRENALS: Bilateral adrenal gland hypertrophy. KIDNEYS AND URETERS: No hydronephrosis or obstructing renal calculus. Probable left renal cyst. Punctate bilateral renal calculi. BLADDER: The urinary bladder appears unremarkable. REPRODUCTIVE: Uterus is absent, presumably due to hysterectomy. APPENDIX: The appendix appears within normal limits of caliber. No secondary signs of acute appendicitis. BOWEL: The stomach is nondistended. Percutaneous gastrostomy tube. Lack of oral contrast limits evaluation for bowel pathology. The bowel loops appear within normal limits of caliber without evidence of intestinal obstruction. Fluid within the colon suggests diarrheal illness. Moderate bowel wall thickening particularly involving the distal transverse and left colon. Diverticulosis without CT evidence of acute diverticulitis. Small bowel appears mildly thick walled with moderate fluid distension. PERITONEUM: No significant free fluid. No definite free air. LYMPH NODES: No bulky lymphadenopathy identified. VASCULATURE: Dense atherosclerotic calcifications of the aorta and branches. No aortic aneurysm. BONES: Osseous demineralization. Severe degenerative changes of the spine and hips. Scoliosis. OTHER FINDINGS: None. IMPRESSION: Diverticulosis without CT evidence of acute diverticulitis. Mild bowel wall thickening of the transverse and left colon; correlate clinically for colitis. Fluid within the colon suggest diarrheal illness. Probable small bowel enteritis. Gallbladder distension with faint increased density along the dependent portion of the wall either calcification or layering tiny sludge/gallstones. Dense atherosclerotic calcifications of the abdominal aorta and branches. Bibasilar atelectasis/infiltrates. Chronic interstitial changes. Correlate for COPD. Percutaneous gastrostomy tube. Additional findings as above. Preliminary impression was provided by JESSICA Gruber.
--- NOTE | 2018-05-11 19:13 | CP.PCM.PN ---
Subjective - Date & Time of Evaluation Date of Evaluation: 05/11/18 Time of Evaluation: 15:00 - Subjective Subjective: dictated Objective - Vital Signs/Intake and Output Vital Signs (last 24 hours): Temp Pulse Resp BP Pulse Ox 98.7 F 119 H 17 154/70 H 100 05/11/18 16:00 05/11/18 19:01 05/11/18 19:01 05/11/18 19:01 05/11/18 19:01 Intake and Output: 05/11/18 05/12/18 18:59 06:59 Intake Total 935 40 Output Total 1 Balance 934 40 - Medications Medications: Current Medications Albuterol/Ipratropium (Duoneb 3 Mg/0.5 Mg (3 Ml) Ud) 3 ml INH RQ6 PRN PRN Reason: Cough Last Admin: 05/11/18 15:30 Dose: 3 ml Albuterol/Ipratropium (Duoneb 3 Mg/0.5 Mg (3 Ml) Ud) 3 ml INH RQ6 JUDY Dextrose (Dextrose 50% Inj) 0 ml IV STAT PRN; Protocol PRN Reason: Hypoglycemia Protocol Dextrose (Glutose 15) 0 gm PO ONCE PRN; Protocol PRN Reason: Hypoglycemia Protocol Glucagon (Glucagen Diagnostic Kit) 0 mg IM STAT PRN; Protocol PRN Reason: Hypoglycemia Protocol Dextrose (Dextrose 5% In Water 1000 Ml) 1,000 mls @ 0 mls/hr IV .Q0M PRN; Protocol PRN Reason: Hypoglycemia Protocol Pantoprazole Sodium 80 mg/ (Sodium Chloride) 100 mls @ 10 mls/hr IVPB .Q10H JUDY Last Admin: 05/11/18 10:42 Dose: 10 mls/hr Metronidazole (Flagyl) 500 mg in 100 mls @ 100 mls/hr IVPB Q8H JUDY; Protocol Last Admin: 05/11/18 13:03 Dose: 100 mls/hr Ciprofloxacin (Cipro 200mg/100ml D5w) 100 mls @ 67 mls/hr IVPB Q12H JUDY; Protocol Last Admin: 05/11/18 17:02 Dose: 67 mls/hr Insulin Aspart (Novolog) 0 unit SC Q6 JUDY; Protocol Neomycin/Polymyxin/Bacitracin (Neosporin Triple Antibiotic Oint) 0 gm TOP BID JUDY Last Admin: 05/11/18 17:03 Dose: 1 applic Nystatin (Nystop Topical Powder) 1 applic TOP BID JUDY Last Admin: 05/11/18 17:03 Dose: 1 applic Rosuvastatin Calcium (Crestor) 10 mg PO HS [facility] Last Admin: 05/10/18 22:00 Dose: Not Given Verapamil HCl (Verapamil Inj) 2.5 mg IVP Q4 PRN PRN Reason: Heart rate Last Admin: 05/11/18 06:26 Dose: 2.5 mg - Labs Labs: 05/11/18 06:36 05/11/18 06:36 PT 18.4 SECONDS (9.7-12.2) H 05/09/18 09:10 INR 1.7 05/09/18 09:10 APTT 25 SECONDS (21-34) 05/10/18 23:10
[2018-05-11] MEDS: Albuterol-Ipratrop 3 mg / 0.5 (3 ml) UD INH SCH (19:35)
[2018-05-11] MEDS: Vancomycin 1 gm/NS 200 ml 1 GM/200 ML BAG IVPB SCH (20:10)
--- NOTE | 2018-05-11 23:58 | PN ---
DATE: 05/11/2018 SUBJECTIVE: The patient was seen today. She still is in ICU. She is intubated, but the intensivists are trying CPAP. Her daughter was at the bedside, and she says her mom was awake and she was a little happy about it and still was intubated. She has had intubation in the past, so she is hoping that at this time also she makes it through and remains with a TLC. PHYSICAL EXAMINATION: VITAL SIGNS: Temperature was 98.7, heart rate of 119, blood pressure 154/70, respirations 17. HEENT: Head is atraumatic. NECK: Supple. LUNGS: Decreased breath sounds. HEART: S1 and S2, tachy. ABDOMEN: She has a GT tube site which still has some cellulitis and redness present. EXTREMITIES: Have edema present. LABORATORY DATA: White count increased to 17.8 today, hemoglobin 12, hematocrit 35.3, platelet count is 135 and is better. Bands are 12 today, segs are 76. ABG has noted oxygen saturation is 99.2. Sodium is 158, so she is very dry now. is 3.4, BUN is 29, creatinine 1. ASSESSMENT AND PLAN: Her vancomycin trough was 8, so we can give her one more dose of vancomycin. Wound culture is Klebsiella. We are giving Cipro. She is also on Flagyl. Chest x-ray was done today, and the chest x-ray shows the endotracheal tube terminates 2.3 cm over the renata. Right internal jugular is okay. Patchy right upper lobe infiltrate. She does have a patchy upper lobe infiltrate. Her abdomen and pelvic CT was done yesterday, which shows diverticulosis without evidence of acute diverticulitis, mild bowel wall thickening of the transverse and left colon, correlate clinically for colitis, fluid when colon suggests diarrheal disease, so there may be colitis. I want to see her kidney function as she did have kidney with creatinine is 1 now and her liver enzymes are coming down as she did have some ischemic liver, so we will give her one dose of vancomycin today and we will follow. Val Jones MD [facility] # [id number]
[2018-05-12] MEDS: Albuterol-Ipratrop 3 mg / 0.5 (3 ml) UD INH SCH ×4 (01:36→19:20)
--- NOTE | 2018-05-12 01:38 | CP.PCM.PN ---
Subjective - Date & Time of Evaluation Date of Evaluation: 05/11/18 Time of Evaluation: 10:00 - Subjective Subjective: Covering for Dr Fernandez Pt seen with family at bedside remains intubated +leucocytosis tachycardic pre-renal septic Objective - Vital Signs/Intake and Output Vital Signs (last 24 hours): Temp Pulse Resp BP Pulse Ox 99.3 F 116 H 16 129/52 L 100 05/11/18 20:00 05/11/18 20:01 05/11/18 20:01 05/11/18 20:01 05/11/18 20:01 Intake and Output: 05/11/18 05/12/18 18:59 06:59 Intake Total 935 280 Output Total 1 100 Balance 934 180 - Medications Medications: Current Medications Albuterol/Ipratropium (Duoneb 3 Mg/0.5 Mg (3 Ml) Ud) 3 ml INH RQ6 PRN PRN Reason: Cough Last Admin: 05/11/18 15:30 Dose: 3 ml Albuterol/Ipratropium (Duoneb 3 Mg/0.5 Mg (3 Ml) Ud) 3 ml INH RQ6 JUDY Last Admin: 05/11/18 19:35 Dose: 3 ml Dextrose (Dextrose 50% Inj) 0 ml IV STAT PRN; Protocol PRN Reason: Hypoglycemia Protocol Dextrose (Glutose 15) 0 gm PO ONCE PRN; Protocol PRN Reason: Hypoglycemia Protocol Glucagon (Glucagen Diagnostic Kit) 0 mg IM STAT PRN; Protocol PRN Reason: Hypoglycemia Protocol Dextrose (Dextrose 5% In Water 1000 Ml) 1,000 mls @ 0 mls/hr IV .Q0M PRN; P rotocol PRN Reason: Hypoglycemia Protocol Pantoprazole Sodium 80 mg/ (Sodium Chloride) 100 mls @ 10 mls/hr IVPB .Q10H JUDY Last Admin: 05/11/18 23:48 Dose: 10 mls/hr Metronidazole (Flagyl) 500 mg in 100 mls @ 100 mls/hr IVPB Q8H JUDY; Protocol Last Admin: 05/11/18 21:58 Dose: 100 mls/hr Ciprofloxacin (Cipro 200mg/100ml D5w) 100 mls @ 67 mls/hr IVPB Q12H JUDY; Protocol Last Admin: 05/11/18 17:02 Dose: 67 mls/hr Vancomycin/Sodium Chloride (Vancomycin 1 Gm/Ns 200 Ml) 1 gm in 200 mls @ 133.3 33 mls/hr IVPB Q24H JUDY; Protocol Stop: 05/16/18 19:31 Last Admin: 05/11/18 20:10 Dose: 133.333 mls/hr Insulin Aspart (Novolog) 0 unit SC Q6 JUDY; Protocol Last Admin: 05/11/18 23:55 Dose: 4 units Neomycin/Polymyxin/Bacitracin (Neosporin Triple Antibiotic Oint) 0 gm TOP BID JUDY Last Admin: 05/11/18 17:03 Dose: 1 applic Nystatin (Nystop Topical Powder) 1 applic TOP BID JUDY Last Admin: 05/11/18 17:03 Dose: 1 applic Rosuvastatin Calcium (Crestor) 10 mg PO HS JUDY Last Admin: 05/11/18 21:56 Dose: 10 mg Verapamil HCl (Verapamil Inj) 2.5 mg IVP Q4 PRN PRN Reason: Heart rate Last Admin: 05/11/18 20:13 Dose: 2.5 mg - Labs Labs: 05/11/18 06:36 05/11/18 06:36 PT 18.4 SECONDS (9.7-12.2) H 05/09/18 09:10 INR 1.7 05/09/18 09:10 APTT 25 SECONDS (21-34) 05/10/18 23:10 - Constitutional Appears: Toxic, Chronically Ill - Eye Exam Eye Exam: absent: Scleral icterus - Neck Exam Neck Exam: Full ROM - Respiratory Exam Respiratory Exam: NORMAL BREATHING PATTERN - Cardiovascular Exam Cardiovascular Exam: Tachycardia, REGULAR RHYTHM - GI/Abdominal Exam GI & Abdominal Exam: Soft - Extremities Exam Extremities Exam: absent: Pedal Edema Assessment and Plan - Assessment and Plan (Free Text) Assessment: Sepsis DKA Dehydration Respiratory failure T2dm Plan: Cont meds ABtx nebulizer tx
[2018-05-12] MEDS: Ciprofloxacin 200mg/100ml D5W 100 ML IVPB SCH ×2 (04:16→17:20)
[2018-05-12 06:09] LABS: ABG ALLEN TEST POS; ARTERIAL BLOOD GAS HEMOGLOBIN 10.7 g/dL (11.7-17.4); ARTERIAL BLOOD GAS O2 SAT 98.8 % (95-98); ARTERIAL BLOOD GAS PCO2 29 mm/Hg (35-45); ARTERIAL BLOOD GAS PH 7.48 (7.35-7.45); ARTERIAL BLOOD GAS PO2 135 mm/Hg (80-100); ARTERIAL BLOOD GAS TCO2 22.5 mmol/L (22-28)
[2018-05-12] MEDS: metroNIDAZOLE IV 500 mg/100 ml 500 MG/100 ML BAG IVPB SCH ×3 (06:15→21:30)
[2018-05-12] MEDS: Pantoprazole 80 MG in Sodium Chloride 0.9% 100 ML IVPB SCH ×4 (06:16→21:26)
[2018-05-12 06:17] LABS: BASO % 0.2 % (0.0-2.0); EOS # 0.2 K/uL (0.0-0.7); EOS % 1.6 % (0.0-4.0); HEMOGLOBIN 10.6 g/dL (11.0-16.0); LYMPH # 1.2 K/uL (1.0-4.3); LYMPH % 8.7 % (20.0-40.0); MEAN CELL VOLUME 88.6 fL (81.0-99.0); MEAN CORPUSCULAR HEMOGLOBIN 29.5 pg (27.0-31.0); MEAN CORPUSCULAR HGB CONC 33.2 g/dL (33.0-37.0); MEAN PLATELET VOLUME 8.3 fL (7.2-11.7); MONO # 0.7 K/uL (0.0-0.8); MONO % 5.3 % (0.0-10.0); NEUT # 11.7 K/uL (1.8-7.0); NEUT % 84.2 % (50.0-75.0); NRBC % 0.8 % (0.0-2.0); PLATELET COUNT 122 K/uL (130-400); RBC 3.61 Mil/uL (3.80-5.20); RED CELL DISTRIBUTION WIDTH 17.9 % (11.5-14.5); WHITE BLOOD COUNT 13.9 K/uL (4.8-10.8)
[2018-05-12] MEDS: (Novolog) Insulin Aspart, Recombinant 100 u/ml 10 ml vial SC SCH ×3 (06:30→18:35)
[2018-05-12 06:43] LABS: ALB/GLOB RATIO 1.1 (1.0-2.1); ALBUMIN 2.6 g/dL (3.5-5.0); ALT/SGPT 520 U/L (9-52); AST/SGOT 143 U/L (14-36); BLOOD UREA NITROGEN 24 mg/dL (7-17); CALCIUM 8.8 mg/dl (8.6-10.4); GFR NON-AFRICAN AMERICAN 59
--- NOTE | 2018-05-12 08:57 | RAD ---
HISTORY: s/p intubation COMPARISON: Chest x-ray performed 05/11/18 TECHNIQUE: Chest, one view. FINDINGS: Tracheal tube terminates approximately 2 cm above the renata. Right IJ approach central venous catheter extends to the SVC. Numerous external wires and leads obscure evaluation of the underlying parenchyma. LUNGS: Hypoinflation. Prominent interstitial markings may reflect infection or edema. PLEURA: No significant pleural effusion identified. No definite pneumothorax . CARDIOVASCULAR: Median sternotomy wires with evidence of CABG. Heart size appears within normal limits. Ectatic aorta containing dense atherosclerotic calcifications. OSSEOUS STRUCTURES: Degenerative changes. Scoliosis. Osseous demineralization. VISUALIZED UPPER ABDOMEN: Unremarkable. OTHER FINDINGS: None. IMPRESSION: Support lines and tubes as above. Interstitial prominence may reflect infection or edema. The
[2018-05-12] MEDS: Bacitracin/Neomycin/Polymyxin Oint(30GM) TOP SCH ×2 (09:24→17:19)
[2018-05-12] MEDS ORDERED: Potassium Phosphate 15 MMOLE in Dextrose 5% In Water 250 ML IVPB ONE (10:00)
[2018-05-12 10:09] LABS: BANDS 8 % (0-2); LYMPHOCYTE 7 % (20-40); MONOCYTE 4 % (0-10); NEUTROPHIL 81 % (50-75); TOTAL CELLS COUNTED 100
[2018-05-12 10:25] LABS: PLATELET ESTIMATE SLIGHTLY DECREASED (NORMAL)
[2018-05-12 10:27] LABS: ANISOCYTOSIS MODERATE; TOXIC GRANULATION PRESENT
[2018-05-12 10:28] LABS: HYPOCHROMIC SLIGHT; LARGE PLATELETS PRESENT; POLYCHROMIC SLIGHT
--- NOTE | 2018-05-12 17:16 | CP.PCM.PN ---
Subjective - Date & Time of Evaluation Date of Evaluation: 05/12/18 Time of Evaluation: 16:45 - Subjective Subjective: f/u GI bleed. No reports of bleeding, RB, melena, hematemesis, hemoptysis, hematuria, Sz, tremor, Objective - Vital Signs/Intake and Output Vital Signs (last 24 hours): Temp Pulse Resp BP Pulse Ox 99.0 F 87 36 H 128/49 L 100 05/12/18 16:00 05/12/18 16:00 05/12/18 16:00 05/12/18 16:00 05/12/18 16:00 Intake and Output: 05/12/18 05/12/18 06:59 18:59 Intake Total 1040 740 Output Total 200 3 Balance 840 737 - Medications Medications: Current Medications Albuterol/Ipratropium (Duoneb 3 Mg/0.5 Mg (3 Ml) Ud) 3 ml INH RQ6 PRN PRN Reason: Cough Last Admin: 05/11/18 15:30 Dose: 3 ml Albuterol/Ipratropium (Duoneb 3 Mg/0.5 Mg (3 Ml) Ud) 3 ml INH RQ6 JUDY Last Admin: 05/12/18 13:33 Dose: 3 ml Diltiazem HCl (Cardizem) 30 mg PO QID JUDY Last Admin: 05/12/18 15:05 Dose: 30 mg Pantoprazole Sodium 80 mg/ (Sodium Chloride) 100 mls @ 10 mls/hr IVPB .Q10H JUDY Last Admin: 05/12/18 10:09 Dose: 10 mls/hr Metronidazole (Flagyl) 500 mg in 100 mls @ 100 mls/hr IVPB Q8H JUDY; Protocol Last Admin: 05/12/18 15:02 Dose: 100 mls/hr Ciprofloxacin (Cipro 200mg/100ml D5w) 100 mls @ 67 mls/hr IVPB Q12H JUDY; Protocol Last Admin: 05/12/18 04:16 Dose: 67 mls/hr Vancomycin/Sodium Chloride (Vancomycin 1 Gm/Ns 200 Ml) 1 gm in 200 mls @ 133.333 mls/hr IVPB Q24H JUDY; Protocol Stop: 05/16/18 19:31 Last Admin: 05/11/18 20:10 Dose: 133.333 mls/hr Insulin Aspart (Novolog) 0 unit SC Q6 [facility]; Protocol Last Admin: 05/12/18 12:04 Dose: 4 units Metoprolol Tartrate (Lopressor) 50 mg PO BID [facility] Last Admin: 05/12/18 09:25 Dose: 50 mg Neomycin/Polymyxin/Bacitracin (Neosporin Triple Antibiotic Oint) 0 gm TOP BID [facility] Last Admin: 05/12/18 09:24 Dose: 1 applic Nystatin (Nystop Topical Powder) 1 applic TOP BID [facility] Last Admin: 05/12/18 09:24 Dose: 1 applic Rosuvastatin Calcium (Crestor) 10 mg PO HS [facility] Last Admin: 05/11/18 21:56 Dose: 10 mg - Labs Labs: 05/12/18 06:10 05/12/18 06:10 PT 18.4 SECONDS (9.7-12.2) H 05/09/18 09:10 INR 1.7 05/09/18 09:10 APTT 25 SECONDS (21-34) 05/10/18 23:10 - Constitutional Appears: Chronically Ill - Respiratory Exam Respiratory Exam: Rhonchi - Cardiovascular Exam Cardiovascular Exam: RRR - GI/Abdominal Exam GI & Abdominal Exam: Soft, Normal Bowel Sounds. absent: Tenderness - Neurological Exam Neurological Exam: Alert, Awake. 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 EGD scope able to pass thru Status: Acute (7) Achalasia Status: Chronic (8) Diabetes Status: Chronic (9) Anemia Status: Acute (10) GI bleed Assessment & Plan: Duod ulcer. s/p therapeutic endosocpy. Rec- cont protonix- BID Status: Acute (11) Elevated transaminase level Assessment & Plan: shock liver. Improving. Status: Acute
--- NOTE | 2018-05-12 17:40 | CP.CCUPN ---
CCU Subjective - Physician Review Events Since Last Encounter (Free Text): 05/12/18 17:40 Patient is still on ventilator. Secretions is less No chest pain. Awake and responding Vital signs stable. Chest good air entry Thick mucus noted Tolerating the oral feeding. Currently on Protonix drip I spoke to the patient's family in detail. Will continue the weaning process. Possible extubation in the morning. CCU Objective - Vital Signs / Intake & Output Vital Signs (Last 4 hours): Vital Signs Temp Pulse Resp BP Pulse Ox 05/12/18 17:00 137/61 05/12/18 16:00 99.0 F 87 36 H 128/49 L 100 05/12/18 15:00 97 H 32 H 151/74 H 100 05/12/18 14:01 83 23 116/50 L 100 05/12/18 14:00 82 23 100 Intake and Output (Last 8hrs): Intake & Output 05/12/18 05/12/18 05/12/18 06:59 14:59 22:59 Intake Total 520 660 120 Output Total 100 2 1 Balance 420 658 119 Weight 103 lb 3.2 oz Intake: Intake, IV Amount 280 420 30 Right Distal Port 80 80 30 Internal Jugular Right Proximal Port Int 340 Jug Y SITE Right Proximal Port 200 Internal Jugular Tube Feeding 240 240 90 Output: Urine 100 Urine, Voided 100 Urine/Stool Mix 2 1 Other: # Voids Urine, Voided 1 1 # Bowel Movements 0 0 - Physical Exam Head: Positive for: Atraumatic, Normocephalic Pupils: Negative for: Pinpoint Extroacular Muscles: Positive for: EOMI Conjunctiva: Positive for: Normal. Negative for: Injected, Icteric Mouth: Positive for: Moist Mucous Membranes, Other (ETT in place). Negative for: Dry Nose (External): Positive for: Atraumatic. Negative for: Abrasion, Contusion, Laceration Nose (Internal): Positive for: No Active Bleeding. Negative for: Epistaxis Neck: Positive for: Normal Range of Motion, Trachea Midline. Negative for: JVD Respiratory/Chest: Positive for: Clear to Auscultation, Good Air Exchange, Other (intubated and ventilated on PRVC mode, tolerating well and overbreathing the vent). Negative for: Accessory Muscle Use, Wheezes, Rales, Rhonchi Cardiovascular: Positive for: Regular Rate and Rhythm, Normal S1, S2, Peripheal Pulses Present (+2 radials). Negative for: Irregular Rhythm, Tachycardic, Bradycardic Abdomen: Positive for: Normal Bowel Sounds. Negative for: Tenderness, Dist ention Upper Extremity: Positive for: Normal Inspection, NORMAL PULSES. Negative for: Cyanosis, Edema Lower Extremity: Positive for: Normal Inspection, NORMAL PULSES (+1 dorsalis pedis bilaterally). Negative for: Edema Neurological: Positive for: GCS=15, Other (lethargic/somnolent but easily arousable, remains awake and alert after arousal for some time before returning to somnolence, following simple commands, tracking staff within room) Skin: Positive for: Warm, Dry, Normal Color Psychiatric: Positive for: Other (somnolent but arousable, awake and alert for up to an hour before returning to somnolence, intubated so non-verbal and unable to fully assess mental status) - Medications Active Medications: Active Medications Generic Name Dose Route Start Last Admin Trade Name Freq PRN Reason Stop Dose Admin Albuterol/Ipratropium 3 ml 05/07/18 21:18 05/11/18 15:30 Duoneb 3 Mg/0.5 Mg (3 Ml) Ud INH 3 ml RQ6 PRN Administration Cough Albuterol/Ipratropium 3 ml 05/11/18 20:00 05/12/18 13:33 Duoneb 3 Mg/0.5 Mg (3 Ml) Ud INH 3 ml RQ6 JUDY Administration Diltiazem HCl 30 mg 05/12/18 10:00 05/12/18 15:05 Cardizem PO 30 mg QID JUDY Administration Pantoprazole Sodium 80 mg/ 100 mls @ 10 mls/hr 05/09/18 08:30 05/12/18 10:09 Sodium Chloride IVPB 10 mls/hr .Q10H JUDY Administration 8 MG/HR Metronidazole 500 mg in 100 mls @ 100 mls/hr 05/09/18 14:00 05/12/18 15:02 Flagyl IVPB 100 mls/hr Q8H JUDY Administration Protocol Ciprofloxacin 100 mls @ 67 mls/hr 05/09/18 17:00 05/12/18 17:20 Cipro 200mg/100ml D5w IVPB 67 mls/hr Q12H JUDY Administration Protocol Vancomycin/Sodium Chloride 1 gm in 200 mls @ 133.333 mls/hr 05/11/18 19:30 05/11/18 20:10 Vancomycin 1 Gm/Ns 200 Ml IVPB 05/16/18 19:31 133.333 mls/hr Q24H JUDY Administration Protocol Insulin Aspart 0 unit 05/12/18 00:00 05/12/18 12:04 Novolog SC 4 units Q6 JUDY Administration Protocol Metoprolol Tartrate 50 mg 05/12/18 10:00 05/12/18 09:25 Lopressor PO 50 mg BID JUDY Administration Neomycin/Polymyxin/Bacitracin 0 gm 05/10/18 10:00 05/12/18 17:19 Neosporin Triple Antibiotic Oint TOP 1 applic BID JUDY Administration Nystatin 1 applic 05/09/18 18:00 05/12/18 17:19 Nystop Topical Powder TOP 1 applic BID JUDY Administration Rosuvastatin Calcium 10 mg 05/07/18 22:00 05/11/18 21:56 Crestor PO 10 mg HS JUDY Administration - Patient Studies Lab Studies: Microbiology Studies 05/07/18 09:01 Blood Culture - Final Blood NO GROWTH AFTER 5 DAYS Gram Stain - Final TEST NOT PERFORMED 05/07/18 17:55 Blood Culture - Preliminary Blood NO GROWTH AFTER 4 DAYS Lab Studies 05/12/18 05/12/18 05/12/18 Range/Units 11:08 06:26 06:10 WBC (4.8-10.8) K/uL RBC (3.80-5.20) Mil/uL Hgb (11.0-16.0) g/dL Hct (34.0-47.0) % MCV (81.0-99.0) fL MCH (27.0-31.0) pg MCHC (33.0-37.0) g/dL RDW (11.5-14.5) % Plt Count (130-400) K/uL MPV (7.2-11.7) fL Neut % (Auto) (50.0-75.0) % Lymph % (Auto) (20.0-40.0) % [place] % (Auto) (0.0-10.0) % Eos % (Auto) (0.0-4.0) % Baso % (Auto) (0.0-2.0) % Neut # (Auto) (1.8-7.0) K/uL Lymph # (Auto) (1.0-4.3) K/uL [place] # (Auto) (0.0-0.8) K/uL Eos # (Auto) (0.0-0.7) K/uL Baso # (Auto) (0.0-0.2) K/uL Neutrophils % (Manual) (50-75) % Band Neutrophils % (0-2) % Lymphocytes % (Manual) (20-40) % Monocytes % (Manual) (0-10) % Toxic Granulation Platelet Estimate (NORMAL) Large Platelets Polychromasia Hypochromasia (manual) Anisocytosis (manual) Puncture Site pCO2 (35-45) mm/Hg pO2 (80-100) mm/Hg HCO3 (21-28) mmol/L ABG pH (7.35-7.45) ABG Total CO2 (22-28) mmol/L ABG O2 Saturation (95-98) % ABG Base Excess (-2.0-3.0) mmol/L ABG Hemoglobin (11.7-17.4) g/dL ABG Carboxyhemoglobin (0.5-1.5) % POC ABG HHb (Measured) (0.0-5.0) % ABG Methemoglobin (0.0-3.0) % Scout Test A-a O2 Difference mm/Hg Respiratory Index Hgb O2 Saturation (95.0-98.0) % Vent Mode Mechanical Rate FiO2 % Tidal Volume PEEP Sodium 153 H (132-148) mmol/L Potassium 3.4 L (3.6-5.2) mmol/L Chloride 122 H (98-107) mmol/L Carbon Dioxide 23 (22-30) mmol/L Anion Gap 12 (10-20) BUN 24 H (7-17) mg/dL Creatinine 0.9 (0.7-1.2) mg/dL Est GFR ( Amer) > 60 Est GFR (Non-Af Amer) 59 POC Glucose (mg/dL) 233 H 253 H (65-110) mg/dL Random Glucose 233 H (65-105) mg/dL Calcium 8.8 (8.6-10.4) mg/dl Phosphorus 1.9 L (2.5-4.5) mg/dL Magnesium 1.9 (1.6-2.3) mg/dL Total Bilirubin 0.7 (0.2-1.3) mg/dL AST 143 H D (14-36) U/L ALT 520 H D (9-52) U/L Alkaline Phosphatase 75 (38-126) U/L Troponin I (0.00-0.120) ng/mL Total Protein 5.0 L (6.3-8.3) g/dL Albumin 2.6 L (3.5-5.0) g/dL Globulin 2.4 (2.2-3.9) gm/dL Albumin/Globulin Ratio 1.1 (1.0-2.1) MAG IgM Antibody (<1:1600) titer 05/12/18 05/12/18 05/12/18 Range/Units 06:10 05:19 00:02 WBC 13.9 H (4.8-10.8) K/uL RBC 3.61 L (3.80-5.20) Mil/uL Hgb 10.6 L (11.0-16.0) g/dL Hct 32.0 L (34.0-47.0) % MCV 88.6 (81.0-99.0) fL MCH 29.5 (27.0-31.0) pg MCHC 33.2 (33.0-37.0) g/dL RDW 17.9 H (11.5-14.5) % Plt Count 122 L (130-400) K/uL MPV 8.3 (7.2-11.7) fL Neut % (Auto) 84.2 H (50.0-75.0) % Lymph % (Auto) 8.7 L (20.0-40.0) % [place] % (Auto) 5.3 (0.0-10.0) % Eos % (Auto) 1.6 (0.0-4.0) % Baso % (Auto) 0.2 (0.0-2.0) % Neut # (Auto) 11.7 H (1.8-7.0) K/uL Lymph # (Auto) 1.2 (1.0-4.3) K/uL [place] # (Auto) 0.7 (0.0-0.8) K/uL Eos # (Auto) 0.2 (0.0-0.7) K/uL Baso # (Auto) 0.0 (0.0-0.2) K/uL Neutrophils % (Manual) 81 H (50-75) % Band Neutrophils % 8 H (0-2) % Lymphocytes % (Manual) 7 L (20-40) % Monocytes % (Manual) 4 (0-10) % Toxic Granulation Present Platelet Estimate Slightly decreased L (NORMAL) Large Platelets Present Polychromasia Slight Hypochromasia (manual) Slight Anisocytosis (manual) Moderate Puncture Site R rad pCO2 29 L (35-45) mm/Hg pO2 135 H (80-100) mm/Hg HCO3 24.0 (21-28) mmol/L ABG pH 7.48 H (7.35-7.45) ABG Total CO2 22.5 (22-28) mmol/L ABG O2 Saturation 98.8 H (95-98) % ABG Base Excess -1.2 (-2.0-3.0) mmol/L ABG Hemoglobin 10.7 L (11.7-17.4) g/dL ABG Carboxyhemoglobin 1.5 (0.5-1.5) % POC ABG HHb (Measured) 1.2 (0.0-5.0) % ABG Methemoglobin 1.1 (0.0-3.0) % Scout Test Pos A-a O2 Difference 43.0 mm/Hg Respiratory Index 0.3 Hgb O2 Saturation 96.1 (95.0-98.0) % Vent Mode Prvc Mechanical Rate 16 FiO2 30.0 % Tidal Volume 400 PEEP 5 Sodium (132-148) mmol/L Potassium (3.6-5.2) mmol/L Chloride (98-107) mmol/L Carbon Dioxide (22-30) mmol/L Anion Gap (10-20) BUN (7-17) mg/dL Creatinine (0.7-1.2) mg/dL Est GFR ( Amer) Est GFR (Non-Af Amer) POC Glucose (mg/dL) (65-110) mg/dL Random Glucose (65-105) mg/dL Calcium (8.6-10.4) mg/dl Phosphorus (2.5-4.5) mg/dL Magnesium (1.6-2.3) mg/dL Total Bilirubin (0.2-1.3) mg/dL AST (14-36) U/L ALT (9-52) U/L Alkaline Phosphatase (38-126) U/L Troponin I 0.0950 (0.00-0.120) ng/mL Total Protein (6.3-8.3) g/dL Albumin (3.5-5.0) g/dL Globulin (2.2-3.9) gm/dL Albumin/Globulin Ratio (1.0-2.1) MAG IgM Antibody (<1:1600) titer 05/11/18 05/07/18 Range/Units 23:30 09:43 WBC (4.8-10.8) K/uL RBC (3.80-5.20) Mil/uL Hgb (11.0-16.0) g/dL Hct (34.0-47.0) % MCV (81.0-99.0) fL MCH (27.0-31.0) pg MCHC (33.0-37.0) g/dL RDW (11.5-14.5) % Plt Count (130-400) K/uL MPV (7.2-11.7) fL Neut % (Auto) (50.0-75.0) % Lymph % (Auto) (20.0-40.0) % [place] % (Auto) (0.0-10.0) % Eos % (Auto) (0.0-4.0) % Baso % (Auto) (0.0-2.0) % Neut # (Auto) (1.8-7.0) K/uL Lymph # (Auto) (1.0-4.3) K/uL [place] # (Auto) (0.0-0.8) K/uL Eos # (Auto) (0.0-0.7) K/uL Baso # (Auto) (0.0-0.2) K/uL Neutrophils % (Manual) (50-75) % Band Neutrophils % (0-2) % Lymphocytes % (Manual) (20-40) % Monocytes % (Manual) (0-10) % Toxic Granulation Platelet Estimate (NORMAL) Large Platelets Polychromasia Hypochromasia (manual) Anisocytosis (manual) Puncture Site pCO2 (35-45) mm/Hg pO2 (80-100) mm/Hg HCO3 (21-28) mmol/L ABG pH (7.35-7.45) ABG Total CO2 (22-28) mmol/L ABG O2 Saturation (95-98) % ABG Base Excess (-2.0-3.0) mmol/L ABG Hemoglobin (11.7-17.4) g/dL ABG Carboxyhemoglobin (0.5-1.5) % POC ABG HHb (Measured) (0.0-5.0) % ABG Methemoglobin (0.0-3.0) % Scout Test A-a O2 Difference mm/Hg Respiratory Index Hgb O2 Saturation (95.0-98.0) % Vent Mode Mechanical Rate FiO2 % Tidal Volume PEEP Sodium (132-148) mmol/L Potassium (3.6-5.2) mmol/L Chloride (98-107) mmol/L Carbon Dioxide (22-30) mmol/L Anion Gap (10-20) BUN (7-17) mg/dL Creatinine (0.7-1.2) mg/dL Est GFR ( Amer) Est GFR (Non-Af Amer) POC Glucose (mg/dL) 216 H (65-110) mg/dL Random Glucose (65-105) mg/dL Calcium (8.6-10.4) mg/dl Phosphorus (2.5-4.5) mg/dL Magnesium (1.6-2.3) mg/dL Total Bilirubin (0.2-1.3) mg/dL AST (14-36) U/L ALT (9-52) U/L Alkaline Phosphatase (38-126) U/L Troponin I (0.00-0.120) ng/mL Total Protein (6.3-8.3) g/dL Albumin (3.5-5.0) g/dL Globulin (2.2-3.9) gm/dL Albumin/Globulin Ratio (1.0-2.1) MAG IgM Antibody <1:1600 (<1:1600) titer Laboratory Results - last 24 hr 05/07/18 05/11/18 05/12/18 09:43 23:30 00:02 WBC RBC Hgb Hct MCV MCH MCHC RDW Plt Count MPV Neut % (Auto) Lymph % (Auto) [place] % (Auto) Eos % (Auto) Baso % (Auto) Neut # (Auto) Lymph # (Auto) [place] # (Auto) Eos # (Auto) Baso # (Auto) Neutrophils % (Manual) Band Neutrophils % Lymphocytes % (Manual) Monocytes % (Manual) Toxic Granulation Platelet Estimate Large Platelets Polychromasia Hypochromasia (manual) Anisocytosis (manual) Puncture Site pCO2 pO2 HCO3 ABG pH ABG Total CO2 ABG O2 Saturation ABG Base Excess ABG Hemoglobin ABG Carboxyhemoglobin POC ABG HHb (Measured) ABG Methemoglobin Scout Test A-a O2 Difference Respiratory Index Hgb O2 Saturation Vent Mode Mechanical Rate FiO2 Tidal Volume PEEP Sodium Potassium Chloride Carbon Dioxide Anion Gap BUN Creatinine Est GFR ( Amer) Est GFR (Non-Af Amer) POC Glucose (mg/dL) 216 H Random Glucose Calcium Phosphorus Magnesium Total Bilirubin AST ALT Alkaline Phosphatase Troponin I 0.0950 Total Protein Albumin Globulin Albumin/Globulin Ratio MAG IgM Antibody <1:1600 05/12/18 05/12/18 05/12/18 05:19 06:10 06:10 WBC 13.9 H RBC 3.61 L Hgb 10.6 L Hct 32.0 L MCV 88.6 MCH 29.5 MCHC 33.2 RDW 17.9 H Plt Count 122 L MPV 8.3 Neut % (Auto) 84.2 H Lymph % (Auto) 8.7 L [place] % (Auto) 5.3 Eos % (Auto) 1.6 Baso % (Auto) 0.2 Neut # (Auto) 11.7 H Lymph # (Auto) 1.2 [place] # (Auto) 0.7 Eos # (Auto) 0.2 Baso # (Auto) 0.0 Neutrophils % (Manual) 81 H Band Neutrophils % 8 H Lymphocytes % (Manual) 7 L Monocytes % (Manual) 4 Toxic Granulation Present Platelet Estimate Slightly decreased L Large Platelets Present Polychromasia Slight Hypochromasia (manual) Slight Anisocytosis (manual) Moderate Puncture Site R rad pCO2 29 L pO2 135 H HCO3 24.0 ABG pH 7.48 H ABG Total CO2 22.5 ABG O2 Saturation 98.8 H ABG Base Excess -1.2 ABG Hemoglobin 10.7 L ABG Carboxyhemoglobin 1.5 POC ABG HHb (Measured) 1.2 ABG Methemoglobin 1.1 Scout Test Pos A-a O2 Difference 43.0 Respiratory Index 0.3 Hgb O2 Saturation 96.1 Vent Mode Prvc Mechanical Rate 16 FiO2 30.0 Tidal Volume 400 PEEP 5 Sodium 153 H Potassium 3.4 L Chloride 122 H Carbon Dioxide 23 Anion Gap 12 BUN 24 H Creatinine 0.9 Est GFR ( Amer) > 60 Est GFR (Non-Af Amer) 59 POC Glucose (mg/dL) Random Glucose 233 H Calcium 8.8 Phosphorus 1.9 L Magnesium 1.9 Total Bilirubin 0.7 AST 143 H D ALT 520 H D Alkaline Phosphatase 75 Troponin I Total Protein 5.0 L Albumin 2.6 L Globulin 2.4 Albumin/Globulin Ratio 1.1 MAG IgM Antibody 05/12/18 05/12/18 06:26 11:08 WBC RBC Hgb Hct MCV MCH MCHC RDW Plt Count MPV Neut % (Auto) Lymph % (Auto) [place] % (Auto) Eos % (Auto) Baso % (Auto) Neut # (Auto) Lymph # (Auto) [place] # (Auto) Eos # (Auto) Baso # (Auto) Neutrophils % (Manual) Band Neutrophils % Lymphocytes % (Manual) Monocytes % (Manual) Toxic Granulation Platelet Estimate Large Platelets Polychromasia Hypochromasia (manual) Anisocytosis (manual) Puncture Site pCO2 pO2 HCO3 ABG pH ABG Total CO2 ABG O2 Saturation ABG Base Excess ABG Hemoglobin ABG Carboxyhemoglobin POC ABG HHb (Measured) ABG Methemoglobin Scout Test A-a O2 Difference Respiratory Index Hgb O2 Saturation Vent Mode Mechanical Rate FiO2 Tidal Volume PEEP Sodium Potassium Chloride Carbon Dioxide Anion Gap BUN Creatinine Est GFR ( Amer) Est GFR (Non-Af Amer) POC Glucose (mg/dL) 253 H 233 H Random Glucose Calcium Phosphorus Magnesium Total Bilirubin AST ALT Alkaline Phosphatase Troponin I Total Protein Albumin Globulin Albumin/Globulin Ratio MAG IgM Antibody Fingerstick Blood Sugar Results: 253 Critical Care Progress Note - Nutrition Nutrition: Nutrition Category Date Time Status NPO Diet [DIET] Diets 05/09/18 Breakfast Active
[2018-05-12] MEDS: Vancomycin 1 gm/NS 200 ml 1 GM/200 ML BAG IVPB SCH (18:35)
--- NOTE | 2018-05-13 00:10 | CP.PCM.PN ---
Subjective - Date & Time of Evaluation Date of Evaluation: 05/12/18 Time of Evaluation: 09:00 - Subjective Subjective: Awake vent dependent-being wean-off On cardizem drip hemodynamically stable elevated LFT's improving Objective - Vital Signs/Intake and Output Vital Signs (last 24 hours): Temp Pulse Resp BP Pulse Ox 99.2 F 81 16 119/54 L 99 05/12/18 20:00 05/12/18 22:00 05/12/18 22:00 05/12/18 22:00 05/12/18 22:00 Intake and Output: 05/12/18 05/13/18 18:59 06:59 Intake Total 920 410 Output Total 4 Balance 916 410 - Medications Medications: Current Medications Albuterol/Ipratropium (Duoneb 3 Mg/0.5 Mg (3 Ml) Ud) 3 ml INH RQ6 PRN PRN Reason: Cough Last Admin: 05/11/18 15:30 Dose: 3 ml Albuterol/Ipratropium (Duoneb 3 Mg/0.5 Mg (3 Ml) Ud) 3 ml INH RQ6 JUDY Last Admin: 05/12/18 19:20 Dose: 3 ml Diltiazem HCl (Cardizem) 30 mg PO QID JUDY Last Admin: 05/12/18 21:26 Dose: 30 mg Pantoprazole Sodium 80 mg/ (Sodium Chloride) 100 mls @ 10 mls/hr IVPB .Q10H JUDY Last Admin: 05/12/18 21:26 Dose: 10 mls/hr Metronidazole (Flagyl) 500 mg in 100 mls @ 100 mls/hr IVPB Q8H JUDY; Protocol Last Admin: 05/12/18 21:30 Dose: 100 mls/hr Ciprofloxacin (Cipro 200mg/100ml D5w) 100 mls @ 67 mls/hr IVPB Q12H JUDY; Protocol Last Admin: 05/12/18 17:20 Dose: 67 mls/hr Vancomycin/Sodium Chloride (Vancomycin 1 Gm/Ns 200 Ml) 1 gm in 200 mls @ 133.333 mls/hr IVPB Q24H JUDY; Protocol Stop: 05/16/18 19:31 Last Admin: 05/12/18 18:35 Dose: 133.333 mls/hr Insulin Aspart (Novolog) 0 unit SC Q6 JUDY; Protocol Last Admin: 05/12/18 18:35 Dose: 4 units Metoprolol Tartrate (Lopressor) 50 mg PO BID [facility] Last Admin: 05/12/18 18:34 Dose: 50 mg Neomycin/Polymyxin/Bacitracin (Neosporin Triple Antibiotic Oint) 0 gm TOP BID [facility] Last Admin: 05/12/18 17:19 Dose: 1 applic Nystatin (Nystop Topical Powder) 1 applic TOP BID [facility] Last Admin: 05/12/18 17:19 Dose: 1 applic Rosuvastatin Calcium (Crestor) 10 mg PO HS [facility] Last Admin: 05/12/18 21:26 Dose: 10 mg - Labs Labs: 05/12/18 06:10 05/12/18 06:10 PT 18.4 SECONDS (9.7-12.2) H 05/09/18 09:10 INR 1.7 05/09/18 09:10 APTT 25 SECONDS (21-34) 05/10/18 23:10 - Constitutional Appears: Toxic, Cachectic, Chronically Ill - Head Exam Head Exam: NORMAL INSPECTION - Eye Exam Eye Exam: absent: Scleral icterus - Neck Exam Neck Exam: Full ROM - Respiratory Exam Respiratory Exam: Decreased Breath Sounds - Cardiovascular Exam Cardiovascular Exam: REGULAR RHYTHM - GI/Abdominal Exam GI & Abdominal Exam: Soft - Extremities Exam Extremities Exam: absent: Pedal Edema - Neurological Exam Neurological Exam: Altered Assessment and Plan - Assessment and Plan (Free Text) Assessment: Sepsis Respiratory failure CAD-+baby trops T2dm Transaminitis GI bleed, stable h/h Plan: Wean off respirator Cont abtx GI follow up
[2018-05-13] MEDS: (Novolog) Insulin Aspart, Recombinant 100 u/ml 10 ml vial SC SCH ×4 (00:30→18:35)
[2018-05-13] MEDS: Albuterol-Ipratrop 3 mg / 0.5 (3 ml) UD INH SCH ×4 (01:39→19:04)
[2018-05-13] MEDS: Pantoprazole 80 MG in Sodium Chloride 0.9% 100 ML IVPB SCH (02:51)
[2018-05-13] MEDS: Ciprofloxacin 200mg/100ml D5W 100 ML IVPB SCH ×2 (05:00→17:12)
[2018-05-13 05:52] LABS: ABG ALLEN TEST POS; ARTERIAL BLOOD GAS O2 SAT 98.7 % (95-98); ARTERIAL BLOOD GAS PCO2 29 mm/Hg (35-45); ARTERIAL BLOOD GAS PH 7.48 (7.35-7.45); ARTERIAL BLOOD GAS PO2 121 mm/Hg (80-100); ARTERIAL BLOOD GAS TCO2 22.5 mmol/L (22-28)
[2018-05-13 06:01] LABS: BASO # 0.1 K/uL (0.0-0.2); BASO % 0.4 % (0.0-2.0); EOS # 0.3 K/uL (0.0-0.7); EOS % 2.4 % (0.0-4.0); HEMOGLOBIN 10.4 g/dL (11.0-16.0); LYMPH # 1.4 K/uL (1.0-4.3); MEAN CELL VOLUME 89.4 fL (81.0-99.0); MEAN CORPUSCULAR HEMOGLOBIN 29.6 pg (27.0-31.0); MEAN CORPUSCULAR HGB CONC 33.1 g/dL (33.0-37.0); MEAN PLATELET VOLUME 8.6 fL (7.2-11.7); MONO # 0.8 K/uL (0.0-0.8); MONO % 5.7 % (0.0-10.0); NEUT # 11.3 K/uL (1.8-7.0); NEUT % 81.5 % (50.0-75.0); NRBC % 0.2 % (0.0-2.0); RBC 3.51 Mil/uL (3.80-5.20); WHITE BLOOD COUNT 13.9 K/uL (4.8-10.8)
[2018-05-13 06:24] LABS: ALB/GLOB RATIO 1.1 (1.0-2.1); ALBUMIN 2.7 g/dL (3.5-5.0); ALT/SGPT 316 U/L (9-52); AST/SGOT 45 U/L (14-36); BLOOD UREA NITROGEN 19 mg/dL (7-17); CALCIUM 8.7 mg/dl (8.6-10.4); GFR NON-AFRICAN AMERICAN > 60
[2018-05-13] MEDS: metroNIDAZOLE IV 500 mg/100 ml 500 MG/100 ML BAG IVPB SCH ×3 (06:28→21:27)
--- NOTE | 2018-05-13 08:31 | RAD ---
Date of service: 05/13/2018 HISTORY: s/p intubation COMPARISON: 05/12/2018. FINDINGS: Endotracheal tube terminates 1.5 cm proximal to the renata. The right IJV line terminates at the cavoatrial junction. LUNGS: The lungs are clear. PLEURA: No significant pleural effusion identified, no pneumothorax apparent. CARDIOVASCULAR: There is mild cardiomegaly. Status post CABG. There is stable position of left-sided AIC Atherosclerotic aortic arch calcifications are present. OSSEOUS STRUCTURES: No significant abnormalities. VISUALIZED UPPER ABDOMEN: Normal. OTHER FINDINGS: None. IMPRESSION: No acute findings. No significant interval change.
[2018-05-13] MEDS: Bacitracin/Neomycin/Polymyxin Oint(30GM) TOP SCH ×2 (09:32→17:14)
--- NOTE | 2018-05-13 14:20 | CP.PCM.PN ---
Subjective - Date & Time of Evaluation Date of Evaluation: 05/13/18 Time of Evaluation: 14:19 - Subjective Subjective: f/u GI bleed On vent, in ICU No reported bleeding. On NG feeds. Hgb stable D/W daughter Objective - Vital Signs/Intake and Output Vital Signs (last 24 hours): Temp Pulse Resp BP Pulse Ox 99.7 F H 87 33 H 115/64 99 05/13/18 12:00 05/13/18 13:00 05/13/18 13:00 05/13/18 13:00 05/13/18 13:00 Intake and Output: 05/13/18 05/13/18 06:59 18:59 Intake Total 1030 340 Output Total 2 Balance 1030 338 - Medications Medications: Current Medications Albuterol/Ipratropium (Duoneb 3 Mg/0.5 Mg (3 Ml) Ud) 3 ml INH RQ6 PRN PRN Reason: Cough Last Admin: 05/11/18 15:30 Dose: 3 ml Albuterol/Ipratropium (Duoneb 3 Mg/0.5 Mg (3 Ml) Ud) 3 ml INH RQ6 JUDY Last Admin: 05/13/18 13:35 Dose: 3 ml Alprazolam (Xanax) 0.5 mg PO HS JUDY Diltiazem HCl (Cardizem) 30 mg PO QID JUDY Last Admin: 05/13/18 09:31 Dose: 30 mg Metronidazole (Flagyl) 500 mg in 100 mls @ 100 mls/hr IVPB Q8H JUDY; Protocol Last Admin: 05/13/18 06:28 Dose: 100 mls/hr Ciprofloxacin (Cipro 200mg/100ml D5w) 100 mls @ 67 mls/hr IVPB Q12H JUDY; Protocol Last Admin: 05/13/18 05:00 Dose: 67 mls/hr Vancomycin/Sodium Chloride (Vancomycin 1 Gm/Ns 200 Ml) 1 gm in 200 mls @ 133.333 mls/hr IVPB Q24H JUDY; Protocol Stop: 05/16/18 19:31 Last Admin: 05/12/18 18:35 Dose: 133.333 mls/hr Insulin Aspart (Novolog) 0 unit SC Q6 JUDY; Protocol Last Admin: 05/13/18 12:22 Dose: 4 units Metoprolol Tartrate (Lopressor) 50 mg PO BID JUDY Last Admin: 05/13/18 09:31 Dose: 50 mg Neomycin/Polymyxin/Bacitracin (Neosporin Triple Antibiotic Oint) 0 gm TOP BID [facility] Last Admin: 05/13/18 09:32 Dose: 1 applic Nystatin (Nystop Topical Powder) 1 applic TOP BID [facility] Last Admin: 05/13/18 09:31 Dose: 1 applic Pantoprazole Sodium (Protonix Inj) 40 mg IVP Q12H [facility] Last Admin: 05/13/18 09:33 Dose: 40 mg Rosuvastatin Calcium (Crestor) 10 mg PO HS [facility] Last Admin: 05/12/18 21:26 Dose: 10 mg - Labs Labs: 05/13/18 05:57 05/13/18 05:57 PT 18.4 SECONDS (9.7-12.2) H 05/09/18 09:10 INR 1.7 05/09/18 09:10 APTT 25 SECONDS (21-34) 05/10/18 23:10 - Constitutional Appears: No Acute Distress - Head Exam Head Exam: NORMOCEPHALIC - Cardiovascular Exam Cardiovascular Exam: REGULAR RHYTHM - GI/Abdominal Exam GI & Abdominal Exam: Soft. absent: Tenderness Assessment and Plan (1) Diabetic ketoacidosis Status: Acute (2) GI bleed Assessment & Plan: stable lifelong PPI recommended Status: Acute (3) Sepsis Status: Acute (4) Electrolyte abnormality Status: Acute (5) Ischemic hepatitis Assessment & Plan: gradually improving Status: Acute
--- NOTE | 2018-05-13 14:54 | CP.CCUPN ---
CCU Subjective - Physician Review Subjective (Free Text): Critical Care Progress Note Patient examined at bedside. Patient is more alert today. Became very tachypneic on cpap trial. Critical Care Time Spent (in minutes): 35 CCU Objective - Vital Signs / Intake & Output Vital Signs (Last 4 hours): Vital Signs Temp Pulse Resp BP Pulse Ox 05/13/18 14:08 88 16 107/45 L 05/13/18 14:03 86 22 05/13/18 14:01 86 23 05/13/18 14:00 85 24 05/13/18 13:00 87 33 H 115/64 99 05/13/18 12:02 82 22 116/41 L 100 05/13/18 12:00 99.7 F H 85 28 H 100 05/13/18 11:00 84 35 H 127/50 L 100 Intake and Output (Last 8hrs): Intake & Output 05/12/18 05/13/18 05/13/18 22:59 06:59 14:59 Intake Total 770 520 370 Output Total 2 3 Balance 768 520 367 Weight 107 lb Intake: Intake, IV Amount 480 180 130 Right Distal Port 80 80 20 Internal Jugular Right Proximal Port Int 400 100 110 Jug Y SITE Tube Feeding 240 240 240 Other 50 100 Output: Urine/Stool Mix 2 3 Other: # Voids Urine, Voided 1 # Bowel Movements 1 - Physical Exam Head: Positive for: Atraumatic, Normocephalic Pupils: Positive for: PERRL. Negative for: Pinpoint Extroacular Muscles: Positive for: EOMI Conjunctiva: Positive for: Normal. Negative for: Injected, Icteric Mouth: Positive for: Moist Mucous Membranes, Other (ett in place ). Negative for: Dry Nose (External): Positive for: Atraumatic. Negative for: Abrasion, Contusion, Laceration Nose (Internal): Positive for: No Active Bleeding. Negative for: Epistaxis Neck: Positive for: Normal Range of Motion, Trachea Midline. Negative for: JVD Respiratory/Chest: Positive for: Clear to Auscultation, Good Air Exchange, Other (intubated and ventilated on PRVC mode, tolerating well and overbreathing the vent). Negative for: Accessory Muscle Use, Wheezes, Rales, Rhonchi Cardiovascular: Positive for: Regular Rate and Rhythm, Normal S1, S2, Peripheal Pulses Present (+2 radials). Negative for: Irregular Rhythm, Tachycardic, Bradycardic Abdomen: Positive for: Normal Bowel Sounds. Negative for: Tenderness, Distention Upper Extremity: Positive for: Normal Inspection, NORMAL PULSES. Negative for: Cyanosis, Edema Lower Extremity: Positive for: Normal Inspection, NORMAL PULSES (+1 dorsalis pedis bilaterally). Negative for: Edema Neurological: Positive for: GCS=15 Skin: Positive for: Warm, Dry, Normal Color Psychiatric: Positive for: Alert, Other - Medications Active Medications: Active Medications Generic Name Dose Route Start Last Admin Trade Name Freq PRN Reason Stop Dose Admin Albuterol/Ipratropium 3 ml 05/07/18 21:18 05/11/18 15:30 Duoneb 3 Mg/0.5 Mg (3 Ml) Ud INH 3 ml RQ6 PRN Administration Cough Albuterol/Ipratropium 3 ml 05/11/18 20:00 05/13/18 13:35 Duoneb 3 Mg/0.5 Mg (3 Ml) Ud INH 3 ml RQ6 JUDY Administration Alprazolam 0.5 mg 05/13/18 22:00 Xanax PO HS JUDY Diltiazem HCl 30 mg 05/12/18 10:00 05/13/18 09:31 Cardizem PO 30 mg QID JUDY Administration Metronidazole 500 mg in 100 mls @ 100 mls/hr 05/09/18 14:00 05/13/18 06:28 Flagyl IVPB 100 mls/hr Q8H JUDY Administration Protocol Ciprofloxacin 100 mls @ 67 mls/hr 05/09/18 17:00 05/13/18 05:00 Cipro 200mg/100ml D5w IVPB 67 mls/hr Q12H JUDY Administration Protocol Vancomycin/Sodium Chloride 1 gm in 200 mls @ 133.333 mls/hr 05/11/18 19:30 05/12/18 18:35 Vancomycin 1 Gm/Ns 200 Ml IVPB 05/16/18 19:31 133.333 mls/hr Q24H JUDY Administration Protocol Insulin Aspart 0 unit 05/12/18 00:00 05/13/18 12:22 Novolog SC 4 units Q6 JUDY Administration Protocol Metoprolol Tartrate 50 mg 05/12/18 10:00 05/13/18 09:31 Lopressor PO 50 mg BID JUDY Administration Neomycin/Polymyxin/Bacitracin 0 gm 05/10/18 10:00 05/13/18 09:32 Neosporin Triple Antibiotic Oint TOP 1 applic BID JUDY Administration Nystatin 1 applic 05/09/18 18:00 05/13/18 09:31 Nystop Topical Powder TOP 1 applic BID JUDY Administration Pantoprazole Sodium 40 mg 05/13/18 07:45 05/13/18 09:33 Protonix Inj IVP 40 mg Q12H JUDY Administration Rosuvastatin Calcium 10 mg 05/07/18 22:00 05/12/18 21:26 Crestor PO 10 mg HS JUDY Administration - Patient Studies Lab Studies: Microbiology Studies 05/07/18 17:55 Blood Culture - Final Blood NO GROWTH AFTER 5 DAYS Gram Stain - Final TEST NOT PERFORMED Lab Studies 05/13/18 05/13/18 05/13/18 Range/Units 11:07 06:11 05:57 WBC (4.8-10.8) K/uL RBC (3.80-5.20) Mil/uL Hgb (11.0-16.0) g/dL Hct (34.0-47.0) % MCV (81.0-99.0) fL MCH (27.0-31.0) pg MCHC (33.0-37.0) g/dL RDW (11.5-14.5) % Plt Count (130-400) K/uL MPV (7.2-11.7) fL Neut % (Auto) (50.0-75.0) % Lymph % (Auto) (20.0-40.0) % [place] % (Auto) (0.0-10.0) % Eos % (Auto) (0.0-4.0) % Baso % (Auto) (0.0-2.0) % Neut # (Auto) (1.8-7.0) K/uL Lymph # (Auto) (1.0-4.3) K/uL [place] # (Auto) (0.0-0.8) K/uL Eos # (Auto) (0.0-0.7) K/uL Baso # (Auto) (0.0-0.2) K/uL Puncture Site pCO2 (35-45) mm/Hg pO2 (80-100) mm/Hg HCO3 (21-28) mmol/L ABG pH (7.35-7.45) ABG Total CO2 (22-28) mmol/L ABG O2 Saturation (95-98) % ABG Base Excess (-2.0-3.0) mmol/L ABG Hemoglobin (11.7-17.4) g/dL ABG Carboxyhemoglobin (0.5-1.5) % POC ABG HHb (Measured) (0.0-5.0) % ABG Methemoglobin (0.0-3.0) % Scout Test A-a O2 Difference mm/Hg Respiratory Index Hgb O2 Saturation (95.0-98.0) % Vent Mode Mechanical Rate FiO2 % Tidal Volume PEEP Sodium 150 H (132-148) mmol/L Potassium 3.5 L (3.6-5.2) mmol/L Chloride 117 H (98-107) mmol/L Carbon Dioxide 24 (22-30) mmol/L Anion Gap 13 (10-20) BUN 19 H (7-17) mg/dL Creatinine 0.8 (0.7-1.2) mg/dL Est GFR ( Amer) > 60 Est GFR (Non-Af Amer) > 60 POC Glucose (mg/dL) 201 H 258 H (65-110) mg/dL Random Glucose 211 H (65-105) mg/dL Calcium 8.7 (8.6-10.4) mg/dl Phosphorus 2.5 (2.5-4.5) mg/dL Magnesium 1.8 (1.6-2.3) mg/dL Total Bilirubin 0.6 (0.2-1.3) mg/dL AST 45 H D (14-36) U/L ALT 316 H D (9-52) U/L Alkaline Phosphatase 71 (38-126) U/L Total Protein 5.1 L (6.3-8.3) g/dL Albumin 2.7 L (3.5-5.0) g/dL Globulin 2.4 (2.2-3.9) gm/dL Albumin/Globulin Ratio 1.1 (1.0-2.1) 05/13/18 05/13/18 05/13/18 Range/Units 05:57 05:19 00:03 WBC 13.9 H (4.8-10.8) K/uL RBC 3.51 L (3.80-5.20) Mil/uL Hgb 10.4 L (11.0-16.0) g/dL Hct 31.3 L (34.0-47.0) % MCV 89.4 (81.0-99.0) fL MCH 29.6 (27.0-31.0) pg MCHC 33.1 (33.0-37.0) g/dL RDW 18.0 H (11.5-14.5) % Plt Count 132 (130-400) K/uL MPV 8.6 (7.2-11.7) fL Neut % (Auto) 81.5 H (50.0-75.0) % Lymph % (Auto) 10.0 L (20.0-40.0) % [place] % (Auto) 5.7 (0.0-10.0) % Eos % (Auto) 2.4 (0.0-4.0) % Baso % (Auto) 0.4 (0.0-2.0) % Neut # (Auto) 11.3 H (1.8-7.0) K/uL Lymph # (Auto) 1.4 (1.0-4.3) K/uL [place] # (Auto) 0.8 (0.0-0.8) K/uL Eos # (Auto) 0.3 (0.0-0.7) K/uL Baso # (Auto) 0.1 (0.0-0.2) K/uL Puncture Site R rad pCO2 29 L (35-45) mm/Hg pO2 121 H (80-100) mm/Hg HCO3 24.0 (21-28) mmol/L ABG pH 7.48 H (7.35-7.45) ABG Total CO2 22.5 (22-28) mmol/L ABG O2 Saturation 98.7 H (95-98) % ABG Base Excess -1.2 (-2.0-3.0) mmol/L ABG Hemoglobin 10.0 L (11.7-17.4) g/dL ABG Carboxyhemoglobin 1.4 (0.5-1.5) % POC ABG HHb (Measured) 1.3 (0.0-5.0) % ABG Methemoglobin 1.4 (0.0-3.0) % Scout Test Pos A-a O2 Difference 57.0 mm/Hg Respiratory Index 0.5 Hgb O2 Saturation 95.8 (95.0-98.0) % Vent Mode Prvc Mechanical Rate 16 FiO2 30.0 % Tidal Volume 400 PEEP 5 Sodium (132-148) mmol/L Potassium (3.6-5.2) mmol/L Chloride (98-107) mmol/L Carbon Dioxide (22-30) mmol/L Anion Gap (10-20) BUN (7-17) mg/dL Creatinine (0.7-1.2) mg/dL Est GFR ( Amer) Est GFR (Non-Af Amer) POC Glucose (mg/dL) 148 H (65-110) mg/dL Random Glucose (65-105) mg/dL Calcium (8.6-10.4) mg/dl Phosphorus (2.5-4.5) mg/dL Magnesium (1.6-2.3) mg/dL Total Bilirubin (0.2-1.3) mg/dL AST (14-36) U/L ALT (9-52) U/L Alkaline Phosphatase (38-126) U/L Total Protein (6.3-8.3) g/dL Albumin (3.5-5.0) g/dL Globulin (2.2-3.9) gm/dL Albumin/Globulin Ratio (1.0-2.1) 05/12/18 Range/Units 17:43 WBC (4.8-10.8) K/uL RBC (3.80-5.20) Mil/uL Hgb (11.0-16.0) g/dL Hct (34.0-47.0) % MCV (81.0-99.0) fL MCH (27.0-31.0) pg MCHC (33.0-37.0) g/dL RDW (11.5-14.5) % Plt Count (130-400) K/uL MPV (7.2-11.7) fL Neut % (Auto) (50.0-75.0) % Lymph % (Auto) (20.0-40.0) % [place] % (Auto) (0.0-10.0) % Eos % (Auto) (0.0-4.0) % Baso % (Auto) (0.0-2.0) % Neut # (Auto) (1.8-7.0) K/uL Lymph # (Auto) (1.0-4.3) K/uL [place] # (Auto) (0.0-0.8) K/uL Eos # (Auto) (0.0-0.7) K/uL Baso # (Auto) (0.0-0.2) K/uL Puncture Site pCO2 (35-45) mm/Hg pO2 (80-100) mm/Hg HCO3 (21-28) mmol/L ABG pH (7.35-7.45) ABG Total CO2 (22-28) mmol/L ABG O2 Saturation (95-98) % ABG Base Excess (-2.0-3.0) mmol/L ABG Hemoglobin (11.7-17.4) g/dL ABG Carboxyhemoglobin (0.5-1.5) % POC ABG HHb (Measured) (0.0-5.0) % ABG Methemoglobin (0.0-3.0) % Scout Test A-a O2 Difference mm/Hg Respiratory Index Hgb O2 Saturation (95.0-98.0) % Vent Mode Mechanical Rate FiO2 % Tidal Volume PEEP Sodium (132-148) mmol/L Potassium (3.6-5.2) mmol/L Chloride (98-107) mmol/L Carbon Dioxide (22-30) mmol/L Anion Gap (10-20) BUN (7-17) mg/dL Creatinine (0.7-1.2) mg/dL Est GFR ( Amer) Est GFR (Non-Af Amer) POC Glucose (mg/dL) 230 H (65-110) mg/dL Random Glucose (65-105) mg/dL Calcium (8.6-10.4) mg/dl Phosphorus (2.5-4.5) mg/dL Magnesium (1.6-2.3) mg/dL Total Bilirubin (0.2-1.3) mg/dL AST (14-36) U/L ALT (9-52) U/L Alkaline Phosphatase (38-126) U/L Total Protein (6.3-8.3) g/dL Albumin (3.5-5.0) g/dL Globulin (2.2-3.9) gm/dL Albumin/Globulin Ratio (1.0-2.1) Laboratory Results - last 24 hr 05/12/18 05/13/18 05/13/18 17:43 00:03 05:19 WBC RBC Hgb Hct MCV MCH MCHC RDW Plt Count MPV Neut % (Auto) Lymph % (Auto) [place] % (Auto) Eos % (Auto) Baso % (Auto) Neut # (Auto) Lymph # (Auto) [place] # (Auto) Eos # (Auto) Baso # (Auto) Puncture Site R rad pCO2 29 L pO2 121 H HCO3 24.0 ABG pH 7.48 H ABG Total CO2 22.5 ABG O2 Saturation 98.7 H ABG Base Excess -1.2 ABG Hemoglobin 10.0 L ABG Carboxyhemoglobin 1.4 POC ABG HHb (Measured) 1.3 ABG Methemoglobin 1.4 Scout Test Pos A-a O2 Difference 57.0 Respiratory Index 0.5 Hgb O2 Saturation 95.8 Vent Mode Prvc Mechanical Rate 16 FiO2 30.0 Tidal Volume 400 PEEP 5 Sodium Potassium Chloride Carbon Dioxide Anion Gap BUN Creatinine Est GFR ( Amer) Est GFR (Non-Af Amer) POC Glucose (mg/dL) 230 H 148 H Random Glucose Calcium Phosphorus Magnesium Total Bilirubin AST ALT Alkaline Phosphatase Total Protein Albumin Globulin Albumin/Globulin Ratio 05/13/18 05/13/18 05/13/18 05:57 05:57 06:11 WBC 13.9 H RBC 3.51 L Hgb 10.4 L Hct 31.3 L MCV 89.4 MCH 29.6 MCHC 33.1 RDW 18.0 H Plt Count 132 MPV 8.6 Neut % (Auto) 81.5 H Lymph % (Auto) 10.0 L [place] % (Auto) 5.7 Eos % (Auto) 2.4 Baso % (Auto) 0.4 Neut # (Auto) 11.3 H Lymph # (Auto) 1.4 [place] # (Auto) 0.8 Eos # (Auto) 0.3 Baso # (Auto) 0.1 Puncture Site pCO2 pO2 HCO3 ABG pH ABG Total CO2 ABG O2 Saturation ABG Base Excess ABG Hemoglobin ABG Carboxyhemoglobin POC ABG HHb (Measured) ABG Methemoglobin Scout Test A-a O2 Difference Respiratory Index Hgb O2 Saturation Vent Mode Mechanical Rate FiO2 Tidal Volume PEEP Sodium 150 H Potassium 3.5 L Chloride 117 H Carbon Dioxide 24 Anion Gap 13 BUN 19 H Creatinine 0.8 Est GFR ( Amer) > 60 Est GFR (Non-Af Amer) > 60 POC Glucose (mg/dL) 258 H Random Glucose 211 H Calcium 8.7 Phosphorus 2.5 Magnesium 1.8 Total Bilirubin 0.6 AST 45 H D ALT 316 H D Alkaline Phosphatase 71 Total Protein 5.1 L Albumin 2.7 L Globulin 2.4 Albumin/Globulin Ratio 1.1 05/13/18 11:07 WBC RBC Hgb Hct MCV MCH MCHC RDW Plt Count MPV Neut % (Auto) Lymph % (Auto) [place] % (Auto) Eos % (Auto) Baso % (Auto) Neut # (Auto) Lymph # (Auto) [place] # (Auto) Eos # (Auto) Baso # (Auto) Puncture Site pCO2 pO2 HCO3 ABG pH ABG Total CO2 ABG O2 Saturation ABG Base Excess ABG Hemoglobin ABG Carboxyhemoglobin POC ABG HHb (Measured) ABG Methemoglobin Scout Test A-a O2 Difference Respiratory Index Hgb O2 Saturation Vent Mode Mechanical Rate FiO2 Tidal Volume PEEP Sodium Potassium Chloride Carbon Dioxide Anion Gap BUN Creatinine Est GFR ( Amer) Est GFR (Non-Af Amer) POC Glucose (mg/dL) 201 H Random Glucose Calcium Phosphorus Magnesium Total Bilirubin AST ALT Alkaline Phosphatase Total Protein Albumin Globulin Albumin/Globulin Ratio Fingerstick Blood Sugar Results: 258 Review of Systems - Review of Systems Systems not reviewed;Unavailable: Intubated Critical Care Progress Note - Nutrition Nutrition: Nutrition Category Date Time Status NPO Diet [DIET] Diets 05/09/18 Breakfast Active Assessment/Plan - Assessment and Plan (Free Text) Assessment: This is an 87 year old female with past medical history HTN, CHF, CAD, COPD, and DM2 who presented with altered mental status and was found to be septic and hyperglycemic. Admitted to ICU for sepsis/septic shock requiring pressors and s/p intubation. Currently off pressors and sedation, awake and alert, following simple commands, pending CPAP/PS trial to determine if can be extubated. 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 CAD/Type 2 MN - cardizem 30 mg PO QID for tachycardia - not a candidate for anticoag due to GI bleed Pulm: - Hypoxic respiratory failure s/p intubation - cpap trial again tomorrow GI: -sS/p Acute blood loss anemia 2/2 GI bleed, now stable - Hgb stable - remains on protonix drip - Dr Black consulted, appreciate recs; GI bleed stabilized, no active bleeding, no indication for surgery at this time - transaminitis likely due to shock liver, continues to improve - monitor LFTs, avoid hepatotoxic drugs Endo: - Metabolic Acidosis, likely due to DKA - insulin drip discontinued - Hgba1c 6.5, TSH 0.29 (low) Renal: - Acute Renal Failure likely 2/2 septic shock, Cr 0.8 today - monitor and replete electrolytes as needed ID: - Septic shock on arrival (Febrile, tachycardic, tachypneic, pressors required) - Currently on Cipro, vanco for abx as per ID Dispo: ICU, pending repeat trial tomorrow for possible extubation FEN: NPO, Tube feeds Access: Peripheral IVs, TLC, ETT, NGT Consults: ID, GI, Surg, Cardio, IR, Palliative Ppx: Protonix drip covers for GI, SCDs for DVT (avoid AC given GI bleed) Code Status: unknown, so defaults to FULL Patient seen, reviewed, and discussed with attending, Dr. Amanda Moser PGY-1 - Date & Time Date: 05/13/18 Time: 08:00
[2018-05-13] MEDS: Vancomycin 1 gm/NS 200 ml 1 GM/200 ML BAG IVPB SCH (18:35)
--- NOTE | 2018-05-13 19:18 | CP.PCM.PN ---
Subjective - Date & Time of Evaluation Date of Evaluation: 05/13/18 Time of Evaluation: 16:00 - Subjective Subjective: dictated Objective - Vital Signs/Intake and Output Vital Signs (last 24 hours): Temp Pulse Resp BP Pulse Ox 98.5 F 77 16 108/48 L 100 05/13/18 16:00 05/13/18 18:00 05/13/18 18:00 05/13/18 18:00 05/13/18 18:00 Intake and Output: 05/13/18 05/14/18 18:59 06:59 Intake Total 590 Output Total 4 Balance 586 - Medications Medications: Current Medications Albuterol/Ipratropium (Duoneb 3 Mg/0.5 Mg (3 Ml) Ud) 3 ml INH RQ6 PRN PRN Reason: Cough Last Admin: 05/11/18 15:30 Dose: 3 ml Albuterol/Ipratropium (Duoneb 3 Mg/0.5 Mg (3 Ml) Ud) 3 ml INH RQ6 JUDY Last Admin: 05/13/18 19:04 Dose: 3 ml Diltiazem HCl (Cardizem) 30 mg PO QID JUDY Last Admin: 05/13/18 18:35 Dose: 30 mg Metronidazole (Flagyl) 500 mg in 100 mls @ 100 mls/hr IVPB Q8H JUDY; Protocol Last Admin: 05/13/18 14:56 Dose: 100 mls/hr Ciprofloxacin (Cipro 200mg/100ml D5w) 100 mls @ 67 mls/hr IVPB Q12H JUDY; Protocol Last Admin: 05/13/18 17:12 Dose: 67 mls/hr Vancomycin/Sodium Chloride (Vancomycin 1 Gm/Ns 200 Ml) 1 gm in 200 mls @ 133.333 mls/hr IVPB Q24H JUDY; Protocol Stop: 05/16/18 19:31 Last Admin: 05/13/18 18:35 Dose: 133.333 mls/hr Insulin Aspart (Novolog) 0 unit SC Q6 JUDY; Protocol Last Admin: 05/13/18 18:35 Dose: 2 units Metoprolol Tartrate (Lopressor) 50 mg PO BID JUDY Last Admin: 05/13/18 17:12 Dose: 50 mg Neomycin/Polymyxin/Bacitracin (Neosporin Triple Antibiotic Oint) 0 gm TOP BID JUDY Last Admin: 05/13/18 17:14 Dose: 1 applic Nystatin (Nystop Topical Powder) 1 applic TOP BID JUDY Last Admin: 05/13/18 17:15 Dose: 1 applic Pantoprazole Sodium (Protonix Inj) 40 mg IVP Q12H JUDY Last Admin: 05/13/18 09:33 Dose: 40 mg Rosuvastatin Calcium (Crestor) 10 mg PO HS JUDY Last Admin: 05/12/18 21:26 Dose: 10 mg - Labs Labs: 05/13/18 05:57 05/13/18 05:57 PT 18.4 SECONDS (9.7-12.2) H 05/09/18 09:10 INR 1.7 05/09/18 09:10 APTT 25 SECONDS (21-34) 05/10/18 23:10
--- NOTE | 2018-05-13 23:33 | PN ---
DATE: 05/08/2018 SUBJECTIVE: The patient is still intubated in ICU. She was seen by Dr. العلي also for GI bleed, and there is no more bleed. They have started NG feedings. The PEG site appears little bit better than before. She is intubated. PHYSICAL EXAMINATION: VITAL SIGNS: Temperature is 99.7, pulse 82, blood pressure 116/41, respirations are on the vent. She is sedated. LUNGS: Clear. Secretions are less. HEART: S1, S2 is regular. ABDOMEN: Soft and nontender. No guarding, no rigidity present. EXTREMITIES: Have mild edema present. LABORATORY DATA: Labs are noted. Labs show white count is 13.9, hemoglobin 10.4, hematocrit 31.3, platelet count is 132. Sodium is 150, potassium 3.5, chloride is 117, CO2 is 24, BUN is 19, creatinine 0.8. AST is 45, ALT is 316, so ALT is markedly elevated. Liver enzymes are getting better. She did have hepatic ischemia due to hypotension before, and micro sauceda, her wound culture had Klebsiella, and she has been on Cipro and Flagyl. We had given her some vancomycin and she is getting neomycin, and nystatin to the GT tube site, and she is also on vancomycin 1 g daily. ASSESSMENT AND PLAN: We will continue these, and we will follow and hopefully, the patient will be extubated. Her last chest x-ray shows no acute finding, no significant interval change. We will continue present treatment, and she remains with acute respiratory failure, has a GT tube site infection which is resolving and she is back on GT tube feedings, and we will follow. Val Jones MD
[2018-05-14] MEDS: (Novolog) Insulin Aspart, Recombinant 100 u/ml 10 ml vial SC SCH ×4 (00:23→18:20)
[2018-05-14] MEDS: Albuterol-Ipratrop 3 mg / 0.5 (3 ml) UD INH SCH ×4 (01:18→19:32)
[2018-05-14] MEDS: Ciprofloxacin 200mg/100ml D5W 100 ML IVPB SCH ×2 (04:56→16:53)
[2018-05-14 05:32] LABS: ABG ALLEN TEST POS; ARTERIAL BLOOD GAS HCO3 26.6 mmol/L (21-28); ARTERIAL BLOOD GAS HEMOGLOBIN 18.1 g/dL (11.7-17.4); ARTERIAL BLOOD GAS O2 SAT 99.7 % (95-98); ARTERIAL BLOOD GAS PCO2 29 mm/Hg (35-45); ARTERIAL BLOOD GAS PH 7.52 (7.35-7.45); ARTERIAL BLOOD GAS PO2 157 mm/Hg (80-100); ARTERIAL BLOOD GAS TCO2 24.6 mmol/L (22-28)
[2018-05-14 05:46] LABS: BASO % 0.4 % (0.0-2.0); EOS # 0.4 K/uL (0.0-0.7); EOS % 3.1 % (0.0-4.0); HEMOGLOBIN 10.3 g/dL (11.0-16.0); LYMPH # 1.5 K/uL (1.0-4.3); LYMPH % 11.9 % (20.0-40.0); MEAN CELL VOLUME 89.1 fL (81.0-99.0); MEAN CORPUSCULAR HEMOGLOBIN 29.8 pg (27.0-31.0); MEAN CORPUSCULAR HGB CONC 33.5 g/dL (33.0-37.0); MEAN PLATELET VOLUME 8.6 fL (7.2-11.7); MONO # 0.9 K/uL (0.0-0.8); NEUT # 9.7 K/uL (1.8-7.0); NEUT % 77.6 % (50.0-75.0); RBC 3.45 Mil/uL (3.80-5.20); RED CELL DISTRIBUTION WIDTH 17.7 % (11.5-14.5); WHITE BLOOD COUNT 12.5 K/uL (4.8-10.8)
[2018-05-14 06:29] LABS: ALB/GLOB RATIO 1.1 (1.0-2.1); ALBUMIN 2.7 g/dL (3.5-5.0); ALT/SGPT 198 U/L (9-52); AST/SGOT 29 U/L (14-36); BLOOD UREA NITROGEN 17 mg/dL (7-17); CALCIUM 8.8 mg/dl (8.6-10.4); GFR NON-AFRICAN AMERICAN > 60
[2018-05-14] MEDS: metroNIDAZOLE IV 500 mg/100 ml 500 MG/100 ML BAG IVPB SCH ×2 (06:32→13:53)
[2018-05-14] MEDS: Bacitracin/Neomycin/Polymyxin Oint(30GM) TOP SCH ×2 (09:12→17:38)
--- NOTE | 2018-05-14 10:55 | CP.CCUPN ---
<Geovani Moser L - Last Filed: 05/14/18 17:06> CCU Subjective - Physician Review Subjective (Free Text): Critical Care Progress Note Patient examined at bedside. Patient is more alert today. Became very tachypneic on cpap trial. Will reattempt cpap trial tomorrow. Critical Care Time Spent (in minutes): 35 CCU Objective - Vital Signs / Intake & Output Vital Signs (Last 4 hours): Vital Signs Temp Pulse Resp BP Pulse Ox 05/14/18 10:00 163/82 H 05/14/18 09:59 94 H 28 H 100 05/14/18 09:01 91 H 16 111/49 L 100 05/14/18 08:00 98.4 F 101 H 16 153/68 H 97 05/14/18 07:07 87 16 161/63 H 100 05/14/18 07:02 94 H 15 100 05/14/18 07:00 95 H 14 100 Intake and Output (Last 8hrs): Intake & Output 05/13/18 05/14/18 05/14/18 22:59 06:59 14:59 Intake Total 540 440 220 Output Total 1 300 Balance 539 140 220 Weight 99 lb Intake: Intake, IV Amount 300 200 100 Right Proximal Port Int 100 Jug Y SITE Right Proximal Port 200 200 100 Internal Jugular Tube Feeding 240 240 120 Output: Urine 300 Urine, Voided 300 Urine/Stool Mix 1 Other: # Voids Urine, Voided 0 0 0 # Bowel Movements 0 0 1 - Physical Exam Head: Positive for: Atraumatic, Normocephalic Pupils: Positive for: PERRL. Negative for: Pinpoint Extroacular Muscles: Positive for: EOMI Conjunctiva: Positive for: Normal. Negative for: Injected, Icteric Mouth: Positive for: Moist Mucous Membranes, Other (ett in place ). Negative for: Dry Nose (External): Positive for: Atraumatic. Negative for: Abrasion, Contusion, Laceration Nose (Internal): Positive for: No Active Bleeding. Negative for: Epistaxis Neck: Positive for: Normal Range of Motion, Trachea Midline. Negative for: JVD Respiratory/Chest: Positive for: Clear to Auscultation, Good Air Exchange. Negative for: Accessory Muscle Use, Wheezes, Rales, Rhonchi Cardiovascular: Positive for: Regular Rate and Rhythm, Normal S1, S2, Peripheal Pulses Present (+2 radials). Negative for: Irregular Rhythm, Tachycardic, Bradycardic Abdomen: Positive for: Normal Bowel Sounds. Negative for: Tenderness, Distention Upper Extremity: Positive for: Normal Inspection, NORMAL PULSES. Negative for: Cyanosis, Edema Lower Extremity: Positive for: Normal Inspection, NORMAL PULSES (+1 dorsalis pedis bilaterally). Negative for: Edema Neurological: Positive for: GCS=15 Skin: Positive for: Warm, Dry, Normal Color Psychiatric: Positive for: Alert, Other - Medications Active Medications: Active Medications Generic Name Dose Route Start Last Admin Trade Name Freq PRN Reason Stop Dose Admin Albuterol/Ipratropium 3 ml 05/07/18 21:18 05/11/18 15:30 Duoneb 3 Mg/0.5 Mg (3 Ml) Ud INH 3 ml RQ6 PRN Administration Cough Albuterol/Ipratropium 3 ml 05/11/18 20:00 05/14/18 07:41 Duoneb 3 Mg/0.5 Mg (3 Ml) Ud INH 3 ml RQ6 JUDY Administration Diltiazem HCl 30 mg 05/12/18 10:00 05/14/18 09:12 Cardizem PO 30 mg QID JUDY Administration Metronidazole 500 mg in 100 mls @ 100 mls/hr 05/09/18 14:00 05/14/18 06:32 Flagyl IVPB 100 mls/hr Q8H JUDY Administration Protocol Ciprofloxacin 100 mls @ 67 mls/hr 05/09/18 17:00 05/14/18 04:56 Cipro 200mg/100ml D5w IVPB 67 mls/hr Q12H JUDY Administration Protocol Vancomycin/Sodium Chloride 1 gm in 200 mls @ 133.333 mls/hr 05/11/18 19:30 05/13/18 18:35 Vancomycin 1 Gm/Ns 200 Ml IVPB 05/16/18 19:31 133.333 mls/hr Q24H JUDY Administration Protocol Insulin Aspart 0 unit 05/12/18 00:00 05/14/18 06:33 Novolog SC 4 units Q6 JUDY Administration Protocol Metoprolol Tartrate 50 mg 05/12/18 10:00 05/14/18 09:12 Lopressor PO 50 mg BID JUDY Administration Neomycin/Polymyxin/Bacitracin 0 gm 05/10/18 10:00 05/14/18 09:12 Neosporin Triple Antibiotic Oint TOP 1 applic BID JUDY Administration Nystatin 1 applic 05/09/18 18:00 05/14/18 09:10 Nystop Topical Powder TOP 1 applic BID JUDY Administration Pantoprazole Sodium 40 mg 05/13/18 07:45 05/14/18 08:48 Protonix Inj IVP 40 mg Q12H JUDY Administration Rosuvastatin Calcium 10 mg 05/07/18 22:00 05/13/18 21:26 Crestor PO 10 mg HS JUDY Administration - Patient Studies Lab Studies: Lab Studies 05/14/18 05/14/18 05/14/18 Range/Units 05:49 05:33 05:33 WBC 12.5 H (4.8-10.8) K/uL RBC 3.45 L (3.80-5.20) Mil/uL Hgb 10.3 L (11.0-16.0) g/dL Hct 30.7 L (34.0-47.0) % MCV 89.1 (81.0-99.0) fL MCH 29.8 (27.0-31.0) pg MCHC 33.5 (33.0-37.0) g/dL RDW 17.7 H (11.5-14.5) % Plt Count 152 (130-400) K/uL MPV 8.6 (7.2-11.7) fL Neut % (Auto) 77.6 H (50.0-75.0) % Lymph % (Auto) 11.9 L (20.0-40.0) % [place] % (Auto) 7.0 (0.0-10.0) % Eos % (Auto) 3.1 (0.0-4.0) % Baso % (Auto) 0.4 (0.0-2.0) % Neut # (Auto) 9.7 H (1.8-7.0) K/uL Lymph # (Auto) 1.5 (1.0-4.3) K/uL [place] # (Auto) 0.9 H (0.0-0.8) K/uL Eos # (Auto) 0.4 (0.0-0.7) K/uL Baso # (Auto) 0.0 (0.0-0.2) K/uL Puncture Site pCO2 (35-45) mm/Hg pO2 (80-100) mm/Hg HCO3 (21-28) mmol/L ABG pH (7.35-7.45) ABG Total CO2 (22-28) mmol/L ABG O2 Saturation (95-98) % ABG Base Excess (-2.0-3.0) mmol/L ABG Hemoglobin (11.7-17.4) g/dL ABG Carboxyhemoglobin (0.5-1.5) % POC ABG HHb (Measured) (0.0-5.0) % ABG Methemoglobin (0.0-3.0) % Scout Test A-a O2 Difference mm/Hg Respiratory Index Hgb O2 Saturation (95.0-98.0) % Vent Mode Mechanical Rate FiO2 % Tidal Volume PEEP Sodium 146 (132-148) mmol/L Potassium 3.5 L (3.6-5.2) mmol/L Chloride 111 H (98-107) mmol/L Carbon Dioxide 27 (22-30) mmol/L Anion Gap 12 (10-20) BUN 17 (7-17) mg/dL Creatinine 0.8 (0.7-1.2) mg/dL Est GFR ( Amer) > 60 Est GFR (Non-Af Amer) > 60 POC Glucose (mg/dL) 215 H (65-110) mg/dL Random Glucose 178 H (65-105) mg/dL Calcium 8.8 (8.6-10.4) mg/dl Phosphorus 2.7 (2.5-4.5) mg/dL Magnesium 1.7 (1.6-2.3) mg/dL Total Bilirubin 0.5 (0.2-1.3) mg/dL AST 29 (14-36) U/L ALT 198 H D (9-52) U/L Alkaline Phosphatase 66 (38-126) U/L Total Protein 5.2 L (6.3-8.3) g/dL Albumin 2.7 L (3.5-5.0) g/dL Globulin 2.5 (2.2-3.9) gm/dL Albumin/Globulin Ratio 1.1 (1.0-2.1) 05/14/18 05/13/18 05/13/18 Range/Units 05:10 23:53 17:43 WBC (4.8-10.8) K/uL RBC (3.80-5.20) Mil/uL Hgb (11.0-16.0) g/dL Hct (34.0-47.0) % MCV (81.0-99.0) fL MCH (27.0-31.0) pg MCHC (33.0-37.0) g/dL RDW (11.5-14.5) % Plt Count (130-400) K/uL MPV (7.2-11.7) fL Neut % (Auto) (50.0-75.0) % Lymph % (Auto) (20.0-40.0) % [place] % (Auto) (0.0-10.0) % Eos % (Auto) (0.0-4.0) % Baso % (Auto) (0.0-2.0) % Neut # (Auto) (1.8-7.0) K/uL Lymph # (Auto) (1.0-4.3) K/uL [place] # (Auto) (0.0-0.8) K/uL Eos # (Auto) (0.0-0.7) K/uL Baso # (Auto) (0.0-0.2) K/uL Puncture Site Rr pCO2 29 L (35-45) mm/Hg pO2 157 H (80-100) mm/Hg HCO3 26.6 (21-28) mmol/L ABG pH 7.52 H (7.35-7.45) ABG Total CO2 24.6 (22-28) mmol/L ABG O2 Saturation 99.7 H (95-98) % ABG Base Excess 2.2 (-2.0-3.0) mmol/L ABG Hemoglobin 18.1 H (11.7-17.4) g/dL ABG Carboxyhemoglobin 1.7 H (0.5-1.5) % POC ABG HHb (Measured) 0.3 (0.0-5.0) % ABG Methemoglobin 0.9 (0.0-3.0) % Scout Test Pos A-a O2 Difference 21.0 mm/Hg Respiratory Index 0.1 Hgb O2 Saturation 97.1 (95.0-98.0) % Vent Mode Prvc Mechanical Rate 16 FiO2 30.0 % Tidal Volume 400 PEEP 5 Sodium (132-148) mmol/L Potassium (3.6-5.2) mmol/L Chloride (98-107) mmol/L Carbon Dioxide (22-30) mmol/L Anion Gap (10-20) BUN (7-17) mg/dL Creatinine (0.7-1.2) mg/dL Est GFR ( Amer) Est GFR (Non-Af Amer) POC Glucose (mg/dL) 186 H 188 H (65-110) mg/dL Random Glucose (65-105) mg/dL Calcium (8.6-10.4) mg/dl Phosphorus (2.5-4.5) mg/dL Magnesium (1.6-2.3) mg/dL Total Bilirubin (0.2-1.3) mg/dL AST (14-36) U/L ALT (9-52) U/L Alkaline Phosphatase (38-126) U/L Total Protein (6.3-8.3) g/dL Albumin (3.5-5.0) g/dL Globulin (2.2-3.9) gm/dL Albumin/Globulin Ratio (1.0-2.1) 05/13/18 Range/Units 11:07 WBC (4.8-10.8) K/uL RBC (3.80-5.20) Mil/uL Hgb (11.0-16.0) g/dL Hct (34.0-47.0) % MCV (81.0-99.0) fL MCH (27.0-31.0) pg MCHC (33.0-37.0) g/dL RDW (11.5-14.5) % Plt Count (130-400) K/uL MPV (7.2-11.7) fL Neut % (Auto) (50.0-75.0) % Lymph % (Auto) (20.0-40.0) % [place] % (Auto) (0.0-10.0) % Eos % (Auto) (0.0-4.0) % Baso % (Auto) (0.0-2.0) % Neut # (Auto) (1.8-7.0) K/uL Lymph # (Auto) (1.0-4.3) K/uL [place] # (Auto) (0.0-0.8) K/uL Eos # (Auto) (0.0-0.7) K/uL Baso # (Auto) (0.0-0.2) K/uL Puncture Site pCO2 (35-45) mm/Hg pO2 (80-100) mm/Hg HCO3 (21-28) mmol/L ABG pH (7.35-7.45) ABG Total CO2 (22-28) mmol/L ABG O2 Saturation (95-98) % ABG Base Excess (-2.0-3.0) mmol/L ABG Hemoglobin (11.7-17.4) g/dL ABG Carboxyhemoglobin (0.5-1.5) % POC ABG HHb (Measured) (0.0-5.0) % ABG Methemoglobin (0.0-3.0) % Scout Test A-a O2 Difference mm/Hg Respiratory Index Hgb O2 Saturation (95.0-98.0) % Vent Mode Mechanical Rate FiO2 % Tidal Volume PEEP Sodium (132-148) mmol/L Potassium (3.6-5.2) mmol/L Chloride (98-107) mmol/L Carbon Dioxide (22-30) mmol/L Anion Gap (10-20) BUN (7-17) mg/dL Creatinine (0.7-1.2) mg/dL Est GFR ( Amer) Est GFR (Non-Af Amer) POC Glucose (mg/dL) 201 H (65-110) mg/dL Random Glucose (65-105) mg/dL Calcium (8.6-10.4) mg/dl Phosphorus (2.5-4.5) mg/dL Magnesium (1.6-2.3) mg/dL Total Bilirubin (0.2-1.3) mg/dL AST (14-36) U/L ALT (9-52) U/L Alkaline Phosphatase (38-126) U/L Total Protein (6.3-8.3) g/dL Albumin (3.5-5.0) g/dL Globulin (2.2-3.9) gm/dL Albumin/Globulin Ratio (1.0-2.1) Laboratory Results - last 24 hr 10/05/13/18 05/13/18 11:07 17:43 23:53 WBC RBC Hgb Hct MCV MCH MCHC RDW Plt Count MPV Neut % (Auto) Lymph % (Auto) [place] % (Auto) Eos % (Auto) Baso % (Auto) Neut # (Auto) Lymph # (Auto) [place] # (Auto) Eos # (Auto) Baso # (Auto) Puncture Site pCO2 pO2 HCO3 ABG pH ABG Total CO2 ABG O2 Saturation ABG Base Excess ABG Hemoglobin ABG Carboxyhemoglobin POC ABG HHb (Measured) ABG Methemoglobin Scout Test A-a O2 Difference Respiratory Index Hgb O2 Saturation Vent Mode Mechanical Rate FiO2 Tidal Volume PEEP Sodium Potassium Chloride Carbon Dioxide Anion Gap BUN Creatinine Est GFR ( Amer) Est GFR (Non-Af Amer) POC Glucose (mg/dL) 201 H 188 H 186 H Random Glucose Calcium Phosphorus Magnesium Total Bilirubin AST ALT Alkaline Phosphatase Total Protein Albumin Globulin Albumin/Globulin Ratio 05/14/18 05/14/18 05/14/18 05:10 05:33 05:33 WBC 12.5 H RBC 3.45 L Hgb 10.3 L Hct 30.7 L MCV 89.1 MCH 29.8 MCHC 33.5 RDW 17.7 H Plt Count 152 MPV 8.6 Neut % (Auto) 77.6 H Lymph % (Auto) 11.9 L [place] % (Auto) 7.0 Eos % (Auto) 3.1 Baso % (Auto) 0.4 Neut # (Auto) 9.7 H Lymph # (Auto) 1.5 [place] # (Auto) 0.9 H Eos # (Auto) 0.4 Baso # (Auto) 0.0 Puncture Site Rr pCO2 29 L pO2 157 H HCO3 26.6 ABG pH 7.52 H ABG Total CO2 24.6 ABG O2 Saturation 99.7 H ABG Base Excess 2.2 ABG Hemoglobin 18.1 H ABG Carboxyhemoglobin 1.7 H POC ABG HHb (Measured) 0.3 ABG Methemoglobin 0.9 Scout Test Pos A-a O2 Difference 21.0 Respiratory Index 0.1 Hgb O2 Saturation 97.1 Vent Mode Prvc Mechanical Rate 16 FiO2 30.0 Tidal Volume 400 PEEP 5 Sodium 146 Potassium 3.5 L Chloride 111 H Carbon Dioxide 27 Anion Gap 12 BUN 17 Creatinine 0.8 Est GFR ( Amer) > 60 Est GFR (Non-Af Amer) > 60 POC Glucose (mg/dL) Random Glucose 178 H Calcium 8.8 Phosphorus 2.7 Magnesium 1.7 Total Bilirubin 0.5 AST 29 ALT 198 H D Alkaline Phosphatase 66 Total Protein 5.2 L Albumin 2.7 L Globulin 2.5 Albumin/Globulin Ratio 1.1 05/14/18 05:49 WBC RBC Hgb Hct MCV MCH MCHC RDW Plt Count MPV Neut % (Auto) Lymph % (Auto) [place] % (Auto) Eos % (Auto) Baso % (Auto) Neut # (Auto) Lymph # (Auto) [place] # (Auto) Eos # (Auto) Baso # (Auto) Puncture Site pCO2 pO2 HCO3 ABG pH ABG Total CO2 ABG O2 Saturation ABG Base Excess ABG Hemoglobin ABG Carboxyhemoglobin POC ABG HHb (Measured) ABG Methemoglobin Scout Test A-a O2 Difference Respiratory Index Hgb O2 Saturation Vent Mode Mechanical Rate FiO2 Tidal Volume PEEP Sodium Potassium Chloride Carbon Dioxide Anion Gap BUN Creatinine Est GFR ( Amer) Est GFR (Non-Af Amer) POC Glucose (mg/dL) 215 H Random Glucose Calcium Phosphorus Magnesium Total Bilirubin AST ALT Alkaline Phosphatase Total Protein Albumin Globulin Albumin/Globulin Ratio Fingerstick Blood Sugar Results: 215 Review of Systems - Review of Systems Systems not reviewed;Unavailable: Intubated Critical Care Progress Note - Nutrition Nutrition: Nutrition Category Date Time Status NPO Diet [DIET] Diets 05/09/18 Breakfast Active Assessment/Plan - Assessment and Plan (Free Text) Assessment: This is an 87 year old female with past medical history HTN, CHF, CAD, COPD, and DM2 who presented with altered mental status and was found to be septic and hyperglycemic. Admitted to ICU for sepsis/septic shock requiring pressors and s/p intubation. Currently off pressors and sedation, awake and alert, following simple commands, pending CPAP/PS trial to determine if can be extubated. Plan: Neuro: - intubated but off sedation, waking up and following simple commands - Anoxic brain injury, pending CT head and EEG when stable - maintain normothermia Cardio: - maintaining MAP > 65 - Risk of CAD/Type 2 [place] - cardizem 30 mg PO QID for tachycardia - not a candidate for anticoag due to GI bleed Pulm: - Hypoxic respiratory failure s/p intubation - cpap trial again tomorrow GI: - acute blood loss anemia 2/2 GI bleed, now stable - remains on protonix drip - Dr Black consulted, appreciate recs; GI bleed stabilized, no active bleeding, no indication for surgery at this time Endo: - metabolic acidosis resolved Renal: - Acute Renal Failure resolving - monitor and replete electrolytes as needed ID: - Septic shock on arrival - Currently on Cipro, vanco for abx as per ID Dispo: ICU, pending repeat trial tomorrow for possible extubation Ppx: Protonix drip covers for GI, SCDs for DVT (avoid AC given GI bleed) Patient seen, reviewed, and discussed with attending, Dr. Shukri Moser PGY-1 - Date & Time Date: 05/14/18 Time: 08:00 <Christopher Watt - Last Filed: 05/14/18 17:56> CCU Objective - Vital Signs / Intake & Output Vital Signs (Last 4 hours): Vital Signs Temp Pulse Resp BP Pulse Ox 05/14/18 17:00 94 H 17 147/68 100 05/14/18 16:00 97.6 F 93 H 17 125/58 L 84 L 05/14/18 15:00 90 15 125/67 05/14/18 14:00 87 16 125/58 L 85 L Intake and Output (Last 8hrs): Intake & Output 05/14/18 05/14/18 05/14/18 06:59 14:59 22:59 Intake Total 440 440 224 Output Total 300 2 202 Balance 140 438 22 Weight 99 lb Intake: Intake, IV Amount 200 200 134 Right Proximal Port 200 200 134 Internal Jugular Tube Feeding 240 240 90 Output: Urine 300 200 Urine, Voided 300 200 Urine/Stool Mix 2 2 Other: # Voids Urine, Voided 0 0 1 # Bowel Movements 0 0 - Medications Active Medications: Active Medications Generic Name Dose Route Start Last Admin Trade Name Freq PRN Reason Stop Dose Admin Albuterol/Ipratropium 3 ml 05/07/18 21:18 05/11/18 15:30 Duoneb 3 Mg/0.5 Mg (3 Ml) Ud INH 3 ml RQ6 PRN Administration Cough Albuterol/Ipratropium 3 ml 05/11/18 20:00 05/14/18 13:02 Duoneb 3 Mg/0.5 Mg (3 Ml) Ud INH 3 ml RQ6 JUDY Administration Diltiazem HCl 30 mg 05/12/18 10:00 05/14/18 17:38 Cardizem PO 30 mg QID JUDY Administration Metronidazole 500 mg in 100 mls @ 100 mls/hr 05/09/18 14:00 05/14/18 13:53 Flagyl IVPB 100 mls/hr Q8H JUDY Administration Protocol Ciprofloxacin 100 mls @ 67 mls/hr 05/09/18 17:00 05/14/18 16:53 Cipro 200mg/100ml D5w IVPB 67 mls/hr Q12H JUDY Administration Protocol Vancomycin/Sodium Chloride 1 gm in 200 mls @ 133.333 mls/hr 05/11/18 19:30 05/13/18 18:35 Vancomycin 1 Gm/Ns 200 Ml IVPB 05/16/18 19:31 133.333 mls/hr Q24H JUDY Administration Protocol Insulin Aspart 0 unit 05/12/18 00:00 05/14/18 12:04 Novolog SC 2 units Q6 JUDY Administration Protocol Metoprolol Tartrate 50 mg 05/12/18 10:00 05/14/18 17:38 Lopressor PO 50 mg BID JUDY Administration Neomycin/Polymyxin/Bacitracin 0 gm 05/10/18 10:00 05/14/18 17:38 Neosporin Triple Antibiotic Oint TOP 1 applic BID JUDY Administration Nystatin 1 applic 05/09/18 18:00 05/14/18 17:38 Nystop Topical Powder TOP 1 applic BID JUDY Administration Pantoprazole Sodium 40 mg 05/13/18 07:45 05/14/18 08:48 Protonix Inj IVP 40 mg Q12H JUDY Administration Rosuvastatin Calcium 10 mg 05/07/18 22:00 05/13/18 21:26 Crestor PO 10 mg HS JUDY Administration - Patient Studies Lab Studies: Lab Studies 05/14/18 05/14/18 05/14/18 Range/Units 11:40 11:10 05:49 WBC (4.8-10.8) K/uL RBC (3.80-5.20) Mil/uL Hgb (11.0-16.0) g/dL Hct (34.0-47.0) % MCV (81.0-99.0) fL MCH (27.0-31.0) pg MCHC (33.0-37.0) g/dL RDW (11.5-14.5) % Plt Count (130-400) K/uL MPV (7.2-11.7) fL Neut % (Auto) (50.0-75.0) % Lymph % (Auto) (20.0-40.0) % [place] % (Auto) (0.0-10.0) % Eos % (Auto) (0.0-4.0) % Baso % (Auto) (0.0-2.0) % Neut # (Auto) (1.8-7.0) K/uL Lymph # (Auto) (1.0-4.3) K/uL [place] # (Auto) (0.0-0.8) K/uL Eos # (Auto) (0.0-0.7) K/uL Baso # (Auto) (0.0-0.2) K/uL Puncture Site pCO2 (35-45) mm/Hg pO2 (80-100) mm/Hg HCO3 (21-28) mmol/L ABG pH (7.35-7.45) ABG Total CO2 (22-28) mmol/L ABG O2 Saturation (95-98) % ABG Base Excess (-2.0-3.0) mmol/L ABG Hemoglobin (11.7-17.4) g/dL ABG Carboxyhemoglobin (0.5-1.5) % POC ABG HHb (Measured) (0.0-5.0) % ABG Methemoglobin (0.0-3.0) % Scout Test A-a O2 Difference mm/Hg Respiratory Index Hgb O2 Saturation (95.0-98.0) % Vent Mode Mechanical Rate FiO2 % Tidal Volume PEEP Sodium (132-148) mmol/L Potassium (3.6-5.2) mmol/L Chloride (98-107) mmol/L Carbon Dioxide (22-30) mmol/L Anion Gap (10-20) BUN (7-17) mg/dL Creatinine (0.7-1.2) mg/dL Est GFR ( Amer) Est GFR (Non-Af Amer) POC Glucose (mg/dL) 195 H 215 H (65-110) mg/dL Random Glucose (65-105) mg/dL Calcium (8.6-10.4) mg/dl Phosphorus (2.5-4.5) mg/dL Magnesium (1.6-2.3) mg/dL Total Bilirubin (0.2-1.3) mg/dL AST (14-36) U/L ALT (9-52) U/L Alkaline Phosphatase (38-126) U/L Total Protein (6.3-8.3) g/dL Albumin (3.5-5.0) g/dL Globulin (2.2-3.9) gm/dL Albumin/Globulin Ratio (1.0-2.1) Random Vancomycin 18.2 ug/mL 05/14/18 05/14/18 05/14/18 Range/Units 05:33 05:33 05:10 WBC 12.5 H (4.8-10.8) K/uL RBC 3.45 L (3.80-5.20) Mil/uL Hgb 10.3 L (11.0-16.0) g/dL Hct 30.7 L (34.0-47.0) % MCV 89.1 (81.0-99.0) fL MCH 29.8 (27.0-31.0) pg MCHC 33.5 (33.0-37.0) g/dL RDW 17.7 H (11.5-14.5) % Plt Count 152 (130-400) K/uL MPV 8.6 (7.2-11.7) fL Neut % (Auto) 77.6 H (50.0-75.0) % Lymph % (Auto) 11.9 L (20.0-40.0) % [place] % (Auto) 7.0 (0.0-10.0) % Eos % (Auto) 3.1 (0.0-4.0) % Baso % (Auto) 0.4 (0.0-2.0) % Neut # (Auto) 9.7 H (1.8-7.0) K/uL Lymph # (Auto) 1.5 (1.0-4.3) K/uL [place] # (Auto) 0.9 H (0.0-0.8) K/uL Eos # (Auto) 0.4 (0.0-0.7) K/uL Baso # (Auto) 0.0 (0.0-0.2) K/uL Puncture Site Rr pCO2 29 L (35-45) mm/Hg pO2 157 H (80-100) mm/Hg HCO3 26.6 (21-28) mmol/L ABG pH 7.52 H (7.35-7.45) ABG Total CO2 24.6 (22-28) mmol/L ABG O2 Saturation 99.7 H (95-98) % ABG Base Excess 2.2 (-2.0-3.0) mmol/L ABG Hemoglobin 18.1 H (11.7-17.4) g/dL ABG Carboxyhemoglobin 1.7 H (0.5-1.5) % POC ABG HHb (Measured) 0.3 (0.0-5.0) % ABG Methemoglobin 0.9 (0.0-3.0) % Scout Test Pos A-a O2 Difference 21.0 mm/Hg Respiratory Index 0.1 Hgb O2 Saturation 97.1 (95.0-98.0) % Vent Mode Prvc Mechanical Rate 16 FiO2 30.0 % Tidal Volume 400 PEEP 5 Sodium 146 (132-148) mmol/L Potassium 3.5 L (3.6-5.2) mmol/L Chloride 111 H (98-107) mmol/L Carbon Dioxide 27 (22-30) mmol/L Anion Gap 12 (10-20) BUN 17 (7-17) mg/dL Creatinine 0.8 (0.7-1.2) mg/dL Est GFR ( Amer) > 60 Est GFR (Non-Af Amer) > 60 POC Glucose (mg/dL) (65-110) mg/dL Random Glucose 178 H (65-105) mg/dL Calcium 8.8 (8.6-10.4) mg/dl Phosphorus 2.7 (2.5-4.5) mg/dL Magnesium 1.7 (1.6-2.3) mg/dL Total Bilirubin 0.5 (0.2-1.3) mg/dL AST 29 (14-36) U/L ALT 198 H D (9-52) U/L Alkaline Phosphatase 66 (38-126) U/L Total Protein 5.2 L (6.3-8.3) g/dL Albumin 2.7 L (3.5-5.0) g/dL Globulin 2.5 (2.2-3.9) gm/dL Albumin/Globulin Ratio 1.1 (1.0-2.1) Random Vancomycin ug/mL 05/13/18 Range/Units 23:53 WBC (4.8-10.8) K/uL RBC (3.80-5.20) Mil/uL Hgb (11.0-16.0) g/dL Hct (34.0-47.0) % MCV (81.0-99.0) fL MCH (27.0-31.0) pg MCHC (33.0-37.0) g/dL RDW (11.5-14.5) % Plt Count (130-400) K/uL MPV (7.2-11.7) fL Neut % (Auto) (50.0-75.0) % Lymph % (Auto) (20.0-40.0) % [place] % (Auto) (0.0-10.0) % Eos % (Auto) (0.0-4.0) % Baso % (Auto) (0.0-2.0) % Neut # (Auto) (1.8-7.0) K/uL Lymph # (Auto) (1.0-4.3) K/uL [place] # (Auto) (0.0-0.8) K/uL Eos # (Auto) (0.0-0.7) K/uL Baso # (Auto) (0.0-0.2) K/uL Puncture Site pCO2 (35-45) mm/Hg pO2 (80-100) mm/Hg HCO3 (21-28) mmol/L ABG pH (7.35-7.45) ABG Total CO2 (22-28) mmol/L ABG O2 Saturation (95-98) % ABG Base Excess (-2.0-3.0) mmol/L ABG Hemoglobin (11.7-17.4) g/dL ABG Carboxyhemoglobin (0.5-1.5) % POC ABG HHb (Measured) (0.0-5.0) % ABG Methemoglobin (0.0-3.0) % Scout Test A-a O2 Difference mm/Hg Respiratory Index Hgb O2 Saturation (95.0-98.0) % Vent Mode Mechanical Rate FiO2 % Tidal Volume PEEP Sodium (132-148) mmol/L Potassium (3.6-5.2) mmol/L Chloride (98-107) mmol/L Carbon Dioxide (22-30) mmol/L Anion Gap (10-20) BUN (7-17) mg/dL Creatinine (0.7-1.2) mg/dL Est GFR ( Amer) Est GFR (Non-Af Amer) POC Glucose (mg/dL) 186 H (65-110) mg/dL Random Glucose (65-105) mg/dL Calcium (8.6-10.4) mg/dl Phosphorus (2.5-4.5) mg/dL Magnesium (1.6-2.3) mg/dL Total Bilirubin (0.2-1.3) mg/dL AST (14-36) U/L ALT (9-52) U/L Alkaline Phosphatase (38-126) U/L Total Protein (6.3-8.3) g/dL Albumin (3.5-5.0) g/dL Globulin (2.2-3.9) gm/dL Albumin/Globulin Ratio (1.0-2.1) Random Vancomycin ug/mL Laboratory Results - last 24 hr 05/13/18 05/14/18 05/14/18 23:53 05:10 05:33 WBC 12.5 H RBC 3.45 L Hgb 10.3 L Hct 30.7 L MCV 89.1 MCH 29.8 MCHC 33.5 RDW 17.7 H Plt Count 152 MPV 8.6 Neut % (Auto) 77.6 H Lymph % (Auto) 11.9 L [place] % (Auto) 7.0 Eos % (Auto) 3.1 Baso % (Auto) 0.4 Neut # (Auto) 9.7 H Lymph # (Auto) 1.5 [place] # (Auto) 0.9 H Eos # (Auto) 0.4 Baso # (Auto) 0.0 Puncture Site Rr pCO2 29 L pO2 157 H HCO3 26.6 ABG pH 7.52 H ABG Total CO2 24.6 ABG O2 Saturation 99.7 H ABG Base Excess 2.2 ABG Hemoglobin 18.1 H ABG Carboxyhemoglobin 1.7 H POC ABG HHb (Measured) 0.3 ABG Methemoglobin 0.9 Scout Test Pos A-a O2 Difference 21.0 Respiratory Index 0.1 Hgb O2 Saturation 97.1 Vent Mode Prvc Mechanical Rate 16 FiO2 30.0 Tidal Volume 400 PEEP 5 Sodium Potassium Chloride Carbon Dioxide Anion Gap BUN Creatinine Est GFR ( Amer) Est GFR (Non-Af Amer) POC Glucose (mg/dL) 186 H Random Glucose Calcium Phosphorus Magnesium Total Bilirubin AST ALT Alkaline Phosphatase Total Protein Albumin Globulin Albumin/Globulin Ratio Random Vancomycin 05/14/18 05/14/18 05/14/18 05:33 05:49 11:10 WBC RBC Hgb Hct MCV MCH MCHC RDW Plt Count MPV Neut % (Auto) Lymph % (Auto) [place] % (Auto) Eos % (Auto) Baso % (Auto) Neut # (Auto) Lymph # (Auto) [place] # (Auto) Eos # (Auto) Baso # (Auto) Puncture Site pCO2 pO2 HCO3 ABG pH ABG Total CO2 ABG O2 Saturation ABG Base Excess ABG Hemoglobin ABG Carboxyhemoglobin POC ABG HHb (Measured) ABG Methemoglobin Scout Test A-a O2 Difference Respiratory Index Hgb O2 Saturation Vent Mode Mechanical Rate FiO2 Tidal Volume PEEP Sodium 146 Potassium 3.5 L Chloride 111 H Carbon Dioxide 27 Anion Gap 12 BUN 17 Creatinine 0.8 Est GFR ( Amer) > 60 Est GFR (Non-Af Amer) > 60 POC Glucose (mg/dL) 215 H 195 H Random Glucose 178 H Calcium 8.8 Phosphorus 2.7 Magnesium 1.7 Total Bilirubin 0.5 AST 29 ALT 198 H D Alkaline Phosphatase 66 Total Protein 5.2 L Albumin 2.7 L Globulin 2.5 Albumin/Globulin Ratio 1.1 Random Vancomycin 05/14/18 11:40 WBC RBC Hgb Hct MCV MCH MCHC RDW Plt Count MPV Neut % (Auto) Lymph % (Auto) [place] % (Auto) Eos % (Auto) Baso % (Auto) Neut # (Auto) Lymph # (Auto) [place] # (Auto) Eos # (Auto) Baso # (Auto) Puncture Site pCO2 pO2 HCO3 ABG pH ABG Total CO2 ABG O2 Saturation ABG Base Excess ABG Hemoglobin ABG Carboxyhemoglobin POC ABG HHb (Measured) ABG Methemoglobin Scout Test A-a O2 Difference Respiratory Index Hgb O2 Saturation Vent Mode Mechanical Rate FiO2 Tidal Volume PEEP Sodium Potassium Chloride Carbon Dioxide Anion Gap BUN Creatinine Est GFR ( Amer) Est GFR (Non-Af Amer) POC Glucose (mg/dL) Random Glucose Calcium Phosphorus Magnesium Total Bilirubin AST ALT Alkaline Phosphatase Total Protein Albumin Globulin Albumin/Globulin Ratio Random Vancomycin 18.2 Critical Care Progress Note - Nutrition Nutrition: Nutrition Category Date Time Status NPO Diet [DIET] Diets 05/09/18 Breakfast Active Attending/Attestation - Attestation I have personally seen and examined this patient.: Yes I have fully participated in the care of the patient.: Yes I have reviewed all pertinent clinical information: Yes Notes (Text): 05/14/18 17:55 Patient seen and examined in the intensive care unit. Patient is not tolerating weaning Continue ventilatory support Follow-up CBC Follow up ABG and chest x-ray
--- NOTE | 2018-05-14 11:53 | RAD ---
Chest x-ray single frontal view HISTORY: Intubation. COMPARISON: 05/13/2018 FINDINGS: Endotracheal tube somewhat low lying approximately 1.2 centimeters above the renata. Right central venous catheter tip extending to the cavoatrial junction. Left-sided pacemaker. Venous congestion. Bilateral hilar prominence. Tortuous ectatic aorta. Calcification at the aortic knob. Status post median sternotomy and CABG. Degenerative changes in the spine. Surgical clips in the upper abdomen. Biapical pleural thickening with upper lobe granulomatous changes. Impression: Endotracheal tube somewhat low lying approximately 1.2 centimeters above the renata. Right central venous catheter tip extending to the cavoatrial junction. Left-sided pacemaker. Venous congestion. Bilateral hilar prominence. Tortuous ectatic aorta. Calcification at the aortic knob. Status post median sternotomy and CABG. Degenerative changes in the spine. Surgical clips in the upper abdomen. Biapical pleural thickening with upper lobe granulomatous changes.
--- NOTE | 2018-05-14 18:06 | CP.PCM.PN ---
Subjective - Date & Time of Evaluation Date of Evaluation: 05/14/18 Time of Evaluation: 16:00 - Subjective Subjective: patient seen today was very alert but still on ventilator for breathing. was trying to talk on tube Objective - Vital Signs/Intake and Output Vital Signs (last 24 hours): Temp Pulse Resp BP Pulse Ox 97.6 F 94 H 17 147/68 100 05/14/18 16:00 05/14/18 17:00 05/14/18 17:00 05/14/18 17:00 05/14/18 17:00 Intake and Output: 05/14/18 05/14/18 06:59 18:59 Intake Total 760 664 Output Total 300 204 Balance 460 460 - Medications Medications: Current Medications Albuterol/Ipratropium (Duoneb 3 Mg/0.5 Mg (3 Ml) Ud) 3 ml INH RQ6 PRN PRN Reason: Cough Last Admin: 05/11/18 15:30 Dose: 3 ml Albuterol/Ipratropium (Duoneb 3 Mg/0.5 Mg (3 Ml) Ud) 3 ml INH RQ6 [facility] Last Admin: 05/14/18 13:02 Dose: 3 ml Diltiazem HCl (Cardizem) 30 mg PO QID [facility] Last Admin: 05/14/18 17:38 Dose: 30 mg Metronidazole (Flagyl) 500 mg in 100 mls @ 100 mls/hr IVPB Q8H [facility]; Protocol Last Admin: 05/14/18 13:53 Dose: 100 mls/hr Ciprofloxacin (Cipro 200mg/100ml D5w) 100 mls @ 67 mls/hr IVPB Q12H [facility]; Protocol Last Admin: 05/14/18 16:53 Dose: 67 mls/hr Vancomycin/Sodium Chloride (Vancomycin 1 Gm/Ns 200 Ml) 1 gm in 200 mls @ 133.333 mls/hr IVPB Q24H [facility]; Protocol Stop: 05/16/18 19:31 Last Admin: 05/13/18 18:35 Dose: 133.333 mls/hr Insulin Aspart (Novolog) 0 unit SC Q6 [facility]; Protocol Last Admin: 05/14/18 12:04 Dose: 2 units Metoprolol Tartrate (Lopressor) 50 mg PO BID [facility] Last Admin: 05/14/18 17:38 Dose: 50 mg Neomycin/Polymyxin/Bacitracin (Neosporin Triple Antibiotic Oint) 0 gm TOP BID [facility] Last Admin: 05/14/18 17:38 Dose: 1 applic Nystatin (Nystop Topical Powder) 1 applic TOP BID [facility] Last Admin: 05/14/18 17:38 Dose: 1 applic Pantoprazole Sodium (Protonix Inj) 40 mg IVP Q12H [facility] Last Admin: 05/14/18 08:48 Dose: 40 mg Rosuvastatin Calcium (Crestor) 10 mg PO HS [facility] Last Admin: 05/13/18 21:26 Dose: 10 mg - Labs Labs: 05/14/18 05:33 05/14/18 05:33 PT 18.4 SECONDS (9.7-12.2) H 05/09/18 09:10 INR 1.7 05/09/18 09:10 APTT 25 SECONDS (21-34) 05/10/18 23:10 - Constitutional Appears: No Acute Distress - Head Exam Head Exam: ATRAUMATIC, NORMOCEPHALIC - Eye Exam Eye Exam: Normal appearance - Neck Exam Neck Exam: Normal Inspection Additional comments: intubated - Respiratory Exam Respiratory Exam: Decreased Breath Sounds - Cardiovascular Exam Cardiovascular Exam: Tachycardia, REGULAR RHYTHM - GI/Abdominal Exam GI & Abdominal Exam: Soft, Normal Bowel Sounds Additional comments: gt tube site clean dressing, improving - Extremities Exam Extremities Exam: Pedal Edema - Skin Skin Exam: Normal Color Assessment and Plan (1) Respiratory failure Assessment & Plan: still intubated Status: Acute (2) Infection of gastrostomy site Status: Acute (3) Ischemic hepatitis Status: Acute (4) Anemia Status: Acute - Assessment and Plan (Free Text) Assessment: plan to continue with Cipro and vancomycin will check random level in am
[2018-05-14] MEDS: Vancomycin 1 gm/NS 200 ml 1 GM/200 ML BAG IVPB SCH (18:37)
--- NOTE | 2018-05-14 19:50 | CP.PCM.PN ---
Subjective - Date & Time of Evaluation Date of Evaluation: 05/14/18 Time of Evaluation: 19:49 - Subjective Subjective: now on vent still cpap not tolerated this am tachypenic back on prvc awake responding no fever labs noted diarrhea noted on antibiotic will check stool continue current treatment Objective - Vital Signs/Intake and Output Vital Signs (last 24 hours): Temp Pulse Resp BP Pulse Ox 97.6 F 72 16 104/45 L 100 05/14/18 16:00 05/14/18 18:59 05/14/18 18:59 05/14/18 19:00 05/14/18 18:59 Intake and Output: 05/14/18 05/15/18 18:59 06:59 Intake Total 660 163 Output Total 202 Balance 458 163 - Medications Medications: Current Medications Albuterol/Ipratropium (Duoneb 3 Mg/0.5 Mg (3 Ml) Ud) 3 ml INH RQ6 PRN PRN Reason: Cough Last Admin: 05/11/18 15:30 Dose: 3 ml Albuterol/Ipratropium (Duoneb 3 Mg/0.5 Mg (3 Ml) Ud) 3 ml INH RQ6 [facility] Last Admin: 05/14/18 19:32 Dose: 3 ml Diltiazem HCl (Cardizem) 30 mg PO QID [facility] Last Admin: 05/14/18 17:38 Dose: 30 mg Ciprofloxacin (Cipro 200mg/100ml D5w) 100 mls @ 67 mls/hr IVPB Q12H [facility]; Protocol Last Admin: 05/14/18 16:53 Dose: 67 mls/hr Vancomycin/Sodium Chloride (Vancomycin 1 Gm/Ns 200 Ml) 1 gm in 200 mls @ 133.333 mls/hr IVPB Q24H [facility]; Protocol Stop: 05/16/18 19:31 Last Admin: 05/14/18 18:37 Dose: 133.333 mls/hr Insulin Aspart (Novolog) 0 unit SC Q6 [facility]; Protocol Last Admin: 05/14/18 18:20 Dose: 6 units Metoprolol Tartrate (Lopressor) 50 mg PO BID [facility] Last Admin: 05/14/18 17:38 Dose: 50 mg Neomycin/Polymyxin/Bacitracin (Neosporin Triple Antibiotic Oint) 0 gm TOP BID [facility] Last Admin: 05/14/18 17:38 Dose: 1 applic Nystatin (Nystop Topical Powder) 1 applic TOP BID [facility] Last Admin: 05/14/18 17:38 Dose: 1 applic Pantoprazole Sodium (Protonix Inj) 40 mg IVP Q12H [facility] Last Admin: 05/14/18 18:45 Dose: 40 mg Rosuvastatin Calcium (Crestor) 10 mg PO HS [facility] Last Admin: 05/13/18 21:26 Dose: 10 mg - Labs Labs: 05/14/18 05:33 05/14/18 05:33 PT 18.4 SECONDS (9.7-12.2) H 05/09/18 09:10 INR 1.7 05/09/18 09:10 APTT 25 SECONDS (21-34) 05/10/18 23:10
--- NOTE | 2018-05-15 00:54 | CP.PCM.PN ---
Subjective - Date & Time of Evaluation Date of Evaluation: 05/14/18 Time of Evaluation: 19:25 - Subjective Subjective: Patient see and evaluated Resp Failure on Ventilator No new events noted Objective - Vital Signs/Intake and Output Vital Signs (last 24 hours): Temp Pulse Resp BP Pulse Ox 97.6 F 86 16 126/59 L 100 05/14/18 20:00 05/14/18 20:00 05/14/18 20:00 05/14/18 19:59 05/14/18 20:00 Intake and Output: 05/14/18 05/15/18 18:59 06:59 Intake Total 660 193 Output Total 202 Balance 458 193 - Medications Medications: Current Medications Albuterol/Ipratropium (Duoneb 3 Mg/0.5 Mg (3 Ml) Ud) 3 ml INH RQ6 PRN PRN Reason: Cough Last Admin: 05/11/18 15:30 Dose: 3 ml Albuterol/Ipratropium (Duoneb 3 Mg/0.5 Mg (3 Ml) Ud) 3 ml INH RQ6 [facility] Last Admin: 05/14/18 19:32 Dose: 3 ml Diltiazem HCl (Cardizem) 30 mg PO QID [facility] Last Admin: 05/14/18 21:58 Dose: 30 mg Ciprofloxacin (Cipro 200mg/100ml D5w) 100 mls @ 67 mls/hr IVPB Q12H [facility]; Protocol Last Admin: 05/14/18 16:53 Dose: 67 mls/hr Vancomycin/Sodium Chloride (Vancomycin 1 Gm/Ns 200 Ml) 1 gm in 200 mls @ 133.333 mls/hr IVPB Q24H [facility]; Protocol Stop: 05/16/18 19:31 Last Admin: 05/14/18 18:37 Dose: 133.333 mls/hr Insulin Aspart (Novolog) 0 unit SC Q6 [facility]; Protocol Last Admin: 05/15/18 00:00 Dose: 2 units Metoprolol Tartrate (Lopressor) 50 mg PO BID [facility] Last Admin: 05/14/18 17:38 Dose: 50 mg Neomycin/Polymyxin/Bacitracin (Neosporin Triple Antibiotic Oint) 0 gm TOP BID [facility] Last Admin: 05/14/18 17:38 Dose: 1 applic Nystatin (Nystop Topical Powder) 1 applic TOP BID [facility] Last Admin: 05/14/18 17:38 Dose: 1 applic Pantoprazole Sodium (Protonix Inj) 40 mg IVP Q12H [facility] Last Admin: 05/14/18 18:45 Dose: 40 mg Rosuvastatin Calcium (Crestor) 10 mg PO HS [facility] Last Admin: 05/14/18 21:58 Dose: 10 mg - Labs Labs: 05/14/18 05:33 05/14/18 05:33 PT 18.4 SECONDS (9.7-12.2) H 05/09/18 09:10 INR 1.7 05/09/18 09:10 APTT 25 SECONDS (21-34) 05/10/18 23:10
[2018-05-15] MEDS: Albuterol-Ipratrop 3 mg / 0.5 (3 ml) UD INH SCH ×4 (01:12→19:13)
[2018-05-15 04:41] LABS: ABG ALLEN TEST POS; ARTERIAL BLOOD GAS HCO3 25.8 mmol/L (21-28); ARTERIAL BLOOD GAS HEMOGLOBIN 13.7 g/dL (11.7-17.4); ARTERIAL BLOOD GAS O2 SAT 99.2 % (95-98); ARTERIAL BLOOD GAS PCO2 30 mm/Hg (35-45); ARTERIAL BLOOD GAS PO2 144 mm/Hg (80-100); ARTERIAL BLOOD GAS TCO2 24.3 mmol/L (22-28)
[2018-05-15] MEDS: (Novolog) Insulin Aspart, Recombinant 100 u/ml 10 ml vial SC SCH ×4 (05:19→18:08)
[2018-05-15] MEDS: Ciprofloxacin 200mg/100ml D5W 100 ML IVPB SCH ×2 (05:20→16:01)
[2018-05-15 06:04] LABS: BASO % 0.3 % (0.0-2.0); EOS # 0.4 K/uL (0.0-0.7); EOS % 3.2 % (0.0-4.0); HEMOGLOBIN 9.9 g/dL (11.0-16.0); LYMPH # 1.2 K/uL (1.0-4.3); LYMPH % 10.8 % (20.0-40.0); MEAN CELL VOLUME 89.2 fL (81.0-99.0); MEAN CORPUSCULAR HEMOGLOBIN 29.8 pg (27.0-31.0); MEAN CORPUSCULAR HGB CONC 33.4 g/dL (33.0-37.0); MEAN PLATELET VOLUME 8.7 fL (7.2-11.7); MONO # 1.1 K/uL (0.0-0.8); MONO % 9.2 % (0.0-10.0); NEUT # 8.7 K/uL (1.8-7.0); NEUT % 76.5 % (50.0-75.0); RBC 3.32 Mil/uL (3.80-5.20); RED CELL DISTRIBUTION WIDTH 17.7 % (11.5-14.5); WHITE BLOOD COUNT 11.4 K/uL (4.8-10.8)
[2018-05-15 06:25] LABS: ALB/GLOB RATIO 1.1 (1.0-2.1); ALBUMIN 2.7 g/dL (3.5-5.0); ALT/SGPT 125 U/L (9-52); AST/SGOT 23 U/L (14-36); BLOOD UREA NITROGEN 15 mg/dL (7-17); CALCIUM 8.8 mg/dl (8.6-10.4); GFR NON-AFRICAN AMERICAN > 60
--- NOTE | 2018-05-15 09:15 | RAD ---
Date of service: 05/15/2018 HISTORY: s/p intubation COMPARISON: 05/14/2018 FINDINGS: LUNGS: No active pulmonary disease. PLEURA: No significant pleural effusion identified, no pneumothorax apparent. CARDIOVASCULAR: Normal heart size. CABG. Permanent pacemaker. ET tube unchanged. Right IJ central venous catheter unchanged. OSSEOUS STRUCTURES: No significant abnormalities. VISUALIZED UPPER ABDOMEN: Normal. OTHER FINDINGS: None. IMPRESSION: No active disease.
[2018-05-15] MEDS: Potassium Chloride 20 mEq/15 ml LIQ UD PO SCH (09:32)
[2018-05-15] MEDS: Bacitracin/Neomycin/Polymyxin Oint(30GM) TOP SCH ×2 (09:39→17:10)
--- NOTE | 2018-05-15 10:51 | CP.PCM.PN ---
Subjective - Date & Time of Evaluation Date of Evaluation: 05/15/18 Time of Evaluation: 10:48 - Subjective Subjective: F/U GI Bleed On NG feeds. Loose BMs yesterday, on antibiotics. CDiff toxin negative On vent No signs of GI bleeding Objective - Vital Signs/Intake and Output Vital Signs (last 24 hours): Temp Pulse Resp BP Pulse Ox 99.1 F 108 H 34 H 138/71 100 05/15/18 08:00 05/15/18 10:00 05/15/18 10:00 05/15/18 10:00 05/15/18 10:00 Intake and Output: 05/15/18 05/15/18 06:59 18:59 Intake Total 693 120 Output Total 250 Balance 443 120 - Medications Medications: Current Medications Albuterol/Ipratropium (Duoneb 3 Mg/0.5 Mg (3 Ml) Ud) 3 ml INH RQ6 PRN PRN Reason: Cough Last Admin: 05/11/18 15:30 Dose: 3 ml Albuterol/Ipratropium (Duoneb 3 Mg/0.5 Mg (3 Ml) Ud) 3 ml INH RQ6 [facility] Last Admin: 05/15/18 07:39 Dose: 3 ml Diltiazem HCl (Cardizem) 30 mg PO QID [facility] Last Admin: 05/15/18 09:32 Dose: 30 mg Ciprofloxacin (Cipro 200mg/100ml D5w) 100 mls @ 67 mls/hr IVPB Q12H [facility]; Protocol Last Admin: 05/15/18 05:20 Dose: 67 mls/hr Vancomycin/Sodium Chloride (Vancomycin 1 Gm/Ns 200 Ml) 1 gm in 200 mls @ 133.333 mls/hr IVPB Q24H [facility]; Protocol Stop: 05/16/18 19:31 Last Admin: 05/14/18 18:37 Dose: 133.333 mls/hr Insulin Aspart (Novolog) 0 unit SC Q6 [facility]; Protocol Last Admin: 05/15/18 05:19 Dose: 2 units Metoprolol Tartrate (Lopressor) 50 mg PO BID [facility] Last Admin: 05/15/18 09:32 Dose: 50 mg Neomycin/Polymyxin/Bacitracin (Neosporin Triple Antibiotic Oint) 0 gm TOP BID [facility] Last Admin: 05/15/18 09:39 Dose: 1 applic Nystatin (Nystop Topical Powder) 1 applic TOP BID [facility] Last Admin: 05/15/18 09:39 Dose: 1 applic Pantoprazole Sodium (Protonix Inj) 40 mg IVP Q12H [facility] Last Admin: 05/15/18 07:00 Dose: 40 mg Rosuvastatin Calcium (Crestor) 10 mg PO HS [facility] Last Admin: 05/14/18 21:58 Dose: 10 mg - Labs Labs: 05/15/18 05:54 05/15/18 05:54 PT 18.4 SECONDS (9.7-12.2) H 05/09/18 09:10 INR 1.7 05/09/18 09:10 APTT 25 SECONDS (21-34) 05/10/18 23:10 - Constitutional Appears: No Acute Distress - Head Exam Head Exam: NORMOCEPHALIC - Cardiovascular Exam Cardiovascular Exam: REGULAR RHYTHM - GI/Abdominal Exam GI & Abdominal Exam: Soft. absent: Tenderness Assessment and Plan (1) Diabetic ketoacidosis Status: Acute (2) GI bleed Assessment & Plan: Stable on PPI DU Status: Acute (3) Sepsis Status: Acute (4) Electrolyte abnormality Status: Acute (5) Ischemic hepatitis Assessment & Plan: resolved Status: Acute (6) Respiratory failure with hypoxia Assessment & Plan: Remains on Vent Continue NG feeds. Increase as tolerated Status: Acute
--- NOTE | 2018-05-15 14:30 | CP.CCUPN ---
<Dylon Hwang - Last Filed: 05/15/18 16:31> CCU Subjective - Physician Review Subjective (Free Text): Pt seen and examined at bedside. Pt unable to provide ROS, pt is able to nod and follows commands. cpap trial and possible extubation today. 05/15/18 14:34 CCU Objective - Vital Signs / Intake & Output Vital Signs (Last 4 hours): Vital Signs Temp Pulse Resp BP Pulse Ox 05/15/18 12:08 86 37 H 108/87 100 05/15/18 12:00 99 F 100 05/15/18 11:00 86 28 H 136/66 98 Intake and Output (Last 8hrs): Intake & Output 05/14/18 05/15/18 05/15/18 22:59 06:59 14:59 Intake Total 573 340 185 Output Total 201 250 1 Balance 372 90 184 Weight 103 lb Intake: Intake, IV Amount 233 100 Right Proximal Port 233 100 Internal Jugular Tube Feeding 240 240 185 Other 100 Output: Urine 200 250 Urine, Voided 200 250 Urine/Stool Mix 1 1 Other: # Voids Urine, Voided 0 0 0 # Bowel Movements 0 1 0 - Physical Exam Head: Positive for: Atraumatic, Normocephalic Pupils: Positive for: PERRL. Negative for: Pinpoint Extroacular Muscles: Positive for: EOMI Conjunctiva: Positive for: Normal. Negative for: Injected, Icteric Mouth: Positive for: Moist Mucous Membranes, Other (ett in place ). Negative for: Dry Nose (External): Positive for: Atraumatic. Negative for: Abrasion, Contusion, Laceration Nose (Internal): Positive for: No Active Bleeding. Negative for: Epistaxis Neck: Positive for: Normal Range of Motion, Trachea Midline. Negative for: JVD Respiratory/Chest: Positive for: Clear to Auscultation, Good Air Exchange. Negative for: Accessory Muscle Use, Wheezes, Rales, Rhonchi Cardiovascular: Positive for: Regular Rate and Rhythm, Normal S1, S2, Peripheal Pulses Present (+2 radials). Negative for: Irregular Rhythm, Tachycardic, Bradycardic Abdomen: Positive for: Normal Bowel Sounds. Negative for: Tenderness, Distention Upper Extremity: Positive for: Normal Inspection, NORMAL PULSES. Negative for: Cyanosis, Edema Lower Extremity: Positive for: Normal Inspection, NORMAL PULSES (+1 dorsalis pedis bilaterally). Negative for: Edema Neurological: Positive for: GCS=15 Skin: Positive for: Warm, Dry, Normal Color Psychiatric: Positive for: Alert, Other - Medications Active Medications: Active Medications Generic Name Dose Route Start Last Admin Trade Name Freq PRN Reason Stop Dose Admin Albuterol/Ipratropium 3 ml 05/07/18 21:18 05/11/18 15:30 Duoneb 3 Mg/0.5 Mg (3 Ml) Ud INH 3 ml RQ6 PRN Administration Cough Albuterol/Ipratropium 3 ml 05/11/18 20:00 05/15/18 14:11 Duoneb 3 Mg/0.5 Mg (3 Ml) Ud INH 3 ml RQ6 JUDY Administration Diltiazem HCl 30 mg 05/12/18 10:00 05/15/18 09:32 Cardizem PO 30 mg QID JUDY Administration Ciprofloxacin 100 mls @ 67 mls/hr 05/09/18 17:00 05/15/18 05:20 Cipro 200mg/100ml D5w IVPB 67 mls/hr Q12H JUDY Administration Protocol Vancomycin/Sodium Chloride 1 gm in 200 mls @ 133.333 mls/hr 05/11/18 19:30 05/14/18 18:37 Vancomycin 1 Gm/Ns 200 Ml IVPB 05/16/18 19:31 133.333 mls/hr Q24H JUDY Administration Protocol Insulin Aspart 0 unit 05/12/18 00:00 05/15/18 11:51 Novolog SC 6 units Q6 JUDY Administration Protocol Metoprolol Tartrate 50 mg 05/12/18 10:00 05/15/18 09:32 Lopressor PO 50 mg BID JUDY Administration Neomycin/Polymyxin/Bacitracin 0 gm 05/10/18 10:00 05/15/18 09:39 Neosporin Triple Antibiotic Oint TOP 1 applic BID JUDY Administration Nystatin 1 applic 05/09/18 18:00 05/15/18 09:39 Nystop Topical Powder TOP 1 applic BID JUDY Administration Pantoprazole Sodium 40 mg 05/13/18 07:45 05/15/18 07:00 Protonix Inj IVP 40 mg Q12H JUDY Administration Rosuvastatin Calcium 10 mg 05/07/18 22:00 05/14/18 21:58 Crestor PO 10 mg HS JUDY Administration - Patient Studies Lab Studies: Lab Studies 05/15/18 05/15/18 05/15/18 Range/Units Unknown 05:54 05:54 WBC (4.8-10.8) K/uL RBC (3.80-5.20) Mil/uL Hgb (11.0-16.0) g/dL Hct (34.0-47.0) % MCV (81.0-99.0) fL MCH (27.0-31.0) pg MCHC (33.0-37.0) g/dL RDW (11.5-14.5) % Plt Count (130-400) K/uL MPV (7.2-11.7) fL Neut % (Auto) (50.0-75.0) % Lymph % (Auto) (20.0-40.0) % [place] % (Auto) (0.0-10.0) % Eos % (Auto) (0.0-4.0) % Baso % (Auto) (0.0-2.0) % Neut # (Auto) (1.8-7.0) K/uL Lymph # (Auto) (1.0-4.3) K/uL [place] # (Auto) (0.0-0.8) K/uL Eos # (Auto) (0.0-0.7) K/uL Baso # (Auto) (0.0-0.2) K/uL Puncture Site pCO2 (35-45) mm/Hg pO2 (80-100) mm/Hg HCO3 (21-28) mmol/L ABG pH (7.35-7.45) ABG Total CO2 (22-28) mmol/L ABG O2 Saturation (95-98) % ABG Base Excess (-2.0-3.0) mmol/L ABG Hemoglobin (11.7-17.4) g/dL ABG Carboxyhemoglobin (0.5-1.5) % POC ABG HHb (Measured) (0.0-5.0) % ABG Methemoglobin (0.0-3.0) % Scout Test A-a O2 Difference mm/Hg Respiratory Index Hgb O2 Saturation (95.0-98.0) % Vent Mode Mechanical Rate FiO2 % Tidal Volume PEEP Sodium 142 (132-148) mmol/L Potassium 3.4 L (3.6-5.2) mmol/L Chloride 109 H (98-107) mmol/L Carbon Dioxide 24 (22-30) mmol/L Anion Gap 12 (10-20) BUN 15 (7-17) mg/dL Creatinine 0.7 (0.7-1.2) mg/dL Est GFR ( Amer) > 60 Est GFR (Non-Af Amer) > 60 POC Glucose (mg/dL) (65-110) mg/dL Random Glucose 190 H (65-105) mg/dL Calcium 8.8 (8.6-10.4) mg/dl Phosphorus 2.9 (2.5-4.5) mg/dL Magnesium 1.7 (1.6-2.3) mg/dL Total Bilirubin 0.4 (0.2-1.3) mg/dL AST 23 (14-36) U/L ALT 125 H D (9-52) U/L Alkaline Phosphatase 61 (38-126) U/L Total Protein 5.2 L (6.3-8.3) g/dL Albumin 2.7 L (3.5-5.0) g/dL Globulin 2.5 (2.2-3.9) gm/dL Albumin/Globulin Ratio 1.1 (1.0-2.1) Random Vancomycin 25.3 ug/mL C. difficile Ag & Toxin Negative (NEGATIVE) 05/15/18 05/15/18 05/15/18 Range/Units 05:54 05:04 04:30 WBC 11.4 H (4.8-10.8) K/uL RBC 3.32 L (3.80-5.20) Mil/uL Hgb 9.9 L (11.0-16.0) g/dL Hct 29.6 L (34.0-47.0) % MCV 89.2 (81.0-99.0) fL MCH 29.8 (27.0-31.0) pg MCHC 33.4 (33.0-37.0) g/dL RDW 17.7 H (11.5-14.5) % Plt Count 184 (130-400) K/uL MPV 8.7 (7.2-11.7) fL Neut % (Auto) 76.5 H (50.0-75.0) % Lymph % (Auto) 10.8 L (20.0-40.0) % [place] % (Auto) 9.2 (0.0-10.0) % Eos % (Auto) 3.2 (0.0-4.0) % Baso % (Auto) 0.3 (0.0-2.0) % Neut # (Auto) 8.7 H (1.8-7.0) K/uL Lymph # (Auto) 1.2 (1.0-4.3) K/uL [place] # (Auto) 1.1 H (0.0-0.8) K/uL Eos # (Auto) 0.4 (0.0-0.7) K/uL Baso # (Auto) 0.0 (0.0-0.2) K/uL Puncture Site Rr pCO2 30 L (35-45) mm/Hg pO2 144 H (80-100) mm/Hg HCO3 25.8 (21-28) mmol/L ABG pH 7.50 H (7.35-7.45) ABG Total CO2 24.3 (22-28) mmol/L ABG O2 Saturation 99.2 H (95-98) % ABG Base Excess 1.1 (-2.0-3.0) mmol/L ABG Hemoglobin 13.7 (11.7-17.4) g/dL ABG Carboxyhemoglobin 1.6 H (0.5-1.5) % POC ABG HHb (Measured) 0.8 (0.0-5.0) % ABG Methemoglobin 0.9 (0.0-3.0) % Scout Test Pos A-a O2 Difference 32.0 mm/Hg Respiratory Index 0.2 Hgb O2 Saturation 96.7 (95.0-98.0) % Vent Mode Prvc Mechanical Rate 16 FiO2 30.0 % Tidal Volume 400 PEEP 5 Sodium (132-148) mmol/L Potassium (3.6-5.2) mmol/L Chloride (98-107) mmol/L Carbon Dioxide (22-30) mmol/L Anion Gap (10-20) BUN (7-17) mg/dL Creatinine (0.7-1.2) mg/dL Est GFR ( Amer) Est GFR (Non-Af Amer) POC Glucose (mg/dL) 195 H (65-110) mg/dL Random Glucose (65-105) mg/dL Calcium (8.6-10.4) mg/dl Phosphorus (2.5-4.5) mg/dL Magnesium (1.6-2.3) mg/dL Total Bilirubin (0.2-1.3) mg/dL AST (14-36) U/L ALT (9-52) U/L Alkaline Phosphatase (38-126) U/L Total Protein (6.3-8.3) g/dL Albumin (3.5-5.0) g/dL Globulin (2.2-3.9) gm/dL Albumin/Globulin Ratio (1.0-2.1) Random Vancomycin ug/mL C. difficile Ag & Toxin (NEGATIVE) 05/14/18 05/14/18 Range/Units 23:19 17:55 WBC (4.8-10.8) K/uL RBC (3.80-5.20) Mil/uL Hgb (11.0-16.0) g/dL Hct (34.0-47.0) % MCV (81.0-99.0) fL MCH (27.0-31.0) pg MCHC (33.0-37.0) g/dL RDW (11.5-14.5) % Plt Count (130-400) K/uL MPV (7.2-11.7) fL Neut % (Auto) (50.0-75.0) % Lymph % (Auto) (20.0-40.0) % [place] % (Auto) (0.0-10.0) % Eos % (Auto) (0.0-4.0) % Baso % (Auto) (0.0-2.0) % Neut # (Auto) (1.8-7.0) K/uL Lymph # (Auto) (1.0-4.3) K/uL [place] # (Auto) (0.0-0.8) K/uL Eos # (Auto) (0.0-0.7) K/uL Baso # (Auto) (0.0-0.2) K/uL Puncture Site pCO2 (35-45) mm/Hg pO2 (80-100) mm/Hg HCO3 (21-28) mmol/L ABG pH (7.35-7.45) ABG Total CO2 (22-28) mmol/L ABG O2 Saturation (95-98) % ABG Base Excess (-2.0-3.0) mmol/L ABG Hemoglobin (11.7-17.4) g/dL ABG Carboxyhemoglobin (0.5-1.5) % POC ABG HHb (Measured) (0.0-5.0) % ABG Methemoglobin (0.0-3.0) % Scout Test A-a O2 Difference mm/Hg Respiratory Index Hgb O2 Saturation (95.0-98.0) % Vent Mode Mechanical Rate FiO2 % Tidal Volume PEEP Sodium (132-148) mmol/L Potassium (3.6-5.2) mmol/L Chloride (98-107) mmol/L Carbon Dioxide (22-30) mmol/L Anion Gap (10-20) BUN (7-17) mg/dL Creatinine (0.7-1.2) mg/dL Est GFR ( Amer) Est GFR (Non-Af Amer) POC Glucose (mg/dL) 192 H 258 H (65-110) mg/dL Random Glucose (65-105) mg/dL Calcium (8.6-10.4) mg/dl Phosphorus (2.5-4.5) mg/dL Magnesium (1.6-2.3) mg/dL Total Bilirubin (0.2-1.3) mg/dL AST (14-36) U/L ALT (9-52) U/L Alkaline Phosphatase (38-126) U/L Total Protein (6.3-8.3) g/dL Albumin (3.5-5.0) g/dL Globulin (2.2-3.9) gm/dL Albumin/Globulin Ratio (1.0-2.1) Random Vancomycin ug/mL C. difficile Ag & Toxin (NEGATIVE) Laboratory Results - last 24 hr 05/14/18 05/14/18 05/15/18 17:55 23:19 04:30 WBC RBC Hgb Hct MCV MCH MCHC RDW Plt Count MPV Neut % (Auto) Lymph % (Auto) [place] % (Auto) Eos % (Auto) Baso % (Auto) Neut # (Auto) Lymph # (Auto) [place] # (Auto) Eos # (Auto) Baso # (Auto) Puncture Site Rr pCO2 30 L pO2 144 H HCO3 25.8 ABG pH 7.50 H ABG Total CO2 24.3 ABG O2 Saturation 99.2 H ABG Base Excess 1.1 ABG Hemoglobin 13.7 ABG Carboxyhemoglobin 1.6 H POC ABG HHb (Measured) 0.8 ABG Methemoglobin 0.9 Scout Test Pos A-a O2 Difference 32.0 Respiratory Index 0.2 Hgb O2 Saturation 96.7 Vent Mode Prvc Mechanical Rate 16 FiO2 30.0 Tidal Volume 400 PEEP 5 Sodium Potassium Chloride Carbon Dioxide Anion Gap BUN Creatinine Est GFR ( Amer) Est GFR (Non-Af Amer) POC Glucose (mg/dL) 258 H 192 H Random Glucose Calcium Phosphorus Magnesium Total Bilirubin AST ALT Alkaline Phosphatase Total Protein Albumin Globulin Albumin/Globulin Ratio Random Vancomycin C. difficile Ag & Toxin 05/15/18 05/15/18 05/15/18 05:04 05:54 05:54 WBC 11.4 H RBC 3.32 L Hgb 9.9 L Hct 29.6 L MCV 89.2 MCH 29.8 MCHC 33.4 RDW 17.7 H Plt Count 184 MPV 8.7 Neut % (Auto) 76.5 H Lymph % (Auto) 10.8 L [place] % (Auto) 9.2 Eos % (Auto) 3.2 Baso % (Auto) 0.3 Neut # (Auto) 8.7 H Lymph # (Auto) 1.2 [place] # (Auto) 1.1 H Eos # (Auto) 0.4 Baso # (Auto) 0.0 Puncture Site pCO2 pO2 HCO3 ABG pH ABG Total CO2 ABG O2 Saturation ABG Base Excess ABG Hemoglobin ABG Carboxyhemoglobin POC ABG HHb (Measured) ABG Methemoglobin Scout Test A-a O2 Difference Respiratory Index Hgb O2 Saturation Vent Mode Mechanical Rate FiO2 Tidal Volume PEEP Sodium 142 Potassium 3.4 L Chloride 109 H Carbon Dioxide 24 Anion Gap 12 BUN 15 Creatinine 0.7 Est GFR ( Amer) > 60 Est GFR (Non-Af Amer) > 60 POC Glucose (mg/dL) 195 H Random Glucose 190 H Calcium 8.8 Phosphorus 2.9 Magnesium 1.7 Total Bilirubin 0.4 AST 23 ALT 125 H D Alkaline Phosphatase 61 Total Protein 5.2 L Albumin 2.7 L Globulin 2.5 Albumin/Globulin Ratio 1.1 Random Vancomycin C. difficile Ag & Toxin 05/15/18 05/15/18 05:54 Unknown WBC RBC Hgb Hct MCV MCH MCHC RDW Plt Count MPV Neut % (Auto) Lymph % (Auto) [place] % (Auto) Eos % (Auto) Baso % (Auto) Neut # (Auto) Lymph # (Auto) [place] # (Auto) Eos # (Auto) Baso # (Auto) Puncture Site pCO2 pO2 HCO3 ABG pH ABG Total CO2 ABG O2 Saturation ABG Base Excess ABG Hemoglobin ABG Carboxyhemoglobin POC ABG HHb (Measured) ABG Methemoglobin Scout Test A-a O2 Difference Respiratory Index Hgb O2 Saturation Vent Mode Mechanical Rate FiO2 Tidal Volume PEEP Sodium Potassium Chloride Carbon Dioxide Anion Gap BUN Creatinine Est GFR ( Amer) Est GFR (Non-Af Amer) POC Glucose (mg/dL) Random Glucose Calcium Phosphorus Magnesium Total Bilirubin AST ALT Alkaline Phosphatase Total Protein Albumin Globulin Albumin/Globulin Ratio Random Vancomycin 25.3 C. difficile Ag & Toxin Negative Fingerstick Blood Sugar Results: 251 Review of Systems - Review of Systems Systems not reviewed;Unavailable: Intubated Critical Care Progress Note - Nutrition Nutrition: Nutrition Category Date Time Status NPO Diet [DIET] Diets 05/09/18 Breakfast Active Assessment/Plan - Assessment and Plan (Free Text) Assessment: This is an 87 year old female with past medical history HTN, CHF, CAD, COPD, and DM2 who presented with altered mental status and was found to be septic and hyperglycemic. Admitted to ICU for sepsis/septic shock requiring pressors and s/p intubation. Currently off pressors and sedation, awake and alert, following simple commands, pending CPAP/PS trial to determine if can be extubated. Plan: Neuro: - intubated but off sedation, waking up and following simple commands - Anoxic brain injury, pending CT head and EEG when stable - maintain normothermia Cardio: - maintaining MAP > 65 - Risk of CAD/Type 2 DC - cardizem 30 mg PO QID for tachycardia - not a candidate for anticoag due to GI bleed Pulm: - Hypoxic respiratory failure s/p intubation - cpap trial today and possible extubation GI: - acute blood loss anemia 2/2 GI bleed, now stable - remains on protonix drip - Dr Black consulted, appreciate recs; GI bleed stabilized, no active bleeding, no indication for surgery at this time Endo: - metabolic acidosis resolved Renal: - Acute Renal Failure resolving - monitor and replete electrolytes as needed ID: - Septic shock on arrival - Currently on Cipro, vanco for abx as per ID Dispo: ICU, pending repeat trial tomorrow for possible extubation Ppx: Protonix drip covers for GI, SCDs for DVT (avoid AC given GI bleed) Patient seen, reviewed, and discussed with attending, Dr. Shukri Hwang PGY1 <Christopher Watt - Last Filed: 05/15/18 16:39> CCU Subjective - Physician Review Critical Care Time Spent (in minutes): 40 CCU Objective - Vital Signs / Intake & Output Vital Signs (Last 4 hours): Vital Signs Pulse Resp BP Pulse Ox 05/15/18 15:00 91 H 37 H 147/69 100 05/15/18 14:00 84 26 H 104/43 L 99 05/15/18 13:00 87 36 H 110/50 L 100 Intake and Output (Last 8hrs): Intake & Output 05/15/18 05/15/18 05/15/18 06:59 14:59 22:59 Intake Total 340 260 40 Output Total 250 501 Balance 90 -241 40 Weight 103 lb Intake: Intake, IV Amount 100 Right Proximal Port 100 Internal Jugular Tube Feeding 240 260 40 Output: Urine 250 500 Urine, Voided 250 500 Urine/Stool Mix 1 Other: # Voids Urine, Voided 0 1 # Bowel Movements 1 2 - Medications Active Medications: Active Medications Generic Name Dose Route Start Last Admin Trade Name Freq PRN Reason Stop Dose Admin Albuterol/Ipratropium 3 ml 05/07/18 21:18 05/11/18 15:30 Duoneb 3 Mg/0.5 Mg (3 Ml) Ud INH 3 ml RQ6 PRN Administration Cough Albuterol/Ipratropium 3 ml 05/11/18 20:00 05/15/18 14:11 Duoneb 3 Mg/0.5 Mg (3 Ml) Ud INH 3 ml RQ6 JUDY Administration Diltiazem HCl 30 mg 05/12/18 10:00 05/15/18 15:00 Cardizem PO 30 mg QID JUDY Administration Ciprofloxacin 100 mls @ 67 mls/hr 05/09/18 17:00 05/15/18 16:01 Cipro 200mg/100ml D5w IVPB 67 mls/hr Q12H JUDY Administration Protocol Vancomycin/Sodium Chloride 1 gm in 200 mls @ 133.333 mls/hr 05/11/18 19:30 05/14/18 18:37 Vancomycin 1 Gm/Ns 200 Ml IVPB 05/16/18 19:31 133.333 mls/hr Q24H JUDY Administration Protocol Insulin Aspart 0 unit 05/12/18 00:00 05/15/18 11:51 Novolog SC 6 units Q6 JUDY Administration Protocol Metoprolol Tartrate 50 mg 05/12/18 10:00 05/15/18 09:32 Lopressor PO 50 mg BID JUDY Administration Neomycin/Polymyxin/Bacitracin 0 gm 05/10/18 10:00 05/15/18 09:39 Neosporin Triple Antibiotic Oint TOP 1 applic BID JUDY Administration Nystatin 1 applic 05/09/18 18:00 05/15/18 09:39 Nystop Topical Powder TOP 1 applic BID UJDY Administration Pantoprazole Sodium 40 mg 05/13/18 07:45 05/15/18 07:00 Protonix Inj IVP 40 mg Q12H JUDY Administration Rosuvastatin Calcium 10 mg 05/07/18 22:00 05/14/18 21:58 Crestor PO 10 mg HS JUDY Administration - Patient Studies Lab Studies: Lab Studies 05/15/18 05/15/18 05/15/18 Range/Units Unknown 05:54 05:54 WBC (4.8-10.8) K/uL RBC (3.80-5.20) Mil/uL Hgb (11.0-16.0) g/dL Hct (34.0-47.0) % MCV (81.0-99.0) fL MCH (27.0-31.0) pg MCHC (33.0-37.0) g/dL RDW (11.5-14.5) % Plt Count (130-400) K/uL MPV (7.2-11.7) fL Neut % (Auto) (50.0-75.0) % Lymph % (Auto) (20.0-40.0) % [place] % (Auto) (0.0-10.0) % Eos % (Auto) (0.0-4.0) % Baso % (Auto) (0.0-2.0) % Neut # (Auto) (1.8-7.0) K/uL Lymph # (Auto) (1.0-4.3) K/uL [place] # (Auto) (0.0-0.8) K/uL Eos # (Auto) (0.0-0.7) K/uL Baso # (Auto) (0.0-0.2) K/uL Puncture Site pCO2 (35-45) mm/Hg pO2 (80-100) mm/Hg HCO3 (21-28) mmol/L ABG pH (7.35-7.45) ABG Total CO2 (22-28) mmol/L ABG O2 Saturation (95-98) % ABG Base Excess (-2.0-3.0) mmol/L ABG Hemoglobin (11.7-17.4) g/dL ABG Carboxyhemoglobin (0.5-1.5) % POC ABG HHb (Measured) (0.0-5.0) % ABG Methemoglobin (0.0-3.0) % Scout Test A-a O2 Difference mm/Hg Respiratory Index Hgb O2 Saturation (95.0-98.0) % Vent Mode Mechanical Rate FiO2 % Tidal Volume PEEP Sodium 142 (132-148) mmol/L Potassium 3.4 L (3.6-5.2) mmol/L Chloride 109 H (98-107) mmol/L Carbon Dioxide 24 (22-30) mmol/L Anion Gap 12 (10-20) BUN 15 (7-17) mg/dL Creatinine 0.7 (0.7-1.2) mg/dL Est GFR ( Amer) > 60 Est GFR (Non-Af Amer) > 60 POC Glucose (mg/dL) (65-110) mg/dL Random Glucose 190 H (65-105) mg/dL Calcium 8.8 (8.6-10.4) mg/dl Phosphorus 2.9 (2.5-4.5) mg/dL Magnesium 1.7 (1.6-2.3) mg/dL Total Bilirubin 0.4 (0.2-1.3) mg/dL AST 23 (14-36) U/L ALT 125 H D (9-52) U/L Alkaline Phosphatase 61 (38-126) U/L Total Protein 5.2 L (6.3-8.3) g/dL Albumin 2.7 L (3.5-5.0) g/dL Globulin 2.5 (2.2-3.9) gm/dL Albumin/Globulin Ratio 1.1 (1.0-2.1) Random Vancomycin 25.3 ug/mL C. difficile Ag & Toxin Negative (NEGATIVE) 05/15/18 05/15/18 05/15/18 Range/Units 05:54 05:04 04:30 WBC 11.4 H (4.8-10.8) K/uL RBC 3.32 L (3.80-5.20) Mil/uL Hgb 9.9 L (11.0-16.0) g/dL Hct 29.6 L (34.0-47.0) % MCV 89.2 (81.0-99.0) fL MCH 29.8 (27.0-31.0) pg MCHC 33.4 (33.0-37.0) g/dL RDW 17.7 H (11.5-14.5) % Plt Count 184 (130-400) K/uL MPV 8.7 (7.2-11.7) fL Neut % (Auto) 76.5 H (50.0-75.0) % Lymph % (Auto) 10.8 L (20.0-40.0) % [place] % (Auto) 9.2 (0.0-10.0) % Eos % (Auto) 3.2 (0.0-4.0) % Baso % (Auto) 0.3 (0.0-2.0) % Neut # (Auto) 8.7 H (1.8-7.0) K/uL Lymph # (Auto) 1.2 (1.0-4.3) K/uL [place] # (Auto) 1.1 H (0.0-0.8) K/uL Eos # (Auto) 0.4 (0.0-0.7) K/uL Baso # (Auto) 0.0 (0.0-0.2) K/uL Puncture Site Rr pCO2 30 L (35-45) mm/Hg pO2 144 H (80-100) mm/Hg HCO3 25.8 (21-28) mmol/L ABG pH 7.50 H (7.35-7.45) ABG Total CO2 24.3 (22-28) mmol/L ABG O2 Saturation 99.2 H (95-98) % ABG Base Excess 1.1 (-2.0-3.0) mmol/L ABG Hemoglobin 13.7 (11.7-17.4) g/dL ABG Carboxyhemoglobin 1.6 H (0.5-1.5) % POC ABG HHb (Measured) 0.8 (0.0-5.0) % ABG Methemoglobin 0.9 (0.0-3.0) % Scout Test Pos A-a O2 Difference 32.0 mm/Hg Respiratory Index 0.2 Hgb O2 Saturation 96.7 (95.0-98.0) % Vent Mode Prvc Mechanical Rate 16 FiO2 30.0 % Tidal Volume 400 PEEP 5 Sodium (132-148) mmol/L Potassium (3.6-5.2) mmol/L Chloride (98-107) mmol/L Carbon Dioxide (22-30) mmol/L Anion Gap (10-20) BUN (7-17) mg/dL Creatinine (0.7-1.2) mg/dL Est GFR ( Amer) Est GFR (Non-Af Amer) POC Glucose (mg/dL) 195 H (65-110) mg/dL Random Glucose (65-105) mg/dL Calcium (8.6-10.4) mg/dl Phosphorus (2.5-4.5) mg/dL Magnesium (1.6-2.3) mg/dL Total Bilirubin (0.2-1.3) mg/dL AST (14-36) U/L ALT (9-52) U/L Alkaline Phosphatase (38-126) U/L Total Protein (6.3-8.3) g/dL Albumin (3.5-5.0) g/dL Globulin (2.2-3.9) gm/dL Albumin/Globulin Ratio (1.0-2.1) Random Vancomycin ug/mL C. difficile Ag & Toxin (NEGATIVE) 05/14/18 05/14/18 Range/Units 23:19 17:55 WBC (4.8-10.8) K/uL RBC (3.80-5.20) Mil/uL Hgb (11.0-16.0) g/dL Hct (34.0-47.0) % MCV (81.0-99.0) fL MCH (27.0-31.0) pg MCHC (33.0-37.0) g/dL RDW (11.5-14.5) % Plt Count (130-400) K/uL MPV (7.2-11.7) fL Neut % (Auto) (50.0-75.0) % Lymph % (Auto) (20.0-40.0) % [place] % (Auto) (0.0-10.0) % Eos % (Auto) (0.0-4.0) % Baso % (Auto) (0.0-2.0) % Neut # (Auto) (1.8-7.0) K/uL Lymph # (Auto) (1.0-4.3) K/uL [place] # (Auto) (0.0-0.8) K/uL Eos # (Auto) (0.0-0.7) K/uL Baso # (Auto) (0.0-0.2) K/uL Puncture Site pCO2 (35-45) mm/Hg pO2 (80-100) mm/Hg HCO3 (21-28) mmol/L ABG pH (7.35-7.45) ABG Total CO2 (22-28) mmol/L ABG O2 Saturation (95-98) % ABG Base Excess (-2.0-3.0) mmol/L ABG Hemoglobin (11.7-17.4) g/dL ABG Carboxyhemoglobin (0.5-1.5) % POC ABG HHb (Measured) (0.0-5.0) % ABG Methemoglobin (0.0-3.0) % Scout Test A-a O2 Difference mm/Hg Respiratory Index Hgb O2 Saturation (95.0-98.0) % Vent Mode Mechanical Rate FiO2 % Tidal Volume PEEP Sodium (132-148) mmol/L Potassium (3.6-5.2) mmol/L Chloride (98-107) mmol/L Carbon Dioxide (22-30) mmol/L Anion Gap (10-20) BUN (7-17) mg/dL Creatinine (0.7-1.2) mg/dL Est GFR ( Amer) Est GFR (Non-Af Amer) POC Glucose (mg/dL) 192 H 258 H (65-110) mg/dL Random Glucose (65-105) mg/dL Calcium (8.6-10.4) mg/dl Phosphorus (2.5-4.5) mg/dL Magnesium (1.6-2.3) mg/dL Total Bilirubin (0.2-1.3) mg/dL AST (14-36) U/L ALT (9-52) U/L Alkaline Phosphatase (38-126) U/L Total Protein (6.3-8.3) g/dL Albumin (3.5-5.0) g/dL Globulin (2.2-3.9) gm/dL Albumin/Globulin Ratio (1.0-2.1) Random Vancomycin ug/mL C. difficile Ag & Toxin (NEGATIVE) Laboratory Results - last 24 hr 05/14/18 05/14/18 05/15/18 17:55 23:19 04:30 WBC RBC Hgb Hct MCV MCH MCHC RDW Plt Count MPV Neut % (Auto) Lymph % (Auto) [place] % (Auto) Eos % (Auto) Baso % (Auto) Neut # (Auto) Lymph # (Auto) [place] # (Auto) Eos # (Auto) Baso # (Auto) Puncture Site Rr pCO2 30 L pO2 144 H HCO3 25.8 ABG pH 7.50 H ABG Total CO2 24.3 ABG O2 Saturation 99.2 H ABG Base Excess 1.1 ABG Hemoglobin 13.7 ABG Carboxyhemoglobin 1.6 H POC ABG HHb (Measured) 0.8 ABG Methemoglobin 0.9 Scout Test Pos A-a O2 Difference 32.0 Respiratory Index 0.2 Hgb O2 Saturation 96.7 Vent Mode Prvc Mechanical Rate 16 FiO2 30.0 Tidal Volume 400 PEEP 5 Sodium Potassium Chloride Carbon Dioxide Anion Gap BUN Creatinine Est GFR ( Amer) Est GFR (Non-Af Amer) POC Glucose (mg/dL) 258 H 192 H Random Glucose Calcium Phosphorus Magnesium Total Bilirubin AST ALT Alkaline Phosphatase Total Protein Albumin Globulin Albumin/Globulin Ratio Random Vancomycin C. difficile Ag & Toxin 05/15/18 05/15/18 05/15/18 05:04 05:54 05:54 WBC 11.4 H RBC 3.32 L Hgb 9.9 L Hct 29.6 L MCV 89.2 MCH 29.8 MCHC 33.4 RDW 17.7 H Plt Count 184 MPV 8.7 Neut % (Auto) 76.5 H Lymph % (Auto) 10.8 L [place] % (Auto) 9.2 Eos % (Auto) 3.2 Baso % (Auto) 0.3 Neut # (Auto) 8.7 H Lymph # (Auto) 1.2 [place] # (Auto) 1.1 H Eos # (Auto) 0.4 Baso # (Auto) 0.0 Puncture Site pCO2 pO2 HCO3 ABG pH ABG Total CO2 ABG O2 Saturation ABG Base Excess ABG Hemoglobin ABG Carboxyhemoglobin POC ABG HHb (Measured) ABG Methemoglobin Scout Test A-a O2 Difference Respiratory Index Hgb O2 Saturation Vent Mode Mechanical Rate FiO2 Tidal Volume PEEP Sodium 142 Potassium 3.4 L Chloride 109 H Carbon Dioxide 24 Anion Gap 12 BUN 15 Creatinine 0.7 Est GFR ( Amer) > 60 Est GFR (Non-Af Amer) > 60 POC Glucose (mg/dL) 195 H Random Glucose 190 H Calcium 8.8 Phosphorus 2.9 Magnesium 1.7 Total Bilirubin 0.4 AST 23 ALT 125 H D Alkaline Phosphatase 61 Total Protein 5.2 L Albumin 2.7 L Globulin 2.5 Albumin/Globulin Ratio 1.1 Random Vancomycin C. difficile Ag & Toxin 05/15/18 05/15/18 05:54 Unknown WBC RBC Hgb Hct MCV MCH MCHC RDW Plt Count MPV Neut % (Auto) Lymph % (Auto) [place] % (Auto) Eos % (Auto) Baso % (Auto) Neut # (Auto) Lymph # (Auto) [place] # (Auto) Eos # (Auto) Baso # (Auto) Puncture Site pCO2 pO2 HCO3 ABG pH ABG Total CO2 ABG O2 Saturation ABG Base Excess ABG Hemoglobin ABG Carboxyhemoglobin POC ABG HHb (Measured) ABG Methemoglobin Scout Test A-a O2 Difference Respiratory Index Hgb O2 Saturation Vent Mode Mechanical Rate FiO2 Tidal Volume PEEP Sodium Potassium Chloride Carbon Dioxide Anion Gap BUN Creatinine Est GFR ( Amer) Est GFR (Non-Af Amer) POC Glucose (mg/dL) Random Glucose Calcium Phosphorus Magnesium Total Bilirubin AST ALT Alkaline Phosphatase Total Protein Albumin Globulin Albumin/Globulin Ratio Random Vancomycin 25.3 C. difficile Ag & Toxin Negative Critical Care Progress Note - Nutrition Nutrition: Nutrition Category Date Time Status NPO Diet [DIET] Diets 05/09/18 Breakfast Active Attending/Attestation - Attestation I have personally seen and examined this patient.: Yes I have fully participated in the care of the patient.: Yes I have reviewed all pertinent clinical information: Yes Notes (Text): 05/15/18 16:38 Patient seen and examined in the intensive care unit. Tolerated CPAP for a few hours Continue antibiotics Continue nebulizer treatment No active bleeding
--- NOTE | 2018-05-15 19:56 | CP.PCM.PN ---
Subjective - Date & Time of Evaluation Date of Evaluation: 05/15/18 Time of Evaluation: 19:55 - Subjective Subjective: still on vent cpap trial but low TV having no secretions no fever will continue to wean Objective - Vital Signs/Intake and Output Vital Signs (last 24 hours): Temp Pulse Resp BP Pulse Ox 98.4 F 82 26 H 130/53 L 100 05/15/18 16:00 05/15/18 19:00 05/15/18 19:00 05/15/18 19:00 05/15/18 19:00 Intake and Output: 05/15/18 05/16/18 18:59 06:59 Intake Total 563.4 45 Output Total 451 Balance 112.4 45 - Medications Medications: Current Medications Albuterol/Ipratropium (Duoneb 3 Mg/0.5 Mg (3 Ml) Ud) 3 ml INH RQ6 PRN PRN Reason: Cough Last Admin: 05/11/18 15:30 Dose: 3 ml Albuterol/Ipratropium (Duoneb 3 Mg/0.5 Mg (3 Ml) Ud) 3 ml INH RQ6 [facility] Last Admin: 05/15/18 19:13 Dose: 3 ml Diltiazem HCl (Cardizem) 30 mg PO QID [facility] Last Admin: 05/15/18 17:11 Dose: 30 mg Ciprofloxacin (Cipro 200mg/100ml D5w) 100 mls @ 67 mls/hr IVPB Q12H [facility]; Protocol Last Admin: 05/15/18 16:01 Dose: 67 mls/hr Vancomycin/Sodium Chloride (Vancomycin 1 Gm/Ns 200 Ml) 1 gm in 200 mls @ 133.333 mls/hr IVPB Q24H [facility]; Protocol Stop: 05/16/18 19:31 Last Admin: 05/14/18 18:37 Dose: 133.333 mls/hr Insulin Aspart (Novolog) 0 unit SC Q6 [facility]; Protocol Last Admin: 05/15/18 18:08 Dose: 4 units Metoprolol Tartrate (Lopressor) 50 mg PO BID [facility] Last Admin: 05/15/18 17:11 Dose: 50 mg Neomycin/Polymyxin/Bacitracin (Neosporin Triple Antibiotic Oint) 0 gm TOP BID [facility] Last Admin: 05/15/18 17:10 Dose: 1 applic Nystatin (Nystop Topical Powder) 1 applic TOP BID [facility] Last Admin: 05/15/18 17:09 Dose: 1 applic Pantoprazole Sodium (Protonix Inj) 40 mg IVP Q12H [facility] Last Admin: 05/15/18 18:46 Dose: 40 mg Rosuvastatin Calcium (Crestor) 10 mg PO HS [facility] Last Admin: 05/14/18 21:58 Dose: 10 mg - Labs Labs: 05/15/18 05:54 05/15/18 05:54 PT 18.4 SECONDS (9.7-12.2) H 05/09/18 09:10 INR 1.7 05/09/18 09:10 APTT 25 SECONDS (21-34) 05/10/18 23:10
--- NOTE | 2018-05-15 21:54 | CP.PCM.PN ---
Subjective - Date & Time of Evaluation Date of Evaluation: 05/15/18 Time of Evaluation: 15:00 - Subjective Subjective: dictated Objective - Vital Signs/Intake and Output Vital Signs (last 24 hours): Temp Pulse Resp BP Pulse Ox 98.6 F 92 H 16 121/51 L 100 05/15/18 20:00 05/15/18 21:00 05/15/18 21:00 05/15/18 21:00 05/15/18 21:00 Intake and Output: 05/15/18 05/16/18 18:59 06:59 Intake Total 563.4 90 Output Total 451 Balance 112.4 90 - Medications Medications: Current Medications Albuterol/Ipratropium (Duoneb 3 Mg/0.5 Mg (3 Ml) Ud) 3 ml INH RQ6 PRN PRN Reason: Cough Last Admin: 05/11/18 15:30 Dose: 3 ml Albuterol/Ipratropium (Duoneb 3 Mg/0.5 Mg (3 Ml) Ud) 3 ml INH RQ6 [facility] Last Admin: 05/15/18 19:13 Dose: 3 ml Diltiazem HCl (Cardizem) 30 mg PO QID [facility] Last Admin: 05/15/18 17:11 Dose: 30 mg Ciprofloxacin (Cipro 200mg/100ml D5w) 100 mls @ 67 mls/hr IVPB Q12H [facility]; Protocol Last Admin: 05/15/18 16:01 Dose: 67 mls/hr Vancomycin/Sodium Chloride (Vancomycin 1 Gm/Ns 200 Ml) 1 gm in 200 mls @ 133.333 mls/hr IVPB Q24H [facility]; Protocol Stop: 05/16/18 19:31 Last Admin: 05/14/18 18:37 Dose: 133.333 mls/hr Insulin Aspart (Novolog) 0 unit SC Q6 [facility]; Protocol Last Admin: 05/15/18 18:08 Dose: 4 units Metoprolol Tartrate (Lopressor) 50 mg PO BID [facility] Last Admin: 05/15/18 17:11 Dose: 50 mg Neomycin/Polymyxin/Bacitracin (Neosporin Triple Antibiotic Oint) 0 gm TOP BID [facility] Last Admin: 05/15/18 17:10 Dose: 1 applic Nystatin (Nystop Topical Powder) 1 applic TOP BID [facility] Last Admin: 05/15/18 17:09 Dose: 1 applic Pantoprazole Sodium (Protonix Inj) 40 mg IVP Q12H [facility] Last Admin: 05/15/18 18:46 Dose: 40 mg Rosuvastatin Calcium (Crestor) 10 mg PO HS [facility] Last Admin: 05/14/18 21:58 Dose: 10 mg - Labs Labs: 05/15/18 05:54 05/15/18 05:54 PT 18.4 SECONDS (9.7-12.2) H 05/09/18 09:10 INR 1.7 05/09/18 09:10 APTT 25 SECONDS (21-34) 05/10/18 23:10 Assessment and Plan (1) Respiratory failure Status: Acute (2) Infection of gastrostomy site Status: Acute (3) Ischemic hepatitis Status: Acute (4) Anemia Status: Acute
--- NOTE | 2018-05-15 22:41 | CP.PCM.PN ---
Subjective - Date & Time of Evaluation Date of Evaluation: 05/15/18 Time of Evaluation: 14:10 - Subjective Subjective: Patient seen and evaluated No new events noted Objective - Vital Signs/Intake and Output Vital Signs (last 24 hours): Temp Pulse Resp BP Pulse Ox 98.6 F 92 H 16 121/51 L 100 05/15/18 20:00 05/15/18 21:00 05/15/18 21:00 05/15/18 21:00 05/15/18 21:00 Intake and Output: 05/15/18 05/16/18 18:59 06:59 Intake Total 563.4 90 Output Total 451 Balance 112.4 90 - Medications Medications: Current Medications Albuterol/Ipratropium (Duoneb 3 Mg/0.5 Mg (3 Ml) Ud) 3 ml INH RQ6 PRN PRN Reason: Cough Last Admin: 05/11/18 15:30 Dose: 3 ml Albuterol/Ipratropium (Duoneb 3 Mg/0.5 Mg (3 Ml) Ud) 3 ml INH RQ6 [facility] Last Admin: 05/15/18 19:13 Dose: 3 ml Diltiazem HCl (Cardizem) 30 mg PO QID [facility] Last Admin: 05/15/18 17:11 Dose: 30 mg Ciprofloxacin (Cipro 200mg/100ml D5w) 100 mls @ 67 mls/hr IVPB Q12H [facility]; Protocol Last Admin: 05/15/18 16:01 Dose: 67 mls/hr Vancomycin/Sodium Chloride (Vancomycin 1 Gm/Ns 200 Ml) 1 gm in 200 mls @ 133.333 mls/hr IVPB Q24H [facility]; Protocol Stop: 05/16/18 19:31 Last Admin: 05/14/18 18:37 Dose: 133.333 mls/hr Insulin Aspart (Novolog) 0 unit SC Q6 [facility]; Protocol Last Admin: 05/15/18 18:08 Dose: 4 units Metoprolol Tartrate (Lopressor) 50 mg PO BID [facility] Last Admin: 05/15/18 17:11 Dose: 50 mg Neomycin/Polymyxin/Bacitracin (Neosporin Triple Antibiotic Oint) 0 gm TOP BID [facility] Last Admin: 05/15/18 17:10 Dose: 1 applic Nystatin (Nystop Topical Powder) 1 applic TOP BID [facility] Last Admin: 05/15/18 17:09 Dose: 1 applic Pantoprazole Sodium (Protonix Inj) 40 mg IVP Q12H [facility] Last Admin: 05/15/18 18:46 Dose: 40 mg Rosuvastatin Calcium (Crestor) 10 mg PO HS [facility] Last Admin: 05/14/18 21:58 Dose: 10 mg - Labs Labs: 05/15/18 05:54 05/15/18 05:54 PT 18.4 SECONDS (9.7-12.2) H 05/09/18 09:10 INR 1.7 05/09/18 09:10 APTT 25 SECONDS (21-34) 05/10/18 23:10
[2018-05-16] MEDS: (Novolog) Insulin Aspart, Recombinant 100 u/ml 10 ml vial SC SCH ×4 (00:34→19:20)
--- NOTE | 2018-05-16 01:02 | PN ---
DATE: 05/15/2018 SUBJECTIVE: The patient remains still intubated. She was seen this afternoon. Daughter was at the bedside. They were also doing wound care. Sacral area had some redness due to pressure and edema. The patient's eyes were open, and she remains intubated. She still has a triple lumen and is on CPAP. PHYSICAL EXAMINATION: VITAL SIGNS: T-max is 98.2, pulse 92, blood pressure 121/51, respirations are 16. HEENT: Head is atraumatic. NECK: Supple. LUNGS: Clear. HEART: S1 and S2 are regular. ABDOMEN: Soft, nontender. No guarding, no rigidity present. PEG site is much better now with a clean dressing. EXTREMITIES: Have mild edema. LABORATORY DATA: Labs are noted. Labs show white count is 11.4 today, hemoglobin 9.9, hematocrit 29.6, platelet count is 184. BUN is 15, creatinine 0.7. ASSESSMENT AND PLAN: The patient is on vancomycin and Cipro. She has low lung volumes and is being monitored on the ventilator at this time and will follow. We will also order sputum if they can do, so that it may help her if there is anything that grows in it. We will follow. Val Jones MD
[2018-05-16] MEDS: Albuterol-Ipratrop 3 mg / 0.5 (3 ml) UD INH SCH ×4 (01:25→19:12)
[2018-05-16 04:44] LABS: ABG ALLEN TEST POS; ARTERIAL BLOOD GAS HCO3 26.7 mmol/L (21-28); ARTERIAL BLOOD GAS HEMOGLOBIN 12.2 g/dL (11.7-17.4); ARTERIAL BLOOD GAS PCO2 30 mm/Hg (35-45); ARTERIAL BLOOD GAS PH 7.52 (7.35-7.45); ARTERIAL BLOOD GAS PO2 144 mm/Hg (80-100); ARTERIAL BLOOD GAS TCO2 25.4 mmol/L (22-28)
[2018-05-16] MEDS: Ciprofloxacin 200mg/100ml D5W 100 ML IVPB SCH ×2 (05:32→16:04)
[2018-05-16 06:26] LABS: BASO # 0.1 K/uL (0.0-0.2); BASO % 0.6 % (0.0-2.0); EOS # 0.3 K/uL (0.0-0.7); EOS % 3.1 % (0.0-4.0); HEMOGLOBIN 10.3 g/dL (11.0-16.0); LYMPH # 1.2 K/uL (1.0-4.3); LYMPH % 11.2 % (20.0-40.0); MEAN CELL VOLUME 89.2 fL (81.0-99.0); MEAN CORPUSCULAR HEMOGLOBIN 30.4 pg (27.0-31.0); MEAN CORPUSCULAR HGB CONC 34.1 g/dL (33.0-37.0); MEAN PLATELET VOLUME 8.5 fL (7.2-11.7); MONO % 9.5 % (0.0-10.0); NEUT % 75.6 % (50.0-75.0); NRBC % 0.1 % (0.0-2.0); RBC 3.39 Mil/uL (3.80-5.20); RED CELL DISTRIBUTION WIDTH 17.7 % (11.5-14.5); WHITE BLOOD COUNT 10.6 K/uL (4.8-10.8)
[2018-05-16 06:49] LABS: ALB/GLOB RATIO 1.1 (1.0-2.1); ALT/SGPT 89 U/L (9-52); AST/SGOT 18 U/L (14-36); BLOOD UREA NITROGEN 19 mg/dL (7-17); CALCIUM 9.1 mg/dl (8.6-10.4); GFR NON-AFRICAN AMERICAN > 60
--- NOTE | 2018-05-16 08:16 | RAD ---
Date of service: 05/16/2018 HISTORY: intubated COMPARISON: Portable chest 05/15/2018. FINDINGS: LUNGS: Endotracheal tube and right central venous line unchanged in position as well as unipolar permanent cardiac pacemaker. Exam is been captured with low pulmonary volume. No definite infiltrate in the interval bilaterally. PLEURA: No significant pleural effusion identified, no pneumothorax apparent. CARDIOVASCULAR: Aortic arch calcified atherosclerosis identified. Normal heart size. No pulmonary vascular congestion. Post CABG changes reiterated. OSSEOUS STRUCTURES: No significant abnormalities. VISUALIZED UPPER ABDOMEN: Normal. OTHER FINDINGS: None. IMPRESSION: No interval acute cardiopulmonary disease.
[2018-05-16] MEDS: Bacitracin/Neomycin/Polymyxin Oint(30GM) TOP SCH ×2 (09:08→17:42)
--- NOTE | 2018-05-16 10:15 | CP.PCM.PN ---
Subjective - Date & Time of Evaluation Date of Evaluation: 05/16/18 Time of Evaluation: 10:11 - Subjective Subjective: f/u diarrhea. Still loose anastasiya. On PEG feedings. No Rb, melena, fever, hematuria, hemoptysis, SZ, tremor, chills Objective - Vital Signs/Intake and Output Vital Signs (last 24 hours): Temp Pulse Resp BP Pulse Ox 98.6 F 109 H 25 H 113/71 100 05/16/18 08:00 05/16/18 09:00 05/16/18 09:00 05/16/18 09:00 05/16/18 09:00 Intake and Output: 05/16/18 05/16/18 06:59 18:59 Intake Total 795.0 180 Output Total 300 100 Balance 495.0 80 - Medications Medications: Current Medications Albuterol/Ipratropium (Duoneb 3 Mg/0.5 Mg (3 Ml) Ud) 3 ml INH RQ6 PRN PRN Reason: Cough Last Admin: 05/11/18 15:30 Dose: 3 ml Albuterol/Ipratropium (Duoneb 3 Mg/0.5 Mg (3 Ml) Ud) 3 ml INH RQ6 [facility] Last Admin: 05/16/18 07:29 Dose: 3 ml Diltiazem HCl (Cardizem) 30 mg PO QID [facility] Last Admin: 05/16/18 09:06 Dose: 30 mg Ciprofloxacin (Cipro 200mg/100ml D5w) 100 mls @ 67 mls/hr IVPB Q12H [facility]; Protocol Last Admin: 05/16/18 05:32 Dose: 67 mls/hr Vancomycin/Sodium Chloride (Vancomycin 1 Gm/Ns 200 Ml) 1 gm in 200 mls @ 133.333 mls/hr IVPB Q24H [facility]; Protocol Stop: 05/16/18 19:31 Last Admin: 05/14/18 18:37 Dose: 133.333 mls/hr Insulin Aspart (Novolog) 0 unit SC Q6 [facility]; Protocol Last Admin: 05/16/18 05:36 Dose: 4 units Metoprolol Tartrate (Lopressor) 50 mg PO BID [facility] Last Admin: 05/16/18 09:06 Dose: 50 mg Neomycin/Polymyxin/Bacitracin (Neosporin Triple Antibiotic Oint) 0 gm TOP BID [facility] Last Admin: 05/16/18 09:08 Dose: 1 applic Nystatin (Nystop Topical Powder) 1 applic TOP BID [facility] Last Admin: 05/16/18 09:08 Dose: 1 applic Pantoprazole Sodium (Protonix Inj) 40 mg IVP Q12H [facility] Last Admin: 05/16/18 06:46 Dose: 40 mg Rosuvastatin Calcium (Crestor) 10 mg PO HS [facility] Last Admin: 05/15/18 22:00 Dose: 10 mg - Labs Labs: 05/16/18 06:11 05/16/18 06:11 PT 18.4 SECONDS (9.7-12.2) H 05/09/18 09:10 INR 1.7 05/09/18 09:10 APTT 25 SECONDS (21-34) 05/10/18 23:10 - Constitutional Appears: Confused - Respiratory Exam Respiratory Exam: Clear to Ausculation Bilateral - Cardiovascular Exam Cardiovascular Exam: RRR - GI/Abdominal Exam GI & Abdominal Exam: Soft, Normal Bowel Sounds. absent: Tenderness, Mass - Neurological Exam Neurological Exam: Alert, Awake. absent: Oriented x3 Assessment and Plan (1) Altered mental status Status: Acute (2) Sepsis Assessment & Plan: wbc improved Status: Acute (3) Anxiety Status: Acute (4) CAD (coronary artery disease) Status: Acute (5) Diabetes 1.5, managed as type 2 Status: Acute (6) Esophageal stricture Assessment & Plan: achalsia Status: Acute (7) Achalasia Status: Chronic (8) Diabetes Status: Chronic (9) Anemia Status: Acute (10) GI bleed Assessment & Plan: Ulcer. s/p therapeutic EGD. No further bleeding. Cont PPI. Status: Acute (11) Elevated transaminase level Assessment & Plan: Improving Status: Acute (12) Diarrhea Assessment & Plan: c diff neg. Consider related to GT feeding. Check feeding brand at OK. Consider change feeding. on ABX Status: Acute
--- NOTE | 2018-05-16 16:14 | CP.CCUPN ---
<Dylon Hwang - Last Filed: 05/16/18 16:14> CCU Subjective - Physician Review Subjective (Free Text): Pt seen and examined at bedside. Pt unable to provide ROS, pt is able to nod and follows commands. cpap trial and possible extubation today. will continue with med management CCU Objective - Vital Signs / Intake & Output Vital Signs (Last 4 hours): Vital Signs Pulse Resp BP Pulse Ox 05/16/18 15:00 95 H 26 H 132/62 100 05/16/18 14:55 96 H 34 H 125/64 100 05/16/18 14:01 85 17 84/45 L 99 05/16/18 14:00 85 15 100 05/16/18 13:38 85 18 91/46 L 99 05/16/18 13:00 97 H 29 H 98 Intake and Output (Last 8hrs): Intake & Output 05/16/18 05/16/18 05/16/18 06:59 14:59 22:59 Intake Total 515.0 480 60 Output Total 300 101 Balance 215.0 379 60 Weight 104 lb 11.2 oz Intake: Intake, IV Amount 100.0 Right Proximal Port 100.0 Internal Jugular Tube Feeding 415 480 60 Output: Urine 300 100 Urine, Voided 300 100 Urine/Stool Mix 1 Other: # Voids Urine, Voided 0 0 # Bowel Movements 0 1 - Physical Exam Head: Positive for: Atraumatic, Normocephalic Pupils: Positive for: PERRL. Negative for: Pinpoint Extroacular Muscles: Positive for: EOMI Conjunctiva: Positive for: Normal. Negative for: Injected, Icteric Mouth: Positive for: Moist Mucous Membranes, Other (ett in place ). Negative for: Dry Nose (External): Positive for: Atraumatic. Negative for: Abrasion, Contusion, Laceration Nose (Internal): Positive for: No Active Bleeding. Negative for: Epistaxis Neck: Positive for: Normal Range of Motion, Trachea Midline. Negative for: JVD Respiratory/Chest: Positive for: Clear to Auscultation, Good Air Exchange. Negative for: Accessory Muscle Use, Wheezes, Rales, Rhonchi Cardiovascular: Positive for: Regular Rate and Rhythm, Normal S1, S2, Peripheal Pulses Present (+2 radials). Negative for: Irregular Rhythm, Tachycardic, Bradycardic Abdomen: Positive for: Normal Bowel Sounds. Negative for: Tenderness, Distention Upper Extremity: Positive for: Normal Inspection, NORMAL PULSES. Negative for: Cyanosis, Edema Lower Extremity: Positive for: Normal Inspection, NORMAL PULSES (+1 dorsalis pedis bilaterally). Negative for: Edema Neurological: Positive for: GCS=15 Skin: Positive for: Warm, Dry, Normal Color Psychiatric: Positive for: Alert, Other - Medications Active Medications: Active Medications Generic Name Dose Route Start Last Admin Trade Name Freq PRN Reason Stop Dose Admin Albuterol/Ipratropium 3 ml 05/07/18 21:18 05/11/18 15:30 Duoneb 3 Mg/0.5 Mg (3 Ml) Ud INH 3 ml RQ6 PRN Administration Cough Albuterol/Ipratropium 3 ml 05/11/18 20:00 05/16/18 13:55 Duoneb 3 Mg/0.5 Mg (3 Ml) Ud INH 3 ml RQ6 JUDY Administration Diltiazem HCl 30 mg 05/12/18 10:00 05/16/18 13:41 Cardizem PO Not Given QID JUDY Ciprofloxacin 100 mls @ 67 mls/hr 05/09/18 17:00 05/16/18 16:04 Cipro 200mg/100ml D5w IVPB 67 mls/hr Q12H JUDY Administration Protocol Vancomycin/Sodium Chloride 1 gm in 200 mls @ 133.333 mls/hr 05/11/18 19:30 05/14/18 18:37 Vancomycin 1 Gm/Ns 200 Ml IVPB 05/16/18 19:31 133.333 mls/hr Q24H UJDY Administration Protocol Insulin Aspart 0 unit 05/12/18 00:00 05/16/18 13:38 Novolog SC 6 units Q6 JUDY Administration Protocol Metoprolol Tartrate 50 mg 05/12/18 10:00 05/16/18 09:06 Lopressor PO 50 mg BID JUDY Administration Neomycin/Polymyxin/Bacitracin 0 gm 05/10/18 10:00 05/16/18 09:08 Neosporin Triple Antibiotic Oint TOP 1 applic BID JUDY Administration Nystatin 1 applic 05/09/18 18:00 05/16/18 09:08 Nystop Topical Powder TOP 1 applic BID JUDY Administration Pantoprazole Sodium 40 mg 05/13/18 07:45 05/16/18 06:46 Protonix Inj IVP 40 mg Q12H JUDY Administration Rosuvastatin Calcium 10 mg 05/07/18 22:00 05/15/18 22:00 Crestor PO 10 mg HS JUDY Administration - Patient Studies Lab Studies: Microbiology Studies 05/15/18 Unknown Gram Stain - Final Sputum Lab Studies 05/16/18 05/16/18 05/16/18 Range/Units 06:11 06:11 05:28 WBC 10.6 (4.8-10.8) K/uL RBC 3.39 L (3.80-5.20) Mil/uL Hgb 10.3 L (11.0-16.0) g/dL Hct 30.3 L (34.0-47.0) % MCV 89.2 (81.0-99.0) fL MCH 30.4 (27.0-31.0) pg MCHC 34.1 (33.0-37.0) g/dL RDW 17.7 H (11.5-14.5) % Plt Count 231 (130-400) K/uL MPV 8.5 (7.2-11.7) fL Neut % (Auto) 75.6 H (50.0-75.0) % Lymph % (Auto) 11.2 L (20.0-40.0) % [place] % (Auto) 9.5 (0.0-10.0) % Eos % (Auto) 3.1 (0.0-4.0) % Baso % (Auto) 0.6 (0.0-2.0) % Neut # (Auto) 8.0 H (1.8-7.0) K/uL Lymph # (Auto) 1.2 (1.0-4.3) K/uL [place] # (Auto) 1.0 H (0.0-0.8) K/uL Eos # (Auto) 0.3 (0.0-0.7) K/uL Baso # (Auto) 0.1 (0.0-0.2) K/uL Puncture Site pCO2 (35-45) mm/Hg pO2 (80-100) mm/Hg HCO3 (21-28) mmol/L ABG pH (7.35-7.45) ABG Total CO2 (22-28) mmol/L ABG O2 Saturation (95-98) % ABG Base Excess (-2.0-3.0) mmol/L ABG Hemoglobin (11.7-17.4) g/dL ABG Carboxyhemoglobin (0.5-1.5) % POC ABG HHb (Measured) (0.0-5.0) % ABG Methemoglobin (0.0-3.0) % Scout Test A-a O2 Difference mm/Hg Respiratory Index Hgb O2 Saturation (95.0-98.0) % Vent Mode Mechanical Rate FiO2 % Tidal Volume PEEP Sodium 142 (132-148) mmol/L Potassium 3.8 (3.6-5.2) mmol/L Chloride 107 (98-107) mmol/L Carbon Dioxide 26 (22-30) mmol/L Anion Gap 12 (10-20) BUN 19 H (7-17) mg/dL Creatinine 0.8 (0.7-1.2) mg/dL Est GFR ( Amer) > 60 Est GFR (Non-Af Amer) > 60 POC Glucose (mg/dL) 231 H (65-110) mg/dL Random Glucose 237 H (65-105) mg/dL Calcium 9.1 (8.6-10.4) mg/dl Phosphorus 2.8 (2.5-4.5) mg/dL Magnesium 1.8 (1.6-2.3) mg/dL Total Bilirubin 0.4 (0.2-1.3) mg/dL AST 18 (14-36) U/L ALT 89 H D (9-52) U/L Alkaline Phosphatase 63 (38-126) U/L Total Protein 5.7 L (6.3-8.3) g/dL Albumin 3.0 L (3.5-5.0) g/dL Globulin 2.7 (2.2-3.9) gm/dL Albumin/Globulin Ratio 1.1 (1.0-2.1) 05/16/18 05/15/18 05/15/18 Range/Units 04:30 23:50 18:03 WBC (4.8-10.8) K/uL RBC (3.80-5.20) Mil/uL Hgb (11.0-16.0) g/dL Hct (34.0-47.0) % MCV (81.0-99.0) fL MCH (27.0-31.0) pg MCHC (33.0-37.0) g/dL RDW (11.5-14.5) % Plt Count (130-400) K/uL MPV (7.2-11.7) fL Neut % (Auto) (50.0-75.0) % Lymph % (Auto) (20.0-40.0) % [place] % (Auto) (0.0-10.0) % Eos % (Auto) (0.0-4.0) % Baso % (Auto) (0.0-2.0) % Neut # (Auto) (1.8-7.0) K/uL Lymph # (Auto) (1.0-4.3) K/uL [place] # (Auto) (0.0-0.8) K/uL Eos # (Auto) (0.0-0.7) K/uL Baso # (Auto) (0.0-0.2) K/uL Puncture Site Rr pCO2 30 L (35-45) mm/Hg pO2 144 H (80-100) mm/Hg HCO3 26.7 (21-28) mmol/L ABG pH 7.52 H (7.35-7.45) ABG Total CO2 25.4 (22-28) mmol/L ABG O2 Saturation 99.0 H (95-98) % ABG Base Excess 2.3 (-2.0-3.0) mmol/L ABG Hemoglobin 12.2 (11.7-17.4) g/dL ABG Carboxyhemoglobin 1.7 H (0.5-1.5) % POC ABG HHb (Measured) 1.0 (0.0-5.0) % ABG Methemoglobin 1.5 (0.0-3.0) % Scout Test Pos A-a O2 Difference 32.0 mm/Hg Respiratory Index 0.2 Hgb O2 Saturation 95.8 (95.0-98.0) % Vent Mode Prvc Mechanical Rate 16 FiO2 30.0 % Tidal Volume 400 PEEP 5 Sodium (132-148) mmol/L Potassium (3.6-5.2) mmol/L Chloride (98-107) mmol/L Carbon Dioxide (22-30) mmol/L Anion Gap (10-20) BUN (7-17) mg/dL Creatinine (0.7-1.2) mg/dL Est GFR ( Amer) Est GFR (Non-Af Amer) POC Glucose (mg/dL) 259 H 228 H (65-110) mg/dL Random Glucose (65-105) mg/dL Calcium (8.6-10.4) mg/dl Phosphorus (2.5-4.5) mg/dL Magnesium (1.6-2.3) mg/dL Total Bilirubin (0.2-1.3) mg/dL AST (14-36) U/L ALT (9-52) U/L Alkaline Phosphatase (38-126) U/L Total Protein (6.3-8.3) g/dL Albumin (3.5-5.0) g/dL Globulin (2.2-3.9) gm/dL Albumin/Globulin Ratio (1.0-2.1) 05/15/18 Range/Units 11:24 WBC (4.8-10.8) K/uL RBC (3.80-5.20) Mil/uL Hgb (11.0-16.0) g/dL Hct (34.0-47.0) % MCV (81.0-99.0) fL MCH (27.0-31.0) pg MCHC (33.0-37.0) g/dL RDW (11.5-14.5) % Plt Count (130-400) K/uL MPV (7.2-11.7) fL Neut % (Auto) (50.0-75.0) % Lymph % (Auto) (20.0-40.0) % [place] % (Auto) (0.0-10.0) % Eos % (Auto) (0.0-4.0) % Baso % (Auto) (0.0-2.0) % Neut # (Auto) (1.8-7.0) K/uL Lymph # (Auto) (1.0-4.3) K/uL [place] # (Auto) (0.0-0.8) K/uL Eos # (Auto) (0.0-0.7) K/uL Baso # (Auto) (0.0-0.2) K/uL Puncture Site pCO2 (35-45) mm/Hg pO2 (80-100) mm/Hg HCO3 (21-28) mmol/L ABG pH (7.35-7.45) ABG Total CO2 (22-28) mmol/L ABG O2 Saturation (95-98) % ABG Base Excess (-2.0-3.0) mmol/L ABG Hemoglobin (11.7-17.4) g/dL ABG Carboxyhemoglobin (0.5-1.5) % POC ABG HHb (Measured) (0.0-5.0) % ABG Methemoglobin (0.0-3.0) % Scout Test A-a O2 Difference mm/Hg Respiratory Index Hgb O2 Saturation (95.0-98.0) % Vent Mode Mechanical Rate FiO2 % Tidal Volume PEEP Sodium (132-148) mmol/L Potassium (3.6-5.2) mmol/L Chloride (98-107) mmol/L Carbon Dioxide (22-30) mmol/L Anion Gap (10-20) BUN (7-17) mg/dL Creatinine (0.7-1.2) mg/dL Est GFR ( Amer) Est GFR (Non-Af Amer) POC Glucose (mg/dL) 251 H (65-110) mg/dL Random Glucose (65-105) mg/dL Calcium (8.6-10.4) mg/dl Phosphorus (2.5-4.5) mg/dL Magnesium (1.6-2.3) mg/dL Total Bilirubin (0.2-1.3) mg/dL AST (14-36) U/L ALT (9-52) U/L Alkaline Phosphatase (38-126) U/L Total Protein (6.3-8.3) g/dL Albumin (3.5-5.0) g/dL Globulin (2.2-3.9) gm/dL Albumin/Globulin Ratio (1.0-2.1) Laboratory Results - last 24 hr 05/15/18 05/15/18 05/15/18 11:24 18:03 23:50 WBC RBC Hgb Hct MCV MCH MCHC RDW Plt Count MPV Neut % (Auto) Lymph % (Auto) [place] % (Auto) Eos % (Auto) Baso % (Auto) Neut # (Auto) Lymph # (Auto) [place] # (Auto) Eos # (Auto) Baso # (Auto) Puncture Site pCO2 pO2 HCO3 ABG pH ABG Total CO2 ABG O2 Saturation ABG Base Excess ABG Hemoglobin ABG Carboxyhemoglobin POC ABG HHb (Measured) ABG Methemoglobin Scout Test A-a O2 Difference Respiratory Index Hgb O2 Saturation Vent Mode Mechanical Rate FiO2 Tidal Volume PEEP Sodium Potassium Chloride Carbon Dioxide Anion Gap BUN Creatinine Est GFR ( Amer) Est GFR (Non-Af Amer) POC Glucose (mg/dL) 251 H 228 H 259 H Random Glucose Calcium Phosphorus Magnesium Total Bilirubin AST ALT Alkaline Phosphatase Total Protein Albumin Globulin Albumin/Globulin Ratio 05/16/18 05/16/18 05/16/18 04:30 05:28 06:11 WBC 10.6 RBC 3.39 L Hgb 10.3 L Hct 30.3 L MCV 89.2 MCH 30.4 MCHC 34.1 RDW 17.7 H Plt Count 231 MPV 8.5 Neut % (Auto) 75.6 H Lymph % (Auto) 11.[address] [place] % (Auto) 9.5 Eos % (Auto) 3.1 Baso % (Auto) 0.6 Neut # (Auto) 8.0 H Lymph # (Auto) 1.2 [place] # (Auto) 1.0 H Eos # (Auto) 0.3 Baso # (Auto) 0.1 Puncture Site Rr pCO2 30 L pO2 144 H HCO3 26.7 ABG pH 7.52 H ABG Total CO2 25.4 ABG O2 Saturation 99.0 H ABG Base Excess 2.3 ABG Hemoglobin 12.2 ABG Carboxyhemoglobin 1.7 H POC ABG HHb (Measured) 1.0 ABG Methemoglobin 1.5 Scout Test Pos A-a O2 Difference 32.0 Respiratory Index 0.2 Hgb O2 Saturation 95.8 Vent Mode Prvc Mechanical Rate 16 FiO2 30.0 Tidal Volume 400 PEEP 5 Sodium Potassium Chloride Carbon Dioxide Anion Gap BUN Creatinine Est GFR ( Amer) Est GFR (Non-Af Amer) POC Glucose (mg/dL) 231 H Random Glucose Calcium Phosphorus Magnesium Total Bilirubin AST ALT Alkaline Phosphatase Total Protein Albumin Globulin Albumin/Globulin Ratio 05/16/18 06:11 WBC RBC Hgb Hct MCV MCH MCHC RDW Plt Count MPV Neut % (Auto) Lymph % (Auto) [place] % (Auto) Eos % (Auto) Baso % (Auto) Neut # (Auto) Lymph # (Auto) [place] # (Auto) Eos # (Auto) Baso # (Auto) Puncture Site pCO2 pO2 HCO3 ABG pH ABG Total CO2 ABG O2 Saturation ABG Base Excess ABG Hemoglobin ABG Carboxyhemoglobin POC ABG HHb (Measured) ABG Methemoglobin Scout Test A-a O2 Difference Respiratory Index Hgb O2 Saturation Vent Mode Mechanical Rate FiO2 Tidal Volume PEEP Sodium 142 Potassium 3.8 Chloride 107 Carbon Dioxide 26 Anion Gap 12 BUN 19 H Creatinine 0.8 Est GFR ( Amer) > 60 Est GFR (Non-Af Amer) > 60 POC Glucose (mg/dL) Random Glucose 237 H Calcium 9.1 Phosphorus 2.8 Magnesium 1.8 Total Bilirubin 0.4 AST 18 ALT 89 H D Alkaline Phosphatase 63 Total Protein 5.7 L Albumin 3.0 L Globulin 2.7 Albumin/Globulin Ratio 1.1 Fingerstick Blood Sugar Results: 231 Critical Care Progress Note - Nutrition Nutrition: Nutrition Category Date Time Status NPO Diet [DIET] Diets 05/09/18 Breakfast Active Assessment/Plan - Assessment and Plan (Free Text) Plan: This is an 87 year old female with past medical history HTN, CHF, CAD, COPD, and DM2 who presented with altered mental status and was found to be septic and hyperglycemic. Admitted to ICU for sepsis/septic shock requiring pressors and s/p intubation. Currently off pressors and sedation, awake and alert, following simple commands, pending CPAP/PS trial to determine if can be extubated. Plan: Neuro: - intubated but off sedation, waking up and following simple commands - Anoxic brain injury, pending CT head and EEG when stable - maintain normothermia Cardio: - maintaining MAP > 65 - Risk of CAD/Type 2 [place] - cardizem 30 mg PO QID for tachycardia - not a candidate for anticoag due to GI bleed Pulm: - Hypoxic respiratory failure s/p intubation - cpap trial today tolerating well at 515 - possible extubation GI: - acute blood loss anemia 2/2 GI bleed, now stable - remains on protonix drip - Dr Black consulted, appreciate recs; GI bleed stabilized, no active bleeding, no indication for surgery at this time Endo: - metabolic acidosis resolved Renal: - Acute Renal Failure resolving - monitor and replete electrolytes as needed ID: - Septic shock on arrival - Currently on Cipro and Vanco, for abx as per ID Dispo: ICU, pending repeat trial for possible extubation Ppx: Protonix drip covers for GI, SCDs for DVT (avoid AC given GI bleed) Patient seen, reviewed, and discussed with attending, Dr. Carlos Hwang PGY1 <Lito Gonzalez M - Last Filed: 05/16/18 16:48> CCU Objective - Vital Signs / Intake & Output Vital Signs (Last 4 hours): Vital Signs Temp Pulse Resp BP Pulse Ox 05/16/18 16:00 99.0 F 95 H 24 144/70 100 05/16/18 15:00 95 H 26 H 132/62 100 05/16/18 14:55 96 H 34 H 125/64 100 05/16/18 14:01 85 17 84/45 L 99 05/16/18 14:00 85 15 100 05/16/18 13:38 85 18 91/46 L 99 05/16/18 13:00 97 H 29 H 98 Intake and Output (Last 8hrs): Intake & Output 05/16/18 05/16/18 05/16/18 06:59 14:59 22:59 Intake Total 515.0 480 120 Output Total 300 101 Balance 215.0 379 120 Weight 104 lb 11.2 oz Intake: Intake, IV Amount 100.0 Right Proximal Port 100.0 Internal Jugular Tube Feeding 415 480 120 Output: Urine 300 100 Urine, Voided 300 100 Urine/Stool Mix 1 Other: # Voids Urine, Voided 0 0 # Bowel Movements 0 1 - Medications Active Medications: Active Medications Generic Name Dose Route Start Last Admin Trade Name Freq PRN Reason Stop Dose Admin Albuterol/Ipratropium 3 ml 05/07/18 21:18 05/11/18 15:30 Duoneb 3 Mg/0.5 Mg (3 Ml) Ud INH 3 ml RQ6 PRN Administration Cough Albuterol/Ipratropium 3 ml 05/11/18 20:00 05/16/18 13:55 Duoneb 3 Mg/0.5 Mg (3 Ml) Ud INH 3 ml RQ6 JUDY Administration Diltiazem HCl 30 mg 05/12/18 10:00 05/16/18 13:41 Cardizem PO Not Given QID JUDY Ciprofloxacin 100 mls @ 67 mls/hr 05/09/18 17:00 05/16/18 16:04 Cipro 200mg/100ml D5w IVPB 67 mls/hr Q12H JUDY Administration Protocol Vancomycin/Sodium Chloride 1 gm in 200 mls @ 133.333 mls/hr 05/11/18 19:30 05/14/18 18:37 Vancomycin 1 Gm/Ns 200 Ml IVPB 05/16/18 19:31 133.333 mls/hr Q24H JUDY Administration Protocol Insulin Aspart 0 unit 05/12/18 00:00 05/16/18 13:38 Novolog SC 6 units Q6 JUDY Administration Protocol Metoprolol Tartrate 50 mg 05/12/18 10:00 05/16/18 09:06 Lopressor PO 50 mg BID JUDY Administration Neomycin/Polymyxin/Bacitracin 0 gm 05/10/18 10:00 05/16/18 09:08 Neosporin Triple Antibiotic Oint TOP 1 applic BID JUDY Administration Nystatin 1 applic 05/09/18 18:00 05/16/18 09:08 Nystop Topical Powder TOP 1 applic BID JUDY Administration Pantoprazole Sodium 40 mg 05/13/18 07:45 05/16/18 06:46 Protonix Inj IVP 40 mg Q12H JUDY Administration Rosuvastatin Calcium 10 mg 05/07/18 22:00 05/15/18 22:00 Crestor PO 10 mg HS JUDY Administration - Patient Studies Lab Studies: Microbiology Studies 05/15/18 Unknown Gram Stain - Final Sputum Lab Studies 05/16/18 05/16/18 05/16/18 Range/Units 06:11 06:11 05:28 WBC 10.6 (4.8-10.8) K/uL RBC 3.39 L (3.80-5.20) Mil/uL Hgb 10.3 L (11.0-16.0) g/dL Hct 30.3 L (34.0-47.0) % MCV 89.2 (81.0-99.0) fL MCH 30.4 (27.0-31.0) pg MCHC 34.1 (33.0-37.0) g/dL RDW 17.7 H (11.5-14.5) % Plt Count 231 (130-400) K/uL MPV 8.5 (7.2-11.7) fL Neut % (Auto) 75.6 H (50.0-75.0) % Lymph % (Auto) 11.2 L (20.0-40.0) % [place] % (Auto) 9.5 (0.0-10.0) % Eos % (Auto) 3.1 (0.0-4.0) % Baso % (Auto) 0.6 (0.0-2.0) % Neut # (Auto) 8.0 H (1.8-7.0) K/uL Lymph # (Auto) 1.2 (1.0-4.3) K/uL [place] # (Auto) 1.0 H (0.0-0.8) K/uL Eos # (Auto) 0.3 (0.0-0.7) K/uL Baso # (Auto) 0.1 (0.0-0.2) K/uL Puncture Site pCO2 (35-45) mm/Hg pO2 (80-100) mm/Hg HCO3 (21-28) mmol/L ABG pH (7.35-7.45) ABG Total CO2 (22-28) mmol/L ABG O2 Saturation (95-98) % ABG Base Excess (-2.0-3.0) mmol/L ABG Hemoglobin (11.7-17.4) g/dL ABG Carboxyhemoglobin (0.5-1.5) % POC ABG HHb (Measured) (0.0-5.0) % ABG Methemoglobin (0.0-3.0) % Scuot Test A-a O2 Difference mm/Hg Respiratory Index Hgb O2 Saturation (95.0-98.0) % Vent Mode Mechanical Rate FiO2 % Tidal Volume PEEP Sodium 142 (132-148) mmol/L Potassium 3.8 (3.6-5.2) mmol/L Chloride 107 (98-107) mmol/L Carbon Dioxide 26 (22-30) mmol/L Anion Gap 12 (10-20) BUN 19 H (7-17) mg/dL Creatinine 0.8 (0.7-1.2) mg/dL Est GFR ( Amer) > 60 Est GFR (Non-Af Amer) > 60 POC Glucose (mg/dL) 231 H (65-110) mg/dL Random Glucose 237 H (65-105) mg/dL Calcium 9.1 (8.6-10.4) mg/dl Phosphorus 2.8 (2.5-4.5) mg/dL Magnesium 1.8 (1.6-2.3) mg/dL Total Bilirubin 0.4 (0.2-1.3) mg/dL AST 18 (14-36) U/L ALT 89 H D (9-52) U/L Alkaline Phosphatase 63 (38-126) U/L Total Protein 5.7 L (6.3-8.3) g/dL Albumin 3.0 L (3.5-5.0) g/dL Globulin 2.7 (2.2-3.9) gm/dL Albumin/Globulin Ratio 1.1 (1.0-2.1) 05/16/18 05/15/18 05/15/18 Range/Units 04:30 23:50 18:03 WBC (4.8-10.8) K/uL RBC (3.80-5.20) Mil/uL Hgb (11.0-16.0) g/dL Hct (34.0-47.0) % MCV (81.0-99.0) fL MCH (27.0-31.0) pg MCHC (33.0-37.0) g/dL RDW (11.5-14.5) % Plt Count (130-400) K/uL MPV (7.2-11.7) fL Neut % (Auto) (50.0-75.0) % Lymph % (Auto) (20.0-40.0) % [place] % (Auto) (0.0-10.0) % Eos % (Auto) (0.0-4.0) % Baso % (Auto) (0.0-2.0) % Neut # (Auto) (1.8-7.0) K/uL Lymph # (Auto) (1.0-4.3) K/uL [place] # (Auto) (0.0-0.8) K/uL Eos # (Auto) (0.0-0.7) K/uL Baso # (Auto) (0.0-0.2) K/uL Puncture Site Rr pCO2 30 L (35-45) mm/Hg pO2 144 H (80-100) mm/Hg HCO3 26.7 (21-28) mmol/L ABG pH 7.52 H (7.35-7.45) ABG Total CO2 25.4 (22-28) mmol/L ABG O2 Saturation 99.0 H (95-98) % ABG Base Excess 2.3 (-2.0-3.0) mmol/L ABG Hemoglobin 12.2 (11.7-17.4) g/dL ABG Carboxyhemoglobin 1.7 H (0.5-1.5) % POC ABG HHb (Measured) 1.0 (0.0-5.0) % ABG Methemoglobin 1.5 (0.0-3.0) % Scout Test Pos A-a O2 Difference 32.0 mm/Hg Respiratory Index 0.2 Hgb O2 Saturation 95.8 (95.0-98.0) % Vent Mode Prvc Mechanical Rate 16 FiO2 30.0 % Tidal Volume 400 PEEP 5 Sodium (132-148) mmol/L Potassium (3.6-5.2) mmol/L Chloride (98-107) mmol/L Carbon Dioxide (22-30) mmol/L Anion Gap (10-20) BUN (7-17) mg/dL Creatinine (0.7-1.2) mg/dL Est GFR ( Amer) Est GFR (Non-Af Amer) POC Glucose (mg/dL) 259 H 228 H (65-110) mg/dL Random Glucose (65-105) mg/dL Calcium (8.6-10.4) mg/dl Phosphorus (2.5-4.5) mg/dL Magnesium (1.6-2.3) mg/dL Total Bilirubin (0.2-1.3) mg/dL AST (14-36) U/L ALT (9-52) U/L Alkaline Phosphatase (38-126) U/L Total Protein (6.3-8.3) g/dL Albumin (3.5-5.0) g/dL Globulin (2.2-3.9) gm/dL Albumin/Globulin Ratio (1.0-2.1) 05/15/ Range/Units 11:24 WBC (4.8-10.8) K/uL RBC (3.80-5.20) Mil/uL Hgb (11.0-16.0) g/dL Hct (34.0-47.0) % MCV (81.0-99.0) fL MCH (27.0-31.0) pg MCHC (33.0-37.0) g/dL RDW (11.5-14.5) % Plt Count (130-400) K/uL MPV (7.2-11.7) fL Neut % (Auto) (50.0-75.0) % Lymph % (Auto) (20.0-40.0) % [place] % (Auto) (0.0-10.0) % Eos % (Auto) (0.0-4.0) % Baso % (Auto) (0.0-2.0) % Neut # (Auto) (1.8-7.0) K/uL Lymph # (Auto) (1.0-4.3) K/uL [place] # (Auto) (0.0-0.8) K/uL Eos # (Auto) (0.0-0.7) K/uL Baso # (Auto) (0.0-0.2) K/uL Puncture Site pCO2 (35-45) mm/Hg pO2 (80-100) mm/Hg HCO3 (21-28) mmol/L ABG pH (7.35-7.45) ABG Total CO2 (22-28) mmol/L ABG O2 Saturation (95-98) % ABG Base Excess (-2.0-3.0) mmol/L ABG Hemoglobin (11.7-17.4) g/dL ABG Carboxyhemoglobin (0.5-1.5) % POC ABG HHb (Measured) (0.0-5.0) % ABG Methemoglobin (0.0-3.0) % Scout Test A-a O2 Difference mm/Hg Respiratory Index Hgb O2 Saturation (95.0-98.0) % Vent Mode Mechanical Rate FiO2 % Tidal Volume PEEP Sodium (132-148) mmol/L Potassium (3.6-5.2) mmol/L Chloride (98-107) mmol/L Carbon Dioxide (22-30) mmol/L Anion Gap (10-20) BUN (7-17) mg/dL Creatinine (0.7-1.2) mg/dL Est GFR ( Amer) Est GFR (Non-Af Amer) POC Glucose (mg/dL) 251 H (65-110) mg/dL Random Glucose (65-105) mg/dL Calcium (8.6-10.4) mg/dl Phosphorus (2.5-4.5) mg/dL Magnesium (1.6-2.3) mg/dL Total Bilirubin (0.2-1.3) mg/dL AST (14-36) U/L ALT (9-52) U/L Alkaline Phosphatase (38-126) U/L Total Protein (6.3-8.3) g/dL Albumin (3.5-5.0) g/dL Globulin (2.2-3.9) gm/dL Albumin/Globulin Ratio (1.0-2.1) Laboratory Results - last 24 hr 05/15/18 05/15/18 05/15/18 11:24 18:03 23:50 WBC RBC Hgb Hct MCV MCH MCHC RDW Plt Count MPV Neut % (Auto) Lymph % (Auto) [place] % (Auto) Eos % (Auto) Baso % (Auto) Neut # (Auto) Lymph # (Auto) [place] # (Auto) Eos # (Auto) Baso # (Auto) Puncture Site pCO2 pO2 HCO3 ABG pH ABG Total CO2 ABG O2 Saturation ABG Base Excess ABG Hemoglobin ABG Carboxyhemoglobin POC ABG HHb (Measured) ABG Methemoglobin Scout Test A-a O2 Difference Respiratory Index Hgb O2 Saturation Vent Mode Mechanical Rate FiO2 Tidal Volume PEEP Sodium Potassium Chloride Carbon Dioxide Anion Gap BUN Creatinine Est GFR ( Amer) Est GFR (Non-Af Amer) POC Glucose (mg/dL) 251 H 228 H 259 H Random Glucose Calcium Phosphorus Magnesium Total Bilirubin AST ALT Alkaline Phosphatase Total Protein Albumin Globulin Albumin/Globulin Ratio 05/16/18 05/16/18 05/16/18 04:30 05:28 06:11 WBC 10.6 RBC 3.39 L Hgb 10.3 L Hct 30.3 L MCV 89.2 MCH 30.4 MCHC 34.1 RDW 17.7 H Plt Count 231 MPV 8.5 Neut % (Auto) 75.6 H Lymph % (Auto) 11.[address] [place] % (Auto) 9.5 Eos % (Auto) 3.1 Baso % (Auto) 0.6 Neut # (Auto) 8.0 H Lymph # (Auto) 1.2 [place] # (Auto) 1.0 H Eos # (Auto) 0.3 Baso # (Auto) 0.1 Puncture Site Rr pCO2 30 L pO2 144 H HCO3 26.7 ABG pH 7.52 H ABG Total CO2 25.4 ABG O2 Saturation 99.0 H ABG Base Excess 2.3 ABG Hemoglobin 12.2 ABG Carboxyhemoglobin 1.7 H POC ABG HHb (Measured) 1.0 ABG Methemoglobin 1.5 Scout Test Pos A-a O2 Difference 32.0 Respiratory Index 0.2 Hgb O2 Saturation 95.8 Vent Mode Prvc Mechanical Rate 16 FiO2 30.0 Tidal Volume 400 PEEP 5 Sodium Potassium Chloride Carbon Dioxide Anion Gap BUN Creatinine Est GFR ( Amer) Est GFR (Non-Af Amer) POC Glucose (mg/dL) 231 H Random Glucose Calcium Phosphorus Magnesium Total Bilirubin AST ALT Alkaline Phosphatase Total Protein Albumin Globulin Albumin/Globulin Ratio 05/16/18 06:11 WBC RBC Hgb Hct MCV MCH MCHC RDW Plt Count MPV Neut % (Auto) Lymph % (Auto) [place] % (Auto) Eos % (Auto) Baso % (Auto) Neut # (Auto) Lymph # (Auto) [place] # (Auto) Eos # (Auto) Baso # (Auto) Puncture Site pCO2 pO2 HCO3 ABG pH ABG Total CO2 ABG O2 Saturation ABG Base Excess ABG Hemoglobin ABG Carboxyhemoglobin POC ABG HHb (Measured) ABG Methemoglobin Scout Test A-a O2 Difference Respiratory Index Hgb O2 Saturation Vent Mode Mechanical Rate FiO2 Tidal Volume PEEP Sodium 142 Potassium 3.8 Chloride 107 Carbon Dioxide 26 Anion Gap 12 BUN 19 H Creatinine 0.8 Est GFR ( Amer) > 60 Est GFR (Non-Af Amer) > 60 POC Glucose (mg/dL) Random Glucose 237 H Calcium 9.1 Phosphorus 2.8 Magnesium 1.8 Total Bilirubin 0.4 AST 18 ALT 89 H D Alkaline Phosphatase 63 Total Protein 5.7 L Albumin 3.0 L Globulin 2.7 Albumin/Globulin Ratio 1.1 Critical Care Progress Note - Nutrition Nutrition: Nutrition Category Date Time Status NPO Diet [DIET] Diets 05/09/18 Breakfast Active Attending/Attestation - Attestation I have personally seen and examined this patient.: Yes I have fully participated in the care of the patient.: Yes I have reviewed all pertinent clinical information: Yes Notes (Text): 05/16/18 16:47 Today: April The Patient was seen and examined at the bedside, Medical records reviewed, and management issues were discussed and formulated with the house staff. I have reviewed all the relevant clinical, laboratory, hemodynamic, radiographic data and medications Events reviewed Pain issues, skin care, head of the bed elevation, glycemic control were addressed. Agree with above resident's assessment and treatment plans of care as transcribed in Dr. Hwang's note.
--- NOTE | 2018-05-16 18:24 | CP.PCM.PN ---
Subjective - Date & Time of Evaluation Date of Evaluation: 05/16/18 Time of Evaluation: 18:23 - Subjective Subjective: Patient this morning was more sleepy. Attempted CPAP trial was unsuccessful because of the drowsiness. Vital signs are stable. X-ray of the chest is clear. Secretions from the lungs is less. No fever noted On examination: Bilateral clear lungs Abdomen soft. Edema in the legs 1+ noted Plan: Patient with multiple medical problems, COPD CAD CHF also pacemaker. No respiratory failure now admitted with acute on chronic respiratory failure on ventilator. Possible aspiration pneumonitis. And also patient is having cellulitis. On antibiotic. GI bleed is better now. Been as tolerated. Avoid sedatives. We will follow-up the patient Objective - Vital Signs/Intake and Output Vital Signs (last 24 hours): Temp Pulse Resp BP Pulse Ox 99.0 F 97 H 30 H 135/62 99 05/16/18 16:00 05/16/18 17:00 05/16/18 17:00 05/16/18 17:00 05/16/18 17:00 Intake and Output: 05/16/18 05/16/18 06:59 18:59 Intake Total 795.0 820 Output Total 300 202 Balance 495.0 618 - Medications Medications: Current Medications Albuterol/Ipratropium (Duoneb 3 Mg/0.5 Mg (3 Ml) Ud) 3 ml INH RQ6 PRN PRN Reason: Cough Last Admin: 05/11/18 15:30 Dose: 3 ml Albuterol/Ipratropium (Duoneb 3 Mg/0.5 Mg (3 Ml) Ud) 3 ml INH RQ6 [facility] Last Admin: 05/16/18 13:55 Dose: 3 ml Diltiazem HCl (Cardizem) 30 mg PO QID [facility] Last Admin: 05/16/18 17:41 Dose: 30 mg Ciprofloxacin (Cipro 200mg/100ml D5w) 100 mls @ 67 mls/hr IVPB Q12H [facility]; Protocol Last Admin: 05/16/18 16:04 Dose: 67 mls/hr Vancomycin/Sodium Chloride (Vancomycin 1 Gm/Ns 200 Ml) 1 gm in 200 mls @ 133.333 mls/hr IVPB Q24H [facility]; Protocol Stop: 05/16/18 19:31 Last Admin: 10/16/18 18:37 Dose: 133.333 mls/hr Insulin Aspart (Novolog) 0 unit SC Q6 [facility]; Protocol Last Admin: 05/16/18 13:38 Dose: 6 units Metoprolol Tartrate (Lopressor) 50 mg PO BID [facility] Last Admin: 05/16/18 17:41 Dose: 50 mg Neomycin/Polymyxin/Bacitracin (Neosporin Triple Antibiotic Oint) 0 gm TOP BID [facility] Last Admin: 05/16/18 17:42 Dose: 1 applic Nystatin (Nystop Topical Powder) 1 applic TOP BID [facility] Last Admin: 05/16/18 17:42 Dose: 1 applic Pantoprazole Sodium (Protonix Inj) 40 mg IVP Q12H [facility] Last Admin: 05/16/18 06:46 Dose: 40 mg Rosuvastatin Calcium (Crestor) 10 mg PO HS [facility] Last Admin: 05/15/18 22:00 Dose: 10 mg - Labs Labs: 05/16/18 06:11 05/16/18 06:11 PT 18.4 SECONDS (9.7-12.2) H 05/09/18 09:10 INR 1.7 05/09/18 09:10 APTT 25 SECONDS (21-34) 05/10/18 23:10
--- NOTE | 2018-05-16 22:28 | CP.PCM.PN ---
Subjective - Date & Time of Evaluation Date of Evaluation: 05/16/18 Time of Evaluation: 19:15 - Subjective Subjective: Patient seen and evaluated On ventilator Hx of CAD, COPD and resp Failure Objective - Vital Signs/Intake and Output Vital Signs (last 24 hours): Temp Pulse Resp BP Pulse Ox 99.0 F 76 27 H 130/55 L 100 05/16/18 16:00 05/16/18 18:59 05/16/18 18:59 05/16/18 19:00 05/16/18 18:59 Intake and Output: 05/16/18 05/17/18 18:59 06:59 Intake Total 820 60 Output Total 202 Balance 618 60 - Medications Medications: Current Medications Albuterol/Ipratropium (Duoneb 3 Mg/0.5 Mg (3 Ml) Ud) 3 ml INH RQ6 PRN PRN Reason: Cough Last Admin: 05/11/18 15:30 Dose: 3 ml Diltiazem HCl (Cardizem) 30 mg PO QID [facility] Last Admin: 05/16/18 22:01 Dose: 30 mg Ciprofloxacin (Cipro 200mg/100ml D5w) 100 mls @ 67 mls/hr IVPB Q12H [facility]; Protocol Last Admin: 05/16/18 16:04 Dose: 67 mls/hr Insulin Aspart (Novolog) 0 unit SC Q6 [facility]; Protocol Last Admin: 05/16/18 19:20 Dose: 8 units Metoprolol Tartrate (Lopressor) 50 mg PO BID [facility] Last Admin: 05/16/18 17:41 Dose: 50 mg Neomycin/Polymyxin/Bacitracin (Neosporin Triple Antibiotic Oint) 0 gm TOP BID [facility] Last Admin: 05/16/18 17:42 Dose: 1 applic Nystatin (Nystop Topical Powder) 1 applic TOP BID [facility] Last Admin: 05/16/18 17:42 Dose: 1 applic Pantoprazole Sodium (Protonix Inj) 40 mg IVP Q12H [facility] Last Admin: 05/16/18 20:28 Dose: 40 mg Rosuvastatin Calcium (Crestor) 10 mg PO HS [facility] Last Admin: 05/16/18 22:01 Dose: 10 mg - Labs Labs: 05/16/18 06:11 05/16/18 06:11 PT 18.4 SECONDS (9.7-12.2) H 05/09/18 09:10 INR 1.7 05/09/18 09:10 APTT 25 SECONDS (21-34) 05/10/18 23:10
[2018-05-17] MEDS: (Novolog) Insulin Aspart, Recombinant 100 u/ml 10 ml vial SC SCH ×5 (01:01→23:48)
[2018-05-17 05:22] LABS: ABG ALLEN TEST POS; ARTERIAL BLOOD GAS HCO3 27.6 mmol/L (21-28); ARTERIAL BLOOD GAS HEMOGLOBIN 10.2 g/dL (11.7-17.4); ARTERIAL BLOOD GAS O2 SAT 98.7 % (95-98); ARTERIAL BLOOD GAS PCO2 32 mm/Hg (35-45); ARTERIAL BLOOD GAS PH 7.52 (7.35-7.45); ARTERIAL BLOOD GAS PO2 107 mm/Hg (80-100); ARTERIAL BLOOD GAS TCO2 27.1 mmol/L (22-28)
[2018-05-17] MEDS: Ciprofloxacin 200mg/100ml D5W 100 ML IVPB SCH ×2 (05:29→16:27)
[2018-05-17 06:54] LABS: BASO # 0.1 K/uL (0.0-0.2); BASO % 0.5 % (0.0-2.0); EOS # 0.4 K/uL (0.0-0.7); EOS % 3.1 % (0.0-4.0); HEMOGLOBIN 10.4 g/dL (11.0-16.0); LYMPH # 1.2 K/uL (1.0-4.3); LYMPH % 10.6 % (20.0-40.0); MEAN CELL VOLUME 90.3 fL (81.0-99.0); MEAN CORPUSCULAR HEMOGLOBIN 30.5 pg (27.0-31.0); MEAN CORPUSCULAR HGB CONC 33.8 g/dL (33.0-37.0); MEAN PLATELET VOLUME 8.3 fL (7.2-11.7); MONO # 1.1 K/uL (0.0-0.8); NEUT % 76.8 % (50.0-75.0); RBC 3.41 Mil/uL (3.80-5.20); RED CELL DISTRIBUTION WIDTH 18.1 % (11.5-14.5); WHITE BLOOD COUNT 11.7 K/uL (4.8-10.8)
[2018-05-17 07:16] LABS: ALB/GLOB RATIO 1.1 (1.0-2.1); ALT/SGPT 65 U/L (9-52); AST/SGOT 24 U/L (14-36); BLOOD UREA NITROGEN 24 mg/dL (7-17); CALCIUM 9.2 mg/dl (8.6-10.4); GFR NON-AFRICAN AMERICAN > 60
--- NOTE | 2018-05-17 07:40 | CP.PCM.PN ---
Subjective - Date & Time of Evaluation Date of Evaluation: 05/17/18 Time of Evaluation: 07:38 - Subjective Subjective: f/u diarrhea. Still with loose stools. 200 cc. No RB, melena, fever, chills, hematuria, hemoptysis, SZ, tremor Objective - Vital Signs/Intake and Output Vital Signs (last 24 hours): Temp Pulse Resp BP Pulse Ox 98 F 92 H 16 131/54 L 100 05/17/18 00:00 05/17/18 02:00 05/17/18 02:00 05/17/18 02:00 05/17/18 02:00 Intake and Output: 05/17/18 05/17/18 06:59 18:59 Intake Total 480 Balance 480 - Medications Medications: Current Medications Albuterol/Ipratropium (Duoneb 3 Mg/0.5 Mg (3 Ml) Ud) 3 ml INH RQ6 PRN PRN Reason: Cough Last Admin: 05/11/18 15:30 Dose: 3 ml Diltiazem HCl (Cardizem) 30 mg PO QID [facility] Last Admin: 05/16/18 22:01 Dose: 30 mg Ciprofloxacin (Cipro 200mg/100ml D5w) 100 mls @ 67 mls/hr IVPB Q12H [facility]; Protocol Last Admin: 05/17/18 05:29 Dose: 67 mls/hr Insulin Aspart (Novolog) 0 unit SC Q6 [facility]; Protocol Last Admin: 05/17/18 06:32 Dose: 4 units Metoprolol Tartrate (Lopressor) 50 mg PO BID [facility] Last Admin: 05/16/18 17:41 Dose: 50 mg Neomycin/Polymyxin/Bacitracin (Neosporin Triple Antibiotic Oint) 0 gm TOP BID [facility] Last Admin: 05/16/18 17:42 Dose: 1 applic Nystatin (Nystop Topical Powder) 1 applic TOP BID [facility] Last Admin: 05/16/18 17:42 Dose: 1 applic Pantoprazole Sodium (Protonix Inj) 40 mg IVP Q12H [facility] Last Admin: 05/16/18 20:28 Dose: 40 mg Rosuvastatin Calcium (Crestor) 10 mg PO HS [facility] Last Admin: 05/16/18 22:01 Dose: 10 mg - Labs Labs: 05/17/18 06:46 05/17/18 06:46 PT 18.4 SECONDS (9.7-12.2) H 05/09/18 09:10 INR 1.7 05/09/18 09:10 APTT 25 SECONDS (21-34) 05/10/18 23:10 - Constitutional Appears: Confused - Respiratory Exam Respiratory Exam: Clear to Ausculation Bilateral - Cardiovascular Exam Cardiovascular Exam: RRR - GI/Abdominal Exam GI & Abdominal Exam: Soft, Normal Bowel Sounds. absent: Guarding, Tenderness, Mass, Rebound - Extremities Exam Extremities Exam: Pedal Edema - Neurological Exam Neurological Exam: Alert, Awake. absent: Oriented x3 Assessment and Plan (1) Altered mental status Status: Acute (2) Sepsis Status: Acute (3) Anxiety Status: Acute (4) CAD (coronary artery disease) Status: Acute (5) Diabetes 1.5, managed as type 2 Status: Acute (6) Esophageal stricture Status: Acute (7) Achalasia Status: Chronic (8) Diabetes Status: Chronic (9) Anemia Status: Acute (10) GI bleed Status: Acute (11) Elevated transaminase level Status: Acute (12) Diarrhea Assessment & Plan: on cipro. c diff neg. Consider- 1)change PEG feedings 2) Empiric flagyl Status: Acute
--- NOTE | 2018-05-17 08:13 | RAD ---
Date of service: 05/17/2018 HISTORY: pt intubated COMPARISON: 05/16/2018 FINDINGS: LUNGS: Mild to moderate venous congestion. Right hilar prominence. Biapical pleural thickening. PLEURA: No significant pleural effusion identified, no pneumothorax apparent. CARDIOVASCULAR: Atherosclerotic calcification present. Status post median sternotomy and CABG. Vascular stents in place. Tortuous ectatic aorta. Left-sided pacemaker. OSSEOUS STRUCTURES: Degenerative changes in the spine and shoulders. VISUALIZED UPPER ABDOMEN: Normal. OTHER FINDINGS: Lines and tubes in stable position. IMPRESSION: No significant interval change.
[2018-05-17] MEDS: Bacitracin/Neomycin/Polymyxin Oint(30GM) TOP SCH ×2 (09:36→17:47)
--- NOTE | 2018-05-17 14:36 | CP.CCUPN ---
<Dylon Hwang - Last Filed: 05/17/18 14:37> CCU Subjective - Physician Review Subjective (Free Text): Pt seen and examined at bedside. Pt unable to provide ROS, pt is able to nod and follows commands. extubated today at 1230. on BIPAP. will continue with med management 05/17/18 14:37 CCU Objective - Vital Signs / Intake & Output Vital Signs (Last 4 hours): Vital Signs Temp Pulse Resp BP Pulse Ox 05/17/18 14:04 155/66 H 05/17/18 14:03 97 H 29 H 100 05/17/18 14:00 96 H 20 100 05/17/18 13:24 96 H 05/17/18 13:00 96 H 39 H 108/66 99 05/17/18 12:46 92 H 05/17/18 12:00 98.1 F 89 22 121/58 L 98 05/17/18 11:00 87 29 H 129/63 97 Intake and Output (Last 8hrs): Intake & Output 05/16/18 05/17/18 05/17/18 22:59 06:59 14:59 Intake Total 460 520 360 Output Total 101 350 Balance 359 170 360 Weight 103 lb Intake: Intake, IV Amount 100 100 Right Proximal Port 100 Internal Jugular Right medial Port Y site 100 Tube Feeding 360 420 360 Output: Urine 100 350 Urine, Voided 100 350 Urine/Stool Mix 1 - Physical Exam Head: Positive for: Atraumatic, Normocephalic Pupils: Positive for: PERRL. Negative for: Pinpoint Extroacular Muscles: Positive for: EOMI Conjunctiva: Positive for: Normal. Negative for: Injected, Icteric Mouth: Positive for: Moist Mucous Membranes, Other (ett in place ). Negative for: Dry Nose (External): Positive for: Atraumatic. Negative for: Abrasion, Contusion, Laceration Nose (Internal): Positive for: No Active Bleeding. Negative for: Epistaxis Neck: Positive for: Normal Range of Motion, Trachea Midline. Negative for: JVD Respiratory/Chest: Positive for: Clear to Auscultation, Good Air Exchange. Negative for: Accessory Muscle Use, Wheezes, Rales, Rhonchi Cardiovascular: Positive for: Regular Rate and Rhythm, Normal S1, S2, Peripheal Pulses Present (+2 radials). Negative for: Irregular Rhythm, Tachycardic, Bradycardic Abdomen: Positive for: Normal Bowel Sounds. Negative for: Tenderness, Distention Upper Extremity: Positive for: Normal Inspection, NORMAL PULSES. Negative for: Cyanosis, Edema Lower Extremity: Positive for: Normal Inspection, NORMAL PULSES (+1 dorsalis pedis bilaterally). Negative for: Edema Neurological: Positive for: GCS=15 Skin: Positive for: Warm, Dry, Normal Color Psychiatric: Positive for: Alert, Other - Medications Active Medications: Active Medications Generic Name Dose Route Start Last Admin Trade Name Freq PRN Reason Stop Dose Admin Diltiazem HCl 30 mg 05/12/18 10:00 05/17/18 14:10 Cardizem PO 30 mg QID JUDY Administration Ciprofloxacin 100 mls @ 67 mls/hr 05/09/18 17:00 05/17/18 05:29 Cipro 200mg/100ml D5w IVPB 67 mls/hr Q12H JUDY Administration Protocol Insulin Aspart 0 unit 05/12/18 00:00 05/17/18 12:31 Novolog SC 6 units Q6 JUDY Administration Protocol Metoprolol Tartrate 50 mg 05/12/18 10:00 05/17/18 09:35 Lopressor PO 50 mg BID JUDY Administration Neomycin/Polymyxin/Bacitracin 0 gm 05/10/18 10:00 05/17/18 09:36 Neosporin Triple Antibiotic Oint TOP 1 applic BID JUDY Administration Nystatin 1 applic 05/09/18 18:00 05/17/18 09:35 Nystop Topical Powder TOP 1 applic BID JUDY Administration Pantoprazole Sodium 40 mg 05/13/18 07:45 05/17/18 08:48 Protonix Inj IVP 40 mg Q12H JUDY Administration Rosuvastatin Calcium 10 mg 05/07/18 22:00 05/16/18 22:01 Crestor PO 10 mg HS JUDY Administration - Patient Studies Lab Studies: Microbiology Studies 05/15/18 Unknown Gram Stain - Final Sputum Lab Studies 05/17/18 05/17/18 05/17/18 Range/Units 11:46 06:46 06:46 WBC (4.8-10.8) K/uL RBC (3.80-5.20) Mil/uL Hgb (11.0-16.0) g/dL Hct (34.0-47.0) % MCV (81.0-99.0) fL MCH (27.0-31.0) pg MCHC (33.0-37.0) g/dL RDW (11.5-14.5) % Plt Count (130-400) K/uL MPV (7.2-11.7) fL Neut % (Auto) (50.0-75.0) % Lymph % (Auto) (20.0-40.0) % Dickens % (Auto) (0.0-10.0) % Eos % (Auto) (0.0-4.0) % Baso % (Auto) (0.0-2.0) % Neut # (Auto) (1.8-7.0) K/uL Lymph # (Auto) (1.0-4.3) K/uL Dickens # (Auto) (0.0-0.8) K/uL Eos # (Auto) (0.0-0.7) K/uL Baso # (Auto) (0.0-0.2) K/uL Puncture Site pCO2 (35-45) mm/Hg pO2 (80-100) mm/Hg HCO3 (21-28) mmol/L ABG pH (7.35-7.45) ABG Total CO2 (22-28) mmol/L ABG O2 Saturation (95-98) % ABG Base Excess (-2.0-3.0) mmol/L ABG Hemoglobin (11.7-17.4) g/dL ABG Carboxyhemoglobin (0.5-1.5) % POC ABG HHb (Measured) (0.0-5.0) % ABG Methemoglobin (0.0-3.0) % Scout Test A-a O2 Difference mm/Hg Respiratory Index Hgb O2 Saturation (95.0-98.0) % Vent Mode Mechanical Rate FiO2 % Tidal Volume PEEP Sodium 142 (132-148) mmol/L Potassium 4.0 (3.6-5.2) mmol/L Chloride 107 (98-107) mmol/L Carbon Dioxide 25 (22-30) mmol/L Anion Gap 14 (10-20) BUN 24 H (7-17) mg/dL Creatinine 0.7 (0.7-1.2) mg/dL Est GFR ( Amer) > 60 Est GFR (Non-Af Amer) > 60 POC Glucose (mg/dL) 288 H (65-110) mg/dL Random Glucose 298 H (65-105) mg/dL Calcium 9.2 (8.6-10.4) mg/dl Phosphorus 2.4 L (2.5-4.5) mg/dL Magnesium 1.8 (1.6-2.3) mg/dL Total Bilirubin 0.3 (0.2-1.3) mg/dL AST 24 (14-36) U/L ALT 65 H D (9-52) U/L Alkaline Phosphatase 81 (38-126) U/L Total Protein 5.9 L (6.3-8.3) g/dL Albumin 3.0 L (3.5-5.0) g/dL Globulin 2.9 (2.2-3.9) gm/dL Albumin/Globulin Ratio 1.1 (1.0-2.1) Random Vancomycin 8.3 ug/mL 05/17/18 05/17/18 05/17/18 Range/Units 06:46 06:05 05:07 WBC 11.7 H (4.8-10.8) K/uL RBC 3.41 L (3.80-5.20) Mil/uL Hgb 10.4 L (11.0-16.0) g/dL Hct 30.8 L (34.0-47.0) % MCV 90.3 (81.0-99.0) fL MCH 30.5 (27.0-31.0) pg MCHC 33.8 (33.0-37.0) g/dL RDW 18.1 H (11.5-14.5) % Plt Count 319 (130-400) K/uL MPV 8.3 (7.2-11.7) fL Neut % (Auto) 76.8 H (50.0-75.0) % Lymph % (Auto) 10.6 L (20.0-40.0) % Dickens % (Auto) 9.0 (0.0-10.0) % Eos % (Auto) 3.1 (0.0-4.0) % Baso % (Auto) 0.5 (0.0-2.0) % Neut # (Auto) 9.0 H (1.8-7.0) K/uL Lymph # (Auto) 1.2 (1.0-4.3) K/uL Dickens # (Auto) 1.1 H (0.0-0.8) K/uL Eos # (Auto) 0.4 (0.0-0.7) K/uL Baso # (Auto) 0.1 (0.0-0.2) K/uL Puncture Site L rad pCO2 32 L (35-45) mm/Hg pO2 107 H (80-100) mm/Hg HCO3 27.6 (21-28) mmol/L ABG pH 7.52 H (7.35-7.45) ABG Total CO2 27.1 (22-28) mmol/L ABG O2 Saturation 98.7 H (95-98) % ABG Base Excess 3.4 H (-2.0-3.0) mmol/L ABG Hemoglobin 10.2 L (11.7-17.4) g/dL ABG Carboxyhemoglobin 1.7 H (0.5-1.5) % POC ABG HHb (Measured) 1.3 (0.0-5.0) % ABG Methemoglobin 1.4 (0.0-3.0) % Scout Test Pos A-a O2 Difference 67.0 mm/Hg Respiratory Index 0.6 Hgb O2 Saturation 95.7 (95.0-98.0) % Vent Mode Prvc Mechanical Rate 16 FiO2 30.0 % Tidal Volume 400 PEEP 5 Sodium (132-148) mmol/L Potassium (3.6-5.2) mmol/L Chloride (98-107) mmol/L Carbon Dioxide (22-30) mmol/L Anion Gap (10-20) BUN (7-17) mg/dL Creatinine (0.7-1.2) mg/dL Est GFR ( Amer) Est GFR (Non-Af Amer) POC Glucose (mg/dL) 247 H (65-110) mg/dL Random Glucose (65-105) mg/dL Calcium (8.6-10.4) mg/dl Phosphorus (2.5-4.5) mg/dL Magnesium (1.6-2.3) mg/dL Total Bilirubin (0.2-1.3) mg/dL AST (14-36) U/L ALT (9-52) U/L Alkaline Phosphatase (38-126) U/L Total Protein (6.3-8.3) g/dL Albumin (3.5-5.0) g/dL Globulin (2.2-3.9) gm/dL Albumin/Globulin Ratio (1.0-2.1) Random Vancomycin ug/mL 05/17/18 05/16/18 05/16/18 Range/Units 00:24 17:40 11:30 WBC (4.8-10.8) K/uL RBC (3.80-5.20) Mil/uL Hgb (11.0-16.0) g/dL Hct (34.0-47.0) % MCV (81.0-99.0) fL MCH (27.0-31.0) pg MCHC (33.0-37.0) g/dL RDW (11.5-14.5) % Plt Count (130-400) K/uL MPV (7.2-11.7) fL Neut % (Auto) (50.0-75.0) % Lymph % (Auto) (20.0-40.0) % Dickens % (Auto) (0.0-10.0) % Eos % (Auto) (0.0-4.0) % Baso % (Auto) (0.0-2.0) % Neut # (Auto) (1.8-7.0) K/uL Lymph # (Auto) (1.0-4.3) K/uL Dickens # (Auto) (0.0-0.8) K/uL Eos # (Auto) (0.0-0.7) K/uL Baso # (Auto) (0.0-0.2) K/uL Puncture Site pCO2 (35-45) mm/Hg pO2 (80-100) mm/Hg HCO3 (21-28) mmol/L ABG pH (7.35-7.45) ABG Total CO2 (22-28) mmol/L ABG O2 Saturation (95-98) % ABG Base Excess (-2.0-3.0) mmol/L ABG Hemoglobin (11.7-17.4) g/dL ABG Carboxyhemoglobin (0.5-1.5) % POC ABG HHb (Measured) (0.0-5.0) % ABG Methemoglobin (0.0-3.0) % Scout Test A-a O2 Difference mm/Hg Respiratory Index Hgb O2 Saturation (95.0-98.0) % Vent Mode Mechanical Rate FiO2 % Tidal Volume PEEP Sodium (132-148) mmol/L Potassium (3.6-5.2) mmol/L Chloride (98-107) mmol/L Carbon Dioxide (22-30) mmol/L Anion Gap (10-20) BUN (7-17) mg/dL Creatinine (0.7-1.2) mg/dL Est GFR ( Amer) Est GFR (Non-Af Amer) POC Glucose (mg/dL) 242 H 304 H 271 H (65-110) mg/dL Random Glucose (65-105) mg/dL Calcium (8.6-10.4) mg/dl Phosphorus (2.5-4.5) mg/dL Magnesium (1.6-2.3) mg/dL Total Bilirubin (0.2-1.3) mg/dL AST (14-36) U/L ALT (9-52) U/L Alkaline Phosphatase (38-126) U/L Total Protein (6.3-8.3) g/dL Albumin (3.5-5.0) g/dL Globulin (2.2-3.9) gm/dL Albumin/Globulin Ratio (1.0-2.1) Random Vancomycin ug/mL Laboratory Results - last 24 hr 05/16/18 05/16/18 05/17/18 11:30 17:40 00:24 WBC RBC Hgb Hct MCV MCH MCHC RDW Plt Count MPV Neut % (Auto) Lymph % (Auto) Dickens % (Auto) Eos % (Auto) Baso % (Auto) Neut # (Auto) Lymph # (Auto) Dickens # (Auto) Eos # (Auto) Baso # (Auto) Puncture Site pCO2 pO2 HCO3 ABG pH ABG Total CO2 ABG O2 Saturation ABG Base Excess ABG Hemoglobin ABG Carboxyhemoglobin POC ABG HHb (Measured) ABG Methemoglobin Scout Test A-a O2 Difference Respiratory Index Hgb O2 Saturation Vent Mode Mechanical Rate FiO2 Tidal Volume PEEP Sodium Potassium Chloride Carbon Dioxide Anion Gap BUN Creatinine Est GFR ( Amer) Est GFR (Non-Af Amer) POC Glucose (mg/dL) 271 H 304 H 242 H Random Glucose Calcium Phosphorus Magnesium Total Bilirubin AST ALT Alkaline Phosphatase Total Protein Albumin Globulin Albumin/Globulin Ratio Random Vancomycin 05/17/18 05/17/18 05/17/18 05:07 06:05 06:46 WBC 11.7 H RBC 3.41 L Hgb 10.4 L Hct 30.8 L MCV 90.3 MCH 30.5 MCHC 33.8 RDW 18.1 H Plt Count 319 MPV 8.3 Neut % (Auto) 76.8 H Lymph % (Auto) 10.6 L Dickens % (Auto) 9.0 Eos % (Auto) 3.1 Baso % (Auto) 0.5 Neut # (Auto) 9.0 H Lymph # (Auto) 1.2 Dickens # (Auto) 1.1 H Eos # (Auto) 0.4 Baso # (Auto) 0.1 Puncture Site L rad pCO2 32 L pO2 107 H HCO3 27.6 ABG pH 7.52 H ABG Total CO2 27.1 ABG O2 Saturation 98.7 H ABG Base Excess 3.4 H ABG Hemoglobin 10.2 L ABG Carboxyhemoglobin 1.7 H POC ABG HHb (Measured) 1.3 ABG Methemoglobin 1.4 Scout Test Pos A-a O2 Difference 67.0 Respiratory Index 0.6 Hgb O2 Saturation 95.7 Vent Mode Prvc Mechanical Rate 16 FiO2 30.0 Tidal Volume 400 PEEP 5 Sodium Potassium Chloride Carbon Dioxide Anion Gap BUN Creatinine Est GFR ( Amer) Est GFR (Non-Af Amer) POC Glucose (mg/dL) 247 H Random Glucose Calcium Phosphorus Magnesium Total Bilirubin AST ALT Alkaline Phosphatase Total Protein Albumin Globulin Albumin/Globulin Ratio Random Vancomycin 05/17/18 05/17/18 05/17/18 06:46 06:46 11:46 WBC RBC Hgb Hct MCV MCH MCHC RDW Plt Count MPV Neut % (Auto) Lymph % (Auto) Dickens % (Auto) Eos % (Auto) Baso % (Auto) Neut # (Auto) Lymph # (Auto) Dickens # (Auto) Eos # (Auto) Baso # (Auto) Puncture Site pCO2 pO2 HCO3 ABG pH ABG Total CO2 ABG O2 Saturation ABG Base Excess ABG Hemoglobin ABG Carboxyhemoglobin POC ABG HHb (Measured) ABG Methemoglobin Scout Test A-a O2 Difference Respiratory Index Hgb O2 Saturation Vent Mode Mechanical Rate FiO2 Tidal Volume PEEP Sodium 142 Potassium 4.0 Chloride 107 Carbon Dioxide 25 Anion Gap 14 BUN 24 H Creatinine 0.7 Est GFR ( Amer) > 60 Est GFR (Non-Af Amer) > 60 POC Glucose (mg/dL) 288 H Random Glucose 298 H Calcium 9.2 Phosphorus 2.4 L Magnesium 1.8 Total Bilirubin 0.3 AST 24 ALT 65 H D Alkaline Phosphatase 81 Total Protein 5.9 L Albumin 3.0 L Globulin 2.9 Albumin/Globulin Ratio 1.1 Random Vancomycin 8.3 Fingerstick Blood Sugar Results: 247 Review of Systems - Review of Systems Systems not reviewed;Unavailable: Acuity of Condition Critical Care Progress Note - Nutrition Nutrition: Nutrition Category Date Time Status NPO Diet [DIET] Diets 05/09/18 Breakfast Active Assessment/Plan - Assessment and Plan (Free Text) Assessment: This is an 87 year old female with past medical history HTN, CHF, CAD, COPD, and DM2 who presented with altered mental status and was found to be septic and hyperglycemic. Admitted to ICU for sepsis/septic shock requiring pressors and s/p intubation. Currently off pressors and sedation, awake and alert, following simple commands, pending CPAP/PS trial to determine if can be extubated. Plan: Neuro: - intubated but off sedation, waking up and following simple commands - Anoxic brain injury, pending CT head and EEG when stable - maintain normothermia Cardio: - maintaining MAP > 65 - Risk of CAD/Type 2 HI - cardizem 30 mg PO QID for tachycardia - not a candidate for anticoag due to GI bleed Pulm: - Hypoxic respiratory failure s/p intubation - cpap trial today tolerating well at 5/15 - Extubated at 1230 - On BIPAP GI: -Dr Dye recs: f/u diarrhea. Still with loose stools. 200 cc. No RB, melena, fever, chills, hematuria, hemoptysis, SZ, tremor -acute blood loss anemia 2/2 GI bleed, now stable - remains on protonix drip - Dr Black consulted, appreciate recs; GI bleed stabilized, no active bleeding, no indication for surgery at this time Endo: - metabolic acidosis resolved Renal: - Acute Renal Failure resolving - monitor and replete electrolytes as needed ID: - Septic shock on arrival - Currently on Cipro and Vanco, for abx as per ID Dispo: ICU, pending repeat trial for possible extubation Ppx: Protonix drip covers for GI, SCDs for DVT (avoid AC given GI bleed) Patient seen, reviewed, and discussed with attending, Dr. Monica Hwang PGY1 <Travon Anderson - Last Filed: 05/17/18 16:40> CCU Objective - Vital Signs / Intake & Output Vital Signs (Last 4 hours): Vital Signs Temp Pulse Resp BP Pulse Ox 05/17/18 16:00 99.1 F 88 35 H 151/72 H 100 05/17/18 15:00 92 H 27 H 144/68 100 05/17/18 14:04 96 H 28 H 155/66 H 100 05/17/18 14:03 97 H 29 H 100 05/17/18 14:00 96 H 20 100 05/17/18 13:24 96 H 05/17/18 13:00 96 H 39 H 108/66 99 05/17/18 12:46 92 H Intake and Output (Last 8hrs): Intake & Output 05/17/18 05/17/18 05/17/18 06:59 14:59 22:59 Intake Total 520 360 0 Output Total 350 Balance 170 360 0 Weight 103 lb Intake: Intake, IV Amount 100 Right medial Port Y site 100 Tube Feeding 420 360 0 Output: Urine 350 Urine, Voided 350 - Medications Active Medications: Active Medications Generic Name Dose Route Start Last Admin Trade Name Freq PRN Reason Stop Dose Admin Diltiazem HCl 30 mg 05/12/18 10:00 05/17/18 14:10 Cardizem PO 30 mg QID JUDY Administration Ciprofloxacin 100 mls @ 67 mls/hr 05/09/18 17:00 05/17/18 16:27 Cipro 200mg/100ml D5w IVPB 67 mls/hr Q12H JUDY Administration Protocol Insulin Aspart 0 unit 05/12/18 00:00 05/17/18 12:31 Novolog SC 6 units Q6 JUDY Administration Protocol Metoprolol Tartrate 50 mg 05/12/18 10:00 05/17/18 09:35 Lopressor PO 50 mg BID JUDY Administration Neomycin/Polymyxin/Bacitracin 0 gm 05/10/18 10:00 05/17/18 09:36 Neosporin Triple Antibiotic Oint TOP 1 applic BID JUDY Administration Nystatin 1 applic 05/09/18 18:00 05/17/18 09:35 Nystop Topical Powder TOP 1 applic BID JUDY Administration Pantoprazole Sodium 40 mg 05/13/18 07:45 05/17/18 08:48 Protonix Inj IVP 40 mg Q12H JUDY Administration Rosuvastatin Calcium 10 mg 05/07/18 22:00 05/16/18 22:01 Crestor PO 10 mg HS JUDY Administration - Patient Studies Lab Studies: Microbiology Studies 05/15/18 Unknown Gram Stain - Final Sputum Lab Studies 05/17/18 05/17/18 05/17/18 Range/Units 11:46 06:46 06:46 WBC (4.8-10.8) K/uL RBC (3.80-5.20) Mil/uL Hgb (11.0-16.0) g/dL Hct (34.0-47.0) % MCV (81.0-99.0) fL MCH (27.0-31.0) pg MCHC (33.0-37.0) g/dL RDW (11.5-14.5) % Plt Count (130-400) K/uL MPV (7.2-11.7) fL Neut % (Auto) (50.0-75.0) % Lymph % (Auto) (20.0-40.0) % Dickens % (Auto) (0.0-10.0) % Eos % (Auto) (0.0-4.0) % Baso % (Auto) (0.0-2.0) % Neut # (Auto) (1.8-7.0) K/uL Lymph # (Auto) (1.0-4.3) K/uL Dickens # (Auto) (0.0-0.8) K/uL Eos # (Auto) (0.0-0.7) K/uL Baso # (Auto) (0.0-0.2) K/uL Puncture Site pCO2 (35-45) mm/Hg pO2 (80-100) mm/Hg HCO3 (21-28) mmol/L ABG pH (7.35-7.45) ABG Total CO2 (22-28) mmol/L ABG O2 Saturation (95-98) % ABG Base Excess (-2.0-3.0) mmol/L ABG Hemoglobin (11.7-17.4) g/dL ABG Carboxyhemoglobin (0.5-1.5) % POC ABG HHb (Measured) (0.0-5.0) % ABG Methemoglobin (0.0-3.0) % Scout Test A-a O2 Difference mm/Hg Respiratory Index Hgb O2 Saturation (95.0-98.0) % Vent Mode Mechanical Rate FiO2 % Tidal Volume PEEP Sodium 142 (132-148) mmol/L Potassium 4.0 (3.6-5.2) mmol/L Chloride 107 (98-107) mmol/L Carbon Dioxide 25 (22-30) mmol/L Anion Gap 14 (10-20) BUN 24 H (7-17) mg/dL Creatinine 0.7 (0.7-1.2) mg/dL Est GFR ( Amer) > 60 Est GFR (Non-Af Amer) > 60 POC Glucose (mg/dL) 288 H (65-110) mg/dL Random Glucose 298 H (65-105) mg/dL Calcium 9.2 (8.6-10.4) mg/dl Phosphorus 2.4 L (2.5-4.5) mg/dL Magnesium 1.8 (1.6-2.3) mg/dL Total Bilirubin 0.3 (0.2-1.3) mg/dL AST 24 (14-36) U/L ALT 65 H D (9-52) U/L Alkaline Phosphatase 81 (38-126) U/L Total Protein 5.9 L (6.3-8.3) g/dL Albumin 3.0 L (3.5-5.0) g/dL Globulin 2.9 (2.2-3.9) gm/dL Albumin/Globulin Ratio 1.1 (1.0-2.1) Random Vancomycin 8.3 ug/mL 05/17/18 05/17/18 05/17/18 Range/Units 06:46 06:05 05:07 WBC 11.7 H (4.8-10.8) K/uL RBC 3.41 L (3.80-5.20) Mil/uL Hgb 10.4 L (11.0-16.0) g/dL Hct 30.8 L (34.0-47.0) % MCV 90.3 (81.0-99.0) fL MCH 30.5 (27.0-31.0) pg MCHC 33.8 (33.0-37.0) g/dL RDW 18.1 H (11.5-14.5) % Plt Count 319 (130-400) K/uL MPV 8.3 (7.2-11.7) fL Neut % (Auto) 76.8 H (50.0-75.0) % Lymph % (Auto) 10.6 L (20.0-40.0) % Dickens % (Auto) 9.0 (0.0-10.0) % Eos % (Auto) 3.1 (0.0-4.0) % Baso % (Auto) 0.5 (0.0-2.0) % Neut # (Auto) 9.0 H (1.8-7.0) K/uL Lymph # (Auto) 1.2 (1.0-4.3) K/uL Dickens # (Auto) 1.1 H (0.0-0.8) K/uL Eos # (Auto) 0.4 (0.0-0.7) K/uL Baso # (Auto) 0.1 (0.0-0.2) K/uL Puncture Site L rad pCO2 32 L (35-45) mm/Hg pO2 107 H (80-100) mm/Hg HCO3 27.6 (21-28) mmol/L ABG pH 7.52 H (7.35-7.45) ABG Total CO2 27.1 (22-28) mmol/L ABG O2 Saturation 98.7 H (95-98) % ABG Base Excess 3.4 H (-2.0-3.0) mmol/L ABG Hemoglobin 10.2 L (11.7-17.4) g/dL ABG Carboxyhemoglobin 1.7 H (0.5-1.5) % POC ABG HHb (Measured) 1.3 (0.0-5.0) % ABG Methemoglobin 1.4 (0.0-3.0) % Scout Test Pos A-a O2 Difference 67.0 mm/Hg Respiratory Index 0.6 Hgb O2 Saturation 95.7 (95.0-98.0) % Vent Mode Prvc Mechanical Rate 16 FiO2 30.0 % Tidal Volume 400 PEEP 5 Sodium (132-148) mmol/L Potassium (3.6-5.2) mmol/L Chloride (98-107) mmol/L Carbon Dioxide (22-30) mmol/L Anion Gap (10-20) BUN (7-17) mg/dL Creatinine (0.7-1.2) mg/dL Est GFR ( Amer) Est GFR (Non-Af Amer) POC Glucose (mg/dL) 247 H (65-110) mg/dL Random Glucose (65-105) mg/dL Calcium (8.6-10.4) mg/dl Phosphorus (2.5-4.5) mg/dL Magnesium (1.6-2.3) mg/dL Total Bilirubin (0.2-1.3) mg/dL AST (14-36) U/L ALT (9-52) U/L Alkaline Phosphatase (38-126) U/L Total Protein (6.3-8.3) g/dL Albumin (3.5-5.0) g/dL Globulin (2.2-3.9) gm/dL Albumin/Globulin Ratio (1.0-2.1) Random Vancomycin ug/mL 05/17/18 05/16/18 05/16/18 Range/Units 00:24 17:40 11:30 WBC (4.8-10.8) K/uL RBC (3.80-5.20) Mil/uL Hgb (11.0-16.0) g/dL Hct (34.0-47.0) % MCV (81.0-99.0) fL MCH (27.0-31.0) pg MCHC (33.0-37.0) g/dL RDW (11.5-14.5) % Plt Count (130-400) K/uL MPV (7.2-11.7) fL Neut % (Auto) (50.0-75.0) % Lymph % (Auto) (20.0-40.0) % Dickens % (Auto) (0.0-10.0) % Eos % (Auto) (0.0-4.0) % Baso % (Auto) (0.0-2.0) % Neut # (Auto) (1.8-7.0) K/uL Lymph # (Auto) (1.0-4.3) K/uL Dickens # (Auto) (0.0-0.8) K/uL Eos # (Auto) (0.0-0.7) K/uL Baso # (Auto) (0.0-0.2) K/uL Puncture Site pCO2 (35-45) mm/Hg pO2 (80-100) mm/Hg HCO3 (21-28) mmol/L ABG pH (7.35-7.45) ABG Total CO2 (22-28) mmol/L ABG O2 Saturation (95-98) % ABG Base Excess (-2.0-3.0) mmol/L ABG Hemoglobin (11.7-17.4) g/dL ABG Carboxyhemoglobin (0.5-1.5) % POC ABG HHb (Measured) (0.0-5.0) % ABG Methemoglobin (0.0-3.0) % Scout Test A-a O2 Difference mm/Hg Respiratory Index Hgb O2 Saturation (95.0-98.0) % Vent Mode Mechanical Rate FiO2 % Tidal Volume PEEP Sodium (132-148) mmol/L Potassium (3.6-5.2) mmol/L Chloride (98-107) mmol/L Carbon Dioxide (22-30) mmol/L Anion Gap (10-20) BUN (7-17) mg/dL Creatinine (0.7-1.2) mg/dL Est GFR ( Amer) Est GFR (Non-Af Amer) POC Glucose (mg/dL) 242 H 304 H 271 H (65-110) mg/dL Random Glucose (65-105) mg/dL Calcium (8.6-10.4) mg/dl Phosphorus (2.5-4.5) mg/dL Magnesium (1.6-2.3) mg/dL Total Bilirubin (0.2-1.3) mg/dL AST (14-36) U/L ALT (9-52) U/L Alkaline Phosphatase (38-126) U/L Total Protein (6.3-8.3) g/dL Albumin (3.5-5.0) g/dL Globulin (2.2-3.9) gm/dL Albumin/Globulin Ratio (1.0-2.1) Random Vancomycin ug/mL Laboratory Results - last 24 hr 05/16/18 05/16/18 05/17/18 11:30 17:40 00:24 WBC RBC Hgb Hct MCV MCH MCHC RDW Plt Count MPV Neut % (Auto) Lymph % (Auto) Dickens % (Auto) Eos % (Auto) Baso % (Auto) Neut # (Auto) Lymph # (Auto) Dickens # (Auto) Eos # (Auto) Baso # (Auto) Puncture Site pCO2 pO2 HCO3 ABG pH ABG Total CO2 ABG O2 Saturation ABG Base Excess ABG Hemoglobin ABG Carboxyhemoglobin POC ABG HHb (Measured) ABG Methemoglobin Scout Test A-a O2 Difference Respiratory Index Hgb O2 Saturation Vent Mode Mechanical Rate FiO2 Tidal Volume PEEP Sodium Potassium Chloride Carbon Dioxide Anion Gap BUN Creatinine Est GFR ( Amer) Est GFR (Non-Af Amer) POC Glucose (mg/dL) 271 H 304 H 242 H Random Glucose Calcium Phosphorus Magnesium Total Bilirubin AST ALT Alkaline Phosphatase Total Protein Albumin Globulin Albumin/Globulin Ratio Random Vancomycin 05/17/18 05/17/18 05/17/18 05:07 06:05 06:46 WBC 11.7 H RBC 3.41 L Hgb 10.4 L Hct 30.8 L MCV 90.3 MCH 30.5 MCHC 33.8 RDW 18.1 H Plt Count 319 MPV 8.3 Neut % (Auto) 76.8 H Lymph % (Auto) 10.6 L Dickens % (Auto) 9.0 Eos % (Auto) 3.1 Baso % (Auto) 0.5 Neut # (Auto) 9.0 H Lymph # (Auto) 1.2 Dickens # (Auto) 1.1 H Eos # (Auto) 0.4 Baso # (Auto) 0.1 Puncture Site L rad pCO2 32 L pO2 107 H HCO3 27.6 ABG pH 7.52 H ABG Total CO2 27.1 ABG O2 Saturation 98.7 H ABG Base Excess 3.4 H ABG Hemoglobin 10.2 L ABG Carboxyhemoglobin 1.7 H POC ABG HHb (Measured) 1.3 ABG Methemoglobin 1.4 Scout Test Pos A-a O2 Difference 67.0 Respiratory Index 0.6 Hgb O2 Saturation 95.7 Vent Mode Prvc Mechanical Rate 16 FiO2 30.0 Tidal Volume 400 PEEP 5 Sodium Potassium Chloride Carbon Dioxide Anion Gap BUN Creatinine Est GFR ( Amer) Est GFR (Non-Af Amer) POC Glucose (mg/dL) 247 H Random Glucose Calcium Phosphorus Magnesium Total Bilirubin AST ALT Alkaline Phosphatase Total Protein Albumin Globulin Albumin/Globulin Ratio Random Vancomycin 05/17/18 05/17/18 05/17/18 06:46 06:46 11:46 WBC RBC Hgb Hct MCV MCH MCHC RDW Plt Count MPV Neut % (Auto) Lymph % (Auto) Dickens % (Auto) Eos % (Auto) Baso % (Auto) Neut # (Auto) Lymph # (Auto) Dickens # (Auto) Eos # (Auto) Baso # (Auto) Puncture Site pCO2 pO2 HCO3 ABG pH ABG Total CO2 ABG O2 Saturation ABG Base Excess ABG Hemoglobin ABG Carboxyhemoglobin POC ABG HHb (Measured) ABG Methemoglobin Scout Test A-a O2 Difference Respiratory Index Hgb O2 Saturation Vent Mode Mechanical Rate FiO2 Tidal Volume PEEP Sodium 142 Potassium 4.0 Chloride 107 Carbon Dioxide 25 Anion Gap 14 BUN 24 H Creatinine 0.7 Est GFR ( Amer) > 60 Est GFR (Non-Af Amer) > 60 POC Glucose (mg/dL) 288 H Random Glucose 298 H Calcium 9.2 Phosphorus 2.4 L Magnesium 1.8 Total Bilirubin 0.3 AST 24 ALT 65 H D Alkaline Phosphatase 81 Total Protein 5.9 L Albumin 3.0 L Globulin 2.9 Albumin/Globulin Ratio 1.1 Random Vancomycin 8.3 Critical Care Progress Note - Nutrition Nutrition: Nutrition Category Date Time Status NPO Diet [DIET] Diets 05/09/18 Breakfast Active Attending/Attestation - Attestation I have personally seen and examined this patient.: Yes I have fully participated in the care of the patient.: Yes I have reviewed all pertinent clinical information: Yes Notes (Text): 05/17/18 16:38 I have seen and examined the patient. Medical records, lab studies, and imaging were reviewed by me and a management plan was formulated on multidisciplinary rounds with resident Dr. Hwang. I agree with their documented assessment and plan. Patient tolerating PS trilas, will extbated to BIPAP. Critical Care Time 35 minutes. Multi-disciplinary rounds were performed with house staff, nursing, speech therapy, respiratory therapy, pharmacy and nutrition with integrated input from the primary team/attending and other consulting services. The documented time is cumulative and includes review of patient data/exams/labs/chart review and examination of the patient on rounds and throughout the day; time is exclusive of any procedures or teaching time.
[2018-05-17 19:37] LABS: ARTERIAL BLOOD GAS HCO3 28.4 mmol/L (21-28); ARTERIAL BLOOD GAS O2 SAT 99.1 % (95-98); ARTERIAL BLOOD GAS PCO2 43 mm/Hg (35-45); ARTERIAL BLOOD GAS PH 7.44 (7.35-7.45); ARTERIAL BLOOD GAS PO2 123 mm/Hg (80-100); ARTERIAL BLOOD GAS TCO2 30.5 mmol/L (22-28)
--- NOTE | 2018-05-17 20:15 | CP.PCM.PN ---
Subjective - Date & Time of Evaluation Date of Evaluation: 05/17/18 Time of Evaluation: 15:45 - Subjective Subjective: dictated Objective - Vital Signs/Intake and Output Vital Signs (last 24 hours): Temp Pulse Resp BP Pulse Ox 96.7 F L 80 31 H 136/62 100 05/17/18 20:00 05/17/18 20:00 05/17/18 20:00 05/17/18 20:00 05/17/18 20:00 Intake and Output: 05/17/18 05/18/18 18:59 06:59 Intake Total 420 60 Balance 420 60 - Medications Medications: Current Medications Diltiazem HCl (Cardizem) 30 mg PO QID [facility] Last Admin: 05/17/18 17:46 Dose: 30 mg Ciprofloxacin (Cipro 200mg/100ml D5w) 100 mls @ 67 mls/hr IVPB Q12H [facility]; Protocol Last Admin: 05/17/18 16:27 Dose: 67 mls/hr Insulin Aspart (Novolog) 0 unit SC Q6 [facility]; Protocol Last Admin: 05/17/18 17:46 Dose: 6 units Metoprolol Tartrate (Lopressor) 50 mg PO BID [facility] Last Admin: 05/17/18 17:46 Dose: 50 mg Neomycin/Polymyxin/Bacitracin (Neosporin Triple Antibiotic Oint) 0 gm TOP BID [facility] Last Admin: 05/17/18 17:47 Dose: 1 applic Nystatin (Nystop Topical Powder) 1 applic TOP BID [facility] Last Admin: 05/17/18 17:00 Dose: 1 applic Pantoprazole Sodium (Protonix Inj) 40 mg IVP Q12H [facility] Last Admin: 05/17/18 08:48 Dose: 40 mg Rosuvastatin Calcium (Crestor) 10 mg PO HS [facility] Last Admin: 05/16/18 22:01 Dose: 10 mg - Labs Labs: 05/17/18 06:46 05/17/18 06:46 PT 18.4 SECONDS (9.7-12.2) H 05/09/18 09:10 INR 1.7 05/09/18 09:10 APTT 25 SECONDS (21-34) 05/10/18 23:10 Assessment and Plan (1) Respiratory failure Status: Acute (2) Infection of gastrostomy site Status: Acute (3) Ischemic hepatitis Status: Acute (4) Anemia Status: Acute
--- NOTE | 2018-05-17 23:34 | PN ---
DATE: 05/17/2018 SUBJECTIVE: The patient was on BiPAP when I saw her. PHYSICAL EXAMINATION: VITAL SIGNS: T-max is 99.1, heart rate of 92, blood pressure 152/72, respirations are 26 to 27. GENERAL: She is awake and alert. NECK: Supple. LUNGS: Occasional rhonchi. HEART: S1 and S2 are regular. ABDOMEN: Soft. Nontender. No guarding. No rigidity. EXTREMITIES: Mild edema. LABORATORY DATA: White count is 11.7, hemoglobin 10.4, hematocrit is 30.8, and platelet count is 319. ASSESSMENT AND PLAN: She is on Cipro and Clostridium difficile is negative on 05/15/2018. She had MAG IgM antibody, which is less than 1:1500. Her chest x-ray was done. Chest x-ray on 05/17/2018 showing lines and tubes are stable. The patient intubated and it says [id number] venous congestion, right hilar prominence, biapical pleural thickening, no significant pleural effusion, no pneumothorax. There is [id number] vascular congestion. So at this time, I am holding back on vancomycin because vancomycin will give her another 250 mL of fluids. Cultures did not reveal any methicillin-resistant Staphylococcus aureus, and sputum culture from 05/15/2018 is still pending. We will follow tomorrow. The patient is doing and to continue Cipro as ordered. The patient had respiratory failure, history of gastric polyp, hemorrhoids with respiratory failure recently and now. Val Jones MD
[2018-05-18] MEDS: Ciprofloxacin 200mg/100ml D5W 100 ML IVPB SCH ×2 (04:29→19:57)
[2018-05-18] MEDS: (Novolog) Insulin Aspart, Recombinant 100 u/ml 10 ml vial SC SCH ×3 (05:52→19:29)
[2018-05-18 06:41] LABS: BASO # 0.1 K/uL (0.0-0.2); BASO % 1.2 % (0.0-2.0); EOS # 0.3 K/uL (0.0-0.7); EOS % 2.2 % (0.0-4.0); HEMOGLOBIN 10.4 g/dL (11.0-16.0); LYMPH # 1.3 K/uL (1.0-4.3); LYMPH % 11.5 % (20.0-40.0); MEAN CELL VOLUME 90.4 fL (81.0-99.0); MEAN CORPUSCULAR HEMOGLOBIN 30.6 pg (27.0-31.0); MEAN CORPUSCULAR HGB CONC 33.9 g/dL (33.0-37.0); MEAN PLATELET VOLUME 8.5 fL (7.2-11.7); MONO # 0.9 K/uL (0.0-0.8); MONO % 7.4 % (0.0-10.0); NEUT % 77.7 % (50.0-75.0); NRBC % 0.1 % (0.0-2.0); PLATELET COUNT 382 K/uL (130-400); RED CELL DISTRIBUTION WIDTH 17.3 % (11.5-14.5); WHITE BLOOD COUNT 11.5 K/uL (4.8-10.8)
[2018-05-18 07:03] LABS: ALB/GLOB RATIO 1.1 (1.0-2.1); ALBUMIN 3.1 g/dL (3.5-5.0); ALT/SGPT 57 U/L (9-52); AST/SGOT 59 U/L (14-36); BLOOD UREA NITROGEN 25 mg/dL (7-17); CALCIUM 9.3 mg/dl (8.6-10.4); GFR NON-AFRICAN AMERICAN > 60
--- NOTE | 2018-05-18 07:34 | CP.PCM.PN ---
Subjective - Date & Time of Evaluation Date of Evaluation: 05/17/18 Time of Evaluation: 18:20 - Subjective Subjective: Patient seen and evaluated S/P Extubation on BiPAP No cardiac events Will continue current therapy Objective - Vital Signs/Intake and Output Vital Signs (last 24 hours): Temp Pulse Resp BP Pulse Ox 98.7 F 104 H 29 H 162/85 H 100 05/18/18 04:00 05/18/18 07:00 05/18/18 07:00 05/18/18 07:00 05/18/18 07:00 Intake and Output: 05/18/18 05/18/18 06:59 18:59 Intake Total 920 60 Output Total 400 Balance 520 60 - Medications Medications: Current Medications Diltiazem HCl (Cardizem) 30 mg PO QID [facility] Last Admin: 05/17/18 21:19 Dose: 30 mg Ciprofloxacin (Cipro 200mg/100ml D5w) 100 mls @ 67 mls/hr IVPB Q12H [facility]; Protocol Last Admin: 05/18/18 04:29 Dose: 67 mls/hr Insulin Aspart (Novolog) 0 unit SC Q6 [facility]; Protocol Last Admin: 05/18/18 05:52 Dose: 6 units Metoprolol Tartrate (Lopressor) 50 mg PO BID [facility] Last Admin: 05/17/18 17:46 Dose: 50 mg Neomycin/Polymyxin/Bacitracin (Neosporin Triple Antibiotic Oint) 0 gm TOP BID [facility] Last Admin: 05/17/18 17:47 Dose: 1 applic Nystatin (Nystop Topical Powder) 1 applic TOP BID [facility] Last Admin: 05/17/18 17:00 Dose: 1 applic Pantoprazole Sodium (Protonix Inj) 40 mg IVP Q12H [facility] Last Admin: 05/17/18 20:27 Dose: 40 mg Rosuvastatin Calcium (Crestor) 10 mg PO HS [facility] Last Admin: 05/17/18 21:19 Dose: 10 mg - Labs Labs: 05/18/18 06:33 05/18/18 06:33 PT 18.4 SECONDS (9.7-12.2) H 05/09/18 09:10 INR 1.7 05/09/18 09:10 APTT 25 SECONDS (21-34) 05/10/18 23:10
[2018-05-18 08:30] LABS: BANDS 7 % (0-2); EOSINOPHIL 2 % (0-4); LYMPHOCYTE 11 % (20-40); METAMYELOCYTE 1 % (0-0); MONOCYTE 3 % (0-10); NEUTROPHIL 76 % (50-75); TOTAL CELLS COUNTED 100
[2018-05-18 08:31] LABS: ANISOCYTOSIS SLIGHT; HYPOCHROMIC SLIGHT; LARGE PLATELETS PRESENT; PLATELET ESTIMATE NORMAL (NORMAL); POLYCHROMIC SLIGHT; TOXIC GRANULATION PRESENT
[2018-05-18 08:32] LABS: OVALOCYTES SLIGHT; POIKILOCYTOSIS SLIGHT
[2018-05-18 08:33] LABS: TEARDROP CELLS SLIGHT
[2018-05-18] MEDS: (Lantus) Insulin Glargine, Recombinant SC SCH (10:30)
[2018-05-18] MEDS: Bacitracin/Neomycin/Polymyxin Oint(30GM) TOP SCH ×2 (10:52→18:32)
--- NOTE | 2018-05-18 12:14 | CP.PCM.PN ---
Subjective - Date & Time of Evaluation Date of Evaluation: 05/18/18 Time of Evaluation: 12:10 - Subjective Subjective: COVERING DR JENNINGS No bleeding or diarrhea reported. Not verbally responsive on CPAP mask. Objective - Vital Signs/Intake and Output Vital Signs (last 24 hours): Temp Pulse Resp BP Pulse Ox 98.1 F 88 29 H 138/62 100 05/18/18 08:00 05/18/18 10:34 05/18/18 07:00 05/18/18 10:00 05/18/18 07:00 Intake and Output: 05/18/18 05/18/18 06:59 18:59 Intake Total 920 60 Output Total 400 Balance 520 60 - Medications Medications: Current Medications Diltiazem HCl (Cardizem) 30 mg PO QID [facility] Last Admin: 05/18/18 10:51 Dose: 30 mg Ciprofloxacin (Cipro 200mg/100ml D5w) 100 mls @ 67 mls/hr IVPB Q12H [facility]; Protocol Last Admin: 05/18/18 04:29 Dose: 67 mls/hr Insulin Aspart (Novolog) 0 unit SC Q6 [facility]; Protocol Last Admin: 05/18/18 05:52 Dose: 6 units Insulin Glargine (Lantus) 10 unit SC DAILY [facility] Last Admin: 05/18/18 10:30 Dose: 10 units Metoprolol Tartrate (Lopressor) 50 mg PO BID [facility] Last Admin: 05/18/18 10:51 Dose: 50 mg Neomycin/Polymyxin/Bacitracin (Neosporin Triple Antibiotic Oint) 0 gm TOP BID [facility] Last Admin: 05/18/18 10:52 Dose: 1 applic Nystatin (Nystop Topical Powder) 1 applic TOP BID [facility] Last Admin: 05/18/18 10:52 Dose: 1 applic Pantoprazole Sodium (Protonix Inj) 40 mg IVP Q12H [facility] Last Admin: 05/18/18 08:00 Dose: 40 mg - Labs Labs: 05/18/18 06:33 05/18/18 06:33 PT 18.4 SECONDS (9.7-12.2) H 05/09/18 09:10 INR 1.7 05/09/18 09:10 APTT 25 SECONDS (21-34) 05/10/18 23:10 - Constitutional Appears: No Acute Distress - Respiratory Exam Respiratory Exam: Decreased Breath Sounds - Cardiovascular Exam Cardiovascular Exam: REGULAR RHYTHM - GI/Abdominal Exam GI & Abdominal Exam: Soft, Normal Bowel Sounds. absent: Tenderness Additional comments: GT intact - Extremities Exam Extremities Exam: Pedal Edema Assessment and Plan (1) Duodenal ulcer with hemorrhage Assessment & Plan: No evidence of further bleeding. On PPI. Status: Acute (2) Diarrhea Assessment & Plan: Diarrhea appears to be better. C diff negative. Related to feedings? Observe for now. Status: Acute
--- NOTE | 2018-05-18 13:31 | RAD ---
Date of service: 05/18/2018 HISTORY: eval congestion COMPARISON: 05/17/2018 FINDINGS: LUNGS: Right central venous catheter with tip extending to the right SVC. Interval removal of an endotracheal tube. Mild venous congestion. Patchy increased markings at the left lung base. Lucency under the left hemidiaphragm may represent gastric bubble. Clinical correlation. Right hilar prominence. Biapical pleural thickening with upper lobe granulomatous changes. PLEURA: No significant pleural effusion identified, no pneumothorax apparent. CARDIOVASCULAR: Aortic atherosclerotic calcification present. Left-sided pacemaker. Status post median sternotomy and CABG. OSSEOUS STRUCTURES: Degenerative changes in the spine and shoulders. VISUALIZED UPPER ABDOMEN: Normal. OTHER FINDINGS: None. IMPRESSION: Right central venous catheter with tip extending to the right SVC. Interval removal of an endotracheal tube. Mild venous congestion. Patchy increased markings at the left lung base. Lucency under the left hemidiaphragm may represent gastric bubble. Clinical correlation. Right hilar prominence. Biapical pleural thickening with upper lobe granulomatous changes.
--- NOTE | 2018-05-18 14:24 | CP.PCM.PN ---
Subjective - Date & Time of Evaluation Date of Evaluation: 05/18/18 Time of Evaluation: 14:21 - Subjective Subjective: Patient tolerating nasal canula off bi-pap, tolerating peg tube feeds Objective - Vital Signs/Intake and Output Vital Signs (last 24 hours): Temp Pulse Resp BP Pulse Ox 98.1 F 88 29 H 138/62 100 05/18/18 08:00 05/18/18 10:34 05/18/18 07:00 05/18/18 10:00 05/18/18 07:00 Intake and Output: 05/18/18 05/18/18 06:59 18:59 Intake Total 920 60 Output Total 400 Balance 520 60 - Medications Medications: Current Medications Diltiazem HCl (Cardizem) 30 mg PO QID [facility] Last Admin: 05/18/18 10:51 Dose: 30 mg Ciprofloxacin (Cipro 200mg/100ml D5w) 100 mls @ 67 mls/hr IVPB Q12H [facility]; Protocol Last Admin: 05/18/18 04:29 Dose: 67 mls/hr Insulin Aspart (Novolog) 0 unit SC Q6 [facility]; Protocol Last Admin: 05/18/18 05:52 Dose: 6 units Insulin Glargine (Lantus) 10 unit SC DAILY [facility] Last Admin: 05/18/18 10:30 Dose: 10 units Metoprolol Tartrate (Lopressor) 50 mg PO BID [facility] Last Admin: 05/18/18 10:51 Dose: 50 mg Neomycin/Polymyxin/Bacitracin (Neosporin Triple Antibiotic Oint) 0 gm TOP BID [facility] Last Admin: 05/18/18 10:52 Dose: 1 applic Nystatin (Nystop Topical Powder) 1 applic TOP BID [facility] Last Admin: 05/18/18 10:52 Dose: 1 applic Pantoprazole Sodium (Protonix Inj) 40 mg IVP Q12H [facility] Last Admin: 05/18/18 08:00 Dose: 40 mg - Labs Labs: 05/18/18 06:33 05/18/18 06:33 PT 18.4 SECONDS (9.7-12.2) H 05/09/18 09:10 INR 1.7 05/09/18 09:10 APTT 25 SECONDS (21-34) 05/10/18 23:10 - Head Exam Head Exam: ATRAUMATIC, NORMAL INSPECTION, NORMOCEPHALIC - ENT Exam ENT Exam: Mucous Membranes Moist - Respiratory Exam Respiratory Exam: Clear to Ausculation Bilateral, NORMAL BREATHING PATTERN - Cardiovascular Exam Cardiovascular Exam: REGULAR RHYTHM, +S1, +S2, Murmur - GI/Abdominal Exam GI & Abdominal Exam: Normal Bowel Sounds - Neurological Exam Neurological Exam: Alert, Awake Assessment and Plan - Assessment and Plan (Free Text) Assessment: 87 year old female with past medical history HTN, CHF, CAD, COPD, and DM2 who presented with altered mental status and was found to be septic and hyperglycemic. Admitted to ICU for sepsis/septic shock requiring pressors and s/p intubation. Currently off pressors and sedation, awake and alert, following simple commands, extubated and currently on bi-pap AMS: resolving, needs reorientation at times -respiratory failure: continue bi-pap PRN, titrate down FiO2, currently on nasal canula -A-fib: continue cardizem GI:tolerating peg tube feeds - metabolic acidosis resolved -complete abx regimen -continue dvt/pud ppx CXR reveals congestion: lasix 20 mg now -off bi-pap -Patient remains hemodynamically stable
[2018-05-18 18:08] LABS: ABG ALLEN TEST POS; ARTERIAL BLOOD GAS HCO3 33.2 mmol/L (21-28); ARTERIAL BLOOD GAS O2 SAT 96.4 % (95-98); ARTERIAL BLOOD GAS PCO2 40 mm/Hg (35-45); ARTERIAL BLOOD GAS PH 7.54 (7.35-7.45); ARTERIAL BLOOD GAS PO2 63 mm/Hg (80-100); ARTERIAL BLOOD GAS TCO2 35.4 mmol/L (22-28)
[2018-05-19] MEDS: (Novolog) Insulin Aspart, Recombinant 100 u/ml 10 ml vial SC SCH ×5 (00:29→23:56)
[2018-05-19] MEDS: Ciprofloxacin 200mg/100ml D5W 100 ML IVPB SCH (04:32)
[2018-05-19 06:24] LABS: BASO # 0.1 K/uL (0.0-0.2); BASO % 0.5 % (0.0-2.0); EOS # 0.2 K/uL (0.0-0.7); EOS % 1.8 % (0.0-4.0); HEMOGLOBIN 10.3 g/dL (11.0-16.0); LYMPH # 1.2 K/uL (1.0-4.3); MEAN CELL VOLUME 89.2 fL (81.0-99.0); MEAN CORPUSCULAR HEMOGLOBIN 29.6 pg (27.0-31.0); MEAN CORPUSCULAR HGB CONC 33.2 g/dL (33.0-37.0); MEAN PLATELET VOLUME 7.9 fL (7.2-11.7); MONO % 8.6 % (0.0-10.0); NEUT # 8.7 K/uL (1.8-7.0); NEUT % 78.1 % (50.0-75.0); RBC 3.49 Mil/uL (3.80-5.20); WHITE BLOOD COUNT 11.1 K/uL (4.8-10.8)
[2018-05-19 06:44] LABS: ALBUMIN 3.2 g/dL (3.5-5.0); ALT/SGPT 55 U/L (9-52); AST/SGOT 44 U/L (14-36); BLOOD UREA NITROGEN 22 mg/dL (7-17); CALCIUM 9.6 mg/dl (8.6-10.4); GFR NON-AFRICAN AMERICAN > 60
[2018-05-19] MEDS: (Lantus) Insulin Glargine, Recombinant SC SCH (09:14)
[2018-05-19] MEDS: Bacitracin/Neomycin/Polymyxin Oint(30GM) TOP SCH ×2 (09:16→18:30)
--- NOTE | 2018-05-19 11:23 | CP.PCM.PN ---
Subjective - Date & Time of Evaluation Date of Evaluation: 05/19/18 Time of Evaluation: 11:21 - Subjective Subjective: COVERING DR ANDRADE/ERNESTO No bleeding or melena, tolerating feedings via GT Objective - Vital Signs/Intake and Output Vital Signs (last 24 hours): Temp Pulse Resp BP Pulse Ox 98.4 F 99 H 17 125/56 L 100 05/19/18 08:00 05/19/18 09:00 05/19/18 09:00 05/19/18 09:00 05/19/18 09:00 Intake and Output: 05/19/18 05/19/18 06:59 18:59 Intake Total 490 120 Output Total 350 Balance 140 120 - Medications Medications: Current Medications Albuterol/Ipratropium (Duoneb 3 Mg/0.5 Mg (3 Ml) Ud) 3 ml INH RQ6 [facility] Diltiazem HCl (Cardizem) 30 mg PO QID [facility] Last Admin: 05/19/18 09:14 Dose: 30 mg Ciprofloxacin (Cipro 200mg/100ml D5w) 100 mls @ 67 mls/hr IVPB Q12H [facility]; P rotocol Last Admin: 05/19/18 04:32 Dose: 67 mls/hr Insulin Aspart (Novolog) 0 unit SC Q6 [facility]; Protocol Last Admin: 05/19/18 05:47 Dose: 2 u Insulin Glargine (Lantus) 10 unit SC DAILY [facility] Last Admin: 05/19/18 09:14 Dose: 10 units Metoprolol Tartrate (Lopressor) 50 mg PO BID [facility] Last Admin: 05/19/18 09:15 Dose: 50 mg Neomycin/Polymyxin/Bacitracin (Neosporin Triple Antibiotic Oint) 0 gm TOP BID [facility] Last Admin: 05/19/18 09:16 Dose: 1 applic Nystatin (Nystop Topical Powder) 1 applic TOP BID [facility] Last Admin: 05/19/18 09:15 Dose: 1 applic Pantoprazole Sodium (Protonix Inj) 40 mg IVP Q12H [facility] Last Admin: 05/19/18 09:16 Dose: 40 mg - Labs Labs: 05/19/18 06:15 05/19/18 06:15 PT 18.4 SECONDS (9.7-12.2) H 05/09/18 09:10 INR 1.7 05/09/18 09:10 APTT 25 SECONDS (21-34) 05/10/18 23:10 - Constitutional Appears: No Acute Distress - Eye Exam Eye Exam: EOMI, PERRL - Respiratory Exam Respiratory Exam: Decreased Breath Sounds - Cardiovascular Exam Cardiovascular Exam: REGULAR RHYTHM - GI/Abdominal Exam GI & Abdominal Exam: Soft, Normal Bowel Sounds. absent: Tenderness Additional comments: GT intact and infusing well. - Extremities Exam Extremities Exam: Normal Inspection Assessment and Plan (1) Duodenal ulcer with hemorrhage Assessment & Plan: No bleeding and H/H stable. Advance tube feedings to meet needs. Continue PPI. Status: Acute (2) Diarrhea Assessment & Plan: Clinically stable. Observe on feedings Status: Acute
[2018-05-19] MEDS: Albuterol-Ipratrop 3 mg / 0.5 (3 ml) UD INH SCH ×2 (15:01→20:09)
--- NOTE | 2018-05-19 17:06 | CP.PCM.PN ---
Subjective - Date & Time of Evaluation Date of Evaluation: 05/17/18 Time of Evaluation: 17:06 - Subjective Subjective: Patient is having some cough. Family at bedside. Spoke to the patient's daughter. Tolerating the GI feeding. Diarrhea present. Antibiotic. On nebulizers and will follow-up the patient Objective - Vital Signs/Intake and Output Vital Signs (last 24 hours): Temp Pulse Resp BP Pulse Ox 98.4 F 92 H 16 142/60 100 05/19/18 12:00 05/19/18 15:00 05/19/18 15:00 05/19/18 15:00 05/19/18 15:00 Intake and Output: 05/19/18 05/19/18 06:59 18:59 Intake Total 490 330 Output Total 350 Balance 140 330 - Medications Medications: Current Medications Albuterol/Ipratropium (Duoneb 3 Mg/0.5 Mg (3 Ml) Ud) 3 ml INH RQ6 [facility] Last Admin: 05/19/18 15:01 Dose: Not Given Diltiazem HCl (Cardizem) 30 mg PO QID [facility] Last Admin: 05/19/18 15:43 Dose: 30 mg Insulin Aspart (Novolog) 0 unit SC Q6 [facility]; Protocol Last Admin: 05/19/18 13:29 Dose: 3 u Insulin Glargine (Lantus) 10 unit SC DAILY [facility] Last Admin: 05/19/18 09:14 Dose: 10 units Metoprolol Tartrate (Lopressor) 50 mg PO BID [facility] Last Admin: 05/19/18 09:15 Dose: 50 mg Neomycin/Polymyxin/Bacitracin (Neosporin Triple Antibiotic Oint) 0 gm TOP BID [facility] Last Admin: 05/19/18 09:16 Dose: 1 applic Nystatin (Nystop Topical Powder) 1 applic TOP BID [facility] Last Admin: 05/19/18 09:15 Dose: 1 applic Pantoprazole Sodium (Protonix Inj) 40 mg IVP Q12H [facility] Last Admin: 05/19/18 09:16 Dose: 40 mg - Labs Labs: 05/19/18 06:15 05/19/18 06:15 PT 18.4 SECONDS (9.7-12.2) H 05/09/18 09:10 INR 1.7 05/09/18 09:10 APTT 25 SECONDS (21-34) 05/10/18 23:10
--- NOTE | 2018-05-19 17:06 | CP.PCM.PN ---
Subjective - Date & Time of Evaluation Date of Evaluation: 05/18/18 Time of Evaluation: 17:06 - Subjective Subjective: Source of confusion. Sometimes patient is agitated. Tachycardia present. Mild cough noted Tolerating the PEG feeding. Patient admitted with the GI bleed. Cardiogenic shock. Improving. Hemorrhagic shock improving. On protonix Objective - Vital Signs/Intake and Output Vital Signs (last 24 hours): Temp Pulse Resp BP Pulse Ox 98.4 F 92 H 16 142/60 100 05/19/18 12:00 05/19/18 15:00 05/19/18 15:00 05/19/18 15:00 05/19/18 15:00 Intake and Output: 05/19/18 05/19/18 06:59 18:59 Intake Total 490 330 Output Total 350 Balance 140 330 - Medications Medications: Current Medications Albuterol/Ipratropium (Duoneb 3 Mg/0.5 Mg (3 Ml) Ud) 3 ml INH RQ6 [facility] Last Admin: 05/19/18 15:01 Dose: Not Given Diltiazem HCl (Cardizem) 30 mg PO QID [facility] Last Admin: 05/19/18 15:43 Dose: 30 mg Insulin Aspart (Novolog) 0 unit SC Q6 [facility]; Protocol Last Admin: 05/19/18 13:29 Dose: 3 u Insulin Glargine (Lantus) 10 unit SC DAILY [facility] Last Admin: 05/19/18 09:14 Dose: 10 units Metoprolol Tartrate (Lopressor) 50 mg PO BID [facility] Last Admin: 05/19/18 09:15 Dose: 50 mg Neomycin/Polymyxin/Bacitracin (Neosporin Triple Antibiotic Oint) 0 gm TOP BID [facility] Last Admin: 05/19/18 09:16 Dose: 1 applic Nystatin (Nystop Topical Powder) 1 applic TOP BID [facility] Last Admin: 05/19/18 09:15 Dose: 1 applic Pantoprazole Sodium (Protonix Inj) 40 mg IVP Q12H [facility] Last Admin: 05/19/18 09:16 Dose: 40 mg - Labs Labs: 05/19/18 06:15 05/19/18 06:15 PT 18.4 SECONDS (9.7-12.2) H 05/09/18 09:10 INR 1.7 05/09/18 09:10 APTT 25 SECONDS (21-34) 05/10/18 23:10
--- NOTE | 2018-05-19 17:06 | CP.PCM.PN ---
Subjective - Date & Time of Evaluation Date of Evaluation: 05/19/18 Time of Evaluation: 17:06 - Subjective Subjective: Source of confusion. Sometimes patient is agitated. Tachycardia present. Mild cough noted Tolerating the PEG feeding. Patient admitted with the GI bleed. Cardiogenic shock. Improving. Hemorrhagic shock improving. On protonix Objective - Vital Signs/Intake and Output Vital Signs (last 24 hours): Temp Pulse Resp BP Pulse Ox 98.4 F 92 H 16 142/60 100 05/19/18 12:00 05/19/18 15:00 05/19/18 15:00 05/19/18 15:00 05/19/18 15:00 Intake and Output: 05/19/18 05/19/18 06:59 18:59 Intake Total 490 330 Output Total 350 Balance 140 330 - Medications Medications: Current Medications Albuterol/Ipratropium (Duoneb 3 Mg/0.5 Mg (3 Ml) Ud) [address] [facility] Last Admin: 05/19/18 15:01 Dose: Not Given Diltiazem HCl (Cardizem) [address] [facility] Last Admin: 05/19/18 15:43 Dose: 30 mg Insulin Aspart (Novolog) [address] [facility]; Protocol Last Admin: 05/19/18 13:29 Dose: 3 u Insulin Glargine (Lantus) [address] [facility] Last Admin: 05/19/18 09:14 Dose: 10 units Metoprolol Tartrate (Lopressor) [address] [facility] Last Admin: 05/19/18 09:15 Dose: 50 mg Neomycin/Polymyxin/Bacitracin (Neosporin Triple Antibiotic Oint) [address] [facility] Last Admin: 05/19/18 09:16 Dose: 1 applic Nystatin (Nystop Topical Powder) [address] [facility] Last Admin: 05/19/18 09:15 Dose: 1 applic Pantoprazole Sodium (Protonix Inj) [address] [facility] Last Admin: 05/19/18 09:16 Dose: 40 mg - Labs Labs: 05/19/18 06:15 05/19/18 06:15 PT 18.4 SECONDS (9.7-12.2) H 05/09/18 09:10 INR 1.7 05/09/18 09:10 APTT 25 SECONDS (21-34) 05/10/18 23:10
--- NOTE | 2018-05-19 18:16 | CP.PCM.PN ---
Subjective - Date & Time of Evaluation Date of Evaluation: 05/19/18 Time of Evaluation: 14:35 - Subjective Subjective: dictated Objective - Vital Signs/Intake and Output Vital Signs (last 24 hours): Temp Pulse Resp BP Pulse Ox 97.7 F 87 29 H 140/59 L 100 05/19/18 16:00 05/19/18 17:00 05/19/18 17:00 05/19/18 17:00 05/19/18 17:00 Intake and Output: 05/19/18 05/19/18 06:59 18:59 Intake Total 490 400 Output Total 350 Balance 140 400 - Medications Medications: Current Medications Albuterol/Ipratropium (Duoneb 3 Mg/0.5 Mg (3 Ml) Ud) 3 ml INH RQ6 [facility] Last Admin: 05/19/18 15:01 Dose: Not Given Diltiazem HCl (Cardizem) 30 mg PO QID [facility] Last Admin: 05/19/18 15:43 Dose: 30 mg Insulin Aspart (Novolog) 0 unit SC Q6 [facility]; Protocol Last Admin: 05/19/18 13:29 Dose: 3 u Insulin Glargine (Lantus) 10 unit SC DAILY [facility] Last Admin: 05/19/18 09:14 Dose: 10 units Metoprolol Tartrate (Lopressor) 50 mg PO BID [facility] Last Admin: 05/19/18 09:15 Dose: 50 mg Neomycin/Polymyxin/Bacitracin (Neosporin Triple Antibiotic Oint) 0 gm TOP BID [facility] Last Admin: 05/19/18 09:16 Dose: 1 applic Nystatin (Nystop Topical Powder) 1 applic TOP BID [facility] Last Admin: 05/19/18 09:15 Dose: 1 applic Pantoprazole Sodium (Protonix Inj) 40 mg IVP Q12H [facility] Last Admin: 05/19/18 09:16 Dose: 40 mg - Labs Labs: 05/19/18 06:15 05/19/18 06:15 PT 18.4 SECONDS (9.7-12.2) H 05/09/18 09:10 INR 1.7 05/09/18 09:10 APTT 25 SECONDS (21-34) 05/10/18 23:10 Assessment and Plan (1) Respiratory failure Status: Acute (2) Infection of gastrostomy site Status: Acute (3) Ischemic hepatitis Status: Acute (4) Anemia Status: Acute
--- NOTE | 2018-05-19 19:38 | CP.PCM.PN ---
Subjective - Date & Time of Evaluation Date of Evaluation: 05/18/18 Time of Evaluation: 19:25 - Subjective Subjective: 87 year old female with past medical history HTN, CHF, CAD, COPD, and DM2 who presented with altered mental status and was found to be septic and hyperglycemic. Admitted to ICU for sepsis/septic shock requiring pressors and s/p intubation. Currently off pressors and sedation, awake and alert, following simple commands, extubated and currently on bi-pap AMS: resolving, needs reorientation at times -respiratory failure: continue bi-pap PRN, titrate down FiO2, currently on nasal canula -A-fib: continue cardizem GI:tolerating peg tube feeds - metabolic acidosis resolved -complete abx regimen -continue dvt/pud ppx CXR reveals congestion: lasix 20 mg now -off bi-pap -Patient remains hemodynamically stable Objective - Vital Signs/Intake and Output Vital Signs (last 24 hours): Temp Pulse Resp BP Pulse Ox 97.7 F 77 29 H 122/65 99 05/19/18 16:00 05/19/18 19:00 05/19/18 19:00 05/19/18 19:00 05/19/18 19:00 Intake and Output: 05/19/18 05/20/18 18:59 06:59 Intake Total 435 35 Output Total 400 Balance 35 35 - Medications Medications: Current Medications Albuterol/Ipratropium (Duoneb 3 Mg/0.5 Mg (3 Ml) Ud) 3 ml INH RQ6 [facility] Last Admin: 05/19/18 15:01 Dose: Not Given Diltiazem HCl (Cardizem) 30 mg PO QID [facility] Last Admin: 05/19/18 18:30 Dose: 30 mg Insulin Aspart (Novolog) 0 unit SC Q6 [facility]; Protocol Last Admin: 05/19/18 18:30 Dose: 3 u Insulin Glargine (Lantus) 10 unit SC DAILY [facility] Last Admin: 05/19/18 09:14 Dose: 10 units Metoprolol Tartrate (Lopressor) 50 mg PO BID [facility] Last Admin: 05/19/18 18:30 Dose: 50 mg Neomycin/Polymyxin/Bacitracin (Neosporin Triple Antibiotic Oint) 0 gm TOP BID [facility] Last Admin: 05/19/18 18:30 Dose: 1 applic Nystatin (Nystop Topical Powder) 1 applic TOP BID [facility] Last Admin: 05/19/18 18:30 Dose: 1 applic Pantoprazole Sodium (Protonix Inj) 40 mg IVP Q12H [facility] Last Admin: 05/19/18 09:16 Dose: 40 mg - Labs Labs: 05/19/18 06:15 05/19/18 06:15 PT 18.4 SECONDS (9.7-12.2) H 05/09/18 09:10 INR 1.7 05/09/18 09:10 APTT 25 SECONDS (21-34) 05/10/18 23:10
--- NOTE | 2018-05-19 19:39 | CP.PCM.PN ---
Subjective - Date & Time of Evaluation Date of Evaluation: 05/19/18 Time of Evaluation: 19:38 - Subjective Subjective: Patient seen and evaluated No cardiac events noted Hemodynamically stable Objective - Vital Signs/Intake and Output Vital Signs (last 24 hours): Temp Pulse Resp BP Pulse Ox 97.7 F 77 29 H 122/65 99 05/19/18 16:00 05/19/18 19:00 05/19/18 19:00 05/19/18 19:00 05/19/18 19:00 Intake and Output: 05/19/18 05/20/18 18:59 06:59 Intake Total 435 35 Output Total 400 Balance 35 35 - Medications Medications: Current Medications Albuterol/Ipratropium (Duoneb 3 Mg/0.5 Mg (3 Ml) Ud) 3 ml INH RQ6 [facility] Last Admin: 05/19/18 15:01 Dose: Not Given Diltiazem HCl (Cardizem) 30 mg PO QID [facility] Last Admin: 05/19/18 18:30 Dose: 30 mg Insulin Aspart (Novolog) 0 unit SC Q6 [facility]; Protocol Last Admin: 05/19/18 18:30 Dose: 3 u Insulin Glargine (Lantus) 10 unit SC DAILY [facility] Last Admin: 05/19/18 09:14 Dose: 10 units Metoprolol Tartrate (Lopressor) 50 mg PO BID [facility] Last Admin: 05/19/18 18:30 Dose: 50 mg Neomycin/Polymyxin/Bacitracin (Neosporin Triple Antibiotic Oint) 0 gm TOP BID [facility] Last Admin: 05/19/18 18:30 Dose: 1 applic Nystatin (Nystop Topical Powder) 1 applic TOP BID [facility] Last Admin: 05/19/18 18:30 Dose: 1 applic Pantoprazole Sodium (Protonix Inj) 40 mg IVP Q12H [facility] Last Admin: 05/19/18 09:16 Dose: 40 mg - Labs Labs: 05/19/18 06:15 05/19/18 06:15 PT 18.4 SECONDS (9.7-12.2) H 05/09/18 09:10 INR 1.7 05/09/18 09:10 APTT 25 SECONDS (21-34) 05/10/18 23:10
--- NOTE | 2018-05-20 00:03 | PN ---
DATE: 05/19/2018 SUBJECTIVE: The patient was drowsy, but she is stable. She is off the ventilator now. Daughter was at the bedside. OBJECTIVE: VITAL SIGNS: T-max is 97.7, heart rate of 93, blood pressure 140/59, respirations are 21. HEENT: Head is atraumatic, normocephalic. She still has a triple-lumen. NECK: Supple. LUNGS: Decreased breath sounds bilaterally. HEART: S1, S2 regular. ABDOMEN: Soft, nontender. No guarding, no rigidity present. PEG site has improved. EXTREMITIES: Have mild edema present. She has been on Cipro since admission, so I will discontinue it as it was approaching renewal. White count is 11.1, hemoglobin 10.3, hematocrit 31.1, platelet count is 410; and at this time, the patient needs to be on cardiac meds. Cath Lab Nurse is following. Her BUN is 13, creatinine 0.8. LFTs are improving, and she was extubated, and hoping that this patient will make it. She also has a rectal tube at this time. We will discontinue the Cipro, and she is also tolerating feeds through the PEG tube. Val Jones MD
[2018-05-20] MEDS: Albuterol-Ipratrop 3 mg / 0.5 (3 ml) UD INH SCH ×4 (01:12→20:19)
[2018-05-20] MEDS: (Novolog) Insulin Aspart, Recombinant 100 u/ml 10 ml vial SC SCH ×4 (05:31→23:41)
[2018-05-20] MEDS: Multiple Vitamins Oral Solution PO SCH (09:53)
[2018-05-20] MEDS: (Lantus) Insulin Glargine, Recombinant SC SCH (09:53)
[2018-05-20] MEDS: Bacitracin/Neomycin/Polymyxin Oint(30GM) TOP SCH ×2 (10:30→18:17)
--- NOTE | 2018-05-20 14:26 | CP.PCM.PN ---
Subjective - Date & Time of Evaluation Date of Evaluation: 05/20/18 Time of Evaluation: 14:24 - Subjective Subjective: F/U Ulcer Off vent. No reported diarrhea. On feeds via GTube Hgb stable- may decrease Protonix to once daily dosing D/W patient's daughter Objective - Vital Signs/Intake and Output Vital Signs (last 24 hours): Temp Pulse Resp BP Pulse Ox 97.7 F 112 H 26 H 163/88 H 100 05/20/18 08:00 05/20/18 11:52 05/20/18 08:14 05/20/18 08:14 05/20/18 08:14 Intake and Output: 05/20/18 05/20/18 06:59 18:59 Intake Total 515 70 Output Total 650 Balance -135 70 - Medications Medications: Current Medications Albuterol/Ipratropium (Duoneb 3 Mg/0.5 Mg (3 Ml) Ud) 3 ml INH RQ6 [facility] Last Admin: 05/20/18 13:28 Dose: 3 ml Ascorbic Acid (Vitamin C 500 Mg Tab) 1,000 mg PO DAILY [facility] Last Admin: 05/20/18 09:52 Dose: 1,000 mg Diltiazem HCl (Cardizem) 30 mg PO QID [facility] Last Admin: 05/20/18 09:53 Dose: 30 mg Insulin Aspart (Novolog) 0 unit SC Q6 [facility]; Protocol Last Admin: 05/20/18 13:01 Dose: 3 u Insulin Glargine (Lantus) 10 unit SC DAILY [facility] Last Admin: 05/20/18 09:53 Dose: 10 units Metoprolol Tartrate (Lopressor) 50 mg PO BID [facility] Last Admin: 05/20/18 09:53 Dose: 50 mg Multivitamins/Vitamin C (Multi-Delyn Liquid) 5 ml PO DAILY [facility] Last Admin: 05/20/18 09:53 Dose: 5 ml Neomycin/Polymyxin/Bacitracin (Neosporin Triple Antibiotic Oint) 0 gm TOP BID [facility] Last Admin: 05/20/18 10:30 Dose: 1 applic Nystatin (Nystop Topical Powder) 1 applic TOP BID [facility] Last Admin: 05/20/18 10:31 Dose: 1 applic Pantoprazole Sodium (Protonix Inj) 40 mg IVP Q12H [facility] Last Admin: 05/20/18 08:04 Dose: 40 mg Zinc Sulfate (Zinc Sulfate 220 Mg Cap) 220 mg PO DAILY [facility] Last Admin: 05/20/18 09:52 Dose: 220 mg - Labs Labs: 05/19/18 06:15 05/19/18 06:15 PT 18.4 SECONDS (9.7-12.2) H 05/09/18 09:10 INR 1.7 05/09/18 09:10 APTT 25 SECONDS (21-34) 05/10/18 23:10 - Constitutional Appears: Chronically Ill - Head Exam Head Exam: NORMOCEPHALIC - Respiratory Exam Respiratory Exam: NORMAL BREATHING PATTERN - Cardiovascular Exam Cardiovascular Exam: REGULAR RHYTHM Assessment and Plan (1) Diabetic ketoacidosis Status: Acute (2) GI bleed Assessment & Plan: stable May decrease Protonix dose Status: Acute (3) Sepsis Status: Acute (4) Electrolyte abnormality Status: Acute (5) Ischemic hepatitis Assessment & Plan: resolved Status: Acute (6) Respiratory failure with hypoxia Status: Acute
--- NOTE | 2018-05-20 21:39 | CP.PCM.PN ---
Subjective - Date & Time of Evaluation Date of Evaluation: 05/20/18 Time of Evaluation: 16:10 - Subjective Subjective: Patient seen and evaluated No cardiac events noted Continue current meds Objective - Vital Signs/Intake and Output Vital Signs (last 24 hours): Temp Pulse Resp BP Pulse Ox 97.6 F 80 30 H 128/57 L 99 05/20/18 20:00 05/20/18 20:00 05/20/18 20:00 05/20/18 20:00 05/20/18 20:00 Intake and Output: 05/20/18 05/21/18 18:59 06:59 Intake Total 530 35 Output Total 250 Balance 280 35 - Medications Medications: Current Medications Albuterol/Ipratropium (Duoneb 3 Mg/0.5 Mg (3 Ml) Ud) 3 ml INH RQ6 [facility] Last Admin: 05/20/18 20:19 Dose: 3 ml Ascorbic Acid (Vitamin C 500 Mg Tab) 1,000 mg PO DAILY [facility] Last Admin: 05/20/18 09:52 Dose: 1,000 mg Diltiazem HCl (Cardizem) 30 mg PO QID [facility] Last Admin: 05/20/18 18:16 Dose: 30 mg Insulin Aspart (Novolog) 0 unit SC Q6 [facility]; Protocol Last Admin: 05/20/18 18:17 Dose: 3 u Insulin Glargine (Lantus) 10 unit SC DAILY [facility] Last Admin: 05/20/18 09:53 Dose: 10 units Metoprolol Tartrate (Lopressor) 50 mg PO BID [facility] Last Admin: 05/20/18 18:20 Dose: 50 mg Multivitamins/Vitamin C (Multi-Delyn Liquid) 5 ml PO DAILY [facility] Last Admin: 05/20/18 09:53 Dose: 5 ml Neomycin/Polymyxin/Bacitracin (Neosporin Triple Antibiotic Oint) 0 gm TOP BID [facility] Last Admin: 05/20/18 18:17 Dose: 1 applic Nystatin (Nystop Topical Powder) 1 applic TOP BID [facility] Last Admin: 05/20/18 18:18 Dose: 1 applic Pantoprazole Sodium (Protonix Inj) 40 mg IVP Q12H [facility] Last Admin: 05/20/18 08:04 Dose: 40 mg Zinc Sulfate (Zinc Sulfate 220 Mg Cap) 220 mg PO DAILY [facility] Last Admin: 05/20/18 09:52 Dose: 220 mg - Labs Labs: 05/19/18 06:15 05/19/18 06:15 PT 18.4 SECONDS (9.7-12.2) H 05/09/18 09:10 INR 1.7 05/09/18 09:10 APTT 25 SECONDS (21-34) 05/10/18 23:10
[2018-05-21] MEDS: Albuterol-Ipratrop 3 mg / 0.5 (3 ml) UD INH SCH ×4 (01:21→19:27)
[2018-05-21] MEDS: (Novolog) Insulin Aspart, Recombinant 100 u/ml 10 ml vial SC SCH ×3 (06:48→18:10)
[2018-05-21 07:00] LABS: BASO # 0.1 K/uL (0.0-0.2); BASO % 0.7 % (0.0-2.0); EOS # 0.2 K/uL (0.0-0.7); EOS % 1.9 % (0.0-4.0); HEMOGLOBIN 10.5 g/dL (11.0-16.0); LYMPH # 1.3 K/uL (1.0-4.3); MEAN CELL VOLUME 89.8 fL (81.0-99.0); MEAN CORPUSCULAR HEMOGLOBIN 30.5 pg (27.0-31.0); MEAN PLATELET VOLUME 7.7 fL (7.2-11.7); MONO # 0.8 K/uL (0.0-0.8); MONO % 7.8 % (0.0-10.0); NEUT # 8.3 K/uL (1.8-7.0); NEUT % 77.6 % (50.0-75.0); RBC 3.44 Mil/uL (3.80-5.20); RED CELL DISTRIBUTION WIDTH 17.2 % (11.5-14.5); WHITE BLOOD COUNT 10.8 K/uL (4.8-10.8)
[2018-05-21 07:14] LABS: ALB/GLOB RATIO 1.1 (1.0-2.1); ALBUMIN 3.4 g/dL (3.5-5.0); ALT/SGPT 42 U/L (9-52); AST/SGOT 29 U/L (14-36); BLOOD UREA NITROGEN 28 mg/dL (7-17); CALCIUM 10.1 mg/dl (8.6-10.4); GFR NON-AFRICAN AMERICAN > 60
[2018-05-21] MEDS: Bacitracin/Neomycin/Polymyxin Oint(30GM) TOP SCH ×2 (09:35→18:10)
[2018-05-21] MEDS: Multiple Vitamins Oral Solution PO SCH (09:35)
[2018-05-21] MEDS: (Lantus) Insulin Glargine, Recombinant SC SCH (09:38)
--- NOTE | 2018-05-21 20:49 | CP.PCM.PN ---
Subjective - Date & Time of Evaluation Date of Evaluation: 05/20/18 Time of Evaluation: 20:49 - Subjective Subjective: Patient is having episodes of diarrhea. Abdominal pain present. On antibiotic. Will continue the current treatment. We will possibly remove the TLC. Awaiting for midline Objective - Vital Signs/Intake and Output Vital Signs (last 24 hours): Temp Pulse Resp BP Pulse Ox 98 F 91 H 18 156/90 H 98 05/21/18 20:00 05/21/18 20:00 05/21/18 20:00 05/21/18 17:34 05/21/18 20:00 Intake and Output: 05/21/18 05/22/18 18:59 06:59 Intake Total 1000 Output Total 300 Balance 700 - Medications Medications: Current Medications Albuterol/Ipratropium (Duoneb 3 Mg/0.5 Mg (3 Ml) Ud) 3 ml INH RQ6 [facility] Last Admin: 05/21/18 19:27 Dose: 3 ml Ascorbic Acid (Vitamin C 500 Mg Tab) 1,000 mg PO DAILY [facility] Last Admin: 05/21/18 09:34 Dose: 1,000 mg Diltiazem HCl (Cardizem) 30 mg PO QID [facility] Last Admin: 05/21/18 17:43 Dose: 30 mg Insulin Aspart (Novolog) 0 unit SC Q6 [facility]; Protocol Last Admin: 05/21/18 18:10 Dose: 4 u Insulin Glargine (Lantus) 10 unit SC DAILY [facility] Last Admin: 05/21/18 09:38 Dose: 10 units Metoprolol Tartrate (Lopressor) 50 mg PO BID [facility] Last Admin: 05/21/18 17:43 Dose: 50 mg Multivitamins/Vitamin C (Multi-Delyn Liquid) 5 ml PO DAILY [facility] Last Admin: 05/21/18 09:35 Dose: 5 ml Neomycin/Polymyxin/Bacitracin (Neosporin Triple Antibiotic Oint) 0 gm TOP BID [facility] Last Admin: 05/21/18 18:10 Dose: 1 applic Nystatin (Nystop Topical Powder) 1 applic TOP BID [facility] Last Admin: 05/21/18 18:10 Dose: 1 applic Pantoprazole Sodium (Protonix Inj) 40 mg IVP Q12H [facility] Last Admin: 05/21/18 20:23 Dose: 40 mg Zinc Sulfate (Zinc Sulfate 220 Mg Cap) 220 mg PO DAILY [facility] Last Admin: 05/21/18 09:34 Dose: 220 mg - Labs Labs: 05/21/18 06:46 05/21/18 06:46 PT 18.4 SECONDS (9.7-12.2) H 05/09/18 09:10 INR 1.7 05/09/18 09:10 APTT 25 SECONDS (21-34) 05/10/18 23:10
--- NOTE | 2018-05-21 20:49 | CP.PCM.PN ---
Subjective - Date & Time of Evaluation Date of Evaluation: 05/21/18 Time of Evaluation: 20:49 - Subjective Subjective: Patient is more awake. Sitting up comfortably. Not in any distress. Elevated blood sugar noted. Still having diarrhea. Will continue the current treatment. Will follow the patient Objective - Vital Signs/Intake and Output Vital Signs (last 24 hours): Temp Pulse Resp BP Pulse Ox 98 F 91 H 18 156/90 H 98 05/21/18 20:00 05/21/18 20:00 05/21/18 20:00 05/21/18 17:34 05/21/18 20:00 Intake and Output: 05/21/18 05/22/18 18:59 06:59 Intake Total 1000 Output Total 300 Balance 700 - Medications Medications: Current Medications Albuterol/Ipratropium (Duoneb 3 Mg/0.5 Mg (3 Ml) Ud) 3 ml INH RQ6 [facility] Last Admin: 05/21/18 19:27 Dose: 3 ml Ascorbic Acid (Vitamin C 500 Mg Tab) 1,000 mg PO DAILY [facility] Last Admin: 05/21/18 09:34 Dose: 1,000 mg Diltiazem HCl (Cardizem) 30 mg PO QID [facility] Last Admin: 05/21/18 17:43 Dose: 30 mg Insulin Aspart (Novolog) 0 unit SC Q6 [facility]; Protocol Last Admin: 05/21/18 18:10 Dose: 4 u Insulin Glargine (Lantus) 10 unit SC DAILY [facility] Last Admin: 05/21/18 09:38 Dose: 10 units Metoprolol Tartrate (Lopressor) 50 mg PO BID [facility] Last Admin: 05/21/18 17:43 Dose: 50 mg Multivitamins/Vitamin C (Multi-Delyn Liquid) 5 ml PO DAILY [facility] Last Admin: 05/21/18 09:35 Dose: 5 ml Neomycin/Polymyxin/Bacitracin (Neosporin Triple Antibiotic Oint) 0 gm TOP BID [facility] Last Admin: 05/21/18 18:10 Dose: 1 applic Nystatin (Nystop Topical Powder) 1 applic TOP BID [facility] Last Admin: 05/21/18 18:10 Dose: 1 applic Pantoprazole Sodium (Protonix Inj) 40 mg IVP Q12H [facility] Last Admin: 05/21/18 20:23 Dose: 40 mg Zinc Sulfate (Zinc Sulfate 220 Mg Cap) 220 mg PO DAILY [facility] Last Admin: 05/21/18 09:34 Dose: 220 mg - Labs Labs: 05/21/18 06:46 05/21/18 06:46 PT 18.4 SECONDS (9.7-12.2) H 05/09/18 09:10 INR 1.7 05/09/18 09:10 APTT 25 SECONDS (21-34) 05/10/18 23:10
--- NOTE | 2018-05-21 20:54 | CP.PCM.PN ---
Subjective - Date & Time of Evaluation Date of Evaluation: 05/11/18 Time of Evaluation: 20:54 - Subjective Subjective: Patient is tolerating the CPAP. But episodes of apnea and tachycardia present. Unstable at this time. Received a multiple transfusion in the past. Bleeding is controlled very well. Will continue the supportive treatment and will follow-up the patient Objective - Vital Signs/Intake and Output Vital Signs (last 24 hours): Temp Pulse Resp BP Pulse Ox 98 F 91 H 18 156/90 H 98 05/21/18 20:00 05/21/18 20:00 05/21/18 20:00 05/21/18 17:34 05/21/18 20:00 Intake and Output: 05/21/18 05/22/18 18:59 06:59 Intake Total 1000 Output Total 300 Balance 700 - Medications Medications: Current Medications Albuterol/Ipratropium (Duoneb 3 Mg/0.5 Mg (3 Ml) Ud) 3 ml INH RQ6 [facility] Last Admin: 05/21/18 19:27 Dose: 3 ml Ascorbic Acid (Vitamin C 500 Mg Tab) 1,000 mg PO DAILY [facility] Last Admin: 05/21/18 09:34 Dose: 1,000 mg Diltiazem HCl (Cardizem) 30 mg PO QID [facility] Last Admin: 05/21/18 17:43 Dose: 30 mg Insulin Aspart (Novolog) 0 unit SC Q6 [facility]; Protocol Last Admin: 05/21/18 18:10 Dose: 4 u Insulin Glargine (Lantus) 10 unit SC DAILY [facility] Last Admin: 05/21/18 09:38 Dose: 10 units Metoprolol Tartrate (Lopressor) 50 mg PO BID [facility] Last Admin: 05/21/18 17:43 Dose: 50 mg Multivitamins/Vitamin C (Multi-Delyn Liquid) 5 ml PO DAILY [facility] Last Admin: 05/21/18 09:35 Dose: 5 ml Neomycin/Polymyxin/Bacitracin (Neosporin Triple Antibiotic Oint) 0 gm TOP BID [facility] Last Admin: 05/21/18 18:10 Dose: 1 applic Nystatin (Nystop Topical Powder) 1 applic TOP BID [facility] Last Admin: 05/21/18 18:10 Dose: 1 applic Pantoprazole Sodium (Protonix Inj) 40 mg IVP Q12H [facility] Last Admin: 10/23/18 20:23 Dose: 40 mg Zinc Sulfate (Zinc Sulfate 220 Mg Cap) 220 mg PO DAILY [facility] Last Admin: 05/21/18 09:34 Dose: 220 mg - Labs Labs: 05/21/18 06:46 05/21/18 06:46 PT 18.4 SECONDS (9.7-12.2) H 05/09/18 09:10 INR 1.7 05/09/18 09:10 APTT 25 SECONDS (21-34) 05/10/18 23:10
--- NOTE | 2018-05-21 20:54 | CP.PCM.PN ---
Subjective - Date & Time of Evaluation Date of Evaluation: 05/13/18 Time of Evaluation: 20:28 - Subjective Subjective: Patient is tolerating the CPAP. But episodes of apnea and tachycardia present. Unstable at this time. Received a multiple transfusion in the past. Bleeding is controlled very well. Will continue the supportive treatment and will follow-up the patient Objective - Vital Signs/Intake and Output Vital Signs (last 24 hours): Temp Pulse Resp BP Pulse Ox 98 F 91 H 18 156/90 H 98 05/21/18 20:00 05/21/18 20:00 05/21/18 20:00 05/21/18 17:34 05/21/18 20:00 Intake and Output: 05/21/18 05/22/18 18:59 06:59 Intake Total 1000 Output Total 300 Balance 700 - Medications Medications: Current Medications Albuterol/Ipratropium (Duoneb 3 Mg/0.5 Mg (3 Ml) Ud) 3 ml INH RQ6 [facility] Last Admin: 05/21/18 19:27 Dose: 3 ml Ascorbic Acid (Vitamin C 500 Mg Tab) 1,000 mg PO DAILY [facility] Last Admin: 05/21/18 09:34 Dose: 1,000 mg Diltiazem HCl (Cardizem) 30 mg PO QID [facility] Last Admin: 05/21/18 17:43 Dose: 30 mg Insulin Aspart (Novolog) 0 unit SC Q6 [facility]; Protocol Last Admin: 05/21/18 18:10 Dose: 4 u Insulin Glargine (Lantus) 10 unit SC DAILY [facility] Last Admin: 05/21/18 09:38 Dose: 10 units Metoprolol Tartrate (Lopressor) 50 mg PO BID [facility] Last Admin: 05/21/18 17:43 Dose: 50 mg Multivitamins/Vitamin C (Multi-Delyn Liquid) 5 ml PO DAILY [facility] Last Admin: 05/21/18 09:35 Dose: 5 ml Neomycin/Polymyxin/Bacitracin (Neosporin Triple Antibiotic Oint) 0 gm TOP BID [facility] Last Admin: 05/21/18 18:10 Dose: 1 applic Nystatin (Nystop Topical Powder) 1 applic TOP BID [facility] Last Admin: 05/21/18 18:10 Dose: 1 applic Pantoprazole Sodium (Protonix Inj) 40 mg IVP Q12H [facility] Last Admin: 10/23/18 20:23 Dose: 40 mg Zinc Sulfate (Zinc Sulfate 220 Mg Cap) 220 mg PO DAILY [facility] Last Admin: 05/21/18 09:34 Dose: 220 mg - Labs Labs: 05/21/18 06:46 05/21/18 06:46 PT 18.4 SECONDS (9.7-12.2) H 05/09/18 09:10 INR 1.7 05/09/18 09:10 APTT 25 SECONDS (21-34) 05/10/18 23:10
--- NOTE | 2018-05-21 20:55 | CP.PCM.PN ---
Subjective - Date & Time of Evaluation Date of Evaluation: 05/10/18 Time of Evaluation: 20:55 - Subjective Subjective: Patient underwent the endoscopy. Active GI bleed noted. Currently on Protonix drip. Nothing by mouth. On ventilator. Overall condition is very unstable. Discussed with the patient's daughter. Will continue the supportive bed treatment and will follow the patient Objective - Vital Signs/Intake and Output Vital Signs (last 24 hours): Temp Pulse Resp BP Pulse Ox 98 F 91 H 18 156/90 H 98 05/21/18 20:00 05/21/18 20:00 05/21/18 20:00 05/21/18 17:34 05/21/18 20:00 Intake and Output: 05/21/18 05/22/18 18:59 06:59 Intake Total 1000 Output Total 300 Balance 700 - Medications Medications: Current Medications Albuterol/Ipratropium (Duoneb 3 Mg/0.5 Mg (3 Ml) Ud) 3 ml INH RQ6 [facility] Last Admin: 05/21/18 19:27 Dose: 3 ml Ascorbic Acid (Vitamin C 500 Mg Tab) 1,000 mg PO DAILY [facility] Last Admin: 05/21/18 09:34 Dose: 1,000 mg Diltiazem HCl (Cardizem) 30 mg PO QID [facility] Last Admin: 05/21/18 17:43 Dose: 30 mg Insulin Aspart (Novolog) 0 unit SC Q6 [facility]; Protocol Last Admin: 05/21/18 18:10 Dose: 4 u Insulin Glargine (Lantus) 10 unit SC DAILY [facility] Last Admin: 05/21/18 09:38 Dose: 10 units Metoprolol Tartrate (Lopressor) 50 mg PO BID [facility] Last Admin: 05/21/18 17:43 Dose: 50 mg Multivitamins/Vitamin C (Multi-Delyn Liquid) 5 ml PO DAILY [facility] Last Admin: 05/21/18 09:35 Dose: 5 ml Neomycin/Polymyxin/Bacitracin (Neosporin Triple Antibiotic Oint) 0 gm TOP BID [facility] Last Admin: 05/21/18 18:10 Dose: 1 applic Nystatin (Nystop Topical Powder) 1 applic TOP BID [facility] Last Admin: 05/21/18 18:10 Dose: 1 applic Pantoprazole Sodium (Protonix Inj) 40 mg IVP Q12H [facility] Last Admin: 05/21/18 20:23 Dose: 40 mg Zinc Sulfate (Zinc Sulfate 220 Mg Cap) 220 mg PO DAILY [facility] Last Admin: 05/21/18 09:34 Dose: 220 mg - Labs Labs: 05/21/18 06:46 05/21/18 06:46 PT 18.4 SECONDS (9.7-12.2) H 05/09/18 09:10 INR 1.7 05/09/18 09:10 APTT 25 SECONDS (21-34) 05/10/18 23:10
--- NOTE | 2018-05-21 20:55 | CP.PCM.PN ---
Subjective - Date & Time of Evaluation Date of Evaluation: 05/09/18 Time of Evaluation: 20:55 - Subjective Subjective: Patient underwent the endoscopy. Active GI bleed noted. Currently on Protonix drip. Nothing by mouth. On ventilator. Overall condition is very unstable. Discussed with the patient's daughter. Will continue the supportive treatment and will follow the patient Objective - Vital Signs/Intake and Output Vital Signs (last 24 hours): Temp Pulse Resp BP Pulse Ox 98 F 91 H 18 156/90 H 98 05/21/18 20:00 05/21/18 20:00 05/21/18 20:00 05/21/18 17:34 05/21/18 20:00 Intake and Output: 05/21/18 05/22/18 18:59 06:59 Intake Total 1000 Output Total 300 Balance 700 - Medications Medications: Current Medications Albuterol/Ipratropium (Duoneb 3 Mg/0.5 Mg (3 Ml) Ud) 3 ml INH RQ6 [facility] Last Admin: 05/21/18 19:27 Dose: 3 ml Ascorbic Acid (Vitamin C 500 Mg Tab) 1,000 mg PO DAILY [facility] Last Admin: 05/21/18 09:34 Dose: 1,000 mg Diltiazem HCl (Cardizem) 30 mg PO QID [facility] Last Admin: 05/21/18 17:43 Dose: 30 mg Insulin Aspart (Novolog) 0 unit SC Q6 [facility]; Protocol Last Admin: 05/21/18 18:10 Dose: 4 u Insulin Glargine (Lantus) 10 unit SC DAILY [facility] Last Admin: 05/21/18 09:38 Dose: 10 units Metoprolol Tartrate (Lopressor) 50 mg PO BID [facility] Last Admin: 05/21/18 17:43 Dose: 50 mg Multivitamins/Vitamin C (Multi-Delyn Liquid) 5 ml PO DAILY [facility] Last Admin: 05/21/18 09:35 Dose: 5 ml Neomycin/Polymyxin/Bacitracin (Neosporin Triple Antibiotic Oint) 0 gm TOP BID [facility] Last Admin: 05/21/18 18:10 Dose: 1 applic Nystatin (Nystop Topical Powder) 1 applic TOP BID [facility] Last Admin: 05/21/18 18:10 Dose: 1 applic Pantoprazole Sodium (Protonix Inj) 40 mg IVP Q12H [facility] Last Admin: 05/21/18 20:23 Dose: 40 mg Zinc Sulfate (Zinc Sulfate 220 Mg Cap) 220 mg PO DAILY [facility] Last Admin: 05/21/18 09:34 Dose: 220 mg - Labs Labs: 05/21/18 06:46 05/21/18 06:46 PT 18.4 SECONDS (9.7-12.2) H 05/09/18 09:10 INR 1.7 05/09/18 09:10 APTT 25 SECONDS (21-34) 05/10/18 23:10
--- NOTE | 2018-05-21 21:48 | CP.PCM.PN ---
Subjective - Date & Time of Evaluation Date of Evaluation: 05/21/18 Time of Evaluation: 11:10 - Subjective Subjective: Off vent. No reported diarrhea. On feeds via GTube Not in distress No cardiac events Physical Examination - Constitutional Appears: Chronically Ill - Head Exam Head Exam: NORMOCEPHALIC - Respiratory Exam Respiratory Exam: NORMAL BREATHING PATTERN - Cardiovascular Exam Cardiovascular Exam: REGULAR RHYTHM Assessment and Plan (1) Diabetic ketoacidosis Status: Acute (2) GI bleed Assessment & Plan: stable Status: Acute (3) Sepsis Status: Acute (4) Electrolyte abnormality Status: Acute (5) Ischemic hepatitis Assessment & Plan: resolved Status: Acute (6) Respiratory failure with hypoxia Status: Acute Objective - Vital Signs/Intake and Output Vital Signs (last 24 hours): Temp Pulse Resp BP Pulse Ox 98 F 91 H 18 156/90 H 98 05/21/18 20:00 05/21/18 20:00 05/21/18 20:00 05/21/18 17:34 05/21/18 20:00 Intake and Output: 05/21/18 05/22/18 18:59 06:59 Intake Total 1000 Output Total 300 Balance 700 - Medications Medications: Current Medications Albuterol/Ipratropium (Duoneb 3 Mg/0.5 Mg (3 Ml) Ud) 3 ml INH RQ6 [facility] Last Admin: 05/21/18 19:27 Dose: 3 ml Ascorbic Acid (Vitamin C 500 Mg Tab) 1,000 mg PO DAILY [facility] Last Admin: 05/21/18 09:34 Dose: 1,000 mg Diltiazem HCl (Cardizem) 30 mg PO QID [facility] Last Admin: 05/21/18 17:43 Dose: 30 mg Insulin Aspart (Novolog) 0 unit SC Q6 [facility]; Protocol Last Admin: 05/21/18 18:10 Dose: 4 u Insulin Glargine (Lantus) 10 unit SC DAILY [facility] Last Admin: 05/21/18 09:38 Dose: 10 units Metoprolol Tartrate (Lopressor) 50 mg PO BID [facility] Last Admin: 05/21/18 17:43 Dose: 50 mg Multivitamins/Vitamin C (Multi-Delyn Liquid) 5 ml PO DAILY [facility] Last Admin: 05/21/18 09:35 Dose: 5 ml Neomycin/Polymyxin/Bacitracin (Neosporin Triple Antibiotic Oint) 0 gm TOP BID [facility] Last Admin: 05/21/18 18:10 Dose: 1 applic Nystatin (Nystop Topical Powder) 1 applic TOP BID [facility] Last Admin: 05/21/18 18:10 Dose: 1 applic Pantoprazole Sodium (Protonix Inj) 40 mg IVP Q12H [facility] Last Admin: 05/21/18 20:23 Dose: 40 mg Zinc Sulfate (Zinc Sulfate 220 Mg Cap) 220 mg PO DAILY [facility] Last Admin: 05/21/18 09:34 Dose: 220 mg - Labs Labs: 05/21/18 06:46 05/21/18 06:46 PT 18.4 SECONDS (9.7-12.2) H 05/09/18 09:10 INR 1.7 05/09/18 09:10 APTT 25 SECONDS (21-34) 05/10/18 23:10
[2018-05-22] MEDS: (Novolog) Insulin Aspart, Recombinant 100 u/ml 10 ml vial SC SCH ×4 (00:40→18:57)
[2018-05-22] MEDS: Albuterol-Ipratrop 3 mg / 0.5 (3 ml) UD INH SCH ×4 (02:14→19:45)
[2018-05-22 06:43] LABS: HEMOGLOBIN 11.5 g/dL (11.0-16.0); MEAN CELL VOLUME 89.7 fL (81.0-99.0); MEAN CORPUSCULAR HEMOGLOBIN 30.3 pg (27.0-31.0); MEAN CORPUSCULAR HGB CONC 33.8 g/dL (33.0-37.0); MEAN PLATELET VOLUME 7.7 fL (7.2-11.7); RBC 3.78 Mil/uL (3.80-5.20); RED CELL DISTRIBUTION WIDTH 16.9 % (11.5-14.5); WHITE BLOOD COUNT 11.6 K/uL (4.8-10.8)
[2018-05-22] MEDS: (Lantus) Insulin Glargine, Recombinant SC SCH (10:04)
[2018-05-22] MEDS: Multiple Vitamins Oral Solution PO SCH (10:04)
[2018-05-22] MEDS: Bacitracin/Neomycin/Polymyxin Oint(30GM) TOP SCH ×2 (10:05→18:57)
--- NOTE | 2018-05-22 14:44 | CP.PCM.PN ---
Subjective - Date & Time of Evaluation Date of Evaluation: 05/22/18 Time of Evaluation: 14:42 - Subjective Subjective: f/u rectal bleed reportedly had smear of rectal blood yesterday, without recurrence Hgb stable D/W care analyst RN notes appreciated Objective - Vital Signs/Intake and Output Vital Signs (last 24 hours): Temp Pulse Resp BP Pulse Ox 97.6 F 98 H 18 142/74 100 05/22/18 04:00 05/22/18 07:20 05/22/18 06:03 05/22/18 06:03 05/22/18 06:03 Intake and Output: 05/22/18 05/22/18 06:59 18:59 Intake Total 260 400 Output Total 45 Balance 215 400 - Medications Medications: Current Medications Albuterol/Ipratropium (Duoneb 3 Mg/0.5 Mg (3 Ml) Ud) 3 ml INH RQ6 [facility] Last Admin: 05/22/18 07:20 Dose: 3 ml Ascorbic Acid (Vitamin C 500 Mg Tab) 1,000 mg PO DAILY [facility] Last Admin: 05/22/18 10:03 Dose: 1,000 mg Diltiazem HCl (Cardizem) 30 mg PO QID [facility] Last Admin: 05/22/18 13:16 Dose: 30 mg Insulin Aspart (Novolog) 0 unit SC Q6 [facility]; Protocol Last Admin: 05/22/18 11:58 Dose: 3 u Insulin Glargine (Lantus) 10 unit SC DAILY [facility] Last Admin: 05/22/18 10:04 Dose: 10 units Metoprolol Tartrate (Lopressor) 50 mg PO BID [facility] Last Admin: 05/22/18 10:04 Dose: 50 mg Multivitamins/Vitamin C (Multi-Delyn Liquid) 5 ml PO DAILY [facility] Last Admin: 05/22/18 10:04 Dose: 5 ml Neomycin/Polymyxin/Bacitracin (Neosporin Triple Antibiotic Oint) 0 gm TOP BID [facility] Last Admin: 05/22/18 10:05 Dose: 1 applic Nystatin (Nystop Topical Powder) 1 applic TOP BID [facility] Last Admin: 05/22/18 10:05 Dose: 1 applic Pantoprazole Sodium (Protonix Inj) 40 mg IVP Q12H [facility] Last Admin: 05/22/18 10:03 Dose: 40 mg Zinc Sulfate (Zinc Sulfate 220 Mg Cap) 220 mg PO DAILY [facility] Last Admin: 05/22/18 10:04 Dose: 220 mg - Labs Labs: 05/22/18 06:34 05/21/18 06:46 PT 18.4 SECONDS (9.7-12.2) H 05/09/18 09:10 INR 1.7 05/09/18 09:10 APTT 25 SECONDS (21-34) 05/10/18 23:10 - Constitutional Appears: Chronically Ill - Head Exam Head Exam: NORMOCEPHALIC - Cardiovascular Exam Cardiovascular Exam: REGULAR RHYTHM - GI/Abdominal Exam GI & Abdominal Exam: Soft. absent: Tenderness (replacement GT functioning, with surrounding erythema. Dry. Tube is Slightly migrated) Assessment and Plan (1) Diabetic ketoacidosis Status: Acute (2) GI bleed Assessment & Plan: Stable Rec: change PPI to PO/GT Status: Acute (3) Sepsis Status: Acute (4) Electrolyte abnormality Status: Acute (5) Ischemic hepatitis Assessment & Plan: resolved Status: Acute (6) Respiratory failure with hypoxia Status: Acute
--- NOTE | 2018-05-22 20:29 | CP.PCM.PN ---
Subjective - Date & Time of Evaluation Date of Evaluation: 05/22/18 Time of Evaluation: 20:29 - Subjective Subjective: Patient is now comfortable. Sitting up comfortably today. Coughing mild noted. Tolerating the oral feeding. Glucose is elevated. Will adjust the Lantus. Glucose control. DVT GI prophylaxis. Tolerating the feeding. Diarrhea present. Stool workup pending for C. difficile and will follow the patient Objective - Vital Signs/Intake and Output Vital Signs (last 24 hours): Temp Pulse Resp BP Pulse Ox 98.1 F 94 H 25 H 147/72 100 05/22/18 18:58 05/22/18 15:00 05/22/18 15:00 05/22/18 12:17 05/22/18 15:00 Intake and Output: 05/22/18 05/23/18 18:59 06:59 Intake Total 720 Output Total 400 Balance 320 - Medications Medications: Current Medications Albuterol/Ipratropium (Duoneb 3 Mg/0.5 Mg (3 Ml) Ud) 3 ml INH RQ6 [facility] Last Admin: 05/22/18 19:45 Dose: 3 ml Ascorbic Acid (Vitamin C 500 Mg Tab) 1,000 mg PO DAILY [facility] Last Admin: 05/22/18 10:03 Dose: 1,000 mg Diltiazem HCl (Cardizem) 30 mg PO QID [facility] Last Admin: 05/22/18 18:56 Dose: 30 mg Insulin Aspart (Novolog) 0 unit SC Q6 [facility]; Protocol Last Admin: 05/22/18 18:57 Dose: 4 u Insulin Glargine (Lantus) 20 unit SC DAILY [facility] Insulin Human Regular (Novolin R) 0 unit SC Q6 [facility]; Protocol Metoprolol Tartrate (Lopressor) 50 mg PO BID [facility] Last Admin: 05/22/18 18:57 Dose: 50 mg Multivitamins/Vitamin C (Multi-Delyn Liquid) 5 ml PO DAILY [facility] Last Admin: 05/22/18 10:04 Dose: 5 ml Neomycin/Polymyxin/Bacitracin (Neosporin Triple Antibiotic Oint) 0 gm TOP BID [facility] Last Admin: 05/22/18 18:57 Dose: 1 applic Nystatin (Nystop Topical Powder) 1 applic TOP BID [facility] Last Admin: 05/22/18 18:57 Dose: 1 applic Pantoprazole Sodium (Protonix Inj) 40 mg IVP Q12H [facility] Last Admin: 05/22/18 10:03 Dose: 40 mg Zinc Sulfate (Zinc Sulfate 220 Mg Cap) 220 mg PO DAILY [facility] Last Admin: 05/22/18 10:04 Dose: 220 mg - Labs Labs: 05/22/18 06:34 05/21/18 06:46 PT 18.4 SECONDS (9.7-12.2) H 05/09/18 09:10 INR 1.7 05/09/18 09:10 APTT 25 SECONDS (21-34) 05/10/18 23:10
--- NOTE | 2018-05-22 22:42 | CP.PCM.PN ---
Subjective - Date & Time of Evaluation Date of Evaluation: 05/22/18 Time of Evaluation: 16:20 - Subjective Subjective: Patient seen and evaluated Not in distress S/P Extubation Stable Objective - Vital Signs/Intake and Output Vital Signs (last 24 hours): Temp Pulse Resp BP Pulse Ox 97.3 F L 110 H 18 96/54 L 100 05/22/18 20:00 05/22/18 22:00 05/22/18 22:00 05/22/18 21:31 05/22/18 22:00 Intake and Output: 05/22/18 05/23/18 18:59 06:59 Intake Total 720 Output Total 400 Balance 320 - Medications Medications: Current Medications Albuterol/Ipratropium (Duoneb 3 Mg/0.5 Mg (3 Ml) Ud) 3 ml INH RQ6 [facility] Last Admin: 05/22/18 19:45 Dose: 3 ml Ascorbic Acid (Vitamin C 500 Mg Tab) 1,000 mg PO DAILY [facility] Last Admin: 05/22/18 10:03 Dose: 1,000 mg Diltiazem HCl (Cardizem) 30 mg PO QID [facility] Last Admin: 05/22/18 21:25 Dose: 30 mg Insulin Aspart (Novolog) 0 unit SC Q6 [facility]; Protocol Last Admin: 05/22/18 18:57 Dose: 4 u Insulin Glargine (Lantus) 20 unit SC DAILY [facility] Insulin Human Regular (Novolin R) 0 unit SC Q6 [facility]; Protocol Metoprolol Tartrate (Lopressor) 50 mg PO BID [facility] Last Admin: 05/22/18 18:57 Dose: 50 mg Multivitamins/Vitamin C (Multi-Delyn Liquid) 5 ml PO DAILY [facility] Last Admin: 05/22/18 10:04 Dose: 5 ml Neomycin/Polymyxin/Bacitracin (Neosporin Triple Antibiotic Oint) 0 gm TOP BID [facility] Last Admin: 05/22/18 18:57 Dose: 1 applic Nystatin (Nystop Topical Powder) 1 applic TOP BID [facility] Last Admin: 05/22/18 18:57 Dose: 1 applic Pantoprazole Sodium (Protonix Inj) 40 mg IVP Q12H [facility] Last Admin: 05/22/18 20:40 Dose: 40 mg Zinc Sulfate (Zinc Sulfate 220 Mg Cap) 220 mg PO DAILY [facility] Last Admin: 05/22/18 10:04 Dose: 220 mg - Labs Labs: 05/22/18 06:34 05/21/18 06:46 PT 18.4 SECONDS (9.7-12.2) H 05/09/18 09:10 INR 1.7 05/09/18 09:10 APTT 25 SECONDS (21-34) 05/10/18 23:10
[2018-05-23] MEDS: (Novolin R) Insulin Human Regular 100 units/ml vial SC SCH ×4 (00:25→18:37)
[2018-05-23] MEDS: (Novolog) Insulin Aspart, Recombinant 100 u/ml 10 ml vial SC SCH ×2 (00:48→05:18)
[2018-05-23] MEDS: Albuterol-Ipratrop 3 mg / 0.5 (3 ml) UD INH SCH ×4 (01:10→19:15)
[2018-05-23 06:56] LABS: BASO # 0.1 K/uL (0.0-0.2); BASO % 1.1 % (0.0-2.0); EOS # 0.3 K/uL (0.0-0.7); EOS % 2.8 % (0.0-4.0); LYMPH # 1.4 K/uL (1.0-4.3); LYMPH % 13.3 % (20.0-40.0); MEAN CELL VOLUME 90.3 fL (81.0-99.0); MEAN CORPUSCULAR HEMOGLOBIN 30.4 pg (27.0-31.0); MEAN CORPUSCULAR HGB CONC 33.7 g/dL (33.0-37.0); MEAN PLATELET VOLUME 7.6 fL (7.2-11.7); MONO # 0.9 K/uL (0.0-0.8); MONO % 8.6 % (0.0-10.0); NEUT # 7.7 K/uL (1.8-7.0); NEUT % 74.2 % (50.0-75.0); RBC 3.61 Mil/uL (3.80-5.20); WHITE BLOOD COUNT 10.3 K/uL (4.8-10.8)
[2018-05-23 07:07] LABS: ALB/GLOB RATIO 1.1 (1.0-2.1); ALBUMIN 3.9 g/dL (3.5-5.0); ALT/SGPT 30 U/L (9-52); AST/SGOT 21 U/L (14-36); BLOOD UREA NITROGEN 37 mg/dL (7-17); CALCIUM 10.6 mg/dl (8.6-10.4); GFR NON-AFRICAN AMERICAN > 60
[2018-05-23] MEDS ORDERED: Sodium Chloride 0.9% 1,000 ML IV SCH (08:45)
[2018-05-23] MEDS: (Lantus) Insulin Glargine, Recombinant SC SCH (10:33)
[2018-05-23] MEDS: Multiple Vitamins Oral Solution PO SCH (10:34)
[2018-05-23] MEDS: Bacitracin/Neomycin/Polymyxin Oint(30GM) TOP SCH ×2 (10:35→18:38)
--- NOTE | 2018-05-23 12:23 | CP.PCM.PN ---
Subjective - Date & Time of Evaluation Date of Evaluation: 05/23/18 Time of Evaluation: 12:21 - Subjective Subjective: f/u R bleed No further RB, melena, fever, SZ, hematuria, hemoptysis, tremor, CP Objective - Vital Signs/Intake and Output Vital Signs (last 24 hours): Temp Pulse Resp BP Pulse Ox 98.2 F 110 H 18 167/95 H 100 05/23/18 04:00 05/23/18 07:10 05/22/18 22:00 05/23/18 10:33 05/22/18 22:00 Intake and Output: 05/23/18 05/23/18 06:59 18:59 Intake Total 0 Balance 0 - Medications Medications: Current Medications Albuterol/Ipratropium (Duoneb 3 Mg/0.5 Mg (3 Ml) Ud) 3 ml INH RQ6 [facility] Last Admin: 05/23/18 07:10 Dose: 3 ml Ascorbic Acid (Vitamin C 500 Mg Tab) 1,000 mg PO DAILY [facility] Last Admin: 05/23/18 10:33 Dose: 1,000 mg Diltiazem HCl (Cardizem) 30 mg PO QID [facility] Last Admin: 05/23/18 10:33 Dose: 30 mg Sodium Chloride (Sodium Chloride 0.9%) 1,000 mls @ 50 mls/hr IV .Q20H [facility] Stop: 05/23/18 20:46 Last Admin: 05/23/18 10:35 Dose: 50 mls/hr Insulin Aspart (Novolog) 0 unit SC Q6 [facility]; Protocol Last Admin: 05/23/18 05:18 Dose: Not Given Insulin Glargine (Lantus) 20 unit SC DAILY [facility] Last Admin: 05/23/18 10:33 Dose: 20 u Insulin Human Regular (Novolin R) 0 unit SC Q6 [facility]; Protocol Last Admin: 05/23/18 05:27 Dose: 3 units Metoprolol Tartrate (Lopressor) 75 mg PO BID [facility] Last Admin: 05/23/18 10:33 Dose: 75 mg Multivitamins/Vitamin C (Multi-Delyn Liquid) 5 ml PO DAILY [facility] Last Admin: 05/23/18 10:34 Dose: 5 ml Neomycin/Polymyxin/Bacitracin (Neosporin Triple Antibiotic Oint) 0 gm TOP BID [facility] Last Admin: 05/23/18 10:35 Dose: 1 applic Nystatin (Nystop Topical Powder) 1 applic TOP BID [facility] Last Admin: 05/23/18 10:34 Dose: 1 applic Pantoprazole Sodium (Protonix Inj) 40 mg IVP Q12H [facility] Last Admin: 05/23/18 07:32 Dose: 40 mg Zinc Sulfate (Zinc Sulfate 220 Mg Cap) 220 mg PO DAILY [facility] Last Admin: 05/23/18 10:33 Dose: 220 mg - Labs Labs: 05/23/18 06:35 05/23/18 06:35 PT 18.4 SECONDS (9.7-12.2) H 05/09/18 09:10 INR 1.7 05/09/18 09:10 APTT 25 SECONDS (21-34) 05/10/18 23:10 - Constitutional Appears: Non-toxic - Respiratory Exam Respiratory Exam: Clear to Ausculation Bilateral - Cardiovascular Exam Cardiovascular Exam: RRR - GI/Abdominal Exam GI & Abdominal Exam: Soft, Normal Bowel Sounds. absent: Tenderness, Mass - Neurological Exam Neurological Exam: Alert. absent: Oriented x3 Assessment and Plan (1) Altered mental status Status: Acute (2) Sepsis Status: Acute (3) Anxiety Status: Acute (4) CAD (coronary artery disease) Status: Acute (5) Diabetes 1.5, managed as type 2 Status: Acute (6) Esophageal stricture Status: Acute (7) Achalasia Status: Chronic (8) Diabetes Status: Chronic (9) Anemia Status: Acute (10) GI bleed Assessment & Plan: No upper GI bleed now RB- mild- likely hemorrhoids. May have beed related to prolonged diarrhea she had. Status: Acute (11) Elevated transaminase level Status: Acute (12) Diarrhea Status: Acute
--- NOTE | 2018-05-23 20:26 | CP.PCM.PN ---
Subjective - Date & Time of Evaluation Date of Evaluation: 05/23/18 Time of Evaluation: 15:25 - Subjective Subjective: dictated Objective - Vital Signs/Intake and Output Vital Signs (last 24 hours): Temp Pulse Resp BP Pulse Ox 98.1 F 87 0 L 137/64 100 05/23/18 16:00 05/23/18 19:00 05/23/18 19:00 05/23/18 18:36 05/23/18 19:00 Intake and Output: 05/23/18 05/24/18 18:59 06:59 Intake Total 930 Output Total 200 Balance 730 - Medications Medications: Current Medications Albuterol/Ipratropium (Duoneb 3 Mg/0.5 Mg (3 Ml) Ud) 3 ml INH RQ6 [facility] Last Admin: 05/23/18 19:15 Dose: 3 ml Ascorbic Acid (Vitamin C 500 Mg Tab) 1,000 mg PO DAILY [facility] Last Admin: 05/23/18 10:33 Dose: 1,000 mg Diltiazem HCl (Cardizem) 30 mg PO QID [facility] Last Admin: 05/23/18 18:37 Dose: 30 mg Sodium Chloride (Sodium Chloride 0.9%) 1,000 mls @ 50 mls/hr IV .Q20H [facility] Stop: 05/23/18 20:46 Last Admin: 05/23/18 10:35 Dose: 50 mls/hr Insulin Glargine (Lantus) 20 unit SC DAILY [facility] Last Admin: 05/23/18 10:33 Dose: 20 u Insulin Human Regular (Novolin R) 0 unit SC Q6 [facility]; Protocol Last Admin: 05/23/18 18:37 Dose: 3 units Metoprolol Tartrate (Lopressor) 75 mg PO BID [facility] Last Admin: 05/23/18 18:36 Dose: 75 mg Multivitamins/Vitamin C (Multi-Delyn Liquid) 5 ml PO DAILY [facility] Last Admin: 05/23/18 10:34 Dose: 5 ml Neomycin/Polymyxin/Bacitracin (Neosporin Triple Antibiotic Oint) 0 gm TOP BID [facility] Last Admin: 05/23/18 18:38 Dose: 1 applic Nystatin (Nystop Topical Powder) 1 applic TOP BID [facility] Last Admin: 05/23/18 18:36 Dose: 1 applic Pantoprazole Sodium (Protonix Inj) 40 mg IVP Q12H [facility] Last Admin: 05/23/18 20:02 Dose: 40 mg Zinc Sulfate (Zinc Sulfate 220 Mg Cap) 220 mg PO DAILY [facility] Last Admin: 05/23/18 10:33 Dose: 220 mg - Labs Labs: 05/23/18 06:35 05/23/18 06:35 PT 18.4 SECONDS (9.7-12.2) H 05/09/18 09:10 INR 1.7 05/09/18 09:10 APTT 25 SECONDS (21-34) 05/10/18 23:10 Assessment and Plan (1) Respiratory failure Status: Acute (2) Infection of gastrostomy site Status: Acute (3) Ischemic hepatitis Status: Acute (4) Anemia Status: Acute
--- NOTE | 2018-05-23 23:55 | CP.PCM.PN ---
Subjective - Date & Time of Evaluation Date of Evaluation: 05/23/18 Time of Evaluation: 18:30 - Subjective Subjective: Patient seen and evaluated No cardiac events noted Objective - Vital Signs/Intake and Output Vital Signs (last 24 hours): Temp Pulse Resp BP Pulse Ox 99.1 F 87 0 L 137/64 100 05/23/18 20:00 05/23/18 23:36 05/23/18 19:00 05/23/18 18:36 05/23/18 19:00 Intake and Output: 05/23/18 05/24/18 18:59 06:59 Intake Total 930 Output Total 200 Balance 730 - Medications Medications: Current Medications Albuterol/Ipratropium (Duoneb 3 Mg/0.5 Mg (3 Ml) Ud) 3 ml INH RQ6 [facility] Last Admin: 05/23/18 19:15 Dose: 3 ml Ascorbic Acid (Vitamin C 500 Mg Tab) 1,000 mg PO DAILY [facility] Last Admin: 05/23/18 10:33 Dose: 1,000 mg Diltiazem HCl (Cardizem) 30 mg PO QID [facility] Last Admin: 05/23/18 21:52 Dose: 30 mg Insulin Glargine (Lantus) 20 unit SC DAILY [facility] Last Admin: 05/23/18 10:33 Dose: 20 u Insulin Human Regular (Novolin R) 0 unit SC Q6 [facility]; Protocol Last Admin: 05/23/18 18:37 Dose: 3 units Metoprolol Tartrate (Lopressor) 75 mg PO BID [facility] Last Admin: 05/23/18 18:36 Dose: 75 mg Multivitamins/Vitamin C (Multi-Delyn Liquid) 5 ml PO DAILY [facility] Last Admin: 05/23/18 10:34 Dose: 5 ml Neomycin/Polymyxin/Bacitracin (Neosporin Triple Antibiotic Oint) 0 gm TOP BID [facility] Last Admin: 05/23/18 18:38 Dose: 1 applic Nystatin (Nystop Topical Powder) 1 applic TOP BID [facility] Last Admin: 05/23/18 18:36 Dose: 1 applic Pantoprazole Sodium (Protonix Inj) 40 mg IVP Q12H [facility] Last Admin: 05/23/18 20:02 Dose: 40 mg Zinc Sulfate (Zinc Sulfate 220 Mg Cap) 220 mg PO DAILY [facility] Last Admin: 05/23/18 10:33 Dose: 220 mg - Labs Labs: 05/23/18 06:35 05/23/18 06:35 PT 18.4 SECONDS (9.7-12.2) H 05/09/18 09:10 INR 1.7 05/09/18 09:10 APTT 25 SECONDS (21-34) 05/10/18 23:10
[2018-05-24] MEDS: (Novolin R) Insulin Human Regular 100 units/ml vial SC SCH ×4 (00:26→17:59)
[2018-05-24] MEDS: Albuterol-Ipratrop 3 mg / 0.5 (3 ml) UD INH SCH ×4 (01:11→20:09)
--- NOTE | 2018-05-24 01:42 | PN ---
DATE: 05/23/2018 SUBJECTIVE: The patient is drowsy. Her daughter is at the bedside. She is told that her mother is improving. She has no more bleeding, no fever, no hematuria. She is however drowsy. PHYSICAL EXAMINATION: VITAL SIGNS: T-max is 98.2, saturation was good. Her heart rate is 87, blood pressure 137/64, respirations , and saturation is 100%. NECK: Supple. LUNGS: Clear. HEART: S1, S2, regular. ABDOMEN: Soft. PEG tube site appeared to have now no new discharge and still had old redness but nothing new and no drainage. EXTREMITIES: With foot protectors ASSESSMENT AND PLAN: The patient has improved clinically and she is off antibiotics at this time, remains on nystatin and neomycin. Her daughter was at the bedside. She is stable from Infectious Diseases point of view at this time. She is off the ventilator. She does have history of achalasia and esophageal stricture, coronary artery disease, diabetes. She still remains however drowsy. Val Jones MD
[2018-05-24] MEDS: Multiple Vitamins Oral Solution PO SCH (09:27)
[2018-05-24] MEDS: (Lantus) Insulin Glargine, Recombinant SC SCH (09:28)
[2018-05-24] MEDS: Bacitracin/Neomycin/Polymyxin Oint(30GM) TOP SCH ×2 (10:00→17:39)
--- NOTE | 2018-05-24 10:05 | CP.PCM.PN ---
Subjective - Date & Time of Evaluation Date of Evaluation: 05/24/18 Time of Evaluation: 10:02 - Subjective Subjective: F/U GI Bleed D/W RN- no visible GI bleeding Tolerating Glucerna tube feeds Objective - Vital Signs/Intake and Output Vital Signs (last 24 hours): Temp Pulse Resp BP Pulse Ox 97.8 F 100 H 22 119/42 L 100 05/24/18 08:00 05/24/18 08:00 05/24/18 08:00 05/24/18 09:28 05/24/18 08:00 Intake and Output: 05/24/18 05/24/18 06:59 18:59 Intake Total 1100 Output Total 250 Balance 850 - Medications Medications: Current Medications Albuterol/Ipratropium (Duoneb 3 Mg/0.5 Mg (3 Ml) Ud) 3 ml INH RQ6 [facility] Last Admin: 05/24/18 07:05 Dose: 3 ml Ascorbic Acid (Vitamin C 500 Mg Tab) 1,000 mg PO DAILY [facility] Last Admin: 05/24/18 09:28 Dose: 1,000 mg Diltiazem HCl (Cardizem) 30 mg PO QID [facility] Last Admin: 05/24/18 09:27 Dose: 30 mg Insulin Glargine (Lantus) 20 unit SC DAILY [facility] Last Admin: 05/24/18 09:28 Dose: 20 u Insulin Human Regular (Novolin R) 0 unit SC Q6 [facility]; Protocol Last Admin: 05/24/18 06:15 Dose: 4 units Metoprolol Tartrate (Lopressor) 75 mg PO BID [facility] Last Admin: 05/24/18 09:28 Dose: 75 mg Multivitamins/Vitamin C (Multi-Delyn Liquid) 5 ml PO DAILY [facility] Last Admin: 05/24/18 09:27 Dose: 5 ml Neomycin/Polymyxin/Bacitracin (Neosporin Triple Antibiotic Oint) 0 gm TOP BID [facility] Last Admin: 05/24/18 10:00 Dose: 1 applic Nystatin (Nystop Topical Powder) 1 applic TOP BID [facility] Last Admin: 05/24/18 09:26 Dose: 1 applic Pantoprazole Sodium (Protonix Inj) 40 mg IVP Q12H [facility] Last Admin: 05/24/18 08:00 Dose: 40 mg Zinc Sulfate (Zinc Sulfate 220 Mg Cap) 220 mg PO DAILY [facility] Last Admin: 05/24/18 09:29 Dose: 220 mg - Labs Labs: 05/23/18 06:35 05/23/18 06:35 PT 18.4 SECONDS (9.7-12.2) H 05/09/18 09:10 INR 1.7 05/09/18 09:10 APTT 25 SECONDS (21-34) 05/10/18 23:10 - Constitutional Appears: Well, Chronically Ill - Respiratory Exam Respiratory Exam: NORMAL BREATHING PATTERN - Cardiovascular Exam Cardiovascular Exam: Tachycardia - GI/Abdominal Exam GI & Abdominal Exam: Soft. absent: Tenderness Additional comments: Excoriation and erythema around GT is improving - Psychiatric Exam Psychiatric exam: Flat Affect - Skin Skin Exam: Normal Color Assessment and Plan (1) Diabetic ketoacidosis Status: Acute (2) GI bleed Assessment & Plan: stable DU Change Protonix to GT Status: Acute (3) Sepsis Status: Acute (4) Electrolyte abnormality Status: Acute (5) Ischemic hepatitis Assessment & Plan: resolved Status: Acute (6) Respiratory failure with hypoxia Status: Acute (7) Infection of gastrostomy site Assessment & Plan: Gradually resolving with local care Status: Acute
--- NOTE | 2018-05-24 19:28 | CP.PCM.PN ---
Subjective - Date & Time of Evaluation Date of Evaluation: 05/24/18 Time of Evaluation: 08:30 - Subjective Subjective: Patient seen and evaluated No cardiac events noted Objective - Vital Signs/Intake and Output Vital Signs (last 24 hours): Temp Pulse Resp BP Pulse Ox 97.8 F 100 H 22 119/42 L 100 05/24/18 08:00 05/24/18 08:00 05/24/18 08:00 05/24/18 09:28 05/24/18 08:00 Intake and Output: 05/24/18 05/24/18 06:59 18:59 Intake Total 1100 Output Total 250 Balance 850 - Medications Medications: Current Medications Albuterol/Ipratropium (Duoneb 3 Mg/0.5 Mg (3 Ml) Ud) 3 ml INH RQ6 [facility] Last Admin: 05/24/18 07:05 Dose: 3 ml Ascorbic Acid (Vitamin C 500 Mg Tab) 1,000 mg PO DAILY [facility] Last Admin: 05/24/18 09:28 Dose: 1,000 mg Diltiazem HCl (Cardizem) 30 mg PO QID [facility] Last Admin: 05/24/18 09:27 Dose: 30 mg Insulin Glargine (Lantus) 20 unit SC DAILY [facility] Last Admin: 05/24/18 09:28 Dose: 20 u Insulin Human Regular (Novolin R) 0 unit SC Q6 [facility]; Protocol Last Admin: 05/24/18 06:15 Dose: 4 units Metoprolol Tartrate (Lopressor) 75 mg PO BID [facility] Last Admin: 05/24/18 09:28 Dose: 75 mg Multivitamins/Vitamin C (Multi-Delyn Liquid) 5 ml PO DAILY [facility] Last Admin: 05/24/18 09:27 Dose: 5 ml Neomycin/Polymyxin/Bacitracin (Neosporin Triple Antibiotic Oint) 0 gm TOP BID [facility] Last Admin: 05/24/18 10:00 Dose: 1 applic Nystatin (Nystop Topical Powder) 1 applic TOP BID [facility] Last Admin: 05/24/18 09:26 Dose: 1 applic Pantoprazole Sodium (Protonix Inj) 40 mg IVP Q12H [facility] Last Admin: 05/24/18 08:00 Dose: 40 mg Zinc Sulfate (Zinc Sulfate 220 Mg Cap) 220 mg PO DAILY [facility] Last Admin: 05/24/18 09:29 Dose: 220 mg - Labs Labs: 05/23/18 06:35 05/23/18 06:35 PT 18.4 SECONDS (9.7-12.2) H 05/09/18 09:10 INR 1.7 05/09/18 09:10 APTT 25 SECONDS (21-34) 05/10/18 23:10 - Constitutional Appears: Well, Chronically Ill - Respiratory Exam Respiratory Exam: NORMAL BREATHING PATTERN - Cardiovascular Exam Cardiovascular Exam: Tachycardia - GI/Abdominal Exam GI & Abdominal Exam: Soft. absent: Tenderness Additional comments: Excoriation and erythema around GT is improving - Psychiatric Exam Psychiatric exam: Flat Affect - Skin Skin Exam: Normal Color Assessment and Plan (1) CAD hx of stents Status: Stable (2) GI bleed Assessment & Plan: stable DU Change Protonix to GT Status: Acute (3) Sepsis Status: Acute (4) Electrolyte abnormality Status: Acute (5) Ischemic hepatitis Assessment & Plan: resolved Status: Acute (6) Respiratory failure with hypoxia Status: Acute (7) Infection of gastrostomy site Assessment & Plan: Gradually resolving with local care Status: Acute Objective - Vital Signs/Intake and Output Vital Signs (last 24 hours): Temp Pulse Resp BP Pulse Ox 97.9 F 108 H 24 149/82 100 05/24/18 16:00 05/24/18 17:53 05/24/18 17:53 05/24/18 17:56 05/24/18 17:53 Intake and Output: 05/24/18 05/25/18 18:59 06:59 Intake Total 880 Balance 880 - Medications Medications: Current Medications Albuterol/Ipratropium (Duoneb 3 Mg/0.5 Mg (3 Ml) Ud) 3 ml INH RQ6 [facility] Ascorbic Acid (Vitamin C 500 Mg Tab) 1,000 mg PO DAILY [facility] Last Admin: 05/24/18 09:28 Dose: 1,000 mg Diltiazem HCl (Cardizem) 30 mg PO QID [facility] Last Admin: 05/24/18 17:57 Dose: 30 mg Insulin Glargine (Lantus) 20 unit SC DAILY [facility] Last Admin: 05/24/18 09:28 Dose: 20 u Insulin Human Regular (Novolin R) 0 unit SC Q6 [facility]; Protocol Last Admin: 05/24/18 17:59 Dose: 2 units Metoprolol Tartrate (Lopressor) 75 mg PO BID [facility] Last Admin: 05/24/18 17:56 Dose: 75 mg Multivitamins/Vitamin C (Multi-Delyn Liquid) 5 ml PO DAILY [facility] Last Admin: 05/24/18 09:27 Dose: 5 ml Neomycin/Polymyxin/Bacitracin (Neosporin Triple Antibiotic Oint) 0 gm TOP BID [facility] Last Admin: 05/24/18 17:39 Dose: 1 applic Nystatin (Nystop Topical Powder) 1 applic TOP BID [facility] Last Admin: 05/24/18 17:39 Dose: 1 applic Pantoprazole Sodium (Protonix Susp) 40 mg PO 0600 [facility] Zinc Sulfate (Zinc Sulfate 220 Mg Cap) 220 mg PO DAILY [facility] Last Admin: 05/24/18 09:29 Dose: 220 mg - Labs Labs: 05/23/18 06:35 05/23/18 06:35 PT 18.4 SECONDS (9.7-12.2) H 05/09/18 09:10 INR 1.7 05/09/18 09:10 APTT 25 SECONDS (21-34) 05/10/18 23:10
[2018-05-25] MEDS: (Novolin R) Insulin Human Regular 100 units/ml vial SC SCH ×4 (00:33→19:43)
[2018-05-25] MEDS: Albuterol-Ipratrop 3 mg / 0.5 (3 ml) UD INH SCH ×4 (01:16→20:27)
[2018-05-25] MEDS: Pantoprazole 40 mg Susp UD PO SCH (06:05)
[2018-05-25] MEDS: Multiple Vitamins Oral Solution PO SCH (09:42)
[2018-05-25] MEDS: (Lantus) Insulin Glargine, Recombinant SC SCH (09:42)
[2018-05-25] MEDS: Bacitracin/Neomycin/Polymyxin Oint(30GM) TOP SCH ×2 (09:43→17:47)
--- NOTE | 2018-05-25 11:32 | CP.PCM.PN ---
Subjective - Date & Time of Evaluation Date of Evaluation: 05/25/18 Time of Evaluation: 11:15 - Subjective Subjective: f/u GI bleed, diarrhea No Rb, melena, fever, SZ, hematuria, hemoptysis, tremor, JACOBSEN, cough Objective - Vital Signs/Intake and Output Vital Signs (last 24 hours): Temp Pulse Resp BP Pulse Ox 97.7 F 98 H 18 134/56 L 100 05/25/18 08:00 05/25/18 08:00 05/25/18 08:00 05/25/18 09:42 05/25/18 08:00 Intake and Output: 05/25/18 05/25/18 06:59 18:59 Intake Total 570 Output Total 150 Balance 420 - Medications Medications: Current Medications Albuterol/Ipratropium (Duoneb 3 Mg/0.5 Mg (3 Ml) Ud) 3 ml INH RQ6 [facility] Last Admin: 05/25/18 08:24 Dose: 3 ml Ascorbic Acid (Vitamin C 500 Mg Tab) 1,000 mg PO DAILY [facility] Last Admin: 05/25/18 09:42 Dose: 1,000 mg Diltiazem HCl (Cardizem) 30 mg PO QID [facility] Last Admin: 05/25/18 09:45 Dose: 30 mg Insulin Glargine (Lantus) 20 unit SC DAILY [facility] Last Admin: 05/25/18 09:42 Dose: 20 u Insulin Human Regular (Novolin R) 0 unit SC Q6 [facility]; Protocol Last Admin: 05/25/18 06:05 Dose: 2 units Metoprolol Tartrate (Lopressor) 75 mg PO BID [facility] Last Admin: 05/25/18 09:42 Dose: 75 mg Multivitamins/Vitamin C (Multi-Delyn Liquid) 5 ml PO DAILY [facility] Last Admin: 05/25/18 09:42 Dose: 5 ml Neomycin/Polymyxin/Bacitracin (Neosporin Triple Antibiotic Oint) 0 gm TOP BID [facility] Last Admin: 05/25/18 09:43 Dose: 1 applic Nystatin (Nystop Topical Powder) 1 applic TOP BID [facility] Last Admin: 05/25/18 09:43 Dose: 1 applic Pantoprazole Sodium (Protonix Susp) 40 mg PO 0600 [facility] Last Admin: 05/25/18 06:05 Dose: 40 mg Zinc Sulfate (Zinc Sulfate 220 Mg Cap) 220 mg PO DAILY [facility] Last Admin: 05/25/18 09:42 Dose: 220 mg - Labs Labs: 05/23/18 06:35 05/23/18 06:35 PT 18.4 SECONDS (9.7-12.2) H 05/09/18 09:10 INR 1.7 05/09/18 09:10 APTT 25 SECONDS (21-34) 05/10/18 23:10 - Constitutional Appears: Non-toxic - Respiratory Exam Respiratory Exam: Clear to Ausculation Bilateral - Cardiovascular Exam Cardiovascular Exam: RRR - GI/Abdominal Exam GI & Abdominal Exam: Soft, Normal Bowel Sounds. absent: Tenderness, Mass - Neurological Exam Neurological Exam: Alert, Awake. absent: Oriented x3 Assessment and Plan (1) Altered mental status Status: Acute (2) Sepsis Status: Acute (3) Anxiety Status: Acute (4) CAD (coronary artery disease) Status: Acute (5) Diabetes 1.5, managed as type 2 Status: Acute (6) Esophageal stricture Assessment & Plan: achalasia Status: Acute (7) Achalasia Status: Chronic (8) Diabetes Status: Chronic (9) Anemia Status: Acute (10) GI bleed Assessment & Plan: stable Status: Acute (11) Elevated transaminase level Assessment & Plan: better Status: Acute (12) Diarrhea Status: Acute (13) Infection of gastrostomy site Status: Acute
--- NOTE | 2018-05-25 11:50 | CP.PCM.PN ---
Subjective - Date & Time of Evaluation Date of Evaluation: 05/24/18 Time of Evaluation: 11:50 - Subjective Subjective: patient is morning sitting up in the chair. Family at bedside. She's not in any distress. Vital signs stable. But persistent diarrhea noted On examination: Vital signs stable. Mild tachycardia Chest good air entry Minimal cough noted. Tolerating the feeding but diarrhea present Labs reviewed Nonspecific x-rays normal Assessment: 87-year-old female with multiple medical problems admitted with the acute hemorrhagic shock. Improved. Active respirated failure. Improving. Extubated. On nasal cannula. Tolerating. Sepsis also noted. Will start the patient on physical therapy be Rehabilitation evaluation possibly Objective - Vital Signs/Intake and Output Vital Signs (last 24 hours): Temp Pulse Resp BP Pulse Ox 97.7 F 98 H 18 134/56 L 100 05/25/18 08:00 05/25/18 08:00 05/25/18 08:00 05/25/18 09:42 05/25/18 08:00 Intake and Output: 05/25/18 05/25/18 06:59 18:59 Intake Total 570 Output Total 150 Balance 420 - Medications Medications: Current Medications Albuterol/Ipratropium (Duoneb 3 Mg/0.5 Mg (3 Ml) Ud) 3 ml INH RQ6 [facility] Last Admin: 05/25/18 08:24 Dose: 3 ml Ascorbic Acid (Vitamin C 500 Mg Tab) 1,000 mg PO DAILY [facility] Last Admin: 05/25/18 09:42 Dose: 1,000 mg Diltiazem HCl (Cardizem) 30 mg PO QID [facility] Last Admin: 05/25/18 09:45 Dose: 30 mg Insulin Glargine (Lantus) 20 unit SC DAILY [facility] Last Admin: 05/25/18 09:42 Dose: 20 u Insulin Human Regular (Novolin R) 0 unit SC Q6 [facility]; Protocol Last Admin: 05/25/18 06:05 Dose: 2 units Metoprolol Tartrate (Lopressor) 75 mg PO BID [facility] Last Admin: 05/25/18 09:42 Dose: 75 mg Multivitamins/Vitamin C (Multi-Delyn Liquid) 5 ml PO DAILY [facility] Last Admin: 05/25/18 09:42 Dose: 5 ml Neomycin/Polymyxin/Bacitracin (Neosporin Triple Antibiotic Oint) 0 gm TOP BID [facility] Last Admin: 05/25/18 09:43 Dose: 1 applic Nystatin (Nystop Topical Powder) 1 applic TOP BID [facility] Last Admin: 05/25/18 09:43 Dose: 1 applic Pantoprazole Sodium (Protonix Susp) 40 mg PO 0600 [facility] Last Admin: 05/25/18 06:05 Dose: 40 mg Zinc Sulfate (Zinc Sulfate 220 Mg Cap) 220 mg PO DAILY [facility] Last Admin: 05/25/18 09:42 Dose: 220 mg - Labs Labs: 05/23/18 06:35 05/23/18 06:35 PT 18.4 SECONDS (9.7-12.2) H 05/09/18 09:10 INR 1.7 05/09/18 09:10 APTT 25 SECONDS (21-34) 05/10/18 23:10
--- NOTE | 2018-05-25 11:50 | CP.PCM.PN ---
Subjective - Date & Time of Evaluation Date of Evaluation: 05/25/18 Time of Evaluation: 11:50 - Subjective Subjective: patient is morning sitting up in the chair. Family at bedside. She's not in any distress. Vital signs stable. diarrhea slightly better On examination: Vital signs stable. Mild tachycardia Chest good air entry Minimal cough noted. Tolerating the feeding but diarrhea present labs normal. Assessment: 87-year-old female with multiple medical problems admitted with the acute hemorrhagic shock. Improved. Active respiratory failure. extubated On nasal cannula. Tolerating. Sepsis also noted improved Will start the patient on physical therapy Rehabilitation evaluation possibly Objective - Vital Signs/Intake and Output Vital Signs (last 24 hours): Temp Pulse Resp BP Pulse Ox 97.7 F 98 H 18 134/56 L 100 05/25/18 08:00 05/25/18 08:00 05/25/18 08:00 05/25/18 09:42 05/25/18 08:00 Intake and Output: 05/25/18 05/25/18 06:59 18:59 Intake Total 570 Output Total 150 Balance 420 - Medications Medications: Current Medications Albuterol/Ipratropium (Duoneb 3 Mg/0.5 Mg (3 Ml) Ud) 3 ml INH RQ6 [facility] Last Admin: 05/25/18 08:24 Dose: 3 ml Ascorbic Acid (Vitamin C 500 Mg Tab) 1,000 mg PO DAILY [facility] Last Admin: 05/25/18 09:42 Dose: 1,000 mg Diltiazem HCl (Cardizem) 30 mg PO QID [facility] Last Admin: 05/25/18 09:45 Dose: 30 mg Insulin Glargine (Lantus) 20 unit SC DAILY [facility] Last Admin: 05/25/18 09:42 Dose: 20 u Insulin Human Regular (Novolin R) 0 unit SC Q6 [facility]; Protocol Last Admin: 05/25/18 06:05 Dose: 2 units Metoprolol Tartrate (Lopressor) 75 mg PO BID [facility] Last Admin: 05/25/18 09:42 Dose: 75 mg Multivitamins/Vitamin C (Multi-Delyn Liquid) 5 ml PO DAILY [facility] Last Admin: 05/25/18 09:42 Dose: 5 ml Neomycin/Polymyxin/Bacitracin (Neosporin Triple Antibiotic Oint) 0 gm TOP BID [facility] Last Admin: 05/25/18 09:43 Dose: 1 applic Nystatin (Nystop Topical Powder) 1 applic TOP BID [facility] Last Admin: 05/25/18 09:43 Dose: 1 applic Pantoprazole Sodium (Protonix Susp) 40 mg PO 0600 [facility] Last Admin: 05/25/18 06:05 Dose: 40 mg Zinc Sulfate (Zinc Sulfate 220 Mg Cap) 220 mg PO DAILY [facility] Last Admin: 05/25/18 09:42 Dose: 220 mg - Labs Labs: 05/23/18 06:35 05/23/18 06:35 PT 18.4 SECONDS (9.7-12.2) H 05/09/18 09:10 INR 1.7 05/09/18 09:10 APTT 25 SECONDS (21-34) 05/10/18 23:10
--- NOTE | 2018-05-25 11:50 | CP.PCM.PN ---
Subjective - Date & Time of Evaluation Date of Evaluation: 05/23/18 Time of Evaluation: 11:50 - Subjective Subjective: patient is morning sitting up in the chair. Family at bedside. She's not in any distress. Vital signs stable. But persistent diarrhea noted On examination: Vital signs stable. Mild tachycardia Chest good air entry Minimal cough noted. Tolerating the feeding but diarrhea present Labs reviewed Nonspecific x-rays normal Assessment: 87-year-old female with multiple medical problems admitted with the acute hemorrhagic shock. Improved. Active respirated failure. Improving. Extubated. On nasal cannula. Tolerating. Sepsis also noted. Will start the patient on physical therapy be Rehabilitation evaluation possibly Objective - Vital Signs/Intake and Output Vital Signs (last 24 hours): Temp Pulse Resp BP Pulse Ox 97.7 F 98 H 18 134/56 L 100 05/25/18 08:00 05/25/18 08:00 05/25/18 08:00 05/25/18 09:42 05/25/18 08:00 Intake and Output: 05/25/18 05/25/18 06:59 18:59 Intake Total 570 Output Total 150 Balance 420 - Medications Medications: Current Medications Albuterol/Ipratropium (Duoneb 3 Mg/0.5 Mg (3 Ml) Ud) 3 ml INH RQ6 [facility] Last Admin: 05/25/18 08:24 Dose: 3 ml Ascorbic Acid (Vitamin C 500 Mg Tab) 1,000 mg PO DAILY [facility] Last Admin: 05/25/18 09:42 Dose: 1,000 mg Diltiazem HCl (Cardizem) 30 mg PO QID [facility] Last Admin: 05/25/18 09:45 Dose: 30 mg Insulin Glargine (Lantus) 20 unit SC DAILY [facility] Last Admin: 05/25/18 09:42 Dose: 20 u Insulin Human Regular (Novolin R) 0 unit SC Q6 [facility]; Protocol Last Admin: 05/25/18 06:05 Dose: 2 units Metoprolol Tartrate (Lopressor) 75 mg PO BID [facility] Last Admin: 05/25/18 09:42 Dose: 75 mg Multivitamins/Vitamin C (Multi-Delyn Liquid) 5 ml PO DAILY [facility] Last Admin: 05/25/18 09:42 Dose: 5 ml Neomycin/Polymyxin/Bacitracin (Neosporin Triple Antibiotic Oint) 0 gm TOP BID [facility] Last Admin: 05/25/18 09:43 Dose: 1 applic Nystatin (Nystop Topical Powder) 1 applic TOP BID [facility] Last Admin: 05/25/18 09:43 Dose: 1 applic Pantoprazole Sodium (Protonix Susp) 40 mg PO 0600 [facility] Last Admin: 05/25/18 06:05 Dose: 40 mg Zinc Sulfate (Zinc Sulfate 220 Mg Cap) 220 mg PO DAILY [facility] Last Admin: 05/25/18 09:42 Dose: 220 mg - Labs Labs: 05/23/18 06:35 05/23/18 06:35 PT 18.4 SECONDS (9.7-12.2) H 05/09/18 09:10 INR 1.7 05/09/18 09:10 APTT 25 SECONDS (21-34) 05/10/18 23:10
--- NOTE | 2018-05-25 18:44 | CP.PCM.PN ---
Subjective - Date & Time of Evaluation Date of Evaluation: 05/25/18 Time of Evaluation: 10:05 - Subjective Subjective: Patient seen and evaluated No cardiac events noted Physical Examination - Constitutional Appears: Well, Chronically Ill - Respiratory Exam Respiratory Exam: NORMAL BREATHING PATTERN - Cardiovascular Exam Cardiovascular Exam: Tachycardia - GI/Abdominal Exam GI & Abdominal Exam: Soft. absent: Tenderness Additional comments: Excoriation and erythema around GT is improving - Psychiatric Exam Psychiatric exam: Flat Affect - Skin Skin Exam: Normal Color Assessment and Plan (1) CAD hx of stents Status: Stable (2) GI bleed Assessment & Plan: stable DU Change Protonix to GT Status: Acute (3) Sepsis Status: Acute (4) Electrolyte abnormality Status: Acute (5) Ischemic hepatitis Assessment & Plan: resolved Status: Acute (6) Respiratory failure with hypoxia Status: Acute (7) Infection of gastrostomy site Assessment & Plan: Gradually resolving with local care Status: Acute Objective - Vital Signs/Intake and Output Vital Signs (last 24 hours): Temp Pulse Resp BP Pulse Ox 98.8 F 79 20 118/46 L 100 05/25/18 16:00 05/25/18 16:00 05/25/18 16:00 05/25/18 17:46 05/25/18 16:00 Intake and Output: 05/25/18 05/25/18 06:59 18:59 Intake Total 570 570 Output Total 150 Balance 420 570 - Medications Medications: Current Medications Albuterol/Ipratropium (Duoneb 3 Mg/0.5 Mg (3 Ml) Ud) 3 ml INH RQ6 [facility] Last Admin: 05/25/18 13:48 Dose: 3 ml Ascorbic Acid (Vitamin C 500 Mg Tab) 1,000 mg PO DAILY [facility] Last Admin: 05/25/18 09:42 Dose: 1,000 mg Diltiazem HCl (Cardizem) 30 mg PO QID [facility] Last Admin: 05/25/18 17:47 Dose: 30 mg Insulin Glargine (Lantus) 20 unit SC DAILY [facility] Last Admin: 05/25/18 09:42 Dose: 20 u Insulin Human Regular (Novolin R) 0 unit SC Q6 [facility]; Protocol Last Admin: 05/25/18 11:55 Dose: 3 units Metoprolol Tartrate (Lopressor) 75 mg PO BID [facility] Last Admin: 05/25/18 17:46 Dose: 75 mg Multivitamins/Vitamin C (Multi-Delyn Liquid) 5 ml PO DAILY [facility] Last Admin: 05/25/18 09:42 Dose: 5 ml Neomycin/Polymyxin/Bacitracin (Neosporin Triple Antibiotic Oint) 0 gm TOP BID [facility] Last Admin: 05/25/18 17:47 Dose: 1 applic Nystatin (Nystop Topical Powder) 1 applic TOP BID [facility] Last Admin: 05/25/18 17:48 Dose: 1 applic Pantoprazole Sodium (Protonix Susp) 40 mg PO 0600 [facility] Last Admin: 05/25/18 06:05 Dose: 40 mg Zinc Sulfate (Zinc Sulfate 220 Mg Cap) 220 mg PO DAILY [facility] Last Admin: 05/25/18 09:42 Dose: 220 mg - Labs Labs: 05/23/18 06:35 05/23/18 06:35 PT 18.4 SECONDS (9.7-12.2) H 05/09/18 09:10 INR 1.7 05/09/18 09:10 APTT 25 SECONDS (21-34) 05/10/18 23:10
[2018-05-26] MEDS: (Novolin R) Insulin Human Regular 100 units/ml vial SC SCH ×4 (00:23→18:00)
[2018-05-26] MEDS: Albuterol-Ipratrop 3 mg / 0.5 (3 ml) UD INH SCH ×4 (02:47→20:07)
[2018-05-26] MEDS: Pantoprazole 40 mg Susp UD PO SCH (05:25)
[2018-05-26] MEDS: (Lantus) Insulin Glargine, Recombinant SC SCH (10:29)
[2018-05-26] MEDS: Bacitracin/Neomycin/Polymyxin Oint(30GM) TOP SCH ×2 (10:45→18:26)
[2018-05-26] MEDS: Multiple Vitamins Oral Solution PO SCH (10:56)
--- NOTE | 2018-05-26 17:40 | CP.PCM.PN ---
Subjective - Date & Time of Evaluation Date of Evaluation: 05/26/18 Time of Evaluation: 14:30 - Subjective Subjective: Patient seen and evaluated Comfortable and sitting in chair Daughter at bedside Physical Examination - Constitutional Appears: Well, Chronically Ill - Respiratory Exam Respiratory Exam: NORMAL BREATHING PATTERN - Cardiovascular Exam Cardiovascular Exam: Tachycardia - GI/Abdominal Exam GI & Abdominal Exam: Soft. absent: Tenderness Additional comments: Excoriation and erythema around GT is improving - Psychiatric Exam Psychiatric exam: Flat Affect - Skin Skin Exam: Normal Color Assessment and Plan (1) CAD hx of stents Status: Stable (2) GI bleed Assessment & Plan: stable DU Change Protonix to GT Status: Acute (3) Sepsis Status: Acute (4) Electrolyte abnormality Status: Acute (5) Ischemic hepatitis Assessment & Plan: resolved Status: Acute (6) Respiratory failure with hypoxia Status: Acute (7) Infection of gastrostomy site Assessment & Plan: Gradually resolving with local care Status: Acute Objective - Vital Signs/Intake and Output Vital Signs (last 24 hours): Temp Pulse Resp BP Pulse Ox 97.7 F 95 H 8 L 99/44 L 99 05/26/18 12:00 05/26/18 16:00 05/26/18 16:00 05/26/18 15:53 05/26/18 16:00 Intake and Output: 05/26/18 05/26/18 06:59 18:59 Intake Total 530 Output Total 600 Balance -70 - Medications Medications: Current Medications Albuterol/Ipratropium (Duoneb 3 Mg/0.5 Mg (3 Ml) Ud) 3 ml INH RQ6 [facility] Last Admin: 05/26/18 13:50 Dose: 3 ml Ascorbic Acid (Vitamin C 500 Mg Tab) 1,000 mg PO DAILY [facility] Last Admin: 05/26/18 10:28 Dose: 1,000 mg Diltiazem HCl (Cardizem) 30 mg PO QID [facility] Last Admin: 05/26/18 15:05 Dose: 30 mg Insulin Glargine (Lantus) 20 unit SC DAILY [facility] Last Admin: 05/26/18 10:29 Dose: 20 u Insulin Human Regular (Novolin R) 0 unit SC Q6 [facility]; Protocol Last Admin: 05/26/18 12:35 Dose: 2 units Metoprolol Tartrate (Lopressor) 75 mg PO BID [facility] Last Admin: 05/26/18 10:26 Dose: 75 mg Multivitamins/Vitamin C (Multi-Delyn Liquid) 5 ml PO DAILY [facility] Last Admin: 05/26/18 10:56 Dose: 5 ml Neomycin/Polymyxin/Bacitracin (Neosporin Triple Antibiotic Oint) 0 gm TOP BID [facility] Last Admin: 05/26/18 10:45 Dose: 1 applic Nystatin (Nystop Topical Powder) 1 applic TOP BID [facility] Last Admin: 05/26/18 10:45 Dose: 1 applic Pantoprazole Sodium (Protonix Susp) 40 mg PO 0600 [facility] Last Admin: 05/26/18 05:25 Dose: 40 mg Zinc Sulfate (Zinc Sulfate 220 Mg Cap) 220 mg PO DAILY [facility] Last Admin: 05/26/18 10:26 Dose: 220 mg - Labs Labs: 05/23/18 06:35 05/23/18 06:35 PT 18.4 SECONDS (9.7-12.2) H 05/09/18 09:10 INR 1.7 05/09/18 09:10 APTT 25 SECONDS (21-34) 05/10/18 23:10
[2018-05-27] MEDS: (Novolin R) Insulin Human Regular 100 units/ml vial SC SCH ×4 (00:11→18:06)
[2018-05-27] MEDS: Albuterol-Ipratrop 3 mg / 0.5 (3 ml) UD INH SCH ×4 (01:06→19:47)
[2018-05-27 06:07] LABS: MEAN CELL VOLUME 89.6 fL (81.0-99.0); MEAN CORPUSCULAR HEMOGLOBIN 30.1 pg (27.0-31.0); MEAN CORPUSCULAR HGB CONC 33.6 g/dL (33.0-37.0)
[2018-05-27 06:26] LABS: HEMOGLOBIN 11.2 g/dL (11.0-16.0); MEAN PLATELET VOLUME 7.8 fL (7.2-11.7); RBC 3.72 Mil/uL (3.80-5.20); RED CELL DISTRIBUTION WIDTH 17.1 % (11.5-14.5); WHITE BLOOD COUNT 10.1 K/uL (4.8-10.8)
[2018-05-27 06:36] LABS: ALB/GLOB RATIO 1.2 (1.0-2.1); ALBUMIN 3.8 g/dL (3.5-5.0); ALT/SGPT 21 U/L (9-52); AST/SGOT 27 U/L (14-36); BLOOD UREA NITROGEN 34 mg/dL (7-17); CALCIUM 10.4 mg/dl (8.6-10.4); GFR NON-AFRICAN AMERICAN > 60
[2018-05-27] MEDS: Pantoprazole 40 mg Susp UD PO SCH (06:42)
[2018-05-27] MEDS: (Lantus) Insulin Glargine, Recombinant SC SCH (10:09)
[2018-05-27] MEDS: Multiple Vitamins Oral Solution PO SCH (10:10)
[2018-05-27 10:43] LABS: EOS # 0.2 K/uL (0.0-0.7); LYMPH # 1.5 K/uL (1.0-4.3); MONO # 1.3 K/uL (0.0-0.8); NEUT # 7.1 K/uL (1.8-7.0)
[2018-05-27] MEDS: Bacitracin/Neomycin/Polymyxin Oint(30GM) TOP SCH ×2 (10:47→18:00)
--- NOTE | 2018-05-27 15:30 | CP.PCM.PN ---
Subjective - Date & Time of Evaluation Date of Evaluation: 05/27/18 Time of Evaluation: 15:28 - Subjective Subjective: No reported diarrhea or GI bleding On GT feeds hgb stable GT cellulitis clearing up Will sign off Objective - Vital Signs/Intake and Output Vital Signs (last 24 hours): Temp Pulse Resp BP Pulse Ox 97.4 F L 85 21 137/68 100 05/27/18 12:00 05/27/18 12:31 05/27/18 12:31 05/27/18 12:31 05/27/18 12:31 Intake and Output: 05/27/18 05/27/18 06:59 18:59 Intake Total 250 220 Output Total 400 0 Balance -150 220 - Medications Medications: Current Medications Albuterol/Ipratropium (Duoneb 3 Mg/0.5 Mg (3 Ml) Ud) 3 ml INH RQ6 [facility] Last Admin: 05/27/18 13:44 Dose: 3 ml Ascorbic Acid (Vitamin C 500 Mg Tab) 1,000 mg PO DAILY [facility] Last Admin: 05/27/18 10:10 Dose: 1,000 mg Insulin Glargine (Lantus) 20 unit SC DAILY [facility] Last Admin: 05/27/18 10:09 Dose: 20 u Insulin Human Regular (Novolin R) 0 unit SC Q6 [facility]; Protocol Last Admin: 05/27/18 13:01 Dose: 3 units Metoprolol Tartrate (Lopressor) 75 mg PO BID [facility] Last Admin: 05/27/18 10:09 Dose: 75 mg Multivitamins/Vitamin C (Multi-Delyn Liquid) 5 ml PO DAILY [facility] Last Admin: 05/27/18 10:10 Dose: 5 ml Neomycin/Polymyxin/Bacitracin (Neosporin Triple Antibiotic Oint) 0 gm TOP BID [facility] Last Admin: 05/27/18 10:47 Dose: 1 applic Nystatin (Nystop Topical Powder) 1 applic TOP BID [facility] Last Admin: 05/27/18 10:47 Dose: 1 applic Pantoprazole Sodium (Protonix Susp) 40 mg PO 0600 [facility] Last Admin: 05/27/18 06:42 Dose: 40 mg Zinc Sulfate (Zinc Sulfate 220 Mg Cap) 220 mg PO DAILY [facility] Last Admin: 05/27/18 10:09 Dose: 220 mg - Labs Labs: 05/27/18 05:56 05/27/18 05:56 PT 18.4 SECONDS (9.7-12.2) H 05/09/18 09:10 INR 1.7 05/09/18 09:10 APTT 25 SECONDS (21-34) 05/10/18 23:10 - Constitutional Appears: No Acute Distress, Chronically Ill - Respiratory Exam Respiratory Exam: NORMAL BREATHING PATTERN - Cardiovascular Exam Cardiovascular Exam: REGULAR RHYTHM - GI/Abdominal Exam GI & Abdominal Exam: Soft. absent: Tenderness Assessment and Plan (1) Diabetic ketoacidosis Status: Acute (2) GI bleed Assessment & Plan: stable Continue PPI indefinitely Status: Acute (3) Sepsis Status: Acute (4) Electrolyte abnormality Status: Acute (5) Ischemic hepatitis Assessment & Plan: resolved Status: Acute (6) Respiratory failure with hypoxia Status: Acute (7) Infection of gastrostomy site Assessment & Plan: resolving with local care Status: Acute
--- NOTE | 2018-05-27 23:32 | CP.PCM.PN ---
Subjective - Date & Time of Evaluation Date of Evaluation: 05/27/18 Time of Evaluation: 18:30 - Subjective Subjective: Patient seen and evaluated Comfortable and no cardiac events noted Physical Examination - Constitutional Appears: Well, Chronically Ill - Respiratory Exam Respiratory Exam: NORMAL BREATHING PATTERN - Cardiovascular Exam Cardiovascular Exam: Tachycardia - GI/Abdominal Exam GI & Abdominal Exam: Soft. absent: Tenderness Additional comments: Excoriation and erythema around GT is improving - Psychiatric Exam Psychiatric exam: Flat Affect - Skin Skin Exam: Normal Color Assessment and Plan (1) CAD hx of stents Status: Stable (2) GI bleed Assessment & Plan: stable DU Change Protonix to GT Status: Acute (3) Sepsis Status: Acute (4) Electrolyte abnormality Status: Acute (5) Ischemic hepatitis Assessment & Plan: resolved Status: Acute (6) Respiratory failure with hypoxia Status: Acute (7) Infection of gastrostomy site Assessment & Plan: Gradually resolving with local care Status: Acute Objective - Vital Signs/Intake and Output Vital Signs (last 24 hours): Temp Pulse Resp BP Pulse Ox 97.6 F 100 H 12 148/79 100 05/27/18 20:00 05/27/18 17:24 05/27/18 17:24 05/27/18 18:01 05/27/18 20:00 Intake and Output: 05/27/18 05/28/18 18:59 06:59 Intake Total 460 Output Total 0 Balance 460 - Medications Medications: Current Medications Albuterol/Ipratropium (Duoneb 3 Mg/0.5 Mg (3 Ml) Ud) 3 ml INH RQ6 [facility] Last Admin: 05/27/18 19:47 Dose: 3 ml Ascorbic Acid (Vitamin C 500 Mg Tab) 1,000 mg PO DAILY [facility] Last Admin: 05/27/18 10:10 Dose: 1,000 mg Diltiazem HCl (Cardizem) 30 mg PO QID [facility] Last Admin: 05/27/18 21:22 Dose: 30 mg Insulin Glargine (Lantus) 20 unit SC DAILY [facility] Last Admin: 05/27/18 10:09 Dose: 20 u Insulin Human Regular (Novolin R) 0 unit SC Q6 [facility]; Protocol Last Admin: 05/27/18 18:06 Dose: 2 units Metoprolol Tartrate (Lopressor) 75 mg PO BID [facility] Last Admin: 05/27/18 18:01 Dose: 75 mg Multivitamins (Hexavitamin) 5 tab PO DAILY [facility] Neomycin/Polymyxin/Bacitracin (Neosporin Triple Antibiotic Oint) 0 gm TOP BID [facility] Last Admin: 05/27/18 18:00 Dose: 1 applic Nystatin (Nystop Topical Powder) 1 applic TOP BID [facility] Last Admin: 05/27/18 18:09 Dose: 1 applic Pantoprazole Sodium (Protonix Susp) 40 mg PO 0600 [facility] Last Admin: 05/27/18 06:42 Dose: 40 mg Zinc Sulfate (Zinc Sulfate 220 Mg Cap) 220 mg PO DAILY [facility] Last Admin: 05/27/18 10:09 Dose: 220 mg - Labs Labs: 05/27/18 05:56 05/27/18 05:56 PT 18.4 SECONDS (9.7-12.2) H 05/09/18 09:10 INR 1.7 05/09/18 09:10 APTT 25 SECONDS (21-34) 05/10/18 23:10
[2018-05-28] MEDS: (Novolin R) Insulin Human Regular 100 units/ml vial SC SCH ×4 (00:33→18:35)
[2018-05-28] MEDS: Albuterol-Ipratrop 3 mg / 0.5 (3 ml) UD INH SCH ×4 (01:23→20:05)
[2018-05-28] MEDS: Pantoprazole 40 mg Susp UD PO SCH (06:08)
[2018-05-28] MEDS: (Lantus) Insulin Glargine, Recombinant SC SCH (09:40)
[2018-05-28] MEDS: Multiple Vitamins Oral Solution PO SCH (09:42)
[2018-05-28] MEDS: Bacitracin/Neomycin/Polymyxin Oint(30GM) TOP SCH ×2 (09:42→19:05)
--- NOTE | 2018-05-28 21:29 | CP.PCM.PN ---
Subjective - Date & Time of Evaluation Date of Evaluation: 05/28/18 Time of Evaluation: 21:28 - Subjective Subjective: pt is awake and responding doing well no new symptoms tolerating feeding less diarrhea vital stable chest clear edema noted on antibiotic plan for discharge to rehab if possible Objective - Vital Signs/Intake and Output Vital Signs (last 24 hours): Temp Pulse Resp BP Pulse Ox 98.2 F 95 H 16 163/74 H 100 05/28/18 20:00 05/28/18 20:00 05/28/18 16:00 05/28/18 19:02 05/28/18 16:00 Intake and Output: 05/28/18 05/29/18 18:59 06:59 Intake Total 530 Output Total 400 Balance 130 - Medications Medications: Current Medications Albuterol/Ipratropium (Duoneb 3 Mg/0.5 Mg (3 Ml) Ud) 3 ml INH RQ6 [facility] Last Admin: 05/28/18 20:05 Dose: 3 ml Ascorbic Acid (Vitamin C 500 Mg Tab) 1,000 mg PO DAILY [facility] Last Admin: 05/28/18 09:41 Dose: 1,000 mg Diltiazem HCl (Cardizem) 30 mg PO QID [facility] Last Admin: 05/28/18 19:04 Dose: 30 mg Insulin Glargine (Lantus) 20 unit SC DAILY [facility] Last Admin: 05/28/18 09:40 Dose: 20 u Insulin Human Regular (Novolin R) 0 unit SC Q6 [facility]; Protocol Last Admin: 05/28/18 18:35 Dose: 4 units Metoprolol Tartrate (Lopressor) 75 mg PO BID [facility] Last Admin: 05/28/18 19:02 Dose: 75 mg Multivitamins/Vitamin C (Multi-Delyn Liquid) 5 ml PO DAILY [facility] Last Admin: 05/28/18 09:42 Dose: 5 ml Neomycin/Polymyxin/Bacitracin (Neosporin Triple Antibiotic Oint) 0 gm TOP BID [facility] Last Admin: 05/28/18 19:05 Dose: 1 applic Nystatin (Nystop Topical Powder) 1 applic TOP BID [facility] Last Admin: 05/28/18 19:05 Dose: 1 applic Pantoprazole Sodium (Protonix Susp) 40 mg PO 0600 [facility] Last Admin: 05/28/18 06:08 Dose: 40 mg Zinc Sulfate (Zinc Sulfate 220 Mg Cap) 220 mg PO DAILY [facility] Last Admin: 05/28/18 09:41 Dose: 220 mg - Labs Labs: 05/27/18 05:56 05/27/18 05:56 PT 18.4 SECONDS (9.7-12.2) H 05/09/18 09:10 INR 1.7 05/09/18 09:10 APTT 25 SECONDS (21-34) 05/10/18 23:10
--- NOTE | 2018-05-28 22:14 | CP.PCM.PN ---
Subjective - Date & Time of Evaluation Date of Evaluation: 05/28/18 Time of Evaluation: 08:20 - Subjective Subjective: Patient seen and evaluated Comfortable and no cardiac events noted Physical Examination - Constitutional Appears: Well, Chronically Ill - Respiratory Exam Respiratory Exam: NORMAL BREATHING PATTERN - Cardiovascular Exam Cardiovascular Exam: Tachycardia - GI/Abdominal Exam GI & Abdominal Exam: Soft. absent: Tenderness Additional comments: Excoriation and erythema around GT is improving - Psychiatric Exam Psychiatric exam: Flat Affect - Skin Skin Exam: Normal Color Assessment and Plan (1) CAD hx of stents Status: Stable (2) GI bleed Assessment & Plan: stable DU Change Protonix to GT Status: Acute (3) Sepsis Status: Acute (4) Electrolyte abnormality Status: Acute (5) Ischemic hepatitis Assessment & Plan: resolved Status: Acute (6) Respiratory failure with hypoxia Status: Acute (7) Infection of gastrostomy site Assessment & Plan: Gradually resolving with local care Status: Acute Objective - Vital Signs/Intake and Output Vital Signs (last 24 hours): Temp Pulse Resp BP Pulse Ox 98.2 F 93 H 16 153/71 H 100 05/28/18 20:00 05/28/18 22:00 05/28/18 22:00 05/28/18 19:53 05/28/18 22:00 Intake and Output: 05/28/18 05/29/18 18:59 06:59 Intake Total 530 Output Total 400 Balance 130 - Medications Medications: Current Medications Albuterol/Ipratropium (Duoneb 3 Mg/0.5 Mg (3 Ml) Ud) 3 ml INH RQ6 [facility] Last Admin: 05/28/18 20:05 Dose: 3 ml Ascorbic Acid (Vitamin C 500 Mg Tab) 1,000 mg PO DAILY [facility] Last Admin: 05/28/18 09:41 Dose: 1,000 mg Diltiazem HCl (Cardizem) 30 mg PO QID [facility] Last Admin: 05/28/18 22:13 Dose: 30 mg Insulin Glargine (Lantus) 20 unit SC DAILY [facility] Last Admin: 05/28/18 09:40 Dose: 20 u Insulin Human Regular (Novolin R) 0 unit SC Q6 [facility]; Protocol Last Admin: 05/28/18 18:35 Dose: 4 units Metoprolol Tartrate (Lopressor) 75 mg PO BID [facility] Last Admin: 05/28/18 19:02 Dose: 75 mg Multivitamins/Vitamin C (Multi-Delyn Liquid) 5 ml PO DAILY [facility] Last Admin: 05/28/18 09:42 Dose: 5 ml Neomycin/Polymyxin/Bacitracin (Neosporin Triple Antibiotic Oint) 0 gm TOP BID [facility] Last Admin: 05/28/18 19:05 Dose: 1 applic Nystatin (Nystop Topical Powder) 1 applic TOP BID [facility] Last Admin: 05/28/18 19:05 Dose: 1 applic Pantoprazole Sodium (Protonix Susp) 40 mg PO 0600 [facility] Last Admin: 05/28/18 06:08 Dose: 40 mg Zinc Sulfate (Zinc Sulfate 220 Mg Cap) 220 mg PO DAILY [facility] Last Admin: 05/28/18 09:41 Dose: 220 mg - Labs Labs: 05/27/18 05:56 05/27/18 05:56 PT 18.4 SECONDS (9.7-12.2) H 05/09/18 09:10 INR 1.7 05/09/18 09:10 APTT 25 SECONDS (21-34) 05/10/18 23:10
--- NOTE | 2018-05-28 22:31 | CP.PCM.PN ---
Subjective - Date & Time of Evaluation Date of Evaluation: 05/28/18 Time of Evaluation: 15:15 - Subjective Subjective: dictated Objective - Vital Signs/Intake and Output Vital Signs (last 24 hours): Temp Pulse Resp BP Pulse Ox 98.2 F 93 H 16 153/71 H 100 05/28/18 20:00 05/28/18 22:00 05/28/18 22:00 05/28/18 19:53 05/28/18 22:00 Intake and Output: 05/28/18 05/29/18 18:59 06:59 Intake Total 530 Output Total 400 Balance 130 - Medications Medications: Current Medications Albuterol/Ipratropium (Duoneb 3 Mg/0.5 Mg (3 Ml) Ud) 3 ml INH RQ6 [facility] Last Admin: 05/28/18 20:05 Dose: 3 ml Ascorbic Acid (Vitamin C 500 Mg Tab) 1,000 mg PO DAILY [facility] Last Admin: 05/28/18 09:41 Dose: 1,000 mg Diltiazem HCl (Cardizem) 30 mg PO QID [facility] Last Admin: 05/28/18 22:13 Dose: 30 mg Insulin Glargine (Lantus) 20 unit SC DAILY [facility] Last Admin: 05/28/18 09:40 Dose: 20 u Insulin Human Regular (Novolin R) 0 unit SC Q6 [facility]; Protocol Last Admin: 05/28/18 18:35 Dose: 4 units Metoprolol Tartrate (Lopressor) 75 mg PO BID [facility] Last Admin: 05/28/18 19:02 Dose: 75 mg Multivitamins/Vitamin C (Multi-Delyn Liquid) 5 ml PO DAILY [facility] Last Admin: 05/28/18 09:42 Dose: 5 ml Neomycin/Polymyxin/Bacitracin (Neosporin Triple Antibiotic Oint) 0 gm TOP BID [facility] Last Admin: 05/28/18 19:05 Dose: 1 applic Nystatin (Nystop Topical Powder) 1 applic TOP BID [facility] Last Admin: 05/28/18 19:05 Dose: 1 applic Pantoprazole Sodium (Protonix Susp) 40 mg PO 0600 [facility] Last Admin: 05/28/18 06:08 Dose: 40 mg Zinc Sulfate (Zinc Sulfate 220 Mg Cap) 220 mg PO DAILY [facility] Last Admin: 05/28/18 09:41 Dose: 220 mg - Labs Labs: 05/27/18 05:56 05/27/18 05:56 PT 18.4 SECONDS (9.7-12.2) H 05/09/18 09:10 INR 1.7 05/09/18 09:10 APTT 25 SECONDS (21-34) 05/10/18 23:10 Assessment and Plan (1) Respiratory failure Status: Acute (2) Infection of gastrostomy site Status: Acute (3) Ischemic hepatitis Status: Acute (4) Anemia Status: Acute
[2018-05-29] MEDS: (Novolin R) Insulin Human Regular 100 units/ml vial SC SCH ×5 (00:48→23:37)
[2018-05-29] MEDS: Albuterol-Ipratrop 3 mg / 0.5 (3 ml) UD INH SCH ×4 (01:26→20:11)
--- NOTE | 2018-05-29 02:04 | PN ---
DATE: 05/28/2018 INFECTIOUS DISEASE FOLLOWUP SUBJECTIVE: The patient was seen today. After several days, the patient is doing well. The daughter was sitting at the bedside, and she says mother is coming along. She was on oxygen otherwise. PHYSICAL EXAMINATION: HEENT: Head is atraumatic. NECK: Supple. LUNGS: Clear. HEART: S1 and S2 are regular. ABDOMEN: Soft. Nontender. PEG site is unremarkable now. EXTREMITIES: Have decreasing edema. LABORATORY DATA: Labs were noted. ASSESSMENT AND PLAN: She is off antibiotics now. She needs rehab and is waiting for probable rehab. I think when she goes there, the locally applied Neosporin can be discontinued if there is . Val Jones MD
[2018-05-29] MEDS: Pantoprazole 40 mg Susp UD PO SCH (06:38)
[2018-05-29] MEDS: Bacitracin/Neomycin/Polymyxin Oint(30GM) TOP SCH ×2 (10:00→17:49)
[2018-05-29] MEDS: Multiple Vitamins Oral Solution PO SCH (10:32)
[2018-05-29] MEDS: (Lantus) Insulin Glargine, Recombinant SC SCH (10:32)
--- NOTE | 2018-05-29 23:10 | CP.PCM.PN ---
Subjective - Date & Time of Evaluation Date of Evaluation: 05/29/18 Time of Evaluation: 17:15 - Subjective Subjective: Patient seen and evaluated Comfortable and no cardiac events noted Physical Examination - Constitutional Appears: Well, Chronically Ill - Respiratory Exam Respiratory Exam: NORMAL BREATHING PATTERN - Cardiovascular Exam Cardiovascular Exam: Tachycardia - GI/Abdominal Exam GI & Abdominal Exam: Soft. absent: Tenderness Additional comments: Excoriation and erythema around GT is improving - Psychiatric Exam Psychiatric exam: Flat Affect - Skin Skin Exam: Normal Color Assessment and Plan (1) CAD hx of stents Status: Stable (2) GI bleed Assessment & Plan: stable DU Change Protonix to GT Status: Acute (3) Sepsis Status: Acute (4) Electrolyte abnormality Status: Acute (5) Ischemic hepatitis Assessment & Plan: resolved Status: Acute (6) Respiratory failure with hypoxia Status: Acute (7) Infection of gastrostomy site Assessment & Plan: Gradually resolving with local care Status: Acute Objective - Vital Signs/Intake and Output Vital Signs (last 24 hours): Temp Pulse Resp BP Pulse Ox 97.6 F 97 H 19 132/66 98 05/29/18 16:00 05/29/18 17:48 05/29/18 17:48 05/29/18 17:48 05/29/18 16:00 Intake and Output: 05/29/18 05/30/18 18:59 06:59 Intake Total 580 Output Total 300 Balance 280 - Medications Medications: Current Medications Ascorbic Acid (Vitamin C 500 Mg Tab) 1,000 mg PO DAILY [facility] Last Admin: 05/29/18 09:56 Dose: 1,000 mg Diltiazem HCl (Cardizem) 30 mg PO QID [facility] Last Admin: 05/29/18 22:47 Dose: 30 mg Insulin Glargine (Lantus) 20 unit SC DAILY [facility] Last Admin: 05/29/18 10:32 Dose: 20 u Insulin Human Regular (Novolin R) 0 unit SC Q6 [facility]; Protocol Last Admin: 05/29/18 18:50 Dose: 3 units Metoprolol Tartrate (Lopressor) 75 mg PO BID [facility] Last Admin: 05/29/18 17:47 Dose: 75 mg Multivitamins/Vitamin C (Multi-Delyn Liquid) 5 ml PO DAILY [facility] Last Admin: 05/29/18 10:32 Dose: 5 ml Neomycin/Polymyxin/Bacitracin (Neosporin Triple Antibiotic Oint) 0 gm TOP BID [facility] Last Admin: 05/29/18 17:49 Dose: 1 applic Nystatin (Nystop Topical Powder) 1 applic TOP BID [facility] Last Admin: 05/29/18 17:50 Dose: 1 applic Pantoprazole Sodium (Protonix Susp) 40 mg PO 0600 [facility] Last Admin: 05/29/18 06:38 Dose: 40 mg Zinc Sulfate (Zinc Sulfate 220 Mg Cap) 220 mg PO DAILY [facility] Last Admin: 05/29/18 09:56 Dose: 220 mg - Labs Labs: 05/27/18 05:56 05/27/18 05:56 PT 18.4 SECONDS (9.7-12.2) H 05/09/18 09:10 INR 1.7 05/09/18 09:10 APTT 25 SECONDS (21-34) 05/10/18 23:10
[2018-05-30 04:30] LABS: BASO # 0.1 K/uL (0.0-0.2); BASO % 1.2 % (0.0-2.0); EOS # 0.4 K/uL (0.0-0.7); EOS % 3.5 % (0.0-4.0); HEMOGLOBIN 12.1 g/dL (11.0-16.0); MEAN CELL VOLUME 88.9 fL (81.0-99.0); MEAN CORPUSCULAR HEMOGLOBIN 29.6 pg (27.0-31.0); MEAN CORPUSCULAR HGB CONC 33.3 g/dL (33.0-37.0); MEAN PLATELET VOLUME 7.8 fL (7.2-11.7); MONO # 1.1 K/uL (0.0-0.8); MONO % 9.4 % (0.0-10.0); NEUT # 7.7 K/uL (1.8-7.0); NEUT % 67.9 % (50.0-75.0); NRBC % 0.1 % (0.0-2.0); RBC 4.07 Mil/uL (3.80-5.20); RED CELL DISTRIBUTION WIDTH 17.1 % (11.5-14.5); WHITE BLOOD COUNT 11.3 K/uL (4.8-10.8)
[2018-05-30 04:51] LABS: ALB/GLOB RATIO 1.1 (1.0-2.1); ALBUMIN 4.1 g/dL (3.5-5.0); ALT/SGPT 15 U/L (9-52); AST/SGOT 16 U/L (14-36); BLOOD UREA NITROGEN 40 mg/dL (7-17); CALCIUM 10.8 mg/dl (8.6-10.4); GFR NON-AFRICAN AMERICAN > 60
[2018-05-30] MEDS: (Novolin R) Insulin Human Regular 100 units/ml vial SC SCH ×3 (06:24→20:42)
[2018-05-30] MEDS: Pantoprazole 40 mg Susp UD PO SCH (06:24)
--- NOTE | 2018-05-30 06:44 | CP.PCM.PN ---
Subjective - Date & Time of Evaluation Date of Evaluation: 05/29/18 Time of Evaluation: 06:43 - Subjective Subjective: Patient is awake and responding. Comfortable. Not in any distress. Patient is tolerating the PEG feeding. Diarrhea occasionally noted On examination: Vital signs stable. Chest good air entry Regular heart sound Abdomen nontender Labs reviewed Nonspecific. We'll repeat the labs tomorrow Assessment: 87-year-old female with a history of achalasia cardia, diabetes, diabetic acidosis, hypertension, CAD, COPD, recurrent respiratory failure now admitted this time with the DKA, acute respiratory failure, GI bleed, currently tolerating the feeding, stable otherwise. Will continue the physical therapy. Out of bed to chair and will follow the patient Objective - Vital Signs/Intake and Output Vital Signs (last 24 hours): Temp Pulse Resp BP Pulse Ox 97.9 F 99 H 11 L 137/75 98 05/30/18 04:00 05/30/18 04:00 05/30/18 04:00 05/30/18 03:53 05/29/18 16:00 Intake and Output: 05/29/18 05/30/18 18:59 06:59 Intake Total 580 480 Output Total 300 Balance 280 480 - Medications Medications: Current Medications Ascorbic Acid (Vitamin C 500 Mg Tab) 1,000 mg PO DAILY [facility] Last Admin: 05/29/18 09:56 Dose: 1,000 mg Diltiazem HCl (Cardizem) 30 mg PO QID [facility] Last Admin: 05/29/18 22:47 Dose: 30 mg Insulin Glargine (Lantus) 20 unit SC DAILY [facility] Last Admin: 05/29/18 10:32 Dose: 20 u Insulin Human Regular (Novolin R) 0 unit SC Q6 [facility]; Protocol Last Admin: 05/30/18 06:24 Dose: 2 units Metoprolol Tartrate (Lopressor) 75 mg PO BID [facility] Last Admin: 05/29/18 17:47 Dose: 75 mg Multivitamins/Vitamin C (Multi-Delyn Liquid) 5 ml PO DAILY [facility] Last Admin: 05/29/18 10:32 Dose: 5 ml Neomycin/Polymyxin/Bacitracin (Neosporin Triple Antibiotic Oint) 0 gm TOP BID [facility] Last Admin: 05/29/18 17:49 Dose: 1 applic Nystatin (Nystop Topical Powder) 1 applic TOP BID [facility] Last Admin: 05/29/18 17:50 Dose: 1 applic Pantoprazole Sodium (Protonix Susp) 40 mg PO 0600 [facility] Last Admin: 05/30/18 06:24 Dose: 40 mg Zinc Sulfate (Zinc Sulfate 220 Mg Cap) 220 mg PO DAILY [facility] Last Admin: 05/29/18 09:56 Dose: 220 mg - Labs Labs: 05/30/18 04:20 05/30/18 04:20 PT 18.4 SECONDS (9.7-12.2) H 05/09/18 09:10 INR 1.7 05/09/18 09:10 APTT 25 SECONDS (21-34) 05/10/18 23:10
--- NOTE | 2018-05-30 06:44 | CP.PCM.PN ---
Subjective - Date & Time of Evaluation Date of Evaluation: 05/30/18 Time of Evaluation: 06:44 - Subjective Subjective: Patient is awake and responding. Comfortable. Not in any distress. Patient is tolerating the PEG feeding. Diarrhea occasionally noted On examination: Vital signs stable. Chest good air entry Regular heart sound Abdomen nontender Labs reviewed Nonspecific. We'll repeat the labs tomorrow Assessment: 87-year-old female with a history of achalasia cardia, diabetes, diabetic acidosis, hypertension, CAD, COPD, recurrent respiratory failure now admitted this time with the DKA, acute respiratory failure, GI bleed, currently tolerating the feeding, stable otherwise. Will continue the physical therapy. Out of bed to chair and will follow the patient Objective - Vital Signs/Intake and Output Vital Signs (last 24 hours): Temp Pulse Resp BP Pulse Ox 97.9 F 99 H 11 L 137/75 98 05/30/18 04:00 05/30/18 04:00 05/30/18 04:00 05/30/18 03:53 05/29/18 16:00 Intake and Output: 05/29/18 05/30/18 18:59 06:59 Intake Total 580 480 Output Total 300 Balance 280 480 - Medications Medications: Current Medications Ascorbic Acid (Vitamin C 500 Mg Tab) 1,000 mg PO DAILY [facility] Last Admin: 05/29/18 09:56 Dose: 1,000 mg Diltiazem HCl (Cardizem) 30 mg PO QID [facility] Last Admin: 05/29/18 22:47 Dose: 30 mg Insulin Glargine (Lantus) 20 unit SC DAILY [facility] Last Admin: 05/29/18 10:32 Dose: 20 u Insulin Human Regular (Novolin R) 0 unit SC Q6 [facility]; Protocol Last Admin: 05/30/18 06:24 Dose: 2 units Metoprolol Tartrate (Lopressor) 75 mg PO BID [facility] Last Admin: 05/29/18 17:47 Dose: 75 mg Multivitamins/Vitamin C (Multi-Delyn Liquid) 5 ml PO DAILY [facility] Last Admin: 05/29/18 10:32 Dose: 5 ml Neomycin/Polymyxin/Bacitracin (Neosporin Triple Antibiotic Oint) 0 gm TOP BID [facility] Last Admin: 05/29/18 17:49 Dose: 1 applic Nystatin (Nystop Topical Powder) 1 applic TOP BID [facility] Last Admin: 05/29/18 17:50 Dose: 1 applic Pantoprazole Sodium (Protonix Susp) 40 mg PO 0600 [facility] Last Admin: 05/30/18 06:24 Dose: 40 mg Zinc Sulfate (Zinc Sulfate 220 Mg Cap) 220 mg PO DAILY [facility] Last Admin: 05/29/18 09:56 Dose: 220 mg - Labs Labs: 05/30/18 04:20 05/30/18 04:20 PT 18.4 SECONDS (9.7-12.2) H 05/09/18 09:10 INR 1.7 05/09/18 09:10 APTT 25 SECONDS (21-34) 05/10/18 23:10
[2018-05-30] MEDS: Bacitracin/Neomycin/Polymyxin Oint(30GM) TOP SCH ×2 (09:51→20:02)
[2018-05-30] MEDS: (Lantus) Insulin Glargine, Recombinant SC SCH (09:51)
[2018-05-30] MEDS: Multiple Vitamins Oral Solution PO SCH (14:01)
[2018-05-31] MEDS: (Novolin R) Insulin Human Regular 100 units/ml vial SC SCH ×4 (00:32→18:19)
[2018-05-31] MEDS: Pantoprazole 40 mg Susp UD PO SCH (06:33)
--- NOTE | 2018-05-31 09:16 | CP.PCM.PN ---
Subjective - Date & Time of Evaluation Date of Evaluation: 05/31/18 Time of Evaluation: 09:14 - Subjective Subjective: pt is awake and responding cough noted no fever tolerating feeding chest good air entry regular hs abd soft no edema OOB to chair CXR to check PNA feeding aspiration precautions add duoneb off antibiotic added januvia to control glu contine to check sugar pt needs full support Objective - Vital Signs/Intake and Output Vital Signs (last 24 hours): Temp Pulse Resp BP Pulse Ox 97.1 F L 82 16 111/54 L 99 05/31/18 00:04 05/31/18 00:04 05/31/18 00:04 05/31/18 00:04 05/31/18 00:04 Intake and Output: 05/31/18 05/31/18 06:59 18:59 Intake Total 740 Output Total 200 Balance 540 - Medications Medications: Current Medications Ascorbic Acid (Vitamin C 500 Mg Tab) 1,000 mg PO DAILY [facility] Last Admin: 05/30/18 09:51 Dose: 1,000 mg Diltiazem HCl (Cardizem) 30 mg PO QID [facility] Last Admin: 05/30/18 20:00 Dose: 30 mg Insulin Glargine (Lantus) 20 unit SC DAILY [facility] Last Admin: 05/30/18 09:51 Dose: 20 u Insulin Human Regular (Novolin R) 0 unit SC Q6 [facility]; Protocol Last Admin: 05/31/18 06:31 Dose: 4 units Metoprolol Tartrate (Lopressor) 75 mg PO BID [facility] Last Admin: 05/30/18 20:00 Dose: 75 mg Multivitamins/Vitamin C (Multi-Delyn Liquid) 5 ml PO DAILY [facility] Last Admin: 05/30/18 14:01 Dose: 5 ml Neomycin/Polymyxin/Bacitracin (Neosporin Triple Antibiotic Oint) 0 gm TOP BID [facility] Last Admin: 05/30/18 20:02 Dose: 1 applic Nystatin (Nystop Topical Powder) 1 applic TOP BID [facility] Last Admin: 05/30/18 20:09 Dose: 1 applic Pantoprazole Sodium (Protonix Susp) 40 mg PO 0600 [facility] Last Admin: 05/31/18 06:33 Dose: 40 mg Zinc Sulfate (Zinc Sulfate 220 Mg Cap) 220 mg PO DAILY [facility] Last Admin: 05/30/18 09:51 Dose: 220 mg - Labs Labs: 05/30/18 04:20 05/30/18 04:20 PT 18.4 SECONDS (9.7-12.2) H 05/09/18 09:10 INR 1.7 05/09/18 09:10 APTT 25 SECONDS (21-34) 05/10/18 23:10
[2018-05-31] MEDS: Multiple Vitamins Oral Solution PO SCH (09:55)
[2018-05-31] MEDS: Bacitracin/Neomycin/Polymyxin Oint(30GM) TOP SCH ×2 (09:59→18:20)
[2018-05-31] MEDS: (Lantus) Insulin Glargine, Recombinant SC SCH (09:59)
--- NOTE | 2018-05-31 10:32 | RAD ---
Date of service: 05/31/2018 HISTORY: PNA COMPARISON: 05/18/2018. FINDINGS: Right PICC line terminates in the axillary vein. LUNGS: There are low lung volumes. There is redemonstration of mild pulmonary venous congestion. PLEURA: No pleural effusions or pneumothorax. CARDIOVASCULAR: The heart is normal in size. Atherosclerotic aortic arch calcifications are present. There is stable position of left-sided AICD. OSSEOUS STRUCTURES: Within normal limits for the patient's age. VISUALIZED UPPER ABDOMEN: Normal. OTHER FINDINGS: None. IMPRESSION: Persistent pulmonary venous congestion. No lobar pneumonia.
[2018-05-31] MEDS: Albuterol-Ipratrop 3 mg / 0.5 (3 ml) UD INH SCH (15:05)
--- NOTE | 2018-05-31 20:43 | CP.PCM.PN ---
Subjective - Date & Time of Evaluation Date of Evaluation: 05/31/18 Time of Evaluation: 15:10 - Subjective Subjective: Patient seen and evaluated Comfortable and no cardiac events noted Non verbal Physical Examination - Constitutional Appears: Well, Chronically Ill - Respiratory Exam Respiratory Exam: NORMAL BREATHING PATTERN - Cardiovascular Exam Cardiovascular Exam: Tachycardia - GI/Abdominal Exam GI & Abdominal Exam: Soft. absent: Tenderness Additional comments: Excoriation and erythema around GT is improving - Psychiatric Exam Psychiatric exam: Flat Affect - Skin Skin Exam: Normal Color Assessment and Plan (1) CAD hx of stents Status: Stable (2) GI bleed Assessment & Plan: stable DU Change Protonix to GT Status: Acute (3) Sepsis Status: Acute (4) Electrolyte abnormality Status: Acute (5) Ischemic hepatitis Assessment & Plan: resolved Status: Acute (6) Respiratory failure with hypoxia Status: Acute (7) Infection of gastrostomy site Assessment & Plan: Gradually resolving with local care Status: Acute Objective - Vital Signs/Intake and Output Vital Signs (last 24 hours): Temp Pulse Resp BP Pulse Ox 97.6 F 98 H 20 116/69 98 05/31/18 15:00 05/31/18 15:00 05/31/18 15:00 05/31/18 18:19 05/31/18 15:00 Intake and Output: 05/31/18 06/01/18 18:59 06:59 Intake Total 420 Output Total 300 Balance 120 - Medications Medications: Current Medications Albuterol/Ipratropium (Duoneb 3 Mg/0.5 Mg (3 Ml) Ud) 3 ml INH RQ8 [facility] Last Admin: 05/31/18 15:05 Dose: 3 ml Ascorbic Acid (Vitamin C 500 Mg Tab) 1,000 mg PO DAILY [facility] Last Admin: 05/31/18 09:56 Dose: 1,000 mg Diltiazem HCl (Cardizem) 30 mg PO QID [facility] Last Admin: 05/31/18 18:19 Dose: 30 mg Insulin Glargine (Lantus) 20 unit SC DAILY [facility] Last Admin: 05/31/18 09:59 Dose: 20 u Insulin Human Regular (Novolin R) 0 unit SC Q6 [facility]; Protocol Last Admin: 05/31/18 18:19 Dose: 2 units Metoprolol Tartrate (Lopressor) 75 mg PO BID [facility] Last Admin: 11/02/18 18:19 Dose: 75 mg Multivitamins/Vitamin C (Multi-Delyn Liquid) 5 ml PO DAILY [facility] Last Admin: 05/31/18 09:55 Dose: 5 ml Neomycin/Polymyxin/Bacitracin (Neosporin Triple Antibiotic Oint) 0 gm TOP BID [facility] Last Admin: 05/31/18 18:20 Dose: 1 applic Nystatin (Nystop Topical Powder) 1 applic TOP BID [facility] Last Admin: 05/31/18 18:20 Dose: 1 applic Pantoprazole Sodium (Protonix Susp) 40 mg PO 0600 [facility] Last Admin: 05/31/18 06:33 Dose: 40 mg Sitagliptin Phosphate (Januvia) 50 mg PO DAILY [facility] Last Admin: 05/31/18 10:02 Dose: 50 mg Zinc Sulfate (Zinc Sulfate 220 Mg Cap) 220 mg PO DAILY [facility] Last Admin: 05/31/18 09:55 Dose: 220 mg - Labs Labs: 05/30/18 04:20 05/30/18 04:20 PT 18.4 SECONDS (9.7-12.2) H 05/09/18 09:10 INR 1.7 05/09/18 09:10 APTT 25 SECONDS (21-34) 05/10/18 23:10
[2018-06-01] MEDS: Albuterol-Ipratrop 3 mg / 0.5 (3 ml) UD INH SCH ×3 (01:00→15:04)
[2018-06-01] MEDS: Pantoprazole 40 mg Susp UD PO SCH (06:20)
[2018-06-01] MEDS: (Novolin R) Insulin Human Regular 100 units/ml vial SC SCH ×4 (06:31→18:00)
[2018-06-01] MEDS: Multiple Vitamins Oral Solution PO SCH (09:30)
[2018-06-01] MEDS: Bacitracin/Neomycin/Polymyxin Oint(30GM) TOP SCH ×2 (09:32→18:00)
[2018-06-01] MEDS: (Lantus) Insulin Glargine, Recombinant SC SCH (09:45)
--- NOTE | 2018-06-01 22:26 | CP.PCM.PN ---
Subjective - Date & Time of Evaluation Date of Evaluation: 06/01/18 Time of Evaluation: 18:10 - Subjective Subjective: Patient seen and evaluated Comfortable and no cardiac events noted Non verbal Physical Examination - Constitutional Appears: Well, Chronically Ill - Respiratory Exam Respiratory Exam: NORMAL BREATHING PATTERN - Cardiovascular Exam Cardiovascular Exam: Tachycardia - GI/Abdominal Exam GI & Abdominal Exam: Soft. absent: Tenderness Additional comments: Excoriation and erythema around GT is improving - Psychiatric Exam Psychiatric exam: Flat Affect - Skin Skin Exam: Normal Color Assessment and Plan (1) CAD hx of stents Status: Stable (2) GI bleed Assessment & Plan: stable DU Change Protonix to GT Status: Acute (3) Sepsis Status: Acute (4) Electrolyte abnormality Status: Acute (5) Ischemic hepatitis Assessment & Plan: resolved Status: Acute (6) Respiratory failure with hypoxia Status: Acute (7) Infection of gastrostomy site Assessment & Plan: Gradually resolving with local care Status: Acute Objective - Vital Signs/Intake and Output Vital Signs (last 24 hours): Temp Pulse Resp BP Pulse Ox 97.3 F L 99 H 20 116/81 98 06/01/18 15:00 06/01/18 15:00 06/01/18 15:00 06/01/18 18:02 06/01/18 15:00 Intake and Output: 06/01/18 06/02/18 18:59 05:59 Intake Total 420 420 Output Total 0 0 Balance 420 420 - Medications Medications: Current Medications Albuterol/Ipratropium (Duoneb 3 Mg/0.5 Mg (3 Ml) Ud) 3 ml INH RQ8 [facility] Last Admin: 06/01/18 15:04 Dose: 3 ml Ascorbic Acid (Vitamin C 500 Mg Tab) 1,000 mg PO DAILY [facility] Last Admin: 06/01/18 09:30 Dose: 1,000 mg Diltiazem HCl (Cardizem) 30 mg PO QID [facility] Last Admin: 06/01/18 21:29 Dose: 30 mg Insulin Glargine (Lantus) 20 unit SC DAILY [facility] Last Admin: 06/01/18 09:45 Dose: 20 u Insulin Human Regular (Novolin R) 0 unit SC Q6 [facility]; Protocol Last Admin: 06/01/18 18:00 Dose: 3 units Metoprolol Tartrate (Lopressor) 75 mg PO BID [facility] Last Admin: 06/01/18 18:02 Dose: 75 mg Multivitamins/Vitamin C (Multi-Delyn Liquid) 5 ml PO DAILY [facility] Last Admin: 06/01/18 09:30 Dose: 5 ml Neomycin/Polymyxin/Bacitracin (Neosporin Triple Antibiotic Oint) 0 gm TOP BID [facility] Last Admin: 06/01/18 18:00 Dose: 1 applic Nystatin (Nystop Topical Powder) 1 applic TOP BID [facility] Last Admin: 06/01/18 18:12 Dose: 1 applic Pantoprazole Sodium (Protonix Susp) 40 mg PO 0600 [facility] Last Admin: 06/01/18 06:20 Dose: 40 mg Sitagliptin Phosphate (Januvia) 50 mg PO DAILY [facility] Last Admin: 06/01/18 09:30 Dose: 50 mg Zinc Sulfate (Zinc Sulfate 220 Mg Cap) 220 mg PO DAILY [facility] Last Admin: 06/01/18 09:31 Dose: 220 mg - Labs Labs: 05/30/18 04:20 05/30/18 04:20 PT 18.4 SECONDS (9.7-12.2) H 05/09/18 09:10 INR 1.7 05/09/18 09:10 APTT 25 SECONDS (21-34) 05/10/18 23:10
[2018-06-02] MEDS: Albuterol-Ipratrop 3 mg / 0.5 (3 ml) UD INH SCH ×3 (00:15→16:43)
[2018-06-02] MEDS: (Novolin R) Insulin Human Regular 100 units/ml vial SC SCH ×4 (01:07→17:50)
[2018-06-02] MEDS: Pantoprazole 40 mg Susp UD PO SCH (06:02)
[2018-06-02 09:02] VITALS: RESP 20
[2018-06-02] MEDS: Multiple Vitamins Oral Solution PO SCH (09:07)
[2018-06-02] MEDS: (Lantus) Insulin Glargine, Recombinant SC SCH (09:17)
[2018-06-02] MEDS: Bacitracin/Neomycin/Polymyxin Oint(30GM) TOP SCH ×2 (12:47→17:52)
--- NOTE | 2018-06-02 20:57 | CP.PCM.PN ---
Subjective - Date & Time of Evaluation Date of Evaluation: 06/02/18 Time of Evaluation: 19:30 - Subjective Subjective: Neurology consulted on the request of the daughter Patient is non verbal Objective - Vital Signs/Intake and Output Vital Signs (last 24 hours): Temp Pulse Resp BP Pulse Ox 97.3 F L 91 H 20 162/79 H 100 06/02/18 15:00 06/02/18 17:46 06/02/18 15:00 06/02/18 17:46 06/02/18 17:46 - Medications Medications: Current Medications Albuterol/Ipratropium (Duoneb 3 Mg/0.5 Mg (3 Ml) Ud) 3 ml INH RQ8 [facility] Last Admin: 06/02/18 16:43 Dose: 3 ml Ascorbic Acid (Vitamin C 500 Mg Tab) 1,000 mg PO DAILY [facility] Last Admin: 06/02/18 09:06 Dose: 1,000 mg Diltiazem HCl (Cardizem) 30 mg PO QID [facility] Last Admin: 06/02/18 14:00 Dose: Not Given Insulin Glargine (Lantus) 20 unit SC DAILY [facility] Last Admin: 06/02/18 09:17 Dose: 20 u Insulin Human Regular (Novolin R) 0 unit SC Q6 [facility]; Protocol Last Admin: 06/02/18 17:50 Dose: 3 units Metoprolol Tartrate (Lopressor) 75 mg PO BID [facility] Last Admin: 06/02/18 17:45 Dose: 75 mg Multivitamins/Vitamin C (Multi-Delyn Liquid) 5 ml PO DAILY [facility] Last Admin: 06/02/18 09:07 Dose: 5 ml Neomycin/Polymyxin/Bacitracin (Neosporin Triple Antibiotic Oint) 0 gm TOP BID [facility] Last Admin: 06/02/18 17:52 Dose: 1 applic Nystatin (Nystop Topical Powder) 1 applic TOP BID [facility] Last Admin: 06/02/18 17:52 Dose: 1 applic Pantoprazole Sodium (Protonix Susp) 40 mg PO 0600 [facility] Last Admin: 06/02/18 06:02 Dose: 40 mg Sitagliptin Phosphate (Januvia) 50 mg PO DAILY [facility] Last Admin: 06/02/18 09:06 Dose: 50 mg Zinc Sulfate (Zinc Sulfate 220 Mg Cap) 220 mg PO DAILY [facility] Last Admin: 06/02/18 09:06 Dose: 220 mg - Labs Labs: 05/30/18 04:20 05/30/18 04:20 PT 18.4 SECONDS (9.7-12.2) H 05/09/18 09:10 INR 1.7 05/09/18 09:10 APTT 25 SECONDS (21-34) 05/10/18 23:10
[2018-06-03] MEDS: Albuterol-Ipratrop 3 mg / 0.5 (3 ml) UD INH SCH ×3 (00:16→16:47)
[2018-06-03] MEDS: (Novolin R) Insulin Human Regular 100 units/ml vial SC SCH ×4 (01:04→17:57)
[2018-06-03] MEDS: Pantoprazole 40 mg Susp UD PO SCH (05:06)
--- NOTE | 2018-06-03 07:36 | CP.PCM.CON ---
History of Present Illness - History of Present Illness History of Present Illness: cons dictated ENCEPHALOPATHY NEW LEFT SIDE WEAKNESS - CARDIAC ARRHYTHMIA CAT/CAROTID/STROKE PROPHYLAXIS ASP PRECAUTION DVT PROPHYLAXIS Past Patient History - Infectious Disease Hx of Infectious Diseases: None - Past Medical History & Family History Past Medical History?: Yes - Past Social History Smoking Status: Former Smoker - CARDIAC Hx Congestive Heart Failure: Yes Hx Hypercholesterolemia: Yes Hx Hypertension: Yes - PULMONARY Hx Chronic Obstructive Pulmonary Disease (COPD): Yes - NEUROLOGICAL Hx Seizures: No Other/Comment: CONFUSION - HEENT Hx HEENT Problems: Yes 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 LEFT BUTTOCK PRESSURE ULCER. JACEK. HEEL DISCOLORATION - MUSCULOSKELETAL/RHEUMATOLOGICAL Hx Arthritis: Yes Hx Rheumatoid Arthritis: Yes - GASTROINTESTINAL Hx Gastrointestinal Disorders: Yes Hx Colitis: Yes Hx Gastroesophageal Reflux: Yes HX Swallowing Problems: Yes (Achalasia. 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) Hx Coronary Stent: Yes - ANESTHESIA Hx Anesthesia: Yes Hx Anesthesia Reactions: No Hx Malignant Hyperthermia: No Meds Allergies/Adverse Reactions: Allergies Allergy/AdvReac Type Severity Reaction Status Date / Time iodine Allergy REDNESS Verified 05/07/18 08:50 Penicillins Allergy ANGIOEDEMA Verified 05/07/18 08:45 clopidogrel [From Plavix] AdvReac HEADACHE Verified 05/07/18 08:45 losartan [From Cozaar] AdvReac DIZZINESS Verified 05/07/18 08:45 nitroglycerin AdvReac DIZZINESS Verified 05/07/18 08:45 - Medications Medications: Current Medications Albuterol/Ipratropium (Duoneb 3 Mg/0.5 Mg (3 Ml) Ud) 3 ml INH RQ8 [facility] Last Admin: 06/03/18 07:22 Dose: 3 ml Ascorbic Acid (Vitamin C 500 Mg Tab) 1,000 mg PO DAILY [facility] Last Admin: 06/02/18 09:06 Dose: 1,000 mg Diltiazem HCl (Cardizem) 30 mg PO QID [facility] Last Admin: 06/02/18 21:35 Dose: 30 mg Insulin Glargine (Lantus) 20 unit SC DAILY [facility] Last Admin: 06/02/18 09:17 Dose: 20 u Insulin Human Regular (Novolin R) 0 unit SC Q6 [facility]; Protocol Last Admin: 06/03/18 06:28 Dose: 3 units Metoprolol Tartrate (Lopressor) 75 mg PO BID [facility] Last Admin: 06/02/18 17:45 Dose: 75 mg Multivitamins/Vitamin C (Multi-Delyn Liquid) 5 ml PO DAILY [facility] Last Admin: 06/02/18 09:07 Dose: 5 ml Neomycin/Polymyxin/Bacitracin (Neosporin Triple Antibiotic Oint) 0 gm TOP BID [facility] Last Admin: 06/02/18 17:52 Dose: 1 applic Nystatin (Nystop Topical Powder) 1 applic TOP BID [facility] Last Admin: 06/02/18 17:52 Dose: 1 applic Pantoprazole Sodium (Protonix Susp) 40 mg PO 0600 [facility] Last Admin: 06/03/18 05:06 Dose: 40 mg Sitagliptin Phosphate (Januvia) 50 mg PO DAILY [facility] Last Admin: 06/02/18 09:06 Dose: 50 mg Zinc Sulfate (Zinc Sulfate 220 Mg Cap) 220 mg PO DAILY [facility] Last Admin: 06/02/18 09:06 Dose: 220 mg Results - Vital Signs Recent Vital Signs: Last Vital Signs Temp 98.6 F 06/02/18 23:19 Pulse 85 06/02/18 23:19 Resp 20 06/02/18 23:19 BP 140/82 06/02/18 23:19 Pulse Ox 97 06/02/18 23:19 - Labs Result Diagrams: 05/30/18 04:20 05/30/18 04:20 Labs: Laboratory Results - last 24 hr 06/02/18 06/02/18 06/03/18 12:01 17:31 00:23 POC Glucose (mg/dL) 319 H 224 H 218 H 06/03/18 06:23 POC Glucose (mg/dL) 226 H
--- NOTE | 2018-06-03 07:44 | CP.PCM.PN ---
Subjective - Date & Time of Evaluation Date of Evaluation: 06/03/18 Time of Evaluation: 07:41 - Subjective Subjective: pt is more awake and responding able speak but husky voice no distress seen neuro o/e pt is comfortable no distress no fever moving rt side better than lt labs pending CT head ordered ?cerebral insult neuro consult appreciated continue current treatment will f/u spoke to daughter Objective - Vital Signs/Intake and Output Vital Signs (last 24 hours): Temp Pulse Resp BP Pulse Ox 98.6 F 85 20 140/82 97 06/02/18 23:19 06/02/18 23:19 06/02/18 23:19 06/02/18 23:19 06/02/18 23:19 Intake and Output: 06/03/18 06/03/18 06:59 18:59 Intake Total 380 Output Total 200 Balance 180 - Medications Medications: Current Medications Albuterol/Ipratropium (Duoneb 3 Mg/0.5 Mg (3 Ml) Ud) 3 ml INH RQ8 [facility] Last Admin: 06/03/18 07:22 Dose: 3 ml Ascorbic Acid (Vitamin C 500 Mg Tab) 1,000 mg PO DAILY [facility] Last Admin: 06/02/18 09:06 Dose: 1,000 mg Diltiazem HCl (Cardizem) 30 mg PO QID [facility] Last Admin: 06/02/18 21:35 Dose: 30 mg Insulin Glargine (Lantus) 20 unit SC DAILY [facility] Last Admin: 06/02/18 09:17 Dose: 20 u Insulin Human Regular (Novolin R) 0 unit SC Q6 [facility]; Protocol Last Admin: 06/03/18 06:28 Dose: 3 units Metoprolol Tartrate (Lopressor) 75 mg PO BID [facility] Last Admin: 06/02/18 17:45 Dose: 75 mg Multivitamins/Vitamin C (Multi-Delyn Liquid) 5 ml PO DAILY [facility] Last Admin: 06/02/18 09:07 Dose: 5 ml Neomycin/Polymyxin/Bacitracin (Neosporin Triple Antibiotic Oint) 0 gm TOP BID [facility] Last Admin: 06/02/18 17:52 Dose: 1 applic Nystatin (Nystop Topical Powder) 1 applic TOP BID [facility] Last Admin: 06/02/18 17:52 Dose: 1 applic Pantoprazole Sodium (Protonix Susp) 40 mg PO 0600 [facility] Last Admin: 06/03/18 05:06 Dose: 40 mg Sitagliptin Phosphate (Januvia) 50 mg PO DAILY [facility] Last Admin: 06/02/18 09:06 Dose: 50 mg Zinc Sulfate (Zinc Sulfate 220 Mg Cap) 220 mg PO DAILY [facility] Last Admin: 06/02/18 09:06 Dose: 220 mg - Labs Labs: 05/30/18 04:20 05/30/18 04:20 PT 18.4 SECONDS (9.7-12.2) H 05/09/18 09:10 INR 1.7 05/09/18 09:10 APTT 25 SECONDS (21-34) 05/10/18 23:10
[2018-06-03 08:26] LABS: BASO # 0.2 K/uL (0.0-0.2); BASO % 1.5 % (0.0-2.0); EOS # 0.6 K/uL (0.0-0.7); EOS % 4.2 % (0.0-4.0); HEMOGLOBIN 12.1 g/dL (11.0-16.0); LYMPH # 1.9 K/uL (1.0-4.3); LYMPH % 13.9 % (20.0-40.0); MEAN CELL VOLUME 90.8 fL (81.0-99.0); MEAN CORPUSCULAR HEMOGLOBIN 30.4 pg (27.0-31.0); MEAN CORPUSCULAR HGB CONC 33.5 g/dL (33.0-37.0); MEAN PLATELET VOLUME 8.1 fL (7.2-11.7); MONO % 7.2 % (0.0-10.0); NEUT # 10.2 K/uL (1.8-7.0); NEUT % 73.2 % (50.0-75.0); NRBC % 0.1 % (0.0-2.0); RBC 3.97 Mil/uL (3.80-5.20); RED CELL DISTRIBUTION WIDTH 16.7 % (11.5-14.5); WHITE BLOOD COUNT 13.9 K/uL (4.8-10.8)
[2018-06-03 08:56] LABS: ALBUMIN 3.9 g/dL (3.5-5.0); ALT/SGPT 15 U/L (9-52); AST/SGOT 22 U/L (14-36); BLOOD UREA NITROGEN 56 mg/dL (7-17); CALCIUM 10.7 mg/dl (8.6-10.4); GFR NON-AFRICAN AMERICAN > 60
[2018-06-03] MEDS: (Lantus) Insulin Glargine, Recombinant SC SCH (09:25)
[2018-06-03 09:36] LABS: PROLACTIN 6.9 ng/mL (3.0-18.9)
[2018-06-03 09:40] LABS: FREE T4 1.02 ng/dL (0.78-2.19)
--- NOTE | 2018-06-03 10:49 | CT ---
Date of service: 06/03/2018 PROCEDURE: CT HEAD WITHOUT CONTRAST. HISTORY: Stroke vs Bleed COMPARISON: Comparison made with prior CT scan of the brain dated 05/07/2018. TECHNIQUE: Axial computed tomography images were obtained through the head/brain without intravenous contrast. Radiation dose: Total exam DLP = 1038.48 mGy-cm. This CT exam was performed using one or more of the following dose reduction techniques: Automated exposure control, adjustment of the mA and/or kV according to patient size, and/or use of iterative reconstruction technique. FINDINGS: HEMORRHAGE: No intracranial hemorrhage. BRAIN: Moderate to fairly significant diffuse/confluent chronic periventricular white matter ischemic changes seen extending peripherally into the deep and subcortical white matter both cerebral hemispheres.. There are also chronic appearing ischemic changes both basal nuclei. Note that the possibility of a small hyperacute infarct cannot be excluded. No obvious parenchymal nor extra-axial mass or collection seen on this noncontrast exam. Moderate to fairly significant generalized volume loss. Vascular calcifications both carotid siphons and right vertebral artery again noted VENTRICLES: No obstructive hydrocephalus. CALVARIUM: There are no acute calvarial fractures. PARANASAL SINUSES: Minor mucosal thickening seen within the ethmoid air complex. Note again made of a small joe bullosa right middle turbinate. The nasal turbinate mucosa exhibits a somewhat crenulated appearance MASTOID AIR CELLS: Unremarkable as visualized. No inflammatory changes. OTHER FINDINGS: Changes of bilateral cataract surgery again noted. IMPRESSION: No acute intracranial hemorrhage. Moderate to fairly significant chronic white matter ischemic changes with chronic appearing bilateral basal nuclei infarcts. Note that the possibility of a small hyperacute infarct cannot be excluded on this exam. Clinical correlation recommended. Moderate to fairly significant generalized volume loss.
[2018-06-03] MEDS: Multiple Vitamins Oral Solution PO SCH (12:32)
[2018-06-03] MEDS: Bacitracin/Neomycin/Polymyxin Oint(30GM) TOP SCH ×2 (12:32→17:59)
--- NOTE | 2018-06-03 23:17 | CP.PCM.PN ---
Subjective - Date & Time of Evaluation Date of Evaluation: 06/03/18 Time of Evaluation: 18:25 - Subjective Subjective: Patient seen and evaluated not in distress Objective - Vital Signs/Intake and Output Vital Signs (last 24 hours): Temp Pulse Resp BP Pulse Ox 97.5 F L 88 20 112/80 96 06/03/18 16:00 06/03/18 16:00 06/03/18 16:00 06/03/18 17:54 06/03/18 16:00 Intake and Output: 06/03/18 06/04/18 18:59 06:59 Intake Total 700 280 Output Total 750 150 Balance -50 130 - Medications Medications: Current Medications Albuterol/Ipratropium (Duoneb 3 Mg/0.5 Mg (3 Ml) Ud) 3 ml INH RQ8 [facility] Last Admin: 06/03/18 16:47 Dose: 3 ml Ascorbic Acid (Vitamin C 500 Mg Tab) 1,000 mg PO DAILY [facility] Last Admin: 06/03/18 09:28 Dose: 1,000 mg Diltiazem HCl (Cardizem) 30 mg PO QID [facility] Last Admin: 06/03/18 22:13 Dose: 30 mg Insulin Glargine (Lantus) 20 unit SC DAILY [facility] [place] Last Admin: 06/03/18 09:25 Dose: 20 u Insulin Human Regular (Novolin R) 0 unit SC Q6 [facility] [place]; Protocol Last Admin: 06/03/18 17:57 Dose: 3 units Metoprolol Tartrate (Lopressor) 75 mg PO BID [facility] [place] Last Admin: 06/03/18 17:54 Dose: 75 mg Multivitamins/Vitamin C (Multi-Delyn Liquid) 5 ml PO DAILY [facility] [place] Last Admin: 06/03/18 12:32 Dose: Not Given Neomycin/Polymyxin/Bacitracin (Neosporin Triple Antibiotic Oint) 0 gm TOP BID [facility] Last Admin: 06/03/18 17:59 Dose: 1 applic Nystatin (Nystop Topical Powder) 1 applic TOP BID [facility] Last Admin: 06/03/18 17:57 Dose: 1 applic Pantoprazole Sodium (Protonix Susp) 40 mg PO 0600 [facility] [place] Last Admin: 06/03/18 05:06 Dose: 40 mg Sitagliptin Phosphate (Januvia) 50 mg PO DAILY [facility] [place] Last Admin: 06/03/18 09:28 Dose: 50 mg Zinc Sulfate (Zinc Sulfate 220 Mg Cap) 220 mg PO DAILY [facility] Last Admin: 06/03/18 09:28 Dose: 220 mg - Labs Labs: 06/03/18 08:20 06/03/18 08:20 PT 18.4 SECONDS (9.7-12.2) H 05/09/18 09:10 INR 1.7 05/09/18 09:10 APTT 25 SECONDS (21-34) 05/10/18 23:10
[2018-06-04] MEDS: Albuterol-Ipratrop 3 mg / 0.5 (3 ml) UD INH SCH ×3 (00:14→15:49)
[2018-06-04] MEDS: (Novolin R) Insulin Human Regular 100 units/ml vial SC SCH ×4 (00:29→18:05)
--- NOTE | 2018-06-04 09:22 | RAD ---
Date of service: 06/04/2018 HISTORY: PNA COMPARISON: 05/31/2018 FINDINGS: LUNGS: No active pulmonary disease. PLEURA: No significant pleural effusion identified, no pneumothorax apparent. CARDIOVASCULAR: Atherosclerotic calcification of the aortic arch is noted. Permanent pacemaker. Normal heart size. No congestive change. Sternotomy wires. Normal cardiac size. No pulmonary vascular congestion. OSSEOUS STRUCTURES: No significant abnormalities. VISUALIZED UPPER ABDOMEN: Normal. OTHER FINDINGS: None. IMPRESSION: No active disease.
--- NOTE | 2018-06-04 10:03 | CON ---
DATE: 06/03/2018 ATTENDING PHYSICIAN: Luis Manuel Patel MD. LOCATION: Room 350 bed A. REASON FOR CONSULTATION: Change in mental status. CHIEF COMPLAINT: The patient was admitted with history of respiratory discomfort and change in mental status. The patient was intubated, extubated, GI bleed status post PEG placement, been found to have new change in mental status. From neurological point of view, I was called to evaluate her for further management. HISTORY OF PRESENT ILLNESS: Ms. Angelica Geurra is an 87-year-old right-handed female, been admitted with respiratory problem and GI bleed. During the hospital course, the patient did have respiratory assistance and she is extubated at present. The patient also having uncontrolled glucose at present. PAST MEDICAL HISTORY: Anxiety, rheumatoid arthritis, cardiac arrhythmias, CHF, COPD, dyslipidemia, osteoporosis, hypertension. PAST SURGICAL HISTORY: CABG 1991, carotid endarterectomy in 2004, coronary stent and pacemaker. ALLERGIES: IODINE, PENICILLIN, CLOPIDOGREL, LOSARTAN, AND NITROGLYCERIN. REVIEW OF SYSTEMS: A 12-point system being reviewed from neuro, change in mental status and weakness. MEDICATIONS: Cardizem, albuterol, Januvia, Lantus, Lopressor, Neosporin ointment, Protonix, vitamin C, zinc. PHYSICAL EXAMINATION: VITAL SIGNS: Blood pressure 140/82, mean arterial pressure 101, respiratory rate 18, temperature 98.6, with pulse rate 110. NECK: Supple. No carotid bruits. HEART: Tachycardia. EXTREMITIES: Left leg externally rotated. Both are under splint. NEUROLOGIC: Arousable on calling her name. She falls asleep right back. On passive opening of the eyelids, external conjugate gaze is affected. Right eye exotropic. Good corneal reflex. Mouth dry, mouth kept open. No tongue deviation noted. Motor, she could lift both upper extremities against the gravity. Right leg significant drop noted. She could not able to sustain not more than 5 seconds. Her left leg externally rotated. Deep tendon reflexes absent. Plantars are upgoing on both sides. Sensory, responds to pain by grimacing noted. Coordination and gait, deferred at this time. WORKUP: CT of the head which was done during admission which was reported as negative. EKG, pacemaker rhythm with a tachycardia. Blood workup; WBC 11.3, hemoglobin 12.1, hematocrit 36.2, platelet 367, sodium 138, potassium 4.3, chloride 97, bicarbonate 32, BUN 40, GFR more than 60 and glucose 226, calcium 10.8. CONCLUSION: Ms. Angelica Guerra as per neurological examination presenting with global cerebral dysfunction superimposed with new manifestation of left-sided weakness with disconjugate gaze, all consistent with brainstem dysfunction. The patient is known to have cardiac arrhythmias and pacemaker, probably paroxysmal atrial fibrillation related ischemic process; however, other possible causes including small vessel disease and carotid disease should be ruled out. Change in mental status could be related to the above description, may be associated with electrolyte imbalance and metabolic causes. The patient's condition has been discussed with Dr. Patel. RECOMMENDATIONS: 1. CT of the head to be done to rule out any ischemic process or bleed. 2. DVT prophylaxis. 3. Keep her chest under elevation, aspiration precaution should be maintained. Continue PEG feeding. 4. EEG to rule out seizures, focal weakness could be Vj's paresis. 5. If GI cleared, the patient should be on DVT prophylaxis and antiplatelets as well. 6. Cardiology to follow her because of the cardiac arrhythmias. The patient will be followed closely with you. Curtis Morales MD
[2018-06-04] MEDS: Pantoprazole 40 mg Susp UD PO SCH (11:02)
[2018-06-04] MEDS: (Lantus) Insulin Glargine, Recombinant SC SCH (11:04)
[2018-06-04] MEDS: Multiple Vitamins Oral Solution PO SCH (11:04)
[2018-06-04] MEDS: Bacitracin/Neomycin/Polymyxin Oint(30GM) TOP SCH ×2 (11:08→18:44)
[2018-06-04 11:15] LABS: BASO # 0.1 K/uL (0.0-0.2); BASO % 0.7 % (0.0-2.0); EOS # 0.2 K/uL (0.0-0.7); EOS % 1.7 % (0.0-4.0); LYMPH # 1.7 K/uL (1.0-4.3); LYMPH % 11.7 % (20.0-40.0); MEAN CELL VOLUME 91.4 fL (81.0-99.0); MEAN CORPUSCULAR HEMOGLOBIN 30.5 pg (27.0-31.0); MEAN CORPUSCULAR HGB CONC 33.4 g/dL (33.0-37.0); MEAN PLATELET VOLUME 8.5 fL (7.2-11.7); MONO # 1.3 K/uL (0.0-0.8); MONO % 8.9 % (0.0-10.0); NEUT # 10.9 K/uL (1.8-7.0); NRBC % 0.1 % (0.0-2.0); RBC 3.93 Mil/uL (3.80-5.20); RED CELL DISTRIBUTION WIDTH 16.8 % (11.5-14.5); WHITE BLOOD COUNT 14.2 K/uL (4.8-10.8)
[2018-06-04 11:34] LABS: ALB/GLOB RATIO 1.1 (1.0-2.1); ALT/SGPT 15 U/L (9-52); AST/SGOT 21 U/L (14-36); BLOOD UREA NITROGEN 59 mg/dL (7-17); CALCIUM 10.7 mg/dl (8.6-10.4); GFR NON-AFRICAN AMERICAN > 60
--- NOTE | 2018-06-04 11:37 | CP.PCM.PN ---
Subjective - Date & Time of Evaluation Date of Evaluation: 06/04/18 Time of Evaluation: 11:37 - Subjective Subjective: Patient is morning still feeling somewhat drowsy and sleepy. But she was opening her eyes with the response. But she is able to follow simple commands. Mild tachypnea noted. Currently receiving feeding via PEG On examination: Vital signs stable. Mild tachycardia noted. Chest good air entry, bilateral expected minimal wheezing noted Patient's labs reviewed Uncontrolled highly elevated blood sugar [place] level elevated. Chest x-ray no acute changes noted Recommended: Albuterol, ipratropium via inhalers IV fluid will start low dose. Uncontrolled diabetes with hyperosmolar state cannot be ruled out. Will repeat the blood test and possibly also osmolality. Glucose control. DVT GI prophylaxis and will follow the patient Objective - Vital Signs/Intake and Output Vital Signs (last 24 hours): Temp Pulse Resp BP Pulse Ox 97.8 F 100 H 20 113/76 96 06/04/18 07:59 06/04/18 07:59 06/04/18 07:59 06/04/18 11:03 06/04/18 07:59 Intake and Output: 06/04/18 06/04/18 06:59 18:59 Intake Total 280 Output Total 150 Balance 130 - Medications Medications: Current Medications Albuterol/Ipratropium (Duoneb 3 Mg/0.5 Mg (3 Ml) Ud) 3 ml INH RQ8 [facility] Last Admin: 06/04/18 08:05 Dose: 3 ml Ascorbic Acid (Vitamin C 500 Mg Tab) 1,000 mg PO DAILY [facility] Last Admin: 06/04/18 11:02 Dose: 1,000 mg Diltiazem HCl (Cardizem) 30 mg PO QID [facility] Last Admin: 06/04/18 11:03 Dose: 30 mg Insulin Glargine (Lantus) 20 unit SC DAILY [facility] Last Admin: 06/04/18 11:04 Dose: 20 u Insulin Human Regular (Novolin R) 0 unit SC Q6 [facility]; Protocol Last Admin: 06/04/18 06:25 Dose: 2 units Metoprolol Tartrate (Lopressor) 75 mg PO BID [facility] Last Admin: 06/04/18 11:03 Dose: 75 mg Multivitamins/Vitamin C (Multi-Delyn Liquid) 5 ml PO DAILY [facility] Last Admin: 06/04/18 11:04 Dose: 5 ml Neomycin/Polymyxin/Bacitracin (Neosporin Triple Antibiotic Oint) 0 gm TOP BID [facility] Last Admin: 06/04/18 11:08 Dose: 1 applic Nystatin (Nystop Topical Powder) 1 applic TOP BID [facility] Last Admin: 06/04/18 11:08 Dose: 1 applic Pantoprazole Sodium (Protonix Susp) 40 mg PO 0600 [facility] Last Admin: 06/04/18 11:02 Dose: 40 mg Sitagliptin Phosphate (Januvia) 50 mg PO DAILY [facility] Last Admin: 06/04/18 11:04 Dose: 50 mg Zinc Sulfate (Zinc Sulfate 220 Mg Cap) 220 mg PO DAILY [facility] Last Admin: 06/04/18 11:10 Dose: 220 mg - Labs Labs: 06/04/18 11:00 06/04/18 11:00 PT 18.4 SECONDS (9.7-12.2) H 05/09/18 09:10 INR 1.7 05/09/18 09:10 APTT 25 SECONDS (21-34) 05/10/18 23:10
[2018-06-04] MEDS ORDERED: Sodium Chloride 0.9% 1,000 ML IV SCH (11:45)
[2018-06-04 12:57] LABS: ARTERIAL BLOOD GAS O2 SAT 99.4 % (95-98); ARTERIAL BLOOD GAS PCO2 46 mm/Hg (35-45); ARTERIAL BLOOD GAS PH 7.46 (7.35-7.45); ARTERIAL BLOOD GAS PO2 131 mm/Hg (80-100); ARTERIAL BLOOD GAS TCO2 34.1 mmol/L (22-28)
--- NOTE | 2018-06-04 20:53 | PN ---
DATE: 06/04/2018 TIME OF EVALUATION: 6:55 a.m. NEUROLOGICAL PROBLEM: Mild left hemiparesis superimposed with toxic versus metabolic encephalopathy. VITAL SIGNS: Blood pressure 114/66, mean arterial pressure of 82, respiratory rate 18, temperature 98.7 with a pulse rate of 96. The patient is awake, moving her extremities spontaneously, right more than her left side. Good visual contact. Speech is not communicable. Rest of the examination is unchanged. The patient's repeat CT of the head does not show any acute pathology; however, suspicion of subacute form of ischemic process cannot be ruled out as per the CAT scan. Continue the present management at present. The patient requested EEG is pending Curtis Morales MD [id number]
[2018-06-04 21:03] LABS: ABG ALLEN TEST POS; ARTERIAL BLOOD GAS HCO3 32.7 mmol/L (21-28); ARTERIAL BLOOD GAS O2 SAT 99.7 % (95-98); ARTERIAL BLOOD GAS PCO2 53 mm/Hg (35-45); ARTERIAL BLOOD GAS PH 7.44 (7.35-7.45); ARTERIAL BLOOD GAS PO2 111 mm/Hg (80-100); ARTERIAL BLOOD GAS TCO2 37.6 mmol/L (22-28)
[2018-06-05] MEDS: (Novolin R) Insulin Human Regular 100 units/ml vial SC SCH ×4 (00:31→17:38)
[2018-06-05] MEDS: Albuterol-Ipratrop 3 mg / 0.5 (3 ml) UD INH SCH ×3 (00:57→16:29)
[2018-06-05] MEDS: Pantoprazole 40 mg Susp UD PO SCH (06:09)
[2018-06-05 07:51] LABS: BASO # 0.1 K/uL (0.0-0.2); BASO % 0.8 % (0.0-2.0); EOS # 0.4 K/uL (0.0-0.7); EOS % 3.6 % (0.0-4.0); LYMPH % 17.9 % (20.0-40.0); MEAN CELL VOLUME 90.7 fL (81.0-99.0); MEAN CORPUSCULAR HEMOGLOBIN 30.5 pg (27.0-31.0); MEAN CORPUSCULAR HGB CONC 33.6 g/dL (33.0-37.0); MEAN PLATELET VOLUME 8.6 fL (7.2-11.7); MONO % 9.2 % (0.0-10.0); NEUT # 7.7 K/uL (1.8-7.0); NEUT % 68.5 % (50.0-75.0); NRBC % 0.1 % (0.0-2.0); RBC 3.61 Mil/uL (3.80-5.20); RED CELL DISTRIBUTION WIDTH 16.9 % (11.5-14.5); WHITE BLOOD COUNT 11.2 K/uL (4.8-10.8)
--- NOTE | 2018-06-05 07:57 | CP.PCM.PN ---
Subjective - Date & Time of Evaluation Date of Evaluation: 06/05/18 Time of Evaluation: 07:57 - Subjective Subjective: Patient is somewhat more sleepy but arousable. Sitting out of bed to chair. Tolerating the feeding. Cough better. On examination: Vital signs stable. Chest good air entry regular heart sound. Assessment: Patient is 87-year-old female now admitted with acute respirated failure. GI bleed. Multiorgan failure, improving. Patient is currently in the hospital still because of the worsening diabetes under control with diabetes. Patient also needs a rehabilitation currently don't have the rehabilitation time because of the insurance. Meanwhile we'll continue the physical therapy, out of bed to chair and will follow the patient Objective - Vital Signs/Intake and Output Vital Signs (last 24 hours): Temp Pulse Resp BP Pulse Ox 98.7 F 92 H 20 160/87 H 98 06/05/18 07:44 06/05/18 07:44 06/05/18 07:44 06/05/18 07:44 06/05/18 07:44 Intake and Output: 06/05/18 06/05/18 06:59 18:59 Intake Total 1560 Output Total 830 Balance 730 - Medications Medications: Current Medications Albuterol/Ipratropium (Duoneb 3 Mg/0.5 Mg (3 Ml) Ud) 3 ml INH RQ8 [facility] Last Admin: 06/05/18 00:57 Dose: 3 ml Ascorbic Acid (Vitamin C 500 Mg Tab) 1,000 mg PO DAILY [facility] Last Admin: 06/04/18 11:02 Dose: 1,000 mg Diltiazem HCl (Cardizem) 30 mg PO QID [facility] Last Admin: 06/04/18 22:25 Dose: 30 mg Insulin Glargine (Lantus) 25 unit SC DAILY [facility] Insulin Human Regular (Novolin R) 0 unit SC Q6 [facility]; Protocol Last Admin: 06/05/18 06:14 Dose: 3 units Metoprolol Tartrate (Lopressor) 75 mg PO BID [facility] Last Admin: 06/04/18 17:05 Dose: 75 mg Multivitamins/Vitamin C (Multi-Delyn Liquid) 5 ml PO DAILY [facility] Last Admin: 06/04/18 11:04 Dose: 5 ml Neomycin/Polymyxin/Bacitracin (Neosporin Triple Antibiotic Oint) 0 gm TOP BID [facility] Last Admin: 06/04/18 18:44 Dose: 1 applic Nystatin (Nystop Topical Powder) 1 applic TOP BID [facility] Last Admin: 06/04/18 18:45 Dose: 1 applic Pantoprazole Sodium (Protonix Susp) 40 mg PO 0600 [facility] Last Admin: 06/05/18 06:09 Dose: 40 mg Sitagliptin Phosphate (Januvia) 50 mg PO DAILY [facility] Last Admin: 06/04/18 11:04 Dose: 50 mg Zinc Sulfate (Zinc Sulfate 220 Mg Cap) 220 mg PO DAILY [facility] Last Admin: 06/04/18 11:10 Dose: 220 mg - Labs Labs: 06/05/18 07:33 06/04/18 11:00 PT 18.4 SECONDS (9.7-12.2) H 05/09/18 09:10 INR 1.7 05/09/18 09:10 APTT 25 SECONDS (21-34) 05/10/18 23:10
[2018-06-05 08:10] LABS: ALBUMIN 3.8 g/dL (3.5-5.0); ALT/SGPT 12 U/L (9-52); AST/SGOT 27 U/L (14-36); BLOOD UREA NITROGEN 51 mg/dL (7-17); CALCIUM 10.4 mg/dl (8.6-10.4); GFR NON-AFRICAN AMERICAN > 60
[2018-06-05] MEDS: Multiple Vitamins Oral Solution PO SCH (10:59)
[2018-06-05] MEDS: (Lantus) Insulin Glargine, Recombinant SC SCH (10:59)
[2018-06-05] MEDS: Bacitracin/Neomycin/Polymyxin Oint(30GM) TOP SCH ×2 (11:00→17:37)
--- NOTE | 2018-06-05 12:11 | PN ---
DATE: 06/05/2018 TIME OF EVALUATION: 07:10 a.m. NEUROLOGICAL PROBLEM: Possible clinical right subcortical dysfunction, maybe ischemic process. Superimposed with metabolic acidosis and encephalopathy. PHYSICAL EXAMINATION: VITAL SIGNS: Blood pressure 142/63, mean arterial pressure of 89, respiratory rate 18, pulse rate 81 irregular. GENERAL: The patient is sleepy, not arousable verbally. Noxious stimuli and grimacing noted. Some movement on the right side noted. Otherwise, examination which is unchanged. The patient's condition mainly were discussed with her daughter, explained to her the neurological problem. RECOMMENDATION: Continue the present management. Underlying sepsis should be treated with appropriate antibiotic. The patient should not be given any sedatives. The patient will be followed while she is in the hospital. Curtis Morales MD
[2018-06-06] MEDS: (Novolin R) Insulin Human Regular 100 units/ml vial SC SCH ×4 (00:13→18:36)
--- NOTE | 2018-06-06 00:17 | CP.PCM.PN ---
Subjective - Date & Time of Evaluation Date of Evaluation: 06/05/18 Time of Evaluation: 10:20 - Subjective Subjective: Patient seen and evaluated No cardiac events noted Remains non verbal Objective - Vital Signs/Intake and Output Vital Signs (last 24 hours): Temp Pulse Resp BP Pulse Ox 98.4 F 77 20 104/60 100 06/05/18 23:38 06/05/18 23:38 06/05/18 23:38 06/05/18 23:38 06/05/18 23:38 Intake and Output: 06/05/18 06/06/18 18:59 06:59 Intake Total 480 480 Output Total 300 350 Balance 180 130 - Medications Medications: Current Medications Albuterol/Ipratropium (Duoneb 3 Mg/0.5 Mg (3 Ml) Ud) 3 ml INH RQ8 [facility] Last Admin: 06/05/18 16:29 Dose: 3 ml Ascorbic Acid (Vitamin C 500 Mg Tab) 1,000 mg PO DAILY [facility] Last Admin: 06/05/18 10:58 Dose: 1,000 mg Diltiazem HCl (Cardizem) 30 mg PO QID [facility] Last Admin: 06/05/18 21:55 Dose: 30 mg Insulin Glargine (Lantus) 25 unit SC DAILY [facility] Last Admin: 06/05/18 10:59 Dose: 25 units Insulin Human Regular (Novolin R) 0 unit SC Q6 [facility]; Protocol Last Admin: 06/06/18 00:13 Dose: Not Given Metoprolol Tartrate (Lopressor) 75 mg PO BID [facility] Last Admin: 06/05/18 17:36 Dose: 75 mg Multivitamins/Vitamin C (Multi-Delyn Liquid) 5 ml PO DAILY [facility] Last Admin: 06/05/18 10:59 Dose: 5 ml Nystatin (Nystop Topical Powder) 1 applic TOP BID [facility] Last Admin: 06/05/18 17:38 Dose: 1 applic Pantoprazole Sodium (Protonix Susp) 40 mg PO 0600 [facility] Last Admin: 06/05/18 06:09 Dose: 40 mg Sitagliptin Phosphate (Januvia) 50 mg PO DAILY [facility] Last Admin: 06/05/18 10:58 Dose: 50 mg Zinc Sulfate (Zinc Sulfate 220 Mg Cap) 220 mg PO DAILY [facility] Last Admin: 06/05/18 10:59 Dose: 220 mg - Labs Labs: 06/05/18 07:33 06/05/18 07:33 PT 18.4 SECONDS (9.7-12.2) H 05/09/18 09:10 INR 1.7 05/09/18 09:10 APTT 25 SECONDS (21-34) 05/10/18 23:10
[2018-06-06] MEDS: Albuterol-Ipratrop 3 mg / 0.5 (3 ml) UD INH SCH ×3 (00:28→17:00)
[2018-06-06] MEDS: Pantoprazole 40 mg Susp UD PO SCH (05:40)
[2018-06-06] MEDS: Multiple Vitamins Oral Solution PO SCH (10:13)
[2018-06-06] MEDS: (Lantus) Insulin Glargine, Recombinant SC SCH (10:15)
--- NOTE | 2018-06-06 13:23 | VASCLAB ---
Date of service: 06/03/2018 PROCEDURE: Carotid Duplex Exam. HISTORY: Weakness, left sided. COMPARISON: None available. TECHNIQUE: Grayscale and duplex Doppler evaluation of the cervical carotid and vertebral arteries were performed. The common carotid, carotid bifurcations and cervical Internal Carotid Artery (ICA) and proximal External Carotid Artery (ECA) were evaluated. The vertebral arteries were evaluated for gross patency and flow direction. Report prepared by Alonzo Carter, BS, RVT FINDINGS: RIGHT CAROTID ARTERIES: 1. Common Carotid Artery: No significant focal plaque formation of the right common carotid artery. Maximum Peak Systolic velocity: 90 cm/sec: End-diastolic velocity 15 cm/sec. 2. Carotid Bifurcation: Calcific plaque formation. Maximum Peak Systolic velocity: 78 cm/sec: End-diastolic velocity 14 cm/sec. 3. Internal Carotid Artery: Severe plaque formation of the right proximal ICA which does not results in a hemodynamically significant stenosis. Plaque description: Calcific 3.1. Proximal Segment: Peak systolic velocity 90 cm/sec: End-diastolic velocity 13 cm/sec - % stenosis 0-15% 3.2. Middle Segment: Peak systolic velocity 95 cm/sec: End-diastolic velocity 14 cm/sec - % stenosis 0-15% 3.3. Distal Segment: Peak systolic velocity 124 cm/sec: End-diastolic velocity 15 cm/sec - % stenosis 0-15% 4. External Carotid Artery: Extensive multifocal peak systolic velocity 156 cm/sec 5. ICA/CCA Ratio: 1.4 LEFT CAROTID ARTERIES: 1. Common Carotid Artery: No significant focal plaque formation of the left common carotid artery. Maximum Peak Systolic velocity: 96 cm/sec: End-diastolic velocity 0 cm/sec. 2. Carotid Bifurcation: plaque formation. Maximum Peak Systolic velocity: 62 cm/sec: End-diastolic velocity 8 cm/sec. 3. Internal Carotid Artery: Multifocal calcific plaque formation. 3.1. Proximal Segment: Peak systolic velocity 67 cm/sec: End-diastolic velocity 12 cm/sec - % stenosis 0-15% 3.2. Middle Segment: Peak systolic velocity 103 cm/sec: End-diastolic velocity 19 cm/sec - % stenosis 0-15% 3.3. Distal Segment: Peak systolic velocity 117 cm/sec: End-diastolic velocity 17 cm/sec - % stenosis 0-15% 4. External Carotid Artery: Calcific plaque formation. Peak systolic velocity 228 cm/sec 5. ICA/CCA Ratio: 1.2 VERTEBRAL ARTERIES: 1. Right Vertebral Artery: The right vertebral artery flow direction is antegrade. 2. Left Vertebral Artery: The left vertebral artery flow direction is antegrade. OTHER FINDINGS: 1. None significant. IMPRESSION: RIGHT: Duplex scan does not suggest hemodynamically significant stenosis of the right extracranial carotid arteries. Extensive calcific plaque formation in the proximal segment of the internal carotid artery. LEFT: Duplex scan does not suggest hemodynamically significant stenosis of the left extracranial carotid arteries.
[2018-06-07] MEDS: (Novolin R) Insulin Human Regular 100 units/ml vial SC SCH ×4 (00:33→18:37)
[2018-06-07] MEDS: Albuterol-Ipratrop 3 mg / 0.5 (3 ml) UD INH SCH ×3 (01:00→16:36)
[2018-06-07] MEDS: Pantoprazole 40 mg Susp UD PO SCH (05:34)
--- NOTE | 2018-06-07 07:39 | CP.PCM.PN ---
Subjective - Date & Time of Evaluation Date of Evaluation: 06/06/18 Time of Evaluation: 13:05 - Subjective Subjective: Patient seen and evaluated Comfortable and no cardiac events noted Non verbal Physical Examination - Constitutional Appears: Well, Chronically Ill - Respiratory Exam Respiratory Exam: NORMAL BREATHING PATTERN - Cardiovascular Exam Cardiovascular Exam: Tachycardia - GI/Abdominal Exam GI & Abdominal Exam: Soft. absent: Tenderness Additional comments: Excoriation and erythema around GT is improving - Psychiatric Exam Psychiatric exam: Flat Affect - Skin Skin Exam: Normal Color Assessment and Plan (1) CAD hx of stents Status: Stable (2) GI bleed Assessment & Plan: stable DU Change Protonix to GT Status: Acute (3) Sepsis Status: Acute (4) Electrolyte abnormality Status: Acute (5) Ischemic hepatitis Assessment & Plan: resolved Status: Acute (6) Respiratory failure with hypoxia Status: Acute (7) Infection of gastrostomy site Assessment & Plan: Gradually resolving with local care Status: Acute Objective - Vital Signs/Intake and Output Vital Signs (last 24 hours): Temp Pulse Resp BP Pulse Ox 98.7 F 76 20 124/69 100 06/06/18 23:34 06/06/18 23:34 06/06/18 23:34 06/06/18 23:34 06/06/18 23:34 Intake and Output: 06/07/18 06/07/18 06:59 18:59 Intake Total 960 Output Total 350 Balance 610 - Medications Medications: Current Medications Albuterol/Ipratropium (Duoneb 3 Mg/0.5 Mg (3 Ml) Ud) 3 ml INH RQ8 [facility] Last Admin: 06/07/18 01:00 Dose: 3 ml Ascorbic Acid (Vitamin C 500 Mg Tab) 1,000 mg PO DAILY [facility] Last Admin: 06/06/18 10:14 Dose: 1,000 mg Diltiazem HCl (Cardizem) 30 mg PO QID [facility] Last Admin: 06/06/18 21:35 Dose: 30 mg Insulin Glargine (Lantus) 25 unit SC DAILY [facility] Last Admin: 06/06/18 10:15 Dose: 25 units Insulin Human Regular (Novolin R) 0 unit SC Q6 [facility]; Protocol Last Admin: 06/07/18 06:18 Dose: Not Given Metoprolol Tartrate (Lopressor) 75 mg PO BID [facility] Last Admin: 06/06/18 17:57 Dose: 75 mg Multivitamins/Vitamin C (Multi-Delyn Liquid) 5 ml PO DAILY [facility] Last Admin: 06/06/18 10:13 Dose: 5 ml Nystatin (Nystop Topical Powder) 1 applic TOP BID [facility] Last Admin: 06/06/18 17:58 Dose: 1 applic Pantoprazole Sodium (Protonix Susp) 40 mg PO 0600 [facility] Last Admin: 06/07/18 05:34 Dose: 40 mg Sitagliptin Phosphate (Januvia) 50 mg PO DAILY [facility] Last Admin: 06/06/18 10:14 Dose: 50 mg Zinc Sulfate (Zinc Sulfate 220 Mg Cap) 220 mg PO DAILY [facility] Last Admin: 06/06/18 10:14 Dose: 220 mg - Labs Labs: 06/05/18 07:33 06/05/18 07:33 PT 18.4 SECONDS (9.7-12.2) H 05/09/18 09:10 INR 1.7 05/09/18 09:10 APTT 25 SECONDS (21-34) 05/10/18 23:10
[2018-06-07] MEDS: (Lantus) Insulin Glargine, Recombinant SC SCH (10:54)
[2018-06-07] MEDS: Multiple Vitamins Oral Solution PO SCH (10:58)
[2018-06-08] MEDS: Albuterol-Ipratrop 3 mg / 0.5 (3 ml) UD INH SCH ×3 (00:11→15:58)
[2018-06-08] MEDS: (Novolin R) Insulin Human Regular 100 units/ml vial SC SCH ×4 (00:24→18:00)
[2018-06-08] MEDS: Pantoprazole 40 mg Susp UD PO SCH (06:31)
[2018-06-08 08:29] LABS: BASO # 0.1 K/uL (0.0-0.2); BASO % 0.8 % (0.0-2.0); EOS # 0.3 K/uL (0.0-0.7); EOS % 3.6 % (0.0-4.0); HEMOGLOBIN 10.9 g/dL (11.0-16.0); LYMPH # 1.5 K/uL (1.0-4.3); MEAN CELL VOLUME 91.2 fL (81.0-99.0); MEAN CORPUSCULAR HGB CONC 33.9 g/dL (33.0-37.0); MEAN PLATELET VOLUME 8.6 fL (7.2-11.7); MONO # 0.7 K/uL (0.0-0.8); MONO % 7.7 % (0.0-10.0); NEUT # 6.5 K/uL (1.8-7.0); NEUT % 70.9 % (50.0-75.0); RBC 3.54 Mil/uL (3.80-5.20); RED CELL DISTRIBUTION WIDTH 16.4 % (11.5-14.5); WHITE BLOOD COUNT 9.1 K/uL (4.8-10.8)
[2018-06-08 08:49] LABS: ALB/GLOB RATIO 1.1 (1.0-2.1); ALBUMIN 3.7 g/dL (3.5-5.0); ALT/SGPT 15 U/L (9-52); AST/SGOT 21 U/L (14-36); BLOOD UREA NITROGEN 44 mg/dL (7-17); CALCIUM 10.1 mg/dl (8.6-10.4); GFR NON-AFRICAN AMERICAN > 60
--- NOTE | 2018-06-08 09:49 | CP.PCM.PN ---
Subjective - Date & Time of Evaluation Date of Evaluation: 06/07/18 Time of Evaluation: 08:20 - Subjective Subjective: Patient seen and evaluated Comfortable and no cardiac events noted Non verbal Physical Examination - Constitutional Appears: Well, Chronically Ill - Respiratory Exam Respiratory Exam: NORMAL BREATHING PATTERN - Cardiovascular Exam Cardiovascular Exam: Tachycardia - GI/Abdominal Exam GI & Abdominal Exam: Soft. absent: Tenderness Additional comments: Excoriation and erythema around GT is improving - Psychiatric Exam Psychiatric exam: Flat Affect - Skin Skin Exam: Normal Color Assessment and Plan (1) CAD hx of stents Status: Stable (2) GI bleed Assessment & Plan: stable DU Change Protonix to GT Status: Acute (3) Sepsis Status: Acute (4) Electrolyte abnormality Status: Acute (5) Ischemic hepatitis Assessment & Plan: resolved Status: Acute (6) Respiratory failure with hypoxia Status: Acute (7) Infection of gastrostomy site Assessment & Plan: Gradually resolving with local care Status: Acute Objective - Vital Signs/Intake and Output Vital Signs (last 24 hours): Temp Pulse Resp BP Pulse Ox 98.5 F 93 H 20 105/55 L 99 06/08/18 08:11 06/08/18 08:11 06/08/18 08:11 06/08/18 08:11 06/08/18 08:11 Intake and Output: 06/08/18 06/08/18 06:59 18:59 Intake Total 760 Output Total 450 Balance 310 - Medications Medications: Current Medications Albuterol/Ipratropium (Duoneb 3 Mg/0.5 Mg (3 Ml) Ud) 3 ml INH RQ8 [facility] Last Admin: 06/08/18 07:45 Dose: 3 ml Ascorbic Acid (Vitamin C 500 Mg Tab) 1,000 mg PO DAILY [facility] Last Admin: 06/07/18 10:56 Dose: 1,000 mg Diltiazem HCl (Cardizem) 30 mg PO QID [facility] Last Admin: 06/07/18 22:01 Dose: 30 mg Insulin Glargine (Lantus) 25 unit SC DAILY [facility] Last Admin: 06/07/18 10:54 Dose: 25 units Insulin Human Regular (Novolin R) 0 unit SC Q6 [facility]; Protocol Last Admin: 06/08/18 06:19 Dose: 3 units Metoprolol Tartrate (Lopressor) 75 mg PO BID [facility] Last Admin: 06/07/18 17:33 Dose: Not Given Multivitamins/Vitamin C (Multi-Delyn Liquid) 5 ml PO DAILY [facility] Last Admin: 06/07/18 10:58 Dose: 5 ml Nystatin (Nystop Topical Powder) 1 applic TOP BID [facility] Last Admin: 06/07/18 17:34 Dose: 1 applic Pantoprazole Sodium (Protonix Susp) 40 mg PO 0600 [facility] Last Admin: 06/08/18 06:31 Dose: 40 mg Sitagliptin Phosphate (Januvia) 50 mg PO DAILY [facility] Last Admin: 06/07/18 10:58 Dose: 50 mg Zinc Sulfate (Zinc Sulfate 220 Mg Cap) 220 mg PO DAILY [facility] Last Admin: 06/07/18 10:58 Dose: 220 mg - Labs Labs: 06/08/18 08:17 06/08/18 08:17 PT 18.4 SECONDS (9.7-12.2) H 05/09/18 09:10 INR 1.7 05/09/18 09:10 APTT 25 SECONDS (21-34) 05/10/18 23:10
[2018-06-08] MEDS: Multiple Vitamins Oral Solution PO SCH (10:41)
[2018-06-08] MEDS: (Lantus) Insulin Glargine, Recombinant SC SCH (10:42)
--- NOTE | 2018-06-08 18:39 | CP.PCM.PN ---
Subjective - Date & Time of Evaluation Date of Evaluation: 06/08/18 Time of Evaluation: 18:39 - Subjective Subjective: sitting up comfortably today. She was able to talk. Not in any distress. Vital signs stable. Chest good air entry Regular heart sound nontender abdomen no pedal edema Patient has a PEG tube feeding. Will continue the current treatment. Awaiting for placement Objective - Vital Signs/Intake and Output Vital Signs (last 24 hours): Temp Pulse Resp BP Pulse Ox 98.3 F 114 H 20 129/76 99 06/08/18 16:00 06/08/18 16:00 06/08/18 16:00 06/08/18 17:52 06/08/18 16:00 Intake and Output: 06/08/18 06/08/18 06:59 18:59 Intake Total 760 280 Output Total 450 100 Balance 310 180 - Medications Medications: Current Medications Albuterol/Ipratropium (Duoneb 3 Mg/0.5 Mg (3 Ml) Ud) 3 ml INH RQ8 [facility] Last Admin: 06/08/18 15:58 Dose: 3 ml Ascorbic Acid (Vitamin C 500 Mg Tab) 1,000 mg PO DAILY [facility] Last Admin: 06/08/18 10:51 Dose: 1,000 mg Diltiazem HCl (Cardizem) 30 mg PO QID [facility] Last Admin: 06/08/18 17:50 Dose: 30 mg Insulin Glargine (Lantus) 25 unit SC DAILY [facility] Last Admin: 06/08/18 10:42 Dose: 25 units Insulin Human Regular (Novolin R) 0 unit SC Q6 [facility]; Protocol Last Admin: 06/08/18 12:07 Dose: 3 units Metoprolol Tartrate (Lopressor) 75 mg PO BID [facility] Last Admin: 06/08/18 17:52 Dose: 75 mg Multivitamins/Vitamin C (Multi-Delyn Liquid) 5 ml PO DAILY [facility] Last Admin: 06/08/18 10:41 Dose: 5 ml Nystatin (Nystop Topical Powder) 1 applic TOP BID [facility] Last Admin: 06/08/18 17:50 Dose: 1 applic Pantoprazole Sodium (Protonix Susp) 40 mg PO 0600 [facility] Last Admin: 06/08/18 06:31 Dose: 40 mg Sitagliptin Phosphate (Januvia) 50 mg PO DAILY [facility] Last Admin: 06/08/18 10:50 Dose: 50 mg Zinc Sulfate (Zinc Sulfate 220 Mg Cap) 220 mg PO DAILY [facility] Last Admin: 06/08/18 10:41 Dose: 220 mg - Labs Labs: 06/08/18 08:17 06/08/18 08:17 PT 18.4 SECONDS (9.7-12.2) H 05/09/18 09:10 INR 1.7 05/09/18 09:10 APTT 25 SECONDS (21-34) 05/10/18 23:10
--- NOTE | 2018-06-08 19:51 | CP.PCM.PN ---
Subjective - Date & Time of Evaluation Date of Evaluation: 06/08/18 Time of Evaluation: 13:05 - Subjective Subjective: Patient seen and evaluated Comfortable and no cardiac events noted Communicating Not fully orients Physical Examination - Constitutional Appears: Well, Chronically Ill - Respiratory Exam Respiratory Exam: NORMAL BREATHING PATTERN - Cardiovascular Exam Cardiovascular Exam: Tachycardia - GI/Abdominal Exam GI & Abdominal Exam: Soft. absent: Tenderness Additional comments: Excoriation and erythema around GT is improving - Psychiatric Exam Psychiatric exam: Flat Affect - Skin Skin Exam: Normal Color Assessment and Plan (1) CAD hx of stents Status: Stable (2) GI bleed Assessment & Plan: stable DU Change Protonix to GT Status: Acute (3) Sepsis Status: Acute (4) Electrolyte abnormality Status: Acute (5) Ischemic hepatitis Assessment & Plan: resolved Status: Acute (6) Respiratory failure with hypoxia Status: Acute (7) Infection of gastrostomy site Assessment & Plan: Gradually resolving with local care Status: Acute Objective - Vital Signs/Intake and Output Vital Signs (last 24 hours): Temp Pulse Resp BP Pulse Ox 98.3 F 114 H 20 129/76 99 06/08/18 16:00 06/08/18 16:00 06/08/18 16:00 06/08/18 17:52 06/08/18 16:00 Intake and Output: 06/08/18 06/09/18 18:59 06:59 Intake Total 280 Output Total 100 Balance 180 - Medications Medications: Current Medications Albuterol/Ipratropium (Duoneb 3 Mg/0.5 Mg (3 Ml) Ud) 3 ml INH RQ8 [facility] Last Admin: 06/08/18 15:58 Dose: 3 ml Ascorbic Acid (Vitamin C 500 Mg Tab) 1,000 mg PO DAILY [facility] Last Admin: 06/08/18 10:51 Dose: 1,000 mg Diltiazem HCl (Cardizem) 30 mg PO QID [facility] Last Admin: 06/08/18 17:50 Dose: 30 mg Insulin Glargine (Lantus) 25 unit SC DAILY [facility] Last Admin: 06/08/18 10:42 Dose: 25 units Insulin Human Regular (Novolin R) 0 unit SC Q6 [facility]; Protocol Last Admin: 06/08/18 12:07 Dose: 3 units Metoprolol Tartrate (Lopressor) 75 mg PO BID [facility] Last Admin: 06/08/18 17:52 Dose: 75 mg Multivitamins/Vitamin C (Multi-Delyn Liquid) 5 ml PO DAILY [facility] Last Admin: 06/08/18 10:41 Dose: 5 ml Nystatin (Nystop Topical Powder) 1 applic TOP BID [facility] Last Admin: 06/08/18 17:50 Dose: 1 applic Pantoprazole Sodium (Protonix Susp) 40 mg PO 0600 [facility] Last Admin: 06/08/18 06:31 Dose: 40 mg Sitagliptin Phosphate (Januvia) 50 mg PO DAILY [facility] Last Admin: 06/08/18 10:50 Dose: 50 mg Zinc Sulfate (Zinc Sulfate 220 Mg Cap) 220 mg PO DAILY [facility] Last Admin: 06/08/18 10:41 Dose: 220 mg - Labs Labs: 06/08/18 08:17 06/08/18 08:17 PT 18.4 SECONDS (9.7-12.2) H 05/09/18 09:10 INR 1.7 05/09/18 09:10 APTT 25 SECONDS (21-34) 05/10/18 23:10
[2018-06-09] MEDS: (Novolin R) Insulin Human Regular 100 units/ml vial SC SCH ×4 (00:16→18:00)
[2018-06-09] MEDS: Albuterol-Ipratrop 3 mg / 0.5 (3 ml) UD INH SCH ×3 (00:55→15:05)
[2018-06-09] MEDS: Pantoprazole 40 mg Susp UD PO SCH (05:16)
[2018-06-09] MEDS: Multiple Vitamins Oral Solution PO SCH (10:14)
[2018-06-09] MEDS: (Lantus) Insulin Glargine, Recombinant SC SCH (10:23)
--- NOTE | 2018-06-09 18:59 | CP.PCM.PN ---
Subjective - Date & Time of Evaluation Date of Evaluation: 06/09/18 Time of Evaluation: 18:58 - Subjective Subjective: Patient is morning more awake and responding. She was able to talk. She denies any chest pain. Was out of bed to chair. On examination: Vital signs stable. Chest good air entry. Regular heart sound noted. No labs done today. Clinically otherwise stable. Awaiting for placement. Objective - Vital Signs/Intake and Output Vital Signs (last 24 hours): Temp Pulse Resp BP Pulse Ox 97.6 F 82 20 150/74 96 06/09/18 15:10 06/09/18 15:10 06/09/18 15:10 06/09/18 17:43 06/09/18 15:10 Intake and Output: 06/09/18 06/09/18 06:59 18:59 Intake Total 380 380 Output Total 400 Balance -20 380 - Medications Medications: Current Medications Albuterol/Ipratropium (Duoneb 3 Mg/0.5 Mg (3 Ml) Ud) 3 ml INH RQ8 [facility] Last Admin: 06/09/18 15:05 Dose: 3 ml Ascorbic Acid (Vitamin C 500 Mg Tab) 1,000 mg PO DAILY [facility] Last Admin: 06/09/18 10:13 Dose: 1,000 mg Diltiazem HCl (Cardizem) 30 mg PO QID [facility] Last Admin: 06/09/18 17:45 Dose: 30 mg Insulin Glargine (Lantus) 25 unit SC DAILY [facility] Last Admin: 06/09/18 10:23 Dose: 25 units Insulin Human Regular (Novolin R) 0 unit SC Q6 [facility]; Protocol Last Admin: 06/09/18 11:44 Dose: 4 units Metoprolol Tartrate (Lopressor) 75 mg PO BID [facility] Last Admin: 06/09/18 17:43 Dose: 75 mg Multivitamins/Vitamin C (Multi-Delyn Liquid) 5 ml PO DAILY [facility] Last Admin: 06/09/18 10:14 Dose: 5 ml Nystatin (Nystop Topical Powder) 1 applic TOP BID [facility] Last Admin: 06/09/18 17:41 Dose: 1 applic Pantoprazole Sodium (Protonix Susp) 40 mg PO 0600 [facility] Last Admin: 06/09/18 05:16 Dose: 40 mg Sitagliptin Phosphate (Januvia) 50 mg PO DAILY [facility] Last Admin: 06/09/18 10:13 Dose: 50 mg Zinc Sulfate (Zinc Sulfate 220 Mg Cap) 220 mg PO DAILY [facility] Last Admin: 06/09/18 10:13 Dose: 220 mg - Labs Labs: 06/08/18 08:17 06/08/18 08:17 PT 18.4 SECONDS (9.7-12.2) H 05/09/18 09:10 INR 1.7 05/09/18 09:10 APTT 25 SECONDS (21-34) 05/10/18 23:10
--- NOTE | 2018-06-09 22:01 | CP.PCM.PN ---
Subjective - Date & Time of Evaluation Date of Evaluation: 06/09/18 Time of Evaluation: 10:20 - Subjective Subjective: Patient seen and evaluated Comfortable and no cardiac events noted Communicating Not fully orients Physical Examination - Constitutional Appears: Well, Chronically Ill - Respiratory Exam Respiratory Exam: NORMAL BREATHING PATTERN - Cardiovascular Exam Cardiovascular Exam: Tachycardia - GI/Abdominal Exam GI & Abdominal Exam: Soft. absent: Tenderness Additional comments: Excoriation and erythema around GT is improving - Psychiatric Exam Psychiatric exam: Flat Affect - Skin Skin Exam: Normal Color Assessment and Plan (1) CAD hx of stents Status: Stable (2) GI bleed Assessment & Plan: stable DU Change Protonix to GT Status: Acute (3) Sepsis Status: Acute (4) Electrolyte abnormality Status: Acute (5) Ischemic hepatitis Assessment & Plan: resolved Status: Acute (6) Respiratory failure with hypoxia Status: Acute (7) Infection of gastrostomy site Assessment & Plan: Gradually resolving with local care Status: Acute Objective Objective - Vital Signs/Intake and Output Vital Signs (last 24 hours): Temp Pulse Resp BP Pulse Ox 97.6 F 82 20 150/74 96 06/09/18 15:10 06/09/18 15:10 06/09/18 15:10 06/09/18 17:43 06/09/18 15:10 Intake and Output: 06/09/18 06/10/18 18:59 06:59 Intake Total 380 Balance 380 - Medications Medications: Current Medications Albuterol/Ipratropium (Duoneb 3 Mg/0.5 Mg (3 Ml) Ud) 3 ml INH RQ8 [facility] Last Admin: 06/09/18 15:05 Dose: 3 ml Ascorbic Acid (Vitamin C 500 Mg Tab) 1,000 mg PO DAILY [facility] Last Admin: 06/09/18 10:13 Dose: 1,000 mg Diltiazem HCl (Cardizem) 30 mg PO QID [facility] Last Admin: 06/09/18 21:49 Dose: 30 mg Insulin Glargine (Lantus) 25 unit SC DAILY [facility] Last Admin: 06/09/18 10:23 Dose: 25 units Insulin Human Regular (Novolin R) 0 unit SC Q6 [facility]; Protocol Last Admin: 06/09/18 18:00 Dose: 3 units Metoprolol Tartrate (Lopressor) 75 mg PO BID [facility] Last Admin: 06/09/18 17:43 Dose: 75 mg Multivitamins/Vitamin C (Multi-Delyn Liquid) 5 ml PO DAILY [facility] Last Admin: 06/09/18 10:14 Dose: 5 ml Nystatin (Nystop Topical Powder) 1 applic TOP BID [facility] Last Admin: 06/09/18 17:41 Dose: 1 applic Pantoprazole Sodium (Protonix Susp) 40 mg PO 0600 [facility] Last Admin: 06/09/18 05:16 Dose: 40 mg Sitagliptin Phosphate (Januvia) 50 mg PO DAILY [facility] Last Admin: 06/09/18 10:13 Dose: 50 mg Zinc Sulfate (Zinc Sulfate 220 Mg Cap) 220 mg PO DAILY [facility] Last Admin: 06/09/18 10:13 Dose: 220 mg - Labs Labs: 06/08/18 08:17 06/08/18 08:17 PT 18.4 SECONDS (9.7-12.2) H 05/09/18 09:10 INR 1.7 05/09/18 09:10 APTT 25 SECONDS (21-34) 05/10/18 23:10
[2018-06-10] MEDS: (Novolin R) Insulin Human Regular 100 units/ml vial SC SCH ×4 (00:31→18:05)
[2018-06-10] MEDS: Albuterol-Ipratrop 3 mg / 0.5 (3 ml) UD INH SCH ×3 (00:56→15:35)
[2018-06-10] MEDS: Pantoprazole 40 mg Susp UD PO SCH (05:39)
[2018-06-10 08:50] LABS: BASO # 0.1 K/uL (0.0-0.2); BASO % 0.8 % (0.0-2.0); EOS # 0.3 K/uL (0.0-0.7); HEMOGLOBIN 10.8 g/dL (11.0-16.0); LYMPH # 1.5 K/uL (1.0-4.3); LYMPH % 14.7 % (20.0-40.0); MEAN CELL VOLUME 91.4 fL (81.0-99.0); MEAN CORPUSCULAR HEMOGLOBIN 30.5 pg (27.0-31.0); MEAN CORPUSCULAR HGB CONC 33.4 g/dL (33.0-37.0); MEAN PLATELET VOLUME 8.9 fL (7.2-11.7); MONO # 0.7 K/uL (0.0-0.8); NEUT # 7.8 K/uL (1.8-7.0); NEUT % 74.5 % (50.0-75.0); RBC 3.53 Mil/uL (3.80-5.20); RED CELL DISTRIBUTION WIDTH 16.5 % (11.5-14.5); WHITE BLOOD COUNT 10.4 K/uL (4.8-10.8)
[2018-06-10 10:22] LABS: ALB/GLOB RATIO 1.1 (1.0-2.1); ALBUMIN 3.7 g/dL (3.5-5.0); ALT/SGPT 10 U/L (9-52); AST/SGOT 25 U/L (14-36); BLOOD UREA NITROGEN 48 mg/dL (7-17); GFR NON-AFRICAN AMERICAN > 60
[2018-06-10] MEDS: (Lantus) Insulin Glargine, Recombinant SC SCH (11:09)
[2018-06-10] MEDS: Multiple Vitamins Oral Solution PO SCH (11:11)
[2018-06-10] MEDS: Bacitracin/Neomycin/Polymyxin Oint(30GM) TOP SCH (19:51)
[2018-06-11] MEDS: (Novolin R) Insulin Human Regular 100 units/ml vial SC SCH ×4 (00:31→18:19)
[2018-06-11] MEDS: Albuterol-Ipratrop 3 mg / 0.5 (3 ml) UD INH SCH ×3 (01:58→20:24)
[2018-06-11] MEDS: Pantoprazole 40 mg Susp UD PO SCH (05:39)
--- NOTE | 2018-06-11 06:14 | CP.PCM.PN ---
Subjective - Date & Time of Evaluation Date of Evaluation: 06/10/18 Time of Evaluation: 16:20 - Subjective Subjective: Patient seen and evaluated No cardiac events noted Stable Objective - Vital Signs/Intake and Output Vital Signs (last 24 hours): Temp Pulse Resp BP Pulse Ox 98.5 F 75 20 117/68 100 06/11/18 00:00 06/11/18 00:00 06/11/18 00:00 06/11/18 00:00 06/11/18 00:00 Intake and Output: 06/10/18 06/11/18 18:59 06:59 Intake Total 380 480 Output Total 400 400 Balance -20 80 - Medications Medications: Current Medications Albuterol/Ipratropium (Duoneb 3 Mg/0.5 Mg (3 Ml) Ud) 3 ml INH RQ8 [facility] Last Admin: 06/11/18 01:58 Dose: Not Given Ascorbic Acid (Vitamin C 500 Mg Tab) 1,000 mg PO DAILY [facility] Last Admin: 06/10/18 11:10 Dose: 1,000 mg Diltiazem HCl (Cardizem) 30 mg PO QID [facility] Last Admin: 06/10/18 21:01 Dose: 30 mg Insulin Glargine (Lantus) 25 unit SC DAILY [facility] Last Admin: 06/10/18 11:09 Dose: 25 units Insulin Human Regular (Novolin R) 0 unit SC Q6 [facility]; Protocol Last Admin: 06/11/18 00:31 Dose: Not Given Metoprolol Tartrate (Lopressor) 75 mg PO BID [facility] Last Admin: 06/10/18 17:13 Dose: 75 mg Multivitamins/Vitamin C (Multi-Delyn Liquid) 5 ml PO DAILY [facility] Last Admin: 06/10/18 11:11 Dose: 5 ml Neomycin/Polymyxin/Bacitracin (Neosporin Triple Antibiotic Oint) 0 gm TOP DAILY [facility] Last Admin: 06/10/18 19:51 Dose: 1 applic Nystatin (Nystop Topical Powder) 1 applic TOP BID [facility] Last Admin: 06/10/18 17:12 Dose: 1 applic Pantoprazole Sodium (Protonix Susp) 40 mg PO 0600 [facility] Last Admin: 06/11/18 05:39 Dose: 40 mg Sitagliptin Phosphate (Januvia) 50 mg PO DAILY [facility] Last Admin: 06/10/18 11:10 Dose: 50 mg Zinc Sulfate (Zinc Sulfate 220 Mg Cap) 220 mg PO DAILY [facility] Last Admin: 06/10/18 11:12 Dose: 220 mg - Labs Labs: 06/10/18 08:37 06/10/18 08:37 PT 18.4 SECONDS (9.7-12.2) H 05/09/18 09:10 INR 1.7 05/09/18 09:10 APTT 25 SECONDS (21-34) 05/10/18 23:10
[2018-06-11] MEDS: (Lantus) Insulin Glargine, Recombinant SC SCH (09:26)
[2018-06-11] MEDS: Bacitracin/Neomycin/Polymyxin Oint(30GM) TOP SCH (09:27)
[2018-06-11] MEDS: Multiple Vitamins Oral Solution PO SCH (09:27)
--- NOTE | 2018-06-11 10:29 | EEG ---
DATE: 06/04/2018 This is a 16-channel electroencephalogram of awake and drowsy adult. During the study, photic stimulation was performed. Hyperventilation was not performed. Resting electroencephalogram consist of moderate voltage 30 to 40 volts, 4 to 5 Hz delta mixed with theta activity seen at posterior dominant rhythm. Intermittent some movement muscle artifact contaminated the background rhythm. The photic stimulation did not evoke driving response noted at 2 to 20 Hz. IMPRESSION: This is abnormal electroencephalogram because of the of bilateral cerebral dysfunction. This is probably secondary to metabolic vascular degenerative process. Please correlate the finding with neurological and radiological studies. Curtis Morales MD MTDD
--- NOTE | 2018-06-11 18:11 | CP.PCM.PN ---
Subjective - Date & Time of Evaluation Date of Evaluation: 06/10/18 Time of Evaluation: 18:09 ( ) - Subjective Subjective: Patient is now awake and responding. Sitting up comfortably. Coughing slightly better. Tolerating the PEG feeding. On examination: Vital signs stable. Chest good air entry minimal expiratory wheezing noted Assessment and recommendation: 87-year-old female with history of CAD, coronary artery bypass grafting, pneumonia, aspiration, COPD, achalasia cardia, status post a PEG. Currently on PEG feeding. Diabetes uncontrolled. Pneumonia. respiratory failure. Improving. Patient is currently receiving physical therapy. Awaiting for placement Objective - Vital Signs/Intake and Output Vital Signs (last 24 hours): Temp Pulse Resp BP Pulse Ox 98.5 F 84 20 131/77 100 06/11/18 17:33 06/11/18 17:33 06/11/18 17:33 06/11/18 17:33 06/11/18 17:33 Intake and Output: 06/11/18 06/11/18 06:59 18:59 Intake Total 480 760 Output Total 400 400 Balance 80 360 - Medications Medications: Current Medications Albuterol/Ipratropium (Duoneb 3 Mg/0.5 Mg (3 Ml) Ud) 3 ml INH RQ8 [facility] Last Admin: 06/11/18 09:50 Dose: 3 ml Ascorbic Acid (Vitamin C 500 Mg Tab) 1,000 mg PO DAILY [facility] Last Admin: 06/11/18 09:26 Dose: 1,000 mg Diltiazem HCl (Cardizem) 30 mg PO QID [facility] Last Admin: 06/11/18 13:19 Dose: 30 mg Insulin Glargine (Lantus) 25 unit SC DAILY [facility] Last Admin: 06/11/18 09:26 Dose: 25 units Insulin Human Regular (Novolin R) 0 unit SC Q6 [facility]; Protocol Last Admin: 06/11/18 11:30 Dose: 2 units Metoprolol Tartrate (Lopressor) 75 mg PO BID [facility] Last Admin: 06/11/18 09:25 Dose: 75 mg Multivitamins/Vitamin C (Multi-Delyn Liquid) 5 ml PO DAILY [facility] Last Admin: 06/11/18 09:27 Dose: 5 ml Neomycin/Polymyxin/Bacitracin (Neosporin Triple Antibiotic Oint) 0 gm TOP DAILY [facility] Last Admin: 06/11/18 09:27 Dose: 1 applic Nystatin (Nystop Topical Powder) 1 applic TOP BID [facility] Last Admin: 06/11/18 09:27 Dose: 1 applic Pantoprazole Sodium (Protonix Susp) 40 mg PO 0600 [facility] Last Admin: 06/11/18 05:39 Dose: 40 mg Sitagliptin Phosphate (Januvia) 50 mg PO DAILY [facility] Last Admin: 06/11/18 09:26 Dose: 50 mg Zinc Sulfate (Zinc Sulfate 220 Mg Cap) 220 mg PO DAILY [facility] Last Admin: 06/11/18 09:26 Dose: 220 mg - Labs Labs: 06/10/18 08:37 06/10/18 08:37 PT 18.4 SECONDS (9.7-12.2) H 05/09/18 09:10 INR 1.7 05/09/18 09:10 APTT 25 SECONDS (21-34) 05/10/18 23:10
--- NOTE | 2018-06-11 18:12 | CP.PCM.PN ---
Subjective - Date & Time of Evaluation Date of Evaluation: 06/11/18 Time of Evaluation: 18:11 - Subjective Subjective: Patient is now awake and responding. Sitting up comfortably. Coughing slightly better. Tolerating the PEG feeding. On examination: Vital signs stable. Chest good air entry minimal expiratory wheezing noted Assessment and recommendation: 87-year-old female with history of CAD, coronary artery bypass grafting, pneumonia, aspiration, COPD, achalasia cardia, status post a PEG. Currently on PEG feeding. Diabetes uncontrolled. Pneumonia. Acute respiratory failure, improving Improving. Patient is currently receiving physical therapy. Patient has no placement in the prison because of the insurance. She can discharge home, with home physical therapy Objective - Vital Signs/Intake and Output Vital Signs (last 24 hours): Temp Pulse Resp BP Pulse Ox 98.5 F 84 20 131/77 100 06/11/18 17:33 06/11/18 17:33 06/11/18 17:33 06/11/18 17:33 06/11/18 17:33 Intake and Output: 06/11/18 06/11/18 06:59 18:59 Intake Total 480 760 Output Total 400 400 Balance 80 360 - Medications Medications: Current Medications Albuterol/Ipratropium (Duoneb 3 Mg/0.5 Mg (3 Ml) Ud) 3 ml INH RQ8 [facility] Last Admin: 06/11/18 09:50 Dose: 3 ml Ascorbic Acid (Vitamin C 500 Mg Tab) 1,000 mg PO DAILY [facility] Last Admin: 06/11/18 09:26 Dose: 1,000 mg Diltiazem HCl (Cardizem) 30 mg PO QID [facility] Last Admin: 06/11/18 13:19 Dose: 30 mg Insulin Glargine (Lantus) 25 unit SC DAILY [facility] Last Admin: 06/11/18 09:26 Dose: 25 units Insulin Human Regular (Novolin R) 0 unit SC Q6 [facility]; Protocol Last Admin: 06/11/18 11:30 Dose: 2 units Metoprolol Tartrate (Lopressor) 75 mg PO BID [facility] Last Admin: 06/11/18 09:25 Dose: 75 mg Multivitamins/Vitamin C (Multi-Delyn Liquid) 5 ml PO DAILY [facility] Last Admin: 06/11/18 09:27 Dose: 5 ml Neomycin/Polymyxin/Bacitracin (Neosporin Triple Antibiotic Oint) 0 gm TOP DAILY [facility] Last Admin: 06/11/18 09:27 Dose: 1 applic Nystatin (Nystop Topical Powder) 1 applic TOP BID [facility] Last Admin: 06/11/18 09:27 Dose: 1 applic Pantoprazole Sodium (Protonix Susp) 40 mg PO 0600 [facility] Last Admin: 06/11/18 05:39 Dose: 40 mg Sitagliptin Phosphate (Januvia) 50 mg PO DAILY [facility] Last Admin: 06/11/18 09:26 Dose: 50 mg Zinc Sulfate (Zinc Sulfate 220 Mg Cap) 220 mg PO DAILY [facility] Last Admin: 06/11/18 09:26 Dose: 220 mg - Labs Labs: 06/10/18 08:37 06/10/18 08:37 PT 18.4 SECONDS (9.7-12.2) H 05/09/18 09:10 INR 1.7 05/09/18 09:10 APTT 25 SECONDS (21-34) 05/10/18 23:10
[2018-06-12] MEDS: Albuterol-Ipratrop 3 mg / 0.5 (3 ml) UD INH SCH ×3 (00:13→16:02)
[2018-06-12] MEDS: (Novolin R) Insulin Human Regular 100 units/ml vial SC SCH ×3 (00:24→12:04)
[2018-06-12] MEDS: Pantoprazole 40 mg Susp UD PO SCH (05:33)
[2018-06-12 08:09] VITALS: O2SAT 100
[2018-06-12] MEDS: (Lantus) Insulin Glargine, Recombinant SC SCH (09:33)
[2018-06-12] MEDS: Bacitracin/Neomycin/Polymyxin Oint(30GM) TOP SCH (09:34)
[2018-06-12] MEDS: Multiple Vitamins Oral Solution PO SCH (09:41)
--- NOTE | 2018-06-12 15:15 | CP.PCM.PN ---
Subjective - Date & Time of Evaluation Date of Evaluation: 06/01/18 Time of Evaluation: 15:15 - Subjective Subjective: Patient is somewhat more sleepy but arousable. Sitting out of bed to chair. Tolerating the feeding. Cough better. On examination: Vital signs stable. Chest good air entry regular heart sound. Assessment: Patient is 87-year-old female now admitted with acute respirated failure. GI bleed. Multiorgan failure, improving. Patient is currently in the hospital still because of the worsening diabetes under control with diabetes. Patient also needs a rehabilitation currently don't have the rehabilitation time because of the insurance. Meanwhile we'll continue the physical therapy, out of bed to chair and will follow the patient Objective - Vital Signs/Intake and Output Vital Signs (last 24 hours): Temp Pulse Resp BP Pulse Ox 98.5 F 98 H 20 125/77 100 06/12/18 08:06 06/12/18 08:06 06/12/18 08:06 06/12/18 09:32 06/12/18 08:06 Intake and Output: 06/12/18 06/12/18 06:59 18:59 Intake Total 860 380 Output Total 350 Balance 510 380 - Medications Medications: Current Medications Albuterol/Ipratropium (Duoneb 3 Mg/0.5 Mg (3 Ml) Ud) 3 ml INH RQ8 [facility] Last Admin: 06/12/18 07:22 Dose: 3 ml Ascorbic Acid (Vitamin C 500 Mg Tab) 1,000 mg PO DAILY [facility] Last Admin: 06/12/18 09:32 Dose: 1,000 mg Diltiazem HCl (Cardizem) 30 mg PO QID [facility] Last Admin: 06/12/18 14:24 Dose: 30 mg Insulin Glargine (Lantus) 25 unit SC DAILY [facility] Last Admin: 06/12/18 09:33 Dose: 25 units Insulin Human Regular (Novolin R) 0 unit SC Q6 [facility]; Protocol Last Admin: 06/12/18 12:04 Dose: 2 units Metoprolol Tartrate (Lopressor) 75 mg PO BID [facility] Last Admin: 06/12/18 09:32 Dose: 75 mg Multivitamins/Vitamin C (Multi-Delyn Liquid) 5 ml PO DAILY [facility] Last Admin: 06/12/18 09:41 Dose: 5 ml Neomycin/Polymyxin/Bacitracin (Neosporin Triple Antibiotic Oint) 0 gm TOP DAILY [facility] Last Admin: 06/12/18 09:34 Dose: 1 applic Nystatin (Nystop Topical Powder) 1 applic TOP BID [facility] Last Admin: 06/12/18 09:34 Dose: 1 applic Pantoprazole Sodium (Protonix Susp) 40 mg PO 0600 [facility] Last Admin: 06/12/18 05:33 Dose: 40 mg Sitagliptin Phosphate (Januvia) 50 mg PO DAILY [facility] Last Admin: 06/12/18 09:33 Dose: 50 mg Zinc Sulfate (Zinc Sulfate 220 Mg Cap) 220 mg PO DAILY [facility] Last Admin: 06/12/18 09:33 Dose: 220 mg - Labs Labs: 06/10/18 08:37 06/10/18 08:37 PT 18.4 SECONDS (9.7-12.2) H 05/09/18 09:10 INR 1.7 05/09/18 09:10 APTT 25 SECONDS (21-34) 05/10/18 23:10
--- NOTE | 2018-06-12 15:17 | CP.PCM.PN ---
Subjective - Date & Time of Evaluation Date of Evaluation: 06/02/18 Time of Evaluation: 15:17 - Subjective Subjective: Patient is somewhat more sleepy but arousable. Sitting out of bed to chair. Tolerating the feeding. Cough better. On examination: Vital signs stable. Chest good air entry regular heart sound. Assessment: Patient is 87-year-old female now admitted with acute respirated failure. GI bleed. Multiorgan failure, improving. Patient is currently in the hospital still because of the worsening diabetes under control with diabetes. Patient also needs a rehabilitation currently don't have the rehabilitation time because of the insurance. Meanwhile we'll continue the physical therapy, out of bed to chair and will follow the patient Objective - Vital Signs/Intake and Output Vital Signs (last 24 hours): Temp Pulse Resp BP Pulse Ox 98.5 F 98 H 20 125/77 100 06/12/18 08:06 06/12/18 08:06 06/12/18 08:06 06/12/18 09:32 06/12/18 08:06 Intake and Output: 06/12/18 06/12/18 06:59 18:59 Intake Total 860 380 Output Total 350 Balance 510 380 - Medications Medications: Current Medications Albuterol/Ipratropium (Duoneb 3 Mg/0.5 Mg (3 Ml) Ud) 3 ml INH RQ8 [facility] Last Admin: 06/12/18 07:22 Dose: 3 ml Ascorbic Acid (Vitamin C 500 Mg Tab) 1,000 mg PO DAILY [facility] Last Admin: 06/12/18 09:32 Dose: 1,000 mg Diltiazem HCl (Cardizem) 30 mg PO QID [facility] Last Admin: 06/12/18 14:24 Dose: 30 mg Insulin Glargine (Lantus) 25 unit SC DAILY [facility] Last Admin: 06/12/18 09:33 Dose: 25 units Insulin Human Regular (Novolin R) 0 unit SC Q6 [facility]; Protocol Last Admin: 06/12/18 12:04 Dose: 2 units Metoprolol Tartrate (Lopressor) 75 mg PO BID [facility] Last Admin: 06/12/18 09:32 Dose: 75 mg Multivitamins/Vitamin C (Multi-Delyn Liquid) 5 ml PO DAILY [facility] Last Admin: 06/12/18 09:41 Dose: 5 ml Neomycin/Polymyxin/Bacitracin (Neosporin Triple Antibiotic Oint) 0 gm TOP DAILY [facility] Last Admin: 06/12/18 09:34 Dose: 1 applic Nystatin (Nystop Topical Powder) 1 applic TOP BID [facility] Last Admin: 06/12/18 09:34 Dose: 1 applic Pantoprazole Sodium (Protonix Susp) 40 mg PO 0600 [facility] Last Admin: 06/12/18 05:33 Dose: 40 mg Sitagliptin Phosphate (Januvia) 50 mg PO DAILY [facility] Last Admin: 06/12/18 09:33 Dose: 50 mg Zinc Sulfate (Zinc Sulfate 220 Mg Cap) 220 mg PO DAILY [facility] Last Admin: 06/12/18 09:33 Dose: 220 mg - Labs Labs: 06/10/18 08:37 06/10/18 08:37 PT 18.4 SECONDS (9.7-12.2) H 05/09/18 09:10 INR 1.7 05/09/18 09:10 APTT 25 SECONDS (21-34) 05/10/18 23:10
--- NOTE | 2018-06-12 15:18 | CP.PCM.PN ---
Subjective - Date & Time of Evaluation Date of Evaluation: 06/06/18 Time of Evaluation: 15:18 - Subjective Subjective: Patient is somewhat more sleepy but arousable. Sitting out of bed to chair. Tolerating the feeding. Cough better. On examination: Vital signs stable. Chest good air entry regular heart sound. Assessment: Patient is 87-year-old female now admitted with acute respirated failure. GI bleed. Multiorgan failure, improving. Patient is currently in the hospital still because of the worsening diabetes under control with diabetes. Patient also needs a rehabilitation currently don't have the rehabilitation time because of the insurance. Meanwhile we'll continue the physical therapy, out of bed to chair and will follow the patient Objective - Vital Signs/Intake and Output Vital Signs (last 24 hours): Temp Pulse Resp BP Pulse Ox 98.5 F 98 H 20 125/77 100 06/12/18 08:06 06/12/18 08:06 06/12/18 08:06 06/12/18 09:32 06/12/18 08:06 Intake and Output: 06/12/18 06/12/18 06:59 18:59 Intake Total 860 380 Output Total 350 Balance 510 380 - Medications Medications: Current Medications Albuterol/Ipratropium (Duoneb 3 Mg/0.5 Mg (3 Ml) Ud) 3 ml INH RQ8 [facility] Last Admin: 06/12/18 07:22 Dose: 3 ml Ascorbic Acid (Vitamin C 500 Mg Tab) 1,000 mg PO DAILY [facility] Last Admin: 06/12/18 09:32 Dose: 1,000 mg Diltiazem HCl (Cardizem) 30 mg PO QID [facility] Last Admin: 06/12/18 14:24 Dose: 30 mg Insulin Glargine (Lantus) 25 unit SC DAILY [facility] Last Admin: 06/12/18 09:33 Dose: 25 units Insulin Human Regular (Novolin R) 0 unit SC Q6 [facility]; Protocol Last Admin: 06/12/18 12:04 Dose: 2 units Metoprolol Tartrate (Lopressor) 75 mg PO BID [facility] Last Admin: 06/12/18 09:32 Dose: 75 mg Multivitamins/Vitamin C (Multi-Delyn Liquid) 5 ml PO DAILY [facility] Last Admin: 06/12/18 09:41 Dose: 5 ml Neomycin/Polymyxin/Bacitracin (Neosporin Triple Antibiotic Oint) 0 gm TOP DAILY [facility] Last Admin: 06/12/18 09:34 Dose: 1 applic Nystatin (Nystop Topical Powder) 1 applic TOP BID [facility] Last Admin: 06/12/18 09:34 Dose: 1 applic Pantoprazole Sodium (Protonix Susp) 40 mg PO 0600 [facility] Last Admin: 06/12/18 05:33 Dose: 40 mg Sitagliptin Phosphate (Januvia) 50 mg PO DAILY [facility] Last Admin: 06/12/18 09:33 Dose: 50 mg Zinc Sulfate (Zinc Sulfate 220 Mg Cap) 220 mg PO DAILY [facility] Last Admin: 06/12/18 09:33 Dose: 220 mg - Labs Labs: 06/10/18 08:37 06/10/18 08:37 PT 18.4 SECONDS (9.7-12.2) H 05/09/18 09:10 INR 1.7 05/09/18 09:10 APTT 25 SECONDS (21-34) 05/10/18 23:10
[2018-06-12 15:58] VITALS: BP 101/65; PULSE 84; TEMP 97.8
--- NOTE | 2018-06-12 16:05 | CP.PCM.DIS ---
Provider - Provider Date of Admission: 05/07/18 09:58 Attending physician: Luis Manuel Patel MD Time Spent in preparation of Discharge (in minutes): 45 Hospital Course - Lab Results Lab Results: Micro Results 05/30/18 18:52 Naris MRSA Culture - Final MRSA NOT DETECTED 05/26/18 04:43 Naris MRSA Culture - Final MRSA NOT DETECTED 05/15/18 Unknown Sputum Gram Stain - Final 05/15/18 Unknown Sputum Sputum Culture - Final Yeast Species 05/07/18 17:55 Blood Blood Culture - Final NO GROWTH AFTER 5 DAYS 05/07/18 17:55 Blood Gram Stain - Final TEST NOT PERFORMED 05/07/18 09:01 Blood Blood Culture - Final NO GROWTH AFTER 5 DAYS 05/07/18 09:01 Blood Gram Stain - Final TEST NOT PERFORMED 05/07/18 11:46 Peg Site Gram Stain - Final 05/07/18 11:46 Peg Site Wound Culture - Final Klebsiella Pneumoniae Ssp Pneu 05/07/18 11:46 Naris MRSA Culture (Admit) - Final MRSA NOT DETECTED 05/07/18 09:43 Urine,Clean Catch Urine Culture - Final No Growth (<1,000 CFU/ML) Most Recent Lab Values WBC 10.4 K/uL (4.8-10.8) 06/10/18 08:37 RBC 3.53 Mil/uL (3.80-5.20) L 06/10/18 08:37 Hgb 10.8 g/dL (11.0-16.0) L 06/10/18 08:37 Hct 32.2 % (34.0-47.0) L 06/10/18 08:37 MCV 91.4 fL (81.0-99.0) 06/10/18 08:37 MCH 30.5 pg (27.0-31.0) 06/10/18 08:37 MCHC 33.4 g/dL (33.0-37.0) 06/10/18 08:37 RDW 16.5 % (11.5-14.5) H 06/10/18 08:37 Plt Count 235 K/uL (130-400) 06/10/18 08:37 MPV 8.9 fL (7.2-11.7) 06/10/18 08:37 Neut % (Auto) 74.5 % (50.0-75.0) 06/10/18 08:37 Lymph % (Auto) 14.7 % (20.0-40.0) L 06/10/18 08:37 Murray % (Auto) 7.0 % (0.0-10.0) 06/10/18 08:37 Eos % (Auto) 3.0 % (0.0-4.0) 06/10/18 08:37 Baso % (Auto) 0.8 % (0.0-2.0) 06/10/18 08:37 Neut # (Auto) 7.8 K/uL (1.8-7.0) H 06/10/18 08:37 Lymph # (Auto) 1.5 K/uL (1.0-4.3) 06/10/18 08:37 Murray # (Auto) 0.7 K/uL (0.0-0.8) 06/10/18 08:37 Eos # (Auto) 0.3 K/uL (0.0-0.7) 06/10/18 08:37 Baso # (Auto) 0.1 K/uL (0.0-0.2) 06/10/18 08:37 Neutrophils % (Manual) 76 % (50-75) H 05/18/18 06:33 Band Neutrophils % 7 % (0-2) H 05/18/18 06:33 Lymphocytes % (Manual) 11 % (20-40) L 05/18/18 06:33 Monocytes % (Manual) 3 % (0-10) 05/18/18 06:33 Eosinophils % (Manual) 2 % (0-4) 05/18/18 06:33 Metamyelocytes % 1 % (0-0) H 05/18/18 06:33 Nucleated RBC % 1 % (0-0) H 05/10/18 23:10 Differential Comment 05/07/18 08:52 Toxic Granulation Present 05/18/18 06:33 Platelet Estimate Normal (NORMAL) 05/18/18 06:33 Large Platelets Present 05/18/18 06:33 Polychromasia Slight 05/18/18 06:33 Hypochromasia (manual) Slight 05/18/18 06:33 Poikilocytosis (manual Slight 05/18/18 06:33 Basophilic Stippling Slight 05/18/18 06:33 Anisocytosis (manual) Slight 05/18/18 06:33 Tear Drop Cells Slight 05/18/18 06:33 Ovalocytes Slight 05/18/18 06:33 Eastman Cells Slight 05/11/18 06:36 ESR 85 mm/hr (0-20) H 06/03/18 08:20 PT 18.4 SECONDS (9.7-12.2) H 05/09/18 09:10 INR 1.7 05/09/18 09:10 APTT 25 SECONDS (21-34) 05/10/18 23:10 Fibrinogen 218 mg/dL (200-400) 05/09/18 17:11 Puncture Site Rra 06/04/18 20:55 pCO2 53 mm/Hg (35-45) H 06/04/18 20:55 pO2 111 mm/Hg (80-100) H 06/04/18 20:55 HCO3 32.7 mmol/L (21-28) H 06/04/18 20:55 ABG pH 7.44 (7.35-7.45) 06/04/18 20:55 ABG Total CO2 37.6 mmol/L (22-28) H 06/04/18 20:55 ABG O2 Saturation 99.7 % (95-98) H 06/04/18 20:55 ABG Base Excess 9.9 mmol/L (-2.0-3.0) H 06/04/18 20:55 ABG Hemoglobin 10.2 g/dL (11.7-17.4) L 05/17/18 05:07 ABG Carboxyhemoglobin 1.7 % (0.5-1.5) H 05/17/18 05:07 POC ABG HHb (Measured) 1.3 % (0.0-5.0) 05/17/18 05:07 ABG Methemoglobin 1.4 % (0.0-3.0) 05/17/18 05:07 Scout Test Pos 06/04/18 20:55 ABG Potassium 4.2 mmol/L (3.6-5.2) 06/04/18 20:55 VBG pH 7.39 (7.32-7.43) 05/07/18 09:00 VBG pCO2 40 mmHg (40-60) 05/07/18 09:00 VBG HCO3 23.5 mmol/L 05/07/18 09:00 VBG Total CO2 25.4 mmol/L (22-28) 05/07/18 09:00 VBG O2 Sat (Calc) 63.8 % (40-65) 05/07/18 09:00 VBG Base Excess -0.7 mmol/L (0.0-2.0) L 05/07/18 09:00 VBG Potassium 8.5 mmol/L (3.6-5.2) H* 05/07/18 09:00 A-a O2 Difference 8.0 mm/Hg 06/04/18 20:55 Respiratory Index 0.1 06/04/18 20:55 Hgb O2 Saturation 95.7 % (95.0-98.0) 05/17/18 05:07 Sodium 147.0 mmol/l (132-148) 06/04/18 20:55 Chloride 110.0 mmol/L (98-107) H 06/04/18 20:55 Glucose 323 mg/dl (65-105) H 06/04/18 20:55 Lactate 2.9 mmol/L (0.7-2.1) H 06/04/18 20:55 Liter Flow 1.5 06/04/18 20:55 Vent Mode Bipap 05/17/18 19:34 Mechanical Rate 16 05/17/18 05:07 FiO2 26.0 % 06/04/18 20:55 Tidal Volume 400 05/17/18 05:07 PEEP 5 05/17/18 05:07 Inspiratory BiPAP 14 05/17/18 19:34 Expiratory BiPAP 5 05/17/18 19:34 Crit Value Called To Dr morrison 06/04/18 12:53 Crit Value Called By Keagan 06/04/18 12:53 Crit Value Read Back Y 06/04/18 12:53 Blood Gas Notified Time 1257 06/04/18 12:53 Sodium 140 mmol/L (132-148) 06/10/18 08:37 Potassium 4.5 mmol/L (3.6-5.2) 06/10/18 08:37 Chloride 100 mmol/L (98-107) 06/10/18 08:37 Carbon Dioxide 33 mmol/L (22-30) H 06/10/18 08:37 Anion Gap 12 (10-20) 06/10/18 08:37 BUN 48 mg/dL (7-17) H 06/10/18 08:37 Creatinine 0.7 mg/dL (0.7-1.2) 06/10/18 08:37 Est GFR ( Amer) > 60 06/10/18 08:37 Est GFR (Non-Af Amer) > 60 06/10/18 08:37 POC Glucose (mg/dL) 196 mg/dL (65-110) H 06/12/18 11:41 Random Glucose 230 mg/dL (65-105) H 06/10/18 08:37 Hemoglobin A1c 7.4 % (4.2-6.5) H 06/03/18 08:20 Lactic Acid 1.9 mmol/L (0.7-2.1) 05/09/18 21:16 Calcium 10.0 mg/dl (8.6-10.4) 06/10/18 08:37 Phosphorus 3.4 mg/dL (2.5-4.5) 06/10/18 08:37 Magnesium 2.3 mg/dL (1.6-2.3) 06/10/18 08:37 Total Bilirubin 0.6 mg/dL (0.2-1.3) 06/10/18 08:37 AST 25 U/L (14-36) 06/10/18 08:37 ALT 10 U/L (9-52) 06/10/18 08:37 Alkaline Phosphatase 66 U/L (38-126) 06/10/18 08:37 Ammonia 14 umol/L (9-33) 06/03/18 08:20 Troponin I 0.0950 ng/mL (0.00-0.120) 05/12/18 00:02 C-Reactive Protein 7.40 mg/L (0.0-9.9) 06/03/18 08:20 Total Protein 7.2 g/dL (6.3-8.3) 06/10/18 08:37 Albumin 3.7 g/dL (3.5-5.0) 06/10/18 08:37 Globulin 3.5 gm/dL (2.2-3.9) 06/10/18 08:37 Albumin/Globulin Ratio 1.1 (1.0-2.1) 06/10/18 08:37 Procalcitonin 0.10 NG/ML (0.19-0.49) L 06/05/18 07:33 Free T4 1.02 ng/dL (0.78-2.19) 06/03/18 08:20 TSH 3rd Generation 0.67 mIU/L (0.46-4.68) 06/03/18 08:20 Prolactin 6.9 ng/mL (3.0-18.9) 06/03/18 08:20 Arterial Blood Potassium 4.2 mmol/L (3.6-5.2) 06/04/18 20:55 Venous Blood Potassium 8.5 mmol/L (3.6-5.2) H* 05/07/18 09:00 Urine Color Yellow (YELLOW) 05/07/18 09:43 Urine Clarity Clear (Clear) 05/07/18 09:43 Urine pH 5.0 (5.0-8.0) 05/07/18 09:43 Ur Specific [place] 1.025 (1.003-1.030) 05/07/18 09:43 Urine Protein Negative mg/dL (NEGATIVE) 05/07/18 09:43 Urine Glucose (UA) 3+ mg/dL (Normal) H 05/07/18 09:43 Urine Ketones Negative mg/dL (NEGATIVE) 05/07/18 09:43 Urine Blood Negative (NEGATIVE) 05/07/18 09:43 Urine Nitrate Negative (NEGATIVE) 05/07/18 09:43 Urine Bilirubin Negative (NEGATIVE) 05/07/18 09:43 Urine Urobilinogen Normal mg/dL (0.2-1.0) 05/07/18 09:43 Ur Leukocyte Esterase Neg Sylvie/uL (Negative) 05/07/18 09:43 Urine WBC (Auto) 1 /hpf (0-5) 05/07/18 09:43 Urine RBC (Auto) 1 /hpf (0-3) 05/07/18 09:43 Stool Leukocytes, Qual Negative (NEGATIVE) 05/17/18 10:54 Random Vancomycin 8.3 ug/mL 05/17/18 06:46 B-Hydroxybutyrate 0.50 mM (0.02-0.27) H 05/09/18 13:33 MAG IgM Antibody <1:1600 titer (<1:1600) 05/07/18 09:43 C. 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 Patient was initially admitted to the intensive care unit because of the possibility of DKA. She was started on insulin and the shows closely monitored. Blood sugar is controlled. But within 48 hours patient suddenly developed severe respirated distance, agonal breathing, hypertension, bradycardia. Patient was intubated, and also fluid challenges was given. Patient had a massive GI bleed following that episode, associate with the very high lactic acidosis. Patient was given multiple transfusion, including FFP. Overall condition slowly improved after transfusion as well as FFP. She underwent upper endoscopy evaluation, and there was a bleeding duodenal ulcer noted, which was cauterized. Patient condition got improved. She was also placed on antibiotic for the ongoing abdominal wall cellulitis, associate with the sepsis. Blood sugar is controlled well. She was extubated, and placed on BiPAP as needed. Slowly her condition got better. Physical therapy started. She was transferred to the medical floor. Patient currently receiving PEG feeding. Is currently on Tylenol as needed. Crestor 10 mg daily Diltiazem 30 mg 4 times a day Aspirin 81 mg daily Meclizine 12.5 mg when necessary. She will continue nebulizer. Metoprolol tartrate 75 milligrams twice a day Protonix 40 mg daily Januvia 50 mg daily Lantus 25 units subcutaneous daily. Vitamin C 500 mg twice a day Zinc sulfate 220 mg daily Final diagnoses: Acute respirated failure associate with the multiorgan failure with septic shock. Hemorrhagic shock. Bleeding duodenal ulcer, status post of endoscopy cauterization. Transfusion. Uncontrolled diabetes with DKA. Diabetes, hypertension, COPD the Status post coronary artery bypass grafting. Achalasia cardia, status post to take. I spoke to the patient's daughter in detail will follow the patient Discharge Exam - Head Exam Head Exam: NORMOCEPHALIC Discharge Plan - Follow Up Plan Condition: GUARDED Disposition: HOME/ ROUTINE Instructions: Sepsis, Adult (DC), Diabetic Ketoacidosis (DC), Normocytic Normochromic Anemia (DC), Sepsis (DC)
[2018-06-12] MEDS ORDERED: Influenza Vaccine 60 MCG/0.5 ML SYR (3 yr & up) IM ONE (16:07)
== END 2018-06-12 17:27 | disposition home health service (06) | DRG 870 ==
LOC: C.ER 08:24 → C.9I 09:58 → C.6T 05-26 04:57 → C.9I 05-26 05:59 → C.3T 05-30 16:54
PROVIDERS: ADMIT Internal Medicine Critical Care Medicine; ATTEND Internal Medicine
PROC: 3E0G76Z Introduction of Nutritional Substance into Upper GI, Via Natural or Artificial Opening (ICD-10-PCS; 2018-05-07)
PROC: 0W3P8ZZ Control Bleeding in Gastrointestinal Tract, Via Natural or Artificial Opening Endoscopic (ICD-10-PCS; 2018-05-09)
PROC: 5A1945Z Respiratory Ventilation, 24-96 Consecutive Hours (ICD-10-PCS; 2018-05-09)
PROC: 0BH17EZ Insertion of Endotracheal Airway into Trachea, Via Natural or Artificial Opening (ICD-10-PCS; 2018-05-09)
PROC: 30233K1 Transfusion of Nonautologous Frozen Plasma into Peripheral Vein, Percutaneous Approach (ICD-10-PCS; 2018-05-09)
PROC: 30233N1 Transfusion of Nonautologous Red Blood Cells into Peripheral Vein, Percutaneous Approach (ICD-10-PCS; 2018-05-09)
PROC: 5A1955Z Respiratory Ventilation, Greater than 96 Consecutive Hours (ICD-10-PCS; principal; 2018-05-09 12:00)
PROC: 5A09557 Assistance with Respiratory Ventilation, Greater than 96 Consecutive Hours, Continuous Positive Airway Pressure (ICD-10-PCS; 2018-05-17)
PROC: 05H933Z Insertion of Infusion Device into Right Brachial Vein, Percutaneous Approach (ICD-10-PCS; 2018-05-22)
DX: A41.9 Sepsis, unspecified organism (principal); E11.10 Type 2 diabetes mellitus with ketoacidosis without coma; K26.4 Chronic or unspecified duodenal ulcer with hemorrhage; J96.01 Acute respiratory failure with hypoxia; R57.0 Cardiogenic shock; K72.00 Acute and subacute hepatic failure without coma; R65.21 Severe sepsis with septic shock; R57.8 Other shock; K94.22 Gastrostomy infection; D62 Acute posthemorrhagic anemia; D68.9 Coagulation defect, unspecified; G93.1 Anoxic brain damage, not elsewhere classified; I13.0 Hypertensive heart and chronic kidney disease with heart failure and stage 1 through stage 4 chronic kidney disease, or unspecified chronic kidney disease; L03.311 Cellulitis of abdominal wall; K22.0 Achalasia of cardia; E86.1 Hypovolemia; K44.9 Diaphragmatic hernia without obstruction or gangrene; D64.9 Anemia, unspecified; E11.22 Type 2 diabetes mellitus with diabetic chronic kidney disease; E86.0 Dehydration; F41.9 Anxiety disorder, unspecified; I25.10 Atherosclerotic heart disease of native coronary artery without angina pectoris; I48.91 Unspecified atrial fibrillation; I50.9 Heart failure, unspecified; J44.9 Chronic obstructive pulmonary disease, unspecified; K21.9 Gastro-esophageal reflux disease without esophagitis; K22.2 Esophageal obstruction; K57.90 Diverticulosis of intestine, part unspecified, without perforation or abscess without bleeding; K64.9 Unspecified hemorrhoids; K75.89 Other specified inflammatory liver diseases; L89.159 Pressure ulcer of sacral region, unspecified stage; N18.9 Chronic kidney disease, unspecified; M06.9 Rheumatoid arthritis, unspecified; E78.5 Hyperlipidemia, unspecified; M81.0 Age-related osteoporosis without current pathological fracture; E78.00 Pure hypercholesterolemia, unspecified; Z79.4 Long term (current) use of insulin; Z79.82 Long term (current) use of aspirin; Z79.899 Other long term (current) drug therapy; Z87.01 Personal history of pneumonia (recurrent); Z87.891 Personal history of nicotine dependence; Z93.0 Tracheostomy status; Z95.0 Presence of cardiac pacemaker; Z95.1 Presence of aortocoronary bypass graft; Z95.5 Presence of coronary angioplasty implant and graft

== ENCOUNTER 2018-06-17 01:59 | Inpatient (IN) | payer MEDICARE ==
[2018-06-17 02:01] VITALS: BMI 19.0
[2018-06-17 02:55] LABS: BASO # 0.1 K/uL (0.0-0.2); BASO % 0.7 % (0.0-2.0); EOS # 0.3 K/uL (0.0-0.7); EOS % 2.9 % (0.0-4.0); LYMPH # 2.1 K/uL (1.0-4.3); LYMPH % 22.5 % (20.0-40.0); MEAN CELL VOLUME 90.8 fL (81.0-99.0); MEAN CORPUSCULAR HEMOGLOBIN 31.9 pg (27.0-31.0); MEAN CORPUSCULAR HGB CONC 35.1 g/dL (33.0-37.0); MEAN PLATELET VOLUME 8.2 fL (7.2-11.7); MONO # 0.9 K/uL (0.0-0.8); MONO % 9.3 % (0.0-10.0); NEUT # 6.1 K/uL (1.8-7.0); NEUT % 64.6 % (50.0-75.0); NRBC % 0.2 % (0.0-2.0); RBC 3.78 Mil/uL (3.80-5.20); WHITE BLOOD COUNT 9.5 K/uL (4.8-10.8)
[2018-06-17 03:00] LABS: VENOUS BLOOD GAS BASE EXCESS 1.7 mmol/L (0.0-2.0); VENOUS BLOOD GAS PCO2 45 mmHg (40-60); VENOUS BLOOD GAS PO2 40 mm/Hg (30-55); VENOUS BLOOD PH 7.39 (7.32-7.43)
[2018-06-17 03:08] LABS: PROTHROMBIN TIME 11.4 SECONDS (9.7-12.2)
[2018-06-17 03:11] LABS: ALB/GLOB RATIO 1.1 (1.0-2.1); ALBUMIN 4.1 g/dL (3.5-5.0); ALT/SGPT 16 U/L (9-52); AST/SGOT 23 U/L (14-36); BLOOD UREA NITROGEN 33 mg/dL (7-17); CALCIUM 9.9 mg/dl (8.6-10.4); GFR NON-AFRICAN AMERICAN > 60
[2018-06-17 04:17] LABS: URINE BACTERIA MOD (<OCC); URINE BILIRUBIN NEGATIVE (NEGATIVE); URINE BLOOD NEGATIVE (NEGATIVE); URINE CLARITY Hazy (Clear); URINE COLOR Yellow (YELLOW); URINE GLUCOSE (UA) 1+ mg/dL (Normal); URINE LEUKOCYTE ESTERASE 3+ Leu/uL (Negative); URINE PROTEIN 1+ mg/dL (NEGATIVE); URINE UROBILINOGEN NORMAL mg/dL (0.2-1.0)
[2018-06-17] MEDS ORDERED: Aztreonam 1 GM in Sodium Chloride 0.9% 100 ML IVPB ONE (04:51)
[2018-06-17] MEDS ORDERED: Sodium Chloride 0.9% 1,000 ML ONE (05:34)
[2018-06-17] MEDS: Sodium Chloride 0.9% 1,000 ML IV SCH ×2 (05:40→21:04)
--- NOTE | 2018-06-17 05:54 | C.PDOC ---
History Of Present Illness 87 year old female is brought to the ED by ambulance for evaluation. As per daughter, patient has cough, congestion, sleeping a lot and has not been acting as per her baseline. Patient recently underwent admission from 05/07-06/12 for sepsis and DKA. While she was hospitalized, patient underwent acute respiratory failure and was intubated. Patient also had a bleed and was given multiple transfusions. Additional information limited secondary to patient being a poor historian. Time Seen by Provider: 06/17/18 02:22 Chief Complaint (Nursing): Cough, Cold, Congestion History Per: Patient, EMS, Other (daughter) History/Exam Limitations: other (poor historian ) Current Symptoms Are (Timing): Still Present Past Medical History Reviewed: Historical Data, Nursing Documentation, Vital Signs Vital Signs: Last Vital Signs Temp 98.8 F 06/17/18 02:19 Pulse 81 06/17/18 02:19 Resp 26 H 06/17/18 02:19 BP 147/72 06/17/18 02:19 Pulse Ox 98 06/17/18 02:19 - Medical History PMH: Anxiety, Arthritis, Bronchitis, CAD, Cardia Arrhythmia, CHF, COPD, Diabetes, GERD (esophageal stricture), HTN, Hypercholesterolemia, Osteoporosis, Pneumonia, Rheumatoid Arthritis Denies: HIV, Chronic Kidney Disease, Seizures, Sexually Transmitted Disease Surgical History: CABG (12/16/1991), Carotid Endarterectomy (06/13/05), Coronary Stent, Pacemaker - [facility] Procedures ASSISTANCE WITH RESPIRATORY VENTILATION, >96 HRS, CPAP (05/07/18) BYPASS TRACHEA TO CUTANEOUS WITH TRACH DEV, PERC APPROACH (11/09/17) CHANGE OTHER DEVICE IN ABDOMINAL WALL, EXTERNAL APPROACH (08/03/15) CONTR CEREBR ARTERIOGRAM (06/13/05) CONTRAST AORTOGRAM (06/13/05) CONTRAST ARTERIOGRAM NEC (05/23/12) CONTROL BLEEDING IN GASTROINTESTINAL TRACT, ENDO (05/07/18) CORONAR ARTERIOGR-2 CATH (05/23/12) ENDOSC POLYPECTOMY OF LG INTEST (06/28/14) ENTERAL INFUSION OF CONCENTRATED NUT. SUBSTANCES (10/01/14) HEAD & NECK ENDARTER NEC (06/13/05) INJECT ANTICOAGULANT (06/13/05) INSERT PACE, SINGL HAYLEY IN CHEST SUBCU/FASCIA, OPEN (03/05/16) INSERTION OF ENDOTRACHEAL AIRWAY INTO TRACHEA, VIA OPENING (05/07/18) INSERTION OF INFUSION DEV INTO R BRACH VEIN, PERC APPROACH (05/07/18) INSERTION OF INFUSION DEV INTO SUP VENA CAVA, PERC APPROACH (11/09/17) INSERTION OF ONE VASCULAR STENT (05/23/12) INSERTION OF PACEMAKER LEAD INTO R VENTRICLE, PERC APPROACH (03/05/16) INSPECTION OF TRACHEOBRONCHIAL TREE, ENDO (11/09/17) INSRT OF DRUG-ELUTING CORON ARTERY STENTS(S) (05/23/12) INTRODUCTION OF NUTRITIONAL INTO UP GI, VIA OPENING (05/07/18) INTRODUCTION OF VASOPRESSOR INTO CENTRAL VEIN, PERC APPROACH (03/05/16) LEFT HEART CARDIAC CATH (05/23/12) LT HEART ANGIOCARDIOGRAM (05/23/12) MEASUREMENT OF CARDIAC PACEMAKER, EXTERNAL APPROACH (01/27/17) PACKED CELL TRANSFUSION (06/28/14) PERCUTANEOUS TRANSLUMINAL CORONARY ANGIOPLASTY [PTCA] (05/23/12) PERCUTANEOUS [ENDOSCOPIC] GASTROSTOMY [PEG] (10/01/14) PERFORMANCE OF CARDIAC PACING, CONTINUOUS (03/05/16) PROCEDURE ON SINGLE VESSEL (05/23/12) REPLACE GASTROSTOMY TUBE (02/09/15) RESPIRATORY VENTILATION, 24-96 CONSECUTIVE HOURS (05/07/18) RESPIRATORY VENTILATION, GREATER THAN 96 CONSECUTIVE HOURS (05/07/18) TRANSFUSE NONAUT FROZEN PLASMA IN PERIPH VEIN, PERC (05/07/18) TRANSFUSE NONAUT RED BLOOD CELLS IN PERIPH VEIN, PERC (05/07/18) Family History: States: Unknown Family Hx - Social History Hx Tobacco Use: No Hx Alcohol Use: No Hx Substance Use: No - Immunization History Hx Tetanus Toxoid Vaccination: No Hx Influenza Vaccination: No Hx Pneumococcal Vaccination: No Review Of Systems ENT: Positive for: Nose Congestion Respiratory: Positive for: Cough Neurological: Positive for: Altered Mental Status Physical Exam - Physical Exam Appears: Non-toxic, No Acute Distress Skin: Warm, Dry Head: Atraumatic, Normacephalic Eye(s): bilateral: Normal Inspection Oral Mucosa: Dry Neck: Supple Chest: Symmetrical, No Deformity, No Tenderness Cardiovascular: Rhythm Regular, No Murmur Respiratory: Decreased Breath Sounds, No Rales, Rhonchi, No Wheezing Gastrointestinal/Abdominal: Soft, No Tenderness, No Guarding, No Rebound, Other (PEG tube noted ) Extremity: Normal ROM, Capillary Refill (less than 2 seconds ) Neurological/Psych: Other (arousable to stimuli ) ED Course And Treatment - Laboratory Results Result Diagrams: 06/21/18 07:15 06/21/18 07:15 ECG: Interpreted By Me, Viewed By Me ECG Rhythm: Sinus Rhythm Interpretation Of ECG: Sinus Rhythm at rate 81bpm. Normal LA and QT intervals. Normal axis. LVH, Repolarization abnormalities, and right bundle branch block noted. Rate From EC O2 Sat by Pulse Oximetry: 98 (on RA) Pulse Ox Interpretation: Normal Medical Decision Making Medical Decision Making: Progress: Bloodwork, UA, CT Head, CXR, and EKG ordered and reviewed. Azactam IVP and IV Fl uids given. CT is negative, UA (+) for uti, BUN elevated 33, glucose elevated 232. Plan admit for further evaluation and management. Results and POC d/w family/patient who are agreeable w/POC. [address] Patel's cell. awaiting callback [address] Patel. Disposition Counseled Patient/Family Regarding: Studies Performed, Diagnosis - Disposition Disposition: HOSPITALIZED Disposition Time: 06:00 Condition: STABLE - Clinical Impression Clinical Impression: Altered mental status, UTI (urinary tract infection), Hyperglycemia - Scribe Statement The provider has reviewed the documentation as recorded by the Scribe (Juani Dennis) Provider Attestation: All medical record entries made by the Scribe were at my direction and personally dictated by me. I have reviewed the chart and agree that the record accurately reflects my personal performance of the history, physical exam, medical decision making, and the department course for this patient. I have also personally directed, reviewed, and agree with the discharge instructions and disposition.
[2018-06-17] MEDS: Albuterol-Ipratrop 3 mg / 0.5 (3 ml) UD INH SCH (08:00)
--- NOTE | 2018-06-17 08:47 | CT ---
Date of service: 06/17/2018 PROCEDURE: CT HEAD WITHOUT CONTRAST. HISTORY: Weakness. Evaluate for intracranial hemorrhage. COMPARISON: None available. TECHNIQUE: Axial computed tomography images were obtained through the head/brain without intravenous contrast. Radiation dose: Total exam DLP = 852.6 mGy-cm. This CT exam was performed using one or more of the following dose reduction techniques: Automated exposure control, adjustment of the mA and/or kV according to patient size, and/or use of iterative reconstruction technique. FINDINGS: HEMORRHAGE: No intracranial hemorrhage. BRAIN: No mass effect or edema. Diffuse generalized atrophy. Scattered focal lucencies in the subcortical and periventricular white matter suggestive for chronic microvascular ischemic change. VENTRICLES: Prominent related to diffuse generalized atrophy versus normal pressure hydrocephalus. Clinical correlation. CALVARIUM: Unremarkable. PARANASAL SINUSES: Mild mucosal thickening of the ethmoid air cells. MASTOID AIR CELLS: Unremarkable as visualized. No inflammatory changes. OTHER FINDINGS: Intracranial arterial calcifications. IMPRESSION: Age-appropriate cerebral and cerebellar atrophy. Mild chronic microvascular ischemic change. No evidence of acute intracranial abnormality. If symptoms persists, consider correlation with MRI. These findings were preliminarily reported at 4:02 a.m. on 06/17/[address] Martina Dockery from [employer] rad.
--- NOTE | 2018-06-17 09:04 | RAD ---
Chest x-ray single frontal view History: Shortness of breath. Comparison: 06/04/2018 Findings: Status post median sternotomy and CABG. Left-sided pacemaker. Atherosclerotic calcification at the aortic knob. Mild cardiomegaly. Mild venous congestion. Right hilar prominence. Patchy consolidative changes in the right infrahilar region. Biapical pleural thickening with upper lobe granulomatous changes. Scattered nodular densities in both lung driscoll. Degenerative changes in the spine. Impression: Status post median sternotomy and CABG. Left-sided pacemaker. Atherosclerotic calcification at the aortic knob. Mild cardiomegaly. Mild venous congestion. Right hilar prominence. Patchy consolidative changes in the right infrahilar region. Biapical pleural thickening with upper lobe granulomatous changes. Scattered nodular densities in both lung driscoll.
[2018-06-17] MEDS: (Lantus) Insulin Glargine, Recombinant SC SCH ×2 (10:07→21:29)
[2018-06-17] MEDS: Bacitracin/Neomycin/Polymyxin Oint(30GM) TOP SCH (10:51)
[2018-06-17] MEDS: (Novolin R) Insulin Human Regular 100 units/ml vial SC SCH ×3 (11:57→21:58)
[2018-06-17] MEDS: Aztreonam 1 GM in Sodium Chloride 0.9% 100 ML IVPB SCH ×2 (14:01→21:09)
--- NOTE | 2018-06-17 19:07 | CP.PCM.HP ---
History of Present Illness - History of Present Illness History of Present Illness: Chief complaint: Progressively increasing cough HPI: 87-year-old female with a history of hypertension COPD CAD, CABG, hypercholesterolemia, osteoporosis, history of pneumonia, history of tracheostomy following aspiration pneumonitis. Patient hasPatient was brought into the emergency room because of increasing cough, and shortness of breath, congested lungs. Patient family concerned that her to the emergency room. In the emergency room patient was evaluated, noted to have a urinary tract infection, needed hospitalization Patient has feeding tube. But significant redness, and excoriation around the tube noted. No vomiting. Patient in the past had a significant achalasia cardia, following that because of the esophageal stricture patient underwent gastrostomy tube. But gastrostomy tube had a multiple times the problems, frequent infection. Past medical history as noted above Surgical history CABG, status post a tracheostomy, PEG tube, multiple esophageal dilatation followed by Botox injection for achalasia cardia. Allergy as noted above Personal history: Ex-smoker. Review of system: Noted from the chart. Patient is responding well. But some respiratory distress noted. Abdominal distention minimally noted. Excoriation around the tube noted. Tracheostomy site healing On examination: Vital signs: Vital signs stable Chest bilateral good air entry, expiratory wheezing noted irregular heart sound, nontender abdomen, edema negative Patient has a right hand nail changes. Labs noted Evidence of UTI noted Assessment and recommendation: Patient is a 87-year-old female with a history of COPD, CAD, CABG, history of stent multiple times, aspiration pneumonia pneumonitis, status post a tracheostomy. Patient is on PEG tube. Patient admitted with urinary tract infection. Altered mental status. Will continue the IV antibiotic Tube feeding. Bronchodilator. DVT GI prophylaxis, patient had a recent history of duodenal ulcer and bleeding, currently off anticoagulation, we will hold aspirin, Plavix, anticoagulation Present on Admission - Present on Admission Any Indicators Present on Admission: No History of DVT/PE: No History of Uncontrolled Diabetes: No Urinary Catheter: No Decubitus Ulcer Present: No Past Patient History - Infectious Disease Hx of Infectious Diseases: None - Past Medical History & Family History Past Medical History?: Yes - Past Social History Smoking Status: Former Smoker - CARDIAC Hx Cardia Arrhythmia: Yes Hx Congestive Heart Failure: Yes Hx Hypercholesterolemia: Yes Hx Hypertension: Yes Hx Pacemaker: Yes - PULMONARY Hx Bronchitis: Yes Hx Chronic Obstructive Pulmonary Disease (COPD): Yes Hx Pneumonia: Yes - NEUROLOGICAL Hx Seizures: No - HEENT Hx HEENT Problems: Yes Hx Cataracts: Yes (2000 Rt.Eye,2009Left Eye) - RENAL Hx Chronic Kidney Disease: No - ENDOCRINE/METABOLIC Hx Endocrine Disorders: Yes Hx Diabetes Mellitus Type 2: Yes - HEMATOLOGICAL/ONCOLOGICAL Hx Human Immunodeficiency Virus (HIV): No - INTEGUMENTARY Hx Dermatological Problems: No - MUSCULOSKELETAL/RHEUMATOLOGICAL Hx Falls: Yes - GASTROINTESTINAL Hx Gastrointestinal Disorders: Yes Hx Colitis: Yes Hx Gastroesophageal Reflux: Yes HX Swallowing Problems: Yes (Achalasia. 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) Hx Coronary Stent: Yes - ANESTHESIA Hx Anesthesia: Yes Hx Anesthesia Reactions: No Hx Malignant Hyperthermia: No Meds Allergies/Adverse Reactions: Allergies Allergy/AdvReac Type Severity Reaction Status Date / Time iodine Allergy REDNESS Verified 06/17/18 02:26 Penicillins Allergy ANGIOEDEMA Verified 06/17/18 02:26 clopidogrel [From Plavix] AdvReac HEADACHE Verified 06/17/18 02:26 losartan [From Cozaar] AdvReac DIZZINESS Verified 06/17/18 02:26 nitroglycerin AdvReac DIZZINESS Verified 06/17/18 02:26 Results - Vital Signs Recent Vital Signs: Last Vital Signs Temp 98.8 F 06/17/18 15:00 Pulse 79 06/17/18 15:00 Resp 20 06/17/18 15:00 BP 125/79 06/17/18 15:00 Pulse Ox 99 06/17/18 15:00 - Labs Result Diagrams: 06/17/18 02:51 06/17/18 02:51 Labs: Laboratory Results - last 24 hr 06/17/18 06/17/18 06/17/18 02:41 02:50 02:51 WBC 9.5 RBC 3.78 L Hgb 12.0 Hct 34.3 MCV 90.8 MCH 31.9 H MCHC 35.1 RDW 17.0 H Plt Count 320 MPV 8.2 Neut % (Auto) 64.6 Lymph % (Auto) 22.5 [place] % (Auto) 9.3 Eos % (Auto) 2.9 Baso % (Auto) 0.7 Neut # (Auto) 6.1 Lymph # (Auto) 2.1 [place] # (Auto) 0.9 H Eos # (Auto) 0.3 Baso # (Auto) 0.1 PT INR APTT pO2 40 VBG pH 7.39 VBG pCO2 45 VBG HCO3 25.6 VBG Total CO2 28.6 H VBG O2 Sat (Calc) 80.8 H VBG Base Excess 1.7 VBG Potassium 4.2 Sodium 138.0 Chloride 102.0 Glucose 235 H Lactate 2.3 H Potassium Carbon Dioxide Anion Gap BUN Creatinine Est GFR ( Amer) Est GFR (Non-Af Amer) POC Glucose (mg/dL) 219 H Random Glucose Calcium Magnesium Total Bilirubin AST ALT Alkaline Phosphatase Troponin I Total Protein Albumin Globulin Albumin/Globulin Ratio Venous Blood Potassium 4.2 Urine Color Urine Clarity Urine pH Ur Specific [place] Urine Protein Urine Glucose (UA) Urine Ketones Urine Blood Urine Nitrate Urine Bilirubin Urine Urobilinogen Ur Leukocyte Esterase Urine WBC (Auto) Urine RBC (Auto) Urine Bacteria 06/17/18 06/17/18 06/17/18 02:51 02:51 04:03 WBC RBC Hgb Hct MCV MCH MCHC RDW Plt Count MPV Neut % (Auto) Lymph % (Auto) [place] % (Auto) Eos % (Auto) Baso % (Auto) Neut # (Auto) Lymph # (Auto) [place] # (Auto) Eos # (Auto) Baso # (Auto) PT 11.4 INR 1.0 APTT 25 pO2 VBG pH VBG pCO2 VBG HCO3 VBG Total CO2 VBG O2 Sat (Calc) VBG Base Excess VBG Potassium Sodium 136 Chloride 99 Glucose Lactate Potassium 4.4 Carbon Dioxide 25 Anion Gap 16 BUN 33 H Creatinine 0.6 L Est GFR ( Amer) > 60 Est GFR (Non-Af Amer) > 60 POC Glucose (mg/dL) Random Glucose 232 H Calcium 9.9 Magnesium 1.9 Total Bilirubin 1.0 AST 23 ALT 16 Alkaline Phosphatase 97 Troponin I < 0.0120 Total Protein 7.7 Albumin 4.1 Globulin 3.6 Albumin/Globulin Ratio 1.1 Venous Blood Potassium Urine Color Yellow Urine Clarity Hazy Urine pH 6.0 Ur Specific [place] 1.017 Urine Protein 1+ H Urine Glucose (UA) 1+ Urine Ketones Negative Urine Blood Negative Urine Nitrate Negative Urine Bilirubin Negative Urine Urobilinogen Normal Ur Leukocyte Esterase 3+ H Urine WBC (Auto) 73 H Urine RBC (Auto) 5 H Urine Bacteria Mod H 06/17/18 06/17/18 08:32 11:49 WBC RBC Hgb Hct MCV MCH MCHC RDW Plt Count MPV Neut % (Auto) Lymph % (Auto) [place] % (Auto) Eos % (Auto) Baso % (Auto) Neut # (Auto) Lymph # (Auto) [place] # (Auto) Eos # (Auto) Baso # (Auto) PT INR APTT pO2 VBG pH VBG pCO2 VBG HCO3 VBG Total CO2 VBG O2 Sat (Calc) VBG Base Excess VBG Potassium Sodium Chloride Glucose Lactate Potassium Carbon Dioxide Anion Gap BUN Creatinine Est GFR ( Amer) Est GFR (Non-Af Amer) POC Glucose (mg/dL) 203 H 157 H Random Glucose Calcium Magnesium Total Bilirubin AST ALT Alkaline Phosphatase Troponin I Total Protein Albumin Globulin Albumin/Globulin Ratio Venous Blood Potassium Urine Color Urine Clarity Urine pH Ur Specific [place] Urine Protein Urine Glucose (UA) Urine Ketones Urine Blood Urine Nitrate Urine Bilirubin Urine Urobilinogen Ur Leukocyte Esterase Urine WBC (Auto) Urine RBC (Auto) Urine Bacteria
[2018-06-18 00:40] VITALS: RESP 20
[2018-06-18] MEDS: Aztreonam 1 GM in Sodium Chloride 0.9% 100 ML IVPB SCH ×3 (05:48→21:00)
[2018-06-18] MEDS: Pantoprazole 40 mg Susp UD GT SCH (06:33)
[2018-06-18] MEDS: Sodium Chloride 0.9% 1,000 ML IV SCH (08:00)
[2018-06-18] MEDS: Albuterol-Ipratrop 3 mg / 0.5 (3 ml) UD INH SCH ×3 (08:15→20:28)
[2018-06-18] MEDS: (Novolin R) Insulin Human Regular 100 units/ml vial SC SCH ×4 (08:30→21:15)
[2018-06-18] MEDS: Bacitracin/Neomycin/Polymyxin Oint(30GM) TOP SCH (09:47)
--- NOTE | 2018-06-18 19:33 | CP.PCM.PN ---
Subjective - Date & Time of Evaluation Date of Evaluation: 06/18/18 Time of Evaluation: 19:32 - Subjective Subjective: pt is able to speak c/o hungry no pain diarrhea noted no chest pain vitals Temp Pulse Resp BP Pulse Ox 98.2 F 73 20 110/67 98 06/18/18 15:50 06/18/18 15:50 06/18/18 15:50 06/18/18 15:50 06/18/18 15:50 chest good air entry regular hs abd soft no edema labs noted UTI on antibiotic duoneb will continue antibiotic OOB to chair Objective - Vital Signs/Intake and Output Vital Signs (last 24 hours): Temp Pulse Resp BP Pulse Ox 98.2 F 73 20 110/67 98 06/18/18 15:50 06/18/18 15:50 06/18/18 15:50 06/18/18 15:50 06/18/18 15:50 Intake and Output: 06/18/18 06/19/18 18:59 06:59 Intake Total 1999 Balance 1999 - Medications Medications: Current Medications Acetaminophen (Tylenol 650 Mg Supp) 650 mg [place] Q6 PRN PRN Reason: Fever >100.4 F Albuterol/Ipratropium (Duoneb 3 Mg/0.5 Mg (3 Ml) Ud) 3 ml INH RQ6 [facility] Last Admin: 06/18/18 13:34 Dose: Not Given Diltiazem HCl (Cardizem) 30 mg GT QID [facility] Last Admin: 06/18/18 17:38 Dose: 30 mg Heparin Sodium (Porcine) (Heparin) 5,000 units SC Q12 [facility] Last Admin: 06/18/18 09:46 Dose: 5,000 units Sodium Chloride (Sodium Chloride 0.9%) 1,000 mls @ 75 mls/hr IV .[id number] [facility] Last Admin: 06/18/18 08:00 Dose: 75 mls/hr Aztreonam 1 gm/ Sodium (Chloride) 100 mls @ 100 mls/hr IVPB Q8 [facility]; Protocol Stop: 06/20/18 14:01 Last Admin: 06/18/18 13:58 Dose: 100 mls/hr Insulin Glargine (Lantus) 25 unit SC HS [facility] Last Admin: 06/17/18 10:07 Dose: Not Given Insulin Human Regular (Novolin R) 0 unit SC ACHS [facility]; Protocol Last Admin: 06/18/18 17:38 Dose: 1 units Meclizine HCl (Antivert) 12.5 mg PO Q12 PRN PRN Reason: vertigo Metoprolol Tartrate (Lopressor) 50 mg GT BID [facility] Last Admin: 06/18/18 17:38 Dose: 50 mg Neomycin/Polymyxin/Bacitracin (Neosporin Triple Antibiotic Oint) 0 gm TOP DAILY [facility] Last Admin: 06/18/18 09:47 Dose: 1 applic Nystatin (Nystop Topical Powder) 0 applic TOP BID [facility] Last Admin: 06/18/18 17:39 Dose: 1 applic Pantoprazole Sodium (Protonix Susp) 40 mg GT 0600 [facility] Last Admin: 06/18/18 06:33 Dose: 40 mg Rosuvastatin Calcium (Crestor) 10 mg GT HS [facility] Last Admin: 06/17/18 21:27 Dose: 10 mg - Labs Labs: 06/17/18 02:51 06/17/18 02:51 PT 11.4 SECONDS (9.7-12.2) 06/17/18 02:51 INR 1.0 06/17/18 02:51 APTT 25 SECONDS (21-34) 06/17/18 02:51
[2018-06-18] MEDS: (Lantus) Insulin Glargine, Recombinant SC SCH (21:57)
[2018-06-19] MEDS: Albuterol-Ipratrop 3 mg / 0.5 (3 ml) UD INH SCH ×4 (01:06→20:59)
[2018-06-19] MEDS: Aztreonam 1 GM in Sodium Chloride 0.9% 100 ML IVPB SCH ×3 (06:00→21:56)
[2018-06-19] MEDS: Pantoprazole 40 mg Susp UD GT SCH (06:03)
[2018-06-19] MEDS: (Novolin R) Insulin Human Regular 100 units/ml vial SC SCH ×4 (08:12→22:05)
[2018-06-19] MEDS: Bacitracin/Neomycin/Polymyxin Oint(30GM) TOP SCH (10:12)
[2018-06-19 14:23] LABS: BASO # 0.2 K/uL (0.0-0.2); BASO % 2.4 % (0.0-2.0); EOS # 0.6 K/uL (0.0-0.7); EOS % 7.6 % (0.0-4.0); HEMOGLOBIN 10.2 g/dL (11.0-16.0); LYMPH # 1.2 K/uL (1.0-4.3); MEAN CELL VOLUME 90.1 fL (81.0-99.0); MEAN CORPUSCULAR HEMOGLOBIN 31.8 pg (27.0-31.0); MEAN CORPUSCULAR HGB CONC 35.2 g/dL (33.0-37.0); MEAN PLATELET VOLUME 7.9 fL (7.2-11.7); MONO # 0.5 K/uL (0.0-0.8); MONO % 6.6 % (0.0-10.0); NEUT # 5.4 K/uL (1.8-7.0); NEUT % 68.4 % (50.0-75.0); NRBC % 0.1 % (0.0-2.0); RBC 3.2 Mil/uL (3.80-5.20); RED CELL DISTRIBUTION WIDTH 15.7 % (11.5-14.5)
[2018-06-19 14:45] LABS: BLOOD UREA NITROGEN 20 mg/dL (7-17); CALCIUM 9.4 mg/dl (8.6-10.4); GFR NON-AFRICAN AMERICAN > 60
[2018-06-19] MEDS: (Lantus) Insulin Glargine, Recombinant SC SCH (22:04)
[2018-06-20] MEDS: Albuterol-Ipratrop 3 mg / 0.5 (3 ml) UD INH SCH ×3 (01:28→20:05)
[2018-06-20] MEDS: Aztreonam 1 GM in Sodium Chloride 0.9% 100 ML IVPB SCH ×2 (05:59→13:43)
[2018-06-20] MEDS: Pantoprazole 40 mg Susp UD GT SCH (06:05)
[2018-06-20] MEDS: (Novolin R) Insulin Human Regular 100 units/ml vial SC SCH ×4 (08:19→22:02)
[2018-06-20] MEDS: Bacitracin/Neomycin/Polymyxin Oint(30GM) TOP SCH (09:53)
[2018-06-20] MEDS: (Lantus) Insulin Glargine, Recombinant SC SCH (22:02)
[2018-06-21] MEDS: Albuterol-Ipratrop 3 mg / 0.5 (3 ml) UD INH SCH ×4 (01:27→20:36)
[2018-06-21] MEDS: Pantoprazole 40 mg Susp UD GT SCH (06:11)
[2018-06-21 07:24] LABS: BASO # 0.1 K/uL (0.0-0.2); EOS # 0.5 K/uL (0.0-0.7); EOS % 6.2 % (0.0-4.0); HEMOGLOBIN 10.6 g/dL (11.0-16.0); LYMPH # 1.6 K/uL (1.0-4.3); LYMPH % 19.8 % (20.0-40.0); MEAN CELL VOLUME 91.2 fL (81.0-99.0); MEAN CORPUSCULAR HEMOGLOBIN 30.9 pg (27.0-31.0); MEAN CORPUSCULAR HGB CONC 33.9 g/dL (33.0-37.0); MEAN PLATELET VOLUME 7.7 fL (7.2-11.7); MONO # 0.7 K/uL (0.0-0.8); MONO % 9.2 % (0.0-10.0); NEUT # 5.2 K/uL (1.8-7.0); NEUT % 63.8 % (50.0-75.0); NRBC % 0.1 % (0.0-2.0); RBC 3.44 Mil/uL (3.80-5.20); RED CELL DISTRIBUTION WIDTH 15.9 % (11.5-14.5); WHITE BLOOD COUNT 8.1 K/uL (4.8-10.8)
[2018-06-21 07:49] LABS: ALB/GLOB RATIO 1.1 (1.0-2.1); ALBUMIN 3.7 g/dL (3.5-5.0); ALT/SGPT 25 U/L (9-52); AST/SGOT 26 U/L (14-36); BLOOD UREA NITROGEN 21 mg/dL (7-17); CALCIUM 9.9 mg/dl (8.6-10.4); GFR NON-AFRICAN AMERICAN > 60
[2018-06-21] MEDS: (Novolin R) Insulin Human Regular 100 units/ml vial SC SCH ×4 (08:00→21:30)
[2018-06-21] MEDS: Bacitracin/Neomycin/Polymyxin Oint(30GM) TOP SCH (09:17)
[2018-06-21] MEDS: (Lantus) Insulin Glargine, Recombinant SC SCH (21:28)
[2018-06-22] MEDS: Pantoprazole 40 mg Susp UD GT SCH (05:56)
[2018-06-22] MEDS: Albuterol-Ipratrop 3 mg / 0.5 (3 ml) UD INH SCH ×3 (07:30→20:35)
[2018-06-22] MEDS: (Novolin R) Insulin Human Regular 100 units/ml vial SC SCH ×4 (08:00→21:23)
--- NOTE | 2018-06-22 10:52 | CP.PCM.PN ---
Subjective - Date & Time of Evaluation Date of Evaluation: 06/20/18 Time of Evaluation: 10:52 - Subjective Subjective: Patient is still feeling lethargic at times. But easily arousable. Tolerating the PEG feeding No fever No abdominal pain Vital signs reviewed Chest good air entry regular heart sound nontender abdomen Patient is a 87-year-old female with multiple medical problems admitted with the urinary tract infection, urosepsis. Altered mental status currently feeling well Will continue the current treatment. Objective - Vital Signs/Intake and Output Vital Signs (last 24 hours): Temp Pulse Resp BP Pulse Ox 98.3 F 113 H 20 120/74 97 06/22/18 08:07 06/22/18 08:07 06/22/18 08:07 06/22/18 08:07 06/22/18 08:07 Intake and Output: 06/22/18 06/22/18 06:59 18:59 Intake Total 390 400 Output Total 1 Balance 390 399 - Medications Medications: Current Medications Acetaminophen (Tylenol 650 Mg Supp) 650 mg [place] Q6 PRN PRN Reason: Fever >100.4 F Albuterol/Ipratropium (Duoneb 3 Mg/0.5 Mg (3 Ml) Ud) 3 ml INH RQ6 [facility] Last Admin: 06/22/18 07:30 Dose: 3 ml Diltiazem HCl (Cardizem) 30 mg GT QID [facility] Last Admin: 06/21/18 21:28 Dose: 30 mg Insulin Glargine (Lantus) 25 unit SC HS [facility] Last Admin: 06/21/18 21:28 Dose: 25 units Insulin Human Regular (Novolin R) 0 unit SC ACHS [facility]; Protocol Last Admin: 06/22/18 08:00 Dose: 2 units Meclizine HCl (Antivert) 12.5 mg PO Q12 PRN PRN Reason: vertigo Metoprolol Tartrate (Lopressor) 50 mg GT BID [facility] Last Admin: 06/21/18 18:02 Dose: 50 mg Neomycin/Polymyxin/Bacitracin (Neosporin Triple Antibiotic Oint) 0 gm TOP DAILY [facility] Last Admin: 06/21/18 09:17 Dose: 1 applic Nystatin (Nystop Topical Powder) 0 applic TOP BID [facility] Last Admin: 06/21/18 18:12 Dose: 1 applic Pantoprazole Sodium (Protonix Susp) 40 mg GT 0600 [facility] Last Admin: 06/22/18 05:56 Dose: 40 mg Rosuvastatin Calcium (Crestor) 10 mg GT HS [facility] Last Admin: 06/21/18 21:27 Dose: 10 mg - Labs Labs: 06/21/18 07:15 06/21/18 07:15 PT 11.4 SECONDS (9.7-12.2) 06/17/18 02:51 INR 1.0 06/17/18 02:51 APTT 25 SECONDS (21-34) 06/17/18 02:51
--- NOTE | 2018-06-22 10:52 | CP.PCM.PN ---
Subjective - Date & Time of Evaluation Date of Evaluation: 06/19/18 Time of Evaluation: 10:52 - Subjective Subjective: Patient is still feeling lethargic at times. But easily arousable. Tolerating the PEG feeding No fever No abdominal pain Vital signs reviewed Chest good air entry regular heart sound nontender abdomen Patient is a 87-year-old female with multiple medical problems admitted with the urinary tract infection, urosepsis. Altered mental status currently feeling well Will continue the current treatment. Objective - Vital Signs/Intake and Output Vital Signs (last 24 hours): Temp Pulse Resp BP Pulse Ox 98.3 F 113 H 20 120/74 97 06/22/18 08:07 06/22/18 08:07 06/22/18 08:07 06/22/18 08:07 06/22/18 08:07 Intake and Output: 06/22/18 06/22/18 06:59 18:59 Intake Total 390 400 Output Total 1 Balance 390 399 - Medications Medications: Current Medications Acetaminophen (Tylenol 650 Mg Supp) 650 mg [place] Q6 PRN PRN Reason: Fever >100.4 F Albuterol/Ipratropium (Duoneb 3 Mg/0.5 Mg (3 Ml) Ud) 3 ml INH RQ6 [facility] Last Admin: 06/22/18 07:30 Dose: 3 ml Diltiazem HCl (Cardizem) 30 mg GT QID [facility] Last Admin: 06/21/18 21:28 Dose: 30 mg Insulin Glargine (Lantus) 25 unit SC HS [facility] Last Admin: 06/21/18 21:28 Dose: 25 units Insulin Human Regular (Novolin R) 0 unit SC ACHS [facility]; Protocol Last Admin: 06/22/18 08:00 Dose: 2 units Meclizine HCl (Antivert) 12.5 mg PO Q12 PRN PRN Reason: vertigo Metoprolol Tartrate (Lopressor) 50 mg GT BID [facility] Last Admin: 06/21/18 18:02 Dose: 50 mg Neomycin/Polymyxin/Bacitracin (Neosporin Triple Antibiotic Oint) 0 gm TOP DAILY [facility] Last Admin: 06/21/18 09:17 Dose: 1 applic Nystatin (Nystop Topical Powder) 0 applic TOP BID [facility] Last Admin: 06/21/18 18:12 Dose: 1 applic Pantoprazole Sodium (Protonix Susp) 40 mg GT 0600 [facility] Last Admin: 06/22/18 05:56 Dose: 40 mg Rosuvastatin Calcium (Crestor) 10 mg GT HS [facility] Last Admin: 06/21/18 21:27 Dose: 10 mg - Labs Labs: 06/21/18 07:15 06/21/18 07:15 PT 11.4 SECONDS (9.7-12.2) 06/17/18 02:51 INR 1.0 06/17/18 02:51 APTT 25 SECONDS (21-34) 06/17/18 02:51
--- NOTE | 2018-06-22 10:53 | CP.PCM.PN ---
Subjective - Date & Time of Evaluation Date of Evaluation: 06/21/18 Time of Evaluation: 10:52 - Subjective Subjective: Patient is still feeling lethargic at times. But easily arousable. Tolerating the PEG feeding No fever No abdominal pain Vital signs reviewed Chest good air entry regular heart sound nontender abdomen Patient is a 87-year-old female with multiple medical problems admitted with the urinary tract infection, urosepsis. Altered mental status currently feeling well Will continue the current treatment. awaiting for placement Objective - Vital Signs/Intake and Output Vital Signs (last 24 hours): Temp Pulse Resp BP Pulse Ox 98.3 F 113 H 20 120/74 97 06/22/18 08:07 06/22/18 08:07 06/22/18 08:07 06/22/18 08:07 06/22/18 08:07 Intake and Output: 06/22/18 06/22/18 06:59 18:59 Intake Total 390 400 Output Total 1 Balance 390 399 - Medications Medications: Current Medications Acetaminophen (Tylenol 650 Mg Supp) 650 mg [place] Q6 PRN PRN Reason: Fever >100.4 F Albuterol/Ipratropium (Duoneb 3 Mg/0.5 Mg (3 Ml) Ud) 3 ml INH RQ6 [facility] Last Admin: 06/22/18 07:30 Dose: 3 ml Diltiazem HCl (Cardizem) 30 mg GT QID [facility] Last Admin: 06/21/18 21:28 Dose: 30 mg Insulin Glargine (Lantus) 25 unit SC HS [facility] Last Admin: 06/21/18 21:28 Dose: 25 units Insulin Human Regular (Novolin R) 0 unit SC ACHS [facility]; Protocol Last Admin: 06/22/18 08:00 Dose: 2 units Meclizine HCl (Antivert) 12.5 mg PO Q12 PRN PRN Reason: vertigo Metoprolol Tartrate (Lopressor) 50 mg GT BID [facility] Last Admin: 06/21/18 18:02 Dose: 50 mg Neomycin/Polymyxin/Bacitracin (Neosporin Triple Antibiotic Oint) 0 gm TOP DAILY [facility] Last Admin: 06/21/18 09:17 Dose: 1 applic Nystatin (Nystop Topical Powder) 0 applic TOP BID [facility] Last Admin: 06/21/18 18:12 Dose: 1 applic Pantoprazole Sodium (Protonix Susp) 40 mg GT 0600 [facility] Last Admin: 06/22/18 05:56 Dose: 40 mg Rosuvastatin Calcium (Crestor) 10 mg GT HS [facility] Last Admin: 06/21/18 21:27 Dose: 10 mg - Labs Labs: 06/21/18 07:15 06/21/18 07:15 PT 11.4 SECONDS (9.7-12.2) 06/17/18 02:51 INR 1.0 06/17/18 02:51 APTT 25 SECONDS (21-34) 06/17/18 02:51
--- NOTE | 2018-06-22 10:53 | CP.PCM.PN ---
Subjective - Date & Time of Evaluation Date of Evaluation: 06/22/18 Time of Evaluation: 10:53 - Subjective Subjective: Patient is morning more awake and responding. She is answering questions. She has no chest pain. Cough minimally noted. But easily sleeping On examination: Vital signs are stable. Chest minimal bilateral wheezing noted Regular heart sound Abdomen soft Patient is 87-year-old female with a history of diabetes hypertension achalasia cardia status post a PEG COPD. Patient has a history of CABG in the past. Pacemaker placement. Recurrent sepsis. GI bleed. Currently off antiplatelets and anti-coagulation because of the bleeding recent ly. Will continue the current treatment. Slowly introduced the antiplatelets in one week. Objective - Vital Signs/Intake and Output Vital Signs (last 24 hours): Temp Pulse Resp BP Pulse Ox 98.3 F 113 H 20 120/74 97 06/22/18 08:07 06/22/18 08:07 06/22/18 08:07 06/22/18 08:07 06/22/18 08:07 Intake and Output: 06/22/18 06/22/18 06:59 18:59 Intake Total 390 400 Output Total 1 Balance 390 399 - Medications Medications: Current Medications Acetaminophen (Tylenol 650 Mg Supp) 650 mg [place] Q6 PRN PRN Reason: Fever >100.4 F Albuterol/Ipratropium (Duoneb 3 Mg/0.5 Mg (3 Ml) Ud) 3 ml INH RQ6 [facility] Last Admin: 06/22/18 07:30 Dose: 3 ml Diltiazem HCl (Cardizem) 30 mg GT QID [facility] Last Admin: 06/21/18 21:28 Dose: 30 mg Insulin Glargine (Lantus) 25 unit SC HS [facility] Last Admin: 06/21/18 21:28 Dose: 25 units Insulin Human Regular (Novolin R) 0 unit SC ACHS [facility]; Protocol Last Admin: 06/22/18 08:00 Dose: 2 units Meclizine HCl (Antivert) 12.5 mg PO Q12 PRN PRN Reason: vertigo Metoprolol Tartrate (Lopressor) 50 mg GT BID [facility] Last Admin: 06/21/18 18:02 Dose: 50 mg Neomycin/Polymyxin/Bacitracin (Neosporin Triple Antibiotic Oint) 0 gm TOP DAILY [facility] Last Admin: 06/21/18 09:17 Dose: 1 applic Nystatin (Nystop Topical Powder) 0 applic TOP BID [facility] Last Admin: 06/21/18 18:12 Dose: 1 applic Pantoprazole Sodium (Protonix Susp) 40 mg GT 0600 [facility] Last Admin: 06/22/18 05:56 Dose: 40 mg Rosuvastatin Calcium (Crestor) 10 mg GT HS [facility] Last Admin: 06/21/18 21:27 Dose: 10 mg - Labs Labs: 06/21/18 07:15 06/21/18 07:15 PT 11.4 SECONDS (9.7-12.2) 06/17/18 02:51 INR 1.0 06/17/18 02:51 APTT 25 SECONDS (21-34) 06/17/18 02:51
[2018-06-22] MEDS: Bacitracin/Neomycin/Polymyxin Oint(30GM) TOP SCH (11:00)
[2018-06-22] MEDS: (Lantus) Insulin Glargine, Recombinant SC SCH (21:23)
[2018-06-23] MEDS: Albuterol-Ipratrop 3 mg / 0.5 (3 ml) UD INH SCH ×4 (01:20→20:17)
[2018-06-23] MEDS: Pantoprazole 40 mg Susp UD GT SCH (06:00)
[2018-06-23] MEDS: (Novolin R) Insulin Human Regular 100 units/ml vial SC SCH ×4 (08:05→22:21)
[2018-06-23] MEDS: Bacitracin/Neomycin/Polymyxin Oint(30GM) TOP SCH (10:56)
--- NOTE | 2018-06-23 14:16 | CP.PCM.PN ---
Subjective - Date & Time of Evaluation Date of Evaluation: 06/23/18 Time of Evaluation: 14:15 - Subjective Subjective: Patient is awake today. Less comfortable. Sleepiness noted. No tachycardia Blood pressure is 112/70 saturation 93% Chest good air entry Abdomen soft nontender Assessment: Patient is a 87-year-old female admitted with multiple medical problems with acute bronchitis. Acute urinary tract infection. Currently resolving. Out of bed to chair. Possible discharge plan Objective - Vital Signs/Intake and Output Vital Signs (last 24 hours): Temp Pulse Resp BP Pulse Ox 98.1 F 107 H 20 112/70 95 06/23/18 08:35 06/23/18 08:35 06/23/18 08:35 06/23/18 08:35 06/23/18 08:35 Intake and Output: 06/23/18 06/23/18 06:59 18:59 Intake Total 360 400 Balance 360 400 - Medications Medications: Current Medications Acetaminophen (Tylenol 650 Mg Supp) 650 mg [place] Q6 PRN PRN Reason: Fever >100.4 F Albuterol/Ipratropium (Duoneb 3 Mg/0.5 Mg (3 Ml) Ud) 3 ml INH RQ6 [facility] Last Admin: 06/23/18 09:46 Dose: 3 ml Diltiazem HCl (Cardizem) 30 mg GT QID [facility] Last Admin: 06/23/18 13:57 Dose: 30 mg Insulin Glargine (Lantus) 25 unit SC HS [facility] Last Admin: 06/22/18 21:23 Dose: 25 units Insulin Human Regular (Novolin R) 0 unit SC ACHS [facility]; Protocol Last Admin: 06/23/18 11:55 Dose: 2 units Meclizine HCl (Antivert) 12.5 mg PO Q12 PRN PRN Reason: vertigo Metoprolol Tartrate (Lopressor) 50 mg GT BID [facility] Last Admin: 06/23/18 10:55 Dose: 50 mg Neomycin/Polymyxin/Bacitracin (Neosporin Triple Antibiotic Oint) 0 gm TOP DAILY [facility] Last Admin: 06/23/18 10:56 Dose: 1 applic Nystatin (Nystop Topical Powder) 0 applic TOP BID [facility] Last Admin: 06/23/18 10:56 Dose: 1 applic Pantoprazole Sodium (Protonix Susp) 40 mg GT 0600 [facility] Last Admin: 06/22/18 05:56 Dose: 40 mg Rosuvastatin Calcium (Crestor) 10 mg GT HS [facility] Last Admin: 06/22/18 21:22 Dose: 10 mg - Labs Labs: 06/21/18 07:15 06/21/18 07:15 PT 11.4 SECONDS (9.7-12.2) 06/17/18 02:51 INR 1.0 06/17/18 02:51 APTT 25 SECONDS (21-34) 06/17/18 02:51
[2018-06-23] MEDS: (Lantus) Insulin Glargine, Recombinant SC SCH (22:09)
[2018-06-24] MEDS: Albuterol-Ipratrop 3 mg / 0.5 (3 ml) UD INH SCH ×4 (01:30→19:30)
[2018-06-24] MEDS: Pantoprazole 40 mg Susp UD GT SCH (06:06)
[2018-06-24] MEDS: (Novolin R) Insulin Human Regular 100 units/ml vial SC SCH ×4 (09:06→21:56)
[2018-06-24] MEDS: Bacitracin/Neomycin/Polymyxin Oint(30GM) TOP SCH (16:09)
[2018-06-24 16:32] VITALS: O2SAT 98
--- NOTE | 2018-06-24 17:50 | CARD ---
APPROVED REPORT Date of service: 06/17/2018 EKG Measurement Heart [id number] <Conclusion> Normal sinus rhythm Right bundle branch block Left ventricular hypertrophy with repolarization abnormality Inferior infarct, age undetermined Abnormal ECG
[2018-06-24] MEDS: (Lantus) Insulin Glargine, Recombinant SC SCH (21:57)
[2018-06-25] MEDS: Albuterol-Ipratrop 3 mg / 0.5 (3 ml) UD INH SCH ×4 (02:00→20:58)
[2018-06-25] MEDS: Pantoprazole 40 mg Susp UD GT SCH (05:44)
[2018-06-25] MEDS: (Novolin R) Insulin Human Regular 100 units/ml vial SC SCH ×4 (08:10→21:54)
[2018-06-25] MEDS: Bacitracin/Neomycin/Polymyxin Oint(30GM) TOP SCH (09:54)
--- NOTE | 2018-06-25 15:12 | CP.PCM.PN ---
Subjective - Date & Time of Evaluation Date of Evaluation: 06/25/18 Time of Evaluation: 15:12 Objective - Vital Signs/Intake and Output Vital Signs (last 24 hours): Temp Pulse Resp BP Pulse Ox 98.2 F 90 20 126/78 98 06/25/18 07:00 06/25/18 07:00 06/25/18 07:00 06/25/18 07:00 06/25/18 07:00 Intake and Output: 06/25/18 06/25/18 06:59 18:59 Intake Total 800 Output Total 1 Balance 799 - Medications Medications: Current Medications Acetaminophen (Tylenol 650 Mg Supp) 650 mg [place] Q6 PRN PRN Reason: Fever >100.4 F Albuterol/Ipratropium (Duoneb 3 Mg/0.5 Mg (3 Ml) Ud) 3 ml INH RQ6 [facility] Last Admin: 06/25/18 13:46 Dose: 3 ml Diltiazem HCl (Cardizem) 30 mg GT QID [facility] Last Admin: 06/25/18 13:31 Dose: 30 mg Insulin Glargine (Lantus) 25 unit SC [facility] Last Admin: 06/24/18 21:57 Dose: 25 units Insulin Human Regular (Novolin R) 0 unit SC [facility]; Protocol Last Admin: 06/25/18 11:43 Dose: 3 units Meclizine HCl (Antivert) 12.5 mg PO Q12 PRN PRN Reason: vertigo Metoprolol Tartrate (Lopressor) 50 mg GT BID [facility] Last Admin: 06/25/18 09:53 Dose: 50 mg Neomycin/Polymyxin/Bacitracin (Neosporin Triple Antibiotic Oint) 0 gm TOP DAILY [facility] Last Admin: 06/25/18 09:54 Dose: 1 applic Nystatin (Nystop Topical Powder) 0 applic TOP BID [facility] Last Admin: 06/25/18 09:53 Dose: 1 applic Pantoprazole Sodium (Protonix Susp) 40 mg GT 0600 [facility] Last Admin: 06/25/18 05:44 Dose: 40 mg Rosuvastatin Calcium (Crestor) 10 mg GT HS [facility] Last Admin: 06/24/18 21:57 Dose: 10 mg - Labs Labs: 06/21/18 07:15 06/21/18 07:15 PT 11.4 SECONDS (9.7-12.2) 06/17/18 02:51 INR 1.0 06/17/18 02:51 APTT 25 SECONDS (21-34) 06/17/18 02:51 Assessment and Plan - Assessment and Plan (Free Text) Assessment: FOLLOW UP WITH DR PORRAS IN 1-2 WEEK AT HIS OFFICE ---CALL FOR APPOINTMENT CONTINUE HOME MEDICATION ORDER NEW PRESCRIPTION GIVEN NEB [place] Q6H PRN PER DR PORRAS ACTIVITY TOLERATED CALL DR PORRAS OR GO TO THE EMERGENCY ROOM IF SYMPTOM RETURN OR WORSENING
[2018-06-25 16:50] VITALS: TEMP 99.2
[2018-06-25 17:40] VITALS: BP 142/79; PULSE 102
--- NOTE | 2018-06-25 17:58 | CP.PCM.PN ---
Subjective - Date & Time of Evaluation Date of Evaluation: 06/24/18 Time of Evaluation: 17:56 - Subjective Subjective: Spoke to the patient's daughter in detail. Patient is comfortable. No fever noted. Minimal cough noted. Vital signs stable Labs reviewed nonspecific Assessment: 87-year-old female with a history of COPD hypertension CAD coronary artery bypass grafting. Achalasia cardia status post a PEG the Admitted with urinary tract infection status post antibiotic. Patient is clinical stable at this time. Possible discharge plan Objective - Vital Signs/Intake and Output Vital Signs (last 24 hours): Temp Pulse Resp BP Pulse Ox 99.2 F 102 H 20 142/79 98 06/25/18 16:00 06/25/18 17:40 06/25/18 16:00 06/25/18 17:40 06/25/18 16:00 Intake and Output: 06/25/18 06/25/18 06:59 18:59 Intake Total 800 Output Total 1 Balance 799 - Medications Medications: Current Medications Acetaminophen (Tylenol 650 Mg Supp) 650 mg DE Q6 PRN PRN Reason: Fever >100.4 F Albuterol/Ipratropium (Duoneb 3 Mg/0.5 Mg (3 Ml) Ud) 3 ml INH RQ6 [facility] Last Admin: 06/25/18 13:46 Dose: 3 ml Diltiazem HCl (Cardizem) 30 mg GT QID [facility] Last Admin: 06/25/18 17:39 Dose: 30 mg Insulin Glargine (Lantus) 25 unit SC HS [facility] Last Admin: 06/24/18 21:57 Dose: 25 units Insulin Human Regular (Novolin R) 0 unit SC ACHS [facility]; Protocol Last Admin: 06/25/18 16:45 Dose: 3 units Meclizine HCl (Antivert) 12.5 mg PO Q12 PRN PRN Reason: vertigo Metoprolol Tartrate (Lopressor) 50 mg GT BID [facility] Last Admin: 06/25/18 17:39 Dose: 50 mg Neomycin/Polymyxin/Bacitracin (Neosporin Triple Antibiotic Oint) 0 gm TOP DAILY [facility] Last Admin: 06/25/18 09:54 Dose: 1 applic Nystatin (Nystop Topical Powder) 0 applic TOP BID [facility] Last Admin: 06/25/18 17:50 Dose: 1 applic Pantoprazole Sodium (Protonix Susp) 40 mg GT 0600 [facility] Last Admin: 06/25/18 05:44 Dose: 40 mg Rosuvastatin Calcium (Crestor) 10 mg GT HS [facility] Last Admin: 06/24/18 21:57 Dose: 10 mg - Labs Labs: 06/21/18 07:15 06/21/18 07:15 PT 11.4 SECONDS (9.7-12.2) 06/17/18 02:51 INR 1.0 06/17/18 02:51 APTT 25 SECONDS (21-34) 06/17/18 02:51
== END 2018-06-25 22:12 | disposition home or self-care (01) | DRG 690 ==
LOC: C.ER 01:59 → C.9E 06:06 → C.3T 09:10
PROVIDERS: ADMIT Internal Medicine; ATTEND Internal Medicine
PROC: 3E0G76Z Introduction of Nutritional Substance into Upper GI, Via Natural or Artificial Opening (ICD-10-PCS; principal; 2018-06-17)
DX: N39.0 Urinary tract infection, site not specified (principal); J44.0 Chronic obstructive pulmonary disease with (acute) lower respiratory infection; J20.9 Acute bronchitis, unspecified; E11.9 Type 2 diabetes mellitus without complications; I11.0 Hypertensive heart disease with heart failure; I50.9 Heart failure, unspecified; I25.10 Atherosclerotic heart disease of native coronary artery without angina pectoris; K21.9 Gastro-esophageal reflux disease without esophagitis; K22.0 Achalasia of cardia; R41.82 Altered mental status, unspecified; M06.9 Rheumatoid arthritis, unspecified; F41.9 Anxiety disorder, unspecified; K22.2 Esophageal obstruction; M19.90 Unspecified osteoarthritis, unspecified site; E78.00 Pure hypercholesterolemia, unspecified; M81.0 Age-related osteoporosis without current pathological fracture; Z87.01 Personal history of pneumonia (recurrent); Z87.11 Personal history of peptic ulcer disease; Z87.891 Personal history of nicotine dependence; Z95.0 Presence of cardiac pacemaker; Z95.1 Presence of aortocoronary bypass graft; Z95.5 Presence of coronary angioplasty implant and graft

== ENCOUNTER 2018-06-29 10:21 | Inpatient (IN) | payer MEDICARE ==
[2018-06-29 10:26] VITALS: BMI 27.3
--- NOTE | 2018-06-29 11:50 | C.PDOC ---
History Of Present Illness Patient is an 87 year old nonverbal female with a PMHx of COPD, HTN, CAD, s/p CABG, osteoporosis, and prior tracheostomy, presenting today for evaluation of PEG tube leakage. As per EMS, patient was brought from home for PEG tube dys fuction. No family here at present time. Unable to obtain any further history from patient. Records reviewed, patient was recently admitted on 06/17 and discharged home 06/25. PMD- Dr. Patel Time Seen by Provider: 06/29/18 10:52 Chief Complaint (Nursing): GI Problem History Per: Patient History/Exam Limitations: other (NON VERBAL) Reports Recently: Hospitalized Additional History Per: EMS, Prior Records Past Medical History Reviewed: Historical Data, Nursing Documentation, Vital Signs Vital Signs: Last Vital Signs Temp 98.3 F 06/29/18 10:28 Pulse 80 06/29/18 10:28 Resp 20 06/29/18 10:28 BP 163/81 H 06/29/18 10:28 Pulse Ox 98 06/29/18 10:28 - Medical History PMH: Anxiety, Arthritis, Bronchitis, CAD, Cardia Arrhythmia, CHF, COPD, Diabetes, GERD (esophageal stricture), HTN, Hypercholesterolemia, Osteoporosis, Pneumonia, Rheumatoid Arthritis Denies: HIV, Chronic Kidney Disease, Seizures, Sexually Transmitted Disease Surgical History: CABG (12/16/1991), Carotid Endarterectomy (06/13/05), Coronary Stent, Pacemaker - [facility] Procedures ASSISTANCE WITH RESPIRATORY VENTILATION, >96 HRS, CPAP (05/07/18) BYPASS TRACHEA TO CUTANEOUS WITH TRACH DEV, PERC APPROACH (11/09/17) CHANGE OTHER DEVICE IN ABDOMINAL WALL, EXTERNAL APPROACH (08/03/15) CONTR CEREBR ARTERIOGRAM (06/13/05) CONTRAST AORTOGRAM (06/13/05) CONTRAST ARTERIOGRAM NEC (05/23/12) CONTROL BLEEDING IN GASTROINTESTINAL TRACT, ENDO (05/07/18) CORONAR ARTERIOGR-2 CATH (05/23/12) ENDOSC POLYPECTOMY OF LG INTEST (06/28/14) ENTERAL INFUSION OF CONCENTRATED NUT. SUBSTANCES (10/01/14) HEAD & NECK ENDARTER NEC (06/13/05) INJECT ANTICOAGULANT (06/13/05) INSERT PACE, SINGL HAYLEY IN CHEST SUBCU/FASCIA, OPEN (03/05/16) INSERTION OF ENDOTRACHEAL AIRWAY INTO TRACHEA, VIA OPENING (05/07/18) INSERTION OF INFUSION DEV INTO R BRACH VEIN, PERC APPROACH (05/07/18) INSERTION OF INFUSION DEV INTO SUP VENA CAVA, PERC APPROACH (11/09/17) INSERTION OF ONE VASCULAR STENT (05/23/12) INSERTION OF PACEMAKER LEAD INTO R VENTRICLE, PERC APPROACH (03/05/16) INSPECTION OF TRACHEOBRONCHIAL TREE, ENDO (11/09/17) INSRT OF DRUG-ELUTING CORON ARTERY STENTS(S) (05/23/12) INTRODUCTION OF NUTRITIONAL INTO UP GI, VIA OPENING (06/17/18) INTRODUCTION OF VASOPRESSOR INTO CENTRAL VEIN, PERC APPROACH (03/05/16) LEFT HEART CARDIAC CATH (05/23/12) LT HEART ANGIOCARDIOGRAM (05/23/12) MEASUREMENT OF CARDIAC PACEMAKER, EXTERNAL APPROACH (01/27/17) PACKED CELL TRANSFUSION (06/28/14) PERCUTANEOUS TRANSLUMINAL CORONARY ANGIOPLASTY [PTCA] (05/23/12) PERCUTANEOUS [ENDOSCOPIC] GASTROSTOMY [PEG] (10/01/14) PERFORMANCE OF CARDIAC PACING, CONTINUOUS (03/05/16) PROCEDURE ON SINGLE VESSEL (05/23/12) REPLACE GASTROSTOMY TUBE (02/09/15) RESPIRATORY VENTILATION, 24-96 CONSECUTIVE HOURS (05/07/18) RESPIRATORY VENTILATION, GREATER THAN 96 CONSECUTIVE HOURS (05/07/18) TRANSFUSE NONAUT FROZEN PLASMA IN PERIPH VEIN, PERC (05/07/18) TRANSFUSE NONAUT RED BLOOD CELLS IN PERIPH VEIN, PERC (05/07/18) Family History: States: Unknown Family Hx - Social History Hx Tobacco Use: No Hx Alcohol Use: No Hx Substance Use: No - Immunization History Hx Tetanus Toxoid Vaccination: No Hx Influenza Vaccination: No Hx Pneumococcal Vaccination: No Review Of Systems Review Of Systems: ROS cannot be obtained secondary to pt's inabilty to answer questions. Physical Exam - Physical Exam Appears: Non-toxic, Other (Elderly, non-verbal, bedbound female, smiling. ) Skin: Pale, Other (Cool) Head: Atraumatic, Normacephalic Eye(s): bilateral: PERRL, EOMI Neck: Supple Chest: Other (Vertical scar noted from prior CABG, + Pacemaker/defibrillator? in place) Cardiovascular: Rhythm Regular Respiratory: Normal Breath Sounds, No Rales, No Rhonchi, No Wheezing Gastrointestinal/Abdominal: Soft, Other (Abdomen feels full, + PEG tube in place, with brown vs bloody discharge surrounding) Extremity: Other (+ significant fungal infection to bilateral nails) Extremity: Bilateral: Atraumatic, Other (Bilateral lower extremities in circulation booties) Pulses: Left Radial: Normal, Right Radial: Normal Neurological/Psych: Other (Awake, smiling) ED Course And Treatment - Laboratory Results Result Diagrams: 06/29/18 12:29 06/29/18 12:29 ECG: Interpreted By Me, Viewed By Me Interpretation Of ECG: R BBB, ST depressions in leads 1 and aVL, ? ST elevation in leads 2 and aVR. All consistent with prior EKGs Rate From EC (bpm) O2 Sat by Pulse Oximetry: 98 (NC) Pulse Ox Interpretation: Normal - Other Rad CXR X-Ray: Read By Radiologist Interpretation: Accession No. : [id number]. Patient Name / ID : BETSY DE LEON / [id number]. Exam Date : 06/29/2018 11:30:53 ( Approved ). Study Comment : Sex / Age : F / [id number]. Creator : Anand Jarvis MD. Dictator : Anand Jarvis MD. Wardrobe Coordinator : Configuration Release Manager : Anand Jarvis MD. Ap prover2 : Report Date : 06/29/2018 12:52:03. My Comment : . Chest x-ray single frontal view. HISTORY: Sepsis. Comparison: 06/17/2018. Findings: Biapical pleural thickening with upper lobe granulomatous changes. Moderate venous congestion. Diffuse increased interstitial lung markings. Patchy increased markings in the right hilar region and left lung base. Status post median sternotomy CABG. Coronary stent in place. Atherosclerotic calcification at the aortic knob. Cardiomegaly. Surgical clips in the upper abdomen. Left-sided pacemaker. Degenerative changes in the spine and shoulders. Impression: Biapical pleural thickening with upper lobe granulomatous changes. Moderate venous congestion. Diffuse increased interstitial lung markings. Patchy increased markings in the right hilar region and left lung base. Status post median sternotomy CABG. Coronary stent in place. Atherosclerotic calcification at the aortic knob. Cardiomegaly. Surgical clips in the upper abdomen. Left-sided pacemaker. Medical Decision Making Medical Decision Making: Initial Plan: --VBG --EKG --CMP --Troponin I --Pro-BNP --CBC --Blood culture --Urine culture --UA --Chest x-ray Patient with slight leukocytisis and slightly elevated lactate. No fever, rectal wnl. No tachycardia. No indication of infection. No pneumonia. Pending UA. Will start antibiotics prophylactically, 3:[address] Patel, patient with UTI, started Rocephin, will admit/obs Disposition Discussed With Dr.: Luis Manuel Patel Doctor Will See Patient In The: Hospital Counseled Patient/Family Regarding: Studies Performed, Diagnosis - Disposition Disposition: HOSPITALIZED Disposition Time: 15:43 Condition: STABLE - Clinical Impression Clinical Impression: UTI (urinary tract infection) - Scribe Statement The provider has reviewed the documentation as recorded by the Erin Hand Provider Attestation: All medical record entries made by the Erin were at my direction and personally dictated by me. I have reviewed the chart and agree that the record accurately reflects my personal performance of the history, physical exam, medical decision making, and the department course for this patient. I have also personally directed, reviewed, and agree with the discharge instructions and disposition. Decision To Admit - Pt Status Changed To: Hospital Disposition Of: Observation - . Bed Request Type: Regular Admitting Physician: Luis Manuel Patel Patient Diagnosis: UTI (urinary tract infection)
[2018-06-29 12:35] LABS: BASO # 0.2 K/uL (0.0-0.2); BASO % 1.1 % (0.0-2.0); EOS # 0.5 K/uL (0.0-0.7); EOS % 3.4 % (0.0-4.0); HEMOGLOBIN 12.3 g/dL (11.0-16.0); LYMPH # 1.8 K/uL (1.0-4.3); LYMPH % 12.2 % (20.0-40.0); MEAN CELL VOLUME 91.9 fL (81.0-99.0); MEAN CORPUSCULAR HEMOGLOBIN 31.1 pg (27.0-31.0); MEAN CORPUSCULAR HGB CONC 33.9 g/dL (33.0-37.0); MEAN PLATELET VOLUME 7.6 fL (7.2-11.7); NEUT # 11.4 K/uL (1.8-7.0); NEUT % 76.3 % (50.0-75.0); NRBC % 0.1 % (0.0-2.0); RBC 3.94 Mil/uL (3.80-5.20); RED CELL DISTRIBUTION WIDTH 16.2 % (11.5-14.5); WHITE BLOOD COUNT 14.9 K/uL (4.8-10.8)
[2018-06-29 12:44] LABS: VENOUS BLOOD GAS BASE EXCESS 2.8 mmol/L (0.0-2.0); VENOUS BLOOD GAS PCO2 57 mmHg (40-60); VENOUS BLOOD GAS PO2 22 mm/Hg (30-55); VENOUS BLOOD PH 7.33 (7.32-7.43)
[2018-06-29 12:48] LABS: ALB/GLOB RATIO 1.2 (1.0-2.1); ALBUMIN 4.9 g/dL (3.5-5.0); ALT/SGPT 19 U/L (9-52); AST/SGOT 28 U/L (14-36); BLOOD UREA NITROGEN 31 mg/dL (7-17); CALCIUM 10.7 mg/dl (8.6-10.4); GFR NON-AFRICAN AMERICAN > 60
--- NOTE | 2018-06-29 12:55 | RAD ---
Chest x-ray single frontal view HISTORY: Sepsis. Comparison: 06/17/2018 Findings: Biapical pleural thickening with upper lobe granulomatous changes. Moderate venous congestion. Diffuse increased interstitial lung markings. Patchy increased markings in the right hilar region and left lung base. Status post median sternotomy CABG. Coronary stent in place. Atherosclerotic calcification at the aortic knob. Cardiomegaly. Surgical clips in the upper abdomen Left-sided pacemaker. Degenerative changes in the spine and shoulders. Impression: Biapical pleural thickening with upper lobe granulomatous changes. Moderate venous congestion. Diffuse increased interstitial lung markings. Patchy increased markings in the right hilar region and left lung base. Status post median sternotomy CABG. Coronary stent in place. Atherosclerotic calcification at the aortic knob. Cardiomegaly. Surgical clips in the upper abdomen Left-sided pacemaker.
[2018-06-29 12:58] LABS: B-TYPE NATRIURETIC PEPTIDE 82.8 pg/mL (0-900)
[2018-06-29] MEDS ORDERED: Aztreonam 2 GM in Sodium Chloride 0.9% 100 ML IVPB STA (13:11)
[2018-06-29 13:45] LABS: VENOUS BLOOD GAS PCO2 57 mmHg (40-60); VENOUS BLOOD GAS PO2 15 mm/Hg (30-55); VENOUS BLOOD PH 7.37 (7.32-7.43)
[2018-06-29 15:15] LABS: SQUAMOUS EPITHIAL < 1 /hpf (0-5); URINE AMORPHOUS SEDIMENT RARE /ul (<OCC); URINE BACTERIA MANY (<OCC); URINE BILIRUBIN NEGATIVE (NEGATIVE); URINE BLOOD 1+ (NEGATIVE); URINE CLARITY Hazy (Clear); URINE COLOR Yellow (YELLOW); URINE GLUCOSE (UA) NORMAL (Normal); URINE LEUKOCYTE ESTERASE 3+ Leu/uL (Negative); URINE PROTEIN NEGATIVE (NEGATIVE); URINE UROBILINOGEN NORMAL mg/dL (0.2-1.0); WBC CLUMPS FEW /hpf
[2018-06-29] MEDS: Aztreonam 1 GM in Sodium Chloride 0.9% 100 ML IVPB SCH (17:18)
[2018-06-29] MEDS: Albuterol-Ipratrop 3 mg / 0.5 (3 ml) UD INH SCH (22:13)
[2018-06-30] MEDS: Aztreonam 1 GM in Sodium Chloride 0.9% 100 ML IVPB SCH ×3 (00:15→17:14)
[2018-06-30] MEDS: Albuterol-Ipratrop 3 mg / 0.5 (3 ml) UD INH SCH ×4 (01:42→21:10)
[2018-06-30] MEDS: Pantoprazole 40 mg Susp UD PO SCH (05:22)
[2018-06-30] MEDS: Bacitracin/Neomycin/Polymyxin Oint(30GM) TOP SCH (10:01)
[2018-06-30] MEDS: (Lantus) Insulin Glargine, Recombinant SC SCH (10:03)
--- NOTE | 2018-06-30 13:01 | CP.PCM.HP ---
History of Present Illness - History of Present Illness History of Present Illness: dictated Present on Admission - Present on Admission Any Indicators Present on Admission: No History of DVT/PE: No History of Uncontrolled Diabetes: No Urinary Catheter: No Decubitus Ulcer Present: No Past Patient History - Infectious Disease Hx of Infectious Diseases: None - Past Medical History & Family History Past Medical History?: Yes - Past Social History Smoking Status: Former Smoker - CARDIAC Hx Cardia Arrhythmia: Yes Hx Congestive Heart Failure: Yes Hx Hypercholesterolemia: Yes Hx Hypertension: Yes Hx Pacemaker: Yes - PULMONARY Hx Bronchitis: Yes Hx Chronic Obstructive Pulmonary Disease (COPD): Yes Hx Pneumonia: Yes - NEUROLOGICAL Hx Seizures: No - HEENT Hx HEENT Problems: Yes Hx Cataracts: Yes (2000 Rt.Eye,2009Le Eye) - RENAL Hx Chronic Kidney Disease: No - ENDOCRINE/METABOLIC Hx Endocrine Disorders: Yes Hx Diabetes Mellitus Type 2: Yes - HEMATOLOGICAL/ONCOLOGICAL Hx Human Immunodeficiency Virus (HIV): No - INTEGUMENTARY Hx Dermatological Problems: No - MUSCULOSKELETAL/RHEUMATOLOGICAL Hx Arthritis: Yes Hx Osteoporosis: Yes Hx Rheumatoid Arthritis: Yes - GASTROINTESTINAL Hx Gastrointestinal Disorders: Yes Hx Colitis: Yes Hx Gastroesophageal Reflux: Yes HX Swallowing Problems: Yes (Achalasia. See HPI) Other/Comment: peg tube - GENITOURINARY/GYNECOLOGICAL Hx Sexually Transmitted Disorders: No - PSYCHIATRIC Hx Anxiety: Yes Hx Substance Use: No - SURGICAL HISTORY Hx Carotid Endarterectomy: Yes (06/13/05) Hx Coronary Artery Bypass Graft: Yes (12/16/1991) Hx Coronary Stent: Yes - ANESTHESIA Hx Anesthesia: Yes Hx Anesthesia Reactions: No Hx Malignant Hyperthermia: No Meds Allergies/Adverse Reactions: Allergies Allergy/AdvReac Type Severity Reaction Status Date / Time iodine Allergy REDNESS Verified 06/29/18 10:25 Penicillins Allergy ANGIOEDEMA Verified 06/29/18 10:25 clopidogrel [From Plavix] AdvReac HEADACHE Verified 06/29/18 10:25 losartan [From Cozaar] AdvReac DIZZINESS Verified 06/29/18 10:25 nitroglycerin AdvReac DIZZINESS Verified 06/29/18 10:25 Results - Vital Signs Recent Vital Signs: Last Vital Signs Temp 98.1 F 06/30/18 07:00 Pulse 89 06/30/18 07:00 Resp 20 06/30/18 07:00 BP 130/76 06/30/18 10:03 Pulse Ox 100 06/30/18 08:00 - Labs Result Diagrams: 06/29/18 12:29 06/29/18 12:29 Labs: Laboratory Results - last 24 hr 06/29/18 06/29/18 06/30/18 13:35 14:27 02:33 pO2 15 L VBG pH 7.37 VBG pCO2 57 VBG HCO3 27.5 VBG Total CO2 34.7 H VBG O2 Sat (Calc) 21.8 L VBG Base Excess 6.0 H VBG Potassium 4.3 Sodium 138.0 Chloride 101.0 Glucose 178 H Lactate 1.7 POC Glucose (mg/dL) 136 H Venous Blood Potassium 4.3 Urine Color Yellow Urine Clarity Hazy Urine pH 5.0 Ur Specific [place] 1.011 Urine Protein Negative Urine Glucose (UA) Normal Urine Ketones Negative Urine Blood 1+ H Urine Nitrate Negative Urine Bilirubin Negative Urine Urobilinogen Normal Ur Leukocyte Esterase 3+ H Urine WBC (Auto) 23 H Urine RBC (Auto) 2 Urine WBC Clumps (Auto) Few H Ur Squamous Epith Cells < 1 Amorphous Sediment Rare H Urine Bacteria Many H 06/30/18 06/30/18 07:16 11:04 pO2 VBG pH VBG pCO2 VBG HCO3 VBG Total CO2 VBG O2 Sat (Calc) VBG Base Excess VBG Potassium Sodium Chloride Glucose Lactate POC Glucose (mg/dL) 156 H 160 H Venous Blood Potassium Urine Color Urine Clarity Urine pH Ur Specific [place] Urine Protein Urine Glucose (UA) Urine Ketones Urine Blood Urine Nitrate Urine Bilirubin Urine Urobilinogen Ur Leukocyte Esterase Urine WBC (Auto) Urine RBC (Auto) Urine WBC Clumps (Auto) Ur Squamous Epith Cells Amorphous Sediment Urine Bacteria
[2018-06-30] MEDS: (Novolin R) Insulin Human Regular 100 units/ml vial SC SCH (17:19)
[2018-07-01] MEDS: (Novolin R) Insulin Human Regular 100 units/ml vial SC SCH ×4 (00:20→17:58)
--- NOTE | 2018-07-01 00:26 | HP ---
CHIEF COMPLAINT: Bleeding around the PEG site. HISTORY OF PRESENT ILLNESS: This is an 87-year-old female with a history of hypertension, COPD, coronary artery disease, coronary artery bypass grafting, hypercholesterolemia, osteoporosis, pneumonia, history of tracheostomy, aspiration pneumonia, GI bleed, recently hospitalized with urinary tract infection, altered mental status. Following that, the patient was sent home after finishing up the antibiotic and was doing well. While she was in the home, the patient's daughter stated that she was having some bleeding around the PEG site tube. The patient had a PEG tube for more than a year now. The patient has a history of achalasia cardia and was not able to eat and also aspiration and the recurrent pneumonia, so it was decided for PEG tube feeding at that time. The patient was doing well, but because of the recurrent bleeding around the PEG site, the patient was sent to the emergency room via the ambulance by the patient's daughter. In the emergency room, the patient was evaluated and noted to have subsiding bleeding, but foul-smelling discharge around the PEG tube noted. Also, there was suspected urinary tract infection. PAST MEDICAL HISTORY: Hypertension, hyperlipidemia, CAD, COPD, osteoporosis, osteoarthritis, recurrent pneumonia, GI bleed, and duodenal ulcer. PAST SURGICAL HISTORY: Coronary artery bypass grafting, tracheostomy in the past which was reversed, PEG tube feeding, multiple esophageal dilatations in the past. ALLERGIES: MULTIPLE ALLERGIES NOTED, NONSPECIFIC. SOCIAL HISTORY: The patient is an ex-smoker. Denies any alcohol. REVIEW OF SYSTEMS: The patient is alert and awake, but nonverbal, but sometimes she is able to speak, able to move all 4 extremities, able to sit up. No chest pain. Coughing noted. Abdominal distention minimally noted. Excoriation around the PEG tube noted. Leg swelling negative. PHYSICAL EXAMINATION: VITAL SIGNS: Temperature is 98.1, pulse 80, blood pressure 132/77, respirations 20, and saturation 99% on 2 liters of nasal cannula. CHEST: Good air entry bilaterally. HEART: Regular heart sounds. ABDOMEN: Nontender abdomen. PEG tube site is clean. There is no evidence of any bleeding noted. Abdomen is soft. EXTREMITIES: No pedal edema. CENTRA NERVOUS SYSTEM: Alert and awake, but nonverbal. LABORATORY DATA: Reviewed. BUN 31, creatinine 0.7, calcium 10.7, elevated glucose level noted. CBC: WBC 14.9 with a platelet count of 394. No lactate evidence noted. Chest x-ray, haziness noted in lungs. Urinalysis showing wbc 23, LE 3+. So, the patient was admitted to the hospital with a suspected urinary tract infection. ASSESSMENT AND PLAN: An 87-year-old female with multiple medical history now admitted with a possible urinary tract infection and urosepsis with elevated leukocytosis. The patient also had an evidence of gastrointestinal bleeding. Given the history of gastrointestinal bleed with actually blood transfusion, it was decided to observe the patient in the hospital for further bleeding, gastrointestinal evaluation if needed, deep vein thrombosis and gastrointestinal prophylaxis, urinary tract infection being treated with aztreonam now. We are waiting for the culture. Continue the feeding, glucose monitoring, physical therapy and we will follow up with the patient. Luis Manuel Patel MD
[2018-07-01] MEDS: Albuterol-Ipratrop 3 mg / 0.5 (3 ml) UD INH SCH ×4 (01:22→19:16)
[2018-07-01] MEDS: Aztreonam 1 GM in Sodium Chloride 0.9% 100 ML IVPB SCH ×3 (01:46→17:36)
[2018-07-01] MEDS: Pantoprazole 40 mg Susp UD PO SCH (05:49)
[2018-07-01] MEDS: (Lantus) Insulin Glargine, Recombinant SC SCH (09:21)
[2018-07-01] MEDS: Bacitracin/Neomycin/Polymyxin Oint(30GM) TOP SCH (11:00)
--- NOTE | 2018-07-01 23:01 | CP.PCM.CON ---
History of Present Illness - History of Present Illness History of Present Illness: HPI: 87-year-old female with past medical history off HTN, COPD, CAD, CABG, hypercholesterolemia, osteoporosis, pneumonia, history off tracheostomy, GI bleed recently hospitalized with urinary tract infection and altered mental status. Patient was recently discharged home on 06/25/18 after finishing her antibiotics and was doing well. Patient now comes in today for evaluation of PEG tube leakage. Also daughter noticed bleeding around the PEG site tube. Patient was also noted to have some foul-smelling discharge around the PEG tube. Also suspected urinary tract infection. Patient was therefore advised admission. PATIENT WAS EMPIRICALLY STARTED ON iv AZACTAM 1 G EVERY 8 HOURLY BY PMD FOR POSSIBLE UTI. INFECTIOUS DISEASE CONSULTATION REQUESTED BY pmd WOUND CULTURE CAME BACK POSITIVE FOR GRAM-POSITIVE COCCI. ALSO URINE CULTURE REPORTED GRAM-POSITIVE COCCI. ALLERGY; IODINE, PENICILLIN, CLOPIDOGREL, LOSARTAN, NITROGLYCERIN IN. PMD- Dr. Patel PMH: Anxiety, Arthritis, Bronchitis, CAD, Cardia Arrhythmia, CHF, COPD, Diabetes, GERD (esophageal stricture), HTN, Hypercholesterolemia, Osteoporosis, Pneumonia, Rheumatoid Arthritis Denies: HIV, Chronic Kidney Disease, Seizures, Sexually Transmitted Disease Surgical History: CABG (12/16/1991), Carotid Endarterectomy (06/13/05), Coronary Stent, Pacemaker PEGTUBE FEEDINGS, MULTIPLE ESOPHAGEAL DILATATIONS IN THE PAST. - [facility] Procedures ASSISTANCE WITH RESPIRATORY VENTILATION, >96 HRS, CPAP (05/07/18) BYPASS TRACHEA TO CUTANEOUS WITH TRACH DEV, PERC APPROACH (11/09/17) CHANGE OTHER DEVICE IN ABDOMINAL WALL, EXTERNAL APPROACH (08/03/15) CONTR CEREBR ARTERIOGRAM (06/13/05) CONTRAST AORTOGRAM (06/13/05) CONTRAST ARTERIOGRAM NEC (05/23/12) CONTROL BLEEDING IN GASTROINTESTINAL TRACT, ENDO (05/07/18) CORONAR ARTERIOGR-2 CATH (05/23/12) ENDOSC POLYPECTOMY OF LG INTEST (06/28/14) ENTERAL INFUSION OF CONCENTRATED NUT. SUBSTANCES (10/01/14) HEAD & NECK ENDARTER NEC (06/13/05) INJECT ANTICOAGULANT (06/13/05) INSERT PACE, SINGL HAYLEY IN CHEST SUBCU/FASCIA, OPEN (03/05/16) INSERTION OF ENDOTRACHEAL AIRWAY INTO TRACHEA, VIA OPENING (05/07/18) INSERTION OF INFUSION DEV INTO R BRACH VEIN, PERC APPROACH (05/07/18) INSERTION OF INFUSION DEV INTO SUP VENA CAVA, PERC APPROACH (11/09/17) INSERTION OF ONE VASCULAR STENT (05/23/12) INSERTION OF PACEMAKER LEAD INTO R VENTRICLE, PERC APPROACH (03/05/16) INSPECTION OF TRACHEOBRONCHIAL TREE, ENDO (11/09/17) INSRT OF DRUG-ELUTING CORON ARTERY STENTS(S) (05/23/12) INTRODUCTION OF NUTRITIONAL INTO UP GI, VIA OPENING (06/17/18) INTRODUCTION OF VASOPRESSOR INTO CENTRAL VEIN, PERC APPROACH (03/05/16) LEFT HEART CARDIAC CATH (05/23/12) LT HEART ANGIOCARDIOGRAM (05/23/12) MEASUREMENT OF CARDIAC PACEMAKER, EXTERNAL APPROACH (01/27/17) PACKED CELL TRANSFUSION (06/28/14) PERCUTANEOUS TRANSLUMINAL CORONARY ANGIOPLASTY [PTCA] (05/23/12) PERCUTANEOUS [ENDOSCOPIC] GASTROSTOMY [PEG] (10/01/14) PERFORMANCE OF CARDIAC PACING, CONTINUOUS (03/05/16) PROCEDURE ON SINGLE VESSEL (05/23/12) REPLACE GASTROSTOMY TUBE (02/09/15) RESPIRATORY VENTILATION, 24-96 CONSECUTIVE HOURS (05/07/18) RESPIRATORY VENTILATION, GREATER THAN 96 CONSECUTIVE HOURS (05/07/18) TRANSFUSE NONAUT FROZEN PLASMA IN PERIPH VEIN, PERC (05/07/18) TRANSFUSE NONAUT RED BLOOD CELLS IN PERIPH VEIN, PERC (05/07/18) Family History: States: Unknown Family Hx - Social History Hx Tobacco Use: No Hx Alcohol Use: No Hx Substance Use: No - Immunization History Hx Tetanus Toxoid Vaccination: No Hx Influenza Vaccination: No Hx Pneumococcal Vaccination: No Review of Systems - Review of Systems Systems not reviewed;Unavailable: Other (NONVERBAL.) Past Patient History - Infectious Disease Hx of Infectious Diseases: None - Past Medical History & Family History Past Medical History?: Yes - Past Social History Smoking Status: Unknown If Ever Smoked - CARDIAC Hx Cardia Arrhythmia: Yes Hx Congestive Heart Failure: Yes Hx Hypercholesterolemia: Yes Hx Hypertension: Yes Hx Pacemaker: Yes - PULMONARY Hx Bronchitis: Yes Hx Chronic Obstructive Pulmonary Disease (COPD): Yes Hx Pneumonia: Yes - NEUROLOGICAL Hx Seizures: No - HEENT Hx HEENT Problems: Yes Hx Cataracts: Yes (2000 Rt.Eye,2009Left Eye) - RENAL Hx Chronic Kidney Disease: No - ENDOCRINE/METABOLIC Hx Endocrine Disorders: Yes Hx Diabetes Mellitus Type 2: Yes - HEMATOLOGICAL/ONCOLOGICAL Hx Human Immunodeficiency Virus (HIV): No - INTEGUMENTARY Hx Dermatological Problems: No - MUSCULOSKELETAL/RHEUMATOLOGICAL Hx Arthritis: Yes Hx Osteoporosis: Yes Hx Rheumatoid Arthritis: Yes - GASTROINTESTINAL Hx Gastrointestinal Disorders: Yes Hx Colitis: Yes Hx Gastroesophageal Reflux: Yes HX Swallowing Problems: Yes (Achalasia. See HPI) Other/Comment: peg tube - GENITOURINARY/GYNECOLOGICAL Hx Sexually Transmitted Disorders: No - PSYCHIATRIC Hx Anxiety: Yes Hx Substance Use: No - SURGICAL HISTORY Hx Carotid Endarterectomy: Yes (06/13/05) Hx Coronary Artery Bypass Graft: Yes (12/16/1991) Hx Coronary Stent: Yes - ANESTHESIA Hx Anesthesia: Yes Hx Anesthesia Reactions: No Hx Malignant Hyperthermia: No Meds Allergies/Adverse Reactions: Allergies Allergy/AdvReac Type Severity Reaction Status Date / Time iodine Allergy REDNESS Verified 06/29/18 10:25 Penicillins Allergy ANGIOEDEMA Verified 06/29/18 10:25 clopidogrel [From Plavix] AdvReac HEADACHE Verified 06/29/18 10:25 losartan [From Cozaar] AdvReac DIZZINESS Verified 06/29/18 10:25 nitroglycerin AdvReac DIZZINESS Verified 06/29/18 10:25 - Medications Medications: Current Medications Acetaminophen (Tylenol 650 Mg Supp) 650 mg LA Q6 PRN PRN Reason: Fever >100.4 F Albuterol/Ipratropium (Duoneb 3 Mg/0.5 Mg (3 Ml) Ud) 3 ml INH RQ6 [facility] Last Admin: 07/01/18 19:16 Dose: 3 ml Diltiazem HCl (Cardizem) 30 mg PO QID [facility] Last Admin: 07/01/18 21:11 Dose: 30 mg Heparin Sodium (Porcine) (Heparin) 5,000 units SC Q8 [facility] Last Admin: 07/01/18 21:11 Dose: 5,000 units Aztreonam 1 gm/ Sodium (Chloride) 100 mls @ 200 mls/hr IVPB Q8H [facility]; Protocol Last Admin: 07/01/18 17:36 Dose: 200 mls/hr Fluconazole 100 mg/ (Miscellaneous) 50 mls @ 100 mls/hr IVPB DAILY [facility]; Protocol Insulin Glargine (Lantus) 25 unit SC DAILY [facility] Last Admin: 07/01/18 09:21 Dose: 25 u Insulin Human Regular (Novolin R) 0 unit SC Q6 [facility]; Protocol Last Admin: 07/01/18 17:58 Dose: 2 u Metoprolol Tartrate (Lopressor) 25 mg PO BID [facility] Last Admin: 07/01/18 17:38 Dose: 25 mg Neomycin/Polymyxin/Bacitracin (Neosporin Triple Antibiotic Oint) 1 gm TOP DAILY [facility] Last Admin: 07/01/18 11:00 Dose: 1 applic Nystatin (Nystop Topical Powder) 1 applic TOP BID [facility] Last Admin: 07/01/18 17:40 Dose: 1 applic Pantoprazole Sodium (Protonix Susp) 40 mg PO 0600 [facility] Last Admin: 07/01/18 05:49 Dose: 40 mg Rosuvastatin Calcium (Crestor) 10 mg PO HS [facility] Last Admin: 07/01/18 21:11 Dose: 10 mg Physical Exam - Constitutional Appears: No Acute Distress, Chronically Ill - Head Exam Head Exam: NORMAL INSPECTION - Eye Exam Eye Exam: EOMI, PERRL - ENT Exam ENT Exam: Mucous Membranes Dry, Normal Oropharynx - Neck Exam Neck exam: Positive for: Normal Inspection - Respiratory Exam Respiratory Exam: Decreased Breath Sounds, NORMAL BREATHING PATTERN - Cardiovascular Exam Cardiovascular Exam: REGULAR RHYTHM, +S1, +S2 - GI/Abdominal Exam GI & Abdominal Exam: Soft (peg TUBE IN PLACE +VE DRESSING IN PLACE. mINIMAL DRAINAGE AROUND THE peg SITE.) - Extremities Exam Extremities exam: Positive for: pedal edema, pedal pulses present. Negative for: calf tenderness - Neurological Exam Neurological exam: Alert, CN II-XII Intact - Psychiatric Exam Psychiatric exam: Flat Affect - Skin Skin Exam: Normal Color, Warm Results - Vital Signs Recent Vital Signs: Last Vital Signs Temp 98.1 F 07/01/18 15:00 Pulse 87 07/01/18 15:00 Resp 20 07/01/18 15:00 BP 133/72 07/01/18 17:38 Pulse Ox 98 07/01/18 18:25 - Labs Result Diagrams: 07/02/18 07:45 07/02/18 07:45 Labs: Laboratory Results - last 24 hr 07/01/18 07/01/18 07/01/18 05:16 11:00 15:57 POC Glucose (mg/dL) 273 H 232 H 160 H 07/01/18 21:02 POC Glucose (mg/dL) 221 H - Imaging and Cardiology Chest x-ray Status: Report reviewed by me (chest x-ray 06/29/18-patchy increased interstitial markings right hilar region and left lower base.s/p sternotomy. Cardiomegaly. Left-sided pacemaker.) Assessment & Plan (1) UTI (urinary tract infection) Assessment and Plan: urine culture positive for gram-positive cocc-identification pending . Continue IV Azactam decreased dose to 1 g every 12 hourly 07/01/18. . Add IV vancomycin 1 g every 24 hourly.07/01/18 . continue IV Diflucan 100 mg OD daily as ordered.07/01/18 Follow-up cultures to adjust antibiotics Status: Acute (2) Infection of gastrostomy site Assessment and Plan: PEG tube drainage wound culture +ve gram-positive cocci -Corynebacterium species ? skin melody. Await final cultures. Patient on IV antibiotics. Status: Acute (3) Leukocytosis Assessment and Plan: follow-up CBC. Follow-up cultures to adjust antibiotics Status: Acute (4) Hx of CABG Status: Acute (5) Diabetes Assessment and Plan: PATIENT HAS HISTORY OF DIABETES MELLITUS. aDEQUATE CONTROL OF BLOOD SUGARS. Status: Chronic
[2018-07-02] MEDS: (Novolin R) Insulin Human Regular 100 units/ml vial SC SCH ×5 (00:13→23:45)
--- NOTE | 2018-07-02 00:31 | PN ---
DATE: 07/01/2018 SUBJECTIVE: The patient was seen by me this morning. The patient is awake and responding but she is not taking, complaining of no vomiting, no chest pain, not in any distress. The patient has significant nail changes from the fungal infection. PHYSICAL EXAMINATION: VITAL SIGNS: Stable. CHEST: Good air entry. Minimal expiratory wheezing noted. HEART: Regular heart sound. EXTREMITIES: Edema 1+ noted. LABORATORY DATA: The patient had a blood test done today showing, her blood glucose level is normal. WBC is 14.9. Wound culture gram positive cocci and also urine culture is positive for gram positive cocci. is currently pending. ASSESSMENT AND PLAN: Currently, the patient is on Azactam. We will get Infectious Disease evaluation. We will also add Diflucan for the possible fungal infection. Continue the current treatment, bronchodilator, respiratory treatment, and we will follow up the patient. Luis Manuel Patel MD
[2018-07-02] MEDS: Albuterol-Ipratrop 3 mg / 0.5 (3 ml) UD INH SCH ×4 (01:26→19:51)
[2018-07-02] MEDS: Aztreonam 1 GM in Sodium Chloride 0.9% 100 ML IVPB SCH ×2 (05:11→18:01)
[2018-07-02] MEDS: Pantoprazole 40 mg Susp UD PO SCH (05:26)
[2018-07-02 07:55] LABS: BASO # 0.1 K/uL (0.0-0.2); BASO % 0.9 % (0.0-2.0); EOS # 0.3 K/uL (0.0-0.7); EOS % 3.6 % (0.0-4.0); HEMOGLOBIN 10.5 g/dL (11.0-16.0); LYMPH # 1.2 K/uL (1.0-4.3); MEAN CELL VOLUME 92.8 fL (81.0-99.0); MEAN CORPUSCULAR HEMOGLOBIN 32.6 pg (27.0-31.0); MEAN CORPUSCULAR HGB CONC 35.1 g/dL (33.0-37.0); MEAN PLATELET VOLUME 7.5 fL (7.2-11.7); MONO # 0.8 K/uL (0.0-0.8); MONO % 9.7 % (0.0-10.0); NEUT # 5.8 K/uL (1.8-7.0); NEUT % 70.8 % (50.0-75.0); RBC 3.23 Mil/uL (3.80-5.20); RED CELL DISTRIBUTION WIDTH 16.2 % (11.5-14.5); WHITE BLOOD COUNT 8.1 K/uL (4.8-10.8)
[2018-07-02 08:28] LABS: ALB/GLOB RATIO 1.1 (1.0-2.1); ALBUMIN 3.9 g/dL (3.5-5.0); ALT/SGPT 19 U/L (9-52); AST/SGOT 16 U/L (14-36); BILIRUBIN,DIRECT 0.4 mg/dL (0.0-0.4); BLOOD UREA NITROGEN 30 mg/dL (7-17); CALCIUM 9.9 mg/dl (8.6-10.4); GFR NON-AFRICAN AMERICAN > 60
[2018-07-02] MEDS: (Lantus) Insulin Glargine, Recombinant SC SCH (09:07)
[2018-07-02] MEDS: Bacitracin/Neomycin/Polymyxin Oint(30GM) TOP SCH (09:08)
[2018-07-02] MEDS ORDERED: Fluconazole IV 200mg/100 ml NS 100 MG in Premixed IV 1 EA IVPB SCH (10:00)
--- NOTE | 2018-07-02 19:24 | CARD ---
APPROVED REPORT Date of service: 06/29/2018 EKG Measurement Heart [id number] ID [id number] <Conclusion> Normal sinus rhythm Right bundle branch block Moderate voltage criteria for LVH, may be normal variant Inferior infarct, age undetermined T wave abnormality, consider lateral ischemia Abnormal ECG
--- NOTE | 2018-07-02 19:25 | CARD ---
APPROVED REPORT Date of service: 06/29/2018 EKG Measurement Heart [id number] <Conclusion> Normal sinus rhythm Right bundle branch block Moderate voltage criteria for LVH, may be normal variant Inferior infarct, age undetermined T wave abnormality, consider lateral ischemia Abnormal ECG
--- NOTE | 2018-07-02 23:47 | CP.PCM.PN ---
Subjective - Date & Time of Evaluation Date of Evaluation: 07/02/18 Time of Evaluation: 23:47 - Subjective Subjective: AFEBRILE, MORE RESPONSIVE HAD A LARGE BOWEL MOVEMENT TODAY. PEG SITE -DRESSING CLEAN AND DRY IN PLACE. oN iv ANTIBIOTICS. Objective - Vital Signs/Intake and Output Vital Signs (last 24 hours): Temp Pulse Resp BP Pulse Ox 97.9 F 93 H 20 112/78 94 L 07/02/18 15:15 07/02/18 15:15 07/02/18 15:15 07/02/18 18:02 07/02/18 15:15 Intake and Output: 07/02/18 07/03/18 18:59 06:59 Intake Total 540 420 Balance 540 420 - Medications Medications: Current Medications Acetaminophen (Tylenol 650 Mg Supp) 650 mg PA Q6 PRN PRN Reason: Fever >100.4 F Albuterol/Ipratropium (Duoneb 3 Mg/0.5 Mg (3 Ml) Ud) 3 ml INH RQ6 [facility] Last Admin: 07/02/18 19:51 Dose: 3 ml Diltiazem HCl (Cardizem) 30 mg PO QID [facility] Last Admin: 07/02/18 21:55 Dose: 30 mg Heparin Sodium (Porcine) (Heparin) 5,000 units SC Q8 [facility] Last Admin: 07/02/18 21:55 Dose: 5,000 units Fluconazole 100 mg/ (Miscellaneous) 50 mls @ 100 mls/hr IVPB DAILY [facility]; Protocol Last Admin: 07/02/18 10:25 Dose: 100 mls/hr Vancomycin HCl 1 gm/ Sodium (Chloride) 250 mls @ 166.7 mls/hr IVPB Q24H [facility]; Protocol Last Admin: 07/02/18 22:51 Dose: 166.7 mls/hr Aztreonam 1 gm/ Sodium (Chloride) 100 mls @ 200 mls/hr IVPB Q12H [facility]; Protocol Last Admin: 07/02/18 18:01 Dose: 200 mls/hr Insulin Glargine (Lantus) 25 unit SC DAILY [facility] Last Admin: 07/02/18 09:07 Dose: 25 u Insulin Human Regular (Novolin R) 0 unit SC Q6 [facility]; Protocol Last Admin: 07/02/18 23:45 Dose: Not Given Metoprolol Tartrate (Lopressor) 25 mg PO BID [facility] Last Admin: 07/02/18 18:02 Dose: 25 mg Neomycin/Polymyxin/Bacitracin (Neosporin Triple Antibiotic Oint) 1 gm TOP DAILY [facility] Last Admin: 07/02/18 09:08 Dose: 1 applic Nystatin (Nystop Topical Powder) 1 applic TOP BID [facility] Last Admin: 07/02/18 18:03 Dose: 1 applic Pantoprazole Sodium (Protonix Susp) 40 mg PO 0600 [facility] Last Admin: 07/02/18 05:26 Dose: 40 mg Rosuvastatin Calcium (Crestor) 10 mg PO HS [facility] Last Admin: 07/02/18 21:55 Dose: 10 mg - Labs Labs: 07/02/18 07:45 07/02/18 07:45 - Constitutional Appears: No Acute Distress, Chronically Ill - Head Exam Head Exam: NORMAL INSPECTION - Eye Exam Eye Exam: EOMI, PERRL - ENT Exam ENT Exam: Normal Oropharynx - Neck Exam Neck Exam: Normal Inspection - Respiratory Exam Respiratory Exam: Decreased Breath Sounds, NORMAL BREATHING PATTERN (BILATERAL BASES) - Cardiovascular Exam Cardiovascular Exam: REGULAR RHYTHM, +S1, +S2 - GI/Abdominal Exam GI & Abdominal Exam: Soft, Normal Bowel Sounds. absent: Tenderness - Extremities Exam Extremities Exam: Normal Capillary Refill, Pedal Edema (ONE PLUS). absent: Calf Tenderness - Neurological Exam Neurological Exam: Alert, Awake, CN II-XII Intact, Reflexes Normal - Psychiatric Exam Psychiatric exam: Normal Mood - Skin Skin Exam: Normal Color, Warm Assessment and Plan (1) UTI (urinary tract infection) Assessment & Plan: urine culture 06/29/18-+ve VANCOMYCIN RESISTANT ENTEROCOCCUS. DC IV VANCOMYCIN. START IV ZYVOX 600 MG EVERY 12 HOURLY FOR VRE . 07/02/18 CONTACT PRECAUTIONS FOR VRE. Status: Acute (2) Infection of gastrostomy site Assessment & Plan: peg EXIT SITE WOUND +VE ENTEROCOCCUS FAECALIS/CORYNEBACTERIUM SPECIES DC IV VANCOMYCIN sTART iv zYVOX 600 EVERY 12 HOURLY FOR SOFT TISSUE SKIN INFECTION. DC IV FLUCONAZOLE. Status: Acute (3) Leukocytosis Assessment & Plan: FOLLOW-UP cbc WITH DIFFERENTIAL wATCH FOR BONE MARROW DEPRESSION Status: Acute (4) Diabetes Status: Chronic (5) Hx of CABG Status: Acute
[2018-07-03] MEDS: Albuterol-Ipratrop 3 mg / 0.5 (3 ml) UD INH SCH ×4 (01:00→20:02)
[2018-07-03] MEDS: Linezolid 600 mg in D5W 300 ml 600 MG/300 ML BAG IVPB SCH ×2 (01:33→12:45)
--- NOTE | 2018-07-03 01:45 | PN ---
DATE: 07/02/2018 SUBJECTIVE: The patient is now more awake and responding, but she is not verbalizing, but she is responding to the simple commands. PHYSICAL EXAMINATION VITAL SIGNS: Temperature 97.9, pulse 93, blood pressure 116/72, saturation is 97% on nasal cannula. CHEST: Good air entry. HEART: Regular heart sound. ABDOMEN: Nontender abdomen. EXTREMITIES: No pedal edema. ASSESSMENT AND PLAN: The patient has a percutaneous endoscopic gastrostomy tube, receiving the feeding. The patient today is seen by Infectious Disease. Currently, the patient is on vancomycin, fluconazole as well as aztreonam. We will repeat the labs tomorrow. The patient is an 87-year-old female, admitted with a history of coronary artery bypass grafting, chronic obstructive pulmonary disease, coronary artery disease, home oxygen, recurrent aspiration pneumonia, urinary tract infection, achalasia cardia, percutaneous endoscopic gastrostomy tube feeding, intermittent atrial flutter and fibrillation, also has a history of pacemaker. We will continue the current management, possible rehab, repeat cultures. We will follow up with the patient. LuisM anuel Patel MD
[2018-07-03] MEDS: Aztreonam 1 GM in Sodium Chloride 0.9% 100 ML IVPB SCH ×2 (05:07→18:00)
[2018-07-03] MEDS: Pantoprazole 40 mg Susp UD PO SCH (05:17)
[2018-07-03] MEDS: (Novolin R) Insulin Human Regular 100 units/ml vial SC SCH ×3 (05:28→17:54)
--- NOTE | 2018-07-03 09:30 | RAD ---
Chest x-ray single frontal view HISTORY: Pneumonia. COMPARISON: 06/29/2018 Findings: Hyperinflation suggestive for COPD and or emphysematous changes. Biapical pleural thickening. Bilateral hilar prominence. Diffuse increased interstitial markings Blunted right costophrenic angle may represent trace effusion. Enlarged ectatic aorta with calcification at the aortic knob. Mild cardiomegaly. Left-sided pacemaker. Status post median sternotomy and CABG. Degenerative changes in the spine and shoulders. Surgical clips in the left upper abdomen. Impression: Hyperinflation suggestive for COPD and or emphysematous changes. Biapical pleural thickening. Bilateral hilar prominence. Diffuse increased interstitial markings Blunted right costophrenic angle may represent trace effusion. Enlarged ectatic aorta with calcification at the aortic knob. Mild cardiomegaly. Left-sided pacemaker. Status post median sternotomy and CABG. Degenerative changes in the spine and shoulders. Surgical clips in the left upper abdomen.
[2018-07-03] MEDS: Bacitracin/Neomycin/Polymyxin Oint(30GM) TOP SCH (09:32)
[2018-07-03] MEDS: (Lantus) Insulin Glargine, Recombinant SC SCH (09:33)
--- NOTE | 2018-07-03 22:46 | CP.PCM.PN ---
Subjective - Date & Time of Evaluation Date of Evaluation: 07/03/18 Time of Evaluation: 22:46 - Subjective Subjective: AFEBRILE, VSS. AWAKE AND RESPONSIVE NAEO. LABS ; nOTED. URINE CULTURE +VE VRE. WOUND CULTURE +VE ENTEROCOCCUS FAECALIS S-AMPICILLIN +VE CORYNEBACTERIUM SPECIES. Objective - Vital Signs/Intake and Output Vital Signs (last 24 hours): Temp Pulse Resp BP Pulse Ox 98.6 F 95 H 20 157/76 H 98 07/03/18 15:00 07/03/18 15:00 07/03/18 15:00 07/03/18 17:55 07/03/18 15:00 Intake and Output: 07/03/18 07/04/18 18:59 06:59 Intake Total 670 Balance 670 - Medications Medications: Current Medications Acetaminophen (Tylenol 650 Mg Supp) 650 mg SC Q6 PRN PRN Reason: Fever >100.4 F Albuterol/Ipratropium (Duoneb 3 Mg/0.5 Mg (3 Ml) Ud) 3 ml INH RQ6 [facility] Last Admin: 07/03/18 20:02 Dose: 3 ml Diltiazem HCl (Cardizem) 30 mg PO QID [facility] Last Admin: 07/03/18 21:42 Dose: 30 mg Heparin Sodium (Porcine) (Heparin) 5,000 units SC Q8 [facility] Last Admin: 07/03/18 21:40 Dose: 5,000 units Aztreonam 1 gm/ Sodium (Chloride) 100 mls @ 200 mls/hr IVPB Q12H [facility]; Protocol Last Admin: 07/03/18 18:00 Dose: 200 mls/hr Linezolid (Zyvox 600mg/300ml D5w) 600 mg in 300 mls @ 200 mls/hr IVPB Q12H [facility]; Protocol Last Admin: 07/03/18 12:45 Dose: 200 mls/hr Insulin Glargine (Lantus) 25 unit SC DAILY [facility] Last Admin: 07/03/18 09:33 Dose: 25 u Insulin Human Regular (Novolin R) 0 unit SC Q6 [facility]; Protocol Last Admin: 07/03/18 17:54 Dose: 2 u Metoprolol Tartrate (Lopressor) 25 mg PO BID [facility] Last Admin: 07/03/18 17:55 Dose: 25 mg Neomycin/Polymyxin/Bacitracin (Neosporin Triple Antibiotic Oint) 1 gm TOP DAILY [facility] Last Admin: 07/03/18 09:32 Dose: 1 applic Nystatin (Nystop Topical Powder) 1 applic TOP BID [facility] Last Admin: 07/03/18 17:56 Dose: 1 applic Pantoprazole Sodium (Protonix Susp) 40 mg PO 0600 [facility] Last Admin: 07/03/18 05:17 Dose: 40 mg Rosuvastatin Calcium (Crestor) 10 mg PO HS [facility] Last Admin: 07/03/18 21:39 Dose: 10 mg - Labs Labs: 07/02/18 07:45 07/02/18 07:45 - Constitutional Appears: No Acute Distress - Head Exam Head Exam: NORMAL INSPECTION - Eye Exam Eye Exam: EOMI, PERRL - ENT Exam ENT Exam: Normal Oropharynx - Neck Exam Neck Exam: Normal Inspection - Cardiovascular Exam Cardiovascular Exam: REGULAR RHYTHM, +S1, +S2 - GI/Abdominal Exam GI & Abdominal Exam: Soft, Normal Bowel Sounds (+VE PEG SITE +VE DRESSING .) - Extremities Exam Extremities Exam: Normal Capillary Refill, Pedal Edema. absent: Calf Tenderness - Neurological Exam Neurological Exam: Awake (CONFUSED AT TIMES.) - Psychiatric Exam Psychiatric exam: Normal Mood - Skin Skin Exam: Normal Color, Warm Assessment and Plan (1) UTI (urinary tract infection) Assessment & Plan: urine culture 06/29/18-+ve VANCOMYCIN RESISTANT ENTEROCOCCUS. DC IV VANCOMYCIN. START IV ZYVOX 600 MG EVERY 12 HOURLY FOR VRE . 07/02/18 CONTACT PRECAUTIONS FOR VRE. Status: Acute (2) Infection of gastrostomy site Assessment & Plan: EXIT SITE WOUND +VE ENTEROCOCCUS FAECALIS/CORYNEBACTERIUM SPECIES DC IV VANCOMYCIN START iv zYVOX 600 EVERY 12 HOURLY FOR SOFT TISSUE SKIN INFECTION. PATIENT MAY NEED INTERVENTION TO CHANGE PEG> PATIENT'S HYGIENE VERY POOR. LONG NAILS FULL OF FECAL MATERIAL CONSIDER PODIATRY CONSULT FOR CUTTING THE NAILS/BOTH HANDS AND FEET. Status: Acute (3) Leukocytosis Assessment & Plan: F/U cbc WITH DIFFERENTIAL IN A.M. Status: Acute (4) Diabetes Status: Chronic (5) Hx of CABG Status: Acute
[2018-07-04] MEDS: (Novolin R) Insulin Human Regular 100 units/ml vial SC SCH ×5 (00:22→23:45)
[2018-07-04] MEDS: Linezolid 600 mg in D5W 300 ml 600 MG/300 ML BAG IVPB SCH ×2 (00:23→12:58)
--- NOTE | 2018-07-04 00:41 | PQF ---
PROVIDER RESPONSE TEXT: Sepsis Multifactorial POA in the setting positive U/A and Urine CS, Peg site Infection with Positive wound CS. treated Zyvox IV and Aztreonam IV. ID Consult. REVIEWER QUERY TEXT: Clarification of Clinical Diagnostic Findings Please clarify documentation or clinical relevance for the clinical / diagnostic findings or whether those are insignificant or unable to be further specified. Sepsis Multifactorial POA in the setting positive U/A and Urine CS, Peg site Infection with Positive wound CS. treated Zyvox IV and Aztreonam IV. ID Consult. -Other Explanation. -Unable to Determine The patient's Clinical Indicators include: Clinical Findings: Leukocytosis Wbc= 14.9, Neuts= 76. Positive U/A, Positive urine CS for VRE. Peg s ite CS positive for Corynebacteruin sp. Treatment: Zyvox IV, Aztreonam IV Risk factor: multifactorial source UTI ,Infection Peg site. Query created by: Sierra Hoang on 07/03/2018 4:38 PM Electronically signed by: Luis Manuel Patel MD 07/04/2018 12:38 AM
--- NOTE | 2018-07-04 01:14 | PN ---
DATE: 07/03/2018 SUBJECTIVE: The patient is now sleeping comfortably, not in any distress. The patient is having minimal cough and respiratory congestion noted. Tolerating the PEG tube feeding. PHYSICAL EXAMINATION: VITAL SIGNS: Temperature is 98.6, pulse 95, blood pressure 157/76, respirations 20, and saturation 98%. Clinical examination is unremarkable otherwise. Currently, the patient is receiving intravenous antibiotic with Zyvox and aztreonam as per the ID. Microbiology showing evidence of vancomycin-sensitive Enterococcus fecalis and also vancomycin-resistant Enterococcus faecium. The patient is currently being receiving the Zyvox. We will repeat the blood works tomorrow. As the patient is having resistant VRE, the patient will need long-term IV antibiotics as per ID. We will continue to monitor. Continue with bronchodilator, respiratory watch, aspiration precaution, PEG tube feeding, and we will follow up with the patient. Luis Manuel Patel MD
[2018-07-04] MEDS: Albuterol-Ipratrop 3 mg / 0.5 (3 ml) UD INH SCH ×4 (01:35→19:24)
[2018-07-04] MEDS: Aztreonam 1 GM in Sodium Chloride 0.9% 100 ML IVPB SCH ×2 (04:59→17:25)
[2018-07-04] MEDS: Pantoprazole 40 mg Susp UD PO SCH (05:16)
[2018-07-04 08:58] LABS: BASO # 0.1 K/uL (0.0-0.2); BASO % 1.4 % (0.0-2.0); EOS # 0.3 K/uL (0.0-0.7); EOS % 3.8 % (0.0-4.0); HEMOGLOBIN 10.1 g/dL (11.0-16.0); LYMPH # 1.6 K/uL (1.0-4.3); MEAN CORPUSCULAR HEMOGLOBIN 35.3 pg (27.0-31.0); MEAN PLATELET VOLUME 7.8 fL (7.2-11.7); MONO # 0.7 K/uL (0.0-0.8); MONO % 7.8 % (0.0-10.0); NEUT # 6.2 K/uL (1.8-7.0); NRBC % 0.2 % (0.0-2.0); RBC 2.87 Mil/uL (3.80-5.20); RED CELL DISTRIBUTION WIDTH 15.9 % (11.5-14.5)
[2018-07-04 08:59] LABS: MEAN CELL VOLUME 95.4 fL (81.0-99.0)
[2018-07-04] MEDS: Bacitracin/Neomycin/Polymyxin Oint(30GM) TOP SCH (09:47)
[2018-07-04] MEDS: (Lantus) Insulin Glargine, Recombinant SC SCH (09:49)
[2018-07-04 11:58] LABS: ALB/GLOB RATIO 1.2 (1.0-2.1); ALBUMIN 3.7 g/dL (3.5-5.0); ALT/SGPT 23 U/L (9-52); AST/SGOT 21 U/L (14-36); BLOOD UREA NITROGEN 24 mg/dL (7-17); CALCIUM 9.5 mg/dl (8.6-10.4); GFR NON-AFRICAN AMERICAN > 60
--- NOTE | 2018-07-04 20:21 | CP.PCM.PN ---
Subjective - Date & Time of Evaluation Date of Evaluation: 07/04/18 Time of Evaluation: 20:21 - Subjective Subjective: AFEBRILE, VSS. NO NEW COMPLAINTS NAEO. LABS ; REVIEWED URINE CULTURE +VE VRE. WOUND CULTURE +VE ENTEROCOCCUS FAECALIS S-AMPICILLIN +VE CORYNEBACTERIUM SPECIES. ON IV ABX Objective - Vital Signs/Intake and Output Vital Signs (last 24 hours): Temp Pulse Resp BP Pulse Ox 97.9 F 92 H 20 120/63 100 07/04/18 15:57 07/04/18 15:57 07/04/18 15:57 07/04/18 17:29 07/04/18 15:57 Intake and Output: 07/04/18 07/05/18 18:59 06:59 Intake Total 770 Balance 770 - Medications Medications: Current Medications Acetaminophen (Tylenol 650 Mg Supp) 650 mg [place] Q6 PRN PRN Reason: Fever >100.4 F Albuterol/Ipratropium (Duoneb 3 Mg/0.5 Mg (3 Ml) Ud) 3 ml INH RQ6 [facility] Last Admin: 07/04/18 19:24 Dose: 3 ml Diltiazem HCl (Cardizem) 30 mg PO QID [facility] Last Admin: 07/04/18 17:29 Dose: 30 mg Heparin Sodium (Porcine) (Heparin) 5,000 units SC Q8 [facility] Last Admin: 07/04/18 14:16 Dose: 5,000 units Aztreonam 1 gm/ Sodium (Chloride) 100 mls @ 200 mls/hr IVPB Q12H [facility]; Protocol Last Admin: 07/04/18 17:25 Dose: 200 mls/hr Linezolid (Zyvox 600mg/300ml D5w) 600 mg in 300 mls @ 200 mls/hr IVPB Q12H [facility]; Protocol Last Admin: 07/04/18 12:58 Dose: 200 mls/hr Insulin Glargine (Lantus) 25 unit SC DAILY [facility] Last Admin: 07/04/18 09:49 Dose: 25 u Insulin Human Regular (Novolin R) 0 unit SC Q6 [facility]; Protocol Last Admin: 07/04/18 17:26 Dose: 4 u Metoprolol Tartrate (Lopressor) 25 mg PO BID [facility] Last Admin: 07/04/18 17:29 Dose: 25 mg Neomycin/Polymyxin/Bacitracin (Neosporin Triple Antibiotic Oint) 1 gm TOP DAILY [facility] Last Admin: 07/04/18 09:47 Dose: 1 applic Nystatin (Nystop Topical Powder) 1 applic TOP BID [facility] Last Admin: 07/04/18 17:26 Dose: 1 applic Pantoprazole Sodium (Protonix Susp) 40 mg PO 0600 [facility] Last Admin: 07/04/18 05:16 Dose: 40 mg Rosuvastatin Calcium (Crestor) 10 mg PO HS [facility] Last Admin: 07/03/18 21:39 Dose: 10 mg - Labs Labs: 07/04/18 08:41 07/04/18 08:41 - Constitutional Appears: No Acute Distress, Confused, Chronically Ill - Head Exam Head Exam: NORMAL INSPECTION - Eye Exam Eye Exam: EOMI, PERRL - ENT Exam ENT Exam: Normal Oropharynx - Neck Exam Neck Exam: Normal Inspection - Respiratory Exam Respiratory Exam: Decreased Breath Sounds, NORMAL BREATHING PATTERN - Cardiovascular Exam Cardiovascular Exam: REGULAR RHYTHM, +S1, +S2 - GI/Abdominal Exam GI & Abdominal Exam: Soft, Normal Bowel Sounds (PEG IN PLACE . NO MORE BLEEDING NOTED) - Extremities Exam Extremities Exam: Normal Capillary Refill, Pedal Edema. absent: Calf Tenderness - Neurological Exam Neurological Exam: Awake, CN II-XII Intact - Psychiatric Exam Psychiatric exam: Normal Mood - Skin Skin Exam: Normal Color, Warm Assessment and Plan (1) UTI (urinary tract infection) Assessment & Plan: BLOOD CULTURE2:2 SETS -VE X TO DATE urine culture 06/29/18-+ve VANCOMYCIN RESISTANT ENTEROCOCCUS. DC IV VANCOMYCIN. CONTINUE IV ZYVOX 600 MG EVERY 12 HOURLY FOR VRE . 07/02/18 ON IV AZACTAM 1GM IVPB [id number]. F/U CULTURES TO ADJUST ABX. CONTACT PRECAUTIONS FOR VRE. Status: Acute (2) Infection of gastrostomy site Assessment & Plan: LOCAL WOUND CARE AND DRESSING CHANGES PRN. Status: Acute (3) Leukocytosis Assessment & Plan: IMPROVING. Status: Acute (4) Diabetes Status: Chronic (5) Hx of CABG Status: Acute
[2018-07-05] MEDS: Linezolid 600 mg in D5W 300 ml 600 MG/300 ML BAG IVPB SCH ×2 (00:34→12:19)
--- NOTE | 2018-07-05 00:34 | PN ---
DATE: 07/04/2018 SUBJECTIVE: The patient is now having no fever. She is alert and comfortable, not in any distress. PHYSICAL EXAMINATION: VITAL SIGNS: Temperature 97.9, pulse 92, blood pressure 120/63, respirations 20, and saturation is 100%. CHEST: Good air entry. HEART: Regular heart sound. ABDOMEN: Nontender abdomen. EXTREMITIES: Pedal edema. CURRENT MEDICATIONS: Include aztreonam, diltiazem, Crestor, DuoNeb, Lantus, metoprolol, topical bacitracin, nystatin, pantoprazole, and linezolid 600 mg every 12 hours. ASSESSMENT AND PLAN: The patient is being treated for vancomycin-resistant enterococcal urinary tract infection. The patient is at high risk for liver disease, and we will monitor the white blood cell. The patient will need a continuous antibiotic as per Infectious Disease. We will discuss with the patient's family. The patient possibly can be transferred to rehabilitation if the bed is available or the insurance is allowing, but she needs at this time long-term IV antibiotic to reduce the recurrence of infection. Continue the IV hydration. Continue gastrointestinal feeding. Deep venous thrombosis and gastrointestinal prophylaxis. We will follow up the patient. Luis Manuel Patel MD
[2018-07-05] MEDS: Albuterol-Ipratrop 3 mg / 0.5 (3 ml) UD INH SCH ×4 (01:21→19:20)
[2018-07-05] MEDS: Aztreonam 1 GM in Sodium Chloride 0.9% 100 ML IVPB SCH ×2 (05:15→17:03)
[2018-07-05] MEDS: (Novolin R) Insulin Human Regular 100 units/ml vial SC SCH ×3 (05:38→17:06)
[2018-07-05] MEDS: Pantoprazole 40 mg Susp UD PO SCH (05:39)
[2018-07-05] MEDS: (Lantus) Insulin Glargine, Recombinant SC SCH (09:37)
[2018-07-05] MEDS: Bacitracin/Neomycin/Polymyxin Oint(30GM) TOP SCH (09:40)
[2018-07-06] MEDS: (Novolin R) Insulin Human Regular 100 units/ml vial SC SCH ×4 (00:15→18:16)
--- NOTE | 2018-07-06 00:29 | PN ---
DATE: 07/05/2018 TIME: 08:30 p.m. SUBJECTIVE: The patient is currently comfortably sleeping, not in any distress. PHYSICAL EXAMINATION: VITAL SIGNS: Temperature 98, pulse 102, blood pressure 112.65, saturation is 100% nasal cannula. CHEST: Good air entry bilaterally. HEART: Regular heart sound. ABDOMEN: Nontender. EXTREMITIES: No pedal edema. CENTRAL NERVOUS SYSTEM: The patient is alert, awake, oriented but she is not verbalizing. She is communicating easily, disoriented to place and person noted as well as disoriented to time. PLAN: Discussed with the patient's family. Not in any distress, otherwise. We will continue the current treatment. The patient is currently receiving intravenous antibiotic for enterococcus as well as vancomycin-resistant Enterococcus faecium, possibly the patient will need PICC line and rehab evaluation and long-term antibiotic as per ID. Luis Manuel Patel MD
[2018-07-06] MEDS: Linezolid 600 mg in D5W 300 ml 600 MG/300 ML BAG IVPB SCH ×2 (01:27→12:37)
[2018-07-06] MEDS: Albuterol-Ipratrop 3 mg / 0.5 (3 ml) UD INH SCH ×4 (01:40→19:49)
[2018-07-06] MEDS: Pantoprazole 40 mg Susp UD PO SCH (05:26)
[2018-07-06] MEDS: Aztreonam 1 GM in Sodium Chloride 0.9% 100 ML IVPB SCH (05:28)
[2018-07-06] MEDS: (Lantus) Insulin Glargine, Recombinant SC SCH (10:33)
[2018-07-06] MEDS: Bacitracin/Neomycin/Polymyxin Oint(30GM) TOP SCH (10:33)
--- NOTE | 2018-07-06 10:43 | PN ---
DATE: 07/06/2018 SUBJECTIVE: The patient is more comfortable at this time. She is actually not in any distress, awake, responding but verbalizing is extremely minimal at this time, participating in bedside physical therapy. PHYSICAL EXAMINATION: VITAL SIGNS: Today, temperature 98.7, pulse 81, blood pressure is 104/66, heartbeat 78, saturation is 99 in room air. CHEST: Good air entry. CARDIOPULMONARY: Regular heart sound. ABDOMEN: Nontender. EXTREMITIES: No pedal edema. Mild skin excoriation around the PEG tube noted. Urine is clear otherwise. 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 Zyvox is on. Aztreonam is on also. The patient possibly benefit having a rehab. We will continue the physical therapy. Continue with the tube feeding. Luis Manuel Patel MD
--- NOTE | 2018-07-06 14:03 | CP.PCM.PN ---
Subjective - Date & Time of Evaluation Date of Evaluation: 07/06/18 Time of Evaluation: 14:03 - Subjective Subjective: AFEBRILE, VSS. AWAKE AND RESPONSIVE NAEO. LABS ; nOTED. URINE CULTURE +VE VRE.(E. FAECIUM ) WOUND CULTURE +VE ENTEROCOCCUS FAECALIS S-AMPICILLIN +VE CORYNEBACTERIUM SPECIES. Objective - Vital Signs/Intake and Output Vital Signs (last 24 hours): Temp Pulse Resp BP Pulse Ox 98.3 F 109 H 20 127/89 99 07/06/18 08:23 07/06/18 08:23 07/06/18 08:23 07/06/18 10:33 07/06/18 08:23 Intake and Output: 07/06/18 07/06/18 06:59 18:59 Intake Total 890 Balance 890 - Medications Medications: Current Medications Acetaminophen (Tylenol 650 Mg Supp) 650 mg [place] Q6 PRN PRN Reason: Fever >100.4 F Albuterol/Ipratropium (Duoneb 3 Mg/0.5 Mg (3 Ml) Ud) 3 ml INH RQ6 [facility] Last Admin: 07/06/18 08:47 Dose: 3 ml Diltiazem HCl (Cardizem) 30 mg PO QID [facility] Last Admin: 07/06/18 13:49 Dose: 30 mg Heparin Sodium (Porcine) (Heparin) 5,000 units SC Q8 [facility] Last Admin: 07/06/18 13:33 Dose: 5,000 units Linezolid (Zyvox 600mg/300ml D5w) 600 mg in 300 mls @ 200 mls/hr IVPB Q12H [facility]; Protocol Last Admin: 07/06/18 12:37 Dose: 200 mls/hr Insulin Glargine (Lantus) 25 unit SC DAILY [facility] Last Admin: 07/06/18 10:33 Dose: 25 u Insulin Human Regular (Novolin R) 0 unit SC Q6 [facility]; Protocol Last Admin: 07/06/18 11:46 Dose: 4 u Metoprolol Tartrate (Lopressor) 25 mg PO BID [facility] Last Admin: 07/06/18 10:33 Dose: 25 mg Neomycin/Polymyxin/Bacitracin (Neosporin Triple Antibiotic Oint) 1 gm TOP DAILY [facility] Last Admin: 07/06/18 10:33 Dose: 1 applic Nystatin (Nystop Topical Powder) 1 applic TOP BID [facility] Last Admin: 07/06/18 10:34 Dose: 1 applic Pantoprazole Sodium (Protonix Susp) 40 mg PO 0600 [facility] Last Admin: 07/06/18 05:26 Dose: 40 mg Rosuvastatin Calcium (Crestor) 10 mg PO HS [facility] Last Admin: 07/05/18 21:09 Dose: 10 mg - Labs Labs: 07/04/18 08:41 07/04/18 08:41 - Constitutional Appears: No Acute Distress, Confused, Chronically Ill - Head Exam Head Exam: NORMAL INSPECTION - Eye Exam Eye Exam: EOMI, PERRL - ENT Exam ENT Exam: Normal Oropharynx - Neck Exam Neck Exam: Normal Inspection - Respiratory Exam Respiratory Exam: Decreased Breath Sounds (BASES) - Cardiovascular Exam Cardiovascular Exam: REGULAR RHYTHM, +S1, +S2 - GI/Abdominal Exam GI & Abdominal Exam: Soft, Normal Bowel Sounds (+VE SOME EXCORIATIONS AROUND PEG SITE.DRESSING C/D/I). absent: Tenderness - Extremities Exam Extremities Exam: absent: Calf Tenderness, Pedal Edema - Neurological Exam Neurological Exam: Altered, Awake - Psychiatric Exam Psychiatric exam: Normal Affect - Skin Skin Exam: Dry, Normal Color, Warm Assessment and Plan (1) UTI (urinary tract infection) Assessment & Plan: BLOOD CULTURE2:2 SETS -VE X TO DATE urine culture 06/29/18-+ve VANCOMYCIN RESISTANT ENTEROCOCCUS. CONTINUE IV ZYVOX 600 MG EVERY 12 HOURLY FOR VRE . 07/02/18 DC IV AZACTAM 1GM IVPB [id number]. F/U CULTURES TO ADJUST ABX. CONTACT PRECAUTIONS FOR VRE. Status: Acute (2) Infection of gastrostomy site Assessment & Plan: LOCAL WOUND CARE AND DRESSING CHANGES PRN. Status: Acute (3) Leukocytosis Status: Acute (4) Diabetes Status: Chronic (5) Hx of CABG Status: Acute
[2018-07-07] MEDS: (Novolin R) Insulin Human Regular 100 units/ml vial SC SCH ×5 (00:03→23:48)
[2018-07-07] MEDS: Linezolid 600 mg in D5W 300 ml 600 MG/300 ML BAG IVPB SCH ×2 (00:23→12:28)
[2018-07-07] MEDS: Albuterol-Ipratrop 3 mg / 0.5 (3 ml) UD INH SCH ×4 (01:11→20:38)
[2018-07-07] MEDS: Pantoprazole 40 mg Susp UD PO SCH (05:25)
[2018-07-07] MEDS: Bacitracin/Neomycin/Polymyxin Oint(30GM) TOP SCH (10:27)
[2018-07-07] MEDS: (Lantus) Insulin Glargine, Recombinant SC SCH (10:27)
[2018-07-08] MEDS: Linezolid 600 mg in D5W 300 ml 600 MG/300 ML BAG IVPB SCH ×2 (00:09→13:21)
[2018-07-08] MEDS: Albuterol-Ipratrop 3 mg / 0.5 (3 ml) UD INH SCH ×4 (01:33→20:40)
[2018-07-08] MEDS: (Novolin R) Insulin Human Regular 100 units/ml vial SC SCH ×3 (05:28→18:48)
[2018-07-08] MEDS: Pantoprazole 40 mg Susp UD PO SCH (05:30)
[2018-07-08 07:51] LABS: BASO # 0.1 K/uL (0.0-0.2); EOS # 0.4 K/uL (0.0-0.7); EOS % 3.6 % (0.0-4.0); HEMOGLOBIN 10.8 g/dL (11.0-16.0); LYMPH # 2.6 K/uL (1.0-4.3); LYMPH % 23.8 % (20.0-40.0); MEAN CELL VOLUME 94.8 fL (81.0-99.0); MEAN CORPUSCULAR HEMOGLOBIN 33.2 pg (27.0-31.0); MEAN PLATELET VOLUME 7.6 fL (7.2-11.7); MONO # 0.6 K/uL (0.0-0.8); MONO % 5.4 % (0.0-10.0); NEUT # 7.3 K/uL (1.8-7.0); NEUT % 66.2 % (50.0-75.0); RBC 3.26 Mil/uL (3.80-5.20)
[2018-07-08 08:27] LABS: ALB/GLOB RATIO 1.2 (1.0-2.1); ALBUMIN 4.2 g/dL (3.5-5.0); ALT/SGPT 23 U/L (9-52); AST/SGOT 23 U/L (14-36); BLOOD UREA NITROGEN 26 mg/dL (7-17); CALCIUM 10.6 mg/dl (8.6-10.4); GFR NON-AFRICAN AMERICAN > 60
--- NOTE | 2018-07-08 10:20 | PN ---
DATE: 07/07/2018 SUBJECTIVE: The patient's blood sugar is somewhat elevated today. The patient is nonverbal, but she is otherwise awake and responding. 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 In spite of the medication, she is still not showing any improvement. PHYSICAL EXAMINATION: VITAL SIGNS: Otherwise stable. Temperature afebrile. Blood pressure 102/64, respirations 20, saturation 97% nasal cannula. HEENT: PERRLA. NECK: Supple. CHEST: Good air entry bilaterally. Rales noted. HEART: Regular heart sound. ABDOMEN: Nontender. ASSESSMENT AND PLAN: The patient has a vancomycin-resistant enterococci in the urine. Currently on antibiotic as per Infectious Disease. The patient will need antibiotic for at least 10 days. We will continue the current treatment. We will discuss with Infectious Disease regarding further plan, physical therapy and we will follow the patient. Luis Manuel Patel MD
[2018-07-08] MEDS: (Lantus) Insulin Glargine, Recombinant SC SCH (10:39)
[2018-07-08] MEDS: Bacitracin/Neomycin/Polymyxin Oint(30GM) TOP SCH (10:45)
--- NOTE | 2018-07-08 22:11 | CP.PCM.PN ---
Subjective - Date & Time of Evaluation Date of Evaluation: 07/08/18 Time of Evaluation: 22:11 - Subjective Subjective: AFEBRILE, VSS. AWAKE AND RESPONSIVE COMFORTABLE. Objective - Vital Signs/Intake and Output Vital Signs (last 24 hours): Temp Pulse Resp BP Pulse Ox 98.4 F 90 20 115/68 95 07/08/18 15:25 07/08/18 15:25 07/08/18 15:25 07/08/18 18:42 07/08/18 15:25 Intake and Output: 07/08/18 07/09/18 18:59 06:59 Intake Total 470 Balance 470 - Medications Medications: Current Medications Acetaminophen (Tylenol 650 Mg Supp) 650 mg [place] Q6 PRN PRN Reason: Fever >100.4 F Albuterol/Ipratropium (Duoneb 3 Mg/0.5 Mg (3 Ml) Ud) 3 ml INH RQ6 [facility] Last Admin: 07/08/18 20:40 Dose: Not Given Diltiazem HCl (Cardizem) 30 mg PO QID [facility] Last Admin: 07/08/18 21:17 Dose: 30 mg Heparin Sodium (Porcine) (Heparin) 5,000 units SC Q8 [facility] Last Admin: 07/08/18 21:17 Dose: 5,000 units Linezolid (Zyvox 600mg/300ml D5w) 600 mg in 300 mls @ 200 mls/hr IVPB Q12H [facility]; Protocol Last Admin: 07/08/18 13:21 Dose: 200 mls/hr Insulin Glargine (Lantus) 25 unit SC DAILY [facility] Last Admin: 07/08/18 10:39 Dose: 25 u Insulin Human Regular (Novolin R) 0 unit SC Q6 [facility]; Protocol Last Admin: 07/08/18 18:48 Dose: 4 u Metoprolol Tartrate (Lopressor) 25 mg PO BID [facility] Last Admin: 07/08/18 18:42 Dose: 25 mg Neomycin/Polymyxin/Bacitracin (Neosporin Triple Antibiotic Oint) 1 gm TOP DAILY [facility] Last Admin: 07/08/18 10:45 Dose: 1 applic Nystatin (Nystop Topical Powder) 1 applic TOP BID [facility] Last Admin: 07/08/18 18:50 Dose: 1 applic Pantoprazole Sodium (Protonix Susp) 40 mg PO 0600 [facility] Last Admin: 07/08/18 05:30 Dose: 40 mg Rosuvastatin Calcium (Crestor) 10 mg PO HS [facility] Last Admin: 07/08/18 21:17 Dose: 10 mg - Labs Labs: 07/08/18 07:46 07/08/18 07:46 - Constitutional Appears: No Acute Distress, Confused - Head Exam Head Exam: NORMAL INSPECTION - Eye Exam Eye Exam: EOMI, PERRL - ENT Exam ENT Exam: Normal Oropharynx - Neck Exam Neck Exam: Normal Inspection - Respiratory Exam Respiratory Exam: Decreased Breath Sounds - Cardiovascular Exam Cardiovascular Exam: REGULAR RHYTHM, +S1, +S2 - GI/Abdominal Exam GI & Abdominal Exam: Soft (PEG IN PLACE/ SOME DRAINAGE ON DRESSING.), Normal Bowel Sounds - Neurological Exam Neurological Exam: Awake, CN II-XII Intact - Psychiatric Exam Psychiatric exam: Flat Affect - Skin Skin Exam: Normal Color, Warm Assessment and Plan (1) UTI (urinary tract infection) Assessment & Plan: URINE CULTURE +VE VRE.(E. FAECIUM ) ON IV ZYVOX 600MG IV Q 12HRLY 07/02/18-DAY- CONTACT PRECAUTIONS FOR VRE. REPEAT UA/URINE CULTURE.07/09/18 Status: Acute (2) Infection of gastrostomy site Assessment & Plan: ON IV ZYVOX. WOUND CULTURE +VE ENTEROCOCCUS FAECALIS S-AMPICILLIN +VE CORYNEBACTERIUM SPECIES. F/U REPEAT WOUND CULTURES IN AM (PEG SITE )07/09/18 Status: Acute (3) Leukocytosis Assessment & Plan: IMPROVING WBC 11.0 Status: Acute (4) Diabetes Status: Chronic (5) Hx of CABG Status: Acute
[2018-07-09] MEDS: Linezolid 600 mg in D5W 300 ml 600 MG/300 ML BAG IVPB SCH ×2 (00:20→12:13)
[2018-07-09] MEDS: (Novolin R) Insulin Human Regular 100 units/ml vial SC SCH ×4 (00:21→17:35)
[2018-07-09] MEDS: Albuterol-Ipratrop 3 mg / 0.5 (3 ml) UD INH SCH ×5 (02:22→20:20)
[2018-07-09] MEDS: Pantoprazole 40 mg Susp UD PO SCH (05:44)
[2018-07-09] MEDS: (Lantus) Insulin Glargine, Recombinant SC SCH (10:29)
[2018-07-09] MEDS: Bacitracin/Neomycin/Polymyxin Oint(30GM) TOP SCH (10:30)
--- NOTE | 2018-07-09 13:02 | PN ---
DATE: 07/08/2018 SUBJECTIVE: The patient is not having any distress, but she is nonverbalizing. Responds to simple commands, on nasal cannula, tolerating the PEG feeding, on IV antibiotic for VRE infection, currently tolerating the antibiotic. Clinically, the patient is stable, otherwise. PHYSICAL EXAMINATION: VITAL SIGNS: Stable. CHEST: Good air entry. HEART: Regular heart sound. ABDOMEN: Nontender abdomen. EXTREMITIES: Edema noted. The patient has dystrophic nails. LABORATORY DATA: Labs reviewed, nonspecific. WBC is 11, hemoglobin is 10, hematocrit is 30.9 and platelet is 386. ASSESSMENT AND PLAN: The patient's daughter is very concerned. Currently, she is on linezolid 600 mg b.i.d. Continue to monitor. We will continue the intravenous antibiotic. Possibly, the patient will need to go to rehab for long-term intravenous antibiotics as per Infectious Disease and we will follow up the patient. Luis Manuel Patel MD
--- NOTE | 2018-07-09 14:19 | CP.PCM.PN ---
Subjective - Date & Time of Evaluation Date of Evaluation: 07/09/18 Time of Evaluation: 14:19 - Subjective Subjective: afebrile, OOB ON CARDIAC CHAIR. iv INFILTRATED. PEG SITE-DRESSING CHANGE TODAY.. CAN CHANGE iv ZYVOX TO BY MOUTH. PATIENT ON BY MOUTH zYVOX NOW. Objective - Vital Signs/Intake and Output Vital Signs (last 24 hours): Temp Pulse Resp BP Pulse Ox 97.5 F L 99 H 20 119/71 95 07/09/18 07:00 07/09/18 07:00 07/09/18 07:00 07/09/18 10:29 07/09/18 07:00 Intake and Output: 07/09/18 07/09/18 06:59 18:59 Intake Total 470 790 Balance 470 790 - Medications Medications: Current Medications Acetaminophen (Tylenol 650 Mg Supp) 650 mg [place] Q6 PRN PRN Reason: Fever >100.4 F Albuterol/Ipratropium (Duoneb 3 Mg/0.5 Mg (3 Ml) Ud) 3 ml INH RQ6 [facility] Last Admin: 07/09/18 08:10 Dose: Not Given Diltiazem HCl (Cardizem) 30 mg PO QID [facility] Last Admin: 07/09/18 13:52 Dose: 30 mg Heparin Sodium (Porcine) (Heparin) 5,000 units SC Q8 [facility] Last Admin: 07/09/18 13:52 Dose: 5,000 units Insulin Glargine (Lantus) 25 unit SC DAILY [facility] Last Admin: 07/09/18 10:29 Dose: 25 u Insulin Human Regular (Novolin R) 0 unit SC Q6 [facility]; Protocol Last Admin: 07/09/18 12:13 Dose: 3 u Linezolid (Zyvox) 600 mg PO BID [facility]; Protocol Metoprolol Tartrate (Lopressor) 25 mg PO BID [facility] Last Admin: 07/09/18 10:29 Dose: 25 mg Neomycin/Polymyxin/Bacitracin (Neosporin Triple Antibiotic Oint) 1 gm TOP DAILY [facility] Last Admin: 07/09/18 10:30 Dose: 1 applic Nystatin (Nystop Topical Powder) 1 applic TOP BID [facility] Last Admin: 07/09/18 10:29 Dose: 1 applic Pantoprazole Sodium (Protonix Susp) 40 mg PO 0600 [facility] Last Admin: 07/09/18 05:44 Dose: 40 mg Rosuvastatin Calcium (Crestor) 10 mg PO HS [facility] Last Admin: 07/08/18 21:17 Dose: 10 mg - Labs Labs: 07/08/18 07:46 07/08/18 07:46 - Constitutional Appears: No Acute Distress, Chronically Ill - Head Exam Head Exam: NORMAL INSPECTION - Eye Exam Eye Exam: EOMI, PERRL - ENT Exam ENT Exam: Normal Oropharynx - Respiratory Exam Respiratory Exam: Decreased Breath Sounds, NORMAL BREATHING PATTERN - Cardiovascular Exam Cardiovascular Exam: REGULAR RHYTHM, +S1, +S2 - GI/Abdominal Exam GI & Abdominal Exam: Soft, Normal Bowel Sounds (PEG IN PLACE. DRESSING C/D/I.) - Extremities Exam Extremities Exam: Normal Capillary Refill, Pedal Edema. absent: Calf Tenderness - Neurological Exam Neurological Exam: Awake - Psychiatric Exam Psychiatric exam: Normal Mood - Skin Skin Exam: Normal Color, Warm Assessment and Plan (1) UTI (urinary tract infection) Assessment & Plan: URINE CULTURE +VE VRE.(E. FAECIUM ) ON IV ZYVOX 600MG IV Q 12HRLY 07/02/18-DAY- --> PO ZYVOX X 7DAYS. CONTACT PRECAUTIONS FOR VRE. REPEAT UA/URINE CULTURE.07/09/18-p Status: Acute (2) Infection of gastrostomy site Assessment & Plan: ON IV ZYVOX --> po zyvox. IV infiltrated. WOUND CULTURE +VE ENTEROCOCCUS FAECALIS S-AMPICILLIN +VE CORYNEBACTERIUM SPECIES. F/U REPEAT WOUND CULTURES IN AM (PEG SITE )07/09/18 Status: Acute (3) Leukocytosis Assessment & Plan: IMPROVING. WBC 11.1. Status: Acute (4) Diabetes Status: Chronic (5) Hx of CABG Status: Acute
[2018-07-10] MEDS: Albuterol-Ipratrop 3 mg / 0.5 (3 ml) UD INH SCH ×5 (01:34→19:25)
[2018-07-10] MEDS: (Novolin R) Insulin Human Regular 100 units/ml vial SC SCH ×4 (05:51→17:40)
[2018-07-10] MEDS: Pantoprazole 40 mg Susp UD PO SCH (05:52)
[2018-07-10 08:23] LABS: SQUAMOUS EPITHIAL 1 /hpf (0-5); URINE BACTERIA RARE (<OCC); URINE BILIRUBIN NEGATIVE (NEGATIVE); URINE BLOOD NEGATIVE (NEGATIVE); URINE CLARITY Clear (Clear); URINE COLOR Yellow (YELLOW); URINE GLUCOSE (UA) NORMAL (Normal); URINE LEUKOCYTE ESTERASE NEG Leu/uL (Negative); URINE PROTEIN NEGATIVE (NEGATIVE); URINE UROBILINOGEN NORMAL mg/dL (0.2-1.0)
[2018-07-10] MEDS: Bacitracin/Neomycin/Polymyxin Oint(30GM) TOP SCH (10:29)
[2018-07-10] MEDS: (Lantus) Insulin Glargine, Recombinant SC SCH (10:29)
--- NOTE | 2018-07-10 20:35 | CP.PCM.PN ---
Subjective - Date & Time of Evaluation Date of Evaluation: 07/10/18 Time of Evaluation: 20:35 - Subjective Subjective: AFEBRILE, MORE RESPONSIVE. COMFORTABLE. ON PO ZYVOX. AWAITING CULTURES REPEAT . cONTINUE LOCAL WOUND CARE. Objective - Vital Signs/Intake and Output Vital Signs (last 24 hours): Temp Pulse Resp BP Pulse Ox 98.5 F 101 H 20 125/78 99 07/10/18 15:00 07/10/18 15:00 07/10/18 15:00 07/10/18 17:38 07/10/18 15:00 Intake and Output: 07/10/18 07/11/18 18:59 06:59 Intake Total 520 Balance 520 - Medications Medications: Current Medications Acetaminophen (Tylenol 650 Mg Supp) 650 mg [place] Q6 PRN PRN Reason: Fever >100.4 F Albuterol/Ipratropium (Duoneb 3 Mg/0.5 Mg (3 Ml) Ud) 3 ml INH RQ6 [facility] Last Admin: 07/10/18 07:45 Dose: Not Given Diltiazem HCl (Cardizem) 30 mg PO QID [facility] Last Admin: 07/10/18 17:40 Dose: 30 mg Heparin Sodium (Porcine) (Heparin) 5,000 units SC Q8 [facility] Last Admin: 07/10/18 14:28 Dose: 5,000 units Insulin Glargine (Lantus) 25 unit SC DAILY [facility] Last Admin: 07/10/18 10:29 Dose: 25 u Insulin Human Regular (Novolin R) 0 unit SC Q6 [facility]; Protocol Last Admin: 07/10/18 17:40 Dose: 3 u Linezolid (Zyvox) 600 mg PO BID [facility]; Protocol Last Admin: 07/10/18 17:39 Dose: 600 mg Metoprolol Tartrate (Lopressor) 25 mg PO BID [facility] Last Admin: 07/10/18 17:38 Dose: 25 mg Neomycin/Polymyxin/Bacitracin (Neosporin Triple Antibiotic Oint) 1 gm TOP DAILY [facility] Last Admin: 07/10/18 10:29 Dose: 1 applic Nystatin (Nystop Topical Powder) 1 applic TOP BID [facility] Last Admin: 07/10/18 17:38 Dose: 1 applic Pantoprazole Sodium (Protonix Susp) 40 mg PO 0600 [facility] Last Admin: 07/10/18 05:52 Dose: 40 mg Rosuvastatin Calcium (Crestor) 10 mg PO HS [facility] Last Admin: 07/09/18 21:37 Dose: 10 mg - Labs Labs: 07/08/18 07:46 07/08/18 07:46 - Constitutional Appears: No Acute Distress, Chronically Ill - Head Exam Head Exam: NORMAL INSPECTION - Eye Exam Eye Exam: EOMI, PERRL - ENT Exam ENT Exam: Normal Oropharynx - Neck Exam Neck Exam: Normal Inspection - Respiratory Exam Respiratory Exam: Decreased Breath Sounds - Cardiovascular Exam Cardiovascular Exam: REGULAR RHYTHM, +S1, +S2 - GI/Abdominal Exam GI & Abdominal Exam: Soft, Normal Bowel Sounds (peg TUBE SITE DRESSING C/D/I.) - Extremities Exam Extremities Exam: absent: Calf Tenderness, Pedal Edema - Neurological Exam Neurological Exam: Awake, CN II-XII Intact - Psychiatric Exam Psychiatric exam: Normal Mood - Skin Skin Exam: Dry, Normal Color, Warm Assessment and Plan (1) UTI (urinary tract infection) Assessment & Plan: URINE CULTURE +VE VRE.(E. FAECIUM ) ON IV ZYVOX 600MG IV Q 12HRLY 07/02/18-DAY- --> PO ZYVOX X 7DAYS. CONTACT PRECAUTIONS FOR VRE. REPEAT UA/URINE CULTURE.07/09/18-p Status: Acute (2) Infection of gastrostomy site Assessment & Plan: ON IV ZYVOX --> po zyvox. IV infiltrated. WOUND CULTURE +VE ENTEROCOCCUS FAECALIS S-AMPICILLIN +VE CORYNEBACTERIUM SPECIES. F/U REPEAT WOUND CULTURES IN AM (PEG SITE )07/09/18 Status: Acute (3) Leukocytosis Status: Acute (4) Diabetes Status: Chronic (5) Hx of CABG Status: Acute
[2018-07-11] MEDS: (Novolin R) Insulin Human Regular 100 units/ml vial SC SCH ×5 (00:33→23:46)
[2018-07-11] MEDS: Albuterol-Ipratrop 3 mg / 0.5 (3 ml) UD INH SCH ×4 (02:27→19:45)
[2018-07-11] MEDS: Pantoprazole 40 mg Susp UD PO SCH (05:38)
[2018-07-11 07:14] LABS: BASO # 0.1 K/uL (0.0-0.2); BASO % 0.7 % (0.0-2.0); EOS # 0.1 K/uL (0.0-0.7); EOS % 0.8 % (0.0-4.0); HEMOGLOBIN 10.9 g/dL (11.0-16.0); LYMPH # 1.1 K/uL (1.0-4.3); LYMPH % 9.1 % (20.0-40.0); MEAN CELL VOLUME 95.7 fL (81.0-99.0); MEAN CORPUSCULAR HEMOGLOBIN 33.2 pg (27.0-31.0); MEAN CORPUSCULAR HGB CONC 34.7 g/dL (33.0-37.0); MEAN PLATELET VOLUME 7.2 fL (7.2-11.7); MONO # 0.4 K/uL (0.0-0.8); MONO % 3.1 % (0.0-10.0); NEUT # 10.9 K/uL (1.8-7.0); NEUT % 86.3 % (50.0-75.0); NRBC % 0.1 % (0.0-2.0); PLATELET COUNT 337 K/uL (130-400); RED CELL DISTRIBUTION WIDTH 15.4 % (11.5-14.5); WHITE BLOOD COUNT 12.7 K/uL (4.8-10.8)
[2018-07-11 07:51] LABS: BLOOD UREA NITROGEN 40 mg/dL (7-17); CALCIUM 10.7 mg/dl (8.6-10.4); GFR NON-AFRICAN AMERICAN > 60
[2018-07-11 08:33] LABS: ANISOCYTOSIS SLIGHT; LYMPHOCYTE 5 % (20-40); MONOCYTE 2 % (0-10); NEUTROPHIL 93 % (50-75); PLATELET ESTIMATE NORMAL (NORMAL); TOTAL CELLS COUNTED 100
[2018-07-11 08:34] LABS: MICROCYTOSIS SLIGHT
[2018-07-11] MEDS: (Lantus) Insulin Glargine, Recombinant SC SCH (09:47)
[2018-07-11] MEDS: Bacitracin/Neomycin/Polymyxin Oint(30GM) TOP SCH (09:47)
--- NOTE | 2018-07-11 11:13 | PN ---
DATE: 07/10/2018 SUBJECTIVE: The patient is now not in any distress. She is awake and responding, but nonverbalizing. She is not able to swallow any of the food, but she is being fed by PEG tube, tolerating. Right hand nails dystrophy noted. She is doing otherwise well clinically, no new changes noted. The patient is currently on antibiotic for VRE. We will continue the current management and we will follow the patient. Luis Manuel Patel MD
--- NOTE | 2018-07-11 11:34 | PN ---
DATE: 07/09/2018 PHYSICAL EXAMINATION: VITAL SIGNS: Temperature is 97.8, pulse 99, blood pressure 117/71, respirations 20, and saturation 95% on nasal cannula. CHEST: Good air entry. HEART: Regular heart sounds. ASSESSMENT AND PLAN: The patient is actually sitting up in the bedside chair, doing well at this time, on antibiotic, awaiting for antibiotic coverage for outpatient management. Luis Manuel Patel MD
--- NOTE | 2018-07-11 13:19 | PN ---
DATE: 07/11/2018 SUBJECTIVE: The patient is now feeling well, comfortable, not in any distress. PHYSICAL EXAMINATION: VITAL SIGNS: Today's temperature 98.4, pulse 101, respiration is 20, saturation 99% on nasal cannula. GENERAL: The patient is currently on IV antibiotic for suspected VRE infection. Clinically, the patient is stable otherwise, out of bed to chair right now, not in any distress. CHEST: Bilateral expiratory wheezing noted. HEART: Irregular heart sound. EXTREMITIES: Pedal edema 1+ noted. ASSESSMENT AND PLAN: The patient is currently on Zyvox 600 mg p.o. b.i.d. tolerating, also receiving inhalers, nebulizer, blood pressure is stable. The patient is clinically stable for possible discharge plan. Luis Manuel Patel MD
--- NOTE | 2018-07-11 14:19 | CP.PCM.PN ---
Subjective - Date & Time of Evaluation Date of Evaluation: 07/11/18 Time of Evaluation: 14:19 - Subjective Subjective: afebrile COMFORTABLE. ON PO ZYVOX. AWAITING CULTURES REPEAT . CONTINUE LOCAL WOUND CARE. 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 LOCAL PEG CARES PER WOUND CARE . Objective - Vital Signs/Intake and Output Vital Signs (last 24 hours): Temp Pulse Resp BP Pulse Ox 98.6 F 101 H 20 132/80 98 07/11/18 07:37 07/11/18 07:37 07/11/18 07:37 07/11/18 09:48 07/11/18 07:37 Intake and Output: 07/11/18 07/11/18 06:59 18:59 Intake Total 470 Balance 470 - Medications Medications: Current Medications Acetaminophen (Tylenol 650 Mg Supp) 650 mg [place] Q6 PRN PRN Reason: Fever >100.4 F Albuterol/Ipratropium (Duoneb 3 Mg/0.5 Mg (3 Ml) Ud) 3 ml INH RQ6 [facility] Last Admin: 07/11/18 13:30 Dose: Not Given Diltiazem HCl (Cardizem) 30 mg PO QID [facility] Last Admin: 07/11/18 13:19 Dose: 30 mg Heparin Sodium (Porcine) (Heparin) 5,000 units SC Q8 [facility] Last Admin: 07/11/18 13:19 Dose: 5,000 units Insulin Glargine (Lantus) 25 unit SC DAILY [facility] Last Admin: 07/11/18 09:47 Dose: 25 u Insulin Human Regular (Novolin R) 0 unit SC Q6 [facility]; Protocol Last Admin: 07/11/18 12:17 Dose: 6 u Linezolid (Zyvox) 600 mg PO BID [facility]; Protocol Last Admin: 07/11/18 09:47 Dose: 600 mg Metoprolol Tartrate (Lopressor) 25 mg PO BID [facility] Last Admin: 07/11/18 09:48 Dose: 25 mg Neomycin/Polymyxin/Bacitracin (Neosporin Triple Antibiotic Oint) 1 gm TOP DAILY [facility] Last Admin: 07/11/18 09:47 Dose: 1 applic Nystatin (Nystop Topical Powder) 1 applic TOP BID [facility] Last Admin: 07/11/18 09:46 Dose: 1 applic Pantoprazole Sodium (Protonix Susp) 40 mg PO 0600 [facility] Last Admin: 07/11/18 05:38 Dose: 40 mg Rosuvastatin Calcium (Crestor) 10 mg PO HS [facility] Last Admin: 07/10/18 21:19 Dose: 10 mg - Labs Labs: 07/11/18 07:03 07/11/18 07:03 - Constitutional Appears: No Acute Distress - Head Exam Head Exam: NORMAL INSPECTION - Eye Exam Eye Exam: EOMI, PERRL - ENT Exam ENT Exam: Mucous Membranes Moist, Normal Exam, Normal Oropharynx - Neck Exam Neck Exam: Normal Inspection - Respiratory Exam Respiratory Exam: Clear to Ausculation Bilateral - Cardiovascular Exam Cardiovascular Exam: Tachycardia, REGULAR RHYTHM, +S1, +S2 - GI/Abdominal Exam GI & Abdominal Exam: Soft, Normal Bowel Sounds. absent: Tenderness (PEG SITE SLIGHT ERYTHEMA AROUND STOMA/AND DRAINAGE +VE-EXIT SITE INFECTION) - Neurological Exam Neurological Exam: Awake, CN II-XII Intact - Psychiatric Exam Psychiatric exam: Normal Mood - Skin Skin Exam: Normal Color, Warm Assessment and Plan (1) UTI (urinary tract infection) Assessment & Plan: REPEAT UA/URINE CULTURE.07/09/18- -VE GROWTH . PT ON PO ZYVOX. Status: Acute (2) Infection of gastrostomy site Assessment & Plan: WOUND CULTURE +VE ENTEROCOCCUS FAECALIS S-AMPICILLIN +VE CORYNEBACTERIUM SPECIES. REPEAT WOUND CULTURES IN AM (PEG SITE )07/09/18 +VE GNR /GPC F/U CULTURES TO ADJUST ABX. Status: Acute (3) Leukocytosis Status: Acute (4) Diabetes Status: Chronic (5) Hx of CABG Status: Acute
[2018-07-12] MEDS: Albuterol-Ipratrop 3 mg / 0.5 (3 ml) UD INH SCH ×4 (02:35→19:30)
[2018-07-12] MEDS: (Novolin R) Insulin Human Regular 100 units/ml vial SC SCH ×4 (05:36→23:52)
[2018-07-12] MEDS: Pantoprazole 40 mg Susp UD PO SCH (05:37)
[2018-07-12 07:17] LABS: BASO # 0.1 K/uL (0.0-0.2); BASO % 1.3 % (0.0-2.0); EOS # 0.2 K/uL (0.0-0.7); EOS % 2.3 % (0.0-4.0); HEMOGLOBIN 10.5 g/dL (11.0-16.0); LYMPH % 21.1 % (20.0-40.0); MEAN CELL VOLUME 95.1 fL (81.0-99.0); MEAN CORPUSCULAR HEMOGLOBIN 33.3 pg (27.0-31.0); MEAN CORPUSCULAR HGB CONC 35.1 g/dL (33.0-37.0); MONO # 0.6 K/uL (0.0-0.8); MONO % 6.8 % (0.0-10.0); NEUT # 6.5 K/uL (1.8-7.0); NEUT % 68.5 % (50.0-75.0); NRBC % 0.1 % (0.0-2.0); RBC 3.14 Mil/uL (3.80-5.20); RED CELL DISTRIBUTION WIDTH 15.5 % (11.5-14.5); WHITE BLOOD COUNT 9.5 K/uL (4.8-10.8)
[2018-07-12 07:45] LABS: BLOOD UREA NITROGEN 53 mg/dL (7-17); CALCIUM 10.7 mg/dl (8.6-10.4); GFR NON-AFRICAN AMERICAN > 60
[2018-07-12] MEDS: (Lantus) Insulin Glargine, Recombinant SC SCH (10:58)
[2018-07-12] MEDS: Bacitracin/Neomycin/Polymyxin Oint(30GM) TOP SCH (11:00)
--- NOTE | 2018-07-12 12:26 | CP.PCM.PN ---
Subjective - Date & Time of Evaluation Date of Evaluation: 07/12/18 Time of Evaluation: 12:25 - Subjective Subjective: afebrile COMFORTABLE. ON PO ZYVOX. LABS REVIEWED. 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 PT HAS EXIT SIDE PEG INFECTION AND STOMA AND SURROUNDING SKIN HEALING. WILL PLACE PT ON PO LEVAQUIN 500MG POX 7DAYS LOCAL PEG CARES PER RADIOLOGICAL HEALTH SPECIALIST DIRECTIONS. F/U OPD CLOSELY BY PMD. CASE DISCUSSED WITH DR CHRIS/AND AGREES . Objective - Vital Signs/Intake and Output Vital Signs (last 24 hours): Temp Pulse Resp BP Pulse Ox 98.6 F 100 H 20 137/85 100 07/12/18 07:00 07/12/18 07:00 07/12/18 07:00 07/12/18 10:54 07/12/18 07:00 Intake and Output: 07/12/18 07/12/18 06:59 18:59 Intake Total 520 Balance 520 - Medications Medications: Current Medications Acetaminophen (Tylenol 650 Mg Supp) 650 mg [place] Q6 PRN PRN Reason: Fever >100.4 F Last Admin: 07/11/18 20:15 Dose: 650 mg Albuterol/Ipratropium (Duoneb 3 Mg/0.5 Mg (3 Ml) Ud) 3 ml INH RQ6 [facility] Last Admin: 07/12/18 09:04 Dose: 3 ml Diltiazem HCl (Cardizem) 30 mg PO QID [facility] Last Admin: 07/12/18 10:54 Dose: 30 mg Heparin Sodium (Porcine) (Heparin) 5,000 units SC Q8 [facility] Last Admin: 07/12/18 05:37 Dose: 5,000 units Insulin Glargine (Lantus) 25 unit SC DAILY [facility] Last Admin: 07/12/18 10:58 Dose: 25 u Insulin Human Regular (Novolin R) 0 unit SC Q6 [facility]; Protocol Last Admin: 07/12/18 05:36 Dose: 3 u Linezolid (Zyvox) 600 mg PO BID [facility]; Protocol Last Admin: 07/12/18 10:55 Dose: 600 mg Metoprolol Tartrate (Lopressor) 25 mg PO BID [facility] Last Admin: 07/12/18 10:54 Dose: 25 mg Neomycin/Polymyxin/Bacitracin (Neosporin Triple Antibiotic Oint) 1 gm TOP DAILY [facility] Last Admin: 07/12/18 11:00 Dose: 1 applic Nystatin (Nystop Topical Powder) 1 applic TOP BID [facility] Last Admin: 07/12/18 11:00 Dose: 1 applic Pantoprazole Sodium (Protonix Susp) 40 mg PO 0600 [facility] Last Admin: 07/12/18 05:37 Dose: 40 mg Rosuvastatin Calcium (Crestor) 10 mg PO HS [facility] Last Admin: 07/11/18 21:34 Dose: 10 mg - Labs Labs: 07/12/18 07:06 07/12/18 07:06 - Constitutional Appears: No Acute Distress, Chronically Ill - Head Exam Head Exam: NORMAL INSPECTION - Eye Exam Eye Exam: Normal appearance - ENT Exam ENT Exam: Normal Oropharynx - Neck Exam Neck Exam: Normal Inspection - Respiratory Exam Respiratory Exam: Clear to Ausculation Bilateral, NORMAL BREATHING PATTERN - Cardiovascular Exam Cardiovascular Exam: REGULAR RHYTHM, +S1, +S2 - GI/Abdominal Exam GI & Abdominal Exam: Soft, Normal Bowel Sounds (PEG SITE LESS ERYTHEMATOUS. SKIN SURRONDING GRANULATING. DRY DRESSING IN PLACE.) - Neurological Exam Neurological Exam: Awake, CN II-XII Intact - Psychiatric Exam Psychiatric exam: Normal Mood - Skin Skin Exam: Normal Color, Warm Assessment and Plan (1) UTI (urinary tract infection) Assessment & Plan: REPEAT UA/URINE CULTURE.07/09/18- -VE GROWTH. DC PO ZYVOX. Status: Acute (2) Infection of gastrostomy site Assessment & Plan: IMPROVING . PEG EXIT SIDE INFECTION. DC PO ZYVOX ON DC. PO LEVAQUIN 500MG PO OD DAILY X 7DAYS. LWC PER RADIOLOGICAL HEALTH SPECIALIST. Status: Acute (3) Leukocytosis Status: Acute (4) Diabetes Status: Chronic (5) Hx of CABG Status: Acute
[2018-07-13] MEDS: Albuterol-Ipratrop 3 mg / 0.5 (3 ml) UD INH SCH ×4 (02:11→19:30)
--- NOTE | 2018-07-13 02:46 | PN ---
DATE: 07/12/2018 I spoke to the patient's daughter today, and I explained to the patient's daughter about the overall prognosis. The patient is currently isolated in the room no. 367 for possible VRE infection, currently receiving Zyvox and at this time doing well. I spoke to infectious disease specialist, Dr. Cordova. At this time, the patient has multiple bacterial infections from the wound infection as well as the urinary tract infection. The patient has VRE in the urine as well as Enterobacter in the wound and also Klebsiella, which is an ESBL positive. Given these multiple organisms, the patient probably will benefit taking oral quinolones as an outpatient, and possibly we can plan for discharge in the next 1 or 2 days. I spoke to the patient's daughter about that. As the patient has no time in rehab, she has no other options about the discharge. We will discuss about this with social group worker and possible discharge plan. Luis Manuel Patel MD
[2018-07-13] MEDS: Pantoprazole 40 mg Susp UD PO SCH (05:41)
[2018-07-13] MEDS: (Novolin R) Insulin Human Regular 100 units/ml vial SC SCH ×3 (05:41→17:57)
[2018-07-13] MEDS: (Lantus) Insulin Glargine, Recombinant SC SCH (10:52)
[2018-07-13] MEDS: Bacitracin/Neomycin/Polymyxin Oint(30GM) TOP SCH (10:54)
--- NOTE | 2018-07-13 14:51 | CP.PCM.PN ---
Subjective - Date & Time of Evaluation Date of Evaluation: 07/13/18 Time of Evaluation: 14:51 - Subjective Subjective: afebrile COMFORTABLE BUT WEAK ON PO ZYVOX IMPROVING SLOWLY Objective - Vital Signs/Intake and Output Vital Signs (last 24 hours): Temp Pulse Resp BP Pulse Ox 98.3 F 100 H 20 131/79 97 07/13/18 07:00 07/13/18 07:00 07/13/18 07:00 07/13/18 10:52 07/13/18 07:00 Intake and Output: 07/13/18 07/13/18 06:59 18:59 Intake Total 520 Balance 520 - Medications Medications: Current Medications Acetaminophen (Tylenol 650 Mg Supp) 650 mg [place] Q6 PRN PRN Reason: Fever >100.4 F Last Admin: 07/11/18 20:15 Dose: 650 mg Albuterol/Ipratropium (Duoneb 3 Mg/0.5 Mg (3 Ml) Ud) 3 ml INH RQ6 [facility] Last Admin: 07/13/18 13:11 Dose: 3 ml Diltiazem HCl (Cardizem) 30 mg PO QID [facility] Last Admin: 07/13/18 14:24 Dose: 30 mg Insulin Glargine (Lantus) 25 unit SC DAILY [facility] Last Admin: 07/13/18 10:52 Dose: 25 u Insulin Human Regular (Novolin R) 0 unit SC Q6 [facility]; Protocol Last Admin: 07/13/18 11:21 Dose: 4 u Linezolid (Zyvox) 600 mg PO BID [facility]; Protocol Last Admin: 07/13/18 10:53 Dose: 600 mg Metoprolol Tartrate (Lopressor) 25 mg PO BID [facility] Last Admin: 07/13/18 10:52 Dose: 25 mg Neomycin/Polymyxin/Bacitracin (Neosporin Triple Antibiotic Oint) 1 gm TOP DAILY [facility] Last Admin: 07/13/18 10:54 Dose: 1 applic Nystatin (Nystop Topical Powder) 1 applic TOP BID [facility] Last Admin: 07/13/18 10:54 Dose: 1 applic Pantoprazole Sodium (Protonix Susp) 40 mg PO 0600 [facility] Last Admin: 07/13/18 05:41 Dose: 40 mg Rosuvastatin Calcium (Crestor) 10 mg PO HS [facility] Last Admin: 07/12/18 21:20 Dose: 10 mg - Labs Labs: 07/12/18 07:06 07/12/18 07:06 - Constitutional Appears: No Acute Distress, Cachectic, Chronically Ill - Head Exam Head Exam: NORMOCEPHALIC - Eye Exam Eye Exam: EOMI, PERRL - ENT Exam ENT Exam: Normal Oropharynx - Neck Exam Neck Exam: Normal Inspection - Respiratory Exam Respiratory Exam: Decreased Breath Sounds - Cardiovascular Exam Cardiovascular Exam: REGULAR RHYTHM, +S1, +S2 - GI/Abdominal Exam GI & Abdominal Exam: Soft, Normal Bowel Sounds (PEG SITE -GRANULATING, SAMANTHA ERYTHEMA.) - Extremities Exam Extremities Exam: Normal Capillary Refill, Pedal Edema. absent: Calf Tenderness - Neurological Exam Neurological Exam: Awake - Psychiatric Exam Psychiatric exam: Normal Affect, Normal Mood - Skin Skin Exam: Normal Color, Warm Assessment and Plan (1) UTI (urinary tract infection) Status: Acute (2) Infection of gastrostomy site Status: Acute (3) Leukocytosis Status: Acute (4) Diabetes Status: Chronic (5) Hx of CABG Status: Acute - Assessment and Plan (Free Text) Plan: LABS REVIEWED. 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 PT HAS EXIT SIDE PEG INFECTION AND STOMA AND SURROUNDING SKIN HEALING. WILL PLACE PT ON PO LEVAQUIN 500MG PO X 7DAYS LOCAL PEG CARES PER HEATING PLANT SUPERINTENDENT DIRECTIONS. F/U OPD CLOSELY BY PMD. CASE DISCUSSED WITH DR CHRIS.
[2018-07-14] MEDS: (Novolin R) Insulin Human Regular 100 units/ml vial SC SCH ×4 (00:43→17:47)
[2018-07-14] MEDS: Albuterol-Ipratrop 3 mg / 0.5 (3 ml) UD INH SCH ×4 (01:33→19:44)
[2018-07-14] MEDS: Pantoprazole 40 mg Susp UD PO SCH (05:39)
[2018-07-14] MEDS: (Lantus) Insulin Glargine, Recombinant SC SCH (09:21)
[2018-07-14] MEDS: Bacitracin/Neomycin/Polymyxin Oint(30GM) TOP SCH (09:23)
[2018-07-15] MEDS: (Novolin R) Insulin Human Regular 100 units/ml vial SC SCH ×4 (00:57→17:33)
[2018-07-15] MEDS: Albuterol-Ipratrop 3 mg / 0.5 (3 ml) UD INH SCH ×4 (01:41→19:44)
[2018-07-15] MEDS: Pantoprazole 40 mg Susp UD PO SCH (06:24)
[2018-07-15 07:16] LABS: BASO # 0.1 K/uL (0.0-0.2); EOS % 0.3 % (0.0-4.0); HEMOGLOBIN 10.8 g/dL (11.0-16.0); LYMPH # 1.5 K/uL (1.0-4.3); MEAN CORPUSCULAR HEMOGLOBIN 32.3 pg (27.0-31.0); MEAN CORPUSCULAR HGB CONC 33.2 g/dL (33.0-37.0); MEAN PLATELET VOLUME 6.8 fL (7.2-11.7); MONO # 1.5 K/uL (0.0-0.8); NEUT # 9.2 K/uL (1.8-7.0); NEUT % 74.7 % (50.0-75.0); RBC 3.34 Mil/uL (3.80-5.20); RED CELL DISTRIBUTION WIDTH 15.5 % (11.5-14.5); WHITE BLOOD COUNT 12.3 K/uL (4.8-10.8)
[2018-07-15 07:28] LABS: MEAN CELL VOLUME 97.1 fL (81.0-99.0)
[2018-07-15 07:37] LABS: ALB/GLOB RATIO 1.4 (1.0-2.1); ALBUMIN 4.7 g/dL (3.5-5.0); ALT/SGPT 17 U/L (9-52); AST/SGOT 26 U/L (14-36); BLOOD UREA NITROGEN 69 mg/dL (7-17); GFR NON-AFRICAN AMERICAN 53
[2018-07-15] MEDS: (Lantus) Insulin Glargine, Recombinant SC SCH (09:14)
[2018-07-15] MEDS: Bacitracin/Neomycin/Polymyxin Oint(30GM) TOP SCH (09:27)
--- NOTE | 2018-07-15 10:36 | RAD ---
Date of service: 07/15/2018 HISTORY: pna COMPARISON: 07/03/2018 FINDINGS: LUNGS: No active pulmonary disease. PLEURA: No significant pleural effusion identified, no pneumothorax apparent. CARDIOVASCULAR: Minimal aortic calcification Normal cardiac size. No pulmonary vascular congestion. OSSEOUS STRUCTURES: Sternal wires VISUALIZED UPPER ABDOMEN: Normal. OTHER FINDINGS: Single lead pacemaker IMPRESSION: No active disease.
--- NOTE | 2018-07-15 12:16 | CP.PCM.PN ---
Subjective - Date & Time of Evaluation Date of Evaluation: 07/15/18 Time of Evaluation: 12:16 - Subjective Subjective: PT SPIKING [id number] NO IV ACCESS. WEAK/LETHARGIC CASE DISCUSSED WITH PARIMUTUEL CLERK MS DRAPER TO GET A MIDLINE ACCESS FOR IV ABX Objective - Vital Signs/Intake and Output Vital Signs (last 24 hours): Temp Pulse Resp BP Pulse Ox 99.9 F H 125 H 20 132/88 97 07/15/18 08:58 07/15/18 07:29 07/15/18 07:29 07/15/18 09:20 07/15/18 07:29 Intake and Output: 07/15/18 07/15/18 06:59 18:59 Intake Total 1070 Balance 1070 - Medications Medications: Current Medications Acetaminophen (Tylenol 650 Mg Supp) 650 mg [place] Q6 PRN PRN Reason: Fever >100.4 F Last Admin: 07/15/18 07:58 Dose: 650 mg Albuterol/Ipratropium (Duoneb 3 Mg/0.5 Mg (3 Ml) Ud) 3 ml INH RQ6 [facility] Last Admin: 07/15/18 08:35 Dose: 3 ml Diltiazem HCl (Cardizem) 30 mg PO QID [facility] Last Admin: 07/15/18 09:18 Dose: 30 mg Insulin Glargine (Lantus) 25 unit SC DAILY [facility] Last Admin: 07/15/18 09:14 Dose: 25 u Insulin Human Regular (Novolin R) 0 unit SC Q6 [facility]; Protocol Last Admin: 07/15/18 11:56 Dose: 6 u Metoprolol Tartrate (Lopressor) 25 mg PO BID [facility] Last Admin: 07/15/18 09:20 Dose: 25 mg Neomycin/Polymyxin/Bacitracin (Neosporin Triple Antibiotic Oint) 1 gm TOP DAILY [facility] Last Admin: 07/15/18 09:27 Dose: 1 applic Nystatin (Nystop Topical Powder) 1 applic TOP BID [facility] Last Admin: 07/15/18 09:28 Dose: 1 applic Pantoprazole Sodium (Protonix Susp) 40 mg PO 0600 [facility] Last Admin: 07/15/18 06:24 Dose: 40 mg Rosuvastatin Calcium (Crestor) 10 mg PO HS [facility] Last Admin: 07/14/18 21:35 Dose: 10 mg - Labs Labs: 07/15/18 07:08 12/17/18 07:08 - Constitutional Appears: No Acute Distress, Chronically Ill - Head Exam Head Exam: NORMAL INSPECTION - Eye Exam Eye Exam: PERRL - ENT Exam ENT Exam: Mucous Membranes Moist - Respiratory Exam Respiratory Exam: Decreased Breath Sounds - Cardiovascular Exam Cardiovascular Exam: REGULAR RHYTHM, +S1, +S2 - GI/Abdominal Exam GI & Abdominal Exam: Soft, Normal Bowel Sounds (PEG SITE HEALING SLOWLY, LESS ERYTHEMA) - Neurological Exam Neurological Exam: Awake, CN II-XII Intact - Psychiatric Exam Psychiatric exam: Flat Affect (NON VERBAL AT TIMES/OR MUMBLES) - Skin Skin Exam: Normal Color, Warm Assessment and Plan (1) UTI (urinary tract infection) Status: Acute (2) Infection of gastrostomy site Status: Acute (3) Leukocytosis Status: Acute (4) Diabetes Status: Chronic (5) Hx of CABG Status: Acute - Assessment and Plan (Free Text) Plan: PLAN ' IV ACCESS, PANCULTURE IV ABX . LWC PROGNOSIS GUARDED. CONTACT PRECAUTIONS.
--- NOTE | 2018-07-15 15:05 | RAD ---
Date of service: 07/15/2018 PROCEDURE: CHEST RADIOGRAPH, 1 VIEW HISTORY: FEBRILE COMPARISON: 07/15/2018 at 8:20 a.m. FINDINGS: LUNGS: Clear. PLEURA: No pneumothorax or pleural fluid seen. CARDIOVASCULAR: There is atherosclerotic calcification thoracic aortic arch. Heart is normal in size. There is no congestive change. A permanent pacemaker is noted. Normal. OSSEOUS STRUCTURES: No significant abnormalities. VISUALIZED UPPER ABDOMEN: Surgical clips noted in left upper quadrant of abdomen. OTHER FINDINGS: None. IMPRESSION: No active disease.
[2018-07-15] MEDS: Moxifloxacin IV 400mg/250ml NS 400 MG/250 ML BAG IVPB SCH (15:32)
[2018-07-16] MEDS: (Novolin R) Insulin Human Regular 100 units/ml vial SC SCH ×5 (01:00→23:54)
[2018-07-16] MEDS: Albuterol-Ipratrop 3 mg / 0.5 (3 ml) UD INH SCH ×4 (01:15→19:24)
[2018-07-16] MEDS: Pantoprazole 40 mg Susp UD PO SCH (05:11)
[2018-07-16] MEDS: Bacitracin/Neomycin/Polymyxin Oint(30GM) TOP SCH (09:31)
[2018-07-16] MEDS: (Lantus) Insulin Glargine, Recombinant SC SCH (09:32)
[2018-07-16] MEDS: Moxifloxacin IV 400mg/250ml NS 400 MG/250 ML BAG IVPB SCH (13:05)
--- NOTE | 2018-07-16 23:00 | CP.PCM.PN ---
Subjective - Date & Time of Evaluation Date of Evaluation: 07/16/18 Time of Evaluation: 23:00 - Subjective Subjective: LOW GRADE TEMP 100.3 MORE AWAKE S/P RT MIDLINE CATHETER PLACEMENT 07/15/18. LABS REVIEWED; URINE CULTURE +VE GNR. BLOOD CULTURE 07/15/18 -VE X24HRS. PLAN . ADD IV GENTAMICIN 80MG IVPB Q 24HRLY X 3 DAYS.07/16/18 CONTINUE IV MOXIFLOXCIN 400MG OD DAILY 07/15/18 ASK MICRO TO CHECK FOR MICS FOR GNR FOR COLISTIN,AMIKACIN, AVYCAZ, AZTRENAM Objective - Vital Signs/Intake and Output Vital Signs (last 24 hours): Temp Pulse Resp BP Pulse Ox 100.3 F H 119 H 20 117/70 99 07/16/18 15:00 07/16/18 15:00 07/16/18 15:00 07/16/18 18:30 07/16/18 15:00 Intake and Output: 07/16/18 07/17/18 18:59 06:59 Intake Total 570 200 Balance 570 200 - Medications Medications: Current Medications Acetaminophen (Tylenol 650 Mg Supp) 650 mg [place] Q6 PRN PRN Reason: Fever >100.4 F Last Admin: 07/15/18 07:58 Dose: 650 mg Albuterol/Ipratropium (Duoneb 3 Mg/0.5 Mg (3 Ml) Ud) 3 ml INH RQ6 [facility] Last Admin: 07/16/18 19:24 Dose: 3 ml Diltiazem HCl (Cardizem) 30 mg PO QID [facility] Last Admin: 07/16/18 21:28 Dose: 30 mg Moxifloxacin HCl (Avelox Iv 400mg/250ml Ns) 400 mg in 250 mls @ 167 mls/hr IVPB Q24H [facility]; Protocol Last Admin: 07/16/18 13:05 Dose: 167 mls/hr Gentamicin Sulfate 80 mg/ (Sodium Chloride) 102 mls @ 100 mls/hr IVPB Q24H [facility]; Protocol Stop: 07/19/18 15:01 Last Admin: 07/16/18 15:30 Dose: 100 mls/hr Insulin Glargine (Lantus) 25 unit SC DAILY [facility] Last Admin: 07/16/18 09:32 Dose: 25 u Insulin Human Regular (Novolin R) 0 unit SC Q6 [facility]; Protocol Last Admin: 07/16/18 18:31 Dose: 6 units Metoprolol Tartrate (Lopressor) 25 mg PO BID [facility] Last Admin: 07/16/18 18:30 Dose: 25 mg Neomycin/Polymyxin/Bacitracin (Neosporin Triple Antibiotic Oint) 1 gm TOP DAILY [facility] Last Admin: 07/16/18 09:31 Dose: 1 applic Nystatin (Nystop Topical Powder) 1 applic TOP BID [facility] Last Admin: 07/16/18 18:31 Dose: 1 applic Pantoprazole Sodium (Protonix Susp) 40 mg PO 0600 [facility] Last Admin: 07/16/18 05:11 Dose: 40 mg Rosuvastatin Calcium (Crestor) 10 mg PO HS [facility] Last Admin: 07/16/18 21:28 Dose: 10 mg - Labs Labs: 07/15/18 07:08 07/15/18 07:08 - Constitutional Appears: No Acute Distress, Chronically Ill - Head Exam Head Exam: NORMAL INSPECTION, NORMOCEPHALIC - Eye Exam Eye Exam: PERRL - ENT Exam ENT Exam: Normal Oropharynx - Respiratory Exam Respiratory Exam: Decreased Breath Sounds - Cardiovascular Exam Cardiovascular Exam: Tachycardia, REGULAR RHYTHM, +S1, +S2 - GI/Abdominal Exam GI & Abdominal Exam: Soft, Normal Bowel Sounds (PEG SITE LITTLE DRAINAGE /ERYTHEMA) - Extremities Exam Extremities Exam: Normal Capillary Refill, Pedal Edema. absent: Calf Tenderness - Neurological Exam Neurological Exam: Awake, CN II-XII Intact - Psychiatric Exam Psychiatric exam: Flat Affect - Skin Skin Exam: Normal Color, Warm Assessment and Plan (1) UTI (urinary tract infection) Status: Acute (2) Infection of gastrostomy site Status: Acute (3) Leukocytosis Status: Acute (4) Diabetes Status: Chronic (5) Hx of CABG Status: Acute
[2018-07-17] MEDS: Albuterol-Ipratrop 3 mg / 0.5 (3 ml) UD INH SCH ×4 (02:00→19:17)
[2018-07-17] MEDS: Pantoprazole 40 mg Susp UD PO SCH (05:41)
[2018-07-17] MEDS: (Novolin R) Insulin Human Regular 100 units/ml vial SC SCH ×3 (05:41→17:45)
[2018-07-17] MEDS: Bacitracin/Neomycin/Polymyxin Oint(30GM) TOP SCH (09:40)
[2018-07-17] MEDS: (Lantus) Insulin Glargine, Recombinant SC SCH (09:41)
[2018-07-17] MEDS: Moxifloxacin IV 400mg/250ml NS 400 MG/250 ML BAG IVPB SCH (12:14)
--- NOTE | 2018-07-17 14:39 | CP.PCM.PN ---
Subjective - Date & Time of Evaluation Date of Evaluation: 07/17/18 Time of Evaluation: 14:39 - Subjective Subjective: LOW GRADE TEMP 100.7, BP 122/76 MORE AWAKE , COMFORTABLE NON VERBAL S/P RT MIDLINE CATHETER PLACEMENT 07/15/18. LABS REVIEWED; URINE CULTURE +VE kLEBSIELLA PNEUMONIAE +VE ESBL S-GENT,AMIKACIN,MERREM BLOOD CULTURE 07/15/18 -VE X TO DATE. CXR 07/15/18 NAD. Objective - Vital Signs/Intake and Output Vital Signs (last 24 hours): Temp Pulse Resp BP Pulse Ox 99.8 F H 100 H 18 149/83 98 07/17/18 09:00 07/17/18 09:00 07/17/18 09:00 07/17/18 09:42 07/17/18 09:00 Intake and Output: 07/17/18 07/17/18 06:59 18:59 Intake Total 720 870 Output Total 0 1 Balance 720 869 - Medications Medications: Current Medications Acetaminophen (Tylenol 650 Mg Supp) 650 mg [place] Q6 PRN PRN Reason: Fever >100.4 F Last Admin: 07/15/18 07:58 Dose: 650 mg Albuterol/Ipratropium (Duoneb 3 Mg/0.5 Mg (3 Ml) Ud) 3 ml INH RQ6 [facility] Last Admin: 07/17/18 13:38 Dose: 3 ml Diltiazem HCl (Cardizem) 30 mg PO QID [facility] Last Admin: 07/17/18 13:45 Dose: 30 mg Moxifloxacin HCl (Avelox Iv 400mg/250ml Ns) 400 mg in 250 mls @ 167 mls/hr IVPB Q24H [facility]; Protocol Last Admin: 07/17/18 12:14 Dose: 167 mls/hr Gentamicin Sulfate 80 mg/ (Sodium Chloride) 102 mls @ 100 mls/hr IVPB Q24H [facility]; Protocol Stop: 07/19/18 15:01 Last Admin: 07/17/18 14:06 Dose: 100 mls/hr Insulin Glargine (Lantus) 25 unit SC DAILY [facility] Last Admin: 07/17/18 09:41 Dose: 25 u Insulin Human Regular (Novolin R) 0 unit SC Q6 [facility]; Protocol Last Admin: 07/17/18 11:39 Dose: 4 units Metoprolol Tartrate (Lopressor) [address] [facility] Last Admin: 07/17/18 09:42 Dose: 25 mg Neomycin/Polymyxin/Bacitracin (Neosporin Triple Antibiotic Oint) [address] [facility] Last Admin: 07/17/18 09:40 Dose: 1 applic Nystatin (Nystop Topical Powder) [address] [facility] Last Admin: 07/17/18 09:41 Dose: 1 applic Pantoprazole Sodium (Protonix Susp) [address] [facility] Last Admin: 07/17/18 05:41 Dose: 40 mg Rosuvastatin Calcium (Crestor) [address] [facility] Last Admin: 07/16/18 21:28 Dose: 10 mg - Labs Labs: 07/15/18 07:08 07/15/18 07:08 - Constitutional Appears: No Acute Distress, Chronically Ill - Head Exam Head Exam: NORMAL INSPECTION - Eye Exam Eye Exam: EOMI, PERRL - ENT Exam ENT Exam: Mucous Membranes Dry, Normal Oropharynx - Neck Exam Neck Exam: Normal Inspection - Respiratory Exam Respiratory Exam: Decreased Breath Sounds - Cardiovascular Exam Cardiovascular Exam: REGULAR RHYTHM, +S1, +S2 - GI/Abdominal Exam GI & Abdominal Exam: Soft, Normal Bowel Sounds (PEG SITE IMPROVING SLOWLY) - Extremities Exam Extremities Exam: absent: Calf Tenderness, Pedal Edema - Neurological Exam Neurological Exam: Awake - Psychiatric Exam Psychiatric exam: Flat Affect - Skin Skin Exam: Normal Color, Warm Assessment and Plan (1) UTI (urinary tract infection) Status: Acute (2) Infection of gastrostomy site Status: Acute (3) Leukocytosis Status: Acute (4) Diabetes Status: Chronic (5) Hx of CABG Status: Acute - Assessment and Plan (Free Text) Plan: PLAN . ON IV GENTAMICIN 80MG IVPB Q 24HRLY X 3 DAYS.07/16/18 CONTINUE IV MOXIFLOXCIN 400MG OD DAILY 07/15/18 ASK MICRO TO CHECK FOR MICS FOR GNR FOR COLISTIN,AMIKACIN, AVYCAZ, AZTRENAM. LOCAL WOUND CARE PEG EXIT SITE.
--- NOTE | 2018-07-17 22:33 | CP.PCM.PN ---
Subjective - Date & Time of Evaluation Date of Evaluation: 07/17/18 Time of Evaluation: 22:32 - Subjective Subjective: Patient is currently comfortable. Nonverbal Tolerating PEG feeding. No chest pain. Not in any distress. On examination: Vital signs stable. Chest bilateral good air entry minimal expiratory wheezing noted Abdomen nontender. Minimal discharge noted around the PEG tube noted Labs reviewed Urine culture showing evidence of Klebsiella, currently on Avelox, gentamicin. Seen by infectious disease Assessment: 87-year-old female admitted to the hospital with recurrent pneumonia. Aspiration pneumonitis. Recurrent urinary tract infection. Overall prognosis is very poor. If infection cleared by the ID possible discharge plan home will follow the patient Objective - Vital Signs/Intake and Output Vital Signs (last 24 hours): Temp Pulse Resp BP Pulse Ox 100.7 F H 120 H 20 122/76 95 07/17/18 15:13 07/17/18 15:13 07/17/18 15:13 07/17/18 17:47 07/17/18 15:13 Intake and Output: 07/17/18 07/18/18 18:59 06:59 Intake Total 870 Output Total 1 Balance 869 - Medications Medications: Current Medications Acetaminophen (Tylenol 650 Mg Supp) 650 mg W[place] Q6 PRN PRN Reason: Fever >100.4 F Last Admin: 07/15/18 07:58 Dose: 650 mg Albuterol/Ipratropium (Duoneb 3 Mg/0.5 Mg (3 Ml) Ud) 3 ml INH RQ6 [facility] Last Admin: 07/17/18 19:17 Dose: 3 ml Diltiazem HCl (Cardizem) 30 mg PO QID [facility] Last Admin: 07/17/18 21:59 Dose: 30 mg Moxifloxacin HCl (Avelox Iv 400mg/250ml Ns) 400 mg in 250 mls @ 167 mls/hr IVPB Q24H [facility]; Protocol Last Admin: 07/17/18 12:14 Dose: 167 mls/hr Gentamicin Sulfate 80 mg/ (Sodium Chloride) 102 mls @ 100 mls/hr IVPB Q24H [facility]; Protocol Stop: 07/19/18 15:01 Last Admin: 07/17/18 14:06 Dose: 100 mls/hr Insulin Glargine (Lantus) 25 unit SC DAILY [facility] Last Admin: 12/19/18 09:41 Dose: 25 u Insulin Human Regular (Novolin R) 0 unit SC Q6 [facility]; Protocol Last Admin: 07/17/18 17:45 Dose: 3 units Metoprolol Tartrate (Lopressor) 25 mg PO BID [facility] Last Admin: 07/17/18 17:47 Dose: 25 mg Neomycin/Polymyxin/Bacitracin (Neosporin Triple Antibiotic Oint) 1 gm TOP DAILY [facility] Last Admin: 07/17/18 09:40 Dose: 1 applic Nystatin (Nystop Topical Powder) 1 applic TOP BID [facility] Last Admin: 07/17/18 17:47 Dose: 1 applic Pantoprazole Sodium (Protonix Susp) 40 mg PO 0600 [facility] Last Admin: 07/17/18 05:41 Dose: 40 mg Rosuvastatin Calcium (Crestor) 10 mg PO HS [facility] Last Admin: 07/17/18 21:59 Dose: 10 mg - Labs Labs: 07/15/18 07:08 07/15/18 07:08
[2018-07-18] MEDS: (Novolin R) Insulin Human Regular 100 units/ml vial SC SCH ×6 (00:29→18:00)
[2018-07-18] MEDS: Albuterol-Ipratrop 3 mg / 0.5 (3 ml) UD INH SCH ×4 (01:32→20:59)
[2018-07-18] MEDS: Pantoprazole 40 mg Susp UD PO SCH (05:44)
[2018-07-18 08:11] LABS: BASO # 0.1 K/uL (0.0-0.2); BASO % 0.4 % (0.0-2.0); EOS # 0.4 K/uL (0.0-0.7); EOS % 2.1 % (0.0-4.0); HEMOGLOBIN 10.8 g/dL (11.0-16.0); LYMPH # 1.9 K/uL (1.0-4.3); LYMPH % 10.5 % (20.0-40.0); MEAN CORPUSCULAR HEMOGLOBIN 31.8 pg (27.0-31.0); MEAN CORPUSCULAR HGB CONC 32.1 g/dL (33.0-37.0); MEAN PLATELET VOLUME 7.6 fL (7.2-11.7); MONO # 2.7 K/uL (0.0-0.8); MONO % 14.4 % (0.0-10.0); NEUT # 13.4 K/uL (1.8-7.0); NEUT % 72.6 % (50.0-75.0); NRBC % 0.2 % (0.0-2.0); RBC 3.39 Mil/uL (3.80-5.20); RED CELL DISTRIBUTION WIDTH 15.9 % (11.5-14.5)
[2018-07-18 08:18] LABS: MEAN CELL VOLUME 99.2 fL (81.0-99.0); WHITE BLOOD COUNT 18.5 K/uL (4.8-10.8)
[2018-07-18 08:34] LABS: ALB/GLOB RATIO 1.2 (1.0-2.1); ALBUMIN 4.3 g/dL (3.5-5.0); CALCIUM 10.7 mg/dl (8.6-10.4)
[2018-07-18] MEDS: (Lantus) Insulin Glargine, Recombinant SC SCH ×2 (08:57→09:18)
[2018-07-18] MEDS: Bacitracin/Neomycin/Polymyxin Oint(30GM) TOP SCH (09:08)
[2018-07-18] MEDS ORDERED: Sodium Chloride 0.9% 500 ML IV ONE (09:48)
[2018-07-18 10:00] LABS: VENOUS BLOOD GAS BASE EXCESS 8.1 mmol/L (0.0-2.0); VENOUS BLOOD GAS PCO2 48 mmHg (40-60); VENOUS BLOOD GAS PO2 43 mm/Hg (30-55); VENOUS BLOOD PH 7.45 (7.32-7.43)
--- NOTE | 2018-07-18 10:08 | PCM.RRT ---
BSS SOLUTION ARCHITECT Nurses Assessment - Situation Date: 07/18/18 Time BSS SOLUTION ARCHITECT was called: 09:40 BSS SOLUTION ARCHITECT Responder Arrival Time:: 09:41 BSS SOLUTION ARCHITECT Location:: 3T Med/Oncology BSS SOLUTION ARCHITECT Reason for Call: Tachycardia, Looks Sicker BSS SOLUTION ARCHITECT Called By: RN - IV IV Inserted during BSS SOLUTION ARCHITECT?: No New IV Insertion Tolerance: Good - Respiratory BSS SOLUTION ARCHITECT Delivery Method: Nasal Cannula @L/min (2L) - Ventilator Settings Ventilator Respiratory Rate Settin Ventilator Tidal Volume Settin - Vital Signs Vital Signs: T: 102F HR:140 BP: 118/68 RR: 22 O2sat%: 97% 2L NC I.Reason for BSS SOLUTION ARCHITECT - A) Acute Change in Patient: (Select all that apply): Staff member or family is worried about patient - Neurological Status (Select all that apply): Responsive, Lethargic, Weakness. absent: Verbal, Aggressive - Respiratory Oxygen Delivery Method: Nasal Cannula @L/min (2L) - Constitutional Appears: Cachectic, Chronically Ill - Head Head Exam: ATRAUMATIC, NORMOCEPHALIC - Eyes Eye Exam: EOMI, Normal appearance - Respiratory Exam Respiratory Exam: NORMAL BREATHING PATTERN - Cardiovascular Exam Cardiovascular Exam: Tachycardia, +S1, +S2 - GI/Abdominal Exam GI & Abdominal Exam: Soft - Neurological Exam Neurological Exam: Awake Plan - Assessment of Findings&Treatment Plan Code sepsis note Code sepsis called at 09:40 am for Room 367A. As per nurse, patient febrile at 102 temperature, HR 140, rest of initial vitals as follow: bp 118/68, O2 97%, RR 22. Patient admitted for recurrent pneumonia, Aspiration pneumonitis, Recurrent urinary tract infection. Patient observed to be lethargic, as per nurse, patient looking below her baseline interaction. Patient is responsive and awake, but does not answer to questions. Patient appears dry. Labs today show hypernatremia at 156. NS Bolus given. Tylenol x 1 dose and PRN dose ordered. Venous blood gas, Blood and urine cultures, Procalcitonin, Sole panel, CMP ordered. Lactate 3.2. Portable chest xray ordered, will follow official results. Water flush of NGT changed to 200ml. Aspiration precautions. Repeat CMP, VBG shock panel to be followed at 13:[address] Patel notified.
--- NOTE | 2018-07-18 11:02 | RAD ---
Date of service: 07/18/2018 HISTORY: code sepsis COMPARISON: 07/15/2018 FINDINGS: LUNGS: Lung volumes slightly more shallow than before. No interval consolidation seen. Perihilar interstitial lung markings slightly prominent-yet similar. PLEURA: No significant pleural effusion identified, no pneumothorax apparent. CARDIOVASCULAR: There is presence of aortic atherosclerotic calcification on x-ray.. Heart size within normal limits. Midline sternotomy and coronary artery bypass surgery changes noted. Single lead pacemaker device in place--similar in appearance No significant appearing pulmonary venous congestion. OSSEOUS STRUCTURES: Generalized osteopenia, marked thoracolumbar levoscoliosis. Prominent thoraco lumbar spondylosis. Bilateral shoulder arthrosis.. Midline sternotomy status. VISUALIZED UPPER ABDOMEN: The left epigastric area. Similar OTHER FINDINGS: None. IMPRESSION: No interval pathology noted. No interval infiltrate seen Other findings as above.
[2018-07-18 13:38] LABS: VENOUS BLOOD GAS BASE EXCESS 8.1 mmol/L (0.0-2.0); VENOUS BLOOD GAS PCO2 58 mmHg (40-60); VENOUS BLOOD GAS PO2 23 mm/Hg (30-55); VENOUS BLOOD PH 7.39 (7.32-7.43)
[2018-07-18] MEDS: Moxifloxacin IV 400mg/250ml NS 400 MG/250 ML BAG IVPB SCH (13:50)
[2018-07-18 14:07] LABS: SQUAMOUS EPITHIAL 2 /hpf (0-5); URINE BACTERIA OCC (<OCC); URINE BILIRUBIN NEGATIVE (NEGATIVE); URINE BLOOD NEGATIVE (NEGATIVE); URINE CLARITY Hazy (Clear); URINE COLOR Yellow (YELLOW); URINE GLUCOSE (UA) 2+ mg/dL (Normal); URINE LEUKOCYTE ESTERASE 3+ Leu/uL (Negative); URINE PROTEIN 1+ mg/dL (NEGATIVE); URINE UROBILINOGEN NORMAL mg/dL (0.2-1.0)
[2018-07-18 14:11] LABS: ALB/GLOB RATIO 1.3 (1.0-2.1); ALBUMIN 4.3 g/dL (3.5-5.0); CALCIUM 10.5 mg/dl (8.6-10.4)
--- NOTE | 2018-07-18 14:33 | PCM.SEPTIC ---
Sepsis Progress Note - Reassessment Type Date of Evaluation: 07/18/18 Time of Evaluation: 13:45 Reassessment Type: Non-invasive reassessment - Non Invasive Reassessment Were the most recent vital sign reviewed: Yes Vital Sign (Latest): Temp Pulse Resp BP Pulse Ox 98.9 F 119 H 20 105/56 L 97 07/18/18 14:21 07/18/18 14:21 07/18/18 14:21 07/18/18 14:21 07/18/18 14:21 Cardiovascular: Yes: Regular Rate, Rhythm. No: Bradycardia, Tachycardia Respiratory: Yes: Normal Breath Sounds. No: Accessory Muscle Use, Rhonchi, Wheezing Capillary Refill: Normal (Less than 2 sec) Skin: Warm, Rash (right and left lower abdominal unchanged papullomacular skin rash, left axilla and left hip rash )
--- NOTE | 2018-07-18 18:41 | CP.PCM.PN ---
Subjective - Date & Time of Evaluation Date of Evaluation: 07/18/18 Time of Evaluation: 18:38 - Subjective Subjective: Patient today had an episode of fever, rapid response as well as code sepsis were called today. Patient was given IV fluid and also her labs were reviewed Currently patient is somewhat sleepy, but arousable opening her eyes, and responding to simple commands. Afebrile now. No cough noted Patient is currently receiving the PEG tube feeding. Dry mucosa noted On examination: Dry mucous membrane Blood pressure slightly on the low side. Tachycardia minimal. Chest bilateral good air entry. Abdomen soft nontender no pedal edema Patient has a significant diffuse erythematous morbilliform rash most likely related to the antibiotic usage likely may be secondary to gentamicin or possibly from Avelox. Patient has a urine culture positive for Klebsiella. Also patient has elevated BUN currently receiving hypotonic fluid Assessment: 87-year-old female with a history of multiple medical problems including hypertension diabetes high cholesterol coronary artery disease CABG respiratory insufficiency admitted with recurrent sepsis. Patient has a skin reaction secondary to antibiotic likely We will closely monitor. Solu-Medrol 40 mg twice daily added Monitor glucose DVT and GI prophylaxis And will follow the patient I spoke to the patient's daughter in detail overall prognosis is very poor. Objective - Vital Signs/Intake and Output Vital Signs (last 24 hours): Temp Pulse Resp BP Pulse Ox 98.7 F 119 H 20 105/70 97 07/18/18 16:08 07/18/18 16:08 07/18/18 16:08 07/18/18 17:31 07/18/18 16:08 Intake and Output: 07/18/18 07/18/18 06:59 18:59 Intake Total 1100 1270 Balance 1100 1270 - Medications Medications: Current Medications Acetaminophen (Tylenol 650 Mg Supp) 650 mg [place] Q6 PRN PRN Reason: Fever >100.4 F Last Admin: 07/18/18 07:37 Dose: 650 mg Albuterol/Ipratropium (Duoneb 3 Mg/0.5 Mg (3 Ml) Ud) 3 ml INH RQ6 [facility] Last Admin: 07/18/18 13:16 Dose: Not Given Diltiazem HCl (Cardizem) 30 mg PO QID [facility] Last Admin: 07/18/18 17:31 Dose: 30 mg Moxifloxacin HCl (Avelox Iv 400mg/250ml Ns) 400 mg in 250 mls @ 167 mls/hr IVPB Q24H [facility]; Protocol Last Admin: 07/18/18 13:50 Dose: 167 mls/hr Sodium Chloride (Sodium Chloride 0.45%) 500 mls @ 75 mls/hr IV .Q6H40M [facility] Stop: 07/18/18 20:30 Last Admin: 07/18/18 17:32 Dose: 75 mls/hr Insulin Glargine (Lantus) 30 unit SC DAILY [facility] Last Admin: 07/18/18 09:18 Dose: Not Given Insulin Human Regular (Novolin R) 0 unit SC Q6 [facility]; Protocol Last Admin: 07/18/18 12:31 Dose: 2 units Metoprolol Tartrate (Lopressor) 25 mg PO BID [facility] Last Admin: 07/18/18 17:31 Dose: 25 mg Neomycin/Polymyxin/Bacitracin (Neosporin Triple Antibiotic Oint) 1 gm TOP DAILY [facility] Last Admin: 07/18/18 09:08 Dose: 1 applic Nystatin (Nystop Topical Powder) 1 applic TOP BID [facility] Last Admin: 07/18/18 17:31 Dose: 1 applic Pantoprazole Sodium (Protonix Susp) 40 mg PO 0600 [facility] Last Admin: 07/18/18 05:44 Dose: 40 mg Rosuvastatin Calcium (Crestor) 10 mg PO HS [facility] Last Admin: 07/17/18 21:59 Dose: 10 mg - Labs Labs: 07/18/18 08:02 07/18/18 13:49
[2018-07-18] MEDS: Sodium Chloride 0.45% 500ml 1,000 ML IV SCH (18:45)
--- NOTE | 2018-07-18 19:56 | CP.PCM.PN ---
Subjective - Date & Time of Evaluation Date of Evaluation: 07/18/18 Time of Evaluation: 19:56 - Subjective Subjective: EVENTS NOTED S/P CODE SEPSIS [id number], TACHYCARDIAC. INCREASING LEUKOCYTOSIS HYPERNATREMIA INCREAZING AZOTEMIA. HYPERLACTATEMIA. RASH NOTED IN GROINS.BL SIDES AND SKIN FOLDS ,AXILLAE ? MONILIASIS , ? DRUG REACTION ONYCHOMYCOSIS NAILS GT -PEG SITE STILL WITH ERYTHEMA AND DRAINAGE Objective - Vital Signs/Intake and Output Vital Signs (last 24 hours): Temp Pulse Resp BP Pulse Ox 98.7 F 119 H 20 105/70 97 07/18/18 16:08 07/18/18 16:08 07/18/18 16:08 07/18/18 17:31 07/18/18 16:08 Intake and Output: 07/18/18 07/19/18 18:59 06:59 Intake Total 1270 Balance 1270 - Medications Medications: Current Medications Acetaminophen (Tylenol 650 Mg Supp) 650 mg WV Q6 PRN PRN Reason: Fever >100.4 F Last Admin: 07/18/18 07:37 Dose: 650 mg Albuterol/Ipratropium (Duoneb 3 Mg/0.5 Mg (3 Ml) Ud) 3 ml INH RQ6 [facility] Last Admin: 07/18/18 13:16 Dose: Not Given Diltiazem HCl (Cardizem) 30 mg PO QID [facility] Last Admin: 07/18/18 17:31 Dose: 30 mg Moxifloxacin HCl (Avelox Iv 400mg/250ml Ns) 400 mg in 250 mls @ 167 mls/hr IVPB Q24H [facility]; Protocol Last Admin: 07/18/18 13:50 Dose: 167 mls/hr Sodium Chloride (Sodium Chloride 0.45%) 500 mls @ 75 mls/hr IV .Q6H40M [facility] Stop: 07/18/18 20:30 Last Admin: 07/18/18 17:32 Dose: 75 mls/hr Sodium Chloride (Sodium Chloride 0.45%) 1,000 mls @ 75 mls/hr IV .[id number] [facility] Insulin Glargine (Lantus) 30 unit SC DAILY [facility] Last Admin: 07/18/18 09:18 Dose: Not Given Insulin Human Regular (Novolin R) 0 unit SC Q6 [facility]; Protocol Last Admin: 07/18/18 12:31 Dose: 2 units Methylprednisolone (Solu-Medrol) 40 mg IVP Q12 [facility] Metoprolol Tartrate (Lopressor) 25 mg PO BID [facility] Last Admin: 07/18/18 17:31 Dose: 25 mg Neomycin/Polymyxin/Bacitracin (Neosporin Triple Antibiotic Oint) 1 gm TOP DAILY [facility] Last Admin: 07/18/18 09:08 Dose: 1 applic Nystatin (Nystop Topical Powder) 1 applic TOP BID [facility] Last Admin: 07/18/18 17:31 Dose: 1 applic Pantoprazole Sodium (Protonix Susp) 40 mg PO 0600 [facility] Last Admin: 07/18/18 05:44 Dose: 40 mg Rosuvastatin Calcium (Crestor) 10 mg PO HS [facility] Last Admin: 07/17/18 21:59 Dose: 10 mg - Labs Labs: 07/18/18 08:02 07/18/18 13:49 - Constitutional Appears: No Acute Distress, Chronically Ill - Head Exam Head Exam: NORMAL INSPECTION - Eye Exam Eye Exam: PERRL - ENT Exam ENT Exam: Mucous Membranes Dry - Neck Exam Neck Exam: Normal Inspection - Respiratory Exam Respiratory Exam: Decreased Breath Sounds - Cardiovascular Exam Cardiovascular Exam: Tachycardia, REGULAR RHYTHM, +S1, +S2 - GI/Abdominal Exam GI & Abdominal Exam: Soft, Normal Bowel Sounds (PEG IN PLACE) - Extremities Exam Extremities Exam: Pedal Edema. absent: Calf Tenderness - Neurological Exam Neurological Exam: Awake, CN II-XII Intact - Skin Skin Exam: Normal Color, Warm Assessment and Plan (1) Sepsis Status: Acute (2) Leukocytosis Status: Acute (3) UTI (urinary tract infection) Status: Acute (4) Infection of gastrostomy site Status: Acute (5) Diabetes Status: Chronic (6) Hx of CABG Status: Acute (7) Hypernatremia Status: Acute (8) Acute hypernatremia Status: Acute (9) Prerenal azotemia Status: Acute - Assessment and Plan (Free Text) Plan: OFF IV GENTAMICIN. PANCULTURE D/C IV MOXIFLOXCIN 400MG OD DAILY 07/15/18 -07/19/18. START IV COLISTIN 100 MG IVPB Q 36HRLYT INFUSE OVER IN 90MIN.07/19/18 IV [id number] IV [id number]. TOPICAL NYSTATIN POWDER PER ORDER F/U CULTURES TO ADJUST ANTIBIOTICS IV FLUIDS PER PMD FOLY AND MAINTAIN INPUT/ AND OUTPUT. LOCAL WOUND CARE PEG EXIT SITE.
[2018-07-18] MEDS: MethylPREDNISolone 40 mg Vial IVP SCH (21:21)
[2018-07-19] MEDS: (Novolin R) Insulin Human Regular 100 units/ml vial SC SCH ×4 (01:26→17:25)
[2018-07-19] MEDS: Albuterol-Ipratrop 3 mg / 0.5 (3 ml) UD INH SCH ×4 (02:00→19:30)
[2018-07-19] MEDS: Pantoprazole 40 mg Susp UD PO SCH (06:02)
[2018-07-19 07:36] LABS: BASO # 0.1 K/uL (0.0-0.2); BASO % 0.4 % (0.0-2.0); EOS # 0.1 K/uL (0.0-0.7); EOS % 0.3 % (0.0-4.0); HEMOGLOBIN 10.1 g/dL (11.0-16.0); LYMPH # 1.3 K/uL (1.0-4.3); LYMPH % 5.3 % (20.0-40.0); MEAN CELL VOLUME 100.7 fL (81.0-99.0); MEAN CORPUSCULAR HEMOGLOBIN 32.2 pg (27.0-31.0); MEAN PLATELET VOLUME 8.2 fL (7.2-11.7); MONO # 0.9 K/uL (0.0-0.8); MONO % 3.6 % (0.0-10.0); NEUT # 21.5 K/uL (1.8-7.0); NEUT % 90.4 % (50.0-75.0); NRBC % 0.5 % (0.0-2.0); PLATELET COUNT 240 K/uL (130-400); RBC 3.15 Mil/uL (3.80-5.20); RED CELL DISTRIBUTION WIDTH 16.4 % (11.5-14.5); WHITE BLOOD COUNT 23.8 K/uL (4.8-10.8)
[2018-07-19 08:10] LABS: ALB/GLOB RATIO 1.4 (1.0-2.1); ALT/SGPT 35 U/L (9-52); AST/SGOT 41 U/L (14-36); BLOOD UREA NITROGEN 61 mg/dL (7-17); CALCIUM 8.9 mg/dl (8.6-10.4); GFR NON-AFRICAN AMERICAN 53
[2018-07-19 09:07] LABS: ANISOCYTOSIS SLIGHT; BANDS 3 % (0-2); LYMPHOCYTE 11 % (20-40); MONOCYTE 3 % (0-10); MYELOCYTE 1 % (0-0); NEUTROPHIL 82 % (50-75); NUCLEATED RED BLOOD CELL 4 % (0-0); PLATELET ESTIMATE NORMAL (NORMAL); POIKILOCYTOSIS SLIGHT; TOTAL CELLS COUNTED 100
[2018-07-19 09:08] LABS: HYPOCHROMIC SLIGHT; POLYCHROMIC SLIGHT
[2018-07-19] MEDS: (Lantus) Insulin Glargine, Recombinant SC SCH (09:38)
[2018-07-19] MEDS: MethylPREDNISolone 40 mg Vial IVP SCH (09:38)
[2018-07-19] MEDS: Bacitracin/Neomycin/Polymyxin Oint(30GM) TOP SCH (09:43)
[2018-07-19] MEDS: Sodium Chloride 0.45% 500ml 1,000 ML IV SCH ×2 (11:43→14:45)
--- NOTE | 2018-07-19 17:35 | CP.PCM.PN ---
Subjective - Date & Time of Evaluation Date of Evaluation: 07/19/18 Time of Evaluation: 17:34 - Subjective Subjective: Patient mucous membrane is still dry. She is responding to deep stimuli. Today the labs reviewed Sodium level is slight improvement noted. We will continue the hypotonic saline. Afebrile today. The rash is still noticed, better. Patient is currently on colistin intravenously started yesterday. Overall prognosis very poor. We will discuss with the patient's family and will follow the patient Objective - Vital Signs/Intake and Output Vital Signs (last 24 hours): Temp Pulse Resp BP Pulse Ox 97.9 F 109 H 20 110/66 99 07/19/18 16:00 07/19/18 16:00 07/19/18 16:00 07/19/18 17:29 07/19/18 16:00 Intake and Output: 07/19/18 07/19/18 06:59 18:59 Intake Total 700 1070 Output Total 550 800 Balance 150 270 - Medications Medications: Current Medications Acetaminophen (Tylenol 650 Mg Supp) 650 mg [place] Q6 PRN PRN Reason: Fever >100.4 F Last Admin: 07/18/18 07:37 Dose: 650 mg Albuterol/Ipratropium (Duoneb 3 Mg/0.5 Mg (3 Ml) Ud) 3 ml INH RQ6 [facility] Last Admin: 07/19/18 13:27 Dose: 3 ml Diltiazem HCl (Cardizem) 30 mg PO QID [facility] Last Admin: 07/19/18 17:29 Dose: 30 mg Colistimethate Sodium 100 mg/ (Sodium Chloride) 100 mls @ 200 mls/hr IV Q36H [facility]; Protocol Last Admin: 07/19/18 02:14 Dose: 200 mls/hr Sodium Chloride (Sodium Chloride 0.45%) 1,000 mls @ 100 mls/hr IV .Q10H [facility] Insulin Glargine (Lantus) 30 unit SC DAILY [facility] Last Admin: 07/19/18 09:38 Dose: 30 units Insulin Human Regular (Novolin R) 0 unit SC Q6 [facility]; Protocol Last Admin: 07/19/18 17:25 Dose: 12 units Metoprolol Tartrate (Lopressor) 25 mg PO BID [facility] Last Admin: 07/19/18 17:29 Dose: 25 mg Neomycin/Polymyxin/Bacitracin (Neosporin Triple Antibiotic Oint) 1 gm TOP DAILY [facility] Last Admin: 07/19/18 09:43 Dose: 1 applic Nystatin (Nystop Topical Powder) 1 applic TOP BID [facility] Last Admin: 07/19/18 09:44 Dose: 1 applic Pantoprazole Sodium (Protonix Susp) 40 mg PO 0600 [facility] Last Admin: 07/19/18 06:02 Dose: 40 mg Rosuvastatin Calcium (Crestor) 10 mg PO HS [facility] Last Admin: 07/18/18 21:18 Dose: 10 mg - Labs Labs: 07/19/18 07:14 07/19/18 07:14
[2018-07-19] MEDS: Sodium Chloride 0.45% 1,000 ML IV SCH (17:42)
--- NOTE | 2018-07-19 19:59 | CP.PCM.PN ---
Subjective - Date & Time of Evaluation Date of Evaluation: 07/19/18 Time of Evaluation: 19:59 - Subjective Subjective: AFEBRILE, VSS, tACHYCARDIC lETHARGIC, ON CARDIAC CHAIR. pOORLY RESPONSIVE TO STIMULI. RASH MACULOPAPULAR MORE CONFLUENT ?PROBABLY DRUG-INDUCED. PATIENT STARTED ON iv COLISTIN. pATIENT TOLERATING. LABS; rEVIEWED. wbc 23.8 PROBABLY SECONDARY TO STEROIDS. LFTS N. SODIUM 156. CREATININE 1.0/bun 61. Objective - Vital Signs/Intake and Output Vital Signs (last 24 hours): Temp Pulse Resp BP Pulse Ox 97.9 F 109 H 20 110/66 99 07/19/18 16:00 07/19/18 16:00 07/19/18 16:00 07/19/18 17:29 07/19/18 16:00 Intake and Output: 07/19/18 07/20/18 18:59 06:59 Intake Total 1070 Output Total 800 Balance 270 - Medications Medications: Current Medications Acetaminophen (Tylenol 650 Mg Supp) 650 mg [place] Q6 PRN PRN Reason: Fever >100.4 F Last Admin: 07/18/18 07:37 Dose: 650 mg Albuterol/Ipratropium (Duoneb 3 Mg/0.5 Mg (3 Ml) Ud) 3 ml INH RQ6 [facility] Last Admin: 07/19/18 13:27 Dose: 3 ml Diltiazem HCl (Cardizem) 30 mg PO QID [facility] Last Admin: 07/19/18 17:29 Dose: 30 mg Colistimethate Sodium 100 mg/ (Sodium Chloride) 100 mls @ 200 mls/hr IV Q36H [facility]; Protocol Last Admin: 07/19/18 02:14 Dose: 200 mls/hr Sodium Chloride (Sodium Chloride 0.45%) 1,000 mls @ 100 mls/hr IV .Q10H [facility] Last Admin: 07/19/18 17:42 Dose: 100 mls/hr Insulin Glargine (Lantus) 30 unit SC DAILY [facility] Last Admin: 07/19/18 09:38 Dose: 30 units Insulin Human Regular (Novolin R) 0 unit SC Q6 [facility]; Protocol Last Admin: 07/19/18 17:25 Dose: 12 units Metoprolol Tartrate (Lopressor) 25 mg PO BID [facility] Last Admin: 07/19/18 17:29 Dose: 25 mg Neomycin/Polymyxin/Bacitracin (Neosporin Triple Antibiotic Oint) 1 gm TOP DAILY [facility] Last Admin: 07/19/18 09:43 Dose: 1 applic Nystatin (Nystop Topical Powder) 1 applic TOP BID [facility] Last Admin: 07/19/18 17:39 Dose: 1 applic Pantoprazole Sodium (Protonix Susp) 40 mg PO 0600 [facility] Last Admin: 07/19/18 06:02 Dose: 40 mg Rosuvastatin Calcium (Crestor) 10 mg PO HS [facility] Last Admin: 07/18/18 21:18 Dose: 10 mg - Labs Labs: 07/19/18 07:14 07/19/18 07:14 - Constitutional Appears: No Acute Distress, Chronically Ill - Head Exam Head Exam: NORMAL INSPECTION - Eye Exam Eye Exam: PERRL - ENT Exam ENT Exam: Mucous Membranes Dry - Neck Exam Neck Exam: Normal Inspection. absent: Meningismus - Respiratory Exam Respiratory Exam: Decreased Breath Sounds, NORMAL BREATHING PATTERN - Cardiovascular Exam Cardiovascular Exam: Tachycardia, +S1, +S2 - GI/Abdominal Exam GI & Abdominal Exam: Soft, Normal Bowel Sounds (PEG IN PLACE.) - Extremities Exam Extremities Exam: Normal Capillary Refill. absent: Calf Tenderness, Pedal Edema (1+) - Neurological Exam Neurological Exam: Altered - Psychiatric Exam Psychiatric exam: Flat Affect - Skin Skin Exam: Normal Color, Warm Assessment and Plan (1) Sepsis Status: Acute (2) Leukocytosis Status: Acute (3) UTI (urinary tract infection) Status: Acute (4) Infection of gastrostomy site Status: Acute (5) Diabetes Status: Chronic (6) Hx of CABG Status: Acute (7) Hypernatremia Status: Acute (8) Acute hypernatremia Status: Acute (9) Prerenal azotemia Status: Acute - Assessment and Plan (Free Text) Plan: ON IV COLISTIN 100 MG IVPB Q 36HRLYT INFUSE OVER IN 90MIN.07/19/18 IV [id number] IV [id number]. TOPICAL NYSTATIN POWDER PER ORDER F/U CULTURES TO ADJUST ANTIBIOTICS IV FLUIDS PER PMD FOLY AND MAINTAIN INPUT/ AND OUTPUT. LOCAL WOUND CARE PEG EXIT SITE.
[2018-07-20] MEDS: (Novolin R) Insulin Human Regular 100 units/ml vial SC SCH ×4 (00:12→18:21)
[2018-07-20] MEDS: Albuterol-Ipratrop 3 mg / 0.5 (3 ml) UD INH SCH ×4 (01:25→20:55)
[2018-07-20] MEDS: Sodium Chloride 0.45% 1,000 ML IV SCH ×3 (04:58→18:03)
[2018-07-20] MEDS: Pantoprazole 40 mg Susp UD PO SCH (06:22)
[2018-07-20 07:12] LABS: BASO # 0.1 K/uL (0.0-0.2); BASO % 0.2 % (0.0-2.0); EOS # 0.1 K/uL (0.0-0.7); EOS % 0.2 % (0.0-4.0); HEMOGLOBIN 8.2 g/dL (11.0-16.0); LYMPH # 1.2 K/uL (1.0-4.3); MEAN CELL VOLUME 100.7 fL (81.0-99.0); MEAN CORPUSCULAR HEMOGLOBIN 32.7 pg (27.0-31.0); MEAN CORPUSCULAR HGB CONC 32.5 g/dL (33.0-37.0); MEAN PLATELET VOLUME 8.6 fL (7.2-11.7); MONO # 1.8 K/uL (0.0-0.8); MONO % 7.7 % (0.0-10.0); NEUT # 19.8 K/uL (1.8-7.0); NEUT % 86.9 % (50.0-75.0); NRBC % 0.4 % (0.0-2.0); PLATELET COUNT 234 K/uL (130-400); RBC 2.52 Mil/uL (3.80-5.20); RED CELL DISTRIBUTION WIDTH 15.6 % (11.5-14.5); WHITE BLOOD COUNT 22.8 K/uL (4.8-10.8)
[2018-07-20 07:24] LABS: ALB/GLOB RATIO 1.3 (1.0-2.1); ALBUMIN 3.5 g/dL (3.5-5.0); CALCIUM 9.2 mg/dl (8.6-10.4)
[2018-07-20] MEDS: (Lantus) Insulin Glargine, Recombinant SC SCH (09:55)
[2018-07-20] MEDS: Bacitracin/Neomycin/Polymyxin Oint(30GM) TOP SCH (09:56)
[2018-07-20 11:14] LABS: BANDS 3 % (0-2); EOSINOPHIL 1 % (0-4); LYMPHOCYTE 5 % (20-40); MONOCYTE 5 % (0-10); NEUTROPHIL 86 % (50-75); PLATELET ESTIMATE NORMAL (NORMAL); TOTAL CELLS COUNTED 100
[2018-07-20 11:17] LABS: ANISOCYTOSIS SLIGHT; HYPOCHROMIC SLIGHT; LARGE PLATELETS PRESENT; POLYCHROMIC SLIGHT; TOXIC GRANULATION PRESENT
[2018-07-21] MEDS: (Novolin R) Insulin Human Regular 100 units/ml vial SC SCH ×4 (00:16→18:29)
[2018-07-21] MEDS: Sodium Chloride 0.45% 1,000 ML IV SCH ×3 (00:16→20:20)
[2018-07-21] MEDS: Albuterol-Ipratrop 3 mg / 0.5 (3 ml) UD INH SCH ×4 (01:00→19:34)
[2018-07-21] MEDS: Pantoprazole 40 mg Susp UD PO SCH (06:09)
[2018-07-21] MEDS: Bacitracin/Neomycin/Polymyxin Oint(30GM) TOP SCH (10:06)
[2018-07-21] MEDS: (Lantus) Insulin Glargine, Recombinant SC SCH (10:07)
[2018-07-22] MEDS: (Novolin R) Insulin Human Regular 100 units/ml vial SC SCH ×4 (00:01→18:16)
[2018-07-22] MEDS: Albuterol-Ipratrop 3 mg / 0.5 (3 ml) UD INH SCH ×4 (02:49→19:51)
[2018-07-22] MEDS: Sodium Chloride 0.45% 1,000 ML IV SCH ×3 (04:45→16:40)
[2018-07-22] MEDS: Pantoprazole 40 mg Susp UD PO SCH (05:37)
[2018-07-22] MEDS: (Lantus) Insulin Glargine, Recombinant SC SCH (10:05)
[2018-07-22] MEDS: Bacitracin/Neomycin/Polymyxin Oint(30GM) TOP SCH (10:06)
--- NOTE | 2018-07-22 19:43 | CP.PCM.PN ---
Subjective - Date & Time of Evaluation Date of Evaluation: 07/22/18 Time of Evaluation: 19:43 - Subjective Subjective: temp 98.5 vs tachycardiac. more awake rash fading away. PATIENT ON iv COLISTIN. pATIENT TOLERATING. LABS; REVIEWED. wbc 22.1 PROBABLY SECONDARY TO STEROIDS. BLOOD CULTURES 2:2 SETS 07/18/18 -VE GROWTH TO DATE REPEAT URINE CULTURE 07/18/18 -VE GROWTH. Objective - Vital Signs/Intake and Output Vital Signs (last 24 hours): Temp Pulse Resp BP Pulse Ox 98.3 F 97 H 20 109/61 99 07/22/18 16:00 07/22/18 17:26 07/22/18 16:00 07/22/18 17:36 07/22/18 16:00 Intake and Output: 07/22/18 07/23/18 18:59 06:59 Intake Total 1270 Output Total 350 Balance 920 - Medications Medications: Current Medications Acetaminophen (Tylenol 650 Mg Supp) 650 mg [place] Q6 PRN PRN Reason: Fever >100.4 F Last Admin: 07/18/18 07:37 Dose: 650 mg Albuterol/Ipratropium (Duoneb 3 Mg/0.5 Mg (3 Ml) Ud) 3 ml INH RQ6 [facility] Last Admin: 07/22/18 13:33 Dose: Not Given Diltiazem HCl (Cardizem) 30 mg PO QID [facility] Last Admin: 07/22/18 17:36 Dose: 30 mg Colistimethate Sodium 100 mg/ (Sodium Chloride) 100 mls @ 200 mls/hr IV Q36H [facility]; Protocol Last Admin: 07/22/18 01:23 Dose: 200 mls/hr Sodium Chloride (Sodium Chloride 0.45%) 1,000 mls @ 100 mls/hr IV .Q10H [facility] Last Admin: 07/22/18 16:40 Dose: 100 mls/hr Insulin Glargine (Lantus) 30 unit SC DAILY [facility] Last Admin: 07/22/18 10:05 Dose: 30 units Insulin Human Regular (Novolin R) 0 unit SC Q6 [facility]; Protocol Last Admin: 07/22/18 18:16 Dose: 4 units Metoprolol Tartrate (Lopressor) 25 mg PO BID [facility] Last Admin: 07/22/18 17:36 Dose: 25 mg Neomycin/Polymyxin/Bacitracin (Neosporin Triple Antibiotic Oint) 1 gm TOP DAILY [facility] Last Admin: 07/22/18 10:06 Dose: 1 applic Nystatin (Nystop Topical Powder) 1 applic TOP BID [facility] Last Admin: 07/22/18 19:28 Dose: 1 applic Pantoprazole Sodium (Protonix Susp) 40 mg PO 0600 [facility] Last Admin: 07/22/18 05:37 Dose: 40 mg Rosuvastatin Calcium (Crestor) 10 mg PO HS [facility] Last Admin: 07/21/18 21:43 Dose: 10 mg - Labs Labs: 07/20/18 06:59 07/20/18 06:59 - Constitutional Appears: No Acute Distress, Chronically Ill - Head Exam Head Exam: NORMAL INSPECTION - Eye Exam Eye Exam: EOMI, PERRL - ENT Exam ENT Exam: Mucous Membranes Moist, Normal Oropharynx - Neck Exam Neck Exam: Normal Inspection - Respiratory Exam Respiratory Exam: Decreased Breath Sounds, NORMAL BREATHING PATTERN - Cardiovascular Exam Cardiovascular Exam: Tachycardia, REGULAR RHYTHM, +S1, +S2 - GI/Abdominal Exam GI & Abdominal Exam: Soft, Normal Bowel Sounds (PEG IN PLACE. RASH AROUND PEG IMPROVING.) - Extremities Exam Extremities Exam: Normal Capillary Refill. absent: Calf Tenderness, Pedal Edema - Neurological Exam Neurological Exam: Awake - Psychiatric Exam Psychiatric exam: Normal Mood Assessment and Plan (1) Sepsis Status: Acute (2) Leukocytosis Status: Acute (3) UTI (urinary tract infection) Status: Acute (4) Infection of gastrostomy site Status: Acute (5) Diabetes Status: Chronic (6) Hx of CABG Status: Acute (7) Hypernatremia Status: Acute (8) Acute hypernatremia Status: Acute (9) Prerenal azotemia Status: Acute - Assessment and Plan (Free Text) Plan: ON IV COLISTIN 100 MG IVPB Q 36HRLYT INFUSE OVER IN 90MIN.07/19/18 IV [id number] IV [id number]. TOPICAL NYSTATIN POWDER PER ORDER F/U CULTURES TO ADJUST ANTIBIOTICS. F/U CBC BMP IN AM IV FLUIDS PER PMD FOLY AND MAINTAIN INPUT/ AND OUTPUT. LOCAL WOUND CARE PEG EXIT SITE.
[2018-07-23] MEDS: (Novolin R) Insulin Human Regular 100 units/ml vial SC SCH ×6 (00:11→23:42)
[2018-07-23] MEDS: Albuterol-Ipratrop 3 mg / 0.5 (3 ml) UD INH SCH ×4 (02:58→19:19)
[2018-07-23] MEDS: Sodium Chloride 0.45% 1,000 ML IV SCH ×5 (03:45→21:33)
[2018-07-23] MEDS: Pantoprazole 40 mg Susp UD PO SCH (05:36)
[2018-07-23] MEDS: (Lantus) Insulin Glargine, Recombinant SC SCH (09:34)
[2018-07-23] MEDS: Bacitracin/Neomycin/Polymyxin Oint(30GM) TOP SCH (10:45)
[2018-07-24] MEDS: Albuterol-Ipratrop 3 mg / 0.5 (3 ml) UD INH SCH ×3 (03:39→19:06)
[2018-07-24] MEDS: (Novolin R) Insulin Human Regular 100 units/ml vial SC SCH ×3 (05:34→18:22)
[2018-07-24] MEDS: Pantoprazole 40 mg Susp UD PO SCH (05:34)
[2018-07-24 07:31] LABS: BASO # 0.1 K/uL (0.0-0.2); BASO % 1.1 % (0.0-2.0); EOS # 0.5 K/uL (0.0-0.7); EOS % 4.2 % (0.0-4.0); HEMOGLOBIN 8.2 g/dL (11.0-16.0); LYMPH # 2.3 K/uL (1.0-4.3); LYMPH % 19.2 % (20.0-40.0); MEAN CORPUSCULAR HEMOGLOBIN 32.8 pg (27.0-31.0); MEAN CORPUSCULAR HGB CONC 33.6 g/dL (33.0-37.0); MEAN PLATELET VOLUME 8.8 fL (7.2-11.7); MONO # 0.8 K/uL (0.0-0.8); MONO % 6.4 % (0.0-10.0); NEUT # 8.4 K/uL (1.8-7.0); NEUT % 69.1 % (50.0-75.0); NRBC % 0.1 % (0.0-2.0); RBC 2.49 Mil/uL (3.80-5.20); RED CELL DISTRIBUTION WIDTH 15.4 % (11.5-14.5); WHITE BLOOD COUNT 12.2 K/uL (4.8-10.8)
[2018-07-24] MEDS: Sodium Chloride 0.45% 1,000 ML IV SCH ×3 (07:58→21:49)
[2018-07-24 08:09] LABS: BLOOD UREA NITROGEN 18 mg/dL (7-17); CALCIUM 8.9 mg/dl (8.6-10.4); GFR NON-AFRICAN AMERICAN > 60; MEAN CELL VOLUME 97.6 fL (81.0-99.0)
[2018-07-24] MEDS: (Lantus) Insulin Glargine, Recombinant SC SCH (10:58)
[2018-07-24] MEDS: Bacitracin/Neomycin/Polymyxin Oint(30GM) TOP SCH (11:00)
--- NOTE | 2018-07-24 23:28 | CP.PCM.PN ---
Subjective - Date & Time of Evaluation Date of Evaluation: 07/24/18 Time of Evaluation: 23:27 - Subjective Subjective: AFEBRILE. MORE AWAKE rash fading away. PATIENT ON iv COLISTIN. Objective - Vital Signs/Intake and Output Vital Signs (last 24 hours): Temp Pulse Resp BP Pulse Ox 97.3 F L 94 H 20 122/77 99 07/24/18 16:00 07/24/18 21:30 07/24/18 16:00 07/24/18 21:30 07/24/18 16:00 Intake and Output: 07/24/18 07/25/18 18:59 06:59 Intake Total 1270 Output Total 1000 600 Balance -1000 670 - Medications Medications: Current Medications Acetaminophen (Tylenol 650 Mg Supp) 650 mg [place] Q6 PRN PRN Reason: Fever >100.4 F Last Admin: 07/18/18 07:37 Dose: 650 mg Albuterol/Ipratropium (Duoneb 3 Mg/0.5 Mg (3 Ml) Ud) 3 ml INH RQ6 [facility] Last Admin: 07/24/18 19:06 Dose: 3 ml Diltiazem HCl (Cardizem) 30 mg PO QID [facility] Last Admin: 07/24/18 21:47 Dose: 30 mg Colistimethate Sodium 100 mg/ (Sodium Chloride) 100 mls @ 200 mls/hr IV Q36H [facility]; Protocol Last Admin: 07/23/18 14:01 Dose: 200 mls/hr Sodium Chloride (Sodium Chloride 0.45%) 1,000 mls @ 100 mls/hr IV .Q10H [facility] Last Admin: 07/24/18 21:49 Dose: Not Given Insulin Glargine (Lantus) 30 unit SC DAILY [facility] Last Admin: 07/24/18 10:58 Dose: 30 units Insulin Human Regular (Novolin R) 0 unit SC Q6 [facility]; Protocol Last Admin: 07/24/18 18:22 Dose: 2 units Metoprolol Tartrate (Lopressor) 25 mg PO BID [facility] Last Admin: 07/24/18 18:22 Dose: 25 mg Neomycin/Polymyxin/Bacitracin (Neosporin Triple Antibiotic Oint) 1 gm TOP DAILY [facility] Last Admin: 07/24/18 11:00 Dose: 1 applic Nystatin (Nystop Topical Powder) 1 applic TOP BID [facility] Last Admin: 07/24/18 18:01 Dose: 1 applic Pantoprazole Sodium (Protonix Susp) 40 mg PO 0600 [facility] Last Admin: 07/24/18 05:34 Dose: 40 mg Rosuvastatin Calcium (Crestor) 10 mg PO HS [facility] Last Admin: 07/24/18 21:47 Dose: 10 mg - Labs Labs: 07/24/18 07:19 07/24/18 07:19 - Constitutional Appears: No Acute Distress, Chronically Ill - Head Exam Head Exam: NORMAL INSPECTION - Eye Exam Eye Exam: EOMI, PERRL - ENT Exam ENT Exam: Normal Oropharynx - Neck Exam Neck Exam: Normal Inspection - Respiratory Exam Respiratory Exam: Decreased Breath Sounds, NORMAL BREATHING PATTERN - Cardiovascular Exam Cardiovascular Exam: Tachycardia, REGULAR RHYTHM, +S1, +S2 - GI/Abdominal Exam GI & Abdominal Exam: Soft, Normal Bowel Sounds (PEG IN PLACE.) - Extremities Exam Extremities Exam: Normal Capillary Refill, Pedal Edema. absent: Calf Tenderness - Neurological Exam Neurological Exam: Awake, CN II-XII Intact, Oriented x3 - Psychiatric Exam Psychiatric exam: Flat Affect - Skin Skin Exam: Normal Color, Warm Assessment and Plan (1) Sepsis Status: Acute (2) Leukocytosis Status: Acute (3) UTI (urinary tract infection) Status: Acute (4) Infection of gastrostomy site Status: Acute (5) Diabetes Status: Chronic (6) Hx of CABG Status: Acute (7) Hypernatremia Status: Acute (8) Acute hypernatremia Status: Acute (9) Prerenal azotemia Status: Acute - Assessment and Plan (Free Text) Plan: ON IV COLISTIN 100 MG IVPB Q 36HRLYT INFUSE OVER IN 90MIN.07/19/18 IV SOLUMEDROL 40MG IV [id number]. TOPICAL NYSTATIN POWDER PER ORDER LWC PER WOUND CARE.
[2018-07-25] MEDS: (Novolin R) Insulin Human Regular 100 units/ml vial SC SCH ×4 (00:22→18:54)
[2018-07-25] MEDS: Sodium Chloride 0.45% 1,000 ML IV SCH (01:00)
[2018-07-25] MEDS: Pantoprazole 40 mg Susp UD PO SCH (05:26)
[2018-07-25] MEDS: Albuterol-Ipratrop 3 mg / 0.5 (3 ml) UD INH SCH ×3 (07:45→20:14)
[2018-07-25] MEDS: (Lantus) Insulin Glargine, Recombinant SC SCH ×2 (08:13→11:37)
[2018-07-25] MEDS: Bacitracin/Neomycin/Polymyxin Oint(30GM) TOP SCH (11:39)
--- NOTE | 2018-07-25 20:37 | CP.PCM.PN ---
Subjective - Date & Time of Evaluation Date of Evaluation: 07/25/18 Time of Evaluation: 20:36 - Subjective Subjective: AFEBRILE , CLINICALLY SAME RASH IMPROVING TOLERATING IV COLISTIN. LABS REVIEWED. Objective - Vital Signs/Intake and Output Vital Signs (last 24 hours): Temp Pulse Resp BP Pulse Ox 98.2 F 91 H 20 103/62 96 07/25/18 15:46 07/25/18 17:41 07/25/18 15:46 07/25/18 17:46 07/25/18 15:46 - Medications Medications: Current Medications Acetaminophen (Tylenol 650 Mg Supp) 650 mg [place] Q6 PRN PRN Reason: Fever >100.4 F Last Admin: 07/18/18 07:37 Dose: 650 mg Albuterol/Ipratropium (Duoneb 3 Mg/0.5 Mg (3 Ml) Ud) 3 ml INH RQ6 [facility] Last Admin: 07/25/18 20:14 Dose: 3 ml Diltiazem HCl (Cardizem) 30 mg PO QID [facility] Last Admin: 07/25/18 14:54 Dose: 30 mg Colistimethate Sodium 100 mg/ (Sodium Chloride) 100 mls @ 200 mls/hr IV Q36H [facility]; Protocol Last Admin: 07/25/18 02:30 Dose: 200 mls/hr Insulin Glargine (Lantus) 30 unit SC DAILY [facility] Last Admin: 07/25/18 11:37 Dose: Not Given Insulin Human Regular (Novolin R) 0 unit SC Q6 [facility]; Protocol Last Admin: 07/25/18 18:54 Dose: 4 units Metoprolol Tartrate (Lopressor) 25 mg PO BID [facility] Last Admin: 07/25/18 17:46 Dose: 25 mg Neomycin/Polymyxin/Bacitracin (Neosporin Triple Antibiotic Oint) 1 gm TOP DAILY [facility] Last Admin: 07/25/18 11:39 Dose: 1 applic Nystatin (Nystop Topical Powder) 1 applic TOP BID [facility] Last Admin: 07/25/18 17:47 Dose: 1 applic Pantoprazole Sodium (Protonix Susp) 40 mg PO 0600 [facility] Last Admin: 07/25/18 05:26 Dose: 40 mg Rosuvastatin Calcium (Crestor) 10 mg PO HS [facility] Last Admin: 07/24/18 21:47 Dose: 10 mg - Labs Labs: 07/24/18 07:19 07/24/18 07:19 - Constitutional Appears: No Acute Distress, Chronically Ill - Eye Exam Eye Exam: PERRL. absent: Scleral icterus - ENT Exam ENT Exam: Normal Oropharynx - Neck Exam Neck Exam: Normal Inspection - Respiratory Exam Respiratory Exam: Decreased Breath Sounds, NORMAL BREATHING PATTERN - Cardiovascular Exam Cardiovascular Exam: Tachycardia, REGULAR RHYTHM, +S1, +S2 - GI/Abdominal Exam GI & Abdominal Exam: Soft, Normal Bowel Sounds (+VE PEG EXIT SITE DRYING UP.) - Extremities Exam Extremities Exam: Normal Capillary Refill. absent: Calf Tenderness, Pedal Edema - Neurological Exam Neurological Exam: Awake, CN II-XII Intact, Oriented x3 - Psychiatric Exam Psychiatric exam: Normal Affect - Skin Skin Exam: Normal Color, Warm Assessment and Plan (1) UTI (urinary tract infection) Status: Acute (2) Infection of gastrostomy site Status: Acute (3) Leukocytosis Status: Acute (4) Diabetes Status: Chronic (5) Hx of CABG Status: Acute - Assessment and Plan (Free Text) Plan: ON IV COLISTIN 100 MG IVPB Q 36HRLYT INFUSE OVER IN 90MIN.07/19/18 TILL 07/29/18 IV SOLUMEDROL 40MG IV [id number]. TAPER PER PMD SLOWLY. TOPICAL NYSTATIN POWDER PER ORDER LWC PER WOUND CARE.
--- NOTE | 2018-07-25 22:06 | CP.PCM.PN ---
Subjective - Date & Time of Evaluation Date of Evaluation: 07/25/18 Time of Evaluation: 22:05 - Subjective Subjective: Patient today this morning more awake and responding. She was answering questions. Better than in the past. On antibiotic. Vital signs stable. Chest good air entry minimal expiratory wheezing regular heart sounds abdomen soft Patient now having Klebsiella pneumoniae multidrug resistant currently on colistin. We will continue the current treatment. Discussed with ID for possible discharge plan. Objective - Vital Signs/Intake and Output Vital Signs (last 24 hours): Temp Pulse Resp BP Pulse Ox 98.2 F 91 H 20 103/62 96 07/25/18 15:46 07/25/18 17:41 07/25/18 15:46 07/25/18 17:46 07/25/18 15:46 - Medications Medications: Current Medications Acetaminophen (Tylenol 650 Mg Supp) 650 mg [place] Q6 PRN PRN Reason: Fever >100.4 F Last Admin: 07/18/18 07:37 Dose: 650 mg Albuterol/Ipratropium (Duoneb 3 Mg/0.5 Mg (3 Ml) Ud) 3 ml INH RQ6 [facility] Last Admin: 07/25/18 20:14 Dose: 3 ml Diltiazem HCl (Cardizem) 30 mg PO QID [facility] Last Admin: 07/25/18 14:54 Dose: 30 mg Colistimethate Sodium 100 mg/ (Sodium Chloride) 100 mls @ 200 mls/hr IV Q36H [facility]; Protocol Last Admin: 07/25/18 02:30 Dose: 200 mls/hr Insulin Glargine (Lantus) 30 unit SC DAILY [facility] Last Admin: 07/25/18 11:37 Dose: Not Given Insulin Human Regular (Novolin R) 0 unit SC Q6 [facility]; Protocol Last Admin: 07/25/18 18:54 Dose: 4 units Metoprolol Tartrate (Lopressor) 25 mg PO BID [facility] Last Admin: 07/25/18 17:46 Dose: 25 mg Neomycin/Polymyxin/Bacitracin (Neosporin Triple Antibiotic Oint) 1 gm TOP DAILY [facility] Last Admin: 07/25/18 11:39 Dose: 1 applic Nystatin (Nystop Topical Powder) 1 applic TOP BID [facility] Last Admin: 07/25/18 17:47 Dose: 1 applic Pantoprazole Sodium (Protonix Susp) 40 mg PO 0600 [facility] Last Admin: 07/25/18 05:26 Dose: 40 mg Rosuvastatin Calcium (Crestor) 10 mg PO HS [facility] Last Admin: 07/24/18 21:47 Dose: 10 mg - Labs Labs: 07/24/18 07:19 07/24/18 07:19
[2018-07-26] MEDS: (Novolin R) Insulin Human Regular 100 units/ml vial SC SCH ×4 (00:03→17:26)
[2018-07-26] MEDS: Albuterol-Ipratrop 3 mg / 0.5 (3 ml) UD INH SCH ×4 (01:40→19:49)
[2018-07-26] MEDS: Pantoprazole 40 mg Susp UD PO SCH (06:01)
[2018-07-26] MEDS: (Lantus) Insulin Glargine, Recombinant SC SCH (10:58)
[2018-07-26] MEDS: Bacitracin/Neomycin/Polymyxin Oint(30GM) TOP SCH (11:00)
--- NOTE | 2018-07-26 13:17 | CP.PCM.PN ---
Subjective - Date & Time of Evaluation Date of Evaluation: 07/26/18 Time of Evaluation: 13:16 - Subjective Subjective: Patient is more awake and responding now. Comfortable. Opening her eyes. Able to speak. Not in any distress. Afebrile On examination: Vital signs stable. Chest good air entry Regular heart sounds. The rash is better Currently patient is on multiple antibiotic. Assessment and recommendation: 87-year-old female with history of COPD, hypertension, CAD, CABG. Aspiration pneumonia. Respiratory failure. History of recurrent infection. Right now patient is having severe multidrug-resistant Klebsiella. On Colistin. We will continue the current treatment. We will follow-up the patient Objective - Vital Signs/Intake and Output Vital Signs (last 24 hours): Temp Pulse Resp BP Pulse Ox 98.0 F 109 H 20 144/81 100 07/26/18 08:27 07/26/18 08:27 07/26/18 08:27 07/26/18 11:00 07/26/18 08:27 Intake and Output: 07/26/18 07/26/18 06:59 18:59 Intake Total 2340 Output Total 1550 Balance 790 - Medications Medications: Current Medications Acetaminophen (Tylenol 650 Mg Supp) 650 mg [place] Q6 PRN PRN Reason: Fever >100.4 F Last Admin: 07/18/18 07:37 Dose: 650 mg Albuterol/Ipratropium (Duoneb 3 Mg/0.5 Mg (3 Ml) Ud) 3 ml INH RQ6 [facility] Last Admin: 07/26/18 08:30 Dose: Not Given Diltiazem HCl (Cardizem) 30 mg PO QID [facility] Last Admin: 07/26/18 11:00 Dose: 30 mg Colistimethate Sodium 100 mg/ (Sodium Chloride) 100 mls @ 200 mls/hr IV Q36H [facility]; Protocol Last Admin: 07/25/18 02:30 Dose: 200 mls/hr Insulin Glargine (Lantus) 30 unit SC DAILY [facility] Last Admin: 07/26/18 10:58 Dose: 30 units Insulin Human Regular (Novolin R) 0 unit SC Q6 [facility]; Protocol Last Admin: 07/26/18 12:20 Dose: 4 units Metoprolol Tartrate (Lopressor) 25 mg PO BID [facility] Last Admin: 07/26/18 11:00 Dose: 25 mg Neomycin/Polymyxin/Bacitracin (Neosporin Triple Antibiotic Oint) 1 gm TOP DAILY [facility] Last Admin: 07/26/18 11:00 Dose: 1 applic Nystatin (Nystop Topical Powder) 1 applic TOP BID [facility] Last Admin: 07/26/18 11:00 Dose: 1 applic Pantoprazole Sodium (Protonix Susp) 40 mg PO 0600 [facility] Last Admin: 07/26/18 06:01 Dose: 40 mg Rosuvastatin Calcium (Crestor) 10 mg PO HS [facility] Last Admin: 07/24/18 21:47 Dose: 10 mg - Labs Labs: 07/24/18 07:19 07/24/18 07:19
--- NOTE | 2018-07-26 20:42 | CP.PCM.PN ---
Subjective - Date & Time of Evaluation Date of Evaluation: 07/26/18 Time of Evaluation: 20:42 - Subjective Subjective: AFEBRILE, LETHARGIC , OPENS EYES ON NAME. LABS REVIEWED: WBC 12.3 IMPROVING ALL REPEAT CULTURES -VE Objective - Vital Signs/Intake and Output Vital Signs (last 24 hours): Temp Pulse Resp BP Pulse Ox 97.7 F 96 H 20 103/64 99 07/26/18 15:00 07/26/18 15:00 07/26/18 15:00 07/26/18 17:26 07/26/18 15:00 Intake and Output: 07/26/18 07/27/18 18:59 06:59 Intake Total 620 Output Total 1600 Balance -980 - Medications Medications: Current Medications Acetaminophen (Tylenol 650 Mg Supp) 650 mg [place] Q6 PRN PRN Reason: Fever >100.4 F Last Admin: 07/18/18 07:37 Dose: 650 mg Albuterol/Ipratropium (Duoneb 3 Mg/0.5 Mg (3 Ml) Ud) 3 ml INH RQ6 [facility] Last Admin: 07/26/18 19:49 Dose: 3 ml Diltiazem HCl (Cardizem) 30 mg PO QID [facility] Last Admin: 07/26/18 17:26 Dose: Not Given Colistimethate Sodium 100 mg/ (Sodium Chloride) 100 mls @ 200 mls/hr IV Q36H [facility]; Protocol Last Admin: 07/26/18 14:23 Dose: 200 mls/hr Insulin Glargine (Lantus) 30 unit SC DAILY [facility] Last Admin: 07/26/18 10:58 Dose: 30 units Insulin Human Regular (Novolin R) 0 unit SC Q6 [facility]; Protocol Last Admin: 07/26/18 17:26 Dose: 2 units Metoprolol Tartrate (Lopressor) 25 mg PO BID [facility] Last Admin: 07/26/18 17:26 Dose: Not Given Neomycin/Polymyxin/Bacitracin (Neosporin Triple Antibiotic Oint) 1 gm TOP DAILY [facility] Last Admin: 07/26/18 11:00 Dose: 1 applic Nystatin (Nystop Topical Powder) 1 applic TOP BID [facility] Last Admin: 07/26/18 17:27 Dose: 1 applic Pantoprazole Sodium (Protonix Susp) 40 mg PO 0600 [facility] Last Admin: 07/26/18 06:01 Dose: 40 mg Rosuvastatin Calcium (Crestor) 10 mg PO HS [facility] Last Admin: 07/24/18 21:47 Dose: 10 mg - Labs Labs: 07/24/18 07:19 07/24/18 07:19 - Constitutional Appears: No Acute Distress, Chronically Ill - Head Exam Head Exam: NORMAL INSPECTION - Eye Exam Eye Exam: EOMI, PERRL - ENT Exam ENT Exam: Normal Oropharynx - Neck Exam Neck Exam: Normal Inspection - Respiratory Exam Respiratory Exam: Decreased Breath Sounds - Cardiovascular Exam Cardiovascular Exam: REGULAR RHYTHM, +S1, +S2 - GI/Abdominal Exam GI & Abdominal Exam: Soft, Normal Bowel Sounds (PEG IN PLACE . RASH IMPROVINGAROUND PEG SITE) - Extremities Exam Extremities Exam: absent: Calf Tenderness, Pedal Edema - Neurological Exam Neurological Exam: Altered, Awake - Psychiatric Exam Psychiatric exam: Flat Affect - Skin Skin Exam: Normal Color, Warm Assessment and Plan (1) UTI (urinary tract infection) Status: Acute (2) Infection of gastrostomy site Status: Acute (3) Leukocytosis Status: Acute (4) Diabetes Status: Chronic (5) Hx of CABG Status: Acute - Assessment and Plan (Free Text) Plan: ON IV COLISTIN 100 MG IVPB Q 36HRLYT INFUSE OVER IN 90MIN.07/19/18 TILL 07/29/18 IV SOLUMEDROL 40MG IV [id number]. TAPER PER PMD SLOWLY. TOPICAL NYSTATIN POWDER PER ORDER LWC PER WOUND CARE.
[2018-07-27] MEDS: (Novolin R) Insulin Human Regular 100 units/ml vial SC SCH ×4 (00:26→18:01)
[2018-07-27] MEDS: Albuterol-Ipratrop 3 mg / 0.5 (3 ml) UD INH SCH ×5 (01:35→20:05)
[2018-07-27] MEDS: Pantoprazole 40 mg Susp UD PO SCH (05:26)
[2018-07-27 07:08] LABS: BASO # 0.1 K/uL (0.0-0.2); EOS # 0.3 K/uL (0.0-0.7); EOS % 2.8 % (0.0-4.0); HEMOGLOBIN 8.4 g/dL (11.0-16.0); LYMPH # 2.3 K/uL (1.0-4.3); LYMPH % 21.9 % (20.0-40.0); MEAN CELL VOLUME 97.3 fL (81.0-99.0); MEAN CORPUSCULAR HEMOGLOBIN 32.6 pg (27.0-31.0); MEAN CORPUSCULAR HGB CONC 33.5 g/dL (33.0-37.0); MEAN PLATELET VOLUME 8.2 fL (7.2-11.7); NEUT # 6.7 K/uL (1.8-7.0); NEUT % 64.3 % (50.0-75.0); NRBC % 0.3 % (0.0-2.0); RBC 2.57 Mil/uL (3.80-5.20); RED CELL DISTRIBUTION WIDTH 16.2 % (11.5-14.5); WHITE BLOOD COUNT 10.3 K/uL (4.8-10.8)
[2018-07-27 07:21] LABS: ALB/GLOB RATIO 1.2 (1.0-2.1); ALBUMIN 3.5 g/dL (3.5-5.0); ALT/SGPT 16 U/L (9-52); AST/SGOT 18 U/L (14-36); BLOOD UREA NITROGEN 21 mg/dL (7-17); CALCIUM 9.7 mg/dl (8.6-10.4); GFR NON-AFRICAN AMERICAN > 60
[2018-07-27] MEDS: (Lantus) Insulin Glargine, Recombinant SC SCH (10:55)
[2018-07-27] MEDS: Bacitracin/Neomycin/Polymyxin Oint(30GM) TOP SCH (12:11)
--- NOTE | 2018-07-27 20:12 | CP.PCM.PN ---
Subjective - Date & Time of Evaluation Date of Evaluation: 07/27/18 Time of Evaluation: 20:12 - Subjective Subjective: afebrile VSS NAEO COMFORTABLE AROUSABLE, ATTENTION SPAN VERY SHORT, LABS REVIEWED IMPROVING Objective - Vital Signs/Intake and Output Vital Signs (last 24 hours): Temp Pulse Resp BP Pulse Ox 98.2 F 89 20 127/71 98 07/27/18 15:35 07/27/18 15:35 07/27/18 15:35 07/27/18 17:50 07/27/18 15:35 Intake and Output: 07/27/18 07/28/18 18:59 06:59 Output Total 300 Balance -300 - Medications Medications: Current Medications Acetaminophen (Tylenol 650 Mg Supp) 650 mg [place] Q6 PRN PRN Reason: Fever >100.4 F Last Admin: 07/18/18 07:37 Dose: 650 mg Albuterol/Ipratropium (Duoneb 3 Mg/0.5 Mg (3 Ml) Ud) 3 ml INH RQ6 [facility] Last Admin: 07/27/18 20:05 Dose: 3 ml Diltiazem HCl (Cardizem) 30 mg PO QID [facility] Last Admin: 07/27/18 17:52 Dose: 30 mg Colistimethate Sodium 100 mg/ (Sodium Chloride) 100 mls @ 200 mls/hr IV Q36H [facility]; Protocol Last Admin: 07/26/18 14:23 Dose: 200 mls/hr Insulin Glargine (Lantus) 30 unit SC DAILY [facility] Last Admin: 07/27/18 10:55 Dose: 30 units Insulin Human Regular (Novolin R) 0 unit SC Q6 [facility]; Protocol Last Admin: 07/27/18 18:01 Dose: 2 units Metoprolol Tartrate (Lopressor) 25 mg PO BID [facility] Last Admin: 07/27/18 17:50 Dose: 25 mg Neomycin/Polymyxin/Bacitracin (Neosporin Triple Antibiotic Oint) 1 gm TOP DAILY [facility] Last Admin: 07/27/18 12:11 Dose: 1 applic Nystatin (Nystop Topical Powder) 1 applic TOP BID [facility] Last Admin: 07/27/18 17:52 Dose: 1 applic Pantoprazole Sodium (Protonix Susp) 40 mg PO 0600 [facility] Last Admin: 07/27/18 05:26 Dose: 40 mg Rosuvastatin Calcium (Crestor) 10 mg PO HS [facility] Last Admin: 07/26/18 22:31 Dose: 10 mg - Labs Labs: 07/27/18 07:02 07/27/18 07:02 - Constitutional Appears: No Acute Distress, Chronically Ill - Head Exam Head Exam: NORMAL INSPECTION - Eye Exam Eye Exam: EOMI, PERRL. absent: Scleral icterus - ENT Exam ENT Exam: Normal Oropharynx - Neck Exam Neck Exam: Normal Inspection - Respiratory Exam Respiratory Exam: Decreased Breath Sounds, NORMAL BREATHING PATTERN - Cardiovascular Exam Cardiovascular Exam: Tachycardia, REGULAR RHYTHM, +S1, +S2 - GI/Abdominal Exam GI & Abdominal Exam: Soft, Normal Bowel Sounds (PEG IN PLACE , EXIT SITE HEALINGAND DRYING UP.) - Extremities Exam Extremities Exam: Normal Capillary Refill. absent: Calf Tenderness, Pedal Edema - Neurological Exam Neurological Exam: Awake, CN II-XII Intact - Psychiatric Exam Psychiatric exam: Flat Affect - Skin Skin Exam: Normal Color, Warm Assessment and Plan (1) UTI (urinary tract infection) Status: Acute (2) Infection of gastrostomy site Status: Acute (3) Leukocytosis Status: Acute (4) Diabetes Status: Chronic (5) Hx of CABG Status: Acute - Assessment and Plan (Free Text) Plan: ON IV COLISTIN 100 MG IVPB Q 36HRLYT INFUSE OVER IN 90MIN.07/19/18 TILL 07/29/18 IV SOLUMEDROL 40MG IV [id number]. TAPER PER PMD SLOWLY. TOPICAL NYSTATIN POWDER PER ORDER LWC PER WOUND CARE.
[2018-07-28] MEDS: Albuterol-Ipratrop 3 mg / 0.5 (3 ml) UD INH SCH ×4 (01:40→20:28)
[2018-07-28] MEDS: (Novolin R) Insulin Human Regular 100 units/ml vial SC SCH ×4 (06:02→18:28)
[2018-07-28] MEDS: Pantoprazole 40 mg Susp UD PO SCH (06:35)
--- NOTE | 2018-07-28 09:02 | CP.PCM.PN ---
Subjective - Date & Time of Evaluation Date of Evaluation: 07/28/18 Time of Evaluation: 09:00 - Subjective Subjective: Patient is now more awake and responding. She is not in any distress at this time. Tolerating the PEG tube feeding. The rash in the abdomen is improving markedly. On examination: Chest good air entry No wheezing noted, regular heart sounds noted. Abdomen soft. No edema Yesterday labs reviewed Nonspecific Currently patient is on colistin for intravenous antibiotic for the suspected multidrug resistant Klebsiella infection urinary tract infection. Seen by infectious disease. We will continue the antibiotic. Out of bed to chair. Discussed with the patient's daughter about the physical therapy, rehab, but having difficult time in times getting rehabilitation at this time. Meanwhile we will continue the current treatment Objective - Vital Signs/Intake and Output Vital Signs (last 24 hours): Temp Pulse Resp BP Pulse Ox 98.4 F 100 H 20 125/72 97 07/28/18 00:00 07/28/18 00:00 07/28/18 00:00 07/28/18 00:00 07/28/18 00:00 Intake and Output: 07/28/18 07/28/18 06:59 18:59 Intake Total 1240 Output Total 850 Balance 390 - Medications Medications: Current Medications Acetaminophen (Tylenol 650 Mg Supp) 650 mg [place] Q6 PRN PRN Reason: Fever >100.4 F Last Admin: 07/18/18 07:37 Dose: 650 mg Albuterol/Ipratropium (Duoneb 3 Mg/0.5 Mg (3 Ml) Ud) 3 ml INH RQ6 [facility] Last Admin: 07/28/18 07:22 Dose: 3 ml Diltiazem HCl (Cardizem) 30 mg PO QID [facility] Last Admin: 07/27/18 21:46 Dose: 30 mg Colistimethate Sodium 100 mg/ (Sodium Chloride) 100 mls @ 200 mls/hr IV Q36H [facility]; Protocol Last Admin: 07/28/18 02:02 Dose: 200 mls/hr Insulin Glargine (Lantus) 30 unit SC DAILY [facility] Last Admin: 07/27/18 10:55 Dose: 30 units Insulin Human Regular (Novolin R) 0 unit SC Q6 [facility]; Protocol Last Admin: 07/28/18 06:02 Dose: 6 units Metoprolol Tartrate (Lopressor) 25 mg PO BID [facility] Last Admin: 07/27/18 17:50 Dose: 25 mg Neomycin/Polymyxin/Bacitracin (Neosporin Triple Antibiotic Oint) 1 gm TOP DAILY [facility] Last Admin: 07/27/18 12:11 Dose: 1 applic Nystatin (Nystop Topical Powder) 1 applic TOP BID [facility] Last Admin: 07/27/18 17:52 Dose: 1 applic Pantoprazole Sodium (Protonix Susp) 40 mg PO 0600 [facility] Last Admin: 07/28/18 06:35 Dose: 40 mg Rosuvastatin Calcium (Crestor) 10 mg PO HS [facility] Last Admin: 07/27/18 21:46 Dose: 10 mg - Labs Labs: 07/27/18 07:02 07/27/18 07:02
[2018-07-28] MEDS: (Lantus) Insulin Glargine, Recombinant SC SCH (11:06)
[2018-07-28] MEDS: Bacitracin/Neomycin/Polymyxin Oint(30GM) TOP SCH (11:07)
--- NOTE | 2018-07-28 23:56 | CP.PCM.PN ---
Subjective - Date & Time of Evaluation Date of Evaluation: 07/28/18 Time of Evaluation: 23:56 - Subjective Subjective: afebrile VSS NAEO, MORE AWAKE COMFORTABLE RT. PICC LINE -OK on iv colistin for MDR KLEBSIELLA PNEUMONIA. LABS REVIEWED. Objective - Vital Signs/Intake and Output Vital Signs (last 24 hours): Temp Pulse Resp BP Pulse Ox 99.3 F 86 20 109/63 99 07/28/18 16:51 07/28/18 16:51 07/28/18 16:51 07/28/18 18:32 07/28/18 16:51 - Medications Medications: Current Medications Acetaminophen (Tylenol 650 Mg Supp) 650 mg [place] Q6 PRN PRN Reason: Fever >100.4 F Last Admin: 07/18/18 07:37 Dose: 650 mg Albuterol/Ipratropium (Duoneb 3 Mg/0.5 Mg (3 Ml) Ud) 3 ml INH RQ6 [facility] Last Admin: 07/28/18 20:28 Dose: 3 ml Diltiazem HCl (Cardizem) 30 mg PO QID [facility] Last Admin: 07/28/18 21:47 Dose: 30 mg Colistimethate Sodium 100 mg/ (Sodium Chloride) 100 mls @ 200 mls/hr IV Q36H [facility]; Protocol Last Admin: 07/28/18 02:02 Dose: 200 mls/hr Insulin Glargine (Lantus) 30 unit SC DAILY [facility] Last Admin: 07/28/18 11:06 Dose: 30 units Insulin Human Regular (Novolin R) 0 unit SC Q6 [facility]; Protocol Last Admin: 07/28/18 18:28 Dose: 4 units Metoprolol Tartrate (Lopressor) 25 mg PO BID [facility] Last Admin: 07/28/18 18:32 Dose: 25 mg Neomycin/Polymyxin/Bacitracin (Neosporin Triple Antibiotic Oint) 1 gm TOP DAILY [facility] Last Admin: 07/28/18 11:07 Dose: 1 applic Nystatin (Nystop Topical Powder) 1 applic TOP BID [facility] Last Admin: 07/28/18 18:45 Dose: 1 applic Pantoprazole Sodium (Protonix Susp) 40 mg PO 0600 [facility] Last Admin: 07/28/18 06:35 Dose: 40 mg Rosuvastatin Calcium (Crestor) 10 mg PO HS [facility] Last Admin: 07/28/18 21:47 Dose: 10 mg - Labs Labs: 07/27/18 07:02 07/27/18 07:02 - Constitutional Appears: No Acute Distress, Confused, Chronically Ill - Head Exam Head Exam: NORMAL INSPECTION - Eye Exam Eye Exam: EOMI, PERRL. absent: Scleral icterus - ENT Exam ENT Exam: Mucous Membranes Moist - Respiratory Exam Respiratory Exam: Clear to Ausculation Bilateral, NORMAL BREATHING PATTERN - Cardiovascular Exam Cardiovascular Exam: REGULAR RHYTHM, +S1, +S2 - GI/Abdominal Exam GI & Abdominal Exam: Soft, Normal Bowel Sounds (PEG SITE RASH IMPROVING) - Extremities Exam Extremities Exam: Normal Capillary Refill. absent: Calf Tenderness - Neurological Exam Neurological Exam: Awake, CN II-XII Intact - Psychiatric Exam Psychiatric exam: Flat Affect, Normal Mood - Skin Skin Exam: Normal Color, Warm Assessment and Plan (1) UTI (urinary tract infection) Status: Acute (2) Infection of gastrostomy site Status: Acute (3) Leukocytosis Status: Acute (4) Diabetes Status: Chronic (5) Hx of CABG Status: Acute - Assessment and Plan (Free Text) Plan: ON IV COLISTIN 100 MG IVPB Q 36HRLYT INFUSE OVER IN 90MIN.07/19/18 TILL 07/29/18 OFF IV STEROIDS. PT AT BEDSIDE. TOPICAL NYSTATIN POWDER PER ORDER LWC PER WOUND CARE.
[2018-07-29] MEDS: (Novolin R) Insulin Human Regular 100 units/ml vial SC SCH ×4 (00:26→17:39)
[2018-07-29] MEDS: Pantoprazole 40 mg Susp UD PO SCH (06:05)
[2018-07-29] MEDS: Albuterol-Ipratrop 3 mg / 0.5 (3 ml) UD INH SCH ×3 (08:00→20:43)
[2018-07-29 08:32] VITALS: RESP 20
[2018-07-29] MEDS: Bacitracin/Neomycin/Polymyxin Oint(30GM) TOP SCH (10:10)
[2018-07-29] MEDS: (Lantus) Insulin Glargine, Recombinant SC SCH (10:10)
--- NOTE | 2018-07-29 23:52 | CP.PCM.PN ---
Subjective - Date & Time of Evaluation Date of Evaluation: 07/29/18 Time of Evaluation: 23:52 - Subjective Subjective: Patient is awake and responding sitting up. Responding to commands. Mild respiratory tachypnea noted. Vital signs stable. Currently on colistin antibiotic for multidrug-resistant Klebsiella UTI. We will continue the treatment. Objective - Vital Signs/Intake and Output Vital Signs (last 24 hours): Temp Pulse Resp BP Pulse Ox 98.3 F 102 H 20 124/70 98 07/29/18 23:33 07/29/18 23:33 07/29/18 23:33 07/29/18 23:33 07/29/18 23:33 - Medications Medications: Current Medications Acetaminophen (Tylenol 650 Mg Supp) 650 mg AR Q6 PRN PRN Reason: Fever >100.4 F Last Admin: 07/18/18 07:37 Dose: 650 mg Albuterol/Ipratropium (Duoneb 3 Mg/0.5 Mg (3 Ml) Ud) 3 ml INH RQ6 [facility] Last Admin: 07/29/18 20:43 Dose: 3 ml Diltiazem HCl (Cardizem) 30 mg PO QID [facility] Last Admin: 07/29/18 21:38 Dose: 30 mg Colistimethate Sodium 100 mg/ (Sodium Chloride) 100 mls @ 200 mls/hr IV Q36H [facility]; Protocol Last Admin: 07/29/18 13:46 Dose: 200 mls/hr Insulin Glargine (Lantus) 30 unit SC DAILY [facility] Last Admin: 07/29/18 10:10 Dose: 30 units Insulin Human Regular (Novolin R) 0 unit SC Q6 [facility]; Protocol Last Admin: 07/29/18 17:39 Dose: 2 units Metoprolol Tartrate (Lopressor) 25 mg PO BID [facility] Last Admin: 07/29/18 17:38 Dose: 25 mg Neomycin/Polymyxin/Bacitracin (Neosporin Triple Antibiotic Oint) 1 gm TOP DAILY [facility] Last Admin: 07/29/18 10:10 Dose: 1 applic Nystatin (Nystop Topical Powder) 1 applic TOP BID [facility] Last Admin: 07/29/18 17:39 Dose: 1 applic Pantoprazole Sodium (Protonix Susp) 40 mg PO 0600 [facility] Last Admin: 07/29/18 06:05 Dose: 40 mg Rosuvastatin Calcium (Crestor) 10 mg PO HS [facility] Last Admin: 07/29/18 21:38 Dose: 10 mg - Labs Labs: 07/27/18 07:02 07/27/18 07:02
[2018-07-30] MEDS: (Novolin R) Insulin Human Regular 100 units/ml vial SC SCH ×4 (00:53→17:29)
[2018-07-30] MEDS: Albuterol-Ipratrop 3 mg / 0.5 (3 ml) UD INH SCH ×4 (01:35→19:37)
[2018-07-30] MEDS: Pantoprazole 40 mg Susp UD PO SCH (05:20)
[2018-07-30] MEDS: Bacitracin/Neomycin/Polymyxin Oint(30GM) TOP SCH (11:08)
[2018-07-30] MEDS: (Lantus) Insulin Glargine, Recombinant SC SCH (11:14)
[2018-07-31] MEDS: (Novolin R) Insulin Human Regular 100 units/ml vial SC SCH ×4 (00:29→19:00)
[2018-07-31] MEDS: Albuterol-Ipratrop 3 mg / 0.5 (3 ml) UD INH SCH ×4 (01:35→20:19)
[2018-07-31] MEDS: Pantoprazole 40 mg Susp UD PO SCH (05:04)
[2018-07-31] MEDS: Bacitracin/Neomycin/Polymyxin Oint(30GM) TOP SCH (10:00)
[2018-07-31] MEDS: (Lantus) Insulin Glargine, Recombinant SC SCH (10:00)
--- NOTE | 2018-07-31 18:12 | CP.PCM.PN ---
Subjective - Date & Time of Evaluation Date of Evaluation: 07/31/18 Time of Evaluation: 18:12 - Subjective Subjective: COMFORTABLE NO COMPLAINTS . TACHCARDIAC RT. PICC LINE -OK on iv colistin for MDR KLEBSIELLA PNEUMONIA. LABS REVIEWED. Objective - Vital Signs/Intake and Output Vital Signs (last 24 hours): Temp Pulse Resp BP Pulse Ox 97.8 F 112 H 20 130/71 95 07/31/18 15:00 07/31/18 15:00 07/31/18 15:00 07/31/18 15:00 07/31/18 15:00 Intake and Output: 07/31/18 07/31/18 06:59 18:59 Intake Total 1040 Output Total 700 Balance 340 - Medications Medications: Current Medications Acetaminophen (Tylenol 650 Mg Supp) 650 mg [place] Q6 PRN PRN Reason: Fever >100.4 F Last Admin: 07/18/18 07:37 Dose: 650 mg Albuterol/Ipratropium (Duoneb 3 Mg/0.5 Mg (3 Ml) Ud) 3 ml INH RQ6 [facility] Last Admin: 07/31/18 13:25 Dose: 3 ml Diltiazem HCl (Cardizem) 30 mg PO QID [facility] Last Admin: 07/31/18 14:13 Dose: 30 mg Colistimethate Sodium 100 mg/ (Sodium Chloride) 100 mls @ 200 mls/hr IV Q36H [facility]; Protocol Last Admin: 07/31/18 01:58 Dose: 200 mls/hr Insulin Glargine (Lantus) 30 unit SC DAILY [facility] Last Admin: 07/31/18 10:00 Dose: 30 units Insulin Human Regular (Novolin R) 0 unit SC Q6 [facility]; Protocol Last Admin: 07/31/18 12:00 Dose: 6 units Meclizine HCl (Antivert) 12.5 mg PO BID PRN PRN Reason: Dizziness Metoprolol Tartrate (Lopressor) 25 mg PO BID [facility] Last Admin: 07/31/18 10:00 Dose: 25 mg Neomycin/Polymyxin/Bacitracin (Neosporin Triple Antibiotic Oint) 1 gm TOP DAILY [facility] Last Admin: 07/31/18 10:00 Dose: 1 applic Nystatin (Nystop Topical Powder) 1 applic TOP BID [facility] Last Admin: 07/31/18 10:00 Dose: 1 applic Pantoprazole Sodium (Protonix Susp) 40 mg PO 0600 [facility] Last Admin: 07/31/18 05:04 Dose: 40 mg Rosuvastatin Calcium (Crestor) 10 mg PO HS [facility] Last Admin: 07/30/18 22:02 Dose: 10 mg - Labs Labs: 07/27/18 07:02 07/27/18 07:02 - Constitutional Appears: No Acute Distress, Chronically Ill - Head Exam Head Exam: NORMAL INSPECTION - Eye Exam Eye Exam: EOMI, PERRL - ENT Exam ENT Exam: Normal Oropharynx - Neck Exam Neck Exam: Normal Inspection - Respiratory Exam Respiratory Exam: Decreased Breath Sounds - Cardiovascular Exam Cardiovascular Exam: Tachycardia, REGULAR RHYTHM, +S1, +S2 - GI/Abdominal Exam GI & Abdominal Exam: Soft, Normal Bowel Sounds (PEG IN PLACE . RASH IMPROVING AND DRYING ) - Extremities Exam Extremities Exam: Normal Capillary Refill. absent: Calf Tenderness, Pedal Edema - Neurological Exam Neurological Exam: Awake, CN II-XII Intact - Psychiatric Exam Psychiatric exam: Normal Affect - Skin Skin Exam: Normal Color, Warm Assessment and Plan (1) UTI (urinary tract infection) Status: Acute (2) Infection of gastrostomy site Status: Acute (3) Leukocytosis Status: Acute (4) Diabetes Status: Chronic (5) Hx of CABG Status: Acute - Assessment and Plan (Free Text) Plan: Assessment & Plan: Plan: ON IV COLISTIN 100 MG IVPB Q 36HRLYT INFUSE OVER IN 90MIN.07/19/18 R/O MEDS PT AT BEDSIDE. F/U CXR /BLOOD WORKS TOPICAL NYSTATIN POWDER PER ORDER [facility] PER WOUND CARE.
--- NOTE | 2018-07-31 23:34 | CP.PCM.PN ---
Subjective - Date & Time of Evaluation Date of Evaluation: 07/30/18 Time of Evaluation: 23:33 - Subjective Subjective: Patient is awake and responding. She is slightly comfortable today. Skinimproved Tolerating the feeding On antibiotic. Afebrile now. Discussed with the patient's daughter. Overall prognosis is very poor. Patient is admitted with the pneumonia. Patient with UTI Objective - Vital Signs/Intake and Output Vital Signs (last 24 hours): Temp Pulse Resp BP Pulse Ox 97.8 F 112 H 20 147/81 95 07/31/18 15:00 07/31/18 15:00 07/31/18 15:00 07/31/18 19:00 07/31/18 15:00 Intake and Output: 07/31/18 08/01/18 18:59 06:59 Intake Total 620 Output Total 200 Balance 420 - Medications Medications: Current Medications Acetaminophen (Tylenol 650 Mg Supp) 650 mg AR Q6 PRN PRN Reason: Fever >100.4 F Last Admin: 07/18/18 07:37 Dose: 650 mg Albuterol/Ipratropium (Duoneb 3 Mg/0.5 Mg (3 Ml) Ud) 3 ml INH RQ6 [facility] Last Admin: 07/31/18 20:19 Dose: 3 ml Diltiazem HCl (Cardizem) 30 mg PO QID [facility] Last Admin: 07/31/18 22:35 Dose: 30 mg Colistimethate Sodium 100 mg/ (Sodium Chloride) 100 mls @ 200 mls/hr IV Q36H [facility]; Protocol Last Admin: 07/31/18 01:58 Dose: 200 mls/hr Insulin Glargine (Lantus) 30 unit SC DAILY [facility] Last Admin: 07/31/18 10:00 Dose: 30 units Insulin Human Regular (Novolin R) 0 unit SC Q6 [facility]; Protocol Last Admin: 07/31/18 19:00 Dose: 4 units Meclizine HCl (Antivert) 12.5 mg PO BID PRN PRN Reason: Dizziness Metoprolol Tartrate (Lopressor) 50 mg PO BID [facility] Neomycin/Polymyxin/Bacitracin (Neosporin Triple Antibiotic Oint) 1 gm TOP DAILY [facility] Last Admin: 07/31/18 10:00 Dose: 1 applic Nystatin (Nystop Topical Powder) 1 applic TOP BID [facility] Last Admin: 07/31/18 18:59 Dose: 1 applic Pantoprazole Sodium (Protonix Susp) 40 mg PO 0600 [facility] Last Admin: 07/31/18 05:04 Dose: 40 mg Rosuvastatin Calcium (Crestor) 10 mg PO HS [facility] Last Admin: 07/31/18 22:34 Dose: 10 mg - Labs Labs: 07/27/18 07:02 07/27/18 07:02
--- NOTE | 2018-07-31 23:35 | CP.PCM.PN ---
Subjective - Date & Time of Evaluation Date of Evaluation: 07/31/18 Time of Evaluation: 23:34 - Subjective Subjective: This morning patient was sitting up. Patient's daughter at bedside. I spoke to her in detail. She is awake and responding. But having some tachypnea. Chest x-ray was ordered today. The report is currently pending. Currently patient is receiving intravenous colistin for multidrug-resistant Klebsiella UTI. Mild tachycardia noted. I recommended to increase metoprolol to 50 mg twice a day. Receiving the feeding with the PEG tube without any problems. Glucose is also controlled well. Patient is having trouble in getting the antibiotic as an outpatient. Overall prognosis is poor Objective - Vital Signs/Intake and Output Vital Signs (last 24 hours): Temp Pulse Resp BP Pulse Ox 97.8 F 112 H 20 147/81 95 07/31/18 15:00 07/31/18 15:00 07/31/18 15:00 07/31/18 19:00 07/31/18 15:00 Intake and Output: 07/31/18 08/01/18 18:59 06:59 Intake Total 620 Output Total 200 Balance 420 - Medications Medications: Current Medications Acetaminophen (Tylenol 650 Mg Supp) 650 mg IN Q6 PRN PRN Reason: Fever >100.4 F Last Admin: 07/18/18 07:37 Dose: 650 mg Albuterol/Ipratropium (Duoneb 3 Mg/0.5 Mg (3 Ml) Ud) 3 ml INH RQ6 [facility] Last Admin: 07/31/18 20:19 Dose: 3 ml Diltiazem HCl (Cardizem) 30 mg PO QID [facility] Last Admin: 07/31/18 22:35 Dose: 30 mg Colistimethate Sodium 100 mg/ (Sodium Chloride) 100 mls @ 200 mls/hr IV Q36H [facility]; Protocol Last Admin: 07/31/18 01:58 Dose: 200 mls/hr Insulin Glargine (Lantus) 30 unit SC DAILY [facility] Last Admin: 07/31/18 10:00 Dose: 30 units Insulin Human Regular (Novolin R) 0 unit SC Q6 [facility]; Protocol Last Admin: 07/31/18 19:00 Dose: 4 units Meclizine HCl (Antivert) 12.5 mg PO BID PRN PRN Reason: Dizziness Metoprolol Tartrate (Lopressor) 50 mg PO BID [facility] Neomycin/Polymyxin/Bacitracin (Neosporin Triple Antibiotic Oint) 1 gm TOP DAILY [facility] Last Admin: 07/31/18 10:00 Dose: 1 applic Nystatin (Nystop Topical Powder) 1 applic TOP BID [facility] Last Admin: 07/31/18 18:59 Dose: 1 applic Pantoprazole Sodium (Protonix Susp) 40 mg PO 0600 [facility] Last Admin: 07/31/18 05:04 Dose: 40 mg Rosuvastatin Calcium (Crestor) 10 mg PO HS [facility] Last Admin: 07/31/18 22:34 Dose: 10 mg - Labs Labs: 07/27/18 07:02 07/27/18 07:02
--- NOTE | 2018-07-31 23:38 | CP.PCM.PN ---
Subjective - Date & Time of Evaluation Date of Evaluation: 07/31/18 Time of Evaluation: 22:09 - Subjective Subjective: Patient was sitting up. Daughter at bedside, I spoke to the daughter in detail. Currently patient need antibiotic we will continue the current treatment labs ordered, x-ray ordered will follow the patient Objective - Vital Signs/Intake and Output Vital Signs (last 24 hours): Temp Pulse Resp BP Pulse Ox 97.8 F 112 H 20 147/81 95 07/31/18 15:00 07/31/18 15:00 07/31/18 15:00 07/31/18 19:00 07/31/18 15:00 Intake and Output: 07/31/18 08/01/18 18:59 06:59 Intake Total 620 Output Total 200 Balance 420 - Medications Medications: Current Medications Acetaminophen (Tylenol 650 Mg Supp) 650 mg [place] Q6 PRN PRN Reason: Fever >100.4 F Last Admin: 07/18/18 07:37 Dose: 650 mg Albuterol/Ipratropium (Duoneb 3 Mg/0.5 Mg (3 Ml) Ud) 3 ml INH RQ6 [facility] Last Admin: 07/31/18 20:19 Dose: 3 ml Diltiazem HCl (Cardizem) 30 mg PO QID [facility] Last Admin: 07/31/18 22:35 Dose: 30 mg Colistimethate Sodium 100 mg/ (Sodium Chloride) 100 mls @ 200 mls/hr IV Q36H [facility]; Protocol Last Admin: 07/31/18 01:58 Dose: 200 mls/hr Insulin Glargine (Lantus) 30 unit SC DAILY [facility] Last Admin: 07/31/18 10:00 Dose: 30 units Insulin Human Regular (Novolin R) 0 unit SC Q6 [facility]; Protocol Last Admin: 07/31/18 19:00 Dose: 4 units Meclizine HCl (Antivert) 12.5 mg PO BID PRN PRN Reason: Dizziness Metoprolol Tartrate (Lopressor) 50 mg PO BID [facility] Neomycin/Polymyxin/Bacitracin (Neosporin Triple Antibiotic Oint) 1 gm TOP DAILY [facility] Last Admin: 07/31/18 10:00 Dose: 1 applic Nystatin (Nystop Topical Powder) 1 applic TOP BID [facility] Last Admin: 07/31/18 18:59 Dose: 1 applic Pantoprazole Sodium (Protonix Susp) 40 mg PO 0600 [facility] Last Admin: 07/31/18 05:04 Dose: 40 mg Rosuvastatin Calcium (Crestor) 10 mg PO HS [facility] Last Admin: 07/31/18 22:34 Dose: 10 mg - Labs Labs: 07/27/18 07:02 07/27/18 07:02
[2018-08-01] MEDS: Albuterol-Ipratrop 3 mg / 0.5 (3 ml) UD INH SCH ×4 (02:00→19:30)
[2018-08-01] MEDS: (Novolin R) Insulin Human Regular 100 units/ml vial SC SCH ×4 (06:05→18:43)
[2018-08-01 08:49] LABS: BASO # 0.1 K/uL (0.0-0.2); EOS # 0.5 K/uL (0.0-0.7); EOS % 4.8 % (0.0-4.0); HEMOGLOBIN 9.5 g/dL (11.0-16.0); LYMPH % 17.3 % (20.0-40.0); MEAN CELL VOLUME 97.5 fL (81.0-99.0); MEAN CORPUSCULAR HEMOGLOBIN 32.4 pg (27.0-31.0); MEAN CORPUSCULAR HGB CONC 33.3 g/dL (33.0-37.0); MEAN PLATELET VOLUME 7.7 fL (7.2-11.7); MONO # 0.9 K/uL (0.0-0.8); MONO % 7.8 % (0.0-10.0); NEUT # 7.8 K/uL (1.8-7.0); NEUT % 69.1 % (50.0-75.0); NRBC % 0.1 % (0.0-2.0); RBC 2.92 Mil/uL (3.80-5.20); RED CELL DISTRIBUTION WIDTH 16.3 % (11.5-14.5); WHITE BLOOD COUNT 11.3 K/uL (4.8-10.8)
[2018-08-01 08:51] LABS: BLOOD UREA NITROGEN 35 mg/dL (7-17); GFR NON-AFRICAN AMERICAN > 60
[2018-08-01 08:52] LABS: ALB/GLOB RATIO 1.3 (1.0-2.1); ALT/SGPT 20 U/L (9-52); AST/SGOT 23 U/L (14-36); CALCIUM 10.4 mg/dl (8.6-10.4)
[2018-08-01] MEDS: (Lantus) Insulin Glargine, Recombinant SC SCH (09:25)
[2018-08-01] MEDS: Bacitracin/Neomycin/Polymyxin Oint(30GM) TOP SCH (09:25)
--- NOTE | 2018-08-01 11:50 | RAD ---
HISTORY: congestion COMPARISON: Chest x-ray performed 07/18/18 TECHNIQUE: Chest, one view. FINDINGS: Examination limited by habitus, hypoinflation, and patient obliquity. LUNGS: Perihilar interstitial markings appear prominent as on prior study. Mild pulmonary venous congestion versus vascular crowding due to hypoinflation. PLEURA: No significant pleural effusion identified. No definite pneumothorax . CARDIOVASCULAR: Median sternotomy wires. Heart size appears within normal limits. Ectatic aorta. Atherosclerotic calcifications. Single lead left-sided pacemaker. OSSEOUS STRUCTURES: Degenerative changes. Scoliosis convex the left. Osseous demineralization. Acromioclavicular arthropathy. VISUALIZED UPPER ABDOMEN: Unremarkable. OTHER FINDINGS: None. IMPRESSION: Perihilar interstitial markings appear prominent as on prior study. Mild pulmonary venous congestion versus vascular crowding due to hypoinflation.
--- NOTE | 2018-08-01 20:38 | CP.PCM.PN ---
Subjective - Date & Time of Evaluation Date of Evaluation: 08/01/18 Time of Evaluation: 20:37 - Subjective Subjective: afebrile. arousable. WEAK, SLEEPY MOST OF THE TIME, NO RESP. DISTRESS. TACHYCARDIAC. RT ARM PICC LINE INTACT. LABS REVIEWED; WBC 11.3 CREAT 0.8/BUN 35 LFTS N BLOOD CULTURES 07/18/18 -VE GROWTH TO DATE URINE CULTURE 07/18/18 -VE GROWTH. PLAN ON IV COLISTIN 100MG IV Q 36HRLY. Objective - Vital Signs/Intake and Output Vital Signs (last 24 hours): Temp Pulse Resp BP Pulse Ox 97.6 F 110 H 20 116/68 95 08/01/18 17:08 08/01/18 17:08 08/01/18 17:08 08/01/18 17:47 08/01/18 17:08 Intake and Output: 08/01/18 08/02/18 18:59 06:59 Intake Total 500 Balance 500 - Medications Medications: Current Medications Acetaminophen (Tylenol 650 Mg Supp) 650 mg [place] Q6 PRN PRN Reason: Fever >100.4 F Last Admin: 07/18/18 07:37 Dose: 650 mg Albuterol/Ipratropium (Duoneb 3 Mg/0.5 Mg (3 Ml) Ud) 3 ml INH RQ6 [facility] Last Admin: 08/01/18 19:30 Dose: Not Given Diltiazem HCl (Cardizem) 30 mg PO QID [facility] Last Admin: 08/01/18 17:42 Dose: 30 mg Colistimethate Sodium 100 mg/ (Sodium Chloride) 100 mls @ 200 mls/hr IV Q36H [facility]; Protocol Last Admin: 08/01/18 13:39 Dose: 200 mls/hr Insulin Glargine (Lantus) 30 unit SC DAILY [facility] Last Admin: 08/01/18 09:25 Dose: 30 units Insulin Human Regular (Novolin R) 0 unit SC Q6 [facility]; Protocol Last Admin: 08/01/18 18:43 Dose: 4 units Meclizine HCl (Antivert) 12.5 mg PO BID PRN PRN Reason: Dizziness Last Admin: 08/01/18 17:42 Dose: 12.5 mg Metoprolol Tartrate (Lopressor) 50 mg PO BID [facility] Last Admin: 08/01/18 17:47 Dose: 50 mg Neomycin/Polymyxin/Bacitracin (Neosporin Triple Antibiotic Oint) 1 gm TOP DAILY [facility] Last Admin: 08/01/18 09:25 Dose: 1 applic Nystatin (Nystop Topical Powder) 1 applic TOP BID [facility] Last Admin: 08/01/18 17:47 Dose: 1 applic Pantoprazole Sodium (Protonix Susp) 40 mg PO 0600 [facility] Last Admin: 07/31/18 05:04 Dose: 40 mg Rosuvastatin Calcium (Crestor) 10 mg PO HS [facility] Last Admin: 07/31/18 22:34 Dose: 10 mg - Labs Labs: 08/01/18 08:31 08/01/18 08:31 - Constitutional Appears: No Acute Distress, Chronically Ill - Head Exam Head Exam: NORMAL INSPECTION - Eye Exam Eye Exam: EOMI, PERRL - ENT Exam ENT Exam: Normal Oropharynx - Neck Exam Neck Exam: Normal Inspection - Respiratory Exam Respiratory Exam: Decreased Breath Sounds, NORMAL BREATHING PATTERN - Cardiovascular Exam Cardiovascular Exam: Tachycardia, REGULAR RHYTHM, +S1, +S2 - GI/Abdominal Exam GI & Abdominal Exam: Soft, Normal Bowel Sounds (PEG IN PLACE . RASH EXIT SITE IMPROVING .) - Extremities Exam Extremities Exam: Pedal Edema. absent: Calf Tenderness - Neurological Exam Neurological Exam: Altered, Awake, CN II-XII Intact - Psychiatric Exam Psychiatric exam: Flat Affect, Normal Affect - Skin Skin Exam: Normal Color, Warm Assessment and Plan (1) UTI (urinary tract infection) Status: Acute (2) Infection of gastrostomy site Status: Acute (3) Leukocytosis Status: Acute (4) Diabetes Status: Chronic (5) Hx of CABG Status: Acute - Assessment and Plan (Free Text) Plan: Plan: ON IV COLISTIN 100 MG IVPB Q 36HRLYT INFUSE OVER IN 90MIN.07/19/18 R/O MEDS PT AT BEDSIDE. TOPICAL NYSTATIN POWDER PER ORDER [facility] PER WOUND CARE.
--- NOTE | 2018-08-01 22:09 | CP.PCM.PN ---
Subjective - Date & Time of Evaluation Date of Evaluation: 08/01/18 Time of Evaluation: 22:07 - Subjective Subjective: Patient is morning feeling well. She was awake and responding. But weakness present Minimal cough noted. Labs reviewed nonspecific Chest good air entry Minimal expiratory wheezing noted Labs reviewed Condition: 88-year-old female with a history of COPD, hypertension, CAD, congestive heart failure, admitted with septicemia. Now admitted with a multidrug-resistant Klebsiella urinary tract infection, on colistin. Patient is still very sick at this time, recommended physical therapy out of bed to chair. Tolerating the PEG tube feeding. Possibly patient needs to have rehab and antibiotic treatment Objective - Vital Signs/Intake and Output Vital Signs (last 24 hours): Temp Pulse Resp BP Pulse Ox 97.6 F 110 H 20 116/68 95 08/01/18 17:08 08/01/18 17:08 08/01/18 17:08 08/01/18 17:47 08/01/18 17:08 Intake and Output: 08/01/18 08/02/18 18:59 06:59 Intake Total 500 Balance 500 - Medications Medications: Current Medications Acetaminophen (Tylenol 650 Mg Supp) 650 mg [place] Q6 PRN PRN Reason: Fever >100.4 F Last Admin: 07/18/18 07:37 Dose: 650 mg Albuterol/Ipratropium (Duoneb 3 Mg/0.5 Mg (3 Ml) Ud) 3 ml INH RQ6 [facility] Last Admin: 08/01/18 19:30 Dose: Not Given Diltiazem HCl (Cardizem) 30 mg PO QID [facility] Last Admin: 08/01/18 21:59 Dose: Not Given Colistimethate Sodium 100 mg/ (Sodium Chloride) 100 mls @ 200 mls/hr IV Q36H [facility]; Protocol Last Admin: 08/01/18 13:39 Dose: 200 mls/hr Insulin Glargine (Lantus) 30 unit SC DAILY [facility] Last Admin: 08/01/18 09:25 Dose: 30 units Insulin Human Regular (Novolin R) 0 unit SC Q6 [facility]; Protocol Last Admin: 08/01/18 18:43 Dose: 4 units Meclizine HCl (Antivert) 12.5 mg PO BID PRN PRN Reason: Dizziness Last Admin: 08/01/18 17:42 Dose: 12.5 mg Metoprolol Tartrate (Lopressor) 50 mg PO BID [facility] Last Admin: 08/01/18 17:47 Dose: 50 mg Neomycin/Polymyxin/Bacitracin (Neosporin Triple Antibiotic Oint) 1 gm TOP DAILY [facility] Last Admin: 08/01/18 09:25 Dose: 1 applic Nystatin (Nystop Topical Powder) 1 applic TOP BID [facility] Last Admin: 08/01/18 17:47 Dose: 1 applic Pantoprazole Sodium (Protonix Susp) 40 mg PO 0600 [facility] Last Admin: 07/31/18 05:04 Dose: 40 mg Rosuvastatin Calcium (Crestor) 10 mg PO HS [facility] Last Admin: 08/01/18 21:57 Dose: 10 mg - Labs Labs: 08/01/18 08:31 08/01/18 08:31
[2018-08-02] MEDS: (Novolin R) Insulin Human Regular 100 units/ml vial SC SCH ×4 (00:19→18:00)
[2018-08-02] MEDS: Albuterol-Ipratrop 3 mg / 0.5 (3 ml) UD INH SCH ×3 (02:00→13:45)
[2018-08-02] MEDS: Pantoprazole 40 mg Susp UD PO SCH (06:00)
[2018-08-02] MEDS: Bacitracin/Neomycin/Polymyxin Oint(30GM) TOP SCH (09:53)
[2018-08-02] MEDS: (Lantus) Insulin Glargine, Recombinant SC SCH (09:53)
--- NOTE | 2018-08-02 10:12 | CP.PCM.PN ---
Subjective - Date & Time of Evaluation Date of Evaluation: 08/02/18 Time of Evaluation: 10:09 - Subjective Subjective: Patient is currently comfortable. Awake and responding. Not in any distress. Currently receiving colistin intravenously. Much more better than before. On examination: Vital signs stable. Chest good air entry regular HS nontender abdomen Patient has a Gregory catheter will remove the Gregory today And will continue the current treatment. Awaiting for possible clearance by the ID and discharge plan possibly to rehab if possible. If it is not the patient probably will need in-home discharge plan. Objective - Vital Signs/Intake and Output Vital Signs (last 24 hours): Temp Pulse Resp BP Pulse Ox 98 F 104 H 20 118/68 97 08/02/18 08:30 08/02/18 08:30 08/02/18 08:30 08/02/18 09:53 08/02/18 08:30 Intake and Output: 08/02/18 08/02/18 06:59 18:59 Intake Total 790 Output Total 600 Balance 190 - Medications Medications: Current Medications Acetaminophen (Tylenol 650 Mg Supp) 650 mg [place] Q6 PRN PRN Reason: Fever >100.4 F Last Admin: 07/18/18 07:37 Dose: 650 mg Albuterol/Ipratropium (Duoneb 3 Mg/0.5 Mg (3 Ml) Ud) 3 ml INH RQ6 [facility] Last Admin: 08/02/18 07:55 Dose: 3 ml Diltiazem HCl (Cardizem) 30 mg PO QID [facility] Last Admin: 08/02/18 09:53 Dose: 30 mg Colistimethate Sodium 100 mg/ (Sodium Chloride) 100 mls @ 200 mls/hr IV Q36H [facility]; Protocol Last Admin: 08/01/18 13:39 Dose: 200 mls/hr Insulin Glargine (Lantus) 30 unit SC DAILY [facility] Last Admin: 08/02/18 09:53 Dose: 30 units Insulin Human Regular (Novolin R) 0 unit SC Q6 [facility]; Protocol Last Admin: 08/02/18 06:30 Dose: 4 units Meclizine HCl (Antivert) 12.5 mg PO BID PRN PRN Reason: Dizziness Last Admin: 08/01/18 17:42 Dose: 12.5 mg Metoprolol Tartrate (Lopressor) 50 mg PO BID [facility] Last Admin: 08/02/18 09:53 Dose: 50 mg Neomycin/Polymyxin/Bacitracin (Neosporin Triple Antibiotic Oint) 1 gm TOP DAILY [facility] Last Admin: 08/02/18 09:53 Dose: 1 applic Nystatin (Nystop Topical Powder) 1 applic TOP BID [facility] Last Admin: 08/02/18 09:53 Dose: 1 applic Pantoprazole Sodium (Protonix Susp) 40 mg PO 0600 [facility] Last Admin: 08/02/18 06:00 Dose: 40 mg Rosuvastatin Calcium (Crestor) 10 mg PO HS [facility] Last Admin: 08/01/18 21:57 Dose: 10 mg - Labs Labs: 08/01/18 08:31 08/01/18 08:31
--- NOTE | 2018-08-02 20:01 | CP.PCM.PN ---
Subjective - Date & Time of Evaluation Date of Evaluation: 08/02/18 Time of Evaluation: 20:01 - Subjective Subjective: AFEBRILE. RESTING IN BED OPENS EYES ON NAME. RASH IMPROVED . LABS REVIEWED. Objective - Vital Signs/Intake and Output Vital Signs (last 24 hours): Temp Pulse Resp BP Pulse Ox 98.2 F 92 H 20 112/60 96 08/02/18 16:39 08/02/18 16:39 08/02/18 16:39 08/02/18 17:14 08/02/18 16:39 Intake and Output: 08/02/18 08/03/18 18:59 06:59 Intake Total 400 Output Total 200 Balance 200 - Medications Medications: Current Medications Acetaminophen (Tylenol 650 Mg Supp) 650 mg [place] Q6 PRN PRN Reason: Fever >100.4 F Last Admin: 07/18/18 07:37 Dose: 650 mg Albuterol/Ipratropium (Duoneb 3 Mg/0.5 Mg (3 Ml) Ud) 3 ml INH RQ6 [facility] Last Admin: 08/02/18 13:45 Dose: Not Given Diltiazem HCl (Cardizem) 30 mg PO QID [facility] Last Admin: 08/02/18 13:53 Dose: 30 mg Insulin Glargine (Lantus) 30 unit SC DAILY [facility] Last Admin: 08/02/18 09:53 Dose: 30 units Insulin Human Regular (Novolin R) 0 unit SC Q6 [facility]; Protocol Last Admin: 08/02/18 12:15 Dose: 4 units Meclizine HCl (Antivert) 12.5 mg PO BID PRN PRN Reason: Dizziness Last Admin: 08/01/18 17:42 Dose: 12.5 mg Metoprolol Tartrate (Lopressor) 50 mg PO BID [facility] Last Admin: 08/02/18 17:14 Dose: 50 mg Neomycin/Polymyxin/Bacitracin (Neosporin Triple Antibiotic Oint) 1 gm TOP DAILY [facility] Last Admin: 08/02/18 09:53 Dose: 1 applic Nystatin (Nystop Topical Powder) 1 applic TOP BID [facility] Last Admin: 08/02/18 17:13 Dose: 1 applic Pantoprazole Sodium (Protonix Susp) 40 mg PO 0600 [facility] Last Admin: 08/02/18 06:00 Dose: 40 mg Rosuvastatin Calcium (Crestor) 10 mg PO HS [facility] Last Admin: 08/01/18 21:57 Dose: 10 mg - Labs Labs: 08/01/18 08:31 08/01/18 08:31 - Constitutional Appears: No Acute Distress, Chronically Ill - Eye Exam Eye Exam: PERRL - ENT Exam ENT Exam: Normal Oropharynx - Neck Exam Neck Exam: Normal Inspection - Respiratory Exam Respiratory Exam: Clear to Ausculation Bilateral, NORMAL BREATHING PATTERN - Cardiovascular Exam Cardiovascular Exam: REGULAR RHYTHM, +S1, +S2 - GI/Abdominal Exam GI & Abdominal Exam: Soft, Normal Bowel Sounds (PEG SITE HEALED .) - Extremities Exam Extremities Exam: Pedal Edema. absent: Calf Tenderness - Neurological Exam Neurological Exam: Awake, CN II-XII Intact - Skin Skin Exam: Normal Color, Warm Assessment and Plan (1) UTI (urinary tract infection) Status: Acute (2) Infection of gastrostomy site Status: Acute (3) Leukocytosis Status: Acute (4) Diabetes Status: Chronic (5) Hx of CABG Status: Acute - Assessment and Plan (Free Text) Plan: PLAN; PT ON IV COLISTIN SINCE 07/19/18 - 08/02/18 ALL CULTURES -VE. DC IV COLISTIN AND OBSERVE OFF ABX X 24-36HRS.
[2018-08-03] MEDS: (Novolin R) Insulin Human Regular 100 units/ml vial SC SCH ×4 (00:45→18:00)
[2018-08-03] MEDS: Albuterol-Ipratrop 3 mg / 0.5 (3 ml) UD INH SCH ×4 (02:30→19:29)
[2018-08-03] MEDS: Pantoprazole 40 mg Susp UD PO SCH (06:00)
[2018-08-03] MEDS: Bacitracin/Neomycin/Polymyxin Oint(30GM) TOP SCH (10:01)
[2018-08-03] MEDS: (Lantus) Insulin Glargine, Recombinant SC SCH (10:01)
--- NOTE | 2018-08-03 23:10 | CP.PCM.PN ---
Subjective - Date & Time of Evaluation Date of Evaluation: 08/03/18 Time of Evaluation: 23:10 - Subjective Subjective: AFEBRILE, AAO,VSS RESTING COMFORTABLY. CLINICALLY IMPROVED OFFERS NO COMPLAINTS. OFF COLISTIN SINCE 08/02/18 OBSERVE X NEXT 24- 48HRS OFF ABX ALL CULTURES -VE TO DATE NOW. Objective - Vital Signs/Intake and Output Vital Signs (last 24 hours): Temp Pulse Resp BP Pulse Ox 97.9 F 108 H 20 128/69 99 08/03/18 16:46 08/03/18 16:46 08/03/18 16:46 08/03/18 17:29 08/03/18 16:46 Intake and Output: 08/03/18 08/04/18 18:59 06:59 Intake Total 470 Balance 470 - Medications Medications: Current Medications Acetaminophen (Tylenol 650 Mg Supp) 650 mg [place] Q6 PRN PRN Reason: Fever >100.4 F Last Admin: 07/18/18 07:37 Dose: 650 mg Albuterol/Ipratropium (Duoneb 3 Mg/0.5 Mg (3 Ml) Ud) 3 ml INH RQ6 [facility] Last Admin: 08/03/18 19:29 Dose: 3 ml Diltiazem HCl (Cardizem) 30 mg PO QID [facility] Last Admin: 08/03/18 21:34 Dose: 30 mg Insulin Glargine (Lantus) 30 unit SC DAILY [facility] Last Admin: 08/03/18 10:01 Dose: 30 units Insulin Human Regular (Novolin R) 0 unit SC Q6 [facility]; Protocol Last Admin: 08/03/18 18:00 Dose: 4 units Meclizine HCl (Antivert) 12.5 mg PO BID PRN PRN Reason: Dizziness Last Admin: 08/01/18 17:42 Dose: 12.5 mg Metoprolol Tartrate (Lopressor) 50 mg PO BID [facility] Last Admin: 08/03/18 17:29 Dose: 50 mg Neomycin/Polymyxin/Bacitracin (Neosporin Triple Antibiotic Oint) 1 gm TOP DAILY [facility] Last Admin: 08/03/18 10:01 Dose: 1 applic Nystatin (Nystop Topical Powder) 1 applic TOP BID [facility] Last Admin: 08/03/18 17:29 Dose: 1 applic Pantoprazole Sodium (Protonix Susp) 40 mg PO 0600 [facility] Last Admin: 08/02/18 06:00 Dose: 40 mg Rosuvastatin Calcium (Crestor) 10 mg PO HS [facility] Last Admin: 08/03/18 21:34 Dose: 10 mg - Labs Labs: 08/01/18 08:31 08/01/18 08:31 - Constitutional Appears: No Acute Distress, Chronically Ill - Head Exam Head Exam: NORMAL INSPECTION - Eye Exam Eye Exam: EOMI, Normal appearance, PERRL - ENT Exam ENT Exam: Normal Oropharynx - Neck Exam Neck Exam: Normal Inspection - Respiratory Exam Respiratory Exam: Clear to Ausculation Bilateral, NORMAL BREATHING PATTERN - Cardiovascular Exam Cardiovascular Exam: Tachycardia, REGULAR RHYTHM, +S1, +S2 - GI/Abdominal Exam GI & Abdominal Exam: Soft, Normal Bowel Sounds (PEG IN PLACE .) - Neurological Exam Neurological Exam: Awake, CN II-XII Intact - Psychiatric Exam Psychiatric exam: Normal Mood - Skin Skin Exam: Normal Color, Warm Assessment and Plan (1) UTI (urinary tract infection) Status: Acute (2) Infection of gastrostomy site Status: Acute (3) Leukocytosis Status: Acute (4) Diabetes Status: Chronic (5) Hx of CABG Status: Acute - Assessment and Plan (Free Text) Plan: PT ON IV COLISTIN SINCE 07/19/18 - 08/02/18 ALL CULTURES -VE. OBSERVE OFF IV COLISTIN FOR X 36 - 48HRS
--- NOTE | 2018-08-03 23:54 | CP.PCM.PN ---
Subjective - Date & Time of Evaluation Date of Evaluation: 08/03/18 Time of Evaluation: 23:54 - Subjective Subjective: Patient is more awake than yesterday. Not in any distress. Denies any fever. She is able to communicate. Currently off antibiotic. Observation for any fever. Chest clear Regular cardiac sounds noted Edema in the legs noted on the past. Assessment and recommendation: 88-year-old female with a history of advanced dementia. Hypertension diabetes CAD status post PEG. Respiratory insufficiency. History of recurrent pneumonia. Admitted to the hospital with septic shock and severe sepsis. Currently receiving colistin will observe for 48 hours and possible discharge plan after clearance by the ID. Objective - Vital Signs/Intake and Output Vital Signs (last 24 hours): Temp Pulse Resp BP Pulse Ox 97.8 F 89 20 131/68 100 08/03/18 23:43 08/03/18 23:43 08/03/18 23:43 08/03/18 23:43 08/03/18 23:43 Intake and Output: 08/03/18 08/04/18 18:59 06:59 Intake Total 470 Balance 470 - Medications Medications: Current Medications Acetaminophen (Tylenol 650 Mg Supp) 650 mg [place] Q6 PRN PRN Reason: Fever >100.4 F Last Admin: 07/18/18 07:37 Dose: 650 mg Albuterol/Ipratropium (Duoneb 3 Mg/0.5 Mg (3 Ml) Ud) 3 ml INH RQ6 [facility] Last Admin: 08/03/18 19:29 Dose: 3 ml Diltiazem HCl (Cardizem) 30 mg PO QID [facility] Last Admin: 08/03/18 21:34 Dose: 30 mg Insulin Glargine (Lantus) 30 unit SC DAILY [facility] Last Admin: 08/03/18 10:01 Dose: 30 units Insulin Human Regular (Novolin R) 0 unit SC Q6 [facility]; Protocol Last Admin: 08/03/18 18:00 Dose: 4 units Meclizine HCl (Antivert) 12.5 mg PO BID PRN PRN Reason: Dizziness Last Admin: 08/01/18 17:42 Dose: 12.5 mg Metoprolol Tartrate (Lopressor) 50 mg PO BID [facility] Last Admin: 08/03/18 17:29 Dose: 50 mg Neomycin/Polymyxin/Bacitracin (Neosporin Triple Antibiotic Oint) 1 gm TOP DAILY [facility] Last Admin: 08/03/18 10:01 Dose: 1 applic Nystatin (Nystop Topical Powder) 1 applic TOP BID [facility] Last Admin: 08/03/18 17:29 Dose: 1 applic Pantoprazole Sodium (Protonix Susp) 40 mg PO 0600 [facility] Last Admin: 08/02/18 06:00 Dose: 40 mg Rosuvastatin Calcium (Crestor) 10 mg PO HS [facility] Last Admin: 08/03/18 21:34 Dose: 10 mg - Labs Labs: 08/01/18 08:31 08/01/18 08:31
[2018-08-04] MEDS: Albuterol-Ipratrop 3 mg / 0.5 (3 ml) UD INH SCH ×4 (01:02→19:59)
[2018-08-04] MEDS: (Novolin R) Insulin Human Regular 100 units/ml vial SC SCH ×4 (05:45→19:15)
[2018-08-04] MEDS: Pantoprazole 40 mg Susp UD PO SCH ×2 (07:13→07:15)
--- NOTE | 2018-08-04 08:54 | CP.PCM.PN ---
Subjective - Date & Time of Evaluation Date of Evaluation: 08/04/18 Time of Evaluation: 08:54 - Subjective Subjective: Patient is more awake than yesterday. Not in any distress. Denies any fever. She is able to communicate. Currently off antibiotic. Observation for any fever. Chest clear Regular cardiac sounds noted Edema in the legs noted on the past. Assessment and recommendation: 88-year-old female with a history of advanced dementia. Hypertension diabetes CAD status post PEG. Respiratory insufficiency. History of recurrent pneumonia. Admitted to the hospital with septic shock and severe sepsis. Currently receiving colistin will observe for 24 hours and possible discharge plan after clearance by the ID. Objective - Vital Signs/Intake and Output Vital Signs (last 24 hours): Temp Pulse Resp BP Pulse Ox 97.6 F 110 H 20 166/80 H 100 08/04/18 07:41 08/04/18 07:41 08/04/18 07:41 08/04/18 07:41 08/04/18 07:41 Intake and Output: 08/04/18 08/04/18 06:59 18:59 Intake Total 620 Output Total 1 Balance 619 - Medications Medications: Current Medications Acetaminophen (Tylenol 650 Mg Supp) 650 mg [place] Q6 PRN PRN Reason: Fever >100.4 F Last Admin: 07/18/18 07:37 Dose: 650 mg Albuterol/Ipratropium (Duoneb 3 Mg/0.5 Mg (3 Ml) Ud) 3 ml INH RQ6 [facility] Last Admin: 08/04/18 01:02 Dose: Not Given Diltiazem HCl (Cardizem) 30 mg PO QID [facility] Last Admin: 08/03/18 21:34 Dose: 30 mg Insulin Glargine (Lantus) 30 unit SC DAILY [facility] Last Admin: 08/03/18 10:01 Dose: 30 units Insulin Human Regular (Novolin R) 0 unit SC Q6 [facility]; Protocol Last Admin: 08/04/18 05:45 Dose: 6 units Meclizine HCl (Antivert) 12.5 mg PO BID PRN PRN Reason: Dizziness Last Admin: 08/01/18 17:42 Dose: 12.5 mg Metoprolol Tartrate (Lopressor) 50 mg PO BID [facility] Last Admin: 08/03/18 17:29 Dose: 50 mg Neomycin/Polymyxin/Bacitracin (Neosporin Triple Antibiotic Oint) 1 gm TOP DAILY [facility] Last Admin: 08/03/18 10:01 Dose: 1 applic Nystatin (Nystop Topical Powder) 1 applic TOP BID [facility] Last Admin: 08/03/18 17:29 Dose: 1 applic Pantoprazole Sodium (Protonix Susp) 40 mg PO 0600 [facility] Last Admin: 08/04/18 07:15 Dose: 40 mg Rosuvastatin Calcium (Crestor) 10 mg PO HS [facility] Last Admin: 08/03/18 21:34 Dose: 10 mg - Labs Labs: 08/01/18 08:31 08/01/18 08:31
[2018-08-04] MEDS: Bacitracin/Neomycin/Polymyxin Oint(30GM) TOP SCH (09:48)
[2018-08-04] MEDS: (Lantus) Insulin Glargine, Recombinant SC SCH (09:48)
[2018-08-05] MEDS: Albuterol-Ipratrop 3 mg / 0.5 (3 ml) UD INH SCH ×4 (02:38→19:57)
[2018-08-05] MEDS: Pantoprazole 40 mg Susp UD PO SCH (05:15)
[2018-08-05] MEDS: (Novolin R) Insulin Human Regular 100 units/ml vial SC SCH ×4 (06:15→18:05)
[2018-08-05 08:00] LABS: BASO # 0.1 K/uL (0.0-0.2); BASO % 1.1 % (0.0-2.0); EOS # 0.5 K/uL (0.0-0.7); EOS % 4.7 % (0.0-4.0); HEMOGLOBIN 9.3 g/dL (11.0-16.0); LYMPH # 1.6 K/uL (1.0-4.3); LYMPH % 13.3 % (20.0-40.0); MEAN CELL VOLUME 96.6 fL (81.0-99.0); MEAN CORPUSCULAR HEMOGLOBIN 32.2 pg (27.0-31.0); MEAN CORPUSCULAR HGB CONC 33.4 g/dL (33.0-37.0); MONO # 0.8 K/uL (0.0-0.8); MONO % 6.9 % (0.0-10.0); NEUT # 8.7 K/uL (1.8-7.0); NRBC % 0.1 % (0.0-2.0); RBC 2.9 Mil/uL (3.80-5.20); RED CELL DISTRIBUTION WIDTH 15.9 % (11.5-14.5); WHITE BLOOD COUNT 11.8 K/uL (4.8-10.8)
[2018-08-05 08:10] LABS: ALB/GLOB RATIO 1.3 (1.0-2.1); ALBUMIN 3.9 g/dL (3.5-5.0); ALT/SGPT 17 U/L (9-52); AST/SGOT 22 U/L (14-36); BLOOD UREA NITROGEN 36 mg/dL (7-17); CALCIUM 9.9 mg/dl (8.6-10.4); GFR NON-AFRICAN AMERICAN 59
--- NOTE | 2018-08-05 09:02 | RAD ---
Date of service: 08/05/2018 HISTORY: pna COMPARISON: Portable chest 07/31/2018. FINDINGS: LUNGS: Improved inspiratory volume bilaterally. Unipolar pacemaker reiterated as well as post CABG changes. Stable mild increase interstitial pattern again evident without definite infiltrates bilaterally. PLEURA: No significant pleural effusion identified, no pneumothorax apparent. CARDIOVASCULAR: Calcific atherosclerotic changes are seen related to the thoracic aorta. Stable cardiac silhouette. No pulmonary vascular congestion. OSSEOUS STRUCTURES: No significant abnormalities. VISUALIZED UPPER ABDOMEN: Normal. OTHER FINDINGS: None. IMPRESSION: Mildly increased interstitial changes again evident consider potential interstitial pneumonitis although early pulmonary edema is a possibility although hilar vascular markings do not appear prominent at this time. Clinically correlate further. No infiltrates bilaterally.
[2018-08-05] MEDS: Bacitracin/Neomycin/Polymyxin Oint(30GM) TOP SCH (10:21)
[2018-08-05] MEDS: (Lantus) Insulin Glargine, Recombinant SC SCH (10:22)
--- NOTE | 2018-08-05 15:28 | CP.PCM.PN ---
Subjective - Date & Time of Evaluation Date of Evaluation: 08/05/18 Time of Evaluation: 15:27 Objective - Vital Signs/Intake and Output Vital Signs (last 24 hours): Temp Pulse Resp BP Pulse Ox 98.1 F 100 H 20 150/82 95 08/05/18 07:00 08/05/18 07:00 08/05/18 07:00 08/05/18 10:22 08/05/18 07:00 Intake and Output: 08/05/18 08/05/18 06:59 18:59 Intake Total 620 620 Balance 620 620 - Medications Medications: Current Medications Acetaminophen (Tylenol 650 Mg Supp) 650 mg [place] Q6 PRN PRN Reason: Fever >100.4 F Last Admin: 07/18/18 07:37 Dose: 650 mg Albuterol/Ipratropium (Duoneb 3 Mg/0.5 Mg (3 Ml) Ud) 3 ml INH RQ6 [facility] Last Admin: 08/05/18 13:22 Dose: Not Given Diltiazem HCl (Cardizem) 30 mg PO QID [facility] Last Admin: 08/05/18 14:21 Dose: 30 mg Insulin Glargine (Lantus) 30 unit SC DAILY [facility] Last Admin: 08/05/18 10:22 Dose: 30 units Insulin Human Regular (Novolin R) 0 unit SC Q6 [facility]; Protocol Last Admin: 08/05/18 12:30 Dose: 4 units Meclizine HCl (Antivert) 12.5 mg PO BID PRN PRN Reason: Dizziness Last Admin: 08/01/18 17:42 Dose: 12.5 mg Metoprolol Tartrate (Lopressor) 50 mg PO BID [facility] Last Admin: 08/05/18 10:22 Dose: 50 mg Neomycin/Polymyxin/Bacitracin (Neosporin Triple Antibiotic Oint) 1 gm TOP DAILY [facility] Last Admin: 08/05/18 10:21 Dose: 1 applic Nystatin (Nystop Topical Powder) 1 applic TOP BID [facility] Last Admin: 08/05/18 10:23 Dose: 1 applic Pantoprazole Sodium (Protonix Susp) 40 mg PO 0600 [facility] Last Admin: 08/05/18 05:15 Dose: 40 mg Rosuvastatin Calcium (Crestor) 10 mg PO HS [facility] Last Admin: 08/04/18 21:12 Dose: 10 mg - Labs Labs: 08/05/18 07:46 08/05/18 07:46 Assessment and Plan - Assessment and Plan (Free Text) Assessment: FOLLOW UP WITH DR PORRAS IN HIS OFFICE-----CALL FOR APPOINTMENT FLOOW UP WITH DR MORENO IN HER OFFICE -----CALL FOR APPOINTMENT CONTINUE HOME MEDICATION ACTIVITY TOLERATED PEG TUBE CARE AND HOME VNS CALL DR PORRAS OR GO TO THE EMERGENCY ROOM IF SYMPTOM RETURN RETURN OR WORSENING
--- NOTE | 2018-08-05 17:56 | CP.PCM.PN ---
Subjective - Date & Time of Evaluation Date of Evaluation: 08/05/18 Time of Evaluation: 17:55 - Subjective Subjective: Patient is clinically stable. She is clinically well. She is awake and responding. Currently off antibiotic. Today labs reviewed Also vital signs stable. Assessment: 88-year-old female with a history of COPD hypertension diabetes CAD. Achalasia cardia. Patient has a PEG tube. recurrent sepsis. But she will be possibly Discharge once discharge arrangement is made. Objective - Vital Signs/Intake and Output Vital Signs (last 24 hours): Temp Pulse Resp BP Pulse Ox 98.3 F 84 20 118/69 95 08/05/18 16:59 08/05/18 16:59 08/05/18 16:59 08/05/18 17:18 08/05/18 16:59 Intake and Output: 08/05/18 08/05/18 06:59 18:59 Intake Total 620 620 Balance 620 620 - Medications Medications: Current Medications Acetaminophen (Tylenol 650 Mg Supp) 650 mg [place] Q6 PRN PRN Reason: Fever >100.4 F Last Admin: 07/18/18 07:37 Dose: 650 mg Albuterol/Ipratropium (Duoneb 3 Mg/0.5 Mg (3 Ml) Ud) 3 ml INH RQ6 [facility] Last Admin: 08/05/18 13:22 Dose: Not Given Diltiazem HCl (Cardizem) 30 mg PO QID [facility] Last Admin: 08/05/18 17:18 Dose: 30 mg Insulin Glargine (Lantus) 30 unit SC DAILY [facility] Last Admin: 08/05/18 10:22 Dose: 30 units Insulin Human Regular (Novolin R) 0 unit SC Q6 [facility]; Protocol Last Admin: 08/05/18 12:30 Dose: 4 units Meclizine HCl (Antivert) 12.5 mg PO BID PRN PRN Reason: Dizziness Last Admin: 08/01/18 17:42 Dose: 12.5 mg Metoprolol Tartrate (Lopressor) 50 mg PO BID [facility] Last Admin: 08/05/18 17:18 Dose: 50 mg Neomycin/Polymyxin/Bacitracin (Neosporin Triple Antibiotic Oint) 1 gm TOP DAILY [facility] Last Admin: 08/05/18 10:21 Dose: 1 applic Nystatin (Nystop Topical Powder) 1 applic TOP BID [facility] Last Admin: 08/05/18 17:17 Dose: 1 applic Pantoprazole Sodium (Protonix Susp) 40 mg PO 0600 [facility] Last Admin: 08/05/18 05:15 Dose: 40 mg Rosuvastatin Calcium (Crestor) 10 mg PO HS [facility] Last Admin: 08/04/18 21:12 Dose: 10 mg - Labs Labs: 08/05/18 07:46 08/05/18 07:46
[2018-08-06] MEDS: Albuterol-Ipratrop 3 mg / 0.5 (3 ml) UD INH SCH ×3 (02:00→13:52)
[2018-08-06] MEDS: Pantoprazole 40 mg Susp UD PO SCH (05:25)
[2018-08-06] MEDS: (Novolin R) Insulin Human Regular 100 units/ml vial SC SCH ×3 (06:10→12:11)
[2018-08-06 07:44] VITALS: BP 122/66; PULSE 102; TEMP 97.8; O2SAT 97
[2018-08-06] MEDS: (Lantus) Insulin Glargine, Recombinant SC SCH (09:58)
[2018-08-06] MEDS: Bacitracin/Neomycin/Polymyxin Oint(30GM) TOP SCH (09:59)
--- NOTE | 2018-08-09 10:42 | CP.PCM.DIS ---
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 Core Measures Referral Routine Comment: Physician Instructions: Reason For Exam: PMH CHF Nursing Referral for Palliative Care Routine Comment: Physician Instructions: Reason For Exam: score 10 07/01/18 18:49 Infectious Disease Consult Routine Comment: Consulting Provider: Efrem Cordova Consulting Physician: Efrem Cordova Reason for Consult: uti 07/03/18 12:02 Nursing Referral for Wound Care Routine Comment: Physician Instructions: Reason For Exam: SACRAL REDNESS, PLS EVALUATE 07/19/18 14:19 Wound Care [Nursing Referral for Wound Care] Routine Comment: Physician Instructions: Reason For Exam: Sacral area discoloration 07/23/18 16:15 Wound Care [Nursing Referral for Wound Care] Routine Comment: Physician Instructions: Reason For Exam: redness on sacrum area, rednes L ear,upper corner. Time Spent in preparation of Discharge (in minutes): 45 Hospital Course - Lab Results Lab Results: Micro Results 07/18/18 10:19 Blood-Venous Blood Culture - Final NO GROWTH AFTER 5 DAYS 07/18/18 10:19 Blood-Venous Gram Stain - Final TEST NOT PERFORMED 07/18/18 10:19 Blood-Venous Blood Culture - Final NO GROWTH AFTER 5 DAYS 07/18/18 10:19 Blood-Venous Gram Stain - Final TEST NOT PERFORMED 07/15/18 16:07 Blood Blood Culture - Final NO GROWTH AFTER 5 DAYS 07/15/18 16:07 Blood Gram Stain - Final TEST NOT PERFORMED 07/15/18 14:01 Blood Blood Culture - Final NO GROWTH AFTER 5 DAYS 07/18/18 13:49 Urine,Catheterized Urine Culture - Final No Growth (<1,000 CFU/ML) 07/15/18 19:25 Urine,Catheterized Urine Culture - Final Klebsiella Pneumoniae Ssp Pneu 07/10/18 07:00 Peg Site Gram Stain - Final 07/10/18 07:00 Peg Site Wound Culture - Final Klebsiella Pneumoniae Ssp Pneu Enterococcus Faecalis 07/10/18 07:00 Urine,Catheterized Urine Culture - Final No Growth (<1,000 CFU/ML) 06/29/18 12:41 Blood Blood Culture - Final NO GROWTH AFTER 5 DAYS 06/29/18 12:41 Blood Gram Stain - Final TEST NOT PERFORMED 06/29/18 12:41 Blood Blood Culture - Final NO GROWTH AFTER 5 DAYS 06/29/18 12:41 Blood Gram Stain - Final TEST NOT PERFORMED 06/29/18 14:27 Urine Urine Culture - Final Vancomycin Resistant E.faecium 06/29/18 15:21 Abdomen Gram Stain - Final 06/29/18 15:21 Abdomen Wound Culture - Final Enterococcus Faecalis Corynebacterium Species Most Recent Lab Values WBC 11.8 K/uL (4.8-10.8) H 08/05/18 07:46 RBC 2.90 Mil/uL (3.80-5.20) L 08/05/18 07:46 Hgb 9.3 g/dL (11.0-16.0) L 08/05/18 07:46 Hct 28.0 % (34.0-47.0) L 08/05/18 07:46 MCV 96.6 fL (81.0-99.0) 08/05/18 07:46 MCH 32.2 pg (27.0-31.0) H 08/05/18 07:46 MCHC 33.4 g/dL (33.0-37.0) 08/05/18 07:46 RDW 15.9 % (11.5-14.5) H 08/05/18 07:46 Plt Count 320 K/uL (130-400) D 08/05/18 07:46 MPV 8.0 fL (7.2-11.7) 08/05/18 07:46 Neut % (Auto) 74.0 % (50.0-75.0) 08/05/18 07:46 Lymph % (Auto) 13.3 % (20.0-40.0) L 08/05/18 07:46 Will % (Auto) 6.9 % (0.0-10.0) 08/05/18 07:46 Eos % (Auto) 4.7 % (0.0-4.0) H 08/05/18 07:46 Baso % (Auto) 1.1 % (0.0-2.0) 08/05/18 07:46 Neut # (Auto) 8.7 K/uL (1.8-7.0) H 08/05/18 07:46 Lymph # (Auto) 1.6 K/uL (1.0-4.3) 08/05/18 07:46 Will # (Auto) 0.8 K/uL (0.0-0.8) 08/05/18 07:46 Eos # (Auto) 0.5 K/uL (0.0-0.7) 08/05/18 07:46 Baso # (Auto) 0.1 K/uL (0.0-0.2) 08/05/18 07:46 Neutrophils % (Manual) 86 % (50-75) H 07/20/18 06:59 Band Neutrophils % 3 % (0-2) H 07/20/18 06:59 Lymphocytes % (Manual) 5 % (20-40) L 07/20/18 06:59 Monocytes % (Manual) 5 % (0-10) 07/20/18 06:59 Eosinophils % (Manual) 1 % (0-4) 07/20/18 06:59 Myelocytes % 1 % (0-0) H 07/19/18 07:14 Nucleated RBC % 4 % (0-0) H 07/19/18 07:14 Toxic Granulation Present 07/20/18 06:59 Platelet Estimate Normal (NORMAL) 07/20/18 06:59 Large Platelets Present 07/20/18 06:59 Polychromasia Slight 07/20/18 06:59 Hypochromasia (manual) Slight 07/20/18 06:59 Poikilocytosis (manual Slight 07/19/18 07:14 Anisocytosis (manual) Slight 07/20/18 06:59 Microcytosis (manual) Slight 07/11/18 07:03 Macrocytosis (manual) Slight 07/19/18 07:14 pO2 23 mm/Hg (30-55) L 07/18/18 13:34 VBG pH 7.39 (7.32-7.43) 07/18/18 13:34 VBG pCO2 58 mmHg (40-60) 07/18/18 13:34 VBG HCO3 29.7 mmol/L 07/18/18 13:34 VBG Total CO2 36.9 mmol/L (22-28) H 07/18/18 13:34 VBG O2 Sat (Calc) 41.3 % (40-65) 07/18/18 13:34 VBG Base Excess 8.1 mmol/L (0.0-2.0) H 07/18/18 13:34 VBG Potassium 4.5 mmol/L (3.6-5.2) 07/18/18 13:34 Sodium 161.0 mmol/l (132-148) H* 07/18/18 13:34 Chloride 122.0 mmol/L (98-107) H 07/18/18 13:34 Glucose 96 mg/dl (65-105) 07/18/18 13:34 Lactate 2.2 mmol/L (0.7-2.1) H 07/18/18 13:34 Crit Value Called To Dr porras 07/18/18 13:34 Crit Value Called By Rj pittman rrt 07/18/18 13:34 Crit Value Read Back Y 07/18/18 13:34 Blood Gas Notified Time 1337 07/18/18 13:34 Sodium 133 mmol/L (132-148) 08/05/18 07:46 Potassium 4.2 mmol/L (3.6-5.2) 08/05/18 07:46 Chloride 97 mmol/L (98-107) L 08/05/18 07:46 Carbon Dioxide 28 mmol/L (22-30) 08/05/18 07:46 Anion Gap 13 (10-20) 08/05/18 07:46 BUN 36 mg/dL (7-17) H 08/05/18 07:46 Creatinine 0.9 mg/dL (0.7-1.2) 08/05/18 07:46 Est GFR ( Amer) > 60 08/05/18 07:46 Est GFR (Non-Af Amer) 59 08/05/18 07:46 POC Glucose (mg/dL) 213 mg/dL (65-110) H 08/06/18 11:19 Random Glucose 275 mg/dL (65-105) H 08/05/18 07:46 Calcium 9.9 mg/dl (8.6-10.4) 08/05/18 07:46 Phosphorus 3.9 mg/dL (2.5-4.5) 08/05/18 07:46 Magnesium 1.9 mg/dL (1.6-2.3) 08/05/18 07:46 Total Bilirubin 0.5 mg/dL (0.2-1.3) 08/05/18 07:46 Direct Bilirubin 0.4 mg/dL (0.0-0.4) 07/02/18 07:45 AST 22 U/L (14-36) 08/05/18 07:46 ALT 17 U/L (9-52) 08/05/18 07:46 Alkaline Phosphatase 59 U/L (38-126) 08/05/18 07:46 Troponin I < 0.0120 ng/mL (0.00-0.120) 06/29/18 12:29 NT-Pro-B Natriuret Pep 82.8 pg/mL (0-900) 06/29/18 12:29 Total Protein 6.9 g/dL (6.3-8.3) 08/05/18 07:46 Albumin 3.9 g/dL (3.5-5.0) 08/05/18 07:46 Globulin 2.9 gm/dL (2.2-3.9) 08/05/18 07:46 Albumin/Globulin Ratio 1.3 (1.0-2.1) 08/05/18 07:46 Procalcitonin 0.87 NG/ML (0.19-0.49) H 07/18/18 10:19 Venous Blood Potassium 4.5 mmol/L (3.6-5.2) 07/18/18 13:34 Urine Color Yellow (YELLOW) 07/18/18 13:49 Urine Clarity Hazy (Clear) 07/18/18 13:49 Urine pH 6.0 (5.0-8.0) 07/18/18 13:49 Ur Specific [place] 1.023 (1.003-1.030) 07/18/18 13:49 Urine Protein 1+ mg/dL (NEGATIVE) H 07/18/18 13:49 Urine Glucose (UA) 2+ mg/dL (Normal) H 07/18/18 13:49 Urine Ketones Negative mg/dL (NEGATIVE) 07/18/18 13:49 Urine Blood Negative (NEGATIVE) 07/18/18 13:49 Urine Nitrate Negative (NEGATIVE) 07/18/18 13:49 Urine Bilirubin Negative (NEGATIVE) 12/20/18 13:49 Urine Urobilinogen Normal mg/dL (0.2-1.0) 07/18/18 13:49 Ur Leukocyte Esterase 3+ Sylvie/uL (Negative) H 07/18/18 13:49 Urine WBC (Auto) 76 /hpf (0-5) H 07/18/18 13:49 Urine RBC (Auto) 4 /hpf (0-3) H 07/18/18 13:49 Urine WBC Clumps (Auto) Few /hpf (NONE) H 06/29/18 14:27 Ur Squamous Epith Cells 2 /hpf (0-5) 07/18/18 13:49 Amorphous Sediment Rare /ul (<OCC) H 06/29/18 14:27 Urine Bacteria Occ (<OCC) H 07/18/18 13:49 Random Gentamicin 2.6 ug/mL 07/18/18 13:49 - Hospital Course Hospital Course: History: 87-year-old female with a history of hypertension, COPD, CAD, CABG, high cholesterol osteoporosis pneumonia and a history of tracheostomy and aspiration pneumonia and GI bleed admitted to the hospital with a urinary tract infection. Patient was also having an episode of GI bleed around the gastrointestinal PEG tube. Patient was admitted to the hospital because of the severe anemia with hemoglobin low level, also in the past he received a blood transfusion. Observation was done. Patient was admitted to the hospital with a possible diagnosis of also urinary tract infection. Urine analysis showing evidence of WBC 23, leukocyte esterase 3+ Patient was hospitalized. Patient was admitted. She was admitted to the hospital with a diagnosis of urinary tract infection, and bleeding around the PEG site. Course in the hospital. Patient was hospitalized. Patient was hospitalized with acute pneumonia likely aspiration. Urinary tract infection. Patient was given antibiotic started on intravenous a day. Initially patient showed improvement. But as the patient started having more worsening, repeated urinary tract infection was identified. Patient was also having multidrug-resistant Klebsiella infection in the urine. Associate with the severe systemic symptoms. Patient was also having episodes of altered mental status. Uncontrolled diabetes. infectious disease evaluation was called in. Patient was placed on colistin intravenously Glucose was controlled. Patient continued to receive her medications Patient is a 87-year-old female with history of multiple medical problems including Final diagnosis: Aspiration pneumonia Hypertension, CAD, CABG, COPD, history of recurrent respiratory insufficiency, tracheostomy. Uncontrolled diabetes. Achalasia cardia. Recurrent aspiration pneumonia. Also had a history of PEG tube placement. Admitted now with recurrent urinary tract infection multidrug-resistant. Clinically patient is improving. Patient is clinically stable. She will be discharged home. She is off antibiotic now. Patient daughter was informed about overall condition. Discussed with the family. Clinically stable. Medications reviewed She will continue rest of the medication as an outpatient and will follow the patient Discharge Exam - Head Exam Head Exam: NORMAL INSPECTION Discharge Plan - Follow Up Plan Condition: STABLE Disposition: HOME/ ROUTINE Instructions: Heart Failure, Adult (DC), Sepsis, Adult (DC), Urinary Tract Infection in Women (DC) Additional Instructions: FOLLOW UP WITH DR PORRAS IN HIS OFFICE-----CALL FOR APPOINTMENT FLOOW UP WITH DR CORDOVA IN HER OFFICE -----CALL FOR APPOINTMENT CONTINUE HOME MEDICATION ACTIVITY TOLERATED PEG TUBE CARE AND HOME VNS CALL DR PORRAS OR GO TO THE EMERGENCY ROOM IF SYMPTOM RETURN RETURN OR WORSENING Referrals: Efrem Cordova MD [Staff Provider] - Luis Manuel Porras MD [Staff Provider] -
== END 2018-08-06 15:06 | disposition home or self-care (01) | DRG 871 ==
LOC: C.ER 10:21 → C.3T 15:44 → OBSVTOIN 07-01 12:19 → C.3T 07-11 17:12
PROVIDERS: ADMIT Internal Medicine; ATTEND Internal Medicine
PROC: 02HV33Z Insertion of Infusion Device into Superior Vena Cava, Percutaneous Approach (ICD-10-PCS; principal; 2018-07-15)
DX: A41.9 Sepsis, unspecified organism (principal); R65.21 Severe sepsis with septic shock; J69.0 Pneumonitis due to inhalation of food and vomit; K94.22 Gastrostomy infection; N39.0 Urinary tract infection, site not specified; K92.2 Gastrointestinal hemorrhage, unspecified; E87.0 Hyperosmolality and hypernatremia; K94.21 Gastrostomy hemorrhage; E11.9 Type 2 diabetes mellitus without complications; I48.91 Unspecified atrial fibrillation; E78.00 Pure hypercholesterolemia, unspecified; B95.2 Enterococcus as the cause of diseases classified elsewhere; Z16.21 Resistance to vancomycin; Y83.3 Surgical operation with formation of external stoma as the cause of abnormal reaction of the patient, or of later complication, without mention of misadventure at the time of the procedure; Z87.891 Personal history of nicotine dependence; J44.9 Chronic obstructive pulmonary disease, unspecified; I25.10 Atherosclerotic heart disease of native coronary artery without angina pectoris; Z95.1 Presence of aortocoronary bypass graft; M81.0 Age-related osteoporosis without current pathological fracture; Z88.0 Allergy status to penicillin

== ENCOUNTER 2018-08-15 10:04 | Emergency (ER) | payer MEDICARE | END 2018-08-15 18:31 | disposition home or self-care (01) | LOC: C.ER 10:04 ==

== ENCOUNTER 2018-08-17 18:21 | Inpatient (IN) | payer MEDICARE ==
[2018-08-17 18:22] VITALS: BMI 18.8
[2018-08-17 18:41] LABS: BASO # 0.1 K/uL (0.0-0.2); BASO % 0.6 % (0.0-2.0); EOS # 0.1 K/uL (0.0-0.7); EOS % 0.8 % (0.0-4.0); HEMOGLOBIN 12.2 g/dL (11.0-16.0); LYMPH # 1.4 K/uL (1.0-4.3); LYMPH % 9.7 % (20.0-40.0); MEAN CELL VOLUME 94.1 fL (81.0-99.0); MEAN CORPUSCULAR HEMOGLOBIN 31.6 pg (27.0-31.0); MEAN CORPUSCULAR HGB CONC 33.6 g/dL (33.0-37.0); MEAN PLATELET VOLUME 7.4 fL (7.2-11.7); MONO # 1.1 K/uL (0.0-0.8); MONO % 7.1 % (0.0-10.0); NEUT # 12.1 K/uL (1.8-7.0); NEUT % 81.8 % (50.0-75.0); PLATELET COUNT 341 K/uL (130-400); RBC 3.85 Mil/uL (3.80-5.20); RED CELL DISTRIBUTION WIDTH 15.4 % (11.5-14.5); WHITE BLOOD COUNT 14.8 K/uL (4.8-10.8)
--- NOTE | 2018-08-17 18:49 | C.PDOC ---
History Of Present Illness 88 year old female with a past medical history of HTN, COPD, CAD, CABG, high cholesterol, past aspiration pneumonia and tracheostomy, and GI bleed with hx of PEG tube was brought into the ED by her daughter. Per daughter, the patient was seen in the ED 2 days ago because her PEG tube was accidentally pulled out, she was found to have a possible UTI infection, PEG tube was re-inserted, and the patient was discharged home on macrobid. The daughter brought the patient in because she does not feel well today, warm to the touch but no temperature provided. Upon arrival the patient is smiling and interacting. Daughter denies history of cough, respiratory distress, and any other associated symptoms. Time Seen by Provider: 08/17/18 18:28 Chief Complaint (Nursing): Medical Clearance History Per: Family (daughter. ) History/Exam Limitations: no limitations Onset/Duration Of Symptoms: Days Current Symptoms Are (Timing): Still Present Recent travel outside of the [place]: No Past Medical History Reviewed: Historical Data, Nursing Documentation, Vital Signs Vital Signs: Last Vital Signs Temp 98.4 F 08/17/18 18:39 Pulse 92 H 08/17/18 18:39 Resp 20 08/17/18 18:39 BP 172/81 H 08/17/18 18:39 Pulse Ox 95 08/17/18 18:39 - Medical History PMH: Anxiety, Arthritis, Bronchitis, CAD, Cardia Arrhythmia, CHF, COPD, Diabetes, GERD (esophageal stricture), HTN, Hypercholesterolemia, Osteoporosis, Pneumonia, Rheumatoid Arthritis Denies: HIV, Chronic Kidney Disease, Seizures, Sexually Transmitted Disease Surgical History: CABG (12/16/1991), Carotid Endarterectomy (06/13/05), Coronary Stent, Pacemaker - [facility] Procedures ASSISTANCE WITH RESPIRATORY VENTILATION, >96 HRS, CPAP (05/07/18) BYPASS TRACHEA TO CUTANEOUS WITH TRACH DEV, PERC APPROACH (11/09/17) CHANGE OTHER DEVICE IN ABDOMINAL WALL, EXTERNAL APPROACH (08/03/15) CONTR CEREBR ARTERIOGRAM (06/13/05) CONTRAST AORTOGRAM (06/13/05) CONTRAST ARTERIOGRAM NEC (05/23/12) CONTROL BLEEDING IN GASTROINTESTINAL TRACT, ENDO (05/07/18) CORONAR ARTERIOGR-2 CATH (05/23/12) ENDOSC POLYPECTOMY OF LG INTEST (06/28/14) ENTERAL INFUSION OF CONCENTRATED NUT. SUBSTANCES (10/01/14) HEAD & NECK ENDARTER NEC (06/13/05) INJECT ANTICOAGULANT (06/13/05) INSERT PACE, SINGL HAYLEY IN CHEST SUBCU/FASCIA, OPEN (03/05/16) INSERTION OF ENDOTRACHEAL AIRWAY INTO TRACHEA, VIA OPENING (05/07/18) INSERTION OF INFUSION DEV INTO R BRACH VEIN, PERC APPROACH (05/07/18) INSERTION OF INFUSION DEV INTO SUP VENA CAVA, PERC APPROACH (07/01/18) INSERTION OF ONE VASCULAR STENT (05/23/12) INSERTION OF PACEMAKER LEAD INTO R VENTRICLE, PERC APPROACH (03/05/16) INSPECTION OF TRACHEOBRONCHIAL TREE, ENDO (11/09/17) INSRT OF DRUG-ELUTING CORON ARTERY STENTS(S) (05/23/12) INTRODUCTION OF NUTRITIONAL INTO UP GI, VIA OPENING (06/17/18) INTRODUCTION OF VASOPRESSOR INTO CENTRAL VEIN, PERC APPROACH (03/05/16) LEFT HEART CARDIAC CATH (05/23/12) LT HEART ANGIOCARDIOGRAM (05/23/12) MEASUREMENT OF CARDIAC PACEMAKER, EXTERNAL APPROACH (01/27/17) PACKED CELL TRANSFUSION (06/28/14) PERCUTANEOUS TRANSLUMINAL CORONARY ANGIOPLASTY [PTCA] (05/23/12) PERCUTANEOUS [ENDOSCOPIC] GASTROSTOMY [PEG] (10/01/14) PERFORMANCE OF CARDIAC PACING, CONTINUOUS (03/05/16) PROCEDURE ON SINGLE VESSEL (05/23/12) REPLACE GASTROSTOMY TUBE (02/09/15) RESPIRATORY VENTILATION, 24-96 CONSECUTIVE HOURS (05/07/18) RESPIRATORY VENTILATION, GREATER THAN 96 CONSECUTIVE HOURS (05/07/18) TRANSFUSE NONAUT FROZEN PLASMA IN PERIPH VEIN, PERC (05/07/18) TRANSFUSE NONAUT RED BLOOD CELLS IN PERIPH VEIN, PERC (05/07/18) Family History: States: Unknown Family Hx - Social History Hx Tobacco Use: No Hx Alcohol Use: No Hx Substance Use: No - Immunization History Hx Tetanus Toxoid Vaccination: No Hx Influenza Vaccination: No Hx Pneumococcal Vaccination: No Review Of Systems Review Of Systems: ROS cannot be obtained secondary to pt's inabilty to answer questions. Physical Exam - Physical Exam Appears: Well, Non-toxic, No Acute Distress Skin: Warm ( skin warm not hot to the touch. ), Dry, Other (stage 2 sacral decubitus no infection. stage 2 sacral decubitus healed on left heal.) Head: Atraumatic, Normacephalic Eye(s): bilateral: Normal Inspection Oral Mucosa: Moist Neck: Normal ROM, Supple Cardiovascular: Rhythm Regular, No Murmur Respiratory: Decreased Breath Sounds (lung sounds diminished due to poor inspiratory effort.), No Rales, No Rhonchi, No Wheezing Gastrointestinal/Abdominal: Normal Exam, Soft, No Tenderness Extremity: Bilateral: Atraumatic, Normal Color And Temperature, Normal ROM Neurological/Psych: Oriented x3, Normal Speech, Normal Cognition ED Course And Treatment - Laboratory Results Result Diagrams: 08/17/18 18:37 08/17/18 18:37 Lab Interpretation: Abnormal (WBC 14.8 with left shift, BUN 42, Na 127, K+ 5.4, Glucose 318, UA WBC 62 with 3+ leukocyte esterase) O2 Sat by Pulse Oximetry: 95 (RA) Pulse Ox Interpretation: Normal - Radiology CXR: Interpreted by Me CXR Interpretation: Yes: Infiltrates (? LLL retrocardiac) Progress Note: Patient was treated in ED with Avelox IV Reevaluation Time: 20:04 Reassessment Condition: Unchanged - Physician Consult Information Time Consulting Physician Contacted: 20:04 Physician Contacted: Luis Manuel Patel Outcome Of Conversation: He states that patients daughter called him today describing a rigor with ? fever. He advised ED evaluation. He agrees to admit to his service for UTI and possible pneumonia. Medical Decision Making Medical Decision Making: Plan - CXR - CBC - Blood culture - Urine culture - Maxifloxacin IV - O2 via NC Disposition - Disposition Disposition: HOSPITALIZED Disposition Time: 20:05 Condition: STABLE - POA Present On Arrival: Poor Glycemic Control - Clinical Impression Clinical Impression: UTI (urinary tract infection), Pneumonia - Scribe Statement The provider has reviewed the documentation as recorded by the Scribe (Hilda Hoskins) Provider Attestation: All medical record entries made by the Scribe were at my direction and personally dictated by me. I have reviewed the chart and agree that the record accurately reflects my personal performance of the history, physical exam, medical decision making, and the department course for this patient. I have also personally directed, reviewed, and agree with the discharge instructions and disposition.
[2018-08-17 18:54] LABS: ALB/GLOB RATIO 1.3 (1.0-2.1); ALBUMIN 4.7 g/dL (3.5-5.0); ALT/SGPT 9 U/L (9-52); AST/SGOT 34 U/L (14-36); BLOOD UREA NITROGEN 42 mg/dL (7-17); CALCIUM 10.2 mg/dl (8.6-10.4); GFR NON-AFRICAN AMERICAN > 60
[2018-08-17] MEDS ORDERED: Sodium Chloride 0.9% 1,000 ML IV ONE (18:59)
[2018-08-17 19:10] LABS: SQUAMOUS EPITHIAL 5 /hpf (0-5); URINE BILIRUBIN NEGATIVE (NEGATIVE); URINE BLOOD NEGATIVE (NEGATIVE); URINE CLARITY Hazy (Clear); URINE COLOR Yellow (YELLOW); URINE GLUCOSE (UA) 3+ mg/dL (Normal); URINE LEUKOCYTE ESTERASE 3+ Leu/uL (Negative); URINE PROTEIN 1+ mg/dL (NEGATIVE); URINE UROBILINOGEN NORMAL mg/dL (0.2-1.0)
[2018-08-17] MEDS ORDERED: Moxifloxacin IV 400mg/250ml NS 400 MG/250 ML BAG IV ONE (19:16)
[2018-08-17] MEDS ORDERED: Moxifloxacin IV 400mg/250ml NS 400 MG/250 ML BAG IVPB ONE (19:25)
[2018-08-17 21:14] LABS: PLATELET ESTIMATE NORMAL (NORMAL)
[2018-08-17 21:17] LABS: BANDS 7 % (0-2); LYMPHOCYTE 8 % (20-40); MONOCYTE 5 % (0-10); NEUTROPHIL 80 % (50-75); TOTAL CELLS COUNTED 100
[2018-08-17 21:18] LABS: ANISOCYTOSIS SLIGHT; HYPERSEGMENTATION PRESENT; LARGE PLATELETS PRESENT; OVALOCYTES SLIGHT; POIKILOCYTOSIS SLIGHT; POLYCHROMIC SLIGHT; SMUDGE CELLS PRESENT; SPHEROCYTES SLIGHT; TEARDROP CELLS SLIGHT
[2018-08-18] MEDS ORDERED: Sodium Chloride 0.9% 500 ML IV SCH (09:15)
--- NOTE | 2018-08-18 09:19 | RAD ---
Date of service: 08/17/2018 HISTORY: Pneumonia COMPARISON: Comparison made with prior chest radiograph 08/05/2018 FINDINGS: LUNGS: Poor inspiration with low lung volumes crowded bronchovascular markings and mild bibasilar atelectasis. Previously noted pulmonary venous congestive changes improved. Questionable small bilateral effusions. PLEURA: Mild moderate significant pleural effusion identified, no pneumothorax apparent. CARDIOVASCULAR: No aortic atherosclerotic calcification present. Heart remains mildly enlarged. Sternotomy wires and CABG clips as well as single lead pacemaker/defibrillator unchanged OSSEOUS STRUCTURES: No significant abnormalities. VISUALIZED UPPER ABDOMEN: Normal. OTHER FINDINGS: None. IMPRESSION: Poor inspiration with low lung volumes crowded bronchovascular markings and mild bibasilar atelectasis. Previously noted pulmonary venous congestive changes improved. Questionable small bilateral effusions.
[2018-08-18] MEDS: Moxifloxacin IV 400mg/250ml NS 400 MG/250 ML BAG IVPB SCH (11:41)
[2018-08-18 12:08] LABS: BASO % 0.3 % (0.0-2.0); EOS # 0.2 K/uL (0.0-0.7); EOS % 1.8 % (0.0-4.0); HEMOGLOBIN 10.4 g/dL (11.0-16.0); LYMPH # 0.7 K/uL (1.0-4.3); LYMPH % 5.5 % (20.0-40.0); MEAN CELL VOLUME 95.6 fL (81.0-99.0); MEAN CORPUSCULAR HEMOGLOBIN 31.1 pg (27.0-31.0); MEAN CORPUSCULAR HGB CONC 32.5 g/dL (33.0-37.0); MEAN PLATELET VOLUME 7.6 fL (7.2-11.7); MONO # 0.7 K/uL (0.0-0.8); NEUT # 11.6 K/uL (1.8-7.0); NEUT % 87.4 % (50.0-75.0); PLATELET COUNT 310 K/uL (130-400); RBC 3.36 Mil/uL (3.80-5.20); RED CELL DISTRIBUTION WIDTH 15.3 % (11.5-14.5); WHITE BLOOD COUNT 13.3 K/uL (4.8-10.8)
[2018-08-18] MEDS: (Novolin R) Insulin Human Regular 100 units/ml vial SC SCH ×3 (12:17→21:36)
[2018-08-18 12:21] LABS: ALB/GLOB RATIO 1.3 (1.0-2.1); ALT/SGPT 9 U/L (9-52); AST/SGOT 13 U/L (14-36); BLOOD UREA NITROGEN 26 mg/dL (7-17); CALCIUM 9.9 mg/dl (8.6-10.4); GFR NON-AFRICAN AMERICAN > 60
[2018-08-18 12:46] LABS: BANDS 1 % (0-2); REACTIVE LYMPHOCYTES 1 % (0-0); TOTAL CELLS COUNTED 100
[2018-08-18 12:47] LABS: ANISOCYTOSIS SLIGHT; LYMPHOCYTE 6 % (20-40); MONOCYTE 5 % (0-10); NEUTROPHIL 87 % (50-75); PLATELET ESTIMATE NORMAL (NORMAL)
[2018-08-18] MEDS: Albuterol-Ipratrop 3 mg / 0.5 (3 ml) UD INH SCH (13:34)
[2018-08-18] MEDS: (Lantus) Insulin Glargine, Recombinant SC SCH (21:35)
[2018-08-19] MEDS: Albuterol-Ipratrop 3 mg / 0.5 (3 ml) UD INH SCH ×4 (02:11→20:00)
[2018-08-19] MEDS: Pantoprazole 40 mg Susp UD PO SCH (05:56)
[2018-08-19] MEDS: (Novolin R) Insulin Human Regular 100 units/ml vial SC SCH ×4 (08:09→21:58)
[2018-08-19] MEDS: Moxifloxacin IV 400mg/250ml NS 400 MG/250 ML BAG IVPB SCH (12:31)
[2018-08-19] MEDS: (Lantus) Insulin Glargine, Recombinant SC SCH (22:01)
[2018-08-20] MEDS: Albuterol-Ipratrop 3 mg / 0.5 (3 ml) UD INH SCH ×5 (01:15→20:04)
[2018-08-20] MEDS: Pantoprazole 40 mg Susp UD PO SCH (05:30)
[2018-08-20 07:01] LABS: BASO % 0.4 % (0.0-2.0); EOS # 0.7 K/uL (0.0-0.7); EOS % 6.9 % (0.0-4.0); LYMPH # 1.4 K/uL (1.0-4.3); LYMPH % 14.2 % (20.0-40.0); MEAN CELL VOLUME 95.2 fL (81.0-99.0); MEAN CORPUSCULAR HEMOGLOBIN 31.6 pg (27.0-31.0); MEAN CORPUSCULAR HGB CONC 33.2 g/dL (33.0-37.0); MEAN PLATELET VOLUME 7.7 fL (7.2-11.7); MONO # 0.8 K/uL (0.0-0.8); MONO % 8.5 % (0.0-10.0); NEUT # 6.8 K/uL (1.8-7.0); NRBC % 0.1 % (0.0-2.0); RBC 3.17 Mil/uL (3.80-5.20); RED CELL DISTRIBUTION WIDTH 15.3 % (11.5-14.5); WHITE BLOOD COUNT 9.8 K/uL (4.8-10.8)
[2018-08-20 07:30] LABS: ALB/GLOB RATIO 1.3 (1.0-2.1); ALBUMIN 3.9 g/dL (3.5-5.0); ALT/SGPT 23 U/L (9-52); AST/SGOT 20 U/L (14-36); BLOOD UREA NITROGEN 27 mg/dL (7-17); CALCIUM 9.6 mg/dl (8.6-10.4); GFR NON-AFRICAN AMERICAN > 60
[2018-08-20] MEDS: (Novolin R) Insulin Human Regular 100 units/ml vial SC SCH ×4 (07:59→22:00)
[2018-08-20] MEDS: Moxifloxacin IV 400mg/250ml NS 400 MG/250 ML BAG IVPB SCH (10:22)
[2018-08-20] MEDS: (Lantus) Insulin Glargine, Recombinant SC SCH (23:08)
[2018-08-21] MEDS: Albuterol-Ipratrop 3 mg / 0.5 (3 ml) UD INH SCH ×4 (02:20→20:20)
[2018-08-21] MEDS: Pantoprazole 40 mg Susp UD PO SCH (06:23)
[2018-08-21] MEDS: (Novolin R) Insulin Human Regular 100 units/ml vial SC SCH ×4 (08:08→22:23)
[2018-08-21] MEDS: Moxifloxacin IV 400mg/250ml NS 400 MG/250 ML BAG IVPB SCH (09:58)
[2018-08-21] MEDS: (Lantus) Insulin Glargine, Recombinant SC SCH (22:23)
[2018-08-22] MEDS: Albuterol-Ipratrop 3 mg / 0.5 (3 ml) UD INH SCH ×4 (02:15→19:00)
[2018-08-22] MEDS: Pantoprazole 40 mg Susp UD PO SCH (05:15)
[2018-08-22] MEDS: (Novolin R) Insulin Human Regular 100 units/ml vial SC SCH ×4 (08:02→21:30)
[2018-08-22] MEDS: Moxifloxacin IV 400mg/250ml NS 400 MG/250 ML BAG IVPB SCH (09:44)
[2018-08-22] MEDS: (Lantus) Insulin Glargine, Recombinant SC SCH (21:53)
--- NOTE | 2018-08-22 23:00 | CP.PCM.PN ---
Subjective - Date & Time of Evaluation Date of Evaluation: 08/21/18 Time of Evaluation: 23:00 - Subjective Subjective: Spoke to the patient daughter in detail. Patient is not in any distress. No chest pain or shortness of breath Awake and responding. Tolerating the feeding. No fever noted. Awaiting for culture report. Continue the current treatment. We will follow the patient Objective - Vital Signs/Intake and Output Vital Signs (last 24 hours): Temp Pulse Resp BP Pulse Ox 98.1 F 89 20 118/66 95 08/22/18 15:00 08/22/18 15:00 08/22/18 15:00 08/22/18 15:00 08/22/18 15:00 - Medications Medications: Current Medications Acetaminophen (Tylenol 650 Mg Supp) 650 mg OR Q6 PRN PRN Reason: Fever >100.4 F Albuterol/Ipratropium (Duoneb 3 Mg/0.5 Mg (3 Ml) Ud) 3 ml INH RQ6 [facility] Last Admin: 08/22/18 19:00 Dose: Not Given Aspirin (Aspirin Chewable) 81 mg PO DAILY [facility] Last Admin: 08/22/18 09:44 Dose: 81 mg Diltiazem HCl (Cardizem) 30 mg PO QID [facility] Last Admin: 08/22/18 22:04 Dose: Not Given Heparin Sodium (Porcine) (Heparin) 5,000 units SC Q8 [facility] Last Admin: 08/22/18 21:54 Dose: 5,000 units Moxifloxacin HCl (Avelox Iv 400mg/250ml Ns) 400 mg in 250 mls @ 167 mls/hr IVPB Q24H [facility]; Protocol Last Admin: 08/22/18 09:44 Dose: 167 mls/hr Insulin Glargine (Lantus) 25 unit SC HS [facility] Last Admin: 08/22/18 21:53 Dose: 25 units Insulin Human Regular (Novolin R) 0 unit SC ACHS [facility]; Protocol Last Admin: 08/22/18 21:30 Dose: Not Given Meclizine HCl (Antivert) 12.5 mg PO Q12 PRN PRN Reason: vertigo Metoprolol Tartrate (Lopressor) 50 mg PO BID [facility] Last Admin: 08/22/18 18:11 Dose: 50 mg Nystatin (Nystop Topical Powder) 1 applic TOP BID [facility] Last Admin: 08/22/18 22:34 Dose: 1 applic Pantoprazole Sodium (Protonix Susp) 40 mg PO 0600 [facility] Last Admin: 08/22/18 05:15 Dose: 40 mg Rosuvastatin Calcium (Crestor) 10 mg PO HS [facility] Last Admin: 08/22/18 21:55 Dose: 10 mg - Labs Labs: 08/20/18 06:53 08/20/18 06:53
--- NOTE | 2018-08-22 23:00 | CP.PCM.HP ---
History of Present Illness - History of Present Illness History of Present Illness: Chief complaint Dislodged PEG HPI: 87-year-old female history of high blood pressure, COPD, CAD, CABG, high cholesterol, history of osteoporosis pneumonia or tracheostomy aspiration pneumonia GI bleed multiple hospitalization with recurrent urinary tract infection brought in by the ambulance today because of the dislodgment of the P EG, and unable to feed the patient in the house. Patient daughter called me saying that the PEG tube came out, and unable to put back, brought into the emergency room. In the emergency room the tube was replaced without any problem, but evaluation showing evidence of urinary tract infection needed hospitalization Past medical history: Hypertension, hyperlipidemia, CAD, COPD, osteoporosis osteoarthritis recurrent pneumonia GI bleed and duodenal ulcer Surgical history: CABG x2, tracheostomy, PEG tube, pacemaker, multiple esophageal dilatation for achalasia cardia Allergies multiple allergies noted from the chart Review of system: Noted from the chart. Patient is having pain in the peg site. No headache. Cough minimal Tolerating the feeding On examination: Vital signs stable. Chest good air entry Regular heart sounds noted Abdomen soft. PEG tube noted. Leg swelling negative Labs reviewed Showing elevated WBC. Urinary analysis showing evidence of possible infection Assessment and recognition: 88-year-old female with a history of multiple problems including hypertension, COPD, CAD, CABG, hypercholesterolemia, history of osteoporosis pneumonia tracheostomy aspiration pneumonia GI bleed admitted with a possible urinary tract infection. PEG tube malfunction. Reinsertion done. We will continue the feeding tube. PEG tube feeding. DVT GI prophylaxis. Antibiotic and will follow the patient Present on Admission - Present on Admission Any Indicators Present on Admission: No History of DVT/PE: No History of Uncontrolled Diabetes: No Urinary Catheter: No Decubitus Ulcer Present: No Past Patient History - Infectious Disease Hx of Infectious Diseases: None - Past Medical History & Family History Past Medical History?: Yes - Past Social History Smoking Status: Former Smoker - CARDIAC Hx Congestive Heart Failure: Yes Hx Hypercholesterolemia: Yes Hx Hypertension: Yes - PULMONARY Hx Chronic Obstructive Pulmonary Disease (COPD): Yes - NEUROLOGICAL Hx Seizures: No - HEENT Hx HEENT Problems: Yes Hx Cataracts: Yes (2000 Rt.Eye,2009Left Eye) - RENAL Hx Chronic Kidney Disease: No - ENDOCRINE/METABOLIC Hx Diabetes Mellitus Type 2: Yes - HEMATOLOGICAL/ONCOLOGICAL Hx Human Immunodeficiency Virus (HIV): No - INTEGUMENTARY Hx Dermatological Problems: Yes Other/Comment: sore in the sacral area. heel sore - MUSCULOSKELETAL/RHEUMATOLOGICAL Hx Arthritis: Yes Hx Rheumatoid Arthritis: Yes - GASTROINTESTINAL Hx Gastrointestinal Disorders: Yes Hx Colitis: Yes Hx Gastroesophageal Reflux: Yes HX Swallowing Problems: Yes (Achalasia. See HPI) Other/Comment: peg tube - NOT IN PLACE today 08/15/2018 - GENITOURINARY/GYNECOLOGICAL Hx Sexually Transmitted Disorders: No - PSYCHIATRIC Hx Anxiety: Yes Hx Substance Use: No - SURGICAL HISTORY Hx Carotid Endarterectomy: Yes (06/13/05) Hx Coronary Artery Bypass Graft: Yes (12/16/1991) Hx Coronary Stent: Yes - ANESTHESIA Hx Anesthesia: Yes Hx Anesthesia Reactions: No Hx Malignant Hyperthermia: No Meds Allergies/Adverse Reactions: Allergies Allergy/AdvReac Type Severity Reaction Status Date / Time iodine Allergy REDNESS Verified 08/15/18 10:13 Penicillins Allergy ANGIOEDEMA Verified 08/15/18 10:13 clopidogrel [From Plavix] AdvReac HEADACHE Verified 08/15/18 10:13 losartan [From Cozaar] AdvReac DIZZINESS Verified 08/15/18 10:13 nitroglycerin AdvReac DIZZINESS Verified 08/15/18 10:13 Results - Vital Signs Recent Vital Signs: Last Vital Signs Temp 98.1 F 08/22/18 15:00 Pulse 89 08/22/18 15:00 Resp 20 08/22/18 15:00 BP 118/66 08/22/18 15:00 Pulse Ox 95 08/22/18 15:00 - Labs Result Diagrams: 08/20/18 06:53 08/20/18 06:53 Labs: Laboratory Results - last 24 hr 08/22/18 08/22/18 08/22/18 07:26 11:10 16:34 POC Glucose (mg/dL) 256 H 254 H 262 H 08/22/18 21:05 POC Glucose (mg/dL) 228 H
--- NOTE | 2018-08-22 23:00 | CP.PCM.PN ---
Subjective - Date & Time of Evaluation Date of Evaluation: 08/22/18 Time of Evaluation: 22:58 - Subjective Subjective: Patient condition better today. Patient is more awake and responding. Able to communicate. Not in any distress. Spoke to the patient daughter. Currently patient receiving antibiotic. Chest good air entry Heart sounds are regular Nontender abdomen. Edema in the legs negative. Vital signs are stable. We will continue the current treatment. Possible discharge plan tomorrow Objective - Vital Signs/Intake and Output Vital Signs (last 24 hours): Temp Pulse Resp BP Pulse Ox 98.1 F 89 20 118/66 95 08/22/18 15:00 08/22/18 15:00 08/22/18 15:00 08/22/18 15:00 08/22/18 15:00 - Medications Medications: Current Medications Acetaminophen (Tylenol 650 Mg Supp) 650 mg [place] Q6 PRN PRN Reason: Fever >100.4 F Albuterol/Ipratropium (Duoneb 3 Mg/0.5 Mg (3 Ml) Ud) 3 ml INH RQ6 [facility] Last Admin: 08/22/18 19:00 Dose: Not Given Aspirin (Aspirin Chewable) 81 mg PO DAILY [facility] Last Admin: 08/22/18 09:44 Dose: 81 mg Diltiazem HCl (Cardizem) 30 mg PO QID [facility] Last Admin: 08/22/18 22:04 Dose: Not Given Heparin Sodium (Porcine) (Heparin) 5,000 units SC Q8 [facility] Last Admin: 08/22/18 21:54 Dose: 5,000 units Moxifloxacin HCl (Avelox Iv 400mg/250ml Ns) 400 mg in 250 mls @ 167 mls/hr IVPB Q24H [facility]; Protocol Last Admin: 08/22/18 09:44 Dose: 167 mls/hr Insulin Glargine (Lantus) 25 unit SC HS [facility] Last Admin: 08/22/18 21:53 Dose: 25 units Insulin Human Regular (Novolin R) 0 unit SC ACHS [facility]; Protocol Last Admin: 08/22/18 21:30 Dose: Not Given Meclizine HCl (Antivert) 12.5 mg PO Q12 PRN PRN Reason: vertigo Metoprolol Tartrate (Lopressor) 50 mg PO BID [facility] Last Admin: 08/22/18 18:11 Dose: 50 mg Nystatin (Nystop Topical Powder) 1 applic TOP BID [facility] Last Admin: 08/22/18 22:34 Dose: 1 applic Pantoprazole Sodium (Protonix Susp) 40 mg PO 0600 [facility] Last Admin: 08/22/18 05:15 Dose: 40 mg Rosuvastatin Calcium (Crestor) 10 mg PO HS [facility] Last Admin: 08/22/18 21:55 Dose: 10 mg - Labs Labs: 08/20/18 06:53 08/20/18 06:53
--- NOTE | 2018-08-22 23:06 | CP.PCM.PN ---
Subjective - Date & Time of Evaluation Date of Evaluation: 08/19/18 Time of Evaluation: 23:05 - Subjective Subjective: Patient still awake and responding. Comfortable. On antibiotic. We will continue the current treatment. Stable otherwise. Discussed with the patient's daughter in detail. Objective - Vital Signs/Intake and Output Vital Signs (last 24 hours): Temp Pulse Resp BP Pulse Ox 98.1 F 89 20 118/66 95 08/22/18 15:00 08/22/18 15:00 08/22/18 15:00 08/22/18 15:00 08/22/18 15:00 - Medications Medications: Current Medications Acetaminophen (Tylenol 650 Mg Supp) 650 mg [place] Q6 PRN PRN Reason: Fever >100.4 F Albuterol/Ipratropium (Duoneb 3 Mg/0.5 Mg (3 Ml) Ud) 3 ml INH RQ6 [facility] Last Admin: 08/22/18 19:00 Dose: Not Given Aspirin (Aspirin Chewable) 81 mg PO DAILY [facility] Last Admin: 08/22/18 09:44 Dose: 81 mg Diltiazem HCl (Cardizem) 30 mg PO QID [facility] Last Admin: 08/22/18 22:04 Dose: Not Given Heparin Sodium (Porcine) (Heparin) 5,000 units SC Q8 [facility] Last Admin: 08/22/18 21:54 Dose: 5,000 units Moxifloxacin HCl (Avelox Iv 400mg/250ml Ns) 400 mg in 250 mls @ 167 mls/hr IVPB Q24H [facility]; Protocol Last Admin: 08/22/18 09:44 Dose: 167 mls/hr Insulin Glargine (Lantus) 25 unit SC HS [facility] Last Admin: 08/22/18 21:53 Dose: 25 units Insulin Human Regular (Novolin R) 0 unit SC ACHS [facility]; Protocol Last Admin: 08/22/18 21:30 Dose: Not Given Meclizine HCl (Antivert) 12.5 mg PO Q12 PRN PRN Reason: vertigo Metoprolol Tartrate (Lopressor) 50 mg PO BID [facility] Last Admin: 08/22/18 18:11 Dose: 50 mg Nystatin (Nystop Topical Powder) 1 applic TOP BID [facility] Last Admin: 08/22/18 22:34 Dose: 1 applic Pantoprazole Sodium (Protonix Susp) 40 mg PO 0600 [facility] Last Admin: 08/22/18 05:15 Dose: 40 mg Rosuvastatin Calcium (Crestor) 10 mg PO HS [facility] Last Admin: 08/22/18 21:55 Dose: 10 mg - Labs Labs: 08/20/18 06:53 08/20/18 06:53
--- NOTE | 2018-08-22 23:07 | CP.PCM.PN ---
Subjective - Date & Time of Evaluation Date of Evaluation: 08/20/18 Time of Evaluation: 23:06 - Subjective Subjective: Patient is awake and responding. Minimal discharge around the PEG tube noted. Vital signs otherwise stable. Chest good air entry Heart sounds are regular. Abdomen soft nontender. Edema 1+ in the legs noted. Labs are stable. Elevated glucose level noted. We will continue the current treatment. Possible discharge plan after the end of antibiotic course. will f/u Objective - Vital Signs/Intake and Output Vital Signs (last 24 hours): Temp Pulse Resp BP Pulse Ox 98.1 F 89 20 118/66 95 08/22/18 15:00 08/22/18 15:00 08/22/18 15:00 08/22/18 15:00 08/22/18 15:00 - Medications Medications: Current Medications Acetaminophen (Tylenol 650 Mg Supp) 650 mg [place] Q6 PRN PRN Reason: Fever >100.4 F Albuterol/Ipratropium (Duoneb 3 Mg/0.5 Mg (3 Ml) Ud) 3 ml INH RQ6 [facility] Last Admin: 08/22/18 19:00 Dose: Not Given Aspirin (Aspirin Chewable) 81 mg PO DAILY [facility] Last Admin: 08/22/18 09:44 Dose: 81 mg Diltiazem HCl (Cardizem) 30 mg PO QID [facility] Last Admin: 08/22/18 22:04 Dose: Not Given Heparin Sodium (Porcine) (Heparin) 5,000 units SC Q8 [facility] Last Admin: 08/22/18 21:54 Dose: 5,000 units Moxifloxacin HCl (Avelox Iv 400mg/250ml Ns) 400 mg in 250 mls @ 167 mls/hr IVPB Q24H [facility]; Protocol Last Admin: 08/22/18 09:44 Dose: 167 mls/hr Insulin Glargine (Lantus) 25 unit SC HS [facility] Last Admin: 08/22/18 21:53 Dose: 25 units Insulin Human Regular (Novolin R) 0 unit SC ACHS [facility]; Protocol Last Admin: 08/22/18 21:30 Dose: Not Given Meclizine HCl (Antivert) 12.5 mg PO Q12 PRN PRN Reason: vertigo Metoprolol Tartrate (Lopressor) 50 mg PO BID [facility] Last Admin: 08/22/18 18:11 Dose: 50 mg Nystatin (Nystop Topical Powder) 1 applic TOP BID [facility] Last Admin: 08/22/18 22:34 Dose: 1 applic Pantoprazole Sodium (Protonix Susp) 40 mg PO 0600 [facility] Last Admin: 08/22/18 05:15 Dose: 40 mg Rosuvastatin Calcium (Crestor) 10 mg PO HS [facility] Last Admin: 08/22/18 21:55 Dose: 10 mg - Labs Labs: 08/20/18 06:53 08/20/18 06:53
[2018-08-23] MEDS: Albuterol-Ipratrop 3 mg / 0.5 (3 ml) UD INH SCH ×4 (01:26→21:13)
[2018-08-23] MEDS: Pantoprazole 40 mg Susp UD PO SCH (05:06)
[2018-08-23] MEDS: (Novolin R) Insulin Human Regular 100 units/ml vial SC SCH ×4 (08:17→22:34)
[2018-08-23] MEDS: Moxifloxacin IV 400mg/250ml NS 400 MG/250 ML BAG IVPB SCH (10:43)
--- NOTE | 2018-08-23 19:32 | CP.PCM.CON ---
History of Present Illness - History of Present Illness History of Present Illness: INFECTIOUS DISEASE CONSULT; HPI; 88-year-old female with past medical history of hypertension, COPD, CAD, CABG, hypercholesterolemia, past aspiration pneumonia and tracheostomy, and GI bleed with history of PEG tube was brought into the ED by her daughter on 08/15/18 because of malfunction of the PEG, which was reinserted and patient was d ischarged home on Macrobid. Patient now admitted on 08/17/18 as stated by the daughter that patient does not feel well and subjective fevers. Patient unable to give any history or respond to questions. Patient was found to have pneumonia and UTI with positive ESBL Klebsiella pneumoniae. Patient also was having some drainage around the PEG tube. Resident patient on IV Avelox 400 mg once a day daily. Patient is allergic to penicillin. Infectious disease consult requested by PMD for further evaluation for UTI and pneumonia. PATIENT WAS RECENTLY ALSO HOSPITALIZED WITH RECURRENT UTIS. PMH: Anxiety, Arthritis, Bronchitis, CAD, Cardia Arrhythmia, CHF, COPD, Diabetes, GERD (esophageal stricture), HTN, Hypercholesterolemia, Osteoporosis, Pneumonia, Rheumatoid Arthritis Denies: HIV, Chronic Kidney Disease, Seizures, Sexually Transmitted Disease Surgical History: CABG (12/16/1991), Carotid Endarterectomy (06/13/05), Coronary Stent, Pacemaker Family History: States: Unknown Family Hx - Social History Hx Tobacco Use: No Hx Alcohol Use: No Hx Substance Use: No - Immunization History Hx Tetanus Toxoid Vaccination: No Hx Influenza Vaccination: No Hx Pneumococcal Vaccination: No Review Of Systems Review Of Systems: ROS cannot be obtained secondary to pt's inabilty to answer questions. ALLERGY; PCN. PATIENT HAS TOLERATED iv AZACTAM IN THE PAST. Also allergy to IODINE, CLOPIDOGREL, LOSARTAN, NITROGLYCERIN IN. DISCUSSED WITH DAUGHTER Eliseo TELEPHONE [phone] ABOUT PENICILLIN ALLERGY. SHE IS NOT VERY SURE ABOUT HER ALLERGIES.WANTS ME TO TRY TO RECTIFY IT. aS PER DISCUSSION WILL GIVE A TEST DOSE. PMD- Dr. Patel Review of Systems - Review of Systems Systems not reviewed;Unavailable: Dementia, Altered Mental Status All systems: reviewed and no additional remarkable complaints except (HPI) Past Patient History - Infectious Disease Hx of Infectious Diseases: None - Past Medical History & Family History Past Medical History?: Yes - Past Social History Smoking Status: Former Smoker - CARDIAC Hx Congestive Heart Failure: Yes Hx Hypercholesterolemia: Yes Hx Hypertension: Yes - PULMONARY Hx Chronic Obstructive Pulmonary Disease (COPD): Yes - NEUROLOGICAL Hx Seizures: No - HEENT Hx HEENT Problems: Yes Hx Cataracts: Yes (2000 Rt.Eye,2009Left Eye) - RENAL Hx Chronic Kidney Disease: No - ENDOCRINE/METABOLIC Hx Diabetes Mellitus Type 2: Yes - HEMATOLOGICAL/ONCOLOGICAL Hx Human Immunodeficiency Virus (HIV): No - INTEGUMENTARY Hx Dermatological Problems: Yes Other/Comment: sore in the sacral area. heel sore - MUSCULOSKELETAL/RHEUMATOLOGICAL Hx Arthritis: Yes Hx Rheumatoid Arthritis: Yes - GASTROINTESTINAL Hx Gastrointestinal Disorders: Yes Hx Colitis: Yes Hx Gastroesophageal Reflux: Yes HX Swallowing Problems: Yes (Achalasia. See HPI) Other/Comment: peg tube - NOT IN PLACE today 08/15/2018 - GENITOURINARY/GYNECOLOGICAL Hx Sexually Transmitted Disorders: No - PSYCHIATRIC Hx Anxiety: Yes Hx Substance Use: No - SURGICAL HISTORY Hx Carotid Endarterectomy: Yes (06/13/05) Hx Coronary Artery Bypass Graft: Yes (12/16/1991) Hx Coronary Stent: Yes - ANESTHESIA Hx Anesthesia: Yes Hx Anesthesia Reactions: No Hx Malignant Hyperthermia: No Meds Allergies/Adverse Reactions: Allergies Allergy/AdvReac Type Severity Reaction Status Date / Time iodine Allergy REDNESS Verified 08/15/18 10:13 Penicillins Allergy ANGIOEDEMA Verified 08/15/18 10:13 clopidogrel [From Plavix] AdvReac HEADACHE Verified 08/15/18 10:13 losartan [From Cozaar] AdvReac DIZZINESS Verified 08/15/18 10:13 nitroglycerin AdvReac DIZZINESS Verified 08/15/18 10:13 - Medications Medications: Current Medications Acetaminophen (Tylenol 650 Mg Supp) 650 mg [place] Q6 PRN PRN Reason: Fever >100.4 F Albuterol/Ipratropium (Duoneb 3 Mg/0.5 Mg (3 Ml) Ud) 3 ml INH RQ6 [facility] Last Admin: 08/23/18 13:05 Dose: 3 ml Aspirin (Aspirin Chewable) 81 mg PO DAILY [facility] Last Admin: 08/23/18 10:43 Dose: 81 mg Diltiazem HCl (Cardizem) 30 mg PO QID [facility] Last Admin: 08/23/18 17:02 Dose: 30 mg Heparin Sodium (Porcine) (Heparin) 5,000 units SC Q8 [facility] Last Admin: 08/23/18 14:06 Dose: 5,000 units Insulin Glargine (Lantus) 25 unit SC [facility] Last Admin: 08/22/18 21:53 Dose: 25 units Insulin Human Regular (Novolin R) 0 unit SC [facility]; Protocol Last Admin: 08/23/18 17:02 Dose: 3 units Meclizine HCl (Antivert) 12.5 mg PO Q12 PRN PRN Reason: vertigo Metoprolol Tartrate (Lopressor) 50 mg PO BID [facility] Last Admin: 08/23/18 17:02 Dose: 50 mg Nystatin (Nystop Topical Powder) 1 applic TOP BID [facility] Last Admin: 08/23/18 15:18 Dose: 1 applic Pantoprazole Sodium (Protonix Susp) 40 mg PO 0600 [facility] Last Admin: 08/23/18 05:06 Dose: 40 mg Rosuvastatin Calcium (Crestor) 10 mg PO [facility] Last Admin: 08/22/18 21:55 Dose: 10 mg Physical Exam - Constitutional Appears: No Acute Distress - Head Exam Head Exam: NORMAL INSPECTION - Eye Exam Eye Exam: EOMI, PERRL - ENT Exam ENT Exam: Normal Oropharynx - Neck Exam Neck exam: Positive for: Normal Inspection - Respiratory Exam Respiratory Exam: Decreased Breath Sounds (BASES.), Rhonchi (FEW SCATTERED RHONCHI.) - Cardiovascular Exam Cardiovascular Exam: REGULAR RHYTHM, +S1, +S2 - GI/Abdominal Exam GI & Abdominal Exam: Normal Bowel Sounds (.), Soft - Extremities Exam Extremities exam: Positive for: pedal edema, pedal pulses present. Negative for: calf tenderness - Neurological Exam Neurological exam: Altered, CN II-XII Intact - Skin Skin Exam: Dry, Normal Color Results - Vital Signs Recent Vital Signs: Last Vital Signs Temp 98.6 F 08/23/18 07:00 Pulse 85 08/23/18 07:00 Resp 20 08/23/18 07:00 BP 140/70 08/23/18 07:00 Pulse Ox 100 08/23/18 07:00 - Labs Result Diagrams: 08/20/18 06:53 08/20/18 06:53 Labs: Laboratory Results - last 24 hr 08/22/18 08/23/18 08/23/18 21:05 07:09 10:56 POC Glucose (mg/dL) 228 H 299 H 255 H 08/23/18 16:28 POC Glucose (mg/dL) 266 H - Imaging and Cardiology Chest x-ray Status: [facility] Small bilateral pleural effusions) Assessment & Plan (1) Altered mental status Status: Acute (2) UTI (urinary tract infection) Status: Acute (3) Pneumonia Status: Acute (4) PEG tube malfunction Status: Acute - Assessment and Plan (Free Text) Plan: PLAN; PANCULTURES. DC IV AVELOX. START IV AVYCAZ 1.25 GM IN 250 CC, TO INFUSE OVER 5 HOURS A TEST DOSE WITH CLOSE MONITORING OF VITAL SIGNS, AND SKIN RASHES. AND IF TOLERATED, TO CONTINUE 1.25GM Q 8HRLY FOR MDR UTI / ? ASPIRATION PNEUMONIA. DISCUSSED WITH DAUGHTER IN DETAIL, ABOUT A PENICILLIN ALLERGY. SHE STATED IT HAPPENED MANY, MANY YEARS AGO BUT DOES NOT REMEMBER ANY EVENTS ABOUT IT. wANTS ME TO TRY IF IT CAN BE RECTIFIED. WE WILL TRY THE FIRST TEST DOSE. SPOKE TO THE PHARMACIST/AND STAFF TO MONITOR PATIENT CLOSELY. NEWER CEPHALOSPORINS OF THIRD AND FOURTH GENERATIONS DO NOT HAVE MUCH CROSS ALLERGENICITY WITH PENICILLINS AND ARE WELL TOLERATED. ASKED STAFF TO MONITOR CLOSELY WHILE 1ST DOSE INFUSING.
[2018-08-23] MEDS: (Lantus) Insulin Glargine, Recombinant SC SCH (22:14)
[2018-08-23] MEDS: SODIUM CHLORIDE 0.9% IV SCH (22:14)
[2018-08-23] MEDS: AVIBACTAM IV SCH (22:14)
[2018-08-23] MEDS: CEFTAZIDIME IV SCH (22:14)
[2018-08-24] MEDS: Albuterol-Ipratrop 3 mg / 0.5 (3 ml) UD INH SCH ×3 (01:15→13:53)
[2018-08-24] MEDS: AVIBACTAM IV SCH ×3 (05:00→21:23)
[2018-08-24] MEDS: CEFTAZIDIME IV SCH ×3 (05:00→21:23)
[2018-08-24] MEDS: SODIUM CHLORIDE 0.9% IV SCH ×3 (05:00→21:23)
[2018-08-24] MEDS: Pantoprazole 40 mg Susp UD PO SCH (05:05)
[2018-08-24] MEDS: (Novolin R) Insulin Human Regular 100 units/ml vial SC SCH ×4 (08:30→21:44)
--- NOTE | 2018-08-24 14:39 | CP.PCM.PN ---
Subjective - Date & Time of Evaluation Date of Evaluation: 08/24/18 Time of Evaluation: 14:39 - Subjective Subjective: AFEBRILE, TACHYCARDIC RESTING COMFORTABLY. nONVERBAL TOLERATED IV AVYCAZ WITHOUT ANY RASH OR SIDE EFFECTS.. pATIENT IS BEING MONITORED CLOSELY. Objective - Vital Signs/Intake and Output Vital Signs (last 24 hours): Temp Pulse Resp BP Pulse Ox 98.7 F 100 H 20 118/70 99 08/24/18 07:00 08/24/18 07:00 08/24/18 07:00 08/24/18 07:00 08/24/18 07:00 Intake and Output: 08/24/18 08/24/18 06:59 18:59 Intake Total 920 Output Total 400 300 Balance 520 -300 - Medications Medications: Current Medications Acetaminophen (Tylenol 650 Mg Supp) 650 mg [place] Q6 PRN PRN Reason: Fever >100.4 F Acetaminophen (Tylenol 650 Mg Supp) 650 mg NC STAT STA Stop: 08/24/18 14:38 Albuterol/Ipratropium (Duoneb 3 Mg/0.5 Mg (3 Ml) Ud) 3 ml INH RQ6 [facility] Last Admin: 08/24/18 13:53 Dose: 3 ml Aspirin (Aspirin Chewable) 81 mg PO DAILY [facility] Last Admin: 08/24/18 10:59 Dose: 81 mg Diltiazem HCl (Cardizem) 30 mg PO QID [facility] Last Admin: 08/24/18 10:59 Dose: 30 mg Heparin Sodium (Porcine) (Heparin) 5,000 units SC Q8 [facility] Last Admin: 08/24/18 05:05 Dose: 5,000 units Ceftazidime/Avibactam 1.25 gm/ (Sodium Chloride) 250 mls @ 50 mls/hr IV Q8H [facility]; Protocol Last Admin: 08/24/18 12:48 Dose: 50 mls/hr Insulin Glargine (Lantus) 25 unit SC HS [facility] Last Admin: 08/23/18 22:14 Dose: 25 units Insulin Human Regular (Novolin R) 0 unit SC ACHS [facility]; Protocol Last Admin: 08/24/18 12:43 Dose: 3 units Meclizine HCl (Antivert) 12.5 mg PO Q12 PRN PRN Reason: vertigo Metoprolol Tartrate (Lopressor) 50 mg PO BID [facility] Last Admin: 08/24/18 10:59 Dose: 50 mg Nystatin (Nystop Topical Powder) 1 applic TOP BID [facility] Last Admin: 08/24/18 10:59 Dose: 1 applic Pantoprazole Sodium (Protonix Susp) 40 mg PO 0600 [facility] Last Admin: 08/24/18 05:05 Dose: 40 mg Rosuvastatin Calcium (Crestor) 10 mg PO HS [facility] Last Admin: 08/23/18 22:14 Dose: 10 mg - Labs Labs: 08/20/18 06:53 08/20/18 06:53 - Constitutional Appears: No Acute Distress, Confused, Chronically Ill - Head Exam Head Exam: NORMAL INSPECTION - Eye Exam Eye Exam: EOMI, PERRL - ENT Exam ENT Exam: Normal Oropharynx - Neck Exam Neck Exam: Normal Inspection - Respiratory Exam Respiratory Exam: Decreased Breath Sounds - Cardiovascular Exam Cardiovascular Exam: Tachycardia, REGULAR RHYTHM, +S1, +S2 - GI/Abdominal Exam GI & Abdominal Exam: Soft, Normal Bowel Sounds (PEG IN PLACE) - Extremities Exam Extremities Exam: absent: Calf Tenderness, Pedal Edema - Back Exam Back Exam: CVA tenderness (L) - Neurological Exam Neurological Exam: Awake - Psychiatric Exam Psychiatric exam: Flat Affect - Skin Skin Exam: Normal Color Assessment and Plan (1) UTI (urinary tract infection) Status: Acute (2) Altered mental status Status: Acute (3) Pneumonia Status: Acute (4) PEG tube malfunction Assessment & Plan: S/P REINSERTION. Status: Acute - Assessment and Plan (Free Text) Plan: CONTINUE iv ANTIBIOTICS. MONITOR CLOSELY FOR ANY HYPERSENSITIVITY REACTION/OR SKIN RASH.
[2018-08-24] MEDS: (Lantus) Insulin Glargine, Recombinant SC SCH (21:44)
[2018-08-25] MEDS: Albuterol-Ipratrop 3 mg / 0.5 (3 ml) UD INH SCH ×4 (01:24→20:01)
[2018-08-25] MEDS: SODIUM CHLORIDE 0.9% IV SCH ×3 (05:00→21:43)
[2018-08-25] MEDS: CEFTAZIDIME IV SCH ×3 (05:00→21:43)
[2018-08-25] MEDS: AVIBACTAM IV SCH ×3 (05:00→21:43)
[2018-08-25] MEDS: Pantoprazole 40 mg Susp UD PO SCH (05:00)
[2018-08-25] MEDS: (Novolin R) Insulin Human Regular 100 units/ml vial SC SCH ×4 (08:16→21:43)
[2018-08-25] MEDS: (Lantus) Insulin Glargine, Recombinant SC SCH (21:36)
[2018-08-26] MEDS: Albuterol-Ipratrop 3 mg / 0.5 (3 ml) UD INH SCH ×4 (01:53→20:00)
[2018-08-26] MEDS: AVIBACTAM IV SCH ×3 (06:00→22:10)
[2018-08-26] MEDS: CEFTAZIDIME IV SCH ×3 (06:00→22:10)
[2018-08-26] MEDS: Pantoprazole 40 mg Susp UD PO SCH (06:00)
[2018-08-26] MEDS: SODIUM CHLORIDE 0.9% IV SCH ×3 (06:00→22:10)
[2018-08-26] MEDS: (Novolin R) Insulin Human Regular 100 units/ml vial SC SCH ×4 (08:21→22:04)
--- NOTE | 2018-08-26 11:32 | CP.PCM.PN ---
Subjective - Date & Time of Evaluation Date of Evaluation: 08/26/18 Time of Evaluation: 11:32 - Subjective Subjective: afebrile, More awake. tachycardic NO ACUTE EVENTS OVERNIGHT. Tolerated IV Merrem without any reactions.-day 4 . F/U LABS. F/U REPEAT UA /URINE CULTURE Objective - Vital Signs/Intake and Output Vital Signs (last 24 hours): Temp Pulse Resp BP Pulse Ox 98.1 F 116 H 20 132/82 98 08/26/18 07:00 08/26/18 07:00 08/26/18 07:00 08/26/18 07:00 08/26/18 07:00 Intake and Output: 08/26/18 08/26/18 06:59 18:59 Intake Total 520 Output Total 300 Balance 220 - Medications Medications: Current Medications Acetaminophen (Tylenol 650 Mg Supp) 650 mg [place] Q6 PRN PRN Reason: Fever >100.4 F Albuterol/Ipratropium (Duoneb 3 Mg/0.5 Mg (3 Ml) Ud) 3 ml INH RQ6 [facility] Last Admin: 08/26/18 07:55 Dose: 3 ml Aspirin (Aspirin Chewable) 81 mg PO DAILY [facility] Last Admin: 08/26/18 09:59 Dose: 81 mg Diltiazem HCl (Cardizem) 30 mg PO QID [facility] Last Admin: 08/26/18 09:59 Dose: 30 mg Heparin Sodium (Porcine) (Heparin) 5,000 units SC Q8 [facility] Last Admin: 08/26/18 06:00 Dose: 5,000 units Ceftazidime/Avibactam 1.25 gm/ (Sodium Chloride) 250 mls @ 50 mls/hr IV Q8H [facility]; Protocol Last Admin: 08/26/18 06:00 Dose: 50 mls/hr Insulin Glargine (Lantus) 25 unit SC HS [facility] Last Admin: 08/25/18 21:36 Dose: 25 units Insulin Human Regular (Novolin R) 0 unit SC ACHS [facility]; Protocol Last Admin: 08/26/18 08:21 Dose: 2 units Meclizine HCl (Antivert) 12.5 mg PO Q12 PRN PRN Reason: vertigo Metoprolol Tartrate (Lopressor) 50 mg PO BID [facility] Last Admin: 08/26/18 09:59 Dose: 50 mg Nystatin (Nystop Topical Powder) 1 applic TOP BID [facility] Last Admin: 08/26/18 09:59 Dose: 1 applic Pantoprazole Sodium (Protonix Susp) 40 mg PO 0600 [facility] Last Admin: 08/26/18 06:00 Dose: 40 mg Rosuvastatin Calcium (Crestor) 10 mg PO HS [facility] Last Admin: 08/25/18 21:39 Dose: 10 mg - Labs Labs: 08/20/18 06:53 08/20/18 06:53 - Constitutional Appears: No Acute Distress, Chronically Ill - Head Exam Head Exam: NORMAL INSPECTION - Eye Exam Eye Exam: EOMI, PERRL - ENT Exam ENT Exam: Normal Oropharynx - Neck Exam Neck Exam: Normal Inspection - Respiratory Exam Respiratory Exam: Decreased Breath Sounds - Cardiovascular Exam Cardiovascular Exam: Tachycardia, REGULAR RHYTHM, +S1, +S2 - GI/Abdominal Exam GI & Abdominal Exam: Soft, Normal Bowel Sounds - Extremities Exam Extremities Exam: Pedal Edema. absent: Calf Tenderness - Neurological Exam Neurological Exam: Awake, CN II-XII Intact - Psychiatric Exam Psychiatric exam: Flat Affect - Skin Skin Exam: Normal Color, Warm Assessment and Plan (1) UTI (urinary tract infection) Status: Acute (2) Altered mental status Status: Acute (3) Pneumonia Status: Acute (4) PEG tube malfunction Status: Acute - Assessment and Plan (Free Text) Plan: CONTINUE iv ANTIBIOTICS.day 4 x 3days more f/u repeat urine cultures Follow-up blood works. Continue contact precautions. Will discuss with PMD.
--- NOTE | 2018-08-26 17:32 | CP.PCM.PN ---
Subjective - Date & Time of Evaluation Date of Evaluation: 08/26/18 Time of Evaluation: 17:32 - Subjective Subjective: pt is on antibiotics no fever no chest pain will continue current Objective - Vital Signs/Intake and Output Vital Signs (last 24 hours): Temp Pulse Resp BP Pulse Ox 97.3 F L 101 H 20 135/70 98 08/26/18 16:30 08/26/18 16:30 08/26/18 16:30 08/26/18 16:30 08/26/18 16:30 Intake and Output: 08/26/18 08/26/18 06:59 18:59 Intake Total 520 770 Output Total 300 350 Balance 220 420 - Medications Medications: Current Medications Acetaminophen (Tylenol 650 Mg Supp) 650 mg [place] Q6 PRN PRN Reason: Fever >100.4 F Albuterol/Ipratropium (Duoneb 3 Mg/0.5 Mg (3 Ml) Ud) 3 ml INH RQ6 [facility] Last Admin: 08/26/18 15:08 Dose: Not Given Aspirin (Aspirin Chewable) 81 mg PO DAILY [facility] Last Admin: 08/26/18 09:59 Dose: 81 mg Diltiazem HCl (Cardizem) 30 mg PO QID [facility] Last Admin: 08/26/18 14:11 Dose: 30 mg Enoxaparin Sodium (Lovenox) 40 mg SC DAILY [facility] Ceftazidime/Avibactam 1.25 gm/ (Sodium Chloride) 250 mls @ 50 mls/hr IV Q8H [facility]; Protocol Last Admin: 08/26/18 14:00 Dose: 50 mls/hr Insulin Glargine (Lantus) 25 unit SC HS [facility] Last Admin: 08/25/18 21:36 Dose: 25 units Insulin Human Regular (Novolin R) 0 unit SC ACHS [facility]; Protocol Last Admin: 08/26/18 12:19 Dose: 3 units Meclizine HCl (Antivert) 12.5 mg PO Q12 PRN PRN Reason: vertigo Metoprolol Tartrate (Lopressor) 50 mg PO BID [facility] Last Admin: 08/26/18 09:59 Dose: 50 mg Nystatin (Nystop Topical Powder) 1 applic TOP BID [facility] Last Admin: 08/26/18 09:59 Dose: 1 applic Pantoprazole Sodium (Protonix Susp) 40 mg PO 0600 [facility] Last Admin: 08/26/18 06:00 Dose: 40 mg Rosuvastatin Calcium (Crestor) 10 mg PO [facility] Last Admin: 08/25/18 21:39 Dose: 10 mg - Labs Labs: 08/20/18 06:53 08/20/18 06:53
[2018-08-26] MEDS: (Lantus) Insulin Glargine, Recombinant SC SCH (22:03)
[2018-08-27 00:30] LABS: SQUAMOUS EPITHIAL < 1 /hpf (0-5); URINE BACTERIA RARE (<OCC); URINE BILIRUBIN NEGATIVE (NEGATIVE); URINE BLOOD NEGATIVE (NEGATIVE); URINE CLARITY Clear (Clear); URINE COLOR Yellow (YELLOW); URINE GLUCOSE (UA) 3+ mg/dL (Normal); URINE LEUKOCYTE ESTERASE NEG Leu/uL (Negative); URINE PROTEIN 1+ mg/dL (NEGATIVE); URINE UROBILINOGEN NORMAL mg/dL (0.2-1.0)
[2018-08-27] MEDS: Albuterol-Ipratrop 3 mg / 0.5 (3 ml) UD INH SCH ×4 (02:38→19:46)
[2018-08-27] MEDS: CEFTAZIDIME IV SCH ×3 (05:36→21:45)
[2018-08-27] MEDS: AVIBACTAM IV SCH ×3 (05:36→21:45)
[2018-08-27] MEDS: SODIUM CHLORIDE 0.9% IV SCH ×3 (05:36→21:45)
[2018-08-27] MEDS: Pantoprazole 40 mg Susp UD PO SCH (05:42)
[2018-08-27] MEDS: (Novolin R) Insulin Human Regular 100 units/ml vial SC SCH ×4 (08:24→21:45)
[2018-08-27 08:25] LABS: BASO # 0.1 K/uL (0.0-0.2); BASO % 1.4 % (0.0-2.0); EOS # 0.8 K/uL (0.0-0.7); EOS % 8.2 % (0.0-4.0); HEMOGLOBIN 9.9 g/dL (11.0-16.0); LYMPH # 1.5 K/uL (1.0-4.3); LYMPH % 15.9 % (20.0-40.0); MEAN CELL VOLUME 96.2 fL (81.0-99.0); MEAN CORPUSCULAR HEMOGLOBIN 32.5 pg (27.0-31.0); MEAN CORPUSCULAR HGB CONC 33.8 g/dL (33.0-37.0); MEAN PLATELET VOLUME 7.9 fL (7.2-11.7); MONO # 0.8 K/uL (0.0-0.8); MONO % 8.3 % (0.0-10.0); NEUT # 6.2 K/uL (1.8-7.0); NEUT % 66.2 % (50.0-75.0); RBC 3.04 Mil/uL (3.80-5.20); WHITE BLOOD COUNT 9.4 K/uL (4.8-10.8)
[2018-08-27 08:47] LABS: ALB/GLOB RATIO 1.3 (1.0-2.1); ALBUMIN 3.8 g/dL (3.5-5.0); ALT/SGPT 9 U/L (9-52); AST/SGOT 20 U/L (14-36); BILIRUBIN,DIRECT 0.4 mg/dL (0.0-0.4); BLOOD UREA NITROGEN 34 mg/dL (7-17); CALCIUM 9.8 mg/dl (8.6-10.4); GFR NON-AFRICAN AMERICAN > 60
[2018-08-27] MEDS: Enoxaparin 40 mg Syringe SC SCH (09:54)
--- NOTE | 2018-08-27 14:29 | CP.PCM.PN ---
Subjective - Date & Time of Evaluation Date of Evaluation: 08/27/18 Time of Evaluation: 14:29 - Subjective Subjective: AFEBRILE NO ACUTE EVENTS OVERNIGHT. Tolerated IV Merrem without any reactions.-day 5. F/U LABS. F/U REPEAT UA /URINE CULTURE 08/27/18 Objective - Vital Signs/Intake and Output Vital Signs (last 24 hours): Temp Pulse Resp BP Pulse Ox 98.6 F 89 20 135/73 99 08/27/18 07:00 08/27/18 13:01 08/27/18 13:01 08/27/18 13:01 08/27/18 07:00 Intake and Output: 08/27/18 08/27/18 06:59 18:59 Intake Total 1540 Output Total 400 200 Balance 1140 -200 - Medications Medications: Current Medications Acetaminophen (Tylenol 650 Mg Supp) 650 mg [place] Q6 PRN PRN Reason: Fever >100.4 F Albuterol/Ipratropium (Duoneb 3 Mg/0.5 Mg (3 Ml) Ud) 3 ml INH RQ6 [facility] Last Admin: 08/27/18 07:50 Dose: 3 ml Aspirin (Aspirin Chewable) 81 mg PO DAILY [facility] Last Admin: 08/27/18 09:54 Dose: 81 mg Diltiazem HCl (Cardizem) 30 mg PO QID [facility] Last Admin: 08/27/18 13:06 Dose: 30 mg Enoxaparin Sodium (Lovenox) 40 mg SC DAILY [facility] Last Admin: 08/27/18 09:54 Dose: 40 mg Ceftazidime/Avibactam 1.25 gm/ (Sodium Chloride) 250 mls @ 50 mls/hr IV Q8H [facility]; Protocol Last Admin: 08/27/18 13:06 Dose: 50 mls/hr Insulin Glargine (Lantus) 25 unit SC HS [facility] Last Admin: 08/26/18 22:03 Dose: 25 units Insulin Human Regular (Novolin R) 0 unit SC ACHS [facility]; Protocol Last Admin: 08/27/18 11:33 Dose: 4 units Meclizine HCl (Antivert) 12.5 mg PO Q12 PRN PRN Reason: vertigo Metoprolol Tartrate (Lopressor) 50 mg PO BID [facility] Last Admin: 08/27/18 09:54 Dose: 50 mg Nystatin (Nystop Topical Powder) 1 applic TOP BID [facility] Last Admin: 08/27/18 09:54 Dose: 1 applic Pantoprazole Sodium (Protonix Susp) 40 mg PO 0600 [facility] Last Admin: 08/27/18 05:42 Dose: 40 mg Rosuvastatin Calcium (Crestor) 10 mg PO HS [facility] Last Admin: 08/26/18 22:03 Dose: 10 mg - Labs Labs: 08/27/18 08:19 08/27/18 08:19 - Constitutional Appears: No Acute Distress, Chronically Ill - Head Exam Head Exam: NORMAL INSPECTION - Eye Exam Eye Exam: PERRL - ENT Exam ENT Exam: Normal Oropharynx - Neck Exam Neck Exam: Normal Inspection - Respiratory Exam Respiratory Exam: Decreased Breath Sounds - Cardiovascular Exam Cardiovascular Exam: Tachycardia, REGULAR RHYTHM, +S1, +S2 - GI/Abdominal Exam GI & Abdominal Exam: Soft, Normal Bowel Sounds (+VE peg) - Extremities Exam Extremities Exam: absent: Calf Tenderness, Pedal Edema - Neurological Exam Neurological Exam: Awake (sleepy,opens eyes) - Psychiatric Exam Psychiatric exam: Flat Affect - Skin Skin Exam: Normal Color, Warm Assessment and Plan (1) UTI (urinary tract infection) Status: Acute (2) Altered mental status Status: Acute (3) Pneumonia Status: Acute (4) PEG tube malfunction Status: Acute - Assessment and Plan (Free Text) Plan: CONTINUE iv ANTIBIOTICS.day 5 x 2 days more f/u repeat urine cultures Follow-up blood works. Continue contact precautions. Will discuss with PMD.
[2018-08-27] MEDS: (Lantus) Insulin Glargine, Recombinant SC SCH (21:44)
[2018-08-28] MEDS: Albuterol-Ipratrop 3 mg / 0.5 (3 ml) UD INH SCH ×4 (01:40→20:07)
[2018-08-28] MEDS: SODIUM CHLORIDE 0.9% IV SCH ×3 (05:17→21:33)
[2018-08-28] MEDS: Pantoprazole 40 mg Susp UD PO SCH (05:17)
[2018-08-28] MEDS: AVIBACTAM IV SCH ×3 (05:17→21:33)
[2018-08-28] MEDS: CEFTAZIDIME IV SCH ×3 (05:17→21:33)
[2018-08-28] MEDS: (Novolin R) Insulin Human Regular 100 units/ml vial SC SCH ×4 (08:35→21:32)
[2018-08-28] MEDS: Enoxaparin 40 mg Syringe SC SCH (10:22)
--- NOTE | 2018-08-28 20:07 | CP.PCM.PN ---
Subjective - Date & Time of Evaluation Date of Evaluation: 08/28/18 Time of Evaluation: 20:05 - Subjective Subjective: Patient is alert and awake. She is not in any distress. Wound is being managed, patient has a sacral decubiti. No chest pain or shortness of breath On examination: Vital signs stable. Chest clear Regular heart sounds. Edema in the legs 1+ noted Patient has a ESBL Klebsiella UTI. On antibiotic. As per ID patient will need antibiotic. We will continue the supportive treatment Objective - Vital Signs/Intake and Output Vital Signs (last 24 hours): Temp Pulse Resp BP Pulse Ox 98.9 F 82 20 135/72 100 08/28/18 17:23 08/28/18 17:23 08/28/18 17:23 08/28/18 17:23 08/28/18 17:23 Intake and Output: 08/28/18 08/29/18 18:59 06:59 Intake Total 1540 Balance 1540 - Medications Medications: Current Medications Acetaminophen (Tylenol 650 Mg Supp) [address] Q6 PRN PRN Reason: Fever >100.4 F Albuterol/Ipratropium (Duoneb 3 Mg/0.5 Mg (3 Ml) Ud) 3 ml INH RQ6 [facility] Last Admin: 08/28/18 13:32 Dose: Not Given Aspirin (Aspirin Chewable) 81 mg PO DAILY [facility] Last Admin: 08/28/18 10:22 Dose: 81 mg Diltiazem HCl (Cardizem) 30 mg PO QID [facility] Last Admin: 08/28/18 18:00 Dose: 30 mg Enoxaparin Sodium (Lovenox) 40 mg SC DAILY [facility] Last Admin: 08/28/18 10:22 Dose: 40 mg Ceftazidime/Avibactam 1.25 gm/ (Sodium Chloride) 250 mls @ 50 mls/hr IV Q8H [facility]; Protocol Last Admin: 08/28/18 12:10 Dose: 50 mls/hr Insulin Glargine (Lantus) 25 unit SC HS [facility] Last Admin: 08/27/18 21:44 Dose: 258 units Insulin Human Regular (Novolin R) 0 unit SC ACHS [facility]; Protocol Last Admin: 08/28/18 18:05 Dose: 2 units Meclizine HCl (Antivert) 12.5 mg PO Q12 PRN PRN Reason: vertigo Metoprolol Tartrate (Lopressor) 50 mg PO BID [facility] Last Admin: 08/28/18 18:02 Dose: 50 mg Nystatin (Nystop Topical Powder) 1 applic TOP BID [facility] Last Admin: 08/28/18 18:32 Dose: 1 applic Pantoprazole Sodium (Protonix Susp) 40 mg PO 0600 [facility] Last Admin: 08/28/18 05:17 Dose: 40 mg Rosuvastatin Calcium (Crestor) 10 mg PO HS [facility] Last Admin: 08/27/18 21:44 Dose: 10 mg - Labs Labs: 08/27/18 08:19 08/27/18 08:19
[2018-08-28] MEDS: (Lantus) Insulin Glargine, Recombinant SC SCH (21:41)
--- NOTE | 2018-08-28 23:50 | CP.PCM.PN ---
Subjective - Date & Time of Evaluation Date of Evaluation: 08/28/18 Time of Evaluation: 23:50 - Subjective Subjective: AFEBRILE NO ACUTE EVENTS OVERNIGHT. Tolerated IV Merrem without any reactions.-day 6. F/U LABS. F/U REPEAT UA /URINE CULTURE 08/27/18 - P Objective - Vital Signs/Intake and Output Vital Signs (last 24 hours): Temp Pulse Resp BP Pulse Ox 98.9 F 82 20 135/72 100 08/28/18 17:23 08/28/18 17:23 08/28/18 17:23 08/28/18 17:23 08/28/18 17:23 Intake and Output: 08/28/18 08/29/18 18:59 06:59 Intake Total 1540 520 Balance 1540 520 - Medications Medications: Current Medications Acetaminophen (Tylenol 650 Mg Supp) 650 mg [place] Q6 PRN PRN Reason: Fever >100.4 F Albuterol/Ipratropium (Duoneb 3 Mg/0.5 Mg (3 Ml) Ud) 3 ml INH RQ6 [facility] Last Admin: 08/28/18 20:07 Dose: Not Given Aspirin (Aspirin Chewable) 81 mg PO DAILY [facility] Last Admin: 08/28/18 10:22 Dose: 81 mg Diltiazem HCl (Cardizem) 30 mg PO QID [facility] Last Admin: 08/28/18 21:41 Dose: 30 mg Enoxaparin Sodium (Lovenox) 40 mg SC DAILY [facility] Last Admin: 08/28/18 10:22 Dose: 40 mg Ceftazidime/Avibactam 1.25 gm/ (Sodium Chloride) 250 mls @ 50 mls/hr IV Q8H [facility]; Protocol Last Admin: 08/28/18 21:33 Dose: 50 mls/hr Insulin Glargine (Lantus) 25 unit SC HS [facility] Last Admin: 08/28/18 21:41 Dose: 25 units Insulin Human Regular (Novolin R) 0 unit SC ACHS [facility]; Protocol Last Admin: 08/28/18 21:32 Dose: Not Given Meclizine HCl (Antivert) 12.5 mg PO Q12 PRN PRN Reason: vertigo Metoprolol Tartrate (Lopressor) 50 mg PO BID [facility] Last Admin: 08/28/18 18:02 Dose: 50 mg Nystatin (Nystop Topical Powder) 1 applic TOP BID [facility] Last Admin: 08/28/18 18:32 Dose: 1 applic Pantoprazole Sodium (Protonix Susp) 40 mg PO 0600 [facility] Last Admin: 08/28/18 05:17 Dose: 40 mg Rosuvastatin Calcium (Crestor) 10 mg PO HS [facility] Last Admin: 08/28/18 21:41 Dose: 10 mg - Labs Labs: 08/27/18 08:19 08/27/18 08:19 - Constitutional Appears: No Acute Distress, Chronically Ill - Head Exam Head Exam: NORMAL INSPECTION - Eye Exam Eye Exam: PERRL - ENT Exam ENT Exam: Normal Oropharynx - Neck Exam Neck Exam: Normal Inspection - Respiratory Exam Respiratory Exam: Clear to Ausculation Bilateral - Cardiovascular Exam Cardiovascular Exam: REGULAR RHYTHM, +S1, +S2 - GI/Abdominal Exam GI & Abdominal Exam: Soft, Normal Bowel Sounds - Extremities Exam Extremities Exam: Normal Capillary Refill. absent: Calf Tenderness, Pedal Edema - Neurological Exam Neurological Exam: Awake, CN II-XII Intact - Psychiatric Exam Psychiatric exam: Flat Affect - Skin Skin Exam: Normal Color, Warm Assessment and Plan (1) UTI (urinary tract infection) Status: Acute (2) Altered mental status Status: Acute (3) Pneumonia Status: Acute (4) PEG tube malfunction Status: Acute - Assessment and Plan (Free Text) Plan: CONTINUE iv ANTIBIOTICS.day 6 x 1 days more f/u repeat urine cultures Follow-up blood works. Continue contact precautions. Will discuss with PMD.
[2018-08-29] MEDS: Albuterol-Ipratrop 3 mg / 0.5 (3 ml) UD INH SCH ×4 (01:47→19:54)
[2018-08-29] MEDS: AVIBACTAM IV SCH ×3 (04:53→21:45)
[2018-08-29] MEDS: SODIUM CHLORIDE 0.9% IV SCH ×3 (04:53→21:45)
[2018-08-29] MEDS: CEFTAZIDIME IV SCH ×3 (04:53→21:45)
[2018-08-29] MEDS: Pantoprazole 40 mg Susp UD PO SCH (05:02)
[2018-08-29 07:41] LABS: BASO # 0.1 K/uL (0.0-0.2); BASO % 1.2 % (0.0-2.0); EOS # 1.1 K/uL (0.0-0.7); EOS % 9.7 % (0.0-4.0); HEMOGLOBIN 9.8 g/dL (11.0-16.0); LYMPH # 1.7 K/uL (1.0-4.3); LYMPH % 15.5 % (20.0-40.0); MEAN CELL VOLUME 96.1 fL (81.0-99.0); MEAN CORPUSCULAR HEMOGLOBIN 32.6 pg (27.0-31.0); MEAN CORPUSCULAR HGB CONC 33.9 g/dL (33.0-37.0); MONO # 0.7 K/uL (0.0-0.8); MONO % 6.4 % (0.0-10.0); NEUT # 7.5 K/uL (1.8-7.0); NEUT % 67.2 % (50.0-75.0); NRBC % 0.3 % (0.0-2.0); RBC 3.02 Mil/uL (3.80-5.20); RED CELL DISTRIBUTION WIDTH 14.6 % (11.5-14.5); WHITE BLOOD COUNT 11.1 K/uL (4.8-10.8)
[2018-08-29] MEDS: (Novolin R) Insulin Human Regular 100 units/ml vial SC SCH ×4 (07:48→21:43)
[2018-08-29 08:22] LABS: ALB/GLOB RATIO 1.3 (1.0-2.1); ALBUMIN 3.8 g/dL (3.5-5.0); ALT/SGPT 11 U/L (9-52); AST/SGOT 21 U/L (14-36); BLOOD UREA NITROGEN 25 mg/dL (7-17); CALCIUM 9.8 mg/dl (8.6-10.4); GFR NON-AFRICAN AMERICAN > 60
[2018-08-29] MEDS: Enoxaparin 40 mg Syringe SC SCH (09:30)
[2018-08-29] MEDS ORDERED: Potassium Chloride 20 mEq/15 ml LIQ UD PO ONE (11:30)
--- NOTE | 2018-08-29 20:10 | CP.PCM.PN ---
Subjective - Date & Time of Evaluation Date of Evaluation: 08/29/18 Time of Evaluation: 20:10 - Subjective Subjective: AFEBRILE, AWAKE .OPENS EYES ON IV ABX .TOLERATED AVYCAZ WITHOUT REACTIONS REPEAT URINE CULTURE 08/27/18 -[facility]. Objective - Vital Signs/Intake and Output Vital Signs (last 24 hours): Temp Pulse Resp BP Pulse Ox 98.3 F 88 20 136/66 97 08/29/18 17:31 08/29/18 17:31 08/29/18 17:31 08/29/18 17:31 08/29/18 17:31 Intake and Output: 08/29/18 08/30/18 18:59 06:59 Intake Total 520 Balance 520 - Medications Medications: Current Medications Acetaminophen (Tylenol 650 Mg Supp) 650 mg [place] Q6 PRN PRN Reason: Fever >100.4 F Albuterol/Ipratropium (Duoneb 3 Mg/0.5 Mg (3 Ml) Ud) 3 ml INH RQ6 [facility] Last Admin: 08/29/18 19:54 Dose: 3 ml Aspirin (Aspirin Chewable) 81 mg PO DAILY [facility] Last Admin: 08/29/18 09:30 Dose: 81 mg Diltiazem HCl (Cardizem) 30 mg PO QID [facility] Last Admin: 08/29/18 17:56 Dose: 30 mg Enoxaparin Sodium (Lovenox) 40 mg SC DAILY [facility] Last Admin: 08/29/18 09:30 Dose: 40 mg Ceftazidime/Avibactam 1.25 gm/ (Sodium Chloride) 250 mls @ 50 mls/hr IV Q8H [facility]; Protocol Last Admin: 08/29/18 12:00 Dose: 50 mls/hr Insulin Glargine (Lantus) 25 unit SC HS [facility] Last Admin: 08/28/18 21:41 Dose: 25 units Insulin Human Regular (Novolin R) 0 unit SC ACHS [facility]; Protocol Last Admin: 08/29/18 17:56 Dose: 3 units Meclizine HCl (Antivert) 12.5 mg PO Q12 PRN PRN Reason: vertigo Metoprolol Tartrate (Lopressor) 50 mg PO BID [facility] Last Admin: 08/29/18 17:56 Dose: 50 mg Nystatin (Nystop Topical Powder) 1 applic TOP BID [facility] Last Admin: 08/29/18 09:30 Dose: 1 applic Pantoprazole Sodium (Protonix Susp) 40 mg PO 0600 [facility] Last Admin: 08/29/18 05:02 Dose: 40 mg Rosuvastatin Calcium (Crestor) 10 mg PO HS [facility] Last Admin: 08/28/18 21:41 Dose: 10 mg - Labs Labs: 08/29/18 07:33 08/29/18 07:33 - Constitutional Appears: No Acute Distress, Chronically Ill - Head Exam Head Exam: NORMAL INSPECTION - Eye Exam Eye Exam: PERRL - ENT Exam ENT Exam: Normal Oropharynx - Neck Exam Neck Exam: Normal Inspection - Respiratory Exam Respiratory Exam: Clear to Ausculation Bilateral, NORMAL BREATHING PATTERN - Cardiovascular Exam Cardiovascular Exam: REGULAR RHYTHM, +S1, +S2 - Extremities Exam Extremities Exam: Normal Capillary Refill. absent: Calf Tenderness, Pedal Edema - Neurological Exam Neurological Exam: Awake, CN II-XII Intact - Psychiatric Exam Psychiatric exam: Normal Mood - Skin Skin Exam: Normal Color, Warm Assessment and Plan (1) UTI (urinary tract infection) Status: Acute (2) Altered mental status Status: Acute (3) Pneumonia Status: Acute (4) PEG tube malfunction Status: Acute - Assessment and Plan (Free Text) Plan: CONTINUE iv ANTIBIOTICS.day 7 . DC ABX AFTER AM DOSE. D/C PER PMD. Continue contact precautions. Will discuss with PMD.
[2018-08-29] MEDS: (Lantus) Insulin Glargine, Recombinant SC SCH (21:47)
[2018-08-30] MEDS: Albuterol-Ipratrop 3 mg / 0.5 (3 ml) UD INH SCH ×3 (01:26→13:21)
[2018-08-30] MEDS: AVIBACTAM IV SCH ×2 (04:26→12:10)
[2018-08-30] MEDS: SODIUM CHLORIDE 0.9% IV SCH ×2 (04:26→12:10)
[2018-08-30] MEDS: CEFTAZIDIME IV SCH ×2 (04:26→12:10)
[2018-08-30] MEDS: Pantoprazole 40 mg Susp UD PO SCH (05:38)
[2018-08-30] MEDS: (Novolin R) Insulin Human Regular 100 units/ml vial SC SCH ×3 (08:28→17:15)
[2018-08-30] MEDS: Enoxaparin 40 mg Syringe SC SCH (09:16)
[2018-08-30 15:53] VITALS: BP 153/83; PULSE 91; RESP 18; TEMP 98.2; O2SAT 100
--- NOTE | 2018-08-30 18:12 | CP.PCM.PN ---
Subjective - Date & Time of Evaluation Date of Evaluation: 08/30/18 Time of Evaluation: 18:12 - Subjective Subjective: AFEBRILE , AAO. ANXIOUS TO GET OUT OF BED. SPOKE N SHORT SENTENCES FOR THE FIRST TIME. CASE DISCUSSED WITH PMD. LABS. REPEAT URINE CULTURE -[facility]. Objective - Vital Signs/Intake and Output Vital Signs (last 24 hours): Temp Pulse Resp BP Pulse Ox 98.2 F 91 H 18 153/83 H 100 08/30/18 15:52 08/30/18 15:52 08/30/18 15:52 08/30/18 15:52 08/30/18 15:52 Intake and Output: 08/30/18 08/30/18 06:59 18:59 Intake Total 1340 770 Output Total 5 Balance 1335 770 - Medications Medications: Current Medications Acetaminophen (Tylenol 650 Mg Supp) 650 mg [place] Q6 PRN PRN Reason: Fever >100.4 F Albuterol/Ipratropium (Duoneb 3 Mg/0.5 Mg (3 Ml) Ud) 3 ml INH RQ6 [facility] Last Admin: 08/30/18 13:21 Dose: 3 ml Aspirin (Aspirin Chewable) 81 mg PO DAILY [facility] Last Admin: 08/30/18 09:16 Dose: 81 mg Diltiazem HCl (Cardizem) 30 mg PO QID [facility] Last Admin: 08/30/18 17:15 Dose: 30 mg Enoxaparin Sodium (Lovenox) 40 mg SC DAILY [facility] Last Admin: 08/30/18 09:16 Dose: 40 mg Ceftazidime/Avibactam 1.25 gm/ (Sodium Chloride) 250 mls @ 50 mls/hr IV Q8H [facility]; Protocol Last Admin: 08/30/18 12:10 Dose: 50 mls/hr Insulin Glargine (Lantus) 25 unit SC HS [facility] Last Admin: 08/29/18 21:47 Dose: 25 units Insulin Human Regular (Novolin R) 0 unit SC ACHS [facility]; Protocol Last Admin: 08/30/18 17:15 Dose: 3 units Meclizine HCl (Antivert) 12.5 mg PO Q12 PRN PRN Reason: vertigo Metoprolol Tartrate (Lopressor) 50 mg PO BID [facility] Last Admin: 08/30/18 17:15 Dose: 50 mg Nystatin (Nystop Topical Powder) 1 applic TOP BID [facility] Last Admin: 08/30/18 17:20 Dose: 1 applic Pantoprazole Sodium (Protonix Susp) 40 mg PO 0600 [facility] Last Admin: 08/30/18 05:38 Dose: 40 mg Rosuvastatin Calcium (Crestor) 10 mg PO HS [facility] Last Admin: 08/29/18 21:53 Dose: 10 mg - Labs Labs: 08/29/18 07:33 08/29/18 07:33 - Constitutional Appears: No Acute Distress, Chronically Ill - Head Exam Head Exam: NORMAL INSPECTION - Eye Exam Eye Exam: EOMI, PERRL - ENT Exam ENT Exam: Mucous Membranes Moist, Normal Oropharynx - Neck Exam Neck Exam: Normal Inspection - Respiratory Exam Respiratory Exam: Clear to Ausculation Bilateral, NORMAL BREATHING PATTERN - Cardiovascular Exam Cardiovascular Exam: REGULAR RHYTHM, +S1, +S2 - GI/Abdominal Exam GI & Abdominal Exam: Soft, Normal Bowel Sounds - Extremities Exam Extremities Exam: absent: Calf Tenderness, Pedal Edema - Neurological Exam Neurological Exam: Alert, Awake, CN II-XII Intact - Psychiatric Exam Psychiatric exam: Normal Mood - Skin Skin Exam: Normal Color, Warm Assessment and Plan (1) UTI (urinary tract infection) Status: Acute (2) Altered mental status Status: Acute (3) Pneumonia Status: Acute (4) PEG tube malfunction Status: Acute - Assessment and Plan (Free Text) Plan: PLAN; PT HAS COMPLETED HER COURSE OF IV ABX . PER PMD
== END 2018-08-30 19:50 | disposition home health service (06) | DRG 689 ==
LOC: C.ER 18:21 → C.9E 20:06 → C.3T 21:58
PROVIDERS: ADMIT Internal Medicine; ATTEND Internal Medicine
DX: N39.0 Urinary tract infection, site not specified (principal); J18.9 Pneumonia, unspecified organism; J44.0 Chronic obstructive pulmonary disease with (acute) lower respiratory infection; K94.23 Gastrostomy malfunction; B96.1 Klebsiella pneumoniae [K. pneumoniae] as the cause of diseases classified elsewhere; Z16.12 Extended spectrum beta lactamase (ESBL) resistance; I25.10 Atherosclerotic heart disease of native coronary artery without angina pectoris; I10 Essential (primary) hypertension; L89.152 Pressure ulcer of sacral region, stage 2; E11.9 Type 2 diabetes mellitus without complications; R41.82 Altered mental status, unspecified; K21.9 Gastro-esophageal reflux disease without esophagitis; M06.9 Rheumatoid arthritis, unspecified; M81.0 Age-related osteoporosis without current pathological fracture; E78.00 Pure hypercholesterolemia, unspecified; Z95.0 Presence of cardiac pacemaker; Z99.81 Dependence on supplemental oxygen; Z95.1 Presence of aortocoronary bypass graft; Z95.5 Presence of coronary angioplasty implant and graft; Z87.01 Personal history of pneumonia (recurrent); Z87.891 Personal history of nicotine dependence; Z87.440 Personal history of urinary (tract) infections

== ENCOUNTER 2018-09-12 21:07 | Inpatient (IN) | payer MEDICARE ==
--- NOTE | 2018-09-12 21:31 | C.PDOC ---
History Of Present Illness Patient brought from home after being found more lethargic than baseline with a papular rash on her back. Hx obtain from daughter. Time Seen by Provider: 09/12/18 21:31 History Per: Family History/Exam Limitations: clinical condition Onset/Duration Of Symptoms: Hrs Current Symptoms Are (Timing): Still Present Severity: Moderate Pain Scale Rating Of: 4 Reports Recently: Seen In ED, Treated By A Physician, Hospitalized Recent travel outside of the [place]: No Additional History Per: EMS Past Medical History Reviewed: Historical Data, Nursing Documentation, Vital Signs - Medical History PMH: Anxiety, Arthritis, Bronchitis, CAD, Cardia Arrhythmia, CHF, COPD, Diabetes, GERD (esophageal stricture), HTN, Hypercholesterolemia, Osteoporosis, Pneumonia, Rheumatoid Arthritis Denies: HIV, Chronic Kidney Disease, Seizures, Sexually Transmitted Disease Surgical History: CABG (12/16/1991), Carotid Endarterectomy (06/13/05), Coronary Stent, Pacemaker - [facility] Procedures ASSISTANCE WITH RESPIRATORY VENTILATION, >96 HRS, CPAP (05/07/18) BYPASS TRACHEA TO CUTANEOUS WITH TRACH DEV, PERC APPROACH (11/09/17) CHANGE OTHER DEVICE IN ABDOMINAL WALL, EXTERNAL APPROACH (08/03/15) CONTR CEREBR ARTERIOGRAM (06/13/05) CONTRAST AORTOGRAM (06/13/05) CONTRAST ARTERIOGRAM NEC (05/23/12) CONTROL BLEEDING IN GASTROINTESTINAL TRACT, ENDO (05/07/18) CORONAR ARTERIOGR-2 CATH (05/23/12) ENDOSC POLYPECTOMY OF LG INTEST (06/28/14) ENTERAL INFUSION OF CONCENTRATED NUT. SUBSTANCES (10/01/14) HEAD & NECK ENDARTER NEC (06/13/05) INJECT ANTICOAGULANT (06/13/05) INSERT PACE, SINGL HAYLEY IN CHEST SUBCU/FASCIA, OPEN (03/05/16) INSERTION OF ENDOTRACHEAL AIRWAY INTO TRACHEA, VIA OPENING (05/07/18) INSERTION OF INFUSION DEV INTO R BRACH VEIN, PERC APPROACH (05/07/18) INSERTION OF INFUSION DEV INTO SUP VENA CAVA, PERC APPROACH (07/01/18) INSERTION OF ONE VASCULAR STENT (05/23/12) INSERTION OF PACEMAKER LEAD INTO R VENTRICLE, PERC APPROACH (03/05/16) INSPECTION OF TRACHEOBRONCHIAL TREE, ENDO (11/09/17) INSRT OF DRUG-ELUTING CORON ARTERY STENTS(S) (05/23/12) INTRODUCTION OF NUTRITIONAL INTO UP GI, VIA OPENING (06/17/18) INTRODUCTION OF VASOPRESSOR INTO CENTRAL VEIN, PERC APPROACH (03/05/16) LEFT HEART CARDIAC CATH (05/23/12) LT HEART ANGIOCARDIOGRAM (05/23/12) MEASUREMENT OF CARDIAC PACEMAKER, EXTERNAL APPROACH (01/27/17) PACKED CELL TRANSFUSION (06/28/14) PERCUTANEOUS TRANSLUMINAL CORONARY ANGIOPLASTY [PTCA] (05/23/12) PERCUTANEOUS [ENDOSCOPIC] GASTROSTOMY [PEG] (10/01/14) PERFORMANCE OF CARDIAC PACING, CONTINUOUS (03/05/16) PROCEDURE ON SINGLE VESSEL (05/23/12) REPLACE GASTROSTOMY TUBE (02/09/15) RESPIRATORY VENTILATION, 24-96 CONSECUTIVE HOURS (05/07/18) RESPIRATORY VENTILATION, GREATER THAN 96 CONSECUTIVE HOURS (05/07/18) TRANSFUSE NONAUT FROZEN PLASMA IN PERIPH VEIN, PERC (05/07/18) TRANSFUSE NONAUT RED BLOOD CELLS IN PERIPH VEIN, PERC (05/07/18) Family History: States: No Known Family Hx - Social History Hx Tobacco Use: No Hx Alcohol Use: No Hx Substance Use: No - Immunization History Hx Tetanus Toxoid Vaccination: No Hx Influenza Vaccination: No Hx Pneumococcal Vaccination: No Review Of Systems Review Of Systems: ROS cannot be obtained secondary to pt's inabilty to answer questions. Physical Exam - Physical Exam Appears: Non-toxic Skin: Warm, Dry, Rash (Diffuse scaly papular to back) Head: Normacephalic Eye(s): bilateral: Normal Inspection Oral Mucosa: Dry Neck: Trachea Midline, Supple Chest: Other (CABG scar) Cardiovascular: Rhythm Regular Respiratory: No Rales, Rhonchi (Scattered), No Wheezing Gastrointestinal/Abdominal: Bowel Sounds (Good), Soft, No Tenderness, Other (Peg tube in place) Back: No CVA Tenderness, Other (rash) Extremity: Other (Moves all extremities) Extremity: Bilateral: Atraumatic, Normal Color And Temperature Pulses: Left Dorsalis Pedis: Normal, Right Dorsalis Pedis: Normal Neurological/Psych: Other (Orientedx2) Gait: Unable To Assess ED Course And Treatment - Laboratory Results Result Diagrams: 09/12/18 22:42 09/12/18 23:54 ECG: Interpreted By Me, Viewed By Me ECG Rhythm: Sinus Rhythm (109), R BBB, Nonspecific Changes Pulse Ox Interpretation: Normal (96) - Radiology CXR: Interpreted by Me, Viewed By Me Progress Note: CT head, EKG, blood work, CXR and urinalysis ordered. IV fluids administered. 9:50 PM Spoke and sent ekg to dr benz. Saldivar on the ekg and symptoms , pt does not meet code heart criteria. Disposition Discussed With DrShabbir: Luis Manuel Patel Comment: accepted the pt on his service and took over the care at 3:07 AM Doctor Will See Patient In The: Hospital Counseled Patient/Family Regarding: Studies Performed, Diagnosis - Disposition Disposition: HOSPITALIZED Disposition Time: 21:31 Condition: FAIR - POA Present On Arrival: Poor Glycemic Control - Clinical Impression Clinical Impression: Skin irritation, UTI (urinary tract infection), Change in mental status - Scribe Statement The provider has reviewed the documentation as recorded by the Scribe Alonzo Hinton All medical record entries made by the Scribe were at my direction and personally dictated by me. I have reviewed the chart and agree that the record accurately reflects my personal performance of the history, physical exam, medical decision making, and the department course for this patient. I have also personally directed, reviewed, and agree with the discharge instructions and disposition. Decision To Admit - Pt Status Changed To: Hospital Disposition Of: Inpatient - Admit Certification Admit to Inpatient:: After my assessment, the patient will require hospitalization for at least two midnights. This is because of the severity of symptoms shown, intensity of services needed, and/or the medical risk in this patient being treated as an outpatient. - InPatient: Physician Admission Certification: I certify that this patient requires 2 or more midnights of care for the following reason:: After my assessment, the patient will require hospitalization for at least two midnights. This is because of the severity of symptoms shown, intensity of services needed, and/or the medical risk in this patient being treated as an outpatient. - . Bed Request Type: Regular Admitting Physician: Luis Manuel Patel Patient Diagnosis: Skin irritation, UTI (urinary tract infection), Change in mental status
[2018-09-12 21:37] VITALS: BMI 23.0
[2018-09-12] MEDS ORDERED: Sodium Chloride 0.9% 1,000 ML IV SCH (21:45)
[2018-09-12 22:24] LABS: VENOUS BLOOD GAS BASE EXCESS 2.2 mmol/L (0.0-2.0); VENOUS BLOOD GAS PCO2 43 mmHg (40-60); VENOUS BLOOD GAS PO2 25 mm/Hg (30-55); VENOUS BLOOD PH 7.41 (7.32-7.43)
[2018-09-12 22:47] LABS: BASO # 0.1 K/uL (0.0-0.2); BASO % 0.7 % (0.0-2.0); EOS # 0.6 K/uL (0.0-0.7); EOS % 3.3 % (0.0-4.0); HEMOGLOBIN 12.4 g/dL (11.0-16.0); LYMPH # 1.9 K/uL (1.0-4.3); LYMPH % 11.3 % (20.0-40.0); MEAN CELL VOLUME 93.1 fL (81.0-99.0); MEAN CORPUSCULAR HEMOGLOBIN 30.9 pg (27.0-31.0); MEAN CORPUSCULAR HGB CONC 33.2 g/dL (33.0-37.0); MEAN PLATELET VOLUME 7.9 fL (7.2-11.7); MONO # 1.2 K/uL (0.0-0.8); MONO % 6.9 % (0.0-10.0); NEUT # 13.2 K/uL (1.8-7.0); NEUT % 77.8 % (50.0-75.0); NRBC % 0.1 % (0.0-2.0); RBC 4.02 Mil/uL (3.80-5.20); RED CELL DISTRIBUTION WIDTH 14.8 % (11.5-14.5); WHITE BLOOD COUNT 16.9 K/uL (4.8-10.8)
[2018-09-12 23:00] LABS: PROTHROMBIN TIME 10.6 SECONDS (9.7-12.2)
[2018-09-12] MEDS ORDERED: Bacitracin 500 Units/gm Oint Foilpak UD ONE (23:19)
[2018-09-12 23:36] LABS: ALBUMIN 4.8 g/dL (3.5-5.0); ALT/SGPT 9 U/L (9-52); AST/SGOT 85 U/L (14-36); BLOOD UREA NITROGEN 40 mg/dL (7-17); CALCIUM 10.6 mg/dl (8.6-10.4); GFR NON-AFRICAN AMERICAN > 60; LIPASE 157 U/L (23-300)
[2018-09-13] MEDS: Sodium Chloride 0.9% 1,000 ML IV SCH ×5 (00:12→22:24)
[2018-09-13 00:15] LABS: ALB/GLOB RATIO 1.4 (1.0-2.1); ALBUMIN 4.4 g/dL (3.5-5.0); ALT/SGPT 12 U/L (9-52); AST/SGOT 22 U/L (14-36); BLOOD UREA NITROGEN 37 mg/dL (7-17); CALCIUM 10.5 mg/dl (8.6-10.4); GFR NON-AFRICAN AMERICAN > 60
[2018-09-13 02:42] LABS: SQUAMOUS EPITHIAL < 1 /hpf (0-5); URINE BACTERIA OCC (<OCC); URINE BILIRUBIN NEGATIVE (NEGATIVE); URINE BLOOD NEGATIVE (NEGATIVE); URINE CLARITY Hazy (Clear); URINE COLOR Yellow (YELLOW); URINE GLUCOSE (UA) 3+ mg/dL (Normal); URINE LEUKOCYTE ESTERASE 3+ Leu/uL (Negative); URINE PROTEIN NEGATIVE (NEGATIVE); URINE UROBILINOGEN NORMAL mg/dL (0.2-1.0)
[2018-09-13] MEDS ORDERED: Moxifloxacin IV 400mg/250ml NS 400 MG/250 ML BAG IVPB ONE ×2 (02:58→03:54)
[2018-09-13 03:53] LABS: VENOUS BLOOD GAS BASE EXCESS -1.1 mmol/L (0.0-2.0); VENOUS BLOOD GAS PCO2 45 mmHg (40-60); VENOUS BLOOD GAS PO2 33 mm/Hg (30-55); VENOUS BLOOD PH 7.35 (7.32-7.43)
[2018-09-13] MEDS ORDERED: Sodium Chloride 0.9% 1,000 ML IV ONE (04:20)
--- NOTE | 2018-09-13 07:10 | CT ---
Date of service: 09/13/2018 PROCEDURE: CT HEAD WITHOUT CONTRAST. HISTORY: Headache. Evaluate for hemorrhage. COMPARISON: 06/17/2018 TECHNIQUE: Axial computed tomography images were obtained through the head/brain without intravenous contrast. Radiation dose: Total exam DLP = 888.59 mGy-cm. This CT exam was performed using one or more of the following dose reduction techniques: Automated exposure control, adjustment of the mA and/or kV according to patient size, and/or use of iterative reconstruction technique. FINDINGS: HEMORRHAGE: No intracranial hemorrhage. BRAIN: No mass effect or edema. Scattered focal lucencies in the subcortical and periventricular white matter suggestive for chronic microvascular ischemic change. Diffuse generalized parenchymal atrophy. 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 VENTRICLES: Unremarkable. No hydrocephalus. CALVARIUM: Unremarkable. PARANASAL SINUSES: Mild mucosal thickening of the ethmoid air cells. MASTOID AIR CELLS: Unremarkable as visualized. No inflammatory changes. OTHER FINDINGS: Intracranial arterial calcifications. IMPRESSION: No acute intracranial abnormality. Chronic microvascular ischemic changes. Diffuse generalized parenchymal atrophy. 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 If symptoms persists, consider correlation with MRI. A preliminary report was generated at 2:15 a.m. on 09/13/[address] Martina Dockery from [employer].
--- NOTE | 2018-09-13 08:00 | RAD ---
Chest x-ray single frontal view HISTORY: Shortness of breath. COMPARISON: 05/07/2018 Findings: Biapical pleural thickening with upper lobe granulomatous changes. Small nodular density projects over the right lung apex. Diffuse increased interstitial lung markings. Right hilar prominence. Left-sided pacemaker. Status post median sternotomy and CABG. Cardiomegaly. Degenerative changes in the spine and shoulders. Impression: Biapical pleural thickening with upper lobe granulomatous changes. Small nodular density projects over the right lung apex. Diffuse increased interstitial lung markings. Right hilar prominence. Left-sided pacemaker. Status post median sternotomy and CABG. Cardiomegaly. Degenerative changes in the spine and shoulders.
[2018-09-13] MEDS: MethylPREDNISolone 40 mg Vial IVP SCH ×2 (11:04→22:25)
[2018-09-13] MEDS: Albuterol-Ipratrop 3 mg / 0.5 (3 ml) UD INH SCH ×3 (12:15→19:25)
[2018-09-13] MEDS: (Novolin R) Insulin Human Regular 100 units/ml vial SC SCH ×2 (13:49→17:54)
--- NOTE | 2018-09-13 21:25 | CP.PCM.HP ---
History of Present Illness - History of Present Illness History of Present Illness: Chief complaint Patient's daughter called me yesterday with the mom is not doing well, more lethargic, poorly responding, elevated blood sugar, but later night she called the ambulance, brought to the emergency room. HPI: 87-year-old female history of high blood pressure, COPD, CAD, CABG, high cholesterol, history of osteoporosis pneumonia or tracheostomy aspiration pneumonia GI bleed multiple hospitalization with recurrent urinary tract infection brought in by the ambulance today because of the symptoms of lethargy.. She was having increasing lethargy, also according to the patient's a daughter yesterday she was not feeling well. She started responding very poorly She was not making much urine. Blood sugar was also noted to be a very highly elevated. So patient is not a very concerned and called the ambulance got to the emergency room Past medical history: Hypertension, hyperlipidemia, CAD, COPD, osteoporosis osteoarthritis recurrent pneumonia GI bleed and duodenal ulcer Surgical history: CABG x2, tracheostomy, PEG tube, pacemaker, multiple esophageal dilatation for achalasia cardia Allergies multiple allergies noted from the chart Review of system: Noted from the chart. Patient is having pain in the peg site. No headache. Cough minimal Tolerating the feeding On examination: Vital signs somewhat unstable at this time. Patient is somewhat lethargic nonverbal. No sacral decubiti noted Chest good air entry Regular heart sounds noted Abdomen soft. PEG tube noted. Leg swelling negative Labs reviewed Elevated WBC noted. Also elevated lactic acid level noted. Blood sugar is elevated Assessment and recognition: 88-year-old female with a history of multiple problems including hypertension, COPD, CAD, CABG, hypercholesterolemia, history of osteoporosis pneumonia tracheostomy aspiration pneumonia GI bleed admitted with a possible urinary tract infection. Reinsertion done. We will continue the feeding tube. PEG tube feeding. DVT GI prophylaxis. Antibiotic and will follow the patient patient possibly has a similar problem including uncontrolled diabetes, and diabetes related complication. Severe dehydration. Sepsis. Pneumonia likely. We will start the patient on antibiotic. Bronchodilators. We will follow the patient Present on Admission - Present on Admission Any Indicators Present on Admission: No History of DVT/PE: No History of Uncontrolled Diabetes: No Urinary Catheter: No Decubitus Ulcer Present: No Past Patient History - Infectious Disease Hx of Infectious Diseases: None - Past Medical History & Family History Past Medical History?: Yes - Past Social History Smoking Status: Former Smoker - CARDIAC Hx Cardiac Disorders: Yes Hx Cardia Arrhythmia: Yes Hx Congestive Heart Failure: Yes Hx Hypercholesterolemia: Yes Hx Hypertension: Yes Hx Pacemaker: Yes - PULMONARY Hx Respiratory Disorders: Yes Hx Bronchitis: Yes Hx Chronic Obstructive Pulmonary Disease (COPD): Yes Hx Pneumonia: Yes - NEUROLOGICAL Hx Neurological Disorder: No Hx Seizures: No - HEENT Hx HEENT Problems: Yes Hx Cataracts: Yes (2000 Rt.Eye,2010Left Eye) - RENAL Hx Chronic Kidney Disease: No - ENDOCRINE/METABOLIC Hx Endocrine Disorders: Yes Hx Diabetes Mellitus Type 2: Yes - HEMATOLOGICAL/ONCOLOGICAL Hx Blood Disorders: No Hx Human Immunodeficiency Virus (HIV): No - INTEGUMENTARY Hx Dermatological Problems: Yes Other/Comment: sore in the sacral area. heel sore - MUSCULOSKELETAL/RHEUMATOLOGICAL Hx Musculoskeletal Disorders: Yes Hx Arthritis: Yes Hx Falls: Yes Hx Osteoporosis: Yes Hx Rheumatoid Arthritis: Yes - GASTROINTESTINAL Hx Gastrointestinal Disorders: Yes Hx Colitis: Yes Hx Gastroesophageal Reflux: Yes HX Swallowing Problems: Yes (Achalasia. See HPI) Other/Comment: peg tube - GENITOURINARY/GYNECOLOGICAL Hx Genitourinary Disorders: No Hx Sexually Transmitted Disorders: No - PSYCHIATRIC Hx Substance Use: No - SURGICAL HISTORY Hx Surgeries: Yes Hx Carotid Endarterectomy: Yes (06/13/05) Hx Coronary Artery Bypass Graft: Yes (12/16/1991) Hx Coronary Stent: Yes - ANESTHESIA Hx Anesthesia: Yes Hx Anesthesia Reactions: No Hx Malignant Hyperthermia: No Has any member of the family had a problem w/ anesthesia?: No Meds Allergies/Adverse Reactions: Allergies Allergy/AdvReac Type Severity Reaction Status Date / Time iodine Allergy REDNESS Verified 08/15/18 10:13 Penicillins Allergy ANGIOEDEMA Verified 08/15/18 10:13 clopidogrel [From Plavix] AdvReac HEADACHE Verified 08/15/18 10:13 losartan [From Cozaar] AdvReac DIZZINESS Verified 08/15/18 10:13 nitroglycerin AdvReac DIZZINESS Verified 08/15/18 10:13 Results - Vital Signs Recent Vital Signs: Last Vital Signs Temp 98.5 F 09/13/18 16:00 Pulse 126 H 09/13/18 16:00 Resp 20 09/13/18 16:00 BP 114/73 09/13/18 17:30 Pulse Ox 96 09/13/18 16:00 - Labs Result Diagrams: 09/12/18 22:42 09/12/18 23:54 Labs: Laboratory Results - last 24 hr 09/12/18 09/12/18 09/12/18 21:35 22:21 22:42 WBC 16.9 H D RBC 4.02 Hgb 12.4 D Hct 37.4 MCV 93.1 D MCH 30.9 MCHC 33.2 RDW 14.8 H Plt Count 431 H D MPV 7.9 Neut % (Auto) 77.8 H Lymph % (Auto) 11.3 L Winston % (Auto) 6.9 Eos % (Auto) 3.3 Baso % (Auto) 0.7 Neut # (Auto) 13.2 H Lymph # (Auto) 1.9 Winston # (Auto) 1.2 H Eos # (Auto) 0.6 Baso # (Auto) 0.1 PT INR APTT pO2 25 L VBG pH 7.41 VBG pCO2 43 VBG HCO3 25.2 VBG Total CO2 28.6 H VBG O2 Sat (Calc) 48.1 VBG Base Excess 2.2 H VBG Potassium 5.7 H Sodium 130.0 L Chloride 92.0 L Glucose 312 H Lactate 4.4 H* Crit Value Called To Lindsey melara rn Crit Value Called By Ban Crit Value Read Back Y Blood Gas Notified Time 2224 Potassium Carbon Dioxide Anion Gap BUN Creatinine Est GFR ( Amer) Est GFR (Non-Af Amer) POC Glucose (mg/dL) 366 H Random Glucose Calcium Magnesium Total Bilirubin AST ALT Alkaline Phosphatase Total Protein Albumin Globulin Albumin/Globulin Ratio Lipase Venous Blood Potassium 5.7 H Urine Color Urine Clarity Urine pH Ur Specific [place] Urine Protein Urine Glucose (UA) Urine Ketones Urine Blood Urine Nitrate Urine Bilirubin Urine Urobilinogen Ur Leukocyte Esterase Urine WBC (Auto) Urine RBC (Auto) Ur Squamous Epith Cells Urine Bacteria 09/12/18 09/12/18 09/12/18 22:42 22:42 23:54 WBC RBC Hgb Hct MCV MCH MCHC RDW Plt Count MPV Neut % (Auto) Lymph % (Auto) Winston % (Auto) Eos % (Auto) Baso % (Auto) Neut # (Auto) Lymph # (Auto) Winston # (Auto) Eos # (Auto) Baso # (Auto) PT 10.6 INR 1.0 APTT 25 pO2 VBG pH VBG pCO2 VBG HCO3 VBG Total CO2 VBG O2 Sat (Calc) VBG Base Excess VBG Potassium Sodium 126 L 127 L Chloride 86 L 87 L Glucose Lactate Crit Value Called To Crit Value Called By Crit Value Read Back Blood Gas Notified Time Potassium 6.6 H* D 4.6 Carbon Dioxide 24 26 Anion Gap 22 H 18 BUN 40 H 37 H Creatinine 0.6 L 0.7 Est GFR ( Amer) > 60 > 60 Est GFR (Non-Af Amer) > 60 > 60 POC Glucose (mg/dL) Random Glucose 309 H D 296 H Calcium 10.6 H 10.5 H Magnesium 2.0 Total Bilirubin 1.4 H 0.5 AST 85 H D 22 ALT 9 12 Alkaline Phosphatase 80 88 Total Protein 9.5 H 7.6 Albumin 4.8 4.4 Globulin 4.7 H 3.1 Albumin/Globulin Ratio 1.0 1.4 Lipase 157 Venous Blood Potassium Urine Color Urine Clarity Urine pH Ur Specific [place] Urine Protein Urine Glucose (UA) Urine Ketones Urine Blood Urine Nitrate Urine Bilirubin Urine Urobilinogen Ur Leukocyte Esterase Urine WBC (Auto) Urine RBC (Auto) Ur Squamous Epith Cells Urine Bacteria 09/13/18 09/13/18 09/13/18 02:20 03:35 11:26 WBC RBC Hgb Hct MCV MCH MCHC RDW Plt Count MPV Neut % (Auto) Lymph % (Auto) Winston % (Auto) Eos % (Auto) Baso % (Auto) Neut # (Auto) Lymph # (Auto) Winston # (Auto) Eos # (Auto) Baso # (Auto) PT INR APTT pO2 33 VBG pH 7.35 VBG pCO2 45 VBG HCO3 23.0 VBG Total CO2 26.2 VBG O2 Sat (Calc) 64.3 VBG Base Excess -1.1 L VBG Potassium 4.4 Sodium 133.0 Chloride 99.0 Glucose 229 H Lactate 4.1 H* Crit Value Called To Lindsey gil Crit Value Called By Allison rt Crit Value Read Back Y Blood Gas Notified Time 352 Potassium Carbon Dioxide Anion Gap BUN Creatinine Est GFR ( Amer) Est GFR (Non-Af Amer) POC Glucose (mg/dL) 231 H Random Glucose Calcium Magnesium Total Bilirubin AST ALT Alkaline Phosphatase Total Protein Albumin Globulin Albumin/Globulin Ratio Lipase Venous Blood Potassium 4.4 Urine Color Yellow Urine Clarity Hazy Urine pH 6.0 Ur Specific [place] 1.006 Urine Protein Negative Urine Glucose (UA) 3+ H Urine Ketones Negative Urine Blood Negative Urine Nitrate Negative Urine Bilirubin Negative Urine Urobilinogen Normal Ur Leukocyte Esterase 3+ H Urine WBC (Auto) 66 H Urine RBC (Auto) 6 H Ur Squamous Epith Cells < 1 Urine Bacteria Occ H 09/13/18 17:46 WBC RBC Hgb Hct MCV MCH MCHC RDW Plt Count MPV Neut % (Auto) Lymph % (Auto) Winston % (Auto) Eos % (Auto) Baso % (Auto) Neut # (Auto) Lymph # (Auto) Winston # (Auto) Eos # (Auto) Baso # (Auto) PT INR APTT pO2 VBG pH VBG pCO2 VBG HCO3 VBG Total CO2 VBG O2 Sat (Calc) VBG Base Excess VBG Potassium Sodium Chloride Glucose Lactate Crit Value Called To Crit Value Called By Crit Value Read Back Blood Gas Notified Time Potassium Carbon Dioxide Anion Gap BUN Creatinine Est GFR ( Amer) Est GFR (Non-Af Amer) POC Glucose (mg/dL) 415 H* Random Glucose Calcium Magnesium Total Bilirubin AST ALT Alkaline Phosphatase Total Protein Albumin Globulin Albumin/Globulin Ratio Lipase Venous Blood Potassium Urine Color Urine Clarity Urine pH Ur Specific [place] Urine Protein Urine Glucose (UA) Urine Ketones Urine Blood Urine Nitrate Urine Bilirubin Urine Urobilinogen Ur Leukocyte Esterase Urine WBC (Auto) Urine RBC (Auto) Ur Squamous Epith Cells Urine Bacteria
[2018-09-13] MEDS: (Lantus) Insulin Glargine, Recombinant SC SCH (22:32)
[2018-09-14] MEDS: (Novolin R) Insulin Human Regular 100 units/ml vial SC SCH ×5 (00:43→23:33)
[2018-09-14] MEDS: Albuterol-Ipratrop 3 mg / 0.5 (3 ml) UD INH SCH ×4 (01:27→19:51)
[2018-09-14] MEDS: Moxifloxacin IV 400mg/250ml NS 400 MG/250 ML BAG IVPB SCH (04:55)
[2018-09-14] MEDS: Sodium Chloride 0.9% 1,000 ML IV SCH ×3 (07:40→21:39)
[2018-09-14 07:55] LABS: ALB/GLOB RATIO 1.3 (1.0-2.1); ALBUMIN 4.2 g/dL (3.5-5.0); ALT/SGPT 20 U/L (9-52); AST/SGOT 23 U/L (14-36); BLOOD UREA NITROGEN 23 mg/dL (7-17); CALCIUM 9.6 mg/dl (8.6-10.4); GFR NON-AFRICAN AMERICAN > 60
[2018-09-14] MEDS: MethylPREDNISolone 40 mg Vial IVP SCH ×2 (09:38→21:37)
[2018-09-14 12:29] LABS: BASO % 0.1 % (0.0-2.0); LYMPH # 0.6 K/uL (1.0-4.3); LYMPH % 4.1 % (20.0-40.0); MEAN CORPUSCULAR HEMOGLOBIN 30.5 pg (27.0-31.0); MEAN CORPUSCULAR HGB CONC 31.8 g/dL (33.0-37.0); MEAN PLATELET VOLUME 7.9 fL (7.2-11.7); MONO # 0.9 K/uL (0.0-0.8); MONO % 6.1 % (0.0-10.0); NEUT # 13.7 K/uL (1.8-7.0); NEUT % 89.7 % (50.0-75.0); PLATELET COUNT 351 K/uL (130-400); RBC 3.33 Mil/uL (3.80-5.20); RED CELL DISTRIBUTION WIDTH 14.7 % (11.5-14.5); WHITE BLOOD COUNT 15.3 K/uL (4.8-10.8)
[2018-09-14 12:32] LABS: HEMOGLOBIN 10.2 g/dL (11.0-16.0); MEAN CELL VOLUME 96.1 fL (81.0-99.0)
[2018-09-14 12:49] LABS: ANISOCYTOSIS SLIGHT; BANDS 4 % (0-2); HYPOCHROMIC SLIGHT; LYMPHOCYTE 5 % (20-40); MONOCYTE 6 % (0-10); NEUTROPHIL 85 % (50-75); PLATELET ESTIMATE NORMAL (NORMAL); POLYCHROMIC SLIGHT; TOTAL CELLS COUNTED 100
[2018-09-14 12:50] LABS: TOXIC GRANULATION PRESENT
[2018-09-14] MEDS: (Lantus) Insulin Glargine, Recombinant SC SCH (21:38)
--- NOTE | 2018-09-15 00:09 | CARD ---
APPROVED REPORT Date of service: 09/12/2018 EKG Measurement Heart [id number] ND [id number] [id number] <Conclusion> Sinus tachycardia Incomplete right bundle branch block Inferior infarct, age undetermined Abnormal ECG
[2018-09-15] MEDS: Albuterol-Ipratrop 3 mg / 0.5 (3 ml) UD INH SCH ×4 (02:23→22:00)
[2018-09-15] MEDS: Sodium Chloride 0.9% 1,000 ML IV SCH ×3 (02:52→12:29)
[2018-09-15] MEDS: Moxifloxacin IV 400mg/250ml NS 400 MG/250 ML BAG IVPB SCH (03:13)
[2018-09-15] MEDS: (Novolin R) Insulin Human Regular 100 units/ml vial SC SCH ×3 (06:11→19:04)
[2018-09-15] MEDS: MethylPREDNISolone 40 mg Vial IVP SCH ×2 (09:56→21:25)
[2018-09-15] MEDS ORDERED: Pneumococcal 23-Valent Vaccine IM ONE (14:00)
[2018-09-15] MEDS ORDERED: Influenza Vaccine 60 mcg/0.5 mL SYR (4YR UP) IM ONE (14:00)
--- NOTE | 2018-09-15 17:18 | CP.PCM.PN ---
Subjective - Date & Time of Evaluation Date of Evaluation: 09/14/18 Time of Evaluation: 17:18 - Subjective Subjective: Patient now having more awake. Urine culture still pending. Patient is currently responding to the treatment No chest pain, she has no nausea or vomiting noted. Tolerating the feeding at this time On examination: Vital signs stable. Chest good air entry regular heart sounds noted nontender abdomen tolerating the feeding at this time we will continue the current treatment. Patient is most likely to have urinary tract infection, associated with urosepsis and possible altered mental status. Improving at this time Objective - Vital Signs/Intake and Output Vital Signs (last 24 hours): Temp Pulse Resp BP Pulse Ox 98.7 F 104 H 20 137/65 100 09/15/18 15:00 09/15/18 15:00 09/15/18 15:00 09/15/18 17:00 09/15/18 15:00 Intake and Output: 09/15/18 09/15/18 06:59 18:59 Intake Total 2440 1320 Output Total 1500 Balance 940 1320 - Medications Medications: Current Medications Albuterol/Ipratropium (Duoneb 3 Mg/0.5 Mg (3 Ml) Ud) 3 ml INH RQ6 JUDY Last Admin: 09/15/18 14:06 Dose: 3 ml Aspirin (Aspirin Chewable) 81 mg PO DAILY JUDY Last Admin: 09/15/18 09:54 Dose: 81 mg Heparin Sodium (Porcine) (Heparin) 5,000 units SC Q12 JUDY Last Admin: 09/15/18 09:55 Dose: 5,000 units Moxifloxacin HCl (Avelox Iv 400mg/250ml Ns) 400 mg in 250 mls @ 167 mls/hr IVPB Q24H JUDY; Protocol Last Admin: 09/15/18 03:13 Dose: 167 mls/hr Insulin Glargine (Lantus) 20 unit SC HS JUDY Last Admin: 09/14/18 21:38 Dose: 20 units Insulin Human Regular (Novolin R) 0 unit SC Q6 JUDY; Protocol Last Admin: 09/15/18 11:41 Dose: 3 unit Methylprednisolone (Solu-Medrol) 40 mg IVP Q12 JUDY Last Admin: 09/15/18 09:56 Dose: 40 mg Metoprolol Tartrate (Lopressor) 25 mg PO BID JUDY Last Admin: 09/15/18 17:00 Dose: 25 mg Pantoprazole Sodium (Protonix Inj) 40 mg IVP DAILY JUDY Last Admin: 09/15/18 09:54 Dose: 40 mg Rosuvastatin Calcium (Crestor) 5 mg PO HS JUDY Last Admin: 09/14/18 21:36 Dose: 5 mg - Labs Labs: 09/14/18 12:05 09/14/18 07:24 PT 10.6 SECONDS (9.7-12.2) 09/12/18 22:42 INR 1.0 09/12/18 22:42 APTT 25 SECONDS (21-34) 09/12/18 22:42
--- NOTE | 2018-09-15 17:19 | CP.PCM.PN ---
Subjective - Date & Time of Evaluation Date of Evaluation: 09/15/18 Time of Evaluation: 17:19 - Subjective Subjective: Patient is more awake and responding. Afebrile. Urine is much better. No chest pain. Tolerating the full oral feeding Vital signs stable. Afebrile. Urine culture showing evidence of VRE Assessment and recommendation: 88-year-old female with a history of COPD hypertension CAD, coronary artery bypass grafting, history of achalasia cardia, PEG tube feeding. Respiratory insufficiency. Chronic respiratory failure. History of tracheostomy and feeding tube Tracheostomy is decannulated. Admitted with altered mental status secondary to urinary tract infection, on Avelox. We will get infectious disease evaluation and will follow the patient Objective - Vital Signs/Intake and Output Vital Signs (last 24 hours): Temp Pulse Resp BP Pulse Ox 98.7 F 104 H 20 137/65 100 09/15/18 15:00 09/15/18 15:00 09/15/18 15:00 09/15/18 17:00 09/15/18 15:00 Intake and Output: 09/15/18 09/15/18 06:59 18:59 Intake Total 2440 1320 Output Total 1500 Balance 940 1320 - Medications Medications: Current Medications Albuterol/Ipratropium (Duoneb 3 Mg/0.5 Mg (3 Ml) Ud) 3 ml INH RQ6 JUDY Last Admin: 09/15/18 14:06 Dose: 3 ml Aspirin (Aspirin Chewable) 81 mg PO DAILY JUDY Last Admin: 09/15/18 09:54 Dose: 81 mg Heparin Sodium (Porcine) (Heparin) 5,000 units SC Q12 JUDY Last Admin: 09/15/18 09:55 Dose: 5,000 units Moxifloxacin HCl (Avelox Iv 400mg/250ml Ns) 400 mg in 250 mls @ 167 mls/hr IVPB Q24H JUDY; Protocol Last Admin: 09/15/18 03:13 Dose: 167 mls/hr Insulin Glargine (Lantus) 20 unit SC HS JUDY Last Admin: 09/14/18 21:38 Dose: 20 units Insulin Human Regular (Novolin R) 0 unit SC Q6 JUDY; Protocol Last Admin: 09/15/18 11:41 Dose: 3 unit Methylprednisolone (Solu-Medrol) 40 mg IVP Q12 JUDY Last Admin: 09/15/18 09:56 Dose: 40 mg Metoprolol Tartrate (Lopressor) 25 mg PO BID JUDY Last Admin: 09/15/18 17:00 Dose: 25 mg Pantoprazole Sodium (Protonix Inj) 40 mg IVP DAILY [facility] Last Admin: 09/15/18 09:54 Dose: 40 mg Rosuvastatin Calcium (Crestor) 5 mg PO HS [facility] Last Admin: 09/14/18 21:36 Dose: 5 mg - Labs Labs: 09/14/18 12:05 09/14/18 07:24 PT 10.6 SECONDS (9.7-12.2) 09/12/18 22:42 INR 1.0 09/12/18 22:42 APTT 25 SECONDS (21-34) 09/12/18 22:42
[2018-09-15] MEDS: Linezolid 600 mg in D5W 300 ml 600 MG/300 ML BAG IVPB SCH (20:57)
[2018-09-15] MEDS: (Lantus) Insulin Glargine, Recombinant SC SCH (21:26)
[2018-09-16] MEDS: (Novolin R) Insulin Human Regular 100 units/ml vial SC SCH ×4 (00:38→18:20)
[2018-09-16] MEDS: Albuterol-Ipratrop 3 mg / 0.5 (3 ml) UD INH SCH ×4 (01:58→20:51)
[2018-09-16] MEDS: Moxifloxacin IV 400mg/250ml NS 400 MG/250 ML BAG IVPB SCH (03:40)
[2018-09-16] MEDS: Linezolid 600 mg in D5W 300 ml 600 MG/300 ML BAG IVPB SCH ×2 (05:54→18:20)
[2018-09-16] MEDS: MethylPREDNISolone 40 mg Vial IVP SCH ×2 (09:57→21:48)
--- NOTE | 2018-09-16 11:56 | CP.PCM.CON ---
History of Present Illness - History of Present Illness History of Present Illness: INFECTIOUS DISEASE CONSULT: HPI: 87-year-old female history of HTN , COPD, CAD, CABG, high cholesterol, history of osteoporosis, aspiration pneumonia GI bleed multiple hospitalization with recurrent urinary tract infection. PT.admitted to [facility] because of altered mental status. History limited as patient unable to give any details. Infectious disease consult requested by PMD for positive VRE in the urine. PMH: Anxiety, Arthritis, Bronchitis, CAD, Cardia Arrhythmia, CHF, COPD, Diabetes, GERD (esophageal stricture), HTN, Hypercholesterolemia, Osteoporosis, Pneumonia, Rheumatoid Arthritis Denies: HIV, Chronic Kidney Disease, Seizures, Sexually Transmitted Disease Surgical History: CABG (12/16/1991), Carotid Endarterectomy (06/13/05), Coronary Stent, Pacemaker Family History: States: Unknown Family Hx - Social History Hx Tobacco Use: No Hx Alcohol Use: No Hx Substance Use: No - Immunization History Hx Tetanus Toxoid Vaccination: No Hx Influenza Vaccination: No Hx Pneumococcal Vaccination: No Review Of Systems Review Of Systems: ROS cannot be obtained secondary to pt's inabilty to answer questions. ALLERGY; PCN. PATIENT HAS TOLERATED iv MERREM ,AND AZACTAM IN THE PAST. Also allergy to IODINE, CLOPIDOGREL, LOSARTAN, NITROGLYCERIN IN. ALLERGIES DISCUSSED WITH DAUGHTER MARIE TELEPHONE [phone]. PMD- Dr. Patel Review of Systems - Review of Systems All systems: reviewed and no additional remarkable complaints except ( PER HPI) Past Patient History - Infectious Disease Hx of Infectious Diseases: None - Past Medical History & Family History Past Medical History?: Yes - Past Social History Smoking Status: Former Smoker - CARDIAC Hx Cardiac Disorders: Yes Hx Congestive Heart Failure: Yes Hx Hypercholesterolemia: Yes Hx Hypertension: Yes - PULMONARY Hx Chronic Obstructive Pulmonary Disease (COPD): Yes - NEUROLOGICAL Hx Neurological Disorder: No Hx Seizures: No - HEENT Hx HEENT Problems: Yes Hx Cataracts: Yes (2000 Rt.Eye,2009Left Eye) - RENAL Hx Chronic Kidney Disease: No - ENDOCRINE/METABOLIC Hx Diabetes Mellitus Type 2: Yes - HEMATOLOGICAL/ONCOLOGICAL Hx Blood Disorders: No Hx Human Immunodeficiency Virus (HIV): No - INTEGUMENTARY Hx Dermatological Problems: Yes Other/Comment: sore in the sacral area. heel sore - MUSCULOSKELETAL/RHEUMATOLOGICAL Hx Arthritis: Yes Hx Rheumatoid Arthritis: Yes - GASTROINTESTINAL Hx Gastrointestinal Disorders: Yes Hx Colitis: Yes Hx Gastroesophageal Reflux: Yes HX Swallowing Problems: Yes (Achalasia. See HPI) Other/Comment: peg tube - GENITOURINARY/GYNECOLOGICAL Hx Genitourinary Disorders: No Hx Sexually Transmitted Disorders: No - PSYCHIATRIC Hx Substance Use: No - SURGICAL HISTORY Hx Surgeries: Yes Hx Carotid Endarterectomy: Yes (06/13/05) Hx Coronary Artery Bypass Graft: Yes (12/16/1991) Hx Coronary Stent: Yes - ANESTHESIA Hx Anesthesia: Yes Hx Anesthesia Reactions: No Hx Malignant Hyperthermia: No Has any member of the family had a problem w/ anesthesia?: No Meds Allergies/Adverse Reactions: Allergies Allergy/AdvReac Type Severity Reaction Status Date / Time iodine Allergy REDNESS Verified 08/15/18 10:13 Penicillins Allergy ANGIOEDEMA Verified 08/15/18 10:13 clopidogrel [From Plavix] AdvReac HEADACHE Verified 08/15/18 10:13 losartan [From Cozaar] AdvReac DIZZINESS Verified 08/15/18 10:13 nitroglycerin AdvReac DIZZINESS Verified 08/15/18 10:13 - Medications Medications: Current Medications Albuterol/Ipratropium (Duoneb 3 Mg/0.5 Mg (3 Ml) Ud) 3 ml INH RQ6 JUDY Last Admin: 09/16/18 07:45 Dose: 3 ml Aspirin (Aspirin Chewable) 81 mg PO DAILY JUDY Last Admin: 09/16/18 09:57 Dose: 81 mg Heparin Sodium (Porcine) (Heparin) 5,000 units SC Q12 JUDY Last Admin: 09/16/18 09:57 Dose: 5,000 units Moxifloxacin HCl (Avelox Iv 400mg/250ml Ns) 400 mg in 250 mls @ 167 mls/hr IVPB Q24H JUDY; Protocol Last Admin: 09/16/18 03:40 Dose: 167 mls/hr Linezolid (Zyvox 600mg/300ml D5w) 600 mg in 300 mls @ 200 mls/hr IVPB Q12H JUDY; Protocol Last Admin: 09/16/18 05:54 Dose: 200 mls/hr Insulin Glargine (Lantus) 20 unit SC HS JUDY Last Admin: 09/15/18 21:26 Dose: 20 units Insulin Human Regular (Novolin R) 0 unit SC Q6 JUDY; Protocol Last Admin: 09/16/18 06:57 Dose: 2 unit Methylprednisolone (Solu-Medrol) 40 mg IVP Q12 [facility] Last Admin: 09/16/18 09:57 Dose: 40 mg Metoprolol Tartrate (Lopressor) 25 mg PO BID [facility] Last Admin: 09/16/18 09:57 Dose: 25 mg Pantoprazole Sodium (Protonix Inj) 40 mg IVP DAILY [facility] Last Admin: 09/16/18 09:57 Dose: 40 mg Rosuvastatin Calcium (Crestor) 5 mg PO HS [facility] Last Admin: 09/15/18 21:25 Dose: 5 mg Physical Exam - Constitutional Appears: No Acute Distress, Confused - Head Exam Head Exam: NORMAL INSPECTION - Eye Exam Eye Exam: EOMI, PERRL - ENT Exam ENT Exam: Normal Oropharynx - Neck Exam Neck exam: Positive for: Normal Inspection - Respiratory Exam Respiratory Exam: Decreased Breath Sounds - Cardiovascular Exam Cardiovascular Exam: REGULAR RHYTHM, +S1, +S2 - GI/Abdominal Exam GI & Abdominal Exam: Normal Bowel Sounds, Soft (PEG IN PLACE.) - Extremities Exam Extremities exam: Positive for: pedal pulses present. Negative for: calf tenderness, pedal edema - Neurological Exam Neurological exam: Altered, CN II-XII Intact - Psychiatric Exam Psychiatric exam: Flat Affect - Skin Skin Exam: Normal Color, Rash (SUPERFICIAL EXCORIATIONS ON SACRAL REGION.) Results - Vital Signs Recent Vital Signs: Last Vital Signs Temp 98.8 F 09/16/18 08:15 Pulse 98 H 09/16/18 08:15 Resp 20 09/16/18 08:15 BP 162/83 H 09/16/18 09:57 Pulse Ox 98 09/16/18 08:15 - Labs Result Diagrams: 09/14/18 12:05 09/14/18 07:24 Labs: Laboratory Results - last 24 hr 09/15/18 09/15/18 09/16/18 17:50 23:33 05:58 POC Glucose (mg/dL) 399 H 372 H 313 H 09/16/18 09/16/18 07:32 11:18 POC Glucose (mg/dL) 353 H 267 H - Imaging and Cardiology Chest x-ray Status: Report reviewed by me (NOTED.Increased interstitial markings bilaterally with consolidative changes right hilar and right lower lobe. See full report.) Assessment & Plan (1) Altered mental status Assessment and Plan: pancultures' IV antibiotics Patient on IV Avelox 400 mg once a day daily 09/13/18 Status: Acute (2) UTI (urinary tract infection) Assessment and Plan: urine culture positive for VRE. s linezolid. Patient started on IV Zyvox 600 mg every 12 hourly 09/15/18. US ABDOMEN /PELVIS R/O HYDRO/STONES. PTS DAUGHTER REQUESTING ON CASE . Status: Acute (3) Pneumonia Assessment and Plan: patient has a tracheostomy which is decannulated. Sputum Gram stain and culture. Continue IV Avelox 400 mg once a day daily 09/13/18. Status: Acute (4) Hypertension Status: Acute (5) Gastrostomy tube in place Status: Acute (6) Skin irritation Status: Acute
--- NOTE | 2018-09-16 12:20 | RAD ---
Chest x-ray single frontal view HISTORY: Pneumonia. Comparison: 09/12/2018 Findings: Diffuse increased interstitial lung markings. Patchy consolidative changes in the bilateral hilar regions and right infrahilar region. Status post median sternotomy and CABG. Atherosclerotic calcification at the aortic knob. Left-sided pacemaker. Degenerative changes in the spine and shoulders. Surgical clips at the left upper abdomen. Impression: Diffuse increased interstitial lung markings. Patchy consolidative changes in the bilateral hilar regions and right infrahilar region. Status post median sternotomy and CABG. Atherosclerotic calcification at the aortic knob. Left-sided pacemaker. Degenerative changes in the spine and shoulders. Surgical clips at the left upper abdomen.
[2018-09-16] MEDS: (Lantus) Insulin Glargine, Recombinant SC SCH (21:49)
--- NOTE | 2018-09-16 22:45 | CP.PCM.CON ---
History of Present Illness - History of Present Illness History of Present Illness: UROLOGY CONSULTATION Past Patient History - Infectious Disease Hx of Infectious Diseases: None - Past Medical History & Family History Past Medical History?: Yes - Past Social History Smoking Status: Former Smoker - CARDIAC Hx Cardiac Disorders: Yes Hx Congestive Heart Failure: Yes Hx Hypercholesterolemia: Yes Hx Hypertension: Yes - PULMONARY Hx Chronic Obstructive Pulmonary Disease (COPD): Yes - NEUROLOGICAL Hx Neurological Disorder: No Hx Seizures: No - HEENT Hx HEENT Problems: Yes Hx Cataracts: Yes (2000 Rt.Eye,2009Left Eye) - RENAL Hx Chronic Kidney Disease: No - ENDOCRINE/METABOLIC Hx Diabetes Mellitus Type 2: Yes - HEMATOLOGICAL/ONCOLOGICAL Hx Blood Disorders: No Hx Human Immunodeficiency Virus (HIV): No - INTEGUMENTARY Hx Dermatological Problems: Yes Other/Comment: sore in the sacral area. heel sore - MUSCULOSKELETAL/RHEUMATOLOGICAL Hx Arthritis: Yes Hx Rheumatoid Arthritis: Yes - GASTROINTESTINAL Hx Gastrointestinal Disorders: Yes Hx Colitis: Yes Hx Gastroesophageal Reflux: Yes HX Swallowing Problems: Yes (Achalasia. See HPI) Other/Comment: peg tube - GENITOURINARY/GYNECOLOGICAL Hx Genitourinary Disorders: No Hx Sexually Transmitted Disorders: No - PSYCHIATRIC Hx Substance Use: No - SURGICAL HISTORY Hx Surgeries: Yes Hx Carotid Endarterectomy: Yes (06/13/05) Hx Coronary Artery Bypass Graft: Yes (12/16/1991) Hx Coronary Stent: Yes - ANESTHESIA Hx Anesthesia: Yes Hx Anesthesia Reactions: No Hx Malignant Hyperthermia: No Has any member of the family had a problem w/ anesthesia?: No Meds Allergies/Adverse Reactions: Allergies Allergy/AdvReac Type Severity Reaction Status Date / Time iodine Allergy REDNESS Verified 08/15/18 10:13 Penicillins Allergy ANGIOEDEMA Verified 08/15/18 10:13 clopidogrel [From Plavix] AdvReac HEADACHE Verified 08/15/18 10:13 losartan [From Cozaar] AdvReac DIZZINESS Verified 08/15/18 10:13 nitroglycerin AdvReac DIZZINESS Verified 08/15/18 10:13 - Medications Medications: Current Medications Albuterol/Ipratropium (Duoneb 3 Mg/0.5 Mg (3 Ml) Ud) 3 ml INH RQ6 [facility] Last Admin: 09/16/18 20:51 Dose: Not Given Aspirin (Aspirin Chewable) 81 mg PO DAILY [facility] Last Admin: 09/16/18 09:57 Dose: 81 mg Heparin Sodium (Porcine) (Heparin) 5,000 units SC Q12 [facility] Last Admin: 09/16/18 21:48 Dose: 5,000 units Moxifloxacin HCl (Avelox Iv 400mg/250ml Ns) 400 mg in 250 mls @ 167 mls/hr IVPB Q24H [facility]; Protocol Last Admin: 09/16/18 03:40 Dose: 167 mls/hr Linezolid (Zyvox 600mg/300ml D5w) 600 mg in 300 mls @ 200 mls/hr IVPB Q12H [facility]; Protocol Last Admin: 09/16/18 18:20 Dose: 200 mls/hr Insulin Glargine (Lantus) 20 unit SC HS [facility] Last Admin: 09/16/18 21:49 Dose: 20 units Insulin Human Regular (Novolin R) 0 unit SC Q6 [facility]; Protocol Last Admin: 09/16/18 18:20 Dose: 8 unit Methylprednisolone (Solu-Medrol) 40 mg IVP Q12 [facility] Last Admin: 09/16/18 21:48 Dose: 40 mg Metoprolol Tartrate (Lopressor) 25 mg PO BID [facility] Last Admin: 09/16/18 18:21 Dose: 25 mg Pantoprazole Sodium (Protonix Inj) 40 mg IVP DAILY [facility] Last Admin: 09/16/18 09:57 Dose: 40 mg Rosuvastatin Calcium (Crestor) 5 mg PO HS [facility] Last Admin: 09/16/18 21:48 Dose: 5 mg Results - Vital Signs Recent Vital Signs: Last Vital Signs Temp 97.3 F L 09/16/18 17:34 Pulse 97 H 09/16/18 17:34 Resp 20 09/16/18 17:34 BP 149/86 09/16/18 18:21 Pulse Ox 98 09/16/18 08:15 - Labs Result Diagrams: 09/14/18 12:05 09/14/18 07:24 Labs: Laboratory Results - last 24 hr 09/15/18 09/16/18 09/16/18 23:33 05:58 07:32 POC Glucose (mg/dL) 372 H 313 H 353 H 09/16/18 09/16/18 11:18 18:02 POC Glucose (mg/dL) 267 H 393 H Assessment & Plan - Assessment and Plan (Free Text) Assessment: IMP: UTI Pyuria Leukocytosis Incontinence Lethargy, confusion CAD PACEMAKER CHF COPD Gastrostomy tube POSSIBLE PNEUMONIA YS - Date & Time Date: 09/16/18 Time: 12:40
[2018-09-17] MEDS: (Novolin R) Insulin Human Regular 100 units/ml vial SC SCH ×4 (00:55→18:37)
[2018-09-17] MEDS: Albuterol-Ipratrop 3 mg / 0.5 (3 ml) UD INH SCH ×5 (02:00→19:27)
[2018-09-17] MEDS: Moxifloxacin IV 400mg/250ml NS 400 MG/250 ML BAG IVPB SCH (03:19)
[2018-09-17] MEDS: Linezolid 600 mg in D5W 300 ml 600 MG/300 ML BAG IVPB SCH ×2 (05:30→18:37)
[2018-09-17 07:21] LABS: BASO % 0.2 % (0.0-2.0); HEMOGLOBIN 11.5 g/dL (11.0-16.0); LYMPH # 0.6 K/uL (1.0-4.3); LYMPH % 5.9 % (20.0-40.0); MEAN CELL VOLUME 94.2 fL (81.0-99.0); MEAN CORPUSCULAR HEMOGLOBIN 31.9 pg (27.0-31.0); MEAN CORPUSCULAR HGB CONC 33.9 g/dL (33.0-37.0); MEAN PLATELET VOLUME 8.2 fL (7.2-11.7); MONO # 0.7 K/uL (0.0-0.8); MONO % 6.5 % (0.0-10.0); NEUT # 9.3 K/uL (1.8-7.0); NEUT % 87.4 % (50.0-75.0); NRBC % 0.1 % (0.0-2.0); PLATELET COUNT 328 K/uL (130-400); RBC 3.59 Mil/uL (3.80-5.20); RED CELL DISTRIBUTION WIDTH 14.5 % (11.5-14.5); WHITE BLOOD COUNT 10.6 K/uL (4.8-10.8)
[2018-09-17 07:38] LABS: ALB/GLOB RATIO 1.3 (1.0-2.1); ALBUMIN 3.7 g/dL (3.5-5.0); ALT/SGPT 13 U/L (9-52); AST/SGOT 16 U/L (14-36); BLOOD UREA NITROGEN 39 mg/dL (7-17); GFR NON-AFRICAN AMERICAN > 60
[2018-09-17 08:11] LABS: SQUAMOUS EPITHIAL 1 /hpf (0-5); URINE BACTERIA RARE (<OCC); URINE BILIRUBIN NEGATIVE (NEGATIVE); URINE BLOOD NEGATIVE (NEGATIVE); URINE CLARITY Hazy (Clear); URINE COLOR Yellow (YELLOW); URINE GLUCOSE (UA) 3+ mg/dL (Normal); URINE LEUKOCYTE ESTERASE 1+ Leu/uL (Negative); URINE PROTEIN 1+ mg/dL (NEGATIVE); URINE UROBILINOGEN NORMAL mg/dL (0.2-1.0)
[2018-09-17 08:15] LABS: BANDS 1 % (0-2); LYMPHOCYTE 6 % (20-40); MONOCYTE 3 % (0-10); NEUTROPHIL 90 % (50-75); PLATELET ESTIMATE NORMAL (NORMAL); TOTAL CELLS COUNTED 100
[2018-09-17] MEDS: MethylPREDNISolone 40 mg Vial IVP SCH ×2 (10:13→21:49)
--- NOTE | 2018-09-17 11:20 | CT ---
Date of service: 09/17/2018 PROCEDURE: CT Abdomen and Pelvis without intravenous contrast HISTORY: UTI, INCONTINENCE COMPARISON: CT abdomen pelvis without contrast 08/15/2018. TECHNIQUE: Helical CT of the abdomen and pelvis was performed without oral or intravenous contrast as per referring physician request. Coronal and sagittal reformats were generated.. Contrast dose: None Radiation dose: Total exam DLP = 844.78 mGy-cm. This CT exam was performed using one or more of the following dose reduction techniques: Automated exposure control, adjustment of the mA and/or kV according to patient size, and/or use of iterative reconstruction technique. FINDINGS: LOWER THORAX: Bilateral basilar subsegmental atelectasis appreciated. However, there is an ovoid shaped structure once again seen at the medial left lower lobe base measuring 3.3 cm greatest dimension suspicious for potential mass. This is not changed in size over time however. This may reflect chronic atelectasis as well. Prior median sternotomy noted in this patient is apparently status post CABG. Pacemaker leads are seen the right heart as well as extensive coronary artery calcifications in various portions of the heart. LIVER: Unremarkable. No gross lesion or ductal dilatation. GALLBLADDER AND BILE DUCTS: Limited cholelithiasis identified in the dependent portion versus sludge with gallbladder otherwise unremarkable appearing. PANCREAS: A moderately atrophic pancreas appreciated diffusely. No gross lesion or ductal dilatation. SPLEEN: Unremarkable. ADRENALS: Unremarkable. No mass. KIDNEYS AND URETERS: No obstructive uropathy identified bilaterally infrequent punctate intrarenal nonobstructing calculi identified bilaterally. No perinephric reaction bilaterally. VASCULATURE: No aortic atherosclerotic calcification or mural plaque present. BOWEL: No bowel obstruction identified. Extensive colonic diverticulosis scattered throughout the entire colon without obvious diverticulitis. Gastrostomy mid tube identified in situ once again. APPENDIX: Unremarkable. Normal appendix. PERITONEUM: Unremarkable. No free fluid. No free air. LYMPH NODES: Unremarkable. No enlarged lymph nodes. BLADDER: Thin wall but mildly distended. No intracystic radiodense urolithiasis identified. REPRODUCTIVE: Prior hysterectomy. BONES: Marked dextroscoliosis without obvious fracture or spondylolisthesis appreciable. Advanced multilevel degenerative disease seen throughout thoracolumbar spine as imaged. OTHER FINDINGS: None. IMPRESSION: 1. Multiple punctate intrarenal calculi identified in the bilateral kidneys infrequently. No obstructive uropathy bilaterally. Urinary bladder appears mildly distended but thin and smooth walled throughout. 2. Limited cholelithiasis versus sludge at the dependent gallbladder fundus. 3. Prior gastrostomy insertion once again evident. 4. Prior hysterectomy evident once again as well. 5. Other lesser findings as discussed above, including persistent lobular shape structure at the medial left lower lobe base potentially reflecting persistent atelectasis or even soft tissue lesion.
--- NOTE | 2018-09-17 12:17 | PQF ---
PROVIDER RESPONSE TEXT: Sepsis REVIEWER QUERY TEXT: Clarification of Clinical Diagnostic Findings Please clarify documentation or clinical relevance for the clinical / diagnostic findings or whether those are insignificant or unable to be further specified.[[Unable to determine::Unable to determine: : The patient's Clinical Indicators include: ?88 y/o Female, Patient brought from home after being found more lethargic than baseline with a papul ar rash on her back?. Pulse: 126/108/122 LABS: WBC: 16.9/15.3 - Lactate: 4.4/4.1. Urine Exam: WBC: 66/7 - RBC: 6/41 - Leukocyte Esterase: 3+/1+ - Bacteria: Occ/Rare. Urine Culture: Vancomycin Resistant E. Faecium. H/P: Patient is somewhat lethargic nonverbal. Patient is most likely to have urinary tract infection, associated with UROSEPSIS and possible AMS. UROSEPSIS DOCUMENTED. Clinical findings matching with Sepsis Criteria, please consider verify and doc ument it, if agree. Query created by: Antonio Walker on 09/17/2018 10:44 AM Electronically signed by: Luis Manuel Patel MD 09/17/2018 12:13 PM
--- NOTE | 2018-09-17 12:17 | PQF ---
PROVIDER RESPONSE TEXT: Toxic Encephalopathy REVIEWER QUERY TEXT: Encephalopathy Type AMS is documented in the Medical Record. Please verify if you consider document Encephalopathy and sp ecify type Such as: The patient's Clinical Indicators include: ?88 y/o Female, Patient brought from home after being found more lethargic than baseline with a papul ar rash on her back?. Pulse: 126/108/122 LABS: WBC: 16.9/15.3 - Lactate: 4.4/4.1. Urine Exam: WBC: 66/7 - RBC: 6/41 - Leukocyte Esterase: 3+/1+ - Bacteria: Occ/Rare. Urine Culture: Vancomycin Resistant E. Faecium. H/P: Patient is somewhat lethargic nonverbal. Patient is most likely to have urinary tract infection, associated with urosepsis and possible AMS. AMS Documented in the medical record, Please consider verify if clinical findings are matching with E ncephalopathy. Query created by: Antonio Walker on 09/17/2018 10:41 AM Electronically signed by: Luis Manuel Patel MD 09/17/2018 12:13 PM
--- NOTE | 2018-09-17 12:48 | US ---
Date of service: 09/17/2018 HISTORY: R/O HYDRONEPHROSIS/ STONES . RECURRENT UTI COMPARISON: CT abdomen and pelvis performed the same day. TECHNIQUE: Grayscale imaging was performed. FINDINGS: LIVER: Measures 15.6 cm. There is diffuse increased echogenicity of the liver parenchyma. No mass. No intrahepatic bile duct dilatation. GALLBLADDER: There are no gallstones, wall thickening or pericholecystic fluid. There is gallbladder sludge. The sonographic Horton's sign is negative. COMMON BILE DUCT: Measures 4.1 mm. No stones. No dilatation. PANCREAS: Obscured by bowel gas. RIGHT KIDNEY: Measures 9.4cm. Normal echogenicity. No calculus, mass, or hydronephrosis. LEFT KIDNEY: Measures 10.1cm. Normal echogenicity. No calculus, mass, or hydronephrosis. There is a 2.1 x 1.2 x 1.6 cm simple cyst in the lower pole. SPLEEN: Normal in size and contour. No mass. AORTA: No aneurysmal dilatation. IVC: Unremarkable. OTHER FINDINGS: None. IMPRESSION: 1. Fatty liver. 2. No cholelithiasis or biliary dilatation. 3. 2.1 cm simple cyst in the lower pole of the left kidney. No sonographic evidence for nephrolithiasis or hydronephrosis.
--- NOTE | 2018-09-17 13:56 | CP.PCM.PN ---
Subjective - Date & Time of Evaluation Date of Evaluation: 09/17/18 Time of Evaluation: 13:55 - Subjective Subjective: afebrile. arousable. WEAK, SLEEPY MOST OF THE TIME, NO RESP. DISTRESS. TACHYCARDIAC. LABS ; BLOOD CULTURES 09/13/18 -VE TO DATE. urine culture positive for VRE. s linezolid. US ABDOMEN - FATTY LIVER, 2.1CM CYST LT LOWER POLE KIDNEY NO HYDRO (SEE FULL REPORT ) ROS; NA Objective - Vital Signs/Intake and Output Vital Signs (last 24 hours): Temp Pulse Resp BP Pulse Ox 97.6 F 85 20 140/71 100 09/17/18 08:35 09/17/18 08:35 09/17/18 08:35 09/17/18 10:13 09/17/18 08:35 Intake and Output: 09/17/18 09/17/18 06:59 18:59 Intake Total 1620 Output Total 1100 Balance 520 - Medications Medications: Current Medications Albuterol/Ipratropium (Duoneb 3 Mg/0.5 Mg (3 Ml) Ud) 3 ml INH RQ6 [facility] Last Admin: 09/17/18 08:15 Dose: Not Given Aspirin (Aspirin Chewable) 81 mg PO DAILY [facility] Last Admin: 09/17/18 10:13 Dose: 81 mg Heparin Sodium (Porcine) (Heparin) 5,000 units SC Q12 [facility] Last Admin: 09/17/18 10:13 Dose: 5,000 units Moxifloxacin HCl (Avelox Iv 400mg/250ml Ns) 400 mg in 250 mls @ 167 mls/hr IVPB Q24H [facility]; Protocol Last Admin: 09/17/18 03:19 Dose: 167 mls/hr Linezolid (Zyvox 600mg/300ml D5w) 600 mg in 300 mls @ 200 mls/hr IVPB Q12H [facility]; Protocol Last Admin: 09/17/18 05:30 Dose: 200 mls/hr Insulin Glargine (Lantus) 20 unit SC HS [facility] Last Admin: 09/16/18 21:49 Dose: 20 units Insulin Human Regular (Novolin R) 0 unit SC Q6 [facility]; Protocol Last Admin: 09/17/18 12:33 Dose: 4 unit Methylprednisolone (Solu-Medrol) 40 mg IVP Q12 [facility] Last Admin: 09/17/18 10:13 Dose: 40 mg Metoprolol Tartrate (Lopressor) 25 mg PO BID [facility] Last Admin: 09/17/18 10:13 Dose: 25 mg Pantoprazole Sodium (Protonix Inj) 40 mg IVP DAILY [facility] Last Admin: 09/17/18 10:13 Dose: 40 mg Rosuvastatin Calcium (Crestor) 5 mg PO HS [facility] Last Admin: 09/16/18 21:48 Dose: 5 mg - Labs Labs: 09/17/18 07:05 09/17/18 07:05 PT 10.6 SECONDS (9.7-12.2) 09/12/18 22:42 INR 1.0 09/12/18 22:42 APTT 25 SECONDS (21-34) 09/12/18 22:42 - Constitutional Appears: No Acute Distress, Chronically Ill - Head Exam Head Exam: NORMAL INSPECTION - Eye Exam Eye Exam: EOMI, PERRL - ENT Exam ENT Exam: Mucous Membranes Moist - Neck Exam Neck Exam: Normal Inspection - Respiratory Exam Respiratory Exam: Rhonchi (BASILAR RHONCHI), NORMAL BREATHING PATTERN - Cardiovascular Exam Cardiovascular Exam: Tachycardia, REGULAR RHYTHM, +S1, +S2 - GI/Abdominal Exam GI & Abdominal Exam: Soft, Normal Bowel Sounds (PEG IN PLACE) - Extremities Exam Extremities Exam: Normal Capillary Refill. absent: Calf Tenderness, Pedal Edema - Neurological Exam Neurological Exam: Altered, Awake, CN II-XII Intact - Psychiatric Exam Psychiatric exam: Flat Affect - Skin Skin Exam: Normal Color, Warm Assessment and Plan (1) Altered mental status Status: Acute (2) UTI (urinary tract infection) Status: Acute (3) Pneumonia Status: Acute (4) Hypertension Status: Acute (5) Gastrostomy tube in place Status: Acute (6) Skin irritation Status: Acute - Assessment and Plan (Free Text) Plan: PLAN urine culture positive for VRE. s linezolid. CONTINUE iv ZYVOX 600 MG IVPB EVERY 12 HOURLY 09/15/18. PT ALSO TO CONTINUE IV AVELOX 400MG IVPB Q 24HRLY FOR ASPIRATION PNEUMONIA.09/13/18. SEEN BY AND NOTED.09/17/18 CONTINUE CONTACT ISOLATION. F/U CT OF THE ABDOMEN AND PELVIS ORDERED BY PMD. CASE DISCUSSED WITH STAFF.
[2018-09-17] MEDS: (Lantus) Insulin Glargine, Recombinant SC SCH (21:49)
--- NOTE | 2018-09-17 23:09 | CP.PCM.PN ---
Subjective - Date & Time of Evaluation Date of Evaluation: 09/17/18 Time of Evaluation: 23:09 - Subjective Subjective: Patient is currently tolerating the PEG tube feeding. I spoke to the patient's daughter. She is more awake and responding. Responding to the antibiotic. Spoke to the urologist and infectious disease. Appreciate the consultation. Continue the current treatment. 88-year-old female with history of COPD hypertension hypercholesterolemia CAD status post CABG acute on chronic respiratory insufficiency. Admitted now with altered mental status most likely secondary to sepsis. Recurrent urinary tract infection. Currently on antibiotic. Appreciate infectious disease evaluation and will follow the patient Objective - Vital Signs/Intake and Output Vital Signs (last 24 hours): Temp Pulse Resp BP Pulse Ox 97.6 F 99 H 20 127/76 100 09/17/18 16:12 09/17/18 16:12 09/17/18 16:12 09/17/18 18:37 09/17/18 16:12 Intake and Output: 09/17/18 09/18/18 18:59 06:59 Intake Total 400 820 Output Total 275 150 Balance 125 670 - Medications Medications: Current Medications Albuterol/Ipratropium (Duoneb 3 Mg/0.5 Mg (3 Ml) Ud) 3 ml INH RQ6 [facility] Last Admin: 09/17/18 19:27 Dose: 3 ml Aspirin (Aspirin Chewable) 81 mg PO DAILY [facility] Last Admin: 09/17/18 10:13 Dose: 81 mg Heparin Sodium (Porcine) (Heparin) 5,000 units SC Q12 [facility] Last Admin: 09/17/18 21:48 Dose: 5,000 units Moxifloxacin HCl (Avelox Iv 400mg/250ml Ns) 400 mg in 250 mls @ 167 mls/hr IVPB Q24H [facility]; Protocol Last Admin: 09/17/18 03:19 Dose: 167 mls/hr Linezolid (Zyvox 600mg/300ml D5w) 600 mg in 300 mls @ 200 mls/hr IVPB Q12H [facility]; Protocol Last Admin: 09/17/18 18:37 Dose: 200 mls/hr Insulin Glargine (Lantus) 20 unit SC HS [facility] Last Admin: 09/17/18 21:49 Dose: 20 units Insulin Human Regular (Novolin R) 0 unit SC Q6 [facility]; Protocol Last Admin: 09/17/18 18:37 Dose: 8 unit Methylprednisolone (Solu-Medrol) 40 mg IVP Q12 [facility] Last Admin: 09/17/18 21:49 Dose: 40 mg Metoprolol Tartrate (Lopressor) 25 mg PO BID [facility] Last Admin: 09/17/18 18:37 Dose: 25 mg Pantoprazole Sodium (Protonix Inj) 40 mg IVP DAILY [facility] Last Admin: 09/17/18 10:13 Dose: 40 mg Rosuvastatin Calcium (Crestor) 5 mg PO HS [facility] Last Admin: 09/17/18 21:48 Dose: 5 mg - Labs Labs: 09/17/18 07:05 09/17/18 07:05 PT 10.6 SECONDS (9.7-12.2) 09/12/18 22:42 INR 1.0 09/12/18 22:42 APTT 25 SECONDS (21-34) 09/12/18 22:42
[2018-09-18] MEDS: (Novolin R) Insulin Human Regular 100 units/ml vial SC SCH ×4 (00:30→18:06)
[2018-09-18] MEDS: Albuterol-Ipratrop 3 mg / 0.5 (3 ml) UD INH SCH ×4 (01:30→20:40)
[2018-09-18] MEDS: Moxifloxacin IV 400mg/250ml NS 400 MG/250 ML BAG IVPB SCH (03:15)
[2018-09-18] MEDS: Linezolid 600 mg in D5W 300 ml 600 MG/300 ML BAG IVPB SCH ×2 (05:22→17:18)
[2018-09-18] MEDS: MethylPREDNISolone 40 mg Vial IVP SCH ×2 (09:47→21:28)
[2018-09-18] MEDS: Pantoprazole 40 mg Susp UD PO SCH (09:47)
--- NOTE | 2018-09-18 17:20 | CP.PCM.PN ---
Subjective - Date & Time of Evaluation Date of Evaluation: 09/18/18 Time of Evaluation: 17:20 - Subjective Subjective: AFEBRILE, SLEEPING. RN REPORTS DOES WAKE UP INTERMITTENTLY AND MOVES EYES. ON ANTIBIOTICS . RADIOLOGY/LABS CT ABD/PELVIS W/O PO OR IV CONTRAST09/17/18 +VE MULTIPLE INTRARENAL CALCULI B/L KIDNEYS NO OBSTRUTIVE UROPATHY (see full report ) Objective - Vital Signs/Intake and Output Vital Signs (last 24 hours): Temp Pulse Resp BP Pulse Ox 97.9 F 116 H 18 123/79 98 09/18/18 16:00 09/18/18 16:00 09/18/18 16:00 09/18/18 17:18 09/18/18 16:00 Intake and Output: 09/18/18 09/18/18 06:59 18:59 Intake Total 1870 320 Output Total 950 300 Balance 920 20 - Medications Medications: Current Medications Albuterol/Ipratropium (Duoneb 3 Mg/0.5 Mg (3 Ml) Ud) 3 ml INH RQ6 [facility] Last Admin: 09/18/18 13:15 Dose: 3 ml Aspirin (Aspirin Chewable) 81 mg PO DAILY [facility] Last Admin: 09/18/18 09:47 Dose: 81 mg Heparin Sodium (Porcine) (Heparin) 5,000 units SC Q12 [facility] Last Admin: 09/18/18 09:45 Dose: 5,000 units Moxifloxacin HCl (Avelox Iv 400mg/250ml Ns) 400 mg in 250 mls @ 167 mls/hr IVPB Q24H [facility]; Protocol Last Admin: 09/18/18 03:15 Dose: 167 mls/hr Linezolid (Zyvox 600mg/300ml D5w) 600 mg in 300 mls @ 200 mls/hr IVPB Q12H [facility]; Protocol Last Admin: 09/18/18 17:18 Dose: 200 mls/hr Insulin Glargine (Lantus) 20 unit SC HS [facility] Last Admin: 09/17/18 21:49 Dose: 20 units Insulin Human Regular (Novolin R) 0 unit SC Q6 [facility]; Protocol Last Admin: 09/18/18 12:28 Dose: 8 unit Methylprednisolone (Solu-Medrol) 40 mg IVP Q12 [facility] Last Admin: 09/18/18 09:47 Dose: 40 mg Metoprolol Tartrate (Lopressor) 25 mg PO BID [facility] Last Admin: 09/18/18 17:18 Dose: 25 mg Pantoprazole Sodium (Protonix Susp) 40 mg PO DAILY [facility] Last Admin: 09/18/18 09:47 Dose: 40 mg Rosuvastatin Calcium (Crestor) 5 mg PO HS [facility] Last Admin: 09/17/18 21:48 Dose: 5 mg - Labs Labs: 09/17/18 07:05 09/17/18 07:05 PT 10.6 SECONDS (9.7-12.2) 09/12/18 22:42 INR 1.0 09/12/18 22:42 APTT 25 SECONDS (21-34) 09/12/18 22:42 - Constitutional Appears: No Acute Distress - Head Exam Head Exam: NORMAL INSPECTION - Eye Exam Eye Exam: EOMI, PERRL - ENT Exam ENT Exam: Mucous Membranes Moist - Neck Exam Neck Exam: Normal Inspection - Respiratory Exam Respiratory Exam: Decreased Breath Sounds - Cardiovascular Exam Cardiovascular Exam: REGULAR RHYTHM, +S1, +S2 - GI/Abdominal Exam GI & Abdominal Exam: Soft, Normal Bowel Sounds (PEG IN PLACE) - Extremities Exam Extremities Exam: Normal Capillary Refill. absent: Calf Tenderness, Pedal Edema - Neurological Exam Neurological Exam: Altered - Psychiatric Exam Psychiatric exam: Flat Affect - Skin Skin Exam: Normal Color, Warm Assessment and Plan (1) Altered mental status Status: Acute (2) UTI (urinary tract infection) Status: Acute (3) Pneumonia Status: Acute (4) Hypertension Status: Acute (5) Gastrostomy tube in place Status: Acute (6) Skin irritation Status: Acute - Assessment and Plan (Free Text) Plan: CONTINUE iv ZYVOX 600 MG IVPB EVERY 12 HOURLY 09/15/18. PT ALSO TO CONTINUE IV AVELOX 400MG IVPB Q 24HRLY FOR ASPIRATION PNEUMONIA.09/13/18. SEEN BY AND NOTED.09/17/18 CONTINUE CONTACT ISOLATION. PER BOB
[2018-09-18] MEDS: (Lantus) Insulin Glargine, Recombinant SC SCH (21:27)
--- NOTE | 2018-09-18 23:24 | PCM.URO ---
Urology Progress Note - General General: No Complaints - Subjective Abdominal Pain: No Flank Pain: No Nausea: No Vomiting: No Voiding Well: No (incontinent) Hematuria: No Chest Pain: No Fever & Chills: No - Objective Lab Studies: Reviewed Lab Results Last 24 Hours: Laboratory Results - last 24 hr 09/18/18 09/18/18 09/18/18 00:14 05:46 11:11 POC Glucose (mg/dL) 397 H 303 H 368 H 09/18/18 09/18/18 11:46 17:58 POC Glucose (mg/dL) 389 H 420 H* Intake & Output: Intake & Output 09/18/18 09/18/18 09/19/18 06:59 18:59 06:59 Intake Total 1870 320 Output Total 950 300 Balance 920 20 Intake: Intake, IV Amount 750 Left Hand 750 Tube Feeding 720 320 Other 400 Output: Urine 950 300 Urine, Voided 950 300 Other: # Bowel Movements 0 1 Vital Signs: Vital Signs - 24 hr 09/18/18 09/18/18 09/18/18 07:53 09:45 16:00 Temperature 97.4 F L 97.9 F Pulse Rate 101 H 116 H Respiratory 20 18 Rate Blood Pressure 106/67 106/67 123/79 O2 Sat by Pulse 98 98 Oximetry 09/18/18 17:18 Temperature Pulse Rate Respiratory Rate Blood Pressure 123/79 O2 Sat by Pulse Oximetry - Physical Exam Abdominal Exam: Soft, Non-Tender, Non-Distended (Lethargic) Urine Color: Clear, Yellow (via external suction wick) - Plan Additional Information: Urolgically stable. Incontinence. altered mental status, chronic. UTI. P: antibiotic rx. Consider furhter urologic w/u. YS - Date & Time of Note Date: 09/18/18 Time: 12:10
[2018-09-19] MEDS: (Novolin R) Insulin Human Regular 100 units/ml vial SC SCH ×4 (00:10→17:54)
[2018-09-19] MEDS: Albuterol-Ipratrop 3 mg / 0.5 (3 ml) UD INH SCH ×4 (00:30→20:00)
[2018-09-19] MEDS ORDERED: (Novolin R) Insulin Human Regular 100 units/ml vial SC ONE (00:58)
[2018-09-19] MEDS: Moxifloxacin IV 400mg/250ml NS 400 MG/250 ML BAG IVPB SCH (03:25)
[2018-09-19] MEDS: Linezolid 600 mg in D5W 300 ml 600 MG/300 ML BAG IVPB SCH ×2 (05:45→17:54)
[2018-09-19] MEDS: MethylPREDNISolone 40 mg Vial IVP SCH ×2 (10:59→21:13)
[2018-09-19] MEDS: Pantoprazole 40 mg Susp UD PO SCH (11:00)
--- NOTE | 2018-09-19 12:01 | CP.PCM.PN ---
Subjective - Date & Time of Evaluation Date of Evaluation: 09/19/18 Time of Evaluation: 12:01 - Subjective Subjective: AFEBEILE TACHYCARDIAC. CALLED BY RN REPEAT URINE CULTURE : +VE ESBL KLEIBSIELLA PN. 09/18/18 PLAN DC IV AVELOX. START IV MERREM 500MG IVPB Q 8HRLY 09/19/18 (ALLERGY; PCN. PATIENT HAS TOLERATED iv MERREM ,AND AZACTAM IN THE PAST.) CONTINUE IV ZYVOX 600MG IV Q 12HRLY 09/15/18 CONTACT ISOLATION. Objective - Vital Signs/Intake and Output Vital Signs (last 24 hours): Temp Pulse Resp BP Pulse Ox 97.1 F L 107 H 20 138/83 99 09/19/18 08:03 09/19/18 08:03 09/19/18 08:03 09/19/18 11:00 09/19/18 08:03 Intake and Output: 09/19/18 09/19/18 06:59 18:59 Intake Total 820 550 Output Total 700 500 Balance 120 50 - Medications Medications: Current Medications Albuterol/Ipratropium (Duoneb 3 Mg/0.5 Mg (3 Ml) Ud) 3 ml INH RQ6 [facility] Last Admin: 09/19/18 00:30 Dose: Not Given Aspirin (Aspirin Chewable) 81 mg PO DAILY [facility] Last Admin: 09/19/18 10:59 Dose: 81 mg Heparin Sodium (Porcine) (Heparin) 5,000 units SC Q12H [facility] Last Admin: 09/19/18 11:06 Dose: 5,000 units Linezolid (Zyvox 600mg/300ml D5w) 600 mg in 300 mls @ 200 mls/hr IVPB Q12H [facility]; Protocol Last Admin: 09/19/18 05:45 Dose: 200 mls/hr Insulin Glargine (Lantus) 20 unit SC HS [facility] Last Admin: 09/18/18 21:27 Dose: 20 units Insulin Human Regular (Novolin R) 0 unit SC Q6 [facility]; Protocol Last Admin: 09/19/18 06:15 Dose: 6 unit Methylprednisolone (Solu-Medrol) 40 mg IVP Q12 [facility] Last Admin: 09/19/18 10:59 Dose: 40 mg Metoprolol Tartrate (Lopressor) 25 mg PO BID [facility] Last Admin: 09/19/18 11:00 Dose: 25 mg Pantoprazole Sodium (Protonix Susp) 40 mg PO DAILY [facility] Last Admin: 09/19/18 11:00 Dose: 40 mg Rosuvastatin Calcium (Crestor) 5 mg PO HS [facility] Last Admin: 09/18/18 21:27 Dose: 5 mg - Labs Labs: 09/17/18 07:05 09/17/18 07:05 PT 10.6 SECONDS (9.7-12.2) 09/12/18 22:42 INR 1.0 09/12/18 22:42 APTT 25 SECONDS (21-34) 09/12/18 22:42 - Constitutional Appears: No Acute Distress - Head Exam Head Exam: NORMAL INSPECTION - Eye Exam Eye Exam: EOMI, PERRL - ENT Exam ENT Exam: Mucous Membranes Dry, Mucous Membranes Moist - Neck Exam Neck Exam: Normal Inspection - Respiratory Exam Respiratory Exam: Prolonged Expiratory Phase, Rhonchi (occasional RT. rhonchi lower lobe ) - Cardiovascular Exam Cardiovascular Exam: Tachycardia, REGULAR RHYTHM, +S1, +S2 - GI/Abdominal Exam GI & Abdominal Exam: Soft, Normal Bowel Sounds (PEG IN PLACE) - Neurological Exam Neurological Exam: Awake, CN II-XII Intact - Psychiatric Exam Psychiatric exam: Flat Affect - Skin Skin Exam: Normal Color, Warm Assessment and Plan (1) Altered mental status Status: Acute (2) UTI (urinary tract infection) Status: Acute (3) Pneumonia Status: Acute (4) Hypertension Status: Acute (5) Gastrostomy tube in place Status: Acute (6) Skin irritation Status: Acute - Assessment and Plan (Free Text) Plan: PLAN DC IV AVELOX. START IV MERREM 500MG IVPB Q 8HRLY 09/19/18 (ALLERGY; PCN. PATIENT HAS TOLERATED iv MERREM ,AND AZACTAM IN THE PAST.) CONTINUE IV ZYVOX 600MG IV Q 12HRLY 09/15/18 IV ACCESS POOR . MAY NEED PICC LINE. CONTACT ISOLATION. CASE DISCUSSED WITH NETWORK SUPPORT ENGINEER HIGH HEEL BUILDER.
[2018-09-19] MEDS: Meropenem 500 MG in Sodium Chloride 0.9% 100 ML IVPB SCH ×2 (13:42→21:12)
--- NOTE | 2018-09-19 19:20 | CP.PCM.PN ---
Subjective - Date & Time of Evaluation Date of Evaluation: 09/18/18 Time of Evaluation: 19:19 - Subjective Subjective: Patient is awake and responding. Urine culture multi-organisms. On IV consultation and antibiotic. Spoke to the patient's daughter will continue the current treatment. Glucose control and will follow the patient Objective - Vital Signs/Intake and Output Vital Signs (last 24 hours): Temp Pulse Resp BP Pulse Ox 98.7 F 94 H 18 146/72 100 09/19/18 16:03 09/19/18 18:00 09/19/18 16:03 09/19/18 17:55 09/19/18 18:00 Intake and Output: 09/19/18 09/20/18 18:59 06:59 Intake Total 1070 Output Total 975 Balance 95 - Medications Medications: Current Medications Albuterol/Ipratropium (Duoneb 3 Mg/0.5 Mg (3 Ml) Ud) 3 ml INH RQ6 [facility] Last Admin: 09/19/18 13:50 Dose: 3 ml Aspirin (Aspirin Chewable) 81 mg PO DAILY [facility] Last Admin: 09/19/18 10:59 Dose: 81 mg Heparin Sodium (Porcine) (Heparin) 5,000 units SC Q12H [facility] Last Admin: 09/19/18 11:06 Dose: 5,000 units Linezolid (Zyvox 600mg/300ml D5w) 600 mg in 300 mls @ 200 mls/hr IVPB Q12H [facility]; Protocol Last Admin: 09/19/18 17:54 Dose: 200 mls/hr Meropenem 500 mg/ Sodium (Chloride) 100 mls @ 100 mls/hr IVPB Q8H [facility]; Protocol Last Admin: 09/19/18 13:42 Dose: 100 mls/hr Insulin Glargine (Lantus) 20 unit SC HS [facility] Last Admin: 09/18/18 21:27 Dose: 20 units Insulin Human Regular (Novolin R) 0 unit SC Q6 [facility]; Protocol Last Admin: 09/19/18 17:54 Dose: 6 unit Methylprednisolone (Solu-Medrol) 40 mg IVP Q12 [facility] Last Admin: 09/19/18 10:59 Dose: 40 mg Metoprolol Tartrate (Lopressor) 25 mg PO BID [facility] Last Admin: 09/19/18 17:55 Dose: 25 mg Pantoprazole Sodium (Protonix Susp) 40 mg PO DAILY [facility] Last Admin: 09/19/18 11:00 Dose: 40 mg Rosuvastatin Calcium (Crestor) 5 mg PO HS [facility] Last Admin: 09/18/18 21:27 Dose: 5 mg - Labs Labs: 09/17/18 07:05 09/17/18 07:05 PT 10.6 SECONDS (9.7-12.2) 09/12/18 22:42 INR 1.0 09/12/18 22:42 APTT 25 SECONDS (21-34) 09/12/18 22:42
--- NOTE | 2018-09-19 19:20 | CP.PCM.PN ---
Subjective - Date & Time of Evaluation Date of Evaluation: 09/19/18 Time of Evaluation: 19:20 - Subjective Subjective: Patient is more awake now. No fever noted. The blood sugar is still elevated. We will continue the current treatment. Urine culture showing multiple drug resistant bacteria. As per infectious disease patient will need long-term IV antibiotic. We will continue the current treatment PICC line and will follow the patient Objective - Vital Signs/Intake and Output Vital Signs (last 24 hours): Temp Pulse Resp BP Pulse Ox 98.7 F 94 H 18 146/72 100 09/19/18 16:03 09/19/18 18:00 09/19/18 16:03 09/19/18 17:55 09/19/18 18:00 Intake and Output: 09/19/18 09/20/18 18:59 06:59 Intake Total 1070 Output Total 975 Balance 95 - Medications Medications: Current Medications Albuterol/Ipratropium (Duoneb 3 Mg/0.5 Mg (3 Ml) Ud) 3 ml INH RQ6 [facility] Last Admin: 09/19/18 13:50 Dose: 3 ml Aspirin (Aspirin Chewable) 81 mg PO DAILY [facility] Last Admin: 09/19/18 10:59 Dose: 81 mg Heparin Sodium (Porcine) (Heparin) 5,000 units SC Q12H [facility] Last Admin: 09/19/18 11:06 Dose: 5,000 units Linezolid (Zyvox 600mg/300ml D5w) 600 mg in 300 mls @ 200 mls/hr IVPB Q12H [facility]; Protocol Last Admin: 09/19/18 17:54 Dose: 200 mls/hr Meropenem 500 mg/ Sodium (Chloride) 100 mls @ 100 mls/hr IVPB Q8H [facility]; Protocol Last Admin: 09/19/18 13:42 Dose: 100 mls/hr Insulin Glargine (Lantus) 20 unit SC HS [facility] Last Admin: 09/18/18 21:27 Dose: 20 units Insulin Human Regular (Novolin R) 0 unit SC Q6 [facility]; Protocol Last Admin: 09/19/18 17:54 Dose: 6 unit Methylprednisolone (Solu-Medrol) 40 mg IVP Q12 [facility] Last Admin: 09/19/18 10:59 Dose: 40 mg Metoprolol Tartrate (Lopressor) 25 mg PO BID [facility] Last Admin: 02/21/19 17:55 Dose: 25 mg Pantoprazole Sodium (Protonix Susp) 40 mg PO DAILY [facility] Last Admin: 09/19/18 11:00 Dose: 40 mg Rosuvastatin Calcium (Crestor) 5 mg PO HS [facility] Last Admin: 09/18/18 21:27 Dose: 5 mg - Labs Labs: 09/17/18 07:05 09/17/18 07:05 PT 10.6 SECONDS (9.7-12.2) 09/12/18 22:42 INR 1.0 09/12/18 22:42 APTT 25 SECONDS (21-34) 09/12/18 22:42
[2018-09-19] MEDS: (Lantus) Insulin Glargine, Recombinant SC SCH (21:12)
[2018-09-20] MEDS: (Novolin R) Insulin Human Regular 100 units/ml vial SC SCH ×4 (00:30→18:35)
[2018-09-20] MEDS: Albuterol-Ipratrop 3 mg / 0.5 (3 ml) UD INH SCH ×4 (02:52→20:26)
[2018-09-20] MEDS: Meropenem 500 MG in Sodium Chloride 0.9% 100 ML IVPB SCH ×3 (04:15→21:24)
[2018-09-20] MEDS: Linezolid 600 mg in D5W 300 ml 600 MG/300 ML BAG IVPB SCH ×2 (05:29→17:21)
[2018-09-20] MEDS: Pantoprazole 40 mg Susp UD PO SCH (09:14)
[2018-09-20] MEDS: MethylPREDNISolone 40 mg Vial IVP SCH ×2 (09:14→21:24)
--- NOTE | 2018-09-20 17:30 | PCM.URO ---
Urology Progress Note - General General: No Complaints, Tolerating Diet - Subjective Abdominal Pain: No Flank Pain: No Nausea: No Vomiting: No Voiding Well: No (incontinenct) Hematuria: No Dsypnea: No Chest Pain: No Fever & Chills: No - Objective Lab Results Last 24 Hours: Laboratory Results - last 24 hr 09/19/18 09/20/18 09/20/18 17:38 00:16 06:01 POC Glucose (mg/dL) 346 H 331 H 332 H 09/20/18 11:36 POC Glucose (mg/dL) 256 H Intake & Output: Intake & Output 09/19/18 09/20/18 09/20/18 18:59 06:59 18:59 Intake Total 7676 450 5024 Output Total 975 700 600 Balance 95 220 640 Intake: Intake, IV Amount 400 300 Left Hand 400 300 Oral 0 Tube Feeding 870 320 640 Other 200 200 300 Output: Urine 975 700 600 Urine, Voided 975 700 600 Other: # Bowel Movements 0 1 0 Vital Signs: Vital Signs - 24 hr 09/19/18 09/19/18 09/20/18 17:55 18:00 00:00 Temperature 97.7 F Pulse Rate 94 H 109 H Respiratory 20 Rate Blood Pressure 146/72 128/63 O2 Sat by Pulse 100 99 Oximetry 09/20/18 09/20/18 09/20/18 08:29 09:14 16:29 Temperature 97.5 F L 99.1 F Pulse Rate 108 H 120 H Respiratory 20 20 Rate Blood Pressure 149/91 H 150/80 162/81 H O2 Sat by Pulse 100 100 Oximetry - Physical Exam Abdominal Exam: Soft, Non-Tender, Non-Distended Back: No CVA Tenderness Urine Color: Yellow - Plan Additional Information: IMP: recurrent uti. dementia. P/rec: antibiotic rx. considere cysto, cmg, cgm. Discussed w pt's daughter - Date & Time of Note Date: 09/20/18 Time: 12:50
--- NOTE | 2018-09-20 20:32 | CP.PCM.PN ---
Subjective - Date & Time of Evaluation Date of Evaluation: 09/20/18 Time of Evaluation: 20:32 - Subjective Subjective: AFEBRILE SMILING MORE AWAKE, S/P PICC LINE. ON IV ABX Objective - Vital Signs/Intake and Output Vital Signs (last 24 hours): Temp Pulse Resp BP Pulse Ox 98.8 F 110 H 18 139/80 99 09/20/18 18:00 09/20/18 18:00 09/20/18 18:00 09/20/18 18:00 09/20/18 18:00 Intake and Output: 09/20/18 09/21/18 18:59 06:59 Intake Total 1240 Output Total 600 Balance 640 - Medications Medications: Current Medications Albuterol/Ipratropium (Duoneb 3 Mg/0.5 Mg (3 Ml) Ud) 3 ml INH RQ6 [facility] Last Admin: 09/20/18 20:26 Dose: 3 ml Aspirin (Aspirin Chewable) 81 mg PO DAILY [facility] Last Admin: 09/20/18 09:14 Dose: 81 mg Heparin Sodium (Porcine) (Heparin) 5,000 units SC Q12H [facility] Last Admin: 09/20/18 09:14 Dose: 5,000 units Linezolid (Zyvox 600mg/300ml D5w) 600 mg in 300 mls @ 200 mls/hr IVPB Q12H [facility]; Protocol Last Admin: 09/20/18 17:21 Dose: 200 mls/hr Meropenem 500 mg/ Sodium (Chloride) 100 mls @ 100 mls/hr IVPB Q8H [facility]; Protocol Last Admin: 09/20/18 12:34 Dose: 100 mls/hr Insulin Glargine (Lantus) 20 unit SC HS [facility] Last Admin: 09/19/18 21:12 Dose: 20 units Insulin Human Regular (Novolin R) 0 unit SC Q6 [facility]; Protocol Last Admin: 09/20/18 18:35 Dose: 8 unit Methylprednisolone (Solu-Medrol) 40 mg IVP Q12 [facility] Last Admin: 09/20/18 09:14 Dose: 40 mg Metoprolol Tartrate (Lopressor) 25 mg PO BID [facility] Last Admin: 09/20/18 17:30 Dose: 25 mg Pantoprazole Sodium (Protonix Susp) 40 mg PO DAILY [facility] Last Admin: 09/20/18 09:14 Dose: 40 mg Rosuvastatin Calcium (Crestor) 5 mg PO HS [facility] Last Admin: 09/19/18 21:12 Dose: 5 mg - Labs Labs: 09/17/18 07:05 09/17/18 07:05 PT 10.6 SECONDS (9.7-12.2) 09/12/18 22:42 INR 1.0 09/12/18 22:42 APTT 25 SECONDS (21-34) 09/12/18 22:42 - Constitutional Appears: No Acute Distress - Head Exam Head Exam: NORMAL INSPECTION - Eye Exam Eye Exam: EOMI, PERRL - ENT Exam ENT Exam: Mucous Membranes Moist, Normal Oropharynx - Neck Exam Neck Exam: Normal Inspection - Respiratory Exam Respiratory Exam: Decreased Breath Sounds, NORMAL BREATHING PATTERN - Cardiovascular Exam Cardiovascular Exam: Tachycardia, REGULAR RHYTHM, +S1, +S2 - GI/Abdominal Exam GI & Abdominal Exam: Soft, Normal Bowel Sounds (VE PEG IN PLACE) - Extremities Exam Extremities Exam: Normal Capillary Refill. absent: Calf Tenderness, Pedal Edema - Neurological Exam Neurological Exam: Alert, Awake, CN II-XII Intact - Psychiatric Exam Psychiatric exam: Normal Mood - Skin Skin Exam: Normal Color, Warm Assessment and Plan (1) Altered mental status Status: Acute (2) UTI (urinary tract infection) Status: Acute (3) Pneumonia Status: Acute (4) Hypertension Status: Acute (5) Gastrostomy tube in place Status: Acute (6) Skin irritation Status: Acute - Assessment and Plan (Free Text) Plan: CONTINUE IV MERREM 500MG IVPB Q 8HRLY 09/19/18 (ALLERGY; PCN. PATIENT HAS TOLERATED iv MERREM ,AND AZACTAM IN THE PAST.) CONTINUE IV ZYVOX 600MG IV Q 12HRLY 09/15/18 X 2 DAYS MORE IV FLUIDS PER PMD. SACRAL REDNESS - CHANGE POSITIONING Q 2HRLY CONTACT ISOLATION. CASE DISCUSSED WITH CONDUCTOR PULLMAN TABLE WORKER PACKAGER.
[2018-09-20] MEDS: (Lantus) Insulin Glargine, Recombinant SC SCH (21:22)
[2018-09-21] MEDS: (Novolin R) Insulin Human Regular 100 units/ml vial SC SCH ×4 (00:15→18:17)
[2018-09-21] MEDS: Albuterol-Ipratrop 3 mg / 0.5 (3 ml) UD INH SCH ×4 (02:40→20:59)
[2018-09-21] MEDS: Meropenem 500 MG in Sodium Chloride 0.9% 100 ML IVPB SCH ×3 (04:15→21:17)
[2018-09-21] MEDS: Linezolid 600 mg in D5W 300 ml 600 MG/300 ML BAG IVPB SCH ×2 (06:19→18:12)
[2018-09-21] MEDS: Pantoprazole 40 mg Susp UD PO SCH (10:45)
[2018-09-21] MEDS: MethylPREDNISolone 40 mg Vial IVP SCH ×2 (10:45→22:15)
[2018-09-21] MEDS: (Lantus) Insulin Glargine, Recombinant SC SCH (22:16)
--- NOTE | 2018-09-21 22:53 | CP.PCM.PN ---
Subjective - Date & Time of Evaluation Date of Evaluation: 09/21/18 Time of Evaluation: 22:52 - Subjective Subjective: AFEBRILE, NO NEW EVENTS PICC LINE WORKING. ON IV ABX Objective - Vital Signs/Intake and Output Vital Signs (last 24 hours): Temp Pulse Resp BP Pulse Ox 99.6 F 102 H 20 127/76 98 09/21/18 16:03 09/21/18 16:03 09/21/18 16:03 09/21/18 18:13 09/21/18 16:03 Intake and Output: 09/21/18 09/22/18 18:59 06:59 Intake Total 1440 Output Total 1000 Balance 440 - Medications Medications: Current Medications Albuterol/Ipratropium (Duoneb 3 Mg/0.5 Mg (3 Ml) Ud) 3 ml INH RQ6 [facility] Last Admin: 09/21/18 20:59 Dose: Not Given Aspirin (Aspirin Chewable) 81 mg PO DAILY [facility] Last Admin: 09/21/18 10:45 Dose: 81 mg Linezolid (Zyvox 600mg/300ml D5w) 600 mg in 300 mls @ 200 mls/hr IVPB Q12H [facility]; Protocol Last Admin: 09/21/18 18:12 Dose: 200 mls/hr Meropenem 500 mg/ Sodium (Chloride) 100 mls @ 100 mls/hr IVPB Q8H [facility]; Protocol Last Admin: 09/21/18 21:17 Dose: 100 mls/hr Insulin Glargine (Lantus) 20 unit SC HS [facility] Last Admin: 09/21/18 22:16 Dose: 20 units Insulin Human Regular (Novolin R) 0 unit SC Q6 [facility]; Protocol Last Admin: 09/21/18 18:17 Dose: 10 unit Methylprednisolone (Solu-Medrol) 40 mg IVP Q12 [facility] Last Admin: 09/21/18 22:15 Dose: 40 mg Metoprolol Tartrate (Lopressor) 25 mg PO BID [facility] Last Admin: 09/21/18 18:13 Dose: 25 mg Pantoprazole Sodium (Protonix Susp) 40 mg PO DAILY [facility] Last Admin: 09/21/18 10:45 Dose: 40 mg Rosuvastatin Calcium (Crestor) 5 mg PO HS [facility] Last Admin: 09/21/18 22:15 Dose: 5 mg - Labs Labs: 09/17/18 07:05 09/17/18 07:05 PT 10.6 SECONDS (9.7-12.2) 09/12/18 22:42 INR 1.0 09/12/18 22:42 APTT 25 SECONDS (21-34) 09/12/18 22:42 - Constitutional Appears: No Acute Distress - Head Exam Head Exam: NORMAL INSPECTION - Eye Exam Eye Exam: EOMI, PERRL - ENT Exam ENT Exam: Mucous Membranes Moist, Normal Oropharynx - Neck Exam Neck Exam: Normal Inspection - Respiratory Exam Respiratory Exam: Decreased Breath Sounds - Cardiovascular Exam Cardiovascular Exam: REGULAR RHYTHM, +S1, +S2 - GI/Abdominal Exam GI & Abdominal Exam: Soft, Normal Bowel Sounds (+VE PEG IN PLACE.) - Extremities Exam Extremities Exam: Normal Capillary Refill. absent: Calf Tenderness, Pedal Edema - Neurological Exam Neurological Exam: Awake, CN II-XII Intact - Psychiatric Exam Psychiatric exam: Normal Mood - Skin Skin Exam: Normal Color, Warm Assessment and Plan (1) Altered mental status Status: Acute (2) UTI (urinary tract infection) Status: Acute (3) Pneumonia Status: Acute (4) Hypertension Status: Acute (5) Gastrostomy tube in place Status: Acute (6) Skin irritation Status: Acute - Assessment and Plan (Free Text) Plan: CONTINUE IV MERREM 500MG IVPB Q 8HRLY 09/19/18 (ALLERGY; PCN. PATIENT HAS TOLERATED iv MERREM ,AND AZACTAM IN THE PAST.) CONTINUE IV ZYVOX 600MG IV Q 12HRLY 09/15/18 X 2 DAYS MORE IV FLUIDS PER PMD. SACRAL REDNESS - CHANGE POSITIONING Q 2HRLY CONTACT ISOLATION.
[2018-09-22] MEDS: (Novolin R) Insulin Human Regular 100 units/ml vial SC SCH ×4 (00:36→18:06)
[2018-09-22] MEDS: Meropenem 500 MG in Sodium Chloride 0.9% 100 ML IVPB SCH ×3 (04:21→20:35)
[2018-09-22] MEDS: Linezolid 600 mg in D5W 300 ml 600 MG/300 ML BAG IVPB SCH ×2 (06:24→17:41)
[2018-09-22] MEDS: Albuterol-Ipratrop 3 mg / 0.5 (3 ml) UD INH SCH ×3 (07:55→20:38)
[2018-09-22] MEDS: MethylPREDNISolone 40 mg Vial IVP SCH ×2 (09:32→22:16)
[2018-09-22] MEDS: Pantoprazole 40 mg Susp UD PO SCH (09:32)
--- NOTE | 2018-09-22 21:55 | CON ---
DATE: 09/16/2018 UROLOGY CONSULTATION REQUESTED BY: Luis Manuel Patel MD FILLED BY: Abigail Talbot MD REASON FOR CONSULTATION: Urinary tract infection. The patient is an 88-year-old male with urinary tract infection. The patient lives in a senior citizen facility. She is cared for by her daughter. The patient was admitted with increased lethargy. The patient was found to have urinary tract infection. The patient has history of recurrent urinary tract infection. The patient has history of multiple other illnesses including coronary artery disease, COPD, CHF, diabetes mellitus. There is history of pneumonia as well. The patient has history of previous coronary artery bypass graft in 1991. Previous carotid endarterectomy in 2004. The patient also has a pacemaker and a coronary artery stent. The patient has had urinary incontinence. At home, she also has fecal incontinence. The patient does not have an indwelling Gregory catheter. There has been multiple admissions to the hospital for recurrent urinary tract infection. The patient was admitted with lethargy. The patient also has history of feeding gastrostomy tube. The patient has history of achalasia. There has been no reported chest pain. No increased shortness of breath. The patient has history of previous aspiration pneumonia, previous respiratory failure, previous tracheostomy. The patient is currently receiving parenteral antibiotics. PHYSICAL EXAMINATION: GENERAL: The patient is a well-developed, well-nourished elderly female. The patient is lethargic. The patient does not converse at present. ABDOMEN: Soft, nontender, nondistended. No mass or organomegaly. BACK: No CVA tenderness. GENITOURINARY: The patient has an external sponge/wick device in the introitus. The urine in the suction container is clear. LABORATORY DATA: See attached reports. On admission, BUN 23, creatinine 0.6, glucose 231. Urinalysis revealed 66 white blood cells and 6 red blood cells per high-power field. Urine culture revealed Enterococcus, vancomycin resistant (VRE). IMPRESSION: An 88-year-old female with dementia. Urinary incontinence. Fecal incontinence. History of recurrent urinary tract infection. The etiology of the retention may be related to the urinary and fecal incontinence with fecal soiling of the introitus. Also possibility is urolithiasis, and/or urinary tract obstruction. Also possible is bladder dysfunction, possible incomplete bladder emptying. RECOMMENDATIONS AND PLAN: Antibiotic therapy. CT scan. Check postvoid residual. Possible need for further urologic investigation including cystogram, cystometrogram, and cystoscopy. Further therapy to follow according to the patient's clinical course. I will discuss further with you as well as with the patient's family. Thank you for recommending patient to urology consultation. [place] MD [place] cc: Luis Manuel Patel MD
[2018-09-22] MEDS: (Lantus) Insulin Glargine, Recombinant SC SCH (22:16)
--- NOTE | 2018-09-22 22:25 | CP.PCM.PN ---
Subjective - Date & Time of Evaluation Date of Evaluation: 09/22/18 Time of Evaluation: 22:25 - Subjective Subjective: AFEBRILE, DROWSY NO NEW EVENTS PICC LINE WORKING. ON IV ABX Objective - Vital Signs/Intake and Output Vital Signs (last 24 hours): Temp Pulse Resp BP Pulse Ox 98.3 F 116 H 20 160/77 H 100 09/22/18 16:00 09/22/18 16:00 09/22/18 16:00 09/22/18 17:44 09/22/18 16:00 Intake and Output: 09/22/18 09/23/18 18:59 06:59 Intake Total 1540 Output Total 900 Balance 640 - Medications Medications: Current Medications Albuterol/Ipratropium (Duoneb 3 Mg/0.5 Mg (3 Ml) Ud) 3 ml INH RQ6 [facility] Last Admin: 09/22/18 20:38 Dose: 3 ml Aspirin (Aspirin Chewable) 81 mg PO DAILY [facility] Last Admin: 09/22/18 09:32 Dose: 81 mg Heparin Sodium (Porcine) (Heparin) 5,000 units SC Q12 [facility] Last Admin: 09/22/18 22:09 Dose: 5,000 units Linezolid (Zyvox 600mg/300ml D5w) 600 mg in 300 mls @ 200 mls/hr IVPB Q12H [facility]; Protocol Last Admin: 09/22/18 17:41 Dose: 200 mls/hr Meropenem 500 mg/ Sodium (Chloride) 100 mls @ 100 mls/hr IVPB Q8H [facility]; Protocol Last Admin: 09/22/18 20:35 Dose: 100 mls/hr Insulin Glargine (Lantus) 20 unit SC HS [facility] Last Admin: 09/22/18 22:16 Dose: 20 units Insulin Human Regular (Novolin R) 0 unit SC Q6 [facility]; Protocol Last Admin: 09/22/18 18:06 Dose: 6 unit Methylprednisolone (Solu-Medrol) 40 mg IVP Q12 [facility] Last Admin: 09/22/18 22:16 Dose: 40 mg Metoprolol Tartrate (Lopressor) 25 mg PO BID [facility] Last Admin: 09/22/18 17:44 Dose: 25 mg Pantoprazole Sodium (Protonix Susp) 40 mg PO DAILY [facility] Last Admin: 09/22/18 09:32 Dose: 40 mg Rosuvastatin Calcium (Crestor) 5 mg PO HS [facility] Last Admin: 09/22/18 22:11 Dose: 5 mg - Labs Labs: 09/17/18 07:05 09/17/18 07:05 PT 10.6 SECONDS (9.7-12.2) 09/12/18 22:42 INR 1.0 09/12/18 22:42 APTT 25 SECONDS (21-34) 09/12/18 22:42 - Constitutional Appears: No Acute Distress, Chronically Ill - Head Exam Head Exam: NORMAL INSPECTION - Eye Exam Eye Exam: EOMI, PERRL - ENT Exam ENT Exam: Normal Oropharynx - Neck Exam Neck Exam: Normal Inspection - Respiratory Exam Respiratory Exam: Decreased Breath Sounds - Cardiovascular Exam Cardiovascular Exam: Tachycardia, REGULAR RHYTHM, +S1, +S2 - GI/Abdominal Exam GI & Abdominal Exam: Soft, Normal Bowel Sounds (+VE PEG) - Extremities Exam Extremities Exam: Normal Capillary Refill. absent: Calf Tenderness, Pedal Edema - Neurological Exam Neurological Exam: Awake - Psychiatric Exam Psychiatric exam: Flat Affect - Skin Skin Exam: Normal Color, Warm Assessment and Plan (1) Altered mental status Status: Acute (2) UTI (urinary tract infection) Status: Acute (3) Pneumonia Status: Acute (4) Hypertension Status: Acute (5) Gastrostomy tube in place Status: Acute (6) Skin irritation Status: Acute - Assessment and Plan (Free Text) Plan: CONTINUE IV MERREM 500MG IVPB Q 8HRLY 09/19/18 (ALLERGY; PCN. PATIENT HAS TOLERATED iv MERREM ,AND AZACTAM IN THE PAST.) CONTINUE IV ZYVOX 600MG IV Q 12HRLY 09/15/18 IV FLUIDS PER PMD. SACRAL REDNESS - CHANGE POSITIONING Q 2HRLY CONTACT ISOLATION.
[2018-09-23] MEDS: (Novolin R) Insulin Human Regular 100 units/ml vial SC SCH ×4 (00:10→17:57)
[2018-09-23] MEDS: Albuterol-Ipratrop 3 mg / 0.5 (3 ml) UD INH SCH ×3 (01:23→19:52)
[2018-09-23] MEDS: Meropenem 500 MG in Sodium Chloride 0.9% 100 ML IVPB SCH ×3 (05:15→21:00)
[2018-09-23] MEDS: Linezolid 600 mg in D5W 300 ml 600 MG/300 ML BAG IVPB SCH ×2 (06:22→17:39)
[2018-09-23 07:33] LABS: BASO % 0.3 % (0.0-2.0); HEMOGLOBIN 10.4 g/dL (11.0-16.0); LYMPH # 0.6 K/uL (1.0-4.3); LYMPH % 4.6 % (20.0-40.0); MEAN CELL VOLUME 94.9 fL (81.0-99.0); MEAN CORPUSCULAR HEMOGLOBIN 31.8 pg (27.0-31.0); MEAN CORPUSCULAR HGB CONC 33.5 g/dL (33.0-37.0); MEAN PLATELET VOLUME 7.6 fL (7.2-11.7); MONO # 0.6 K/uL (0.0-0.8); NEUT # 12.7 K/uL (1.8-7.0); NEUT % 91.1 % (50.0-75.0); PLATELET COUNT 271 K/uL (130-400); RBC 3.26 Mil/uL (3.80-5.20)
[2018-09-23 08:08] LABS: BLOOD UREA NITROGEN 65 mg/dL (7-17); CALCIUM 9.5 mg/dl (8.6-10.4); GFR NON-AFRICAN AMERICAN > 60
[2018-09-23 09:03] LABS: BANDS 1 % (0-2); LYMPHOCYTE 6 % (20-40); MONOCYTE 3 % (0-10); MYELOCYTE 1 % (0-0); NEUTROPHIL 89 % (50-75); PLATELET ESTIMATE NORMAL (NORMAL); TOTAL CELLS COUNTED 100
[2018-09-23 09:04] LABS: ANISOCYTOSIS SLIGHT; HYPOCHROMIC SLIGHT; POIKILOCYTOSIS SLIGHT; TOXIC GRANULATION PRESENT
[2018-09-23] MEDS: MethylPREDNISolone 40 mg Vial IVP SCH (09:19)
[2018-09-23] MEDS: Pantoprazole 40 mg Susp UD PO SCH (09:23)
[2018-09-23] MEDS ORDERED: Albuterol 0.083% Inhal Sol (2.5 mg/3 mL) UD INH STA (17:19)
[2018-09-23] MEDS ORDERED: (Novolin R) Insulin Human Regular 100 units/ml vial IV ONE (17:19)
--- NOTE | 2018-09-23 18:58 | CP.PCM.PN ---
Subjective - Date & Time of Evaluation Date of Evaluation: 09/23/18 Time of Evaluation: 18:58 - Subjective Subjective: AFEBRILE, DROWSY WEAK, HARDLY AROUSABLE. LABS ; wbc 14.0 INCREASING cREATININE 0.8/BUN 65 URINE CULTURE REPEAT +VE ESBL+KLEIBSIELLA PNEUMONIA/ YEAST S-TO mERREM Objective - Vital Signs/Intake and Output Vital Signs (last 24 hours): Temp Pulse Resp BP Pulse Ox 97.9 F 118 H 20 132/80 99 09/23/18 16:00 09/23/18 16:00 09/23/18 16:00 09/23/18 17:37 09/23/18 16:00 Intake and Output: 09/23/18 09/23/18 06:59 18:59 Intake Total 420 1340 Output Total 300 350 Balance 120 990 - Medications Medications: Current Medications Albuterol/Ipratropium (Duoneb 3 Mg/0.5 Mg (3 Ml) Ud) 3 ml INH RQ6 [facility] Last Admin: 09/23/18 08:45 Dose: 3 ml Aspirin (Aspirin Chewable) 81 mg PO DAILY [facility] Last Admin: 09/23/18 09:18 Dose: 81 mg Heparin Sodium (Porcine) (Heparin) 5,000 units SC Q12 [facility] Last Admin: 09/23/18 09:19 Dose: 5,000 units Linezolid (Zyvox 600mg/300ml D5w) 600 mg in 300 mls @ 200 mls/hr IVPB Q12H [facility]; Protocol Last Admin: 09/23/18 17:39 Dose: 200 mls/hr Meropenem 500 mg/ Sodium (Chloride) 100 mls @ 100 mls/hr IVPB Q8H [facility]; Protocol Last Admin: 09/23/18 12:45 Dose: 100 mls/hr Insulin Glargine (Lantus) 20 unit SC HS [facility] Last Admin: 09/22/18 22:16 Dose: 20 units Insulin Human Regular (Novolin R) 0 unit SC Q6 [facility]; Protocol Last Admin: 09/23/18 17:57 Dose: 6 unit Methylprednisolone (Solu-Medrol) 20 mg IVP DAILY [facility] Metoprolol Tartrate (Lopressor) 25 mg PO BID [facility] Last Admin: 09/23/18 17:37 Dose: 25 mg Pantoprazole Sodium (Protonix Susp) 40 mg PO DAILY [facility] Last Admin: 09/23/18 09:23 Dose: 40 mg Rosuvastatin Calcium (Crestor) 5 mg PO HS [facility] Last Admin: 09/22/18 22:11 Dose: 5 mg - Labs Labs: 09/23/18 07:10 09/23/18 07:10 PT 10.6 SECONDS (9.7-12.2) 09/12/18 22:42 INR 1.0 09/12/18 22:42 APTT 25 SECONDS (21-34) 09/12/18 22:42 - Constitutional Appears: In Acute Distress, Chronically Ill - Head Exam Head Exam: NORMAL INSPECTION - Eye Exam Eye Exam: PERRL - ENT Exam ENT Exam: Mucous Membranes Dry - Neck Exam Neck Exam: Normal Inspection - Respiratory Exam Respiratory Exam: Rhonchi - Cardiovascular Exam Cardiovascular Exam: Tachycardia, REGULAR RHYTHM, +S1, +S2 - GI/Abdominal Exam GI & Abdominal Exam: Soft, Normal Bowel Sounds (+VE PEG) - Extremities Exam Extremities Exam: Normal Capillary Refill, Pedal Edema (1+). absent: Calf Tenderness - Neurological Exam Neurological Exam: Altered - Skin Skin Exam: Dry, Normal Color, Warm Assessment and Plan (1) Altered mental status Status: Acute (2) UTI (urinary tract infection) Status: Acute (3) Pneumonia Status: Acute (4) Hypertension Status: Acute (5) Gastrostomy tube in place Status: Acute (6) Skin irritation Status: Acute - Assessment and Plan (Free Text) Plan: DC IV MERREM 500MG IVPB Q 8HRLY 09/19/18--09/23/18 START IV AVYCAZ 1.25 G EVERY 8 HOURLY 09/23/18 (ALLERGY; PCN. PATIENT HAS TOLERATED iv MERREM ,AND AZACTAM IN THE PAST.) START iv DIFLUCAN 100 MG iv PIGGYBACK ONCE A DAY DAILY STARTING IN THE MORNING 09/24/18 ADEQUATE CONTROL OF BLOOD SUGARS (BS 300-400 ) F/U . ? CYSTOSCOPY/VS LITHOTRIPSY DC IV ZYVOX 600MG IV Q 12HRLY 09/15/18 --09/23/18 IV FLUIDS PER PMD. SACRAL REDNESS - CHANGE POSITIONING Q 2HRLY CONTACT ISOLATION. CASE DISCUSSED WITH PHARMACY/STAFF
[2018-09-23] MEDS: (Lantus) Insulin Glargine, Recombinant SC SCH (21:29)
[2018-09-24] MEDS: (Novolin R) Insulin Human Regular 100 units/ml vial SC SCH ×4 (00:24→23:20)
[2018-09-24] MEDS: Albuterol-Ipratrop 3 mg / 0.5 (3 ml) UD INH SCH ×2 (02:56→07:30)
[2018-09-24] MEDS ORDERED: Sodium Chloride 0.9% 1,000 ML IV SCH ×2 (07:30→12:30)
[2018-09-24 08:19] LABS: HEMOGLOBIN 10.5 g/dL (11.0-16.0); MEAN CELL VOLUME 95.2 fL (81.0-99.0); MEAN CORPUSCULAR HGB CONC 32.5 g/dL (33.0-37.0); MEAN PLATELET VOLUME 7.1 fL (7.2-11.7); RBC 3.41 Mil/uL (3.80-5.20); RED CELL DISTRIBUTION WIDTH 14.6 % (11.5-14.5)
[2018-09-24 08:20] LABS: WHITE BLOOD COUNT 23.4 K/uL (4.8-10.8)
[2018-09-24 08:41] LABS: ALB/GLOB RATIO 1.6 (1.0-2.1); ALBUMIN 3.7 g/dL (3.5-5.0); ALT/SGPT 20 U/L (9-52); AST/SGOT 15 U/L (14-36); BLOOD UREA NITROGEN 61 mg/dL (7-17); CALCIUM 9.8 mg/dl (8.6-10.4); GFR NON-AFRICAN AMERICAN > 60
[2018-09-24] MEDS: MethylPREDNISolone 40 mg Vial IVP SCH (09:20)
[2018-09-24] MEDS: Pantoprazole 40 mg Susp UD PO SCH (09:20)
[2018-09-24] MEDS ORDERED: IOHEXOL IJ ONE (10:06)
[2018-09-24] MEDS ORDERED: cefTRIAXone 1 gm 0 GM/0 ML BAG IVPB ONE (10:06)
[2018-09-24] MEDS ORDERED: Lidocaine 2% Jelly (Uro-Jet) ONE (10:07)
--- NOTE | 2018-09-24 10:33 | PCM.URO ---
Urology Progress Note - General General: Tolerating Diet (tolerating feeding via GT) - Subjective Abdominal Pain: No Nausea: No Vomiting: No Voiding Well: No (incontinent) Hematuria: No Chest Pain: No Fever & Chills: No - Objective Lab Results Last 24 Hours: Laboratory Results - last 24 hr 09/23/18 09/23/18 09/23/18 11:17 17:50 23:44 WBC RBC Hgb Hct MCV MCH MCHC RDW Plt Count MPV Differential Comment Sodium Potassium Chloride Carbon Dioxide Anion Gap BUN Creatinine Est GFR ( Amer) Est GFR (Non-Af Amer) POC Glucose (mg/dL) 323 H 300 H 293 H Random Glucose Calcium Phosphorus Magnesium Total Bilirubin AST ALT Alkaline Phosphatase Total Protein Albumin Globulin Albumin/Globulin Ratio 09/24/18 09/24/18 09/24/18 05:56 08:07 08:07 WBC 23.4 H D RBC 3.41 L Hgb 10.5 L Hct 32.4 L MCV 95.2 MCH 31.0 MCHC 32.5 L RDW 14.6 H Plt Count 261 MPV 7.1 L Differential Comment Sodium 137 Potassium 5.0 Chloride 95 L Carbon Dioxide 35 H Anion Gap 12 BUN 61 H Creatinine 0.7 Est GFR ( Amer) > 60 Est GFR (Non-Af Amer) > 60 POC Glucose (mg/dL) 149 H Random Glucose 136 H D Calcium 9.8 Phosphorus 4.7 H Magnesium 2.3 Total Bilirubin 0.9 AST 15 ALT 20 Alkaline Phosphatase 52 Total Protein 6.0 L Albumin 3.7 Globulin 2.4 Albumin/Globulin Ratio 1.6 Intake & Output: Intake & Output 09/23/18 09/24/18 09/24/18 18:59 06:59 18:59 Intake Total 1340 965 Output Total 350 800 Balance 990 165 Intake: Intake, IV Amount 400 400 Left Hand 400 400 Tube Feeding 740 365 Other 200 200 Output: Urine 350 800 Urine, Voided 350 800 Other: # Bowel Movements 1 1 Vital Signs: Vital Signs - 24 hr 09/23/18 09/23/18 09/23/18 16:00 17:37 23:17 Temperature 97.9 F 98.2 F Pulse Rate 118 H 120 H Respiratory 20 20 Rate Blood Pressure 130/80 132/80 133/71 O2 Sat by Pulse 99 100 Oximetry 09/24/18 07:30 Temperature 98.1 F Pulse Rate 110 H Respiratory 20 Rate Blood Pressure 160/77 H O2 Sat by Pulse 100 Oximetry - Physical Exam Abdominal Exam: Soft, Non-Tender, Non-Distended Back: No CVA Tenderness Urine Color: Yellow - Plan Intake & Output: Yes See Orders: Yes Additional Information: IMP: recurrent UTI. Incontinence. dementia. P: will discuss w pt and attending re poss further urologic w/u. YS - Date & Time of Note Date: 09/23/18 Time: 11:40
--- NOTE | 2018-09-24 10:34 | PCM.SURG1 ---
Surgeon's Initial Post Op Note - Surgeon's Notes Surgeon: Olga Talbot Terrazzo Mechanic: none Type of Anesthesia: None Pre-Operative Diagnosis: UTI Operative Findings: no finding Post-Operative Diagnosis: none Operation Performed: No procedure performed. Procedure cancelled due to abnormal ekg Specimen/Specimens Removed: none Estimated Blood Loss: EBL {In ML}: 0 Blood Products Given: N/A Drains Used: No Drains Post-Op Condition: Fair Date of Surgery/Procedure: 09/24/18 Time of Surgery/Procedure: 10:34
--- NOTE | 2018-09-24 10:37 | PCM.URO ---
Urology Progress Note - General General: No Complaints - Subjective Abdominal Pain: No Nausea: No Fever & Chills: No - Objective Lab Studies: Reviewed (leukocytosis) Lab Results Last 24 Hours: Laboratory Results - last 24 hr 09/23/18 09/23/18 09/23/18 11:17 17:50 23:44 WBC RBC Hgb Hct MCV MCH MCHC RDW Plt Count MPV Differential Comment Sodium Potassium Chloride Carbon Dioxide Anion Gap BUN Creatinine Est GFR ( Amer) Est GFR (Non-Af Amer) POC Glucose (mg/dL) 323 H 300 H 293 H Random Glucose Calcium Phosphorus Magnesium Total Bilirubin AST ALT Alkaline Phosphatase Total Protein Albumin Globulin Albumin/Globulin Ratio 09/24/18 09/24/18 09/24/18 05:56 08:07 08:07 WBC 23.4 H D RBC 3.41 L Hgb 10.5 L Hct 32.4 L MCV 95.2 MCH 31.0 MCHC 32.5 L RDW 14.6 H Plt Count 261 MPV 7.1 L Differential Comment Sodium 137 Potassium 5.0 Chloride 95 L Carbon Dioxide 35 H Anion Gap 12 BUN 61 H Creatinine 0.7 Est GFR ( Amer) > 60 Est GFR (Non-Af Amer) > 60 POC Glucose (mg/dL) 149 H Random Glucose 136 H D Calcium 9.8 Phosphorus 4.7 H Magnesium 2.3 Total Bilirubin 0.9 AST 15 ALT 20 Alkaline Phosphatase 52 Total Protein 6.0 L Albumin 3.7 Globulin 2.4 Albumin/Globulin Ratio 1.6 Intake & Output: Intake & Output 09/23/18 09/24/18 09/24/18 18:59 06:59 18:59 Intake Total 1340 965 Output Total 350 800 Balance 990 165 Intake: Intake, IV Amount 400 400 Left Hand 400 400 Tube Feeding 740 365 Other 200 200 Output: Urine 350 800 Urine, Voided 350 800 Other: # Bowel Movements 1 1 Vital Signs: Vital Signs - 24 hr 09/23/18 09/23/18 09/23/18 16:00 17:37 23:17 Temperature 97.9 F 98.2 F Pulse Rate 118 H 120 H Respiratory 20 20 Rate Blood Pressure 130/80 132/80 133/71 O2 Sat by Pulse 99 100 Oximetry 09/24/18 07:30 Temperature 98.1 F Pulse Rate 110 H Respiratory 20 Rate Blood Pressure 160/77 H O2 Sat by Pulse 100 Oximetry - Physical Exam Abdominal Exam: Soft, Non-Tender Back: No CVA Tenderness - Plan Additional Information: Pt was scheduled for cysto today. Cysto postponed due to abnormal EKG. - Date & Time of Note Date: 09/24/18 Time: 10:36
[2018-09-24] MEDS ORDERED: Digoxin 500 mcg/2ml (0.5 mg/2ml) Inj IVP ONE (12:29)
--- NOTE | 2018-09-24 13:54 | CP.PCM.PN ---
Subjective - Date & Time of Evaluation Date of Evaluation: 09/23/18 Time of Evaluation: 21:00 - Subjective Subjective: Patient labs reviewed. Elevated potassium level noted. Kayexalate and albuterol and insulin was given. Patient is awake and responding. Not in any distress. Chest good air entry otherwise. Assessment and recommendation: 88-year-old female admitted to the hospital with urosepsis. Multidrug-resistant organisms. Patient is on antibiotic as per ID. COPD. Hypertension. CAD. Status post CABG. Will continue the current treatment. Repeat labs tomorrow. ID followup and will follow up with the patient Objective - Vital Signs/Intake and Output Vital Signs (last 24 hours): Temp Pulse Resp BP Pulse Ox 97.7 F 135 H 20 111/60 100 09/24/18 10:37 09/24/18 12:25 09/24/18 12:25 09/24/18 12:25 09/24/18 12:25 Intake and Output: 09/24/18 09/24/18 06:59 18:59 Intake Total 965 0 Output Total 800 Balance 165 0 - Medications Medications: Current Medications Albuterol/Ipratropium (Duoneb 3 Mg/0.5 Mg (3 Ml) Ud) 3 ml INH RQ6 [facility] Last Admin: 09/24/18 07:30 Dose: 3 ml Aspirin (Aspirin Chewable) 81 mg PO DAILY [facility] Last Admin: 09/24/18 09:19 Dose: Not Given Heparin Sodium (Porcine) (Heparin) 5,000 units SC Q12 [facility] Last Admin: 09/24/18 09:19 Dose: Not Given Fluconazole (Diflucan Iv 100 Mg/50 Ml Ns) 50 mls @ 100 mls/hr IVPB DAILY [facility]; Protocol Ceftazidime/Avibactam 1.25 gm/ (Sodium Chloride) 100 mls @ 50 mls/hr IV Q8H [facility]; Protocol Last Admin: 09/24/18 08:20 Dose: 50 mls/hr Sodium Chloride (Sodium Chloride 0.9%) 1,000 mls @ 75 mls/hr IV .[id number] [facility] Last Admin: 09/24/18 08:20 Dose: 75 mls/hr Sodium Chloride (Sodium Chloride 0.9%) 1,000 mls @ 100 mls/hr IV .Q10H [facility] Insulin Glargine (Lantus) 20 unit SC HS [facility] Last Admin: 09/23/18 21:29 Dose: 20 units Insulin Human Regular (Novolin R) 0 unit SC Q6 [facility]; Protocol Last Admin: 09/24/18 06:22 Dose: Not Given Methylprednisolone (Solu-Medrol) 20 mg IVP DAILY [facility] Last Admin: 09/24/18 09:20 Dose: Not Given Metoprolol Tartrate (Lopressor) 25 mg PO BID [facility] Last Admin: 09/24/18 09:19 Dose: Not Given Pantoprazole Sodium (Protonix Susp) 40 mg PO DAILY [facility] Last Admin: 09/24/18 09:20 Dose: Not Given Rosuvastatin Calcium (Crestor) 5 mg PO HS [facility] Last Admin: 09/23/18 21:31 Dose: 5 mg - Labs Labs: 09/24/18 08:07 09/24/18 08:07 PT 10.6 SECONDS (9.7-12.2) 09/12/18 22:42 INR 1.0 09/12/18 22:42 APTT 25 SECONDS (21-34) 09/12/18 22:42
[2018-09-24] MEDS ORDERED: Sodium Chloride 0.9% 250 ML IV ONE ×2 (14:01→14:53)
--- NOTE | 2018-09-24 14:18 | CP.PCM.PN ---
Subjective - Date & Time of Evaluation Date of Evaluation: 09/24/18 Time of Evaluation: 12:00 - Subjective Subjective: Patient is 88yo F with PMHx of AFib, DM, CAD s/p CABGx2 with pacemaker, COPD, h/o tracheostomy originally schedule for cystoscopy, CGM, CMG and retrograde pyelogram in the OR. She was brought to the OR, after monitors were placed patient notice to be tachycardic with HR of 150-160 with what appears to be ST depression on the lateral leads. No anesthesia was administered. Dr. Nicanor Talbot was made aware of the patient condition and it was decided the procedure to be cancelled as the patient needs further medical optimization and care. Patient was then transfer to the PACU where a 12 lead ekg was obtained which revealed rapid a fib at 150 with RBBB. In the PACU patient VS- BP: 140/68 P: 164 RR: 20 SpO2 100%. Patient mentation was at baseline unresponsive to verbal stimuli only opens eyes with tactile stimulation. Primary medical doctor Dr. Patel was made aware of the patient condition and advise to administer IV cardizem. Cardizem 5mg IV was given follow by metoprolol 2.5mg IV. Heart rate improve to 120s. Upon review of the medical chart patient did not receive her morning dose of metoprolol. Dr. Patel advised to transfer to telemetry bed for further management. Objective - Vital Signs/Intake and Output Vital Signs (last 24 hours): Temp Pulse Resp BP Pulse Ox 97.7 F 135 H 20 111/60 100 09/24/18 10:37 09/24/18 12:25 09/24/18 12:25 09/24/18 12:25 09/24/18 12:25 Intake and Output: 09/24/18 09/24/18 06:59 18:59 Intake Total 965 0 Output Total 800 Balance 165 0 - Medications Medications: Current Medications Albuterol/Ipratropium (Duoneb 3 Mg/0.5 Mg (3 Ml) Ud) 3 ml INH RQ6 [facility] Last Admin: 09/24/18 07:30 Dose: 3 ml Aspirin (Aspirin Chewable) 81 mg PO DAILY [facility] Last Admin: 09/24/18 09:19 Dose: Not Given Heparin Sodium (Porcine) (Heparin) 5,000 units SC Q12 [facility] Last Admin: 09/24/18 09:19 Dose: Not Given Fluconazole (Diflucan Iv 100 Mg/50 Ml Ns) 50 mls @ 100 mls/hr IVPB DAILY [facility]; Protocol Ceftazidime/Avibactam 1.25 gm/ (Sodium Chloride) 100 mls @ 50 mls/hr IV Q8H [facility]; Protocol Last Admin: 09/24/18 08:20 Dose: 50 mls/hr Sodium Chloride (Sodium Chloride 0.9%) 1,000 mls @ 75 mls/hr IV .[id number] [facility] Last Admin: 09/24/18 08:20 Dose: 75 mls/hr Sodium Chloride (Sodium Chloride 0.9%) 1,000 mls @ 100 mls/hr IV .Q10H [facility] Sodium Chloride (Sodium Chloride 0.9%) 250 mls @ 1,000 mls/hr IV .Q15M ONE Stop: 09/24/18 14:15 Insulin Glargine (Lantus) 20 unit SC [facility] Last Admin: 09/23/18 21:29 Dose: 20 units Insulin Human Regular (Novolin R) 0 unit SC Q6 [facility]; Protocol Last Admin: 09/24/18 06:22 Dose: Not Given Methylprednisolone (Solu-Medrol) 20 mg IVP DAILY [facility] Last Admin: 09/24/18 09:20 Dose: Not Given Metoprolol Tartrate (Lopressor) 25 mg PO BID [facility] Last Admin: 09/24/18 09:19 Dose: Not Given Metoprolol Tartrate (Lopressor) 2.5 mg IVP STAT [facility] Stop: 09/24/18 13:59 Metoprolol Tartrate (Lopressor) 25 mg PEG STAT [facility] Stop: 09/24/18 14:04 Pantoprazole Sodium (Protonix Susp) 40 mg PO DAILY [facility] Last Admin: 09/24/18 09:20 Dose: Not Given Rosuvastatin Calcium (Crestor) 5 mg PO HS [facility] Last Admin: 09/23/18 21:31 Dose: 5 mg - Labs Labs: 09/24/18 08:07 09/24/18 08:07 PT 10.6 SECONDS (9.7-12.2) 09/12/18 22:42 INR 1.0 09/12/18 22:42 APTT 25 SECONDS (21-34) 09/12/18 22:42
[2018-09-24] MEDS ORDERED: Metoprolol 1 mg/ml Inj IVP STA (14:22)
--- NOTE | 2018-09-24 14:24 | PCM.RRT ---
"<Elis Bradshaw - Last Filed: 09/25/18 07:03> S[employer]OL GUIDANCE COUNSELOR Nurses Assessment - Situation Date: 09/24/18 Time SCHOOL GUIDANCE COUNSELOR was called: 13:53 SCHOOL GUIDANCE COUNSELOR Responder Arrival Time:: 13:54 SCHOOL GUIDANCE COUNSELOR Location:: Med/Surg Room Number: 654 S[employer]OL GUIDANCE COUNSELOR Reason for Call: Tachycardia, Change in Mental Status SCHOOL GUIDANCE COUNSELOR Called By: RN - IV IV Inserted during SCHOOL GUIDANCE COUNSELOR?: No - Respiratory S[employer] GUIDANCE COUNSELOR Delivery Method: Nasal Cannula @L/min (2L) Received Nebulizer Treatments: No Was the Patient Ventilated with Bag/Mask 100% O2?: No Secretions Suctioned?: No Was the Patient Intubated?: No Was the Patient Placed on a Ventilator?: No - Ventilator Settings SAO2 %: 99 - Diagnostic Test Ordered EKG: Yes - Vital Signs Vital Signs: BP - 101/52| Pulse - 140-150s| 02 - 99% on 2L NC, - Time SCHOOL GUIDANCE COUNSELOR Ended Time SCHOOL GUIDANCE COUNSELOR Ended: 14:22 - Vital Signs at end of SCHOOL GUIDANCE COUNSELOR Vital Signs at end of SCHOOL GUIDANCE COUNSELOR: BP - 117/57 | 02 - 99% on 2L, Glucose - 170s, HR - 85-110 - Recommendations 5) SCHOOL GUIDANCE COUNSELOR Level of Care Recommendations: Transfer to ICU Notifications: Attending Physician, Family or Designated Caregiver (Daughter was at bedside. ) I.Reason for SCHOOL GUIDANCE COUNSELOR - A) Acute Change in Patient: (Select all that apply): Acute change in mental status Subjective: SCHOOL GUIDANCE COUNSELOR Called at 13:53 for tachycardia and altered mental status. Patient was to go for cystoscopy but it was cancelled due to the tachycardia. EKG was done and patient was found to be in A-fib RVR. Patient was responsive to painful stimuli. Patient does have a history of A-fib and missed her morning Metoprolol dose. - Neurological Status (Select all that apply): Responsive, Lethargic - Respiratory Oxygen Delivery Method: Nasal Cannula @L/min (2) - Constitutional Appears: Non-toxic - Head Head Exam: ATRAUMATIC, NORMAL INSPECTION, NORMOCEPHALIC - Eyes Eye Exam: Normal appearance - Respiratory Exam Respiratory Exam: Clear to Ausculation Bilateral - Cardiovascular Exam Cardiovascular Exam: Tachycardia, Irregular Rhythm, +S1, +S2 - GI/Abdominal Exam GI & Abdominal Exam: Soft. absent: Distended - Extremities Exam Extremities Exam: Normal Capillary Refill Plan - Assessment of Findings&Treatment Plan A-fib w/ RVR and AMS Vitals, Sugars, -Lopressor 2.5 IV ONCE -Metoprolol 25mg PO through PEG ONCE -250 ml NS BOlus -Restart tube Feedings -Transfer to ICU. <Vivian Marcum V - Last Filed: 09/27/18 21:47> SCHOOL GUIDANCE COUNSELOR Nurses Assessment - Vital Signs Vital Signs: Rapid Response Vital Sign Blood Pressure 101/52 Pulse Rate 137 Respiratory Rate 20 Temperature 97.8 F Oxygen Saturation 99 - Vital Signs at end of SCHOOL GUIDANCE COUNSELOR Vital Signs at end of SCHOOL GUIDANCE COUNSELOR: Rapid Response End Vital Sign Blood Pressure 94/45 Pulse Rate 114 Respiratory Rate 20 O2 Sat by Pulse Oximetry 99 Attending/Attestation - Attestation I have personally seen and examined this patient.: Yes I have fully participated in the care of the patient.: Yes I have reviewed all pertinent clinical information, including history, physical exam and plan: Yes Notes (Text): Responded to event by resident. Spoke with PMD and ID."
--- NOTE | 2018-09-24 14:46 | CP.PCM.CON ---
<Santam Cool M - Last Filed: 09/24/18 17:17> History of Present Illness - History of Present Illness History of Present Illness: Critical care consult Note for Dr. Watt. Critical care consult for hypotension refractory to fluid 88 F w/ PMHx COPD, CAD, CABG, HLD, Osteoporotos, Pneumonia, GI bleed, UTI, dementia presented to hospital after being lethargic, poorly responding, elevated blood glucose. Patient was scheduled for cystoscopy today, 09/24; however, it was cancelled due to abnormal EKG. Rapid was called later in day due to hypotension, tachycardia, refractory to fluids. Patient had SBP in 80s. Patient transferred to ICU. Patient at examination was lethargic and minimally response. Unable to obtain ROS due to lethargy. PMHx:Hypertension, hyperlipidemia, CAD, COPD, osteoporosis osteoarthritis recurrent pneumonia GI bleed and duodenal ulcer PSHx: CABG x2, tracheostomy, PEG tube, pacemaker, multiple esophageal dilatation for achalasia cardia Allergies: Iodine, penicillins, clopidogrel, losartan, nitrogylcerin SHx: unable to obtain due to lethargy Review of Systems - Review of Systems Systems not reviewed;Unavailable: Dementia Past Patient History - Infectious Disease Hx of Infectious Diseases: None - Past Medical History & Family History Past Medical History?: Yes - Past Social History Smoking Status: Former Smoker - CARDIAC Hx Cardiac Disorders: Yes Hx Congestive Heart Failure: Yes Hx Hypercholesterolemia: Yes Hx Hypertension: Yes - PULMONARY Hx Chronic Obstructive Pulmonary Disease (COPD): Yes - NEUROLOGICAL Hx Neurological Disorder: No Hx Seizures: No - HEENT Hx HEENT Problems: Yes Hx Cataracts: Yes (2000 Rt.Eye,2009Left Eye) - RENAL Hx Chronic Kidney Disease: No - ENDOCRINE/METABOLIC Hx Diabetes Mellitus Type 2: Yes - HEMATOLOGICAL/ONCOLOGICAL Hx Blood Disorders: No Hx Human Immunodeficiency Virus (HIV): No - INTEGUMENTARY Hx Dermatological Problems: Yes Other/Comment: sore in the sacral area. heel sore - MUSCULOSKELETAL/RHEUMATOLOGICAL Hx Arthritis: Yes Hx Rheumatoid Arthritis: Yes - GASTROINTESTINAL Hx Gastrointestinal Disorders: Yes Hx Colitis: Yes Hx Gastroesophageal Reflux: Yes HX Swallowing Problems: Yes (Achalasia. See HPI) Other/Comment: peg tube - GENITOURINARY/GYNECOLOGICAL Hx Genitourinary Disorders: No Hx Sexually Transmitted Disorders: No - PSYCHIATRIC Hx Substance Use: No - SURGICAL HISTORY Hx Surgeries: Yes Hx Carotid Endarterectomy: Yes (06/13/05) Hx Coronary Artery Bypass Graft: Yes (12/16/1991) Hx Coronary Stent: Yes - ANESTHESIA Hx Anesthesia: Yes Hx Anesthesia Reactions: No Hx Malignant Hyperthermia: No Has any member of the family had a problem w/ anesthesia?: No Meds Allergies/Adverse Reactions: Allergies Allergy/AdvReac Type Severity Reaction Status Date / Time iodine Allergy REDNESS Verified 08/15/18 10:13 Penicillins Allergy ANGIOEDEMA Verified 08/15/18 10:13 clopidogrel [From Plavix] AdvReac HEADACHE Verified 08/15/18 10:13 losartan [From Cozaar] AdvReac DIZZINESS Verified 08/15/18 10:13 nitroglycerin AdvReac DIZZINESS Verified 08/15/18 10:13 - Medications Medications: Current Medications Albuterol/Ipratropium (Duoneb 3 Mg/0.5 Mg (3 Ml) Ud) 3 ml INH RQ6 [facility] Last Admin: 09/24/18 07:30 Dose: 3 ml Aspirin (Aspirin Chewable) 81 mg PO DAILY [facility] Last Admin: 09/24/18 09:19 Dose: Not Given Heparin Sodium (Porcine) (Heparin) 5,000 units SC Q12 [facility] Last Admin: 09/24/18 09:19 Dose: Not Given Fluconazole (Diflucan Iv 100 Mg/50 Ml Ns) 50 mls @ 100 mls/hr IVPB DAILY [facility]; Protocol Ceftazidime/Avibactam 1.25 gm/ (Sodium Chloride) 100 mls @ 50 mls/hr IV Q8H [facility]; Protocol Last Admin: 09/24/18 08:20 Dose: 50 mls/hr Sodium Chloride (Sodium Chloride 0.9%) 1,000 mls @ 75 mls/hr IV .[id number] [facility] Last Admin: 09/24/18 08:20 Dose: 75 mls/hr Sodium Chloride (Sodium Chloride 0.9%) 1,000 mls @ 100 mls/hr IV .Q10H [facility] Insulin Glargine (Lantus) 20 unit SC HS [facility] Last Admin: 09/23/18 21:29 Dose: 20 units Insulin Human Regular (Novolin R) 0 unit SC Q6 [facility]; Protocol Last Admin: 09/24/18 06:22 Dose: Not Given Methylprednisolone (Solu-Medrol) 20 mg IVP DAILY [facility] Last Admin: 09/24/18 09:20 Dose: Not Given Metoprolol Tartrate (Lopressor) 25 mg PO BID [facility] Last Admin: 09/24/18 09:19 Dose: Not Given Pantoprazole Sodium (Protonix Susp) 40 mg PO DAILY [facility] Last Admin: 09/24/18 09:20 Dose: Not Given Rosuvastatin Calcium (Crestor) 5 mg PO HS [facility] Last Admin: 09/23/18 21:31 Dose: 5 mg Physical Exam - Constitutional Appears: Non-toxic, No Acute Distress - Head Exam Head Exam: NORMAL INSPECTION - Eye Exam Eye Exam: Normal appearance - ENT Exam ENT Exam: Mucous Membranes Dry - Respiratory Exam Respiratory Exam: Decreased Breath Sounds, Rales, NORMAL BREATHING PATTERN. absent: Clear to Auscultation Bilateral Additional comments: R > L rales - Cardiovascular Exam Cardiovascular Exam: +S1, +S2, Systolic Murmur - GI/Abdominal Exam GI & Abdominal Exam: Normal Bowel Sounds, Soft Additional comments: PEG tube in site - Neurological Exam Additional comments: sleeping, lethargic - Skin Skin Exam: Dry, Intact, Normal Color, Warm Results - Vital Signs Recent Vital Signs: Last Vital Signs Temp 97.7 F 09/24/18 10:37 Pulse 119 H 09/24/18 14:27 Resp 20 09/24/18 14:27 BP 117/56 L 09/24/18 14:27 Pulse Ox 98 09/24/18 14:27 - Labs Result Diagrams: 09/24/18 08:07 09/24/18 08:07 Labs: Laboratory Results - last 24 hr 09/23/18 09/23/18 09/24/18 17:50 23:44 05:56 WBC RBC Hgb Hct MCV MCH MCHC RDW Plt Count MPV Differential Comment Sodium Potassium Chloride Carbon Dioxide Anion Gap BUN Creatinine Est GFR ( Amer) Est GFR (Non-Af Amer) POC Glucose (mg/dL) 300 H 293 H 149 H Random Glucose Calcium Phosphorus Magnesium Total Bilirubin AST ALT Alkaline Phosphatase Total Protein Albumin Globulin Albumin/Globulin Ratio 09/24/18 09/24/18 09/24/18 08:07 08:07 11:39 WBC 23.4 H D RBC 3.41 L Hgb 10.5 L Hct 32.4 L MCV 95.2 MCH 31.0 MCHC 32.5 L RDW 14.6 H Plt Count 261 MPV 7.1 L Differential Comment Sodium 137 Potassium 5.0 Chloride 95 L Carbon Dioxide 35 H Anion Gap 12 BUN 61 H Creatinine 0.7 Est GFR ( Amer) > 60 Est GFR (Non-Af Amer) > 60 POC Glucose (mg/dL) 144 H Random Glucose 136 H D Calcium 9.8 Phosphorus 4.7 H Magnesium 2.3 Total Bilirubin 0.9 AST 15 ALT 20 Alkaline Phosphatase 52 Total Protein 6.0 L Albumin 3.7 Globulin 2.4 Albumin/Globulin Ratio 1.6 Assessment & Plan - Assessment and Plan (Free Text) Assessment: 88 F w/ hx of UTI, COPD, CABG, presented to ED for lethargy, currently in ICU for hypotension refractory to fluids, likely dehydrated/ uroseptic Plan: Neuro - lethargic, unarousable Cardio - hx of CABG, HTN, CAD - c/w crestor 5 mg PO HS, aspirin 81 mg daily Pulm - hx of COPD - duonebs Q6H - solumedrol 20 mg IVP daily Renal - BUN/Cr: 61/0.7 - hold IV fluids for now GI - peg tube - peg feedings glucerna @40cc/hr - WBC 23.4, afebrile - Urine cultures 09/17: + klebsilla - F/u Dr. TAMI Cordova recviviana - Ceftazidime 1.25gm Q8H - C/w fluconazole - U/C 09/13 + VRE -was treated w/ meropenum and patient had no allergic rxn Heme - H/H 10s/32s - stable Endo - hx of diabetes - C/w glargine 20 units HS - ISS medium - hypoglycemia protocol PPx - DVT: SCDs heparin 5000 units Q8H - GI: protonix 40 mg daily <Christopher Watt S - Last Filed: 09/24/18 18:22> Meds - Medications Medications: Current Medications Albuterol/Ipratropium (Duoneb 3 Mg/0.5 Mg (3 Ml) Ud) 3 ml INH RQ6 [facility] Last Admin: 09/24/18 07:30 Dose: 3 ml Aspirin (Aspirin Chewable) 81 mg PO DAILY [facility] Last Admin: 09/24/18 09:19 Dose: Not Given Dextrose (Dextrose 50% Inj) 0 ml IV STAT PRN; Protocol PRN Reason: Hypoglycemia Protocol Dextrose (Glutose 15) 0 gm PO ONCE PRN; Protocol PRN Reason: Hypoglycemia Protocol Glucagon (Glucagen Diagnostic Kit) 0 mg IM STAT PRN; Protocol PRN Reason: Hypoglycemia Protocol Heparin Sodium (Porcine) (Heparin) 5,000 units SC Q12 [facility] Last Admin: 09/24/18 09:19 Dose: Not Given Fluconazole (Diflucan Iv 100 Mg/50 Ml Ns) 50 mls @ 100 mls/hr IVPB DAILY [facility]; Protocol Ceftazidime/Avibactam 1.25 gm/ (Sodium Chloride) 100 mls @ 50 mls/hr IV Q8H [facility]; Protocol Last Admin: 09/24/18 08:20 Dose: 50 mls/hr Sodium Chloride (Sodium Chloride 0.9%) 1,000 mls @ 75 mls/hr IV .[id number] [facility] Last Admin: 09/24/18 08:20 Dose: 75 mls/hr Sodium Chloride (Sodium Chloride 0.9%) 1,000 mls @ 100 mls/hr IV .Q10H [facility] Dextrose (Dextrose 5% In Water 1000 Ml) 1,000 mls @ 0 mls/hr IV .Q0M PRN; Protocol PRN Reason: Hypoglycemia Protocol Insulin Glargine (Lantus) 20 unit SC HS [facility] Last Admin: 09/23/18 21:29 Dose: 20 units Insulin Human Regular (Novolin R) 0 unit SC Q6 [facility]; Protocol Last Admin: 09/24/18 06:22 Dose: Not Given Methylprednisolone (Solu-Medrol) 20 mg IVP DAILY [facility] Last Admin: 09/24/18 09:20 Dose: Not Given Metoprolol Tartrate (Lopressor) 25 mg PO BID [facility] Last Admin: 09/24/18 09:19 Dose: Not Given Pantoprazole Sodium (Protonix Susp) 40 mg PO DAILY [facility] Last Admin: 09/24/18 09:20 Dose: Not Given Rosuvastatin Calcium (Crestor) 5 mg PO HS [facility] Last Admin: 09/23/18 21:31 Dose: 5 mg Results - Vital Signs Recent Vital Signs: Last Vital Signs Temp 97.6 F 09/24/18 13:15 Pulse 119 H 09/24/18 14:27 Resp 20 02/26/19 14:27 BP 117/56 L 09/24/18 14:27 Pulse Ox 98 09/24/18 14:27 - Labs Result Diagrams: 09/24/18 08:07 09/24/18 08:07 Labs: Laboratory Results - last 24 hr 09/23/18 09/24/18 09/24/18 23:44 05:56 08:07 WBC RBC Hgb Hct MCV MCH MCHC RDW Plt Count MPV Differential Comment Sodium 137 Potassium 5.0 Chloride 95 L Carbon Dioxide 35 H Anion Gap 12 BUN 61 H Creatinine 0.7 Est GFR ( Amer) > 60 Est GFR (Non-Af Amer) > 60 POC Glucose (mg/dL) 293 H 149 H Random Glucose 136 H D Calcium 9.8 Phosphorus 4.7 H Magnesium 2.3 Total Bilirubin 0.9 AST 15 ALT 20 Alkaline Phosphatase 52 Total Protein 6.0 L Albumin 3.7 Globulin 2.4 Albumin/Globulin Ratio 1.6 09/24/18 09/24/18 09/24/18 08:07 11:39 13:58 WBC 23.4 H D RBC 3.41 L Hgb 10.5 L Hct 32.4 L MCV 95.2 MCH 31.0 MCHC 32.5 L RDW 14.6 H Plt Count 261 MPV 7.1 L Differential Comment Sodium Potassium Chloride Carbon Dioxide Anion Gap BUN Creatinine Est GFR ( Amer) Est GFR (Non-Af Amer) POC Glucose (mg/dL) 144 H 171 H Random Glucose Calcium Phosphorus Magnesium Total Bilirubin AST ALT Alkaline Phosphatase Total Protein Albumin Globulin Albumin/Globulin Ratio Attending/Attestation - Attestation I have personally seen and examined this patient.: Yes I have fully participated in the care of the patient.: Yes I have reviewed all pertinent clinical information: Yes Notes (Text): 09/24/18 18:21 Patient seen and examined 88-year-old female transferred to intensive care unit for hypotension and tachycardia Status post fluid resuscitation Continue to monitor in ICU Intake and output Follow-up chest x-ray and ABG
[2018-09-24] MEDS ORDERED: Dextrose 50% SYRINGE Inj (50 ml) IV PRN (16:33)
[2018-09-24] MEDS ORDERED: Glucagon Recombinant 1 mg Inj IM PRN (16:33)
--- NOTE | 2018-09-24 18:45 | RAD ---
Date of service: 09/24/2018 HISTORY: Pneumonia. COMPARISON: 09/15/2018. FINDINGS: LUNGS: Stable interstitial lung disease. No focal/discrete infiltrates. PLEURA: No significant pleural effusion identified, no pneumothorax apparent. CARDIOVASCULAR: Atherosclerotic calcifications identified primarily aortic arch. No radiographic findings to suggest acute or significant cardiovascular disease. Incidental Finding(s): Postoperative changes related to sternotomy. Position/ configuration of pacemaker PICC line tip right axilla. The finding is marked on the study for review. OSSEOUS STRUCTURES: No significant abnormalities. VISUALIZED UPPER ABDOMEN: Normal. OTHER FINDINGS: None. IMPRESSION: Stable interstitial lung disease. No discrete infiltrates. Venous access line/PICC line tip right axillary vein.
--- NOTE | 2018-09-24 20:10 | CP.PCM.PN ---
Subjective - Date & Time of Evaluation Date of Evaluation: 09/24/18 Time of Evaluation: 20:10 - Subjective Subjective: events noted Patient transferred to ICU for hypotension and tachycardia. Patient cystoscopy was canceled as scheduled because of hypotension. patient presently weak/ Nonverbal, but arousable. labs; reviewed Leukocytosis WBC 23.4. URINE CULTURE REPEAT +VE ESBL+KLEIBSIELLA PNEUMONIA/ YEAST S-TO mERREM Objective - Vital Signs/Intake and Output Vital Signs (last 24 hours): Temp Pulse Resp BP Pulse Ox 97.6 F 101 H 20 131/65 100 09/24/18 13:15 09/24/18 19:00 09/24/18 19:00 09/24/18 19:28 09/24/18 19:00 Intake and Output: 09/24/18 09/25/18 18:59 06:59 Intake Total 600 150 Output Total 200 Balance 600 -50 - Medications Medications: Current Medications Albuterol/Ipratropium (Duoneb 3 Mg/0.5 Mg (3 Ml) Ud) 3 ml INH RQ6 [facility] Last Admin: 09/24/18 07:30 Dose: 3 ml Aspirin (Aspirin Chewable) 81 mg PO DAILY [facility] Last Admin: 09/24/18 09:19 Dose: Not Given Dextrose (Dextrose 50% Inj) 0 ml IV STAT PRN; Protocol PRN Reason: Hypoglycemia Protocol Dextrose (Glutose 15) 0 gm PO ONCE PRN; Protocol PRN Reason: Hypoglycemia Protocol Glucagon (Glucagen Diagnostic Kit) 0 mg IM STAT PRN; Protocol PRN Reason: Hypoglycemia Protocol Heparin Sodium (Porcine) (Heparin) 5,000 units SC Q12 [facility] Last Admin: 09/24/18 09:19 Dose: Not Given Fluconazole (Diflucan Iv 100 Mg/50 Ml Ns) 50 mls @ 100 mls/hr IVPB DAILY [facility]; Protocol Ceftazidime/Avibactam 1.25 gm/ (Sodium Chloride) 100 mls @ 50 mls/hr IV Q8H [facility]; Protocol Last Admin: 09/24/18 19:27 Dose: 50 mls/hr Sodium Chloride (Sodium Chloride 0.9%) 1,000 mls @ 75 mls/hr IV .[id number] [facility] Last Admin: 09/24/18 08:20 Dose: 75 mls/hr Sodium Chloride (Sodium Chloride 0.9%) 1,000 mls @ 100 mls/hr IV .Q10H [facility] Dextrose (Dextrose 5% In Water 1000 Ml) 1,000 mls @ 0 mls/hr IV .Q0M PRN; Protocol PRN Reason: Hypoglycemia Protocol Insulin Glargine (Lantus) 20 unit SC HS [facility] Last Admin: 09/23/18 21:29 Dose: 20 units Insulin Human Regular (Novolin R) 0 unit SC Q6 [facility]; Protocol Last Admin: 09/24/18 17:35 Dose: Not Given Methylprednisolone (Solu-Medrol) 20 mg IVP DAILY [facility] Last Admin: 09/24/18 09:20 Dose: Not Given Metoprolol Tartrate (Lopressor) 25 mg PO BID [facility] Last Admin: 09/24/18 19:28 Dose: 25 mg Pantoprazole Sodium (Protonix Susp) 40 mg PO DAILY [facility] Last Admin: 09/24/18 09:20 Dose: Not Given Rosuvastatin Calcium (Crestor) 5 mg PO [facility] Last Admin: 09/23/18 21:31 Dose: 5 mg - Labs Labs: 09/24/18 08:07 09/24/18 08:07 PT 10.6 SECONDS (9.7-12.2) 09/12/18 22:42 INR 1.0 09/12/18 22:42 APTT 25 SECONDS (21-34) 09/12/18 22:42 - Constitutional Appears: No Acute Distress, Confused, Chronically Ill - Head Exam Head Exam: NORMAL INSPECTION - Eye Exam Eye Exam: EOMI, PERRL - ENT Exam ENT Exam: Normal Oropharynx - Neck Exam Neck Exam: Normal Inspection - Respiratory Exam Respiratory Exam: Decreased Breath Sounds, NORMAL BREATHING PATTERN - Cardiovascular Exam Cardiovascular Exam: Tachycardia, REGULAR RHYTHM, +S1, +S2 - GI/Abdominal Exam GI & Abdominal Exam: Soft, Normal Bowel Sounds (+ve PEG) - Extremities Exam Extremities Exam: Normal Capillary Refill. absent: Calf Tenderness, Pedal Edema - Neurological Exam Neurological Exam: Altered, Awake, CN II-XII Intact - Psychiatric Exam Psychiatric exam: Flat Affect - Skin Skin Exam: Normal Color, Warm Assessment and Plan (1) Altered mental status Status: Acute (2) UTI (urinary tract infection) Status: Acute (3) Pneumonia Status: Acute (4) Hypertension Status: Acute (5) Gastrostomy tube in place Status: Acute (6) Skin irritation Status: Acute - Assessment and Plan (Free Text) Plan: CONTINUE IV AVYCAZ 1.25 G EVERY 8 HOURLY 09/23/18 (ALLERGY; PCN. PATIENT HAS TOLERATED iv MERREM ,AND AZACTAM IN THE PAST.) CONTINUE iv DIFLUCAN 100 MG iv PIGGYBACK ONCE A DAY DAILY STARTING IN THE MORNING 09/24/18 ADEQUATE CONTROL OF BLOOD SUGARS (BS 300-400 ) SEPTIC WORKUP ORDERED NOTED. 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 pATIENT ON iv sOLU-mEDROL 20 MG ONCE A DAY NOTED. CASE DISCUSSED WITH STAFF IN ICU.
--- NOTE | 2018-09-24 21:38 | CP.PCM.PN ---
Subjective - Date & Time of Evaluation Date of Evaluation: 09/24/18 Time of Evaluation: 21:37 - Subjective Subjective: Patient is morning supposed to be having the cystoscopy. But the patient is becoming tachycardic. Transferred to ICU. Currently patient is feeling okay. Heart rate is controlled well. Currently receiving her IV fluid as well as feeding back on. Most likely dehydration. Patient also has elevated WBC. Associated with the severe urinary tract infection likely. We will septic workup again. Labs repeated. I spoke to the patient's daughter Objective - Vital Signs/Intake and Output Vital Signs (last 24 hours): Temp Pulse Resp BP Pulse Ox 97.6 F 101 H 20 131/65 100 09/24/18 13:15 09/24/18 19:00 09/24/18 19:00 09/24/18 19:28 09/24/18 19:00 Intake and Output: 09/24/18 09/25/18 18:59 06:59 Intake Total 600 150 Output Total 200 Balance 600 -50 - Medications Medications: Current Medications Albuterol/Ipratropium (Duoneb 3 Mg/0.5 Mg (3 Ml) Ud) 3 ml INH RQ6 [facility] Last Admin: 09/24/18 07:30 Dose: 3 ml Aspirin (Aspirin Chewable) 81 mg PO DAILY [facility] Last Admin: 09/24/18 09:19 Dose: Not Given Dextrose (Dextrose 50% Inj) 0 ml IV STAT PRN; Protocol PRN Reason: Hypoglycemia Protocol Dextrose (Glutose 15) 0 gm PO ONCE PRN; Protocol PRN Reason: Hypoglycemia Protocol Glucagon (Glucagen Diagnostic Kit) 0 mg IM STAT PRN; Protocol PRN Reason: Hypoglycemia Protocol Heparin Sodium (Porcine) (Heparin) 5,000 units SC Q12 [facility] Last Admin: 09/24/18 09:19 Dose: Not Given Fluconazole (Diflucan Iv 100 Mg/50 Ml Ns) 50 mls @ 100 mls/hr IVPB DAILY [facility]; Protocol Ceftazidime/Avibactam 1.25 gm/ (Sodium Chloride) 100 mls @ 50 mls/hr IV Q8H [facility]; Protocol Last Admin: 09/24/18 19:27 Dose: 50 mls/hr Sodium Chloride (Sodium Chloride 0.9%) 1,000 mls @ 75 mls/hr IV .[id number] [facility] Last Admin: 09/24/18 08:20 Dose: 75 mls/hr Sodium Chloride (Sodium Chloride 0.9%) 1,000 mls @ 100 mls/hr IV .Q10H [facility] Dextrose (Dextrose 5% In Water 1000 Ml) 1,000 mls @ 0 mls/hr IV .Q0M PRN; Protocol PRN Reason: Hypoglycemia Protocol Insulin Glargine (Lantus) 20 unit SC HS [facility] Last Admin: 09/23/18 21:29 Dose: 20 units Insulin Human Regular (Novolin R) 0 unit SC Q6 [facility]; Protocol Last Admin: 09/24/18 17:35 Dose: Not Given Methylprednisolone (Solu-Medrol) 20 mg IVP DAILY [facility] Last Admin: 09/24/18 09:20 Dose: Not Given Metoprolol Tartrate (Lopressor) 25 mg PO BID [facility] Last Admin: 09/24/18 19:28 Dose: 25 mg Pantoprazole Sodium (Protonix Susp) 40 mg PO DAILY [facility] Last Admin: 09/24/18 09:20 Dose: Not Given Rosuvastatin Calcium (Crestor) 5 mg PO [facility] Last Admin: 09/23/18 21:31 Dose: 5 mg - Labs Labs: 09/24/18 08:07 09/24/18 08:07 PT 10.6 SECONDS (9.7-12.2) 09/12/18 22:42 INR 1.0 09/12/18 22:42 APTT 25 SECONDS (21-34) 09/12/18 22:42
[2018-09-24] MEDS: (Lantus) Insulin Glargine, Recombinant SC SCH (22:30)
[2018-09-24] MEDS: Fluconazole IV 100mg/50 ml NS 50 ML IVPB SCH (23:21)
[2018-09-25] MEDS: (Novolin R) Insulin Human Regular 100 units/ml vial SC SCH ×5 (00:49→23:07)
[2018-09-25] MEDS: Albuterol-Ipratrop 3 mg / 0.5 (3 ml) UD INH SCH ×4 (01:44→20:12)
[2018-09-25] MEDS ORDERED: HYDROmorphone 1 mg/ml ISec IVP STA (01:54)
[2018-09-25 07:42] LABS: BASO % 0.3 % (0.0-2.0); EOS # 0.3 K/uL (0.0-0.7); EOS % 2.1 % (0.0-4.0); LYMPH # 2.3 K/uL (1.0-4.3); LYMPH % 13.3 % (20.0-40.0); MEAN CELL VOLUME 95.4 fL (81.0-99.0); MEAN CORPUSCULAR HEMOGLOBIN 31.3 pg (27.0-31.0); MEAN CORPUSCULAR HGB CONC 32.8 g/dL (33.0-37.0); MEAN PLATELET VOLUME 7.3 fL (7.2-11.7); MONO # 0.9 K/uL (0.0-0.8); MONO % 5.4 % (0.0-10.0); NEUT # 13.4 K/uL (1.8-7.0); NEUT % 78.9 % (50.0-75.0); NRBC % 0.1 % (0.0-2.0); RBC 2.56 Mil/uL (3.80-5.20); RED CELL DISTRIBUTION WIDTH 15.2 % (11.5-14.5)
--- NOTE | 2018-09-25 07:50 | CP.CCUPN ---
<Christopher Watt S - Last Filed: 09/25/18 17:45> CCU Subjective - Physician Review Critical Care Time Spent (in minutes): 35 CCU Objective - Vital Signs / Intake & Output Vital Signs (Last 4 hours): Vital Signs Pulse Resp BP Pulse Ox 09/25/18 17:10 87 18 90/30 L 100 09/25/18 17:00 87 20 100 09/25/18 16:50 90 23 99 09/25/18 16:10 84 21 131/48 L 100 09/25/18 16:00 78 17 100 09/25/18 15:53 84 17 126/49 L 100 09/25/18 15:10 75 17 85/36 L 100 09/25/18 14:10 95 H 25 H 148/58 L 100 09/25/18 14:09 98 H 26 H 100 09/25/18 14:00 91 H 24 99 Intake and Output (Last 8hrs): Intake & Output 09/25/18 09/25/18 09/25/18 06:59 14:59 22:59 Intake Total 420 720 120 Output Total 400 0 Balance 20 720 120 Weight 100 lb 4.8 oz Intake: Intake, IV Amount 100 200 IVONE midline 100 200 Tube Feeding 320 320 120 Other 200 Output: Urine 400 Urine, Voided 400 Emesis 0 0 Other: # Bowel Movements 1 1 - Medications Active Medications: Active Medications Generic Name Dose Route Start Last Admin Trade Name Freq PRN Reason Stop Dose Admin Albuterol/Ipratropium 3 ml 09/13/18 12:15 09/25/18 13:18 Duoneb 3 Mg/0.5 Mg (3 Ml) Ud INH 3 ml RQ6 JUDY Administration Aspirin 81 mg 09/14/18 10:00 09/25/18 09:40 Aspirin Chewable PO 81 mg DAILY JUDY Administration Dextrose 0 ml 09/24/18 16:33 Dextrose 50% Inj IV STAT PRN Hypoglycemia Protocol Protocol Dextrose 0 gm 09/24/18 16:33 Glutose 15 PO ONCE PRN Hypoglycemia Protocol Protocol Diltiazem HCl 30 mg 09/24/18 22:00 09/25/18 14:14 Cardizem PO 30 mg QID JUDY Administration Glucagon 0 mg 09/24/18 16:33 Glucagen Diagnostic Kit IM STAT PRN Hypoglycemia Protocol Protocol Heparin Sodium (Porcine) 5,000 units 09/22/18 22:00 09/25/18 09:54 Heparin SC 5,000 units Q12 JUDY Administration Fluconazole 50 mls @ 100 mls/hr 09/24/18 10:00 09/25/18 09:41 Diflucan Iv 100 Mg/50 Ml Ns IVPB 100 mls/hr DAILY JUDY Administration Protocol Sodium Chloride 1,000 mls @ 75 mls/hr 09/24/18 07:30 09/24/18 08:20 Sodium Chloride 0.9% IV 75 mls/hr .[id number] JUDY Administration Sodium Chloride 1,000 mls @ 100 mls/hr 09/24/18 12:30 09/24/18 23:23 Sodium Chloride 0.9% IV Not Given .Q10H JUDY Dextrose 1,000 mls @ 0 mls/hr 09/24/18 16:33 Dextrose 5% In Water 1000 Ml IV .Q0M PRN Hypoglycemia Protocol Protocol Per Protocol Ceftazidime/Avibactam 1.25 gm/ 100 mls @ 50 mls/hr 09/25/18 03:20 09/25/18 11:04 Sodium Chloride IV 50 mls/hr Q8H JUDY Administration Protocol Insulin Glargine 20 unit 09/13/18 22:00 09/24/18 22:30 Lantus SC 20 units HS JUDY Administration Insulin Human Regular 0 unit 09/13/18 12:00 09/25/18 12:06 Novolin R SC 2 unit Q6 JUDY Administration Protocol Methylprednisolone 20 mg 09/24/18 10:00 09/25/18 09:41 Solu-Medrol IVP 20 mg DAILY JUDY Administration Metoprolol Tartrate 25 mg 09/13/18 18:00 09/25/18 11:04 Lopressor PO 25 mg BID JUDY Administration Pantoprazole Sodium 40 mg 09/18/18 10:00 09/25/18 09:40 Protonix Susp PO 40 mg DAILY JUDY Administration Rosuvastatin Calcium 5 mg 09/13/18 22:00 09/24/18 22:30 Crestor PO 5 mg HS JUDY Administration - Patient Studies Lab Studies: Lab Studies 09/25/18 09/25/18 Range/Units 07:27 07:27 WBC 17.0 H (4.8-10.8) K/uL RBC 2.56 L (3.80-5.20) Mil/uL Hgb 8.0 L D (11.0-16.0) g/dL Hct 24.4 L (34.0-47.0) % MCV 95.4 (81.0-99.0) fL MCH 31.3 H (27.0-31.0) pg MCHC 32.8 L (33.0-37.0) g/dL RDW 15.2 H (11.5-14.5) % Plt Count 216 (130-400) K/uL MPV 7.3 (7.2-11.7) fL Neut % (Auto) 78.9 H (50.0-75.0) % Lymph % (Auto) 13.3 L (20.0-40.0) % [place] % (Auto) 5.4 (0.0-10.0) % Eos % (Auto) 2.1 (0.0-4.0) % Baso % (Auto) 0.3 (0.0-2.0) % Neut # (Auto) 13.4 H (1.8-7.0) K/uL Lymph # (Auto) 2.3 (1.0-4.3) K/uL [place] # (Auto) 0.9 H (0.0-0.8) K/uL Eos # (Auto) 0.3 (0.0-0.7) K/uL Baso # (Auto) 0.0 (0.0-0.2) K/uL Sodium 135 (132-148) mmol/L Potassium 3.5 L (3.6-5.2) mmol/L Chloride 100 (98-107) mmol/L Carbon Dioxide 29 (22-30) mmol/L Anion Gap 10 (10-20) BUN 43 H (7-17) mg/dL Creatinine 0.5 L (0.7-1.2) mg/dL Est GFR ( Amer) > 60 Est GFR (Non-Af Amer) > 60 Random Glucose 93 D (65-105) mg/dL Calcium 9.2 (8.6-10.4) mg/dl Phosphorus 3.3 (2.5-4.5) mg/dL Magnesium 2.1 (1.6-2.3) mg/dL Total Bilirubin 0.5 (0.2-1.3) mg/dL AST 17 (14-36) U/L ALT 23 (9-52) U/L Alkaline Phosphatase 57 (38-126) U/L Total Protein 4.7 L (6.3-8.3) g/dL Albumin 2.9 L D (3.5-5.0) g/dL Globulin 1.8 L (2.2-3.9) gm/dL Albumin/Globulin Ratio 1.6 (1.0-2.1) Laboratory Results - last 24 hr 09/25/18 09/25/18 07:27 07:27 WBC 17.0 H RBC 2.56 L Hgb 8.0 L D Hct 24.4 L MCV 95.4 MCH 31.3 H MCHC 32.8 L RDW 15.2 H Plt Count 216 MPV 7.3 Neut % (Auto) 78.9 H Lymph % (Auto) 13.3 L [place] % (Auto) 5.4 Eos % (Auto) 2.1 Baso % (Auto) 0.3 Neut # (Auto) 13.4 H Lymph # (Auto) 2.3 [place] # (Auto) 0.9 H Eos # (Auto) 0.3 Baso # (Auto) 0.0 Sodium 135 Potassium 3.5 L Chloride 100 Carbon Dioxide 29 Anion Gap 10 BUN 43 H Creatinine 0.5 L Est GFR ( Amer) > 60 Est GFR (Non-Af Amer) > 60 Random Glucose 93 D Calcium 9.2 Phosphorus 3.3 Magnesium 2.1 Total Bilirubin 0.5 AST 17 ALT 23 Alkaline Phosphatase 57 Total Protein 4.7 L Albumin 2.9 L D Globulin 1.8 L Albumin/Globulin Ratio 1.6 Radiology Impressions: Radiology Impressions Chest X-Ray 09/24/18 13:20 IMPRESSION: Stable interstitial lung disease. No discrete infiltrates. Venous access line/PICC line tip right axillary vein. Abdomen X-Ray 09/24/18 13:23 IMPRESSION: Nonspecific nonobstructive bowel gas pattern. A PEG tube overlies the left mid abdomen. Chest X-Ray 09/25/18 06:00 Impression: Right-sided catheter extending to the mid right axilla which may represent a mid axillary line. Clinical correlation. Moderate venous congestion. Consolidative opacification of the left infrahilar region extending to the left lung base. Additional milder consolidative opacification at the lateral aspect of the right lower lung zone. Small left pleural effusion. Moderate venous congestion. Bilateral hilar prominence. Biapical pleural thickening with upper lobe granulomatous changes. Atherosclerotic calcification at the aortic knob. Tortuous ectatic aorta. Cardiomegaly. Left-sided pacemaker. Degenerative changes in the spine and shoulders. Status post median sternotomy. Surgical clips in the left upper abdomen. Attending/Attestation - Attestation I have personally seen and examined this patient.: Yes I have fully participated in the care of the patient.: Yes I have reviewed all pertinent clinical information: Yes Notes (Text): 09/25/18 17:45 Patient seen and examined Clinically improved Continue present treatment Assessment and plan as per resident note Stable for transfer to floor Case discussed with daughter <Satnam Cool - Last Filed: 09/25/18 20:49> CCU Subjective - Physician Review Subjective (Free Text): Critical care progress note for Dr. Watt. Patient seen and examined at bedside. No acute events overnight. Patient still is minimally responsive. Unable to obtain ROS due to patient being weak. Nonverbal, but arousable. 09/25/18 20:42 CCU Objective - Vital Signs / Intake & Output Intake and Output (Last 8hrs): Intake & Output 09/24/18 09/25/18 09/25/18 22:59 06:59 14:59 Intake Total 150 Output Total 200 Balance -50 Intake: Oral 150 Output: Urine 200 Urine, Voided 200 - Physical Exam Physical Exam Limitations: Positive for: Altered Mental Status Pupils: Positive for: PERRL Mouth: Positive for: Moist Mucous Membranes Respiratory/Chest: Positive for: Good Air Exchange, Rales. Negative for: Respiratory Distress, Accessory Muscle Use Cardiovascular: Positive for: Normal S1, S2. Negative for: Muffled Abdomen: Positive for: Normal Bowel Sounds. Negative for: Tenderness, Distention Upper Extremity: Negative for: Cyanosis, Edema Lower Extremity: Negative for: Edema, Cyanosis Skin: Positive for: Warm, Dry, Rashes, Normal Color Psychiatric: Positive for: Alert - Medications Active Medications: Active Medications Generic Name Dose Route Start Last Admin Trade Name Freq PRN Reason Stop Dose Admin Albuterol/Ipratropium 3 ml 09/13/18 12:15 09/25/18 07:45 Duoneb 3 Mg/0.5 Mg (3 Ml) Ud INH 3 ml RQ6 JUDY Administration Aspirin 81 mg 09/14/18 10:00 09/24/18 09:19 Aspirin Chewable PO Not Given DAILY JUDY Dextrose 0 ml 09/24/18 16:33 Dextrose 50% Inj IV STAT PRN Hypoglycemia Protocol Protocol Dextrose 0 gm 09/24/18 16:33 Glutose 15 PO ONCE PRN Hypoglycemia Protocol Protocol Diltiazem HCl 30 mg 09/24/18 22:00 09/24/18 22:30 Cardizem PO 30 mg QID JUDY Administration Glucagon 0 mg 09/24/18 16:33 Glucagen Diagnostic Kit IM STAT PRN Hypoglycemia Protocol Protocol Heparin Sodium (Porcine) 5,000 units 09/22/18 22:00 09/24/18 22:30 Heparin SC 5,000 units Q12 JUDY Administration Fluconazole 50 mls @ 100 mls/hr 09/24/18 10:00 09/24/18 23:21 Diflucan Iv 100 Mg/50 Ml Ns IVPB Not Given DAILY JUDY Protocol Sodium Chloride 1,000 mls @ 75 mls/hr 09/24/18 07:30 09/24/18 08:20 Sodium Chloride 0.9% IV 75 mls/hr .[id number] JUDY Administration Sodium Chloride 1,000 mls @ 100 mls/hr 09/24/18 12:30 09/24/18 23:23 Sodium Chloride 0.9% IV Not Given .Q10H JUDY Dextrose 1,000 mls @ 0 mls/hr 09/24/18 16:33 Dextrose 5% In Water 1000 Ml IV .Q0M PRN Hypoglycemia Protocol Protocol Per Protocol Ceftazidime/Avibactam 1.25 gm/ 100 mls @ 50 mls/hr 09/25/18 03:20 09/25/18 03:30 Sodium Chloride IV 50 mls/hr Q8H JUDY Administration Protocol Insulin Glargine 20 unit 09/13/18 22:00 09/24/18 22:30 Lantus SC 20 units HS JUDY Administration Insulin Human Regular 0 unit 09/13/18 12:00 09/25/18 06:15 Novolin R SC Not Given Q6 JUDY Protocol Methylprednisolone 20 mg 09/24/18 10:00 09/24/18 09:20 Solu-Medrol IVP Not Given DAILY JUDY Metoprolol Tartrate 25 mg 09/13/18 18:00 09/24/18 19:28 Lopressor PO 25 mg BID JUDY Administration Pantoprazole Sodium 40 mg 09/18/18 10:00 09/24/18 09:20 Protonix Susp PO Not Given DAILY JUDY Rosuvastatin Calcium 5 mg 09/13/18 22:00 09/24/18 22:30 Crestor PO 5 mg HS JUDY Administration - Patient Studies Lab Studies: Lab Studies 09/25/18 09/24/18 09/24/18 Range/Units 07:27 13:58 11:39 WBC 17.0 H (4.8-10.8) K/uL RBC 2.56 L (3.80-5.20) Mil/uL Hgb 8.0 L D (11.0-16.0) g/dL Hct 24.4 L (34.0-47.0) % MCV 95.4 (81.0-99.0) fL MCH 31.3 H (27.0-31.0) pg MCHC 32.8 L (33.0-37.0) g/dL RDW 15.2 H (11.5-14.5) % Plt Count 216 (130-400) K/uL MPV 7.3 (7.2-11.7) fL Neut % (Auto) 78.9 H (50.0-75.0) % Lymph % (Auto) 13.3 L (20.0-40.0) % [place] % (Auto) 5.4 (0.0-10.0) % Eos % (Auto) 2.1 (0.0-4.0) % Baso % (Auto) 0.3 (0.0-2.0) % Neut # (Auto) 13.4 H (1.8-7.0) K/uL Lymph # (Auto) 2.3 (1.0-4.3) K/uL [place] # (Auto) 0.9 H (0.0-0.8) K/uL Eos # (Auto) 0.3 (0.0-0.7) K/uL Baso # (Auto) 0.0 (0.0-0.2) K/uL Differential Comment Sodium (132-148) mmol/L Potassium (3.6-5.2) mmol/L Chloride (98-107) mmol/L Carbon Dioxide (22-30) mmol/L Anion Gap (10-20) BUN (7-17) mg/dL Creatinine (0.7-1.2) mg/dL Est GFR ( Amer) Est GFR (Non-Af Amer) POC Glucose (mg/dL) 171 H 144 H (65-110) mg/dL Random Glucose (65-105) mg/dL Calcium (8.6-10.4) mg/dl Phosphorus (2.5-4.5) mg/dL Magnesium (1.6-2.3) mg/dL Total Bilirubin (0.2-1.3) mg/dL AST (14-36) U/L ALT (9-52) U/L Alkaline Phosphatase (38-126) U/L Total Protein (6.3-8.3) g/dL Albumin (3.5-5.0) g/dL Globulin (2.2-3.9) gm/dL Albumin/Globulin Ratio (1.0-2.1) 09/24/18 09/24/18 Range/Units 08:07 08:07 WBC 23.4 H D (4.8-10.8) K/uL RBC 3.41 L (3.80-5.20) Mil/uL Hgb 10.5 L (11.0-16.0) g/dL Hct 32.4 L (34.0-47.0) % MCV 95.2 (81.0-99.0) fL MCH 31.0 (27.0-31.0) pg MCHC 32.5 L (33.0-37.0) g/dL RDW 14.6 H (11.5-14.5) % Plt Count 261 (130-400) K/uL MPV 7.1 L (7.2-11.7) fL Neut % (Auto) (50.0-75.0) % Lymph % (Auto) (20.0-40.0) % [place] % (Auto) (0.0-10.0) % Eos % (Auto) (0.0-4.0) % Baso % (Auto) (0.0-2.0) % Neut # (Auto) (1.8-7.0) K/uL Lymph # (Auto) (1.0-4.3) K/uL [place] # (Auto) (0.0-0.8) K/uL Eos # (Auto) (0.0-0.7) K/uL Baso # (Auto) (0.0-0.2) K/uL Differential Comment Sodium 137 (132-148) mmol/L Potassium 5.0 (3.6-5.2) mmol/L Chloride 95 L (98-107) mmol/L Carbon Dioxide 35 H (22-30) mmol/L Anion Gap 12 (10-20) BUN 61 H (7-17) mg/dL Creatinine 0.7 (0.7-1.2) mg/dL Est GFR ( Amer) > 60 Est GFR (Non-Af Amer) > 60 POC Glucose (mg/dL) (65-110) mg/dL Random Glucose 136 H D (65-105) mg/dL Calcium 9.8 (8.6-10.4) mg/dl Phosphorus 4.7 H (2.5-4.5) mg/dL Magnesium 2.3 (1.6-2.3) mg/dL Total Bilirubin 0.9 (0.2-1.3) mg/dL AST 15 (14-36) U/L ALT 20 (9-52) U/L Alkaline Phosphatase 52 (38-126) U/L Total Protein 6.0 L (6.3-8.3) g/dL Albumin 3.7 (3.5-5.0) g/dL Globulin 2.4 (2.2-3.9) gm/dL Albumin/Globulin Ratio 1.6 (1.0-2.1) Laboratory Results - last 24 hr 09/24/18 09/24/18 09/24/18 08:07 08:07 11:39 WBC 23.4 H D RBC 3.41 L Hgb 10.5 L Hct 32.4 L MCV 95.2 MCH 31.0 MCHC 32.5 L RDW 14.6 H Plt Count 261 MPV 7.1 L Neut % (Auto) Lymph % (Auto) [place] % (Auto) Eos % (Auto) Baso % (Auto) Neut # (Auto) Lymph # (Auto) [place] # (Auto) Eos # (Auto) Baso # (Auto) Differential Comment Sodium 137 Potassium 5.0 Chloride 95 L Carbon Dioxide 35 H Anion Gap 12 BUN 61 H Creatinine 0.7 Est GFR ( Amer) > 60 Est GFR (Non-Af Amer) > 60 POC Glucose (mg/dL) 144 H Random Glucose 136 H D Calcium 9.8 Phosphorus 4.7 H Magnesium 2.3 Total Bilirubin 0.9 AST 15 ALT 20 Alkaline Phosphatase 52 Total Protein 6.0 L Albumin 3.7 Globulin 2.4 Albumin/Globulin Ratio 1.6 09/24/18 09/25/18 13:58 07:27 WBC 17.0 H RBC 2.56 L Hgb 8.0 L D Hct 24.4 L MCV 95.4 MCH 31.3 H MCHC 32.8 L RDW 15.2 H Plt Count 216 MPV 7.3 Neut % (Auto) 78.9 H Lymph % (Auto) 13.3 L [place] % (Auto) 5.4 Eos % (Auto) 2.1 Baso % (Auto) 0.3 Neut # (Auto) 13.4 H Lymph # (Auto) 2.3 [place] # (Auto) 0.9 H Eos # (Auto) 0.3 Baso # (Auto) 0.0 Differential Comment Sodium Potassium Chloride Carbon Dioxide Anion Gap BUN Creatinine Est GFR ( Amer) Est GFR (Non-Af Amer) POC Glucose (mg/dL) 171 H Random Glucose Calcium Phosphorus Magnesium Total Bilirubin AST ALT Alkaline Phosphatase Total Protein Albumin Globulin Albumin/Globulin Ratio Radiology Impressions: Radiology Impressions Chest X-Ray 09/24/18 13:20 IMPRESSION: Stable interstitial lung disease. No discrete infiltrates. Venous access line/PICC line tip right axillary vein. EKG/Cardiology Studies: Cardiology / EKG Studies 09/24/18 10:37 EKG [ELECTROCARDIOGRAM] Stat Comment: Mode Of Transportation: Reason For Exam: change rhytm Isolation: Contact Fingerstick Blood Sugar Results: 97 Review of Systems - Review of Systems Systems not reviewed;Unavailable: Altered Mental Status Critical Care Progress Note - Prophylaxis GI Prophylaxis GI: PPI - Prophylaxis DVT Prophylaxis DVT: Heparin SQ Assessment/Plan - Assessment and Plan (Free Text) Assessment: 88 F w/ hx of UTI, COPD, CABG, presented to ED for lethargy, currently in ICU for hypotension refractory to fluids, likely dehydrated/ uroseptic Plan: Neuro - lethargic, unarousable Cardio - hx of CABG, HTN, CAD - c/w crestor 5 mg PO HS, aspirin 81 mg daily Pulm - hx of COPD - duonebs Q6H - solumedrol 20 mg IVP daily Renal - BUN/Cr: 65/0.8 (max) - trending down now 43/0.5 - hold IV fluids for now GI - peg tube - peg feedings glucerna @40cc/hr - WBC 23.4 (max), now downtrending to 17; remains afebrile - Urine cultures 09/17: + klebsilla - F/u Dr. TAMI Cordova recviviana - Ceftazidime 1.25gm Q8H - C/w fluconazole - U/C 09/13 + VRE -was treated w/ meropenum and patient had no allergic rxn Heme - H/H 10s/32s - stable Endo - hx of diabetes - C/w glargine 20 units HS - ISS medium - hypoglycemia protocol PPx - DVT: SCDs heparin 5000 units Q8H - GI: protonix 40 mg daily
[2018-09-25 08:02] LABS: ALB/GLOB RATIO 1.6 (1.0-2.1); ALBUMIN 2.9 g/dL (3.5-5.0); ALT/SGPT 23 U/L (9-52); AST/SGOT 17 U/L (14-36); BLOOD UREA NITROGEN 43 mg/dL (7-17); CALCIUM 9.2 mg/dl (8.6-10.4); GFR NON-AFRICAN AMERICAN > 60
[2018-09-25] MEDS ORDERED: Potassium Chloride 20 mEq/15 ml LIQ UD PO ONE (08:32)
[2018-09-25] MEDS: Pantoprazole 40 mg Susp UD PO SCH (09:40)
[2018-09-25] MEDS: Fluconazole IV 100mg/50 ml NS 50 ML IVPB SCH (09:41)
[2018-09-25] MEDS: MethylPREDNISolone 40 mg Vial IVP SCH (09:41)
--- NOTE | 2018-09-25 09:49 | RAD ---
Chest x-ray single frontal view History: Congestive heart failure. COMPARISON: 09/24/2018 Findings: Right-sided catheter extending to the mid right axilla which may represent a mid axillary line. Clinical correlation. Moderate venous congestion. Consolidative opacification of the left infrahilar region extending to the left lung base. Additional milder consolidative opacification at the lateral aspect of the right lower lung zone. Small left pleural effusion. Moderate venous congestion. Bilateral hilar prominence. Biapical pleural thickening with upper lobe granulomatous changes. Atherosclerotic calcification at the aortic knob. Tortuous ectatic aorta. Cardiomegaly. Left-sided pacemaker. Degenerative changes in the spine and shoulders. Status post median sternotomy. Surgical clips in the left upper abdomen. Impression: Right-sided catheter extending to the mid right axilla which may represent a mid axillary line. Clinical correlation. Moderate venous congestion. Consolidative opacification of the left infrahilar region extending to the left lung base. Additional milder consolidative opacification at the lateral aspect of the right lower lung zone. Small left pleural effusion. Moderate venous congestion. Bilateral hilar prominence. Biapical pleural thickening with upper lobe granulomatous changes. Atherosclerotic calcification at the aortic knob. Tortuous ectatic aorta. Cardiomegaly. Left-sided pacemaker. Degenerative changes in the spine and shoulders. Status post median sternotomy. Surgical clips in the left upper abdomen.
--- NOTE | 2018-09-25 12:10 | CARD ---
APPROVED REPORT Date of service: 09/24/2018 EKG Measurement Heart [id number] <Conclusion> Atrial fibrillation with rvr,diffusse st t changes. Right bundle branch block Abnormal ECG
--- NOTE | 2018-09-25 14:03 | RAD ---
Date of service: 09/24/2018 HISTORY: UTI COMPARISON: CT abdomen and pelvis from 09/17/2018 FINDINGS: BOWEL: A PEG tube overlies the left mid abdomen. The bowel gas pattern is nonspecific and nonobstructive. 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 OTHER FINDINGS: None. IMPRESSION: Nonspecific nonobstructive bowel gas pattern. A PEG tube overlies the left mid abdomen.
--- NOTE | 2018-09-25 18:09 | PCM.URO ---
Urology Progress Note - General General: No Complaints (LETHARGIC) - Subjective Abdominal Pain: No Flank Pain: No Nausea: No Vomiting: No Voiding Well: No (INCONTINENT) Hematuria: No Stone Passed: No Dsypnea: No Chest Pain: No - Objective Lab Results Last 24 Hours: Laboratory Results - last 24 hr 09/25/18 09/25/18 07:27 07:27 WBC 17.0 H RBC 2.56 L Hgb 8.0 L D Hct 24.4 L MCV 95.4 MCH 31.3 H MCHC 32.8 L RDW 15.2 H Plt Count 216 MPV 7.3 Neut % (Auto) 78.9 H Lymph % (Auto) 13.3 L [place] % (Auto) 5.4 Eos % (Auto) 2.1 Baso % (Auto) 0.3 Neut # (Auto) 13.4 H Lymph # (Auto) 2.3 [place] # (Auto) 0.9 H Eos # (Auto) 0.3 Baso # (Auto) 0.0 Sodium 135 Potassium 3.5 L Chloride 100 Carbon Dioxide 29 Anion Gap 10 BUN 43 H Creatinine 0.5 L Est GFR ( Amer) > 60 Est GFR (Non-Af Amer) > 60 Random Glucose 93 D Calcium 9.2 Phosphorus 3.3 Magnesium 2.1 Total Bilirubin 0.5 AST 17 ALT 23 Alkaline Phosphatase 57 Total Protein 4.7 L Albumin 2.9 L D Globulin 1.8 L Albumin/Globulin Ratio 1.6 Intake & Output: Intake & Output 09/24/18 09/25/18 09/25/18 18:59 06:59 18:59 Intake Total 600 790 840 Output Total 600 0 Balance 600 190 840 Weight 100 lb 4.8 oz Intake: IV 600 Intake, IV Amount 100 200 IVONE midline 100 200 Oral 0 150 Tube Feeding 440 440 Other 100 200 Output: Urine 600 Urine, Voided 600 Emesis 0 0 Other: # Bowel Movements 1 1 Vital Signs: Vital Signs - 24 hr 09/24/18 09/24/18 09/24/18 19:00 19:28 20:00 Temperature 97.9 F Pulse Rate 101 H 95 H Respiratory 20 19 Rate Blood Pressure 131/65 131/65 131/65 O2 Sat by Pulse 100 99 Oximetry 09/24/18 09/24/18 09/24/18 21:00 22:00 23:00 Temperature Pulse Rate 98 H 108 H 104 H Respiratory 20 14 30 H Rate Blood Pressure 147/52 L 162/54 H 147/57 L O2 Sat by Pulse 99 100 100 Oximetry 09/25/18 09/25/18 09/25/18 00:00 01:00 02:00 Temperature 98.5 F Pulse Rate 106 H 89 101 H Respiratory 21 30 H 32 H Rate Blood Pressure 135/56 L 119/54 L 118/47 L O2 Sat by Pulse 100 99 99 Oximetry 09/25/18 09/25/18 09/25/18 02:10 02:20 02:30 Temperature Pulse Rate 98 H 109 H 100 H Respiratory 27 H 27 H 35 H Rate Blood Pressure O2 Sat by Pulse 98 98 100 Oximetry 09/25/18 09/25/18 09/25/18 02:40 02:50 03:00 Temperature Pulse Rate 97 H 101 H 106 H Respiratory 22 13 15 Rate Blood Pressure 116/30 L O2 Sat by Pulse 100 100 99 Oximetry 09/25/18 09/25/18 09/25/18 03:03 03:10 03:20 Temperature Pulse Rate 110 H 108 H 100 H Respiratory 22 17 36 H Rate Blood Pressure 132/29 L O2 Sat by Pulse 98 100 100 Oximetry 09/25/18 09/25/18 09/25/18 03:30 03:40 03:50 Temperature Pulse Rate 103 H 97 H 108 H Respiratory 44 H 21 23 Rate Blood Pressure O2 Sat by Pulse 100 100 100 Oximetry 09/25/18 09/25/18 09/25/18 04:00 04:03 04:10 Temperature 97.9 F Pulse Rate 97 H 97 H 94 H Respiratory 19 22 21 Rate Blood Pressure 132/29 L 102/43 L O2 Sat by Pulse 99 100 100 Oximetry 09/25/18 09/25/18 09/25/18 04:20 04:30 04:40 Temperature Pulse Rate 106 H 93 H 101 H Respiratory 20 20 29 H Rate Blood Pressure O2 Sat by Pulse 100 100 100 Oximetry 09/25/18 09/25/18 09/25/18 04:50 05:00 05:03 Temperature Pulse Rate 101 H 97 H 97 H Respiratory 21 18 19 Rate Blood Pressure 102/43 L 108/50 L O2 Sat by Pulse 99 100 100 Oximetry 09/25/18 09/25/18 09/25/18 05:10 05:20 05:30 Temperature Pulse Rate 94 H 110 H 102 H Respiratory 18 39 H 25 H Rate Blood Pressure O2 Sat by Pulse 100 100 100 Oximetry 09/25/18 09/25/18 09/25/18 05:40 05:50 06:00 Temperature Pulse Rate 95 H 97 H 108 H Respiratory 19 19 22 Rate Blood Pressure 108/50 L O2 Sat by Pulse 96 100 99 Oximetry 09/25/18 09/25/18 09/25/18 06:03 06:10 06:20 Temperature Pulse Rate 101 H 96 H 98 H Respiratory 31 H 23 22 Rate Blood Pressure 104/56 L O2 Sat by Pulse 99 100 100 Oximetry 09/25/18 09/25/18 09/25/18 06:30 06:40 06:50 Temperature Pulse Rate 109 H 115 H 119 H Respiratory 16 28 H 44 H Rate Blood Pressure O2 Sat by Pulse 97 100 100 Oximetry 09/25/18 09/25/18 09/25/18 07:00 07:04 07:10 Temperature Pulse Rate 114 H 110 H 107 H Respiratory 36 H 38 H Rate Blood Pressure 161/71 H O2 Sat by Pulse 97 98 100 Oximetry 09/25/18 09/25/18 09/25/18 07:20 07:30 07:40 Temperature Pulse Rate 105 H 102 H 104 H Respiratory 17 20 22 Rate Blood Pressure O2 Sat by Pulse 100 100 99 Oximetry 09/25/18 09/25/18 09/25/18 07:50 07:51 08:00 Temperature 98.1 F Pulse Rate 112 H 107 H 106 H Respiratory 23 20 22 Rate Blood Pressure 116/46 L O2 Sat by Pulse 94 L 99 98 Oximetry 09/25/18 09/25/18 09/25/18 08:02 08:03 08:10 Temperature Pulse Rate 105 H 112 H 111 H Respiratory 23 24 22 Rate Blood Pressure 125/49 L O2 Sat by Pulse 99 97 95 Oximetry 09/25/18 09/25/18 09/25/18 08:20 08:30 08:40 Temperature Pulse Rate 112 H 116 H 113 H Respiratory 22 29 H 21 Rate Blood Pressure O2 Sat by Pulse 97 99 100 Oximetry 09/25/18 09/25/18 09/25/18 08:50 09:00 09:03 Temperature Pulse Rate 104 H 108 H 102 H Respiratory 19 20 39 H Rate Blood Pressure 108/48 L O2 Sat by Pulse 100 98 99 Oximetry 09/25/18 09/25/18 09/25/18 09:10 09:20 09:30 Temperature Pulse Rate 100 H 94 H 101 H Respiratory 22 18 20 Rate Blood Pressure O2 Sat by Pulse 100 100 100 Oximetry 09/25/18 09/25/18 09/25/18 09:40 09:50 10:00 Temperature Pulse Rate 97 H 107 H 93 H Respiratory 16 21 19 Rate Blood Pressure O2 Sat by Pulse 100 99 100 Oximetry 09/25/18 09/25/18 09/25/18 10:03 10:40 10:50 Temperature Pulse Rate 95 H 85 88 Respiratory 20 17 18 Rate Blood Pressure 122/53 L O2 Sat by Pulse 100 100 100 Oximetry 09/25/18 09/25/18 09/25/18 11:00 11:03 11:04 Temperature Pulse Rate 88 93 H Respiratory 21 22 Rate Blood Pressure 119/58 L 119/58 L O2 Sat by Pulse 100 100 Oximetry 09/25/18 09/25/18 09/25/18 12:03 12:06 12:10 Temperature Pulse Rate 71 73 73 Respiratory 17 16 19 Rate Blood Pressure 89/32 L O2 Sat by Pulse 99 100 99 Oximetry 09/25/18 09/25/18 09/25/18 13:00 13:10 13:20 Temperature Pulse Rate 77 79 79 Respiratory 17 16 18 Rate Blood Pressure 118/36 L O2 Sat by Pulse 100 100 100 Oximetry 09/25/18 09/25/18 09/25/18 14:00 14:09 14:10 Temperature Pulse Rate 91 H 98 H 95 H Respiratory 24 26 H 25 H Rate Blood Pressure 148/58 L O2 Sat by Pulse 99 100 100 Oximetry 09/25/18 09/25/18 09/25/18 15:10 15:53 16:00 Temperature Pulse Rate 75 84 78 Respiratory 17 17 17 Rate Blood Pressure 85/36 L 126/49 L O2 Sat by Pulse 100 100 100 Oximetry 09/25/18 09/25/18 09/25/18 16:10 16:50 17:00 Temperature Pulse Rate 84 90 87 Respiratory 21 23 20 Rate Blood Pressure 131/48 L O2 Sat by Pulse 100 99 100 Oximetry 09/25/18 09/25/18 09/25/18 17:10 17:55 18:01 Temperature Pulse Rate 87 84 Respiratory 18 16 Rate Blood Pressure 90/30 L 107/39 L 107/39 L O2 Sat by Pulse 100 99 Oximetry - Physical Exam Abdominal Exam: Soft, Non-Tender, Non-Distended Bowel Sounds: Hypoactive Back: No CVA Tenderness Genitalia: Without Inflammation Urine Color: Clear, Yellow - Plan Additional Information: IMP: CHRONIC UTI. INCONTINENCE. DEMENTIA. STABLE AT PRESENT. P?REC: CONSIDER CATHETERIZATION. WILL DISCUSS W PRIMARY MD. YS - Date & Time of Note Date: 09/25/18 Time: 11:45
--- NOTE | 2018-09-25 21:21 | CP.PCM.PN ---
Subjective - Date & Time of Evaluation Date of Evaluation: 09/25/18 Time of Evaluation: 21:19 - Subjective Subjective: Patient now is more awake and responding. The heart rate is better now. Sinus rhythm noted. Respiration is better. No chest pain or shortness of breath noted. Patient is also more awake and responding. Afebrile. On examination: Vital signs are stable. Chest good air entry Regular heart sounds noted Abdominal tenderness negative tolerating the GI feeding. Labs reviewed Elevated WBC, improving at this time, seen by infectious disease. Assessment and recommendation: 88-year-old female with a history of multiorgan failure, sepsis, recurrent urinary tract infection admitted to the hospital with a UTI again. Currently on antibiotic. Patient had an atrial flutter fibrillation. Patient is at high risk for stroke. We will get a cardiology evaluation for possible anticoagulation recommendation. Continue the current treatment and will follow the patient Objective - Vital Signs/Intake and Output Vital Signs (last 24 hours): Temp Pulse Resp BP Pulse Ox 98.5 F 89 26 H 138/54 L 100 09/25/18 16:00 09/25/18 19:40 09/25/18 19:40 09/25/18 18:55 09/25/18 19:40 Intake and Output: 09/25/18 09/26/18 18:59 06:59 Intake Total 980 40 Output Total 250 Balance 730 40 - Medications Medications: Current Medications Albuterol/Ipratropium (Duoneb 3 Mg/0.5 Mg (3 Ml) Ud) 3 ml INH RQ6 [facility] Last Admin: 09/25/18 20:12 Dose: 3 ml Aspirin (Aspirin Chewable) 81 mg PO DAILY [facility] Last Admin: 09/25/18 09:40 Dose: 81 mg Dextrose (Dextrose 50% Inj) 0 ml IV STAT PRN; Protocol PRN Reason: Hypoglycemia Protocol Dextrose (Glutose 15) 0 gm PO ONCE PRN; Protocol PRN Reason: Hypoglycemia Protocol Diltiazem HCl (Cardizem) 30 mg PO QID [facility] Last Admin: 09/25/18 17:10 Dose: Not Given Glucagon (Glucagen Diagnostic Kit) 0 mg IM STAT PRN; Protocol PRN Reason: Hypoglycemia Protocol Heparin Sodium (Porcine) (Heparin) 5,000 units SC Q12 [facility] Last Admin: 09/25/18 09:54 Dose: 5,000 units Fluconazole (Diflucan Iv 100 Mg/50 Ml Ns) 50 mls @ 100 mls/hr IVPB DAILY [facility]; Protocol Last Admin: 09/25/18 09:41 Dose: 100 mls/hr Sodium Chloride (Sodium Chloride 0.9%) 1,000 mls @ 75 mls/hr IV .[id number] [facility] Last Admin: 09/24/18 08:20 Dose: 75 mls/hr Sodium Chloride (Sodium Chloride 0.9%) 1,000 mls @ 100 mls/hr IV .Q10H [facility] Last Admin: 09/24/18 23:23 Dose: Not Given Dextrose (Dextrose 5% In Water 1000 Ml) 1,000 mls @ 0 mls/hr IV .Q0M PRN; Protocol PRN Reason: Hypoglycemia Protocol Ceftazidime/Avibactam 1.25 gm/ (Sodium Chloride) 100 mls @ 50 mls/hr IV Q8H [facility]; Protocol Last Admin: 09/25/18 19:51 Dose: 50 mls/hr Insulin Glargine (Lantus) 20 unit SC HS [facility] Last Admin: 09/24/18 22:30 Dose: 20 units Insulin Human Regular (Novolin R) 0 unit SC Q6 [facility]; Protocol Last Admin: 09/25/18 18:24 Dose: 4 unit Metoprolol Tartrate (Lopressor) 50 mg PO BID [facility] Pantoprazole Sodium (Protonix Susp) 40 mg PO DAILY [facility] Last Admin: 09/25/18 09:40 Dose: 40 mg Rosuvastatin Calcium (Crestor) 5 mg PO HS [facility] Last Admin: 09/24/18 22:30 Dose: 5 mg - Labs Labs: 09/25/18 07:27 09/25/18 07:27 PT 10.6 SECONDS (9.7-12.2) 09/12/18 22:42 INR 1.0 09/12/18 22:42 APTT 25 SECONDS (21-34) 09/12/18 22:42
--- NOTE | 2018-09-25 21:51 | CP.PCM.PN ---
Subjective - Date & Time of Evaluation Date of Evaluation: 09/25/18 Time of Evaluation: 21:50 - Subjective Subjective: AFEBRILE , MORE AWAKE AND RESPONSIVE, HR BETTER BP IMPROVED. LABS; WBC IMPROVING. CXR 09/25/18 Moderate venous congestion. Consolidative opacification of the left infrahilar region extending to the left lung base. Additional milder consolidative opacification at the lateral aspect of the right lower lung zone. Small left pleural effusion. ( SEE REPORT ) Objective - Vital Signs/Intake and Output Vital Signs (last 24 hours): Temp Pulse Resp BP Pulse Ox 98.5 F 89 26 H 138/54 L 100 09/25/18 16:00 09/25/18 19:40 09/25/18 19:40 09/25/18 18:55 09/25/18 19:40 Intake and Output: 09/25/18 09/26/18 18:59 06:59 Intake Total 980 40 Output Total 250 Balance 730 40 - Medications Medications: Current Medications Albuterol/Ipratropium (Duoneb 3 Mg/0.5 Mg (3 Ml) Ud) 3 ml INH RQ6 [facility] Last Admin: 09/25/18 20:12 Dose: 3 ml Aspirin (Aspirin Chewable) 81 mg PO DAILY [facility] Last Admin: 09/25/18 09:40 Dose: 81 mg Dextrose (Dextrose 50% Inj) 0 ml IV STAT PRN; Protocol PRN Reason: Hypoglycemia Protocol Dextrose (Glutose 15) 0 gm PO ONCE PRN; Protocol PRN Reason: Hypoglycemia Protocol Diltiazem HCl (Cardizem) 30 mg PO QID [facility] Last Admin: 09/25/18 17:10 Dose: Not Given Glucagon (Glucagen Diagnostic Kit) 0 mg IM STAT PRN; Protocol PRN Reason: Hypoglycemia Protocol Heparin Sodium (Porcine) (Heparin) 5,000 units SC Q12 [facility] Last Admin: 09/25/18 09:54 Dose: 5,000 units Fluconazole (Diflucan Iv 100 Mg/50 Ml Ns) 50 mls @ 100 mls/hr IVPB DAILY [facility]; Protocol Last Admin: 09/25/18 09:41 Dose: 100 mls/hr Sodium Chloride (Sodium Chloride 0.9%) 1,000 mls @ 75 mls/hr IV .[id number] [facility] Last Admin: 09/24/18 08:20 Dose: 75 mls/hr Sodium Chloride (Sodium Chloride 0.9%) 1,000 mls @ 100 mls/hr IV .Q10H [facility] Last Admin: 09/24/18 23:23 Dose: Not Given Dextrose (Dextrose 5% In Water 1000 Ml) 1,000 mls @ 0 mls/hr IV .Q0M PRN; Protocol PRN Reason: Hypoglycemia Protocol Ceftazidime/Avibactam 1.25 gm/ (Sodium Chloride) 100 mls @ 50 mls/hr IV Q8H [facility]; Protocol Last Admin: 09/25/18 19:51 Dose: 50 mls/hr Insulin Glargine (Lantus) 20 unit SC HS [facility] Last Admin: 09/24/18 22:30 Dose: 20 units Insulin Human Regular (Novolin R) 0 unit SC Q6 [facility]; Protocol Last Admin: 09/25/18 18:24 Dose: 4 unit Metoprolol Tartrate (Lopressor) 50 mg PO BID [facility] Pantoprazole Sodium (Protonix Susp) 40 mg PO DAILY [facility] Last Admin: 09/25/18 09:40 Dose: 40 mg Rosuvastatin Calcium (Crestor) 5 mg PO HS [facility] Last Admin: 09/24/18 22:30 Dose: 5 mg - Labs Labs: 09/25/18 07:27 09/25/18 07:27 PT 10.6 SECONDS (9.7-12.2) 09/12/18 22:42 INR 1.0 09/12/18 22:42 APTT 25 SECONDS (21-34) 09/12/18 22:42 - Constitutional Appears: No Acute Distress, Chronically Ill - Head Exam Head Exam: NORMAL INSPECTION - Eye Exam Eye Exam: EOMI, PERRL - ENT Exam ENT Exam: Mucous Membranes Dry, Normal Oropharynx - Neck Exam Neck Exam: Normal Inspection - Respiratory Exam Respiratory Exam: Decreased Breath Sounds, NORMAL BREATHING PATTERN - Cardiovascular Exam Cardiovascular Exam: REGULAR RHYTHM, +S1, +S2 - GI/Abdominal Exam GI & Abdominal Exam: Soft, Normal Bowel Sounds (+VE PEG) - Extremities Exam Extremities Exam: Normal Capillary Refill. absent: Calf Tenderness, Pedal Edema - Neurological Exam Neurological Exam: Awake, CN II-XII Intact - Psychiatric Exam Psychiatric exam: Normal Affect - Skin Skin Exam: Normal Color, Warm Assessment and Plan (1) Altered mental status Status: Acute (2) UTI (urinary tract infection) Status: Acute (3) Pneumonia Status: Acute (4) Hypertension Status: Acute (5) Gastrostomy tube in place Status: Acute (6) Skin irritation Status: Acute - Assessment and Plan (Free Text) Plan: CONTINUE PRESENT MANAGEMENT. CASE DISCUSSED WITH STAFF.
[2018-09-25] MEDS: (Lantus) Insulin Glargine, Recombinant SC SCH (22:44)
[2018-09-26] MEDS: Albuterol-Ipratrop 3 mg / 0.5 (3 ml) UD INH SCH ×4 (02:20→19:10)
[2018-09-26] MEDS: (Novolin R) Insulin Human Regular 100 units/ml vial SC SCH ×3 (05:58→18:25)
[2018-09-26 06:23] LABS: BASO % 0.2 % (0.0-2.0); EOS % 0.1 % (0.0-4.0); HEMOGLOBIN 7.2 g/dL (11.0-16.0); LYMPH % 6.9 % (20.0-40.0); MEAN CELL VOLUME 94.7 fL (81.0-99.0); MEAN CORPUSCULAR HEMOGLOBIN 30.9 pg (27.0-31.0); MEAN CORPUSCULAR HGB CONC 32.6 g/dL (33.0-37.0); MEAN PLATELET VOLUME 7.3 fL (7.2-11.7); MONO % 6.7 % (0.0-10.0); NEUT # 12.2 K/uL (1.8-7.0); NEUT % 86.1 % (50.0-75.0); PLATELET COUNT 183 K/uL (130-400); RBC 2.32 Mil/uL (3.80-5.20); RED CELL DISTRIBUTION WIDTH 14.9 % (11.5-14.5); WHITE BLOOD COUNT 14.2 K/uL (4.8-10.8)
[2018-09-26 06:39] LABS: ALB/GLOB RATIO 1.4 (1.0-2.1); ALBUMIN 3.1 g/dL (3.5-5.0); ALT/SGPT 22 U/L (9-52); AST/SGOT 16 U/L (14-36); BLOOD UREA NITROGEN 39 mg/dL (7-17); CALCIUM 9.2 mg/dl (8.6-10.4); GFR NON-AFRICAN AMERICAN > 60
[2018-09-26 08:26] LABS: LYMPHOCYTE 8 % (20-40); MONOCYTE 5 % (0-10); NEUTROPHIL 87 % (50-75); NUCLEATED RED BLOOD CELL 1 % (0-0); TOTAL CELLS COUNTED 100
[2018-09-26 08:27] LABS: PLATELET ESTIMATE NORMAL (NORMAL)
[2018-09-26 08:28] LABS: ANISOCYTOSIS SLIGHT; HYPOCHROMIC SLIGHT; POIKILOCYTOSIS SLIGHT
[2018-09-26] MEDS: Pantoprazole 40 mg Susp UD PO SCH (10:20)
[2018-09-26] MEDS: Fluconazole IV 100mg/50 ml NS 50 ML IVPB SCH (10:22)
[2018-09-26] MEDS: (Lantus) Insulin Glargine, Recombinant SC SCH (21:11)
[2018-09-27] MEDS: Albuterol-Ipratrop 3 mg / 0.5 (3 ml) UD INH SCH ×4 (01:29→19:15)
[2018-09-27] MEDS: (Novolin R) Insulin Human Regular 100 units/ml vial SC SCH ×4 (06:00→19:05)
[2018-09-27 06:37] LABS: BASO # 0.1 K/uL (0.0-0.2); BASO % 0.6 % (0.0-2.0); EOS # 0.6 K/uL (0.0-0.7); EOS % 2.8 % (0.0-4.0); HEMOGLOBIN 8.2 g/dL (11.0-16.0); LYMPH # 2.7 K/uL (1.0-4.3); LYMPH % 12.7 % (20.0-40.0); MEAN CELL VOLUME 95.3 fL (81.0-99.0); MEAN CORPUSCULAR HEMOGLOBIN 31.8 pg (27.0-31.0); MEAN CORPUSCULAR HGB CONC 33.4 g/dL (33.0-37.0); MEAN PLATELET VOLUME 7.6 fL (7.2-11.7); MONO # 1.8 K/uL (0.0-0.8); MONO % 8.7 % (0.0-10.0); NEUT # 15.7 K/uL (1.8-7.0); NEUT % 75.2 % (50.0-75.0); NRBC % 0.3 % (0.0-2.0); RBC 2.58 Mil/uL (3.80-5.20); RED CELL DISTRIBUTION WIDTH 15.2 % (11.5-14.5); WHITE BLOOD COUNT 20.9 K/uL (4.8-10.8)
[2018-09-27 07:11] LABS: ALB/GLOB RATIO 1.7 (1.0-2.1); ALBUMIN 3.6 g/dL (3.5-5.0); ALT/SGPT 19 U/L (9-52); AST/SGOT 17 U/L (14-36); BLOOD UREA NITROGEN 30 mg/dL (7-17); CALCIUM 9.4 mg/dl (8.6-10.4); GFR NON-AFRICAN AMERICAN > 60
--- NOTE | 2018-09-27 08:06 | CP.PCM.PN ---
Subjective - Date & Time of Evaluation Date of Evaluation: 09/26/18 Time of Evaluation: 22:00 - Subjective Subjective: I saw the patient at 10 PM, patient is more awake and responding. She is currently vital signs stable, sinus rhythm noted in the monitor. Chest good air entry Regular heart sounds noted Nontender abdomen. No pedal edema Vital signs and labs reviewed Medications reviewed Patient is a 88-year-old female with a history of CAD, bypass grafting, COPD admitted with the pneumonia. Developed a urinary tract infection with multidrug-resistant Klebsiella. On antibiotic. Developed atrial flutter fibrillation with rapid ventricular rate now sinus rhythm stable patient can be transferred to telemetry Objective - Vital Signs/Intake and Output Vital Signs (last 24 hours): Temp Pulse Resp BP Pulse Ox 98.5 F 97 H 21 111/39 L 100 09/27/18 04:00 09/27/18 07:00 09/27/18 07:00 09/27/18 06:56 09/27/18 07:00 Intake and Output: 09/27/18 09/27/18 06:59 18:59 Intake Total 570 120 Output Total 350 Balance 570 -230 - Medications Medications: Current Medications Albuterol/Ipratropium (Duoneb 3 Mg/0.5 Mg (3 Ml) Ud) 3 ml INH RQ6 [facility] Last Admin: 09/27/18 01:29 Dose: 3 ml Aspirin (Aspirin Chewable) 81 mg PO DAILY [facility] Last Admin: 09/26/18 10:20 Dose: 81 mg Diltiazem HCl (Cardizem) 30 mg PO QID [facility] Last Admin: 09/26/18 21:10 Dose: 30 mg Heparin Sodium (Porcine) (Heparin) 5,000 units SC Q12 [facility] Last Admin: 09/26/18 21:07 Dose: 5,000 units Fluconazole (Diflucan Iv 100 Mg/50 Ml Ns) 50 mls @ 100 mls/hr IVPB DAILY [facility]; Protocol Last Admin: 09/26/18 10:22 Dose: 100 mls/hr Ceftazidime/Avibactam 1.25 gm/ (Sodium Chloride) 100 mls @ 50 mls/hr IV Q8H [facility]; Protocol Last Admin: 09/27/18 03:30 Dose: 50 mls/hr Insulin Glargine (Lantus) 20 unit SC HS [facility] Last Admin: 09/26/18 21:11 Dose: 20 units Insulin Human Regular (Novolin R) 0 unit SC Q6 [facility]; Protocol Last Admin: 09/27/18 06:00 Dose: Not Given Metoprolol Tartrate (Lopressor) 50 mg PO BID [facility] Last Admin: 09/26/18 18:24 Dose: 50 mg Pantoprazole Sodium (Protonix Susp) 40 mg PO DAILY [facility] Last Admin: 09/26/18 10:20 Dose: 40 mg Rosuvastatin Calcium (Crestor) 5 mg PO HS [facility] Last Admin: 09/26/18 21:10 Dose: 5 mg - Labs Labs: 09/27/18 06:31 09/27/18 06:31 PT 10.6 SECONDS (9.7-12.2) 09/12/18 22:42 INR 1.0 09/12/18 22:42 APTT 25 SECONDS (21-34) 09/12/18 22:42
--- NOTE | 2018-09-27 10:04 | CP.CCUPN ---
CCU Subjective - Physician Review Subjective (Free Text): Critical care progress note for Dr. Watt. Patient seen and examined at bedside. No acute events overnight. Patient still is minimally responsive. Unable to obtain ROS due to patient being weak. Nonverbal, but arousable. 09/25/18 20:42 CCU Objective - Vital Signs / Intake & Output Vital Signs (Last 4 hours): Vital Signs Pulse Resp BP Pulse Ox 09/27/18 07:00 97 H 21 100 09/27/18 06:56 94 H 22 111/39 L 100 Intake and Output (Last 8hrs): Intake & Output 09/26/18 09/27/18 09/27/18 22:59 06:59 14:59 Intake Total 480 570 120 Output Total 350 Balance 480 570 -230 Intake: Intake, IV Amount 100 Left Hand 100 Tube Feeding 480 320 120 Other 150 Output: Urine 350 Urine, Voided 350 Emesis 0 Other: # Bowel Movements 1 1 - Physical Exam Pupils: Positive for: PERRL Mouth: Positive for: Moist Mucous Membranes Respiratory/Chest: Positive for: Good Air Exchange, Rales. Negative for: Respiratory Distress, Accessory Muscle Use Cardiovascular: Positive for: Normal S1, S2. Negative for: Muffled Abdomen: Positive for: Normal Bowel Sounds. Negative for: Tenderness, Distention Upper Extremity: Negative for: Cyanosis, Edema Lower Extremity: Negative for: Edema, Cyanosis Skin: Positive for: Warm, Dry, Rashes, Normal Color Psychiatric: Positive for: Alert - Medications Active Medications: Active Medications Generic Name Dose Route Start Last Admin Trade Name Freq PRN Reason Stop Dose Admin Albuterol/Ipratropium 3 ml 09/13/18 12:15 09/27/18 07:50 Duoneb 3 Mg/0.5 Mg (3 Ml) Ud INH 3 ml RQ6 [facility] Administration Aspirin 81 mg 09/14/18 10:00 09/26/18 10:20 Aspirin Chewable PO 81 mg DAILY [facility] Administration Diltiazem HCl 30 mg 09/24/18 22:00 09/26/18 21:10 Cardizem PO 30 mg QID [facility] Administration Heparin Sodium (Porcine) 5,000 units 09/22/18 22:00 09/26/18 21:07 Heparin SC 5,000 units Q12 [facility] Administration Fluconazole 50 mls @ 100 mls/hr 09/24/18 10:00 09/26/18 10:22 Diflucan Iv 100 Mg/50 Ml Ns IVPB 100 mls/hr DAILY [facility] Administration Protocol Ceftazidime/Avibactam 1.25 gm/ 100 mls @ 50 mls/hr 09/25/18 03:20 09/27/18 03:30 Sodium Chloride IV 50 mls/hr Q8H [facility] Administration Protocol Insulin Glargine 20 unit 09/13/18 22:00 09/26/18 21:11 Lantus SC 20 units HS [facility] Administration Insulin Human Regular 0 unit 09/13/18 12:00 09/27/18 06:00 Novolin R SC Not Given Q6 [facility] Protocol Metoprolol Tartrate 50 mg 09/25/18 21:18 09/26/18 18:24 Lopressor PO 50 mg BID [facility] Administration Pantoprazole Sodium 40 mg 09/18/18 10:00 09/26/18 10:20 Protonix Susp PO 40 mg DAILY [facility] Administration Rosuvastatin Calcium 5 mg 09/13/18 22:00 09/26/18 21:10 Crestor PO 5 mg HS [facility] Administration - Patient Studies Lab Studies: Microbiology Studies 09/25/18 05:45 Blood Culture - Preliminary Blood NO GROWTH AFTER 48 HOURS 09/25/18 02:51 MRSA Culture (Admit) - Final Naris MRSA NOT DETECTED Lab Studies 09/27/18 09/27/18 09/27/18 Range/Units 06:31 06:31 00:29 WBC 20.9 H (4.8-10.8) K/uL RBC 2.58 L (3.80-5.20) Mil/uL Hgb 8.2 L (11.0-16.0) g/dL Hct 24.5 L (34.0-47.0) % MCV 95.3 (81.0-99.0) fL MCH 31.8 H (27.0-31.0) pg MCHC 33.4 (33.0-37.0) g/dL RDW 15.2 H (11.5-14.5) % Plt Count 230 (130-400) K/uL MPV 7.6 (7.2-11.7) fL Neut % (Auto) 75.2 H (50.0-75.0) % Lymph % (Auto) 12.7 L (20.0-40.0) % [place] % (Auto) 8.7 (0.0-10.0) % Eos % (Auto) 2.8 (0.0-4.0) % Baso % (Auto) 0.6 (0.0-2.0) % Neut # (Auto) 15.7 H (1.8-7.0) K/uL Lymph # (Auto) 2.7 (1.0-4.3) K/uL [place] # (Auto) 1.8 H (0.0-0.8) K/uL Eos # (Auto) 0.6 (0.0-0.7) K/uL Baso # (Auto) 0.1 (0.0-0.2) K/uL Sodium 135 (132-148) mmol/L Potassium 4.7 (3.6-5.2) mmol/L Chloride 99 (98-107) mmol/L Carbon Dioxide 28 (22-30) mmol/L Anion Gap 13 (10-20) BUN 30 H (7-17) mg/dL Creatinine 0.6 L (0.7-1.2) mg/dL Est GFR ( Amer) > 60 Est GFR (Non-Af Amer) > 60 POC Glucose (mg/dL) 223 H (65-110) mg/dL Random Glucose 109 H D (65-105) mg/dL Calcium 9.4 (8.6-10.4) mg/dl Phosphorus 2.6 (2.5-4.5) mg/dL Magnesium 1.8 (1.6-2.3) mg/dL Total Bilirubin 0.8 (0.2-1.3) mg/dL AST 17 (14-36) U/L ALT 19 (9-52) U/L Alkaline Phosphatase 68 (38-126) U/L Total Protein 5.8 L (6.3-8.3) g/dL Albumin 3.6 (3.5-5.0) g/dL Globulin 2.2 (2.2-3.9) gm/dL Albumin/Globulin Ratio 1.7 (1.0-2.1) 09/26/18 Range/Units 17:39 WBC (4.8-10.8) K/uL RBC (3.80-5.20) Mil/uL Hgb (11.0-16.0) g/dL Hct (34.0-47.0) % MCV (81.0-99.0) fL MCH (27.0-31.0) pg MCHC (33.0-37.0) g/dL RDW (11.5-14.5) % Plt Count (130-400) K/uL MPV (7.2-11.7) fL Neut % (Auto) (50.0-75.0) % Lymph % (Auto) (20.0-40.0) % [place] % (Auto) (0.0-10.0) % Eos % (Auto) (0.0-4.0) % Baso % (Auto) (0.0-2.0) % Neut # (Auto) (1.8-7.0) K/uL Lymph # (Auto) (1.0-4.3) K/uL [place] # (Auto) (0.0-0.8) K/uL Eos # (Auto) (0.0-0.7) K/uL Baso # (Auto) (0.0-0.2) K/uL Sodium (132-148) mmol/L Potassium (3.6-5.2) mmol/L Chloride (98-107) mmol/L Carbon Dioxide (22-30) mmol/L Anion Gap (10-20) BUN (7-17) mg/dL Creatinine (0.7-1.2) mg/dL Est GFR ( Amer) Est GFR (Non-Af Amer) POC Glucose (mg/dL) 214 H (65-110) mg/dL Random Glucose (65-105) mg/dL Calcium (8.6-10.4) mg/dl Phosphorus (2.5-4.5) mg/dL Magnesium (1.6-2.3) mg/dL Total Bilirubin (0.2-1.3) mg/dL AST (14-36) U/L ALT (9-52) U/L Alkaline Phosphatase (38-126) U/L Total Protein (6.3-8.3) g/dL Albumin (3.5-5.0) g/dL Globulin (2.2-3.9) gm/dL Albumin/Globulin Ratio (1.0-2.1) Laboratory Results - last 24 hr 09/26/18 09/27/18 09/27/18 17:39 00:29 06:31 WBC 20.9 H RBC 2.58 L Hgb 8.2 L Hct 24.5 L MCV 95.3 MCH 31.8 H MCHC 33.4 RDW 15.2 H Plt Count 230 MPV 7.6 Neut % (Auto) 75.2 H Lymph % (Auto) 12.7 L Nobles % (Auto) 8.7 Eos % (Auto) 2.8 Baso % (Auto) 0.6 Neut # (Auto) 15.7 H Lymph # (Auto) 2.7 Nobles # (Auto) 1.8 H Eos # (Auto) 0.6 Baso # (Auto) 0.1 Sodium Potassium Chloride Carbon Dioxide Anion Gap BUN Creatinine Est GFR ( Amer) Est GFR (Non-Af Amer) POC Glucose (mg/dL) 214 H 223 H Random Glucose Calcium Phosphorus Magnesium Total Bilirubin AST ALT Alkaline Phosphatase Total Protein Albumin Globulin Albumin/Globulin Ratio 09/27/18 06:31 WBC RBC Hgb Hct MCV MCH MCHC RDW Plt Count MPV Neut % (Auto) Lymph % (Auto) Nobles % (Auto) Eos % (Auto) Baso % (Auto) Neut # (Auto) Lymph # (Auto) Nobles # (Auto) Eos # (Auto) Baso # (Auto) Sodium 135 Potassium 4.7 Chloride 99 Carbon Dioxide 28 Anion Gap 13 BUN 30 H Creatinine 0.6 L Est GFR ( Amer) > 60 Est GFR (Non-Af Amer) > 60 POC Glucose (mg/dL) Random Glucose 109 H D Calcium 9.4 Phosphorus 2.6 Magnesium 1.8 Total Bilirubin 0.8 AST 17 ALT 19 Alkaline Phosphatase 68 Total Protein 5.8 L Albumin 3.6 Globulin 2.2 Albumin/Globulin Ratio 1.7 Fingerstick Blood Sugar Results: 115
[2018-09-27] MEDS: Pantoprazole 40 mg Susp UD PO SCH (10:26)
[2018-09-27] MEDS: Fluconazole IV 100mg/50 ml NS 50 ML IVPB SCH (10:26)
[2018-09-27] MEDS: (Lantus) Insulin Glargine, Recombinant SC SCH (22:18)
--- NOTE | 2018-09-27 23:42 | CP.PCM.PN ---
Subjective - Date & Time of Evaluation Date of Evaluation: 09/27/18 Time of Evaluation: 23:42 - Subjective Subjective: afebrile, comfortable. ON IV ABX/IV ANTIFUNGALS. LABS REVIEWED Objective - Vital Signs/Intake and Output Vital Signs (last 24 hours): Temp Pulse Resp BP Pulse Ox 98.5 F 84 19 111/36 L 100 09/27/18 04:00 09/27/18 19:55 09/27/18 19:55 09/27/18 19:55 09/27/18 19:55 Intake and Output: 09/27/18 09/28/18 18:59 06:59 Intake Total 950 Output Total 750 Balance 200 - Medications Medications: Current Medications Albuterol/Ipratropium (Duoneb 3 Mg/0.5 Mg (3 Ml) Ud) 3 ml INH RQ6 [facility] Last Admin: 09/27/18 19:15 Dose: 3 ml Aspirin (Aspirin Chewable) 81 mg PO DAILY [facility] Last Admin: 09/27/18 10:26 Dose: 81 mg Diltiazem HCl (Cardizem) 30 mg PO QID [facility] Last Admin: 09/27/18 22:18 Dose: 30 mg Heparin Sodium (Porcine) (Heparin) 5,000 units SC Q12 [facility] Last Admin: 09/27/18 22:18 Dose: 5,000 units Fluconazole (Diflucan Iv 100 Mg/50 Ml Ns) 50 mls @ 100 mls/hr IVPB DAILY [facility]; Protocol Last Admin: 09/27/18 10:26 Dose: 100 mls/hr Ceftazidime/Avibactam 1.25 gm/ (Sodium Chloride) 100 mls @ 50 mls/hr IV Q8H [facility]; Protocol Last Admin: 09/27/18 19:03 Dose: 50 mls/hr Insulin Glargine (Lantus) 20 unit SC HS [facility] Last Admin: 09/27/18 22:18 Dose: 20 units Insulin Human Regular (Novolin R) 0 unit SC Q6 [facility]; Protocol Last Admin: 09/27/18 19:05 Dose: 4 units Metoprolol Tartrate (Lopressor) 50 mg PO BID [facility] Last Admin: 09/27/18 19:04 Dose: 50 mg Pantoprazole Sodium (Protonix Susp) 40 mg PO DAILY [facility] Last Admin: 09/27/18 10:26 Dose: 40 mg Rosuvastatin Calcium (Crestor) 5 mg PO HS [facility] Last Admin: 09/27/18 22:18 Dose: 5 mg - Labs Labs: 09/27/18 06:31 09/27/18 06:31 PT 10.6 SECONDS (9.7-12.2) 09/12/18 22:42 INR 1.0 09/12/18 22:42 APTT 25 SECONDS (21-34) 09/12/18 22:42 - Constitutional Appears: No Acute Distress, Chronically Ill - Head Exam Head Exam: NORMAL INSPECTION - Eye Exam Eye Exam: PERRL - ENT Exam ENT Exam: Normal Exam - Neck Exam Neck Exam: Normal Inspection - Respiratory Exam Respiratory Exam: Decreased Breath Sounds, NORMAL BREATHING PATTERN - Cardiovascular Exam Cardiovascular Exam: REGULAR RHYTHM, +S1, +S2 - GI/Abdominal Exam GI & Abdominal Exam: Soft, Normal Bowel Sounds (+VE PEG) - Extremities Exam Extremities Exam: Normal Capillary Refill. absent: Calf Tenderness, Pedal Edema - Skin Skin Exam: Normal Color, Warm Assessment and Plan (1) Altered mental status Status: Acute (2) UTI (urinary tract infection) Status: Acute (3) Pneumonia Status: Acute (4) Hypertension Status: Acute (5) Gastrostomy tube in place Status: Acute (6) Skin irritation Status: Acute - Assessment and Plan (Free Text) Plan: CONTINUE IV AVYCAZ 1.25 G EVERY 8 HOURLY 09/23/18 (ALLERGY; PCN. PATIENT HAS TOLERATED iv MERREM ,AND AZACTAM IN THE PAST.) CONTINUE iv DIFLUCAN 100 MG iv PIGGYBACK ONCE A DAY DAILY 09/24/18 ADEQUATE CONTROL OF BLOOD SUGARS (BS 300-400 F/U CULTURES. CASE DISCUSSED WITH STAFF.
--- NOTE | 2018-09-28 00:03 | CP.PCM.PN ---
Subjective - Date & Time of Evaluation Date of Evaluation: 09/27/18 Time of Evaluation: 22:00 - Subjective Subjective: Patient is now more awake. She is also responding. Patient is not in any distress. Vital signs are stable. Patient is now having pacemaker rhythm at this time. Saturation is 100% On examination: Chest good air entry no wheezing noted Abdomen soft No pedal edema noted. Patient is currently doing otherwise well. We will repeat the labs tomorrow. Currently on antibiotic. We will discuss with infectious disease about the possible discharge plan Objective - Vital Signs/Intake and Output Vital Signs (last 24 hours): Temp Pulse Resp BP Pulse Ox 98.5 F 84 19 111/36 L 100 09/27/18 04:00 09/27/18 19:55 09/27/18 19:55 09/27/18 19:55 09/27/18 19:55 Intake and Output: 09/27/18 09/28/18 18:59 06:59 Intake Total 950 Output Total 750 Balance 200 - Medications Medications: Current Medications Albuterol/Ipratropium (Duoneb 3 Mg/0.5 Mg (3 Ml) Ud) 3 ml INH RQ6 [facility] Last Admin: 09/27/18 19:15 Dose: 3 ml Aspirin (Aspirin Chewable) 81 mg PO DAILY [facility] Last Admin: 09/27/18 10:26 Dose: 81 mg Diltiazem HCl (Cardizem) 30 mg PO QID [facility] Last Admin: 09/27/18 22:18 Dose: 30 mg Heparin Sodium (Porcine) (Heparin) 5,000 units SC Q12 [facility] Last Admin: 09/27/18 22:18 Dose: 5,000 units Fluconazole (Diflucan Iv 100 Mg/50 Ml Ns) 50 mls @ 100 mls/hr IVPB DAILY [facility]; Protocol Last Admin: 09/27/18 10:26 Dose: 100 mls/hr Ceftazidime/Avibactam 1.25 gm/ (Sodium Chloride) 100 mls @ 50 mls/hr IV Q8H [facility]; Protocol Last Admin: 09/27/18 19:03 Dose: 50 mls/hr Insulin Glargine (Lantus) 20 unit SC HS [facility] Last Admin: 09/27/18 22:18 Dose: 20 units Insulin Human Regular (Novolin R) 0 unit SC Q6 [facility]; Protocol Last Admin: 09/27/18 19:05 Dose: 4 units Metoprolol Tartrate (Lopressor) 50 mg PO BID [facility] Last Admin: 09/27/18 19:04 Dose: 50 mg Pantoprazole Sodium (Protonix Susp) 40 mg PO DAILY [facility] Last Admin: 09/27/18 10:26 Dose: 40 mg Rosuvastatin Calcium (Crestor) 5 mg PO HS [facility] Last Admin: 09/27/18 22:18 Dose: 5 mg - Labs Labs: 09/27/18 06:31 09/27/18 06:31 PT 10.6 SECONDS (9.7-12.2) 09/12/18 22:42 INR 1.0 09/12/18 22:42 APTT 25 SECONDS (21-34) 09/12/18 22:42
[2018-09-28] MEDS: (Novolin R) Insulin Human Regular 100 units/ml vial SC SCH ×3 (00:43→18:16)
[2018-09-28] MEDS: Sodium Chloride 0.9% 1,000 ML IV SCH ×2 (00:45→09:53)
[2018-09-28] MEDS: Albuterol-Ipratrop 3 mg / 0.5 (3 ml) UD INH SCH ×4 (01:02→19:27)
[2018-09-28 05:57] LABS: BASO # 0.1 K/uL (0.0-0.2); BASO % 0.4 % (0.0-2.0); EOS # 0.7 K/uL (0.0-0.7); EOS % 4.7 % (0.0-4.0); HEMOGLOBIN 6.9 g/dL (11.0-16.0); LYMPH # 2.7 K/uL (1.0-4.3); LYMPH % 17.9 % (20.0-40.0); MEAN CELL VOLUME 94.8 fL (81.0-99.0); MEAN CORPUSCULAR HEMOGLOBIN 31.3 pg (27.0-31.0); MEAN CORPUSCULAR HGB CONC 33.1 g/dL (33.0-37.0); MEAN PLATELET VOLUME 7.5 fL (7.2-11.7); MONO # 1.5 K/uL (0.0-0.8); MONO % 10.1 % (0.0-10.0); NEUT # 10.1 K/uL (1.8-7.0); NEUT % 66.9 % (50.0-75.0); NRBC % 0.3 % (0.0-2.0); PLATELET COUNT 203 K/uL (130-400); RBC 2.19 Mil/uL (3.80-5.20); RED CELL DISTRIBUTION WIDTH 14.9 % (11.5-14.5); WHITE BLOOD COUNT 15.1 K/uL (4.8-10.8)
[2018-09-28 06:22] LABS: ALB/GLOB RATIO 1.3 (1.0-2.1); ALT/SGPT 27 U/L (9-52); AST/SGOT 13 U/L (14-36); BLOOD UREA NITROGEN 30 mg/dL (7-17); GFR NON-AFRICAN AMERICAN > 60
[2018-09-28] MEDS: Pantoprazole 80 MG in Sodium Chloride 0.9% 100 ML IVP SCH ×2 (07:55→17:20)
--- NOTE | 2018-09-28 09:22 | CP.PCM.PN ---
Subjective - Date & Time of Evaluation Date of Evaluation: 09/28/18 Time of Evaluation: : - Subjective Subjective: Patient is somewhat drowsy sleepy, but arousable easily. This morning labs reviewed Hemoglobin is 6.9 noted. She also had a mild stool dark discoloration noted. Patient in the past had a history of duodenal ulcer, and bleeding. Currently the aspirin and Lovenox is on hold. Will do the stool workup. Stool for occult blood On examination: Afebrile 79 bpm 100% saturation respirations 17 Blood pressure is 110/39. Chest good air entry regular [place] nontender abdomen. Edema 1+ in the legs noted Labs reviewed Except hemoglobin other labs are nonspecific. Assessment and recommendation: 88-year-old female with a history of CABG, COPD, hypertension, history of diabetes. Patient had a history of uterine ulcer. Also had a history of blood transfusion in the past recurrent urinary tract infection with a gram-negative multidrug resistant. Currently patient is on antibiotic. Patient is currently receiving the blood transfusion. GI evaluation may be needed We will continue the current treatment and will follow the patient. Condition is critical and status is critical Objective - Vital Signs/Intake and Output Vital Signs (last 24 hours): Temp Pulse Resp BP Pulse Ox 98.2 F 90 17 124/51 L 100 09/28/18 09:10 09/28/18 09:10 09/28/18 09:10 09/28/18 09:10 09/28/18 04:06 Intake and Output: 09/28/18 09/28/18 06:59 18:59 Intake Total 420 0 Output Total 400 Balance 20 0 - Medications Medications: Current Medications Albuterol/Ipratropium (Duoneb 3 Mg/0.5 Mg (3 Ml) Ud) 3 ml INH RQ6 [facility] Last Admin: 09/28/18 07:51 Dose: 3 ml Aspirin (Aspirin Chewable) 81 mg PO DAILY [facility] Last Admin: 09/27/18 10:26 Dose: 81 mg Diltiazem HCl (Cardizem) 30 mg PO QID [facility] Last Admin: 09/27/18 22:18 Dose: 30 mg Heparin Sodium (Porcine) (Heparin) 5,000 units SC Q12 [facility] Last Admin: 09/27/18 22:18 Dose: 5,000 units Fluconazole (Diflucan Iv 100 Mg/50 Ml Ns) 50 mls @ 100 mls/hr IVPB DAILY [facility]; Protocol Last Admin: 09/27/18 10:26 Dose: 100 mls/hr Ceftazidime/Avibactam 1.25 gm/ (Sodium Chloride) 100 mls @ 50 mls/hr IV Q8H [facility]; Protocol Last Admin: 09/28/18 03:20 Dose: 50 mls/hr Sodium Chloride (Sodium Chloride 0.9%) 1,000 mls @ 100 mls/hr IV .Q10H [facility] Last Admin: 09/28/18 00:45 Dose: 100 mls/hr Pantoprazole Sodium 80 mg/ (Sodium Chloride) 100 mls @ 10 mls/hr IVP .Q10H [facility] Last Admin: 09/28/18 07:55 Dose: 10 mls/hr Insulin Glargine (Lantus) 20 unit SC HS [facility] Last Admin: 09/27/18 22:18 Dose: 20 units Insulin Human Regular (Novolin R) 0 unit SC Q6 [facility]; Protocol Last Admin: 09/28/18 00:43 Dose: 4 units Metoprolol Tartrate (Lopressor) 50 mg PO BID [facility] Last Admin: 09/27/18 19:04 Dose: 50 mg Pantoprazole Sodium (Protonix Susp) 40 mg PO DAILY [facility] Last Admin: 09/27/18 10:26 Dose: 40 mg Rosuvastatin Calcium (Crestor) 5 mg PO HS [facility] Last Admin: 09/27/18 22:18 Dose: 5 mg - Labs Labs: 09/28/18 05:50 09/28/18 05:50 PT 10.6 SECONDS (9.7-12.2) 09/12/18 22:42 INR 1.0 09/12/18 22:42 APTT 25 SECONDS (21-34) 09/12/18 22:42
[2018-09-28] MEDS: Fluconazole IV 100mg/50 ml NS 50 ML IVPB SCH (09:52)
[2018-09-28 11:12] LABS: BANDS 5 % (0-2); EOSINOPHIL 4 % (0-4); LYMPHOCYTE 10 % (20-40); METAMYELOCYTE 2 % (0-0); MONOCYTE 5 % (0-10); MYELOCYTE 3 % (0-0); NEUTROPHIL 71 % (50-75); PLATELET ESTIMATE NORMAL (NORMAL); TOTAL CELLS COUNTED 100
[2018-09-28 11:13] LABS: ANISOCYTOSIS SLIGHT; POIKILOCYTOSIS SLIGHT
[2018-09-28] MEDS: (Lantus) Insulin Glargine, Recombinant SC SCH (21:00)
[2018-09-29] MEDS: (Novolin R) Insulin Human Regular 100 units/ml vial SC SCH ×4 (00:01→18:09)
[2018-09-29] MEDS: Albuterol-Ipratrop 3 mg / 0.5 (3 ml) UD INH SCH ×4 (02:22→19:20)
[2018-09-29] MEDS: Pantoprazole 80 MG in Sodium Chloride 0.9% 100 ML IVP SCH (03:30)
[2018-09-29 06:19] LABS: BASO # 0.1 K/uL (0.0-0.2); BASO % 0.6 % (0.0-2.0); EOS # 0.7 K/uL (0.0-0.7); EOS % 4.2 % (0.0-4.0); HEMOGLOBIN 11.6 g/dL (11.0-16.0); LYMPH # 1.6 K/uL (1.0-4.3); MEAN CORPUSCULAR HEMOGLOBIN 30.2 pg (27.0-31.0); MEAN CORPUSCULAR HGB CONC 33.5 g/dL (33.0-37.0); MEAN PLATELET VOLUME 7.9 fL (7.2-11.7); MONO # 1.4 K/uL (0.0-0.8); MONO % 8.5 % (0.0-10.0); NEUT # 12.6 K/uL (1.8-7.0); NEUT % 76.7 % (50.0-75.0); NRBC % 0.2 % (0.0-2.0); PLATELET COUNT 200 K/uL (130-400); RBC 3.83 Mil/uL (3.80-5.20); RED CELL DISTRIBUTION WIDTH 16.4 % (11.5-14.5); WHITE BLOOD COUNT 16.4 K/uL (4.8-10.8)
[2018-09-29 06:48] LABS: ALB/GLOB RATIO 1.4 (1.0-2.1); ALBUMIN 3.2 g/dL (3.5-5.0); ALT/SGPT 25 U/L (9-52); AST/SGOT 16 U/L (14-36); BLOOD UREA NITROGEN 17 mg/dL (7-17); CALCIUM 8.9 mg/dl (8.6-10.4); GFR NON-AFRICAN AMERICAN > 60
[2018-09-29] MEDS: Fluconazole IV 100mg/50 ml NS 50 ML IVPB SCH (09:48)
--- NOTE | 2018-09-29 10:59 | CP.PCM.PN ---
Subjective - Date & Time of Evaluation Date of Evaluation: 09/29/18 Time of Evaluation: 10:57 - Subjective Subjective: Patient is now more comfortable alert and awake comfortably lying down. Complaining of minimal throat discomfort. No chest pain no shortness of breath noted. Vital signs are stable. On examination: Chest bilateral good air entry regular heart sounds noted Nontender abdomen. Pedal edema 1+ Assessment and recognition: 89-year-old female admitted with severe urinary tract infection and sepsis. She has underlying history of COPD hypertension CAD respiratory failure intubated extubated renal failure. Multiorgan failure in the past. Uncontrolled diabetes. Patient yesterday received 2 units of blood transfusion for suspected GI bleed, stool guaiac is positive, patient in the past had a duodenal ulcer. Antiplatelets and anticoagulation is on hold. We will get a GI evaluation for repeat endoscopy possibly and will follow the patient Objective - Vital Signs/Intake and Output Vital Signs (last 24 hours): Temp Pulse Resp BP Pulse Ox 98.9 F 99 H 18 123/47 L 100 09/29/18 08:00 09/29/18 08:00 09/29/18 07:47 09/29/18 07:47 09/29/18 08:00 Intake and Output: 09/29/18 09/29/18 06:59 18:59 Intake Total 950 250 Output Total 2 Balance 948 250 - Medications Medications: Current Medications Albuterol/Ipratropium (Duoneb 3 Mg/0.5 Mg (3 Ml) Ud) 3 ml INH RQ6 [facility] Last Admin: 09/29/18 07:34 Dose: 3 ml Aspirin (Aspirin Chewable) 81 mg PO DAILY [facility] Last Admin: 09/27/18 10:26 Dose: 81 mg Diltiazem HCl (Cardizem) 30 mg PO QID [facility] Last Admin: 09/29/18 09:13 Dose: 30 mg Heparin Sodium (Porcine) (Heparin) 5,000 units SC Q12 [facility] Last Admin: 09/27/18 22:18 Dose: 5,000 units Fluconazole (Diflucan Iv 100 Mg/50 Ml Ns) 50 mls @ 100 mls/hr IVPB DAILY [facility]; Protocol Last Admin: 09/29/18 09:48 Dose: 100 mls/hr Ceftazidime/Avibactam 1.25 gm/ (Sodium Chloride) 100 mls @ 50 mls/hr IV Q8H [facility]; Protocol Last Admin: 09/29/18 02:20 Dose: 50 mls/hr Insulin Glargine (Lantus) 20 unit SC HS [facility] Last Admin: 09/28/18 21:00 Dose: 20 units Insulin Human Regular (Novolin R) 0 unit SC Q6 [facility]; Protocol Last Admin: 09/29/18 05:47 Dose: Not Given Metoprolol Tartrate (Lopressor) 50 mg PO BID [facility] Last Admin: 09/29/18 09:13 Dose: 50 mg Multivitamins/Vitamin C (Multi-Delyn Liquid) 5 ml PO DAILY [facility] Pantoprazole Sodium (Protonix Susp) 40 mg PO Q12 [facility] Rosuvastatin Calcium (Crestor) 5 mg PO HS [facility] Last Admin: 09/28/18 21:00 Dose: 5 mg - Labs Labs: 09/29/18 06:11 09/29/18 06:11 PT 10.6 SECONDS (9.7-12.2) 09/12/18 22:42 INR 1.0 09/12/18 22:42 APTT 25 SECONDS (21-34) 09/12/18 22:42
[2018-09-29] MEDS: Multiple Vitamins Oral Solution PO SCH (11:08)
--- NOTE | 2018-09-29 11:35 | CP.PCM.CON ---
History of Present Illness - History of Present Illness History of Present Illness: ASked now to see pt for GI blood. 88 yo female h/o COPD, CAD, CABG, UTI- admitted with lethargy- on mult Abx. Yest Hb dropped to 6. Today is better. Question of dark stool yest. PMH- pneumonia, PEG, achalasia and h/o mult esoph dilatations. MEDS- noted. On ASA, heparin Review of Systems - Constitutional Constitutional: Lethargy, Weakness - Cardiovascular Cardiovascular: absent: Chest Pain - Respiratory Respiratory: absent: Hemoptysis, Wheezing - Gastrointestinal Gastrointestinal: Dysphagia. absent: Abdominal Pain, Coffee Ground Emesis, D iarrhea, Dyspepsia, Heartburn, Hematemesis, Hematochezia, Nausea, Vomiting - Genitourinary Genitourinary: absent: Flank Pain, Hematuria - Musculoskeletal Musculoskeletal: absent: Muscle Cramps - Integumentary Integumentary: absent: Jaundice - Neurological Neurological: absent: Convulsions - Psychiatric Psychiatric: Confusion Past Patient History - Infectious Disease Hx of Infectious Diseases: None - Past Medical History & Family History Past Medical History?: Yes - Past Social History Smoking Status: Former Smoker - CARDIAC Hx Cardiac Disorders: Yes Hx Congestive Heart Failure: Yes Hx Hypercholesterolemia: Yes Hx Hypertension: Yes - PULMONARY Hx Chronic Obstructive Pulmonary Disease (COPD): Yes - NEUROLOGICAL Hx Neurological Disorder: No Hx Seizures: No - HEENT Hx HEENT Problems: Yes Hx Cataracts: Yes (2000 Rt.Eye,2010Left Eye) - RENAL Hx Chronic Kidney Disease: No - ENDOCRINE/METABOLIC Hx Diabetes Mellitus Type 2: Yes - HEMATOLOGICAL/ONCOLOGICAL Hx Blood Disorders: No Hx Human Immunodeficiency Virus (HIV): No - INTEGUMENTARY Hx Dermatological Problems: Yes Other/Comment: sore in the sacral area. heel sore - MUSCULOSKELETAL/RHEUMATOLOGICAL Hx Arthritis: Yes Hx Rheumatoid Arthritis: Yes - GASTROINTESTINAL Hx Gastrointestinal Disorders: Yes Hx Colitis: Yes Hx Gastroesophageal Reflux: Yes HX Swallowing Problems: Yes (Achalasia. See HPI) Other/Comment: peg tube - GENITOURINARY/GYNECOLOGICAL Hx Genitourinary Disorders: No Hx Sexually Transmitted Disorders: No - PSYCHIATRIC Hx Substance Use: No - SURGICAL HISTORY Hx Surgeries: Yes Hx Carotid Endarterectomy: Yes (06/13/05) Hx Coronary Artery Bypass Graft: Yes (12/16/1991) Hx Coronary Stent: Yes - ANESTHESIA Hx Anesthesia: Yes Hx Anesthesia Reactions: No Hx Malignant Hyperthermia: No Has any member of the family had a problem w/ anesthesia?: No Meds Allergies/Adverse Reactions: Allergies Allergy/AdvReac Type Severity Reaction Status Date / Time iodine Allergy REDNESS Verified 08/15/18 10:13 Penicillins Allergy ANGIOEDEMA Verified 08/15/18 10:13 clopidogrel [From Plavix] AdvReac HEADACHE Verified 08/15/18 10:13 losartan [From Cozaar] AdvReac DIZZINESS Verified 08/15/18 10:13 nitroglycerin AdvReac DIZZINESS Verified 08/15/18 10:13 - Medications Medications: Current Medications Albuterol/Ipratropium (Duoneb 3 Mg/0.5 Mg (3 Ml) Ud) 3 ml INH RQ6 [facility] Last Admin: 09/29/18 07:34 Dose: 3 ml Aspirin (Aspirin Chewable) 81 mg PO DAILY [facility] Last Admin: 09/27/18 10:26 Dose: 81 mg Diltiazem HCl (Cardizem) 30 mg PO QID [facility] Last Admin: 09/29/18 09:13 Dose: 30 mg Heparin Sodium (Porcine) (Heparin) 5,000 units SC Q12 [facility] Last Admin: 09/27/18 22:18 Dose: 5,000 units Fluconazole (Diflucan Iv 100 Mg/50 Ml Ns) 50 mls @ 100 mls/hr IVPB DAILY [facility]; Protocol Last Admin: 09/29/18 09:48 Dose: 100 mls/hr Ceftazidime/Avibactam 1.25 gm/ (Sodium Chloride) 100 mls @ 50 mls/hr IV Q8H [facility]; Protocol Last Admin: 09/29/18 11:02 Dose: 50 mls/hr Insulin Glargine (Lantus) 20 unit SC HS [facility] Last Admin: 09/28/18 21:00 Dose: 20 units Insulin Human Regular (Novolin R) 0 unit SC Q6 [facility]; Protocol Last Admin: 09/29/18 05:47 Dose: Not Given Metoprolol Tartrate (Lopressor) 50 mg PO BID [facility] Last Admin: 09/29/18 09:13 Dose: 50 mg Multivitamins/Vitamin C (Multi-Delyn Liquid) 5 ml PO DAILY [facility] Last Admin: 09/29/18 11:08 Dose: 5 ml Pantoprazole Sodium (Protonix Susp) 40 mg PO Q12 [facility] Rosuvastatin Calcium (Crestor) 5 mg PO HS [facility] Last Admin: 09/28/18 21:00 Dose: 5 mg Physical Exam - Constitutional Appears: Confused - Neck Exam Neck exam: Negative for: Tenderness - Respiratory Exam Respiratory Exam: Rhonchi - Cardiovascular Exam Cardiovascular Exam: RRR - GI/Abdominal Exam GI & Abdominal Exam: Normal Bowel Sounds, Soft. absent: Mass, Rebound Additional comments: PEG in place - Extremities Exam Extremities exam: Negative for: calf tenderness - Neurological Exam Additional comments: confused, responds Results - Vital Signs Recent Vital Signs: Last Vital Signs Temp 98.9 F 09/29/18 08:00 Pulse 70 09/29/18 11:00 Resp 25 H 09/29/18 11:00 BP 125/47 L 09/29/18 09:45 Pulse Ox 99 09/29/18 11:00 - Labs Result Diagrams: 09/29/18 06:11 09/29/18 06:11 Labs: Laboratory Results - last 24 hr 09/28/18 09/28/18 09/28/18 07:06 15:35 17:23 WBC RBC Hgb Hct MCV MCH MCHC RDW Plt Count MPV Neut % (Auto) Lymph % (Auto) [place] % (Auto) Eos % (Auto) Baso % (Auto) Neut # (Auto) Lymph # (Auto) [place] # (Auto) Eos # (Auto) Baso # (Auto) Sodium Potassium Chloride Carbon Dioxide Anion Gap BUN Creatinine Est GFR ( Amer) Est GFR (Non-Af Amer) POC Glucose (mg/dL) 169 H Random Glucose Calcium Phosphorus Magnesium Total Bilirubin AST ALT Alkaline Phosphatase Total Protein Albumin Globulin Albumin/Globulin Ratio Stool Occult Blood Positive H Blood Type A POSITIVE Antibody Screen Negative 09/28/18 09/28/18 09/29/18 21:13 23:27 04:52 WBC RBC Hgb Hct MCV MCH MCHC RDW Plt Count MPV Neut % (Auto) Lymph % (Auto) [place] % (Auto) Eos % (Auto) Baso % (Auto) Neut # (Auto) Lymph # (Auto) [place] # (Auto) Eos # (Auto) Baso # (Auto) Sodium Potassium Chloride Carbon Dioxide Anion Gap BUN Creatinine Est GFR ( Amer) Est GFR (Non-Af Amer) POC Glucose (mg/dL) 174 H 138 H Random Glucose Calcium Phosphorus Magnesium Total Bilirubin AST ALT Alkaline Phosphatase Total Protein Albumin Globulin Albumin/Globulin Ratio Stool Occult Blood Positive H Blood Type Antibody Screen 09/29/18 09/29/18 06:11 06:11 WBC 16.4 H RBC 3.83 Hgb 11.6 D Hct 34.5 MCV 90.0 D MCH 30.2 MCHC 33.5 RDW 16.4 H Plt Count 200 MPV 7.9 Neut % (Auto) 76.7 H Lymph % (Auto) 10.0 L [place] % (Auto) 8.5 Eos % (Auto) 4.2 H Baso % (Auto) 0.6 Neut # (Auto) 12.6 H Lymph # (Auto) 1.6 [place] # (Auto) 1.4 H Eos # (Auto) 0.7 Baso # (Auto) 0.1 Sodium 136 Potassium 3.9 Chloride 103 Carbon Dioxide 28 Anion Gap 10 BUN 17 Creatinine 0.5 L Est GFR ( Amer) > 60 Est GFR (Non-Af Amer) > 60 POC Glucose (mg/dL) Random Glucose 121 H Calcium 8.9 Phosphorus 2.4 L Magnesium 1.6 Total Bilirubin 1.5 H AST 16 ALT 25 Alkaline Phosphatase 53 Total Protein 5.5 L Albumin 3.2 L Globulin 2.3 Albumin/Globulin Ratio 1.4 Stool Occult Blood Blood Type Antibody Screen Assessment & Plan (1) UTI (urinary tract infection) Status: Acute (2) Anemia Assessment and Plan: with drop of Hb. But Hb went rom 6 to 11 with 2 units- lab is likely lab ERROR. Consider GI bleed- no active bleeding today. Consdier gastrtisi or ulcer. EGD may be difficult with h/o achalasia and esoph stricture. REC_ PPI, follow Hb. CAn aspirin/heparin be held? Status: Acute (3) Anxiety Status: Acute (4) CAD (coronary artery disease) Status: Acute (5) Coronary artery arteriosclerosis Status: Acute (6) Diabetes 1.5, managed as type 2 Status: Acute (7) Esophageal stricture Assessment and Plan: From achalasia. Status: Acute (8) Gastrostomy tube in place Status: Acute (9) Respiratory failure Status: Acute (10) Achalasia Assessment and Plan: h/o mult esoph dilatations in past. Status: Chronic Priority: Medium
[2018-09-29 11:39] LABS: ANISOCYTOSIS SLIGHT; BANDS 5 % (0-2); EOSINOPHIL 4 % (0-4); LYMPHOCYTE 12 % (20-40); MONOCYTE 9 % (0-10); NEUTROPHIL 70 % (50-75); NUCLEATED RED BLOOD CELL 2 % (0-0); PLATELET ESTIMATE NORMAL (NORMAL); TOTAL CELLS COUNTED 100
[2018-09-29 11:40] LABS: POIKILOCYTOSIS SLIGHT
--- NOTE | 2018-09-29 17:01 | PCM.URO ---
Urology Progress Note - General General: No Complaints (lethargic) - Subjective Abdominal Pain: No Flank Pain: No Nausea: No Voiding Well: No (incontinent) Hematuria: No Stone Passed: No - Objective Lab Studies: Reviewed (leukocytosis) Lab Results Last 24 Hours: Laboratory Results - last 24 hr 09/28/18 09/28/18 09/28/18 17:23 21:13 23:27 WBC RBC Hgb Hct MCV MCH MCHC RDW Plt Count MPV Neut % (Auto) Lymph % (Auto) [place] % (Auto) Eos % (Auto) Baso % (Auto) Neut # (Auto) Lymph # (Auto) [place] # (Auto) Eos # (Auto) Baso # (Auto) Neutrophils % (Manual) Band Neutrophils % Lymphocytes % (Manual) Monocytes % (Manual) Eosinophils % (Manual) Nucleated RBC % Platelet Estimate Poikilocytosis (manual Anisocytosis (manual) Sodium Potassium Chloride Carbon Dioxide Anion Gap BUN Creatinine Est GFR ( Amer) Est GFR (Non-Af Amer) POC Glucose (mg/dL) 169 H 174 H Random Glucose Calcium Phosphorus Magnesium Total Bilirubin AST ALT Alkaline Phosphatase Total Protein Albumin Globulin Albumin/Globulin Ratio Stool Occult Blood Positive H 09/29/18 09/29/18 09/29/18 04:52 06:11 06:11 WBC 16.4 H RBC 3.83 Hgb 11.6 D Hct 34.5 MCV 90.0 D MCH 30.2 MCHC 33.5 RDW 16.4 H Plt Count 200 MPV 7.9 Neut % (Auto) 76.7 H Lymph % (Auto) 10.0 L [place] % (Auto) 8.5 Eos % (Auto) 4.2 H Baso % (Auto) 0.6 Neut # (Auto) 12.6 H Lymph # (Auto) 1.6 [place] # (Auto) 1.4 H Eos # (Auto) 0.7 Baso # (Auto) 0.1 Neutrophils % (Manual) 70 Band Neutrophils % 5 H Lymphocytes % (Manual) 12 L Monocytes % (Manual) 9 Eosinophils % (Manual) 4 Nucleated RBC % 2 H Platelet Estimate Normal Poikilocytosis (manual Slight Anisocytosis (manual) Slight Sodium 136 Potassium 3.9 Chloride 103 Carbon Dioxide 28 Anion Gap 10 BUN 17 Creatinine 0.5 L Est GFR ( Amer) > 60 Est GFR (Non-Af Amer) > 60 POC Glucose (mg/dL) 138 H Random Glucose 121 H Calcium 8.9 Phosphorus 2.4 L Magnesium 1.6 Total Bilirubin 1.5 H AST 16 ALT 25 Alkaline Phosphatase 53 Total Protein 5.5 L Albumin 3.2 L Globulin 2.3 Albumin/Globulin Ratio 1.4 Stool Occult Blood Intake & Output: Intake & Output 09/28/18 09/29/18 09/29/18 18:59 06:59 18:59 Intake Total 2241 950 510 Output Total 250 2 Balance 1990 948 510 Intake: Intake, IV Amount 840 330 230 Left Wrist 340 210 200 Right arm midline 500 120 30 Oral 210 Tube Feeding 480 520 280 Blood Product 601 Apheresis Rbc Cp2d As3 Lr 276 2nd Unit [id number] Red Blood Cells Cpd As1 325 Lr Unit [id number] Other 110 100 Apheresis Rbc Cp2d As3 Lr 30 2nd Unit [id number] Red Blood Cells Cpd As1 80 Lr Unit [id number] Output: Urine 250 Urine, Voided 250 Urine/Stool Mix 2 Other: # Voids Urine, Voided 0 0 300 # Bowel Movements 0 0 Vital Signs: Vital Signs - 24 hr 09/28/18 09/28/18 09/28/18 17:00 17:05 18:00 Temperature Pulse Rate 82 91 H 72 Respiratory 15 28 H 21 Rate Blood Pressure 170/68 H O2 Sat by Pulse 100 100 100 Oximetry 09/28/18 09/28/18 09/28/18 18:06 19:00 19:05 Temperature Pulse Rate 77 82 75 Respiratory 32 H 19 33 H Rate Blood Pressure 132/50 L 140/53 L O2 Sat by Pulse 100 100 100 Oximetry 09/28/18 09/28/18 09/28/18 19:46 20:00 23:47 Temperature 98.7 F Pulse Rate 79 80 Respiratory 20 24 Rate Blood Pressure 145/58 L 128/52 L O2 Sat by Pulse 100 100 Oximetry 09/29/18 09/29/18 09/29/18 00:00 00:23 00:26 Temperature 97.8 F Pulse Rate 87 87 80 Respiratory 44 H Rate Blood Pressure O2 Sat by Pulse 100 Oximetry 09/29/18 09/29/18 09/29/18 03:47 04:00 07:47 Temperature 98 F Pulse Rate 100 H 86 Respiratory 29 H 18 Rate Blood Pressure 149/68 123/47 L O2 Sat by Pulse 99 100 Oximetry 09/29/18 09/29/18 09/29/18 08:00 09:45 11:00 Temperature 98.9 F Pulse Rate 99 H 101 H 70 Respiratory 42 H 25 H Rate Blood Pressure 125/47 L O2 Sat by Pulse 100 98 99 Oximetry - Physical Exam Abdominal Exam: Soft, Non-Tender, Non-Distended Back: No CVA Tenderness Urine Color: Clear (via ext catheter), Yellow - Plan Intake & Output: Yes Additional Information: Consider genao catheter. Antibiotic rx. ICU care - Date & Time of Note Date: 09/29/18 Time: 08:50
[2018-09-29] MEDS: (Lantus) Insulin Glargine, Recombinant SC SCH (21:09)
[2018-09-29] MEDS: Pantoprazole 40 mg Susp UD PO SCH (21:09)
[2018-09-30] MEDS: Albuterol-Ipratrop 3 mg / 0.5 (3 ml) UD INH SCH ×4 (01:27→20:15)
[2018-09-30] MEDS: (Novolin R) Insulin Human Regular 100 units/ml vial SC SCH ×4 (06:00→18:32)
[2018-09-30 06:22] LABS: BASO % 0.3 % (0.0-2.0); EOS # 0.5 K/uL (0.0-0.7); EOS % 3.6 % (0.0-4.0); HEMOGLOBIN 11.7 g/dL (11.0-16.0); LYMPH # 1.4 K/uL (1.0-4.3); LYMPH % 10.3 % (20.0-40.0); MEAN CELL VOLUME 91.2 fL (81.0-99.0); MEAN CORPUSCULAR HEMOGLOBIN 29.9 pg (27.0-31.0); MEAN CORPUSCULAR HGB CONC 32.7 g/dL (33.0-37.0); MEAN PLATELET VOLUME 8.1 fL (7.2-11.7); MONO # 0.8 K/uL (0.0-0.8); MONO % 5.7 % (0.0-10.0); NEUT # 10.7 K/uL (1.8-7.0); NEUT % 80.1 % (50.0-75.0); RBC 3.93 Mil/uL (3.80-5.20); RED CELL DISTRIBUTION WIDTH 16.6 % (11.5-14.5); WHITE BLOOD COUNT 13.4 K/uL (4.8-10.8)
[2018-09-30 06:43] LABS: ALB/GLOB RATIO 1.4 (1.0-2.1); ALBUMIN 3.4 g/dL (3.5-5.0); ALT/SGPT 15 U/L (9-52); AST/SGOT 17 U/L (14-36); BLOOD UREA NITROGEN 19 mg/dL (7-17); CALCIUM 9.2 mg/dl (8.6-10.4); GFR NON-AFRICAN AMERICAN > 60
[2018-09-30] MEDS: Fluconazole IV 100mg/50 ml NS 50 ML IVPB SCH (10:08)
[2018-09-30] MEDS: Multiple Vitamins Oral Solution PO SCH (10:09)
[2018-09-30] MEDS: Pantoprazole 40 mg Susp UD PO SCH ×2 (10:09→23:17)
--- NOTE | 2018-09-30 15:28 | CP.PCM.PN ---
Subjective - Date & Time of Evaluation Date of Evaluation: 09/30/18 Time of Evaluation: 15:24 - Subjective Subjective: F'U anemia, OB positive stool In ICU. Dark brown stool noted No difficulty breathing Has been on Heparin, Aspirin, with PPI EGD Apr 2018- bleeding ulcers. Should repeat EGD Objective - Vital Signs/Intake and Output Vital Signs (last 24 hours): Temp Pulse Resp BP Pulse Ox 98.4 F 78 27 H 112/44 L 99 09/30/18 08:00 09/30/18 13:20 09/30/18 13:20 09/30/18 13:21 09/30/18 13:20 Intake and Output: 09/30/18 09/30/18 06:59 18:59 Intake Total 880 250 Output Total 500 Balance 380 250 - Medications Medications: Current Medications Albuterol/Ipratropium (Duoneb 3 Mg/0.5 Mg (3 Ml) Ud) 3 ml INH RQ6 [facility] Last Admin: 09/30/18 14:11 Dose: 3 ml Aspirin (Aspirin Chewable) 81 mg PO DAILY [facility] Last Admin: 09/27/18 10:26 Dose: 81 mg Diltiazem HCl (Cardizem) 30 mg PO QID [facility] Last Admin: 09/30/18 10:08 Dose: 30 mg Heparin Sodium (Porcine) (Heparin) 5,000 units SC Q12 [facility] Last Admin: 09/27/18 22:18 Dose: 5,000 units Fluconazole (Diflucan Iv 100 Mg/50 Ml Ns) 50 mls @ 100 mls/hr IVPB DAILY [facility]; Protocol Last Admin: 09/30/18 10:08 Dose: 100 mls/hr Insulin Glargine (Lantus) 20 unit SC HS [facility] Last Admin: 09/29/18 21:09 Dose: 20 units Insulin Human Regular (Novolin R) 0 unit SC Q6 [facility]; Protocol Last Admin: 09/30/18 12:54 Dose: 3 units Metoprolol Tartrate (Lopressor) 50 mg PO BID [facility] Last Admin: 09/30/18 10:09 Dose: 50 mg Multivitamins/Vitamin C (Multi-Delyn Liquid) 5 ml PO DAILY [facility] Last Admin: 09/30/18 10:09 Dose: 5 ml Pantoprazole Sodium (Protonix Susp) 40 mg PO Q12 [facility] Last Admin: 09/30/18 10:09 Dose: 40 mg Rosuvastatin Calcium (Crestor) 5 mg PO HS [facility] Last Admin: 09/29/18 21:08 Dose: 5 mg - Labs Labs: 09/30/18 06:15 09/30/18 06:16 PT 10.6 SECONDS (9.7-12.2) 09/12/18 22:42 INR 1.0 09/12/18 22:42 APTT 25 SECONDS (21-34) 09/12/18 22:42 - Constitutional Appears: Chronically Ill - Head Exam Head Exam: NORMOCEPHALIC - Respiratory Exam Respiratory Exam: Clear to Ausculation Bilateral - Cardiovascular Exam Cardiovascular Exam: REGULAR RHYTHM - GI/Abdominal Exam GI & Abdominal Exam: Soft. absent: Tenderness, Mass Additional comments: GTube Assessment and Plan (1) Anemia Assessment & Plan: R/O recurrent upper GI bleed, with known history of bleeding ulcers + recent anticoaluant use Rec: Continue PPI. EGD Status: Acute (2) Coronary artery arteriosclerosis Status: Acute (3) Diabetes 1.5, managed as type 2 Status: Acute (4) Esophageal stricture Status: Acute
--- NOTE | 2018-09-30 20:29 | CP.PCM.PN ---
Subjective - Date & Time of Evaluation Date of Evaluation: 09/30/18 Time of Evaluation: 20:28 - Subjective Subjective: AFEBRILE VSS EVENTS NOTED, H/H DROPPED TO 6.9 0N 09/28/18 S/P 2 UNITS OF PACKED RED BLOOD CELL TRANSFUSION 09/28/18. SEEN BY GI- F/U NOTED. LABS REVIEWED. WBC 13.4 IMPROVING H/H 11.7/35.8 BETTER AFTER 2UNITS PRBC STOOLS FOR OCCULT BLOOD +VE Objective - Vital Signs/Intake and Output Vital Signs (last 24 hours): Temp Pulse Resp BP Pulse Ox 98.2 F 73 18 128/55 L 97 09/30/18 20:00 09/30/18 20:00 09/30/18 20:00 09/30/18 19:47 09/30/18 20:00 Intake and Output: 09/30/18 10/01/18 18:59 06:59 Intake Total 530 Balance 530 - Medications Medications: Current Medications Albuterol/Ipratropium (Duoneb 3 Mg/0.5 Mg (3 Ml) Ud) 3 ml INH RQ6 [facility] Last Admin: 09/30/18 20:15 Dose: 3 ml Aspirin (Aspirin Chewable) 81 mg PO DAILY [facility] Last Admin: 09/27/18 10:26 Dose: 81 mg Diltiazem HCl (Cardizem) 30 mg PO QID [facility] Last Admin: 09/30/18 18:32 Dose: 30 mg Heparin Sodium (Porcine) (Heparin) 5,000 units SC Q12 [facility] Last Admin: 09/27/18 22:18 Dose: 5,000 units Fluconazole (Diflucan Iv 100 Mg/50 Ml Ns) 50 mls @ 100 mls/hr IVPB DAILY [facility]; Protocol Last Admin: 09/30/18 10:08 Dose: 100 mls/hr Ceftazidime/Avibactam 1.25 gm/ (Sodium Chloride) 100 mls @ 50 mls/hr IV Q8H [facility]; Protocol Insulin Glargine (Lantus) 20 unit SC HS [facility] Last Admin: 09/29/18 21:09 Dose: 20 units Insulin Human Regular (Novolin R) 0 unit SC Q6 [facility]; Protocol Last Admin: 09/30/18 18:32 Dose: 3 units Metoprolol Tartrate (Lopressor) 50 mg PO BID [facility] Last Admin: 09/30/18 18:32 Dose: 50 mg Multivitamins/Vitamin C (Multi-Delyn Liquid) 5 ml PO DAILY [facility] Last Admin: 09/30/18 10:09 Dose: 5 ml Pantoprazole Sodium (Protonix Susp) 40 mg PO Q12 [facility] Last Admin: 09/30/18 10:09 Dose: 40 mg Rosuvastatin Calcium (Crestor) 5 mg PO HS [facility] Last Admin: 09/29/18 21:08 Dose: 5 mg - Labs Labs: 09/30/18 06:15 09/30/18 06:16 PT 10.6 SECONDS (9.7-12.2) 09/12/18 22:42 INR 1.0 09/12/18 22:42 APTT 25 SECONDS (21-34) 09/12/18 22:42 - Constitutional Appears: No Acute Distress, Chronically Ill - Head Exam Head Exam: NORMAL INSPECTION - Eye Exam Eye Exam: EOMI, PERRL - ENT Exam ENT Exam: Normal Oropharynx - Neck Exam Neck Exam: Normal Inspection - Respiratory Exam Respiratory Exam: Decreased Breath Sounds (BASES), NORMAL BREATHING PATTERN - Cardiovascular Exam Cardiovascular Exam: REGULAR RHYTHM, +S1, +S2 - GI/Abdominal Exam GI & Abdominal Exam: Soft, Normal Bowel Sounds (PEG IN PLACE) - Extremities Exam Extremities Exam: Normal Capillary Refill, Pedal Edema. absent: Calf Tenderness Assessment and Plan (1) Altered mental status Status: Acute (2) UTI (urinary tract infection) Status: Acute (3) Pneumonia Status: Acute (4) Hypertension Status: Acute (5) Gastrostomy tube in place Status: Acute (6) Skin irritation Status: Acute - Assessment and Plan (Free Text) Plan: CONTINUE IV AVYCAZ 1.25 G EVERY 8 HOURLY 09/23/18-DAY (ALLERGY; PCN. PATIENT HAS TOLERATED iv MERREM ,AND AZACTAM IN THE PAST.) CONTINUE iv DIFLUCAN 100 MG iv PIGGYBACK ONCE A DAY DAILY 09/24/18 ADEQUATE CONTROL OF BLOOD SUGARS. PER GI -EGD /ON PPI./HX PUD CASE DISCUSSED WITH STAFF.
[2018-09-30] MEDS: (Lantus) Insulin Glargine, Recombinant SC SCH (21:29)
[2018-10-01] MEDS: (Novolin R) Insulin Human Regular 100 units/ml vial SC SCH ×4 (00:48→18:09)
[2018-10-01] MEDS: Albuterol-Ipratrop 3 mg / 0.5 (3 ml) UD INH SCH ×4 (02:50→21:19)
[2018-10-01] MEDS: Fluconazole IV 100mg/50 ml NS 50 ML IVPB SCH (10:51)
[2018-10-01] MEDS: Pantoprazole 40 mg Susp UD PO SCH ×2 (10:52→21:08)
[2018-10-01] MEDS: Multiple Vitamins Oral Solution PO SCH (10:52)
[2018-10-01] MEDS ORDERED: Sodium Chloride 0.9% 500 ML IV ONE (13:27)
[2018-10-01] MEDS ORDERED: Propofol 10 mg/ml Inj (20 ML) ONE (13:35)
[2018-10-01] MEDS: (Lantus) Insulin Glargine, Recombinant SC SCH (21:08)
--- NOTE | 2018-10-01 22:42 | CP.PCM.PN ---
Subjective - Date & Time of Evaluation Date of Evaluation: 10/01/18 Time of Evaluation: 22:42 - Subjective Subjective: AFEBRILE VSS AWAKE AND SMILING STOOLS DARK BROWN S/P 2 UNITS OF PACKED RED BLOOD CELL TRANSFUSION 09/28/18. SEEN BY GI- F/U NOTED. Objective - Vital Signs/Intake and Output Vital Signs (last 24 hours): Temp Pulse Resp BP Pulse Ox 98.7 F 83 25 H 142/55 L 100 10/01/18 20:00 10/01/18 20:00 10/01/18 20:00 10/01/18 20:00 10/01/18 20:00 Intake and Output: 10/01/18 10/02/18 18:59 06:59 Intake Total 230 Balance 230 - Medications Medications: Current Medications Albuterol/Ipratropium (Duoneb 3 Mg/0.5 Mg (3 Ml) Ud) 3 ml INH RQ6 [facility] Last Admin: 10/01/18 21:19 Dose: 3 ml Aspirin (Aspirin Chewable) 81 mg PO DAILY [facility] Last Admin: 09/27/18 10:26 Dose: 81 mg Diltiazem HCl (Cardizem) 30 mg PO QID [facility] Last Admin: 10/01/18 21:08 Dose: 30 mg Heparin Sodium (Porcine) (Heparin) 5,000 units SC Q12 [facility] Last Admin: 09/27/18 22:18 Dose: 5,000 units Fluconazole (Diflucan Iv 100 Mg/50 Ml Ns) 50 mls @ 100 mls/hr IVPB DAILY [facility]; Protocol Last Admin: 10/01/18 10:51 Dose: 100 mls/hr Ceftazidime/Avibactam 1.25 gm/ (Sodium Chloride) 100 mls @ 50 mls/hr IV Q8H [facility]; Protocol Last Admin: 10/01/18 20:39 Dose: 50 mls/hr Insulin Glargine (Lantus) 20 unit SC HS [facility] Last Admin: 10/01/18 21:08 Dose: 20 units Insulin Human Regular (Novolin R) 0 unit SC Q6 [facility]; Protocol Last Admin: 10/01/18 18:09 Dose: 4 units Metoprolol Tartrate (Lopressor) 50 mg PO BID [facility] Last Admin: 10/01/18 18:06 Dose: 50 mg Multivitamins/Vitamin C (Multi-Delyn Liquid) 5 ml PO DAILY [facility] Last Admin: 10/01/18 10:52 Dose: 5 ml Pantoprazole Sodium (Protonix Susp) 40 mg PO Q12 [facility] Last Admin: 10/01/18 21:08 Dose: 40 mg Rosuvastatin Calcium (Crestor) 5 mg PO HS [facility] Last Admin: 10/01/18 21:08 Dose: 5 mg - Labs Labs: 09/30/18 06:15 09/30/18 06:16 PT 10.6 SECONDS (9.7-12.2) 09/12/18 22:42 INR 1.0 09/12/18 22:42 APTT 25 SECONDS (21-34) 09/12/18 22:42 - Constitutional Appears: No Acute Distress, Chronically Ill - Head Exam Head Exam: NORMAL INSPECTION - Eye Exam Eye Exam: EOMI, PERRL - ENT Exam ENT Exam: Normal Oropharynx - Neck Exam Neck Exam: Normal Inspection - Respiratory Exam Respiratory Exam: Decreased Breath Sounds, NORMAL BREATHING PATTERN - Cardiovascular Exam Cardiovascular Exam: REGULAR RHYTHM, +S1, +S2 - GI/Abdominal Exam GI & Abdominal Exam: Soft, Normal Bowel Sounds. absent: Distended, Tenderness - Extremities Exam Extremities Exam: Normal Capillary Refill. absent: Calf Tenderness, Pedal Edema, Tenderness - Neurological Exam Neurological Exam: Awake, CN II-XII Intact - Psychiatric Exam Psychiatric exam: Normal Mood - Skin Skin Exam: Normal Color, Warm Assessment and Plan (1) Altered mental status Status: Acute (2) UTI (urinary tract infection) Status: Acute (3) Pneumonia Status: Acute (4) Hypertension Status: Acute (5) Gastrostomy tube in place Status: Acute (6) Skin irritation Status: Acute - Assessment and Plan (Free Text) Plan: CONTINUE IV AVYCAZ 1.25 G EVERY 8 HOURLY 09/23/18-DAY-9 (ALLERGY; PCN. PATIENT HAS TOLERATED iv MERREM ,AND AZACTAM IN THE PAST.) CONTINUE iv DIFLUCAN 100 MG iv PIGGYBACK ONCE A DAY DAILY 09/24/18-DAY 8 ADEQUATE CONTROL OF BLOOD SUGARS. PER GI -EGD /ON PPI. CASE DISCUSSED WITH STAFF.
[2018-10-02] MEDS: (Novolin R) Insulin Human Regular 100 units/ml vial SC SCH ×4 (00:22→18:38)
[2018-10-02] MEDS: Albuterol-Ipratrop 3 mg / 0.5 (3 ml) UD INH SCH ×4 (03:07→19:37)
--- NOTE | 2018-10-02 07:50 | CP.PCM.PN ---
Subjective - Date & Time of Evaluation Date of Evaluation: 10/01/18 Time of Evaluation: 07:50 - Subjective Subjective: Patient is comfortable not in any distress Tolerating the feeding. Currently patient is n.p.o. for possible endoscopy. Vital signs stable. Assessment and recommendation: 88-year-old female admitted to the hospital with acute sepsis. Acute respiratory failure. Clinically otherwise stableAnemia secondary to possible GI bleed. Awaiting for endoscopy. On antibiotic. Clinically patient is otherwise stable. Will await for the antibiotic ID as well as GI evaluation and clearance Objective - Vital Signs/Intake and Output Vital Signs (last 24 hours): Temp Pulse Resp BP Pulse Ox 98.3 F 90 26 H 166/62 H 100 10/02/18 04:00 10/02/18 04:00 10/02/18 04:00 10/02/18 04:00 10/02/18 04:00 Intake and Output: 10/02/18 10/02/18 06:59 18:59 Intake Total 780 Output Total 1 Balance 779 - Medications Medications: Current Medications Albuterol/Ipratropium (Duoneb 3 Mg/0.5 Mg (3 Ml) Ud) 3 ml INH RQ6 [facility] Last Admin: 10/02/18 03:07 Dose: Not Given Aspirin (Aspirin Chewable) 81 mg PO DAILY [facility] Last Admin: 09/27/18 10:26 Dose: 81 mg Diltiazem HCl (Cardizem) 30 mg PO QID [facility] Last Admin: 10/01/18 21:08 Dose: 30 mg Heparin Sodium (Porcine) (Heparin) 5,000 units SC Q12 [facility] Last Admin: 09/27/18 22:18 Dose: 5,000 units Fluconazole (Diflucan Iv 100 Mg/50 Ml Ns) 50 mls @ 100 mls/hr IVPB DAILY [facility]; Protocol Last Admin: 10/01/18 10:51 Dose: 100 mls/hr Ceftazidime/Avibactam 1.25 gm/ (Sodium Chloride) 100 mls @ 50 mls/hr IV Q8H [facility]; Protocol Last Admin: 10/02/18 03:11 Dose: 50 mls/hr Insulin Glargine (Lantus) 20 unit SC HS [facility] Last Admin: 10/01/18 21:08 Dose: 20 units Insulin Human Regular (Novolin R) 0 unit SC Q6 [facility]; Protocol Last Admin: 10/02/18 05:52 Dose: 2 units Metoprolol Tartrate (Lopressor) 50 mg PO BID [facility] Last Admin: 10/01/18 18:06 Dose: 50 mg Multivitamins/Vitamin C (Multi-Delyn Liquid) 5 ml PO DAILY [facility] Last Admin: 10/01/18 10:52 Dose: 5 ml Pantoprazole Sodium (Protonix Susp) 40 mg PO Q12 [facility] Last Admin: 10/01/18 21:08 Dose: 40 mg Rosuvastatin Calcium (Crestor) 5 mg PO HS [facility] Last Admin: 10/01/18 21:08 Dose: 5 mg - Labs Labs: 09/30/18 06:15 09/30/18 06:16 PT 10.6 SECONDS (9.7-12.2) 09/12/18 22:42 INR 1.0 09/12/18 22:42 APTT 25 SECONDS (21-34) 09/12/18 22:42
[2018-10-02] MEDS: Multiple Vitamins Oral Solution PO SCH (09:41)
[2018-10-02] MEDS: Pantoprazole 40 mg Susp UD PO SCH ×2 (09:44→21:49)
[2018-10-02] MEDS: Fluconazole IV 100mg/50 ml NS 50 ML IVPB SCH (09:44)
--- NOTE | 2018-10-02 11:39 | CP.PCM.PN ---
Subjective - Date & Time of Evaluation Date of Evaluation: 10/02/18 Time of Evaluation: 11:37 - Subjective Subjective: No GI bleeding Hgb stable Tolerating feeds EGD- chronic esophageal stricture, G Tube visualized endoscopically Objective - Vital Signs/Intake and Output Vital Signs (last 24 hours): Temp Pulse Resp BP Pulse Ox 98.0 F 70 22 133/46 L 10 L 10/02/18 11:26 10/02/18 11:26 10/02/18 11:26 10/02/18 11:26 10/02/18 11:26 Intake and Output: 10/02/18 10/02/18 06:59 18:59 Intake Total 780 Output Total 1 Balance 779 - Medications Medications: Current Medications Albuterol/Ipratropium (Duoneb 3 Mg/0.5 Mg (3 Ml) Ud) 3 ml INH RQ6 [facility] Last Admin: 10/02/18 07:30 Dose: 3 ml Aspirin (Aspirin Chewable) 81 mg PO DAILY [facility] Last Admin: 09/27/18 10:26 Dose: 81 mg Diltiazem HCl (Cardizem) 30 mg PO QID [facility] Last Admin: 10/02/18 09:41 Dose: 30 mg Heparin Sodium (Porcine) (Heparin) 5,000 units SC Q12 [facility] Last Admin: 09/27/18 22:18 Dose: 5,000 units Fluconazole (Diflucan Iv 100 Mg/50 Ml Ns) 50 mls @ 100 mls/hr IVPB DAILY [facility]; Protocol Last Admin: 10/02/18 09:44 Dose: 100 mls/hr Ceftazidime/Avibactam 1.25 gm/ (Sodium Chloride) 100 mls @ 50 mls/hr IV Q8H [facility]; Protocol Last Admin: 10/02/18 11:30 Dose: 50 mls/hr Insulin Glargine (Lantus) 20 unit SC HS [facility] Last Admin: 10/01/18 21:08 Dose: 20 units Insulin Human Regular (Novolin R) 0 unit SC Q6 [facility]; Protocol Last Admin: 10/02/18 11:30 Dose: 4 units Metoprolol Tartrate (Lopressor) 50 mg PO BID [facility] Last Admin: 10/01/18 18:06 Dose: 50 mg Multivitamins/Vitamin C (Multi-Delyn Liquid) 5 ml PO DAILY [facility] Last Admin: 10/02/18 09:41 Dose: 5 ml Pantoprazole Sodium (Protonix Susp) 40 mg PO Q12 [facility] Last Admin: 10/02/18 09:44 Dose: 40 mg Rosuvastatin Calcium (Crestor) 5 mg PO HS [facility] Last Admin: 10/01/18 21:08 Dose: 5 mg - Labs Labs: 09/30/18 06:15 09/30/18 06:16 PT 10.6 SECONDS (9.7-12.2) 09/12/18 22:42 INR 1.0 09/12/18 22:42 APTT 25 SECONDS (21-34) 09/12/18 22:42 - Constitutional Appears: Chronically Ill - Respiratory Exam Respiratory Exam: NORMAL BREATHING PATTERN - Cardiovascular Exam Cardiovascular Exam: REGULAR RHYTHM - GI/Abdominal Exam GI & Abdominal Exam: Soft. absent: Tenderness (GTube) Assessment and Plan (1) Anemia Assessment & Plan: No source of bleeding identified on EGD Consider restarting Heparin and ASA if felt necessary under careful observation Status: Acute (2) Coronary artery arteriosclerosis Status: Acute (3) Diabetes 1.5, managed as type 2 Status: Acute (4) Esophageal stricture Assessment & Plan: Non obstructing, chronic Feeds accomplished via PEG Status: Acute
--- NOTE | 2018-10-02 11:44 | CP.PCM.PN ---
Subjective - Date & Time of Evaluation Date of Evaluation: 10/02/18 Time of Evaluation: 11:44 - Subjective Subjective: AFEBRILE VSS EVENTS NOTED, S/P EGD TODAY - FINDINGS NOTED. PT CLINICALLY SAME Objective - Vital Signs/Intake and Output Vital Signs (last 24 hours): Temp Pulse Resp BP Pulse Ox 98.0 F 70 22 133/46 L 10 L 10/02/18 11:26 10/02/18 11:26 10/02/18 11:26 10/02/18 11:26 10/02/18 11:26 Intake and Output: 10/02/18 10/02/18 06:59 18:59 Intake Total 780 Output Total 1 Balance 779 - Medications Medications: Current Medications Albuterol/Ipratropium (Duoneb 3 Mg/0.5 Mg (3 Ml) Ud) 3 ml INH RQ6 [facility] Last Admin: 10/02/18 07:30 Dose: 3 ml Aspirin (Aspirin Chewable) 81 mg PO DAILY [facility] Last Admin: 09/27/18 10:26 Dose: 81 mg Diltiazem HCl (Cardizem) 30 mg PO QID [facility] Last Admin: 10/02/18 09:41 Dose: 30 mg Heparin Sodium (Porcine) (Heparin) 5,000 units SC Q12 [facility] Last Admin: 09/27/18 22:18 Dose: 5,000 units Fluconazole (Diflucan Iv 100 Mg/50 Ml Ns) 50 mls @ 100 mls/hr IVPB DAILY [facility]; Protocol Last Admin: 10/02/18 09:44 Dose: 100 mls/hr Ceftazidime/Avibactam 1.25 gm/ (Sodium Chloride) 100 mls @ 50 mls/hr IV Q8H [facility]; Protocol Last Admin: 10/02/18 11:30 Dose: 50 mls/hr Insulin Glargine (Lantus) 20 unit SC HS [facility] Last Admin: 10/01/18 21:08 Dose: 20 units Insulin Human Regular (Novolin R) 0 unit SC Q6 [facility]; Protocol Last Admin: 10/02/18 11:30 Dose: 4 units Metoprolol Tartrate (Lopressor) 50 mg PO BID [facility] Last Admin: 10/01/18 18:06 Dose: 50 mg Multivitamins/Vitamin C (Multi-Delyn Liquid) 5 ml PO DAILY [facility] Last Admin: 10/02/18 09:41 Dose: 5 ml Pantoprazole Sodium (Protonix Susp) 40 mg PO Q12 [facility] Last Admin: 10/02/18 09:44 Dose: 40 mg Rosuvastatin Calcium (Crestor) 5 mg PO HS [facility] Last Admin: 10/01/18 21:08 Dose: 5 mg - Labs Labs: 09/30/18 06:15 09/30/18 06:16 PT 10.6 SECONDS (9.7-12.2) 09/12/18 22:42 INR 1.0 09/12/18 22:42 APTT 25 SECONDS (21-34) 09/12/18 22:42 - Constitutional Appears: No Acute Distress, Chronically Ill - Head Exam Head Exam: NORMAL INSPECTION - Eye Exam Eye Exam: EOMI, PERRL - ENT Exam ENT Exam: Normal Oropharynx - Neck Exam Neck Exam: Normal Inspection - Respiratory Exam Respiratory Exam: Decreased Breath Sounds, NORMAL BREATHING PATTERN - Cardiovascular Exam Cardiovascular Exam: REGULAR RHYTHM, +S1, +S2 - GI/Abdominal Exam GI & Abdominal Exam: Soft, Normal Bowel Sounds (+VE PEG.) - Extremities Exam Extremities Exam: Normal Capillary Refill, Pedal Edema. absent: Calf Tenderness - Neurological Exam Neurological Exam: Awake, CN II-XII Intact - Psychiatric Exam Psychiatric exam: Normal Mood - Skin Skin Exam: Normal Color, Warm Assessment and Plan (1) Altered mental status Status: Acute (2) UTI (urinary tract infection) Status: Acute (3) Pneumonia Status: Acute (4) Hypertension Status: Acute (5) Gastrostomy tube in place Status: Acute (6) Skin irritation Status: Acute - Assessment and Plan (Free Text) Plan: CONTINUE IV AVYCAZ 1.25 G EVERY 8 HOURLY 09/23/18-DAY -DAY 10 (ALLERGY; PCN. PATIENT HAS TOLERATED iv MERREM ,AND AZACTAM IN THE PAST.) CONTINUE iv DIFLUCAN 100 MG iv PIGGYBACK ONCE A DAY DAILY 09/24/18-DAY 9 PER GI. F/U CXR IN AM. REPEAT U/A AND URINE CULTURE. CASE DISCUSSED WITH STAFF. MEDICATIONS RENEWED.
[2018-10-02] MEDS: (Lantus) Insulin Glargine, Recombinant SC SCH (21:48)
[2018-10-03] MEDS: Albuterol-Ipratrop 3 mg / 0.5 (3 ml) UD INH SCH ×4 (01:35→20:17)
[2018-10-03 06:23] LABS: SQUAMOUS EPITHIAL 3 /hpf (0-5); URINE BACTERIA MOD (<OCC); URINE BILIRUBIN NEGATIVE (NEGATIVE); URINE CLARITY Turbid (Clear); URINE COLOR Yellow (YELLOW); URINE GLUCOSE (UA) 1+ mg/dL (Normal); URINE LEUKOCYTE ESTERASE 3+ Leu/uL (Negative); URINE PROTEIN 2+ mg/dL (NEGATIVE); URINE UROBILINOGEN NORMAL mg/dL (0.2-1.0)
[2018-10-03] MEDS: (Novolin R) Insulin Human Regular 100 units/ml vial SC SCH ×4 (06:38→18:16)
[2018-10-03 06:41] LABS: URINE BLOOD 1+ (NEGATIVE)
[2018-10-03] MEDS: Fluconazole IV 100mg/50 ml NS 50 ML IVPB SCH (09:00)
[2018-10-03] MEDS: Multiple Vitamins Oral Solution PO SCH (09:28)
[2018-10-03] MEDS: Pantoprazole 40 mg Susp UD PO SCH ×2 (09:28→22:30)
--- NOTE | 2018-10-03 11:13 | CP.PCM.PN ---
Subjective - Date & Time of Evaluation Date of Evaluation: 10/03/18 Time of Evaluation: 10:00 - Subjective Subjective: f/u anemia. No RB, melena, fever, SZ, CP, SOB, JACOBSEN, cough Objective - Vital Signs/Intake and Output Vital Signs (last 24 hours): Temp Pulse Resp BP Pulse Ox 98.1 F 83 18 127/46 L 100 10/03/18 08:00 10/03/18 08:00 10/03/18 08:00 10/03/18 08:00 10/03/18 08:00 Intake and Output: 10/03/18 10/03/18 06:59 18:59 Intake Total 780 Output Total 400 Balance 380 - Medications Medications: Current Medications Albuterol/Ipratropium (Duoneb 3 Mg/0.5 Mg (3 Ml) Ud) 3 ml INH RQ6 [facility] Last Admin: 10/03/18 07:20 Dose: 3 ml Aspirin (Aspirin Chewable) 81 mg PO DAILY [facility] Last Admin: 09/27/18 10:26 Dose: 81 mg Diltiazem HCl (Cardizem) 30 mg PO QID [facility] Last Admin: 10/03/18 09:28 Dose: 30 mg Heparin Sodium (Porcine) (Heparin) 5,000 units SC Q12 [facility] Last Admin: 09/27/18 22:18 Dose: 5,000 units Fluconazole (Diflucan Iv 100 Mg/50 Ml Ns) 50 mls @ 100 mls/hr IVPB DAILY [facility]; Protocol Last Admin: 10/03/18 09:00 Dose: 100 mls/hr Ceftazidime/Avibactam 1.25 gm/ (Sodium Chloride) 100 mls @ 50 mls/hr IV Q8H [facility]; Protocol Last Admin: 10/03/18 04:47 Dose: 50 mls/hr Insulin Glargine (Lantus) 20 unit SC HS [facility] Last Admin: 10/02/18 21:48 Dose: 20 units Insulin Human Regular (Novolin R) 0 unit SC Q6 [facility]; Protocol Last Admin: 10/03/18 06:38 Dose: 3 units Metoprolol Tartrate (Lopressor) 50 mg PO BID [facility] Last Admin: 10/03/18 09:28 Dose: 50 mg Multivitamins/Vitamin C (Multi-Delyn Liquid) 5 ml PO DAILY [facility] Last Admin: 10/03/18 09:28 Dose: 5 ml Pantoprazole Sodium (Protonix Susp) 40 mg PO Q12 [facility] Last Admin: 10/03/18 09:28 Dose: 40 mg Rosuvastatin Calcium (Crestor) 5 mg PO HS [facility] Last Admin: 10/02/18 21:47 Dose: 5 mg - Labs Labs: 09/30/18 06:15 09/30/18 06:16 PT 10.6 SECONDS (9.7-12.2) 09/12/18 22:42 INR 1.0 09/12/18 22:42 APTT 25 SECONDS (21-34) 09/12/18 22:42 - Constitutional Appears: Non-toxic - Respiratory Exam Respiratory Exam: Clear to Ausculation Bilateral - Cardiovascular Exam Cardiovascular Exam: RRR - GI/Abdominal Exam GI & Abdominal Exam: Soft, Normal Bowel Sounds. absent: Tenderness Additional comments: PEG - Neurological Exam Neurological Exam: Alert, Awake. absent: Oriented x3 Assessment and Plan (1) UTI (urinary tract infection) Status: Acute (2) Anemia Assessment & Plan: Hb stable. EGD - no bleeding source, Status: Acute (3) Anxiety Status: Acute (4) CAD (coronary artery disease) Status: Acute (5) Coronary artery arteriosclerosis Status: Acute (6) Diabetes 1.5, managed as type 2 Status: Acute (7) Esophageal stricture Assessment & Plan: AChalasia= no obstruction. 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
--- NOTE | 2018-10-03 11:18 | RAD ---
HISTORY: PNEUMONIA COMPARISON: Chest x-ray performed 09/25/18 TECHNIQUE: Chest, one view. FINDINGS: LUNGS: Left lower lobe consolidative opacification consistent with pneumonia. Hypoinflation. Please note that chest x-ray has limited sensitivity for the detection of pulmonary masses. PLEURA: No significant pleural effusion identified. No definite pneumothorax . CARDIOVASCULAR: Median sternotomy wires with evidence of CABG. Heart size appears top normal. Ectatic aorta with atherosclerotic calcifications. OSSEOUS STRUCTURES: Osseous demineralization. Degenerative changes. Acromioclavicular arthropathy. VISUALIZED UPPER ABDOMEN: Upper abdominal surgical clips. OTHER FINDINGS: None. IMPRESSION: Left lower lobe consolidative opacification consistent with pneumonia. Hypoinflation.
--- NOTE | 2018-10-03 20:18 | CP.PCM.PN ---
Subjective - Date & Time of Evaluation Date of Evaluation: 10/03/18 Time of Evaluation: 20:18 - Subjective Subjective: AFEBRILE, AWAKE, STABLE EGD -FINDINGS NOTED. COMFORTABLE CASE DISCUSSED WITH DR PORRAS.PMD CXR ; 10/03/18 LLL OPACITY/ HYPOINFLATION ON IV ABX /ANTIFUNGALS Objective - Vital Signs/Intake and Output Vital Signs (last 24 hours): Temp Pulse Resp BP Pulse Ox 98.5 F 73 20 128/43 L 100 10/03/18 16:00 10/03/18 16:00 10/03/18 16:00 10/03/18 16:00 10/03/18 16:00 Intake and Output: 10/03/18 10/04/18 18:59 06:59 Intake Total 680 Output Total 270 Balance 410 - Medications Medications: Current Medications Albuterol/Ipratropium (Duoneb 3 Mg/0.5 Mg (3 Ml) Ud) 3 ml INH RQ6 [facility] Last Admin: 10/03/18 20:17 Dose: 3 ml Aspirin (Aspirin Chewable) 81 mg PO DAILY [facility] Last Admin: 09/27/18 10:26 Dose: 81 mg Diltiazem HCl (Cardizem) 30 mg PO QID [facility] Last Admin: 10/03/18 17:15 Dose: 30 mg Heparin Sodium (Porcine) (Heparin) 5,000 units SC Q12 [facility] Last Admin: 09/27/18 22:18 Dose: 5,000 units Fluconazole (Diflucan Iv 100 Mg/50 Ml Ns) 50 mls @ 100 mls/hr IVPB DAILY [facility]; Protocol Last Admin: 10/03/18 09:00 Dose: 100 mls/hr Ceftazidime/Avibactam 1.25 gm/ (Sodium Chloride) 100 mls @ 50 mls/hr IV Q8H [facility]; Protocol Last Admin: 10/03/18 11:00 Dose: 50 mls/hr Insulin Glargine (Lantus) 20 unit SC HS [facility] Last Admin: 10/02/18 21:48 Dose: 20 units Insulin Human Regular (Novolin R) 0 unit SC Q6 [facility]; Protocol Last Admin: 10/03/18 18:16 Dose: 2 units Metoprolol Tartrate (Lopressor) 50 mg PO BID [facility] Last Admin: 10/03/18 17:15 Dose: 50 mg Multivitamins/Vitamin C (Multi-Delyn Liquid) 5 ml PO DAILY [facility] Last Admin: 10/03/18 09:28 Dose: 5 ml Pantoprazole Sodium (Protonix Susp) 40 mg PO Q12 [facility] Last Admin: 10/03/18 09:28 Dose: 40 mg Rosuvastatin Calcium (Crestor) 5 mg PO HS [facility] Last Admin: 10/02/18 21:47 Dose: 5 mg - Labs Labs: 09/30/18 06:15 09/30/18 06:16 PT 10.6 SECONDS (9.7-12.2) 09/12/18 22:42 INR 1.0 09/12/18 22:42 APTT 25 SECONDS (21-34) 09/12/18 22:42 - Constitutional Appears: No Acute Distress - Head Exam Head Exam: NORMAL INSPECTION - Eye Exam Eye Exam: EOMI, PERRL - ENT Exam ENT Exam: Normal Oropharynx - Neck Exam Neck Exam: Normal Inspection - Cardiovascular Exam Cardiovascular Exam: REGULAR RHYTHM, +S1, +S2 - GI/Abdominal Exam GI & Abdominal Exam: Soft, Normal Bowel Sounds (VE PEG IN PLACE) - Extremities Exam Extremities Exam: Normal Capillary Refill. absent: Calf Tenderness, Pedal Edema - Neurological Exam Neurological Exam: Awake, CN II-XII Intact - Psychiatric Exam Psychiatric exam: Normal Mood - Skin Skin Exam: Normal Color, Warm Assessment and Plan (1) Altered mental status Status: Acute (2) UTI (urinary tract infection) Status: Acute (3) Pneumonia Status: Acute (4) Hypertension Status: Acute (5) Gastrostomy tube in place Status: Acute (6) Skin irritation Status: Acute - Assessment and Plan (Free Text) Plan: CONTINUE IV AVYCAZ 1.25 G EVERY 8 HOURLY 09/23/18-DAY -DAY 11 X 3 MORE DAYS (ALLERGY; PCN. PATIENT HAS TOLERATED iv MERREM ,AND AZACTAM IN THE PAST.) CONTINUE iv DIFLUCAN 100 MG iv PIGGYBACK ONCE A DAY DAILY 09/24/18-DAY 10. PER GI. REPEAT U/A AND URINE CULTURE. IF -VE CAN DC ANTIFUNGALS CASE DISCUSSED WITH STAFF /PMD
--- NOTE | 2018-10-03 20:20 | CP.PCM.PN ---
Subjective - Date & Time of Evaluation Date of Evaluation: 10/03/18 Time of Evaluation: 20:20 - Subjective Subjective: Patient is currently more awake and responding. She is not in any distress. Tolerating the PEG tube feeding. Patient seen by infectious disease. Clinically stable. 88-year-old female with a history of multiple medical problems including CAD, status post CABG, COPD hypertension hypercholesterolemia diabetes admitted with the severe sepsis and septicemia and GI bleed. Status post transfusion. Currently on antibiotic. We will plan for discharge tomorrow Objective - Vital Signs/Intake and Output Vital Signs (last 24 hours): Temp Pulse Resp BP Pulse Ox 98.5 F 73 20 128/43 L 100 10/03/18 16:00 10/03/18 16:00 10/03/18 16:00 10/03/18 16:00 10/03/18 16:00 Intake and Output: 10/03/18 10/04/18 18:59 06:59 Intake Total 680 Output Total 270 Balance 410 - Medications Medications: Current Medications Albuterol/Ipratropium (Duoneb 3 Mg/0.5 Mg (3 Ml) Ud) 3 ml INH RQ6 [facility] Last Admin: 10/03/18 20:17 Dose: 3 ml Aspirin (Aspirin Chewable) 81 mg PO DAILY [facility] Last Admin: 09/27/18 10:26 Dose: 81 mg Diltiazem HCl (Cardizem) 30 mg PO QID [facility] Last Admin: 10/03/18 17:15 Dose: 30 mg Heparin Sodium (Porcine) (Heparin) 5,000 units SC Q12 [facility] Last Admin: 09/27/18 22:18 Dose: 5,000 units Fluconazole (Diflucan Iv 100 Mg/50 Ml Ns) 50 mls @ 100 mls/hr IVPB DAILY [facility]; Protocol Last Admin: 10/03/18 09:00 Dose: 100 mls/hr Ceftazidime/Avibactam 1.25 gm/ (Sodium Chloride) 100 mls @ 50 mls/hr IV Q8H [facility]; Protocol Last Admin: 10/03/18 11:00 Dose: 50 mls/hr Insulin Glargine (Lantus) 20 unit SC HS [facility] Last Admin: 10/02/18 21:48 Dose: 20 units Insulin Human Regular (Novolin R) 0 unit SC Q6 [facility]; Protocol Last Admin: 10/03/18 18:16 Dose: 2 units Metoprolol Tartrate (Lopressor) 50 mg PO BID [facility] Last Admin: 10/03/18 17:15 Dose: 50 mg Multivitamins/Vitamin C (Multi-Delyn Liquid) 5 ml PO DAILY [facility] Last Admin: 10/03/18 09:28 Dose: 5 ml Pantoprazole Sodium (Protonix Susp) 40 mg PO Q12 [facility] Last Admin: 10/03/18 09:28 Dose: 40 mg Rosuvastatin Calcium (Crestor) 5 mg PO HS [facility] Last Admin: 10/02/18 21:47 Dose: 5 mg - Labs Labs: 09/30/18 06:15 09/30/18 06:16 PT 10.6 SECONDS (9.7-12.2) 09/12/18 22:42 INR 1.0 09/12/18 22:42 APTT 25 SECONDS (21-34) 09/12/18 22:42
--- NOTE | 2018-10-03 20:20 | CP.PCM.PN ---
Subjective - Date & Time of Evaluation Date of Evaluation: 10/02/18 Time of Evaluation: 20:19 - Subjective Subjective: Patient had a upper endoscopy nonspecific findings. Patient is otherwise comfortable not in any distress. Vital signs are stable. Tolerating the feeding. We will continue the current treatment. We will discuss with the patient's family daughter regarding the discharge plan. Clinically stable Objective - Vital Signs/Intake and Output Vital Signs (last 24 hours): Temp Pulse Resp BP Pulse Ox 98.5 F 73 20 128/43 L 100 10/03/18 16:00 10/03/18 16:00 10/03/18 16:00 10/03/18 16:00 10/03/18 16:00 Intake and Output: 10/03/18 10/04/18 18:59 06:59 Intake Total 680 Output Total 270 Balance 410 - Medications Medications: Current Medications Albuterol/Ipratropium (Duoneb 3 Mg/0.5 Mg (3 Ml) Ud) 3 ml INH RQ6 [facility] Last Admin: 10/03/18 20:17 Dose: 3 ml Aspirin (Aspirin Chewable) 81 mg PO DAILY [facility] Last Admin: 09/27/18 10:26 Dose: 81 mg Diltiazem HCl (Cardizem) 30 mg PO QID [facility] Last Admin: 10/03/18 17:15 Dose: 30 mg Heparin Sodium (Porcine) (Heparin) 5,000 units SC Q12 [facility] Last Admin: 09/27/18 22:18 Dose: 5,000 units Fluconazole (Diflucan Iv 100 Mg/50 Ml Ns) 50 mls @ 100 mls/hr IVPB DAILY [facility]; Protocol Last Admin: 10/03/18 09:00 Dose: 100 mls/hr Ceftazidime/Avibactam 1.25 gm/ (Sodium Chloride) 100 mls @ 50 mls/hr IV Q8H [facility]; Protocol Last Admin: 10/03/18 11:00 Dose: 50 mls/hr Insulin Glargine (Lantus) 20 unit SC HS [facility] Last Admin: 10/02/18 21:48 Dose: 20 units Insulin Human Regular (Novolin R) 0 unit SC Q6 [facility]; Protocol Last Admin: 10/03/18 18:16 Dose: 2 units Metoprolol Tartrate (Lopressor) 50 mg PO BID [facility] Last Admin: 10/03/18 17:15 Dose: 50 mg Multivitamins/Vitamin C (Multi-Delyn Liquid) 5 ml PO DAILY [facility] Last Admin: 10/03/18 09:28 Dose: 5 ml Pantoprazole Sodium (Protonix Susp) 40 mg PO Q12 [facility] Last Admin: 10/03/18 09:28 Dose: 40 mg Rosuvastatin Calcium (Crestor) 5 mg PO HS [facility] Last Admin: 10/02/18 21:47 Dose: 5 mg - Labs Labs: 09/30/18 06:15 09/30/18 06:16 PT 10.6 SECONDS (9.7-12.2) 09/12/18 22:42 INR 1.0 09/12/18 22:42 APTT 25 SECONDS (21-34) 09/12/18 22:42
[2018-10-03] MEDS: (Lantus) Insulin Glargine, Recombinant SC SCH (22:29)
[2018-10-04] MEDS: (Novolin R) Insulin Human Regular 100 units/ml vial SC SCH ×4 (00:23→18:23)
[2018-10-04] MEDS: Albuterol-Ipratrop 3 mg / 0.5 (3 ml) UD INH SCH ×4 (02:38→19:22)
[2018-10-04 06:26] LABS: BASO # 0.1 K/uL (0.0-0.2); BASO % 0.8 % (0.0-2.0); EOS # 0.4 K/uL (0.0-0.7); EOS % 3.2 % (0.0-4.0); HEMOGLOBIN 12.1 g/dL (11.0-16.0); LYMPH # 1.5 K/uL (1.0-4.3); LYMPH % 12.7 % (20.0-40.0); MEAN CELL VOLUME 92.5 fL (81.0-99.0); MEAN CORPUSCULAR HEMOGLOBIN 30.1 pg (27.0-31.0); MEAN CORPUSCULAR HGB CONC 32.5 g/dL (33.0-37.0); MEAN PLATELET VOLUME 7.6 fL (7.2-11.7); MONO # 0.8 K/uL (0.0-0.8); MONO % 6.7 % (0.0-10.0); NEUT # 9.1 K/uL (1.8-7.0); NEUT % 76.6 % (50.0-75.0); RBC 4.02 Mil/uL (3.80-5.20); RED CELL DISTRIBUTION WIDTH 15.9 % (11.5-14.5); WHITE BLOOD COUNT 11.9 K/uL (4.8-10.8)
[2018-10-04 06:43] LABS: ALB/GLOB RATIO 1.4 (1.0-2.1); ALT/SGPT 15 U/L (9-52); AST/SGOT 15 U/L (14-36); BLOOD UREA NITROGEN 21 mg/dL (7-17); CALCIUM 10.1 mg/dl (8.6-10.4); GFR NON-AFRICAN AMERICAN > 60
[2018-10-04] MEDS: Multiple Vitamins Oral Solution PO SCH (09:25)
[2018-10-04] MEDS: Pantoprazole 40 mg Susp UD PO SCH ×2 (09:25→22:24)
--- NOTE | 2018-10-04 11:22 | CP.PCM.PN ---
Subjective - Date & Time of Evaluation Date of Evaluation: 10/04/18 Time of Evaluation: 11:21 - Subjective Subjective: Stable Hgb EGD- chronic esoph stricture. GTube No further GI workup Objective - Vital Signs/Intake and Output Vital Signs (last 24 hours): Temp Pulse Resp BP Pulse Ox 98.5 F 75 20 114/56 L 97 10/04/18 09:00 10/04/18 09:00 10/04/18 09:00 10/04/18 09:00 10/04/18 09:00 Intake and Output: 10/04/18 10/04/18 06:59 18:59 Intake Total 580 Output Total 2 Balance 578 - Medications Medications: Current Medications Albuterol/Ipratropium (Duoneb 3 Mg/0.5 Mg (3 Ml) Ud) 3 ml INH RQ6 [facility] Last Admin: 10/04/18 07:37 Dose: 3 ml Aspirin (Aspirin Chewable) 81 mg PO DAILY [facility] Last Admin: 10/04/18 09:25 Dose: 81 mg Diltiazem HCl (Cardizem) 30 mg PO QID [facility] Last Admin: 10/04/18 09:25 Dose: 30 mg Fluconazole (Diflucan) 150 mg PO DAILY [facility]; Protocol Last Admin: 10/04/18 09:56 Dose: 150 mg Heparin Sodium (Porcine) (Heparin) 5,000 units SC Q12 [facility] Last Admin: 10/04/18 09:25 Dose: 5,000 units Insulin Glargine (Lantus) 20 unit SC [facility] Last Admin: 10/03/18 22:29 Dose: 20 units Insulin Human Regular (Novolin R) 0 unit SC Q6 [facility]; Protocol Last Admin: 10/04/18 06:36 Dose: 3 units Metoprolol Tartrate (Lopressor) 50 mg PO BID [facility] Last Admin: 10/04/18 09:25 Dose: 50 mg Multivitamins/Vitamin C (Multi-Delyn Liquid) 5 ml PO DAILY [facility] Last Admin: 10/04/18 09:25 Dose: 5 ml Pantoprazole Sodium (Protonix Susp) 40 mg PO Q12 [facility] Last Admin: 10/04/18 09:25 Dose: 40 mg Rosuvastatin Calcium (Crestor) 5 mg PO HS [facility] Last Admin: 10/03/18 22:28 Dose: 5 mg - Labs Labs: 10/04/18 06:23 10/04/18 06:23 PT 10.6 SECONDS (9.7-12.2) 09/12/18 22:42 INR 1.0 09/12/18 22:42 APTT 25 SECONDS (21-34) 09/12/18 22:42 - Constitutional Appears: Chronically Ill - Respiratory Exam Respiratory Exam: NORMAL BREATHING PATTERN - Cardiovascular Exam Cardiovascular Exam: REGULAR RHYTHM - GI/Abdominal Exam GI & Abdominal Exam: Soft. absent: Tenderness (GTube) Assessment and Plan (1) Anemia Assessment & Plan: stable post transfusion Status: Acute (2) Coronary artery arteriosclerosis Status: Acute (3) Diabetes 1.5, managed as type 2 Status: Acute (4) Esophageal stricture Assessment & Plan: On GT feeds. Stable Status: Acute
[2018-10-04] MEDS: (Lantus) Insulin Glargine, Recombinant SC SCH (22:54)
[2018-10-05] MEDS: (Novolin R) Insulin Human Regular 100 units/ml vial SC SCH ×3 (00:21→12:17)
[2018-10-05] MEDS: Albuterol-Ipratrop 3 mg / 0.5 (3 ml) UD INH SCH ×3 (01:50→13:35)
[2018-10-05] MEDS: Multiple Vitamins Oral Solution PO SCH (09:15)
[2018-10-05] MEDS: Pantoprazole 40 mg Susp UD PO SCH (09:16)
[2018-10-05 10:15] VITALS: O2SAT 95
--- NOTE | 2018-10-05 11:33 | CP.PCM.PN ---
Subjective - Date & Time of Evaluation Date of Evaluation: 10/04/18 Time of Evaluation: 11:33 - Subjective Subjective: Patient is awake and responding, not in any distress, no recent fever noted. I spoke to the infectious disease. We will discontinue all the antibiotic. She will continue the fluconazole for 1 more week. On examination: Vital signs are stable Chest good air entry regular HSl nontender abdomen no pedal edema Patient is a 88-year-old female admitted with a severe sepsis, septic shock, also rapid ventricular rate with the atrial flutter and fibrillation. CAD COPD hypertension will monitor. I spoke to the family. Patient's daughter I explained that possible discharge plan tomorrow Objective - Vital Signs/Intake and Output Vital Signs (last 24 hours): Temp Pulse Resp BP Pulse Ox 98.4 F 73 20 158/76 H 95 10/05/18 10:00 10/05/18 10:00 10/05/18 10:00 10/05/18 10:00 10/05/18 10:00 Intake and Output: 10/05/18 10/05/18 06:59 18:59 Intake Total 240 Balance 240 - Medications Medications: Current Medications Albuterol/Ipratropium (Duoneb 3 Mg/0.5 Mg (3 Ml) Ud) 3 ml INH RQ6 [facility] Last Admin: 10/05/18 07:40 Dose: 3 ml Aspirin (Aspirin Chewable) 81 mg PO DAILY [facility] Last Admin: 10/05/18 09:13 Dose: 81 mg Diltiazem HCl (Cardizem) 30 mg PO QID [facility] Last Admin: 10/05/18 09:14 Dose: 30 mg Fluconazole (Diflucan) 150 mg PO DAILY [facility]; Protocol Last Admin: 10/05/18 09:15 Dose: 150 mg Heparin Sodium (Porcine) (Heparin) 5,000 units SC Q12 [facility] Last Admin: 10/05/18 09:15 Dose: 5,000 units Insulin Glargine (Lantus) 20 unit SC HS [facility] Last Admin: 10/04/18 22:54 Dose: 20 units Insulin Human Regular (Novolin R) 0 unit SC Q6 [facility]; Protocol Last Admin: 10/05/18 06:37 Dose: 2 units Metoprolol Tartrate (Lopressor) 50 mg PO BID [facility] Last Admin: 10/05/18 09:15 Dose: 50 mg Multivitamins/Vitamin C (Multi-Delyn Liquid) 5 ml PO DAILY [facility] Last Admin: 10/05/18 09:15 Dose: 5 ml Pantoprazole Sodium (Protonix Susp) 40 mg PO Q12 [facility] Last Admin: 10/05/18 09:16 Dose: 40 mg Rosuvastatin Calcium (Crestor) 5 mg PO HS [facility] Last Admin: 10/04/18 22:22 Dose: 5 mg - Labs Labs: 10/04/18 06:23 10/04/18 06:23 PT 10.6 SECONDS (9.7-12.2) 09/12/18 22:42 INR 1.0 09/12/18 22:42 APTT 25 SECONDS (21-34) 09/12/18 22:42
--- NOTE | 2018-10-05 11:34 | CP.PCM.DIS ---
Provider - Provider Date of Admission: 09/13/18 03:06 Attending physician: Luis Manuel Patel MD Consults: 09/13/18 18:53 Wound Care [Nursing Referral for Wound Care] Routine Comment: Physician Instructions: Reason For Exam: back rash, skin tear on the sacrum 09/15/18 17:22 Infectious Disease Consult Routine Comment: Consulting Provider: Efrem Cordova Consulting Physician: Efrem Cordova Reason for Consult: VRE 09/16/18 12:50 Urology Consult Routine Comment: Consulting Provider: Abigail Talbot Consulting Physician: Abigail Talbot Reason for Consult: UTI and retension 09/29/18 10:59 Gastroenterology Consult Routine Comment: Consulting Provider: Manish Dye Consulting Physician: Manish Dye Reason for Consult: gib Time Spent in preparation of Discharge (in minutes): 45 Hospital Course - Lab Results Lab Results: Micro Results 10/03/18 06:04 Urine,Gregory Urine Culture - Preliminary Enterococcus Faecium 09/25/18 05:45 Blood Blood Culture - Final NO GROWTH AFTER 5 DAYS 09/25/18 05:45 Blood Gram Stain - Final TEST NOT PERFORMED 09/25/18 07:27 Urine Random Urine Culture - Final Yeast Species 09/25/18 02:51 Naris MRSA Culture (Admit) - Final MRSA NOT DETECTED 09/17/18 07:21 Urine,Clean Catch Urine Culture - Final Klebsiella Pneumoniae Ssp Pneu Yeast Species 09/12/18 22:15 Blood Blood Culture - Final NO GROWTH AFTER 5 DAYS 09/12/18 22:15 Blood Gram Stain - Final TEST NOT PERFORMED 09/13/18 00:22 Blood Blood Culture - Final NO GROWTH AFTER 5 DAYS 09/13/18 00:22 Blood Gram Stain - Final TEST NOT PERFORMED 09/13/18 02:20 Urine Random Urine Culture - Final Vancomycin Resistant E.faecium Most Recent Lab Values WBC 11.9 K/uL (4.8-10.8) H 10/04/18 06:23 RBC 4.02 Mil/uL (3.80-5.20) 10/04/18 06:23 Hgb 12.1 g/dL (11.0-16.0) 10/04/18 06:23 Hct 37.2 % (34.0-47.0) 10/04/18 06:23 MCV 92.5 fL (81.0-99.0) 10/04/18 06:23 MCH 30.1 pg (27.0-31.0) 10/04/18 06:23 MCHC 32.5 g/dL (33.0-37.0) L 10/04/18 06:23 RDW 15.9 % (11.5-14.5) H 10/04/18 06:23 Plt Count 330 K/uL (130-400) D 10/04/18 06:23 MPV 7.6 fL (7.2-11.7) 10/04/18 06:23 Neut % (Auto) 76.6 % (50.0-75.0) H 10/04/18 06:23 Lymph % (Auto) 12.7 % (20.0-40.0) L 10/04/18 06:23 Edgar % (Auto) 6.7 % (0.0-10.0) 10/04/18 06:23 Eos % (Auto) 3.2 % (0.0-4.0) 10/04/18 06:23 Baso % (Auto) 0.8 % (0.0-2.0) 10/04/18 06:23 Neut # (Auto) 9.1 K/uL (1.8-7.0) H 10/04/18 06:23 Lymph # (Auto) 1.5 K/uL (1.0-4.3) 10/04/18 06:23 Edgar # (Auto) 0.8 K/uL (0.0-0.8) 10/04/18 06:23 Eos # (Auto) 0.4 K/uL (0.0-0.7) 10/04/18 06:23 Baso # (Auto) 0.1 K/uL (0.0-0.2) 10/04/18 06:23 Neutrophils % (Manual) 70 % (50-75) 09/29/18 06:11 Band Neutrophils % 5 % (0-2) H 09/29/18 06:11 Lymphocytes % (Manual) 12 % (20-40) L 09/29/18 06:11 Monocytes % (Manual) 9 % (0-10) 09/29/18 06:11 Eosinophils % (Manual) 4 % (0-4) 09/29/18 06:11 Metamyelocytes % 2 % (0-0) H 09/28/18 05:50 Myelocytes % 3 % (0-0) H 09/28/18 05:50 Nucleated RBC % 2 % (0-0) H 09/29/18 06:11 Differential Comment 09/24/18 08:07 Toxic Granulation Present 09/23/18 07:10 Platelet Estimate Normal (NORMAL) 09/29/18 06:11 RBC Morphology Normal 09/17/18 07:05 Polychromasia Slight 09/14/18 12:05 Hypochromasia (manual) Slight 09/26/18 06:13 Poikilocytosis (manual Slight 09/29/18 06:11 Basophilic Stippling Slight 09/14/18 12:05 Anisocytosis (manual) Slight 09/29/18 06:11 PT 10.6 SECONDS (9.7-12.2) 09/12/18 22:42 INR 1.0 09/12/18 22:42 APTT 25 SECONDS (21-34) 09/12/18 22:42 pO2 33 mm/Hg (30-55) 09/13/18 03:35 VBG pH 7.35 (7.32-7.43) 09/13/18 03:35 VBG pCO2 45 mmHg (40-60) 09/13/18 03:35 VBG HCO3 23.0 mmol/L 09/13/18 03:35 VBG Total CO2 26.2 mmol/L (22-28) 09/13/18 03:35 VBG O2 Sat (Calc) 64.3 % (40-65) 09/13/18 03:35 VBG Base Excess -1.1 mmol/L (0.0-2.0) L 09/13/18 03:35 VBG Potassium 4.4 mmol/L (3.6-5.2) 09/13/18 03:35 Sodium 133.0 mmol/l (132-148) 09/13/18 03:35 Chloride 99.0 mmol/L (98-107) 09/13/18 03:35 Glucose 229 mg/dl (65-105) H 09/13/18 03:35 Lactate 4.1 mmol/L (0.7-2.1) H* 09/13/18 03:35 Crit Value Called To Lindsey gil 09/13/18 03:35 Crit Value Called By Allison rt 09/13/18 03:35 Crit Value Read Back Y 09/13/18 03:35 Blood Gas Notified Time 352 09/13/18 03:35 Sodium 137 mmol/L (132-148) 10/04/18 06:23 Potassium 4.3 mmol/L (3.6-5.2) 10/04/18 06:23 Chloride 98 mmol/L (98-107) 10/04/18 06:23 Carbon Dioxide 31 mmol/L (22-30) H 10/04/18 06:23 Anion Gap 12 (10-20) 10/04/18 06:23 BUN 21 mg/dL (7-17) H 10/04/18 06:23 Creatinine 0.5 mg/dL (0.7-1.2) L 10/04/18 06:23 Est GFR ( Amer) > 60 10/04/18 06:23 Est GFR (Non-Af Amer) > 60 10/04/18 06:23 POC Glucose (mg/dL) 180 mg/dL (65-110) H 10/02/18 05:19 Random Glucose 201 mg/dL (65-105) H D 10/04/18 06:23 Calcium 10.1 mg/dl (8.6-10.4) 10/04/18 06:23 Phosphorus 2.7 mg/dL (2.5-4.5) 10/04/18 06:23 Magnesium 1.7 mg/dL (1.6-2.3) 10/04/18 06:23 Total Bilirubin 0.9 mg/dL (0.2-1.3) 10/04/18 06:23 Direct Bilirubin 0.0 mg/dL (0.0-0.4) 09/17/18 07:05 AST 15 U/L (14-36) 10/04/18 06:23 ALT 15 U/L (9-52) 10/04/18 06:23 Alkaline Phosphatase 71 U/L (38-126) 10/04/18 06:23 Total Protein 6.9 g/dL (6.3-8.3) 10/04/18 06:23 Albumin 4.0 g/dL (3.5-5.0) 10/04/18 06:23 Globulin 2.9 gm/dL (2.2-3.9) 10/04/18 06:23 Albumin/Globulin Ratio 1.4 (1.0-2.1) 10/04/18 06:23 Lipase 157 U/L (23-300) 09/12/18 22:42 Venous Blood Potassium 4.4 mmol/L (3.6-5.2) 09/13/18 03:35 Urine Color Yellow (YELLOW) 10/03/18 06:00 Urine Clarity Turbid (Clear) 10/03/18 06:00 Urine pH 7.0 (5.0-8.0) 10/03/18 06:00 Ur Specific Volin 1.013 (1.003-1.030) 10/03/18 06:00 Urine Protein 2+ mg/dL (NEGATIVE) H 10/03/18 06:00 Urine Glucose (UA) 1+ mg/dL (Normal) 10/03/18 06:00 Urine Ketones Negative mg/dL (NEGATIVE) 10/03/18 06:00 Urine Blood 1+ (NEGATIVE) H 10/03/18 06:00 Urine Nitrate Negative (NEGATIVE) 10/03/18 06:00 Urine Bilirubin Negative (NEGATIVE) 10/03/18 06:00 Urine Urobilinogen Normal mg/dL (0.2-1.0) 10/03/18 06:00 Ur Leukocyte Esterase 3+ Sylvie/uL (Negative) H 10/03/18 06:00 Urine WBC (Auto) 734 /hpf (0-5) H 10/03/18 06:00 Urine RBC (Auto) 14 /hpf (0-3) H 10/03/18 06:00 Ur Squamous Epith Cells 3 /hpf (0-5) 10/03/18 06:00 Urine Bacteria Mod (<OCC) H 10/03/18 06:00 Urine Yeast (Budding) Few /hpf (NEGATIVE) H 10/03/18 06:00 Stool Occult Blood Positive (NEGATIVE) H 09/28/18 21:13 Blood Type A POSITIVE 09/28/18 07:06 Antibody Screen Negative 09/28/18 07:06 - Hospital Course Hospital Course: Chief complaint Patient's daughter called me yesterday with the mom is not doing well, more lethargic, poorly responding, elevated blood sugar, but later night she called the ambulance, brought to the emergency room. HPI: 87-year-old female history of high blood pressure, COPD, CAD, CABG, high cholesterol, history of osteoporosis pneumonia or tracheostomy aspiration pneumonia GI bleed multiple hospitalization with recurrent urinary tract infection brought in by the ambulance today because of the symptoms of lethargy.. She was having increasing lethargy, also according to the patient's a daughter yesterday she was not feeling well. She started responding very poorly She was not making much urine. Blood sugar was also noted to be a very highly elevated. So patient is not a very concerned and called the ambulance got to the emergency room Past medical history: Hypertension, hyperlipidemia, CAD, COPD, osteoporosis osteoarthritis recurrent pneumonia GI bleed and duodenal ulcer Surgical history: CABG x2, tracheostomy, PEG tube, pacemaker, multiple esophageal dilatation for achalasia cardia Allergies multiple allergies noted from the chart Review of system: Noted from the chart. Patient is having pain in the peg site. No headache. Cough minimal Tolerating the feeding On examination: Vital signs somewhat unstable at this time. Patient is somewhat lethargic nonverbal. No sacral decubiti noted Chest good air entry Regular heart sounds noted Abdomen soft. PEG tube noted. Leg swelling negative Labs reviewed Elevated WBC noted. Also elevated lactic acid level noted. Blood sugar is elevated Assessment and recognition: 88-year-old female with a history of multiple problems including hypertension, COPD, CAD, CABG, hypercholesterolemia, history of osteoporosis pneumonia tracheostomy aspiration pneumonia GI bleed admitted with a possible urinary tract infection. Reinsertion done. We will continue the feeding tube. PEG tube feeding. DVT GI prophylaxis. Antibiotic and will follow the patient patient possibly has a similar problem including uncontrolled diabetes, and diabetes related complication. Severe dehydration. Sepsis. Pneumonia likely. We will start the patient on antibiotic. Bronchodilators. We will follow the patient Course in the hospital: Patient was initially admitted to the hospital with uncontrolled diabetes, and diabetic related complication with a severe dehydration and possible hypero smolar state. Underlying severe sepsis possible also patient started on intravenous IV antibiotic with Avelox and IV fluid. Patient slowly improved over the course of next few days. Initial blood cultures were negative, but the urine culture started showing evidence of vancomycin resistant enterococcus infection, And also there was a Klebsiella pneumoniae. Infectious disease evaluation was called in. Patient was initially given vancomycin, moxifloxacin, Zyvox, meropenem and also AVycaz by . Patient also developed fungal infection in the urine. Started on intravenous Diflucan. Over the course of next few days patient was doing well. Attempted to do a cystoscopy, but the patient developed atrial flutter tachycardia, she was transferred to ICU under closely monitored in ICU. Patient improved markedly from the. Patient is currently stable she will be discharged home she will follow-up as an outpatient. Final diagnosis: Acute severe sepsis, dehydration, diabetes uncontrolled. Urinary tract infection. VRE urosepsis. Atrial flutter tachycardia. Superficial fungal infection. Diabetes hypertension hypercholesterolemia and CAD Discharge Exam - Head Exam Head Exam: NORMAL INSPECTION Discharge Plan - Discharge Medications Prescriptions: Fluconazole [Diflucan] 150 mg PO DAILY #7 tab Pantoprazole [Protonix Susp] 40 mg PO Q12 #60 packet - Follow Up Plan Condition: FAIR Disposition: DISCHARGED TO HOME CARE
[2018-10-05 15:29] VITALS: BP 116/50; PULSE 98; RESP 18; TEMP 98.7
--- NOTE | 2018-10-07 22:01 | CP.PCM.PN ---
Subjective - Date & Time of Evaluation Date of Evaluation: 09/20/18 Time of Evaluation: 22:01 - Subjective Subjective: Patient seen by infectious disease specialist. PICC line was done already. Currently on IV antibiotic. Patient is clinically stable. Vital signs temperature 98.8 pulse 110 respiration 18 blood pressure 138/90 saturation is 98% clinical examination is unremarkable chest good air entry regular hs nontender abdomen Patient is a 88-year-old female admitted with the record urinary tract infection and urosepsis. Clinically stable. We will continue IV antibiotic. Urology evaluation Objective - Vital Signs/Intake and Output Vital Signs (last 24 hours): Temp Pulse Resp BP Pulse Ox 98.7 F 98 H 18 116/50 L 95 10/05/18 14:00 10/05/18 14:00 10/05/18 14:00 10/05/18 14:00 10/05/18 14:00 - Labs Labs: 10/04/18 06:23 10/04/18 06:23 PT 10.6 SECONDS (9.7-12.2) 09/12/18 22:42 INR 1.0 09/12/18 22:42 APTT 25 SECONDS (21-34) 09/12/18 22:42
--- NOTE | 2018-10-07 22:02 | CP.PCM.PN ---
Subjective - Date & Time of Evaluation Date of Evaluation: 09/22/18 Time of Evaluation: 22:02 - Subjective Subjective: Patient seen by infectious disease specialist. PICC line was done already. Currently on IV antibiotic. Patient is clinically stable. Vital signs temperature 98.8 pulse 110 respiration 18 blood pressure 138/90 saturation is 98% clinical examination is unremarkable chest good air entry regular hs nontender abdomen Patient is a 88-year-old female admitted with the record urinary tract infection and urosepsis. Clinically stable. We will continue IV antibiotic. Urology evaluation Objective - Vital Signs/Intake and Output Vital Signs (last 24 hours): Temp Pulse Resp BP Pulse Ox 98.7 F 98 H 18 116/50 L 95 10/05/18 14:00 10/05/18 14:00 10/05/18 14:00 10/05/18 14:00 10/05/18 14:00 - Labs Labs: 10/04/18 06:23 10/04/18 06:23 PT 10.6 SECONDS (9.7-12.2) 09/12/18 22:42 INR 1.0 09/12/18 22:42 APTT 25 SECONDS (21-34) 09/12/18 22:42
--- NOTE | 2018-10-07 22:02 | CP.PCM.PN ---
Subjective - Date & Time of Evaluation Date of Evaluation: 09/21/18 Time of Evaluation: 22:02 - Subjective Subjective: Patient seen by infectious disease specialist. PICC line was done already. Currently on IV antibiotic. Patient is clinically stable. Vital signs temperature 98.8 pulse 110 respiration 18 blood pressure 138/90 saturation is 98% clinical examination is unremarkable chest good air entry regular hs nontender abdomen Patient is a 88-year-old female admitted with the record urinary tract infection and urosepsis. Clinically stable. We will continue IV antibiotic. Urology evaluation possible cysto Objective - Vital Signs/Intake and Output Vital Signs (last 24 hours): Temp Pulse Resp BP Pulse Ox 98.7 F 98 H 18 116/50 L 95 10/05/18 14:00 10/05/18 14:00 10/05/18 14:00 10/05/18 14:00 10/05/18 14:00 - Labs Labs: 10/04/18 06:23 10/04/18 06:23 PT 10.6 SECONDS (9.7-12.2) 09/12/18 22:42 INR 1.0 09/12/18 22:42 APTT 25 SECONDS (21-34) 09/12/18 22:42
== END 2018-10-05 16:04 | disposition home health service (06) | DRG 871 ==
LOC: C.ER 21:07 → C.9E 09-13 03:06 → C.5S 09-13 07:01 → C.3T 09-13 22:44 → C.9S 09-24 11:23 → C.6T 09-24 13:51 → C.9I 09-24 14:32
PROVIDERS: ADMIT Internal Medicine; ATTEND Internal Medicine
PROC: 3E0G76Z Introduction of Nutritional Substance into Upper GI, Via Natural or Artificial Opening (ICD-10-PCS; 2018-09-13)
PROC: 0DJ08ZZ Inspection of Upper Intestinal Tract, Via Natural or Artificial Opening Endoscopic (ICD-10-PCS; principal; 2018-10-01 13:37)
DX: A41.9 Sepsis, unspecified organism (principal); J18.9 Pneumonia, unspecified organism; G92 Toxic encephalopathy; J96.20 Acute and chronic respiratory failure, unspecified whether with hypoxia or hypercapnia; J44.0 Chronic obstructive pulmonary disease with (acute) lower respiratory infection; N39.0 Urinary tract infection, site not specified; I48.92 Unspecified atrial flutter; J84.9 Interstitial pulmonary disease, unspecified; D64.9 Anemia, unspecified; E11.65 Type 2 diabetes mellitus with hyperglycemia; E78.00 Pure hypercholesterolemia, unspecified; E78.5 Hyperlipidemia, unspecified; E86.0 Dehydration; F41.9 Anxiety disorder, unspecified; F03.90 Unspecified dementia, unspecified severity, without behavioral disturbance, psychotic disturbance, mood disturbance, and anxiety; I11.0 Hypertensive heart disease with heart failure; I25.10 Atherosclerotic heart disease of native coronary artery without angina pectoris; I45.10 Unspecified right bundle-branch block; I48.91 Unspecified atrial fibrillation; I50.9 Heart failure, unspecified; I77.819 Aortic ectasia, unspecified site; K21.9 Gastro-esophageal reflux disease without esophagitis; K22.0 Achalasia of cardia; K22.2 Esophageal obstruction; K76.0 Fatty (change of) liver, not elsewhere classified; M06.9 Rheumatoid arthritis, unspecified; M81.0 Age-related osteoporosis without current pathological fracture; Z53.8 Procedure and treatment not carried out for other reasons; R32 Unspecified urinary incontinence; Z16.24 Resistance to multiple antibiotics; Z87.01 Personal history of pneumonia (recurrent); Z87.11 Personal history of peptic ulcer disease; Z87.440 Personal history of urinary (tract) infections; Z87.891 Personal history of nicotine dependence; Z93.1 Gastrostomy status; Z95.0 Presence of cardiac pacemaker; Z95.1 Presence of aortocoronary bypass graft; Z95.5 Presence of coronary angioplasty implant and graft

== ENCOUNTER 2018-10-22 11:31 | Inpatient (IN) | payer MEDICARE ==
[2018-10-22 11:32] VITALS: BMI 23.0
--- NOTE | 2018-10-22 12:23 | C.PDOC ---
History Of Present Illness LIMITED DUE TO CLIN COND PER NH, REDNESS AROUND PEG TUBE SITE UNK DURATION. NO FEVER. NO REPORTED PEG MALFXN Past medical history: Hypertension, hyperlipidemia, CAD, COPD, osteoporosis osteoarthritis recurrent pneumonia GI bleed and duodenal ulcer Surgical history: CABG x2, tracheostomy, PEG tube, pacemaker, multiple esophageal dilatation for achalasia cardia ROS UTO EXAM NONTOXIC NARD SKIN +LOCAL ERYTHEMA PEG SITE. NONTEND. ABD SOFT NT ND NO R/G +PEG IN PLACE NARD <Nikki Ewing - Last Filed: 10/22/18 13:13> History Per: Patient History/Exam Limitations: no limitations <Nikki Ewing - Last Filed: 10/22/18 13:13> <Stacy Orozco - Last Filed: 10/31/18 16:52> Time Seen by Provider: 10/22/18 12:21 Chief Complaint (Nursing): Abnormal Skin Integrity Past Medical History Reviewed: Historical Data, Nursing Documentation, Vital Signs Vital Signs: Last Vital Signs Temp 98.1 F 10/22/18 11:42 Pulse 119 H 10/22/18 11:42 Resp 24 10/22/18 11:50 BP 163/82 H 10/22/18 11:42 Pulse Ox 96 10/22/18 11:50 - Medical History PMH: Anxiety, Arthritis, Bronchitis, CAD, Cardia Arrhythmia, CHF, COPD, Diabetes, GERD (esophageal stricture), HTN, Hypercholesterolemia, Osteoporosis, Pneumonia, Rheumatoid Arthritis Denies: Deep Vein Thrombosis, HIV, Chronic Kidney Disease, Seizures, Sexually Transmitted Disease Surgical History: CABG (12/16/1991), Carotid Endarterectomy (06/13/05), Coronary Stent, Pacemaker (left) - [facility] Procedures ASSISTANCE WITH RESPIRATORY VENTILATION, >96 HRS, CPAP (05/07/18) BYPASS TRACHEA TO CUTANEOUS WITH TRACH DEV, PERC APPROACH (11/09/17) CHANGE OTHER DEVICE IN ABDOMINAL WALL, EXTERNAL APPROACH (08/03/15) CONTR CEREBR ARTERIOGRAM (06/13/05) CONTRAST AORTOGRAM (06/13/05) CONTRAST ARTERIOGRAM NEC (05/23/12) CONTROL BLEEDING IN GASTROINTESTINAL TRACT, ENDO (05/07/18) CORONAR ARTERIOGR-2 CATH (05/23/12) ENDOSC POLYPECTOMY OF LG INTEST (06/28/14) ENTERAL INFUSION OF CONCENTRATED NUT. SUBSTANCES (10/01/14) HEAD & NECK ENDARTER NEC (06/13/05) INJECT ANTICOAGULANT (06/13/05) INSERT PACE, SINGL HAYLEY IN CHEST SUBCU/FASCIA, OPEN (03/05/16) INSERTION OF ENDOTRACHEAL AIRWAY INTO TRACHEA, VIA OPENING (05/07/18) INSERTION OF INFUSION DEV INTO R BRACH VEIN, PERC APPROACH (05/07/18) INSERTION OF INFUSION DEV INTO SUP VENA CAVA, PERC APPROACH (07/01/18) INSERTION OF ONE VASCULAR STENT (05/23/12) INSERTION OF PACEMAKER LEAD INTO R VENTRICLE, PERC APPROACH (03/05/16) INSPECTION OF TRACHEOBRONCHIAL TREE, ENDO (11/09/17) INSPECTION OF UPPER INTESTINAL TRACT, ENDO (09/13/18) INSRT OF DRUG-ELUTING CORON ARTERY STENTS(S) (05/23/12) INTRODUCTION OF NUTRITIONAL INTO UP GI, VIA OPENING (09/13/18) INTRODUCTION OF VASOPRESSOR INTO CENTRAL VEIN, PERC APPROACH (03/05/16) LEFT HEART CARDIAC CATH (05/23/12) LT HEART ANGIOCARDIOGRAM (05/23/12) MEASUREMENT OF CARDIAC PACEMAKER, EXTERNAL APPROACH (01/27/17) PACKED CELL TRANSFUSION (06/28/14) PERCUTANEOUS TRANSLUMINAL CORONARY ANGIOPLASTY [PTCA] (05/23/12) PERCUTANEOUS [ENDOSCOPIC] GASTROSTOMY [PEG] (10/01/14) PERFORMANCE OF CARDIAC PACING, CONTINUOUS (03/05/16) PROCEDURE ON SINGLE VESSEL (05/23/12) REPLACE GASTROSTOMY TUBE (02/09/15) RESPIRATORY VENTILATION, 24-96 CONSECUTIVE HOURS (05/07/18) RESPIRATORY VENTILATION, GREATER THAN 96 CONSECUTIVE HOURS (05/07/18) TRANSFUSE NONAUT FROZEN PLASMA IN PERIPH VEIN, PERC (05/07/18) TRANSFUSE NONAUT RED BLOOD CELLS IN PERIPH VEIN, PERC (05/07/18) Family History: States: No Known Family Hx - Social History Hx Tobacco Use: No Hx Alcohol Use: No Hx Substance Use: No - Immunization History Hx Tetanus Toxoid Vaccination: No Hx Influenza Vaccination: No Hx Pneumococcal Vaccination: No <Nikki Ewing - Last Filed: 10/22/18 13:13> Vital Signs: Last Vital Signs Temp 98.1 F 10/22/18 11:42 Pulse 107 H 10/22/18 15:27 Resp 17 10/22/18 15:27 BP 151/73 H 10/22/18 15:27 Pulse Ox 97 10/22/18 15:27 - [facility] Procedures ASSISTANCE WITH RESPIRATORY VENTILATION, >96 HRS, CPAP (05/07/18) BYPASS TRACHEA TO CUTANEOUS WITH TRACH DEV, PERC APPROACH (11/09/17) CHANGE OTHER DEVICE IN ABDOMINAL WALL, EXTERNAL APPROACH (08/03/15) CONTR CEREBR ARTERIOGRAM (06/13/05) CONTRAST AORTOGRAM (06/13/05) CONTRAST ARTERIOGRAM NEC (05/23/12) CONTROL BLEEDING IN GASTROINTESTINAL TRACT, ENDO (05/07/18) CORONAR ARTERIOGR-2 CATH (05/23/12) ENDOSC POLYPECTOMY OF LG INTEST (06/28/14) ENTERAL INFUSION OF CONCENTRATED NUT. SUBSTANCES (10/01/14) HEAD & NECK ENDARTER NEC (06/13/05) INJECT ANTICOAGULANT (06/13/05) INSERT PACE, SINGL HAYLEY IN CHEST SUBCU/FASCIA, OPEN (03/05/16) INSERTION OF ENDOTRACHEAL AIRWAY INTO TRACHEA, VIA OPENING (05/07/18) INSERTION OF INFUSION DEV INTO R BRACH VEIN, PERC APPROACH (05/07/18) INSERTION OF INFUSION DEV INTO SUP VENA CAVA, PERC APPROACH (07/01/18) INSERTION OF ONE VASCULAR STENT (05/23/12) INSERTION OF PACEMAKER LEAD INTO R VENTRICLE, PERC APPROACH (03/05/16) INSPECTION OF TRACHEOBRONCHIAL TREE, ENDO (11/09/17) INSPECTION OF UPPER INTESTINAL TRACT, ENDO (09/13/18) INSRT OF DRUG-ELUTING CORON ARTERY STENTS(S) (05/23/12) INTRODUCTION OF NUTRITIONAL INTO UP GI, VIA OPENING (09/13/18) INTRODUCTION OF VASOPRESSOR INTO CENTRAL VEIN, PERC APPROACH (03/05/16) LEFT HEART CARDIAC CATH (05/23/12) LT HEART ANGIOCARDIOGRAM (05/23/12) MEASUREMENT OF CARDIAC PACEMAKER, EXTERNAL APPROACH (01/27/17) PACKED CELL TRANSFUSION (06/28/14) PERCUTANEOUS TRANSLUMINAL CORONARY ANGIOPLASTY [PTCA] (05/23/12) PERCUTANEOUS [ENDOSCOPIC] GASTROSTOMY [PEG] (10/01/14) PERFORMANCE OF CARDIAC PACING, CONTINUOUS (03/05/16) PROCEDURE ON SINGLE VESSEL (05/23/12) REPLACE GASTROSTOMY TUBE (02/09/15) RESPIRATORY VENTILATION, 24-96 CONSECUTIVE HOURS (05/07/18) RESPIRATORY VENTILATION, GREATER THAN 96 CONSECUTIVE HOURS (05/07/18) TRANSFUSE NONAUT FROZEN PLASMA IN PERIPH VEIN, PERC (05/07/18) TRANSFUSE NONAUT RED BLOOD CELLS IN PERIPH VEIN, PERC (05/07/18) <Pam,Stacy Barrow - Last Filed: 10/31/18 16:52> Review Of Systems Review Of Systems: ROS cannot be obtained secondary to pt's inabilty to answer questions. <Nikki Ewing - Last Filed: 10/22/18 13:13> Physical Exam - Physical Exam Appears: Non-toxic, Other (NARD) Skin: Warm, Dry, Other (local erythema to peg site) Head: Atraumatic, Normacephalic Eye(s): bilateral: Normal Inspection Cardiovascular: Rhythm Regular Respiratory: Other (NARD) Gastrointestinal/Abdominal: Soft, No Tenderness, No Distention, No Guarding, No Rebound, Other (+peg in place, no tenderness in peg site) Neurological/Psych: Oriented x3, Normal Speech <Nikki Ewing Last Filed: 10/22/18 13:13> ED Course And Treatment - Laboratory Results Result Diagrams: 10/22/18 12:51 10/22/18 12:51 ECG: Interpreted By Ar ECG Rhythm: Sinus Tachycardia ECG Interpretation: No Changes From Prior, Abnormal Interpretation Of ECG: [facility] 09/24/18 Rate From EC O2 Sat by Pulse Oximetry: 96 (RA) Pulse Ox Interpretation: Normal <Nikki Ewing Last Filed: 10/22/18 13:13> - Laboratory Results Result Diagrams: 10/29/18 07:50 10/29/18 07:50 Lab Results: pO2 30 mm/Hg (30-55) 10/22/18 13:15 VBG pH 7.39 (7.32-7.43) 10/22/18 13:15 VBG pCO2 52 mmHg (40-60) 10/22/18 13:15 VBG HCO3 27.9 mmol/L 10/22/18 13:15 VBG Total CO2 33.1 mmol/L (22-28) H 10/22/18 13:15 VBG O2 Sat (Calc) 48.8 % (40-65) 10/22/18 13:15 VBG Base Excess 5.2 mmol/L (0.0-2.0) H 10/22/18 13:15 VBG Potassium 4.8 mmol/L (3.6-5.2) 10/22/18 13:15 Sodium 126.0 mmol/l (132-148) L 10/22/18 13:15 Chloride 90.0 mmol/L (98-107) L 10/22/18 13:15 Glucose 291 mg/dl (65-105) H 10/22/18 13:15 Lactate 3.6 mmol/L (0.7-2.1) H 10/22/18 13:15 Urine Color Yellow (YELLOW) 10/22/18 13:20 Urine Clarity Hazy (Clear) 10/22/18 13:20 Urine pH 7.0 (5.0-8.0) 10/22/18 13:20 Ur Specific [place] 1.006 (1.003-1.030) 10/22/18 13:20 Urine Protein 1+ mg/dL (NEGATIVE) H 10/22/18 13:20 Urine Glucose (UA) 2+ mg/dL (Normal) H 10/22/18 13:20 Urine Ketones Negative mg/dL (NEGATIVE) 10/22/18 13:20 Urine Blood Trace (NEGATIVE) H 10/22/18 13:20 Urine Nitrate Negative (NEGATIVE) 10/22/18 13:20 Urine Bilirubin Negative (NEGATIVE) 10/22/18 13:20 Urine Urobilinogen Normal mg/dL (0.2-1.0) 10/22/18 13:20 Ur Leukocyte Esterase 3+ Sylvie/uL (Negative) H 10/22/18 13:20 Urine WBC (Auto) 65 /hpf (0-5) H 10/22/18 13:20 Urine RBC (Auto) 18 /hpf (0-3) H 10/22/18 13:20 Ur Squamous Epith Cells 1 /hpf (0-5) 10/22/18 13:20 Urine Bacteria Few (<OCC) H 10/22/18 13:20 Urine Yeast (Budding) Few /hpf (NEGATIVE) H 10/22/18 13:20 Progress Note: Patient has signiciant leukocytosis with left shift, bands 8%, tachycardia. Code sepsis called, IV fluid and broad spectrum antibiotics given. - Physician Consult Information Physician Contacted: Luis Manuel Patel Outcome Of Conversation: Discussed patient with PMD, agrees with admission for sepsis, UTI, leukocytosis with bandemia, dehydration, lung mass, hyponatremia. <Stacy Orozco - Last Filed: 10/31/18 16:52> Progress - Re-Evaluation Re-evaluation Note: 10/22/18 12:45 PEG FLUSH WO DIFF - Data Reviewed Data Reviewed: Lab, Diagnostic imaging, EKG, Old records <Nikki Ewing - Last Filed: 10/22/18 13:13> Critical Care Time - Critical Care Note Total Time (in mins): 45 Documented critical care: time excludes all time spent performing seperately billable procedures. <Stacy Orozco - Last Filed: 10/31/18 16:52> Disposition Counseled Patient/Family Regarding: Diagnosis - Disposition Disposition Time: 13:00 <Nikki Ewing - Last Filed: 10/22/18 13:13> - Disposition Disposition Time: 16:18 <Stacy Orozco - Last Filed: 10/31/18 16:52> - Disposition Disposition: HOSPITALIZED Condition: STABLE - Clinical Impression Clinical Impression: Cellulitis, Tachycardia, Skin irritation, Lung mass, UTI (urinary tract infection), Bandemia, Dehydration, Hyponatremia, Sepsis - Scribe Statement The provider has reviewed the documentation as recorded by the Franceibsuzy Hernandez Provider Attestation: All medical record entries made by the Scribe were at my direction and personally dictated by me. I have reviewed the chart and agree that the record accurately reflects my personal performance of the history, physical exam, medical decision making, and the department course for this patient. I have also personally directed, reviewed, and agree with the discharge instructions and disposition. <Nikki Ewing - Last Filed: 10/22/18 13:13> Physician Patient Turnover Patient Signed Over To: Stacy Orozco Handoff Comments: FU LABS, CXR, DISPO <Nikki Ewing - Last Filed: 10/22/18 13:13> Decision To Admit <Nikki Ewing - Last Filed: 10/22/18 13:13> - Pt Status Changed To: Hospital Disposition Of: Inpatient - Admit Certification Admit to Inpatient:: After my assessment, the patient will require hospitalization for at least two midnights. This is because of the severity of symptoms shown, intensity of services needed, and/or the medical risk in this patient being treated as an outpatient. - InPatient: Physician Admission Certification: I certify that this patient requires 2 or more midnights of care for the following reason:: see notes - . Bed Request Type: Telemetry Admitting Physician: Luis Manuel Patel <Stacy Orozco - Last Filed: 10/31/18 16:52> - . Patient Diagnosis: Cellulitis, Tachycardia, Skin irritation, Sepsis, UTI (urinary tract infection), Hyponatremia, Dehydration, Lung mass, Bandemia
[2018-10-22] MEDS ORDERED: Bacitracin 500 Units/gm Oint Foilpak UD TOP ONE (12:36)
[2018-10-22] MEDS ORDERED: Bacitracin 500 Units/gm Oint Foilpak UD ONE (12:42)
[2018-10-22 12:55] LABS: BASO # 0.1 K/uL (0.0-0.2); BASO % 0.5 % (0.0-2.0); EOS # 0.2 K/uL (0.0-0.7); HEMOGLOBIN 12.5 g/dL (11.0-16.0); LYMPH % 5.8 % (20.0-40.0); MEAN CORPUSCULAR HEMOGLOBIN 30.4 pg (27.0-31.0); MEAN CORPUSCULAR HGB CONC 33.8 g/dL (33.0-37.0); MEAN PLATELET VOLUME 7.3 fL (7.2-11.7); MONO # 1.7 K/uL (0.0-0.8); MONO % 9.8 % (0.0-10.0); NEUT # 14.7 K/uL (1.8-7.0); NEUT % 82.9 % (50.0-75.0); RBC 4.12 Mil/uL (3.80-5.20); RED CELL DISTRIBUTION WIDTH 16.3 % (11.5-14.5); WHITE BLOOD COUNT 17.8 K/uL (4.8-10.8)
[2018-10-22 12:57] LABS: MEAN CELL VOLUME 90.1 fL (81.0-99.0); PLATELET COUNT 446 K/uL (130-400)
[2018-10-22] MEDS ORDERED: Vancomycin 1 GM 1 GM/250 ML BAG IV STA (12:59)
[2018-10-22 13:12] LABS: BLOOD UREA NITROGEN 24 mg/dL (7-17); CALCIUM 10.3 mg/dl (8.6-10.4); GFR NON-AFRICAN AMERICAN > 60
[2018-10-22] MEDS ORDERED: Sodium Chloride 0.9% 500 ML IV ONE ×2 (13:16→19:16)
[2018-10-22] MEDS ORDERED: Vancomycin 1 GM 1 GM/250 ML BAG IVPB ONE (13:16)
[2018-10-22] MEDS: Sodium Chloride 0.9% 500 ML IV SCH ×4 (13:20→23:43)
[2018-10-22 13:21] LABS: VENOUS BLOOD GAS BASE EXCESS 5.2 mmol/L (0.0-2.0); VENOUS BLOOD GAS PCO2 52 mmHg (40-60); VENOUS BLOOD GAS PO2 30 mm/Hg (30-55); VENOUS BLOOD PH 7.39 (7.32-7.43)
[2018-10-22 13:25] LABS: BANDS 8 % (0-2); BASOPHIL 1 % (0-2); EOSINOPHIL 2 % (0-4); LYMPHOCYTE 5 % (20-40); MONOCYTE 12 % (0-10); NEUTROPHIL 72 % (50-75); PLATELET ESTIMATE SLIGHTLY INCREASED (NORMAL); TOTAL CELLS COUNTED 100
[2018-10-22 13:26] LABS: ANISOCYTOSIS SLIGHT
[2018-10-22 13:40] LABS: SQUAMOUS EPITHIAL 1 /hpf (0-5); URINE BACTERIA FEW (<OCC); URINE BILIRUBIN NEGATIVE (NEGATIVE); URINE CLARITY Hazy (Clear); URINE COLOR Yellow (YELLOW); URINE GLUCOSE (UA) 2+ mg/dL (Normal); URINE LEUKOCYTE ESTERASE 3+ Leu/uL (Negative); URINE PROTEIN 1+ mg/dL (NEGATIVE); URINE UROBILINOGEN NORMAL mg/dL (0.2-1.0)
[2018-10-22 13:43] LABS: URINE BLOOD TRACE (NEGATIVE)
[2018-10-22] MEDS ORDERED: Aztreonam 2 GM in Sodium Chloride 0.9% 100 ML IVPB STA (15:29)
[2018-10-22] MEDS ORDERED: Moxifloxacin IV 400mg/250ml NS 400 MG/250 ML BAG IV ONE (15:32)
--- NOTE | 2018-10-22 15:52 | CT ---
PROCEDURE: CT Abdomen and Pelvis without Oral or IV contrast. HISTORY: llq pain, r/o diverticulitis vs hematoma COMPARISON: CT abdomen and pelvis without IV contrast performed 08/15/18 TECHNIQUE: Contiguous axial images of the abdomen and pelvis. No oral or IV contrast administered. Coronal and Sagittal reformats generated and reviewed. Radiation dose: Total exam DLP = 904.02 mGy-cm. This CT exam was performed using one or more of the following dose reduction techniques: Automated exposure control, adjustment of the mA and/or kV according to patient size, and/or use of iterative reconstruction technique. FINDINGS: There is limited evaluation of the solid organs without the administration of IV contrast. LOWER THORAX: Visualized lung bases reveal bibasilar atelectasis. Partially imaged pleural based left pulmonary mass measures approximately 2.6 x 3.4 cm. Small to moderate hiatal hernia. Partially imaged circumferential wall thickening of the distal esophagus. LIVER: Unremarkable unenhanced appearance. GALLBLADDER AND BILE DUCTS: Unremarkable unenhanced appearance. PANCREAS: Atrophy. SPLEEN: Unremarkable unenhanced appearance. ADRENALS: Bilateral adrenal gland hypertrophy. KIDNEYS AND URETERS: No hydronephrosis or obstructing renal calculus. BLADDER: The urinary bladder appears unremarkable. REPRODUCTIVE: Uterus is absent; correlate clinically for hysterectomy. APPENDIX: No secondary signs of acute appendicitis. BOWEL: The stomach is nondistended. Percutaneous gastrostomy tube. Lack of oral contrast limits evaluation for bowel pathology. The bowel loops appear within normal limits of caliber without evidence of intestinal obstruction. Diverticulosis without CT evidence of acute diverticulitis. PERITONEUM: No significant free fluid. No definite free air. LYMPH NODES: No bulky lymphadenopathy identified. VASCULATURE: Atherosclerotic calcifications of the aorta and branches. No aortic aneurysm. BONES: Diffuse osseous demineralization. Degenerative changes. Marked scoliosis of the thoracolumbar spine. OTHER FINDINGS: None. IMPRESSION: Percutaneous gastrostomy tube. Diverticulosis without CT evidence of acute diverticulitis. Bilateral adrenal gland hypertrophy. Pancreatic atrophy. Bibasilar atelectasis. Partially imaged re-identified left pleural based pulmonary mass measures approximately 2.6 x 3.4 cm. Partially imaged marked wall thickening of the distal esophagus; neoplasm cannot be excluded. Correlate clinically including endoscopy if not already performed. Additional findings as above.
[2018-10-22 16:12] LABS: BLOOD UREA NITROGEN 23 mg/dL (7-17); CALCIUM 9.9 mg/dl (8.6-10.4); GFR NON-AFRICAN AMERICAN > 60
--- NOTE | 2018-10-22 16:16 | RAD ---
Date of service: 10/22/2018 PROCEDURE: CHEST RADIOGRAPH, 1 VIEW HISTORY: TACHYCARDIA COMPARISON: 10/03/2018. FINDINGS: LUNGS: Clear. Improved aeration left lower lobe. PLEURA: No pneumothorax or pleural fluid seen. CARDIOVASCULAR: Atherosclerotic calcifications identified primarily aortic arch. Position/ configuration of pacemaker radiographic findings to suggest acute or significant cardiovascular disease. Normal. OSSEOUS STRUCTURES: No significant abnormalities. VISUALIZED UPPER ABDOMEN: Normal. OTHER FINDINGS: None. IMPRESSION: No active disease.
[2018-10-22] MEDS ORDERED: Moxifloxacin IV 400mg/250ml NS 400 MG/250 ML BAG IVPB ONE (17:10)
[2018-10-22 17:39] LABS: VENOUS BLOOD GAS BASE EXCESS -0.9 mmol/L (0.0-2.0); VENOUS BLOOD GAS PCO2 50 mmHg (40-60); VENOUS BLOOD GAS PO2 17 mm/Hg (30-55); VENOUS BLOOD PH 7.32 (7.32-7.43)
[2018-10-22] MEDS: Sodium Chloride 0.9% 1,000 ML IV SCH (20:09)
[2018-10-22] MEDS ORDERED: Albuterol-Ipratrop 3 mg / 0.5 (3 ml) UD ONE (20:32)
[2018-10-22] MEDS: Albuterol-Ipratrop 3 mg / 0.5 (3 ml) UD INH SCH (20:34)
--- NOTE | 2018-10-22 22:26 | CP.PCM.HP ---
History of Present Illness - History of Present Illness History of Present Illness: Chief complaint Brought her to the emergency room by her daughter because of the bleeding, and also concern about redness around the PEG tube HPI: 88-year-old female history of high blood pressure, COPD, CAD, CABG, high cholesterol, history of osteoporosis pneumonia status post tracheostomy, aspiration pneumonia GI bleed multiple hospitalization with recurrent urinary tract infection brought in by the ambulance today because of the symptoms of redness around the PEG tube, and also the suspected bleeding. According to the patient's daughter she was not feeling well for the last 3 days, in spite of the regular medication patient was having increasing lethargic and weakness. She was not feeling well. There was no fever noted. Patient denies any vomiting, no abdominal pain. Denied any diarrhea. Patient's daughter was concerned that that she was becoming more lethargic and weakness. Initially there was elevated lactic acid noted, in the emergency room patient was evaluated, code sepsis was called in, Past medical history: Hypertension, hyperlipidemia, CAD, COPD, osteoporosis osteoarthritis recurrent pneumonia GI bleed and duodenal ulcer Surgical history: CABG x2, tracheostomy, PEG tube, pacemaker, multiple esophageal dilatation for achalasia cardia Allergies multiple allergies noted from the chart Review of system: Noted from the chart. Patient is having pain in the peg site. No headache. Cough minimal Tolerating the feeding On examination: Vital signs stable. Chest good air entry Regular heart sounds noted Abdomen soft. PEG tube noted. Leg swelling negative Labs reviewed Showing elevated WBC. Urinary analysis showing evidence of possible infection CAT scan of the chest showing evidence of left lower lung mass like lesion, possible non-resolving pneumonia Assessment and recommendation: 88-year-old female with a history of multiple problems including hypertension, COPD, CAD, CABG, hypercholesterolemia, history of osteoporosis pneumonia tracheostomy aspiration pneumonia GI bleed admitted with a possible urinary tract infection. Underlying pneumonia possible. We will start the patient on antibiotic. The lesion in the left lower lung is not improving over the course of 2 months in spite of the antibiotic. Underlying lung cancer cannot be ruled out. I recommended repeat CAT scan. Continue the antibiotic. If there is no improvement lung biopsy probably recommended. I spoke to the patient's daughter regarding this condition. DVT and GI prophylaxis. Antibiotic IV fluid. Watch for heart failure. Patient in the past had a recurrent episodes of diastolic heart failure with the atrial flutter fibrillation. We will monitor closely and will follow the patient Present on Admission - Present on Admission Any Indicators Present on Admission: No History of DVT/PE: No History of Uncontrolled Diabetes: No Urinary Catheter: No Decubitus Ulcer Present: No Past Patient History - Infectious Disease Hx of Infectious Diseases: None - Past Medical History & Family History Past Medical History?: Yes - Past Social History Smoking Status: Former Smoker - CARDIAC Hx Cardia Arrhythmia: Yes Hx Congestive Heart Failure: Yes Hx Hypercholesterolemia: Yes Hx Hypertension: Yes Hx Pacemaker: Yes (left) - PULMONARY Hx Bronchitis: Yes Hx Chronic Obstructive Pulmonary Disease (COPD): Yes Hx Pneumonia: Yes - NEUROLOGICAL Hx Seizures: No - HEENT Hx HEENT Problems: Yes Hx Cataracts: Yes (2000 Rt.Eye,2009Le Eye) - RENAL Hx Chronic Kidney Disease: No - ENDOCRINE/METABOLIC Hx Diabetes Mellitus Type 2: Yes - HEMATOLOGICAL/ONCOLOGICAL Hx Human Immunodeficiency Virus (HIV): No - INTEGUMENTARY Hx Dermatological Problems: Yes Other/Comment: sore in the sacral area. heel sore - MUSCULOSKELETAL/RHEUMATOLOGICAL Hx Arthritis: Yes Hx Osteoporosis: Yes Hx Rheumatoid Arthritis: Yes - GASTROINTESTINAL Hx Gastrointestinal Disorders: Yes Hx Colitis: Yes Hx Gastroesophageal Reflux: Yes HX Swallowing Problems: Yes (Achalasia. See HPI) Other/Comment: peg tube - GENITOURINARY/GYNECOLOGICAL Hx Sexually Transmitted Disorders: No - PSYCHIATRIC Hx Anxiety: Yes Hx Substance Use: No - SURGICAL HISTORY Hx Carotid Endarterectomy: Yes (06/13/05) Hx Coronary Artery Bypass Graft: Yes (12/16/1991) Hx Coronary Stent: Yes - ANESTHESIA Hx Anesthesia: Yes Hx Anesthesia Reactions: No Hx Malignant Hyperthermia: No Meds Allergies/Adverse Reactions: Allergies Allergy/AdvReac Type Severity Reaction Status Date / Time iodine Allergy REDNESS Verified 10/22/18 11:39 Penicillins Allergy ANGIOEDEMA Verified 10/22/18 11:39 clopidogrel [From Plavix] AdvReac HEADACHE Verified 10/22/18 11:39 losartan [From Cozaar] AdvReac DIZZINESS Verified 10/22/18 11:39 nitroglycerin AdvReac DIZZINESS Verified 10/22/18 11:39 Results - Vital Signs Recent Vital Signs: Last Vital Signs Temp 98.1 F 10/22/18 22:05 Pulse 128 H 10/22/18 22:05 Resp 20 10/22/18 22:05 BP 164/86 H 10/22/18 22:05 Pulse Ox 95 10/22/18 22:05 - Labs Result Diagrams: 10/22/18 12:51 10/22/18 15:50 Labs: Laboratory Results - last 24 hr 10/22/18 10/22/18 10/22/18 12:51 12:51 13:15 WBC 17.8 H RBC 4.12 Hgb 12.5 Hct 37.1 MCV 90.1 D MCH 30.4 MCHC 33.8 RDW 16.3 H Plt Count 446 H D MPV 7.3 Neut % (Auto) 82.9 H Lymph % (Auto) 5.8 L [place] % (Auto) 9.8 Eos % (Auto) 1.0 Baso % (Auto) 0.5 Neut # (Auto) 14.7 H Lymph # (Auto) 1.0 [place] # (Auto) 1.7 H Eos # (Auto) 0.2 Baso # (Auto) 0.1 Neutrophils % (Manual) 72 Band Neutrophils % 8 H Lymphocytes % (Manual) 5 L Monocytes % (Manual) 12 H Eosinophils % (Manual) 2 Basophils % (Manual) 1 Platelet Estimate Slightly increased H Anisocytosis (manual) Slight pO2 30 VBG pH 7.39 VBG pCO2 52 VBG HCO3 27.9 VBG Total CO2 33.1 H VBG O2 Sat (Calc) 48.8 VBG Base Excess 5.2 H VBG Potassium 4.8 Glucose 291 H Lactate 3.6 H Sodium 124 L 126.0 L Potassium 4.9 Chloride 84 L 90.0 L Carbon Dioxide 28 Anion Gap 16 BUN 24 H Creatinine 0.6 L Est GFR ( Amer) > 60 Est GFR (Non-Af Amer) > 60 Random Glucose 257 H D Calcium 10.3 Venous Blood Potassium 4.8 Urine Color Urine Clarity Urine pH Ur Specific [place] Urine Protein Urine Glucose (UA) Urine Ketones Urine Blood Urine Nitrate Urine Bilirubin Urine Urobilinogen Ur Leukocyte Esterase Urine WBC (Auto) Urine RBC (Auto) Ur Squamous Epith Cells Urine Bacteria Urine Yeast (Budding) 10/22/18 10/22/18 10/22/18 13:20 15:50 17:37 WBC RBC Hgb Hct MCV MCH MCHC RDW Plt Count MPV Neut % (Auto) Lymph % (Auto) [place] % (Auto) Eos % (Auto) Baso % (Auto) Neut # (Auto) Lymph # (Auto) [place] # (Auto) Eos # (Auto) Baso # (Auto) Neutrophils % (Manual) Band Neutrophils % Lymphocytes % (Manual) Monocytes % (Manual) Eosinophils % (Manual) Basophils % (Manual) Platelet Estimate Anisocytosis (manual) pO2 17 L VBG pH 7.32 VBG pCO2 50 VBG HCO3 22.1 VBG Total CO2 27.3 VBG O2 Sat (Calc) 27.7 L VBG Base Excess -0.9 L VBG Potassium 4.3 Glucose 174 H Lactate 2.2 H Sodium 125 L 133.0 Potassium 5.3 H Chloride 90 L 100.0 Carbon Dioxide 28 Anion Gap 13 BUN 23 H Creatinine 0.5 L Est GFR ( Amer) > 60 Est GFR (Non-Af Amer) > 60 Random Glucose 208 H Calcium 9.9 Venous Blood Potassium 4.3 Urine Color Yellow Urine Clarity Hazy Urine pH 7.0 Ur Specific [place] 1.006 Urine Protein 1+ H Urine Glucose (UA) 2+ H Urine Ketones Negative Urine Blood Trace H Urine Nitrate Negative Urine Bilirubin Negative Urine Urobilinogen Normal Ur Leukocyte Esterase 3+ H Urine WBC (Auto) 65 H Urine RBC (Auto) 18 H Ur Squamous Epith Cells 1 Urine Bacteria Few H Urine Yeast (Budding) Few H
[2018-10-22] MEDS: (Novolin R) Insulin Human Regular 100 units/ml vial SC SCH (22:31)
[2018-10-22] MEDS: (Lantus) Insulin Glargine, Recombinant SC SCH (22:52)
[2018-10-22] MEDS: Pantoprazole 40 mg Susp UD PO SCH (22:54)
[2018-10-23] MEDS: Albuterol-Ipratrop 3 mg / 0.5 (3 ml) UD INH SCH ×4 (01:38→19:08)
[2018-10-23] MEDS: Sodium Chloride 0.9% 1,000 ML IV SCH (05:57)
--- NOTE | 2018-10-23 08:10 | CP.PCM.PN ---
Subjective - Date & Time of Evaluation Date of Evaluation: 10/23/18 Time of Evaluation: 08:09 - Subjective Subjective: Patient this morning is awake and responding. Currently receiving the nebulizer. Slight tachypnea noted. No fever noted. Tolerating the PEG tube feeding On examination: Vital signs are stable otherwise. Chest bilateral wheezing and rales noted Regular [place] Nontender abdomen. No pedal edema Assessment and recommendation: 88-year-old female with a history of CAD, coronary artery bypass grafting, COPD, history of recurrent pneumonia and urinary tract infection. Now admitted with acute sepsis, likely secondary cause urinary tract infection Left lower lung pneumonia, masslike lesion. We will continue the antibiotic. We will monitor closely. If needed patient will need a transthoracic lung biopsy. Objective - Vital Signs/Intake and Output Vital Signs (last 24 hours): Temp Pulse Resp BP Pulse Ox 98.3 F 112 H 20 162/88 H 97 10/23/18 01:00 10/23/18 01:00 10/23/18 01:00 10/23/18 01:00 10/23/18 01:00 Intake and Output: 10/23/18 10/23/18 06:59 18:59 Intake Total 110 Output Total 650 Balance -540 - Medications Medications: Current Medications Acetaminophen (Tylenol 650 Mg Supp) 650 mg ND Q6 PRN PRN Reason: Fever >100.4 F Albuterol/Ipratropium (Duoneb 3 Mg/0.5 Mg (3 Ml) Ud) 3 ml INH RQ6 [facility] Last Admin: 10/23/18 01:38 Dose: 3 ml Heparin Sodium (Porcine) (Heparin) 5,000 units SC Q8 [facility] Last Admin: 10/23/18 05:05 Dose: 5,000 units Moxifloxacin HCl (Avelox Iv 400mg/250ml Ns) 400 mg in 250 mls @ 167 mls/hr IVPB Q24H [facility]; Protocol Insulin Glargine (Lantus) 20 unit SC HS [facility] Last Admin: 10/22/18 22:52 Dose: 20 unit Insulin Human Regular (Novolin R) 0 unit SC ACHS [facility]; Protocol Last Admin: 10/22/18 22:31 Dose: Not Given Metoprolol Tartrate (Lopressor) 50 mg PO BID [facility] Multivitamins (Hexavitamin) 1 tab PO DAILY [facility] Pantoprazole Sodium (Protonix Susp) 40 mg PO Q12 [facility] Last Admin: 10/22/18 22:54 Dose: 40 mg Sitagliptin Phosphate (Januvia) 50 mg PO DAILY [facility] - Labs Labs: 10/22/18 12:51 10/22/18 15:50
[2018-10-23] MEDS: (Novolin R) Insulin Human Regular 100 units/ml vial SC SCH ×4 (09:49→21:22)
[2018-10-23] MEDS: Multiple Vitamins Tab PO SCH (09:49)
[2018-10-23] MEDS: Pantoprazole 40 mg Susp UD PO SCH ×2 (09:50→21:34)
--- NOTE | 2018-10-23 09:56 | CT ---
Date of service: 10/22/2018 PROCEDURE: CT Chest without contrast HISTORY: lung mass COMPARISON: Comparison is made with the previous CT dated 11/15/2017. TECHNIQUE: Contiguous axial images were obtained through the chest without intravenous contrast enhancement. Sagittal and coronal reconstructions were performed. Radiation dose: Total exam DLP = 429.08 mGy-cm. This CT exam was performed using one or more of the following dose reduction techniques: Automated exposure control, adjustment of the mA and/or kV according to patient size, and/or use of iterative reconstruction technique. FINDINGS: LUNGS: Again noted is pleural base consolidation at the left lower lobe may represent neoplasm versus less likely atelectasis or pneumonia/aspiration. Adjacent small nodular opacities seen. Reticular opacities noted in the mid and lower lung associated with ground-glass opacities may related to mild pulmonary congestion. Bilateral lower lobe mild bronchiectasis is also noted. MEDIASTINUM: Diffuse atherosclerotic calcification without evidence of aneurysm. The heart is mildly enlarged without evidence of pericardial effusion pacemaker wires seen extending to the heart. Main pulmonary artery unremarkable. No vascular congestion. Slightly prominent precarinal lymph nodes are noted. There is moderate diffuse esophageal mucosal thickening noted with possible small hiatus hernia. The differential consideration include gastroesophageal reflux and esophagitis. Diffuse atherosclerotic calcification in the thoracic aorta PLEURA: Questionable trace right pleural effusion and foci of pleural thickening noted bilaterally. BONES: Status post sternotomy. Degenerative changes in the thoracic spine. UPPER ABDOMEN: Mild diffuse thickening of the adrenal glands noted suspicious for hyperplasia. OTHER FINDINGS: None. IMPRESSION: Redemonstrated is 4 centimeter pleural base consolidation at the left lung lower lobe. The differential consideration includes neoplasm or less likely pneumonia or atelectasis. Close follow-up reassessment is recommended. If clinically warranted CT guided biopsy may be obtained. Chronic lung changes. Mild cardiomegaly and mild pulmonary vascular congestion. Moderate diffuse esophageal mucosal thickening suspicious for esophagitis. Preliminary report contains concordant findings was submitted by [facility].
[2018-10-23] MEDS ORDERED: Multiple Vitamins Oral Solution PO SCH (10:00)
[2018-10-23] MEDS: Moxifloxacin IV 400mg/250ml NS 400 MG/250 ML BAG IVPB SCH (16:18)
[2018-10-23] MEDS: (Lantus) Insulin Glargine, Recombinant SC SCH (21:34)
[2018-10-24] MEDS: Albuterol-Ipratrop 3 mg / 0.5 (3 ml) UD INH SCH ×4 (01:18→19:18)
[2018-10-24 08:53] LABS: BASO # 0.1 K/uL (0.0-0.2); BASO % 0.8 % (0.0-2.0); EOS # 0.4 K/uL (0.0-0.7); EOS % 3.2 % (0.0-4.0); HEMOGLOBIN 10.7 g/dL (11.0-16.0); LYMPH # 1.6 K/uL (1.0-4.3); LYMPH % 11.8 % (20.0-40.0); MEAN CORPUSCULAR HEMOGLOBIN 31.3 pg (27.0-31.0); MEAN CORPUSCULAR HGB CONC 33.5 g/dL (33.0-37.0); MEAN PLATELET VOLUME 7.3 fL (7.2-11.7); MONO # 1.5 K/uL (0.0-0.8); MONO % 11.2 % (0.0-10.0); NEUT # 9.7 K/uL (1.8-7.0); RBC 3.42 Mil/uL (3.80-5.20); RED CELL DISTRIBUTION WIDTH 16.8 % (11.5-14.5); WHITE BLOOD COUNT 13.3 K/uL (4.8-10.8)
[2018-10-24 08:55] LABS: MEAN CELL VOLUME 93.4 fL (81.0-99.0)
[2018-10-24 09:03] LABS: ALB/GLOB RATIO 1.3 (1.0-2.1); ALBUMIN 3.7 g/dL (3.5-5.0); ALT/SGPT 14 U/L (9-52); AST/SGOT 32 U/L (14-36); BLOOD UREA NITROGEN 23 mg/dL (7-17); CALCIUM 9.6 mg/dl (8.6-10.4); GFR NON-AFRICAN AMERICAN > 60
[2018-10-24] MEDS: (Novolin R) Insulin Human Regular 100 units/ml vial SC SCH ×4 (09:20→21:50)
[2018-10-24] MEDS: Pantoprazole 40 mg Susp UD PO SCH ×2 (10:43→21:51)
[2018-10-24] MEDS: Multiple Vitamins Tab PO SCH (10:43)
[2018-10-24] MEDS: Moxifloxacin IV 400mg/250ml NS 400 MG/250 ML BAG IVPB SCH (17:52)
[2018-10-24] MEDS: (Lantus) Insulin Glargine, Recombinant SC SCH (21:51)
[2018-10-25] MEDS: Albuterol-Ipratrop 3 mg / 0.5 (3 ml) UD INH SCH ×4 (01:42→20:49)
[2018-10-25] MEDS: (Novolin R) Insulin Human Regular 100 units/ml vial SC SCH ×4 (09:12→21:25)
[2018-10-25] MEDS: Pantoprazole 40 mg Susp UD PO SCH ×2 (09:32→21:25)
[2018-10-25] MEDS: Multiple Vitamins Tab PO SCH (09:32)
[2018-10-25] MEDS: Moxifloxacin IV 400mg/250ml NS 400 MG/250 ML BAG IVPB SCH (17:00)
[2018-10-25] MEDS ORDERED: Sodium Chloride 0.9% 1,000 ML IV ONE (18:23)
[2018-10-25] MEDS: (Lantus) Insulin Glargine, Recombinant SC SCH (21:24)
--- NOTE | 2018-10-25 22:11 | CP.PCM.CON ---
History of Present Illness - History of Present Illness History of Present Illness: INFECTIOUS DISEASE CONSULT; HPI: 88-year-old female history of high blood pressure, COPD, CAD, CABG, high chol esterol, history of osteoporosis pneumonia status post tracheostomy, aspiration pneumonia GI bleed multiple hospitalization with recurrent urinary tract infection brought in by the ambulance on10/22/18 because of the symptoms of redness around the PEG tube, and also suspected bleeding. Pt also was not feeling well for the last 3 days, in spite of the regular medication .Patient was having increasing lethargic and weakness. There was no fever noted. Patient denies any vomiting, or abdominal pain. Denied any diarrhea. Patient's daughter was concerned that that she was becoming more lethargic and weakness. Initially there was elevated lactic acid noted, in the emergency room patient was evaluated, code sepsis was called in. patient was then appropriately cultured and started on IV Avelox. Today infectious disease consultation requested by PMD as patient had leukocytosis and positive blood cultures for Serratia marcescens/and GRAM- POSITIVE COCCI. ALSO URINALYSIS CONSISTENT WITH 65 wbcS, 3+ LEUKOCYTES WITH FEW BACTERIA AND YEAST NOTED. PATIENT HAS MULTIPLE ALLERGIES BUT HAS TOLERATED iv MERREM IN THE PAST. PATIENT STILL HYPOTENSIVE WITH BLOOD PRESSURE 92/57,AND GETTING IV BOLUSES. PMH: Anxiety, Arthritis, Bronchitis, CAD, Cardia Arrhythmia, CHF, COPD, Diabetes, GERD (esophageal stricture), HTN, Hypercholesterolemia, Osteoporosis, Pneumonia, Rheumatoid Arthritis Denies: HIV, Chronic Kidney Disease, Seizures, Sexually Transmitted Disease Surgical History: CABG (12/16/1991), Carotid Endarterectomy (06/13/05), Coronary Stent, Pacemaker Family History: States: Unknown Family Hx - Social History Hx Tobacco Use: No Hx Alcohol Use: No Hx Substance Use: No - Immunization History Hx Tetanus Toxoid Vaccination: No Hx Influenza Vaccination: No Hx Pneumococcal Vaccination: No Review Of Systems Review Of Systems: ROS cannot be obtained secondary to pt's inabilty to answer questions. ALLERGY; PCN. PATIENT HAS TOLERATED iv MERREM ,AND AZACTAM IN THE PAST. Also allergy to IODINE, CLOPIDOGREL, LOSARTAN, NITROGLYCERIN IN. ALLERGIES DISCUSSED WITH DAUGHTER MARIE TELEPHONE [phone]. PMD- Dr. Patel Past Patient History - Infectious Disease Hx of Infectious Diseases: None - Past Medical History & Family History Past Medical History?: Yes - Past Social History Smoking Status: Former Smoker - CARDIAC Hx Cardiac Disorders: Yes (CAD, CBAGx2, Carotid stenosis) Hx Congestive Heart Failure: Yes Hx Hypercholesterolemia: Yes Hx Hypertension: Yes - PULMONARY Hx Chronic Obstructive Pulmonary Disease (COPD): Yes - NEUROLOGICAL Hx Seizures: No - HEENT Hx HEENT Problems: Yes Hx Cataracts: Yes (2000 Rt.Eye,2009Left Eye) - RENAL Hx Chronic Kidney Disease: No - ENDOCRINE/METABOLIC Hx Diabetes Mellitus Type 2: Yes - HEMATOLOGICAL/ONCOLOGICAL Hx Human Immunodeficiency Virus (HIV): No - INTEGUMENTARY Hx Dermatological Problems: Yes Other/Comment: sore in the sacral area. heel sore - MUSCULOSKELETAL/RHEUMATOLOGICAL Hx Arthritis: Yes Hx Rheumatoid Arthritis: Yes - GASTROINTESTINAL Hx Gastrointestinal Disorders: Yes Hx Colitis: Yes Hx Gastroesophageal Reflux: Yes HX Swallowing Problems: Yes (Achalasia. See HPI) Other/Comment: peg tube - GENITOURINARY/GYNECOLOGICAL Hx Sexually Transmitted Disorders: No - PSYCHIATRIC Hx Anxiety: Yes Hx Substance Use: No - SURGICAL HISTORY Hx Carotid Endarterectomy: Yes (06/13/05) Hx Coronary Artery Bypass Graft: Yes (12/16/1991) Hx Coronary Stent: Yes - ANESTHESIA Hx Anesthesia: Yes Hx Anesthesia Reactions: No Hx Malignant Hyperthermia: No Meds Allergies/Adverse Reactions: Allergies Allergy/AdvReac Type Severity Reaction Status Date / Time iodine Allergy REDNESS Verified 10/22/18 11:39 Penicillins Allergy ANGIOEDEMA Verified 10/22/18 11:39 clopidogrel [From Plavix] AdvReac HEADACHE Verified 10/22/18 11:39 losartan [From Cozaar] AdvReac DIZZINESS Verified 10/22/18 11:39 nitroglycerin AdvReac DIZZINESS Verified 10/22/18 11:39 - Medications Medications: Current Medications Acetaminophen (Tylenol 650 Mg Supp) 650 mg ND Q6 PRN PRN Reason: Fever >100.4 F Last Admin: 10/25/18 09:13 Dose: 650 mg Albuterol/Ipratropium (Duoneb 3 Mg/0.5 Mg (3 Ml) Ud) 3 ml INH RQ6 [facility] Last Admin: 10/25/18 20:49 Dose: 3 ml Heparin Sodium (Porcine) (Heparin) 5,000 units SC Q8 [facility] Last Admin: 10/25/18 21:24 Dose: 5,000 units Moxifloxacin HCl (Avelox Iv 400mg/250ml Ns) 400 mg in 250 mls @ 167 mls/hr IVPB Q24H [facility]; Protocol Last Admin: 10/25/18 17:00 Dose: 167 mls/hr Sodium Chloride (Sodium Chloride 0.9%) 1,000 mls @ 125 mls/hr IV .Q8H ONE Stop: 10/26/18 02:22 Last Admin: 10/25/18 19:33 Dose: 125 mls/hr Insulin Glargine (Lantus) 20 unit SC [facility] Last Admin: 10/25/18 21:24 Dose: 20 unit Insulin Human Regular (Novolin R) 0 unit SC [facility]; Protocol Last Admin: 10/25/18 21:25 Dose: Not Given Metoprolol Tartrate (Lopressor) 50 mg PO BID [facility] Last Admin: 10/25/18 18:26 Dose: Not Given Multivitamins (Hexavitamin) 1 tab PO DAILY [facility] Last Admin: 10/25/18 09:32 Dose: 1 tab Pantoprazole Sodium (Protonix Susp) 40 mg PO Q12 [facility] Last Admin: 10/25/18 21:25 Dose: 40 mg Sitagliptin Phosphate (Januvia) 50 mg PO DAILY [facility] Last Admin: 10/25/18 09:32 Dose: 50 mg Physical Exam - Constitutional Appears: No Acute Distress, Confused (OPEN EYES TO NAME BUT LETHARGIC.), Chronically Ill - Head Exam Head Exam: NORMAL INSPECTION - Eye Exam Eye Exam: PERRL. absent: Scleral icterus - ENT Exam ENT Exam: Mucous Membranes Dry - Neck Exam Neck exam: Positive for: Normal Inspection. Negative for: Meningismus - Respiratory Exam Respiratory Exam: Decreased Breath Sounds, NORMAL BREATHING PATTERN - Cardiovascular Exam Cardiovascular Exam: Tachycardia, REGULAR RHYTHM, +S1, +S2 - GI/Abdominal Exam GI & Abdominal Exam: Normal Bowel Sounds (PEG IN PLACE, NO MALFUNCTIONING NOTED.), Soft. absent: Tenderness - Extremities Exam Extremities exam: Positive for: normal capillary refill, pedal pulses present. Negative for: calf tenderness, pedal edema - Neurological Exam Neurological exam: Altered - Psychiatric Exam Psychiatric exam: Flat Affect - Skin Skin Exam: Normal Color, Warm Results - Vital Signs Recent Vital Signs: Last Vital Signs Temp 98.1 F 10/25/18 16:00 Pulse 100 H 10/25/18 18:00 Resp 20 10/25/18 16:00 BP 100/66 10/25/18 16:00 Pulse Ox 100 10/25/18 16:00 - Labs Result Diagrams: 10/26/18 11:46 10/26/18 11:46 Labs: Laboratory Results - last 24 hr 10/25/18 10/25/18 10/25/18 06:26 10:59 13:13 POC Glucose (mg/dL) 231 H 216 H 178 H 10/25/18 10/25/18 16:49 21:08 POC Glucose (mg/dL) 188 H 193 H - Imaging and Cardiology Chest x-ray Status: Report reviewed by me (CXR 10/22/18 -VE NAD.) Assessment & Plan (1) Gram negative septic shock Assessment and Plan: BLOOD CULTURES 10/22/18 +VE SERRATIA MARCESCENS /GRAM-POSITIVE COCCI. 1:2 SETS, PATIENT HAS HISTORY OF MULTIPLE ALLERGIES BUT HAS TOLERATED MEROPENEM IN THE PAST. D/C IV aVELOX. START iv MERREM 500 MG iv PIGGYBACK EVERY 8 HOURLY 10/25/18. ADD iv ZYVOX 600 MG iv PIGGYBACK EVERY 12 HOURLY. 10/25/18. 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 F/U URINE CULTURES TO ADJUST ANTIBIOTICS. PATIENT GETTING iv FLUID BOLUSES FOR HYPERTENSION ALSO AND SHE IS DEHYDRATED. fOLLOW-UP CULTURES. CASE DISCUSSED WITH STAFF. CONTACT ISOLATION WHILE AWAITING CULTURES. Status: Acute (2) UTI (urinary tract infection) Assessment and Plan: HX OF VRE IN THE PAST.. F/U URINE CULTURES TO ADJUST ANTIBIOTICS.. Status: Acute (3) Leukocytosis Assessment and Plan: F/U SERIAL cbcS AND h&h Status: Acute (4) Altered mental status Assessment and Plan: PATIENT WITH TOXIC METABOLIC ENCEPHALOPATHY. FOLLOW-UP NEURO STATUS CLOSELY. T REAT SEPSIS. CORRECT ELECTROLYTES /iv FLUIDS PER PMD. WILL FOLLOW CT CHEST FOR 10/22/18.. Status: Acute (5) Gastrostomy tube in place Status: Acute
[2018-10-25] MEDS: Meropenem 500 MG in Sodium Chloride 0.9% 100 ML IVPB SCH (22:53)
[2018-10-26] MEDS: Albuterol-Ipratrop 3 mg / 0.5 (3 ml) UD INH SCH ×4 (01:35→21:04)
[2018-10-26] MEDS: Meropenem 500 MG in Sodium Chloride 0.9% 100 ML IVPB SCH ×3 (05:14→21:57)
[2018-10-26] MEDS: Linezolid 600 mg in D5W 300 ml 600 MG/300 ML BAG IVPB SCH ×2 (06:15→17:49)
--- NOTE | 2018-10-26 06:27 | CP.PCM.PN ---
Subjective - Date & Time of Evaluation Date of Evaluation: 10/24/18 Time of Evaluation: 06:26 - Subjective Subjective: Patient is this morning more awake and responding. She is today not verbally talking. Chest good air entry Heart sounds are regular, vital signs are stable today. Abdomen soft nontender. Tolerating the feeding. Blood cultures positive. Assessment and recommendation: 88-year-old female admitted with the septicemia currently on antibiotic. Awaiting for the ID of the organism. We will follow the patient Objective - Vital Signs/Intake and Output Vital Signs (last 24 hours): Temp Pulse Resp BP Pulse Ox 98.6 F 112 H 20 161/69 H 98 10/26/18 00:00 10/26/18 00:00 10/26/18 00:00 10/26/18 00:00 10/26/18 00:00 Intake and Output: 10/25/18 10/26/18 18:59 06:59 Intake Total 300 Output Total 800 Balance -500 - Medications Medications: Current Medications Acetaminophen (Tylenol 650 Mg Supp) 650 mg [place] Q6 PRN PRN Reason: Fever >100.4 F Last Admin: 10/25/18 09:13 Dose: 650 mg Albuterol/Ipratropium (Duoneb 3 Mg/0.5 Mg (3 Ml) Ud) 3 ml INH RQ6 [facility] Last Admin: 10/26/18 01:35 Dose: 3 ml Heparin Sodium (Porcine) (Heparin) 5,000 units SC Q8 [facility] Last Admin: 10/26/18 05:01 Dose: 5,000 units Meropenem 500 mg/ Sodium (Chloride) 100 mls @ 100 mls/hr IVPB Q8H [facility]; Protocol Last Admin: 10/26/18 05:14 Dose: 100 mls/hr Linezolid (Zyvox 600mg/300ml D5w) 600 mg in 300 mls @ 200 mls/hr IVPB Q12H [facility]; Protocol Last Admin: 10/26/18 06:15 Dose: 200 mls/hr Insulin Glargine (Lantus) 20 unit SC HS [facility] Last Admin: 10/25/18 21:24 Dose: 20 unit Insulin Human Regular (Novolin R) 0 unit SC ACHS [facility]; Protocol Last Admin: 10/25/18 21:25 Dose: Not Given Metoprolol Tartrate (Lopressor) 50 mg PO BID [facility] Last Admin: 10/25/18 18:26 Dose: Not Given Multivitamins (Hexavitamin) 1 tab PO DAILY [facility] Last Admin: 10/25/18 09:32 Dose: 1 tab Pantoprazole Sodium (Protonix Susp) 40 mg PO Q12 [facility] Last Admin: 10/25/18 21:25 Dose: 40 mg Sitagliptin Phosphate (Januvia) 50 mg PO DAILY [facility] Last Admin: 10/25/18 09:32 Dose: 50 mg - Labs Labs: 10/24/18 08:30 10/24/18 08:30
--- NOTE | 2018-10-26 06:27 | CP.PCM.PN ---
Subjective - Date & Time of Evaluation Date of Evaluation: 10/25/18 Time of Evaluation: 06:27 - Subjective Subjective: Patient this morning had episodes of tachycardia. Also patient was having low blood pressure this morning. Patient was given Cardizem IV 1 dose. The blood pressure improved slightly. Heart rate also controlled. Blood culture is positive for Gram-positive toxemia Infectious disease consultation recommended. We will continue to monitor and will follow the patient Objective - Vital Signs/Intake and Output Vital Signs (last 24 hours): Temp Pulse Resp BP Pulse Ox 98.6 F 112 H 20 161/69 H 98 10/26/18 00:00 10/26/18 00:00 10/26/18 00:00 10/26/18 00:00 10/26/18 00:00 Intake and Output: 10/25/18 10/26/18 18:59 06:59 Intake Total 300 Output Total 800 Balance -500 - Medications Medications: Current Medications Acetaminophen (Tylenol 650 Mg Supp) 650 mg ND Q6 PRN PRN Reason: Fever >100.4 F Last Admin: 10/25/18 09:13 Dose: 650 mg Albuterol/Ipratropium (Duoneb 3 Mg/0.5 Mg (3 Ml) Ud) 3 ml INH RQ6 [facility] Last Admin: 10/26/18 01:35 Dose: 3 ml Heparin Sodium (Porcine) (Heparin) 5,000 units SC Q8 [facility] Last Admin: 10/26/18 05:01 Dose: 5,000 units Meropenem 500 mg/ Sodium (Chloride) 100 mls @ 100 mls/hr IVPB Q8H [facility]; Protocol Last Admin: 10/26/18 05:14 Dose: 100 mls/hr Linezolid (Zyvox 600mg/300ml D5w) 600 mg in 300 mls @ 200 mls/hr IVPB Q12H [facility]; Protocol Last Admin: 10/26/18 06:15 Dose: 200 mls/hr Insulin Glargine (Lantus) 20 unit SC HS [facility] Last Admin: 10/25/18 21:24 Dose: 20 unit Insulin Human Regular (Novolin R) 0 unit SC ACHS [facility]; Protocol Last Admin: 10/25/18 21:25 Dose: Not Given Metoprolol Tartrate (Lopressor) 50 mg PO BID [facility] Last Admin: 10/25/18 18:26 Dose: Not Given Multivitamins (Hexavitamin) 1 tab PO DAILY [facility] Last Admin: 10/25/18 09:32 Dose: 1 tab Pantoprazole Sodium (Protonix Susp) 40 mg PO Q12 [facility] Last Admin: 10/25/18 21:25 Dose: 40 mg Sitagliptin Phosphate (Januvia) 50 mg PO DAILY [facility] Last Admin: 10/25/18 09:32 Dose: 50 mg - Labs Labs: 10/24/18 08:30 10/24/18 08:30
--- NOTE | 2018-10-26 06:31 | CP.PCM.PN ---
Subjective - Date & Time of Evaluation Date of Evaluation: 10/26/18 Time of Evaluation: 06:30 - Subjective Subjective: Patient is this morning not in any distress. Vital signs are stable. Blood pressure is elevated, mild tachycardia noted. Chest good air entry Heart sounds are regular Abdomen soft nontender. Seen by infectious disease. On Cubicin now. We will continue the current treatment. And will follow the patient. Will add Cardizem p.o. 30 mg 4 times daily Objective - Vital Signs/Intake and Output Vital Signs (last 24 hours): Temp Pulse Resp BP Pulse Ox 98.6 F 112 H 20 161/69 H 98 10/26/18 00:00 10/26/18 00:00 10/26/18 00:00 10/26/18 00:00 10/26/18 00:00 Intake and Output: 10/25/18 10/26/18 18:59 06:59 Intake Total 300 Output Total 800 Balance -500 - Medications Medications: Current Medications Acetaminophen (Tylenol 650 Mg Supp) 650 mg SD Q6 PRN PRN Reason: Fever >100.4 F Last Admin: 10/25/18 09:13 Dose: 650 mg Albuterol/Ipratropium (Duoneb 3 Mg/0.5 Mg (3 Ml) Ud) 3 ml INH RQ6 [facility] Last Admin: 10/26/18 01:35 Dose: 3 ml Diltiazem HCl (Cardizem) 30 mg PO QID [facility] Heparin Sodium (Porcine) (Heparin) 5,000 units SC Q8 [facility] Last Admin: 10/26/18 05:01 Dose: 5,000 units Meropenem 500 mg/ Sodium (Chloride) 100 mls @ 100 mls/hr IVPB Q8H [facility]; Protocol Last Admin: 10/26/18 05:14 Dose: 100 mls/hr Linezolid (Zyvox 600mg/300ml D5w) 600 mg in 300 mls @ 200 mls/hr IVPB Q12H [facility]; Protocol Last Admin: 10/26/18 06:15 Dose: 200 mls/hr Insulin Glargine (Lantus) 20 unit SC HS [facility] Last Admin: 10/25/18 21:24 Dose: 20 unit Insulin Human Regular (Novolin R) 0 unit SC ACHS [facility]; Protocol Last Admin: 10/25/18 21:25 Dose: Not Given Metoprolol Tartrate (Lopressor) 50 mg PO BID [facility] Last Admin: 10/25/18 18:26 Dose: Not Given Multivitamins (Hexavitamin) 1 tab PO DAILY [facility] Last Admin: 10/25/18 09:32 Dose: 1 tab Pantoprazole Sodium (Protonix Susp) 40 mg PO Q12 [facility] Last Admin: 10/25/18 21:25 Dose: 40 mg Sitagliptin Phosphate (Januvia) 50 mg PO DAILY [facility] Last Admin: 10/25/18 09:32 Dose: 50 mg - Labs Labs: 10/24/18 08:30 10/24/18 08:30
--- NOTE | 2018-10-26 07:27 | PQF ---
PROVIDER RESPONSE TEXT: Hyponatremia (Resolved) in the setting of Sepsis , Pneumonia and UTI , treated with IVF Hydration wit h NS REVIEWER QUERY TEXT: Clarification of Clinical Diagnostic Findings Please clarify documentation or clinical relevance for the clinical / diagnostic findings or whether those are insignificant or unable to be further specified. Hyponatremia (Resolved) in the setting of Sepsis , Pneumonia and UTI , treated with IVF Hydration wi th NS. -Other Explanation -Unable to Determine The patient's Clinical Indicators include: Clinical Findings : Na Level = 125 Treatment IVF w/ NS 500ml bolus followed by 1 L NS at 100ml/hr . Risk Factor : Infection, Dehydration Query created by: Sierra Hoang on 10/24/2018 3:26 PM Electronically signed by: Luis Manuel Patel MD 10/26/2018 7:24 AM
[2018-10-26] MEDS: (Novolin R) Insulin Human Regular 100 units/ml vial SC SCH ×4 (09:24→21:57)
[2018-10-26] MEDS: Pantoprazole 40 mg Susp UD PO SCH ×2 (09:27→21:57)
[2018-10-26] MEDS: Multiple Vitamins Tab PO SCH (09:28)
[2018-10-26 12:00] LABS: BASO # 0.1 K/uL (0.0-0.2); BASO % 1.1 % (0.0-2.0); EOS # 0.5 K/uL (0.0-0.7); EOS % 4.4 % (0.0-4.0); HEMOGLOBIN 10.5 g/dL (11.0-16.0); LYMPH # 1.1 K/uL (1.0-4.3); LYMPH % 8.6 % (20.0-40.0); MEAN CELL VOLUME 93.8 fL (81.0-99.0); MEAN CORPUSCULAR HEMOGLOBIN 32.2 pg (27.0-31.0); MEAN CORPUSCULAR HGB CONC 34.3 g/dL (33.0-37.0); MEAN PLATELET VOLUME 7.8 fL (7.2-11.7); MONO % 8.1 % (0.0-10.0); NEUT # 9.7 K/uL (1.8-7.0); NEUT % 77.8 % (50.0-75.0); NRBC % 0.3 % (0.0-2.0); PLATELET COUNT 369 K/uL (130-400); RBC 3.27 Mil/uL (3.80-5.20); RED CELL DISTRIBUTION WIDTH 16.9 % (11.5-14.5); WHITE BLOOD COUNT 12.5 K/uL (4.8-10.8)
[2018-10-26 12:16] LABS: ALB/GLOB RATIO 1.3 (1.0-2.1); ALBUMIN 3.8 g/dL (3.5-5.0); ALT/SGPT 15 U/L (9-52); AST/SGOT 18 U/L (14-36); BLOOD UREA NITROGEN 27 mg/dL (7-17); CALCIUM 9.9 mg/dl (8.6-10.4); GFR NON-AFRICAN AMERICAN > 60
[2018-10-26 12:30] LABS: BANDS 3 % (0-2); EOSINOPHIL 3 % (0-4); LYMPHOCYTE 9 % (20-40); MONOCYTE 6 % (0-10); NEUTROPHIL 79 % (50-75); TOTAL CELLS COUNTED 100
[2018-10-26 12:31] LABS: ANISOCYTOSIS SLIGHT; PLATELET ESTIMATE NORMAL (NORMAL)
[2018-10-26] MEDS: (Lantus) Insulin Glargine, Recombinant SC SCH (21:57)
--- NOTE | 2018-10-26 23:52 | CP.PCM.PN ---
Subjective - Date & Time of Evaluation Date of Evaluation: 10/26/18 Time of Evaluation: 23:52 - Subjective Subjective: CHIEF COMPLAINTS TODAY : TMAX 99.1 VSS MORE AWAKE AND OPENING EYES. ROS. on observation only. HEENT : N. Resp : No cough, wheezing ,pleuritic CP ,or hemoptysis Cardio : No anginal CP, PND, orthopnea, palpitation GI : No abd.pain, n/v ,diarrhea or GI bleeding . +VE PEG, NO MALFUNCTION, PEG SITE SLIGHTLY REDDENED. CHURCH SECRETARY : No headache, vertigo, focal deficit. Musculoskel : No joint swelling , Derm : No rash Psych : Normal affect. Ext : No swelling ,calf pain PE. Pt. is MOREawake in no distress. V.S As noted in the chart Head ,ear nose,throat and eyes : Normal. Neck : Supple with normal carotids. Lungs: DECREASED BREATH SOUNDS BASES. Heart : S1 & S2 normal with S4. No murmur. Abd : Soft non tender, +VE PEG IN PLACE, EXIT SITE SLIGHTLY REDDENED, with normal bowel sounds. Neuro : Moves all ext. with no localized deficit. Ext : No edema with intact pulses.Non tender calves Derm : No rashes or decubitus ulcer. LABS/RADIOLOGY: CT CHEST 10/22/18- 4 CM PLEURAL-BASED CONSOLIDATION LLL ? NEOPLASM /VS PNEUMONIA VS ATELECTASIS. ( see full report ) CT ABD/PELVIS W/O PO OR IV CONTRAST 10/22/18 --NOTED +vePEG , +ve pulmonary mass 2.6x 3.4 cm ? Distal ESOPHAGEAL thickening-? possible esophagitis versus neoplasm cannot be ruled out Objective - Vital Signs/Intake and Output Vital Signs (last 24 hours): Temp Pulse Resp BP Pulse Ox 98.9 F 84 20 107/67 98 10/26/18 16:42 10/26/18 20:11 10/26/18 16:42 10/26/18 16:42 10/26/18 16:42 Intake and Output: 10/26/18 10/27/18 18:59 06:59 Intake Total 660 110 Output Total 750 Balance 660 -640 - Medications Medications: Current Medications Acetaminophen (Tylenol 650 Mg Supp) 650 mg [place] Q6 PRN PRN Reason: Fever >100.4 F Last Admin: 10/25/18 09:13 Dose: 650 mg Albuterol/Ipratropium (Duoneb 3 Mg/0.5 Mg (3 Ml) Ud) 3 ml INH RQ6 [facility] Last Admin: 10/26/18 21:04 Dose: 3 ml Diltiazem HCl (Cardizem) 30 mg PO QID [facility] Last Admin: 10/26/18 21:56 Dose: 30 mg Heparin Sodium (Porcine) (Heparin) 5,000 units SC Q8 [facility] Last Admin: 10/26/18 21:56 Dose: 5,000 units Meropenem 500 mg/ Sodium (Chloride) 100 mls @ 100 mls/hr IVPB Q8H [facility]; Protocol Last Admin: 10/26/18 21:57 Dose: 100 mls/hr Linezolid (Zyvox 600mg/300ml D5w) 600 mg in 300 mls @ 200 mls/hr IVPB Q12H [facility]; Protocol Last Admin: 10/26/18 17:49 Dose: 200 mls/hr Insulin Glargine (Lantus) 20 unit SC HS [facility] Last Admin: 10/26/18 21:57 Dose: 20 unit Insulin Human Regular (Novolin R) 0 unit SC ACHS [facility]; Protocol Last Admin: 10/26/18 21:57 Dose: 2 unit Metoprolol Tartrate (Lopressor) 50 mg PO BID [facility] Last Admin: 10/26/18 17:48 Dose: 50 mg Multivitamins (Hexavitamin) 1 tab PO DAILY [facility] Last Admin: 10/26/18 09:28 Dose: 1 tab Pantoprazole Sodium (Protonix Susp) 40 mg PO Q12 [facility] Last Admin: 10/26/18 21:57 Dose: 40 mg Sitagliptin Phosphate (Januvia) 50 mg PO DAILY [facility] Last Admin: 10/26/18 09:28 Dose: 50 mg - Labs Labs: 10/26/18 11:46 10/26/18 11:46 Assessment and Plan (1) Gram negative septic shock Status: Acute (2) UTI (urinary tract infection) Status: Acute (3) Altered mental status Status: Acute (4) Leukocytosis Status: Acute (5) Gastrostomy tube in place Status: Acute (6) Diabetes 1.5, 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 WILL DISCUSS WITH PMD . W/U NEEDED FO DX. Status: Acute - Assessment and Plan (Free Text) Plan: Assessment and Plan: BLOOD CULTURES 10/22/18 +VE SERRATIA MARCESCENS /GRAM-POSITIVE COCCI. 1:2 SETS, PATIENT HAS HISTORY OF MULTIPLE ALLERGIES BUT HAS TOLERATED MEROPENEM IN THE PAST. D/C IV aVELOX. START iv MERREM 500 MG iv PIGGYBACK EVERY 8 HOURLY 10/25/18. ADD iv ZYVOX 600 MG iv PIGGYBACK EVERY 12 HOURLY. 10/25/18. 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 F/U U/A AND URINE CULTURES -STRAIGHT [id number] TO ADJUST ANTIBIOTICS. CASE DISCUSSED WITH THE STAFF.
[2018-10-27] MEDS: Albuterol-Ipratrop 3 mg / 0.5 (3 ml) UD INH SCH ×4 (02:39→20:34)
[2018-10-27] MEDS: Meropenem 500 MG in Sodium Chloride 0.9% 100 ML IVPB SCH ×3 (05:26→21:23)
[2018-10-27] MEDS: Linezolid 600 mg in D5W 300 ml 600 MG/300 ML BAG IVPB SCH ×2 (05:28→17:22)
[2018-10-27 07:03] LABS: SQUAMOUS EPITHIAL 3 /hpf (0-5); URINE BILIRUBIN NEGATIVE (NEGATIVE); URINE BLOOD NEGATIVE (NEGATIVE); URINE CLARITY Clear (Clear); URINE COLOR Yellow (YELLOW); URINE GLUCOSE (UA) 3+ mg/dL (Normal); URINE LEUKOCYTE ESTERASE TRACE Leu/uL (Negative); URINE PROTEIN 1+ mg/dL (NEGATIVE); URINE UROBILINOGEN NORMAL mg/dL (0.2-1.0)
[2018-10-27] MEDS: Pantoprazole 40 mg Susp UD PO SCH ×2 (10:45→21:24)
[2018-10-27] MEDS: (Novolin R) Insulin Human Regular 100 units/ml vial SC SCH ×4 (10:46→22:04)
[2018-10-27] MEDS: Multiple Vitamins Tab PO SCH (10:46)
[2018-10-27] MEDS: (Lantus) Insulin Glargine, Recombinant SC SCH (21:24)
[2018-10-28] MEDS: Linezolid 600 mg in D5W 300 ml 600 MG/300 ML BAG IVPB SCH ×2 (05:09→17:38)
[2018-10-28] MEDS: Meropenem 500 MG in Sodium Chloride 0.9% 100 ML IVPB SCH ×3 (05:18→21:49)
[2018-10-28] MEDS: (Novolin R) Insulin Human Regular 100 units/ml vial SC SCH ×4 (07:49→21:50)
[2018-10-28] MEDS: Multiple Vitamins Tab PO SCH (11:50)
[2018-10-28] MEDS: Pantoprazole 40 mg Susp UD PO SCH ×2 (11:51→21:50)
--- NOTE | 2018-10-28 16:36 | CP.PCM.PN ---
Subjective - Date & Time of Evaluation Date of Evaluation: 10/28/18 Time of Evaluation: 16:36 - Subjective Subjective: CHIEF COMPLAINTS TODAY : AFEBRILE VSS MORE AWAKE AND OPENING EYES. ROS. on observation only. HEENT : N. Resp : No cough, wheezing ,pleuritic CP ,or hemoptysis Cardio : No anginal CP, PND, orthopnea, palpitation GI : No abd.pain, n/v ,diarrhea or GI bleeding . +VE PEG, NO MALFUNCTION, PEG SITE SLIGHTLY REDDENED. 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 Musculoskel : No joint swelling , Derm : No rash Psych : Normal affect. Ext : No swelling ,calf pain PE. Pt. is MOREawake in no distress. V.S As noted in the chart Head ,ear nose,throat and eyes : Normal. Neck : Supple with normal carotids. Lungs: DECREASED BREATH SOUNDS BASES. Heart : S1 & S2 normal with S4. No murmur. Abd : Soft non tender, +VE PEG IN PLACE, EXIT SITE SLIGHTLY REDDENED, with normal bowel sounds. Neuro : Moves all ext. with no localized deficit. Ext : No edema with intact pulses.Non tender calves Derm : No rashes or decubitus ulcer. LABS/RADIOLOGY: CT CHEST 10/22/18- 4 CM PLEURAL-BASED CONSOLIDATION LLL ? NEOPLASM /VS PNEUMONIA VS ATELECTASIS. ( see full report ) CT ABD/PELVIS W/O PO OR IV CONTRAST 10/22/18 --NOTED +vePEG , +ve pulmonary mass 2.6x 3.4 cm ? Distal ESOPHAGEAL thickening-? possible esophagitis versus neoplasm cannot be ruled out Objective - Vital Signs/Intake and Output Vital Signs (last 24 hours): Temp Pulse Resp BP Pulse Ox 97.4 F L 92 H 18 165/78 H 100 10/28/18 15:00 10/28/18 16:11 10/28/18 15:00 10/28/18 15:00 10/28/18 15:00 Intake and Output: 10/28/18 10/28/18 06:59 18:59 Intake Total 1110 420 Output Total 650 700 Balance 460 -280 - Medications Medications: Current Medications Acetaminophen (Tylenol 650 Mg Supp) 650 mg [place] Q6 PRN PRN Reason: Fever >100.4 F Last Admin: 10/25/18 09:13 Dose: 650 mg Diltiazem HCl (Cardizem) 30 mg PO QID [facility] Last Admin: 10/28/18 14:01 Dose: 30 mg Heparin Sodium (Porcine) (Heparin) 5,000 units SC Q8 [facility] Last Admin: 10/28/18 14:01 Dose: 5,000 units Meropenem 500 mg/ Sodium (Chloride) 100 mls @ 100 mls/hr IVPB Q8H [facility]; Protocol Last Admin: 10/28/18 14:01 Dose: 100 mls/hr Linezolid (Zyvox 600mg/300ml D5w) 600 mg in 300 mls @ 200 mls/hr IVPB Q12H [facility]; Protocol Last Admin: 10/28/18 05:09 Dose: 200 mls/hr Insulin Glargine (Lantus) 25 unit SC HS [facility] Insulin Human Regular (Novolin R) 0 unit SC ACHS [facility]; Protocol Last Admin: 10/28/18 11:51 Dose: Not Given Metoprolol Tartrate (Lopressor) 50 mg PO BID [facility] Last Admin: 10/28/18 11:51 Dose: Not Given Multivitamins (Hexavitamin) 1 tab PO DAILY [facility] Last Admin: 10/28/18 11:50 Dose: Not Given Pantoprazole Sodium (Protonix Susp) 40 mg PO Q12 [facility] Last Admin: 10/28/18 11:51 Dose: Not Given Sitagliptin Phosphate (Januvia) 50 mg PO DAILY [facility] Last Admin: 10/28/18 11:50 Dose: Not Given - Labs Labs: 10/26/18 11:46 10/26/18 11:46 Assessment and Plan (1) Gram negative septic shock Status: Acute (2) UTI (urinary tract infection) Status: Acute (3) Leukocytosis Status: Acute (4) Altered mental status Status: Acute (5) Gastrostomy tube in place Status: Acute - Assessment and Plan (Free Text) Plan: Assessment and Plan: BLOOD CULTURES 10/22/18 +VE SERRATIA MARCESCENS /lACTOBACILLUS SPECIES 1:2 SETS, PATIENT HAS HISTORY OF MULTIPLE ALLERGIES BUT HAS TOLERATED MEROPENEM IN THE PAST. D/C IV AVELOX. CONTINUE iv MERREM 500 MG iv PIGGYBACK EVERY 8 HOURLY 10/25/18. ADD iv ZYVOX 600 MG iv PIGGYBACK EVERY 12 HOURLY. 10/25/18. REPEAT BLOOD CULTURES X 2 SETS IN AM BX LUNG MASS PER PMD. CASE DISCUSSED WITH THE STAFF.
--- NOTE | 2018-10-28 21:34 | CP.PCM.PN ---
Subjective - Date & Time of Evaluation Date of Evaluation: 10/28/18 Time of Evaluation: 21:33 - Subjective Subjective: Patient this morning was responding to simple commands. She was also able to answer the simple questions. She is not in any distress. Chest good air entry Heart sounds are regular Abdomen tenderness negative No pedal edema Tolerating the PEG tube feeding No recent labs. Assessment and recommendation: 88-year-old female with multiple medical problems and is status post a PEG. Now admitted with a septicemia, bacteremia. We will continue to monitor. On IV antibiotic. Repeat the labs tomorrow. We will discuss with infectious disease for possible discharge plan Objective - Vital Signs/Intake and Output Vital Signs (last 24 hours): Temp Pulse Resp BP Pulse Ox 97.4 F L 92 H 18 165/78 H 100 10/28/18 15:00 10/28/18 16:11 10/28/18 15:00 10/28/18 15:00 10/28/18 15:00 Intake and Output: 10/28/18 10/29/18 18:59 06:59 Intake Total 420 Output Total 700 Balance -280 - Medications Medications: Current Medications Acetaminophen (Tylenol 650 Mg Supp) 650 mg [place] Q6 PRN PRN Reason: Fever >100.4 F Last Admin: 10/25/18 09:13 Dose: 650 mg Diltiazem HCl (Cardizem) 30 mg PO QID [facility] Last Admin: 10/28/18 17:38 Dose: 30 mg Heparin Sodium (Porcine) (Heparin) 5,000 units SC Q8 [facility] Last Admin: 10/28/18 14:01 Dose: 5,000 units Meropenem 500 mg/ Sodium (Chloride) 100 mls @ 100 mls/hr IVPB Q8H [facility]; Protocol Last Admin: 10/28/18 14:01 Dose: 100 mls/hr Linezolid (Zyvox 600mg/300ml D5w) 600 mg in 300 mls @ 200 mls/hr IVPB Q12H [facility]; Protocol Last Admin: 10/28/18 17:38 Dose: 200 mls/hr Insulin Glargine (Lantus) 25 unit SC HS [facility] Insulin Human Regular (Novolin R) 0 unit SC ACHS [facility]; Protocol Last Admin: 10/28/18 17:38 Dose: 2 unit Metoprolol Tartrate (Lopressor) 50 mg PO BID [facility] Last Admin: 10/28/18 17:38 Dose: 50 mg Multivitamins (Hexavitamin) 1 tab PO DAILY [facility] Last Admin: 10/28/18 11:50 Dose: Not Given Pantoprazole Sodium (Protonix Susp) 40 mg PO Q12 [facility] Last Admin: 10/28/18 11:51 Dose: Not Given Sitagliptin Phosphate (Januvia) 50 mg PO DAILY [facility] Last Admin: 10/28/18 11:50 Dose: Not Given - Labs Labs: 10/26/18 11:46 10/26/18 11:46
[2018-10-28] MEDS: (Lantus) Insulin Glargine, Recombinant SC SCH (21:49)
[2018-10-29] MEDS: Meropenem 500 MG in Sodium Chloride 0.9% 100 ML IVPB SCH ×3 (05:51→21:22)
[2018-10-29] MEDS: Linezolid 600 mg in D5W 300 ml 600 MG/300 ML BAG IVPB SCH ×2 (06:51→18:20)
[2018-10-29] MEDS: (Novolin R) Insulin Human Regular 100 units/ml vial SC SCH ×4 (07:22→21:28)
[2018-10-29 08:28] LABS: ALB/GLOB RATIO 1.4 (1.0-2.1); ALBUMIN 4.1 g/dL (3.5-5.0); ALT/SGPT 12 U/L (9-52); AST/SGOT 23 U/L (14-36); BLOOD UREA NITROGEN 24 mg/dL (7-17); CALCIUM 10.2 mg/dl (8.6-10.4); GFR NON-AFRICAN AMERICAN > 60
[2018-10-29 08:52] LABS: BASO # 0.1 K/uL (0.0-0.2); EOS # 0.4 K/uL (0.0-0.7); HEMOGLOBIN 11.3 g/dL (11.0-16.0); MEAN CELL VOLUME 94.6 fL (81.0-99.0); MEAN CORPUSCULAR HEMOGLOBIN 31.3 pg (27.0-31.0); MEAN CORPUSCULAR HGB CONC 33.1 g/dL (33.0-37.0); NRBC % 0.1 % (0.0-2.0); RBC 3.62 Mil/uL (3.80-5.20); RED CELL DISTRIBUTION WIDTH 16.5 % (11.5-14.5)
[2018-10-29 08:54] LABS: BASO % 1.2 % (0.0-2.0); EOS % 4.2 % (0.0-4.0); LYMPH # 1.5 K/uL (1.0-4.3); LYMPH % 14.3 % (20.0-40.0); MEAN PLATELET VOLUME 7.4 fL (7.2-11.7); MONO # 0.8 K/uL (0.0-0.8); MONO % 7.7 % (0.0-10.0); NEUT # 7.4 K/uL (1.8-7.0); NEUT % 72.6 % (50.0-75.0); WHITE BLOOD COUNT 10.2 K/uL (4.8-10.8)
[2018-10-29] MEDS: Multiple Vitamins Tab PO SCH (10:44)
[2018-10-29] MEDS: Pantoprazole 40 mg Susp UD PO SCH ×2 (10:44→21:28)
--- NOTE | 2018-10-29 14:37 | CP.PCM.PN ---
Subjective - Date & Time of Evaluation Date of Evaluation: 10/29/18 Time of Evaluation: 14:36 - Subjective Subjective: CHIEF COMPLAINTS TODAY : AFEBRILE TACHYCARDIAC, WEAK MORE AWAKE AND OPENING EYES. ROS. on observation only. HEENT : N. Resp : No cough, wheezing ,pleuritic CP ,or hemoptysis Cardio : No anginal CP, PND, orthopnea, palpitation GI : No abd.pain, n/v ,diarrhea or GI bleeding . +VE PEG, NO MALFUNCTION, PEG SITE SLIGHTLY REDDENED. 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 Musculoskel : No joint swelling , Derm : No rash Psych : Normal affect. Ext : No swelling ,calf pain PE. Pt. is MOREawake in no distress. V.S As noted in the chart Head ,ear nose,throat and eyes : Normal. Neck : Supple with normal carotids. Lungs: DECREASED BREATH SOUNDS BASES. Heart : S1 & S2 normal with S4. No murmur. Abd : Soft non tender, +VE PEG IN PLACE, EXIT SITE SLIGHTLY REDDENED, with normal bowel sounds. Neuro : Moves all ext. with no localized deficit. Ext : No edema with intact pulses.Non tender calves Derm : No rashes or decubitus ulcer. LABS/RADIOLOGY: CT CHEST 10/22/18- 4 CM PLEURAL-BASED CONSOLIDATION LLL ? NEOPLASM /VS PNEUMONIA VS ATELECTASIS. ( see full report ) CT ABD/PELVIS W/O PO OR IV CONTRAST 10/22/18 --NOTED +vePEG , +ve pulmonary mass 2.6x 3.4 cm ? Distal ESOPHAGEAL thickening-? possible esophagitis versus neoplasm cannot be ruled out Objective - Vital Signs/Intake and Output Vital Signs (last 24 hours): Temp Pulse Resp BP Pulse Ox 98.6 F 111 H 18 165/81 H 100 10/29/18 08:25 10/29/18 08:25 10/29/18 08:25 10/29/18 08:25 10/29/18 08:25 Intake and Output: 10/29/18 10/29/18 06:59 18:59 Intake Total 560 Output Total 600 Balance -40 - Medications Medications: Current Medications Acetaminophen (Tylenol 650 Mg Supp) 650 mg [place] Q6 PRN PRN Reason: Fever >100.4 F Last Admin: 10/25/18 09:13 Dose: 650 mg Diltiazem HCl (Cardizem) 30 mg PO QID [facility] Last Admin: 10/29/18 13:49 Dose: 30 mg Heparin Sodium (Porcine) (Heparin) 5,000 units SC Q8 [facility] Last Admin: 10/29/18 13:49 Dose: 5,000 units Meropenem 500 mg/ Sodium (Chloride) 100 mls @ 100 mls/hr IVPB Q8H [facility]; Protocol Last Admin: 10/29/18 13:49 Dose: 100 mls/hr Linezolid (Zyvox 600mg/300ml D5w) 600 mg in 300 mls @ 200 mls/hr IVPB Q12H [facility]; Protocol Last Admin: 10/29/18 06:51 Dose: 200 mls/hr Insulin Glargine (Lantus) 25 unit SC HS [facility] Last Admin: 10/28/18 21:49 Dose: 25 unit Insulin Human Regular (Novolin R) 0 unit SC ACHS [facility]; Protocol Last Admin: 10/29/18 12:35 Dose: 3 unit Metoprolol Tartrate (Lopressor) 50 mg PO BID [facility] Last Admin: 10/29/18 10:44 Dose: 50 mg Multivitamins (Hexavitamin) 1 tab PO DAILY [facility] Last Admin: 10/29/18 10:44 Dose: 1 tab Pantoprazole Sodium (Protonix Susp) 40 mg PO Q12 [facility] Last Admin: 10/29/18 10:44 Dose: 40 mg Sitagliptin Phosphate (Januvia) 50 mg PO DAILY [facility] Last Admin: 10/29/18 10:44 Dose: 50 mg - Labs Labs: 10/29/18 07:50 10/29/18 07:50 Assessment and Plan (1) Gram negative septic shock Status: Acute (2) UTI (urinary tract infection) Status: Acute (3) Altered mental status Status: Acute (4) Leukocytosis Status: Acute (5) Gastrostomy tube in place Status: Acute (6) Diabetes 1.5, 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 CONTINUE iv ZYVOX 600 MG iv PIGGYBACK EVERY 12 HOURLY. 10/25/18. REPEAT BLOOD CULTURES X 2 SETS -P BX LUNG MASS PER PMD. Patient being made stable and prepared for biopsy lung. patient's family has agreed for the procedure. CASE DISCUSSED WITH THE STAFF.
--- NOTE | 2018-10-29 18:52 | CP.PCM.PN ---
Subjective - Date & Time of Evaluation Date of Evaluation: 10/29/18 Time of Evaluation: 18:50 - Subjective Subjective: Patient is now more awake and responding. No fever noted today. Patient was seen by anesthesiology team this morning, for possible lung biopsy. On examination: Vital signs are stable. Chest good air entry bilaterally, no wheezing or rales noted, regular [place] noted. Nontender abdomen. No pedal edema. Today labs reviewed Nonspecific EKG sinus rhythm no ST-T changes. Patient has a pacemaker Assessment and recommendation: 88-year-old female admitted to the hospital for multiple bacterial organisms sepsis. Currently on antibiotic. Also has a non-resolving pneumonia involving the left lung, suggested transthoracic needle biopsy. I already spoke to the patient's daughter in detail, and she agreed for the procedure and will follow the patient. Objective - Vital Signs/Intake and Output Vital Signs (last 24 hours): Temp Pulse Resp BP Pulse Ox 98.5 F 89 18 143/71 96 10/29/18 15:00 10/29/18 16:55 10/29/18 15:00 10/29/18 15:00 10/29/18 15:00 Intake and Output: 10/29/18 10/29/18 06:59 18:59 Intake Total 560 420 Output Total 600 400 Balance -40 20 - Medications Medications: Current Medications Acetaminophen (Tylenol 650 Mg Supp) [address] Q6 PRN PRN Reason: Fever >100.4 F Last Admin: 10/25/18 09:13 Dose: 650 mg Diltiazem HCl (Cardizem) 30 mg PO QID [facility] [place] Last Admin: 10/29/18 18:20 Dose: 30 mg Heparin Sodium (Porcine) (Heparin) 5,000 units SC Q8 [facility] Last Admin: 10/29/18 13:49 Dose: 5,000 units Meropenem 500 mg/ Sodium (Chloride) 100 mls @ 100 mls/hr IVPB Q8H [facility]; Protocol Last Admin: 10/29/18 13:49 Dose: 100 mls/hr Linezolid (Zyvox 600mg/300ml D5w) 600 mg in 300 mls @ 200 mls/hr IVPB Q12H [facility]; Protocol Last Admin: 10/29/18 18:20 Dose: 200 mls/hr Insulin Glargine (Lantus) 25 unit SC HS [facility] Last Admin: 10/28/18 21:49 Dose: 25 unit Insulin Human Regular (Novolin R) 0 unit SC ACHS [facility] [place]; Protocol Last Admin: 10/29/18 17:10 Dose: 3 unit Metoprolol Tartrate (Lopressor) 50 mg PO BID [facility] Last Admin: 10/29/18 18:19 Dose: 50 mg Multivitamins (Hexavitamin) 1 tab PO DAILY [facility] [place] Last Admin: 10/29/18 10:44 Dose: 1 tab Pantoprazole Sodium (Protonix Susp) 40 mg PO Q12 [facility] [place] Last Admin: 10/29/18 10:44 Dose: 40 mg Sitagliptin Phosphate (Januvia) 50 mg PO DAILY [facility] [place] Last Admin: 10/29/18 10:44 Dose: 50 mg - Labs Labs: 10/29/18 07:50 10/29/18 07:50
[2018-10-29] MEDS: (Lantus) Insulin Glargine, Recombinant SC SCH (21:29)
[2018-10-30] MEDS: Meropenem 500 MG in Sodium Chloride 0.9% 100 ML IVPB SCH ×3 (05:35→21:30)
[2018-10-30] MEDS: Linezolid 600 mg in D5W 300 ml 600 MG/300 ML BAG IVPB SCH ×2 (06:45→17:36)
[2018-10-30] MEDS: (Novolin R) Insulin Human Regular 100 units/ml vial SC SCH ×4 (07:49→21:30)
[2018-10-30] MEDS ORDERED: Nitroglycerin 2% Ointment Foilpak UD TOP STA (09:30)
[2018-10-30] MEDS: Multiple Vitamins Tab PO SCH ×2 (09:58→10:54)
[2018-10-30] MEDS: Pantoprazole 40 mg Susp UD PO SCH ×3 (09:59→21:29)
[2018-10-30] MEDS ORDERED: Midazolam 2 MG/2 ML VIAL ONE (10:15)
--- NOTE | 2018-10-30 10:31 | PCM.SURG1 ---
Surgeon's Initial Post Op Note - Surgeon's Notes Surgeon: Rafy Washington MD Baler Operator: NONE Type of Anesthesia: Local Pre-Operative Diagnosis: Lung mass Operative Findings: CT showed a left lower lobe consolidation and pleural thickening. Post-Operative Diagnosis: Lung mass Operation Performed: CT guided core biopsy. two-20 g core specimen obtained Specimen/Specimens Removed: 20 gauge core x 2 Estimated Blood Loss: EBL {In ML}: 0 Blood Products Given: N/A Drains Used: No Drains Post-Op Condition: Fair Date of Surgery/Procedure: 10/30/18 Time of Surgery/Procedure: 10:25
--- NOTE | 2018-10-30 11:20 | CT ---
PROCEDURE: Date of procedure: 10/30/2018 Procedure: 1. CT-guided lung mass biopsy, CPT [address] Guidance for biopsy, [address] Radiation: 333.95 MGy-cm Medications: The patient was sedated by anesthesiologist along with physiologic monitoring. HISTORY: Left lower lobe lung mass TECHNIQUE: Following informed consent and procedure time out, the patient was placed prone on the CT table and noncontrast CT scan was performed. Noncontrast CT scan confirmed the presence of a 3.5 cm left lung mass. A skin localizer was placed on the patient's LEFT back and a repeat CT scan was performed. The skin was marked, prepped, and draped in the usual sterile fashion. After the skin was anesthetized with lidocaine and the patient sedated by the anesthesiologist, a 20 gauge core needle was advanced percutaneously under direct CT guidance into the mass. Upon confirmation of needle position, two 20-gauge core specimens were obtained and sent for routine pathology. The needle was removed and a xeroform dressing was applied. A post biopsy CT scan showed no pneumothorax. IMPRESSION: CT guided core biopsy left lung mass.
--- NOTE | 2018-10-30 13:47 | RAD ---
Date of service: 10/30/2018 HISTORY: Status post left lung mass biopsy COMPARISON: Portable chest 10/22/2018. TECHNIQUE: 1 view obtained. FINDINGS: LUNGS: No acute infiltrate identified bilaterally. PLEURA: No significant pleural effusion identified, no pneumothorax apparent. CARDIOVASCULAR: Calcific atherosclerotic changes are seen related to the thoracic aorta. The cardiac size is stable. No pulmonary vascular congestion apparent. 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 No pulmonary vascular congestion. OSSEOUS STRUCTURES: No significant abnormalities. VISUALIZED UPPER ABDOMEN: Normal. OTHER FINDINGS: None. IMPRESSION: Stable cardiomegaly. No pulmonary vascular congestion. No interval airspace disease bilaterally or pleural effusion. No pneumothorax bilaterally.
--- NOTE | 2018-10-30 16:37 | CP.PCM.PN ---
Subjective - Date & Time of Evaluation Date of Evaluation: 10/30/18 Time of Evaluation: 16:37 - Subjective Subjective: CHIEF COMPLAINTS TODAY : AFEBRILE, VSS CLINICALLY UNCHANGED S/P BX LUNG TODAY BY IR 10/30/18 ROS. on observation only. HEENT : N. Resp : No cough, wheezing ,pleuritic CP ,or hemoptysis Cardio : No anginal CP, PND, orthopnea, palpitation GI : No abd.pain, n/v ,diarrhea or GI bleeding . +VE PEG, NO MALFUNCTION, PEG SITE SLIGHTLY REDDENED. 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 Musculoskel : No joint swelling , Derm : No rash Psych : Normal affect. Ext : No swelling ,calf pain PE. Pt. is MOREawake in no distress. V.S As noted in the chart Head ,ear nose,throat and eyes : Normal. Neck : Supple with normal carotids. Lungs: DECREASED BREATH SOUNDS BASES. Heart : S1 & S2 normal with S4. No murmur. Abd : Soft non tender, +VE PEG IN PLACE, EXIT SITE SLIGHTLY REDDENED, with normal bowel sounds. Neuro : Moves all ext. with no localized deficit. Ext : No edema with intact pulses.Non tender calves Derm : No rashes or decubitus ulcer. LABS/RADIOLOGY: REPEAT BLOOD CULTURE 10/29/18 -VE X24HRS CT CHEST 10/22/18- 4 CM PLEURAL-BASED CONSOLIDATION LLL ? NEOPLASM /VS PNEUMONIA VS ATELECTASIS. ( see full report ) Objective - Vital Signs/Intake and Output Vital Signs (last 24 hours): Temp Pulse Resp BP Pulse Ox 97.3 F L 89 20 152/81 H 94 L 10/30/18 10:52 10/30/18 16:33 10/30/18 10:52 10/30/18 10:52 10/30/18 10:52 Intake and Output: 10/30/18 10/30/18 06:59 18:59 Intake Total 560 260 Output Total 600 250 Balance -40 10 - Medications Medications: Current Medications Acetaminophen (Tylenol 650 Mg Supp) 650 mg [place] Q6 PRN PRN Reason: Fever >100.4 F Last Admin: 10/25/18 09:13 Dose: 650 mg Diltiazem HCl (Cardizem) 30 mg PO QID [facility] Last Admin: 10/30/18 13:36 Dose: 30 mg Heparin Sodium (Porcine) (Heparin) 5,000 units SC Q8 [facility] Last Admin: 10/30/18 13:36 Dose: 5,000 units Meropenem 500 mg/ Sodium (Chloride) 100 mls @ 100 mls/hr IVPB Q8H [facility]; Protocol Last Admin: 10/30/18 13:36 Dose: 100 mls/hr Linezolid (Zyvox 600mg/300ml D5w) 600 mg in 300 mls @ 200 mls/hr IVPB Q12H [facility]; Protocol Last Admin: 10/30/18 06:45 Dose: 200 mls/hr Insulin Glargine (Lantus) 25 unit SC HS [facility] Last Admin: 10/29/18 21:29 Dose: Not Given Insulin Human Regular (Novolin R) 0 unit SC ACHS [facility]; Protocol Last Admin: 10/30/18 12:25 Dose: 4 unit Metoprolol Tartrate (Lopressor) 50 mg PO BID [facility] Last Admin: 10/30/18 10:54 Dose: 50 mg Multivitamins (Hexavitamin) 1 tab PO DAILY [facility] Last Admin: 10/30/18 10:54 Dose: 1 tab Pantoprazole Sodium (Protonix Susp) 40 mg PO Q12 [facility] Last Admin: 10/30/18 10:54 Dose: 40 mg Sitagliptin Phosphate (Januvia) 50 mg PO DAILY [facility] Last Admin: 10/30/18 10:54 Dose: 50 mg - Labs Labs: 10/29/18 07:50 10/29/18 07:50 Assessment and Plan (1) Gram negative septic shock Status: Acute (2) UTI (urinary tract infection) Status: Acute (3) Altered mental status Status: Acute (4) Leukocytosis Status: Acute (5) Gastrostomy tube in place Status: Acute (6) Diabetes 1.5, 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 CONTINUE iv ZYVOX 600 MG iv PIGGYBACK EVERY 12 HOURLY. 10/25/18. REPEAT BLOOD CULTURES X 2 SETS -P BX LUNG MASS PER PMD TODAY WILL F/U.
[2018-10-30] MEDS: (Lantus) Insulin Glargine, Recombinant SC SCH (21:30)
[2018-10-31] MEDS: Meropenem 500 MG in Sodium Chloride 0.9% 100 ML IVPB SCH ×3 (05:14→21:50)
[2018-10-31] MEDS: Linezolid 600 mg in D5W 300 ml 600 MG/300 ML BAG IVPB SCH ×2 (06:21→18:09)
[2018-10-31] MEDS: (Novolin R) Insulin Human Regular 100 units/ml vial SC SCH ×4 (08:49→21:48)
[2018-10-31] MEDS: Multiple Vitamins Tab PO SCH (11:54)
[2018-10-31] MEDS: Pantoprazole 40 mg Susp UD PO SCH ×2 (11:54→21:53)
--- NOTE | 2018-10-31 14:13 | CP.PCM.PN ---
Subjective - Date & Time of Evaluation Date of Evaluation: 10/31/18 Time of Evaluation: 14:13 - Subjective Subjective: CHIEF COMPLAINTS TODAY : AFEBRILE, VSS RESTING COMFORTABLY. S/P BX LUNG BY IR 10/30/18 ROS. on observation only. HEENT : N. Resp : No cough, wheezing ,pleuritic CP ,or hemoptysis Cardio : No anginal CP, PND, orthopnea, palpitation GI : No abd.pain, n/v ,diarrhea or GI bleeding . +VE PEG, NO MALFUNCTION, PEG SITE SLIGHTLY REDDENED. 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 Musculoskel : No joint swelling , Derm : No rash Psych : Normal affect. Ext : No swelling ,calf pain PE. Pt. is MOREawake in no distress. V.S As noted in the chart Head ,ear nose,throat and eyes : Normal. Neck : Supple with normal carotids. Lungs: DECREASED BREATH SOUNDS BASES. Heart : S1 & S2 normal with S4. No murmur. Abd : Soft non tender, +VE PEG IN PLACE, EXIT SITE SLIGHTLY REDDENED, with normal bowel sounds. Neuro : Moves all ext. with no localized deficit. Ext : No edema with intact pulses.Non tender calves Derm : No rashes or decubitus ulcer. LABS/RADIOLOGY: REPEAT BLOOD CULTURE 10/29/18 -VE X [address] CHEST 10/22/18- 4 CM PLEURAL-BASED CONSOLIDATION LLL ? NEOPLASM /VS PNEUMONIA VS ATELECTASIS. ( see full report ) Objective - Vital Signs/Intake and Output Vital Signs (last 24 hours): Temp Pulse Resp BP Pulse Ox 98.3 F 104 H 18 197/90 H 100 10/31/18 07:00 10/31/18 07:00 10/31/18 07:00 10/31/18 07:00 10/31/18 07:00 Intake and Output: 10/31/18 10/31/18 06:59 18:59 Intake Total 760 Output Total 300 Balance 460 - Medications Medications: Current Medications Acetaminophen (Tylenol 650 Mg Supp) 650 mg [place] Q6 PRN PRN Reason: Fever >100.4 F Last Admin: 10/25/18 09:13 Dose: 650 mg Diltiazem HCl (Cardizem) 30 mg PO QID [facility] Last Admin: 10/31/18 13:41 Dose: 30 mg Heparin Sodium (Porcine) (Heparin) 5,000 units SC Q8 [facility] Last Admin: 10/31/18 13:38 Dose: 5,000 units Meropenem 500 mg/ Sodium (Chloride) 100 mls @ 100 mls/hr IVPB Q8H [facility]; Protocol Last Admin: 10/31/18 13:37 Dose: 100 mls/hr Linezolid (Zyvox 600mg/300ml D5w) 600 mg in 300 mls @ 200 mls/hr IVPB Q12H [facility]; Protocol Last Admin: 10/31/18 06:21 Dose: 200 mls/hr Insulin Glargine (Lantus) 25 unit SC HS [facility] Last Admin: 10/30/18 21:30 Dose: 25 unit Insulin Human Regular (Novolin R) 0 unit SC ACHS [facility]; Protocol Last Admin: 10/31/18 13:38 Dose: 4 unit Metoprolol Tartrate (Lopressor) 50 mg PO BID [facility] Last Admin: 10/31/18 11:55 Dose: 50 mg Multivitamins (Hexavitamin) 1 tab PO DAILY [facility] Last Admin: 10/31/18 11:54 Dose: 1 tab Pantoprazole Sodium (Protonix Susp) 40 mg PO Q12 [facility] Last Admin: 10/31/18 11:54 Dose: 40 mg Sitagliptin Phosphate (Januvia) 50 mg PO DAILY [facility] Last Admin: 10/31/18 11:55 Dose: 50 mg - Labs Labs: 10/29/18 07:50 10/29/18 07:50 Assessment and Plan (1) Gram negative septic shock Status: Acute (2) UTI (urinary tract infection) Status: Acute (3) Altered mental status Status: Acute (4) Leukocytosis Status: Acute (5) Gastrostomy tube in place Status: Acute (6) Diabetes 1.5, 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 CONTINUE iv ZYVOX 600 MG iv PIGGYBACK EVERY 12 HOURLY. 10/25/18. REPEAT BLOOD CULTURES -VE TO DATE BX LUNG MASS -DONE -RESULTS PENDING. WILL F/U.
[2018-10-31] MEDS: (Lantus) Insulin Glargine, Recombinant SC SCH (21:49)
[2018-11-01] MEDS: Meropenem 500 MG in Sodium Chloride 0.9% 100 ML IVPB SCH ×3 (05:30→21:48)
[2018-11-01] MEDS: Linezolid 600 mg in D5W 300 ml 600 MG/300 ML BAG IVPB SCH ×2 (06:30→17:49)
[2018-11-01 08:08] LABS: BASO # 0.1 K/uL (0.0-0.2); BASO % 1.3 % (0.0-2.0); EOS # 0.5 K/uL (0.0-0.7); EOS % 4.6 % (0.0-4.0); HEMOGLOBIN 11.8 g/dL (11.0-16.0); LYMPH # 1.4 K/uL (1.0-4.3); LYMPH % 13.9 % (20.0-40.0); MEAN CORPUSCULAR HEMOGLOBIN 33.1 pg (27.0-31.0); MEAN CORPUSCULAR HGB CONC 35.7 g/dL (33.0-37.0); MEAN PLATELET VOLUME 7.6 fL (7.2-11.7); MONO # 0.7 K/uL (0.0-0.8); MONO % 7.1 % (0.0-10.0); NEUT # 7.2 K/uL (1.8-7.0); NEUT % 73.1 % (50.0-75.0); NRBC % 0.2 % (0.0-2.0); RBC 3.57 Mil/uL (3.80-5.20); RED CELL DISTRIBUTION WIDTH 16.3 % (11.5-14.5); WHITE BLOOD COUNT 9.9 K/uL (4.8-10.8)
[2018-11-01 08:10] LABS: MEAN CELL VOLUME 92.6 fL (81.0-99.0)
[2018-11-01 08:15] LABS: BLOOD UREA NITROGEN 27 mg/dL (7-17); CALCIUM 10.4 mg/dl (8.6-10.4); GFR NON-AFRICAN AMERICAN > 60
[2018-11-01] MEDS: (Novolin R) Insulin Human Regular 100 units/ml vial SC SCH ×4 (08:15→21:38)
[2018-11-01] MEDS: Multiple Vitamins Tab PO SCH (09:52)
[2018-11-01] MEDS: Pantoprazole 40 mg Susp UD PO SCH ×2 (09:52→21:48)
--- NOTE | 2018-11-01 11:12 | CP.PCM.PN ---
Subjective - Date & Time of Evaluation Date of Evaluation: 11/01/18 Time of Evaluation: 11:12 - Subjective Subjective: CHIEF COMPLAINTS TODAY : AFEBRILE, TACHYCARDIAC +VE SECRETIONS S/P BX LUNG BY IR 10/30/18-P ROS. on observation only. HEENT : N. Resp : No cough, wheezing ,pleuritic CP ,or hemoptysis Cardio : No anginal CP, PND, orthopnea, palpitation GI : No abd.pain, n/v ,diarrhea or GI bleeding . +VE PEG, NO MALFUNCTION, PEG SITE SLIGHTLY REDDENED. 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 Musculoskel : No joint swelling , Derm : No rash Psych : Normal affect. Ext : No swelling ,calf pain PE. Pt. is MOREawake in no distress. V.S As noted in the chart Head ,ear nose,throat and eyes : Normal. Neck : Supple with normal carotids. Lungs: DECREASED BREATH SOUNDS BASES. Heart : S1 & S2 normal with S4. No murmur. Abd : Soft non tender, +VE PEG IN PLACE, EXIT SITE SLIGHTLY REDDENED, with normal bowel sounds. Neuro : Moves all ext. with no localized deficit. Ext : No edema with intact pulses.Non tender calves Derm : No rashes or decubitus ulcer. LABS/RADIOLOGY: REPEAT BLOOD CULTURE 10/29/18 -VE X 3 DAYS URINE CULTURES -VE GROWTH. Objective - Vital Signs/Intake and Output Vital Signs (last 24 hours): Temp Pulse Resp BP Pulse Ox 97.6 F 100 H 20 185/86 H 96 11/01/18 07:20 11/01/18 07:20 11/01/18 07:20 11/01/18 07:20 11/01/18 07:20 Intake and Output: 11/01/18 11/01/18 06:59 18:59 Intake Total 1000 Output Total 900 Balance 100 - Medications Medications: Current Medications Acetaminophen (Tylenol 650 Mg Supp) 650 mg [place] Q6 PRN PRN Reason: Fever >100.4 F Last Admin: 10/25/18 09:13 Dose: 650 mg Diltiazem HCl (Cardizem) 30 mg PO QID [facility] Last Admin: 11/01/18 09:52 Dose: 30 mg Heparin Sodium (Porcine) (Heparin) 5,000 units SC Q8 [facility] Last Admin: 11/01/18 06:27 Dose: 5,000 units Meropenem 500 mg/ Sodium (Chloride) 100 mls @ 100 mls/hr IVPB Q8H [facility]; Protocol Last Admin: 11/01/18 05:30 Dose: 100 mls/hr Linezolid (Zyvox 600mg/300ml D5w) 600 mg in 300 mls @ 200 mls/hr IVPB Q12H [facility]; Protocol Last Admin: 11/01/18 06:30 Dose: 200 mls/hr Insulin Glargine (Lantus) 25 unit SC HS [facility] Last Admin: 10/31/18 21:49 Dose: 25 unit Insulin Human Regular (Novolin R) 0 unit SC ACHS [facility]; Protocol Last Admin: 11/01/18 08:15 Dose: 3 unit Metoprolol Tartrate (Lopressor) 50 mg PO BID [facility] Last Admin: 11/01/18 09:52 Dose: 50 mg Multivitamins (Hexavitamin) 1 tab PO DAILY [facility] Last Admin: 11/01/18 09:52 Dose: 1 tab Pantoprazole Sodium (Protonix Susp) 40 mg PO Q12 [facility] Last Admin: 11/01/18 09:52 Dose: 40 mg Sitagliptin Phosphate (Januvia) 50 mg PO DAILY [facility] Last Admin: 11/01/18 09:52 Dose: 50 mg - Labs Labs: 11/01/18 07:49 11/01/18 07:49 Assessment and Plan (1) Gram negative septic shock Status: Acute (2) UTI (urinary tract infection) Status: Acute (3) Altered mental status Status: Acute (4) Leukocytosis Status: Acute (5) Gastrostomy tube in place Status: Acute (6) Diabetes 1.5, 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 CONTINUE iv ZYVOX 600 MG iv PIGGYBACK EVERY 12 HOURLY. 10/25/18. BX LUNG MASS -DONE -RESULTS PENDING. WILL F/U.
[2018-11-01] MEDS: (Lantus) Insulin Glargine, Recombinant SC SCH (21:48)
[2018-11-02] MEDS: Meropenem 500 MG in Sodium Chloride 0.9% 100 ML IVPB SCH ×3 (05:15→22:25)
[2018-11-02] MEDS: Linezolid 600 mg in D5W 300 ml 600 MG/300 ML BAG IVPB SCH ×2 (06:13→17:42)
[2018-11-02] MEDS: (Novolin R) Insulin Human Regular 100 units/ml vial SC SCH ×4 (08:35→22:02)
[2018-11-02] MEDS: Pantoprazole 40 mg Susp UD PO SCH ×2 (09:41→22:25)
[2018-11-02] MEDS: Multiple Vitamins Tab PO SCH (09:41)
[2018-11-02] MEDS: (Lantus) Insulin Glargine, Recombinant SC SCH (22:25)
--- NOTE | 2018-11-02 23:20 | CP.PCM.PN ---
Subjective - Date & Time of Evaluation Date of Evaluation: 11/02/18 Time of Evaluation: 23:20 - Subjective Subjective: CHIEF COMPLAINTS TODAY : AFEBRILE, ON IV ABX S/P BX LUNG BY IR 10/30/18-P ROS. on observation only. HEENT : N. Resp : No cough, wheezing ,pleuritic CP ,or hemoptysis Cardio : No anginal CP, PND, orthopnea, palpitation GI : No abd.pain, n/v ,diarrhea or GI bleeding . +VE PEG, NO MALFUNCTION, PEG SITE SLIGHTLY REDDENED. 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 Musculoskel : No joint swelling , Derm : No rash Psych : Normal affect. Ext : No swelling ,calf pain PE. Pt. is MOREawake in no distress. V.S As noted in the chart Head ,ear nose,throat and eyes : Normal. Neck : Supple with normal carotids. Lungs: DECREASED BREATH SOUNDS BASES. Heart : S1 & S2 normal with S4. No murmur. Abd : Soft non tender, +VE PEG IN PLACE, EXIT SITE SLIGHTLY REDDENED, with normal bowel sounds. Neuro : Moves all ext. with no localized deficit. Ext : No edema with intact pulses.Non tender calves Derm : No rashes or decubitus ulcer. LABS/RADIOLOGY: REPEAT BLOOD CULTURE 10/29/18 -VE X 3 DAYS URINE CULTURES -VE GROWTH. Objective - Vital Signs/Intake and Output Vital Signs (last 24 hours): Temp Pulse Resp BP Pulse Ox 98.0 F 79 18 136/75 100 11/02/18 15:00 11/02/18 15:20 11/02/18 15:00 11/02/18 15:00 11/02/18 15:00 Intake and Output: 11/02/18 11/03/18 18:59 06:59 Intake Total 680 Output Total 400 Balance 280 - Medications Medications: Current Medications Acetaminophen (Tylenol 650 Mg Supp) 650 mg [place] Q6 PRN PRN Reason: Fever >100.4 F Last Admin: 10/25/18 09:13 Dose: 650 mg Diltiazem HCl (Cardizem) 30 mg PO QID [facility] Last Admin: 11/02/18 22:25 Dose: 30 mg Heparin Sodium (Porcine) (Heparin) 5,000 units SC Q8 [facility] Last Admin: 11/02/18 22:25 Dose: 5,000 units Meropenem 500 mg/ Sodium (Chloride) 100 mls @ 100 mls/hr IVPB Q8H [facility]; Protocol Last Admin: 11/02/18 22:25 Dose: 100 mls/hr Linezolid (Zyvox 600mg/300ml D5w) 600 mg in 300 mls @ 200 mls/hr IVPB Q12H [facility]; Protocol Last Admin: 11/02/18 17:42 Dose: 200 mls/hr Insulin Glargine (Lantus) 25 unit SC HS [facility] Last Admin: 11/02/18 22:25 Dose: 25 unit Insulin Human Regular (Novolin R) 0 unit SC ACHS [facility]; Protocol Last Admin: 11/02/18 22:02 Dose: Not Given Metoprolol Tartrate (Lopressor) 50 mg PO BID [facility] Last Admin: 11/02/18 17:42 Dose: 50 mg Multivitamins (Hexavitamin) 1 tab PO DAILY [facility] Last Admin: 11/02/18 09:41 Dose: 1 tab Pantoprazole Sodium (Protonix Susp) 40 mg PO Q12 [facility] Last Admin: 11/02/18 22:25 Dose: 40 mg Sitagliptin Phosphate (Januvia) 50 mg PO DAILY [facility] Last Admin: 11/02/18 09:41 Dose: 50 mg - Labs Labs: 11/01/18 07:49 11/01/18 07:49 Assessment and Plan (1) Gram negative septic shock Status: Acute (2) UTI (urinary tract infection) Status: Acute (3) Altered mental status Status: Acute (4) Leukocytosis Status: Acute (5) Gastrostomy tube in place Status: Acute (6) Diabetes 1.5, 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 CONTINUE iv ZYVOX 600 MG iv PIGGYBACK EVERY 12 HOURLY. 10/25/18. BX LUNG MASS -DONE -RESULTS PENDING. PULMONARY TOILET. OOB ON CHAIR / AND CHANGING POSITION PT Q 4HRLY. DEC CAREE
[2018-11-03] MEDS: Meropenem 500 MG in Sodium Chloride 0.9% 100 ML IVPB SCH ×3 (05:17→21:21)
[2018-11-03] MEDS: Linezolid 600 mg in D5W 300 ml 600 MG/300 ML BAG IVPB SCH ×2 (06:17→17:39)
[2018-11-03] MEDS: Pantoprazole 40 mg Susp UD PO SCH ×2 (09:07→21:13)
[2018-11-03] MEDS: (Novolin R) Insulin Human Regular 100 units/ml vial SC SCH ×4 (09:07→21:04)
[2018-11-03] MEDS: Multiple Vitamins Tab PO SCH (09:07)
--- NOTE | 2018-11-03 18:43 | CP.PCM.PN ---
Subjective - Date & Time of Evaluation Date of Evaluation: 10/30/18 Time of Evaluation: 18:43 - Subjective Subjective: Patient had a lung biopsy, currently pending results. We will continue to monitor. On antibiotic. ID follow-up as needed Objective - Vital Signs/Intake and Output Vital Signs (last 24 hours): Temp Pulse Resp BP Pulse Ox 98.5 F 70 18 128/67 100 11/03/18 16:55 11/03/18 16:55 11/03/18 16:55 11/03/18 16:55 11/03/18 16:55 Intake and Output: 11/03/18 11/03/18 06:59 18:59 Intake Total 320 780 Output Total 100 600 Balance 220 180 - Medications Medications: Current Medications Acetaminophen (Tylenol 650 Mg Supp) 650 mg [place] Q6 PRN PRN Reason: Fever >100.4 F Last Admin: 10/25/18 09:13 Dose: 650 mg Diltiazem HCl (Cardizem) 30 mg PO QID [facility] Last Admin: 11/03/18 17:40 Dose: 30 mg Heparin Sodium (Porcine) (Heparin) 5,000 units SC Q8 [facility] Last Admin: 11/03/18 13:46 Dose: 5,000 units Meropenem 500 mg/ Sodium (Chloride) 100 mls @ 100 mls/hr IVPB Q8H [facility]; Protocol Last Admin: 11/03/18 13:47 Dose: 100 mls/hr Linezolid (Zyvox 600mg/300ml D5w) 600 mg in 300 mls @ 200 mls/hr IVPB Q12H [facility]; Protocol Last Admin: 11/03/18 17:39 Dose: 200 mls/hr Insulin Glargine (Lantus) 25 unit SC HS [facility] Last Admin: 11/02/18 22:25 Dose: 25 unit Insulin Human Regular (Novolin R) 0 unit SC ACHS [facility]; Protocol Last Admin: 11/03/18 17:40 Dose: 2 unit Metoprolol Tartrate (Lopressor) 50 mg PO BID [facility] Last Admin: 11/03/18 17:40 Dose: 50 mg Multivitamins (Hexavitamin) 1 tab PO DAILY [facility] Last Admin: 11/03/18 09:07 Dose: 1 tab Pantoprazole Sodium (Protonix Susp) 40 mg PO Q12 [facility] Last Admin: 11/03/18 09:07 Dose: 40 mg Sitagliptin Phosphate (Januvia) 50 mg PO DAILY [facility] Last Admin: 11/03/18 09:07 Dose: 50 mg - Labs Labs: 11/01/18 07:49 11/01/18 07:49
--- NOTE | 2018-11-03 18:43 | CP.PCM.PN ---
Subjective - Date & Time of Evaluation Date of Evaluation: 11/02/18 Time of Evaluation: 18:43 - Subjective Subjective: Patient is not in any distress No fever this morning. No chest pain. Patient is awake but noncommunicative nonverbal. On antibiotic at this time, we will continue the current treatment, discharge plan once the infection is under control by the antibiotic. And a possible discharge plan onset is cleared by ID Objective - Vital Signs/Intake and Output Vital Signs (last 24 hours): Temp Pulse Resp BP Pulse Ox 98.5 F 70 18 128/67 100 11/03/18 16:55 11/03/18 16:55 11/03/18 16:55 11/03/18 16:55 11/03/18 16:55 Intake and Output: 11/03/18 11/03/18 06:59 18:59 Intake Total 320 780 Output Total 100 600 Balance 220 180 - Medications Medications: Current Medications Acetaminophen (Tylenol 650 Mg Supp) 650 mg [place] Q6 PRN PRN Reason: Fever >100.4 F Last Admin: 10/25/18 09:13 Dose: 650 mg Diltiazem HCl (Cardizem) 30 mg PO QID [facility] Last Admin: 11/03/18 17:40 Dose: 30 mg Heparin Sodium (Porcine) (Heparin) 5,000 units SC Q8 [facility] Last Admin: 11/03/18 13:46 Dose: 5,000 units Meropenem 500 mg/ Sodium (Chloride) 100 mls @ 100 mls/hr IVPB Q8H [facility]; Protocol Last Admin: 11/03/18 13:47 Dose: 100 mls/hr Linezolid (Zyvox 600mg/300ml D5w) 600 mg in 300 mls @ 200 mls/hr IVPB Q12H [facility]; Protocol Last Admin: 11/03/18 17:39 Dose: 200 mls/hr Insulin Glargine (Lantus) 25 unit SC HS [facility] Last Admin: 11/02/18 22:25 Dose: 25 unit Insulin Human Regular (Novolin R) 0 unit SC ACHS [facility]; Protocol Last Admin: 11/03/18 17:40 Dose: 2 unit Metoprolol Tartrate (Lopressor) 50 mg PO BID [facility] Last Admin: 11/03/18 17:40 Dose: 50 mg Multivitamins (Hexavitamin) 1 tab PO DAILY [facility] Last Admin: 11/03/18 09:07 Dose: 1 tab Pantoprazole Sodium (Protonix Susp) 40 mg PO Q12 [facility] Last Admin: 11/03/18 09:07 Dose: 40 mg Sitagliptin Phosphate (Januvia) 50 mg PO DAILY [facility] Last Admin: 11/03/18 09:07 Dose: 50 mg - Labs Labs: 11/01/18 07:49 11/01/18 07:49
--- NOTE | 2018-11-03 18:44 | CP.PCM.PN ---
Subjective - Date & Time of Evaluation Date of Evaluation: 10/31/18 Time of Evaluation: 17:00 - Subjective Subjective: Patient is not in any distress. Chest clear Heart sounds are regular Abdomen soft. Edema noted. Patient has multi-organisms pneumonia. Bacteremia noted. Infectious disease follow-up needed Objective - Vital Signs/Intake and Output Vital Signs (last 24 hours): Temp Pulse Resp BP Pulse Ox 98.5 F 70 18 128/67 100 11/03/18 16:55 11/03/18 16:55 11/03/18 16:55 11/03/18 16:55 11/03/18 16:55 Intake and Output: 11/03/18 11/03/18 06:59 18:59 Intake Total 320 780 Output Total 100 600 Balance 220 180 - Medications Medications: Current Medications Acetaminophen (Tylenol 650 Mg Supp) 650 mg [place] Q6 PRN PRN Reason: Fever >100.4 F Last Admin: 10/25/18 09:13 Dose: 650 mg Diltiazem HCl (Cardizem) 30 mg PO QID [facility] Last Admin: 11/03/18 17:40 Dose: 30 mg Heparin Sodium (Porcine) (Heparin) 5,000 units SC Q8 [facility] Last Admin: 11/03/18 13:46 Dose: 5,000 units Meropenem 500 mg/ Sodium (Chloride) 100 mls @ 100 mls/hr IVPB Q8H [facility]; Protocol Last Admin: 11/03/18 13:47 Dose: 100 mls/hr Linezolid (Zyvox 600mg/300ml D5w) 600 mg in 300 mls @ 200 mls/hr IVPB Q12H [facility]; Protocol Last Admin: 11/03/18 17:39 Dose: 200 mls/hr Insulin Glargine (Lantus) 25 unit SC HS [facility] Last Admin: 11/02/18 22:25 Dose: 25 unit Insulin Human Regular (Novolin R) 0 unit SC ACHS [facility]; Protocol Last Admin: 11/03/18 17:40 Dose: 2 unit Metoprolol Tartrate (Lopressor) 50 mg PO BID [facility] Last Admin: 11/03/18 17:40 Dose: 50 mg Multivitamins (Hexavitamin) 1 tab PO DAILY [facility] Last Admin: 11/03/18 09:07 Dose: 1 tab Pantoprazole Sodium (Protonix Susp) 40 mg PO Q12 [facility] Last Admin: 11/03/18 09:07 Dose: 40 mg Sitagliptin Phosphate (Januvia) 50 mg PO DAILY [facility] Last Admin: 11/03/18 09:07 Dose: 50 mg - Labs Labs: 11/01/18 07:49 11/01/18 07:49
--- NOTE | 2018-11-03 18:44 | CP.PCM.PN ---
Subjective - Date & Time of Evaluation Date of Evaluation: 11/01/18 Time of Evaluation: 14:00 - Subjective Subjective: Patient has no fever at this time. Tolerating the feeding. The glucose is controlled well. We will continue to monitor. Patient will need further management of antibiotic. Awaiting for biopsy report and will follow the patient Objective - Vital Signs/Intake and Output Vital Signs (last 24 hours): Temp Pulse Resp BP Pulse Ox 98.5 F 70 18 128/67 100 11/03/18 16:55 11/03/18 16:55 11/03/18 16:55 11/03/18 16:55 11/03/18 16:55 Intake and Output: 11/03/18 11/03/18 06:59 18:59 Intake Total 320 780 Output Total 100 600 Balance 220 180 - Medications Medications: Current Medications Acetaminophen (Tylenol 650 Mg Supp) 650 mg [place] Q6 PRN PRN Reason: Fever >100.4 F Last Admin: 10/25/18 09:13 Dose: 650 mg Diltiazem HCl (Cardizem) 30 mg PO QID [facility] Last Admin: 11/03/18 17:40 Dose: 30 mg Heparin Sodium (Porcine) (Heparin) 5,000 units SC Q8 [facility] Last Admin: 11/03/18 13:46 Dose: 5,000 units Meropenem 500 mg/ Sodium (Chloride) 100 mls @ 100 mls/hr IVPB Q8H [facility]; Protocol Last Admin: 11/03/18 13:47 Dose: 100 mls/hr Linezolid (Zyvox 600mg/300ml D5w) 600 mg in 300 mls @ 200 mls/hr IVPB Q12H [facility]; Protocol Last Admin: 11/03/18 17:39 Dose: 200 mls/hr Insulin Glargine (Lantus) 25 unit SC HS [facility] Last Admin: 11/02/18 22:25 Dose: 25 unit Insulin Human Regular (Novolin R) 0 unit SC ACHS [facility]; Protocol Last Admin: 11/03/18 17:40 Dose: 2 unit Metoprolol Tartrate (Lopressor) 50 mg PO BID [facility] Last Admin: 11/03/18 17:40 Dose: 50 mg Multivitamins (Hexavitamin) 1 tab PO DAILY [facility] Last Admin: 11/03/18 09:07 Dose: 1 tab Pantoprazole Sodium (Protonix Susp) 40 mg PO Q12 [facility] Last Admin: 11/03/18 09:07 Dose: 40 mg Sitagliptin Phosphate (Januvia) 50 mg PO DAILY [facility] Last Admin: 11/03/18 09:07 Dose: 50 mg - Labs Labs: 11/01/18 07:49 11/01/18 07:49
--- NOTE | 2018-11-03 18:45 | CP.PCM.PN ---
Subjective - Date & Time of Evaluation Date of Evaluation: 11/03/18 Time of Evaluation: 18:45 - Subjective Subjective: Status post lung biopsy. The results are pending No fever no chest pain noted. Mild respiratory tachypnea noted Chest is clear Regular heart sounds Status post pacemaker. Patient has a history of recurrent pneumonia. Recurrent infection now having bacteremia on antibiotic. We will discuss with ID for possible discharge plan tomorrow once the pathology is available. Objective - Vital Signs/Intake and Output Vital Signs (last 24 hours): Temp Pulse Resp BP Pulse Ox 98.5 F 70 18 128/67 100 11/03/18 16:55 11/03/18 16:55 11/03/18 16:55 11/03/18 16:55 11/03/18 16:55 Intake and Output: 11/03/18 11/03/18 06:59 18:59 Intake Total 320 780 Output Total 100 600 Balance 220 180 - Medications Medications: Current Medications Acetaminophen (Tylenol 650 Mg Supp) 650 mg [place] Q6 PRN PRN Reason: Fever >100.4 F Last Admin: 10/25/18 09:13 Dose: 650 mg Diltiazem HCl (Cardizem) 30 mg PO QID [facility] Last Admin: 11/03/18 17:40 Dose: 30 mg Heparin Sodium (Porcine) (Heparin) 5,000 units SC Q8 [facility] Last Admin: 11/03/18 13:46 Dose: 5,000 units Meropenem 500 mg/ Sodium (Chloride) 100 mls @ 100 mls/hr IVPB Q8H [facility]; Protocol Last Admin: 11/03/18 13:47 Dose: 100 mls/hr Linezolid (Zyvox 600mg/300ml D5w) 600 mg in 300 mls @ 200 mls/hr IVPB Q12H [facility]; Protocol Last Admin: 11/03/18 17:39 Dose: 200 mls/hr Insulin Glargine (Lantus) 25 unit SC HS [facility] Last Admin: 11/02/18 22:25 Dose: 25 unit Insulin Human Regular (Novolin R) 0 unit SC ACHS [facility]; Protocol Last Admin: 11/03/18 17:40 Dose: 2 unit Metoprolol Tartrate (Lopressor) 50 mg PO BID [facility] Last Admin: 11/03/18 17:40 Dose: 50 mg Multivitamins (Hexavitamin) 1 tab PO DAILY [facility] Last Admin: 11/03/18 09:07 Dose: 1 tab Pantoprazole Sodium (Protonix Susp) 40 mg PO Q12 [facility] Last Admin: 11/03/18 09:07 Dose: 40 mg Sitagliptin Phosphate (Januvia) 50 mg PO DAILY [facility] Last Admin: 11/03/18 09:07 Dose: 50 mg - Labs Labs: 11/01/18 07:49 11/01/18 07:49
--- NOTE | 2018-11-03 20:35 | CARD ---
APPROVED REPORT Date of service: 10/29/2018 EKG Measurement Heart [id number] <Conclusion> Normal sinus rhythm Incomplete right bundle branch block Minimal voltage criteria for LVH, may be normal variant Inferior infarct, age undetermined ST & T wave abnormality, consider lateral ischemia Abnormal ECG
[2018-11-03] MEDS: (Lantus) Insulin Glargine, Recombinant SC SCH (21:11)
--- NOTE | 2018-11-03 22:21 | CP.PCM.PN ---
Subjective - Date & Time of Evaluation Date of Evaluation: 11/03/18 Time of Evaluation: 22:21 - Subjective Subjective: CHIEF COMPLAINTS TODAY : AFEBRILE, ON IV ABX S/P BX LUNG BY IR 10/30/18-P ROS. on observation only. HEENT : N. Resp : No cough, wheezing ,pleuritic CP ,or hemoptysis Cardio : No anginal CP, PND, orthopnea, palpitation GI : No abd.pain, n/v ,diarrhea or GI bleeding . +VE PEG, NO MALFUNCTION, PEG SITE SLIGHTLY REDDENED. 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 Musculoskel : No joint swelling , Derm : No rash Psych : Normal affect. Ext : No swelling ,calf pain PE. Pt. is MOREawake in no distress. V.S As noted in the chart Head ,ear nose,throat and eyes : Normal. Neck : Supple with normal carotids. Lungs: DECREASED BREATH SOUNDS BASES. Heart : S1 & S2 normal with S4. No murmur. Abd : Soft non tender, +VE PEG IN PLACE, EXIT SITE SLIGHTLY REDDENED, with normal bowel sounds. Neuro : Moves all ext. with no localized deficit. Ext : No edema with intact pulses.Non tender calves Derm : No rashes or decubitus ulcer. LABS/RADIOLOGY: REPEAT BLOOD CULTURE 10/29/18 -VE X 3 DAYS URINE CULTURES -VE GROWTH Objective - Vital Signs/Intake and Output Vital Signs (last 24 hours): Temp Pulse Resp BP Pulse Ox 98.5 F 70 18 128/67 100 11/03/18 16:55 11/03/18 16:55 11/03/18 16:55 11/03/18 16:55 11/03/18 16:55 Intake and Output: 11/03/18 11/04/18 18:59 06:59 Intake Total 780 Output Total 600 Balance 180 - Medications Medications: Current Medications Acetaminophen (Tylenol 650 Mg Supp) 650 mg [place] Q6 PRN PRN Reason: Fever >100.4 F Last Admin: 10/25/18 09:13 Dose: 650 mg Diltiazem HCl (Cardizem) 30 mg PO QID [facility] Last Admin: 11/03/18 21:12 Dose: 30 mg Heparin Sodium (Porcine) (Heparin) 5,000 units SC Q8 [facility] Last Admin: 04/07/19 21:12 Dose: 5,000 units Meropenem 500 mg/ Sodium (Chloride) 100 mls @ 100 mls/hr IVPB Q8H [facility]; Protocol Last Admin: 11/03/18 21:21 Dose: 100 mls/hr Insulin Glargine (Lantus) 25 unit SC HS [facility] Last Admin: 11/03/18 21:11 Dose: 25 unit Insulin Human Regular (Novolin R) 0 unit SC ACHS [facility]; Protocol Last Admin: 11/03/18 21:04 Dose: Not Given Metoprolol Tartrate (Lopressor) 50 mg PO BID [facility] Last Admin: 11/03/18 17:40 Dose: 50 mg Multivitamins (Hexavitamin) 1 tab PO DAILY [facility] Last Admin: 11/03/18 09:07 Dose: 1 tab Pantoprazole Sodium (Protonix Susp) 40 mg PO Q12 [facility] Last Admin: 11/03/18 21:13 Dose: 40 mg Sitagliptin Phosphate (Januvia) 50 mg PO DAILY [facility] Last Admin: 11/03/18 09:07 Dose: 50 mg - Labs Labs: 11/01/18 07:49 11/01/18 07:49 Assessment and Plan (1) Gram negative septic shock Status: Acute (2) UTI (urinary tract infection) Status: Acute (3) Altered mental status Status: Acute (4) Leukocytosis Status: Acute (5) Gastrostomy tube in place Status: Acute (6) Diabetes 1.5, 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 DC iv ZYVOX 600 MG iv PIGGYBACK EVERY 12 HOURLY. 10/25/18 -11/03/18 BX LUNG MASS -DONE -RESULTS PENDING. PER PMD
[2018-11-04] MEDS: Meropenem 500 MG in Sodium Chloride 0.9% 100 ML IVPB SCH ×3 (06:22→21:21)
[2018-11-04] MEDS: (Novolin R) Insulin Human Regular 100 units/ml vial SC SCH ×4 (07:45→21:30)
[2018-11-04] MEDS: Pantoprazole 40 mg Susp UD PO SCH ×2 (10:36→21:24)
[2018-11-04] MEDS: Multiple Vitamins Tab PO SCH (10:37)
[2018-11-04] MEDS: (Lantus) Insulin Glargine, Recombinant SC SCH (21:25)
[2018-11-05] MEDS: Meropenem 500 MG in Sodium Chloride 0.9% 100 ML IVPB SCH ×3 (05:33→21:42)
[2018-11-05 07:23] LABS: BASO # 0.1 K/uL (0.0-0.2); EOS # 0.5 K/uL (0.0-0.7); MONO # 0.8 K/uL (0.0-0.8); NEUT # 7.3 K/uL (1.8-7.0)
[2018-11-05 07:49] LABS: ALB/GLOB RATIO 1.3 (1.0-2.1); ALBUMIN 3.8 g/dL (3.5-5.0); ALT/SGPT < 6 U/L (9-52); AST/SGOT 18 U/L (14-36); BILIRUBIN,DIRECT 0.4 mg/dL (0.0-0.4); BLOOD UREA NITROGEN 32 mg/dL (7-17); CALCIUM 10.4 mg/dl (8.6-10.4); GFR NON-AFRICAN AMERICAN > 60
[2018-11-05 08:13] LABS: BASO % 0.5 % (0.0-2.0); HEMOGLOBIN 10.7 g/dL (11.0-16.0); LYMPH # 1.1 K/uL (1.0-4.3); LYMPH % 11.2 % (20.0-40.0); MEAN CELL VOLUME 93.7 fL (81.0-99.0); MEAN CORPUSCULAR HEMOGLOBIN 31.8 pg (27.0-31.0); MEAN PLATELET VOLUME 7.8 fL (7.2-11.7); MONO % 8.5 % (0.0-10.0); NEUT % 74.8 % (50.0-75.0); NRBC % 0.4 % (0.0-2.0); RBC 3.37 Mil/uL (3.80-5.20); RED CELL DISTRIBUTION WIDTH 15.9 % (11.5-14.5); WHITE BLOOD COUNT 9.8 K/uL (4.8-10.8)
[2018-11-05] MEDS: (Novolin R) Insulin Human Regular 100 units/ml vial SC SCH ×4 (08:25→21:58)
[2018-11-05] MEDS: Multiple Vitamins Tab PO SCH (10:28)
[2018-11-05] MEDS: Pantoprazole 40 mg Susp UD PO SCH ×2 (10:29→21:44)
--- NOTE | 2018-11-05 17:37 | CP.PCM.PN ---
Subjective - Date & Time of Evaluation Date of Evaluation: 11/05/18 Time of Evaluation: 17:37 - Subjective Subjective: CHIEF COMPLAINTS TODAY : AFEBRILE, ON IV ABX FOR GRAM-VE SEPSIS S/P BX LUNG BY IR 10/30/18-P ROS. on observation only. HEENT : N. Resp : No cough, wheezing ,pleuritic CP ,or hemoptysis Cardio : No anginal CP, PND, orthopnea, palpitation GI : No abd.pain, n/v ,diarrhea or GI bleeding . +VE PEG, NO MALFUNCTION, PEG SITE SLIGHTLY REDDENED. 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 Musculoskel : No joint swelling , Derm : No rash Psych : Normal affect. Ext : No swelling ,calf pain PE. Pt. is MOREawake in no distress. V.S As noted in the chart Head ,ear nose,throat and eyes : Normal. Neck : Supple with normal carotids. Lungs: DECREASED BREATH SOUNDS BASES. Heart : S1 & S2 normal with S4. No murmur. Abd : Soft non tender, +VE PEG IN PLACE, EXIT SITE SLIGHTLY REDDENED, with normal bowel sounds. Neuro : Moves all ext. with no localized deficit. Ext : No edema with intact pulses.Non tender calves Derm : No rashes or decubitus ulcer. LABS/RADIOLOGY: REPEAT BLOOD CULTURE 10/29/18 -VE X 5 DAYS URINE CULTURES -VE GROWTH Objective - Vital Signs/Intake and Output Vital Signs (last 24 hours): Temp Pulse Resp BP Pulse Ox 98.3 F 79 18 158/69 H 100 11/05/18 16:00 11/05/18 16:00 11/05/18 16:00 11/05/18 16:00 11/05/18 16:00 Intake and Output: 11/05/18 11/05/18 06:59 18:59 Intake Total 420 Output Total 400 200 Balance -400 220 - Medications Medications: Current Medications Acetaminophen (Tylenol 650 Mg Supp) 650 mg [place] Q6 PRN PRN Reason: Fever >100.4 F Last Admin: 10/25/18 09:13 Dose: 650 mg Diltiazem HCl (Cardizem) 30 mg PO QID [facility] Last Admin: 11/05/18 14:16 Dose: 30 mg Heparin Sodium (Porcine) (Heparin) 5,000 units SC Q8 [facility] Last Admin: 11/05/18 14:19 Dose: 5,000 units Meropenem 500 mg/ Sodium (Chloride) 100 mls @ 100 mls/hr IVPB Q8H [facility]; Protocol Last Admin: 11/05/18 14:16 Dose: 100 mls/hr Insulin Glargine (Lantus) 25 unit SC HS [facility] Last Admin: 11/04/18 21:25 Dose: 25 unit Insulin Human Regular (Novolin R) 0 unit SC ACHS [facility]; Protocol Last Admin: 11/05/18 12:58 Dose: 2 unit Metoprolol Tartrate (Lopressor) 50 mg PO BID [facility] Last Admin: 11/05/18 10:29 Dose: 50 mg Multivitamins (Hexavitamin) 1 tab PO DAILY [facility] Last Admin: 11/05/18 10:28 Dose: 1 tab Pantoprazole Sodium (Protonix Susp) 40 mg PO Q12 [facility] Last Admin: 11/05/18 10:29 Dose: 40 mg Sitagliptin Phosphate (Januvia) 50 mg PO DAILY [facility] Last Admin: 11/05/18 10:29 Dose: 50 mg - Labs Labs: 11/05/18 07:07 11/05/18 07:07 Assessment and Plan (1) Gram negative septic shock Status: Acute (2) UTI (urinary tract infection) Status: Acute (3) Altered mental status Status: Acute (4) Leukocytosis Status: Acute (5) Gastrostomy tube in place Status: Acute (6) Diabetes 1.5, 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 SOURCE OF SEPSIS ? LUNG VS PT HAS HX OF RECURRENT PNEUMONIA/AND UTIS OFF iv ZYVOX 600 MG iv PIGGYBACK EVERY 12 HOURLY. 10/25/18 -11/03/18 BX LUNG MASS -DONE -RESULTS PENDING. PULMONARY TOILET PER PMD
[2018-11-05] MEDS: (Lantus) Insulin Glargine, Recombinant SC SCH (21:44)
[2018-11-06] MEDS: Meropenem 500 MG in Sodium Chloride 0.9% 100 ML IVPB SCH ×3 (05:58→21:52)
[2018-11-06] MEDS: (Novolin R) Insulin Human Regular 100 units/ml vial SC SCH ×4 (08:10→22:14)
[2018-11-06] MEDS: Multiple Vitamins Tab PO SCH (09:42)
[2018-11-06] MEDS: Pantoprazole 40 mg Susp UD PO SCH ×2 (09:42→21:53)
--- NOTE | 2018-11-06 16:39 | CP.PCM.PN ---
Subjective - Date & Time of Evaluation Date of Evaluation: 11/06/18 Time of Evaluation: 16:39 - Subjective Subjective: CHIEF COMPLAINTS TODAY : AFEBRILE, ON IV ABX FOR GRAM-VE SEPSIS S/P BX LUNG BY IR 10/30/18-P bx - report - not sufficient tissue ROS. on observation only. HEENT : N. Resp : No cough, wheezing ,pleuritic CP ,or hemoptysis Cardio : No anginal CP, PND, orthopnea, palpitation GI : No abd.pain, n/v ,diarrhea or GI bleeding . +VE PEG, NO MALFUNCTION, PEG SITE SLIGHTLY REDDENED. 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 Musculoskel : No joint swelling , Derm : No rash Psych : Normal affect. Ext : No swelling ,calf pain PE. Pt. is MOREawake in no distress. V.S As noted in the chart Head ,ear nose,throat and eyes : Normal. Neck : Supple with normal carotids. Lungs: BETTER AERATION DIMINISHED BS BASES Heart : S1 & S2 normal with S4. No murmur. Abd : Soft non tender, +VE PEG IN PLACE, EXIT SITE SLIGHTLY REDDENED, with normal bowel sounds. Neuro : Moves all ext. with no localized deficit. Ext : No edema with intact pulses.Non tender calves Derm : No rashes or decubitus ulcer. LABS/RADIOLOGY: REPEAT BLOOD CULTURE 10/29/18 -VE X 5 DAYS URINE CULTURES -VE GROWTH Objective Objective - Vital Signs/Intake and Output Vital Signs (last 24 hours): Temp Pulse Resp BP Pulse Ox 98.0 F 91 H 18 179/70 H 100 11/06/18 15:00 11/06/18 15:00 11/06/18 15:00 11/06/18 15:00 11/06/18 15:00 Intake and Output: 11/06/18 11/06/18 06:59 18:59 Intake Total 420 960 Output Total 750 150 Balance -330 810 - Medications Medications: Current Medications Acetaminophen (Tylenol 650 Mg Supp) 650 mg [place] Q6 PRN PRN Reason: Fever >100.4 F Last Admin: 10/25/18 09:13 Dose: 650 mg Diltiazem HCl (Cardizem) 30 mg PO QID [facility] Last Admin: 11/06/18 13:37 Dose: 30 mg Heparin Sodium (Porcine) (Heparin) 5,000 units SC Q8 [facility] Last Admin: 11/06/18 13:38 Dose: 5,000 units Meropenem 500 mg/ Sodium (Chloride) 100 mls @ 100 mls/hr IVPB Q8H [facility]; Protocol Last Admin: 11/06/18 13:37 Dose: 100 mls/hr Insulin Glargine (Lantus) 25 unit SC HS [facility] Last Admin: 11/05/18 21:44 Dose: 25 unit Insulin Human Regular (Novolin R) 0 unit SC ACHS [facility]; Protocol Last Admin: 11/06/18 11:49 Dose: 3 unit Metoprolol Tartrate (Lopressor) 50 mg PO BID [facility] Last Admin: 11/06/18 09:42 Dose: 50 mg Multivitamins (Hexavitamin) 1 tab PO DAILY [facility] Last Admin: 11/06/18 09:42 Dose: 1 tab Pantoprazole Sodium (Protonix Susp) 40 mg PO Q12 [facility] Last Admin: 11/06/18 09:42 Dose: 40 mg Sitagliptin Phosphate (Januvia) 50 mg PO DAILY [facility] Last Admin: 11/06/18 09:42 Dose: 50 mg - Labs Labs: 11/05/18 07:07 11/05/18 07:07 Assessment and Plan (1) Gram negative septic shock Status: Acute (2) UTI (urinary tract infection) Status: Acute (3) Altered mental status Status: Acute (4) Leukocytosis Status: Acute (5) Gastrostomy tube in place Status: Acute (6) Diabetes 1.5, 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 (DAY 12 TODAY ) SOURCE OF SEPSIS ? LUNG VS PT HAS HX OF RECURRENT PNEUMONIA/AND UTIS BX LUNG MASS -DONE -INCONCLUSIVE WILL DISCUSS WITH PMD ? REPEAT BX PULMONARY TOILET PER PMD
[2018-11-06] MEDS: (Lantus) Insulin Glargine, Recombinant SC SCH (21:52)
[2018-11-07] MEDS: Meropenem 500 MG in Sodium Chloride 0.9% 100 ML IVPB SCH ×3 (05:33→22:38)
[2018-11-07] MEDS: (Novolin R) Insulin Human Regular 100 units/ml vial SC SCH ×4 (08:11→21:46)
[2018-11-07] MEDS: Multiple Vitamins Tab PO SCH (10:24)
[2018-11-07] MEDS: Pantoprazole 40 mg Susp UD PO SCH ×2 (10:25→21:45)
[2018-11-07] MEDS: (Lantus) Insulin Glargine, Recombinant SC SCH (21:45)
--- NOTE | 2018-11-07 23:15 | CP.PCM.PN ---
Subjective - Date & Time of Evaluation Date of Evaluation: 11/07/18 Time of Evaluation: 23:15 - Subjective Subjective: CHIEF COMPLAINTS TODAY : AFEBRILE, MORE AWAKE ON IV ABX FOR GRAM-VE SEPSIS S/P BX LUNG BY IR 10/30/18-P bx - report - not sufficient tissue CASE DISCUSSED W PMD ? REPEAT BX ROS. on observation only HEENT : N. Resp : No cough, wheezing ,pleuritic CP ,or hemoptysis Cardio : No anginal CP, PND, orthopnea, palpitation GI : No abd.pain, n/v ,diarrhea or GI bleeding . +VE PEG, NO MALFUNCTION, PEG SITE SLIGHTLY REDDENED. 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 Musculoskel : No joint swelling , Derm : No rash Psych : Normal affect. Ext : No swelling ,calf pain PE. Pt. is MOREawake in no distress. V.S As noted in the chart Head ,ear nose,throat and eyes : Normal. Neck : Supple with normal carotids. Lungs: BETTER AERATION DIMINISHED BS BASES Heart : S1 & S2 normal with S4. No murmur. Abd : Soft non tender, +VE PEG IN PLACE, EXIT SITE SLIGHTLY REDDENED, with normal bowel sounds. Neuro : Moves all ext. with no localized deficit. Ext : No edema with intact pulses.Non tender calves Derm : No rashes or decubitus ulcer. LABS/RADIOLOGY: REPEAT BLOOD CULTURE 10/29/18 -VE X 5 DAYS URINE CULTURES -VE GROWTH Objective - Vital Signs/Intake and Output Vital Signs (last 24 hours): Temp Pulse Resp BP Pulse Ox 98.3 F 86 18 121/76 100 11/07/18 15:00 11/07/18 15:00 11/07/18 15:00 11/07/18 15:00 11/07/18 15:00 Intake and Output: 11/07/18 11/08/18 18:59 06:59 Intake Total 420 Output Total 400 350 Balance 20 -350 - Medications Medications: Current Medications Acetaminophen (Tylenol 650 Mg Supp) 650 mg [place] Q6 PRN PRN Reason: Fever >100.4 F Last Admin: 10/25/18 09:13 Dose: 650 mg Diltiazem HCl (Cardizem) 30 mg PO QID [facility] Last Admin: 11/07/18 21:45 Dose: 30 mg Heparin Sodium (Porcine) (Heparin) 5,000 units SC Q8 [facility] Last Admin: 11/07/18 21:45 Dose: 5,000 units Meropenem 500 mg/ Sodium (Chloride) 100 mls @ 100 mls/hr IVPB Q8H [facility]; Protocol Last Admin: 11/07/18 22:38 Dose: 100 mls/hr Insulin Glargine (Lantus) 25 unit SC HS [facility] Last Admin: 11/07/18 21:45 Dose: 25 unit Insulin Human Regular (Novolin R) 0 unit SC ACHS [facility]; Protocol Last Admin: 11/07/18 21:46 Dose: Not Given Metoprolol Tartrate (Lopressor) 50 mg PO BID [facility] Last Admin: 11/07/18 17:49 Dose: 50 mg Multivitamins (Hexavitamin) 1 tab PO DAILY [facility] Last Admin: 11/07/18 10:24 Dose: 1 tab Pantoprazole Sodium (Protonix Susp) 40 mg PO Q12 [facility] Last Admin: 11/07/18 21:45 Dose: 40 mg Sitagliptin Phosphate (Januvia) 50 mg PO DAILY [facility] Last Admin: 11/07/18 10:24 Dose: 50 mg - Labs Labs: 11/05/18 07:07 11/05/18 07:07 Assessment and Plan (1) Gram negative septic shock Status: Acute (2) UTI (urinary tract infection) Status: Acute (3) Altered mental status Status: Acute (4) Leukocytosis Status: Acute (5) Gastrostomy tube in place Status: Acute (6) Diabetes 1.5, 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 (DAY 13 TODAY ) SOURCE OF SEPSIS ? LUNG VS PT HAS HX OF RECURRENT PNEUMONIA/AND UTIS BX LUNG MASS -DONE -INCONCLUSIVE DISCUSSED WITH PMD ? REPEAT BX . WILL DISCUSS WITH FAMILY AND IR. PULMONARY TOILET PER PMD
[2018-11-08] MEDS: Meropenem 500 MG in Sodium Chloride 0.9% 100 ML IVPB SCH ×3 (05:20→21:37)
[2018-11-08] MEDS: (Novolin R) Insulin Human Regular 100 units/ml vial SC SCH ×3 (08:17→17:19)
[2018-11-08] MEDS: Pantoprazole 40 mg Susp UD PO SCH ×2 (10:35→21:37)
[2018-11-08] MEDS: Multiple Vitamins Tab PO SCH (10:36)
--- NOTE | 2018-11-08 19:48 | CP.PCM.PN ---
Subjective - Date & Time of Evaluation Date of Evaluation: 11/08/18 Time of Evaluation: 19:48 - Subjective Subjective: AFEBRILE, MORE AWAKE. NO SOB. ON IV ABX FOR GRAM-VE SEPSIS S/P BX LUNG BY IR 10/30/18-P bx - report - not sufficient tissue CASE DISCUSSED W PMD ? REPEAT BX Objective - Vital Signs/Intake and Output Vital Signs (last 24 hours): Temp Pulse Resp BP Pulse Ox 97.9 F 81 18 108/64 100 11/08/18 16:13 11/08/18 16:13 11/08/18 16:13 11/08/18 16:13 11/08/18 16:13 Intake and Output: 11/08/18 11/09/18 18:59 06:59 Intake Total 430 Balance 430 - Medications Medications: Current Medications Acetaminophen (Tylenol 650 Mg Supp) 650 mg [place] Q6 PRN PRN Reason: Fever >100.4 F Last Admin: 10/25/18 09:13 Dose: 650 mg Diltiazem HCl (Cardizem) 30 mg PO QID [facility] Last Admin: 11/08/18 17:19 Dose: 30 mg Heparin Sodium (Porcine) (Heparin) 5,000 units SC Q8 [facility] Last Admin: 11/08/18 13:25 Dose: 5,000 units Meropenem 500 mg/ Sodium (Chloride) 100 mls @ 100 mls/hr IVPB Q8H [facility]; Protocol Last Admin: 11/08/18 13:26 Dose: 100 mls/hr Insulin Glargine (Lantus) 25 unit SC HS [facility] Last Admin: 11/07/18 21:45 Dose: 25 unit Insulin Human Regular (Novolin R) 0 unit SC ACHS [facility]; Protocol Last Admin: 11/08/18 17:19 Dose: 3 unit Metoprolol Tartrate (Lopressor) 50 mg PO BID [facility] Last Admin: 11/08/18 17:19 Dose: 50 mg Multivitamins (Hexavitamin) 1 tab PO DAILY [facility] Last Admin: 11/08/18 10:36 Dose: 1 tab Pantoprazole Sodium (Protonix Susp) 40 mg PO Q12 [facility] Last Admin: 11/08/18 10:35 Dose: 40 mg Sitagliptin Phosphate (Januvia) 50 mg PO DAILY [facility] Last Admin: 11/08/18 10:35 Dose: 50 mg - Labs Labs: 11/05/18 07:07 11/05/18 07:07 - Constitutional Appears: No Acute Distress, Confused, Chronically Ill - Head Exam Head Exam: NORMAL INSPECTION - Eye Exam Eye Exam: EOMI, PERRL - ENT Exam ENT Exam: Normal Oropharynx - Neck Exam Neck Exam: Normal Inspection - Respiratory Exam Respiratory Exam: Decreased Breath Sounds, NORMAL BREATHING PATTERN - Cardiovascular Exam Cardiovascular Exam: Tachycardia, REGULAR RHYTHM, +S1, +S2 - GI/Abdominal Exam GI & Abdominal Exam: Soft, Normal Bowel Sounds (PEG IN PLACE) - Neurological Exam Neurological Exam: Awake, CN II-XII Intact - Psychiatric Exam Psychiatric exam: Flat Affect - Skin Skin Exam: Normal Color, Warm Assessment and Plan (1) Gram negative septic shock Status: Acute (2) UTI (urinary tract infection) Status: Acute (3) Altered mental status Status: Acute (4) Leukocytosis Status: Acute (5) Gastrostomy tube in place Status: Acute (6) Diabetes 1.5, 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 (DAY 14 TODAY ) SOURCE OF SEPSIS ? LUNG VS PT HAS HX OF RECURRENT PNEUMONIA/AND UTIS BX LUNG MASS -DONE -INCONCLUSIVE DISCUSSED WITH PMD ? REPEAT BX . WILL DISCUSS WITH FAMILY AND IR.
[2018-11-08] MEDS: (Lantus) Insulin Glargine, Recombinant SC SCH (21:37)
[2018-11-09] MEDS: Meropenem 500 MG in Sodium Chloride 0.9% 100 ML IVPB SCH ×3 (05:20→21:55)
[2018-11-09] MEDS: (Novolin R) Insulin Human Regular 100 units/ml vial SC SCH ×4 (08:33→21:57)
[2018-11-09] MEDS: Multiple Vitamins Tab PO SCH (11:07)
[2018-11-09] MEDS: Pantoprazole 40 mg Susp UD PO SCH ×2 (11:07→21:53)
--- NOTE | 2018-11-09 14:34 | CP.PCM.PN ---
Subjective - Date & Time of Evaluation Date of Evaluation: 11/09/18 Time of Evaluation: 14:34 - Subjective Subjective: AFEBRILE, TACHY HR 110/MIN MORE AWAKE. NO SOB. ON IV ABX FOR GRAM-VE SEPSIS S/P BX LUNG BY IR 10/30/18-P bx - report - not sufficient tissue CASE DISCUSSED W PMD ? REPEAT BX. WILL D/C IV ABX AFTER REPEAT BX . Objective - Vital Signs/Intake and Output Vital Signs (last 24 hours): Temp Pulse Resp BP Pulse Ox 98.2 F 110 H 20 154/80 H 99 11/09/18 10:58 11/09/18 10:58 11/09/18 10:58 11/09/18 10:58 11/09/18 10:58 Intake and Output: 11/09/18 11/09/18 06:59 18:59 Intake Total 960 Output Total 550 Balance 410 - Medications Medications: Current Medications Acetaminophen (Tylenol 650 Mg Supp) [address] [place] Q6 PRN PRN Reason: Fever >100.4 F Last Admin: 10/25/18 09:13 Dose: 650 mg Diltiazem HCl (Cardizem) 30 mg PO QID [facility] Last Admin: 11/09/18 14:21 Dose: 30 mg Heparin Sodium (Porcine) (Heparin) 5,000 units SC Q8 [facility] Last Admin: 11/09/18 14:21 Dose: 5,000 units Meropenem 500 mg/ Sodium (Chloride) 100 mls @ 100 mls/hr IVPB Q8H [facility]; Protocol Last Admin: 11/09/18 14:22 Dose: 100 mls/hr Insulin Glargine (Lantus) 25 unit SC HS [facility] Last Admin: 11/08/18 21:37 Dose: 25 unit Insulin Human Regular (Novolin R) 0 unit SC ACHS [facility]; Protocol Last Admin: 11/09/18 12:46 Dose: 3 unit Metoprolol Tartrate (Lopressor) 50 mg PO BID [facility] Last Admin: 11/09/18 11:07 Dose: 50 mg Multivitamins (Hexavitamin) 1 tab PO DAILY [facility] Last Admin: 11/09/18 11:07 Dose: 1 tab Pantoprazole Sodium (Protonix Susp) 40 mg PO Q12 [facility] Last Admin: 11/09/18 11:07 Dose: 40 mg Sitagliptin Phosphate (Januvia) 50 mg PO DAILY [facility] Last Admin: 11/09/18 11:07 Dose: 50 mg - Labs Labs: 11/05/18 07:07 11/05/18 07:07 - Constitutional Appears: No Acute Distress, Chronically Ill - Head Exam Head Exam: NORMAL INSPECTION - Eye Exam Eye Exam: EOMI, PERRL - ENT Exam ENT Exam: Normal Oropharynx - Neck Exam Neck Exam: Normal Inspection - Cardiovascular Exam Cardiovascular Exam: Tachycardia, REGULAR RHYTHM, +S1, +S2 - GI/Abdominal Exam GI & Abdominal Exam: Soft, Normal Bowel Sounds (+VE PEG) - Extremities Exam Extremities Exam: Normal Capillary Refill. absent: Calf Tenderness, Pedal Edema - Neurological Exam Neurological Exam: Awake - Psychiatric Exam Psychiatric exam: Flat Affect - Skin Skin Exam: Normal Color, Warm Assessment and Plan (1) Gram negative septic shock Status: Acute (2) UTI (urinary tract infection) Status: Acute (3) Altered mental status Status: Acute (4) Leukocytosis Status: Acute (5) Gastrostomy tube in place Status: Acute (6) Diabetes 1.5, managed as type 2 Status: Acute (7) Mass of left lung Status: Acute - Assessment and Plan (Free Text) Plan: CONTINUE iv MERREM 500 MG iv PIGGYBACK EVERY 8 HOURLY 10/25/18 SERRATIA MARSCENS BACTEREMIA. (DAY 15 TODAY ) WILL D/C ABX AFTER BX LUNG. BX LUNG MASS -DONE -INCONCLUSIVE DISCUSSED WITH PMD ? REPEAT BX . WILL DISCUSS WITH FAMILY AND IR.
[2018-11-09] MEDS: (Lantus) Insulin Glargine, Recombinant SC SCH (21:52)
[2018-11-10] MEDS: Meropenem 500 MG in Sodium Chloride 0.9% 100 ML IVPB SCH ×3 (05:49→22:08)
[2018-11-10] MEDS: (Novolin R) Insulin Human Regular 100 units/ml vial SC SCH ×4 (07:40→23:11)
[2018-11-10] MEDS: Pantoprazole 40 mg Susp UD PO SCH ×2 (10:39→22:09)
[2018-11-10] MEDS: Multiple Vitamins Tab PO SCH (10:40)
[2018-11-10] MEDS: (Lantus) Insulin Glargine, Recombinant SC SCH (22:09)
[2018-11-11] MEDS: Meropenem 500 MG in Sodium Chloride 0.9% 100 ML IVPB SCH ×3 (05:38→21:53)
[2018-11-11] MEDS: (Novolin R) Insulin Human Regular 100 units/ml vial SC SCH ×4 (08:32→21:52)
[2018-11-11] MEDS: Pantoprazole 40 mg Susp UD PO SCH ×2 (12:02→21:53)
[2018-11-11] MEDS: Multiple Vitamins Tab PO SCH (12:02)
--- NOTE | 2018-11-11 13:10 | CP.PCM.PN ---
Subjective - Date & Time of Evaluation Date of Evaluation: 11/08/18 Objective - Vital Signs/Intake and Output Vital Signs (last 24 hours): Temp Pulse Resp BP Pulse Ox 98.2 F 117 H 18 128/87 100 11/11/18 07:00 11/11/18 07:00 11/11/18 07:00 11/11/18 07:00 11/11/18 07:00 Intake and Output: 11/11/18 11/11/18 06:59 18:59 Intake Total 480 Output Total 750 Balance -270 - Medications Medications: Current Medications Acetaminophen (Tylenol 650 Mg Supp) 650 mg [place] Q6 PRN PRN Reason: Fever >100.4 F Last Admin: 10/25/18 09:13 Dose: 650 mg Diltiazem HCl (Cardizem) 30 mg PO QID [facility] Last Admin: 11/11/18 12:02 Dose: 30 mg Heparin Sodium (Porcine) (Heparin) 5,000 units SC Q8 [facility] Last Admin: 11/11/18 05:38 Dose: 5,000 units Meropenem 500 mg/ Sodium (Chloride) 100 mls @ 100 mls/hr IVPB Q8H [facility]; Protocol Last Admin: 11/11/18 05:38 Dose: 100 mls/hr Insulin Glargine (Lantus) 25 unit SC HS [facility] Last Admin: 11/10/18 22:09 Dose: 25 unit Insulin Human Regular (Novolin R) 0 unit SC ACHS [facility]; Protocol Last Admin: 11/11/18 12:52 Dose: 3 unit Metoprolol Tartrate (Lopressor) 50 mg PO BID [facility] Last Admin: 11/11/18 12:02 Dose: 50 mg Multivitamins (Hexavitamin) 1 tab PO DAILY [facility] Last Admin: 11/11/18 12:02 Dose: 1 tab Pantoprazole Sodium (Protonix Susp) 40 mg PO Q12 [facility] Last Admin: 11/11/18 12:02 Dose: 40 mg Sitagliptin Phosphate (Januvia) 50 mg PO DAILY [facility] Last Admin: 11/11/18 12:02 Dose: 50 mg - Labs Labs: 11/05/18 07:07 11/05/18 07:07
--- NOTE | 2018-11-11 13:10 | CP.PCM.DIS ---
Provider - Provider Date of Admission: 10/22/18 16:18 Attending physician: Luis Manuel Patel MD Consults: 10/23/18 01:37 Nursing Referral for Palliative Care Routine Comment: Physician Instructions: Reason For Exam: protocol 10/23/18 01:40 Social Work Referral Routine Comment: high ezra score Physician Instructions: Reason For Exam: protocol 10/23/18 01:58 Inpatient CREATIVE [employer] THERAPIST Core Measures Referral Routine Comment: Physician Instructions: Reason For Exam: history of CHF 10/25/18 18:24 Infectious Disease Consult Routine Comment: Consulting Provider: Efrem Cordova Consulting Physician: Efrem Cordova Reason for Consult: hypotension/infection 11/01/18 06:05 Nursing Referral for Wound Care Routine Comment: Physician Instructions: Reason For Exam: please assess sacral ulcer Hospital Course - Lab Results Lab Results: Micro Results 10/29/18 08:50 Blood-Venous Blood Culture - Final NO GROWTH AFTER 5 DAYS 10/29/18 08:50 Blood-Venous Gram Stain - Final TEST NOT PERFORMED 10/29/18 07:50 Blood-Venous Blood Culture - Final NO GROWTH AFTER 5 DAYS 10/29/18 07:50 Blood-Venous Gram Stain - Final TEST NOT PERFORMED 10/22/18 15:50 Blood-Venous S.aureus & Coag-Neg Staph PNA FISH - Final 10/22/18 15:50 Blood-Venous Blood Culture - Final Serratia Marcescens Lactobacillus Species 10/22/18 15:50 Blood-Venous Gram Stain - Final 10/27/18 06:36 Urine,Catheterized Urine Culture - Final No Growth (<1,000 CFU/ML) 10/22/18 16:10 Blood-Venous Blood Culture - Final NO GROWTH AFTER 5 DAYS 10/22/18 16:10 Blood-Venous Gram Stain - Final TEST NOT PERFORMED Most Recent Lab Values WBC 9.8 K/uL (4.8-10.8) 11/05/18 07:07 RBC 3.37 Mil/uL (3.80-5.20) L 11/05/18 07:07 Hgb 10.7 g/dL (11.0-16.0) L 11/05/18 07:07 Hct 31.6 % (34.0-47.0) L 11/05/18 07:07 MCV 93.7 fL (81.0-99.0) 11/05/18 07:07 MCH 31.8 pg (27.0-31.0) H 11/05/18 07:07 MCHC 34.0 g/dL (33.0-37.0) 11/05/18 07:07 RDW 15.9 % (11.5-14.5) H 11/05/18 07:07 Plt Count 254 K/uL (130-400) 11/05/18 07:07 MPV 7.8 fL (7.2-11.7) 11/05/18 07:07 Neut % (Auto) 74.8 % (50.0-75.0) 11/05/18 07:07 Lymph % (Auto) 11.2 % (20.0-40.0) L 11/05/18 07:07 [place] % (Auto) 8.5 % (0.0-10.0) 11/05/18 07:07 Eos % (Auto) 5.0 % (0.0-4.0) H 11/05/18 07:07 Baso % (Auto) 0.5 % (0.0-2.0) 11/05/18 07:07 Neut # (Auto) 7.3 K/uL (1.8-7.0) H 11/05/18 07:07 Lymph # (Auto) 1.1 K/uL (1.0-4.3) 11/05/18 07:07 [place] # (Auto) 0.8 K/uL (0.0-0.8) 11/05/18 07:07 Eos # (Auto) 0.5 K/uL (0.0-0.7) 11/05/18 07:07 Baso # (Auto) 0.1 K/uL (0.0-0.2) 11/05/18 07:07 Neutrophils % (Manual) 79 % (50-75) H 10/26/18 11:46 Band Neutrophils % 3 % (0-2) H 10/26/18 11:46 Lymphocytes % (Manual) 9 % (20-40) L 10/26/18 11:46 Monocytes % (Manual) 6 % (0-10) 10/26/18 11:46 Eosinophils % (Manual) 3 % (0-4) 10/26/18 11:46 Basophils % (Manual) 1 % (0-2) 10/22/18 12:51 Platelet Estimate Normal (NORMAL) 10/26/18 11:46 Anisocytosis (manual) Slight 10/26/18 11:46 pO2 17 mm/Hg (30-55) L 10/22/18 17:37 VBG pH 7.32 (7.32-7.43) 10/22/18 17:37 VBG pCO2 50 mmHg (40-60) 10/22/18 17:37 VBG HCO3 22.1 mmol/L 10/22/18 17:37 VBG Total CO2 27.3 mmol/L (22-28) 10/22/18 17:37 VBG O2 Sat (Calc) 27.7 % (40-65) L 10/22/18 17:37 VBG Base Excess -0.9 mmol/L (0.0-2.0) L 10/22/18 17:37 VBG Potassium 4.3 mmol/L (3.6-5.2) 10/22/18 17:37 Sodium 133.0 mmol/l (132-148) 10/22/18 17:37 Chloride 100.0 mmol/L (98-107) 10/22/18 17:37 Glucose 174 mg/dl (65-105) H 10/22/18 17:37 Lactate 2.2 mmol/L (0.7-2.1) H 10/22/18 17:37 Sodium 134 mmol/L (132-148) 11/05/18 07:07 Potassium 5.0 mmol/L (3.6-5.2) 11/05/18 07:07 Chloride 97 mmol/L (98-107) L 11/05/18 07:07 Carbon Dioxide 29 mmol/L (22-30) 11/05/18 07:07 Anion Gap 13 (10-20) 11/05/18 07:07 BUN 32 mg/dL (7-17) H 11/05/18 07:07 Creatinine 0.5 mg/dL (0.7-1.2) L 11/05/18 07:07 Est GFR ( Amer) > 60 11/05/18 07:07 Est GFR (Non-Af Amer) > 60 11/05/18 07:07 POC Glucose (mg/dL) 244 mg/dL (65-110) H 11/11/18 11:09 Random Glucose 161 mg/dL (65-105) H D 11/05/18 07:07 Calcium 10.4 mg/dl (8.6-10.4) 11/05/18 07:07 Phosphorus 3.7 mg/dL (2.5-4.5) 10/29/18 07:50 Magnesium 1.9 mg/dL (1.6-2.3) 10/29/18 07:50 Total Bilirubin 0.5 mg/dL (0.2-1.3) 11/05/18 07:07 Direct Bilirubin 0.4 mg/dL (0.0-0.4) 11/05/18 07:07 AST 18 U/L (14-36) 11/05/18 07:07 ALT < 6 U/L (9-52) L D 11/05/18 07:07 Alkaline Phosphatase 80 U/L (38-126) 11/05/18 07:07 Total Protein 6.7 g/dL (6.3-8.3) 11/05/18 07:07 Albumin 3.8 g/dL (3.5-5.0) 11/05/18 07:07 Globulin 2.9 gm/dL (2.2-3.9) 11/05/18 07:07 Albumin/Globulin Ratio 1.3 (1.0-2.1) 11/05/18 07:07 Venous Blood Potassium 4.3 mmol/L (3.6-5.2) 10/22/18 17:37 Urine Color Yellow (YELLOW) 10/27/18 06:36 Urine Clarity Clear (Clear) 10/27/18 06:36 Urine pH 7.0 (5.0-8.0) 10/27/18 06:36 Ur Specific [place] 1.011 (1.003-1.030) 10/27/18 06:36 Urine Protein 1+ mg/dL (NEGATIVE) H 10/27/18 06:36 Urine Glucose (UA) 3+ mg/dL (Normal) H 10/27/18 06:36 Urine Ketones Negative mg/dL (NEGATIVE) 10/27/18 06:36 Urine Blood Negative (NEGATIVE) 10/27/18 06:36 Urine Nitrate Negative (NEGATIVE) 10/27/18 06:36 Urine Bilirubin Negative (NEGATIVE) 10/27/18 06:36 Urine Urobilinogen Normal mg/dL (0.2-1.0) 10/27/18 06:36 Ur Leukocyte Esterase Trace [place]/uL (Negative) 10/27/18 06:36 Urine WBC (Auto) 14 /hpf (0-5) H 10/27/18 06:36 Urine RBC (Auto) 1 /hpf (0-3) 10/27/18 06:36 Ur Squamous Epith Cells 3 /hpf (0-5) 10/27/18 06:36 Urine Bacteria Few (<OCC) H 10/22/18 13:20 Urine Yeast (Budding) Few /hpf (NEGATIVE) H 10/22/18 13:20 Discharge Exam - Head Exam Head Exam: NORMAL INSPECTION Discharge Plan - Follow Up Plan Condition: STABLE Disposition: HOME/ ROUTINE Instructions: Cellulitis (DC) Referrals: Luis Manuel Patel MD [Staff Provider] -
--- NOTE | 2018-11-11 13:10 | CP.PCM.PN ---
Subjective - Date & Time of Evaluation Date of Evaluation: 11/09/18 Objective - Vital Signs/Intake and Output Vital Signs (last 24 hours): Temp Pulse Resp BP Pulse Ox 98.2 F 117 H 18 128/87 100 11/11/18 07:00 11/11/18 07:00 11/11/18 07:00 11/11/18 07:00 11/11/18 07:00 Intake and Output: 11/11/18 11/11/18 06:59 18:59 Intake Total 480 Output Total 750 Balance -270 - Medications Medications: Current Medications Acetaminophen (Tylenol 650 Mg Supp) 650 mg SC Q6 PRN PRN Reason: Fever >100.4 F Last Admin: 10/25/18 09:13 Dose: 650 mg Diltiazem HCl (Cardizem) 30 mg PO QID [facility] Last Admin: 11/11/18 12:02 Dose: 30 mg Heparin Sodium (Porcine) (Heparin) 5,000 units SC Q8 [facility] Last Admin: 11/11/18 05:38 Dose: 5,000 units Meropenem 500 mg/ Sodium (Chloride) 100 mls @ 100 mls/hr IVPB Q8H [facility]; Protocol Last Admin: 11/11/18 05:38 Dose: 100 mls/hr Insulin Glargine (Lantus) 25 unit SC HS [facility] Last Admin: 11/10/18 22:09 Dose: 25 unit Insulin Human Regular (Novolin R) 0 unit SC ACHS [facility]; Protocol Last Admin: 11/11/18 12:52 Dose: 3 unit Metoprolol Tartrate (Lopressor) 50 mg PO BID [facility] Last Admin: 11/11/18 12:02 Dose: 50 mg Multivitamins (Hexavitamin) 1 tab PO DAILY [facility] Last Admin: 11/11/18 12:02 Dose: 1 tab Pantoprazole Sodium (Protonix Susp) 40 mg PO Q12 [facility] Last Admin: 11/11/18 12:02 Dose: 40 mg Sitagliptin Phosphate (Januvia) 50 mg PO DAILY [facility] Last Admin: 11/11/18 12:02 Dose: 50 mg - Labs Labs: 11/05/18 07:07 11/05/18 07:07
[2018-11-11] MEDS: (Lantus) Insulin Glargine, Recombinant SC SCH (21:53)
[2018-11-12 04:51] VITALS: RESP 18
[2018-11-12] MEDS: Meropenem 500 MG in Sodium Chloride 0.9% 100 ML IVPB SCH ×2 (05:58→13:44)
[2018-11-12 07:56] LABS: BASO # 0.1 K/uL (0.0-0.2); BASO % 1.1 % (0.0-2.0); EOS # 0.9 K/uL (0.0-0.7); EOS % 7.6 % (0.0-4.0); HEMOGLOBIN 11.5 g/dL (11.0-16.0); LYMPH # 1.8 K/uL (1.0-4.3); LYMPH % 14.9 % (20.0-40.0); MEAN CELL VOLUME 93.8 fL (81.0-99.0); MEAN CORPUSCULAR HEMOGLOBIN 35.3 pg (27.0-31.0); MEAN CORPUSCULAR HGB CONC 37.6 g/dL (33.0-37.0); MEAN PLATELET VOLUME 7.3 fL (7.2-11.7); MONO # 1.2 K/uL (0.0-0.8); MONO % 9.9 % (0.0-10.0); NEUT # 8.1 K/uL (1.8-7.0); NEUT % 66.5 % (50.0-75.0); NRBC % 0.1 % (0.0-2.0); RBC 3.27 Mil/uL (3.80-5.20); RED CELL DISTRIBUTION WIDTH 16.5 % (11.5-14.5); WHITE BLOOD COUNT 12.2 K/uL (4.8-10.8)
[2018-11-12 08:10] LABS: BLOOD UREA NITROGEN 44 mg/dL (7-17); CALCIUM 10.7 mg/dl (8.6-10.4); GFR NON-AFRICAN AMERICAN > 60
[2018-11-12] MEDS: Pantoprazole 40 mg Susp UD PO SCH (09:09)
[2018-11-12] MEDS: Multiple Vitamins Tab PO SCH (09:09)
[2018-11-12] MEDS: (Novolin R) Insulin Human Regular 100 units/ml vial SC SCH ×3 (09:10→16:14)
[2018-11-12 15:34] VITALS: BP 114/64; PULSE 71; TEMP 97.8; O2SAT 100
== END 2018-11-12 19:30 | disposition home or self-care (01) | DRG 871 ==
LOC: C.ER 11:31 → C.9E 16:18 → C.5S 21:19
PROVIDERS: ADMIT Internal Medicine; ATTEND Internal Medicine
DX: A41.50 Gram-negative sepsis, unspecified (principal); J18.9 Pneumonia, unspecified organism; R65.21 Severe sepsis with septic shock; G93.41 Metabolic encephalopathy; N39.0 Urinary tract infection, site not specified; L03.90 Cellulitis, unspecified; E87.1 Hypo-osmolality and hyponatremia; I50.32 Chronic diastolic (congestive) heart failure; I48.92 Unspecified atrial flutter; J44.0 Chronic obstructive pulmonary disease with (acute) lower respiratory infection; E11.9 Type 2 diabetes mellitus without complications; Z93.1 Gastrostomy status; E78.00 Pure hypercholesterolemia, unspecified; E86.0 Dehydration; I11.0 Hypertensive heart disease with heart failure; I25.10 Atherosclerotic heart disease of native coronary artery without angina pectoris; I48.91 Unspecified atrial fibrillation; K21.9 Gastro-esophageal reflux disease without esophagitis; M06.9 Rheumatoid arthritis, unspecified; M81.0 Age-related osteoporosis without current pathological fracture; Z95.1 Presence of aortocoronary bypass graft; R91.1 Solitary pulmonary nodule

== ENCOUNTER 2018-12-01 19:06 | Inpatient (IN) | payer MEDICARE | END 2018-12-16 22:54 | disposition home or self-care (01) | DRG 947 | LOC: C.6T 12-02 01:20 → C.5S 12-11 04:20 → C.ER 19:06 → C.9E 23:02 | DX: R41.82 Altered mental status, unspecified (principal); G93.41 Metabolic encephalopathy; E87.1 Hypo-osmolality and hyponatremia; E78.5 Hyperlipidemia, unspecified; I25.10 Atherosclerotic heart disease of native coronary artery without angina pectoris; Z74.01 Bed confinement status; Z87.891 Personal history of nicotine dependence; Z93.1 Gastrostomy status; Z95.0 Presence of cardiac pacemaker; J44.9 Chronic obstructive pulmonary disease, unspecified; I50.9 Heart failure, unspecified; I11.0 Hypertensive heart disease with heart failure; K21.9 Gastro-esophageal reflux disease without esophagitis; M81.0 Age-related osteoporosis without current pathological fracture; M06.9 Rheumatoid arthritis, unspecified; Z16.24 Resistance to multiple antibiotics; Z95.5 Presence of coronary angioplasty implant and graft; E11.9 Type 2 diabetes mellitus without complications; N30.90 Cystitis, unspecified without hematuria; Z95.1 Presence of aortocoronary bypass graft ==